=== PATIENT | female | born 1930 | race Caucasian/White ===

== ENCOUNTER 2016-10-07 14:10 | Observation (INO) | payer MEDICARE ==
[~2016-10-07] VITALS: Ht 172.7 cm; Wt 76.2 kg
[~2016-10-07 14:10] MED LIST: ACET500C11 PO; AMIT25TA9 PO; ASP81CT PO; Acetaminophen PO; CALC1CAP21 PO; CCLB10TRX; CHOL5000 PO; CLOP75TA PO; CLOP75TA28 PO; ENXP40I.4 SC; GLUC-113 PO; GLUC-96 PO; HYDR-3714 PO; LSNP10T PO; LUTE40CA PO; METO-272 PO; METO25TA2 PO; MTP50T PO; MULT-305 PO; MULT1CAP27 PO; NF-ESOM40C; NIAC750T15 PO; OMEG-12 PO; OXYC-12 PO; POLY17PO23 PO; PRV20T PO; Tramadol Hcl PO; VIT1TABL93 PO; [UNRECOGNIZED DRUG - OTHER]
--- NOTE | 2016-10-07 15:09 | ED Fall/Injury ---
General Chief Complaint: Trauma-Non Activation Stated Complaint: INJ TO HEAD & HIP/FALL AT [facility] Source: patient Exam Limitations: no limitations History of Present Illness Time seen by provider: 15:07 Initial Comments Brought to ER by physical therapy staff with reports of a fall [facility]. Patient was walking in a heel-to-toe fashion when she lost her balance falling towards the right side. She struck the right side of the forehead on the ground where there is now a large ecchymosis. Her only anticoagulant is aspirin. There was no loss of consciousness. She denies headache or nausea. She has no neck pain. She denies paresthesias in either of her arms. She reports pain to the right hip as well. Occurred: just prior to arrival Severity: moderate Injuries/Pain Location: head Context: lost balance Loss of Consciousness: no loss of consciousness Associated Symptoms (Fall): No Abdominal Pain, No Chest Pain, No Confusion, No Dizziness, No Headache, No Lightheadedness, No Muscle Spasms, No Nausea/Vomiting , No Neck Pain Allergies and Home Medications Allergies Coded Allergies: atenolol (Unverified Adverse Reaction, Mild, DOSEN'T WANT, 03/29/07) codeine (Verified Adverse Reaction, Mild, NAUSEA, HEADACHE, 04/05/07) PT STATES REACTION IS NAUSEA, HEADACHE, AND MILD CHEST PAIN diltiazem (Unverified Adverse Reaction, Mild, DOESN'T WANT, 03/29/07) indomethacin (Unverified Adverse Reaction, Mild, DOESN'T WANT, 03/29/07) propranolol (Unverified Adverse Reaction, Mild, DOESN'T WANT, 03/29/07) Uncoded Allergies: NITROPATCH (Adverse Reaction, Mild, DOESN'T WANT, 03/29/07) Home Medications Amitriptyline Hcl 25 Mg Tab, 25 MG PO HS, #30 Prescribed by: SHANTANU MURRAY on 09/02/142117 Aspirin 81 Mg Tablet, 81 MG PO DAILY, (Reported) Clopidogrel Bisulfate 75 Mg Tablet, 75 MG PO HS, (Reported) Lisinopril 10 Mg Tablet, 10 MG PO DAILY, (Reported) Metoprolol Tartrate 25 Mg Tablet, 50 MG PO DAILY, #30 Prescribed by: SHANTANU MURRAY on 11/12/14 1512 Multivits W-Ca,Fe,Other Min 1 Each Tablet, 1 TAB PO DAILY, #30 Prescribed by: ANNI THOMPSON on 10/24/14 185 Polyethylene Glycol 17 Gm Pack, 17 GM PO DAILY, (Reported) [Acetaminophen] 500 MG TAB, 1,000 MG PO TID PRN for MILD PAIN, #100 Prescribed by: SHANTANU MURRAY on 11/12/14 1512 [Tramadol Hcl] 50 MG TAB, 100 MG PO BID PRN for MODERATE TO SEVERE PAIN, #30 Prescribed by: SHANTANU MURRAY on 11/12/14 1512 Constitutional: see HPI Eyes: No Symptoms Reported Ears, Nose, Mouth, Throat: no symptoms reported Respiratory: no symptoms reported Cardiovascular: no symptoms reported Genitourinary: no symptoms reported Musculoskeletal: see HPI Skin: no symptoms reported Psychiatric/Neurological: No Symptoms Reported Past Vixjrdd-Uxfggl-Pkcwlv Hx Immunizations Up To Date Tetanus Booster (TDap): Unknown Date of Pneumonia Vaccine: Mar 11, 2011 Date of Influenza Vaccine: Feb 06, 2013 Surgeries Surgeries: Adenoidectomy, Appendectomy, Gallbladder, Tonsillectomy Respiratory Hx Respiratory Disorders: No Cardiovascular Hx Cardiac Disorders: Yes (HEART STENT X1 IN 2013, STENTS X2 IN LEGS) Cardiac Disorders: Hypertension Neurological Hx Neurological Disorders: No Reproductive System Hx Reproductive Disorders: No Genitourinary Hx Genitourinary Disorders: Yes (Frequency) Gastrointestinal Hx Gastrointestinal Disorders: No Gastrointestinal Disorders: Gastroesophageal Reflux, Chronic Constipation, Diverticulosis, Gall Bladder Disease Musculoskeletal Hx Musculoskeletal Disorders: Yes (BACK PROBLEMS) Musculoskeletal Disorders: Arthritis, Chronic Back Pain, Fractures Endocrine Hx Endocrine Disorders: No HEENT HX ENT Disorders: Yes (Cataract removed from right eye) HEENT Disorders: Cataract Loss of Vision: Bilateral Hearing Impairment: Hard of Hearing Cancer Hx Cancer: No Psychosocial Hx Psychiatric Problems: No Integumentary HX Skin/Integumentary Disorder: Yes (Shingles) Blood Transfusions Hx Blood Disorders: No Family Medical History Family Medial History: Arthritis 19 MOTHER, Onset:Unknown Diabetes mellitus 19 FATHER, Onset:Unknown Myocardial infarction 19 FATHER, Onset:Unknown 19 MOTHER, Onset:Unknown Physical Exam Vital Signs Vital Sign - Last 12Hours 10/07/16 10/07/16 15:05 15:10 Temp 98.2 Pulse 70 Resp 16 B/P (MAP) 164/71 Pulse Ox 98 O2 Delivery Room Air Capillary Refill : General Appearance: WD/WN, no apparent distress HEENT: PERRL/EOMI, normal ENT inspection, TMs normal, pharynx normal Neck: non-tender, full range of motion, No tender lateral, No tender midline, other (full range of motion of the neck, no tenderness to palpation.) Cardiovascular: regular rate, rhythm, no murmur Respiratory: no respiratory distress, no accessory muscle use Gastrointestinal: normal bowel sounds, non tender, soft Extremities: normal range of motion, non-tender Neurologic/Psychiatric: alert, normal mood/affect, oriented x 3 Skin: normal color, warm/dry Progress/Results/Core Measures Results/Orders My Orders Orders - PHOEBE PULIDO APRN Pelvis (10/07/16 15:01) Hip, Right, 2 Views (10/07/16 15:01) Ct Head/Cervical Spine Wo (10/07/16 15:06) Vital Signs/I&O Vital Sign - Last 12Hours 10/07/16 10/07/16 15:05 15:10 Temp 98.2 98.2 Pulse 70 70 Resp 16 16 B/P (MAP) 164/71 164/71 (102) Pulse Ox 98 98 O2 Delivery Room Air Diagnostic Imaging Diagonstic Imaging: Xray, CT Comments NAME: KYLEE VALDES MED REC#: [id number] PT STATUS: REG ER : 1930 PHYSICIAN: PHOEBE PULIDO APRN ADMIT DATE: 10/07/16/ER Draft Date of Exam:10/07/16 CT HEAD/CERVICAL SPINE WO PROCEDURE: CT head and CT cervical spine without contrast. TECHNIQUE: Multiple contiguous axial images were obtained through the brain and cervical spine without the use of intravenous contrast. Sagittal and coronal reformations through the cervical spine were then performed. INDICATION: Fall. FINDINGS: CT head: There are periventricular and deep white matter hypodensities compatible with chronic microvascular ischemic changes. No intracranial hemorrhage. No brain edema or mass effect is seen. There is no hydrocephalus. No extra-axial fluid collection is noted. There is, however, a small right scalp hematoma. The calvarium and the visualized portions of the paranasal sinuses and orbits appear unremarkable. CT cervical spine: There is anterior translation of C4 over C5 of about 2 mm. The facet joints demonstrate satisfactory alignment. There is good alignment of the lateral masses of C1 and C2 and atlanto-occipital joints. There is no significant widening of the predental space. There is a complex fracture of C2 vertebral body with significant healing at this point compared to 2015 exam. There is a particularly deformity seen along the posterior margin of C2 and at the junction of the odontoid process with the body and lateral masses of C2. No acute fracture is evident. The paraspinal soft tissues appear grossly unremarkable. Fibrotic changes in the lung apices seen. IMPRESSION: CT head: No intracranial hemorrhage. There is a small right frontal scalp hematoma. CT cervical spine: Old fracture of C2 with remaining deformity. No acute fracture is seen. Dictated on workstation # [id number] Dict: 10/07/16 1545 Trans: 10/07/16 1558 CHAD [id number] Interpreted by: KAYDEN MARROQUIN MD Electronically signed by: X-rays show osteoarthritis of the right hip but no fracture. Departure Impression Impression: Primary Impression: Scalp hematoma Disposition: 01 HOME, SELF-CARE Condition: Stable Departure-Patient Inst. Decision time for Depature: 16:03 Referrals: KAVITA PHILIP MD (PCP/Family) Primary Care Physician Patient Instructions: HEMATOMA Add. Discharge Instructions: 1. Return to ER for any concerns such as worsening headache, nausea, dizziness or confusion 2. Follow-up with your doctor next week 3. All discharge instructions reviewed with patient and/or family. Voiced understanding. PHOEBE PULIDO APRN Oct 07, 2016 15:09
--- NOTE | 2016-10-07 15:43 | Diagnostic Imaging Report ---
EXAMINATION: Two views of the right hip. INDICATION: Right hip pain after fall. FINDINGS: There are moderate to severe degenerative changes with prominent joint space loss, subchondral sclerosis and prominent osteophytes. The right SI joint demonstrates degenerative sclerosis. There is an SFA stent partially visualized in the upper right thigh. No fracture, dislocation or radiopaque foreign body is seen otherwise. IMPRESSION: Moderate to severe right hip with osteoarthritis. Dictated by: Dictated on workstation # [id number]
--- NOTE | 2016-10-07 15:45 | Diagnostic Imaging Report ---
EXAMINATION: AP view of the pelvis. INDICATION: Right hip pain. FINDINGS: No fracture, dislocation or radiopaque foreign body is seen. There is a moderate to severe osteoarthritis of the right hip with significant joint space loss and prominent osteophytes with subchondral sclerosis. Mild degenerative changes in the left hip joint are seen. Mild degenerative sclerotic changes in the SI joints are noted, bilaterally. Surgical sutures projecting over the lower right side of the abdomen are noted. Bilateral SFA stents and left common femoral artery stent are seen. IMPRESSION: Bilateral hip osteoarthritis, moderate to severe on the right and mild on the left. Dictated by: Dictated on workstation # [id number]
--- NOTE | 2016-10-07 15:59 | Diagnostic Imaging Report ---
PROCEDURE: CT head and CT cervical spine without contrast. TECHNIQUE: Multiple contiguous axial images were obtained through the brain and cervical spine without the use of intravenous contrast. Sagittal and coronal reformations through the cervical spine were then performed. INDICATION: Fall. FINDINGS: CT head: There are periventricular and deep white matter hypodensities compatible with chronic microvascular ischemic changes. No intracranial hemorrhage. No brain edema or mass effect is seen. There is no hydrocephalus. No extra-axial fluid collection is noted. There is, however, a small right scalp hematoma. The calvarium and the visualized portions of the paranasal sinuses and orbits appear unremarkable. CT cervical spine: There is anterior translation of C4 over C5 of about 2 mm. The facet joints demonstrate satisfactory alignment. There is good alignment of the lateral masses of C1 and C2 and atlanto-occipital joints. There is no significant widening of the predental space. There is a complex fracture of C2 vertebral body with significant healing at this point compared to 2015 exam. There is a particularly deformity seen along the posterior margin of C2 and at the junction of the odontoid process with the body and lateral masses of C2. No acute fracture is evident. The paraspinal soft tissues appear grossly unremarkable. Fibrotic changes in the lung apices seen. IMPRESSION: CT head: No intracranial hemorrhage. There is a small right frontal scalp hematoma. CT cervical spine: Old fracture of C2 with remaining deformity. No acute fracture is seen. Dictated by: Dictated on workstation # [id number]
--- NOTE | 2016-10-07 16:46 | Diagnostic Imaging Report ---
EXAMINATION: Two views of the right femur. INDICATION: Fall. The patient is unable to bear weight on the right leg. FINDINGS: There is moderate to severe osteoarthritis in the right hip. No fracture is seen. SFA stent is noted. The knee joint appears grossly unremarkable. IMPRESSION: Moderate to severe right hip osteoarthritis. Dictated by: Dictated on workstation # [id number]
--- NOTE | 2016-10-07 16:48 | Diagnostic Imaging Report ---
PROCEDURE: CT right lower extremity without contrast. TECHNIQUE: Axially acquired CT was obtained through the right lower extremity without intravenous contrast. Coronal and sagittal reformations were also performed. INDICATION: Fall. Severe pain with the patient unable to bear weight. FINDINGS: There is severe right hip osteoarthritis with complete loss of cartilage along the posterior aspect of the joint and laterally. Significant subchondral sclerosis and geodes are seen with osteophyte formation seen. There is no fracture, subluxation or dislocation evident. There is a proximal SFA stent seen. IMPRESSION: Severe right hip osteoarthritis. No fracture is seen. If severe pain persists, consider MRI evaluation. Dictated by: Dictated on workstation # [id number]
[2016-10-07] MEDS ORDERED: HYDROcodone/APAP 5 MG/325 MG (LORTAB) TAB PO ONE (17:30)
[2016-10-07 19:25] VITALS: BP 188/71
[2016-10-07] MEDS ORDERED: HYDROcodone/APAP 5 MG/325 MG (LORTAB) TAB PO PRN (19:30)
[2016-10-07] MEDS ORDERED: CATHETER FLUSH 10 ML SYR IV PRN (19:30)
[2016-10-07] MEDS ORDERED: IBUPROFEN TABLET 200 MG TAB PO PRN (20:00)
[2016-10-07] MEDS ORDERED: ACETAMINOPHEN 500 MG TAB (TYLENOL) PO PRN (20:00)
[2016-10-07] MEDS ORDERED: ALPRAZolam 0.25 MG (XANAX) TAB PO PRN (20:00)
[2016-10-07] MEDS ORDERED: amLODIPine 2.5MG (NORVASC) TAB PO NR (20:00)
[2016-10-07] MEDS ORDERED: ONDANSETRON 4 MG/2 ML (SDV) Z0FRAN IVP PRN (20:00)
[2016-10-07] MEDS ORDERED: fentaNYL INJECTION 100 MCG/2 ML AMP IVP PRN (20:00)
[2016-10-07 20:22] LABS: BASOPHILS # (AUTO) 0.1 10^3/uL (0.0-0.1); BASOPHILS % (AUTO) 0 % (0-10); EOSINOPHILS # (AUTO) 0.1 10^3/uL (0.0-0.3); EOSINOPHILS % (AUTO) 1 % (0-10); LYMPHOCYTES # (AUTO) 1.2 X 10^3 (1.0-4.0); LYMPHOCYTES % (AUTO) 6 % (12-44); MEAN CORPUSCULAR HEMOGLOBIN 30 PG (25-34); MEAN CORPUSCULAR HGB CONC 33 G/DL (32-36); MEAN CORPUSCULAR VOLUME 93 FL (80-99); MEAN PLATELET VOLUME 10.6 FL (7.4-10.4); MONOCYTES # (AUTO) 1.6 X 10^3 (0.0-1.0); MONOCYTES % (AUTO) 8 % (0-12); NEUTROPHILS # (AUTO) 17.3 X 10^3 (1.8-7.8); NEUTROPHILS % (AUTO) 86 % (42-75); PLATELET COUNT 234 10^3/uL (130-400); RED BLOOD COUNT 4.51 10^6/uL (4.35-5.85); RED CELL DISTRIBUTION WIDTH 12.9 % (10.0-14.5); WHITE BLOOD COUNT 20.3 10^3/uL (4.3-11.0)
[2016-10-07 20:38] LABS: BAND NEUTROPHILS 3 %; BASOPHILS % (MANUAL) 0 %; EOSINOPHILS % (MANUAL) 1 %; LYMPHOCYTES % (MANUAL) 7 %; NEUTROPHILS % (MANUAL) 81 %
[2016-10-07 20:44] LABS: ALANINE AMINOTRANSFERASE 18 U/L (0-55); ALBUMIN 4.3 GM/DL (3.2-4.5); ANION GAP 13 MMOL/L (5-14); ASPARTATE AMINO TRANSFERASE 13 U/L (5-34); BILIRUBIN,TOTAL 0.4 MG/DL (0.1-1.0); BLOOD UREA NITROGEN 26 MG/DL (7-18); BUN/CREATININE RATIO 33 (0-20); CARBON DIOXIDE 20 MMOL/L (21-32); CHLORIDE 107 MMOL/L (98-107); GFR ESTIMATED > 60; GLUCOSE 104 MG/DL (70-105); HEMOLYSIS 10 (0-29); ICTERUS 0.8 (0-1.9); LIPEMIA 10 (0-49); POTASSIUM 4.3 MMOL/L (3.6-5.0); SODIUM 140 MMOL/L (135-145); TOTAL PROTEIN 7.1 GM/DL (6.4-8.2)
[2016-10-07] MEDS: CATHETER FLUSH 10 ML SYR IV SCH ×2 (21:00→22:00)
[2016-10-08] VITALS: BP 160/88
[2016-10-08] MEDS: HYDROcodone/APAP 5 MG/325 MG (LORTAB) TAB PO PRN ×3 (00:58→12:50)
[2016-10-08 04:00] VITALS: BP 168/86
[2016-10-08] MEDS: CATHETER FLUSH 10 ML SYR IV SCH ×2 (06:20→15:01)
[2016-10-08 07:06] LABS: BASOPHILS # (AUTO) 0.1 10^3/uL (0.0-0.1); BASOPHILS % (AUTO) 1 % (0-10); EOSINOPHILS # (AUTO) 0.3 10^3/uL (0.0-0.3); EOSINOPHILS % (AUTO) 3 % (0-10); LYMPHOCYTES # (AUTO) 1.2 X 10^3 (1.0-4.0); LYMPHOCYTES % (AUTO) 10 % (12-44); MEAN CORPUSCULAR HEMOGLOBIN 30 PG (25-34); MEAN CORPUSCULAR HGB CONC 32 G/DL (32-36); MEAN CORPUSCULAR VOLUME 93 FL (80-99); MEAN PLATELET VOLUME 11.3 FL (7.4-10.4); MONOCYTES # (AUTO) 1.5 X 10^3 (0.0-1.0); MONOCYTES % (AUTO) 13 % (0-12); NEUTROPHILS # (AUTO) 8.6 X 10^3 (1.8-7.8); NEUTROPHILS % (AUTO) 74 % (42-75); PLATELET COUNT 228 10^3/uL (130-400); RED BLOOD COUNT 4.24 10^6/uL (4.35-5.85); WHITE BLOOD COUNT 11.6 10^3/uL (4.3-11.0)
[2016-10-08 07:31] LABS: ALANINE AMINOTRANSFERASE 16 U/L (0-55); ALBUMIN 3.9 GM/DL (3.2-4.5); ANION GAP 12 MMOL/L (5-14); ASPARTATE AMINO TRANSFERASE 13 U/L (5-34); BILIRUBIN,TOTAL 0.4 MG/DL (0.1-1.0); BLOOD UREA NITROGEN 22 MG/DL (7-18); BUN/CREATININE RATIO 30 (0-20); CALCIUM 8.9 MG/DL (8.5-10.1); CARBON DIOXIDE 22 MMOL/L (21-32); CHLORIDE 105 MMOL/L (98-107); CREATININE SERUM 0.73 MG/DL (0.60-1.30); GFR ESTIMATED > 60; GLUCOSE 99 MG/DL (70-105); HEMOLYSIS 10 (0-29); ICTERUS 0.7 (0-1.9); LIPEMIA 7 (0-49); POTASSIUM 4.2 MMOL/L (3.6-5.0); SODIUM 139 MMOL/L (135-145); TOTAL PROTEIN 6.7 GM/DL (6.4-8.2)
[2016-10-08 08:00] VITALS: BP 192/77
[2016-10-08] MEDS ORDERED: amLODIPine 5 MG (NORVASC) TAB PO SCH (09:00)
--- NOTE | 2016-10-08 09:35 | Physical Therapy Evaluation ---
PT Evaluation-General Medical Diagnosis Admission Date Oct 07, 2016 at 18:17 Medical Diagnosis: fall, scalp hematoma Onset Date: Oct 07, 2016 Therapy Diagnosis Therapy Diagnosis: general debility and weakness Height/Weight Height (Feet): 5 Height (Inches): 8.00 Weight (Pounds): 168 Weight (Ounces): 0.0 Precautions Precautions/Isolations: Fall Prevention, Standard Precautions Weight Bear Status Weight Bearing Restriction: Weight Bearing/Tolerated Location Restriction: LE Bilateral Referral Physician: Kaylie Reason for Referral: Evaluation/Treatment Medical History Pertinent Medical History: Arthritis, CAD, COPD, Diverticulitis, Fractures, GERD, HTN, [place], Neuropathy Additional Medical History cervical reconstruction within the past year Current History fall at [facility]; walking heel to toe fashion and LOB to right Reviewed History: Yes Social History Home: Single Level Current Living Status: Alone Entry Into Home: Stairs With Railing PT Steps Into Home: 3 Prior/Core FIM Prior Level of Function Functional Mcdowell Measure 0=Not Assessed/NA 4=Minimal Assistance 1=Total Assistance 5=Supervision or Setup 2=Maximal Assistance 6=Modified Mcdowell 3=Moderate Assistance 7=Complete Mcdowell Bed Mobility: 6 Transfers (B,C,W/C) (FIM): 6 Gait: 6 PT Evaluation-Current Subjective Patient rates right hip pain 5/10 with meds issued prior. Agrees to PT. Pain Numeric Pain Scale: 5-Moderate Pain Location: Right Location Body Site: Hip Pain Description: Acute Objective Patient Orientation: Normal For Age Problem Solving: Good ROM/Strength ROM Lower Extremities bilateral LE WNL Strenght Lower Extremities right knee flexion 3/5, extension 3/5; hip flexion 3/5; ankle dorsi/ plantarflexion 4/5 left knee flexion 4/5, extension 4/5; hip flexion 4/5; ankle dorsi/ plantarflexion 4/5 Integumentary/Posture Integumentary refer to nursing notes Bowel Incontinence: No Bladder Incontinence: No Posture flexed head posture secondary to cervical surgery Neuromuscular (Tone, Coordination, Reflexes) grossly intact Sensory Vision: Functional Hearing: Functional Sensation Right Lower Extremit: Impaired Sensation Left Lower Extremity: Impaired Transfers Functional Mcdowell Measure 0=Not Assessed/NA 4=Minimal Assistance 1=Total Assistance 5=Supervision or Setup 2=Maximal Assistance 6=Modified Mcdowell 3=Moderate Assistance 7=Complete Mcdowell Transfers (B, C, W/C) (FIM): 5 Scootin Rollin Supine to/from Sit: 5 Sit to/from Stand: 5 Gait Mode of Locomotion: Walk Anticipated Mode of Locomotion: Walk Gait (FIM): 5 Distance: 200' x 2 Gait Level of Assist: 5 Gait Assistive Device: FWW Comments/Gait Description very slow, antalgic, functional Stairs Stairs (FIM): 2 #of Steps: 3 Level of Assist: 4 Assistive Device: Walker Balance Sitting Static: Normal Sitting Dynamic: Normal Standing Static: Normal Standing Dynamic: Normal Assessment/Needs 86 y.o. female, s/p fall at [facility], will benefit from short term skilled PT to address functional strength and mobility to improve current LOF and to safely return to home at maximum LOF. Rehab Potential: Good PT Flare Maker Goals Assisted Goals PT Flare Maker Goals Time Frame: Oct 15, 2016 Transfers (B,C,W/C) (FIM): 6 Gait (FIM): 6 Gait distance (FIM): 3=150 ft Gait Level of Assist: 6 Gait Assistive Device: FWW Stairs (FIM): 2 # of Steps: 3 Stairs Level Of Assist: 5 PT Plan Problem List Problem List: Activity Tolerance, Functional Strength, Gait Treatment/Plan Treatment Plan: Continue Plan of Care Treatment Plan: Bed Mobility, Education, Functional Activity [place], Functional Strength, Gait, Safety, Therapeutic Exercise, Transfers Treatment Duration: Oct 15, 2016 # of days/week 6 Visits Per Week: 11 Pt/Family Agrees w/Plan: Yes Safety Risks/Education Patient Education: Gait Training, Transfer Techniques, Steps, Safety Issues Teaching Recipient: Patient Teaching Methods: Demonstration, Discussion Response to Teaching: Verbalize Understanding, Return Demonstration Discharge Recommendations Therapy D/C Recommendations: Physical Therapy Home Care Time/GCodes Time In: 810 Time Out: 850 Total Billed Treatment Time: 40 Total Billed Treatment 1 visit EVHighC 25 min FA 15 min G Codes Necessary: Yes PT/OT Therapy GCodes Therapy Functional Limitation: Physical Therapy Test(s)/Tool used to determine: Level of Assistance Scale Functional Limitation-Current Charge Code: MOBCUR Modifier: CJ Functional Limitation-Goal Charge Code: MOBGOAL Modifier: BEBA CAMARGO PT Oct 08, 2016 09:35
--- NOTE | 2016-10-08 10:33 | History & Physical-Hospitalist ---
HPI History of Present Illness: HPI/Chief Complaint CC: Fall on Left Hip HPI: This is a 86 yoWF who was at the [facility] when she fell and injured her left hip. Pt cannot walk and lives at home alone. 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 The pain radiates from her knee to her hip CT was discussed and is normal Pt rates her pain at 8.5 Pt confirms Lisinopril and Aspirin and does not like morphine Pt feels that her walk with PT went well and she is glad she did not break anything Pt confirms living in a house and she takes about three steps up to get in. Pt states that she lives alone; her family is in [place] and [place]. Physical exam stable. Lungs sound perfect. Pt had a bit of difficulty leaning up for examination. Scribed by Flora Burnett under the direct supervision of Dr. Lott. Source: patient Exam Limitations: no limitations Date Seen 10/08/16 Time Seen by Provider: 09:45 Attending Physician Tashia Lott DO PCP Venkatesh Dobbins MD Referring Physician Date of Admission Oct 07, 2016 at 18:17 Home Medications & Allergies Home Medications Reviewed patient Home Medication Reconciliation Form Allergies Allergies Coded Allergies atenolol (Unverified Adverse Reaction, Mild, DOSEN'T WANT, 03/29/07) codeine (Verified Adverse Reaction, Mild, NAUSEA, HEADACHE, 04/05/07) PT STATES REACTION IS NAUSEA, HEADACHE, AND MILD CHEST PAIN diltiazem (Unverified Adverse Reaction, Mild, DOESN'T WANT, 03/29/07) indomethacin (Unverified Adverse Reaction, Mild, DOESN'T WANT, 03/29/07) propranolol (Unverified Adverse Reaction, Mild, DOESN'T WANT, 03/29/07) morphine (Verified Adverse Reaction, Unknown, 10/08/16) reports hearing things-reports she does not want to ever take. haS TOLERATED HYDROCODONE Uncoded Allergies NITROPATCH ( Adverse Reaction, Mild, DOESN'T WANT, 03/29/07) Past Sjuaumq-Yafetf-Ermvgx Hx Patient Social History Marrital Status: Employed/Student: retired Alcohol Use: Denies Use Recreational Drug Use: No Smoking Status: Never a Smoker Physical Abuse Screen: No Sexual Abuse: No Recent Foreign Travel: No Contact w/other who traveled: No Recent Hopitalizations: No Recent Infectious Disease Expo: No Immunizations Up To Date Tetanus Booster (TDap): Unknown Date of Pneumonia Vaccine: Nov 23, 2013 Date of Influenza Vaccine: Feb 06, 2013 Seasonal Allergies Seasonal Allergies: No Surgeries HX Surgeries: Yes Surgeries: Adenoidectomy, Appendectomy, Cardiac, Coronary Stent, Gallbladder, Orthopedic, Tonsillectomy, Vascular Surgery Respiratory Hx Respiratory Disorders: No Cardiovascular Hx Cardiovascular Disorders: Yes (HEART STENT X1 IN 2014, STENTS X2 IN LEGS) Cardiac Disorders: Coronary Artery Disease, Hypertension, Peripheral Vascular Neurological Hx Neurological Disorders: No Reproductive System : No Hx Reproductive Disorders: No Sexually Transmitted Disease: No HIV/AIDS: No Female Reproductive Disorders: Denies Genitourinary Hx Genitourinary Disorders: Yes (Frequency) Genitourinary Disorders: UTI-Chronic Gastrointestinal Hx Gastrointestinal Disorders: Yes Gastrointestinal Disorders: Gastroesophageal Reflux, Chronic Constipation, Diverticulosis, Gall Bladder Disease Musculoskeletal Hx Musculoskeletal Disorders: Yes (BACK PROBLEMS) Musculoskeletal Disorders: Arthritis, Chronic Back Pain, Fractures Endocrine Hx Endocrine Disorders: No HEENT HX ENT Disorders: Yes (Cataract removed from right eye) HEENT Disorders: Cataract Loss of Vision: Bilateral Hearing Impairment: Hard of Hearing Cancer Hx Cancer: No Psychosocial Hx Psychiatric Problems: No Integumentary HX Skin/Integumentary Disorder: Yes (Shingles) Blood Transfusions Hx Blood Disorders: No Family Medical History Family Hx: Arthritis 19 MOTHER, Onset:Unknown Diabetes mellitus 19 FATHER, Onset:Unknown Myocardial infarction 19 FATHER, Onset:Unknown 19 MOTHER, Onset:Unknown Review of Systems Date Seen by Provider: Oct 08, 2016 Time Seen by Provider: 09:45 Constitutional: see HPI, weakness EENTM: no symptoms reported Respiratory: no symptoms reported Cardiovascular: no symptoms reported Gastrointestinal: no symptoms reported Musculoskeletal: joint pain Skin: no symptoms reported Psychiatric/Neurological: No Symptoms Reported All Other Systems Reviewed Negative Unless Noted: Yes Physical Exam Physical Exam Vital Signs Vital Sign - Last 12Hours 10/07/16 10/07/16 15:05 15:10 Temp 98.2 Pulse 70 Resp 16 B/P (MAP) 164/71 Pulse Ox 98 O2 Delivery Room Air Capillary Refill : Less Than 3 Seconds General Appearance: No Apparent Distress, WD/WN, Chronically ill Eyes: Bilateral Eye Normal Inspection, Bilateral Eye PERRL HEENT: PERRL/EOMI, Normal ENT Inspection, Pharynx Normal Neck: Full Range of Motion, Normal Inspection, Non Tender, Supple, Carotid Bruit Respiratory: Chest Non Tender, Lungs Clear, Normal Breath Sounds, No Accessory Muscle Use, No Respiratory Distress Cardiovascular: Regular Rate, Rhythm, No Edema, No Gallop, No JVD, No Murmur, Normal Peripheral Pulses Gastrointestinal: Normal Bowel Sounds, No Organomegaly, No Pulsatile Mass, Non Tender, Soft Back: Normal Inspection, No CVA Tenderness, No Vertebral Tenderness Extremity: Normal Capillary Refill, Normal Inspection, Normal Range of Motion ( some decreased range of motion of left hip), Non Tender, No Calf Tenderness, No Pedal Edema Neurologic/Psychiatric: Alert, Oriented x3, No Motor/Sensory Deficits, Normal Mood/Affect Skin: Normal Color, Warm/Dry Lymphatic: No Adenopathy Results Results/Procedures Lab Laboratory Tests 10/07/16 20:10 10/08/16 06:13 Assessment/Plan Admission Diagnosis Assessment: Fall with subsequent hip pain unable to ambulate and lives alone Hypertension [id number] Leukocytosis due to stress response now nearly resolved 11,000 Chronic constipation Assessment and Plan Plan: In-pt rehab eval Reconcile home meds completed SCD's BP management Clinical Quality Measures DVT/VTE Risk/Contraindication: Risk Factor Score Per Nursin RFS Level Per Nursing on Admit: 2=Moderate TASHIA LOTT DO Oct 08, 2016 10:33
[2016-10-08] MEDS ORDERED: CYAN5000 SL (10:35)
[2016-10-08] MEDS ORDERED: LUTE40CA PO (10:35)
[2016-10-08] MEDS ORDERED: ASPI325T32 PO (10:35)
[2016-10-08] MEDS ORDERED: METO-272 PO (10:35)
[2016-10-08] MEDS ORDERED: LISI10TA2 PO (10:35)
[2016-10-08] MEDS ORDERED: GLUC-203 PO (10:35)
[2016-10-08] MEDS ORDERED: DOCU100C37 PO (10:35)
[2016-10-08] MEDS ORDERED: AMIT25TA9 PO (10:35)
[2016-10-08] MEDS ORDERED: MULT1TAB69 PO (10:35)
[2016-10-08] MEDS ORDERED: POLYETHYLENE GLYCOL 17 GM (MIRALAX) PACK PO PRN (10:45)
[2016-10-08 12:00] VITALS: BP 141/65
[2016-10-08 13:07] LABS: BILIRUBIN,URINE NEGATIVE (NEGATIVE); KETONES,URINE NEGATIVE (NEGATIVE); LEUKOCYTE ESTERASE ,URINE 3+ (NEGATIVE); NITRITE,URINE NEGATIVE (NEGATIVE); PH,URINE 6 (5-9); PROTEIN,URINE 1+ (NEGATIVE); UROBILINOGEN,URINE NORMAL (NORMAL)
--- NOTE | 2016-10-08 14:23 | Occupational Therapy Eval ---
OT Evaluation-General/PLF Medical Diagnosis Admission Date Oct 07, 2016 at 18:17 Medical Diagnosis: fall, scalp hematoma Onset Date: Oct 07, 2016 Therapy Diagnosis Therapy Diagnosis: weakness, decr functional mobility Height/Weight Height (Feet): 5 Height (Inches): 8.00 Weight (Pounds): 168 Weight (Ounces): 0.0 Precautions Precautions/Isolations: Fall Prevention, Standard Precautions Safety Interventions: Bed Exit Alarm Weight Bear Status Weight Bearing Restriction: Weight Bearing/Tolerated Location Restriction: LE Bilateral Referral Physician: Kaylie Referral Reason: Evaluation/Treatment Medical History Pertinent Medical History: Arthritis, CAD, COPD, Diverticulitis, Fractures, GERD, HTN, [place], Neuropathy Additional Medical History Cardiac stent 2014, leg stents x 2, chronic constipation, diverticulosis, gall bladder disease, chronic back pain, R eye cataract removal. Fall 2 years ago with cervical reconstruction. Pt had reported decreased peripheral vision on L side from childhood. Hard of hearing Current History [facility]. Head contusion, R hip pain. Scalp hematoma Reviewed History: Yes Social History Home: Single Level Current Living Status: Alone Entry Into Home: Stairs With Railing Steps Into Home: 3 ADL-Prior Level of Function ADL PLOF Comments Pt reported that she has been able to manage all of her basic self care needs prior to fall. She walked at home with no devices and was driving. 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 Pain reported 7-8 out of 10 but she just had pain meds. Pain not described. Appearance Alert, cooperative. Mental Status/Objective Patient Orientation: Person, Place, Time, Situation Attachments: Saline Lock, SCD's Current Glasses/Contacts: Yes Hand Dominance: Right Upper Extremity ROM L UE grossly WFL. R UE limited with shoulder flex to about 0 degrees. Rest is WFL Upper Extremity Strength Grossly 4/5 bilat except R shoulder 2/5 in flex/abd ADL-Treatment ADL-Current Pt reported she has been able to feed herself. She needed just a little help to get her shoulders off the bed and moved very slowly, inching feet toward EOB. She stood with SBA for safety, FWW. Pt walked very slowly, with small steps, SBA , FWW to bathroom. OT placed BSC over toilet because pt reported it was very difficult getting off taller toilet, vince with grab bar only on R side. She was able to manage clothing and hygiene with SBA, FWW. Pt walked to sink SBA, FWW to wash hands and brush teeth with SBA. Walked slowly and very carefully SBA, FWW to recliner and was able to sit SBA. Pt needed help to raise up the leg rest due to decreased functional use R shoulder. Pt left up in recliner, all needs met. Functional [place] Measure 0=Not Assessed/NA 4=Minimal Assistance 1=Total Assistance 5=Supervision or Setup 2=Maximal Assistance 6=Modified [place] 3=Moderate Assistance 7=Complete IndependenceIRFPAI Quality Coding Scale 6 Independent with activity with or without an assistive device 5 Patient requires set up or clean up by helper. Patient completes activity by themselves 4 Supervision or touching assist (CGA). [place] provide cues , steadying assist 3 The helper provides less than half the effort to complete the activity 2 The helper provides more than half the effort to complete the activity 1 Dependent. The helper does all the effort to complete an activity 7 Patient refused to complete or attempt activity 9 The patient did not perform the activity before the current illness or injury 88 Not attempted due to Medical conditions or safety concerns Grooming (FIM): 5 Toileting (FIM): 5 Transfers (B, C, W/C) (FIM): 4 Toilet/Commode Transfer (FIM): 5 All ADLs took longer than usual due to patient report of pain "right in my hip joint". Education OT Patient Education: Modified ADL techniques, Purpose of tx/functional activities, Rehab process, Transfer techniques, Use of adapted equipment Teaching Recipient: Patient Teaching Methods: Demonstration, Discussion Response to Teaching: Verbalize Understanding, Return Demonstration OT Shelter Goals Gill Box Fixer Goals Time Frame: Oct 15, 2016 Eating (FIM): 6 Grooming(FIM): 6 Bathing(FIM): 5 Upper Body Dressing(FIM): 5 Lower Body Dressing(FIM): 5 Toileting(FIM): 6 Toilet/Commode Transfer(FIM): 6 Shower Transfer(FIM): 5 Additional Goals: 2-Verbalize Understanding, 3-ImproveStrength/Desean 1=Demonstrate adherence to instructed precautions during ADL tasks. 2=Patient will verbalize/demonstrate understanding of assistive devices/ modifications for ADL. 3=Patient will improve strength/tolerance for activity to enable patient to perform ADL's. OT Education/Plan Problem List/Assessment Assessment: Decreased UE Strength, Dependent Transfers, Impaired Funct Balance , Impaired Self-Care Skills Pt would benefit from skilled OT to increase her independence in basic self care to allow her to safely return to her home to live safely Discharge Recommendations Plan/Recommendations: Continue POC Target Placement back home Treatment Plan/Plan of Care Treatment,Training & Education: Yes Patient would benefit from OT for education, treatment and training to promote independence in ADL's, mobility, safety and/or upper extremity function for ADL' s. Plan of Care: ADL Retraining, Functional Mobility, UE Funct Exercise/Act, UE Neuromus Re-Ed/Coord Treatment Duration: Oct 15, 2016 # of days/week 5 Visits Per Week: 5 Agreement: Yes Rehab Potential: Good Time/GCodes Start Time: 12:56 Stop Time: 13:30 Total Time Billed (hr/min): 34 Billed Treatment Time visit, 15 minutes evaluation, 19 minutes ADL PT/OT Therapy GCodes Therapy Functional Limitation: Physical Therapy Test(s)/Tool used to determine: Level of Assistance Scale Functional Limitation-Current Charge Code: MOBCUR Modifier: CJ Functional Limitation-Goal Charge Code: MOBGOAL Modifier: ZEINA ACUNA OT Oct 08, 2016 14:23
[2016-10-08] MEDS ORDERED: AMLO5TAB2 PO (14:56)
[2016-10-08] MEDS ORDERED: HYDR-3812 PO (14:56)
[2016-10-08] MEDS ORDERED: ALPR0.254 PO (14:56)
[2016-10-08] MEDS ORDERED: ONDA4VIA28 IVP (14:56)
[2016-10-08] MEDS ORDERED: FNT.05A2 IVP (14:56)
[2016-10-08] MEDS ORDERED: ACET-77 PO (14:56)
--- NOTE | 2016-10-08 15:07 | Physical Therapy Daily Note ---
PT Daily Note-Current Subjective Patient has increased c/o right hip/groin pain 8/10 with meds issued. Pain Numeric Pain Scale: 8 Location: Right Location Body Site: Hip Pain Description: Acute Mental Status Patient Orientation: Normal For Age Transfers Functional [place] Measure 0=Not Assessed/NA 4=Minimal Assistance 1=Total Assistance 5=Supervision or Setup 2=Maximal Assistance 6=Modified [place] 3=Moderate Assistance 7=Complete IndependenceIRFPAI Quality Coding Scale 6 Independent with activity with or without an assistive device 5 Patient requires set up or clean up by helper. Patient completes activity by themselves 4 Supervision or touching assist (CGA). [place] provide cues , steadying assist 3 The helper provides less than half the effort to complete the activity 2 The helper provides more than half the effort to complete the activity 1 Dependent. The helper does all the effort to complete an activity 7 Patient refused to complete or attempt activity 9 The patient did not perform the activity before the current illness or injury 88 Not attempted due to Medical conditions or safety concerns Transfers (B, C, W/C) (FIM): 5 Scootin Sit to/from Stand: 5 Gait Training Gait (FIM): 5 Distance (FIM): 3=150 ft Distance: 200' Gait Level of Assist: 5 Gait Persons Needed: 1 Gait Assistive Device: FWW very slow, step to gait sequence Exercises Seated Therapy Exercises: Ankle pumps, Long arc quads, Hip flexion Seated Reps: 20 (to increase mobility to improve gait) Assessment Patient progressing slowly. Patient was modified independent to independent PLOF with gross motor skills. From a PT standpoint, patient would benefit from a short stay in ARU to improve functional mobility to return safely to home. PT Hand Bulldozer Goals Care Home Goals PT Hand Bulldozer Goals Time Frame: Oct 15, 2016 Transfers (B,C,W/C) (FIM): 6 Gait (FIM): 6 Gait distance (FIM): 3=150 ft Gait Level of Assist: 6 Gait Assistive Device: FWW Stairs (FIM): 2 # of Steps: 3 Stairs Level Of Assist: 5 PT Plan Treatment/Plan Treatment Plan: Continue Plan of Care Treatment Plan: Bed Mobility, Education, Functional Activity [place], Functional Strength, Gait, Safety, Therapeutic Exercise, Transfers Treatment Duration: Oct 15, 2016 Visits Per Week: 11 Discharge Recommendations Therapy D/C Recommendations: Acute Rehab Time/GCodes Time In: 1335 Time Out: 1405 Total Billed Treatment Time: 30 Total Billed Treatment 1 visit EX 10 min GT 20 min PT/OT Therapy GCodes Therapy Functional Limitation: Physical Therapy Test(s)/Tool used to determine: Level of Assistance Scale Functional Limitation-Current Charge Code: MOBCUR Modifier: CJ Functional Limitation-Goal Charge Code: MOBGOAL Modifier: BEBA CAMARGO PT Oct 08, 2016 15:07
--- NOTE | 2016-10-08 15:16 | Physical Therapy Daily Note ---
PT Daily Note-Current Transfers Functional [place] Measure 0=Not Assessed/NA 4=Minimal Assistance 1=Total Assistance 5=Supervision or Setup 2=Maximal Assistance 6=Modified [place] 3=Moderate Assistance 7=Complete IndependenceIRFPAI Quality Coding Scale 6 Independent with activity with or without an assistive device 5 Patient requires set up or clean up by helper. Patient completes activity by themselves 4 Supervision or touching assist (CGA). [place] provide cues , steadying assist 3 The helper provides less than half the effort to complete the activity 2 The helper provides more than half the effort to complete the activity 1 Dependent. The helper does all the effort to complete an activity 7 Patient refused to complete or attempt activity 9 The patient did not perform the activity before the current illness or injury 88 Not attempted due to Medical conditions or safety concerns PT Fiberglass Technician Goals Fiberglass Technician Goals PT Residential Goals Time Frame: Oct 15, 2016 Transfers (B,C,W/C) (FIM): 6 Gait (FIM): 6 Gait distance (FIM): 3=150 ft Gait Level of Assist: 6 Gait Assistive Device: FWW Stairs (FIM): 2 # of Steps: 3 Stairs Level Of Assist: 5 PT Plan Treatment/Plan Treatment Plan: Discontinue PT Treatment Plan: Bed Mobility, Education, Functional Activity [place], Functional Strength, Gait, Safety, Therapeutic Exercise, Transfers Treatment Duration: Oct 15, 2016 Visits Per Week: 11 Time/GCodes Time In: 316 Time Out: 317 Total Billed Treatment Time: 1 Total Billed Treatment dc PT/OT Therapy GCodes Therapy Functional Limitation: Physical Therapy Test(s)/Tool used to determine: Level of Assistance Scale Functional Limitation-Current Charge Code: MOBCUR Modifier: CJ Functional Limitation-Goal Charge Code: MOBGOAL Modifier: CI Functional Limitation-D/C Charge Codes: MOBDC Modifier: BEBA CHOE PT Oct 08, 2016 15:16
[2016-10-08 15:45] VITALS: BP 141/65
[2016-10-08] MEDS ORDERED: meTOproloL SUCCINATE 50 MG (TOPROL XL) TAB PO SCH (21:00)
[2016-10-08] MEDS ORDERED: AMITRIPTYLINE 25 MG (ELAVIL) TAB PO SCH (21:00)
[2016-10-09] MEDS ORDERED: ASPIRIN E.C. 325 MG (ECOTRIN) TABLET PO SCH (09:00)
[2016-10-09] MEDS ORDERED: lisINopril 10 MG (PRINIVIL) TAB PO SCH (09:00)
[2016-10-09] MEDS ORDERED: MULTIVIT W/MINERALS TAB (THERAGRAN M) PO SCH (09:00)
[2016-10-09] MEDS ORDERED: DOCUSATE SODIUM 100 MG (COLACE) CAP PO SCH (09:00)
== END 2016-10-08 15:45 ==
LOC: EDUNIT# 14:10 → ER 14:13 → 4TH 18:17 → UNDOADMOB 18:17 → 4TH 19:20 → UNDODISOB 10-08 15:45
PROVIDERS: ADMIT Internal Medicine; ATTEND Internal Medicine
DX: S79.912A Unspecified injury of left hip, initial encounter (principal); S00.83XA Contusion of other part of head, initial encounter; I10 Essential (primary) hypertension; K21.9 Gastro-esophageal reflux disease without esophagitis; K59.09 Other constipation; D72.829 Elevated white blood cell count, unspecified; W19.XXXA Unspecified fall, initial encounter; Y92.238 Other place in hospital as the place of occurrence of the external cause
CPT/HCPCS: 36415; 70450; 72125; 72170; 73502; 73552; 73700; 80053; 81000; 85007; 85025; 85027; 87088; 99282; 99284; G0378

== ENCOUNTER 2016-10-08 15:23 | Inpatient (IN) | payer MEDICARE ==
[~2016-10-08] VITALS: Ht 172.7 cm; Wt 76.2 kg
[~2016-10-08 15:23] MED LIST changes: +ACET-77 PO; +ALPR0.254 PO; +AMLO5TAB2 PO; +ASPI325T32 PO; +CYAN5000 SL; +DOCU100C37 PO; +FNT.05A2 IVP; +GLUC-203 PO; +HYDR-3812 PO; +LISI10TA2 PO; +MULT1TAB69 PO; +ONDA4VIA28 IVP
[2016-10-08 16:00] VITALS: BP 132/72
[2016-10-08] MEDS ORDERED: ONDANSETRON 4 MG (ZOFRAN) ORAL DISSOLVE TAB PO PRN (16:00)
[2016-10-08] MEDS ORDERED: ALPRAZolam 0.25 MG (XANAX) TAB PO PRN (16:00)
--- NOTE | 2016-10-08 16:06 | Physical Therapy Evaluation ---
PT Evaluation-General Medical Diagnosis Admission Date October 08, 2016 Medical Diagnosis: fall/debility Onset Date: Oct 07, 2016 Therapy Diagnosis Therapy Diagnosis: generalized weakness/debility Height/Weight Height (Feet): 5 Height (Inches): 8.00 Weight (Pounds): 168 Weight (Ounces): 0.0 Precautions Precautions/Isolations: Standard Precautions Referral Physician: Gerald Reason for Referral: Evaluation/Treatment Medical History Pertinent Medical History: Arthritis, CAD, COPD, Diverticulitis, Fractures, GERD, HTN, [place], Neuropathy Additional Medical History cervical reconstruction Current History fall at [facility] resulting in right hip/groin pain Reviewed History: Yes Social History Home: Single Level Current Living Status: Alone Entry Into Home: Stairs With Railing PT Steps Into Home: 3 Prior/Core FIM Prior Level of Function Functional [place] Measure 0=Not Assessed/NA 4=Minimal Assistance 1=Total Assistance 5=Supervision or Setup 2=Maximal Assistance 6=Modified [place] 3=Moderate Assistance 7=Complete [place] Bed Mobility: 6 Transfers (B,C,W/C) (FIM): 6 Gait: 6 PT Evaluation-Current Subjective Patient c/o 8/10 right hip/groin pain. Pain Numeric Pain Scale: 8 Location: Right Location Body Site: Hip Pain Description: Acute Pt/Family Goals return to home at [facility] Objective Patient Orientation: Normal For Age Problem Solving: Good ROM/Strength ROM Lower Extremities bilateral LE WFL Strenght Lower Extremities right knee flexion 3/5, extension 3/5; hip flexion 3/5; ankle dorsi/ plantarflexion 4/5 left knee flexion/extension 4/5; hip flexion 4/5; ankle dorsi/plantarflexion 4/5 Integumentary/Posture Integumentary refer to nursing notes Bowel Incontinence: No Bladder Incontinence: No Posture cervical flexion Neuromuscular (Tone, Coordination, Reflexes) slightly diminished coordination this p.m. Sensory Vision: Wears Glasses Hearing: Functional Sensation Right Lower Extremit: Impaired Sensation Left Lower Extremity: Impaired Transfers Functional [place] Measure 0=Not Assessed/NA 4=Minimal Assistance 1=Total Assistance 5=Supervision or Setup 2=Maximal Assistance 6=Modified [place] 3=Moderate Assistance 7=Complete IndependenceIRFPAI Quality Coding Scale 6 Independent with activity with or without an assistive device 5 Patient requires set up or clean up by helper. Patient completes activity by themselves 4 Supervision or touching assist (CGA). [place] provide cues , steadying assist 3 The helper provides less than half the effort to complete the activity 2 The helper provides more than half the effort to complete the activity 1 Dependent. The helper does all the effort to complete an activity 7 Patient refused to complete or attempt activity 9 The patient did not perform the activity before the current illness or injury 88 Not attempted due to Medical conditions or safety concerns Transfers (B, C, W/C) (FIM): 4 Scootin Rollin Roll Left to Right (QC): 5 Supine to/from Sit: 4 Sit to/from Stand: 4 Sit to Lying (QC): 4 Lying to Sitting/Side of Bed(Q: 4 Sit to Stand (QC): 4 Chair/Gtj-xi-Tgvec Xfer(QC): 4 Car Transfer (QC): 88 (due to right groin pain) Gait Does the Patient Walk?: Yes Mode of Locomotion: Walk Anticipated Mode of Locomotion: Walk Gait (FIM): 5 Distance (FIM): 3=150 ft Walk 10 feet (QC): 4 Walk 50 ft with 2 Turns(QC): 4 Walk 150 ft (QC): 5 Walking 10ft/uneven surface-QC: 4 Distance: 150' Gait Level of Assist: 5 Gait Persons Needed: 1 Gait Assistive Device: FWW Comments/Gait Description very slow, antalgic right LE Stairs Stairs (FIM): 1 #of Steps: 1 Level of Assist: 4 1 Step (curb) (QC): 4 4 Steps (QC): 88 Assistive Device: Walker 12 Steps (QC): 9 patient is very fatigued this p.m. and unable to perform 4 steps. PT to address during treatment sessions. Balance Sitting Static: Normal Sitting Dynamic: Normal Standing Static: Normal Standing Dynamic: Normal Assessment/Needs 86 y.o. female, s/p fall at [facility] walking, will benefit from skilled PT to address functional strength and mobility to improve current LOF and to safely return to home at maximum LOF. Patient is limited due to right hip pain. Rehab Potential: Good PT Mcc Goals Hardware Engineering Manager Goals PT Hardware Engineering Manager Goals Time Frame: Oct 29, 2016 Transfers (B,C,W/C) (FIM): 6 Sit to Lying (QC): 6 Lying-Sitting on Side/Bed(QC): 6 Sit to Stand (QC): 6 Rollin Roll Left to Right (QC): 6 Chair/Nub-vn-Jtbpt Xfer(QC): 6 Car Transfer (QC): 6 Does the Patient Walk: Yes Gait (FIM): 6 Gait distance (FIM): 3=150 ft Distance: 250' Walk 10 feet (QC): 5 Walk 10ft-Uneven Surface(QC): 5 Walk 50ft with 2 Turns (QC): 5 Walk 150 ft (QC): 5 Gait Level of Assist: 6 Gait Assistive Device: FWW Does the Pt use WC or Scooter?: No Stairs (FIM): 2 # of Steps: 4 1 Step (curb) (QC): 5 4 Steps (QC): 5 12 Steps (QC): 9 Stairs Level Of Assist: 6 Picking up an Object (QC): 5 PT Plan Problem List Problem List: Activity Tolerance, Functional Strength, Gait, Transfer, Bed Mobility Treatment/Plan Treatment Plan: Continue Plan of Care Treatment Plan: Bed Mobility, Education, Functional Activity [place], Functional Strength, Group Therapy, Gait, Safety, Therapeutic Exercise, Transfers Treatment Duration: Oct 29, 2016 # of days/week 6 Visits Per Week: 11 Minutes/Day (M-F): 60-90 Minutes/Day (Sat/Rodriguez): PRN Pt/Family Agrees w/Plan: Yes Safety Risks/Education Patient Education: Safety Issues Teaching Recipient: Patient Teaching Methods: Discussion Response to Teaching: Verbalize Understanding Discharge Recommendations Therapy D/C Recommendations: Home Independently, Physical Therapy Home Care Time/GCodes Time In: 1540 Time Out: 1400 Total Billed Treatment Time: 20 Total Billed Treatment 1 visit EVMod 20 min BEBA ATKINS PT Oct 08, 2016 16:06
[2016-10-08] MEDS ORDERED: NON-FORMULARY MEDICATION 1 EA EA (Cyanocobalamin (Vitamin B-12) (Vitamin B-12) 5,000 MCG) SL SCH (16:15)
[2016-10-08 17:45] VITALS: BP 154/75
[2016-10-08] MEDS: IBUPROFEN TABLET 200 MG TAB PO PRN (19:53)
[2016-10-08] MEDS: POLYETHYLENE GLYCOL 17 GM (MIRALAX) PACK PO PRN (21:39)
[2016-10-08] MEDS: meTOproloL SUCCINATE 50 MG (TOPROL XL) TAB PO SCH (21:40)
[2016-10-08] MEDS: AMITRIPTYLINE 25 MG (ELAVIL) TAB PO SCH (21:40)
[2016-10-09] MEDS: MULTIVIT W/MINERALS TAB (THERAGRAN M) PO SCH (05:35)
[2016-10-09] MEDS: IBUPROFEN TABLET 200 MG TAB PO PRN ×2 (05:36→20:40)
[2016-10-09 05:53] VITALS: BP 147/76
[2016-10-09] MEDS: lisINopril 10 MG (PRINIVIL) TAB PO SCH (08:29)
[2016-10-09] MEDS: ASPIRIN E.C. 325 MG (ECOTRIN) TABLET PO SCH (08:29)
[2016-10-09] MEDS: amLODIPine 5 MG (NORVASC) TAB PO SCH (08:29)
[2016-10-09] MEDS: DOCUSATE SODIUM 100 MG (COLACE) CAP PO SCH (08:29)
[2016-10-09] MEDS ORDERED: NON-FORMULARY MEDICATION 1 EA EA (Glucosam/Chond/Hyalu/Cf Borate (Move Free Joint Health T PO SCH (09:00)
[2016-10-09] MEDS ORDERED: NON-FORMULARY MEDICATION 1 EA EA (Lutein 40 MG) PO SCH (09:00)
--- NOTE | 2016-10-09 10:00 | Physical Therapy Daily Note ---
PT Daily Note-Current Subjective Pt. agrees to Rx. States she feels confident she will meet her goals here on rehab. States she has pain in right hip at 7/10 but later states with activity this decreased to 5/10. Pt. state she sleeps in her recliner at home secondary to back pain in supine position. Pain Numeric Pain Scale: 5-Moderate Pain Location: Right Location Body Site: Hip Pain Description: Ache Appearance bruising to right face Mental Status Patient Orientation: Normal For Age Transfers Functional [place] Measure 0=Not Assessed/NA 4=Minimal Assistance 1=Total Assistance 5=Supervision or Setup 2=Maximal Assistance 6=Modified [place] 3=Moderate Assistance 7=Complete IndependenceIRFPAI Quality Coding Scale 6 Independent with activity with or without an assistive device 5 Patient requires set up or clean up by helper. Patient completes activity by themselves 4 Supervision or touching assist (CGA). [place] provide cues , steadying assist 3 The helper provides less than half the effort to complete the activity 2 The helper provides more than half the effort to complete the activity 1 Dependent. The helper does all the effort to complete an activity 7 Patient refused to complete or attempt activity 9 The patient did not perform the activity before the current illness or injury 88 Not attempted due to Medical conditions or safety concerns Transfers (B, C, W/C) (FIM): 4 Scootin Rollin Supine to/from Sit: 4 (assist CGA with RLE in to bed/out of bed) Sit to/from Stand: 5 sit to stand all with raised seated level Weight Bearing Weight Bearing Restriction: Weight Bearing/Tolerated Location Restriction: R LE Gait Training Does the Patient Walk?: Yes Gait (FIM): 4 Distance (FIM): 3=150 ft (x1,75x2) Gait Level of Assist: 4 Gait Persons Needed: 1 Gait Assistive Device: FWW heavy weight bearing on to FWW Exercises Supine Ex: Bridging, Ankle pumps, Quad Set, Rolling, Glut sets, Heel Slides, Short Arc Quads, Scooting, Straight leg raise, Hip abd/add Supine Reps: 15 Seated Therapy Exercises: Ankle pumps, Sit to stand, Long arc quads, Hip flexion Seated Reps: 12 Treatments toileted and donned brief and shoes with mod assist Assessment Current Status: Good Progress gives full effort, progressing well PT Maintenance Man Goals Usp Goals PT Usp Goals Time Frame: Oct 29, 2016 Transfers (B,C,W/C) (FIM): 6 Sit to Lying (QC): 6 Lying-Sitting on Side/Bed(QC): 6 Sit to Stand (QC): 6 Rollin Roll Left to Right (QC): 6 Chair/Szi-lj-Etebm Xfer(QC): 6 Car Transfer (QC): 6 Does the Patient Walk: Yes Gait (FIM): 6 Gait distance (FIM): 3=150 ft Distance: 250' Walk 10 feet (QC): 5 Walk 10ft-Uneven Surface(QC): 5 Walk 50ft with 2 Turns (QC): 5 Walk 150 ft (QC): 5 Gait Level of Assist: 6 Gait Assistive Device: FWW Does the Pt use WC or Scooter?: No Stairs (FIM): 2 # of Steps: 4 1 Step (curb) (QC): 5 4 Steps (QC): 5 12 Steps (QC): 9 Stairs Level Of Assist: 6 Picking up an Object (QC): 5 PT Plan Treatment/Plan Treatment Plan: Continue Plan of Care Treatment Plan: Bed Mobility, Education, Functional Activity [place], Functional Strength, Group Therapy, Gait, Safety, Therapeutic Exercise, Transfers Treatment Duration: Oct 29, 2016 Visits Per Week: 11 Minutes/Day (M-F): 60-90 Minutes/Day (Sat/Rodriguez): PRN Safety Risks/Education Patient Education: Gait Training, Transfer Techniques, Correct Positioning, Disease Process, Safety Issues Teaching Recipient: Patient Teaching Methods: Demonstration, Discussion Response to Teaching: Verbalize Understanding, Return Demonstration, Reinforcement Needed educated RE: safe turns, pt.with some LOB while turning Time/GCodes Time In: 820 Time Out: 950 Total Billed Treatment Time: 90 Total Billed Treatment 1,FA30m,EX30m,GT30m G Codes Necessary: DARRYL Felix SALES ADMINISTRATION SPECIALIST Oct 09, 2016 10:00
--- NOTE | 2016-10-09 11:00 | History & Physical-Hospitalist ---
HPI History of Present Illness: HPI/Chief Complaint CC: Medical management along with rehab following fall and severe right hip pain unable to ambulate HPI: This is an 86-year-old white female clinic patient of Dr. Dobbins's [place] presents following a fall with no fracture noted on the right where she was having pain on x-ray or CT scan but osteoarthritis appearing severe in the joint causing the patient to be unable to ambulate and she lives at home so she was stabilized on the acute medical floor and transferred to acute rehabilitation to [facility] prior to going home. Currently her bowels are moving she is requesting a DO NOT RESUSCITATE which order was placed and overall very appreciative of the fact that inpatient rehabilitation is available here to help her because she could not go home in the states she was in yesterday. Source: patient Date Seen 10/09/16 Time Seen by Provider: 10:30 Attending Physician Yang Duarte MD PCP Venkatesh Dobbins MD Referring Physician Date of Admission Oct 08, 2016 at 15:46 Home Medications & Allergies Home Medications Reviewed patient Home Medication Reconciliation Form Allergies Allergies Coded Allergies atenolol (Verified Allergy, Unknown, 10/08/16) codeine (Verified Allergy, Unknown, NAUSEA, 10/08/16) HEADACHE diltiazem (Verified Adverse Reaction, Mild, DOESN'T WANT, 10/08/16) indomethacin (Verified Adverse Reaction, Mild, DOESN'T WANT, 10/08/16) propranolol (Verified Adverse Reaction, Mild, DOESN'T WANT, 10/08/16) morphine (Verified Adverse Reaction, Unknown, 10/08/16) reports hearing things-reports she does not want to ever take. haS TOLERATED HYDROCODONE Uncoded Allergies NITROPATCH ( Adverse Reaction, Mild, DOESN'T WANT, 03/29/07) Past [id number] Hx Patient Social History Marrital Status: Employed/Student: retired Alcohol Use: Denies Use Recreational Drug Use: No Smoking Status: Never a Smoker Physical Abuse Screen: No Sexual Abuse: No Recent Foreign Travel: No Contact w/other who traveled: No Recent Hopitalizations: No Recent Infectious Disease Expo: No Immunizations Up To Date Tetanus Booster (TDap): Unknown Date of Pneumonia Vaccine: Nov 23, 2013 Date of Influenza Vaccine: Feb 06, 2013 Seasonal Allergies Seasonal Allergies: No Surgeries HX Surgeries: Yes Surgeries: Adenoidectomy, Appendectomy, Cardiac, Coronary Stent, Gallbladder, Orthopedic, Tonsillectomy, Vascular Surgery Respiratory Hx Respiratory Disorders: No Cardiovascular Hx Cardiovascular Disorders: Yes (HEART STENT X1 IN 2014, STENTS X2 IN LEGS) Cardiac Disorders: Coronary Artery Disease, High Cholesterol, Hypertension, Peripheral Vascular Neurological Hx Neurological Disorders: No Reproductive System Hx Reproductive Disorders: No Sexually Transmitted Disease: No HIV/AIDS: No Female Reproductive Disorders: Denies Genitourinary Hx Genitourinary Disorders: Yes (Frequency) Genitourinary Disorders: UTI-Chronic Gastrointestinal Hx Gastrointestinal Disorders: Yes Gastrointestinal Disorders: Gastroesophageal Reflux, Chronic Constipation, Diverticulosis, Gall Bladder Disease Musculoskeletal Hx Musculoskeletal Disorders: Yes (BACK PROBLEMS) Musculoskeletal Disorders: Arthritis, Chronic Back Pain, Fractures Endocrine Hx Endocrine Disorders: No HEENT HX ENT Disorders: Yes (Cataract removed from right eye) HEENT Disorders: Cataract Loss of Vision: Bilateral Hearing Impairment: Hard of Hearing Cancer Hx Cancer: No Psychosocial Hx Psychiatric Problems: No Integumentary HX Skin/Integumentary Disorder: Yes (Shingles) Blood Transfusions Hx Blood Disorders: No Family Medical History Family Hx: Arthritis 19 MOTHER, Onset:Unknown Diabetes mellitus 19 FATHER, Onset:Unknown Myocardial infarction 19 FATHER, Onset:Unknown 19 MOTHER, Onset:Unknown Review of Systems Date Seen by Provider: Oct 09, 2016 Time Seen by Provider: 10:30 Constitutional: no symptoms reported EENTM: no symptoms reported Respiratory: no symptoms reported Cardiovascular: no symptoms reported Gastrointestinal: no symptoms reported Genitourinary: no symptoms reported Musculoskeletal: joint pain (right hip pain) Skin: no symptoms reported Psychiatric/Neurological: No Symptoms Reported All Other Systems Reviewed Negative Unless Noted: Yes Physical Exam Physical Exam Vital Signs Vital Sign - Last 12Hours 10/08/16 16:00 Temp 98.6 Pulse 88 Resp 20 B/P (MAP) 132/72 Pulse Ox 95 O2 Delivery Room Air Capillary Refill : General Appearance: No Apparent Distress, WD/WN, Chronically ill Eyes: Bilateral Eye Normal Inspection, Bilateral Eye PERRL HEENT: PERRL/EOMI, Normal ENT Inspection, Pharynx Normal Neck: Full Range of Motion, Normal Inspection, Non Tender, Supple, Carotid Bruit Respiratory: Chest Non Tender, Lungs Clear, Normal Breath Sounds, No Accessory Muscle Use, No Respiratory Distress Cardiovascular: Regular Rate, Rhythm, No Edema, No Gallop, No JVD, No Murmur, Normal Peripheral Pulses Gastrointestinal: Normal Bowel Sounds, No Organomegaly, No Pulsatile Mass, Non Tender, Soft Back: Normal Inspection, No CVA Tenderness, No Vertebral Tenderness Extremity: Normal Capillary Refill, Normal Inspection, Normal Range of Motion ( of right hip), Non Tender, No Calf Tenderness, No Pedal Edema Neurologic/Psychiatric: Alert, Oriented x3, No Motor/Sensory Deficits, Normal Mood/Affect Skin: Normal Color, Warm/Dry Lymphatic: No Adenopathy Assessment/Plan Admission Diagnosis Assessment: Fall with subsequent right hip pain unable to ambulate and lives alone with 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
--- NOTE | 2016-10-09 11:46 | Occupational Therapy Eval ---
OT Evaluation-General/PLF Medical Diagnosis Admission Date Oct 08, 2016 at 15:46 Medical Diagnosis: fall/debility. scalp hematoma Onset Date: Oct 07, 2016 Therapy Diagnosis Therapy Diagnosis: weakness, decr funct mobility, decr self care Height/Weight Height (Feet): 5 Height (Inches): 8.00 Weight (Pounds): 168 Weight (Ounces): 0.0 Precautions Precautions/Isolations: Fall Prevention, Standard Precautions Safety Interventions: Reorient-PRN Weight Bear Status Weight Bearing Restriction: Weight Bearing/Tolerated Location Restriction: R LE Referral Physician: Gerald Referral Reason: Evaluation/Treatment Medical History Pertinent Medical History: Arthritis, CAD, COPD, Diverticulitis, Fractures, GERD, HTN, [place], Neuropathy Additional Medical History Cardiac stent 2013, leg stents x 2, chronic constipation, gall bladder disease, chronic back pain, R eye cataract removal. Fall 2 years ago with cervical reconstruction. Pt had reported decreased peripheral vision on L side from childhood. Hard of hearing Current History [facility]. R hip pain. Scalp hematoma Reviewed History: Yes Social History Home: Single Level Current Living Status: Alone Entry Into Home: Stairs With Railing Steps Into Home: 3 ADL-Prior Level of Function ADL PLOF Comments Pt reported that she has been able to manage all of her basic self care needs prior to the fall. She used a sock aid and has a dressing stick but doesn't use it. She walked at home with no devices and was driving. 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 Pain reported 6-7 and she said she ached from her neck to her knee on the R side. Appearance Alert, cooperative Mental Status/Objective Patient Orientation: Person, Place, Time, Situation Comprehension: 6 Expression: 6 Social Interaction: 6 Problem Solvin Memory: 5 (Cues to finish dressing lower body (pull pants up) before donning shirt) Current Hearing Aids: No Dentures/Partials: No Hand Dominance: Right Upper Extremity ROM L UE grossly WFL. R UE limited with shoulder flex/abd about 60 degrees. Rest is WFL Upper Extremity Coordination WFL Upper Extremity Strength Grossly 4/5 bilat except R shoulder 2/5 in flex/abd ADL-Treatment Functional [place] Measure 0=Not Assessed/NA 4=Minimal Assistance 1=Total Assistance 5=Supervision or Setup 2=Maximal Assistance 6=Modified [place] 3=Moderate Assistance 7=Complete IndependenceIRFPAI Quality Coding Scale 6 Independent with activity with or without an assistive device 5 Patient requires set up or clean up by helper. Patient completes activity by themselves 4 Supervision or touching assist (CGA). [place] provide cues , steadying assist 3 The helper provides less than half the effort to complete the activity 2 The helper provides more than half the effort to complete the activity 1 Dependent. The helper does all the effort to complete an activity 7 Patient refused to complete or attempt activity 9 The patient did not perform the activity before the current illness or injury 88 Not attempted due to Medical conditions or safety concerns Eating (FIM): 7 (Pt reported she has been able to feed herself. No dentures) Eating (QC): 6 Grooming (FIM): 5 (SBA at sink to brush teeth and hair, FWW. Washed face and hands in shower. Put on lipstick) Oral Hygiene (QC): 4 Bathing (FIM): 4 (Pt needed min assist to stand to wash dirk and bottom. Washed and dried all other parts including back and hair. Shower bench, grab bar , hand held shower.) Shower/Bathe Self (QC): 3 Upper Body Dressing (FIM): 5 (Dressed upper body with setup. No problem with buttons) Upper Body Dressing (QC): 5 Lower Body Dressing (FIM): 4 (Able to kick shoes off but not socks. Used sock aid to don socks and has elastic shoe laces so put shoes on herself (setup). Struggled a little to lift R foot to put in pants leg. Able to stand to pull pants up but struggles at midpoint between pushing up and reaching for walker. ) Lower Body Dressing (QC): 3 On/Off Footwear (QC): 4 Toileting (FIM): 5 (Able to manage clothing and hygiene. BSC over toilet so that she has arm rests to use to stand for clothing management. SBA when standing) Toileting Hygiene (QC): 4 Transfers (B, C, W/C) (FIM): 5 (Struggles a little between sitting and standing , FWW. Extra times. Rocks several times to get up, from taller lift chair) Toilet/Commode Transfer (FIM): 5 (SBA, BSC over toilet, for handles. Grab bar, FWW) Toilet Transfer (QC): 4 Shower Transfer (FIM): 4 (Min assist, especially when moving from sit to stand. Shower bench, grab bars, FWW) Pt left up in recliner, all needs met. All ADLs took longer than usual due to pt moving very slowly, especially when putting weight on R leg. Education OT Patient Education: Modified ADL techniques, Purpose of tx/functional activities, Rehab process, Safety issues, Transfer techniques, Use of adapted equipment Teaching Recipient: Patient Teaching Methods: Demonstration, Discussion Response to Teaching: Verbalize Understanding, Return Demonstration, Reinforcement Needed OT Short Term Goals Short Term Goals Time Frame: Oct 15, 2016 Bathing(FIM): 5 Lower Body Dressing(FIM): 5 Additional Short Term Goals: 2-Verbalize Understanding, 3-ImproveStrength/Desean 1=Demonstrate adherence to instructed precautions during ADL tasks. 2=Patient will verbalize/demonstrate understanding of assistive devices/ modifications for ADL. 3=Patient will improve strength/tolerance for activity to enable patient to perform ADL's. OT Intermediate Goals Salesperson Florist Supplies Goals Time Frame: Oct 22, 2016 Eating (FIM): 7 (No dentures) Eating (QC): 6 Groomin Oral Hygiene (QC): 6 Bathing(FIM): 6 Shower/Bathe Self (QC): 6 Upper Body Dressing(FIM): 6 Upper Body Dressing (QC): 6 Lower Body Dressing(FIM): 6 Lower Body Dressing (QC): 6 On/Off Footwear (QC): 6 Toileting(FIM): 6 Toileting Hygiene (QC): 6 Toilet/Commode Transfer(FIM): 6 Toilet/Commode Transfer (QC): 6 Shower Transfer(FIM): 6 Additional Goals: 2-Verbalize Understanding, 3-ImproveStrength/Desean 1=Demonstrate adherence to instructed precautions during ADL tasks. 2=Patient will verbalize/demonstrate understanding of assistive devices/ modifications for ADL. 3=Patient will improve strength/tolerance for activity to enable patient to perform ADL's. OT Education/Plan Problem List/Assessment Assessment: Decreased UE Strength, Dependent Transfers, Impaired Funct Balance , Impaired Self-Care Skills, Restricted Funct UE ROM Pt would benefit from skilled OT to increase her independence in basic self care to allow her to safely return home to live independently. Discharge Recommendations Plan/Recommendations: Continue POC Target Placement home Treatment Plan/Plan of Care Treatment,Training & Education: Yes Patient would benefit from OT for education, treatment and training to promote independence in ADL's, mobility, safety and/or upper extremity function for ADL' s. Plan of Care: ADL Retraining, Functional Mobility, Group Exercise/Act as Ind ( education, exercise, activity tolerance, functional activities, socialization), UE Funct Exercise/Act, UE Neuromus Re-Ed/Coord Treatment Duration: Oct 22, 2016 # of days/week 5-6 Visits Per Week: 10-11 Minutes/Day (M-F): 75-90 Minutes/Day (Sat/Rodriguez): PRN Agreement: Yes Rehab Potential: Good Time/GCodes Start Time: 10:00 Stop Time: 11:30 Total Time Billed (hr/min): 90 Billed Treatment Time visit, 15 minutes evaluation moderate intensity, 75 minutes ADL ZEINA CAMPOS OT Oct 09, 2016 11:46
--- NOTE | 2016-10-09 13:48 | PM&R Post Admission Assessment ---
Post Admission Physician Asses The preadmission screen agrees with the post admission assessment that the patient is a good candidate for inpatient rehabilitation. The patient will have a comprehensive program of inpatient rehabilitation with a goal of maximizing level of functional independence prior to discharge home with [facility]. The patient will have PT/OT ninety minutes per day, each discipline , five days a week for gait, strengthening, conditioning, balance, ADLs, any patient/family/caregiver training necessary. Speech therapy to do cognitive assessment and treat as indicated. Rehabilitation nursing to assist with bowel, bladder, skin, medication administration, pain management. Operator Engineer to assist with discharge planning, community reentry. SCD's for DVT prophylaxis. She appears to be well motivated to participate in three hours of therapy a day. She should be able to tolerate three hours of therapy a day from a medical standpoint. She should benefit from the three hours of therapy a day. She has a reasonable discharge plan, reasonable discharge rehabilitation goals and a supportive family. She has various comorbidities that need to be closely monitored with medications and treatments adjusted on a daily basis as needed. These include: Severe arthritic pain HTN Coronary artery D Hx of falls Barriers to discharge for this patient who had been independent prior to this are for her to be modified independent to supervision for ADLs and mobility skills prior to discharge home with [facility], so as to lessen the burden of the caregivers. Risks for this patient include: 1. Fall 2. Fracture 3. DVT 4. Pulmonary embolism 5. Poorly controlled HTN 6. Skin breakdown 7. Contractures 8. Poorly controlled pain 9. Urinary retention 10. UTI 11. Respiratory infection 12. Aspiration Estimated Length of Stay: 14 days Prognosis: Rehab prognosis appears good for goal of discharge home with [facility] modified independent to supervision for ADLs and mobility skills. Prior level of function : Modified Independent Current level of function :Minassist for Transfers and bed mobility and gait with walker Mod assist for Lower body drsssing and min assist for Upper body dressing SHANTANU MURRAY MD Oct 09, 2016 13:48
[2016-10-09 17:29] VITALS: BP 144/76
[2016-10-09] MEDS: meTOproloL SUCCINATE 50 MG (TOPROL XL) TAB PO SCH (20:39)
[2016-10-09] MEDS: AMITRIPTYLINE 25 MG (ELAVIL) TAB PO SCH (20:40)
[2016-10-10] MEDS: MULTIVIT W/MINERALS TAB (THERAGRAN M) PO SCH (06:29)
[2016-10-10 06:43] VITALS: BP 150/76
[2016-10-10] MEDS: ASPIRIN E.C. 325 MG (ECOTRIN) TABLET PO SCH (08:49)
[2016-10-10] MEDS: amLODIPine 5 MG (NORVASC) TAB PO SCH (08:49)
[2016-10-10] MEDS: DOCUSATE SODIUM 100 MG (COLACE) CAP PO SCH (08:49)
[2016-10-10] MEDS: lisINopril 10 MG (PRINIVIL) TAB PO SCH (08:49)
[2016-10-10] MEDS: IBUPROFEN TABLET 200 MG TAB PO PRN (10:47)
[2016-10-10 17:42] VITALS: BP 142/76
[2016-10-10] MEDS: AMITRIPTYLINE 25 MG (ELAVIL) TAB PO SCH (21:25)
[2016-10-10] MEDS: ACETAMINOPHEN 500 MG TAB (TYLENOL) PO PRN (21:25)
[2016-10-10] MEDS: meTOproloL SUCCINATE 50 MG (TOPROL XL) TAB PO SCH (21:25)
[2016-10-10] MEDS: POLYETHYLENE GLYCOL 17 GM (MIRALAX) PACK PO PRN (21:28)
[2016-10-11 05:53] VITALS: BP 151/62
[2016-10-11] MEDS: MULTIVIT W/MINERALS TAB (THERAGRAN M) PO SCH (06:34)
[2016-10-11] MEDS: ASPIRIN E.C. 325 MG (ECOTRIN) TABLET PO SCH (08:18)
[2016-10-11] MEDS: DOCUSATE SODIUM 100 MG (COLACE) CAP PO SCH (08:18)
[2016-10-11] MEDS: amLODIPine 5 MG (NORVASC) TAB PO SCH (08:18)
[2016-10-11] MEDS: HYDROcodone/APAP 5 MG/325 MG (LORTAB) TAB PO PRN ×2 (08:18→13:35)
[2016-10-11] MEDS: lisINopril 10 MG (PRINIVIL) TAB PO SCH (08:18)
[2016-10-11] MEDS: CYANOCOBALAMIN 500 MCG TAB (VITAMIN B-12) PO SCH (08:18)
--- NOTE | 2016-10-11 10:13 | Occupational Ther Daily Note ---
OT Current Status-Daily Note Subjective Pt seen in room, up in recliner, agreeable to OT. pain reported /10 in R hip. Nursing contacted re: meds per pt request. Appearance Alert, cooperative Mental Status/Objective Functional [place] Measure 0=Not Assessed/NA 4=Minimal Assistance 1=Total Assistance 5=Supervision or Setup 2=Maximal Assistance 6=Modified [place] 3=Moderate Assistance 7=Complete [place] ADL-Treatment Pt declined a bath today but did want to put clean clothes on. Functional [place] Measure 0=Not Assessed/NA 4=Minimal Assistance 1=Total Assistance 5=Supervision or Setup 2=Maximal Assistance 6=Modified [place] 3=Moderate Assistance 7=Complete IndependenceIRFPAI Quality Coding Scale 6 Independent with activity with or without an assistive device 5 Patient requires set up or clean up by helper. Patient completes activity by themselves 4 Supervision or touching assist (CGA). [place] provide cues , steadying assist 3 The helper provides less than half the effort to complete the activity 2 The helper provides more than half the effort to complete the activity 1 Dependent. The helper does all the effort to complete an activity 7 Patient refused to complete or attempt activity 9 The patient did not perform the activity before the current illness or injury 88 Not attempted due to Medical conditions or safety concerns Grooming (FIM): 5 (SBA standing at sink to brush teeth and wash hands. No LOB observed) Upper Body (FIM): 5 (Donned button-up shirt with setup. Donned shirt when standing, SBA) Lower Body Dressing (FIM): 4 (Pt educ use of dressing stick to don underwear and slacks. Pt reported she had a dressing stick at home but did not use it. She was able to get pants over feet. SBA when pulling pants up. Some difficulty with sit to stand at midpoint) Toileting (FIM): 5 (SBA to manage clothing and hygiene. BSC over toilet, grab bar, FWW. ) Toilet/Commode Transfer (FIM): 5 (SBA. BSC over toilet. Pt needs to rock forward several times to get up. gets stuck at midpoint in sit to stand) Pt walked very slowly to and from bathroom with SBA for safety, FWW. moving very slowly and deliberately. Pt left up in recliner, all needs met. Education OT Patient Education: Modified ADL techniques, Purpose of tx/functional activities, Use of adapted equipment Teaching Recipient: Patient Teaching Methods: Demonstration, Discussion Response to Teaching: Verbalize Understanding, Return Demonstration OT Short Term Goals Short Term Goals Time Frame: Oct 15, 2016 Bathing(FIM): 5 Lower Body Dressing(FIM): 5 Additional Short Term Goals: 2-Verbalize Understanding, 3-ImproveStrength/Desean 1=Demonstrate adherence to instructed precautions during ADL tasks. 2=Patient will verbalize/demonstrate understanding of assistive devices/ modifications for ADL. 3=Patient will improve strength/tolerance for activity to enable patient to perform ADL's. OT Fdc Goals Fish Flipper Goals Time Frame: Oct 22, 2016 Eating (FIM): 7 (No dentures) Eating (QC): 6 Groomin Oral Hygiene (QC): 6 Bathing(FIM): 6 Shower/Bathe Self (QC): 6 Upper Body Dressing(FIM): 6 Upper Body Dressing (QC): 6 Lower Body Dressing(FIM): 6 Lower Body Dressing (QC): 6 On/Off Footwear (QC): 6 Toileting(FIM): 6 Toileting Hygiene (QC): 6 Toilet/Commode Transfer(FIM): 6 Toilet/Commode Transfer (QC): 6 Shower Transfer(FIM): 6 Additional Goals: 2-Verbalize Understanding, 3-ImproveStrength/Desean 1=Demonstrate adherence to instructed precautions during ADL tasks. 2=Patient will verbalize/demonstrate understanding of assistive devices/ modifications for ADL. 3=Patient will improve strength/tolerance for activity to enable patient to perform ADL's. OT Education/Plan Problem List/Assessment Pt would benefit from skilled OT to increase her independence in basic self care to allow her to safely return home to live independently. Discharge Recommendations Plan/Recommendations: Continue POC Treatment Plan/Plan of Care Patient would benefit from OT for education, treatment and training to promote independence in ADL's, mobility, safety and/or upper extremity function for ADL' s. Plan of Care: ADL Retraining, Functional Mobility, Group Exercise/Act as Ind ( education, exercise, activity tolerance, functional activities, socialization), UE Funct Exercise/Act, UE Neuromus Re-Ed/Coord Treatment Duration: Oct 22, 2016 Visits Per Week: 10-11 Minutes/Day (M-F): 75-90 Minutes/Day (Sat/Rodriguez): PRN Agreement: Yes Rehab Potential: Good Time/GCodes Start Time: 09:30 Stop Time: 10:00 Total Time Billed (hr/min): 30 Billed Treatment Time visit, 30 min ZEINA EUGENE OT Oct 11, 2016 10:13
--- NOTE | 2016-10-11 12:03 | Physical Therapy Daily Note ---
PT Daily Note-Current Subjective Pt. state she is very sore this morning. Right hip pain at 6/10 but improves with activity. Pt. explains again her situation at home with bed and TRFs Pain Numeric Pain Scale: 6 Location: Right Location Body Site: Hip Pain Description: Ache Mental Status Patient Orientation: Normal For Age Transfers Functional [place] Measure 0=Not Assessed/NA 4=Minimal Assistance 1=Total Assistance 5=Supervision or Setup 2=Maximal Assistance 6=Modified [place] 3=Moderate Assistance 7=Complete IndependenceIRFPAI Quality Coding Scale 6 Independent with activity with or without an assistive device 5 Patient requires set up or clean up by helper. Patient completes activity by themselves 4 Supervision or touching assist (CGA). [place] provide cues , steadying assist 3 The helper provides less than half the effort to complete the activity 2 The helper provides more than half the effort to complete the activity 1 Dependent. The helper does all the effort to complete an activity 7 Patient refused to complete or attempt activity 9 The patient did not perform the activity before the current illness or injury 88 Not attempted due to Medical conditions or safety concerns Transfers (B, C, W/C) (FIM): 5 Scootin Rollin Supine to/from Sit: 5 Sit to/from Stand: 5 (from high surface) Bed to/from Chair: 5 Gait Training Does the Patient Walk?: Yes Gait (FIM): 5 Distance (FIM): 3=150 ft Gait Level of Assist: 5 Gait Persons Needed: 1 Gait Assistive Device: FWW slow, very careful, heavy weight bearing on UEs secondary to painful right hip Stair Training Stair Training: Handrails/: 2 handrails Stairs (FIM): 2 #of Steps: 4 Stairs: Pattern: Step to Level of Assist: 4 Exercises Supine Ex: Rolling, Heel Slides, Short Arc Quads, Hip abd/add Supine Reps: 12 Seated Therapy Exercises: Ankle pumps, Long arc quads, Hip flexion, Hip abd/add Seated Reps: 12 Assessment Current Status: Excellent Progress pt. has pain laying supine, doesnt slep in her bed for this reason. but did feel comfortable with LEs flexed at hips and knees PT Mechanical Engineering Officer Goals Mechanical Engineering Officer Goals PT Retirement Goals Time Frame: Oct 29, 2016 Transfers (B,C,W/C) (FIM): 6 Sit to Lying (QC): 6 Lying-Sitting on Side/Bed(QC): 6 Sit to Stand (QC): 6 Rollin Roll Left to Right (QC): 6 Chair/Azd-sn-Nitod Xfer(QC): 6 Car Transfer (QC): 6 Does the Patient Walk: Yes Gait (FIM): 6 Gait distance (FIM): 3=150 ft Distance: 250' Walk 10 feet (QC): 5 Walk 10ft-Uneven Surface(QC): 5 Walk 50ft with 2 Turns (QC): 5 Walk 150 ft (QC): 5 Gait Level of Assist: 6 Gait Assistive Device: FWW Does the Pt use WC or Scooter?: No Stairs (FIM): 2 # of Steps: 4 1 Step (curb) (QC): 5 4 Steps (QC): 5 12 Steps (QC): 9 Stairs Level Of Assist: 6 Picking up an Object (QC): 5 PT Plan Treatment/Plan Treatment Plan: Continue Plan of Care Treatment Plan: Bed Mobility, Education, Functional Activity [place], Functional Strength, Group Therapy, Gait, Safety, Therapeutic Exercise, Transfers Treatment Duration: Oct 29, 2016 Visits Per Week: 11 Minutes/Day (M-F): 60-90 Minutes/Day (Sat/Rodriguez): PRN Safety Risks/Education Patient Education: Gait Training, Transfer Techniques, Steps Teaching Recipient: Patient Teaching Methods: Demonstration, Discussion Response to Teaching: Verbalize Understanding, Return Demonstration, Reinforcement Needed Time/GCodes Time In: 1000 Time Out: 1100 Total Billed Treatment Time: 60 Total Billed Treatment 1FA30m,EX15m,GT15 G Codes Necessary: DARRYL Felix VALVE LAPPER Oct 11, 2016 12:03
--- NOTE | 2016-10-11 12:52 | Occupational Ther Daily Note ---
OT Current Status-Daily Note Subjective Pt seen in room, up in chair, agreeable to OT. Appearance Alert, cooperative Mental Status/Objective Functional [place] Measure 0=Not Assessed/NA 4=Minimal Assistance 1=Total Assistance 5=Supervision or Setup 2=Maximal Assistance 6=Modified [place] 3=Moderate Assistance 7=Complete [place] ADL-Treatment Pt toileted with SBA for safety, FWW, with BSC over toilet. SBA for safety to wash hands at sink. Functional [place] Measure 0=Not Assessed/NA 4=Minimal Assistance 1=Total Assistance 5=Supervision or Setup 2=Maximal Assistance 6=Modified [place] 3=Moderate Assistance 7=Complete IndependenceIRFPAI Quality Coding Scale 6 Independent with activity with or without an assistive device 5 Patient requires set up or clean up by helper. Patient completes activity by themselves 4 Supervision or touching assist (CGA). [place] provide cues , steadying assist 3 The helper provides less than half the effort to complete the activity 2 The helper provides more than half the effort to complete the activity 1 Dependent. The helper does all the effort to complete an activity 7 Patient refused to complete or attempt activity 9 The patient did not perform the activity before the current illness or injury 88 Not attempted due to Medical conditions or safety concerns Other Treatment Walked with SBA for safety, FWW to gym, moving very deliberately and slowly ( about 150 feet). In gym, pt did 12 minutes bilat UE exercise with arm bike set at 15W resistance, to strengthen arms to help with sit to stand. No breaks taken - pt worked at steady pace. Pt walked back to room SBA , FWW and was left up in recliner, all needs met. Education OT Patient Education: Progress toward Goal/Update tx plan, Transfer techniques Teaching Recipient: Patient Teaching Methods: Discussion Response to Teaching: Return Demonstration OT Short Term Goals Short Term Goals Time Frame: Oct 15, 2016 Bathing(FIM): 5 Lower Body Dressing(FIM): 5 Additional Short Term Goals: 2-Verbalize Understanding, 3-ImproveStrength/[place] 1=Demonstrate adherence to instructed precautions during ADL tasks. 2=Patient will verbalize/demonstrate understanding of assistive devices/ modifications for ADL. 3=Patient will improve strength/tolerance for activity to enable patient to perform ADL's. OT Compliance Engineer Goals Compliance Engineer Goals Time Frame: Oct 22, 2016 Eating (FIM): 7 (No dentures) Eating (QC): 6 Groomin Oral Hygiene (QC): 6 Bathing(FIM): 6 Shower/Bathe Self (QC): 6 Upper Body Dressing(FIM): 6 Upper Body Dressing (QC): 6 Lower Body Dressing(FIM): 6 Lower Body Dressing (QC): 6 On/Off Footwear (QC): 6 Toileting(FIM): 6 Toileting Hygiene (QC): 6 Toilet/Commode Transfer(FIM): 6 Toilet/Commode Transfer (QC): 6 Shower Transfer(FIM): 6 Additional Goals: 2-Verbalize Understanding, 3-ImproveStrength/[place] 1=Demonstrate adherence to instructed precautions during ADL tasks. 2=Patient will verbalize/demonstrate understanding of assistive devices/ modifications for ADL. 3=Patient will improve strength/tolerance for activity to enable patient to perform ADL's. OT Education/Plan Problem List/Assessment Pt would benefit from skilled OT to increase her independence in basic self care to allow her to safely return home to live independently. Discharge Recommendations Plan/Recommendations: Continue POC Treatment Plan/Plan of Care Patient would benefit from OT for education, treatment and training to promote independence in ADL's, mobility, safety and/or upper extremity function for ADL' s. Plan of Care: ADL Retraining, Functional Mobility, Group Exercise/Act as Ind ( education, exercise, activity tolerance, functional activities, socialization), UE Funct Exercise/Act, UE Neuromus Re-Ed/Coord Treatment Duration: Oct 22, 2016 Visits Per Week: 10-11 Minutes/Day (M-F): 75-90 Minutes/Day (Sat/Rodriguez): PRN Agreement: Yes Rehab Potential: Good Time/GCodes Start Time: 11:15 Stop Time: 11:45 Total Time Billed (hr/min): 30 Billed Treatment Time visit, 15 min functional activity, 15 minutes exercise ZEINA CAMPOS OT Oct 11, 2016 12:52
--- NOTE | 2016-10-11 14:16 | Occupational Ther Daily Note ---
OT Current Status-Daily Note Subjective Pt seen in room, agreeable to OT. Pain increased but not rated - described as aching in hip. Nursing notified Appearance Alert, cooperative Mental Status/Objective Functional [place] Measure 0=Not Assessed/NA 4=Minimal Assistance 1=Total Assistance 5=Supervision or Setup 2=Maximal Assistance 6=Modified [place] 3=Moderate Assistance 7=Complete [place] ADL-Treatment Pt toileted SBA, FWW, BSC over toilet. Managed clothing and hygiene with SBA. SBA at sink to wash hands. Functional [place] Measure 0=Not Assessed/NA 4=Minimal Assistance 1=Total Assistance 5=Supervision or Setup 2=Maximal Assistance 6=Modified [place] 3=Moderate Assistance 7=Complete IndependenceIRFPAI Quality Coding Scale 6 Independent with activity with or without an assistive device 5 Patient requires set up or clean up by helper. Patient completes activity by themselves 4 Supervision or touching assist (CGA). [place] provide cues , steadying assist 3 The helper provides less than half the effort to complete the activity 2 The helper provides more than half the effort to complete the activity 1 Dependent. The helper does all the effort to complete an activity 7 Patient refused to complete or attempt activity 9 The patient did not perform the activity before the current illness or injury 88 Not attempted due to Medical conditions or safety concerns Other Treatment Pt walked about 150 feet to gym, SBA, FWW (moving a little slower than this am) . Walking to help with getting to and from bathroom for toileting. In gym, pt did bilat UE exercise with1# exercise bar, working on gentle stretches for shoulders, especially R shoulder with old injury. Pt indicated that she usually worked on stretching her neck and shoulders [facility] Pt able to self manage stretches so that she didn't feel pain. Pt walked back to room, left up in recliner, all needs met. Education OT Patient Education: Exercise program, Purpose of tx/functional activities, Transfer techniques Teaching Recipient: Patient Teaching Methods: Discussion Response to Teaching: Verbalize Understanding OT Short Term Goals Short Term Goals Time Frame: Oct 15, 2016 Bathing(FIM): 5 Lower Body Dressing(FIM): 5 Additional Short Term Goals: 2-Verbalize Understanding, 3-ImproveStrength/[place] 1=Demonstrate adherence to instructed precautions during ADL tasks. 2=Patient will verbalize/demonstrate understanding of assistive devices/ modifications for ADL. 3=Patient will improve strength/tolerance for activity to enable patient to perform ADL's. OT Correction Goals Window Trimmer Apprentice Goals Time Frame: Oct 22, 2016 Eating (FIM): 7 (No dentures) Eating (QC): 6 Groomin Oral Hygiene (QC): 6 Bathing(FIM): 6 Shower/Bathe Self (QC): 6 Upper Body Dressing(FIM): 6 Upper Body Dressing (QC): 6 Lower Body Dressing(FIM): 6 Lower Body Dressing (QC): 6 On/Off Footwear (QC): 6 Toileting(FIM): 6 Toileting Hygiene (QC): 6 Toilet/Commode Transfer(FIM): 6 Toilet/Commode Transfer (QC): 6 Shower Transfer(FIM): 6 Additional Goals: 2-Verbalize Understanding, 3-ImproveStrength/[place] 1=Demonstrate adherence to instructed precautions during ADL tasks. 2=Patient will verbalize/demonstrate understanding of assistive devices/ modifications for ADL. 3=Patient will improve strength/tolerance for activity to enable patient to perform ADL's. OT Education/Plan Problem List/Assessment Pt would benefit from skilled OT to increase her independence in basic self care to allow her to safely return home to live independently. Discharge Recommendations Plan/Recommendations: Continue POC Treatment Plan/Plan of Care Patient would benefit from OT for education, treatment and training to promote independence in ADL's, mobility, safety and/or upper extremity function for ADL' s. Plan of Care: ADL Retraining, Functional Mobility, Group Exercise/Act as Ind ( education, exercise, activity tolerance, functional activities, socialization), UE Funct Exercise/Act, UE Neuromus Re-Ed/Coord Treatment Duration: Oct 22, 2016 Visits Per Week: 10-11 Minutes/Day (M-F): 75-90 Minutes/Day (Sat/Rodriguez): PRN Agreement: Yes Rehab Potential: Good Time/GCodes Start Time: 13:00 Stop Time: 13:30 Total Time Billed (hr/min): 30 Billed Treatment Time visit, 15 minutes functional activity, 15 minutes exercise ZEINA CAMPOS OT Oct 11, 2016 14:16
--- NOTE | 2016-10-11 15:23 | ST Cognitive Linguistic Eval ---
Speech Evaluation-General Medical Diagnosis fall/debility. scalp hematoma Onset Date: Oct 07, 2016 Therapy Diagnosis Therapy Diagnosis: Cognitive Linguistic Skills WNL Precautions Precautions/Isolations: Fall Prevention, Standard Precautions Referral Referring Physician: Dr. Yang Duarte Reason for Referral: Evaluation/Treatment Cognitive Linguistic Evaluation Medical History Pertinent Medical History: Arthritis, CAD, COPD, Diverticulitis, Fractures, GERD, HTN, HI, Neuropathy Reviewed History: Yes Social History Home: Multilevel Current Living Status: Alone Speech PLF-Current Status Prior Level of Function Per patient, "I can't remember people's names all of the time and every now and then I grope for a word but that's nothing new." The patient denied recent changes in cognition (memory, problem solving). Additionally, the patient stated, "no, there's nothing to work on here." Subjective The patient was recently admitted to [facility] following a fall (no fractures). The patient greeted the clinician appropriately and was agreeable to participation in the cognitive evaluation. Language Eval: Auditory Comprehends Simple Yes/No Ques: Functional Indent/Objects Multiple [place]: Functional Ident/Pics in Multiple Baker: Functional Follows 1-Step Commands: Functional Follows Complex Directions: Functional Follows General Conversations: Functional Language Eval: Verbal Language Completes Spontaneous Greeting: Functional Produces Auto, Serial Info: Functional Imitates Simple Words/Phrases: Functional Word Finding: Functional Requests Basic Needs: Functional States Basic Personal Info: Functional Expresses Complex Ideas: Functional Cognitive Patient Orientation The patient was oriented to name, location, city, month, day of week, date, and year. Objective Cognitive Domain Attention: WNL Memory: Mild Problem Solving: Functional Objective Impression The patient demonstrated cognitive linguistic skills grossly within normal limits. Communication/Social Cognition Comprehension: 6 Expression: 6 Social Interaction: 6 Problem Solvin Memory: 5 Speech Patient Assess Expression of Ideas/Wants: Expression (4) Understanding [place] Content: Usually Understands (3) Brief Interview-Mental Status: Yes Repetition of Three Words: Three (3) Temporal Orientation: Year: Correct (3) Temporal Orientation: Month: Accurate within 5 days(2) Temporal Orientation: Day: Correct (1) Recall : Wear to say "Sock": No, could not recall (0) Recall : Color: Yes, no cue required (2) Recall : Bed: Yes, no cue required (2) Speech-Plan Treatment Plan Speech Therapy Treatment Plan: Discontinue ST Evaluation, only. Rehab Potential: Good Safety Risks/Education Teaching Recipient: Patient Teaching Methods: Discussion Response to Teaching: Verbalize Understanding Education Topics Provided: Plan of Care, Results, Recommendations Time Speech Therapy Time In: 15:36 Speech Therapy Time Out: 15:51 Total Billed Time: 15 Billed Treatment Time 1, ANA SILVA Oct 11, 2016 15:23
--- NOTE | 2016-10-11 15:36 | Physical Therapy Daily Note ---
PT Daily Note-Current Subjective Agreeable to PT. Reports she is "stiff" after she has been sitting a while. Mental Status Patient Orientation: Person, Place, Time, Situation Transfers Functional [place] Measure 0=Not Assessed/NA 4=Minimal Assistance 1=Total Assistance 5=Supervision or Setup 2=Maximal Assistance 6=Modified [place] 3=Moderate Assistance 7=Complete IndependenceIRFPAI Quality Coding Scale 6 Independent with activity with or without an assistive device 5 Patient requires set up or clean up by helper. Patient completes activity by themselves 4 Supervision or touching assist (CGA). [place] provide cues , steadying assist 3 The helper provides less than half the effort to complete the activity 2 The helper provides more than half the effort to complete the activity 1 Dependent. The helper does all the effort to complete an activity 7 Patient refused to complete or attempt activity 9 The patient did not perform the activity before the current illness or injury 88 Not attempted due to Medical conditions or safety concerns Treatments 2 separate walking episodes. Sit to stand from recliner with min assist and skilled cues to push up with her hands. Gait x 125 ft with FWW with CGA and skilled cues for posture. Pt participated in interaction with other patients in group setting. To return to room, pt was able to transfer sit to stand with SBA and pushing up from the arms of the chair, slowly. Pt ambulated 120 ft with FWW with CGA. Assist to pull her pants up and down. Pt then to her chair post treatment with needs met. Assessment Current Status: Good Progress Gait is slow but steady. Pt improved her ability to transfer sit to stand with repetition. PT Consultant Electronics Goals Consultant Electronics Goals PT Alf Goals Time Frame: Oct 29, 2016 Transfers (B,C,W/C) (FIM): 6 Sit to Lying (QC): 6 Lying-Sitting on Side/Bed(QC): 6 Sit to Stand (QC): 6 Rollin Roll Left to Right (QC): 6 Chair/Bvw-sv-Flczp Xfer(QC): 6 Car Transfer (QC): 6 Does the Patient Walk: Yes Gait (FIM): 6 Gait distance (FIM): 3=150 ft Distance: 250' Walk 10 feet (QC): 5 Walk 10ft-Uneven Surface(QC): 5 Walk 50ft with 2 Turns (QC): 5 Walk 150 ft (QC): 5 Gait Level of Assist: 6 Gait Assistive Device: FWW Does the Pt use WC or Scooter?: No Stairs (FIM): 2 # of Steps: 4 1 Step (curb) (QC): 5 4 Steps (QC): 5 12 Steps (QC): 9 Stairs Level Of Assist: 6 Picking up an Object (QC): 5 PT Plan Treatment/Plan Treatment Plan: Continue Plan of Care Treatment Plan: Bed Mobility, Education, Functional Activity [place], Functional Strength, Group Therapy, Gait, Safety, Therapeutic Exercise, Transfers Treatment Duration: Oct 29, 2016 Visits Per Week: 11 Minutes/Day (M-F): 60-90 Minutes/Day (Sat/Rodriguez): PRN Time/GCodes Time In: 1350 (1444) Time Out: 1400 (1500) Total Billed Treatment Time: 24 Total Billed Treatment visit x 2 GT x 2 (24 minutes) SHAHNAZ SMITH PT Oct 11, 2016 15:36
--- NOTE | 2016-10-11 15:38 | PM & R (SOAP) Progress Note ---
Subjective Time Seen by Provider: 11:50 Subjective/Events-last exam Patient was seen in her room this AM Patient using meds for pain control .Patient sba for transfers and gait with RW with Increased pain rt hip with WT bearing s/p fall with films negative for frx Review of Systems Musculoskeletal: leg pain Neurological: Weakness Objective Exam Last Set of Vital Signs Vital Signs Date Time Temp Pulse Resp B/P (MAP) Pulse Ox O2 Delivery O2 Flow Rate FiO2 10/11/16 05:53 97.8 81 18 151/62 95 Room Air Capillary Refill : I&O Intake and Output 10/11/16 00:00 Intake Total 1580 ml Balance 1580 ml Intake Oral 1580 ml # Voids 7 # Bowel Movements 4 General: Alert, Oriented X3, Cooperative, No Acute Distress HEENT: PERRLA, EOMI, Mucous Memb Moist/[place], Other (ecchymosis rt periorbital area) Neck: Supple, No JVD Lungs: Clear to Auscultation Heart: Regular Rate Abdomen: Normal Bowel Sounds, Soft, No Tenderness Extremities: No Edema Skin: Other (bruising as per above) Neuro: Other (guarding rt hip with tenderness) Assessment/Plan Assessment 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
--- NOTE | 2016-10-11 15:41 | Individualized Plan of Care ---
Individualized Plan of Care Rehab Nursing IPOC Order Admission Date Oct 08, 2016 at 15:46 Current Orders Orders Patient Visit (10/11/16 ) Speech Sound Lang Comp (10/11/16 ) Patient Visit (10/11/16 ) Functional Activities, Ea 15 (10/11/16 ) Exercise Therap, Ea 15 Min (10/11/16 ) Gait Training, Ea 15 Min (10/11/16 ) Patient Visit (10/11/16 ) Gait Training, Ea 15 Min (10/11/16 ) Toilet every (bladder): (hrs): 2 hours prn while awake PT IPOC Problem List: Activity Tolerance, Functional Strength, Gait, Transfer, Bed Mobility Treatment Plan: Continue Plan of Care Bed Mobility, Education, Functional Activity [place], Functional Strength, Group Therapy, Gait, Safety, Therapeutic Exercise, Transfers Treatment Duration: Oct 29, 2016 Visits Per Week: 11 Minutes/Day (M-F): 60-90 Minutes/Day (Sat/Rodriguez): PRN OT IPOC Problems: Decreased UE Strength, Dependent Transfers, Impaired Funct Balance, Impaired Self-Care Skills, Restricted Funct UE ROM OT Problems Pt would benefit from skilled OT to increase her independence in basic self care to allow her to safely return home to live independently. Plan of Care: ADL Retraining, Functional Mobility, Group Exercise/Act as Ind ( education, exercise, activity tolerance, functional activities, socialization), UE Funct Exercise/Act, UE Neuromus Re-Ed/Coord Treatment Duration: Oct 22, 2016 Visits Per Week: 10-11 Minutes/Day (M-F): 75-90 Minutes/Day (Sat/Rodriguez): PRN ST IPOC Speech Therapy Treatment Plan: Discontinue ST Physician IPOC Medical Issues being managed closely and that require the 24 hour availability of a physician: Pain management HTN acute on chronic pain Medical Issues: Bowel/Bladder Function, DVT Prophylaxis, Falls Precautions, Infection Protection, Pain Management, Other (List) (as per above) Brief Synthesis of Preadmission Screen, Post-Admission Evaluation, and Therapy Evaluations: 86 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
[2016-10-11 18:30] VITALS: BP 122/68
[2016-10-11] MEDS: ACETAMINOPHEN 500 MG TAB (TYLENOL) PO PRN (21:43)
[2016-10-11] MEDS: meTOproloL SUCCINATE 50 MG (TOPROL XL) TAB PO SCH (21:43)
[2016-10-11] MEDS: AMITRIPTYLINE 25 MG (ELAVIL) TAB PO SCH (21:44)
[2016-10-11] MEDS: POLYETHYLENE GLYCOL 17 GM (MIRALAX) PACK PO PRN (21:48)
[2016-10-12] MEDS: HYDROcodone/APAP 5 MG/325 MG (LORTAB) TAB PO PRN ×2 (02:20→08:31)
[2016-10-12 05:03] VITALS: BP 165/71
[2016-10-12] MEDS: MULTIVIT W/MINERALS TAB (THERAGRAN M) PO SCH (06:08)
--- NOTE | 2016-10-12 08:29 | PM & R (SOAP) Progress Note ---
Subjective Time Seen by Provider: 08:05 Subjective/Events-last exam Patient was seen in her room this AM Patient reports no pain at rest in chair but increases with wt-bearing and mobilization.Current meds reviewed. Review of Systems Musculoskeletal: leg pain Objective Exam Last Set of Vital Signs Vital Signs Date Time Temp Pulse Resp B/P (MAP) Pulse Ox O2 Delivery O2 Flow Rate FiO2 10/12/16 05:03 97.5 77 18 165/71 95 Room Air Capillary Refill : I&O Intake and Output 10/12/16 00:00 Intake Total 1400 ml Balance 1400 ml Intake Oral 1400 ml # Voids 7 # Bowel Movements 4 General: Alert, Oriented X3, Cooperative, No Acute Distress HEENT: PERRLA, EOMI, Mucous Memb Moist/[place], Other (ecchymosis rt periorbital area) Neck: Supple, No JVD Lungs: Clear to Auscultation Heart: Regular Rate Abdomen: Normal Bowel Sounds, Soft, No Tenderness Extremities: No Edema Skin: Other (bruising as per above) Neuro: Other (guarding rt hip with tenderness) Assessment/Plan Assessment 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
[2016-10-12] MEDS: DOCUSATE SODIUM 100 MG (COLACE) CAP PO SCH (08:30)
[2016-10-12] MEDS: lisINopril 10 MG (PRINIVIL) TAB PO SCH (08:30)
[2016-10-12] MEDS: amLODIPine 5 MG (NORVASC) TAB PO SCH (08:30)
[2016-10-12] MEDS: ASPIRIN E.C. 325 MG (ECOTRIN) TABLET PO SCH (08:30)
[2016-10-12] MEDS: DICLOFENAC 1% GEL 100 GM (VOLTAREN) TUBE TOP SCH ×4 (09:00→20:48)
--- NOTE | 2016-10-12 10:26 | Physical Therapy Daily Note ---
PT Daily Note-Current Subjective Pt sitting in recliner upon arrival. Pt reports needing to use restroom before leaving for tx. Pt reports pain of 5/10 in R Hip. Pain Numeric Pain Scale: 5-Moderate Pain Location: Right Location Body Site: Hip Pain Description: Ache, Tightness Mental Status Patient Orientation: Person, Place, Situation Transfers Functional [place] Measure 0=Not Assessed/NA 4=Minimal Assistance 1=Total Assistance 5=Supervision or Setup 2=Maximal Assistance 6=Modified [place] 3=Moderate Assistance 7=Complete IndependenceIRFPAI Quality Coding Scale 6 Independent with activity with or without an assistive device 5 Patient requires set up or clean up by helper. Patient completes activity by themselves 4 Supervision or touching assist (CGA). [place] provide cues , steadying assist 3 The helper provides less than half the effort to complete the activity 2 The helper provides more than half the effort to complete the activity 1 Dependent. The helper does all the effort to complete an activity 7 Patient refused to complete or attempt activity 9 The patient did not perform the activity before the current illness or injury 88 Not attempted due to Medical conditions or safety concerns Scootin Sit to/from Stand: 4 Sit to Stand (QC): 4 Weight Bearing Weight Bearing Restriction: Full Weight Bearing Location Restriction: LE Bilateral Gait Training Does the Patient Walk?: Yes Distance (FIM): 3=150 ft Distance: 150' Walk 10 feet (QC): 5 Walk 50 ft with 2 Turns(QC): 5 Walk 150 ft (QC): 5 Gait Level of Assist: 5 Gait Persons Needed: 1 Gait Assistive Device: FWW Pt walks with slow, antalgic gait pattern. Pt WB more through UE due to pain in R hip. Pt is encouraged to WB more through LE to take pressure off UE. Wheelchair Training Does the Pt Use a Wheelchair?: No Exercises Seated Therapy Exercises: Ankle pumps, Long arc quads, Hip flexion, Kicking activity, Hip abd/add Seated Reps: 15 NuStep Minutes: 12 NuStep Workload: 3 Treatments Pt transfers from recliner to standing using FWW at CGA-Min A. Pt uses restroom before leaving room for tx. Pt ambulates using FWW at close SBA. Pt completes NuStep for 12m at Workload 3 as well as Seated Ex. Pt returns to room to rest in recliner at end of tx with all needs met. Assessment Current Status: Good Progress Pt is determined to get better and get back home. Pt realizes she must work hard to get better. Pt walks with some pain and stiffness but it gets better each day. PT Farm Boss Goals Fpc Goals PT Fpc Goals Time Frame: Oct 29, 2016 Transfers (B,C,W/C) (FIM): 6 Sit to Lying (QC): 6 Lying-Sitting on Side/Bed(QC): 6 Sit to Stand (QC): 6 Rollin Roll Left to Right (QC): 6 Chair/Yfr-jd-Afthk Xfer(QC): 6 Car Transfer (QC): 6 Does the Patient Walk: Yes Gait (FIM): 6 Gait distance (FIM): 3=150 ft Distance: 250' Walk 10 feet (QC): 5 Walk 10ft-Uneven Surface(QC): 5 Walk 50ft with 2 Turns (QC): 5 Walk 150 ft (QC): 5 Gait Level of Assist: 6 Gait Assistive Device: FWW Does the Pt use WC or Scooter?: No Stairs (FIM): 2 # of Steps: 4 1 Step (curb) (QC): 5 4 Steps (QC): 5 12 Steps (QC): 9 Stairs Level Of Assist: 6 Picking up an Object (QC): 5 PT Plan Problem List Problem List: Activity Tolerance, Functional Strength, Safety, Balance, Gait, Transfer Treatment/Plan Treatment Plan: Continue Plan of Care Treatment Plan: Bed Mobility, Education, Functional Activity [place], Functional Strength, Group Therapy, Gait, Safety, Therapeutic Exercise, Transfers Treatment Duration: Oct 29, 2016 Visits Per Week: 11 Minutes/Day (M-F): 60-90 Minutes/Day (Sat/Rodriguez): PRN Safety Risks/Education Patient Education: Gait Training, Transfer Techniques, Correct Positioning, Safety Issues Teaching Recipient: Patient Teaching Methods: Discussion Response to Teaching: Verbalize Understanding Time/GCodes Time In: 815 Time Out: 920 Total Billed Treatment Time: 65 Total Billed Treatment visit, FA (15m), EX x2 (30m) & GT (20m) IRENE DE LUNA WASHERY BOSS Oct 12, 2016 10:26
--- NOTE | 2016-10-12 11:34 | Occupational Ther Daily Note ---
OT Current Status-Daily Note Subjective Pt seen in room, up in recliner, agreeable to OT. Pain not rated but evident when weightbearing. Appearance Alert, cooperative Mental Status/Objective Functional [place] Measure 0=Not Assessed/NA 4=Minimal Assistance 1=Total Assistance 5=Supervision or Setup 2=Maximal Assistance 6=Modified [place] 3=Moderate Assistance 7=Complete [place] ADL-Treatment All ADLs took longer than usual due to slow and deliberate walking during ADLs. Pt has some difficulty weightbearing on R LE and arms compensate with FWW. Functional [place] Measure 0=Not Assessed/NA 4=Minimal Assistance 1=Total Assistance 5=Supervision or Setup 2=Maximal Assistance 6=Modified [place] 3=Moderate Assistance 7=Complete IndependenceIRFPAI Quality Coding Scale 6 Independent with activity with or without an assistive device 5 Patient requires set up or clean up by helper. Patient completes activity by themselves 4 Supervision or touching assist (CGA). [place] provide cues , steadying assist 3 The helper provides less than half the effort to complete the activity 2 The helper provides more than half the effort to complete the activity 1 Dependent. The helper does all the effort to complete an activity 7 Patient refused to complete or attempt activity 9 The patient did not perform the activity before the current illness or injury 88 Not attempted due to Medical conditions or safety concerns Bathing (FIM): 5 (Pt washed and dried all parts including bottom, with SBA when standing. Shower bench, grab bar, hand held shower, long handled sponge. Bedspreads placed on shower bench to raise it a couple of inches and pt was able to get up off bench with SBA. Pt washed face and hands inshwoer. ) Upper Body (FIM): 5 (setup, donned bra with modified technique. Donned button up shirt setup.) Lower Body Dressing (FIM): 5 (Lots of additional time needed for getting feet into underwear and slacks, vince R LE. Pt used dressing stick to doff socks, to put pants on. Tried clothespin to hold slacks up when dressing - somewhat successful. Sock aid for donning socks, able to get shoes on herself 9elastic she laces). ) Toileting (FIM): 5 (SBA to stand to wipe. Managed clothing SBA. Rocks several times to stand off BSC over toilet. FWW, grab bar) Transfers (B, C, W/C) (FIM): 4 (Pt needed min assist to get out of recliner, even after rocking several times. Struggles at midpoint. Walked with obvious discomfort on R hip., FWW) Toilet/Commode Transfer (FIM): 5 (Rocked to get off BSC over toilet. FWW, grab bar) Shower Transfer(FIM): 4 (CGA when side stepping into and out of shower due to decreased weight bearing R LE. Shower bench, grab bar, FWW. ) Pt walked back to recliner with SBA for safety, FWW and was left up in recliner , all needs met. Education OT Patient Education: Modified ADL techniques, Progress toward Goal/Update tx plan, Purpose of tx/functional activities, Safety issues, Transfer techniques, Use of adapted equipment Teaching Recipient: Patient Teaching Methods: Discussion Response to Teaching: Verbalize Understanding, Return Demonstration OT Short Term Goals Short Term Goals Time Frame: Oct 15, 2016 Bathing(FIM): 5 Lower Body Dressing(FIM): 5 Additional Short Term Goals: 2-Verbalize Understanding, 3-ImproveStrength/[place] 1=Demonstrate adherence to instructed precautions during ADL tasks. 2=Patient will verbalize/demonstrate understanding of assistive devices/ modifications for ADL. 3=Patient will improve strength/tolerance for activity to enable patient to perform ADL's. OT Shoe Sprayer Goals [place] Goals Time Frame: Oct 22, 2016 Eating (FIM): 7 (No dentures) Eating (QC): 6 Groomin Oral Hygiene (QC): 6 Bathing(FIM): 6 Shower/Bathe Self (QC): 6 Upper Body Dressing(FIM): 6 Upper Body Dressing (QC): 6 Lower Body Dressing(FIM): 6 Lower Body Dressing (QC): 6 On/Off Footwear (QC): 6 Toileting(FIM): 6 Toileting Hygiene (QC): 6 Toilet/Commode Transfer(FIM): 6 Toilet/Commode Transfer (QC): 6 Shower Transfer(FIM): 6 Additional Goals: 2-Verbalize Understanding, 3-ImproveStrength/[place] 1=Demonstrate adherence to instructed precautions during ADL tasks. 2=Patient will verbalize/demonstrate understanding of assistive devices/ modifications for ADL. 3=Patient will improve strength/tolerance for activity to enable patient to perform ADL's. OT Education/Plan Problem List/Assessment Pt would benefit from skilled OT to increase her independence in basic self care to allow her to safely return home to live independently. Discharge Recommendations Plan/Recommendations: Continue POC Treatment Plan/Plan of Care Patient would benefit from OT for education, treatment and training to promote independence in ADL's, mobility, safety and/or upper extremity function for ADL' s. Plan of Care: ADL Retraining, Functional Mobility, Group Exercise/Act as Ind ( education, exercise, activity tolerance, functional activities, socialization), UE Funct Exercise/Act, UE Neuromus Re-Ed/Coord Treatment Duration: Oct 22, 2016 Visits Per Week: 10-11 Minutes/Day (M-F): 75-90 Minutes/Day (Sat/Rodriguez): PRN Agreement: Yes Rehab Potential: Good Time/GCodes Start Time: 09:45 Stop Time: 11:00 Total Time Billed (hr/min): 75 Billed Treatment Time visit, ADL x 75 minutes ZEINA CAMPOS OT Oct 12, 2016 11:34
--- NOTE | 2016-10-12 14:31 | Occupational Ther Daily Note ---
OT Current Status-Daily Note Subjective Pt seen in room, up in recliner, after lunch. Needing to toilet. Mental Status/Objective Functional [place] Measure 0=Not Assessed/NA 4=Minimal Assistance 1=Total Assistance 5=Supervision or Setup 2=Maximal Assistance 6=Modified [place] 3=Moderate Assistance 7=Complete [place] ADL-Treatment Pt transferred from recliner with SBA. FWW but rocked forward several times before being able to stand. Walked to bathroom with SBA, FWW and got on/off BSC over toilet with SBA. While standing to manage clothing, pt leaned against wall and reported she was dizzy. Nursing notified and blood pressures taken sitting and standing (see nursing records). Pt had better success with clothespin holding pants up after toileting. Pt walked to sink and brushed teeth with SBA, FWW (no LOB observed). Pt walked back to recliner SBA for safety. FWW. She took bigger steps this afternoon and may be related to walking with her shoes on. Pt left up in recliner, all needs met. Functional [place] Measure 0=Not Assessed/NA 4=Minimal Assistance 1=Total Assistance 5=Supervision or Setup 2=Maximal Assistance 6=Modified [place] 3=Moderate Assistance 7=Complete IndependenceIRFPAI Quality Coding Scale 6 Independent with activity with or without an assistive device 5 Patient requires set up or clean up by helper. Patient completes activity by themselves 4 Supervision or touching assist (CGA). [place] provide cues , steadying assist 3 The helper provides less than half the effort to complete the activity 2 The helper provides more than half the effort to complete the activity 1 Dependent. The helper does all the effort to complete an activity 7 Patient refused to complete or attempt activity 9 The patient did not perform the activity before the current illness or injury 88 Not attempted due to Medical conditions or safety concerns Grooming (FIM): 5 Toileting (FIM): 5 Toilet Transfer (QC): 5 Education OT Patient Education: Progress toward Goal/Update tx plan, Safety issues, Transfer techniques Teaching Recipient: Patient Teaching Methods: Discussion Response to Teaching: Verbalize Understanding OT Short Term Goals Short Term Goals Time Frame: Oct 15, 2016 Bathing(FIM): 5 Lower Body Dressing(FIM): 5 Additional Short Term Goals: 2-Verbalize Understanding, 3-ImproveStrength/[place] 1=Demonstrate adherence to instructed precautions during ADL tasks. 2=Patient will verbalize/demonstrate understanding of assistive devices/ modifications for ADL. 3=Patient will improve strength/tolerance for activity to enable patient to perform ADL's. OT Halfway Goals Cna Instructor Goals Time Frame: Oct 22, 2016 Eating (FIM): 7 (No dentures) Eating (QC): 6 Groomin Oral Hygiene (QC): 6 Bathing(FIM): 6 Shower/Bathe Self (QC): 6 Upper Body Dressing(FIM): 6 Upper Body Dressing (QC): 6 Lower Body Dressing(FIM): 6 Lower Body Dressing (QC): 6 On/Off Footwear (QC): 6 Toileting(FIM): 6 Toileting Hygiene (QC): 6 Toilet/Commode Transfer(FIM): 6 Toilet/Commode Transfer (QC): 6 Shower Transfer(FIM): 6 Additional Goals: 2-Verbalize Understanding, 3-ImproveStrength/[place] 1=Demonstrate adherence to instructed precautions during ADL tasks. 2=Patient will verbalize/demonstrate understanding of assistive devices/ modifications for ADL. 3=Patient will improve strength/tolerance for activity to enable patient to perform ADL's. OT Education/Plan Problem List/Assessment Pt would benefit from skilled OT to increase her independence in basic self care to allow her to safely return home to live independently. Discharge Recommendations Plan/Recommendations: Continue POC Treatment Plan/Plan of Care Patient would benefit from OT for education, treatment and training to promote independence in ADL's, mobility, safety and/or upper extremity function for ADL' s. Plan of Care: ADL Retraining, Functional Mobility, Group Exercise/Act as Ind ( education, exercise, activity tolerance, functional activities, socialization), UE Funct Exercise/Act, UE Neuromus Re-Ed/Coord Treatment Duration: Oct 22, 2016 Visits Per Week: 10-11 Minutes/Day (M-F): 75-90 Minutes/Day (Sat/Rodriguez): PRN Agreement: Yes Rehab Potential: Good Time/GCodes Start Time: 12:52 Stop Time: 13:10 Total Time Billed (hr/min): 18 Billed Treatment Time visit, 18 minutes ADL ZEINA CAMPOS OT Oct 12, 2016 14:30
--- NOTE | 2016-10-12 15:07 | Physical Therapy Daily Note ---
PT Daily Note-Current Subjective Pt sitting in recliner upon arrival. Pt agrees to PT. Pain Numeric Pain Scale: 5-Moderate Pain Location: Right Location Body Site: Hip Pain Description: Ache, Tightness Mental Status Patient Orientation: Person, Place, Time, Situation Transfers Functional [place] Measure 0=Not Assessed/NA 4=Minimal Assistance 1=Total Assistance 5=Supervision or Setup 2=Maximal Assistance 6=Modified [place] 3=Moderate Assistance 7=Complete IndependenceIRFPAI Quality Coding Scale 6 Independent with activity with or without an assistive device 5 Patient requires set up or clean up by helper. Patient completes activity by themselves 4 Supervision or touching assist ([facility]). [place] provide cues , steadying assist 3 The helper provides less than half the effort to complete the activity 2 The helper provides more than half the effort to complete the activity 1 Dependent. The helper does all the effort to complete an activity 7 Patient refused to complete or attempt activity 9 The patient did not perform the activity before the current illness or injury 88 Not attempted due to Medical conditions or safety concerns Scootin Sit to/from Stand: 4 Sit to Stand (QC): 4 Weight Bearing Weight Bearing Restriction: Full Weight Bearing Location Restriction: LE Bilateral Gait Training Does the Patient Walk?: Yes Distance (FIM): 3=150 ft Distance: 150' Walk 10 feet (QC): 5 Walk 50 ft with 2 Turns(QC): 5 Walk 150 ft (QC): 5 Gait Level of Assist: 5 Gait Persons Needed: 1 Gait Assistive Device: FWW Pt walks with slow, antalgic gait pattern. Pt is encouraged to WB more through LE instead of UE. Wheelchair Training Does the Pt Use a Wheelchair?: No Exercises Seated Therapy Exercises: Ankle pumps, Long arc quads, Hip flexion, Kicking activity Seated Reps: 15 Treatments Pt transfers from recliner using FWW at [facility]. Pt ambulates using FWW at [facility]. Pt completes Seated Ex in chair before returning to room to use restroom and rest. Pt is left with all needs met at end of tx. Assessment Current Status: Fair Progress Pt has stiffness & pain in R hip especially at start of tx and works out some during tx. PT Mcfp Goals Procurement Representative Goals PT Procurement Representative Goals Time Frame: Oct 29, 2016 Transfers (B,C,W/C) (FIM): 6 Sit to Lying (QC): 6 Lying-Sitting on Side/Bed(QC): 6 Sit to Stand (QC): 6 Rollin Roll Left to Right (QC): 6 Chair/Bkt-bl-Gmkoi Xfer(QC): 6 Car Transfer (QC): 6 Does the Patient Walk: Yes Gait (FIM): 6 Gait distance (FIM): 3=150 ft Distance: 250' Walk 10 feet (QC): 5 Walk 10ft-Uneven Surface(QC): 5 Walk 50ft with 2 Turns (QC): 5 Walk 150 ft (QC): 5 Gait Level of Assist: 6 Gait Assistive Device: FWW Does the Pt use WC or Scooter?: No Stairs (FIM): 2 # of Steps: 4 1 Step (curb) (QC): 5 4 Steps (QC): 5 12 Steps (QC): 9 Stairs Level Of Assist: 6 Picking up an Object (QC): 5 PT Plan Problem List Problem List: Activity Tolerance, Functional Strength, Safety, Balance, Gait Treatment/Plan Treatment Plan: Continue Plan of Care Treatment Plan: Bed Mobility, Education, Functional Activity [place], Functional Strength, Group Therapy, Gait, Safety, Therapeutic Exercise, Transfers Treatment Duration: Oct 29, 2016 Visits Per Week: 11 Minutes/Day (M-F): 60-90 Minutes/Day (Sat/Rodriguez): PRN Safety Risks/Education Patient Education: Gait Training, Transfer Techniques, Correct Positioning, Safety Issues Teaching Recipient: Patient Teaching Methods: Discussion Response to Teaching: Verbalize Understanding Time/GCodes Time In: 1400 Time Out: 1430 Total Billed Treatment Time: 30 Total Billed Treatment visit, GT (20m) & EX (10m) IRENE DE LUNA LIME FILTER OPERATOR Oct 12, 2016 15:07
[2016-10-12 18:20] VITALS: BP 143/69
[2016-10-12] MEDS: AMITRIPTYLINE 25 MG (ELAVIL) TAB PO SCH (20:48)
[2016-10-12] MEDS: meTOproloL SUCCINATE 50 MG (TOPROL XL) TAB PO SCH (20:48)
[2016-10-12] MEDS: IBUPROFEN TABLET 200 MG TAB PO PRN (21:14)
[2016-10-13 06:12] VITALS: BP 140/74
[2016-10-13] MEDS: MULTIVIT W/MINERALS TAB (THERAGRAN M) PO SCH (06:14)
[2016-10-13] MEDS: IBUPROFEN TABLET 200 MG TAB PO PRN ×2 (06:14→21:20)
--- NOTE | 2016-10-13 07:22 | PM & R (SOAP) Progress Note ---
Subjective Time Seen by Provider: 07:10 Subjective/Events-last exam Patient was seen in her room this AM Patient min assist for transfers Voltaren gel ordered for hip pain.Had small BM yesterday Objective Exam Last Set of Vital Signs Vital Signs Date Time Temp Pulse Resp B/P (MAP) Pulse Ox O2 Delivery O2 Flow Rate FiO2 10/13/16 06:12 97.6 74 18 140/74 95 Room Air Capillary Refill : I&O Intake and Output 10/13/16 00:00 Intake Total 1200 ml Balance 1200 ml Intake Oral 1200 ml # Voids 8 # Bowel Movements 1 General: Alert, Oriented X3, Cooperative, No Acute Distress HEENT: PERRLA, EOMI, Mucous Memb Moist/[place], Other (ecchymosis rt periorbital area) Neck: Supple, No JVD Lungs: Clear to Auscultation Heart: Regular Rate Abdomen: Normal Bowel Sounds, Soft, No Tenderness Extremities: No Edema Skin: Other (bruising as per above) Neuro: Other (guarding rt hip with tenderness) Assessment/Plan Assessment 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
[2016-10-13] MEDS: ASPIRIN E.C. 325 MG (ECOTRIN) TABLET PO SCH (07:51)
[2016-10-13] MEDS: lisINopril 10 MG (PRINIVIL) TAB PO SCH (07:51)
[2016-10-13] MEDS: amLODIPine 5 MG (NORVASC) TAB PO SCH (07:51)
[2016-10-13] MEDS: DOCUSATE SODIUM 100 MG (COLACE) CAP PO SCH (07:51)
[2016-10-13] MEDS: CYANOCOBALAMIN 500 MCG TAB (VITAMIN B-12) PO SCH (07:51)
[2016-10-13] MEDS: DICLOFENAC 1% GEL 100 GM (VOLTAREN) TUBE TOP SCH ×4 (07:52→21:21)
--- NOTE | 2016-10-13 10:00 | Physical Therapy Daily Note ---
PT Daily Note-Current Subjective Agrees to PT. No complaints. Feels like she will be ready to go home some time next week. Mental Status Patient Orientation: Person, Place, Time, Situation Transfers Functional [place] Measure 0=Not Assessed/NA 4=Minimal Assistance 1=Total Assistance 5=Supervision or Setup 2=Maximal Assistance 6=Modified [place] 3=Moderate Assistance 7=Complete IndependenceIRFPAI Quality Coding Scale 6 Independent with activity with or without an assistive device 5 Patient requires set up or clean up by helper. Patient completes activity by themselves 4 Supervision or touching assist (CGA). [place] provide cues , steadying assist 3 The helper provides less than half the effort to complete the activity 2 The helper provides more than half the effort to complete the activity 1 Dependent. The helper does all the effort to complete an activity 7 Patient refused to complete or attempt activity 9 The patient did not perform the activity before the current illness or injury 88 Not attempted due to Medical conditions or safety concerns Transfers (B, C, W/C) (FIM): 4 Supine to/from Sit: 4 Sit to Stand (QC): 4 Sit to stnad from lift recliner with min assist. Transferred on/off toilet with SBA. Performed dirk care without assist. Sit to from stand x 5 to work on functional LE strength to improve transfers; pt needs min assist occas with sit to stand. Sit to from supine with CGa and skilled cues to sequence. Gait Training Does the Patient Walk?: Yes Gait (FIM): 4 Distance (FIM): 3=150 ft Distance: 150 ft x 2 Gait Assistive Device: FWW sB-CGA with gait. Decreased step length bilaterally and slow gait pattern. Stair Training Stairs (FIM): 2 #of Steps: 4 Stairs: Pattern: Step to Level of Assist: 4 Up/down 4 steps with close CGA and min verbal cues for reminders for sequencing. Treatments Functional gait, transfers and stairs. Assessment Current Status: Good Progress Progressing well with functional transfers and mobilty. Strength progressing as well. PT Mcfp Goals Mcfp Goals PT Revenue Tax Specialist Goals Time Frame: Oct 29, 2016 Transfers (B,C,W/C) (FIM): 6 Sit to Lying (QC): 6 Lying-Sitting on Side/Bed(QC): 6 Sit to Stand (QC): 6 Rollin Roll Left to Right (QC): 6 Chair/Jvr-ac-Dvohh Xfer(QC): 6 Car Transfer (QC): 6 Does the Patient Walk: Yes Gait (FIM): 6 Gait distance (FIM): 3=150 ft Distance: 250' Walk 10 feet (QC): 5 Walk 10ft-Uneven Surface(QC): 5 Walk 50ft with 2 Turns (QC): 5 Walk 150 ft (QC): 5 Gait Level of Assist: 6 Gait Assistive Device: FWW Does the Pt use WC or Scooter?: No Stairs (FIM): 2 # of Steps: 4 1 Step (curb) (QC): 5 4 Steps (QC): 5 12 Steps (QC): 9 Stairs Level Of Assist: 6 Picking up an Object (QC): 5 PT Plan Problem List Problem List: Activity Tolerance, Functional Strength, Safety, Balance, Gait, Transfer, Bed Mobility Treatment/Plan Treatment Plan: Continue Plan of Care Treatment Plan: Bed Mobility, Education, Functional Activity [place], Functional Strength, Group Therapy, Gait, Safety, Therapeutic Exercise, Transfers Treatment Duration: Oct 29, 2016 Visits Per Week: 11 Minutes/Day (M-F): 60-90 Minutes/Day (Sat/Rodriguez): PRN Safety Risks/Education Patient Education: Transfer Techniques, Steps, Safety Issues Teaching Recipient: Patient Teaching Methods: Demonstration, Discussion Response to Teaching: Reinforcement Needed Discharge Recommendations Therapy D/C Recommendations: Physical Therapy Home Care Time/GCodes Time In: 800 Time Out: 900 Total Billed Treatment Time: 60 Total Billed Treatment visit GT 20 FA 40 SHAHNAZ SMITH PT Oct 13, 2016 10:00
--- NOTE | 2016-10-13 11:04 | Occupational Ther Daily Note ---
OT Current Status-Daily Note Subjective Pt seen in room, up in bed, agreeable to OT. No pain mentioned at start of tx but painful R hip at end of tx. Warm blankets placed over hip for comfort. Appearance Alert, cooperative Mental Status/Objective Functional [place] Measure 0=Not Assessed/NA 4=Minimal Assistance 1=Total Assistance 5=Supervision or Setup 2=Maximal Assistance 6=Modified [place] 3=Moderate Assistance 7=Complete [place] ADL-Treatment Pt did not want to shower but did want to "wash up" at the sink. Pt was able to get up off EOB with SBA, rocking only a few times. Walked SBA for safety, FWW to bathroom where she toileted and bathed (see details below). Walked abck to recliner with SBA to dress. At end of tx, pt left up in recliner, legs elevated , warm blankets around R hip for comfort, all needs met. Functional [place] Measure 0=Not Assessed/NA 4=Minimal Assistance 1=Total Assistance 5=Supervision or Setup 2=Maximal Assistance 6=Modified [place] 3=Moderate Assistance 7=Complete IndependenceIRFPAI Quality Coding Scale 6 Independent with activity with or without an assistive device 5 Patient requires set up or clean up by helper. Patient completes activity by themselves 4 Supervision or touching assist (CGA). [place] provide cues , steadying assist 3 The helper provides less than half the effort to complete the activity 2 The helper provides more than half the effort to complete the activity 1 Dependent. The helper does all the effort to complete an activity 7 Patient refused to complete or attempt activity 9 The patient did not perform the activity before the current illness or injury 88 Not attempted due to Medical conditions or safety concerns Grooming (FIM): 5 (Brushed teeth standing at sink, balancing on countertop or FWW if needed. ) Bathing (FIM): 6 (Pt washed and dried all areas except back with sponge bath which she set up, standing at sink. balanced on countertop or FWW. No LOB observed during bath. ) Upper Body (FIM): 5 (Stood to don bra, sat to don shirt, setup) Lower Body Dressing (FIM): 5 (SBA when standing to pull pants up. Verbal cues for use of dressing stick with pants. it is still difficult for her to lift up her R foot to put it into pants. Elastic shoe laces help her slip shoes on but back of heel bends, requiring manual adjustment which is painful to do.) Toileting (FIM): 5 (Mod I, BSC over toilet, FWW. Stood to wipe with no LOB. Managed clothing) Toilet/Commode Transfer (FIM): 6 (On and off BSC over toilet. No LOB. Does not include walking to backroom) Education OT Patient Education: Modified ADL techniques, Progress toward Goal/Update tx plan, Purpose of tx/functional activities, Use of adapted equipment Teaching Recipient: Patient Teaching Methods: Discussion Response to Teaching: Verbalize Understanding, Reinforcement Needed OT Short Term Goals Short Term Goals Time Frame: Oct 15, 2016 Bathing(FIM): 5 Lower Body Dressing(FIM): 5 Additional Short Term Goals: 2-Verbalize Understanding, 3-ImproveStrength/Desean 1=Demonstrate adherence to instructed precautions during ADL tasks. 2=Patient will verbalize/demonstrate understanding of assistive devices/ modifications for ADL. 3=Patient will improve strength/tolerance for activity to enable patient to perform ADL's. 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 2=Patient will verbalize/demonstrate understanding of assistive devices/ modifications for ADL. 3=Patient will improve strength/tolerance for activity to enable patient to perform ADL's. OT Education/Plan Problem List/Assessment Pt would benefit from skilled OT to increase her independence in basic self care to allow her to safely return home to live independently. Discharge Recommendations Plan/Recommendations: Continue POC Treatment Plan/Plan of Care Patient would benefit from OT for education, treatment and training to promote independence in ADL's, mobility, safety and/or upper extremity function for ADL' s. Plan of Care: ADL Retraining, Functional Mobility, Group Exercise/Act as Ind ( education, exercise, activity tolerance, functional activities, socialization), UE Funct Exercise/Act, UE Neuromus Re-Ed/Coord Treatment Duration: Oct 22, 2016 Visits Per Week: 10-11 Minutes/Day (M-F): 75-90 Minutes/Day (Sat/Rodriguez): PRN Agreement: Yes Rehab Potential: Good Time/GCodes Start Time: 09:55 Stop Time: 10:55 Total Time Billed (hr/min): 60 Billed Treatment Time visit, 60 minutes ADL ZEINA CAMPOS OT Oct 13, 2016 11:04
[2016-10-13] MEDS: HYDROcodone/APAP 5 MG/325 MG (LORTAB) TAB PO PRN (13:16)
--- OUTSIDE RECORDS SUMMARY | 2016-10-13 13:34 | XMS REPORT | Continuity of Care Document ---
Author Author [facility] Organization [facility] Address Unknown Phone Unavailable Allergies Active Description Code Type Severity Reaction Onset Reported/Identified Relationship to Patient Clinical Status Yes atenolol [id number] Drug Allergy Mild DOSEN'T WANT 03/29/2007 Yes NITROPATCH NITROPATCH Mild DOESN'T WANT 03/29/2007 Yes codeine [id number] Drug Allergy Mild NAUSEA, HEADACH 04/05/2007 Yes diltiazem [id number] Drug Allergy Mild DOESN'T WANT 10/08/2016 Yes indomethacin [id number] Drug Allergy Mild DOESN'T WANT 10/08/2016 Yes propranolol [id number] Drug Allergy Mild DOESN'T WANT 10/08/2016 Yes atenolol [id number] Drug Allergy Unknown N/A 10/08/2016 Yes codeine [id number] Drug Allergy Unknown NAUSEA 10/08/2016 Yes morphine [id number] Drug Allergy Unknown N/A 10/08/2016 Medications Problems Date Dx Coded Attending Type Code Diagnosis Diagnosed By 03/24/1543 KAVITA PHILIP MD Ot M54.2 CERVICALGIA 03/24/1543 KAVITA PHILIP MD Ot M54.5 LOW BACK PAIN 03/24/1699 KAVITA PHILIP MD Ot M54.2 CERVICALGIA 03/24/1699 KAVITA HPILIP MD Ot M54.5 LOW BACK PAIN 11/22/2011 Ot V54.11 11/22/2011 Ot V57.1 01/27/2012 Ot V54.11 01/27/2012 Ot V57.1 04/13/2012 Ot V54.11 04/13/2012 Ot V57.1 05/23/2013 ELVIRA BAINS MD Ot 455.0 05/23/2013 ELVIRA BAINS MD Ot 455.3 05/23/2013 NARA VILLANUEVA, ELVIRA Ot 562.10 09/07/2013 ANGELA ZENDEJASM, LIAM Streeter Ot 709.2 08/17/2014 JAMES DO, JAJA K Ot 414.00 08/17/2014 JAMES DO, JAJA K Ot 793.19 08/17/2014 JAMES DO, JAJA K Ot 805.02 08/17/2014 JAMES DO, JAJA K Ot 845.00 08/17/2014 JAMES DO, JAJA K Ot 920 08/17/2014 JAMES DO, JAJA K Ot 923.00 08/17/2014 JAMES DO, JAJA K Ot 924.01 08/17/2014 JAMES DO, JAJA K Ot 959.09 08/17/2014 JAMES DO, JAJA K Ot E000.8 08/17/2014 JAMES DO, JAJA K Ot E013.0 08/17/2014 JAMES DO, JAJA K Ot E849.0 08/17/2014 JAMES DO, JAJA K Ot E888.1 08/17/2014 JAMES DO, JAJA K Ot V58.66 08/17/2014 JAMES DO, JAJA K Ot V58.69 08/23/2014 TREVOR VILLANUEVA, SHANTANU E Ot 272.4 08/23/2014 TREVOR VILLANUEVA, SHANTANU E Ot 401.9 08/23/2014 TREVOR VILLANUEVA, SHANTANU E Ot 414.01 08/23/2014 TREVOR VILLANUEVA, SHANTANU E Ot 924.10 08/23/2014 TREVOR VILLANUEVA, SHANTANU E Ot E013.0 08/23/2014 TREVOR VILLANUEVA, SHANTANU E Ot E849.0 08/23/2014 TREVOR VILLANUEVA, SHANTANU E Ot E888.1 08/23/2014 TREVOR VILLANUEVA, SHANTANU E Ot V15.88 08/23/2014 TREVOR VILLANUEVA, SHANTANU E Ot V45.82 08/23/2014 TREVOR VILLANUEVA, SHANTANU E Ot V54.17 08/23/2014 TREVOR VILLANUEVA, SHANTANU E Ot V57.89 08/23/2014 TREVOR VILLANUEVA, SHANTANU E Ot V58.63 08/23/2014 TREVOR VILLANUEVA, SHANTANU E Ot V58.66 08/23/2014 TREVOR VILLANUEVA, SHANTANU E Ot 272.4 08/23/2014 TREVOR VILLANUEVA, SHANTANU E Ot 401.9 08/23/2014 TREVOR VILLANUEVA, SHANTANU E Ot 414.01 08/23/2014 TREVOR VILLANUEVA, SHANTANU E Ot 924.10 08/23/2014 TREVOR VILLANUEVA, SHANTANU E Ot E013.0 08/23/2014 TREVOR VILLANUEVA, SHANTANU E Ot E849.0 08/23/2014 TREVOR VILLANUEVA, SHANTANU E Ot E888.1 08/23/2014 TREVOR VILLANUEVA, SHANTANU E Ot V15.88 08/23/2014 TREVOR VILLANUEVA, SHANTANU E Ot V45.82 08/23/2014 TREVOR VILLANUEVA, SHANTANU E Ot V54.17 08/23/2014 TREVOR VILLANUEVA, SHANTANU E Ot V57.89 08/23/2014 TREVOR VILLANUEVA, SHANTANU E Ot V58.63 08/23/2014 TREVOR VILLANUEVA, SHANTANU E Ot V58.66 08/29/2014 TREVOR VILLANUEVA, SHANTANU E Ot 272.4 08/29/2014 TREVOR VILLANUEVA, SHANTANU E Ot 401.9 08/29/2014 TREVOR VILLANUEVA, SHANTANU E Ot 414.01 08/29/2014 TREVOR VILLANUEVA, SHANTANU E Ot V15.88 08/29/2014 TREVOR VILLANUEVA, SHANTANU E Ot V45.82 08/29/2014 TREVOR VILLANUEVA, SHANTANU E Ot V54.17 08/29/2014 TREVOR VILLANUEVA, SHANTANU E Ot V57.89 08/29/2014 TREVOR VILLANUEVA, SHANTANU E Ot V58.63 08/29/2014 TREVOR VILLANUEVA, SHANTANU E Ot V58.66 08/29/2014 TREVOR VILLANUEVA, SHANTANU E Ot V58.89 09/03/2014 TREVOR VILLANUEVA, SHANTANU E Ot 272.4 09/03/2014 TREVOR VILLANUEVA, SHANTANU E Ot 333.94 09/03/2014 TREVOR VILLANUEVA, SHANTANU E Ot 401.9 09/03/2014 TREVOR VILLANUEVA, SHANTANU E Ot 414.01 09/03/2014 TREVOR VILLANUEVA, SHANTANU E Ot 564.00 09/03/2014 TREVOR VILLANUEVA, SHANTANU E Ot 715.90 09/03/2014 TREVOR VILLANUEVA, SHANTANU E Ot V15.88 09/03/2014 TREVOR VILLANUEVA, SHANTANU E Ot V45.82 09/03/2014 TREVOR VILLANUEVA, SHANTANU E Ot V54.17 09/03/2014 TREVOR VILLANUEVA, SHANTANU E Ot V57.89 09/03/2014 TREVOR VILLANUEVA, SHANTANU E Ot V58.63 09/03/2014 TREVOR VILLANUEVA, SHANTANU E Ot V58.66 09/03/2014 TREVOR VILLANUEVA, SHANTANU E Ot V58.89 09/17/2014 Ot V76.12 09/17/2014 NARA VILLANUEVA, SONYAKI Ot V72.84 09/17/2014 ANGELA DPM, LIAM Q Ot 782.2 09/17/2014 ANGELA DPM, LIAM Q Ot V72.84 09/17/2014 ANGELA DPM, LIAM Q Ot V74.8 10/29/2014 CEDRICK VILLANUEVA, KAVITA Cornell Ot 041.02 10/29/2014 CEDRICK VILLANUEVA, KAVITA Cornell Ot 041.85 10/29/2014 CEDRICK VILLANUEVA, KAVITA Cornell Ot 272.4 10/29/2014 CEDRICK VILLANUEVA, KAVITA Cornell Ot 401.9 10/29/2014 CEDRICK VILLANUEVA, KAVITA Cronell Ot 414.01 10/29/2014 CEDRICK VILLANUEVA, KAVITA Cornell Ot 682.6 10/29/2014 CEDRICK VILLANUEVA, KAVITA Cornell Ot 728.89 10/29/2014 CEDRICK VILLANUEVA, KAVITA Cornell Ot 906.3 10/29/2014 CEDRICK VILLANUEVA, KAVITA Cornell Ot E929.3 10/29/2014 CEDRICK VILLANUEVA, KAVITA Cornell Ot V45.82 10/29/2014 CEDRICK VILLANUEVA, KAVITA Cornell Ot 041.02 10/29/2014 CEDRICK VILLANUEVA, KAVITA Cornell Ot 041.85 10/29/2014 CEDRICK VILLANUEVA, KAVITA Cornell Ot 272.4 10/29/2014 CEDRICK VILLANUEVA, KAVITA Cornell Ot 401.9 10/29/2014 CEDRICK VILLANUEVA, KAVITA Cornell Ot 414.01 10/29/2014 CEDRICK VILLANUEVA, KAVITA Cornell Ot 682.6 10/29/2014 CEDRICK VILLANUEVA, KAVITA Cornell Ot 728.89 10/29/2014 CEDRICK VILLANUEVA, KAVITA Cornell Ot 906.3 10/29/2014 CEDRICK VILLANUEVA, KAVITA Cornell Ot E929.3 10/29/2014 CEDRICK VILLANUEVA, KAVITA Cornell Ot V45.82 10/29/2014 CEDRICK VILLANUEVA, KAVITA Cornell Ot 041.02 10/29/2014 CEDRICK VILLANUEVA, KAVITA Cornell Ot 041.85 10/29/2014 CEDRICK VILLANUEVA, KAVITA Cornell Ot 272.4 10/29/2014 CEDRICK VILLANUEVA, KAVITA Cornell Ot 401.9 10/29/2014 CEDRICK VILLANUEVA, KAVITA Cornell Ot 414.01 10/29/2014 CEDRICK VILLANUEVA, KAVITA Cornell Ot 682.6 10/29/2014 CEDRICK VILLANUEVA, KAVITA Cornell Ot 728.89 10/29/2014 CEDRICK VILLANUEVA, KAVITA Cornell Ot 906.3 10/29/2014 CEDRICK VILLANUEVA, KAVITA Cornell Ot E929.3 10/29/2014 CEDRICK VILLANUEVA, KAVITA Cornell Ot V45.82 10/31/2014 CEDRICK VILLANUEVA, KAVITA Cornell Ot 041.02 10/31/2014 CEDRICK VILLANUEVA, KAVITA Cornell Ot 041.85 10/31/2014 CEDRICK VILLANUEVA, KAVITA Cornell Ot 272.4 10/31/2014 CEDRICK VILLANUEVA, KAVITA Cornell Ot 401.9 10/31/2014 CEDRICK VILLANUEVA, KAVITA Cornell Ot 414.01 10/31/2014 CEDRICK VILLANUEVA, KAVITA Cornell Ot 682.6 10/31/2014 CEDRICK VILLANUEVA, KAVITA Cornell Ot 728.89 10/31/2014 CEDRICK VILLANUEVA, KAVITA Cornell Ot 906.3 10/31/2014 CEDRICK VILLANUEVA, KAVITA Cornell Ot E929.3 10/31/2014 CEDRICK VILLANUEVA, KAVITA Cornell Ot V45.82 11/05/2014 CEDRICK VILLANUEVA, KAVITA Cornell Ot 041.02 11/05/2014 CEDRICK VILLANUEVA, KAVITA Cornell Ot 041.85 11/05/2014 CEDRICK VILLANUEVA, KAVITA Cornell Ot 272.4 11/05/2014 CEDRICK VILLANUEVA, KAVITA Cornell Ot 401.9 11/05/2014 CEDRICK VILLANUEVA, KAVITA Cornell Ot 414.01 11/05/2014 CEDRICK VILLANUEVA, KAVITA Cornell Ot 682.6 11/05/2014 CERDICK VILLANUEVA, KAVITA Cornell Ot 728.89 11/05/2014 CEDRICK VILLANUEVA, KAVITA Cornell Ot 906.3 11/05/2014 CEDRICK VILLANUEVA, KAVITA Cornell Ot E929.3 11/05/2014 CEDRICK VILLANUEVA, KAVITA Cornell Ot V45.82 11/12/2014 TREVOR VILLANUEVA, SHANTANU E Ot 272.4 11/12/2014 TREVOR VILLANUEVA, SHANTANU E Ot 401.9 11/12/2014 TREVOR VILLANUEVA, SHANTANU E Ot 414.01 11/12/2014 TREVOR VILLANUEVA, SHANTANU E Ot 530.81 11/12/2014 TREVOR VILLANUEVA, SHANTANU E Ot 564.00 11/12/2014 TREVOR VILLANUEVA, SHANTANU E Ot 682.6 11/12/2014 TREVOR VILLANUEVA, SHANTANU E Ot 724.5 11/12/2014 TREVOR VILLANUEVA, SHANTANU E Ot V45.82 11/12/2014 TREVOR VILLANUEVA, SHANTANU E Ot V54.17 11/12/2014 TREVOR VILLANUEVA, SHANTANU E Ot V57.89 11/13/2014 TREVOR VILLANUEVA, SHANTANU E Ot 272.4 11/13/2014 TREVOR VILLANUEVA, SHANTANU E Ot 401.9 11/13/2014 TREVOR VILLANUEVA, SHANTANU E Ot 414.01 11/13/2014 TREVOR VILLANUEVA, SHANTANU E Ot 530.81 11/13/2014 TREVOR VILLANUEVA, SHANTANU E Ot 564.00 11/13/2014 TREVOR VILLANUEVA, SHANTANU E Ot 682.6 11/13/2014 TREVOR VILLANUEVA, SHANTANU E Ot 724.5 11/13/2014 TREVOR VILLANUEVA, SHANTANU E Ot V45.82 11/13/2014 TREVOR VILLANUEVA, SHANTANU E Ot V54.17 11/13/2014 TREVOR VILLANUEVA, SHANTANU E Ot V57.89 11/13/2014 CEDRICK VILLANUEVA, KAVITA Cornell Ot 924.5 11/13/2014 CEDRICK VILLANUEVA, KAVITA Cornell Ot E000.8 11/13/2014 CEDRICK VILLANUEVA, KAVITA Cornell Ot E849.0 11/13/2014 CEDRICK VILLANUEVA, KAVITA Cornell Ot E888.9 12/16/2014 CEDRICK VILLANUEVA, KAVITA Cornell Ot 440.23 12/16/2014 CEDRICK VILLANUEVA, KAVITA Cornell Ot 457.1 12/16/2014 CEDRICK VILLANUEVA, KAVITA Cornell Ot 707.12 12/16/2014 CEDRICK VILLANUEVA, KAVITA Cornell Ot 998.83 12/23/2014 AMY VILLANUEVA, ROBBY Yousif Ot 440.23 12/23/2014 AMY VILLANUEVA, ROBBY Yousif Ot 707.12 12/26/2014 AMY VILLANUEVA, ROBBY Yousif Ot 440.23 12/26/2014 AMY VILLANUEVA, ROBBY Yousif Ot 707.12 01/21/2015 CEDRICK VILLANUEVA, KAVITA Cornell Ot 440.23 01/21/2015 CEDRICK VILLANUEVA, KAVITA Cornell Ot 457.1 01/21/2015 CEDRICK VILLANUEVA, KAVITA Cornell Ot 707.12 01/21/2015 CEDRICK VILLANUEVA, KAVITA Cornell Ot 998.83 01/22/2015 CEDRICK VILLANUEVA, KAVITA Cornell Ot 440.23 01/22/2015 CEDRICK VILLANUEVA, AKVITA Cornell Ot 457.1 01/22/2015 CEDRICK VILLANUEVA, KAVITA Cornell Ot 707.12 01/22/2015 CEDRICK VILLANUEVA, KAVITA Cornell Ot 998.83 01/28/2015 CEDRICK VILLANUEVA, KAVITA Cornell Ot 440.23 01/28/2015 CEDRICK VILLANUEVA, KAVITA Cornell Ot 457.1 01/28/2015 CEDRICK VILLANUEVA, KAVITA Cornell Ot 707.12 01/28/2015 CEDRICK VILLANUEVA, KAVITA Cornell Ot 998.83 02/11/2015 CEDRICK VILLANUEVA, KAVITA Cornell Ot I70.232 02/11/2015 KAVITA PHILIP MD Ot I89.0 02/11/2015 CEDRICK VILLANUEVA, KAVITA Cornell Ot T81.89XS 01/14/2016 CEDRICK VILLANUEVA, KAVITA Cornell Ot M54.2 CERVICALGIA 01/14/2016 KAVITA PHILIP MD Ot M54.5 LOW BACK PAIN 01/23/2016 KAVITA PHILIP MD Ot M54.2 CERVICALGIA 01/23/2016 KAVITA PHILIP MD Ot M54.5 LOW BACK PAIN 01/26/2016 KAVITA PHILIP MD Ot M54.2 CERVICALGIA 01/26/2016 KAVITA PHILIP MD Ot M54.5 LOW BACK PAIN 01/27/2016 KAVITA PHILIP MD Ot M54.2 CERVICALGIA 01/27/2016 KAVITA PHILIP MD Ot M54.5 LOW BACK PAIN 03/24/2016 KAVITA PHILIP MD Ot M54.2 CERVICALGIA 03/24/2016 KAVITA PHILIP MD Ot M54.5 LOW BACK PAIN 03/24/2016 KAVITA PHILIP MD Ot M54.2 CERVICALGIA 03/24/2016 KAVITA PHILIP MD Ot M54.5 LOW BACK PAIN 10/08/2016 COLLEEN OVIEDO DO Ot D72.829 ELEVATED WHITE BLOOD CELL COUNT, UNSPECI 10/08/2016 IVELISSE SANCHES COLLEEN Ot I10 ESSENTIAL (PRIMARY) HYPERTENSION 10/08/2016 CECILIA OVIEDO DOI Ot K21.9 GASTRO-ESOPHAGEAL REFLUX DISEASE WITHOUT 10/08/2016 IVELISSE SANCHES COLLEEN Ot K59.09 OTHER CONSTIPATION 10/08/2016 IVELISSE SANCHES COLLEEN Ot S00.83XA CONTUSION OF OTHER PART OF HEAD, INITIAL 10/08/2016 IVELISSE SANCHES COLLEEN Ot S79.912A UNSPECIFIED INJURY OF LEFT HIP, INITIAL 10/08/2016 IVELISSE SANCHES COLLEEN Ot W19.XXXA UNSPECIFIED FALL, INITIAL ENCOUNTER 10/08/2016 IVELISSE SANCHES COLLEEN Ot Y92.[address] [facility] Procedures Results Test Result Range Complete blood count (CBC) with automated white blood cell (WBC) differential - 10/07/16 20:10 Blood leukocytes automated count (number/volume) 20.3 10*3/ uL 4.3-11.0 Blood erythrocytes automated count (number/volume) 4.51 10*6 /uL 4.35-5.85 Venous blood hemoglobin measurement (mass/volume) 13.6 g/dL 11.5-16.0 Blood hematocrit (volume fraction) 42 % 35-52 Automated erythrocyte mean corpuscular volume 93 [foz_us] 80-99 Automated erythrocyte mean corpuscular hemoglobin (mass per erythrocyte) 30 pg 25-34 Automated erythrocyte mean corpuscular hemoglobin concentration measurement ( mass/volume) 33 g/dL 32-36 Automated erythrocyte distribution width ratio 12.9 % 10.0-14.5 Automated blood platelet count (count/volume) 234 10*3/uL 130-400 Automated blood platelet mean volume measurement 10.6 [foz_ us] 7.4-10.4 Automated blood neutrophils/100 leukocytes 86 % 42-75 Automated blood lymphocytes/100 leukocytes 6 % 12-44 Blood monocytes/100 leukocytes 8 % 0-12 Automated blood eosinophils/100 leukocytes 1 % 0-10 Automated blood basophils/100 leukocytes 0 % 0-10 Blood neutrophils automated count (number/volume) 17.3 10*3 1.8-7.8 Blood lymphocytes automated count (number/volume) 1.2 10*3 1.0-4.0 Blood monocytes automated count (number/volume) 1.6 10*3 0.0-1.0 Automated eosinophil count 0.1 10*3/uL 0.0-0.3 Automated blood basophil count (count/volume) 0.1 10*3/uL 0.0-0.1 Blood manual differential performed detection - 10/07/16 20:10 Blood monocytes/100 leukocytes 8 % NRG Manual blood segmented neutrophils/100 leukocytes 81 % NRG Blood band neutrophils/100 leukocytes 3 % NRG Manual blood lymphocytes/100 leukocytes 7 % NRG Manual eosinophils/100 leukocytes in nose 1 % NRG Manual blood basophils/100 leukocytes 0 % NRG Blood erythrocyte morphology finding identification [facility] Comprehensive metabolic panel - 10/07/16 20:10 Serum or plasma sodium measurement (moles/volume) 140 mmol/ L 135-145 Serum or plasma potassium measurement (moles/volume) 4.3 mmol/L 3.6-5.0 Serum or plasma chloride measurement (moles/volume) 107 mmol /L 98-107 Carbon dioxide 20 mmol/L 21-32 Serum or plasma anion gap determination (moles/volume) 13 mmol/L 5-14 Serum or plasma urea nitrogen measurement (mass/volume) 26 mg/dL 7-18 Serum or plasma creatinine measurement (mass/volume) 0.80 mg /dL 0.60-1.30 Serum or plasma urea nitrogen/creatinine mass ratio 33 0-20 Serum or plasma creatinine measurement with calculation of estimated glomerular filtration rate > NRG Serum or plasma glucose measurement (mass/volume) 104 mg/dL 70-105 Serum or plasma calcium measurement (mass/volume) 9.0 mg/dL 8.5-10.1 Serum or plasma total bilirubin measurement (mass/volume) 0.4 mg/dL 0.1-1.0 Serum or plasma alkaline phosphatase measurement (enzymatic activity/volume) 71 U/L 40-136 Serum or plasma aspartate aminotransferase measurement (enzymatic activity/ volume) 13 U/L 5-34 Serum or plasma alanine aminotransferase measurement (enzymatic activity/volume ) 18 U/L 0-55 Serum or plasma protein measurement (mass/volume) 7.1 g/dL 6.4-8.2 Serum or plasma albumin measurement (mass/volume) 4.3 g/dL 3.2-4.5 Complete blood count (CBC) with automated white blood cell (WBC) differential - 10/08/16 06:13 Blood leukocytes automated count (number/volume) 11.6 10*3/ uL 4.3-11.0 Blood erythrocytes automated count (number/volume) 4.24 10*6 /uL 4.35-5.85 Venous blood hemoglobin measurement (mass/volume) 12.7 g/dL 11.5-16.0 Blood hematocrit (volume fraction) 40 % 35-52 Automated erythrocyte mean corpuscular volume 93 [foz_us] 80-99 Automated erythrocyte mean corpuscular hemoglobin (mass per erythrocyte) 30 pg 25-34 Automated erythrocyte mean corpuscular hemoglobin concentration measurement ( mass/volume) 32 g/dL 32-36 Automated erythrocyte distribution width ratio 13.0 % 10.0-14.5 Automated blood platelet count (count/volume) 228 10*3/uL 130-400 Automated blood platelet mean volume measurement 11.3 [foz_ us] 7.4-10.4 Automated blood neutrophils/100 leukocytes 74 % 42-75 Automated blood lymphocytes/100 leukocytes 10 % 12-44 Blood monocytes/100 leukocytes 13 % 0-12 Automated blood eosinophils/100 leukocytes 3 % 0-10 Automated blood basophils/100 leukocytes 1 % 0-10 Blood neutrophils automated count (number/volume) 8.6 10*3 1.8-7.8 Blood lymphocytes automated count (number/volume) 1.2 10*3 1.0-4.0 Blood monocytes automated count (number/volume) 1.5 10*3 0.0-1.0 Automated eosinophil count 0.3 10*3/uL 0.0-0.3 Automated blood basophil count (count/volume) 0.1 10*3/uL 0.0-0.1 Comprehensive metabolic panel - 10/08/16 06:13 Serum or plasma sodium measurement (moles/volume) 139 mmol/ L 135-145 Serum or plasma potassium measurement (moles/volume) 4.2 mmol/L 3.6-5.0 Serum or plasma chloride measurement (moles/volume) 105 mmol /L 98-107 Carbon dioxide 22 mmol/L 21-32 Serum or plasma anion gap determination (moles/volume) 12 mmol/L 5-14 Serum or plasma urea nitrogen measurement (mass/volume) 22 mg/dL 7-18 Serum or plasma creatinine measurement (mass/volume) 0.73 mg /dL 0.60-1.30 Serum or plasma urea nitrogen/creatinine mass ratio 30 0-20 Serum or plasma creatinine measurement with calculation of estimated glomerular filtration rate > NRG Serum or plasma glucose measurement (mass/volume) 99 mg/dL 70-105 Serum or plasma calcium measurement (mass/volume) 8.9 mg/dL 8.5-10.1 Serum or plasma total bilirubin measurement (mass/volume) 0.4 mg/dL 0.1-1.0 Serum or plasma alkaline phosphatase measurement (enzymatic activity/volume) 71 U/L 40-136 Serum or plasma aspartate aminotransferase measurement (enzymatic activity/ volume) 13 U/L 5-34 Serum or plasma alanine aminotransferase measurement (enzymatic activity/volume ) 16 U/L 0-55 Serum or plasma protein measurement (mass/volume) 6.7 g/dL 6.4-8.2 Serum or plasma albumin measurement (mass/volume) 3.9 g/dL 3.2-4.5 Complete urinalysis with reflex to culture - 10/08/16 12:00 Urine color determination YELLOW NRG Urine clarity determination CLEAR NRG Urine pH measurement by test strip 6 5- 9 Specific gravity of urine by test strip 1.020 1.016-1.022 Urine protein assay by test strip, semi-quantitative 1+ NEGATIVE Urine glucose detection by automated test strip NEGATIVE NEGATIVE Erythrocytes detection in urine sediment by light microscopy 5+ NEGATIVE Urine ketones detection by automated test strip NEGATIVE NEGATIVE Urine nitrite detection by test strip NEGATIVE NEGATIVE Urine total bilirubin detection by test strip NEGATIVE NEGATIVE Urine urobilinogen measurement by automated test strip (mass/volume) NORMAL NORMAL Urine leukocyte esterase detection by dipstick 3+ NEGATIVE Automated urine sediment erythrocyte count by microscopy (number/high power field) [HPF] NRG Automated urine sediment leukocyte count by microscopy (number/high power field ) [HPF] NRG Bacteria detection in urine sediment by light microscopy NEGATIVE NRG Squamous epithelial cells detection in urine sediment by light microscopy 2-5 NRG Crystals detection in urine sediment by light microscopy NONE NRG Casts detection in urine sediment by light microscopy NONE NRG Mucus detection in urine sediment by light microscopy NEGATIVE NRG Complete urinalysis with reflex to culture YES NRG Bacterial urine culture - 10/08/16 12:00 Bacterial urine culture [id number] NRG COLONY COUNT 10,000/ML - 100,000/ML NRG FTX;REPORTABLE SEE COMMENT NRG Encounters ACCT No. Visit Date/Time Discharge Status Pt. Type Provider Facility Loc./Unit Complaint [id number] 10/07/2016 18:17:00 2016 15:45:00 DIS Outpatient COLLEEN OVIEDO DO [facility] 4TH FALL,SCULP HEMATOMA,SEVERE R HIP PAIN AND INABILIT [id number] 03/26/2016 14:29:00 2015 15:44:00 DIS Outpatient KAVITA PHILIP MD [facility] REHAB LBP;CERVICALGIA [id number] 01/21/2016 13:24:00 2015 17:00:00 DIS Outpatient KAVITA PHILIP MD [facility] REHAB LBP;CERVICALGIA [id number] 02/11/2015 13:19:00 2014 15:00:00 DIS Outpatient KAVITA PHILIP MD [facility] WOUNDCARE [id number] 01/21/2015 13:17:00 2014 00:01:00 DIS Outpatient KAVITA PHILIP MD [facility] WOUNDCARE [id number] 11/29/2014 09:10:00 2014 23:59:59 CLS Outpatient ROBBY REYES MD [facility] RAD [id number] 11/05/2014 13:21:00 2014 13:30:00 DIS Inpatient SHANTANU MURRAY MD [facility] IRF [id number] 10/31/2014 08:18:00 2014 12:00:00 DIS Inpatient KAVITA PHILIP MD [facility] SURGICAL [id number] 10/24/2014 18:39:00 2014 08:09:00 DIS Inpatient KAVITA PHILIP MD [facility] SURGICAL [id number] 10/21/2014 14:32:00 2014 23:59:59 CLS Outpatient KAVITA PHILIP MD [facility] [id number] 08/22/2014 16:43:00 2014 13:45:00 DIS Inpatient SHANTANU MURRAY MD [facility] IRF [id number] 08/17/2014 19:21:00 2014 21:50:00 DIS Emergency JAMES DO, JAJA K [facility] ER [id number] 09/07/2013 07:05:00 2013 10:55:00 DIS Outpatient ANGELA DPM, LIAM Q [facility] [id number] 09/05/2013 12:25:00 2013 23:59:59 CLS Outpatient ANGELA DPShakeel, LIAM Q [facility] PREOP [id number] 05/23/2013 08:11:00 2013 12:45:00 DIS Outpatient ELVIRA BAINS MD [facility] [id number] 05/16/2013 07:22:00 2013 23:59:59 CLS Outpatient ELVIRA BAINS MD [facility] PREOP [id number] 10/08/2016 15:46:00 ACT Inpatient SHANTANU MURRAY MD [facility] IR[facility] [id number] 03/27/2012 11:57:00 Document Registration [id number] 01/21/2012 09:11:00 Document Registration [id number] 11/22/2011 09:52:00 Document Registration [id number] 05/04/2010 10:30:00 Document Registration
--- NOTE | 2016-10-13 15:12 | Occupational Ther Daily Note ---
OT Current Status-Daily Note Subjective Pt seen in room, up in recliner, agreeable to OT. Pt initially did not mention pain but, when she saw how much difficulty she was having with walking, asked for pain meds Appearance Alert, cooperative Mental Status/Objective Functional [place] Measure 0=Not Assessed/NA 4=Minimal Assistance 1=Total Assistance 5=Supervision or Setup 2=Maximal Assistance 6=Modified [place] 3=Moderate Assistance 7=Complete [place] ADL-Treatment Functional [place] Measure 0=Not Assessed/NA 4=Minimal Assistance 1=Total Assistance 5=Supervision or Setup 2=Maximal Assistance 6=Modified [place] 3=Moderate Assistance 7=Complete IndependenceIRFPAI Quality Coding Scale 6 Independent with activity with or without an assistive device 5 Patient requires set up or clean up by helper. Patient completes activity by themselves 4 Supervision or touching assist (CGA). [place] provide cues , steadying assist 3 The helper provides less than half the effort to complete the activity 2 The helper provides more than half the effort to complete the activity 1 Dependent. The helper does all the effort to complete an activity 7 Patient refused to complete or attempt activity 9 The patient did not perform the activity before the current illness or injury 88 Not attempted due to Medical conditions or safety concerns Transfers (B, C, W/C) (FIM): 4 (Pt attempted 4-5 times to get out of recliner but needed minimal assistance to get up. Also has to stand a few seconds before she can walk.) Other Treatment Pt walked to gym with SBA for safety, FWW, taking smaller steps and not swinging through as well as she did this am. She was able to sit down on chair with arms with SBA but had difficulty pushing up out of chair at end of tx. Pt did 13 minutes bilat UE exercise on arm bike set at 15W, with one brief recovery period. Strengthening to help with transfers. Pt educ on Food Funnel which goes over heel of shoe and prevents back of shoe from folding down. Pt provided with resource to order one if she desires. Pt walked back to room SBA, FWW and got into bed with SBA. Pt left in bed, 4 rails up, all needs met. Education OT Patient Education: Exercise program, Purpose of tx/functional activities, Use of adapted equipment Teaching Recipient: Patient Teaching Methods: Discussion Response to Teaching: Verbalize Understanding OT Short Term Goals Short Term Goals Time Frame: Oct 15, 2016 Bathing(FIM): 5 Lower Body Dressing(FIM): 5 Additional Short Term Goals: 2-Verbalize Understanding, 3-ImproveStrength/Desean 1=Demonstrate adherence to instructed precautions during ADL tasks. 2=Patient will verbalize/demonstrate understanding of assistive devices/ modifications for ADL. 3=Patient will improve strength/tolerance for activity to enable patient to perform ADL's. OT Alf Goals Alf Goals Time Frame: Oct 22, 2016 Eating (FIM): 7 (No dentures) Eating (QC): 6 Groomin Oral Hygiene (QC): 6 Bathing(FIM): 6 Shower/Bathe Self (QC): 6 Upper Body Dressing(FIM): 6 Upper Body Dressing (QC): 6 Lower Body Dressing(FIM): 6 Lower Body Dressing (QC): 6 On/Off Footwear (QC): 6 Toileting(FIM): 6 Toileting Hygiene (QC): 6 Toilet/Commode Transfer(FIM): 6 Toilet/Commode Transfer (QC): 6 Shower Transfer(FIM): 6 Additional Goals: 2-Verbalize Understanding, 3-ImproveStrength/Desean 1=Demonstrate adherence to instructed precautions during ADL tasks. 2=Patient will verbalize/demonstrate understanding of assistive devices/ modifications for ADL. 3=Patient will improve strength/tolerance for activity to enable patient to perform ADL's. OT Education/Plan Problem List/Assessment Pt would benefit from skilled OT to increase her independence in basic self care to allow her to safely return home to live independently. Discharge Recommendations Plan/Recommendations: Continue POC Treatment Plan/Plan of Care Patient would benefit from OT for education, treatment and training to promote independence in ADL's, mobility, safety and/or upper extremity function for ADL' s. Plan of Care: ADL Retraining, Functional Mobility, Group Exercise/Act as Ind ( education, exercise, activity tolerance, functional activities, socialization), UE Funct Exercise/Act, UE Neuromus Re-Ed/Coord Treatment Duration: Oct 22, 2016 Visits Per Week: 10-11 Minutes/Day (M-F): 75-90 Minutes/Day (Sat/Rodriguez): PRN Agreement: Yes Rehab Potential: Good Time/GCodes Start Time: 13:05 Stop Time: 13:40 Total Time Billed (hr/min): 35 Billed Treatment Time visit, 15 minutes functional activity, 20 minutes exercise ZEINA CAMPOS OT Oct 13, 2016 15:12
--- NOTE | 2016-10-13 16:00 | Physical Therapy Daily Note ---
PT Daily Note-Current Subjective Agreeable to PT. No complaints. Transfers Functional [place] Measure 0=Not Assessed/NA 4=Minimal Assistance 1=Total Assistance 5=Supervision or Setup 2=Maximal Assistance 6=Modified [place] 3=Moderate Assistance 7=Complete IndependenceIRFPAI Quality Coding Scale 6 Independent with activity with or without an assistive device 5 Patient requires set up or clean up by helper. Patient completes activity by themselves 4 Supervision or touching assist (CGA). [place] provide cues , steadying assist 3 The helper provides less than half the effort to complete the activity 2 The helper provides more than half the effort to complete the activity 1 Dependent. The helper does all the effort to complete an activity 7 Patient refused to complete or attempt activity 9 The patient did not perform the activity before the current illness or injury 88 Not attempted due to Medical conditions or safety concerns Transfers (B, C, W/C) (FIM): 4 Supine to/from Sit: 4 (CGA and tactile cues to sequence. Performed this transfer x 2) Sit to/from Stand: 4 (CGA for safety. ) Gait Training Does the Patient Walk?: Yes Gait (FIM): 4 Distance: 150 ft x 2 Gait Assistive Device: FWW Slow gait with decreased step length. Steady. Exercises NuStep Minutes: 10 (to increase CV function and funtional act tolerance. ) Assessment Current Status: Good Progress Functional gait and transfers are improving; still needs light assist and is unsafe to ambulate without assist. Slow with transfers and gait PT Pot Puller Goals Pot Puller Goals PT Pot Puller Goals Time Frame: Oct 29, 2016 Transfers (B,C,W/C) (FIM): 6 Sit to Lying (QC): 6 Lying-Sitting on Side/Bed(QC): 6 Sit to Stand (QC): 6 Rollin Roll Left to Right (QC): 6 Chair/Sgc-cp-Xnbkt Xfer(QC): 6 Car Transfer (QC): 6 Does the Patient Walk: Yes Gait (FIM): 6 Gait distance (FIM): 3=150 ft Distance: 250' Walk 10 feet (QC): 5 Walk 10ft-Uneven Surface(QC): 5 Walk 50ft with 2 Turns (QC): 5 Walk 150 ft (QC): 5 Gait Level of Assist: 6 Gait Assistive Device: FWW Does the Pt use WC or Scooter?: No Stairs (FIM): 2 # of Steps: 4 1 Step (curb) (QC): 5 4 Steps (QC): 5 12 Steps (QC): 9 Stairs Level Of Assist: 6 Picking up an Object (QC): 5 PT Plan Problem List Problem List: Activity Tolerance, Functional Strength, Safety, Balance, Gait, Transfer, Bed Mobility Treatment/Plan Treatment Plan: Continue Plan of Care Treatment Plan: Bed Mobility, Education, Functional Activity [place], Functional Strength, Group Therapy, Gait, Safety, Therapeutic Exercise, Transfers Treatment Duration: Oct 29, 2016 Visits Per Week: 11 Minutes/Day (M-F): 60-90 Minutes/Day (Sat/Rodriguez): PRN Safety Risks/Education Patient Education: Gait Training, Safety Issues Teaching Recipient: Patient Teaching Methods: Demonstration, Discussion Response to Teaching: Verbalize Understanding, Reinforcement Needed Time/GCodes Time In: 1400 Time Out: 1430 Total Billed Treatment Time: 30 Total Billed Treatment visit EX 10 GT 20 SHAHNAZ SMITH PT Oct 13, 2016 16:00
[2016-10-13 18:00] VITALS: BP 152/75
[2016-10-13] MEDS: meTOproloL SUCCINATE 50 MG (TOPROL XL) TAB PO SCH (21:20)
[2016-10-13] MEDS: AMITRIPTYLINE 25 MG (ELAVIL) TAB PO SCH (21:20)
[2016-10-14 05:19] VITALS: BP 152/75
[2016-10-14] MEDS: MULTIVIT W/MINERALS TAB (THERAGRAN M) PO SCH (06:07)
[2016-10-14] MEDS: IBUPROFEN TABLET 200 MG TAB PO PRN ×2 (06:08→21:17)
[2016-10-14] MEDS: amLODIPine 5 MG (NORVASC) TAB PO SCH (07:40)
[2016-10-14] MEDS: DOCUSATE SODIUM 100 MG (COLACE) CAP PO SCH (07:41)
[2016-10-14] MEDS: HYDROcodone/APAP 5 MG/325 MG (LORTAB) TAB PO PRN ×2 (07:41→13:15)
[2016-10-14] MEDS: lisINopril 10 MG (PRINIVIL) TAB PO SCH (07:41)
[2016-10-14] MEDS: ASPIRIN E.C. 325 MG (ECOTRIN) TABLET PO SCH (07:41)
[2016-10-14] MEDS: DICLOFENAC 1% GEL 100 GM (VOLTAREN) TUBE TOP SCH ×4 (07:42→21:16)
--- NOTE | 2016-10-14 09:41 | Physical Therapy Daily Note ---
PT Daily Note-Current Subjective Agreeable to PT. Seems to voice increased right groin/hip pain this date. Pain Numeric Pain Scale: 7 Location: Right Location Body Site: Hip (groin area) Pain Description: Ache (sore) Comment: Pt has taken po meds and nurse applied gel Mental Status Patient Orientation: Person, Place, Time, Situation Transfers Functional [place] Measure 0=Not Assessed/NA 4=Minimal Assistance 1=Total Assistance 5=Supervision or Setup 2=Maximal Assistance 6=Modified [place] 3=Moderate Assistance 7=Complete IndependenceIRFPAI Quality Coding Scale 6 Independent with activity with or without an assistive device 5 Patient requires set up or clean up by helper. Patient completes activity by themselves 4 Supervision or touching assist (CGA). [place] provide cues , steadying assist 3 The helper provides less than half the effort to complete the activity 2 The helper provides more than half the effort to complete the activity 1 Dependent. The helper does all the effort to complete an activity 7 Patient refused to complete or attempt activity 9 The patient did not perform the activity before the current illness or injury 88 Not attempted due to Medical conditions or safety concerns Transfers (B, C, W/C) (FIM): 4 (CGA and occas reminders for hand placement) Supine to/from Sit: 5 (slowly) Sit to/from Stand: 4 (CGA and skille cues/rerminders for hand placement) Gait Training Gait (FIM): 4 Distance: 150 ft x2, 50 ft x 5 Gait Assistive Device: FWW Slow gait and slightly antalgic due to right hip/groin discomfort; decreased step through of the left due to right pain with WB. Stair Training Stair Training: Handrails/: 2 handrails Stairs (FIM): 2 #of Steps: 4 Level of Assist: 4 CGA on stairs with reminders for sequencing and safety. Treatments Sit to stand reps to increase LE strength and improve transfer ability 2 sets of 5 with SBA. First stand is typically more difficult than subsequent. Nu Step x 10 minutes to promote LE strength as well as cardio vascular endurance /training to facilitate increased gait tolerance. Pt toileted at end of session; SBA with toilet transfer and dirk care. SBA as she stood at sink to wash her hands. Assessment Current Status: Good Progress Seems to have more pain today, nurse and doctor notified. Pt progressing with mobility and cooperative. PT Senior Research Fellow Goals Senior Research Fellow Goals PT Senior Care Goals Time Frame: Oct 29, 2016 Transfers (B,C,W/C) (FIM): 6 Sit to Lying (QC): 6 Lying-Sitting on Side/Bed(QC): 6 Sit to Stand (QC): 6 Rollin Roll Left to Right (QC): 6 Chair/Doj-lb-Riprf Xfer(QC): 6 Car Transfer (QC): 6 Does the Patient Walk: Yes Gait (FIM): 6 Gait distance (FIM): 3=150 ft Distance: 250' Walk 10 feet (QC): 5 Walk 10ft-Uneven Surface(QC): 5 Walk 50ft with 2 Turns (QC): 5 Walk 150 ft (QC): 5 Gait Level of Assist: 6 Gait Assistive Device: FWW Does the Pt use WC or Scooter?: No Stairs (FIM): 2 # of Steps: 4 1 Step (curb) (QC): 5 4 Steps (QC): 5 12 Steps (QC): 9 Stairs Level Of Assist: 6 Picking up an Object (QC): 5 PT Plan Problem List Problem List: Activity Tolerance, Functional Strength, Safety, Balance, Gait, Transfer, Bed Mobility Treatment/Plan Treatment Plan: Continue Plan of Care Treatment Plan: Bed Mobility, Education, Functional Activity [place], Functional Strength, Group Therapy, Gait, Safety, Therapeutic Exercise, Transfers Treatment Duration: Oct 29, 2016 Visits Per Week: 11 Minutes/Day (M-F): 60-90 Minutes/Day (Sat/Rodriguez): PRN Safety Risks/Education Patient Education: Transfer Techniques, Steps Teaching Recipient: Patient Teaching Methods: Demonstration, Discussion Response to Teaching: Reinforcement Needed Time/GCodes Time In: 815 Time Out: 930 Total Billed Treatment Time: 75 Total Billed Treatment visit Gt 30 FA 30 EX 15 SHAHNAZ SMITH PT Oct 14, 2016 09:40
--- NOTE | 2016-10-14 10:44 | PM & R (SOAP) Progress Note ---
Subjective Time Seen by Provider: 08:15 Subjective/Events-last exam Patient was seen in her room earlier today.Discussed case with RN Patient with persistent rt hip pain -Will recheck Xray See orders.Patient min assist for transfers Review of Systems Musculoskeletal: leg pain Objective Exam Last Set of Vital Signs Vital Signs Date Time Temp Pulse Resp B/P (MAP) Pulse Ox O2 Delivery O2 Flow Rate FiO2 10/14/16 05:19 96.7 72 18 152/75 95 Room Air Capillary Refill : I&O Intake and Output 10/14/16 00:00 Intake Total 1460 ml Balance 1460 ml Intake Oral 1460 ml # Voids 8 # Bowel Movements 1 General: Alert, Oriented X3, Cooperative, No Acute Distress HEENT: PERRLA, EOMI, Mucous Memb Moist/[place], Other (ecchymosis rt periorbital area) Neck: Supple, No JVD Lungs: Clear to Auscultation Heart: Regular Rate Abdomen: Normal Bowel Sounds, Soft, No Tenderness Extremities: No Edema Skin: Other (bruising as per above) Neuro: Other (guarding rt hip with tenderness) Assessment/Plan Assessment S/P fall with rt hip contusion with underlying DJD Chronic low back pain HTN controlled Pain management Plan Continue PT/OT Adjust meds as needed Trial of Voltaran gel-done Team Conference held yesterday- 10/13/16 See report for full functional update and POC and ELOS Recheck Xray rt hip Consider Ortho consult SHANTANU MURRAY MD Oct 14, 2016 10:44
--- NOTE | 2016-10-14 11:41 | Progress Note-Hospitalist ---
Progress Note HPI/CC on Admission CC: Medical management along with rehab following fall and severe right hip pain unable to ambulate HPI: This is an 86-year-old white female clinic patient of Dr. Avaloss Judy presents following a fall with no fracture noted on the right where she was having pain on x-ray or CT scan but osteoarthritis appearing severe in the joint causing the patient to be unable to ambulate and she lives at home so she was stabilized on the acute medical floor and transferred to acute rehabilitation to [facility] prior to going home. Currently her bowels are moving she is requesting a DO NOT RESUSCITATE which order was placed and overall very appreciative of the fact that inpatient rehabilitation is available here to help her because she could not go home in the states she was in yesterday. Progress Notes/Assess & Plan Date Seen 10/14/16 Time Seen by Provider: 10:45 Admission Dx/Process Assessment: Fall with subsequent right hip pain unable to ambulate and lives alone with severe OA of the right hip joint Hypertension [id number] much improved now on Norvasc 5mg daily Leukocytosis due to stress response Chronic constipation improved now on meds CAD prior CABG HLP Diagonsis/Assessment & Plan Patient still having a lot of hip pain so x-rays were once again ordered pelvic and hip and nose results are pending Bowel movements are regular Denies any other issues No fever, vital signs stable, pleasant Regular rate rhythm, clear to auscultation bilaterally No edema Assessment: Fall with subsequent right hip pain unable to ambulate and lives alone with severe OA of the right hip joint Hypertension [id number] much improved now on Norvasc 5mg daily Leukocytosis due to stress response Chronic constipation improved now on meds CAD prior CABG HLP Plan: DO NOT RESUSCITATE as she requested an order was placed Maintain bowel regimen Maintain pain medication Rehabilitation with PT/OT Supportive care f/u on xray results COLLEEN OVIEDO DO Oct 14, 2016 11:41
--- NOTE | 2016-10-14 12:59 | Diagnostic Imaging Report ---
2 views of the right hip. INDICATION: Increasing pain. FINDINGS: There is severe joint space loss, subchondral sclerosis and osteophyte formation at the right hip. Subchondral geode is also seen at the right hip. No fracture, dislocation or radiopaque foreign body is seen. There are stents noted in the SFA. IMPRESSION: Severe right hip osteoarthritis. Dictated by: Dictated on workstation # [id number]
--- NOTE | 2016-10-14 13:38 | Diagnostic Imaging Report ---
AP view of the pelvis. INDICATION: Right hip pain. FINDINGS: There is markedly severe osteoarthritis of the right hip and mild to moderate osteoarthritis in the left hip. There is normal alignment. No fracture or dislocation. Normal alignment of the SI joints seen. Surgical sutures projecting over the right midabdomen is noted. There is moderate amounts of fecal material and suggestion of dilatation of the cecum noted filled with fecal material. Bilateral stents are seen in the right side within the SFA and on the left within the common femoral and SFA arteries. IMPRESSION: Bilateral hip osteoarthritis significantly worse on the right side. Dictated by: Dictated on workstation # [id number]
--- NOTE | 2016-10-14 15:48 | Progress Note-Standard ---
Standard Progress Note Progress Notes/Assess & Plan Date Seen by Provider: Oct 14, 2016 Time Seen by Provider: 15:47 Progress/Assessment & Plan please see consult plan for right hip injection tomorrow with C arm assistance in OR ROBBY SHEIKH MD Oct 14, 2016 15:47
--- NOTE | 2016-10-14 15:48 | Physical Therapy Daily Note ---
PT Daily Note-Current Subjective Agreeable. Transfers Functional [place] Measure 0=Not Assessed/NA 4=Minimal Assistance 1=Total Assistance 5=Supervision or Setup 2=Maximal Assistance 6=Modified [place] 3=Moderate Assistance 7=Complete IndependenceIRFPAI Quality Coding Scale 6 Independent with activity with or without an assistive device 5 Patient requires set up or clean up by helper. Patient completes activity by themselves 4 Supervision or touching assist (CGA). [place] provide cues , steadying assist 3 The helper provides less than half the effort to complete the activity 2 The helper provides more than half the effort to complete the activity 1 Dependent. The helper does all the effort to complete an activity 7 Patient refused to complete or attempt activity 9 The patient did not perform the activity before the current illness or injury 88 Not attempted due to Medical conditions or safety concerns Treatments Pt ambulated 150 ft x 2 and 50 ft x 2 with FWW with SB-CGA. Seated B LE ther ex x 15 to improve strength for gait and transfers to include AP, LAQ, hip flexion, hip abduction. Pt transferred sit to supine with SBA, slowly and takes extra time but did not need physical assist. In bed post treatmeht. Assessment Progressing with strength and mobility. Tranfers improved as well. PT Shelter Goals Packing And Wrapping Supervisor Goals PT Shelter Goals Time Frame: Oct 29, 2016 Transfers (B,C,W/C) (FIM): 6 Sit to Lying (QC): 6 Lying-Sitting on Side/Bed(QC): 6 Sit to Stand (QC): 6 Rollin Roll Left to Right (QC): 6 Chair/Rpv-cp-Leyvt Xfer(QC): 6 Car Transfer (QC): 6 Does the Patient Walk: Yes Gait (FIM): 6 Gait distance (FIM): 3=150 ft Distance: 250' Walk 10 feet (QC): 5 Walk 10ft-Uneven Surface(QC): 5 Walk 50ft with 2 Turns (QC): 5 Walk 150 ft (QC): 5 Gait Level of Assist: 6 Gait Assistive Device: FWW Does the Pt use WC or Scooter?: No Stairs (FIM): 2 # of Steps: 4 1 Step (curb) (QC): 5 4 Steps (QC): 5 12 Steps (QC): 9 Stairs Level Of Assist: 6 Picking up an Object (QC): 5 PT Plan Problem List Problem List: Activity Tolerance, Functional Strength Treatment/Plan Treatment Plan: Continue Plan of Care Treatment Plan: Bed Mobility, Education, Functional Activity [place], Functional Strength, Group Therapy, Gait, Safety, Therapeutic Exercise, Transfers Treatment Duration: Oct 29, 2016 Visits Per Week: 11 Minutes/Day (M-F): 60-90 Minutes/Day (Sat/Rodriguez): PRN Time/GCodes Time In: 1400 Time Out: 1430 Total Billed Treatment Time: 30 Total Billed Treatment vsiit GT 15 EX 15 SHAHNAZ SMITH PT Oct 14, 2016 15:48
--- NOTE | 2016-10-14 16:05 | Occupational Ther Daily Note ---
OT Current Status-Daily Note Subjective Pt seen in room, up in bed, agreeable to OT. Pain not mentioned but visible when weight bearing on R LE Appearance Alert, cooperative Mental Status/Objective Functional [place] Measure 0=Not Assessed/NA 4=Minimal Assistance 1=Total Assistance 5=Supervision or Setup 2=Maximal Assistance 6=Modified [place] 3=Moderate Assistance 7=Complete [place] ADL-Treatment pt walked with SBA for safety to and from bathroom but has some difficulty with putting full weight on R LE. FWW. All ADLs took more time due to slow and deliberate movements and discomfort Functional [place] Measure 0=Not Assessed/NA 4=Minimal Assistance 1=Total Assistance 5=Supervision or Setup 2=Maximal Assistance 6=Modified [place] 3=Moderate Assistance 7=Complete IndependenceIRFPAI Quality Coding Scale 6 Independent with activity with or without an assistive device 5 Patient requires set up or clean up by helper. Patient completes activity by themselves 4 Supervision or touching assist (CGA). [place] provide cues , steadying assist 3 The helper provides less than half the effort to complete the activity 2 The helper provides more than half the effort to complete the activity 1 Dependent. The helper does all the effort to complete an activity 7 Patient refused to complete or attempt activity 9 The patient did not perform the activity before the current illness or injury 88 Not attempted due to Medical conditions or safety concerns Bathing (FIM): 5 (Setup in shower. Washed and dried all parts, using shower ebnch, rgab bars, hand held shower. Some difficulty getting shower off hook and placing it back. Able to get up off bench without additional padding) Upper Body (FIM): 5 (Doffedn and donned shirt with setup) Lower Body Dressing (FIM): 5 (Setup, dressing stick , sock aid. Incl shoes and socks. FWW ) Toileting (FIM): 6 (Managed clothing and hygiene, BSc over toilet, FWW, grab bar) Toilet/Commode Transfer (FIM): 6 (On and off BSc over toilet, FWW) Shower Transfer(FIM): 4 (CGA for sidestepping in and out of shower, with difficulty weight bearing on R LE. Shower bench, grab bar, FWW) Pt left up in recliner, all needs met. Education OT Patient Education: Modified ADL techniques, Use of adapted equipment Teaching Recipient: Patient Teaching Methods: Discussion Response to Teaching: Verbalize Understanding OT Short Term Goals Short Term Goals Time Frame: Oct 15, 2016 Bathing(FIM): 5 Lower Body Dressing(FIM): 5 Additional Short Term Goals: 2-Verbalize Understanding, 3-ImproveStrength/[place] 1=Demonstrate adherence to instructed precautions during ADL tasks. 2=Patient will verbalize/demonstrate understanding of assistive devices/ modifications for ADL. 3=Patient will improve strength/tolerance for activity to enable patient to perform ADL's. 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 Coat Mill Operator Goals D[employer]at [employer] Operator Goals Time Frame: Oct 22, 2016 Eating (FIM): 7 (No dentures) Eating (QC): 6 Groomin Oral Hygiene (QC): 6 Bathing(FIM): 6 Shower/Bathe Self (QC): 6 Upper Body Dressing(FIM): 6 Upper Body Dressing (QC): 6 Lower Body Dressing(FIM): 6 Lower Body Dressing (QC): 6 On/Off Footwear (QC): 6 Toileting(FIM): 6 Toileting Hygiene (QC): 6 Toilet/Commode Transfer(FIM): 6 Toilet/Commode Transfer (QC): 6 Shower Transfer(FIM): 6 Additional Goals: 2-Verbalize Understanding, 3-ImproveStrength/[place]ese[place] 1=Demonstrate adherence to instructed precautions during ADL tasks. 2=Patient will verbalize/demonstrate understanding of assistive devices/ modifications for ADL. 3=Patient will improve strength/tolerance for activity to enable patient to perform ADL's. OT Education/Plan Problem List/Assessment Pt would benefit from skilled OT to increase her independence in basic self care to allow her to safely return home to live independently. Discharge Recommendations Plan/Recommendations: Continue POC Treatment Plan/Plan of Care Patient would benefit from OT for education, treatment and training to promote independence in ADL's, mobility, safety and/or upper extremity function for ADL' s. Plan of Care: ADL Retraining, Functional Mobility, Group Exercise/Act as Ind ( education, exercise, activity tolerance, functional activities, socialization), UE Funct Exercise/Act, UE Neuromus Re-Ed/Coord Treatment Duration: Oct 22, 2016 Visits Per Week: 10-11 Minutes/Day (M-F): 75-90 Minutes/Day (Sat/Rodriguez): PRN Agreement: Yes Rehab Potential: Good Time/GCodes Start Time: 10:35 Stop Time: 11:40 Total Time Billed (hr/min): 65 Billed Treatment Time visit, 65 minutes ADL ZEINA CAMPOS OT Oct 14, 2016 16:04
--- NOTE | 2016-10-14 16:11 | Occupational Ther Daily Note ---
OT Current Status-Daily Note Subjective Pt seen in room, up in recliner, agreeable to OT. Pt initially declined pain meds but, after walking to gym, agreed to ask for meds. Pain 8/10 in R hip Mental Status/Objective Functional [place] Measure 0=Not Assessed/NA 4=Minimal Assistance 1=Total Assistance 5=Supervision or Setup 2=Maximal Assistance 6=Modified [place] 3=Moderate Assistance 7=Complete [place] ADL-Treatment Functional [place] Measure 0=Not Assessed/NA 4=Minimal Assistance 1=Total Assistance 5=Supervision or Setup 2=Maximal Assistance 6=Modified [place] 3=Moderate Assistance 7=Complete IndependenceIRFPAI Quality Coding Scale 6 Independent with activity with or without an assistive device 5 Patient requires set up or clean up by helper. Patient completes activity by themselves 4 Supervision or touching assist (CGA). [place] provide cues , steadying assist 3 The helper provides less than half the effort to complete the activity 2 The helper provides more than half the effort to complete the activity 1 Dependent. The helper does all the effort to complete an activity 7 Patient refused to complete or attempt activity 9 The patient did not perform the activity before the current illness or injury 88 Not attempted due to Medical conditions or safety concerns Other Treatment Pt walked to gym with SBA for safety, FWW (about 150 feet) and transferred to chair with SBA. She did bilat UE activity with 1# weight on each arm to strengthen arms for transfers. She needed 4 trials to get out of chair with arms and then walked back to room SBA, FWW. Left up inrecliner, all needs met. Education OT Patient Education: Purpose of tx/functional activities Teaching Recipient: Patient OT Short Term Goals Short Term Goals Time Frame: Oct 15, 2016 Bathing(FIM): 5 Lower Body Dressing(FIM): 5 Additional Short Term Goals: 2-Verbalize Understanding, 3-ImproveStrength/Desean 1=Demonstrate adherence to instructed precautions during ADL tasks. 2=Patient will verbalize/demonstrate understanding of assistive devices/ modifications for ADL. 3=Patient will improve strength/tolerance for activity to enable patient to perform ADL's. OT Field Artillery Operations Specialist Goals Field Artillery Operations Specialist Goals Time Frame: Oct 22, 2016 Eating (FIM): 7 (No dentures) Eating (QC): 6 Groomin Oral Hygiene (QC): 6 Bathing(FIM): 6 Shower/Bathe Self (QC): 6 Upper Body Dressing(FIM): 6 Upper Body Dressing (QC): 6 Lower Body Dressing(FIM): 6 Lower Body Dressing (QC): 6 On/Off Footwear (QC): 6 Toileting(FIM): 6 Toileting Hygiene (QC): 6 Toilet/Commode Transfer(FIM): 6 Toilet/Commode Transfer (QC): 6 Shower Transfer(FIM): 6 Additional Goals: 2-Verbalize Understanding, 3-ImproveStrength/Desean 1=Demonstrate adherence to instructed precautions during ADL tasks. 2=Patient will verbalize/demonstrate understanding of assistive devices/ modifications for ADL. 3=Patient will improve strength/tolerance for activity to enable patient to perform ADL's. OT Education/Plan Problem List/Assessment Pt would benefit from skilled OT to increase her independence in basic self care to allow her to safely return home to live independently. Discharge Recommendations Plan/Recommendations: Continue POC Treatment Plan/Plan of Care Patient would benefit from OT for education, treatment and training to promote independence in ADL's, mobility, safety and/or upper extremity function for ADL' s. Plan of Care: ADL Retraining, Functional Mobility, Group Exercise/Act as Ind ( education, exercise, activity tolerance, functional activities, socialization), UE Funct Exercise/Act, UE Neuromus Re-Ed/Coord Treatment Duration: Oct 22, 2016 Visits Per Week: 10-11 Minutes/Day (M-F): 75-90 Minutes/Day (Sat/Rodriguez): PRN Agreement: Yes Rehab Potential: Good Time/GCodes Start Time: 13:00 Stop Time: 13:30 Total Time Billed (hr/min): 30 Billed Treatment Time visit, 15 min functional activity, 15 minutes exercise ZEINA CAMPOS OT Oct 14, 2016 16:11
[2016-10-14 17:34] VITALS: BP 156/68
[2016-10-14] MEDS: AMITRIPTYLINE 25 MG (ELAVIL) TAB PO SCH (21:16)
[2016-10-14] MEDS: meTOproloL SUCCINATE 50 MG (TOPROL XL) TAB PO SCH (21:16)
--- NOTE | 2016-10-14 21:31 | CONSULTATION REPORT ---
DATE OF SERVICE: 10/14/2016 REASON FOR CONSULTATION: Right hip pain status post fall secondary to osteoarthritis. HISTORY OF PRESENT ILLNESS: The patient is an 86-year-old female who fell last week and had a negative workup for fracture but has had persistent right hip pain and groin pain. It progressed to where she is requiring more narcotic medications. She has had known arthrosis of the hip which had been bothering her some, prior to her fall. She has had decreased mobility because of the hip pain. Radiographs were negative for fracture as well as CT scan was negative for fracture. On exam, the patient has pain with internal rotation of the right hip, mild pain with external rotation. She cannot perform a straight leg raise. She is tender over her lateral greater trochanter as well. Radiographs were as above. IMPRESSION: Right hip osteoarthritis, symptomatic. PLAN: Right hip intraarticular injection. The patient understands, risks, benefits, alternatives, options, ramifications, and recovery. Thank you for the consultation. Job ID: [id number] DocumentID: [id number] Dictated Date: 10/14/2016 15:38:43 Media Services Director Date: 10/14/2016 19:50:48 Dictated By: ROBBY SHEIKH MD
[2016-10-15 05:48] VITALS: BP 152/69
[2016-10-15] MEDS: MULTIVIT W/MINERALS TAB (THERAGRAN M) PO SCH (07:11)
[2016-10-15] MEDS ORDERED: BUPIVACAINE 0.25% 30 ML (SENSORCAINE) VIAL ONE (07:43)
[2016-10-15] MEDS ORDERED: LIDOCAINE 1% INJ 20 ML (XYLOCAINE) VIAL ONE (07:43)
[2016-10-15] MEDS ORDERED: DEXAMETHASONE PF 10 MG/ML (DECADRON) VIAL ONE (07:54)
--- NOTE | 2016-10-15 08:07 | PM & R (SOAP) Progress Note ---
Subjective Time Seen by Provider: 07:55 Subjective/Events-last exam Patient was seen in her room this AM Discussed case with RN yesterday.Dr Ratliff consulted re ongoing painful OA rt hip He will do Injection today under fluoro Objective Exam Last Set of Vital Signs Vital Signs Date Time Temp Pulse Resp B/P (MAP) Pulse Ox O2 Delivery O2 Flow Rate FiO2 10/15/16 05:48 96.9 63 20 152/69 94 Room Air Capillary Refill : I&O Intake and Output 10/15/16 00:00 Intake Total 1785 ml Balance 1785 ml Intake Oral 1785 ml # Voids 8 # Bowel Movements 2 General: Alert, Oriented X3, Cooperative, No Acute Distress HEENT: PERRLA, EOMI, Mucous Memb Moist/[place], Other (ecchymosis rt periorbital area) Neck: Supple, No JVD Lungs: Clear to Auscultation Heart: Regular Rate Abdomen: Normal Bowel Sounds, Soft, No Tenderness Extremities: No Edema Skin: Other (bruising as per above) Neuro: Other (guarding rt hip with tenderness) Assessment/Plan Assessment S/P fall with rt hip contusion with underlying DJD Chronic low back pain HTN controlled Pain management Severe OA rt Hip Constipation Plan Continue PT/OT Adjust meds as needed Trial of Voltaran gel-done Team Conference held - 10/13/16 See report for full functional update and POC and ELOS Rechecked Xray rt hip Dr Ratliff to do RT HIP injection under Fluoro today Appreciate his assistance Discharge set tentatively for 10/21/16 Adjust bowel program as needed SHANTANU MURRAY MD Oct 15, 2016 08:07
[2016-10-15] MEDS: DICLOFENAC 1% GEL 100 GM (VOLTAREN) TUBE TOP SCH ×4 (08:48→21:05)
[2016-10-15] MEDS: DOCUSATE SODIUM 100 MG (COLACE) CAP PO SCH (08:58)
--- NOTE | 2016-10-15 09:01 | Physical Therapy Daily Note ---
PT Daily Note-Current Subjective Agreeable to PT. Getting an injection in her right hip today. Pain Numeric Pain Scale: 7 Location: Right Location Body Site: Hip Pain Description: Ache Mental Status Patient Orientation: Person, Place, Time, Situation Transfers Functional [place] Measure 0=Not Assessed/NA 4=Minimal Assistance 1=Total Assistance 5=Supervision or Setup 2=Maximal Assistance 6=Modified [place] 3=Moderate Assistance 7=Complete IndependenceIRFPAI Quality Coding Scale 6 Independent with activity with or without an assistive device 5 Patient requires set up or clean up by helper. Patient completes activity by themselves 4 Supervision or touching assist (CGA). [place] provide cues , steadying assist 3 The helper provides less than half the effort to complete the activity 2 The helper provides more than half the effort to complete the activity 1 Dependent. The helper does all the effort to complete an activity 7 Patient refused to complete or attempt activity 9 The patient did not perform the activity before the current illness or injury 88 Not attempted due to Medical conditions or safety concerns Transfers (B, C, W/C) (FIM): 4 Sit to/from Stand: 4 (CGA; slow with transfer and requires more than 1 attempt) Weight Bearing Weight Bearing Restriction: Weight Bearing/Tolerated Gait Training Does the Patient Walk?: Yes Gait (FIM): 4 Distance: 150 ft x 2; 50 ft x 2 Gait Assistive Device: FWW very slow and antalgic due to right hip pain. Step to gait noted. Exercises NuStep Minutes: 10 (LE strength and hip ROM/pain relief on the right; limited change post treatmeht) Treatments Also toileted with SBA for all. Assessment Limited today by right hip pain; injection pending. Slow with gait and antalgic , did not try to correct pattern as it is simply pain related at this time. PT [facility] Goals Nuclear Power Plant Engineer Goals PT Nuclear Power Plant Engineer Goals Time Frame: Oct 29, 2016 Transfers (B,C,W/C) (FIM): 6 Sit to Lying (QC): 6 Lying-Sitting on Side/Bed(QC): 6 Sit to Stand (QC): 6 Rollin Roll Left to Right (QC): 6 Chair/Fld-gc-Ppymq Xfer(QC): 6 Car Transfer (QC): 6 Does the Patient Walk: Yes Gait (FIM): 6 Gait distance (FIM): 3=150 ft Distance: 250' Walk 10 feet (QC): 5 Walk 10ft-Uneven Surface(QC): 5 Walk 50ft with 2 Turns (QC): 5 Walk 150 ft (QC): 5 Gait Level of Assist: 6 Gait Assistive Device: FWW Does the Pt use WC or Scooter?: No Stairs (FIM): 2 # of Steps: 4 1 Step (curb) (QC): 5 4 Steps (QC): 5 12 Steps (QC): 9 Stairs Level Of Assist: 6 Picking up an Object (QC): 5 PT Plan Problem List Problem List: Activity Tolerance, Functional Strength, Safety Treatment/Plan Treatment Plan: Continue Plan of Care Treatment Plan: Bed Mobility, Education, Functional Activity [place], Functional Strength, Group Therapy, Gait, Safety, Therapeutic Exercise, Transfers Treatment Duration: Oct 29, 2016 Visits Per Week: 11 Minutes/Day (M-F): 60-90 Minutes/Day (Sat/Rodriguez): PRN Time/GCodes Time In: 800 Time Out: 900 Total Billed Treatment Time: 60 Total Billed Treatment visit EX 10 FA 13 GT 37 SHAHNAZ SMITH PT Oct 15, 2016 09:01
[2016-10-15] MEDS ORDERED: proPOfol 200 MG/20 ML (DIPRIVAN) VIAL IV ONE (09:08)
[2016-10-15] MEDS ORDERED: LIDOCAINE PF 2% 5 ML (XYLOCAINE) VIAL ONE (09:08)
--- NOTE | 2016-10-15 09:43 | Progress Note-Pre Operative ---
Pre-Operative Progress Note H&P Reviewed The H&P was reviewed, patient examined and no changes noted. Date Seen by Provider: Oct 15, 2016 Time Seen by Provider: 09:42 Date H&P Reviewed: Oct 15, 2016 Time H&P Reviewed: 09:42 Pre-Operative Diagnosis: right hip primary osteoathritis ROBBY SHEIKH MD Oct 15, 2016 09:43
--- NOTE | 2016-10-15 09:46 | Progress Note-Post Operative ---
Post-Operative Progess Note Surgeon (s)/Sheet Rock Nailer (s) Surgeon ROBBY SHEIKH MD Sheet Rock Nailer: Edmundo Ng Pre-Operative Diagnosis right hip primary osteoathritis Post-Operative Diagnosis right hip primary osteoathritis Procedure & Operative Findings Date of Procedure 10/15/16 Procedure Performed/Findings right hip intra articular injection Anesthesia Type MAC plus local Estimated Blood Loss Estimated blood loss (mL): not applicable Specimens/Packing Specimens Removed none Packing: none ROBBY SHEIKH MD Oct 15, 2016 09:46
[2016-10-15] MEDS ORDERED: LACTATED RINGERS 1,000 ML IV ONE (10:50)
--- NOTE | 2016-10-15 10:54 | Diagnostic Imaging Report ---
EXAMINATION: Intraoperative view of the right hip. FLUOROSCOPY TIME: 19 seconds of fluoroscopy time was provided. CONTRAST: 10 cc of Omnipaque 300 was utilized. INDICATION: Right hip pain. IMPRESSION: Dr. Ratliff performed a fluoroscopically guided hip injection. Contrast is seen within the right hip joint. Dictated by: Dictated on workstation # [id number]
[2016-10-15] MEDS ORDERED: LACTATED RINGERS 1,000 ML IV SCH (11:00)
[2016-10-15] MEDS: CYANOCOBALAMIN 500 MCG TAB (VITAMIN B-12) PO SCH (11:34)
[2016-10-15] MEDS: lisINopril 10 MG (PRINIVIL) TAB PO SCH (11:34)
[2016-10-15] MEDS: amLODIPine 5 MG (NORVASC) TAB PO SCH (11:34)
[2016-10-15] MEDS: ASPIRIN E.C. 325 MG (ECOTRIN) TABLET PO SCH (11:34)
--- NOTE | 2016-10-15 12:44 | Occupational Ther Daily Note ---
OT Current Status-Daily Note Subjective Pt seen in room, agreeable to OT. Pt scheduled for procedure on hip at 10 am. Appearance Alert, cooperative Mental Status/Objective Functional [place] Measure 0=Not Assessed/NA 4=Minimal Assistance 1=Total Assistance 5=Supervision or Setup 2=Maximal Assistance 6=Modified [place] 3=Moderate Assistance 7=Complete [place] ADL-Treatment While patient was getting ready for the day, staff came to pick her up for her procedure. She was able to toilet and brush her teeth before getting back in to bed to be taken to OR. Pt walked to and from bathroom SBA for safety, FWW and walked very slowly, with obvious pain in hip. Functional [place] Measure 0=Not Assessed/NA 4=Minimal Assistance 1=Total Assistance 5=Supervision or Setup 2=Maximal Assistance 6=Modified [place] 3=Moderate Assistance 7=Complete IndependenceIRFPAI Quality Coding Scale 6 Independent with activity with or without an assistive device 5 Patient requires set up or clean up by helper. Patient completes activity by themselves 4 Supervision or touching assist (CGA). [place] provide cues , steadying assist 3 The helper provides less than half the effort to complete the activity 2 The helper provides more than half the effort to complete the activity 1 Dependent. The helper does all the effort to complete an activity 7 Patient refused to complete or attempt activity 9 The patient did not perform the activity before the current illness or injury 88 Not attempted due to Medical conditions or safety concerns Grooming (FIM): 6 (Stood at sink to brush teeth, wash hands, comb hair, FWW. Balanced with FWW as needed. Pt did not need dario assistance to do the activities ) Toileting (FIM): 6 (Pt was able to get on/off BSC over toilet with mod I but needed to rock several times to get off toilet to manage clothing and hygiene) Toilet/Commode Transfer (FIM): 6 (Pt needed to rock several times to get off BSc over toilet. ) Education OT Patient Education: Progress toward Goal/Update tx plan Teaching Recipient: Patient OT Short Term Goals Short Term Goals Time Frame: Oct 15, 2016 Bathing(FIM): 5 Lower Body Dressing(FIM): 5 Additional Short Term Goals: 2-Verbalize Understanding, 3-ImproveStrength/Desean 1=Demonstrate adherence to instructed precautions during ADL tasks. 2=Patient will verbalize/demonstrate understanding of assistive devices/ modifications for ADL. 3=Patient will improve strength/tolerance for activity to enable patient to perform ADL's. OT Hand Spring Former Goals Hand Spring Former Goals Time Frame: Oct 22, 2016 Eating (FIM): 7 (No dentures) Eating (QC): 6 Groomin Oral Hygiene (QC): 6 Bathing(FIM): 6 Shower/Bathe Self (QC): 6 Upper Body Dressing(FIM): 6 Upper Body Dressing (QC): 6 Lower Body Dressing(FIM): 6 Lower Body Dressing (QC): 6 On/Off Footwear (QC): 6 Toileting(FIM): 6 Toileting Hygiene (QC): 6 Toilet/Commode Transfer(FIM): 6 Toilet/Commode Transfer (QC): 6 Shower Transfer(FIM): 6 Additional Goals: 2-Verbalize Understanding, 3-ImproveStrength/Desean 1=Demonstrate adherence to instructed precautions during ADL tasks. 2=Patient will verbalize/demonstrate understanding of assistive devices/ modifications for ADL. 3=Patient will improve strength/tolerance for activity to enable patient to perform ADL's. OT Education/Plan Problem List/Assessment Pt would benefit from skilled OT to increase her independence in basic self care to allow her to safely return home to live independently. Discharge Recommendations Plan/Recommendations: Continue POC Treatment Plan/Plan of Care Patient would benefit from OT for education, treatment and training to promote independence in ADL's, mobility, safety and/or upper extremity function for ADL' s. Plan of Care: ADL Retraining, Functional Mobility, Group Exercise/Act as Ind ( education, exercise, activity tolerance, functional activities, socialization), UE Funct Exercise/Act, UE Neuromus Re-Ed/Coord Treatment Duration: Oct 22, 2016 Visits Per Week: 10-11 Minutes/Day (M-F): 75-90 Minutes/Day (Sat/Rodriguez): PRN Agreement: Yes Rehab Potential: Good Time/GCodes Start Time: 09:00 Stop Time: 09:15 Total Time Billed (hr/min): 15 Billed Treatment Time visit, 15 min ADL ZEINA CAMPOS OT Oct 15, 2016 12:44
[2016-10-15] MEDS: HYDROcodone/APAP 5 MG/325 MG (LORTAB) TAB PO PRN ×2 (14:06→21:06)
--- NOTE | 2016-10-15 15:05 | Therapy Group Daily Note ---
Therapy Daily Group Note Patient Education Topic Home Safety, Fall Prevention Exercises LE Seated Exercise, UE Exercise Other/Notes Pt was an active participant in OT/PT group. She walked to the gym with SBA for safety, FWW, moving very carefully after procedure this morning. She contributed to education/discussion on home safety and fall prevention and, at end of group, was able to identify a change she will make at home to be safer. She also did seated UE and LE exercises. Care transferred to OT for continued therapy after group. Start Time: 13:00 Stop Time: 14:00 Total Billed Treatment Time: 60 Total Billed Treatment visit, 60 minutes group ZEINA CAMPOS OT Oct 15, 2016 15:05
--- NOTE | 2016-10-15 15:32 | Occupational Ther Daily Note ---
OT Current Status-Daily Note Subjective Pt seen by OT after group. Pain rated 9/10 initially but, after pain meds and walking, she said that, although her hip still hurt, she felt like she was walking better. Appearance Alert, cooperative Mental Status/Objective Functional [place] Measure 0=Not Assessed/NA 4=Minimal Assistance 1=Total Assistance 5=Supervision or Setup 2=Maximal Assistance 6=Modified [place] 3=Moderate Assistance 7=Complete [place] ADL-Treatment After exercise, pt walked back to room and toileted before getting into recliner. Although she is able to get on and off the toilet with mod I (rocking several times), she is not safe to walk to and from the bathroom by herself. Pt ended tx up in recliner, all needs met. Functional [place] Measure 0=Not Assessed/NA 4=Minimal Assistance 1=Total Assistance 5=Supervision or Setup 2=Maximal Assistance 6=Modified [place] 3=Moderate Assistance 7=Complete IndependenceIRFPAI Quality Coding Scale 6 Independent with activity with or without an assistive device 5 Patient requires set up or clean up by helper. Patient completes activity by themselves 4 Supervision or touching assist (CGA). [place] provide cues , steadying assist 3 The helper provides less than half the effort to complete the activity 2 The helper provides more than half the effort to complete the activity 1 Dependent. The helper does all the effort to complete an activity 7 Patient refused to complete or attempt activity 9 The patient did not perform the activity before the current illness or injury 88 Not attempted due to Medical conditions or safety concerns Grooming (FIM): 6 (At sink to wash and dry hands after toileting, FWW) Toileting (FIM): 6 (BSC over toilet, FWW) Toilet/Commode Transfer (FIM): 6 (BSC over toilet, FWW) Other Treatment Pt walked to gym from counts include [facility] with close SBA for safety, FWW. In the gym, she did 13 minutes of bilat UE exercise on arm bike set at 15 delgado resistance. She also did AROM and stretches with exercise bar, doing 10 reps at shoulders and 15 reps at elbows and wrists. Exercises are to strengthen arms to help with getting up and down for transfers and ADLs. Pt walked back to room with SBA, FWW but was observed to take bigger steps with her R hip (she reported she felt like she was walking better, too). Education OT Patient Education: Progress toward Goal/Update tx plan, Use of adapted equipment Teaching Recipient: Patient Teaching Methods: Discussion Response to Teaching: Verbalize Understanding OT Short Term Goals Short Term Goals Time Frame: Oct 15, 2016 Bathing(FIM): 5 Lower Body Dressing(FIM): 5 Additional Short Term Goals: 2-Verbalize Understanding, 3-ImproveStrength/Desean 1=Demonstrate adherence to instructed precautions during ADL tasks. 2=Patient will verbalize/demonstrate understanding of assistive devices/ modifications for ADL. 3=Patient will improve strength/tolerance for activity to enable patient to perform ADL's. OT Woodwind Instrument Repairer Goals Woodwind Instrument Repairer Goals Time Frame: Oct 22, 2016 Eating (FIM): 7 (No dentures) Eating (QC): 6 Groomin Oral Hygiene (QC): 6 Bathing(FIM): 6 Shower/Bathe Self (QC): 6 Upper Body Dressing(FIM): 6 Upper Body Dressing (QC): 6 Lower Body Dressing(FIM): 6 Lower Body Dressing (QC): 6 On/Off Footwear (QC): 6 Toileting(FIM): 6 Toileting Hygiene (QC): 6 Toilet/Commode Transfer(FIM): 6 Toilet/Commode Transfer (QC): 6 Shower Transfer(FIM): 6 Additional Goals: 2-Verbalize Understanding, 3-ImproveStrength/Desean 1=Demonstrate adherence to instructed precautions during ADL tasks. 2=Patient will verbalize/demonstrate understanding of assistive devices/ modifications for ADL. 3=Patient will improve strength/tolerance for activity to enable patient to perform ADL's. OT Education/Plan Problem List/Assessment Pt would benefit from skilled OT to increase her independence in basic self care to allow her to safely return home to live independently. Discharge Recommendations Plan/Recommendations: Continue POC Treatment Plan/Plan of Care Patient would benefit from OT for education, treatment and training to promote independence in ADL's, mobility, safety and/or upper extremity function for ADL' s. Plan of Care: ADL Retraining, Functional Mobility, Group Exercise/Act as Ind ( education, exercise, activity tolerance, functional activities, socialization), UE Funct Exercise/Act, UE Neuromus Re-Ed/Coord Treatment Duration: Oct 22, 2016 Visits Per Week: 10-11 Minutes/Day (M-F): 75-90 Minutes/Day (Sat/Rodriguez): PRN Agreement: Yes Rehab Potential: Good Time/GCodes Start Time: 14:00 Stop Time: 14:45 Total Time Billed (hr/min): 45 Billed Treatment Time visit, 30 minutes exercise, 15 minutes ADL ZEINA CAMPOS OT Oct 15, 2016 15:32
[2016-10-15 16:09] VITALS: BP 148/70
[2016-10-15 17:55] VITALS: BP 130/68
[2016-10-15] MEDS: meTOproloL SUCCINATE 50 MG (TOPROL XL) TAB PO SCH (21:04)
[2016-10-15] MEDS: AMITRIPTYLINE 25 MG (ELAVIL) TAB PO SCH (21:04)
[2016-10-15] MEDS: POLYETHYLENE GLYCOL 17 GM (MIRALAX) PACK PO PRN (21:04)
--- NOTE | 2016-10-15 23:54 | OPERATIVE REPORT ---
DATE OF SERVICE: PREOPERATIVE DIAGNOSIS: Right hip primary osteoarthritis. POSTOPERATIVE DIAGNOSIS: Right hip primary osteoarthritis. PROCEDURE: Right hip intra-articular injection. SURGEON: Robby Sheikh M.D. WOODS RIDER: JOSE DE JESUS Crespo, who assisted throughout the procedure. ANESTHESIA: Monitored anesthesia care by Brandon Smith CRNA. ESTIMATED BLOOD LOSS: Not applicable. DRAINS: None. COMPLICATIONS: None. POSTOPERATIVE PLAN: Activities as symptoms allow. The patient was transported to the recovery room awake and in stable condition. STATEMENT OF ORAL CONSENT: The patient is an 86-year-old female who fell a week ago injuring her right hip. Since that point, she has had hip pain which has progressed. A CT scan as well as 2 sets of radiographs revealed no evidence of fracture. She did have antecedent pain and has had groin pain since the time of her fall but had it prior to her fall as well. The patient was counseled as to treatment options and she elected to proceed with an intra-articular injection to try to provide some symptomatic relief. PROCEDURE: After risks and benefits of procedure were discussed and questions were answered, an informed consent was signed and placed on the chart. The operative site was confirmed in the preoperative holding area initialed by the surgeon. The patient was then transported to the operating room and after adequate levels of monitored anesthesia care were obtained, the right hip was prepped and draped in usual sterile fashion. The lateral aspect of the hip was infiltrated with combination of plain lidocaine and plain Marcaine. Under fluoroscopic guidance, a spinal needle was passed, intra-articularly. This was confirmed intra-articular with an arthrogram. The hip was then injected with 2 mL of Decadron and 2 mL of Marcaine. The hip was taken through range of motion after removing the needle with no evidence of fracture noted on her lifetime fluoroscopy. The patient was transported to recovery room awake and in stable condition. Job ID: [id number] DocumentID: [id number] Dictated Date: 10/15/2016 10:30:17 [place]ap[place]er Date: 10/15/2016 22:31:52 Dictated By: ROBBY SHEIKH MD
[2016-10-16 06:07] VITALS: BP 135/66
[2016-10-16] MEDS: MULTIVIT W/MINERALS TAB (THERAGRAN M) PO SCH (06:11)
[2016-10-16] MEDS: amLODIPine 5 MG (NORVASC) TAB PO SCH (08:18)
[2016-10-16] MEDS: lisINopril 10 MG (PRINIVIL) TAB PO SCH (08:18)
[2016-10-16] MEDS: DOCUSATE SODIUM 100 MG (COLACE) CAP PO SCH (08:18)
[2016-10-16] MEDS: HYDROcodone/APAP 5 MG/325 MG (LORTAB) TAB PO PRN ×2 (08:19→18:48)
[2016-10-16] MEDS: DICLOFENAC 1% GEL 100 GM (VOLTAREN) TUBE TOP SCH ×4 (08:19→22:03)
[2016-10-16] MEDS: ASPIRIN E.C. 325 MG (ECOTRIN) TABLET PO SCH (08:19)
--- NOTE | 2016-10-16 08:57 | Progress Note-Standard ---
Standard Progress Note Progress Notes/Assess & Plan Date Seen by Provider: Oct 16, 2016 Time Seen by Provider: 08:56 Progress/Assessment & Plan please see consult plan for right hip injection tomorrow with C arm assistance in OR Final Diagnosis Patient reports her hip is feeling much better today. Able to ambulate with less pain activities ad ju will see as outpt ROBBY MCDONALD MD Oct 16, 2016 08:57
--- NOTE | 2016-10-16 12:10 | Physical Therapy Daily Note ---
PT Daily Note-Current Subjective Pt states her hip is doing "much better". Pt rates pain 3-4/10 currently. Pt agreeable to PT. Pt requests BR privileges. Transfers Functional [place] Measure 0=Not Assessed/NA 4=Minimal Assistance 1=Total Assistance 5=Supervision or Setup 2=Maximal Assistance 6=Modified [place] 3=Moderate Assistance 7=Complete IndependenceIRFPAI Quality Coding Scale 6 Independent with activity with or without an assistive device 5 Patient requires set up or clean up by helper. Patient completes activity by themselves 4 Supervision or touching assist (CGA). [place] provide cues , steadying assist 3 The helper provides less than half the effort to complete the activity 2 The helper provides more than half the effort to complete the activity 1 Dependent. The helper does all the effort to complete an activity 7 Patient refused to complete or attempt activity 9 The patient did not perform the activity before the current illness or injury 88 Not attempted due to Medical conditions or safety concerns Pt transfers mod (I) from raised recliner and raised toilet. Gait Training Gait Assistive Device: FWW Pt amb with FWW and CGA x 250ft at slow steady speed. Treatments BR use at SBA only. Assessment Current Status: Good Progress Pt tolerated gait training well. Hip pain decreased since receiving her injection. Pt talkative and in good spirits. Pt back to her bedside recliner with legs elevated and call light in reach. All needs met. PT Detention Goals Youth Liaison Officer Goals PT Youth Liaison Officer Goals Time Frame: Oct 29, 2016 Transfers (B,C,W/C) (FIM): 6 Sit to Lying (QC): 6 Lying-Sitting on Side/Bed(QC): 6 Sit to Stand (QC): 6 Rollin Roll Left to Right (QC): 6 Chair/Nru-ls-Tufod Xfer(QC): 6 Car Transfer (QC): 6 Does the Patient Walk: Yes Gait (FIM): 6 Gait distance (FIM): 3=150 ft Distance: 250' Walk 10 feet (QC): 5 Walk 10ft-Uneven Surface(QC): 5 Walk 50ft with 2 Turns (QC): 5 Walk 150 ft (QC): 5 Gait Level of Assist: 6 Gait Assistive Device: FWW Does the Pt use WC or Scooter?: No Stairs (FIM): 2 # of Steps: 4 1 Step (curb) (QC): 5 4 Steps (QC): 5 12 Steps (QC): 9 Stairs Level Of Assist: 6 Picking up an Object (QC): 5 PT Plan Treatment/Plan Treatment Plan: Continue Plan of Care Treatment Plan: Bed Mobility, Education, Functional Activity [place], Functional Strength, Group Therapy, Gait, Safety, Therapeutic Exercise, Transfers Treatment Duration: Oct 29, 2016 Visits Per Week: 11 Minutes/Day (M-F): 60-90 Minutes/Day (Sat/Rodriguez): PRN Time/GCodes Time In: 915 Time Out: 955 Total Billed Treatment Time: 40 Total Billed Treatment 1, gait x 30min, FA x 10 min AMINATA GUZMAN CPTA Oct 16, 2016 12:10
[2016-10-16 16:24] VITALS: BP 114/68
[2016-10-16] MEDS: AMITRIPTYLINE 25 MG (ELAVIL) TAB PO SCH (21:32)
[2016-10-16] MEDS: meTOproloL SUCCINATE 50 MG (TOPROL XL) TAB PO SCH (21:32)
[2016-10-17] MEDS: HYDROcodone/APAP 5 MG/325 MG (LORTAB) TAB PO PRN ×3 (03:47→22:49)
[2016-10-17 05:58] VITALS: BP 158/72
[2016-10-17] MEDS: MULTIVIT W/MINERALS TAB (THERAGRAN M) PO SCH (06:22)
[2016-10-17] MEDS: amLODIPine 5 MG (NORVASC) TAB PO SCH (08:09)
[2016-10-17] MEDS: DOCUSATE SODIUM 100 MG (COLACE) CAP PO SCH (08:09)
[2016-10-17] MEDS: ASPIRIN E.C. 325 MG (ECOTRIN) TABLET PO SCH (08:09)
[2016-10-17] MEDS: lisINopril 10 MG (PRINIVIL) TAB PO SCH (08:09)
[2016-10-17] MEDS: DICLOFENAC 1% GEL 100 GM (VOLTAREN) TUBE TOP SCH ×4 (08:11→20:37)
[2016-10-17 18:41] VITALS: BP 136/67
[2016-10-17] MEDS: meTOproloL SUCCINATE 50 MG (TOPROL XL) TAB PO SCH (20:36)
[2016-10-17] MEDS: AMITRIPTYLINE 25 MG (ELAVIL) TAB PO SCH (20:36)
[2016-10-17] MEDS: POLYETHYLENE GLYCOL 17 GM (MIRALAX) PACK PO PRN (20:40)
[2016-10-18 04:40] VITALS: BP 147/58
[2016-10-18] MEDS: MULTIVIT W/MINERALS TAB (THERAGRAN M) PO SCH (06:10)
[2016-10-18] MEDS: lisINopril 10 MG (PRINIVIL) TAB PO SCH (09:06)
[2016-10-18] MEDS: amLODIPine 5 MG (NORVASC) TAB PO SCH (09:06)
[2016-10-18] MEDS: DOCUSATE SODIUM 100 MG (COLACE) CAP PO SCH (09:06)
[2016-10-18] MEDS: HYDROcodone/APAP 5 MG/325 MG (LORTAB) TAB PO PRN ×2 (09:06→21:27)
[2016-10-18] MEDS: ASPIRIN E.C. 325 MG (ECOTRIN) TABLET PO SCH (09:06)
[2016-10-18] MEDS: IBUPROFEN TABLET 200 MG TAB PO PRN (09:06)
[2016-10-18] MEDS: CYANOCOBALAMIN 500 MCG TAB (VITAMIN B-12) PO SCH (09:06)
[2016-10-18] MEDS: DICLOFENAC 1% GEL 100 GM (VOLTAREN) TUBE TOP SCH ×4 (09:07→21:27)
--- NOTE | 2016-10-18 09:22 | Physical Therapy Daily Note ---
PT Daily Note-Current Subjective Agreeable to PT. Reports she is still having right hip/groin pain. Has not had as much relief as she had hoped to get after the injection. Pain Location: Right Location Body Site: Hip (groin) Pain Description: Ache Comment: 11/01 with walking; /10 on the Nu step Mental Status Patient Orientation: Person, Place, Time, Situation Transfers Functional [place] Measure 0=Not Assessed/NA 4=Minimal Assistance 1=Total Assistance 5=Supervision or Setup 2=Maximal Assistance 6=Modified [place] 3=Moderate Assistance 7=Complete IndependenceIRFPAI Quality Coding Scale 6 Independent with activity with or without an assistive device 5 Patient requires set up or clean up by helper. Patient completes activity by themselves 4 Supervision or touching assist (CGA). [place] provide cues , steadying assist 3 The helper provides less than half the effort to complete the activity 2 The helper provides more than half the effort to complete the activity 1 Dependent. The helper does all the effort to complete an activity 7 Patient refused to complete or attempt activity 9 The patient did not perform the activity before the current illness or injury 88 Not attempted due to Medical conditions or safety concerns Transfers (B, C, W/C) (FIM): 5 Sit to/from Stand: 5 Sit to from stand 2 x 5 with focus on hand placement and smooth transition; as well as LE / glut strengthening to improve functional transfers. Gait Training Does the Patient Walk?: Yes Gait (FIM): 5 Distance: 150 ft x 2 and 50 ft x 1 Gait Assistive Device: FWW slow gait and antalgic due to right hip pain. Several standing rest breaks. Exercises NuStep Minutes: 15 (to increase functional strength for safety with gait and transfers. ) NuStep Workload: 3 Treatments Also implemented NU Step to help ease hip pain, which it did decrease her pain somewhat. Assessment Current Status: Good Progress Continues to have right hip pain that I feel limits her ability to progress. PT Chcf Goals Structural Architect Goals PT Chcf Goals Time Frame: Oct 29, 2016 Transfers (B,C,W/C) (FIM): 6 Sit to Lying (QC): 6 Lying-Sitting on Side/Bed(QC): 6 Sit to Stand (QC): 6 Rollin Roll Left to Right (QC): 6 Chair/Aos-mp-Udjvk Xfer(QC): 6 Car Transfer (QC): 6 Does the Patient Walk: Yes Gait (FIM): 6 Gait distance (FIM): 3=150 ft Distance: 250' Walk 10 feet (QC): 5 Walk 10ft-Uneven Surface(QC): 5 Walk 50ft with 2 Turns (QC): 5 Walk 150 ft (QC): 5 Gait Level of Assist: 6 Gait Assistive Device: FWW Does the Pt use WC or Scooter?: No Stairs (FIM): 2 # of Steps: 4 1 Step (curb) (QC): 5 4 Steps (QC): 5 12 Steps (QC): 9 Stairs Level Of Assist: 6 Picking up an Object (QC): 5 PT Plan Problem List Problem List: Activity Tolerance, Functional Strength, Safety, Balance, Gait, Transfer, Bed Mobility Treatment/Plan Treatment Plan: Continue Plan of Care Treatment Plan: Bed Mobility, Education, Functional Activity [place], Functional Strength, Group Therapy, Gait, Safety, Therapeutic Exercise, Transfers Treatment Duration: Oct 29, 2016 Visits Per Week: 11 Minutes/Day (M-F): 60-90 Minutes/Day (Sat/Rodriguez): PRN Safety Risks/Education Patient Education: Transfer Techniques, Safety Issues Teaching Recipient: Patient Teaching Methods: Demonstration, Discussion Response to Teaching: Reinforcement Needed Time/GCodes Time In: 800 Time Out: 900 Total Billed Treatment Time: 60 Total Billed Treatment visit GT 30 EX 15 FA 15 SHAHNAZ SMITH PT Oct 18, 2016 09:22
--- NOTE | 2016-10-18 10:34 | Progress Note-Hospitalist ---
MELISSA GREENBERG MEDICAL STUDENT 10/18/16 1034: Progress Note HPI/CC on Admission CC: Medical management along with rehab following fall and severe right hip pain unable to ambulate HPI: This is an 86-year-old white female clinic patient of Dr. Dobbins's [place] presents following a fall with no fracture noted on the right where she was having pain on x-ray or CT scan but osteoarthritis appearing severe in the joint causing the patient to be unable to ambulate and she lives at home so she was stabilized on the acute medical floor and transferred to acute rehabilitation to [facility] prior to going home. Currently her bowels are moving she is requesting a DO NOT RESUSCITATE which order was placed and overall very appreciative of the fact that inpatient rehabilitation is available here to help her because she could not go home in the states she was in yesterday. Progress Notes/Assess & Plan Date Seen 10/18/16 Time Seen by Provider: 09:45 Admission Dx/Process Today patient is in pain despite receiving a hip injection this morning. Claims it has not helped at all. Patient rated pain severity a 6 on a 1-10 scale. Patient is eating well and is having regular bowel movements. Claims to have no issues with urination. Patient is having significant difficulty with walking and ambulating. Causes severe pain. Patient claims to be taking Motrin and other pain medications COLLEEN OVIEDO DO 10/18/16 1058: Progress Note Progress Notes/Assess & Plan Time Seen by Provider: 10:30 Admission Dx/Process Patient doing well overall but hip pain continues even after injection attempted Bowels are moving okay No fever, vital signs stable, pleasant Clear to auscultation bilaterally No edema Continue inpatient rehabilitation MELISSA GREENBERG MEDICAL STUDENT Oct 18, 2016 10:34 COLLEEN OVIEDO DO Oct 18, 2016 10:58
--- NOTE | 2016-10-18 12:19 | Occupational Ther Daily Note ---
OT Current Status-Daily Note Subjective Pt seen in room, up in bathroom, agreeable to OT. Pt reported pain 6/10 and requested pain meds from nursing. She didn't think the procedure has helped much so far. Appearance Alert, cooperative Mental Status/Objective Functional [place] Measure 0=Not Assessed/NA 4=Minimal Assistance 1=Total Assistance 5=Supervision or Setup 2=Maximal Assistance 6=Modified [place] 3=Moderate Assistance 7=Complete [place] ADL-Treatment Although pt is more independent, she still takes longer than usual to complete ADLs. She also is unable to safely walk to and from bathroom on her own. Pt left sitting up at EOB, all needs met. Functional [place] Measure 0=Not Assessed/NA 4=Minimal Assistance 1=Total Assistance 5=Supervision or Setup 2=Maximal Assistance 6=Modified [place] 3=Moderate Assistance 7=Complete IndependenceIRFPAI Quality Coding Scale 6 Independent with activity with or without an assistive device 5 Patient requires set up or clean up by helper. Patient completes activity by themselves 4 Supervision or touching assist (CGA). [place] provide cues , steadying assist 3 The helper provides less than half the effort to complete the activity 2 The helper provides more than half the effort to complete the activity 1 Dependent. The helper does all the effort to complete an activity 7 Patient refused to complete or attempt activity 9 The patient did not perform the activity before the current illness or injury 88 Not attempted due to Medical conditions or safety concerns Grooming (FIM): 6 (Pt was able to brush her teeth without help, standing at the sink with FWW for balance. Washed face and hands in shower. ) Bathing (FIM): 6 (Able to wash and dry all parts except back, shower bench, grab bars, hand held shower. Turned water on and off herself and retrieved towel ) Upper Body (FIM): 5 (Doffed and donned clothing with setup. Manages buttons) Lower Body Dressing (FIM): 5 (Doffed and donned clothing with dressing stick and sock aid. Also has elastic shoe laces in shoes. Pt educ technique for pulling toes of socks a little loose, using dressing stick) Toileting (FIM): 6 (Manages clothing and hygiene. BSC over toilet, FWW, grab bar) Transfers (B, C, W/C) (FIM): 5 (Rocks several times to push up. FWW) Toilet/Commode Transfer (FIM): 6 (BSC over toilet, FWW) Shower Transfer(FIM): 5 (Close SBA. Pt has difficulty stepping into shower and weight bearing through arms and R leg with transfer because it uses both walker and grab bars. Shower bench) Education OT Patient Education: Progress toward Goal/Update tx plan, Purpose of tx/ functional activities, Use of adapted equipment Teaching Recipient: Patient Teaching Methods: Demonstration, Discussion Response to Teaching: Return Demonstration OT Short Term Goals Short Term Goals Time Frame: Oct 15, 2016 Bathing(FIM): 5 Lower Body Dressing(FIM): 5 Additional Short Term Goals: 2-Verbalize Understanding, 3-ImproveStrength/[place] 1=Demonstrate adherence to instructed precautions during ADL tasks. 2=Patient will verbalize/demonstrate understanding of assistive devices/ modifications for ADL. 3=Patient will improve strength/tolerance for activity to enable patient to perform ADL's. OT Chart Picker Goals Halfway Goals Time Frame: Oct 22, 2016 Eating (FIM): 7 (No dentures) Eating (QC): 6 Groomin Oral Hygiene (QC): 6 Bathing(FIM): 6 Shower/Bathe Self (QC): 6 Upper Body Dressing(FIM): 6 Upper Body Dressing (QC): 6 Lower Body Dressing(FIM): 6 Lower Body Dressing (QC): 6 On/Off Footwear (QC): 6 Toileting(FIM): 6 Toileting Hygiene (QC): 6 Toilet/Commode Transfer(FIM): 6 Toilet/Commode Transfer (QC): 6 Shower Transfer(FIM): 6 Additional Goals: 2-Verbalize Understanding, 3-ImproveStrength/[place] 1=Demonstrate adherence to instructed precautions during ADL tasks. 2=Patient will verbalize/demonstrate understanding of assistive devices/ modifications for ADL. 3=Patient will improve strength/tolerance for activity to enable patient to perform ADL's. OT Education/Plan Problem List/Assessment Pt would benefit from skilled OT to increase her independence in basic self care to allow her to safely return home to live independently. Discharge Recommendations Plan/Recommendations: Continue POC Treatment Plan/Plan of Care Patient would benefit from OT for education, treatment and training to promote independence in ADL's, mobility, safety and/or upper extremity function for ADL' s. Plan of Care: ADL Retraining, Functional Mobility, Group Exercise/Act as Ind ( education, exercise, activity tolerance, functional activities, socialization), UE Funct Exercise/Act, UE Neuromus Re-Ed/Coord Treatment Duration: Oct 22, 2016 Visits Per Week: 10-11 Minutes/Day (M-F): 75-90 Minutes/Day (Sat/Rodriguez): PRN Agreement: Yes Rehab Potential: Good Time/GCodes Start Time: 09:00 Stop Time: 10:00 Total Time Billed (hr/min): 60 Billed Treatment Time visit, 60 min ADL ZEINA CAMPOS OT Oct 18, 2016 12:19
--- NOTE | 2016-10-18 15:09 | Therapy Group Daily Note ---
Therapy Daily Group Note Patient Education Topic Home Safety Exercises LE Seated Exercise, UE Exercise Other/Notes Pt ambulated to OT/PT group with SBA using FWW. OT/PT group consisted of introductions (name, place living, first $ earned), socialization, UE/LE seated exercises, home safety, adaptive equipment, and problem solving photos of unsafe situations around the home. Pt was able to introduce self appropriately. Pt contributed to each discussion and verbalized understanding of home safety and the use of adaptive equipment. Pt was able to participate fulling in UE/LE seated exercises. Pt ambulated with FWW back to room. After group, pt requested to use the bathroom. Pt transferred onto toilet with SBA. Pt instructed to use pull cord to call for assistance when finished. Nrsg in room at this time. Start Time: 13:00 Stop Time: 14:15 Total Billed Treatment Time: 75 Total Billed Treatment 1-GRP SHAHNAZ MAR Oct 18, 2016 15:09
[2016-10-18 17:58] VITALS: BP 146/72
--- NOTE | 2016-10-18 21:23 | PM & R (SOAP) Progress Note ---
Subjective Time Seen by Provider: 19:30 Subjective/Events-last exam Patient was seen in her room this evening Sitting up in chair in NAD,Patient dosnt feel injection helped her hip pain that much but Patient SBA for transfers Review of Systems Musculoskeletal: leg pain Objective Exam Last Set of Vital Signs Vital Signs Date Time Temp Pulse Resp B/P (MAP) Pulse Ox O2 Delivery O2 Flow Rate FiO2 10/18/16 17:58 97.7 69 18 146/72 96 Room Air Capillary Refill : I&O Intake and Output 10/18/16 00:00 Intake Total 1110 ml Balance 1110 ml Intake Oral 1110 ml # Voids 8 # Bowel Movements 2 General: Alert, Oriented X3, Cooperative, No Acute Distress HEENT: PERRLA, EOMI, Mucous Memb Moist/[place], Other (ecchymosis rt periorbital area) Neck: Supple, No JVD Lungs: Clear to Auscultation Heart: Regular Rate Abdomen: Normal Bowel Sounds, Soft, No Tenderness Extremities: No Edema Skin: Other (bruising as per above) Neuro: Other (guarding rt hip with tenderness) Assessment/Plan Assessment S/P fall with rt hip contusion with underlying DJD Chronic low back pain HTN controlled Pain management Severe OA rt Hip Constipation Plan Continue PT/OT Adjust meds as needed Trial of Voltaran gel-done Team Conference held - 10/13/16 See report for full functional update and POC and ELOS Rechecked Xray rt hip Dr Ratliff has done RT HIP injection under Fluoro 10-15-16 Appreciate his assistance Discharge set tentatively for 10/21/16 Adjust bowel program as needed Pain management SHANTANU MURRAY MD Oct 18, 2016 21:23
[2016-10-18] MEDS: AMITRIPTYLINE 25 MG (ELAVIL) TAB PO SCH (21:26)
[2016-10-18] MEDS: meTOproloL SUCCINATE 50 MG (TOPROL XL) TAB PO SCH (21:26)
[2016-10-19 06:00] VITALS: BP 147/68
[2016-10-19] MEDS: MULTIVIT W/MINERALS TAB (THERAGRAN M) PO SCH (06:14)
[2016-10-19] MEDS: IBUPROFEN TABLET 200 MG TAB PO PRN ×2 (06:15→20:25)
[2016-10-19] MEDS: HYDROcodone/APAP 5 MG/325 MG (LORTAB) TAB PO PRN ×3 (08:10→17:35)
[2016-10-19] MEDS: ASPIRIN E.C. 325 MG (ECOTRIN) TABLET PO SCH (08:55)
[2016-10-19] MEDS: amLODIPine 5 MG (NORVASC) TAB PO SCH (08:55)
[2016-10-19] MEDS: lisINopril 10 MG (PRINIVIL) TAB PO SCH (08:55)
[2016-10-19] MEDS: DOCUSATE SODIUM 100 MG (COLACE) CAP PO SCH (08:55)
[2016-10-19] MEDS: DICLOFENAC 1% GEL 100 GM (VOLTAREN) TUBE TOP SCH ×4 (08:55→20:40)
--- NOTE | 2016-10-19 09:05 | Physical Therapy Daily Note ---
PT Daily Note-Current Subjective Agreeable to PT. Agrees that she feels she can be up ad ju in her room. Still discussing possibility of discharging on . Pain Numeric Pain Scale: 6 (rated a 5 post treatment) Location: Right Location Body Site: Hip (groin) Pain Description: Ache Comment: Took pain meds at start of treatment and her pain decreased to a 5 post Transfers Functional [place] Measure 0=Not Assessed/NA 4=Minimal Assistance 1=Total Assistance 5=Supervision or Setup 2=Maximal Assistance 6=Modified [place] 3=Moderate Assistance 7=Complete IndependenceIRFPAI Quality Coding Scale 6 Independent with activity with or without an assistive device 5 Patient requires set up or clean up by helper. Patient completes activity by themselves 4 Supervision or touching assist (CGA). [place] provide cues , steadying assist 3 The helper provides less than half the effort to complete the activity 2 The helper provides more than half the effort to complete the activity 1 Dependent. The helper does all the effort to complete an activity 7 Patient refused to complete or attempt activity 9 The patient did not perform the activity before the current illness or injury 88 Not attempted due to Medical conditions or safety concerns Transfers (B, C, W/C) (FIM): 6 Sit to/from Stand: 6 (Toilet transfer a 6 as well.) Weight Bearing Weight Bearing Restriction: Weight Bearing/Tolerated Gait Training Does the Patient Walk?: Yes Gait (FIM): 6 Distance (FIM): 3=150 ft Distance: 200 ft x 2; 50 ft x 2 Gait Assistive Device: FWW Decreased step length bilaterally with a decreased foot clearance, although they do clear. Improved carolyn and did not ambulate as slowly today. Safe and steady without concern for fall at this visit. Stair Training Stair Training: Handrails/: 1 handrail Stairs (FIM): 2 #of Steps: 4 Stairs: Pattern: Step to Education on sequencing and safety. Education on use of walker on steps. UP/ DOWN steps using the handrail left to go up and left to go down holding with both hands with SBA-CGA and cues for safety and sequencing. Then went up and down again using the walker and the handrail, she required skilled cues to sequence and problem solve as well as min assist to lift/lower the walker as needed 75% of the time. Pt able to complete without LOB but slowly and needed cuing. Treatments Functional gait and transfers as well as stair training. Assessment Current Status: Good Progress Pain seems better today. Feel she is safe to be up ad ju, nursing and OT agree , as does patient. Gait improved and progressing with the stairs. PT Ripper Operator Goals Skilled Nursing Goals PT Ripper Operator Goals Time Frame: Oct 29, 2016 Transfers (B,C,W/C) (FIM): 6 Sit to Lying (QC): 6 Lying-Sitting on Side/Bed(QC): 6 Sit to Stand (QC): 6 Rollin Roll Left to Right (QC): 6 Chair/Xmi-tu-Njqnd Xfer(QC): 6 Car Transfer (QC): 6 Does the Patient Walk: Yes Gait (FIM): 6 Gait distance (FIM): 3=150 ft Distance: 250' Walk 10 feet (QC): 5 Walk 10ft-Uneven Surface(QC): 5 Walk 50ft with 2 Turns (QC): 5 Walk 150 ft (QC): 5 Gait Level of Assist: 6 Gait Assistive Device: FWW Does the Pt use WC or Scooter?: No Stairs (FIM): 2 # of Steps: 4 1 Step (curb) (QC): 5 4 Steps (QC): 5 12 Steps (QC): 9 Stairs Level Of Assist: 6 Picking up an Object (QC): 5 PT Plan Problem List Problem List: Activity Tolerance, Functional Strength, Safety, Balance, Gait, Transfer Treatment/Plan Treatment Plan: Continue Plan of Care Treatment Plan: Bed Mobility, Education, Functional Activity [place], Functional Strength, Group Therapy, Gait, Safety, Therapeutic Exercise, Transfers Treatment Duration: Oct 29, 2016 Visits Per Week: 11 Minutes/Day (M-F): 60-90 Minutes/Day (Sat/Rodriguez): PRN Safety Risks/Education Patient Education: Steps Teaching Recipient: Patient Teaching Methods: Demonstration, Discussion Response to Teaching: Reinforcement Needed Discharge Recommendations Therapy D/C Recommendations: Physical Therapy Home Care Time/GCodes Time In: 755 Time Out: 855 Total Billed Treatment Time: 60 Total Billed Treatment visit GT 30 FA 30 SHAHNAZ SMITH PT Oct 19, 2016 09:05
--- NOTE | 2016-10-19 14:45 | Occupational Ther Daily Note ---
OT Current Status-Daily Note Subjective Pt seen in room, up in chair, agreeable to OT. Pain reported 5/10 and "inconvenient". Appearance Alert, cooperative Mental Status/Objective Functional [place] Measure 0=Not Assessed/NA 4=Minimal Assistance 1=Total Assistance 5=Supervision or Setup 2=Maximal Assistance 6=Modified [place] 3=Moderate Assistance 7=Complete [place] ADL-Treatment Pt has been moved to independent apartment in preparation for discharge on . Discussion with PT and nursing and pt - she will be OK to be up ad ju in her room. No LOB observed recently. Functional [place] Measure 0=Not Assessed/NA 4=Minimal Assistance 1=Total Assistance 5=Supervision or Setup 2=Maximal Assistance 6=Modified [place] 3=Moderate Assistance 7=Complete IndependenceIRFPAI Quality Coding Scale 6 Independent with activity with or without an assistive device 5 Patient requires set up or clean up by helper. Patient completes activity by themselves 4 Supervision or touching assist (CGA). [place] provide cues , steadying assist 3 The helper provides less than half the effort to complete the activity 2 The helper provides more than half the effort to complete the activity 1 Dependent. The helper does all the effort to complete an activity 7 Patient refused to complete or attempt activity 9 The patient did not perform the activity before the current illness or injury 88 Not attempted due to Medical conditions or safety concerns Grooming (FIM): 6 (Pt brushed teeth, combed hair, washed face and hands at sink. FWW for balance) Bathing (FIM): 6 (Pt was able to run water for sponge bath at sink and bathe herself, standing at sink, FWW for balance. ) Upper Body (FIM): 6 (Pt retrieved clean clothes and out dirty ones away. Undressed and dressed upper body without help but extra time) Lower Body Dressing (FIM): 6 (Pt retrieved clean clothes from closet and put dirty ones away. FWW for balance. Extra time. Dressing stick) Transfers (B, C, W/C) (FIM): 6 (Still rocks to get up from chair but is able to do so safely. FWW) All ADLs took longer than usual and pt moves very carefully, FWW. pt left up in recliner, all needs met. Education OT Patient Education: Progress toward Goal/Update tx plan, Purpose of tx/ functional activities Teaching Recipient: Patient Teaching Methods: Discussion Response to Teaching: Verbalize Understanding OT Short Term Goals Short Term Goals Time Frame: Oct 15, 2016 Bathing(FIM): 5 Lower Body Dressing(FIM): 5 Additional Short Term Goals: 2-Verbalize Understanding, 3-ImproveStrength/[place] 1=Demonstrate adherence to instructed precautions during ADL tasks. 2=Patient will verbalize/demonstrate understanding of assistive devices/ modifications for ADL. 3=Patient will improve strength/tolerance for activity to enable patient to perform ADL's. OT Shelter Goals Shelter Goals Time Frame: Oct 22, 2016 Eating (FIM): 7 (No dentures) Eating (QC): 6 Groomin Oral Hygiene (QC): 6 Bathing(FIM): 6 Shower/Bathe Self (QC): 6 Upper Body Dressing(FIM): 6 Upper Body Dressing (QC): 6 Lower Body Dressing(FIM): 6 Lower Body Dressing (QC): 6 On/Off Footwear (QC): 6 Toileting(FIM): 6 Toileting Hygiene (QC): 6 Toilet/Commode Transfer(FIM): 6 Toilet/Commode Transfer (QC): 6 Shower Transfer(FIM): 6 Additional Goals: 2-Verbalize Understanding, 3-ImproveStrength/[place]ese[place] 1=Demonstrate adherence to instructed precautions during ADL tasks. 2=Patient will verbalize/demonstrate understanding of assistive devices/ modifications for ADL. 3=Patient will improve strength/tolerance for activity to enable patient to perform ADL's. OT Education/Plan Problem List/Assessment Pt would benefit from skilled OT to increase her independence in basic self care to allow her to safely return home to live independently. Discharge Recommendations Plan/Recommendations: Continue POC Treatment Plan/Plan of Care Patient would benefit from OT for education, treatment and training to promote independence in ADL's, mobility, safety and/or upper extremity function for ADL' s. Plan of Care: ADL Retraining, Functional Mobility, Group Exercise/Act as Ind ( education, exercise, activity tolerance, functional activities, socialization), UE Funct Exercise/Act, UE Neuromus Re-Ed/Coord Treatment Duration: Oct 22, 2016 Visits Per Week: 10-11 Minutes/Day (M-F): 75-90 Minutes/Day (Sat/Rodriguez): PRN Agreement: Yes Rehab Potential: Good Time/GCodes Start Time: 09:20 Stop Time: 10:15 Total Time Billed (hr/min): 55 Billed Treatment Time visit, ADL 55 ZEINA CAMPOS OT Oct 19, 2016 14:45
--- NOTE | 2016-10-19 14:49 | Occupational Ther Daily Note ---
OT Current Status-Daily Note Subjective Pt seen in room, up in recliner, agreeable to OT. Requested pain meds from nursing. Appearance Alert, cooperative Mental Status/Objective Functional [place] Measure 0=Not Assessed/NA 4=Minimal Assistance 1=Total Assistance 5=Supervision or Setup 2=Maximal Assistance 6=Modified [place] 3=Moderate Assistance 7=Complete [place] ADL-Treatment Functional [place] Measure 0=Not Assessed/NA 4=Minimal Assistance 1=Total Assistance 5=Supervision or Setup 2=Maximal Assistance 6=Modified [place] 3=Moderate Assistance 7=Complete IndependenceIRFPAI Quality Coding Scale 6 Independent with activity with or without an assistive device 5 Patient requires set up or clean up by helper. Patient completes activity by themselves 4 Supervision or touching assist (CGA). [place] provide cues , steadying assist 3 The helper provides less than half the effort to complete the activity 2 The helper provides more than half the effort to complete the activity 1 Dependent. The helper does all the effort to complete an activity 7 Patient refused to complete or attempt activity 9 The patient did not perform the activity before the current illness or injury 88 Not attempted due to Medical conditions or safety concerns Other Treatment Pt got out of recliner without assistance and walked with FWW to gym, carefully and with no LOB (about 150 ft). In gym, got in and out of chair with arms but needed to rock to get up. pt did 14 minutes bilat UE exercise with arm bike set at 20W resistance, to increase arm strength to help with consistent, safe transfers. Pt worked at steady pace. walked back to room with FWW and no LOB. Pt reported that she toileted herself earlier and "it was wonderful". pt left up in recliner, all needs met. Education OT Patient Education: Exercise program, Purpose of tx/functional activities Teaching Recipient: Patient Teaching Methods: Discussion Response to Teaching: Verbalize Understanding OT Short Term Goals Short Term Goals Time Frame: Oct 15, 2016 Bathing(FIM): 5 Lower Body Dressing(FIM): 5 Additional Short Term Goals: 2-Verbalize Understanding, 3-ImproveStrength/[place] 1=Demonstrate adherence to instructed precautions during ADL tasks. 2=Patient will verbalize/demonstrate understanding of assistive devices/ modifications for ADL. 3=Patient will improve strength/tolerance for activity to enable patient to perform ADL's. OT Longterm Goals Longterm Goals Time Frame: Oct 22, 2016 Eating (FIM): 7 (No dentures) Eating (QC): 6 Groomin Oral Hygiene (QC): 6 Bathing(FIM): 6 Shower/Bathe Self (QC): 6 Upper Body Dressing(FIM): 6 Upper Body Dressing (QC): 6 Lower Body Dressing(FIM): 6 Lower Body Dressing (QC): 6 On/Off Footwear (QC): 6 Toileting(FIM): 6 Toileting Hygiene (QC): 6 Toilet/Commode Transfer(FIM): 6 Toilet/Commode Transfer (QC): 6 Shower Transfer(FIM): 6 Additional Goals: 2-Verbalize Understanding, 3-ImproveStrength/[place] 1=Demonstrate adherence to instructed precautions during ADL tasks. 2=Patient will verbalize/demonstrate understanding of assistive devices/ modifications for ADL. 3=Patient will improve strength/tolerance for activity to enable patient to perform ADL's. OT Education/Plan Problem List/Assessment Pt would benefit from skilled OT to increase her independence in basic self care to allow her to safely return home to live independently. Discharge Recommendations Plan/Recommendations: Continue POC Treatment Plan/Plan of Care Patient would benefit from OT for education, treatment and training to promote independence in ADL's, mobility, safety and/or upper extremity function for ADL' s. Plan of Care: ADL Retraining, Functional Mobility, Group Exercise/Act as Ind ( education, exercise, activity tolerance, functional activities, socialization), UE Funct Exercise/Act, UE Neuromus Re-Ed/Coord Treatment Duration: Oct 22, 2016 Visits Per Week: 10-11 Minutes/Day (M-F): 75-90 Minutes/Day (Sat/Rodriguez): PRN Agreement: Yes Rehab Potential: Good Time/GCodes Start Time: 12:55 Stop Time: 13:30 Total Time Billed (hr/min): 35 Billed Treatment Time visit, 35 minutes exercise ZEINA CAMPOS OT Oct 19, 2016 14:49
--- NOTE | 2016-10-19 16:05 | Physical Therapy Daily Note ---
PT Daily Note-Current Subjective Pt is sitting in recliner upon arrival. Pt reports having just saw OT a little bit ago. Pt agrees to PT. Mental Status Patient Orientation: Person, Place, Time, Situation Transfers Functional [place] Measure 0=Not Assessed/NA 4=Minimal Assistance 1=Total Assistance 5=Supervision or Setup 2=Maximal Assistance 6=Modified [place] 3=Moderate Assistance 7=Complete IndependenceIRFPAI Quality Coding Scale 6 Independent with activity with or without an assistive device 5 Patient requires set up or clean up by helper. Patient completes activity by themselves 4 Supervision or touching assist (CGA). [place] provide cues , steadying assist 3 The helper provides less than half the effort to complete the activity 2 The helper provides more than half the effort to complete the activity 1 Dependent. The helper does all the effort to complete an activity 7 Patient refused to complete or attempt activity 9 The patient did not perform the activity before the current illness or injury 88 Not attempted due to Medical conditions or safety concerns Scootin Sit to/from Stand: 5 Sit to Stand (QC): 5 Weight Bearing Weight Bearing Restriction: Full Weight Bearing Location Restriction: LE Bilateral Gait Training Does the Patient Walk?: Yes Distance (FIM): 3=150 ft Distance: 200' Walk 10 feet (QC): 5 Walk 50 ft with 2 Turns(QC): 5 Walk 150 ft (QC): 5 Gait Level of Assist: 5 Gait Persons Needed: 1 Gait Assistive Device: FWW Pt walks with a very slow carolyn and fatigues easy. Wheelchair Training Does the Pt Use a Wheelchair?: No Treatments Pt transferred from recliner to standing using FWW at [facility]. Pt ambulated to Therapy Gym using FWW at [facility]. Pt is fatigued after arriving so rest in chair. Pt reports not enough strength to complete stairs, "maybe if she hadn't just worked with OT pt could have". After resting, pt ambulates back to room to rest in bed. Pt gets to EOB and reports feeling ill, nursing notified & they take vitals. Pt is EOB with nursing present at end of tx. with all needs met. Assessment Current Status: Fair Progress Pt fatigues easy and needs rest breaks. PT Mcc Goals Mcc Goals PT Glove Wrapper Goals Time Frame: Oct 29, 2016 Transfers (B,C,W/C) (FIM): 6 Sit to Lying (QC): 6 Lying-Sitting on Side/Bed(QC): 6 Sit to Stand (QC): 6 Rollin Roll Left to Right (QC): 6 Chair/Jvt-fv-Gbshr Xfer(QC): 6 Car Transfer (QC): 6 Does the Patient Walk: Yes Gait (FIM): 6 Gait distance (FIM): 3=150 ft Distance: 250' Walk 10 feet (QC): 5 Walk 10ft-Uneven Surface(QC): 5 Walk 50ft with 2 Turns (QC): 5 Walk 150 ft (QC): 5 Gait Level of Assist: 6 Gait Assistive Device: FWW Does the Pt use WC or Scooter?: No Stairs (FIM): 2 # of Steps: 4 1 Step (curb) (QC): 5 4 Steps (QC): 5 12 Steps (QC): 9 Stairs Level Of Assist: 6 Picking up an Object (QC): 5 PT Plan Problem List Problem List: Activity Tolerance, Functional Strength, Safety, Balance, Gait, Transfer Treatment/Plan Treatment Plan: Continue Plan of Care Treatment Plan: Bed Mobility, Education, Functional Activity [place], Functional Strength, Group Therapy, Gait, Safety, Therapeutic Exercise, Transfers Treatment Duration: Oct 29, 2016 Visits Per Week: 11 Minutes/Day (M-F): 60-90 Minutes/Day (Sat/Rodriguez): PRN Safety Risks/Education Patient Education: Gait Training, Transfer Techniques, Correct Positioning, Safety Issues Teaching Recipient: Patient Teaching Methods: Discussion Response to Teaching: Verbalize Understanding Time/GCodes Time In: 1400 Time Out: 1430 Total Billed Treatment Time: 30 Total Billed Treatment visit, GT x2 (30m) IRENE DE LUNA PTA Oct 19, 2016 16:05
[2016-10-19 19:33] VITALS: BP 125/70
--- NOTE | 2016-10-19 19:39 | PM & R (SOAP) Progress Note ---
Subjective Time Seen by Provider: 07:30 Subjective/Events-last exam Patient was seen in her room earlier today.Patient SBA for transfers and gait with WW Objective Exam Last Set of Vital Signs Vital Signs Date Time Temp Pulse Resp B/P (MAP) Pulse Ox O2 Delivery O2 Flow Rate FiO2 10/19/16 19:33 98.4 68 16 125/70 96 Room Air Capillary Refill : I&O Intake and Output 10/19/16 00:00 Intake Total 900 ml Balance 900 ml Intake Oral 900 ml # Voids 6 # Bowel Movements 2 General: Alert, Oriented X3, Cooperative, No Acute Distress HEENT: PERRLA, EOMI, Mucous Memb Moist/[place], Other (ecchymosis rt periorbital area) Neck: Supple, No JVD Lungs: Clear to Auscultation Heart: Regular Rate Abdomen: Normal Bowel Sounds, Soft, No Tenderness Extremities: No Edema Skin: Other (bruising as per above) Neuro: Other (guarding rt hip with tenderness) Assessment/Plan Assessment 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
[2016-10-19] MEDS: AMITRIPTYLINE 25 MG (ELAVIL) TAB PO SCH (20:24)
[2016-10-19] MEDS: meTOproloL SUCCINATE 50 MG (TOPROL XL) TAB PO SCH (20:24)
[2016-10-20 05:55] VITALS: BP 131/71
[2016-10-20] MEDS: MULTIVIT W/MINERALS TAB (THERAGRAN M) PO SCH (06:26)
[2016-10-20] MEDS: IBUPROFEN TABLET 200 MG TAB PO PRN (06:27)
[2016-10-20] MEDS: CYANOCOBALAMIN 500 MCG TAB (VITAMIN B-12) PO SCH (07:47)
[2016-10-20] MEDS: amLODIPine 5 MG (NORVASC) TAB PO SCH (07:47)
[2016-10-20] MEDS: DOCUSATE SODIUM 100 MG (COLACE) CAP PO SCH (07:47)
[2016-10-20] MEDS: ASPIRIN E.C. 325 MG (ECOTRIN) TABLET PO SCH (07:47)
[2016-10-20] MEDS: lisINopril 10 MG (PRINIVIL) TAB PO SCH (07:47)
[2016-10-20] MEDS: DICLOFENAC 1% GEL 100 GM (VOLTAREN) TUBE TOP SCH ×4 (07:48→20:44)
[2016-10-20] MEDS: HYDROcodone/APAP 5 MG/325 MG (LORTAB) TAB PO PRN ×3 (07:48→21:51)
--- NOTE | 2016-10-20 08:20 | PM & R (SOAP) Progress Note ---
Subjective Time Seen by Provider: 07:40 Subjective/Events-last exam Patient was seen in her room this AM Doing well in apartment Patient SBA for transfers and gait with walker Review of Systems Musculoskeletal: leg pain Objective Exam Last Set of Vital Signs Vital Signs Date Time Temp Pulse Resp B/P (MAP) Pulse Ox O2 Delivery O2 Flow Rate FiO2 10/20/16 05:55 97.4 60 16 131/71 96 Room Air Capillary Refill : I&O Intake and Output 10/20/16 00:00 Intake Total 900 ml Balance 900 ml Intake Oral 900 ml # Voids 7 # Bowel Movements 1 General: Alert, Oriented X3, Cooperative, No Acute Distress HEENT: PERRLA, EOMI, Mucous Memb Moist/[place], Other (ecchymosis rt periorbital area) Neck: Supple, No JVD Lungs: Clear to Auscultation Heart: Regular Rate Abdomen: Normal Bowel Sounds, Soft, No Tenderness Extremities: No Edema Skin: Other (bruising as per above) Neuro: Other (guarding rt hip with tenderness) Assessment/Plan Assessment S/P fall with rt hip contusion with underlying DJD Chronic low back pain HTN controlled Pain management Severe OA rt Hip-pain improving Constipation Plan Continue PT/OT Adjust meds as needed Trial of Voltaran gel-done Rechecked Xray rt hip Dr Ratliff has done RT HIP injection under Fluoro 10-15-16 Appreciate his assistance Discharge set tentatively for 10/21/16 Adjust bowel program as needed Pain management-pain decreasing Next Team Conference later today-See report for full functional update and POC and to confirm discharge date SHANTANU MURRAY MD Oct 20, 2016 08:20
--- NOTE | 2016-10-20 09:16 | Physical Therapy Daily Note ---
PT Daily Note-Current Subjective Agreeable to PT. Feels she is ready to go home tomorrow. Reports her hip pain is "100 degrees better". Pain Numeric Pain Scale: 3 Location: Right Location Body Site: Hip (froin) Pain Description: Ache Mental Status Patient Orientation: Person, Place, Time, Situation Transfers Functional [place] Measure 0=Not Assessed/NA 4=Minimal Assistance 1=Total Assistance 5=Supervision or Setup 2=Maximal Assistance 6=Modified [place] 3=Moderate Assistance 7=Complete IndependenceIRFPAI Quality Coding Scale 6 Independent with activity with or without an assistive device 5 Patient requires set up or clean up by helper. Patient completes activity by themselves 4 Supervision or touching assist (CGA). [place] provide cues , steadying assist 3 The helper provides less than half the effort to complete the activity 2 The helper provides more than half the effort to complete the activity 1 Dependent. The helper does all the effort to complete an activity 7 Patient refused to complete or attempt activity 9 The patient did not perform the activity before the current illness or injury 88 Not attempted due to Medical conditions or safety concerns Transfers (B, C, W/C) (FIM): 6 Roll Left to Right (QC): 6 Supine to/from Sit: 6 Sit to/from Stand: 6 Sit to Lying (QC): 6 Sit to Stand (QC): 6 Chair/Bfl-wj-Ahpab Xfer(QC): 6 Bed to/from Chair: 6 Pt is slow with all transfers but able to complete without assist; she uses the bedrail for bed mobility. Pt notes she does not sleep in her bed at home, rather sleeps in her recliner. Pt also performed toilet transfer mod indep. Weight Bearing Weight Bearing Restriction: Weight Bearing/Tolerated Gait Training Does the Patient Walk?: Yes Gait (FIM): 6 Distance (FIM): 3=150 ft Distance: 225 ft x 2; 50 ft x 2 Walk 10 feet (QC): 6 Walk 50 ft with 2 Turns(QC): 6 Walk 150 ft (QC): 6 Walking 10ft/uneven surface-QC: 6 Gait Assistive Device: FWW Slow gait with decreased step through with the left LE; safe and steady without noted LOB. Wheelchair Training Does the Pt Use a Wheelchair?: No Stair Training Stairs (FIM): 5 (houshold distance) #of Steps: 8 1 Step (curb) (QC): 6 4 Steps (QC): 6 12 Steps (QC): 88 Stairs: Pattern: Step to Pt able to go up and down using the handrail and reaching across to use just 1 handrail. Very slow but completes without verbal cues or assist. Pt's setup at home is slightly different, she will work further on stairs with [facility] PT. Balance Picking up an Object (QC): 88 (Feel it is unsafe to attempt. 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 ) Treatments 2 separate treatments this morning. Observed pt getting in and out of bed and to the bathroom; on a subsequent visit pt walked and worked on the stairs. Assessment Current Status: Excellent Progress Pt is making excellent progress towards established goals. Feel she will be ready for discharge tomorrow. PT [facility] Goals Sales Forecast Analyst Goals PT [facility] Goals Time Frame: Oct 29, 2016 Transfers (B,C,W/C) (FIM): 6 (met-6) Sit to Lying (QC): 6 (met-6) Lying-Sitting on Side/Bed(QC): 6 (met-6) Sit to Stand (QC): 6 (mt-6) Rollin Roll Left to Right (QC): 6 (met 6) Chair/Cfo-qc-Vgwzc Xfer(QC): 6 (met 6) Car Transfer (QC): 6 Does the Patient Walk: Yes Gait (FIM): 6 (met -6) Gait distance (FIM): 3=150 ft Distance: 250' Walk 10 feet (QC): 5 (exceeded 6) Walk 10ft-Uneven Surface(QC): 5 (exceeded 6) Walk 50ft with 2 Turns (QC): 5 (exceeded 6) Walk 150 ft (QC): 5 (exceeded-6) Gait Level of Assist: 6 Gait Assistive Device: FWW Does the Pt use WC or Scooter?: No Stairs (FIM): 2 (exceeded 5) # of Steps: 4 1 Step (curb) (QC): 5 (exceeded 6) 4 Steps (QC): 5 12 Steps (QC): 9 Stairs Level Of Assist: 6 Picking up an Object (QC): 5 (unmet unsafe to attempt) PT Plan Problem List Problem List: Activity Tolerance, Functional Strength, Safety Treatment/Plan Treatment Plan: Continue Plan of Care Treatment Plan: Bed Mobility, Education, Functional Activity [place], Functional Strength, Group Therapy, Gait, Safety, Therapeutic Exercise, Transfers Treatment Duration: Oct 29, 2016 Visits Per Week: 11 Minutes/Day (M-F): 60-90 Minutes/Day (Sat/Rodriguez): PRN Safety Risks/Education Patient Education: Gait Training, Steps Teaching Recipient: Patient Teaching Methods: Demonstration Response to Teaching: Return Demonstration Discharge Recommendations Plan Plan for discharge tomorrow with recommended follow up [facility] PT. Therapy D/C Recommendations: Physical Therapy Home Care Time/GCodes Time In: 715 (830) Time Out: 730 (915) Total Billed Treatment Time: 60 Total Billed Treatment visit x 2 FA 15 GT 45 SHAHNAZ SMITH PT Oct 20, 2016 09:16
--- NOTE | 2016-10-20 11:55 | Occupational Ther Daily Note ---
OT Current Status-Daily Note Subjective Pt denisa in room, up in recliner, agreeable to OT. Pt reported she has less pain in her hip and felt the injection was finally helping. Appearance Alert, cooperative Mental Status/Objective Functional [place] Measure 0=Not Assessed/NA 4=Minimal Assistance 1=Total Assistance 5=Supervision or Setup 2=Maximal Assistance 6=Modified [place] 3=Moderate Assistance 7=Complete [place] ADL-Treatment Functional [place] Measure 0=Not Assessed/NA 4=Minimal Assistance 1=Total Assistance 5=Supervision or Setup 2=Maximal Assistance 6=Modified [place] 3=Moderate Assistance 7=Complete IndependenceIRFPAI Quality Coding Scale 6 Independent with activity with or without an assistive device 5 Patient requires set up or clean up by helper. Patient completes activity by themselves 4 Supervision or touching assist (CGA). [place] provide cues , steadying assist 3 The helper provides less than half the effort to complete the activity 2 The helper provides more than half the effort to complete the activity 1 Dependent. The helper does all the effort to complete an activity 7 Patient refused to complete or attempt activity 9 The patient did not perform the activity before the current illness or injury 88 Not attempted due to Medical conditions or safety concerns Eating (FIM): 7 (No problems opening packages, ordering food, feeding herself. No dentures) Eating (QC): 6 Grooming (FIM): 6 (Mod I at sink, with FWW for balance. brushed teeth and combed hair. Washed face and hands in shower. ) Oral Hygiene (QC): 6 Bathing (FIM): 6 (Pt turned water on and off and retrieved towels from bar. Washed and dried all parts. Shower bench, grab bars, hand held shower, long handled sponge.) Shower/Bathe Self (QC): 6 Upper Body (FIM): 6 (retrieved clean clothes from closet and put dirty ones away, FWW for balance. Doffed and donned clothing, modified technique as needed due to decreased AROM R shoulder) Upper Body Dressing (QC): 6 Lower Body Dressing (FIM): 6 (retrieved clean clothes and put dirty ones away in closet, FWW for balance and for transporting clothing. Doffed and donned all items, including shoes and socks, sock aid, dressing stick. Has elastic shoe laces) Lower Body Dressing (QC): 6 On/Off Footwear (QC): 6 Toileting (FIM): 6 (On/off BSC over toilet (for height and arms for pushing up) . She has stool riser at home and is confident she will be able to manage FWW. Managed clothing and hygiene) Toileting Hygiene (QC): 6 Toilet/Commode Transfer (FIM): 6 (On/off BSC over toilet, FWW) Toilet Transfer (QC): 6 Shower Transfer(FIM): 5 (SBA for stepping in and out of shower due to placement of FWW and grab bars (she continues to bear weight on FWW when moving) ) All ADLs took longer than usual due to deliberate, slow movements. P also walked with FWW, without help, to and from a different room because her room has a bathtub and she has a walk-in shower at home (to simulate home environment. Pt left up at EOB, all needs met. She is very confident in her abilities to go home tomorrow. Education OT Patient Education: Modified ADL techniques, Progress toward Goal/Update tx plan, Purpose of tx/functional activities, Safety issues Teaching Recipient: Patient Response to Teaching: Return Demonstration OT Short Term Goals Short Term Goals Time Frame: Oct 15, 2016 Bathing(FIM): 5 Lower Body Dressing(FIM): 5 Additional Short Term Goals: 2-Verbalize Understanding, 3-ImproveStrength/Desean 1=Demonstrate adherence to instructed precautions during ADL tasks. 2=Patient will verbalize/demonstrate understanding of assistive devices/ modifications for ADL. 3=Patient will improve strength/tolerance for activity to enable patient to perform ADL's. OT Entry Level Marketing Assistant Goals [facility]pc Goals Time Frame: Oct 22, 2016 Eating (FIM): 7 (No dentures) Eating (QC): 6 Groomin Oral Hygiene (QC): 6 Bathing(FIM): 6 Shower/Bathe Self (QC): 6 Upper Body Dressing(FIM): 6 Upper Body Dressing (QC): 6 Lower Body Dressing(FIM): 6 Lower Body Dressing (QC): 6 On/Off Footwear (QC): 6 Toileting(FIM): 6 Toileting Hygiene (QC): 6 Toilet/Commode Transfer(FIM): 6 Toilet/Commode Transfer (QC): 6 Shower Transfer(FIM): 6 Additional Goals: 2-Verbalize Understanding, 3-ImproveStrength/[place]ese[place] 1=Demonstrate adherence to instructed precautions during ADL tasks. 2=Patient will verbalize/demonstrate understanding of assistive devices/ modifications for ADL. 3=Patient will improve strength/tolerance for activity to enable patient to perform ADL's. OT Education/Plan Problem List/Assessment Pt would benefit from skilled OT to increase her independence in basic self care to allow her to safely return home to live independently. Discharge Recommendations Plan/Recommendations: Continue POC Treatment Plan/Plan of Care Patient would benefit from OT for education, treatment and training to promote independence in ADL's, mobility, safety and/or upper extremity function for ADL' s. Plan of Care: ADL Retraining, Functional Mobility, Group Exercise/Act as Ind ( education, exercise, activity tolerance, functional activities, socialization), UE Funct Exercise/Act, UE Neuromus Re-Ed/Coord Treatment Duration: Oct 22, 2016 Visits Per Week: 10-11 Minutes/Day (M-F): 75-90 Minutes/Day (Sat/Rodriguez): PRN Agreement: Yes Rehab Potential: Good Time/GCodes Start Time: 09:15 Stop Time: 10:15 Total Time Billed (hr/min): 60 Billed Treatment Time visit, 60 minutes ADL ZEINA CAMPOS OT Oct 20, 2016 11:55
--- NOTE | 2016-10-20 13:45 | Progress Note-Hospitalist ---
Progress Note HPI/CC on Admission CC: Medical management along with rehab following fall and severe right hip pain unable to ambulate HPI: This is an 86-year-old white female clinic patient of Dr. Dobbins's Judy presents following a fall with no fracture noted on the right where she was having pain on x-ray or CT scan but osteoarthritis appearing severe in the joint causing the patient to be unable to ambulate and she lives at home so she was stabilized on the acute medical floor and transferred to acute rehabilitation to [facility] prior to going home. Currently her bowels are moving she is requesting a DO NOT RESUSCITATE which order was placed and overall very appreciative of the fact that inpatient rehabilitation is available here to help her because she could not go home in the states she was in yesterday. Progress Notes/Assess & Plan Date Seen 10/20/16 Time Seen by Provider: 11:45 Admission Dx/Process Patient doing well overall but hip pain continues even after injection attempted Bowels are moving okay No fever, vital signs stable, pleasant Clear to auscultation bilaterally No edema Continue inpatient rehabilitation Diagonsis/Assessment & Plan patient doing extremely well and it appears that hip injection has worked now Ready go home tomorrow No fever, vital signs stable, pleasant Regular rate rhythm, clear to auscultation bilaterally No edema Assessment: Fall with subsequent right hip pain unable to ambulate and lives alone with 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
--- NOTE | 2016-10-20 14:39 | Therapy Group Daily Note ---
Therapy Daily Group Note Patient Education Topic Other List Below Exercises LE Seated Exercise, UE Exercise Other/Notes Pt was an active participant in OT/PT group. She walked from her room to group by herself, with FWW, and no LOB. She introduced herself by naming her favorite summertime activity and then later recalled activities of other participants. She participated in group education/discussion on memory strategies and was able to identify one strategy that she uses successfully. Group concluded with a memory activity for application of strategies and she was successful. After group, she walked safely with FWW to a table to play cards with her friends, all needs met. Start Time: 13:00 Stop Time: 14:15 Total Billed Treatment Time: 75 Total Billed Treatment visit, 75 minutes group ZEINA CAMPOS OT Oct 20, 2016 14:39
[2016-10-20] MEDS ORDERED: AMLO5TAB2 PO (16:17)
[2016-10-20] MEDS ORDERED: HYDR-3812 PO (16:17)
[2016-10-20] MEDS ORDERED: DICL100G18 TOP (16:17)
[2016-10-20] MEDS ORDERED: IBUP-2055 PO (16:17)
[2016-10-20 18:05] VITALS: BP 120/68
[2016-10-20] MEDS: AMITRIPTYLINE 25 MG (ELAVIL) TAB PO SCH (20:43)
[2016-10-20] MEDS: meTOproloL SUCCINATE 50 MG (TOPROL XL) TAB PO SCH (20:43)
[2016-10-21] MEDS: HYDROcodone/APAP 5 MG/325 MG (LORTAB) TAB PO PRN (01:57)
[2016-10-21 06:20] VITALS: BP 161/71
[2016-10-21] MEDS: IBUPROFEN TABLET 200 MG TAB PO PRN (06:25)
[2016-10-21] MEDS: MULTIVIT W/MINERALS TAB (THERAGRAN M) PO SCH (06:25)
--- NOTE | 2016-10-21 08:26 | PM & R (SOAP) Progress Note ---
Subjective Time Seen by Provider: 07:45 Subjective/Events-last exam Patient was seen in her room this AM Has progressed well Hip pain decreasing Discharge remains for today. Objective Exam Last Set of Vital Signs Vital Signs Date Time Temp Pulse Resp B/P (MAP) Pulse Ox O2 Delivery O2 Flow Rate FiO2 10/21/16 06:20 96.4 77 18 161/71 95 Room Air Capillary Refill : I&O Intake and Output 10/20/16 23:59 Intake Total 1840 ml Balance 1840 ml Intake Oral 1840 ml # Voids 8 # Bowel Movements 1 General: Alert, Oriented X3, Cooperative, No Acute Distress HEENT: PERRLA, EOMI, Mucous Memb Moist/[place], Other (ecchymosis rt periorbital area) Neck: Supple, No JVD Lungs: Clear to Auscultation Heart: Regular Rate Abdomen: Normal Bowel Sounds, Soft, No Tenderness Extremities: No Edema Skin: Other (bruising as per above) Neuro: Other (guarding rt hip with tenderness) Assessment/Plan Assessment S/P fall with rt hip contusion with underlying DJD Chronic low back pain HTN controlled Pain management Severe OA rt Hip-pain improving Constipation Plan Discharge today to home with [facility] F/U with DR Dobbins PCP See orders. SHANTANU MURRAY MD Oct 21, 2016 08:26
[2016-10-21] MEDS: DICLOFENAC 1% GEL 100 GM (VOLTAREN) TUBE TOP SCH ×2 (08:41→14:03)
[2016-10-21] MEDS: DOCUSATE SODIUM 100 MG (COLACE) CAP PO SCH (08:41)
[2016-10-21] MEDS: lisINopril 10 MG (PRINIVIL) TAB PO SCH (08:41)
[2016-10-21] MEDS: ASPIRIN E.C. 325 MG (ECOTRIN) TABLET PO SCH (08:41)
[2016-10-21] MEDS: amLODIPine 5 MG (NORVASC) TAB PO SCH (08:41)
[2016-10-21 13:13] VITALS: BP 161/71
--- NOTE | 2016-10-22 09:00 | Therapy Team Discharge Summary ---
Therapy Discharge Summary Discharge Recommendations Date of Discharge Oct 21, 2016 at 13:50 Therapy D/C Recommendations: Occupational Therapy Home Care, Physical Therapy Home Care Occupational Therapy Pt was seen for skilled OT to increase her independence in basic self care to allow her to safely return to her home to live safely by herself after a fall and hip pain. On admission she needed min to CGA for bathing, lower body dressing, shower transfers, setup to supervision for grooming, upper body dressing, toileting, toilet transfers and independent with eating. By discharge she was independent with eating and modified independent with all other basic ADLs except SBA for shower transfer. Equipment used included socks aid, dressing stick, BSC over toilet, shower chair, grab bars, hand held shower and FWW. See tx plan for goals met. Pt may benefit from skilled OT. DC OT PT Nursing Home Goals Nursing Home Goals PT [place] Goals Time Frame: Oct 29, 2016 Transfers (B,C,W/C) (FIM): 6 (met-6) Roll Left to Right (QC): 6 (met 6) Sit to Lying (QC): 6 (met-6) Lying-Sitting on Side/Bed(QC): 6 (met-6) Sit to Stand (QC): 6 (mt-6) Chair/Rkq-sn-Rlakd Xfer(QC): 6 (met 6) Car Transfer (QC): 6 Does the Patient Walk: Yes Gait (FIM): 6 (met -6) Gait distance (FIM): 3=150 ft Distance: 250' Walk 10 feet (QC): 5 (exceeded 6) Walk 10ft-Uneven Surface(QC): 5 (exceeded 6) Walk 50ft with 2 Turns (QC): 5 (exceeded 6) Walk 150 ft (QC): 5 (exceeded-6) Gait Level of Assist: 6 Gait Assistive Device: FWW Does the Pt use WC or Scooter?: No Stairs (FIM): 2 (exceeded 5) # of Steps: 4 1 Step (curb) (QC): 5 (exceeded 6) 4 Steps (QC): 5 12 Steps (QC): 9 Stairs Level Of Assist: 6 Picking up an Object (QC): 5 (unmet unsafe to attempt) OT Nursing Home Goals [place] Goals Time Frame: Oct 22, 2016 Eating (FIM): 7 (No denturesmet 6-28-17) Eating (QC): 6 (met 10-20-16) Oral Hygiene (QC): 6 (met 10-20-16) Grooming(FIM): 6 (met 10-20-16) Bathing(FIM): 6 (met 10-20-16) Shower/Bathe Self (QC): 6 (met 10-20-16) Upper Body Dressing(FIM): 6 (met 10-20-16) Upper Body Dressing (QC): 6 (met 10-20-16) Lower Body Dressing(FIM): 6 (met 10-20-16) Lower Body Dressing (QC): 6 (met 10-20-16) On/Off Footwear (QC): 6 (met 10-20-16) Toileting(FIM): 6 (met 10-20-16) Toileting Hygiene (QC): 6 (met 10-20-16) Toilet/Commode Transfer(FIM): 6 (met 10-20-16) Toilet/Commode Transfer (QC): 6 (met 10-20-16) Shower Transfer(FIM): 6 (not met) Additional Goals: 2-Verbalize Understanding, 3-ImproveStrength/[place] 1=Demonstrate adherence to instructed precautions during ADL tasks. 2=Patient will verbalize/demonstrate understanding of assistive devices/ modifications for ADL. 3=Patient will improve strength/tolerance for activity to enable patient to perform ADL's. ZEINA CAMPOS OT Oct 22, 2016 09:00
== END 2016-10-21 13:50 | disposition home health service (06) | DRG 554 ==
LOC: ENPENDDIS 10-21 12:00
PROVIDERS: ADMIT Physical Medicine & Rehabilitation; ATTEND Physical Medicine & Rehabilitation
PROC: 3E0U33Z Introduction of Anti-inflammatory into Joints, Percutaneous Approach (ICD-10-PCS; principal; 2016-10-15 10:12)
DX: M16.11 Unilateral primary osteoarthritis, right hip (principal); S70.01XD Contusion of right hip, subsequent encounter; M54.5 Low back pain; I25.10 Atherosclerotic heart disease of native coronary artery without angina pectoris; E78.5 Hyperlipidemia, unspecified; I10 Essential (primary) hypertension; I73.9 Peripheral vascular disease, unspecified; Z66 Do not resuscitate; K59.09 Other constipation; K21.9 Gastro-esophageal reflux disease without esophagitis; Z95.5 Presence of coronary angioplasty implant and graft; Z95.820 Peripheral vascular angioplasty status with implants and grafts; Z95.1 Presence of aortocoronary bypass graft; W19.XXXD Unspecified fall, subsequent encounter
CPT/HCPCS: 72170; 73502

== ENCOUNTER → 2016-12-22 | Outpatient (CLI) | payer MEDICARE ==
[~2016-12-22] MED LIST changes: +DICL100G18 TOP; +IBUP-2055 PO; +METO-370 PO
--- NOTE | 2016-12-22 17:36 | Diagnostic Imaging Report ---
INDICATION: Recent falls. COMPARISON: None. FINDINGS: Frontal and lateral radiographic views of the lumbar spine were obtained. There is compression deformity of the L2 vertebral body primarily involving the superior endplate and resulting in approximately 30% vertebral body height loss. There is however no prior available for comparison. Other remaining vertebral body heights are preserved. There are moderate degenerative changes consisting of significant intervertebral disc height loss with anterior and posterior disc osteophyte complex formations, as well as multilevel facet arthropathy. Evaluation of the static alignment demonstrates S-shaped scoliotic deformity of the lower thoracic and lumbar spine. There is also mild multilevel anterolisthesis extending from the L3-L4 through L5-S1 levels. Surrounding soft tissue structures show calcified aortic atherosclerosis. IMPRESSION: 1. Compression deformity of the L2 vertebral body; age-indeterminate. Correlation with MRI is recommended. If MRI is contraindicated, nuclear medicine bone scan with SPECT imaging is recommended. 2. Moderate multilevel degenerative changes of the lumbar spine. Dictated by: Dictated on workstation # [id number]
== END ==
LOC: RAD 14:57
PROVIDERS: ATTEND Internal Medicine
DX: S32.020A Wedge compression fracture of second lumbar vertebra, initial encounter for closed fracture (principal); M47.816 Spondylosis without myelopathy or radiculopathy, lumbar region; X58.XXXA Exposure to other specified factors, initial encounter; Y99.8 Other external cause status
CPT/HCPCS: 72100

== ENCOUNTER 2017-01-17 15:44 | Outpatient (RCR) | payer MEDICARE ==
[~2017-01-17 15:44] MED LIST changes: -METO-370 PO
== END 2017-01-22 | disposition home or self-care (01) ==
PROVIDERS: ATTEND Nurse Practitioner
DX: M54.2 Cervicalgia (principal); M54.5 Low back pain

== ENCOUNTER 2017-03-11 14:31 | Outpatient (RCR) | payer MEDICARE ==
[~2017-03-11 14:31] MED LIST changes: +ACHD5005 PO; -HYDR-3812 PO; +METO-370 PO
== END 2017-04-28 | disposition home or self-care (01) ==
PROVIDERS: ATTEND Nurse Practitioner
DX: M54.2 Cervicalgia (principal); M54.5 Low back pain

== ENCOUNTER 2018-02-01 09:43 | Emergency (ER) | payer MEDICARE ==
[~2018-02-01] VITALS: Ht 172.7 cm; Wt 76.2 kg
[~2018-02-01 09:43] MED LIST changes: -AMLO5TAB2 PO; +AMLO5TAB7 PO; +ONDA2VIACC IVP; -ONDA4VIA28 IVP
--- NOTE | 2018-02-01 10:47 | Diagnostic Imaging Report ---
INDICATION: Fall with injury to head and neck pain. CT BRAIN FINDINGS: Noncontrast brain CT is performed. There are diffuse atrophic changes. 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 There is no acute hemorrhage or mass effect or acute intracranial process. There is right frontal scalp swelling. There is no overt calvarial fracture. CT CERVICAL SPINE FINDINGS: Axial slices are obtained with sagittal coronal reconstructions without contrast. There is diffuse facet degenerative change throughout all levels. There is disc space narrowing and osteophyte formation throughout all levels. There is no acute fracture seen. There is anterolisthesis of C4 on C5 by about 2 mm, which may be on degenerative basis. There is slight retrolisthesis of C5 on C6 by about 2 mm. IMPRESSION: CT brain shows atrophic changes and chronic changes in the deep white matter as above. There is no acute hemorrhage or calvarial fracture. No new intracranial abnormality compared to 10/07/2016. CT cervical spine shows multilevel degenerative changes as above with slight retrolisthesis of C5 on C6 and slight anterolisthesis of C4 and C5. These findings are likely on degenerative basis and appeared similar on 10/07/2016. Dictated by: Dictated on workstation # [id number]
--- NOTE | 2018-02-01 10:55 | Diagnostic Imaging Report ---
INDICATION: Fall with chest pain. EXAMINATION: Frontal chest at 1058 hours. COMPARISON: 11/01/2014. FINDINGS: There is cardiomegaly. There are chronic appearing increased interstitial markings with some apical fibrotic change in the right side. There are nodular appearing densities overlying both lung bases, increased on the right side and new on the left side compared to the previous study. I would consider a chest CT for further evaluation. IMPRESSION: Cardiomegaly, chronic interstitial changes, and chronic right apical fibrotic changes. There are nodular densities overlying both lung bases, increased on the right and new on the left side compared to the previous study. Metastatic disease is not excluded. I would consider a chest CT as clinically warranted. Dictated by: Dictated on workstation # [id number]
--- NOTE | 2018-02-01 10:56 | Diagnostic Imaging Report ---
INDICATION: Fall with pelvic and right hip pain AP pelvis and AP and oblique views of the right hip are obtained. No acute fracture or acute bony abnormality is seen. There is advanced osteoarthritic change of the right hip joint with severe joint space narrowing and osteophyte formation and subchondral geode formation. Vascular stents are noted over the left groin and right upper thigh. IMPRESSION: Advanced degenerative change of the right hip. No acute fracture or acute appearing bony abnormality. Dictated by: Dictated on workstation # [id number]
[2018-02-01 11:06] LABS: BASOPHILS # (AUTO) 0.1 10^3/uL (0.0-0.1); BASOPHILS % (AUTO) 1 % (0-10); EOSINOPHILS # (AUTO) 0.2 10^3/uL (0.0-0.3); EOSINOPHILS % (AUTO) 2 % (0-10); HEMATOCRIT 41 % (35-52); HEMOGLOBIN 13.3 G/DL (11.5-16.0); LYMPHOCYTES # (AUTO) 0.5 X 10^3 (1.0-4.0); LYMPHOCYTES % (AUTO) 6 % (12-44); MEAN CORPUSCULAR HEMOGLOBIN 30 PG (25-34); MEAN CORPUSCULAR HGB CONC 33 G/DL (32-36); MEAN CORPUSCULAR VOLUME 92 FL (80-99); MEAN PLATELET VOLUME 10.6 FL (7.4-10.4); MONOCYTES # (AUTO) 0.7 X 10^3 (0.0-1.0); MONOCYTES % (AUTO) 7 % (0-12); NEUTROPHILS # (AUTO) 7.7 X 10^3 (1.8-7.8); NEUTROPHILS % (AUTO) 85 % (42-75); PLATELET COUNT 239 10^3/uL (130-400); RED CELL DISTRIBUTION WIDTH 13.4 % (10.0-14.5); WHITE BLOOD COUNT 9.1 10^3/uL (4.3-11.0)
[2018-02-01 11:31] LABS: ALANINE AMINOTRANSFERASE 19 U/L (0-55); ALBUMIN 4.1 GM/DL (3.2-4.5); ALKALINE PHOSPHATASE 77 U/L (40-136); BILIRUBIN,TOTAL 0.7 MG/DL (0.1-1.0); BUN/CREATININE RATIO 26; CALCIUM 9.4 MG/DL (8.5-10.1); CARBON DIOXIDE 21 MMOL/L (21-32); CHLORIDE 107 MMOL/L (98-107); CREATININE SERUM 1.04 MG/DL (0.60-1.30); GFR ESTIMATED 50; GLUCOSE 110 MG/DL (70-105); POTASSIUM 4.5 MMOL/L (3.6-5.0); SODIUM 139 MMOL/L (135-145); TOTAL PROTEIN 6.6 GM/DL (6.4-8.2)
[2018-02-01 11:42] LABS: BAND NEUTROPHILS 1 %; BASOPHILS % (MANUAL) 1 %; EOSINOPHILS % (MANUAL) 1 %; LYMPHOCYTES % (MANUAL) 6 %; MONOCYTES % (MANUAL) 3 %; NEUTROPHILS % (MANUAL) 88 %; RBC MORPH NORMAL
[2018-02-01 11:49] LABS: BILIRUBIN,URINE NEGATIVE (NEGATIVE); CLARITY,URINE CLEAR; COLOR,URINE YELLOW; GLUCOSE, URINE (UA) NEGATIVE (NEGATIVE); KETONES,URINE 1+ (NEGATIVE); LEUKOCYTE ESTERASE ,URINE 2+ (NEGATIVE); NITRITE,URINE NEGATIVE (NEGATIVE); PH,URINE 6 (5-9); PROTEIN,URINE NEGATIVE (NEGATIVE); UROBILINOGEN,URINE NORMAL (NORMAL)
[2018-02-01 11:55] LABS: BACTERIA,URINE TRACE /HPF
[2018-02-01] MEDS ORDERED: LIDOCAINE 1% INJ 20 ML 20 ML VIAL INJ ONE (12:15)
[2018-02-01] MEDS ORDERED: TETANUS,DIPTH,PERTUSS P/F (BOOSTRIX) 0.5 ML VIAL IM ONE (12:15)
--- NOTE | 2018-02-01 12:44 | ED Fall/Injury ---
General Chief Complaint: Trauma-Non Activation Stated Complaint: FALL Nursing Triage Note: TO ED PER EMS WAS AT [facility] WHEN SHE SLIPPED AND FELL. LACERATION TO R SIDE FOREHEAD. Source: patient Exam Limitations: no limitations History of Present Illness Date Seen by Provider: Feb 01, 2018 Time Seen by Provider: 09:44 Initial Comments This 87-year-old woman presents to the emergency room via EMS after having a fall at the [facility]. She is not sure exactly what made her fall but she believes she slipped or tripped. She has felt a little bit dizzy but otherwise was feeling well. She struck her head in the right temporal region. She also complains of pain at the right hip. She denies loss of consciousness or signs or symptoms of concussion. She is alert and oriented on arrival. She denies any neck pain. She has a laceration to the right temporal region. Allergies and Home Medications Allergies Coded Allergies: atenolol (Verified Allergy, Unknown, 10/08/16) codeine (Verified Adverse Reaction, Mild, NAUSEA, 10/15/16) HEADACHE diltiazem (Verified Adverse Reaction, Mild, DOESN'T WANT, 10/08/16) indomethacin (Verified Adverse Reaction, Mild, DOESN'T WANT, 10/08/16) propranolol (Verified Adverse Reaction, Mild, DOESN'T WANT, 10/08/16) morphine (Verified Adverse Reaction, Unknown, 10/08/16) reports hearing things-reports she does not want to ever take. haS TOLERATED HYDROCODONE Uncoded Allergies: NITROPATCH (Adverse Reaction, Mild, DOESN'T WANT, 03/29/07) Home Medications Amitriptyline HCl 25 Mg Tablet, 25 MG PO HS, (Reported) Amlodipine Besylate 5 Mg Tablet, 5 MG PO DAILY Prescribed by: SHANTANU MURRAY on 10/20/161616 Aspirin 325 Mg Tablet.dr, 325 MG PO DAILY, (Reported) Cyanocobalamin (Vitamin B-12) 5,000 Mcg Tab.subl, 5,000 MCG SL MoWeFr, (Reported ) Diclofenac Sodium 100 Gm Gel..gram., 0 GM TOP QID Prescribed by: SHANTANU MURRAY on 10/20/161616 Docusate Sodium 100 Mg Capsule, 100 MG PO DAILY, (Reported) Glucosam/Chond/Hyalu/Cf Borate 1 Each Tablet, 1 TAB PO DAILY, (Reported) Hydrocodone Bit/Acetaminophen 1 Each Tablet, 1 TAB PO Q3HR PRN for PAIN-MODERATE Prescribed by: SHANTANU MURRAY on 10/20/161616 Ibuprofen 200 Mg Tablet, 400 MG PO Q6H PRN for PAIN-MILD Prescribed by: SHANTANU MURRAY on 10/20/161616 Lisinopril 10 Mg Tablet, 10 MG PO DAILY, (Reported) Lutein 40 Mg Capsule, 40 MG PO DAILY, (Reported) Metoprolol Succinate 50 Mg Tab.er.24h, 50 MG PO HS, (Reported) Multivitamin 1 Each Tablet, 1 TAB PO DAILY, (Reported) Polyethylene Glycol 17 Gm Pack, 17 GM PO DAILY PRN for CONSTIPATION-2ND LINE, ( Reported) Patient Home Medication List Home Medication List Reviewed: Yes Review of Systems Review of Systems Constitutional: no symptoms reported Eyes: No Symptoms Reported Ears, Nose, Mouth, Throat: no symptoms reported Respiratory: no symptoms reported Cardiovascular: see HPI Gastrointestinal: no symptoms reported Genitourinary: no symptoms reported Musculoskeletal: see HPI Skin: see HPI Psychiatric/Neurological: See HPI Past Xohioqy-Bllpwz-Gablvp Hx Past Med/Social Hx: Reviewed Nursing Past Med/Soc Hx Patient Social History Alcohol Use: Denies Use Recreational Drug Use: No Smoking Status: Never a Smoker Recent Foreign Travel: No Contact w/Someone Who Travel: No Recent Infectious Disease Expo: No Recent Hopitalizations: No Immunizations Up To Date Tetanus Booster (TDap): Unknown PED Vaccines UTD: No Date of Pneumonia Vaccine: Nov 23, 2013 Date of Influenza Vaccine: Feb 06, 2013 Seasonal Allergies Seasonal Allergies: No Past Medical History Surgeries: Yes (AMAURY, APPY, T&A, CATARACTS, STENTS- LEGS & HEART) Adenoidectomy, Appendectomy, Cardiac, Coronary Stent, Gallbladder, Orthopedic, Tonsillectomy, Vascular Surgery Respiratory: Yes Pneumonia Currently Using CPAP: No Currently Using BIPAP: No Cardiac: Yes (HEART STENT X1 IN 2014, STENTS X2 IN LEGS) Coronary Artery Disease, High Cholesterol, Hypertension, Peripheral Vascular Neurological: No Reproductive Disorders: No Female Reproductive Disorders: Denies Sexually Transmitted Disease: No HIV/AIDS: No Genitourinary: Yes UTI-Chronic Gastrointestinal: Yes Gastroesophageal Reflux, Chronic Constipation, Diverticulosis, Gall Bladder Disease Musculoskeletal: Yes (BACK PROBLEMS) Arthritis, Chronic Back Pain, Fractures Endocrine: No HEENT: Yes Cataract Loss of Vision: Bilateral Hearing Impairment: Hard of Hearing Cancer: No Psychosocial: No Integumentary: Yes (Shingles) Blood Disorders: No Family Medical History Reviewed Nursing Family Hx Arthritis 19 MOTHER, Onset:Unknown Diabetes mellitus 19 FATHER, Onset:Unknown Myocardial infarction 19 FATHER, Onset:Unknown 19 MOTHER, Onset:Unknown Physical Exam Vital Signs Vital Signs - First Documented 02/01/18 09:43 Pulse 83 Resp 18 B/P (MAP) 177/87 (117) Pulse Ox 96 O2 Delivery Room Air Capillary Refill : Less Than 3 Seconds Height, Weight, BMI Height: 5'8.00" Weight: 168lbs. 0.0oz. [id number]; 25.5 BMI Method:Stated General Appearance: WD/WN, no apparent distress HEENT: PERRL/EOMI, TMs normal, pharynx normal, other (bruising, swelling, and laceration of the right temporal region.) Neck: non-tender, supple, normal inspection Cardiovascular: regular rate, rhythm, no edema, no murmur Respiratory: lungs clear, normal breath sounds, no respiratory distress, no accessory muscle use Gastrointestinal: normal bowel sounds, non tender, soft Extremities: normal inspection, no pedal edema, other (tenderness of the right hip and pain with rotation) Neurologic/Psychiatric: hemp fiber taker off II-XII nml as tested, no motor/sensory deficits, alert, normal mood/affect, oriented x 3 Skin: normal color, warm/dry, ecchymosis [place] Coma Score Best Eye Response: (4) Open Spontaneously Best Verbal Response: (5) Oriented Best Motor Response: (6) Obeys Commands [place] Total: 15 Procedures/Interventions Wound Location: Face Other Wound Location Right temporal region Wound Length (cm): 2 Wound's Depth, Shape: linear, irregular, sub Q Wound Explored: clean Betadine Prep?: Yes Anesthesia: 1% Lidocaine Volume Anesthetic (ccs): 3 Suture: Prolene Suture Size: 4-0 Number of Sutures: 2 Sterile Dressing Applied?: Yes Progress Skin was cleaned with alcohol. Local anesthetic was injected. Wound was cleaned with sterile saline and chlorhexidine. Betadine prep was applied. Wound was approximated with Prolene suture. Progress/Results/Core Measures Results/Orders Lab Results Laboratory Tests Test 02/01/18 10:59 02/01/18 11:37 Range/Units White Blood Count 9.1 4.3-11.0 10^3/uL Red Blood Count 4.40 4.35-5.85 10^6/uL Hemoglobin 13.3 11.5-16.0 G/DL Hematocrit 41 35-52 % Mean Corpuscular Volume 92 80-99 FL Mean Corpuscular Hemoglobin 30 25-34 PG Mean Corpuscular Hemoglobin Concent 33 32-36 G/DL Red Cell Distribution Width 13.4 10.0-14.5 % Platelet Count 239 130-400 10^3/uL Mean Platelet Volume 10.6 H 7.4-10.4 FL Neutrophils (%) (Auto) 85 H 42-75 % Lymphocytes (%) (Auto) 6 L 12-44 % Monocytes (%) (Auto) 7 0-12 % Eosinophils (%) (Auto) 2 0-10 % Basophils (%) (Auto) 1 0-10 % Neutrophils # (Auto) 7.7 1.8-7.8 X 10^3 Lymphocytes # (Auto) 0.5 L 1.0-4.0 X 10^3 Monocytes # (Auto) 0.7 0.0-1.0 X 10^3 Eosinophils # (Auto) 0.2 0.0-0.3 10^3/uL Basophils # (Auto) 0.1 0.0-0.1 10^3/uL Neutrophils % (Manual) 88 % Lymphocytes % (Manual) 6 % Monocytes % (Manual) 3 % Eosinophils % (Manual) 1 % Basophils % (Manual) 1 % Band Neutrophils 1 % Blood Morphology Comment NORMAL Sodium Level 139 135-145 MMOL/L Potassium Level 4.5 3.6-5.0 MMOL/L Chloride Level 107 98-107 MMOL/L Carbon Dioxide Level 21 21-32 MMOL/L Anion Gap 11 5-14 MMOL/L Blood Urea Nitrogen 27 H 7-18 MG/DL Creatinine 1.04 0.60-1.30 MG/DL Estimat Glomerular Filtration Rate 50 BUN/Creatinine Ratio 26 Glucose Level 110 H 70-105 MG/DL Calcium Level 9.4 8.5-10.1 MG/DL Corrected Calcium 9.3 8.5-10.1 MG/DL Magnesium Level 2.0 1.8-2.4 MG/DL Total Bilirubin 0.7 0.1-1.0 MG/DL Aspartate Amino Transf (AST/SGOT) 12 5-34 U/L Alanine Aminotransferase (ALT/SGPT) 19 0-55 U/L Alkaline Phosphatase 77 40-136 U/L Troponin I < 0.30 <0.30 NG/ML Total Protein 6.6 6.4-8.2 GM/DL Albumin 4.1 3.2-4.5 GM/DL Urine Color YELLOW Urine Clarity CLEAR Urine pH 6 5-9 Urine Specific [place] 1.010 L 1.016-1.022 Urine Protein NEGATIVE NEGATIVE Urine Glucose (UA) NEGATIVE NEGATIVE Urine Ketones 1+ H NEGATIVE Urine Nitrite NEGATIVE NEGATIVE Urine Bilirubin NEGATIVE NEGATIVE Urine Urobilinogen NORMAL NORMAL MG/DL Urine Leukocyte Esterase 2+ H NEGATIVE Urine RBC (Auto) NEGATIVE NEGATIVE Urine RBC NONE /HPF Urine WBC 2-5 /HPF Urine Squamous Epithelial Cells 2-5 /HPF Urine Crystals NONE /LPF Urine Bacteria TRACE /HPF Urine Casts NONE /LPF Urine Mucus NEGATIVE /LPF Urine Culture Indicated NO My Orders Orders - ANTONY MCCALLUM MD Cbc With Automated Diff (02/01/18 09:49) Comprehensive Metabolic Panel (02/01/18 09:49) Magnesium (02/01/18 09:49) Troponin I (02/01/18 09:49) Ua Culture If Indicated (02/01/18 09:49) Chest 1 View, Ap/Pa Only (02/01/18 09:49) Pelvis With Right Hip 2-3views (02/01/18 09:49) Ct Head/Cervical Spine Wo (02/01/18 09:49) Saline Lock/Iv-Start (02/01/18 09:49) Ekg Tracing (02/01/18 09:49) Monitor-Rhythm Ecg Trace Only (02/01/18 09:49) Manual Differential (02/01/18 10:59) Dipht,Pertuss(Acell),Tet Adult (Boostrix (02/01/18 12:15) Lidocaine 1% Inj 20 Ml (Xylocaine 1% Inj (02/01/18 12:15) Medications Given in ED Vital Signs/I&O 02/01/18 02/01/18 09:43 12:58 Pulse 83 82 Resp 18 18 B/P (MAP) 177/87 (117) 117/77 (90) Pulse Ox 96 98 O2 Delivery Room Air Blood Pressure Mean: 117 Progress Progress Note #1: Progress Note CT of the head and cervical spine was obtained and showed no bony or intracranial injury. X-ray of the right hip and pelvis was also normal. The right temporal laceration was repaired with suture. Because of dizziness, labs , EKG, and UA were checked. Boostrix tetanus immunization was administered. Progress Note #2: Progress Note 02/04/18 - 09:20 - placed a follow-up phone call to the patient regarding her abnormal chest x-ray. I requested that she speak with Dr. Philip about those findings. Initial ECG Impression Date: Feb 01, 2018 Initial ECG Impression Time: 11:05 Initial ECG Rate: 86 Initial ECG Rhythm: Normal Sinus Comment Normal sinus rhythm with no ST elevation or depression. No abnormal intervals or axis deviation. Diagnostic Imaging Diagonstic Imaging: CT Plain Films/CT/US/NM/MRI: c-spine, head Comments CT head and cervical spine viewed by me and report reviewed. See report below: NAME: KYLEE VALDES MED REC#: [id number] PT STATUS: REG ER : 1930 PHYSICIAN: ANTONY MCCALLUM MD ADMIT DATE: 02/01/18/ER Signed Date of Exam: 02/01/18 CT HEAD/CERVICAL SPINE WO INDICATION: Fall with injury to head and neck pain. CT BRAIN FINDINGS: Noncontrast brain CT is performed. There are diffuse atrophic changes. 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 There is no acute hemorrhage or mass effect or acute intracranial process. There is right frontal scalp swelling. There is no overt calvarial fracture. CT CERVICAL SPINE FINDINGS: Axial slices are obtained with sagittal coronal reconstructions without contrast. There is diffuse facet degenerative change throughout all levels. There is disc space narrowing and osteophyte formation throughout all levels. There is no acute fracture seen. There is anterolisthesis of C4 on C5 by about 2 mm, which may be on degenerative basis. There is slight retrolisthesis of C5 on C6 by about 2 mm. IMPRESSION: CT brain shows atrophic changes and chronic changes in the deep white matter as above. There is no acute hemorrhage or calvarial fracture. No new intracranial abnormality compared to 10/07/2016. CT cervical spine shows multilevel degenerative changes as above with slight retrolisthesis of C5 on C6 and slight anterolisthesis of C4 and C5. These findings are likely on degenerative basis and appeared similar on 10/07/2016. Dictated by: Dictated on workstation # [id number] Dict: 02/01/18 1033 Trans: 02/01/181106 Interpreted by: OLEGARIO GLYNN MD Electronically signed by: OLEGARIO GLYNN MD 02/01/181106 Diagonstic Imaging: Xray Plain Films/CT/US/NM/MRI: pelvis, hip Comments NAME: KYLEE VALDES MED REC#: [id number] PT STATUS: REG ER : 1930 PHYSICIAN: ANTONY MCCALLUM MD ADMIT DATE: 02/01/18/ER Signed Date of Exam: 02/01/18 PELVIS WITH RIGHT HIP 2-3VIEWS INDICATION: Fall with pelvic and right hip pain AP pelvis and AP and oblique views of the right hip are obtained. No acute fracture or acute bony abnormality is seen. There is advanced osteoarthritic change of the right hip joint with severe joint space narrowing and osteophyte formation and subchondral geode formation. Vascular stents are noted over the left groin and right upper thigh. IMPRESSION: Advanced degenerative change of the right hip. No acute fracture or acute appearing bony abnormality. Dictated by: Dictated on workstation # [id number] Dict: 02/01/18 1047 Trans: 02/01/181106 Interpreted by: OLEGARIO GLYNN MD Electronically signed by: OLEGARIO GLYNN MD 02/01/181106 Reviewed: Reviewed by Co Diagonstic Imaging: Xray Plain Films/CT/US/NM/MRI: chest Comments Chest x-ray report reviewed. See report below: NAME: KYLEE VALDES MED REC#: [id number] PT STATUS: REG ER : 1930 PHYSICIAN: ANTONY MCCALLUM MD ADMIT DATE: 02/01/18/ER Signed Date of Exam: 02/01/18 CHEST 1 VIEW, AP/PA ONLY INDICATION: Fall with chest pain. EXAMINATION: Frontal chest at 1058 hours. COMPARISON: 11/01/2014. FINDINGS: There is cardiomegaly. There are chronic appearing increased interstitial markings with some apical fibrotic change in the right side. There are nodular appearing densities overlying both lung bases, increased on the right side and new on the left side compared to the previous study. I would consider a chest CT for further evaluation. IMPRESSION: Cardiomegaly, chronic interstitial changes, and chronic right apical fibrotic changes. There are nodular densities overlying both lung bases, increased on the right and new on the left side compared to the previous study. Metastatic disease is not excluded. I would consider a chest CT as clinically warranted. Dictated by: Dictated on workstation # [id number] Dict: 02/01/18 1046 Trans: 02/01/18 1107 Interpreted by: OLEGARIO GLYNN MD Electronically signed by: OLEGARIO GLYNN MD 02/01/181106 Departure Impression Primary Impression: Fall on same level Qualified Codes: W18.30XA - Fall on same level, unspecified, initial encounter Additional Impressions: Right hip pain Laceration of face Qualified Codes: S01.81XA - Laceration without foreign body of other part of head, initial encounter Hypertension Qualified Codes: I10 - Essential (primary) hypertension Dizziness Abnormal chest x-ray Disposition: 01 HOME, SELF-CARE Condition: Improved Departure-Patient Inst. Decision time for Depature: 12:30 Referrals: KAVITA PHILIP MD (PCP) Primary Care Physician Patient Instructions: Laceration Repair With Stitches (DC), Minor Head Injury ( DC) Add. Discharge Instructions: You may take [id number] medications to treat pain. Applying ice in 20 minute intervals may also help with pain and swelling. Keep your wound clean and dry except for normal showering. Avoid scrubbing directly over the wound. Wait until tomorrow to wash her hair or wash over the wound. Monitor the wound for signs of infection such as increasing redness, increasing swelling, increasing pain, puslike drainage, or fever. Return to care promptly few notice these symptoms. Return in about 7 days to have your sutures removed. Remember to take your usual medications today. All discharge instructions reviewed with patient and/or family. Voiced understanding. Copy Copies To 1: KAVITA PHILIP MD, JOSHUA T MD Feb 01, 2018 12:44
[2018-02-01 12:58] VITALS: BP 117/77
== END 2018-02-01 13:00 | disposition home or self-care (01) ==
LOC: EDUNIT# 09:43 → ER 09:44
DX: S01.81XA Laceration without foreign body of other part of head, initial encounter (principal); M25.551 Pain in right hip; I10 Essential (primary) hypertension; R42 Dizziness and giddiness; R91.8 Other nonspecific abnormal finding of lung field; I25.10 Atherosclerotic heart disease of native coronary artery without angina pectoris; E78.00 Pure hypercholesterolemia, unspecified; I73.9 Peripheral vascular disease, unspecified; K21.9 Gastro-esophageal reflux disease without esophagitis; R40.2142 Coma scale, eyes open, spontaneous, at arrival to emergency department; R40.2252 Coma scale, best verbal response, oriented, at arrival to emergency department; R40.2362 Coma scale, best motor response, obeys commands, at arrival to emergency department; Z23 Encounter for immunization; Z82.49 Family history of ischemic heart disease and other diseases of the circulatory system; Z87.19 Personal history of other diseases of the digestive system; Z87.440 Personal history of urinary (tract) infections; Z88.8 Allergy status to other drugs, medicaments and biological substances; Z79.82 Long term (current) use of aspirin; Z90.49 Acquired absence of other specified parts of digestive tract; Z98.62 Peripheral vascular angioplasty status; Z95.5 Presence of coronary angioplasty implant and graft; Z90.89 Acquired absence of other organs; Z87.01 Personal history of pneumonia (recurrent); Z88.5 Allergy status to narcotic agent; W19.XXXA Unspecified fall, initial encounter
CPT/HCPCS: 12011; 36415; 70450; 71045; 72125; 80053; 81000; 83735; 84484; 85007; 85027; 90715; 93005; 93041

== ENCOUNTER 2018-02-08 11:13 | Emergency (ER) | payer MEDICARE ==
[~2018-02-08] VITALS: Ht 157.5 cm; Wt 54.4 kg
[2018-02-08 11:25] VITALS: BP 195/95
== END 2018-02-08 11:35 | disposition home or self-care (01) ==
LOC: EDUNIT# 11:13 → ER 11:14
DX: Z48.02 Encounter for removal of sutures (principal)

== ENCOUNTER 2018-04-28 14:51 | Outpatient (RCR) | payer MEDICARE | END 2018-04-28 16:27 | disposition home or self-care (01) | PROVIDERS: ATTEND Internal Medicine | DX: R32 Unspecified urinary incontinence (principal) ==

== ENCOUNTER 2018-05-05 09:26 | Inpatient (IN) | payer MEDICARE ==
[~2018-05-05] VITALS: Ht 170.2 cm; Wt 72.6 kg
[2018-05-05] VITALS (9 sets, daily range): BP systolic 125–170; BP diastolic 65–95
[2018-05-05 10:42] LABS: BASOPHILS # (AUTO) 0.1 10^3/uL (0.0-0.1); BASOPHILS % (AUTO) 1 % (0-10); EOSINOPHILS # (AUTO) 0.1 10^3/uL (0.0-0.3); EOSINOPHILS % (AUTO) 2 % (0-10); HEMATOCRIT 43 % (35-52); HEMOGLOBIN 13.5 G/DL (11.5-16.0); LYMPHOCYTES # (AUTO) 0.5 X 10^3 (1.0-4.0); LYMPHOCYTES % (AUTO) 5 % (12-44); MEAN CORPUSCULAR HEMOGLOBIN 30 PG (25-34); MEAN CORPUSCULAR HGB CONC 31 G/DL (32-36); MEAN CORPUSCULAR VOLUME 96 FL (80-99); MEAN PLATELET VOLUME 10.9 FL (7.4-10.4); MONOCYTES # (AUTO) 0.9 X 10^3 (0.0-1.0); MONOCYTES % (AUTO) 9 % (0-12); NEUTROPHILS # (AUTO) 7.8 X 10^3 (1.8-7.8); NEUTROPHILS % (AUTO) 84 % (42-75); PLATELET COUNT 231 10^3/uL (130-400); RED BLOOD COUNT 4.51 10^6/uL (4.35-5.85); RED CELL DISTRIBUTION WIDTH 13.5 % (10.0-14.5); WHITE BLOOD COUNT 9.3 10^3/uL (4.3-11.0)
[2018-05-05 10:54] LABS: PROTHROMBIN TIME PATIENT 13.2 SEC (12.2-14.7)
--- NOTE | 2018-05-05 10:57 | Diagnostic Imaging Report ---
Indication: Cough and shortness of ai.r Time of exam: 11:09 AM Comparison is made with prior chest from 02/01/2018. The heart is enlarged but stable. Infiltrate in the right upper lobe on prior exam has cleared. There may be some minimal patchy infiltrate in the lung bases bilaterally. No significant effusion or pneumothorax is seen. There is calcified granuloma in the left base. Impression: Patchy bibasilar infiltrates. Previously noted right upper lobe infiltrate has cleared. Dictated by: Dictated on workstation # [id number]
[2018-05-05 11:03] LABS: ALBUMIN 4.1 GM/DL (3.2-4.5); BILIRUBIN,TOTAL 0.7 MG/DL (0.1-1.0); CALCIUM 9.2 MG/DL (8.5-10.1); CREATININE SERUM 1.02 MG/DL (0.60-1.30); POTASSIUM 4.8 MMOL/L (3.6-5.0); TOTAL PROTEIN 7.1 GM/DL (6.4-8.2)
[2018-05-05 11:05] LABS: BAND NEUTROPHILS 0 %; BASOPHILS % (MANUAL) 1 %; EOSINOPHILS % (MANUAL) 1 %; LYMPHOCYTES % (MANUAL) 10 %; MONOCYTES % (MANUAL) 9 %; NEUTROPHILS % (MANUAL) 79 %; RBC MORPH NORMAL
[2018-05-05] MEDS ORDERED: NS IV 1000 ML 1,000 ML IV ONE (11:09)
[2018-05-05] MEDS ORDERED: cefTRIAXone FOR IV USE 1,000 MG in NS (IVPB) 50 ML IV ONE (11:15)
[2018-05-05] MEDS ORDERED: OSELTAMIVIR 75 MG (TAMIFLU) CAPSULE PO ONE (11:15)
[2018-05-05 11:22] LABS: BILIRUBIN,URINE NEGATIVE (NEGATIVE); CLARITY,URINE CLEAR; COLOR,URINE YELLOW; GLUCOSE, URINE (UA) NEGATIVE (NEGATIVE); KETONES,URINE NEGATIVE (NEGATIVE); LEUKOCYTE ESTERASE ,URINE 2+ (NEGATIVE); NITRITE,URINE NEGATIVE (NEGATIVE); PH,URINE 5 (5-9); PROTEIN,URINE 2+ (NEGATIVE); UROBILINOGEN,URINE NORMAL (NORMAL)
[2018-05-05 11:35] LABS: BACTERIA,URINE NEGATIVE /HPF; SQUAMOUS EPITHELIAL CELL,UR 0-2 /HPF
--- NOTE | 2018-05-05 11:36 | ED General ---
General Chief Complaint: Cough/Cold/Flu Symptoms Stated Complaint: SOB;POSS PNEUMONIA Nursing Triage Note: PATIENT HERE FOR COMPLAINTS OF COUGH AND COLD SYMPTOMS FOR THE LAST FEW DAYS AND SOB TODAY. SHE WAS BROUGHT OVER BY POV. Nursing Sepsis Screen: No Definite Risk Source of Information: Patient, Other (Silvana Zamarripa and office notes) Exam Limitations: No Limitations History of Present Illness Date Seen by Provider: May 05, 2018 Time Seen by Provider: 09:27 Initial Comments This 87 year old woman presents to the emergency room at the direction of Silvana Zamarripa who saw her in the clinic. Patient has had some cough and congestion for the past couple of days. This morning she abruptly had onset of shortness of breath. In the clinic she was noted to have a heart rate in the 130 range and oxygen saturations in the upper 80s in association with shortness of breath after exertion. She is afebrile but tachycardic on arrival. Oxygen saturation is around 91 percent on room air. Patient denies any chest pain but she does have history of coronary artery disease. Allergies and Home Medications Allergies Coded Allergies: atenolol (Verified Allergy, Unknown, 05/05/18) codeine (Verified Adverse Reaction, Mild, NAUSEA, 05/05/18) HEADACHE diltiazem (Verified Adverse Reaction, Mild, DOESN'T WANT, 05/05/18) indomethacin (Verified Adverse Reaction, Mild, DOESN'T WANT, 05/05/18) propranolol (Verified Adverse Reaction, Mild, DOESN'T WANT, 05/05/18) morphine (Verified Adverse Reaction, Unknown, 05/05/18) reports hearing things-reports she does not want to ever take. haS TOLERATED HYDROCODONE Uncoded Allergies: NITROPATCH (Adverse Reaction, Mild, DOESN'T WANT, 03/29/07) Home Medications Amitriptyline HCl 25 Mg Tablet, 25 MG PO HS, (Reported) Aspirin 325 Mg Tablet.dr, 325 MG PO 2X WEEKLY, (Reported) Cyanocobalamin (Vitamin B-12) 5,000 Mcg Tab.subl, 5,000 MCG SL MoWeFr, (Reported ) Docusate Sodium 100 Mg Capsule, 100 MG PO DAILY, (Reported) Gabapentin 100 Mg Capsule, 100 MG PO HS, (Reported) Glucosam/Chond/Hyalu/Cf Borate 1 Each Tablet, 1 TAB PO DAILY, (Reported) Lisinopril 10 Mg Tablet, 10 MG PO DAILY, (Reported) Lutein 40 Mg Capsule, 40 MG PO DAILY, (Reported) Metoprolol Succinate 50 Mg Tab.er.24h, 50 MG PO HS, (Reported) Multivitamin 1 Each Tablet, 1 TAB PO DAILY, (Reported) Polyethylene Glycol 3350 17 Gm Powd.pack, 17 GM PO DAILY PRN for CONSTIPATION- 2ND LINE, (Reported) Tramadol HCl 50 Mg Tablet, 50 MG PO Q8H PRN for PAIN-MODERATE, (Reported) Patient Home Medication List Home Medication List Reviewed: Yes Review of Systems Review of Systems Constitutional: weakness EENTM: see HPI Respiratory: see HPI Cardiovascular: see HPI Gastrointestinal: no symptoms reported Genitourinary: no symptoms reported : No Musculoskeletal: no symptoms reported Skin: no symptoms reported Psychiatric/Neurological: No Symptoms Reported Hematologic/Lymphatic: No Symptoms Reported Immunological/Allergic: no symptoms reported Past Ozcczxd-Cdqsoa-Yjfgzu Hx Past Med/Social Hx: Reviewed Nursing Past Med/Soc Hx Patient Social History Alcohol Use: Occasionally Uses Recreational Drug Use: No Smoking Status: Never a Smoker 2nd Hand Smoke Exposure: No Recent Foreign Travel: No Contact w/Someone Who Travel: No Recent Infectious Disease Expo: No Recent Hopitalizations: No Physical Abuse: No Sexual Abuse: No Immunizations Up To Date Tetanus Booster (TDap): Unknown PED Vaccines UTD: No Date of Pneumonia Vaccine: Nov 23, 2013 Date of Influenza Vaccine: Feb 06, 2013 Seasonal Allergies Seasonal Allergies: No Past Medical History Surgeries: Yes (AMAURY, APPY, T&A, CATARACTS, STENTS- LEGS & HEART) Adenoidectomy, Appendectomy, Cardiac, Coronary Stent, Gallbladder, Orthopedic, Tonsillectomy, Vascular Surgery Respiratory: Yes Pneumonia Currently Using CPAP: No Currently Using BIPAP: No Cardiac: Yes (HEART STENT X1 IN 2014, STENTS X2 IN LEGS) Coronary Artery Disease, High Cholesterol, Hypertension, Peripheral Vascular Neurological: No Reproductive Disorders: No Female Reproductive Disorders: Denies Sexually Transmitted Disease: No HIV/AIDS: No Genitourinary: Yes UTI-Chronic Gastrointestinal: Yes Gastroesophageal Reflux, Chronic Constipation, Diverticulosis, Gall Bladder Disease Musculoskeletal: Yes (BACK PROBLEMS) Arthritis, Chronic Back Pain, Fractures Endocrine: No HEENT: Yes Cataract Loss of Vision: Bilateral Hearing Impairment: Hard of Hearing Cancer: No Psychosocial: No Integumentary: Yes (Shingles) Blood Disorders: No Family Medical History Arthritis 19 MOTHER, Onset:Unknown Diabetes mellitus 19 FATHER, Onset:Unknown Myocardial infarction 19 FATHER, Onset:Unknown 19 MOTHER, Onset:Unknown Physical Exam-Suspected Sepsis Physical Exam Vital Signs Vital Signs - First Documented 05/05/18 05/05/18 05/05/18 09:27 09:30 15:33 Temp 98.5 Pulse 109 Resp 20 B/P (MAP) 188/92 (124) Pulse Ox 95 O2 Delivery Room Air O2 Flow Rate 2.00 FiO2 50 Capillary Refill : Less Than 3 Seconds Blood Pressure Mean: 124 Height, Weight, BMI Height: 5'7.00" Weight: 160lbs. 0oz. 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 Norm as 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 Skin: normal color, warm/dry Focused Exam Lactate Level 05/05/18 10:15: Lactic Acid Level 1.23 Lactic Acid Level Procedures/Interventions Suture Size: 4-0 Progress/Results/Core Measures Suspected Sepsis Recent Fever Within 48 Hours: No Infection Criteria Present: Suspected New Infection New/Unexplained Altered Menta: No Sepsis Screen: No Definite Risk SIRS Temperature:98.5 Pulse: 109 Respiratory Rate: 20 Laboratory Tests 05/05/18 10:15: White Blood Count 9.3 05/06/18 04:45: White Blood Count 13.5H 05/07/18 05:30: White Blood Count 9.8 Blood Pressure 188 /92 Mean: 124 05/05/18 10:15: Lactic Acid Level 1.23 Laboratory Tests 05/05/18 10:15: Creatinine 1.02, INR Comment 1.0, Platelet Count 231, Total Bilirubin 0.7 05/06/18 04:45: Creatinine 1.15, Platelet Count 263, Total Bilirubin 0.6 05/07/18 05:30: Creatinine 1.22, Platelet Count 247, Total Bilirubin 0.6 Results/Orders Lab Results Laboratory Tests Test 05/05/18 10:15 05/05/18 11:15 05/05/18 13:45 05/05/18 14:34 Range/Units White Blood Count 9.3 4.3-11.0 10^3/uL Red Blood Count 4.51 4.35-5.85 10^6/uL Hemoglobin 13.5 11.5-16.0 G/DL Hematocrit 43 35-52 % Mean Corpuscular Volume 96 80-99 FL Mean Corpuscular Hemoglobin 30 25-34 PG Mean Corpuscular Hemoglobin Concent 31 L 32-36 G/DL Red Cell Distribution Width 13.5 10.0-14.5 % Platelet Count 231 130-400 10^3/uL Mean Platelet Volume 10.9 H 7.4-10.4 FL Neutrophils (%) (Auto) 84 H 42-75 % Lymphocytes (%) (Auto) 5 L 12-44 % Monocytes (%) (Auto) 9 0-12 % Eosinophils (%) (Auto) 2 0-10 % Basophils (%) (Auto) 1 0-10 % Neutrophils # (Auto) 7.8 1.8-7.8 X 10^3 Lymphocytes # (Auto) 0.5 L 1.0-4.0 X 10^3 Monocytes # (Auto) 0.9 0.0-1.0 X 10^3 Eosinophils # (Auto) 0.1 0.0-0.3 10^3/uL Basophils # (Auto) 0.1 0.0-0.1 10^3/uL Neutrophils % (Manual) 79 % Lymphocytes % (Manual) 10 % Monocytes % (Manual) 9 % Eosinophils % (Manual) 1 % Basophils % (Manual) 1 % Band Neutrophils 0 % Blood Morphology Comment NORMAL Prothrombin Time 13.2 12.2-14.7 SEC INR Comment 1.0 0.8-1.4 Activated Partial Thromboplast Time 27 24-35 SEC Sodium Level 137 135-145 MMOL/L Potassium Level 4.8 3.6-5.0 MMOL/L Chloride Level 106 98-107 MMOL/L Carbon Dioxide Level 20 L 21-32 MMOL/L Anion Gap 11 5-14 MMOL/L Blood Urea Nitrogen 24 H 7-18 MG/DL Creatinine 1.02 0.60-1.30 MG/DL Estimat Glomerular Filtration Rate 51 BUN/Creatinine Ratio 24 Glucose Level 102 70-105 MG/DL Lactic Acid Level 1.23 0.50-2.00 MMOL/L Calcium Level 9.2 8.5-10.1 MG/DL Corrected Calcium 9.1 8.5-10.1 MG/DL Total Bilirubin 0.7 0.1-1.0 MG/DL Aspartate Amino Transf (AST/SGOT) 21 5-34 U/L Alanine Aminotransferase (ALT/SGPT) 28 0-55 U/L Alkaline Phosphatase 97 40-136 U/L Troponin I 0.042 0.056 <0.028 NG/ML C-Reactive Protein High Sensitivity 1.52 H 0.00-0.50 MG/DL B-Type Natriuretic Peptide 967.9 H <100.0 PG/ML Total Protein 7.1 6.4-8.2 GM/DL Albumin 4.1 3.2-4.5 GM/DL Urine Color YELLOW Urine Clarity CLEAR Urine pH 5 5-9 Urine Specific [place] 1.015 L 1.016-1.022 Urine Protein 2+ H NEGATIVE Urine Glucose (UA) NEGATIVE NEGATIVE Urine Ketones NEGATIVE NEGATIVE Urine Nitrite NEGATIVE NEGATIVE Urine Bilirubin NEGATIVE NEGATIVE Urine Urobilinogen NORMAL NORMAL MG/DL Urine Leukocyte Esterase 2+ H NEGATIVE Urine RBC (Auto) 2+ H NEGATIVE Urine RBC 2-5 H /HPF Urine WBC 5-10 H /HPF Urine Squamous Epithelial Cells 0-2 /HPF Urine Crystals NONE /LPF Urine Bacteria NEGATIVE /HPF Urine Casts NONE /LPF Urine Mucus NEGATIVE /LPF Urine Culture Indicated CULTURE PENDING Blood Gas Puncture Site RIGHT RADIAL Blood Gas Patient Temperature 96.4 Arterial Blood pH 7.25 *L 7.37-7.43 Arterial Blood Partial Pressure CO2 49 H 35-45 MMHG Arterial Blood Partial Pressure O2 198 H 79-93 MMHG Arterial Blood HCO3 21 L 23-27 MMOL/L Arterial Blood Total CO2 22.9 21.0-31.0 MMOL/L Arterial Blood Oxygen Saturation 100 94-100 % Arterial Blood Base Excess -5.1 L -2.5-2.5 MMOL/L Phil Test POSITIVE Blood Gas Ventilator Setting NO Blood Gas Inspired Oxygen 50% Test 05/05/18 15:23 05/06/18 04:45 05/07/18 05:30 Range/Units D-Dimer 3.55 H 0.00-0.49 UG/ML White Blood Count 13.5 H 9.8 4.3-11.0 10^3/uL Red Blood Count 4.02 L 3.95 L 4.35-5.85 10^6/uL Hemoglobin 12.2 11.8 11.5-16.0 G/DL Hematocrit 38 38 35-52 % Mean Corpuscular Volume 95 97 80-99 FL Mean Corpuscular Hemoglobin 30 30 25-34 PG Mean Corpuscular Hemoglobin Concent 32 31 L 32-36 G/DL Red Cell Distribution Width 13.5 13.4 10.0-14.5 % Platelet Count 263 247 130-400 10^3/uL Mean Platelet Volume 10.9 H 11.3 H 7.4-10.4 FL Neutrophils (%) (Auto) 87 H 84 H 42-75 % Lymphocytes (%) (Auto) 4 L 5 L 12-44 % Monocytes (%) (Auto) 9 10 0-12 % Eosinophils (%) (Auto) 0 1 0-10 % Basophils (%) (Auto) 0 0 0-10 % Neutrophils # (Auto) 11.7 H 8.2 H 1.8-7.8 X 10^3 Lymphocytes # (Auto) 0.5 L 0.5 L 1.0-4.0 X 10^3 Monocytes # (Auto) 1.2 H 1.0 0.0-1.0 X 10^3 Eosinophils # (Auto) 0.1 0.1 0.0-0.3 10^3/uL Basophils # (Auto) 0.0 0.0 0.0-0.1 10^3/uL Sodium Level 140 138 135-145 MMOL/L Potassium Level 4.1 4.0 3.6-5.0 MMOL/L Chloride Level 104 105 98-107 MMOL/L Carbon Dioxide Level 21 22 21-32 MMOL/L Anion Gap 15 H 11 5-14 MMOL/L Blood Urea Nitrogen 27 H 32 H 7-18 MG/DL Creatinine 1.15 1.22 0.60-1.30 MG/DL Estimat Glomerular Filtration Rate 45 42 BUN/Creatinine Ratio 23 26 Glucose Level 117 H 94 70-105 MG/DL Calcium Level 9.0 8.8 8.5-10.1 MG/DL Corrected Calcium 9.2 9.1 8.5-10.1 MG/DL Total Bilirubin 0.6 0.6 0.1-1.0 MG/DL Aspartate Amino Transf (AST/SGOT) 19 16 5-34 U/L Alanine Aminotransferase (ALT/SGPT) 45 32 0-55 U/L Alkaline Phosphatase 94 81 40-136 U/L B-Type Natriuretic Peptide 1126.7 H 715.4 H <100.0 PG/ML Total Protein 6.3 L 6.0 L 6.4-8.2 GM/DL Albumin 3.8 3.6 3.2-4.5 GM/DL Micro Results Microbiology 05/05/18 Blood Culture - Preliminary, Resulted No growth 05/05/18 Blood Culture - Preliminary, Resulted No growth 05/05/18 Influenza Types A,B Antigen (NEEMA) - Final, Complete 05/05/18 Urine Culture - Final, Complete See Comments My Orders Orders - ANTONY MCCALLUM MD Cbc With Automated Diff (05/05/18:32) Comprehensive Metabolic Panel (05/05/18:32) Blood Culture (05/05/18:32) Sputum Culture (05/05/18:32) Urinalysis (05/05/18:32) Urine Culture (05/05/18:32) Protime With Inr (05/05/18:32) Partial Thromboplastin Time (05/05/18:32) Saline Lock/Iv-Start (05/05/18:32) Ekg Tracing (05/05/18:32) Vital Signs Adult Sepsis Patie Q15M (05/05/18:32) O2 (05/05/18:32) Remove Rings In Anticipation O (05/05/18:32) Lactic Acid Analyzer (05/05/18:32) Influenza A And B Antigens (05/05/18:32) Chest Pa/Lat (2 View) (05/05/18:32) BNP (05/05/18:32) Hs C Reactive Protein (05/05/18:32) Troponin I (05/05/18 09:32) Manual Differential (05/05/18 10:15) Saline Lock/Iv-Start (05/05/18:) Ns Iv 1000 Ml (Sodium Chloride 0.9%) (05/05/18 11:09) Ceftriaxone For Iv Use (Rocephin For I (05/05/18 11:15) Oseltamivir 75 Mg Capsule (Tamiflu 75 (05/05/18 11:15) Albuterol/Ipra Inhalation Soln (Duoneb I (05/05/18 12:45) Svn Small Volume Nebulizer (05/05/18 12:41) Medications Given in ED Vital Signs/I&O 05/06/18 05/06/18 05/06/18 05/06/18 20:00 21:00 21:08 23:09 Temp 98.2 97.3 Pulse 100 98 Resp 16 20 B/P (MAP) 138/69 (92) 149/65 (93) Pulse Ox 95 94 92 O2 Delivery Nasal Cannula Nasal Cannula Nasal Cannula Nasal Cannula O2 Flow Rate 2.00 1.00 1.00 2.00 05/07/18 05/07/18 05/07/18 05/07/18 01:00 02:05 04:00 06:48 Temp 98.1 Pulse 101 83 Resp 20 B/P (MAP) 107/53 (71) Pulse Ox 91 94 93 O2 Delivery Room Air Room Air Room Air Capillary Refill : Less Than 3 Seconds Blood Pressure Mean: 124 Progress Note #1: Time: 11:30 Progress Note Patient was found to have influenza B. There is also questionable basilar infiltrate. Rocephin was administered as a precaution. However, her CRP is low suggesting this is more viral in nature. 1 L of IV fluid and Tamiflu were given in the ER as well. I discussed disposition with the patient and her friend. We unanimously decided it was best for her to stay in the hospital at least for observation since she lives alone and is 87 years old. Progress Note #2: Time: 12:41 Progress Note Nurse was called to the room. Patient had been on the commode and removed her oxygen. She then became very short of breath. Oxygen saturation was noted to be 80 percent on room air. On repeat auscultation she is very tight and wheezy. A DuoNeb treatment will be administered. Oxygen saturation is 99 percent on 4 L by nasal cannula. ECG Initial ECG Impression Date: May 05, 2018 Initial ECG Impression Time: 10:06 Initial ECG Rate: 98 Initial ECG Rhythm: Normal Sinus Initial ECG Intervals: Normal Initial ECG Impression: Normal Comment Normal sinus rhythm with borderline tachycardia. No ST elevation or depression to suggest ischemia. No axis deviation. No abnormal intervals. Diagnostic Imaging Diagonstic Imaging: Xray Plain Films/CT/US/NM/MRI: chest Comments Chest x-ray viewed by me and report reviewed. Compared with prior. See report below: NAME: KYLEE VALDES MED REC#: [id number] PT STATUS: REG ER : 1930 PHYSICIAN: ANTONY MCCALLUM MD ADMIT DATE: 05/05/18/ER Draft Date of Exam:05/05/18 CHEST PA/LAT (2 VIEW) Indication: Cough and shortness of ai.r Time of exam: 11:09 AM Comparison is made with prior chest from 02/01/2018. The heart is enlarged but stable. Infiltrate in the right upper lobe on prior exam has cleared. There may be some minimal patchy infiltrate in the lung bases bilaterally. No significant effusion or pneumothorax is seen. There is calcified granuloma in the left base. Impression: Patchy bibasilar infiltrates. Previously noted right upper lobe infiltrate has cleared. Dictated on workstation # [id number] Dict: 05/05/18 1054 Trans: 05/05/18 1057 [facility] [id number] Interpreted by: LELA TAVARES MD Departure Communication (Admissions) Time/Spoke to Admitting Phy: 11:30 Dr. Parker Impression Primary Impression: Influenza B Additional Impressions: Hypoxia Acute dyspnea Bronchospasm Disposition: ADMITTED INPATIENT Condition: Improved Admissions Decision to Admit Reason: Admit from ER (General) Decision to Admit/Date: May 05, 2018 Time/Decision to Admit Time: 11:25 Departure-Patient Inst. Referrals: KAVITA PHILIP MD (PCP) Primary Care Physician ANTONY MCCALLUM MD May 05, 2018 11:36
--- OUTSIDE RECORDS SUMMARY | 2018-05-05 12:12 | XMS REPORT | Continuity of Care Document ---
Author Author [facility] Organization [facility] Address Unknown Phone Unavailable Allergies Active Description Code Type Severity Reaction Onset Reported/Identified Relationship to Patient Clinical Status Yes atenolol [id number] Drug Allergy Mild DOSEN'T WANT 03/29/2007 Yes NITROPATCH NITROPATCH Mild DOESN'T WANT 03/29/2007 Yes codeine [id number] Drug Allergy Mild NAUSEA, HEADACH 04/05/2007 Yes diltiazem [id number] Drug Allergy Mild DOESN'T WANT 10/08/2016 Yes indomethacin [id number] Drug Allergy Mild DOESN'T WANT 10/08/2016 Yes propranolol [id number] Drug Allergy Mild DOESN'T WANT 10/08/2016 Yes atenolol [id number] Drug Allergy Unknown N/A 10/08/2016 Yes codeine [id number] Drug Allergy Unknown NAUSEA 10/08/2016 Yes morphine [id number] Drug Allergy Unknown N/A 10/08/2016 Yes codeine [id number] Drug Allergy Mild NAUSEA 10/15/2016 Medications There is no data. Problems Date Dx Coded Attending Type Code Diagnosis Diagnosed By 03/24/1543 KAVITA PHILIP MD Ot M54.2 CERVICALGIA 03/24/1543 KAVITA PHILIP MD Ot M54.5 LOW BACK PAIN 03/24/1626 KAVITA PHILIP MD Ot R32 UNSPECIFIED URINARY INCONTINENCE 03/24/1699 KAVITA PHILIP MD Ot M54.2 CERVICALGIA 03/24/1699 KAVITA PHILIP MD Ot M54.5 LOW BACK PAIN 11/22/2011 Ot V54.11 11/22/2011 Ot V57.1 01/27/2012 Ot V54.11 01/27/2012 Ot V57.1 04/13/2012 Ot V54.11 04/13/2012 Ot V57.1 05/23/2013 ELVIRA BAINS MD Ot 455.0 INT HEMORRHOID W/O COMPL 05/23/2013 ELVIRA BAINS MD Ot 455.3 EXT HEMORRHOID W/O COMPL 05/23/2013 ELVIRA BAINS MD Ot 562.10 DIVERTICULOSIS COLON (W/O MENT OF HEMORR 09/07/2013 ANGELA COLEMAN, LIAM Syl Ot 709.2 SCAR FIBROSIS OF SKIN 08/17/2014 JAMES JAJA SANCHES Ot 414.00 CORON ATHEROSCLER NOS TYPE VESSEL, NATIV 08/17/2014 JAMES JAJA SANCHES Ot 793.19 OTHER NONSPECIFIC ABNORMAL FINDING OF TRICIA 08/17/2014 JAMES JAJA SANCHES Ot 805.02 FX C2 VERTEBRA-CLOSED 08/17/2014 HAWI JAJA SANCHES Ot 845.00 SPRAIN OF ANKLE NOS 08/17/2014 JAMES JAJA SANCHES Ot 920 CONTUSION FACE/SCALP/NCK 08/17/2014 JAMES DOJAJA Ot 923.00 CONTUSION SHOULDER REG 08/17/2014 JAMES JAJA SANCHES Ot 924.01 CONTUSION OF HIP 08/17/2014 JAMES JAJA SANCHES Ot 959.09 INJURY OF FACE AND NECK 08/17/2014 JAMES JAJA SANCHES Ot E000.8 OTHER EXTERNAL CAUSE STATUS 08/17/2014 JAMES JAJA SANCHES Ot E013.0 ACTIVITIES INVOLVING PERSONAL BATHING AN 08/17/2014 JAMES JAJA SANCHES Ot E849.0 ACCIDENT IN HOME 08/17/2014 JAMES JAJA SANCHES Ot E888.1 FALL STRIKING OBJECT NEC 08/17/2014 JAJA RAMIREZ DO Ot V58.66 LONG-TERM (CURRENT) USE OF ASPIRIN 08/17/2014 JAMES JAJA SANCHES Ot V58.69 OTH MED,LT,CURRENT USE 08/23/2014 TREVOR VILLANUEVA, SHANTANU Juan Ot 272.4 08/23/2014 TREVOR VILLANUEVA, SHANTANU Juan Ot 401.9 08/23/2014 TREVOR VILLANUEVA, SHANTANU Juan Ot 414.01 08/23/2014 SHANTANU MURRAY MD Ot 924.10 08/23/2014 SHANTANU MURRAY MD Ot E013.0 08/23/2014 SHANTANU MURRAY MD Ot E849.0 08/23/2014 TREVOR VILLANUEVA, SHANTANU Juan Ot E888.1 08/23/2014 SHANTANU MURRAY MD Ot V15.88 08/23/2014 TREVOR VILLANUEVA, SHANTANU E [...] TREVOR VILLANUEVA, SHANTANU E Ot 924.10 08/23/2014 RTEVOR VILLANUEVA, SHANTANU E Ot E013.0 08/23/2014 TREVOR [...] 09/03/2014 TREVOR VILLANUEVA, SHANTANU E Ot 272.4 HYPERLIPIDEMIA NEC/NOS 09/03/2014 TREVOR VILLANUEVA, SHANTANU E Ot 333.94 RESTLESS LEGS SYNDROME 09/03/2014 TREVOR VILLANUEVA, SHANTANU E Ot 401.9 HYPERTENSION NOS 09/03/2014 SHANTANU MURRAY MD Ot 414.01 CORONARY ATHEROSCLEROSIS OF [place] CORON 09/03/2014 SHANTANU MURRAY MD Ot 564.00 UNSPEC CONSTIPATION 09/03/2014 SHANTANU MURRAY MD Ot 715.90 OSTEOARTHROS NOS-UNSPEC 09/03/2014 SHANTANU MURRAY MD Ot V15.88 HISTORY OF FALL 09/03/2014 SHANTANU MURRAY MD Ot V45.82 PERCUTANEOUS TRANSLUM CORON ANGIOPLASTY 09/03/2014 SHANTANU MURRAY MD Ot V54.17 AFTERCARE HEALING TRAUMATIC FX VERTEBRAE 09/03/2014 SHANTANU MURRAY MD Ot V57.89 REHABILITATION PROC NEC 09/03/2014 SHANTANU MURRAY MD Ot V58.63 LONG-TERM(CURRENT)USE OF ANTIPLATELET/AN 09/03/2014 SHANTANU MURRAY MD Ot V58.66 LONG-TERM (CURRENT) USE OF ASPIRIN 09/03/2014 SHANTANU MURRAY MD Ot V58.89 OTHER SPECIFIED AFTERCARE 09/17/2014 Ot V76.12 09/17/2014 NARA VILLANUEVA, ELVIRA Ot V72.84 09/17/2014 ANGELA DPM, LIAM Q [...] CEDRICK VILLANUEVA, KAVITA Cornell Ot 401.9 10/29/2014 KAVITA PHILIP MD Ot 414.01 10/29/2014 KAVITA PHILIP MD Ot 682.6 10/29/2014 KAVITA PHILIP MD Ot 728.89 10/29/2014 KAVITA PHILIP MD Ot 906.3 10/29/2014 KAVITA PHILIP MD Ot E929.3 10/29/2014 KAVITA PHILIP MD Ot V45.82 10/29/2014 KAVITA PHILIP MD Ot 041.02 10/29/2014 KAVITA PHILIP MD Ot 041.85 10/29/2014 KAVITA PHILIP MD Ot 272.4 10/29/2014 KAVITA PHILIP MD Ot 401.9 10/29/2014 KAVITA PHILIP MD Ot 414.01 10/29/2014 KAVITA PHILIP MD Ot 682.6 10/29/2014 KAVITA PHILIP MD Ot 728.89 10/29/2014 KAVITA PHILIP MD Ot 906.3 10/29/2014 KAVITA PHILIP MD Ot E929.3 10/29/2014 KAVITA PHILIP MD Ot V45.82 10/31/2014 KAVITA PHILIP MD Ot 041.02 BACTERIAL INFECTION DUE TO STREPTOCOCCUS 10/31/2014 KAVITA PHILIP MD Ot 041.85 BACTERIAL INFEC DUE TO OTH GRAM-NEG ORGA 10/31/2014 KAVITA PHILIP MD Ot 272.4 HYPERLIPIDEMIA NEC/NOS 10/31/2014 KAVITA PHILIP MD Ot 401.9 HYPERTENSION NOS 10/31/2014 KAVITA PHILIP MD Ot 414.01 CORONARY ATHEROSCLEROSIS OF [place] CORON 10/31/2014 KAVITA PHILIP MD Ot 682.6 CELLULITIS OF LEG 10/31/2014 KAVITA PHILIP MD Ot 728.89 MUSCLE/LIGAMENT DIS NEC 10/31/2014 KAVITA PHILIP MD Ot 906.3 LATE EFFECT OF CONTUSION 10/31/2014 KAVITA PHILIP MD Ot E929.3 LATE EFF ACCIDENTAL FALL 10/31/2014 KAVITA PHILIP MD Ot V45.82 PERCUTANEOUS TRANSLUM CORON ANGIOPLASTY 11/05/2014 KAVITA PHILIP MD Ot 041.02 BACTERIAL INFECTION DUE TO STREPTOCOCCUS 11/05/2014 KAVITA PHILIP MD Ot 041.85 BACTERIAL INFEC DUE TO OTH GRAM-NEG ORGA 11/05/2014 KAVITA PHILIP MD Ot 272.4 HYPERLIPIDEMIA NEC/NOS 11/05/2014 KAVITA PHILIP MD Ot 401.9 HYPERTENSION NOS 11/05/2014 KAVITA PHILIP MD Ot 414.01 CORONARY ATHEROSCLEROSIS OF [place] CORON 11/05/2014 KAVITA PHILIP MD Ot 682.6 CELLULITIS OF LEG 11/05/2014 KAVITA PHILIP MD Ot 728.89 MUSCLE/LIGAMENT DIS NEC 11/05/2014 KAVITA PHILIP MD Ot 906.3 LATE EFFECT OF CONTUSION 11/05/2014 KAVITA PHILIP MD Ot E929.3 LATE EFF ACCIDENTAL FALL 11/05/2014 KAVITA PHILIP MD Ot V45.82 PERCUTANEOUS TRANSLUM CORON ANGIOPLASTY 11/12/2014 TREVOR VILLANUEVA, SHANTANU E Ot 272.4 11/12/2014 TREVOR VILLANUEVA, SHANTANU E Ot 401.9 11/12/2014 TREVOR VILLANUEVA, SHANTANU E Ot 414.01 11/12/2014 TREVOR VILLANUEVA, SHANTANU E Ot 530.81 11/12/2014 TREVOR VILLANUEVA, SHANTANU E Ot 564.00 11/12/2014 TREVOR VILLANUEVA SHANTANU E Ot 682.6 11/12/2014 TREVOR VILLANUEVA SHANTANU E Ot 724.5 11/12/2014 TREVOR VILLANUEVA SHANTANU E Ot V45.82 11/12/2014 TREVOR VILLANUEVA SHANTANU E Ot V54.17 11/12/2014 TREVOR VILLANUEVA, SHANTANU E Ot V57.89 11/13/2014 TREVOR VILLANUEVA, SHANTANU E Ot 272.4 HYPERLIPIDEMIA NEC/NOS 11/13/2014 TREVOR VILLANUEVA, SHANTANU E Ot 401.9 HYPERTENSION NOS 11/13/2014 TREVOR VILLANUEVA, SHANTANU E Ot 414.01 CORONARY ATHEROSCLEROSIS OF [place] CORON 11/13/2014 TREVOR VILLANUEVA, SHANTANU E Ot 530.81 ESOPHAGEAL REFLUX 11/13/2014 TREVOR VILLANUEVA, SHANTANU E Ot 564.00 UNSPEC CONSTIPATION 11/13/2014 TREVOR VILLANUEVA, SHANTANU E Ot 682.6 CELLULITIS OF LEG 11/13/2014 TREVOR VILLANUEVA, SHANTANU E Ot 724.5 BACKACHE NOS 11/13/2014 TREVOR VILLANUEVA, SHANTANU E Ot V45.82 PERCUTANEOUS TRANSLUM CORON ANGIOPLASTY 11/13/2014 TREVOR VILLANUEVA, SHANTANU E Ot V54.17 AFTERCARE HEALING TRAUMATIC FX VERTEBRAE 11/13/2014 TREVOR VILLANUEVA SHANTANU E Ot V57.89 REHABILITATION PROC NEC 11/13/2014 KAVITA PHILIP MD Ot 924.5 11/13/2014 KAVITA PHILIP MD Ot E000.8 11/13/2014 KAVITA PHILIP MD Ot E849.0 11/13/2014 KAVITA PHILIP MD Ot E888.9 12/16/2014 KAVITA PHILIP MD Ot 440.23 12/16/2014 KAVITA PHILIP MD Ot 457.1 12/16/2014 KAVITA PHILIP MD Ot 707.12 12/16/2014 KAVITA PHILIP MD Ot 998.83 12/23/2014 ROBBY REYES MD Ot 440.23 12/23/2014 ROBBY REYES MD Ot 707.12 12/26/2014 ROBBY REYES MD Ot 440.23 12/26/2014 ROBBY REYES MD Ot 707.12 01/21/2015 KAVITA PHILIP MD Ot 440.23 01/21/2015 KAVITA PHILIP MD Ot 457.1 01/21/2015 KAVITA PHILIP MD Ot 707.12 01/21/2015 KAVITA PHILIP MD Ot 998.83 01/22/2015 KAVITA PHILIP MD Ot 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 01/22/2015 KAVITA HPILIP MD Ot 457.1 OTHER LYMPHEDEMA 01/22/2015 KAVITA PHILIP MD Ot 707.12 ULCER OF CALF 01/22/2015 KAVITA PHILIP MD Ot 998.83 NON-HEALING SURG WOUND 01/28/2015 KAVITA PHILIP MD Ot 440.23 01/28/2015 KAVITA PHILIP MD Ot 457.1 01/28/2015 KAVITA PHILIP MD Ot 707.12 01/28/2015 KAVITA PHILIP MD Ot 998.83 02/11/2015 KAVITA PHILIP MD Ot I70.232 ATHSCL [place] ARTERIES OF RIGHT LEG W UL 02/11/2015 KAVITA PHILIP MD Ot I89.0 LYMPHEDEMA, NOT ELSEWHERE CLASSIFIED 02/11/2015 KAVITA PHILIP MD Ot T81.89XS OTH COMPLICATIONS OF PROCEDURES, NEC, SE 01/14/2016 KAVITA PHILIP MD Ot M54.2 CERVICALGIA 01/14/2016 KAVITA PHILIP MD Ot M54.5 LOW BACK PAIN 01/23/2016 KAVITA PHILIP MD Ot M54.2 CERVICALGIA 01/23/2016 KAVITA PHILIP MD, Ot M54.5 LOW BACK PAIN 01/26/2016 KAVITA PHILIP MD, Ot M54.2 CERVICALGIA 01/26/2016 CEDRICK VILLANUEVA, KAVITA Cornell Ot M54.5 LOW BACK PAIN 01/27/2016 CEDRICK VILLANUEVA, KAVITA Cornell Ot M54.2 CERVICALGIA 01/27/2016 CEDRICK VILLANUEVA, KAVITA Cornell Ot M54.5 LOW BACK PAIN 03/24/2016 CEDRICK VILLANUEVA, KAVITA Cornell Ot M54.2 CERVICALGIA 03/24/2016 CEDRICK VILLANUEVA, KAVITA Cornell Ot M54.5 LOW BACK PAIN 03/24/2016 CEDRICK VILLANUEVA, KAVITA Cornell Ot M54.2 CERVICALGIA 03/24/2016 CEDRICK VILLANUEVA, KAVITA Cornell Ot M54.5 LOW BACK PAIN 03/26/2016 CEDRICK VILLANUEVA, KAVITA Cornell Ot M54.2 CERVICALGIA 03/26/2016 KAVITA PHILIP MD Ot M54.5 LOW BACK PAIN 10/08/2016 OVIEDO DO COLLEEN Ot D72.829 ELEVATED WHITE BLOOD CELL COUNT, UNSPECI 10/08/2016 OVIEDO DO COLLEEN Ot I10 ESSENTIAL (PRIMARY) HYPERTENSION 10/08/2016 IVELISSE SANCHES COLLEEN Ot K21.9 GASTRO-ESOPHAGEAL REFLUX DISEASE WITHOUT 10/08/2016 IVELISSE DO COLLEEN Ot K59.09 OTHER CONSTIPATION 10/08/2016 OVIEDO DO, COLLEEN Ot S00.83XA CONTUSION OF OTHER PART OF HEAD, INITIAL 10/08/2016 IVELISSE DO COLLEEN Ot S79.912A UNSPECIFIED INJURY OF LEFT HIP, INITIAL 10/08/2016 IVELISSE DO COLLEEN Ot W19.XXXA UNSPECIFIED FALL, INITIAL ENCOUNTER 10/08/2016 IVELISSE SANCHES COLLEEN Ot Y92.[address] IN HOSPITAL PLACE 10/14/2016 TREVOR VILLANUEVA, SHANTANU Juan Ot E78.5 HYPERLIPIDEMIA, UNSPECIFIED 10/14/2016 TREVOR VILLANUEVA, SHANTANU E Ot I10 ESSENTIAL (PRIMARY) HYPERTENSION 10/14/2016 TREVOR VILLANUEVA, SHANTANU Juan Ot I25.10 ATHSCL HEART DISEASE OF [place] CORONARY 10/14/2016 TREVOR VILLANUEVA, SHANTANU Juan Ot I73.9 PERIPHERAL VASCULAR DISEASE, UNSPECIFIED 10/14/2016 SHANTANU MURRAY MD Ot K21.9 GASTRO-ESOPHAGEAL REFLUX DISEASE WITHOUT 10/14/2016 SHANTANU MURRAY MD Ot K59.09 OTHER CONSTIPATION 10/14/2016 SAHNTANU MURRAY MD Ot M16.11 UNILATERAL PRIMARY OSTEOARTHRITIS, RIGHT 10/14/2016 MURRAY MD, SHANTANU E Ot M54.5 LOW BACK PAIN 10/14/2016 MAO MURRAY MDIC E Ot S70.01XD CONTUSION OF RIGHT HIP, SUBSEQUENT ENCOU 10/14/2016 MAO MURRAY MDIC E Ot W19.XXXD UNSPECIFIED FALL, SUBSEQUENT ENCOUNTER 10/14/2016 SHANTANU MURRAY MD E Ot Z66 DO NOT RESUSCITATE 10/14/2016 SHANTANU MURRAY MD E Ot Z95.1 PRESENCE OF AORTOCORONARY BYPASS GRAFT 10/14/2016 SHANTANU MURRAY MD E Ot Z95.5 PRESENCE OF CORONARY ANGIOPLASTY IMPLANT 10/14/2016 SHANTANU MURRAY MD E Ot Z95.820 PERIPHERAL VASCULAR ANGIOPLASTY STATUS W 10/14/2016 SHANTANU MURRAY MD E Ot E78.5 HYPERLIPIDEMIA, UNSPECIFIED 10/14/2016 SHANTANU MURRAY MD E Ot I10 ESSENTIAL (PRIMARY) HYPERTENSION 10/14/2016 MAO MURRAY MDIC E Ot I25.10 ATHSCL HEART DISEASE OF [place] CORONARY 10/14/2016 SHANTANU MRURAY MD E Ot I73.9 PERIPHERAL VASCULAR DISEASE, UNSPECIFIED 10/14/2016 SHANTANU MURRAY MD E Ot K21.9 GASTRO-ESOPHAGEAL REFLUX DISEASE WITHOUT 10/14/2016 SHANTANU MURRAY MD E Ot K59.09 OTHER CONSTIPATION 10/14/2016 SHANTANU MURRAY MD E Ot M16.11 UNILATERAL PRIMARY OSTEOARTHRITIS, RIGHT 10/14/2016 SHANTANU MURRAY MD E Ot M54.5 LOW BACK PAIN 10/14/2016 SHANTANU MURRAY MD E Ot S70.01XD CONTUSION OF RIGHT HIP, SUBSEQUENT ENCOU 10/14/2016 SHANTANU MURRAY MD E Ot W19.XXXD UNSPECIFIED FALL, SUBSEQUENT ENCOUNTER 10/14/2016 SHANTANU MURRAY MD E Ot Z66 DO NOT RESUSCITATE 10/14/2016 SHANTANU MURRAY MD E Ot Z95.1 PRESENCE OF AORTOCORONARY BYPASS GRAFT 10/14/2016 SHANTANU MURRAY MD E Ot Z95.5 PRESENCE OF CORONARY ANGIOPLASTY IMPLANT 10/14/2016 SHANTANU MURRAY MD E Ot Z95.820 PERIPHERAL VASCULAR ANGIOPLASTY STATUS W 10/14/2016 SHANTANU MURRAY MD E Ot E78.5 HYPERLIPIDEMIA, UNSPECIFIED 10/14/2016 SHANTANU MURRAY MD E Ot I10 ESSENTIAL (PRIMARY) HYPERTENSION 10/14/2016 MAO MURRAY MDIC E Ot I25.10 ATHSCL HEART DISEASE OF [place] CORONARY 10/14/2016 TREVOR VILLANUEVA SHANTANU E Ot I73.9 PERIPHERAL VASCULAR DISEASE, UNSPECIFIED 10/14/2016 MAO MURRAY MDIC E Ot K21.9 GASTRO-ESOPHAGEAL REFLUX DISEASE WITHOUT 10/14/2016 TREVOR VILLANUEVA SHANTANU E Ot K59.09 OTHER CONSTIPATION 10/14/2016 MAO MURRAY MDIC E Ot M16.11 UNILATERAL PRIMARY OSTEOARTHRITIS, RIGHT 10/14/2016 MAO MURRAY MDIC E Ot M54.5 LOW BACK PAIN 10/14/2016 MAO MURRAY MDIC E Ot S70.01XD CONTUSION OF RIGHT HIP, SUBSEQUENT ENCOU 10/14/2016 TREVOR VILLANUEVA SHANTANU E Ot W19.XXXD UNSPECIFIED FALL, SUBSEQUENT ENCOUNTER 10/14/2016 TREVOR VILLANUEVA SHANTANU E Ot Z66 DO NOT RESUSCITATE 10/14/2016 MAO MURRAY MDIC E Ot Z95.1 PRESENCE OF AORTOCORONARY BYPASS GRAFT 10/14/2016 SHANTANU MURRAY MD E Ot Z95.5 PRESENCE OF CORONARY ANGIOPLASTY IMPLANT 10/14/2016 MAO MURRAY MDIC E Ot Z95.820 PERIPHERAL VASCULAR ANGIOPLASTY STATUS W 10/15/2016 MAO MURRAY MDIC E Ot E78.5 HYPERLIPIDEMIA, UNSPECIFIED 10/15/2016 TREVOR VILLANUEVA SHANTANU E Ot I10 ESSENTIAL (PRIMARY) HYPERTENSION 10/15/2016 TREVOR VILLANUEVA SHANTANU E Ot I25.10 ATHSCL HEART DISEASE OF [place] CORONARY 10/15/2016 MAO MURRAY MDIC E Ot I73.9 PERIPHERAL VASCULAR DISEASE, UNSPECIFIED 10/15/2016 MAO MURRAY MDIC E Ot K21.9 GASTRO-ESOPHAGEAL REFLUX DISEASE WITHOUT 10/15/2016 MAO MURRAY MDIC E Ot K59.09 OTHER CONSTIPATION 10/15/2016 TREVOR VILLANUEVA SHANTANU E Ot M16.11 UNILATERAL PRIMARY OSTEOARTHRITIS, RIGHT 10/15/2016 TREVOR VILLANUEVA SHANTANU E Ot M54.5 LOW BACK PAIN 10/15/2016 TREVOR VILLANUEVA SHANTANU E Ot S70.01XD CONTUSION OF RIGHT HIP, SUBSEQUENT ENCOU 10/15/2016 TREVOR VILLANUEVA SHANTANU E Ot W19.XXXD UNSPECIFIED FALL, SUBSEQUENT ENCOUNTER 10/15/2016 MAO MURRAY MDIC E Ot Z66 DO NOT RESUSCITATE 10/15/2016 MAO MURRAY MDIC E Ot Z95.1 PRESENCE OF AORTOCORONARY BYPASS GRAFT 10/15/2016 SHANTANU MURRAY MD E Ot Z95.5 PRESENCE OF CORONARY ANGIOPLASTY IMPLANT 10/15/2016 SHANTANU MURRAY MD E Ot Z95.820 PERIPHERAL VASCULAR ANGIOPLASTY STATUS W 10/21/2016 SHANTANU MURRAY MD Ot E78.5 HYPERLIPIDEMIA, UNSPECIFIED 10/21/2016 SHANTANU MURRAY MD E Ot I10 ESSENTIAL (PRIMARY) HYPERTENSION 10/21/2016 SHANTANU MURRAY MD E Ot I25.10 ATHSCL HEART DISEASE OF [place] CORONARY 10/21/2016 SHANTANU MURRAY MD E Ot I73.9 PERIPHERAL VASCULAR DISEASE, UNSPECIFIED 10/21/2016 SHANTANU MURRAY MD E Ot K21.9 GASTRO-ESOPHAGEAL REFLUX DISEASE WITHOUT 10/21/2016 SHANTANU MURRAY MD E Ot K59.09 OTHER CONSTIPATION 10/21/2016 SHANTANU MURRAY MD E Ot M16.11 UNILATERAL PRIMARY OSTEOARTHRITIS, RIGHT 10/21/2016 SHANTANU MURRAY MD E Ot M54.5 LOW BACK PAIN 10/21/2016 SHANTANU MURRAY MD E Ot S70.01XD CONTUSION OF RIGHT HIP, SUBSEQUENT ENCOU 10/21/2016 SHANTANU MURRAY MD E Ot W19.XXXD UNSPECIFIED FALL, SUBSEQUENT ENCOUNTER 10/21/2016 SHANTANU MURRAY MD E Ot Z66 DO NOT RESUSCITATE 10/21/2016 SHANTANU MURRAY MD E Ot Z95.1 PRESENCE OF AORTOCORONARY BYPASS GRAFT 10/21/2016 SHANTANU MURRAY MD E Ot Z95.5 PRESENCE OF CORONARY ANGIOPLASTY IMPLANT 10/21/2016 SHANTANU MURRAY MD E Ot Z95.820 PERIPHERAL VASCULAR ANGIOPLASTY STATUS W 10/21/2016 SHANTANU MURRAY MD E Ot E78.5 HYPERLIPIDEMIA, UNSPECIFIED 10/21/2016 SHANTANU MURRAY MD E Ot I10 ESSENTIAL (PRIMARY) HYPERTENSION 10/21/2016 SHANTANU MURRAY MD E Ot I25.10 ATHSCL HEART DISEASE OF [place] CORONARY 10/21/2016 SHANTANU MURRAY MD E Ot I73.9 PERIPHERAL VASCULAR DISEASE, UNSPECIFIED 10/21/2016 SHANTANU MURRAY MD E Ot K21.9 GASTRO-ESOPHAGEAL REFLUX DISEASE WITHOUT 10/21/2016 SHANTANU MURRAY MD E Ot K59.09 OTHER CONSTIPATION 10/21/2016 SHANTANU MURRAY MD E Ot M16.11 UNILATERAL PRIMARY OSTEOARTHRITIS, RIGHT 10/21/2016 SHANTANU MURRAY MD Ot M54.5 LOW BACK PAIN 10/21/2016 SHANTANU MURRAY MD Ot S70.01XD CONTUSION OF RIGHT HIP, SUBSEQUENT ENCOU 10/21/2016 SHANTANU MURRAY MD Ot W19.XXXD UNSPECIFIED FALL, SUBSEQUENT ENCOUNTER 10/21/2016 SHANTANU MURRAY MD Ot Z66 DO NOT RESUSCITATE 10/21/2016 SHANTANU MURRAY MD Ot Z95.1 PRESENCE OF AORTOCORONARY BYPASS GRAFT 10/21/2016 SHANTANU MURRAY MD Ot Z95.5 PRESENCE OF CORONARY ANGIOPLASTY IMPLANT 10/21/2016 SHANTANU MURRAY MD Ot Z95.820 PERIPHERAL VASCULAR ANGIOPLASTY STATUS W 01/14/2017 ARIEL GUERRERO TOBACCO BALER Ot M54.2 CERVICALGIA 01/14/2017 ARIEL GUERRERO TOBACCO BALER Ot M54.5 LOW BACK PAIN 01/14/2017 KAVITA PHILIP MD Ot M47.816 SPONDYLOSIS W/O MYELOPATHY OR RADICULOPA 01/14/2017 KAVITA PHILIP MD Ot S32.020A WEDGE COMPRESSION FRACTURE OF SECOND LUM 01/14/2017 KAVITA PHILIP MD Ot X58.XXXA EXPOSURE TO OTHER SPECIFIED FACTORS, INI 01/14/2017 KAVITA PHILIP MD Ot Y99.8 OTHER EXTERNAL CAUSE STATUS 01/19/2017 ARIEL GUERRERO TOBACCO BALER Ot M54.2 CERVICALGIA 01/19/2017 ARIEL GUERRERO TOBACCO BALER Ot M54.5 LOW BACK PAIN 01/19/2017 KAVITA PHILIP MD Ot M47.816 SPONDYLOSIS W/O MYELOPATHY OR RADICULOPA 01/19/2017 KAVITA PHILIP MD Ot S32.020A WEDGE COMPRESSION FRACTURE OF SECOND LUM 01/19/2017 KAVITA PHILIP MD Ot X58.XXXA EXPOSURE TO OTHER SPECIFIED FACTORS, INI 01/19/2017 KAVITA PHILIP MD Ot Y99.8 OTHER EXTERNAL CAUSE STATUS 01/22/2017 ARIEL GUERRERO TOBACCO BALER Ot M54.2 CERVICALGIA 01/22/2017 ARIEL GUERRERO TOBACCO BALER Ot M54.5 LOW BACK PAIN 01/31/2017 ARIEL GUERRERO TOBACCO BALER Ot M54.2 CERVICALGIA 01/31/2017 ARIEL GUERRERO TOBACCO BALER Ot M54.5 LOW BACK PAIN 03/18/2017 YOLANDA, ARIEL R TOBACCO BALER Ot M54.2 CERVICALGIA 03/18/2017 YOLANDA ARIEL R TOBACCO BALER Ot M54.5 LOW BACK PAIN 03/24/2017 YOLANDA ARIEL R TOBACCO BALER Ot M54.2 CERVICALGIA 03/24/2017 YOLANDA, ARIEL R TOBACCO BALER Ot M54.5 LOW BACK PAIN 04/28/2017 YOLANDA ARIEL R TOBACCO BALER Ot M54.2 CERVICALGIA 04/28/2017 YOLANDA ARIEL R TOBACCO BALER Ot M54.5 LOW BACK PAIN 02/01/2018 XENA VILLANUEVA, ANTONY León Ot E78.00 PURE HYPERCHOLESTEROLEMIA, UNSPECIFIED 02/01/2018 ANTONY MCCALLUM MD Ot I10 ESSENTIAL (PRIMARY) HYPERTENSION 02/01/2018 ANTONY MCCALLUM MD Ot I25.10 ATHSCL HEART DISEASE OF [place] CORONARY 02/01/2018 ANTONY MCCALLUM MD Ot I73.9 PERIPHERAL VASCULAR DISEASE, UNSPECIFIED 02/01/2018 ANTONY MCCALLUM MD Ot K21.9 GASTRO-ESOPHAGEAL REFLUX DISEASE WITHOUT 02/01/2018 ANTONY MCCALLUM MD Ot M25.551 PAIN IN RIGHT HIP 02/01/2018 ANTONY MCCALLUM MD Ot R40.2142 COMA SCALE, EYES OPEN, SPONTANEOUS, EMR 02/01/2018 ANTONY MCCALLUM MD Ot R40.2252 COMA SCALE, BEST VERBAL RESPONSE, ORIENT 02/01/2018 ANTONY MCCALLUM MD Ot R40.2362 COMA SCALE, BEST MOTOR RESPONSE, OBEYS C 02/01/2018 ANTONY MCCALLUM MD, Ot R42 DIZZINESS AND GIDDINESS 02/01/2018 ANTONY MCCALLUM MD Ot R91.8 OTHER NONSPECIFIC ABNORMAL FINDING OF TRICIA 02/01/2018 ANTONY MCCALLUM MD Ot S01.81XA LACERATION W/O FOREIGN BODY OF OTH PART 02/01/2018 ANTONY MCCALLUM MD Ot W19.XXXA UNSPECIFIED FALL, INITIAL ENCOUNTER 02/01/2018 ANTONY MCCALLUM MD, Ot Z23 ENCOUNTER FOR IMMUNIZATION 02/01/2018 ANTONY MCCALLUM MD Ot Z79.82 CORRECTION (CURRENT) USE OF ASPIRIN 02/01/2018 ANTONY MCCALLUM MD, Ot Z82.49 FAMILY HX OF ISCHEM HEART DIS AND OTH DI 02/01/2018 ANTONY MCCALLUM MD, Ot Z87.01 PERSONAL HISTORY OF PNEUMONIA (RECURRENT 02/01/2018 ANTONY MCCALLUM MD, Ot Z87.19 PERSONAL HISTORY OF OTHER DISEASES OF TH 02/01/2018 ANTONY MCCALLUM MD, Ot Z87.440 PERSONAL HISTORY OF URINARY (TRACT) INFE 02/01/2018 ANTONY MCCALLUM MD, Ot Z88.5 ALLERGY STATUS TO NARCOTIC AGENT STATUS 02/01/2018 ANTONY MCCLALUM MD, Ot Z88.8 ALLERGY STATUS TO OTH DRUG/MEDS/BIOL SUB 02/01/2018 ANTONY MCCALLUM MD, Ot Z90.49 ACQUIRED ABSENCE OF OTHER SPECIFIED PART 02/01/2018 ANTONY MCCALLUM MD, Ot Z90.89 ACQUIRED ABSENCE OF OTHER ORGANS 02/01/2018 ANTONY MCCALLUM MD, Ot Z95.5 PRESENCE OF CORONARY ANGIOPLASTY IMPLANT 02/01/2018 ANTOYN MCCALLUM MD, Ot Z98.62 PERIPHERAL VASCULAR ANGIOPLASTY STATUS 02/08/2018 PHOEBE PULIDO APRN Ot Z48.02 ENCOUNTER FOR REMOVAL OF SUTURES 02/10/2018 ANTONY MCCALLUM MD, Ot E78.00 PURE HYPERCHOLESTEROLEMIA, UNSPECIFIED 02/10/2018 ANTONY MCCALLUM MD, Ot I10 ESSENTIAL (PRIMARY) HYPERTENSION 02/10/2018 ANTONY MCCALLUM MD, Ot I25.10 ATHSCL HEART DISEASE OF [place] CORONARY 02/10/2018 ANTONY MCCALLUM MD, Ot I73.9 PERIPHERAL VASCULAR DISEASE, UNSPECIFIED 02/10/2018 ANTONY MCCALLUM MD, Ot K21.9 GASTRO-ESOPHAGEAL REFLUX DISEASE WITHOUT 02/10/2018 ANTONY MCCALLUM MD, Ot M25.551 PAIN IN RIGHT HIP 02/10/2018 ANTONY MCCALLUM MD, Ot R40.2142 COMA SCALE, EYES OPEN, SPONTANEOUS, EMR 02/10/2018 BRUEGGEMANN MD, ANTONY T Ot R40.2252 COMA SCALE, BEST VERBAL RESPONSE, ORIENT 02/10/2018 ANTONY MCCALLUM MD, Ot R40.2362 COMA SCALE, BEST MOTOR RESPONSE, OBEYS C 02/10/2018 ANTONY MCCALLUM MD, Ot R42 DIZZINESS AND GIDDINESS 02/10/2018 ANTONY MCCALLUM MD Ot R91.8 OTHER NONSPECIFIC ABNORMAL FINDING OF TRICIA 02/10/2018 ANTONY MCCALLUM MD, Ot S01.81XA LACERATION W/O FOREIGN BODY OF OTH PART 02/10/2018 ANTONY MCCALLUM MD, Ot W19.XXXA UNSPECIFIED FALL, INITIAL ENCOUNTER 02/10/2018 ANTONY MCCALLUM MD, Ot Z23 ENCOUNTER FOR IMMUNIZATION 02/10/2018 ANTONY MCCALLUM MD, Ot Z79.82 CORRECTION (CURRENT) USE OF ASPIRIN 02/10/2018 ANTONY MCCALLUM MD, Ot Z82.49 FAMILY HX OF ISCHEM HEART DIS AND OTH DI 02/10/2018 ANTONY MCCALLUM MD, Ot Z87.01 PERSONAL HISTORY OF PNEUMONIA (RECURRENT 02/10/2018 ANTONY MCCALLUM MD, Ot Z87.19 PERSONAL HISTORY OF OTHER DISEASES OF TH 02/10/2018 ANTONY MCCALLUM MD, Ot Z87.440 PERSONAL HISTORY OF URINARY (TRACT) INFE 02/10/2018 ANTONY MCCALLUM MD, Ot Z88.5 ALLERGY STATUS TO NARCOTIC AGENT STATUS 02/10/2018 ANTONY MCCALLUM MD, Ot Z88.8 ALLERGY STATUS TO OT DRUG/MEDS/BIOL SUB 02/10/2018 ANTONY MCCALLUM MD, Ot Z90.49 ACQUIRED ABSENCE OF OTHER SPECIFIED PART 02/10/2018 ANTONY MCCALLUM MD, Ot Z90.89 ACQUIRED ABSENCE OF OTHER ORGANS 02/10/2018 ANTONY MCCALLUM MD Ot Z95.5 PRESENCE OF CORONARY ANGIOPLASTY IMPLANT 02/10/2018 ANTONY MCCALLUM MD, Ot Z98.62 PERIPHERAL VASCULAR ANGIOPLASTY STATUS 02/13/2018 PHOEBE PULIDO APRN Ot Z48.02 ENCOUNTER FOR REMOVAL OF SUTURES 02/27/2018 NARA VILLANUEVA, ELVIRA Ot V72.84 EXAM PRE-OPERATIVE NOS 02/27/2018 ANGELA DPM, LIAM Q Ot 782.2 LOCAL SUPRFICIAL SWELLNG 02/27/2018 ANGELA DPM, LIAM Q Ot V72.84 EXAM PRE-OPERATIVE NOS 02/27/2018 ANGELA DPM, LIAM Q Ot V74.8 SCREEN-BACTERIAL DIS NEC 02/27/2018 KAVITA PHILIP MD Ot 924.5 CONTUSION LEG NOS 02/27/2018 KAVITA PHILIP MD Ot E000.8 OTHER EXTERNAL CAUSE STATUS 02/27/2018 KAVITA PHILIP MD Ot E849.0 ACCIDENT IN HOME 02/27/2018 KAVITA PHILIP MD, Ot E888.9 FALL NOS 02/27/2018 ROBBY REYES MD Ot 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 02/27/2018 ROBBY REYES MD Ot 707.12 ULCER OF CALF 02/27/2018 KAVITA PHILIP MD, Ot M47.816 SPONDYLOSIS W/O MYELOPATHY OR RADICULOPA 02/27/2018 KAVITA PHILIP MD, Ot S32.020A WEDGE COMPRESSION FRACTURE OF SECOND LUM 02/27/2018 KAVITA PHILIP MD, Ot X58.XXXA EXPOSURE TO OTHER SPECIFIED FACTORS, INI 02/27/2018 KAVITA PHILIP MD, Ot Y99.8 OTHER EXTERNAL CAUSE STATUS 03/30/2018 KAVITA PHILIP MD, Ot R32 UNSPECIFIED URINARY INCONTINENCE 04/21/2018 KAVITA PHILIP MD, Ot R32 UNSPECIFIED URINARY INCONTINENCE 04/28/2018 KAVITA PHILIP MD, Ot R32 UNSPECIFIED URINARY INCONTINENCE 04/28/2018 KAVITA PHILIP MD, Ot R32 UNSPECIFIED URINARY INCONTINENCE Procedures Code Description Performed By Performed On 83.02 MYOTOMY 10/28/2014 [id number] INTRODUCTION OF ANTI- INFLAMMATORY INTO J 10/15/2016 Results Test Result Range Complete blood count (CBC) with automated white blood cell (WBC) differential - 10/07/16 20:10 Blood leukocytes automated count (number/volume) 20.3 10*3/uL 4.3-11.0 Blood erythrocytes automated count (number/volume) 4.51 10*6/uL 4.35-5.85 Venous blood hemoglobin measurement (mass/volume) 13.6 g/dL 11.5-16.0 Blood hematocrit (volume fraction) 42 % 35-52 Automated erythrocyte mean corpuscular volume 93 [[email or web address]] 80-99 Automated erythrocyte mean corpuscular hemoglobin (mass per erythrocyte) 30 pg 25-34 Automated erythrocyte mean corpuscular hemoglobin concentration measurement ( mass/volume) 33 g/dL 32-36 Automated erythrocyte distribution width ratio 12.9 % 10.0-14.5 Automated blood platelet count (count/volume) 234 10*3/uL 130-400 Automated blood platelet mean volume measurement 10.6 [[facility]] 7.4-10.4 Automated blood neutrophils/100 leukocytes 86 % [...] NRG Manual blood basophils/100 leukocytes 0 % NR Blood erythrocyte morphology finding identification NORMAL [facility] Comprehensive metabolic panel - 10/07/16 20:10 Serum or plasma sodium measurement (moles/volume) 140 mmol/L 135-145 Serum or plasma potassium measurement (moles/volume) 4.3 mmol/L 3.6-5.0 Serum or plasma chloride measurement (moles/volume) 107 mmol/L 98-107 Carbon dioxide 20 mmol/L 21-32 Serum or plasma anion gap determination (moles/volume) 13 mmol/L 5-14 Serum or plasma urea nitrogen measurement (mass/volume) 26 mg/dL 7-18 Serum or plasma creatinine measurement (mass/volume) 0.80 mg/dL 0.60-1.30 Serum or plasma urea nitrogen/creatinine mass ratio 33 0 -20 Serum or plasma creatinine measurement with calculation [...] 06:13 Blood leukocytes automated count (number/volume) 11.6 10*3/uL 4.3-11.0 Blood erythrocytes automated count (number/volume) 4.24 10*6/uL 4.35-5.85 Venous blood hemoglobin measurement (mass/volume) 12.7 [...] Automated blood platelet mean volume measurement 11.3 [[facility]] 7.4-10.4 Automated blood neutrophils/100 leukocytes 74 % [...] Serum or plasma sodium measurement (moles/volume) 139 mmol/L 135-145 Serum or plasma potassium measurement (moles/volume) 4.2 mmol/L 3.6-5.0 Serum or plasma chloride measurement (moles/volume) 105 mmol/L 98-107 Carbon dioxide 22 mmol/L 21-32 Serum or plasma anion gap determination (moles/volume) 12 mmol/L 5-14 Serum or plasma urea nitrogen measurement (mass/volume) 22 mg/dL 7-18 Serum or plasma creatinine measurement (mass/volume) 0.73 mg/dL 0.60-1.30 Serum or plasma urea nitrogen/creatinine mass ratio 30 0 -20 Serum or plasma creatinine measurement with calculation [...] Urine pH measurement by test strip 6 5-9 Specific gravity of urine by test strip 1.020 1.016- 1.022 Urine protein assay by test strip, semi-quantitative [...] culture - 10/08/16 12:00 Bacterial urine culture [id number] NRG COLONY COUNT 10,000/ML - 100,000/ML NRG FTX;REPORTABLE SEE COMMENT NRG Complete blood count (CBC) with automated white blood cell (WBC) differential - 02/01/18 10:59 Blood leukocytes automated count (number/volume) 9.1 10*3/uL 4.3-11.0 Blood erythrocytes automated count (number/volume) 4.40 10*6/uL 4.35-5.85 Venous blood hemoglobin measurement (mass/volume) 13.3 g/dL 11.5-16.0 Blood hematocrit (volume fraction) 41 % 35-52 Automated erythrocyte mean corpuscular volume 92 [[facility]] 80-99 Automated erythrocyte mean corpuscular hemoglobin (mass per erythrocyte) 30 pg 25-34 Automated erythrocyte mean corpuscular hemoglobin concentration measurement ( mass/volume) 33 g/dL 32-36 Automated erythrocyte distribution width ratio 13.4 % 10.0-14.5 Automated blood platelet count (count/volume) 239 10*3/uL 130-400 Automated blood platelet mean volume measurement 10.6 [[facility]] 7.4-10.4 Automated blood neutrophils/100 leukocytes 85 % 42-75 Automated blood lymphocytes/100 leukocytes 6 % 12-44 Blood monocytes/100 leukocytes 7 % 0-12 Automated blood eosinophils/100 leukocytes 2 % 0-10 Automated blood basophils/100 leukocytes 1 % 0-10 Blood neutrophils automated count (number/volume) 7.7 10*3 1.8-7.8 Blood lymphocytes automated count (number/volume) 0.5 10*3 1.0-4.0 Blood monocytes automated count (number/volume) 0.7 10*3 0.0-1.0 Automated eosinophil count 0.2 10*3/uL 0.0-0.3 Automated blood basophil count (count/volume) 0.1 10*3/uL 0.0-0.1 Comprehensive metabolic panel - 02/01/18 10:59 Serum or plasma sodium measurement (moles/volume) 139 mmol/L 135-145 Serum or plasma potassium measurement (moles/volume) 4.5 mmol/L 3.6-5.0 Serum or plasma chloride measurement (moles/volume) 107 mmol/L 98-107 Carbon dioxide 21 mmol/L 21-32 Serum or plasma anion gap determination (moles/volume) 11 mmol/L 5-14 Serum or plasma urea nitrogen measurement (mass/volume) 27 mg/dL 7-18 Serum or plasma creatinine measurement (mass/volume) 1.04 mg/dL 0.60-1.30 Serum or plasma urea nitrogen/creatinine mass ratio 26 NRG Serum or plasma creatinine measurement with calculation of estimated glomerular filtration rate 50 NRG Serum or plasma glucose measurement (mass/volume) 110 mg/dL 70-105 Serum or plasma calcium measurement (mass/volume) 9.4 mg/dL 8.5-10.1 Serum or plasma total bilirubin measurement (mass/volume) 0.7 mg/dL 0.1-1.0 Serum or plasma alkaline phosphatase measurement (enzymatic activity/volume) 77 U/L 40-136 Serum or plasma aspartate aminotransferase measurement (enzymatic activity/ volume) 12 U/L 5-34 Serum or plasma alanine aminotransferase measurement (enzymatic activity/volume ) 19 U/L 0-55 Serum or plasma protein measurement (mass/volume) 6.6 g/dL 6.4-8.2 Serum or plasma albumin measurement (mass/volume) 4.1 g/dL 3.2-4.5 CALCIUM CORRECTED 9.3 mg/dL 8.5-10.1 Magnesium - 02/01/18 10:59 Magnesium 2.0 mg/dL 1.8-2.4 Blood manual differential performed detection - 02/01/18 10:59 Blood monocytes/100 leukocytes 3 % NRG Manual blood segmented neutrophils/100 leukocytes 88 % NRG Blood band neutrophils/100 leukocytes 1 % NRG Manual blood lymphocytes/100 leukocytes 6 % NRG Manual eosinophils/100 leukocytes in nose 1 % NRG Manual blood basophils/100 leukocytes 1 % NRG Blood erythrocyte morphology finding identification NORMAL NRG Serum or plasma troponin i.cardiac measurement (mass/volume) - 02/01/18 10:59 Serum or plasma troponin i.cardiac measurement (mass/volume) < ng/ mL <0.30 Complete urinalysis with reflex to culture - 02/01/18 11:37 Urine color determination YELLOW NRG Urine clarity determination CLEAR NRG Urine pH measurement by test strip 6 5-9 Specific gravity of urine by test strip 1.010 1.016- 1.022 Urine protein assay by test strip, semi-quantitative NEGATIVE NEGATIVE Urine glucose detection by automated test strip NEGATIVE NEGATIVE Erythrocytes detection in urine sediment by light microscopy NEGATIVE NEGATIVE Urine ketones detection by automated test strip 1+ NEGATIVE Urine nitrite detection by test strip NEGATIVE NEGATIVE Urine total bilirubin detection by test strip NEGATIVE NEGATIVE Urine urobilinogen measurement by automated test strip (mass/volume) NORMAL NORMAL Urine leukocyte esterase detection by dipstick 2+ NEGATIVE Automated urine sediment erythrocyte count by microscopy (number/high power field) NONE NRG Automated urine sediment leukocyte count by microscopy (number/high power field ) [HPF] NRG Bacteria detection in urine sediment by light microscopy TRACE NRG Squamous epithelial cells detection in urine sediment by light microscopy 2-5 NRG Crystals detection in urine sediment by light microscopy NONE NRG Casts detection in urine sediment by light microscopy NONE NRG Mucus detection in urine sediment by light microscopy NEGATIVE NRG Complete urinalysis with reflex to culture NO NRG Influenza virus A and B antigen detection - 05/05/18 09:30 CALL POSITIVES (F1 HELP) AMARI NRG FLU RESULT POSITIVE FOR INFLUENZA B ANTIGEN, NEG FOR A ANTIGEN, BY IA NRG Complete blood count (CBC) with automated white blood cell (WBC) differential - 05/05/18 10:15 Blood leukocytes automated count (number/volume) 9.3 10*3/uL 4.3-11.0 Blood erythrocytes automated count (number/volume) 4.51 10*6/uL 4.35-5.85 Venous blood hemoglobin measurement (mass/volume) 13.5 g/dL 11.5-16.0 Blood hematocrit (volume fraction) 43 % 35-52 Automated erythrocyte mean corpuscular volume 96 [[facility]] 80-99 Automated erythrocyte mean corpuscular hemoglobin (mass per erythrocyte) 30 pg 25-34 Automated erythrocyte mean corpuscular hemoglobin concentration measurement ( mass/volume) 31 g/dL 32-36 Automated erythrocyte distribution width ratio 13.5 % 10.0-14.5 Automated blood platelet count (count/volume) 231 10*3/uL 130-400 Automated blood platelet mean volume measurement 10.9 [[facility]] 7.4-10.4 Automated blood neutrophils/100 leukocytes 84 % 42-75 Automated blood lymphocytes/100 leukocytes 5 % 12-44 Blood monocytes/100 leukocytes 9 % 0-12 Automated blood eosinophils/100 leukocytes 2 % 0-10 Automated blood basophils/100 leukocytes 1 % 0-10 Blood neutrophils automated count (number/volume) 7.8 10*3 1.8-7.8 Blood lymphocytes automated count (number/volume) 0.5 10*3 1.0-4.0 Blood monocytes automated count (number/volume) 0.9 10*3 0.0-1.0 Automated eosinophil count 0.1 10*3/uL 0.0-0.3 Automated blood basophil count (count/volume) 0.1 10*3/uL 0.0-0.1 Blood lactic acid measurement (moles/volume) - 05/05/18 10:15 Blood lactic acid measurement (moles/volume) 1.23 mmol/L 0.50-2.00 PT panel in platelet poor plasma by coagulation assay - 05/05/18 10:15 Prothrombin time (PT) in platelet poor plasma by coagulation assay 13.2 s 12.2-14.7 INR in platelet poor plasma or blood by coagulation assay 1.0 0.8-1.4 Activated partial thromboplastin time (aPTT) in platelet poor plasma bycoagulation assay - 05/05/18 10:15 Activated partial thromboplastin time (aPTT) in platelet poor plasma bycoagulation assay 27 s 24-35 Comprehensive metabolic panel - 05/05/18 10:15 Serum or plasma sodium measurement (moles/volume) 137 mmol/L 135-145 Serum or plasma potassium measurement (moles/volume) 4.8 mmol/L 3.6-5.0 Serum or plasma chloride measurement (moles/volume) 106 mmol/L 98-107 Carbon dioxide 20 mmol/L 21-32 Serum or plasma anion gap determination (moles/volume) 11 mmol/L 5-14 Serum or plasma urea nitrogen measurement (mass/volume) 24 mg/dL 7-18 Serum or plasma creatinine measurement (mass/volume) 1.02 mg/dL 0.60-1.30 Serum or plasma urea nitrogen/creatinine mass ratio 24 NRG Serum or plasma creatinine measurement with calculation of estimated glomerular filtration rate 51 NRG Serum or plasma glucose measurement (mass/volume) 102 mg/dL 70-105 Serum or plasma calcium measurement (mass/volume) 9.2 mg/dL 8.5-10.1 Serum or plasma total bilirubin measurement (mass/volume) 0.7 mg/dL 0.1-1.0 Serum or plasma alkaline phosphatase measurement (enzymatic activity/volume) 97 U/L 40-136 Serum or plasma aspartate aminotransferase measurement (enzymatic activity/ volume) 21 U/L 5-34 Serum or plasma alanine aminotransferase measurement (enzymatic activity/volume ) 28 U/L 0-55 Serum or plasma protein measurement (mass/volume) 7.1 g/dL 6.4-8.2 Serum or plasma albumin measurement (mass/volume) 4.1 g/dL 3.2-4.5 CALCIUM CORRECTED 9.1 mg/dL 8.5-10.1 Serum or plasma troponin i.cardiac measurement (mass/volume) - 05/05/18 10:15 Serum or plasma troponin i.cardiac measurement (mass/volume) 0.042 ng/mL <0.028 Blood manual differential performed detection - 05/05/18 10:15 Blood monocytes/100 leukocytes 9 % NRG Manual blood segmented neutrophils/100 leukocytes 79 % NRG Blood band neutrophils/100 leukocytes 0 % NRG Manual blood lymphocytes/100 leukocytes 10 % NRG Manual eosinophils/100 leukocytes in nose 1 % NRG Manual blood basophils/100 leukocytes 1 % NRG Blood erythrocyte morphology finding identification NORMAL NRG Serum or plasma C reactive protein measurement (mass/volume) - 05/05/18 10:15 Serum or plasma C reactive protein measurement (mass/volume) 1.52 mg /dL 0.00-0.50 Serum or plasma lithium measurement (moles/volume) - 05/05/18 10:15 BNP level 967.9 pg/mL <100.0 Complete urinalysis with reflex to culture - 05/05/18 11:15 Urine color determination YELLOW NRG Urine clarity determination CLEAR NRG Urine pH measurement by test strip 5 5-9 Specific gravity of urine by test strip 1.015 1.016- 1.022 Urine protein assay by test strip, semi-quantitative 2+ NEGATIVE Urine glucose detection by automated test strip NEGATIVE NEGATIVE Erythrocytes detection in urine sediment by light microscopy 2+ NEGATIVE Urine ketones detection by automated test strip NEGATIVE NEGATIVE Urine nitrite detection by test strip NEGATIVE NEGATIVE Urine total bilirubin detection by test strip NEGATIVE NEGATIVE Urine urobilinogen measurement by automated test strip (mass/volume) NORMAL NORMAL Urine leukocyte esterase detection by dipstick 2+ NEGATIVE Automated urine sediment erythrocyte count by microscopy (number/high power field) [HPF] NRG Automated urine sediment leukocyte count by microscopy (number/high power field ) [HPF] NRG Bacteria detection in urine sediment by light microscopy NEGATIVE NRG Squamous epithelial cells detection in urine sediment by light microscopy 0-2 NRG Crystals detection in urine sediment by light microscopy NONE NRG Casts detection in urine sediment by light microscopy NONE NRG Mucus detection in urine sediment by light microscopy NEGATIVE NRG Complete urinalysis with reflex to culture CULTURE PENDING NRG Encounters ACCT No. Visit Date/Time Discharge Status Pt. Type Provider Facility Loc./Unit Complaint [id number] 04/28/2018 14:51:00 04/28/2018 16:27:00 DIS Outpatient CEDRICK VILLANUEVA, KAVITA Cornell [facility] REHAB URINARY INCONTINENCE [id number] 02/08/2018 11:14:00 02/08/2018 11:35:00 DIS Emergency PHOEBE PULIDO APRN [facility] ER SUTURE REMOVAL [id number] 02/01/2018 09:44:00 02/01/2018 13:00:00 DIS Emergency XENA VILLANUEVA, ANTONY León [facility] ER FALL [id number] 04/29/2017 00:20:00 04/29/2017 23:59:59 CLS Preadmit ARIEL GUERRERO APRN [facility] REHAB LBP; CERVICALGIA [id number] 03/11/2017 14:31:00 04/28/2017 00:01:00 DIS Outpatient ARIEL GUERRERO APRN [facility] REHAB LBP; CERVICALGIA [id number] 01/17/2017 15:44:00 01/22/2017 00:01:00 DIS Outpatient YOLANDA ARIELArtemio Wisdom APRN [facility] REHAB LBP; CERVICALGIA [id number] 12/22/2016 14:57:00 12/22/2016 23:59:59 CLS Outpatient KAVITA PHILIP MD [facility] RAD PAIN LOW BACK [id number] 10/08/2016 15:46:00 10/21/2016 13:50:00 DIS Inpatient SHANTANU MURRAY MD [facility] IRF DEBILITY [id number] 10/07/2016 18:17:00 10/08/2016 15:45:00 DIS Inpatient IVELISSE SANCHES COLLEEN [facility] 4TH FALL,SCULP HEMATOMA, SEVERE R HIP PAIN AND INABILIT [id number] 03/26/2016 14:29:00 03/26/2016 15:44:00 DIS Outpatient KAVITA PHILIP MD [facility] REHAB LBP;CERVICALGIA [id number] 01/21/2016 13:24:00 01/23/2016 17:00:00 DIS Outpatient KAVITA PHILIP MD [facility] REHAB LBP;CERVICALGIA [id number] 02/11/2015 13:19:00 02/11/2015 15:00:00 DIS Outpatient KAVITA PHILIP MD [facility] WOUNDCARE [id number] 01/21/2015 13:17:00 01/22/2015 00:01:00 DIS Outpatient KAVITA PHILIP MD [facility] WOUNDCARE [id number] 11/29/2014 09:10:00 11/29/2014 23:59:59 CLS Outpatient ROBBY REYES MD [facility] RAD LEG ULCER/ PAD [id number] 11/05/2014 13:21:00 11/13/2014 13:30:00 DIS Inpatient SHANTANU MURRAY MD [facility] IRF WEAKNESS [id number] 10/31/2014 08:18:00 11/05/2014 12:00:00 DIS Inpatient KAVITA PHILIP MD [facility] SURGICAL SWB--RT LEG ABSCESS, CELLULITIS [id number] 10/24/2014 18:39:00 10/31/2014 08:09:00 DIS Inpatient KAVITA PHILIP MD [facility] SURGICAL RT LEG ABSCESS, CELLULITIS [id number] 10/21/2014 14:32:00 10/21/2014 23:59:59 CLS Outpatient KAVITA PHILIP MD [facility] HH POSSIBLE WOUND INFECTION [id number] 08/22/2014 16:43:00 09/03/2014 13:45:00 DIS Inpatient SHANTANU MURRAY MD [facility] IRF DEBILITY [id number] 08/17/2014 19:21:00 08/17/2014 21:50:00 DIS Emergency JAMES DO, JAJA K [facility] ER FALL [id number] 09/07/2013 07:05:00 09/07/2013 10:55:00 DIS Outpatient AGNELA DPM, LIAM Q [facility] SOFT TISSUE LESION RIGHT FOOT [id number] 09/05/2013 12:25:00 09/05/2013 23:59:59 CLS Outpatient ANGELA DPM, LIAM Q [facility] PREOP SOFT TISSUE LESION RIGHT FOOT [id number] 05/23/2013 08:11:00 05/23/2013 12:45:00 DIS Outpatient ELVIRA BAINS MD [facility] CHANGE IN BOWEL HABIT; BLOOD IN STOOL [id number] 05/16/2013 07:22:00 05/16/2013 23:59:59 CLS Outpatient ELVIRA BAINS MD [facility] PREOP CHANGE IN BOWEL HABIT; BLOOD IN STOOL [id number] 05/05/2018 09:58:00 Document Registration [id number] 03/27/2012 11:57:00 Document Registration [id number] 01/21/2012 09:11:00 Document Registration [id number] 11/22/2011 09:52:00 Document Registration [id number] 05/04/2010 10:30:00 Document Registration [email or web address] 02/04/2015 13:33:42 ACT Document Registration
[2018-05-05] MEDS ORDERED: GABA-486 PO (12:17)
[2018-05-05] MEDS ORDERED: POLY17PO6 PO (12:17)
[2018-05-05] MEDS ORDERED: RT-ALBUTEROL/IPRATROPIUM 3 ML (DUONEB) VIAL INH ONE (12:45)
--- NOTE | 2018-05-05 12:55 | NUR ---
REPORT GIVEN TO ERIN CARDOZO ON 4TH FLOOR.
[2018-05-05] MEDS ORDERED: NS IV 1000 ML 1,000 ML IV SCH (13:30)
[2018-05-05] MEDS ORDERED: ACETAMINOPHEN 500 MG TAB (TYLENOL) PO PRN (13:30)
[2018-05-05] MEDS ORDERED: CATHETER FLUSH 10 ML SYR IV PRN (13:45)
--- NOTE | 2018-05-05 14:00 | NUR ---
REPORT FROM JULIANE KHAN.
[2018-05-05] MEDS ORDERED: TRAM50TA2 PO (14:06)
--- NOTE | 2018-05-05 14:10 | NUR ---
WENT OVER THE EXT MED HX WITH THE PATIENT, SHE VERIFIED HOW SHE TAKES HER MEDS TO THE BEST OF HER ABILITY AT THIS TIME DESPITE BEING VERY SHORT OF BREATH. SHE ALSO VERIFIED HER OTC MEDS.
[2018-05-05] MEDS ORDERED: FUROSEMIDE 40 MG/4 ML INJ (LASIX) IVP NR (14:15)
[2018-05-05] MEDS ORDERED: FUROSEMIDE 40 MG/4 ML INJ (LASIX) ONE (14:17)
[2018-05-05] MEDS ORDERED: RT-ALBUTEROL/IPRATROPIUM 3 ML (DUONEB) VIAL INH PRN (14:30)
[2018-05-05 14:49] LABS: ABG BASE EXCESS -5.1 MMOL/L (-2.5-2.5); ABG OXYGEN SATURATION 100 % (94-100); ABG PCO2 49 MMHG (35-45); ABG PO2 198 MMHG (79-93); ABG TCO2 22.9 MMOL/L (21.0-31.0)
[2018-05-05 14:52] LABS: ABG PH 7.25 (7.37-7.43)
[2018-05-05 14:53] LABS: ALLENS TEST POSITIVE; INSPIRED O2 50%; PATIENT TEMP 96.4; VENTILATOR NO
--- NOTE | 2018-05-05 15:17 | History & Physical-Hospitalist ---
History of Present Illness HPI/Chief Complaint This 87-year-old white female has had a cough for the last few days. She presents to her primary care physician's office with similar complaints. She was noted to be tachycardic and was brought to the emergency room by the nurse practitioner. Her influenza B was positive and it was being contemplated that should she be sent home when she got up and walked around and her oxygen saturation dropped to 88 percent. She was then admitted for observation. After being admitted to the fourth floor the patient's condition rapidly declined and she went in to respiratory failure and became unresponsive. Rapid response was called which showed a hypercapnic respiratory failure with respiratory acidosis. Patient was placed on BiPAP and is becoming more arousable. In addition because of her elevated BNP she was given 40 mg of Lasix with a Lam catheter placed. IV fluids are being held at this time. My interview the patient does respond to noxious stimulus but otherwise is largely unresponsive. She is on BiPAP. The patient is a DO NOT RESUSCITATE. Her son has been attempted to be notified. Close friend has come to visit. Source: old records Exam Limitations: clinical condition Date Seen 05/05/18 Time Seen by a Provider: 14:45 Attending Physician Cindy Parker MD PCP Kavita Philip MD Referring Physician Date of Admission May 05, 2018 at 12:05 Home Medications & Allergies Home Medications Reviewed patient Home Medication Reconciliation performed by pharmacy medication reconciliations zone maintenance technician and/or nursing. Patients Allergies have been reviewed. Allergies Allergies Coded Allergies atenolol (Verified Allergy, Unknown, 05/05/18) codeine (Verified Adverse Reaction, Mild, NAUSEA, 05/05/18) HEADACHE diltiazem (Verified Adverse Reaction, Mild, DOESN'T WANT, 05/05/18) indomethacin (Verified Adverse Reaction, Mild, DOESN'T WANT, 05/05/18) propranolol (Verified Adverse Reaction, Mild, DOESN'T WANT, 05/05/18) morphine (Verified Adverse Reaction, Unknown, 05/05/18) reports hearing things-reports she does not want to ever take. haS TOLERATED HYDROCODONE Uncoded Allergies NITROPATCH ( Adverse Reaction, Mild, DOESN'T WANT, 03/29/07) Past Xrtdhek-[id number]-Mopegv Hx Past Med/Social Hx: Reviewed Nursing Past Med/Soc Hx Patient Social History Marrital Status: Employed/Student: retired Alcohol Use: Occasionally Uses Recreational Drug Use: No Smoking Status: Never a Smoker 2nd Hand Smoke Exposure: No Recent Foreign Travel: No Contact w/other who traveled: No Recent Hopitalizations: No Recent Infectious Disease Expo: No Immunizations Up To Date Tetanus Booster (TDap): Unknown Pediatric: No Date of Pneumonia Vaccine: Nov 23, 2013 Date of Influenza Vaccine: Feb 06, 2013 Seasonal Allergies Seasonal Allergies: No Past Medical History Surgeries: Adenoidectomy, Appendectomy, Cardiac, Coronary Stent, Gallbladder, Orthopedic, Tonsillectomy, Vascular Surgery Currently Using CPAP: No Currently Using BIPAP: No Cardiac: Coronary Artery Disease, High Cholesterol, Hypertension, Peripheral Vascular Reproductive: No Sexually Transmitted Disease: No HIV/AIDS: No Female Reproductive Disorders: Denies Genitourinary: UTI-Chronic Gastrointestinal: Gastroesophageal Reflux, Chronic Constipation, Diverticulosis , Gall Bladder Disease Musculoskeletal: Arthritis, Chronic Back Pain, Fractures HEENT: Cataract Loss of Vision: Bilateral Hearing Impairment: Hard of Hearing History of Blood Disorders: No Family History Arthritis 19 MOTHER, Onset:Unknown Diabetes mellitus 19 FATHER, Onset:Unknown Myocardial infarction 19 FATHER, Onset:Unknown 19 MOTHER, Onset:Unknown Review of Systems Constitutional: see HPI Respiratory: cough, dyspnea on exertion Physical Exam Physical Exam Vital Signs Vital Signs - First Documented 05/05/18 05/05/18 05/05/18 09:27 09:30 15:33 Temp 98.5 Pulse 109 Resp 20 B/P (MAP) 188/92 (124) Pulse Ox 95 O2 Delivery Room Air O2 Flow Rate 2.00 FiO2 50 Capillary Refill : Less Than 3 Seconds Height, Weight, BMI Height: 5'7.00" Weight: 160lbs. 0oz. [id number]; 21.09 BMI Method:Stated General Appearance: Severe Distress HEENT: Other Neck: JVD, Limited Range of Motion Respiratory: Accessory Muscle Use, Crackles (Bilateral bases), Decreased Breath Sounds Cardiovascular: Tachycardia Gastrointestinal: Soft, Other (Possible fluid) Extremity: Pedal Edema, Slow Capillary Refill Neurologic/Psychiatric: Other (Unresponsive) Skin: Warm/Dry, Other (Cool legs and hands) Results Results/Procedures Labs Laboratory Tests 05/05/18 10:15 05/06/18 04:45 Patient resulted labs reviewed. Imaging: Reviewed Imaging Films, Reviewed Imaging Report Assessment/Plan Admission Diagnosis Severe sepsis secondary to influenza B Acute respiratory failure secondary to influenza B Pneumonia presumed to be secondary to influenza B Coronary artery disease with a history of stent placement Peripheral vascular disease Urinary tract infection Patient is started been started on Tamiflu has had Rocephin administered, will add Zithromax for community-acquired pneumonia. The patient is a DO NOT RESUSCITATE and her prognosis is extremely guarded at this time Admission Status: Inpatient Order (span 2 midnights) Reason for Inpatient Admission: Patient makes inpatient criteria based on the severity of her sepsis from influence of the and her respiratory failure Copy Copies To 1: KAVITA PHILIP MD, KATHLEEN M MD May 05, 2018 15:17
--- NOTE | 2018-05-05 15:50 | Diagnostic Imaging Report ---
INDICATION: Shortness of air. TIME OF EXAM: 3:22 p.m. COMPARISON: Correlation is made with prior study earlier the same day. FINDINGS: Heart size is stable. Patchy infiltrates in both bases persist. There are central congestive changes noted. No overt failure is seen. Granuloma in the left base is unchanged. There is no pneumothorax. IMPRESSION: Central congestive changes and patchy bibasilar infiltrates. Dictated by: Dictated on workstation # [id number]
--- NOTE | 2018-05-05 16:00 | NUR ---
STATUS UNCHANGED. ATTEMPTED TO REACH SON WITH NO SUCCESS.
--- NOTE | 2018-05-05 16:00 | NUR ---
NARRATIVE NOTE: 1415 UPON INITIAL ASSESSMENT AND VISUALIZATION OF PT, NOTED TO BE IN RESP DISTRESS. O2 CURRENTLY ON @ 4L N/C. VS 96.6 122 170/95 O2 88%. AUDIBLE WHEEZING AND GRUNTING. RT NOTIFIED. 1415 DR[address] HANCOCK NOTIFED OF STATUS. RAPID RESPONSE CALLED BY DARIANA KHAN NURSE STENCIL CUTTER MACHINE. 1424 LASIX 40MG IV X 1 STAT EKG DONE. PLACED ON BIPAP BY RT 15/6 50%. 1435 #16 TONEY INSERTED BY JULIANE KHAN. GAULDING NOTED TO PERINEAL AREA. 1440 ATTEMPTED TO REACH SON WITH NUMBER LISTED. NO RESPONSE. LORNE DECKER FRIEND NOTIFIED OF STATUS. 1440 96.4 115 22 146/79 98%. [address]. [address]. HANCOCK HERE. PT TO BE DNR. AGAIN ATTEMPTED TOP REACH SON WITH NO RESPONSE. REMAINS ON BIPAP 15/ 50%. POORLY RESPONSIVE.
[2018-05-05] MEDS: AZITHROMYCIN INJECTION 500 MG in NS (IVPB) 250 ML IV SCH (16:16)
--- NOTE | 2018-05-05 18:00 | NUR ---
AGAIN ATTEMPTED TO REACH DEMETRA HAIRSTON SONS. NO ANSWER.
--- NOTE | 2018-05-05 18:30 | NUR ---
MORE ALERT AND RESPONSIVE. BIPAP CONTINUES.
[2018-05-05] MEDS: RT-ALBUTEROL/IPRATROPIUM 3 ML (DUONEB) VIAL INH SCH ×2 (18:37→21:15)
--- NOTE | 2018-05-05 19:50 | NUR ---
THIS RN CALLED DR. HANCOCK IN REGARDS TO THE PT NOT HAVING A DIET LISTED, ORDERS RECEIVED FOR NPO WITH THE EXCEPTION OF SIPS OF WATER WITH MEDICATIONS. ORDERS READ BACK AND VERIFIED.
[2018-05-05] MEDS: OSELTAMIVIR 30 MG (TAMIFLU) CAPSULE PO SCH (20:30)
[2018-05-05] MEDS ORDERED: OSELTAMIVIR 75 MG (TAMIFLU) CAPSULE PO SCH (21:00)
[2018-05-06] VITALS (7 sets, daily range): BP systolic 130–171; BP diastolic 63–82
--- NOTE | 2018-05-06 00:58 | NUR ---
THIS RN CALLED DR. HANCOCK IN REGARDS TO THE PT'S PULSE RUNNING 108-110 BPM, NO NEW ORDERS RECEIVED.
[2018-05-06] MEDS: RT-ALBUTEROL/IPRATROPIUM 3 ML (DUONEB) VIAL INH SCH ×6 (01:11→21:08)
[2018-05-06 05:10] LABS: BASOPHILS % (AUTO) 0 % (0-10); EOSINOPHILS # (AUTO) 0.1 10^3/uL (0.0-0.3); EOSINOPHILS % (AUTO) 0 % (0-10); HEMATOCRIT 38 % (35-52); HEMOGLOBIN 12.2 G/DL (11.5-16.0); LYMPHOCYTES # (AUTO) 0.5 X 10^3 (1.0-4.0); LYMPHOCYTES % (AUTO) 4 % (12-44); MEAN CORPUSCULAR HEMOGLOBIN 30 PG (25-34); MEAN CORPUSCULAR HGB CONC 32 G/DL (32-36); MEAN CORPUSCULAR VOLUME 95 FL (80-99); MEAN PLATELET VOLUME 10.9 FL (7.4-10.4); MONOCYTES # (AUTO) 1.2 X 10^3 (0.0-1.0); MONOCYTES % (AUTO) 9 % (0-12); NEUTROPHILS # (AUTO) 11.7 X 10^3 (1.8-7.8); NEUTROPHILS % (AUTO) 87 % (42-75); PLATELET COUNT 263 10^3/uL (130-400); RED BLOOD COUNT 4.02 10^6/uL (4.35-5.85); RED CELL DISTRIBUTION WIDTH 13.5 % (10.0-14.5); WHITE BLOOD COUNT 13.5 10^3/uL (4.3-11.0)
[2018-05-06 05:31] LABS: ALBUMIN 3.8 GM/DL (3.2-4.5); BILIRUBIN,TOTAL 0.6 MG/DL (0.1-1.0); CREATININE SERUM 1.15 MG/DL (0.60-1.30); POTASSIUM 4.1 MMOL/L (3.6-5.0); TOTAL PROTEIN 6.3 GM/DL (6.4-8.2)
--- NOTE | 2018-05-06 07:42 | Diagnostic Imaging Report ---
INDICATION: Respiratory failure. EXAMINATION: Chest from 05/06/2018. COMPARISON: 05/05/2018. FINDINGS: Lungs demonstrate diffuse coarsened interstitial changes similar to previous. Some of this may be edema superimposed upon chronic change. Bibasilar infiltrates are noted and there are likely small bilateral pleural effusions. Heart and pulmonary vasculature stable. IMPRESSION: 1. Fairly stable appearance of the chest, persistent bilateral mild edema and bibasilar infiltrates/effusions also again noted. Dictated by: Dictated on workstation # [id number]
[2018-05-06] MEDS ORDERED: FUROSEMIDE 40 MG/4 ML INJ (LASIX) IVP ONE (08:15)
[2018-05-06] MEDS ORDERED: meTOproloL SUCCINATE 50 MG (TOPROL XL) TAB PO SCH (08:15)
[2018-05-06] MEDS ORDERED: OSELTAMIVIR 30 MG (TAMIFLU) CAPSULE ONE (09:00)
[2018-05-06] MEDS ORDERED: lisINopril 10 MG (PRINIVIL) TABLET PO SCH (09:00)
[2018-05-06] MEDS ORDERED: ASPIRIN E.C. 325 MG (ECOTRIN) TABLET PO SCH (09:00)
[2018-05-06] MEDS ORDERED: ASPIRIN E.C. 81 MG (ECOTRIN) TAB PO SCH (09:12)
[2018-05-06] MEDS: OSELTAMIVIR 30 MG (TAMIFLU) CAPSULE PO SCH ×2 (09:25→20:19)
[2018-05-06] MEDS: DOCUSATE SODIUM 100 MG (COLACE) CAP PO SCH (09:25)
[2018-05-06] MEDS: cefTRIAXone FOR IV USE 1,000 MG in NS (IVPB) 50 ML IV SCH (09:25)
[2018-05-06] MEDS: ONDANSETRON 4 MG/2 ML (SDV) Z0FRAN IV PRN ×2 (10:15→16:20)
--- NOTE | 2018-05-06 10:45 | Progress Note-Hospitalist ---
Subjective HPI/CC On Admission Date Seen by Provider: May 06, 2018 Time Seen by Provider: 09:45 This 87-year-old white female who has had a cough for the last few days. She presents to her primary care physician's office with similar complaints. She was noted to be tachycardic and was brought to the emergency room by the nurse practitioner. Her influenza B was positive and it was being contemplated that should she be sent home when she got up and walked around and her oxygen saturation dropped to 88 percent. She was then admitted for observation. After being admitted to the fourth floor the patient's condition rapidly declined and she went in to respiratory failure and became unresponsive. Rapid response was called which showed a hypercapnic respiratory failure with respiratory acidosis. Patient was placed on BiPAP and is becoming more arousable. In addition because of her elevated BNP she was given 40 mg of Lasix with a Lam catheter placed. IV fluids are being held at this time. My interview the patient does respond to noxious stimulus but otherwise is largely unresponsive. She is on BiPAP. The patient is a DO NOT RESUSCITATE. Her son has been attempted to be notified. Close friend has come to visit. Subjective/Events-last exam Patient is sitting up in her chair with her legs up, on 2 L by nasal cannula and is complaining of being hungry. Review of Systems Pulmonary: Cough Neurological: Weakness Focused Exam Possible Source: Pulmonary Lactate Level 05/05/18 10:15: Lactic Acid Level 1.23 Time of Focused Exam: 15:00 Respiratory: Decreased Breath Sounds, Respiratory Distress Cardiovascular: Tachycardia Capillary Refill: Less Than 3 Seconds Skin: normal color, cool Within 3hrs of presentation: Admin fluids, Admin ABX, Blood cultures prior to ABX's, Lactate level Objective Exam Vital Signs Vital Signs Date Time Temp Pulse Resp B/P (MAP) Pulse Ox O2 Delivery O2 Flow Rate FiO2 05/06/18 08:00 96.7 116 18 130/68 (88) 96 NIV Bilevel 50.00 05/05/18 15:33 50 Capillary Refill : Less Than 3 SecondsLess Than 3 Seconds General Appearance: No Apparent Distress, WD/WN HEENT: Normal ENT Inspection Neck: Limited Range of Motion Respiratory: Lungs Clear, Normal Breath Sounds, No Accessory Muscle Use, No Respiratory Distress, Decreased Breath Sounds Cardiovascular: No Gallop, No Murmur, Tachycardia Gastrointestinal: Normal Bowel Sounds, No Organomegaly, Non Tender, Soft Rectal: Deferred Back: Normal Inspection Extremity: Pedal Edema Neurologic/Psychiatric: Alert, Oriented x3, No Motor/Sensory Deficits, Normal Mood/Affect Skin: Normal Color, Warm/Dry Results/Procedures Lab Laboratory Tests 05/06/18 04:45 Patient resulted labs reviewed. Imaging: Reviewed Imaging Films, Reviewed Imaging Report Assessment/Plan Assessment and Plan Assess & Plan/Chief Complaint 1. Severe sepsis secondary to influenza B possible bacterial pneumonia improving on Rocephin and Zithromax and Tamiflu resolving 2. Acute respiratory failure improving 3. Urinary tract infection cultures pending 4. Congestive heart failure uncertain etiology we'll consult cardiology 5. Coronary artery disease no evidence of cardiac event 6. Peripheral vascular disease stable Diagnosis/Problems Diagnosis/Problems (1) Severe sepsis Status: Acute (2) Influenza B Status: Acute (3) Hypoxia Status: Acute (4) Respiratory failure, acute Status: Acute (5) Peripheral vascular disease Status: Chronic (6) Coronary arteriosclerosis Status: Chronic (7) Congestive heart failure Status: Acute Clinical Quality Measures DVT/VTE Risk/Contraindication: Risk Factor Score Per Nursin RFS Level Per Nursing on Admit: 4+=Very High LESLEE HANCOCK MD May 06, 2018 10:45
--- NOTE | 2018-05-06 11:19 | Physical Therapy Evaluation ---
PT Evaluation-General Medical Diagnosis Admission Date May 05, 2018 at 12:05 Medical Diagnosis: Influenza B, hypoxia Onset Date: May 05, 2018 Therapy Diagnosis Therapy Diagnosis: limited mobility Height/Weight Height (Feet): 5 Height (Inches): 7.00 Weight (Pounds): 160 Weight (Ounces): 0.0 Precautions Precautions/Isolations: Droplet Isolation, Fall Prevention Weight Bear Status Right Lower Extremity: Right Weight Bearing/Tolerated Left Lower Extremity: Left Weight Bearing/Tolerated Referral Reason for Referral: Evaluation/Treatment, Strengthening Medical History Pertinent Medical History: Arthritis, CAD, COPD, Diverticulitis, Fractures, GERD, HTN, IA, Neuropathy Current History Admit via doctor's office due to positive influenza B and subsequent episode of hypoxia. Pt was unresponsive for a short time on admit. Reviewed History: Yes Social History Home: Single Level Entry Into Home: Level Entry Prior/Core FIM Prior Level of Function Therapy Code Descriptions/Definitions Functional Hart Measure: 0=Not Assessed/NA 4=Minimal Assistance 1=Total Assistance 5=Supervision or Setup 2=Maximal Assistance 6=Modified Hart 3=Moderate Assistance 7=Complete Hart Therapy Quality Codes: 6 Independent with activity with or without an assistive device 5 Patient requires set up or clean up by helper. Patient completes activity by themselves 4 Supervision or touching assist (CGA). [place] provide cues , steadying assist 3 The helper provides less than half the effort to complete the activity 2 The helper provides more than half the effort to complete the activity 1 Dependent. The helper does all the effort to complete an activity 7 Patient refused to complete or attempt activity 9 The patient did not perform the activity before the current illness or injury 88 Not attempted due to Medical conditions or safety concerns Functional Abilities and Goals: Independent: Patient completed the activities by him/herself, with or without an assistive device, with no assistance from a helper. Needed Some Help: Patient needed partial assistance from another person to complete activities. Dependent: A helper completed the activities for the patient. Unknown: Not Applicable: Bed Mobility: 7 Transfers (B,C,W/C) (FIM): 7 Gait: 7 Indoor Mobility (Ambulation): Independent Stairs: Unknown PT Evaluation-Current Subjective No pain or complaints. Pt eager to get up and move. Pt/Family Goals Return home JOHN Objective Patient Orientation: Person, Place, Time, Situation Problem Solving: Good Comprehension: 7 Expression: 7 Social Interaction: 7 Problem Solvin Memory: 7 Attachments: Oxygen, Lam Catheter ROM/Strength ROM Upper Extremities WFL ROM Lower Extremities WFL Strength Upper Extremities WFL Strength Lower Extremities WFL Integumentary/Posture Bladder Incontinence: Lam Cath Neuromuscular (Tone, Coordination, Reflexes) Intact x3 Sensory Vision: Wears Glasses Hearing: Functional Sensation Right Upper Extremit: Intact Sensation Left Upper Extremity: Intact Sensation Right Lower Extremit: Intact Sensation Left Lower Extremity: Intact Transfers Therapy Code Descriptions/Definitions Functional Hart Measure: 0=Not Assessed/NA 4=Minimal Assistance 1=Total Assistance 5=Supervision or Setup 2=Maximal Assistance 6=Modified Hart 3=Moderate Assistance 7=Complete Hart Transfers (B, C, W/C) (FIM): 6 Rollin Supine to/from Sit: 6 Sit to/from Stand: 6 Gait Mode of Locomotion: Walk Anticipated Mode of Locomotion: Walk Gait (FIM): 2 Distance (FIM): 4=090-43 ft Distance: 60ft Gait Level of Assist: 2 Gait Persons Needed: 1 Gait Assistive Device: FWW Balance Sitting Static: Normal Sitting Dynamic: Normal Standing Static: Normal Standing Dynamic: Good Assessment/Needs Pt is primarily limited by dyspnea. Good stability during ambulation, with good safety during transfers. Rehab Potential: Good PT Short Term Goals Short Term Goals Time Frame: May 13, 2018 Transfers (B,C,W/C) (FIM): 7 Gait (FIM): 6 Distance (FIM): 3=150 ft Gait Distance Comment: 150ft Gait Assistive Device: FWW PT Plan Problem List Problem List: Functional Strength, Safety, Gait, Transfer Treatment/Plan Treatment Plan: Continue Plan of Care Treatment Plan: Functional Activity [place], Functional Strength, Gait, Safety, Therapeutic Exercise Treatment Duration: May 13, 2018 Frequency: 5 times per week Estimated Hrs Per Day: .25 hour per day Patient and/or Family Agrees t: Yes Time/GCodes Time In: 1050 Time Out: 1110 Total Billed Treatment Time: 20 Total Billed Treatment 1, daniel 20 HALEIGH HUBBARD PT May 06, 2018 11:19
[2018-05-06] MEDS: AZITHROMYCIN INJECTION 500 MG in NS (IVPB) 250 ML IV SCH (15:52)
--- NOTE | 2018-05-06 16:32 | NUR ---
PATIENT COMPLAINING OF CHEST PAIN. DR CHAU ON THE FLOOR. EKG ORDERED, VITALS TAKEN. DR CHAU WILL ENTER NEW ORDERS
--- NOTE | 2018-05-06 16:54 | Consultation-Cardiology ---
HPI-Cardiology Cardiology Consultation: Date of Consultation 05/06/18 Time Seen by a Provider: 16:10 Date of Admission Attending Physician Cindy Parker MD Admitting Physician Venkatesh Dobbins MD Consulting Physician ELAYNE CHAU MD, MA, FACP, FACC, [facility] [place], CCDS Physician requesting consult: Dr Parker HPI: Chief Complaint: Reason for consultation: Shortness of breath, elevated BNP HPI: 87 yo admitted with increasing shortness of breath and with influenza B (with probable influenza B pneumonia) who had deterioration of resp status shortly post admission and needed treatment with BiPAP. Currently shortness of breath better. Did have chest discomfort today: L and R parasternal, mod to sev, w/o any aggravating or relieving factors, subsiding in 5-10 min, associated with some nausea, w/o radiation. Does not recall such discomfort in the past. Does have chronic back and gen body pains. Denies leg swelling. Has had dry cough. Denies diarrhea or constipation Review of Systems-Cardiology Review of Systems Constitutional: malaise, tiredness; No weight loss, No weight gain Eyes: No vision change Ears/Nose/Throat: No ear discharge, No nasal drainage, No recent hearing loss Respiratory: As described under HPI Cardiovascular: As described under HPI Gastrointestinal: As described under HPI Genitourinary: No dysuria, No hematuria, No urine frequency changes : No Musculoskeletal: No As describe under HPI Skin: No rash, No ulcerations Psychiatric/Neurological: No seizure, No focal weakness, No syncope Hematologic: No bleeding abnormalities [id number]-[id number] Hx Patient Social History Marrital Status: Employed/Student: retired Alcohol Use: Denies Use Recreational Drug Use: No Smoking Status: Never a Smoker 2nd Hand Smoke Exposure: No Recent Foreign Travel: No Recent Infectious Disease Expo: No Hospitalization with Isolation: Denies Physical Abuse Screen: No Sexual Abuse: No Immunizations Up To Date Tetanus Booster (TDap): Unknown Date of Pneumonia Vaccine: Nov 23, 2013 Date of Influenza Vaccine: Jan 23, 2018 Past Medical History PMH As described under Assessment. Family Medical History Family History: Arthritis 19 MOTHER, Onset:Unknown Diabetes mellitus 19 FATHER, Onset:Unknown Myocardial infarction 19 FATHER, Onset:Unknown 19 MOTHER, Onset:Unknown Allergies and Home Medications Allergies Coded Allergies: atenolol (Verified Allergy, Unknown, 05/05/18) codeine (Verified Adverse Reaction, Mild, NAUSEA, 05/05/18) HEADACHE diltiazem (Verified Adverse Reaction, Mild, DOESN'T WANT, 05/05/18) indomethacin (Verified Adverse Reaction, Mild, DOESN'T WANT, 05/05/18) propranolol (Verified Adverse Reaction, Mild, DOESN'T WANT, 05/05/18) morphine (Verified Adverse Reaction, Unknown, 05/05/18) reports hearing things-reports she does not want to ever take. haS TOLERATED HYDROCODONE Uncoded Allergies: NITROPATCH (Adverse Reaction, Mild, DOESN'T WANT, 03/29/07) Home Medications Amitriptyline HCl 25 Mg Tablet, 25 MG PO HS, (Reported) Aspirin 325 Mg Tablet.dr, 325 MG PO 2X WEEKLY, (Reported) Cyanocobalamin (Vitamin B-12) 5,000 Mcg Tab.subl, 5,000 MCG SL MoWeFr, (Reported ) Docusate Sodium 100 Mg Capsule, 100 MG PO DAILY, (Reported) Gabapentin 100 Mg Capsule, 100 MG PO HS, (Reported) Glucosam/Chond/Hyalu/Cf Borate 1 Each Tablet, 1 TAB PO DAILY, (Reported) Lisinopril 10 Mg Tablet, 10 MG PO DAILY, (Reported) Lutein 40 Mg Capsule, 40 MG PO DAILY, (Reported) Metoprolol Succinate 50 Mg Tab.er.24h, 50 MG PO HS, (Reported) Multivitamin 1 Each Tablet, 1 TAB PO DAILY, (Reported) Polyethylene Glycol 3350 17 Gm Powd.pack, 17 GM PO DAILY PRN for CONSTIPATION- 2ND LINE, (Reported) Tramadol HCl 50 Mg Tablet, 50 MG PO Q8H PRN for PAIN-MODERATE, (Reported) Patient Home Medication List Home Medication List Reviewed: Yes Physical Exam-Cardiology Physical Exam Vital Signs/I&O 05/06/18 05/06/18 05/06/18 05/06/18 04:55 06:50 08:00 09:00 Temp 98.9 96.7 Pulse 106 116 Resp 20 18 B/P (MAP) 171/74 (106) 130/68 (88) Pulse Ox 98 98 96 96 O2 Delivery NIV Bilevel Nasal Cannula NIV Bilevel Nasal Cannula O2 Flow Rate 50.00 2.00 50.00 2.00 05/06/18 05/06/18 12:00 15:06 Temp 97.1 Pulse 97 Resp 20 B/P (MAP) 144/82 (102) Pulse Ox 97 96 O2 Delivery NIV Bilevel Nasal Cannula O2 Flow Rate 50.00 2.00 05/06/18 00:00 Intake Total 750 ml Output Total 1025 ml Balance -275 ml Capillary Refill : Less Than 3 SecondsLess Than 3 Seconds Constitutional: AAO x 3, well-developed, well-nourished HEENT: PERRL, EOMI, hearing is well preserved; No xanthelasmas are seen Neck: carotid pulses are 2 + bilaterally, with good upstrokes Respiratory: No accessory muscle use; other (Fair air entry, diminished at the bases) Cardiovascular: regular rate-rhythm, S1 and S2, systolic murmur (soft DARBY at card base) Gastrointestinal: No tender; soft; No guarding, No rebound; audible bowel sounds Extremities: No clubbing, No cyanosis, No significant edema Neurologic/Psychiatric: oriented x 3, grossly intact, power is 5/5 both on sides Skin: normal color, cool; No rash on exposed areas, No ulcerations on exposed areas Data Review Labs Laboratory Tests 05/06/18 04:45: White Blood Count 13.5H, Red Blood Count 4.02L, Hemoglobin 12.2, Hematocrit 38, Mean Corpuscular Volume 95, Mean Corpuscular Hemoglobin 30, Mean Corpuscular Hemoglobin Concent 32, Red Cell Distribution Width 13.5, Platelet Count 263, Mean Platelet Volume 10.9H, Neutrophils (%) (Auto) 87H, Lymphocytes (%) (Auto) 4L, Monocytes (%) (Auto) 9, Eosinophils (%) (Auto) 0, Basophils (%) (Auto) 0, Neutrophils # (Auto) 11.7H, Lymphocytes # (Auto) 0.5L, Monocytes # (Auto) 1.2H, Eosinophils # (Auto) 0.1, Basophils # (Auto) 0.0, Sodium Level 140, Potassium Level 4.1, Chloride Level 104, Carbon Dioxide Level 21, Anion Gap 15H, Blood Urea Nitrogen 27H, Creatinine 1.15, Estimat Glomerular Filtration Rate 45, BUN/ Creatinine Ratio 23, Glucose Level 117H, Calcium Level 9.0, Corrected Calcium 9.2, Total Bilirubin 0.6, Aspartate Amino Transf (AST/SGOT) 19, Alanine Aminotransferase (ALT/SGPT) 45, Alkaline Phosphatase 94, B-Type Natriuretic Peptide 1126.7H, Total Protein 6.3L, Albumin 3.8 Microbiology 05/05/18 Blood Culture - Preliminary, Resulted No growth 05/05/18 Influenza Types A,B Antigen (NEEMA) - Final, Complete 05/05/18 Urine Culture - Final, Complete See Comments Laboratory Tests 05/05/18 10:15 05/06/18 04:45 A/P-Cardiology Assessment/Admission Diagnosis Shortness of breath: multifactorial, as noted below Ac systolic CHF. LVEF 30-35% on echo of 05/06/18 Influenza B with probable pneumonia Minimal troponin elevation, probably due to ac resp failure at time of presentation on 05/05/18 Chest discomfort, etiology undetermined. Cannot exclude angina CAD. Report h/o cor stents by Dr Marrero in [place], [place] several years ago. Pt does not know details Hypertension Multiple drug intolerances Discussion and Recomendations * Increase bb * Add sacubitril/valsartan * Dual antiplatelet therapy * Statins * Diuretics for CHF: furosemide and spironolactone * Monitor labs * Her preference is to be managed conservatively, but will consider invasive options if absolutely necessary, she says Clinical Quality Measures DVT/VTE Risk/Contraindication: Risk Factor Score Per Nursin RFS Level Per Nursing on Admit: 4+=Very High ELAYNE CHAU MD FACP FAC CCDS May 06, 2018 16:54
[2018-05-06] MEDS ORDERED: meTOprolol SUCCINATE 100 MG (TOPROL XL) TAB PO ONE (17:15)
[2018-05-06] MEDS ORDERED: ASPIRIN 81 MG CHEW (CHILDREN'S ASA) PO ONE (17:15)
[2018-05-06] MEDS ORDERED: CLOPIDOGREL 300 MG (PLAVIX) TABLET PO ONE (17:15)
[2018-05-06] MEDS ORDERED: SPIRONOLACTONE 25 MG (ALDACTONE) TAB PO ONE (17:15)
--- NOTE | 2018-05-06 18:00 | NUR ---
PATIENT DOES NOT WANT TO TAKE THE MEDICATION DR CHAU ORDERED RIGHT NOW. SHE WILL LET ME KNOW WHEN SHE WANTS TO TAKE IT.
[2018-05-06] MEDS: ATORVASTATIN 40 MG (LIPITOR) TABLET PO SCH ×2 (18:15→20:19)
[2018-05-06] MEDS: GABAPENTIN 100 MG (NEURONTIN) CAP PO SCH (20:19)
[2018-05-07] MEDS: RT-ALBUTEROL/IPRATROPIUM 3 ML (DUONEB) VIAL INH SCH ×4 (02:05→18:58)
[2018-05-07 04:00] VITALS: BP 107/53
[2018-05-07 06:16] LABS: BASOPHILS % (AUTO) 0 % (0-10); EOSINOPHILS # (AUTO) 0.1 10^3/uL (0.0-0.3); EOSINOPHILS % (AUTO) 1 % (0-10); HEMATOCRIT 38 % (35-52); HEMOGLOBIN 11.8 G/DL (11.5-16.0); LYMPHOCYTES # (AUTO) 0.5 X 10^3 (1.0-4.0); LYMPHOCYTES % (AUTO) 5 % (12-44); MEAN CORPUSCULAR HEMOGLOBIN 30 PG (25-34); MEAN CORPUSCULAR HGB CONC 31 G/DL (32-36); MEAN CORPUSCULAR VOLUME 97 FL (80-99); MEAN PLATELET VOLUME 11.3 FL (7.4-10.4); MONOCYTES % (AUTO) 10 % (0-12); NEUTROPHILS # (AUTO) 8.2 X 10^3 (1.8-7.8); NEUTROPHILS % (AUTO) 84 % (42-75); PLATELET COUNT 247 10^3/uL (130-400); RED BLOOD COUNT 3.95 10^6/uL (4.35-5.85); RED CELL DISTRIBUTION WIDTH 13.4 % (10.0-14.5); WHITE BLOOD COUNT 9.8 10^3/uL (4.3-11.0)
[2018-05-07 06:41] LABS: ALBUMIN 3.6 GM/DL (3.2-4.5); BILIRUBIN,TOTAL 0.6 MG/DL (0.1-1.0); CALCIUM 8.8 MG/DL (8.5-10.1); CREATININE SERUM 1.22 MG/DL (0.60-1.30)
[2018-05-07 08:00] VITALS: BP 123/57
[2018-05-07] MEDS: ASPIRIN 81 MG CHEW (CHILDREN'S ASA) PO SCH (08:06)
[2018-05-07] MEDS: DOCUSATE SODIUM 100 MG (COLACE) CAP PO SCH (08:06)
[2018-05-07] MEDS: cefTRIAXone FOR IV USE 1,000 MG in NS (IVPB) 50 ML IV SCH (08:06)
[2018-05-07] MEDS: OSELTAMIVIR 30 MG (TAMIFLU) CAPSULE PO SCH ×2 (08:07→20:47)
[2018-05-07] MEDS: SPIRONOLACTONE 25 MG (ALDACTONE) TAB PO SCH (08:07)
[2018-05-07] MEDS: meTOprolol SUCCINATE 100 MG (TOPROL XL) TAB PO SCH (08:07)
[2018-05-07] MEDS: CLOPIDOGREL 75 MG (PLAVIX) TABLET PO SCH (08:07)
--- NOTE | 2018-05-07 11:52 | Progress Note-Cardiology ---
Cardiology SOAP Progress Note Subjective: Somewhat less short of breath No recurrence of cp since yesterday No palp or syncope States does not wish to undergo any invasive procedures. Any cardiac emergencies are to be managed conservatively only. No resuscitation either Objective: I&O/Vital Signs 05/07/18 05/07/18 05/07/18 05/07/18 01:00 02:05 04:00 06:48 Temp 98.1 Pulse 101 83 Resp 20 B/P (MAP) 107/53 (71) Pulse Ox 91 94 93 O2 Delivery Room Air Room Air Room Air 05/07/18 05/07/18 05/07/18 05/07/18 07:00 08:00 09:00 09:21 Temp 98.7 Pulse 90 87 83 Resp 16 B/P (MAP) 123/57 (79) Pulse Ox 94 93 O2 Delivery Nasal Cannula Room Air O2 Flow Rate 2.00 FiO2 21 05/07/18 00:00 Intake Total 1200 ml Output Total 1325 ml Balance -125 ml Weight (Pounds): 160 Weight (Ounces): 0.0 Weight (Calculated Kilograms): 72.932250 Constitutional: AAO x 3, well-developed, well-nourished Respiratory: No accessory muscle use; other (Fair air entry, diminished at the bases) Cardiovascular: regular rate-rhythm, S1 and S2, systolic murmur (soft DARBY at card base) Gastrointestional: No tender; soft; No guarding, No rebound; audible bowel sounds Extremities: No clubbing, No cyanosis, No significant edema Neurologic/Psychiatric: oriented x 3, grossly intact, power is 5/5 both on sides Skin: normal color, warm/dry Results/Procedures: Labs Laboratory Tests 05/07/18 05:30: White Blood Count 9.8, Red Blood Count 3.95L, Hemoglobin 11.8, Hematocrit 38, Mean Corpuscular Volume 97, Mean Corpuscular Hemoglobin 30, Mean Corpuscular Hemoglobin Concent 31L, Red Cell Distribution Width 13.4, Platelet Count 247, Mean Platelet Volume 11.3H, Neutrophils (%) (Auto) 84H, Lymphocytes (%) (Auto) 5L, Monocytes (%) (Auto) 10, Eosinophils (%) (Auto) 1, Basophils (%) (Auto) 0, Neutrophils # (Auto) 8.2H, Lymphocytes # (Auto) 0.5L, Monocytes # (Auto) 1.0, Eosinophils # (Auto) 0.1, Basophils # (Auto) 0.0, Sodium Level 138, Potassium Level 4.0, Chloride Level 105, Carbon Dioxide Level 22, Anion Gap 11, Blood Urea Nitrogen 32H, Creatinine 1.22, Estimat Glomerular Filtration Rate 42, BUN/ Creatinine Ratio 26, Glucose Level 94, Calcium Level 8.8, Corrected Calcium 9.1 , Total Bilirubin 0.6, Aspartate Amino Transf (AST/SGOT) 16, Alanine Aminotransferase (ALT/SGPT) 32, Alkaline Phosphatase 81, B-Type Natriuretic Peptide 715.4H, Total Protein 6.0L, Albumin 3.6 Microbiology 05/05/18 Blood Culture - Preliminary, Resulted No growth 05/05/18 Influenza Types A,B Antigen (NEEMA) - Final, Complete 05/05/18 Urine Culture - Final, Complete See Comments Laboratory Tests 05/06/18 04:45 05/07/18 05:30 A/P: Assessment: Shortness of breath: multifactorial, as noted below Ac systolic CHF. LVEF 30-35% on echo of 05/06/18 Influenza B with probable pneumonia Minimal troponin elevation, probably due to ac resp failure at time of presentation on 05/05/18 Chest discomfort, etiology undetermined. Cannot exclude angina CAD. Report h/o cor stents by Dr Marrero in [place], [place] several years ago. Pt does not know details Hypertension Multiple drug intolerances Plan: * Continue bb and sacubitril/valsartan * Dual antiplatelet therapy * Statins * Diuretics for CHF: furosemide and spironolactone * Monitor labs * She wants Lam out * I had a long conversation with her. She does not wish to have any invasive cardiac procedures (even if she has a cardiac emergency) and also wishes not to have any resuscitation ELANYE CHAU MD FACP FAC CCDS May 07, 2018 11:52
[2018-05-07 12:00] VITALS: BP 106/53
--- NOTE | 2018-05-07 13:58 | Progress Note-Hospitalist ---
Subjective HPI/CC On Admission Date Seen by Provider: May 07, 2018 Time Seen by Provider: 11:15 This 87-year-old white female has had a cough for the last few days. She presents to her primary care physician's office with similar complaints. She was noted to be tachycardic and was brought to the emergency room by the nurse practitioner. Her influenza B was positive and it was being contemplated that should she be sent home when she got up and walked around and her oxygen saturation dropped to 88 percent. She was then admitted for observation. After being admitted to the fourth floor the patient's condition rapidly declined and she went in to respiratory failure and became unresponsive. Rapid response was called which showed a hypercapnic respiratory failure with respiratory acidosis. Patient was placed on BiPAP and is becoming more arousable. In addition because of her elevated BNP she was given 40 mg of Lasix with a Lam catheter placed. IV fluids are being held at this time. My interview the patient does respond to noxious stimulus but otherwise is largely unresponsive. She is on BiPAP. The patient is a DO NOT RESUSCITATE. Her son has been attempted to be notified. Close friend has come to visit. Subjective/Events-last exam Patient is sitting up and feeling much better. Yesterday afternoon she was more short of breath and had had some chest discomfort. Dr. Johnson saw her in consultation and echocardiogram shows her ejection fraction is about 35 percent. Review of Systems Pulmonary: Dyspnea, Cough Neurological: Weakness Focused Exam Lactate Level 05/05/18 10:15: Lactic Acid Level 1.23 Time of Focused Exam: 15:00 Objective Exam Vital Signs Vital Signs Date Time Temp Pulse Resp B/P (MAP) Pulse Ox O2 Delivery O2 Flow Rate FiO2 05/07/18 13:13 91 05/07/18 12:00 99.1 18 106/53 (70) 90 Room Air 05/07/18 09:21 21 05/07/18 08:00 2.00 Capillary Refill : Less Than 3 SecondsLess Than 3 Seconds General Appearance: Chronically ill HEENT: Normal ENT Inspection Neck: Non Tender, Limited Range of Motion Respiratory: No Accessory Muscle Use, No Respiratory Distress, Crackles, Decreased Breath Sounds Cardiovascular: Regular Rate, Rhythm, Systolic Murmur Gastrointestinal: Abnormal Bowel Sounds, Distended Rectal: Deferred Back: Normal Inspection Extremity: Normal Inspection, Normal Range of Motion, Non Tender Results/Procedures Lab Laboratory Tests 1/13/19 05:30 Patient resulted labs reviewed. Imaging: Reviewed Imaging Films, Reviewed Imaging Report Assessment/Plan Assessment and Plan Assess & Plan/Chief Complaint 1. Severe sepsis secondary to influenza B possible bacterial pneumonia improving on day number 3 Rocephin and Zithromax and Tamiflu resolving 2. Acute respiratory failure improving 3. Urinary tract infection cultures pending 4. Congestive heart failure secondary to systolic dysfunction with an ejection fraction of 35 percent, BNP is down to 715 5. Coronary artery disease no evidence of cardiac event 6. Peripheral vascular disease stable 7. Abdominal distention we'll check a KUB and upright Diagnosis/Problems Diagnosis/Problems (1) Severe sepsis Status: Acute (2) Influenza B Status: Acute (3) Hypoxia Status: Acute (4) Respiratory failure, acute Status: Acute (5) Peripheral vascular disease Status: Chronic (6) Coronary arteriosclerosis Status: Chronic (7) Congestive heart failure Status: Acute Qualifiers: Heart failure type: systolic Clinical Quality Measures DVT/VTE Risk/Contraindication: Risk Factor Score Per Nursin RFS Level Per Nursing on Admit: 4+=Very High LESLEE HANCOCK MD May 07, 2018 13:58
[2018-05-07] MEDS: AZITHROMYCIN INJECTION 500 MG in NS (IVPB) 250 ML IV SCH (15:30)
[2018-05-07 16:00] VITALS: BP 111/55
--- NOTE | 2018-05-07 19:15 | Diagnostic Imaging Report ---
EXAMINATION: 3 views of the abdomen INDICATION: Abdominal distention. FINDINGS: The colon is diffusely gas-filled without significant colonic dilation. There are no dilated small bowel loops evident. No significant stool evident within the colon. There are no unexpected abdominal calcifications. There are multiple prior surgical sutures projecting over the right aspect of the abdomen. The lung bases appear clear. There are advanced degenerative features within the spine. There also are advanced arthritic changes within the hips. IMPRESSION: 1. Diffuse gaseous distention of the colon suggests the possibility of an underlying ileus. There is no significant stool evident. There are no findings to suggest small bowel dilation. If continued symptomatology, followup with CT imaging could be considered. Dictated by: Dictated on workstation # [id number]
[2018-05-07 20:00] VITALS: BP 142/65
[2018-05-07] MEDS: ATORVASTATIN 40 MG (LIPITOR) TABLET PO SCH (20:40)
[2018-05-07] MEDS: SACUBITRIL/VALSARTAN 24/26 MG (ENTRESTO) TABLET PO SCH (20:41)
[2018-05-07] MEDS: GABAPENTIN 100 MG (NEURONTIN) CAP PO SCH (20:41)
[2018-05-07] MEDS: POLYETHYLENE GLYCOL 17 GM (MIRALAX) PACK PO SCH (20:41)
[2018-05-08 00:13] VITALS: BP 123/72
[2018-05-08 04:11] VITALS: BP 126/70
[2018-05-08 08:00] VITALS: BP 128/58
[2018-05-08] MEDS: RT-ALBUTEROL/IPRATROPIUM 3 ML (DUONEB) VIAL INH SCH ×3 (08:07→19:33)
[2018-05-08] MEDS: cefTRIAXone FOR IV USE 1,000 MG in NS (IVPB) 50 ML IV SCH (09:09)
[2018-05-08] MEDS: AZITHROMYCIN 250 MG TAB (ZITHROMAX) PO SCH (09:09)
[2018-05-08] MEDS: SPIRONOLACTONE 25 MG (ALDACTONE) TAB PO SCH (09:09)
[2018-05-08] MEDS: CLOPIDOGREL 75 MG (PLAVIX) TABLET PO SCH (09:09)
[2018-05-08] MEDS: DOCUSATE SODIUM 100 MG (COLACE) CAP PO SCH (09:10)
[2018-05-08] MEDS: meTOprolol SUCCINATE 100 MG (TOPROL XL) TAB PO SCH (09:10)
[2018-05-08] MEDS: ASPIRIN 81 MG CHEW (CHILDREN'S ASA) PO SCH (09:10)
[2018-05-08] MEDS: SACUBITRIL/VALSARTAN 24/26 MG (ENTRESTO) TABLET PO SCH ×2 (09:10→21:02)
[2018-05-08] MEDS: OSELTAMIVIR 30 MG (TAMIFLU) CAPSULE PO SCH ×2 (09:20→21:02)
--- NOTE | 2018-05-08 10:20 | Progress Note-Cardiology ---
Cardiology SOAP Progress Note Subjective: Sitting up in a chair at the bedside. States she feels better today. No c/o CP or palpitations. States her SOB is better. C/O abdominal distension and feeling "gassy". Objective: I&O/Vital Signs 05/08/18 05/08/18 05/08/18 05/08/18 04:11 07:00 08:00 08:07 Temp 97.7 99.2 Pulse 94 78 87 Resp 18 20 B/P (MAP) 126/70 (88) 128/58 (81) Pulse Ox 95 95 90 O2 Delivery Nasal Cannula Nasal Cannula Room Air O2 Flow Rate 2.00 2.00 05/08/18 05/08/18 05/08/18 09:00 12:00 13:00 Temp 99.1 Pulse 79 76 Resp 18 B/P (MAP) 123/56 (78) Pulse Ox 93 O2 Delivery Room Air Nasal Cannula O2 Flow Rate 2.00 05/08/18 00:00 Intake Total 830 ml Output Total 300 ml Balance 530 ml Weight (Pounds): 160 Weight (Ounces): 0.0 Weight (Calculated Kilograms): 72.704840 Constitutional: AAO x 3, well-developed, well-nourished Respiratory: No accessory muscle use; other (Fair air entry, diminished at the bases) Cardiovascular: regular rate-rhythm, S1 and S2, systolic murmur (soft DARBY at card base) Gastrointestional: No tender; soft; No guarding, No rebound; audible bowel sounds Extremities: No clubbing, No cyanosis, No significant edema Neurologic/Psychiatric: oriented x 3, grossly intact, power is 5/5 both on sides Skin: normal color, warm/dry Results/Procedures: Labs Microbiology 05/05/18 Blood Culture - Preliminary, Resulted No growth 05/05/18 Influenza Types A,B Antigen (NEEMA) - Final, Complete 05/05/18 Urine Culture - Final, Complete See Comments A/P: Assessment: Shortness of breath: multifactorial, as noted below Ac systolic CHF. LVEF 30-35% on echo of 05/06/18 Influenza B with probable pneumonia Minimal troponin elevation, probably due to ac resp failure at time of presentation on 05/05/18 Chest discomfort, etiology undetermined. Cannot exclude angina - currently not reporting any CP CAD. Report h/o cor stents by Dr Marrero in [place], [place] several years ago. Pt does not know details Hypertension Multiple drug intolerances Plan: * Continue bb and sacubitril/valsartan * Dual antiplatelet therapy * Statins * Diuretics for CHF: furosemide and spironolactone * Monitor labs * We have had a long conversation with her. She does not wish to have any invasive cardiac procedures (even if she has a cardiac emergency) and also wishes not to have any resuscitation Physician Assessment Physician Assessment Notes weakness, malaise and shortness of breath. No cp or palp or syncope Lungs: diminished air entry at the bases, prolonged exp phase Cor: reg Ext: no c/c/e A&R * As documented in our note above that I updated (italics) and as noted below * Monitor labs * Wishes to be managed conservatively only AMY LEIGH May 08, 2018 10:20 ELAYNE CHAU MD FACP [facility] May 08, 2018 15:54
[2018-05-08 12:00] VITALS: BP 123/56
--- NOTE | 2018-05-08 13:21 | Physical Therapy Daily Note ---
PT Daily Note-Current Subjective Pt was in bed and agreed to PT. Reports that she is trying to get rid of her cough. Pain Numeric Pain Scale: 0-No Pain Location: No Pain Reported Mental Status Patient Orientation: Person, Normal For Age Transfers Therapy Code Descriptions/Definitions Functional [place] Measure: 0=Not Assessed/NA 4=Minimal Assistance 1=Total Assistance 5=Supervision or Setup 2=Maximal Assistance 6=Modified [place] 3=Moderate Assistance 7=Complete [place] Therapy Quality Codes: 6 Independent with activity with or without an assistive device 5 Patient requires set up or clean up by helper. Patient completes activity by themselves 4 Supervision or touching assist (CGA). [place] provide cues , steadying assist 3 The helper provides less than half the effort to complete the activity 2 The helper provides more than half the effort to complete the activity 1 Dependent. The helper does all the effort to complete an activity 7 Patient refused to complete or attempt activity 9 The patient did not perform the activity before the current illness or injury 88 Not attempted due to Medical conditions or safety concerns Transfers (B, C, W/C) (FIM): 4 Scootin Supine to/from Sit: 5 Sit to/from Stand: 4 Bed to/from Chair: 5 Weight Bearing Right Lower Extremity: Right Weight Bearing/Tolerated Left Lower Extremity: Left Weight Bearing/Tolerated Gait Training Gait (FIM): 1 Distance (FIM): 1=up to 49 ft Distance: 40' Gait Level of Assist: 5 Gait Persons Needed: 1 Gait Assistive Device: FWW Assessment Current Status: Fair Progress Pt was able to transfer and perform bed mobility with SBA. Pt required CGA on EOB to FWW. Pt was able to amb 40' x 3 with FWW and SBA around room due to precautions. Pt is now in recliner with all needs met. PT Short Term Goals Short Term Goals Time Frame: May 13, 2018 Transfers (B,C,W/C) (FIM): 7 Gait (FIM): 6 Distance (FIM): 3=150 ft Gait Distance Comment: 150ft Gait Assistive Device: FWW PT Plan Problem List Problem List: Activity Tolerance, Functional Strength, Safety, Transfer Treatment/Plan Treatment Plan: Continue Plan of Care Treatment Plan: Functional Activity [place], Functional Strength, Gait, Safety, Therapeutic Exercise Treatment Duration: May 13, 2018 Frequency: 5 times per week Estimated Hrs Per Day: .25 hour per day Patient and/or Family Agrees t: Yes Time/GCodes Time In: 1303 Time Out: 1315 Total Billed Treatment Time: 12 Total Billed Treatment 1 visit FA 12 min BEBA ATKINS PT May 08, 2018 13:21
--- NOTE | 2018-05-08 14:16 | Progress Note-Hospitalist ---
Subjective HPI/CC On Admission Date Seen by Provider: May 08, 2018 Time Seen by Provider: 14:11 This 87-year-old white female has had a cough for the last few days. She presents to her primary care physician's office with similar complaints. She was noted to be tachycardic and was brought to the emergency room by the nurse practitioner. Her influenza B was positive and it was being contemplated that should she be sent home when she got up and walked around and her oxygen saturation dropped to 88 percent. She was then admitted for observation. After being admitted to the fourth floor the patient's condition rapidly declined and she went in to respiratory failure and became unresponsive. Rapid response was called which showed a hypercapnic respiratory failure with respiratory acidosis. Patient was placed on BiPAP and is becoming more arousable. In addition because of her elevated BNP she was given 40 mg of Lasix with a Lam catheter placed. IV fluids are being held at this time. My interview the patient does respond to noxious stimulus but otherwise is largely unresponsive. She is on BiPAP. The patient is a DO NOT RESUSCITATE. Her son has been attempted to be notified. Close friend has come to visit. Subjective/Events-last exam Pt reports doing well. She is feeling much better than over the weekend but still not feeling well. Focused Exam Time of Focused Exam: 15:00 Objective Exam Vital Signs Vital Signs Date Time Temp Pulse Resp B/P (MAP) Pulse Ox O2 Delivery O2 Flow Rate FiO2 05/08/18 13:00 76 05/08/18 12:00 99.1 18 123/56 (78) 93 Nasal Cannula 2.00 05/07/18 09:21 21 Capillary Refill : Less Than 3 SecondsLess Than 3 Seconds General Appearance: No Apparent Distress, WD/WN Respiratory: Lungs Clear, No Respiratory Distress Cardiovascular: Regular Rate, Rhythm, No Murmur Neurologic/Psychiatric: Alert, Oriented x3 Results/Procedures Lab Patient resulted labs reviewed. Imaging: Reviewed Imaging Films, Reviewed Imaging Report Assessment/Plan Assessment and Plan Assess & Plan/Chief Complaint 1. Severe sepsis (now resolved)secondary to influenza B possible bacterial pneumonia improving on day number 4 Rocephin, Zithromax, and Tamiflu 2. Acute respiratory failure: resolved- now on room air 3. Urinary consistent with contamination 4. Congestive heart failure secondary to systolic dysfunction with an ejection fraction of 35 percent; cardiology consulted, appreciate recs 5. Coronary artery disease no evidence of cardiac event 6. Peripheral vascular disease stable Diagnosis/Problems Diagnosis/Problems (1) Influenza B Status: Acute (2) Congestive heart failure Status: Acute Qualifiers: Heart failure type: systolic (3) Respiratory failure, acute Status: Acute Qualifiers: Respiratory failure complication: hypercapnia Qualified Codes: J96.02 - Acute respiratory failure with hypercapnia (4) Severe sepsis Status: Acute (5) Coronary arteriosclerosis Status: Chronic (6) Peripheral vascular disease Status: Chronic (7) Hypertension Status: Acute Clinical Quality Measures DVT/VTE Risk/Contraindication: Risk Factor Score Per Nursin RFS Level Per Nursing on Admit: 4+=Very High RIVAS ALBA MD May 08, 2018 14:16
[2018-05-08 16:00] VITALS: BP 118/57
--- NOTE | 2018-05-08 16:11 | NUR ---
Pastoral Care Visit.
[2018-05-08 20:00] VITALS: BP 130/61
[2018-05-08] MEDS: POLYETHYLENE GLYCOL 17 GM (MIRALAX) PACK PO SCH (21:01)
[2018-05-08] MEDS: GABAPENTIN 100 MG (NEURONTIN) CAP PO SCH (21:02)
[2018-05-08] MEDS: ATORVASTATIN 40 MG (LIPITOR) TABLET PO SCH (21:02)
[2018-05-09] VITALS: BP 139/97
[2018-05-09 04:00] VITALS: BP 134/87
[2018-05-09] MEDS: RT-ALBUTEROL/IPRATROPIUM 3 ML (DUONEB) VIAL INH SCH (07:00)
[2018-05-09 08:00] VITALS: BP 129/71
[2018-05-09] MEDS: cefTRIAXone FOR IV USE 1,000 MG in NS (IVPB) 50 ML IV SCH (08:47)
[2018-05-09] MEDS: meTOprolol SUCCINATE 100 MG (TOPROL XL) TAB PO SCH (08:48)
[2018-05-09] MEDS: CLOPIDOGREL 75 MG (PLAVIX) TABLET PO SCH (08:48)
[2018-05-09] MEDS: DOCUSATE SODIUM 100 MG (COLACE) CAP PO SCH (08:48)
[2018-05-09] MEDS: OSELTAMIVIR 30 MG (TAMIFLU) CAPSULE PO SCH (08:49)
[2018-05-09] MEDS: ASPIRIN 81 MG CHEW (CHILDREN'S ASA) PO SCH (08:49)
[2018-05-09] MEDS: AZITHROMYCIN 250 MG TAB (ZITHROMAX) PO SCH (08:49)
[2018-05-09] MEDS: SACUBITRIL/VALSARTAN 24/26 MG (ENTRESTO) TABLET PO SCH (08:49)
[2018-05-09] MEDS: SPIRONOLACTONE 25 MG (ALDACTONE) TAB PO SCH (08:49)
--- NOTE | 2018-05-09 10:58 | Progress Note-Cardiology ---
Cardiology SOAP Progress Note Subjective: Sitting up in a chair at the bedside. Wants to go home tomorrow. No c/o CP, palpitations or LE edema. No c/o syncope or near syncope. Feels breathing has improved. Objective: I&O/Vital Signs 05/09/18 05/09/18 05/09/18 05/09/18 04:00 08:00 09:00 09:20 Temp 98.3 97.4 98.3 Pulse 95 85 Resp 20 18 B/P (MAP) 134/87 (103) 129/71 (90) Pulse Ox 96 96 O2 Delivery Room Air Room Air Room Air 05/09/18 12:00 Temp 97.8 Pulse 80 Resp 18 B/P (MAP) 129/65 (86) Pulse Ox 93 O2 Delivery Room Air 05/09/18 00:00 Intake Total 1480 ml Output Total 800 ml Balance 680 ml Weight (Pounds): 160 Weight (Ounces): 0.0 Weight (Calculated Kilograms): 72.474465 Constitutional: AAO x 3, well-developed, well-nourished Respiratory: No accessory muscle use; other (Fair air entry, diminished at the bases) Cardiovascular: regular rate-rhythm, S1 and S2, systolic murmur (soft DARBY at card base) Gastrointestional: No tender; soft; No guarding, No rebound; audible bowel sounds Extremities: No clubbing, No cyanosis, No significant edema Neurologic/Psychiatric: oriented x 3, grossly intact, power is 5/5 both on sides Skin: normal color, warm/dry Results/Procedures: Labs Microbiology 05/05/18 Blood Culture - Preliminary, Resulted No growth 05/05/18 Influenza Types A,B Antigen (NEEMA) - Final, Complete 05/05/18 Urine Culture - Final, Complete See Comments A/P: Assessment: Shortness of breath: multifactorial, as noted below Ac systolic CHF. LVEF 30-35% on echo of 05/06/18 Influenza B with probable pneumonia Minimal troponin elevation, probably due to ac resp failure at time of presentation on 05/05/18 Chest discomfort, etiology undetermined. Cannot exclude angina - currently not reporting any CP CAD. Report h/o cor stents by Dr Marrero in [place], [place] several years ago. Pt does not know details Hypertension Multiple drug intolerances Plan: * Continue bb and sacubitril/valsartan * Dual antiplatelet therapy * Statins * Diuretics for CHF: furosemide and spironolactone * Monitor labs * We have had a long conversation with her. She does not wish to have any invasive cardiac procedures (even if she has a cardiac emergency) and also wishes not to have any resuscitation * Cardiac status clinically stable Physician Assessment Physician Assessment Feels well. Shortness of breath better. No recurrence of chest discomfort. Wishes to go home Cor: reg Lungs: fair bilat air entry, diminished at the bases Ext: no c/c/e A&R * As documented in our note above that I updated (italics) * Continue current regimen * We have advised early outpt Cardiology f/u. She states she will f/u with Dr Marrero in [place], [place] * I discussed his case with Dr Boothe on the phone today AMY LEIGH May 09, 2018 10:58 ELAYNE CHAU MD FACP [facility] May 09, 2018 13:48
[2018-05-09 12:00] VITALS: BP 129/65
[2018-05-09] MEDS ORDERED: SACU1TAB PO (12:17)
[2018-05-09] MEDS ORDERED: OSEL30CA PO (12:17)
[2018-05-09] MEDS ORDERED: SPIR25TA5 PO (12:17)
[2018-05-09] MEDS ORDERED: ASPI-999 PO (12:17)
[2018-05-09] MEDS ORDERED: METO-395 PO (12:17)
[2018-05-09] MEDS ORDERED: ATOR40TA PO (12:17)
[2018-05-09] MEDS ORDERED: CLOP75TA28 PO (12:17)
--- NOTE | 2018-05-09 12:24 | D/C HH Face to Face Order ---
D/C Face to Face Orders Instructions for Patient [facility], Patient Instructions/FollowUp: Please continue to take your medications as written. Please follow up with Dr Dobbins and with Dr Cortes to follow up this hospital stay. Physician to follow Patient: Dr Dobbins Discharge Diet for Home: Low Sodium Diet Patient Data-Allergies,Ht & Wt Patient Allergies: Coded Allergies: atenolol (Verified Allergy, Unknown, 05/05/18) codeine (Verified Adverse Reaction, Mild, NAUSEA, 05/05/18) HEADACHE diltiazem (Verified Adverse Reaction, Mild, DOESN'T WANT, 05/05/18) indomethacin (Verified Adverse Reaction, Mild, DOESN'T WANT, 05/05/18) propranolol (Verified Adverse Reaction, Mild, DOESN'T WANT, 05/05/18) morphine (Verified Adverse Reaction, Unknown, 05/05/18) reports hearing things-reports she does not want to ever take. haS TOLERATED HYDROCODONE Uncoded Allergies: NITROPATCH (Adverse Reaction, Mild, DOESN'T WANT, 03/29/07) Height (Feet): 5 Height (Inches): 7.00 Weight (Pounds): 160 Weight (Ounces): 0.0 Home Health Need/Face to Face Date of Face to Face: May 09, 2018 Clinical Findings: Generalized weakness and fatigue, Shortness of breath I have seen Pt [id number]: Yes Discharged To: Home Diagnosis/Conditions: Flu, pneumonia, heart failure Patient is Homebound due to: Muscle weakness, Shortness of breath/distress Homebound Status Due to the above stated illness, injury or surgical procedure (medical condition or diagnosis) and associated clinical findings, the patient is homebound because of his/her inability to leave home except with aid of a supportive device and/or person AND leaving the home requires a considerable and taxing effort or is medically contraindicated. Pt req the following assistanc: Aid of another person Home Health Nursing Orders Home Health Services Order: Nursing Services (med set up, weights, ), Anthropology Lecturer-Evaluate & Treat, Physical Therapy-Evaluate & Treat Home Health Infusion Therapy Line Start Date: May 07, 2018 Line Start Time: 1000 Line Type: [place] Site Location: Hand Therapy Orders Therapy Orders: OT (must have SN or PT order), Physical Therapy Therapy Specific Orders: Teach enviro modifications/safety, Gait training, Increase strength/endurance Certify Stmt I certify that this patient is under my care and that I, a nurse practitioner or a physician; a costumer assistant working with me, had a face to face encounter that - meets the physician face to face encounter requirements with this patient as dated. RIVAS ALBA MD May 09, 2018 12:23
--- NOTE | 2018-05-09 12:29 | NUR ---
CM/SS. [facility]: Referral completed with patient preferred agency, [facility]. All other psychosocial needs assessed/managed by Eri Ya LMSW.
--- NOTE | 2018-05-09 13:32 | Physical Therapy Daily Note ---
PT Daily Note-Current Subjective Pt reports she is supposed to be discharged home today, willing to work with PT Pain Numeric Pain Scale: 0-No Pain Appearance Pt sitting on BSC upon arrival, awake and alert and agreeable to work with PT At end of session, pt sitting up in recliner with call light, phone, and bedside table within reach. All needs met Mental Status Patient Orientation: Person, Place, Time, Eyes Open, Situation Transfers Therapy Code Descriptions/Definitions Functional [place] Measure: 0=Not Assessed/NA 4=Minimal Assistance 1=Total Assistance 5=Supervision or Setup 2=Maximal Assistance 6=Modified [place] 3=Moderate Assistance 7=Complete [place] Therapy Quality Codes: 6 Independent with activity with or without an assistive device 5 Patient requires set up or clean up by helper. Patient completes activity by themselves 4 Supervision or touching assist (CGA). [place] provide cues , steadying assist 3 The helper provides less than half the effort to complete the activity 2 The helper provides more than half the effort to complete the activity 1 Dependent. The helper does all the effort to complete an activity 7 Patient refused to complete or attempt activity 9 The patient did not perform the activity before the current illness or injury 88 Not attempted due to Medical conditions or safety concerns Transfers (B, C, W/C) (FIM): 6 Scootin Rollin Supine to/from Sit: 6 Sit to/from Stand: 6 Bed to/from Chair: 6 Pt demonstrating ability to safely perform all transfers without assist. Minimal difficulty noted with sit to stand but still able to complete without assist Weight Bearing Right Lower Extremity: Right Weight Bearing/Tolerated Left Lower Extremity: Left Weight Bearing/Tolerated Gait Training Gait (FIM): 5 Distance (FIM): 3=150 ft Distance: 200 (+) Gait Level of Assist: 5 Gait Persons Needed: 1 Gait Assistive Device: FWW pt able to demonstrate ability to safely walk around in room and around objects steadily and safely without LOB using FWW. Treatments safety transfer and gait training Assessment Current Status: Good Progress PT Short Term Goals Short Term Goals Time Frame: May 13, 2018 Transfers (B,C,W/C) (FIM): 7 Gait (FIM): 6 Distance (FIM): 3=150 ft Gait Distance Comment: 150ft Gait Assistive Device: FWW PT Plan Treatment/Plan Treatment Plan: Continue Plan of Care Treatment Plan: Functional Activity [place], Functional Strength, Gait, Safety, Therapeutic Exercise Treatment Duration: May 13, 2018 Frequency: 5 times per week Estimated Hrs Per Day: .25 hour per day Patient and/or Family Agrees t: Yes Safety Risks/Education Patient Education: Gait Training, Transfer Techniques, Safety Issues Teaching Recipient: Patient Teaching Methods: Demonstration, Discussion Response to Teaching: Verbalize Understanding, Return Demonstration Time/GCodes Time In: 1255 Time Out: 1326 Total Billed Treatment Time: 31 Total Billed Treatment 1 visit GT x16 min FA x15 min NIA DE LA ROSA POSTAL SUPERINTENDENT May 09, 2018 13:32
[2018-05-09] MEDS ORDERED: OSELTAMIVIR 30 MG (TAMIFLU) CAPSULE PO SCH ×2 (13:45→21:00)
--- NOTE | 2018-05-09 13:52 | Discharge Summary-Hospitalist ---
Diagnosis/Chief Complaint Date of Admission May 06, 2018 at 11:56 Date of Discharge Discharge Date: May 09, 2018 Admission Diagnosis Severe sepsis secondary to influenza B Acute respiratory failure secondary to influenza B Discharge Diagnosis (1) Influenza B Status: Acute (2) Congestive heart failure Status: Acute (3) Respiratory failure, acute Status: Acute (4) Severe sepsis Status: Acute (5) Coronary arteriosclerosis Status: Chronic (6) Peripheral vascular disease Status: Chronic (7) Hypertension Status: Acute Discharge Summary Procedures/Consulations Cardiology- Dr Cortes Discharge Physical Exam Allergies: Coded Allergies: atenolol (Verified Allergy, Unknown, 05/05/18) codeine (Verified Adverse Reaction, Mild, NAUSEA, 05/05/18) HEADACHE diltiazem (Verified Adverse Reaction, Mild, DOESN'T WANT, 05/05/18) indomethacin (Verified Adverse Reaction, Mild, DOESN'T WANT, 05/05/18) propranolol (Verified Adverse Reaction, Mild, DOESN'T WANT, 05/05/18) morphine (Verified Adverse Reaction, Unknown, 05/05/18) reports hearing things-reports she does not want to ever take. haS TOLERATED HYDROCODONE Uncoded Allergies: NITROPATCH (Adverse Reaction, Mild, DOESN'T WANT, 03/29/07) Vitals & I&Os Vital Signs Date Time Temp Pulse Resp B/P (MAP) Pulse Ox O2 Delivery O2 Flow Rate FiO2 05/09/18 12:00 97.8 80 18 129/65 (86) 93 Room Air 05/08/18 20:00 2.00 05/07/18 09:21 21 General Appearance: No Apparent Distress, WD/WN Respiratory: Lungs Clear, No Respiratory Distress Cardiovascular: Regular Rate, Rhythm, No Murmur Neurologic/Psychiatric: Alert, Oriented x3 Hospital Course Pt was admitted for influenza and shortly developed respiratory distress upon admission. She necessitated BiPAP and was started on abx to cover CAP as well. She responded well. Cardiology was consulted and she was found to have newly diagnosed CHF with Ef of 35%. She was started on heart failure medications per discharge list below. She declined any aggressive or invasive workup including cardiac cath per cardiology note. She improved quickly and was discharged home in stable condition. On day of discharge she was requesting DC home and home health care was arranged. I called and updated MONA Polanco at Dr Philip' s office of this hospital course. Labs (last 24 hrs) Microbiology 05/05/18 Blood Culture - Preliminary, Resulted No growth 05/05/18 Influenza Types A,B Antigen (NEEMA) - Final, Complete 05/05/18 Urine Culture - Final, Complete See Comments Patient resulted labs reviewed. Imaging: Reviewed Imaging Films, Reviewed Imaging Report Discussion & Recommendations Discharge Planning: >30 minutes discharge planning Discharge Home Medications: Active Scripts Active Tamiflu (Oseltamivir Phosphate) 30 Mg Capsule 30 Mg PO BID Spironolactone 25 Mg Tablet 25 Mg PO DAILY Entresto 24 mg-26 mg Tablet (Sacubitril/Valsartan) 1 Each Tablet 1 Tab PO BID Lipitor (Atorvastatin Calcium) 40 Mg Tablet 40 Mg PO HS Clopidogrel (Clopidogrel Bisulfate) 75 Mg Tablet 75 Mg PO DAILY Aspirin 81 Mg Tab.chew 81 Mg PO DAILY Metoprolol Succinate 100 Mg Tab.er.24h 100 Mg PO DAILY Reported Tramadol HCl 50 Mg Tablet 50 Mg PO Q8H PRN Gabapentin 100 Mg Capsule 100 Mg PO HS Miralax (Polyethylene Glycol 3350) 17 Gm Powd.pack 17 Gm PO DAILY PRN Docusate Sodium 100 Mg Capsule 100 Mg PO DAILY Move Free Joint Health Tablet (Glucosam/Chond/Hyalu/Cf Borate) 1 Each Tablet 1 Tab PO DAILY Multivitamins (Multivitamin) 1 Each Tablet 1 Tab PO DAILY Aspirin EC (Aspirin) 325 Mg Tablet.dr 325 Mg PO 2X WEEKLY Lutein 40 Mg Capsule 40 Mg PO DAILY Vitamin B-12 (Cyanocobalamin (Vitamin B-12)) 5,000 Mcg Tab.subl 5,000 Mcg SL MOWEFR Lisinopril 10 Mg Tablet 10 Mg PO DAILY Amitriptyline HCl 25 Mg Tablet 25 Mg PO HS Metoprolol Succinate 50 Mg Tab.er.24h 50 Mg PO HS Instructions to patient/family Please see electronic discharge instructions given to patient. Clinical Quality Measures AMI/AHF: Ejection Fraction %: 35 Ejection Fraction: <40 (MIKAEL/ARB Indicated) D/C Medications Addressed: Mikael inhibitors, Beta fadi, Diuretic DVT/VTE Risk/Contraindication: Risk Factor Score Per Nursin RFS Level Per Nursing on Admit: 4+=Very High Copy Copies To 1: KAVITA PHILIP MD Problem Qualifiers (1) Congestive heart failure: Heart failure type: systolic (2) Respiratory failure, acute: Respiratory failure complication: hypercapnia Qualified Codes: J96.02 - Acute respiratory failure with hypercapnia RIVAS ALBA MD May 09, 2018 13:52
[2018-05-09 15:10] VITALS: BP 129/65
== END 2018-05-09 15:10 | disposition home health service (06) | DRG 871 ==
LOC: EDUNIT# 09:26 → ER 09:27 → 4TH 12:05 → UNDOADMOB 12:05 → 4TH 13:35 → OBSVTOIN 05-06 11:56 → INTOOBSV 05-06 11:56 → UNDODISIN 05-09 15:10
PROVIDERS: ADMIT Internal Medicine; ATTEND Internal Medicine
DX: A41.89 Other specified sepsis (principal); R65.20 Severe sepsis without septic shock; J10.00 Influenza due to other identified influenza virus with unspecified type of pneumonia; J12.89 Other viral pneumonia; J96.02 Acute respiratory failure with hypercapnia; E87.2 Acidosis; N39.0 Urinary tract infection, site not specified; Z66 Do not resuscitate; I11.0 Hypertensive heart disease with heart failure; I50.21 Acute systolic (congestive) heart failure; I25.10 Atherosclerotic heart disease of native coronary artery without angina pectoris; I73.9 Peripheral vascular disease, unspecified; E78.00 Pure hypercholesterolemia, unspecified; K21.9 Gastro-esophageal reflux disease without esophagitis; R14.0 Abdominal distension (gaseous); Z95.5 Presence of coronary angioplasty implant and graft; Z95.820 Peripheral vascular angioplasty status with implants and grafts
CPT/HCPCS: 36415; 71045; 71046; 74019; 80053; 81000; 82805; 83605; 83880; 84484; 85007; 85025; 85027; 85379; 85610; 85730; 86141; 87040; 87088; 87804; 93005; 93306; 94640; 94760; G0378

== ENCOUNTER → 2018-10-10 | Outpatient (CLI) | payer MEDICARE ==
[~2018-10-10] MED LIST changes: -AMLO5TAB7 PO; +AMLO5TAB9 PO; +ASPI-999 PO; +ATOR40TA PO; +GABA-486 PO; +METO-395 PO; +OSEL30CA PO; +POLY17PO6 PO; +SACU1TAB PO; +SPIR25TA5 PO; +TRAM50TA2 PO
--- NOTE | 2018-10-10 12:25 | Diagnostic Imaging Report ---
INDICATION: Right shoulder pain. TIME OF EXAM: 11:19 AM FINDINGS: Severe glenohumeral joint degenerative changes are identified. There is some flattening of the articular surface of the humeral head. Sclerosis is seen at the articular surface as well as the glenoid. There appears to be an old fracture deformity of the humeral neck. No acute fracture is seen. There is no dislocation. Acromioclavicular alignment is normal. 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 No acute bony abnormality is detected. Dictated by: Dictated on workstation # [id number]
== END ==
LOC: RAD 11:06
PROVIDERS: ATTEND Physician Assistant
DX: M19.011 Primary osteoarthritis, right shoulder (principal); Z87.81 Personal history of (healed) traumatic fracture
CPT/HCPCS: 73030

== ENCOUNTER 2018-11-21 09:28 | Observation (INO) | payer MEDICARE ==
[~2018-11-21] VITALS: Ht 170.2 cm; Wt 65.8 kg
--- OUTSIDE RECORDS SUMMARY | 2018-11-21 09:37 | XMS REPORT | Continuity of Care Document ---
Author Organization Unknown Address Unknown Phone Unavailable Allergies Active Description Code Type Severity Reaction Onset Reported/Identified Relationship to Patient Clinical Status Yes atenolol [id number] Drug Allergy Mild DOSEN'T WANT 03/29/2007 Yes NITROPATCH NITROPATCH Mild DOESN'T WANT 03/29/2007 Yes codeine [id number] Drug Allergy Mild NAUSEA, HEADACH 04/05/2007 Yes codeine [id number] Drug Allergy Unknown NAUSEA 10/08/2016 Yes codeine [id number] Drug Allergy Mild NAUSEA 05/05/2018 Yes diltiazem [id number] Drug Allergy Mild DOESN'T WANT 05/05/2018 Yes indomethacin [id number] Drug Allergy Mild DOESN'T WANT 05/05/2018 Yes propranolol [id number] Drug Allergy Mild DOESN'T WANT 05/05/2018 Yes atenolol [id number] Drug Allergy Unknown N/A 05/05/2018 Yes morphine [id number] Drug Allergy Unknown N/A 05/05/2018 Medications There is no data. Problems Date [...] Ot 455.3 EXT HEMORRHOID W/O COMPL 05/23/2013 NARA VILLANUEVA, ELVIRA Ot 562.10 DIVERTICULOSIS COLON (W/O MENT OF HEMORR 09/07/2013 ANGELA DPM, LIAM Q Ot 709.2 SCAR FIBROSIS OF SKIN 08/17/2014 PHILLIPS DO JAJA Michelle Ot 414.00 CORON ATHEROSCLER NOS TYPE VESSEL, NATIV 08/17/2014 JAMES DO JAJA K Ot 793.19 OTHER NONSPECIFIC ABNORMAL FINDING OF TRICIA 08/17/2014 JAMES JAJA SANCHES Ot 805.02 FX C2 VERTEBRA-CLOSED 08/17/2014 JAMES DO JAJA K Ot 845.00 SPRAIN OF ANKLE NOS 08/17/2014 PHILLIPS JAJA SANCHES Ot 920 CONTUSION FACE/SCALP/NCK 08/17/2014 [facility] JAJA K Ot 923.00 CONTUSION SHOULDER REG 08/17/2014 [facility] JAJA K Ot 924.01 CONTUSION OF HIP 08/17/2014 [facility] JAJA K Ot 959.09 INJURY OF FACE AND NECK 08/17/2014 JAMES DO JAJA K Ot E000.8 OTHER EXTERNAL CAUSE STATUS 08/17/2014 JAMES DO JAJA K Ot E013.0 ACTIVITIES INVOLVING PERSONAL BATHING AN 08/17/2014 JAMES JAJA SANCHES Ot E849.0 ACCIDENT IN HOME 08/17/2014 JAMES JAJA SANCHES Ot E888.1 FALL STRIKING OBJECT NEC 08/17/2014 JAMES DO JAJA K Ot V58.66 LONG-TERM (CURRENT) USE OF ASPIRIN 08/17/2014 JAMES ADAM SANCHESA Michelle Ot V58.69 OT MED,LT,CURRENT USE 08/23/2014 TREVOR VILLANUEVA, SHANTANU E Ot 272.4 08/23/2014 TREVOR VILLANUEVA, SHANTANU E Ot 401.9 08/23/2014 TREVOR VILLANUEVA, SHANTANU E Ot 414.01 08/23/2014 TREVOR VILLANUEVA, SHANTANU E Ot 924.10 08/23/2014 TREVOR VILLANUEVA, SHANTANU Juan Ot E013.0 08/23/2014 SHANTANU MURRAY MD E Ot E849.0 08/23/2014 TREVOR VILLANUEVA, SHANTANU [...] E Ot 272.4 HYPERLIPIDEMIA NEC/NOS 09/03/2014 TREVOR VILLANUEVA SHANTANU E Ot 333.94 RESTLESS LEGS SYNDROME 09/03/2014 TREVOR VILLANUEVA SHANTANU E Ot 401.9 HYPERTENSION NOS 09/03/2014 TREVOR VILLANUEVA, SHANTANU E Ot 414.01 CORONARY [...] CEDRICK VILLANUEVA, KAVITA Cornell Ot 414.01 10/29/2014 KAVITA PHILIP MD Ot [...] VILLANUEVA SHANTANU E Ot V45.82 11/12/2014 TREVOR VILLANUEVA, SHANTANU E Ot V54.17 11/12/2014 TREVOR VILLANUEVA SHANTANU E Ot V57.89 11/13/2014 TREVOR VILLANUEVA, [...] Ot 682.6 CELLULITIS OF LEG 11/13/2014 TREVOR VILLANUEVA SHANTANU E Ot 724.5 BACKACHE NOS 11/13/2014 [...] [place] ARTER EXTREMITIES W ULC 01/22/2015 KAVITA PHILIP MD Ot 457.1 OTHER LYMPHEDEMA 01/22/2015 KAVITA [...] M54.5 LOW BACK PAIN 01/23/2016 KAVITA PHILIP MD, Ot M54.2 CERVICALGIA 01/23/2016 KAVITA PHILIP MD, Ot M54.5 LOW BACK PAIN 01/26/2016 KAVITA PHILIP MD, Ot M54.2 CERVICALGIA 01/26/2016 CEDRICK MD, KAVITA D Ot M54.5 LOW BACK PAIN 01/27/2016 CEDRICK [...] VILLANUEVA, KAVITA Cornell Ot M54.2 CERVICALGIA 03/26/2016 CEDRICK VILLANUEVA, KAVITA Cornell Ot M54.5 LOW BACK PAIN 10/08/2016 IVELISSE DO COLLEEN Ot D72.829 ELEVATED WHITE BLOOD CELL COUNT, UNSPECI 10/08/2016 OVIEDO DO COLLEEN Ot I10 ESSENTIAL (PRIMARY) HYPERTENSION 10/08/2016 IVELISSE SANCHES COLLEEN Ot K21.9 GASTRO-ESOPHAGEAL REFLUX DISEASE WITHOUT 10/08/2016 IVELISSE SANCHES COLLEEN Ot K59.09 OTHER CONSTIPATION 10/08/2016 IVELISSE DO COLLEEN Ot S00.83XA CONTUSION OF OTHER PART OF HEAD, INITIAL 10/08/2016 OVIEDO DO COLLEEN Ot S79.912A UNSPECIFIED INJURY OF LEFT HIP, INITIAL 10/08/2016 IVELISSE SANCHES COLLEEN Ot W19.XXXA UNSPECIFIED FALL, INITIAL ENCOUNTER 10/08/2016 IVELISSE SANCHES COLLEEN Ot Y92.[address] IN HOSPITAL PLACE 10/14/2016 TREVOR VILLANUEVA, SHANTANU E Ot E78.5 HYPERLIPIDEMIA, UNSPECIFIED 10/14/2016 TREVOR VILLANUEVA, SHANTANU E Ot I10 ESSENTIAL (PRIMARY) HYPERTENSION 10/14/2016 TREVOR VILLANUEVA, SHANTANU E Ot I25.10 ATHSCL HEART DISEASE OF [place] CORONARY 10/14/2016 TREVOR VILLANUEVA, SHANTANU E Ot I73.9 PERIPHERAL VASCULAR DISEASE, UNSPECIFIED 10/14/2016 TREVOR VILLANUEVA, SHANTANU E Ot K21.9 GASTRO-ESOPHAGEAL REFLUX DISEASE WITHOUT 10/14/2016 TREVOR VILLANUEVA, SHANTANU E Ot K59.09 OTHER CONSTIPATION 10/14/2016 TREVOR VILLANUEVA, SHANTANU E Ot M16.11 UNILATERAL PRIMARY OSTEOARTHRITIS, RIGHT 10/14/2016 TREVOR VILLANUEVA SHANTANU E Ot M54.5 LOW [...] E Ot I10 ESSENTIAL (PRIMARY) HYPERTENSION 10/14/2016 SHANTANU MURRAY MD E Ot I25.10 ATHSCL HEART DISEASE OF [place] CORONARY 10/14/2016 SHANTANU MURRAY MD E Ot I73.9 PERIPHERAL [...] E Ot I10 ESSENTIAL (PRIMARY) HYPERTENSION 10/14/2016 SHANTANU MURRAY MD E Ot I25.10 ATHSCL HEART DISEASE OF [place] CORONARY 10/14/2016 MURRAY MD, SHANTANU E Ot I73.9 PERIPHERAL VASCULAR DISEASE, UNSPECIFIED 10/14/2016 TREVOR VILLANUEVA SHANTANU E Ot K21.9 GASTRO-ESOPHAGEAL REFLUX DISEASE WITHOUT 10/14/2016 TREVOR VILLANUEVA SHANTANU E Ot K59.09 OTHER CONSTIPATION 10/14/2016 TREVOR VILLANUEVA SHANTANU E Ot M16.11 UNILATERAL [...] Z95.820 PERIPHERAL VASCULAR ANGIOPLASTY STATUS W 10/15/2016 SHANTANU MURRAY MD E Ot E78.5 HYPERLIPIDEMIA, UNSPECIFIED 10/15/2016 MAO MURRAY MDIC E Ot I10 ESSENTIAL (PRIMARY) HYPERTENSION 10/15/2016 MAO MURRAY MDIC E Ot I25.10 ATHSCL HEART DISEASE OF [place] CORONARY 10/15/2016 MAO MURRAY MDIC E Ot I73.9 PERIPHERAL VASCULAR DISEASE, UNSPECIFIED 10/15/2016 MAO MURRAY MDIC E Ot K21.9 GASTRO-ESOPHAGEAL REFLUX DISEASE WITHOUT 10/15/2016 TREVOR VILLANUEVA SHANTANU E Ot K59.09 OTHER CONSTIPATION 10/15/2016 MAO MURRAY MDIC E Ot M16.11 UNILATERAL PRIMARY OSTEOARTHRITIS, RIGHT 10/15/2016 MAO MURRAY MDIC E Ot M54.5 LOW BACK PAIN 10/15/2016 MAO MURRAY MDIC E Ot S70.01XD CONTUSION OF RIGHT HIP, SUBSEQUENT ENCOU 10/15/2016 MAO MURRAY MDIC E Ot W19.XXXD UNSPECIFIED FALL, SUBSEQUENT ENCOUNTER 10/15/2016 SHANTANU MURRAY MD E Ot Z66 DO NOT RESUSCITATE 10/15/2016 SHANTANU MURRAY MD E Ot Z95.1 PRESENCE [...] Ot K21.9 GASTRO-ESOPHAGEAL REFLUX DISEASE WITHOUT 10/21/2016 MAO MURRAY MDIC E Ot K59.09 OTHER CONSTIPATION 10/21/2016 SHANTANU [...] Ot K21.9 GASTRO-ESOPHAGEAL REFLUX DISEASE WITHOUT 10/21/2016 MAO MURRAY MDIC E Ot K59.09 OTHER CONSTIPATION 10/21/2016 MAO MURRAY MDIC E Ot M16.11 UNILATERAL [...] VASCULAR ANGIOPLASTY STATUS W 01/14/2017 ARIEL GUERRERO [employer] OFFICER Ot M54.2 CERVICALGIA 01/14/2017 ARIEL GUERRERO [employer] OFFICER Ot M54.5 LOW BACK PAIN 01/14/2017 KAVITA PHILIP MD Ot M47.816 SPONDYLOSIS W/O MYELOPATHY OR RADICULOPA 01/14/2017 KAVITA PHILIP MD Ot S32.020A WEDGE COMPRESSION FRACTURE OF SECOND LUM 01/14/2017 KAVITA PHILIP MD Ot X58.XXXA EXPOSURE TO OTHER SPECIFIED FACTORS, INI 01/14/2017 KAVITA PHILIP MD Ot Y99.8 OTHER EXTERNAL CAUSE STATUS 01/19/2017 ARIEL GUERRERO [employer] OFFICER Ot M54.2 CERVICALGIA 01/19/2017 ARIEL GUERRERO [employer] OFFICER Ot M54.5 LOW BACK PAIN 01/19/2017 KAVITA PHILIP MD Ot M47.816 SPONDYLOSIS W/O MYELOPATHY OR RADICULOPA 01/19/2017 KAVITA PHILIP MD Ot S32.020A WEDGE COMPRESSION FRACTURE OF SECOND LUM 01/19/2017 KAVITA PHILIP MD Ot X58.XXXA EXPOSURE TO OTHER SPECIFIED FACTORS, INI 01/19/2017 KAVITA PHILIP MD Ot Y99.8 OTHER EXTERNAL CAUSE STATUS 01/22/2017 ARIEL GUERRERO [employer] OFFICER Ot M54.2 CERVICALGIA 01/22/2017 ARIEL GUERRERO [employer] OFFICER Ot M54.5 LOW BACK PAIN 01/31/2017 ARIEL GUERRERO [employer] OFFICER Ot M54.2 CERVICALGIA 01/31/2017 ARIEL GUERRERO [employer] OFFICER Ot M54.5 LOW BACK PAIN 03/18/2017 ARIEL GUERRERO [employer] OFFICER Ot M54.2 CERVICALGIA 03/18/2017 YOLANDA, ARIEL R [employer] OFFICER Ot M54.5 LOW BACK PAIN 03/24/2017 YOLANDA ARIEL R [employer] OFFICER Ot M54.2 CERVICALGIA 03/24/2017 YOLANDA, ARIEL R [employer] OFFICER Ot M54.5 LOW BACK PAIN 04/28/2017 YOLANDA, ARIEL R [employer] OFFICER Ot M54.2 CERVICALGIA 04/28/2017 YOLANDA ARIEL R [employer] SKILL[employer] OFFICER Ot M54.5 LOW BACK PAIN 02/01/2018 ANTONY MCCALLUM MD Ot E78.00 PURE HYPERCHOLESTEROLEMIA, UNSPECIFIED 02/01/2018 ANTONY MCCALLUM MD Ot I10 ESSENTIAL (PRIMARY) HYPERTENSION 02/01/2018 ANTONY MCCALLUM MD, Ot I25.10 ATHSCL HEART DISEASE OF [place] CORONARY 02/01/2018 ANTONY MCCALLUM MD Ot I73.9 PERIPHERAL VASCULAR DISEASE, UNSPECIFIED 02/01/2018 ANTONY MCCALLUM MD Ot K21.9 GASTRO-ESOPHAGEAL REFLUX DISEASE WITHOUT 02/01/2018 ANTONY MCCALLUM MD Ot M25.551 PAIN IN RIGHT HIP 02/01/2018 ANTONY MCCALLUM MD Ot R40.2142 COMA SCALE, EYES OPEN, SPONTANEOUS, EMR 02/01/2018 ANTONY MCCALLUM MD, Ot R40.2252 COMA SCALE, BEST VERBAL RESPONSE, [...] STATUS TO NARCOTIC AGENT STATUS 02/01/2018 ANTONY MCCALLUM MD, Ot Z88.8 ALLERGY STATUS TO OTH DRUG/MEDS/BIOL SUB 02/01/2018 ANTONY MCCALLUM MD, Ot Z90.49 ACQUIRED ABSENCE OF OTHER SPECIFIED PART 02/01/2018 ANTONY MCCALLUM MD, Ot Z90.89 ACQUIRED ABSENCE OF OTHER ORGANS 02/01/2018 ANTONY MCCALLUM MD, Ot Z95.5 PRESENCE OF CORONARY ANGIOPLASTY IMPLANT 02/01/2018 ANTONY MCCALLUM MD, Ot Z98.62 PERIPHERAL VASCULAR ANGIOPLASTY STATUS 02/08/2018 PHOEBE PULIDO APRN Ot Z48.02 ENCOUNTER FOR REMOVAL OF SUTURES 02/10/2018 ANTONY MCCALLUM MD Ot E78.00 PURE HYPERCHOLESTEROLEMIA, UNSPECIFIED 02/10/2018 ANTONY MCCALLUM MD Ot I10 ESSENTIAL (PRIMARY) HYPERTENSION 02/10/2018 ANTONY MCCALLUM MD, Ot I25.10 ATHSCL HEART DISEASE OF [place] CORONARY 02/10/2018 ANTONY MCCALLUM MD, Ot I73.9 PERIPHERAL VASCULAR DISEASE, UNSPECIFIED 02/10/2018 ANTONY MCCALLUM MD, Ot K21.9 GASTRO-ESOPHAGEAL REFLUX DISEASE WITHOUT 02/10/2018 ANTONY MCCALLUM MD Ot M25.551 PAIN IN RIGHT HIP 02/10/2018 ANTONY MCCALLUM MD, Ot R40.2142 COMA SCALE, EYES OPEN, SPONTANEOUS, EMR 02/10/2018 ANTONY MCCALLUM MD, Ot R40.2252 COMA SCALE, BEST VERBAL RESPONSE, ORIENT 02/10/2018 ANTONY MCCALLUM MD, Ot R40.2362 COMA SCALE, BEST MOTOR RESPONSE, OBEYS C 02/10/2018 ANTONY MCCALLUM MD, Ot R42 DIZZINESS AND GIDDINESS 02/10/2018 ANTONY MCCALLUM MD, Ot R91.8 OTHER NONSPECIFIC ABNORMAL FINDING OF TRICIA 02/10/2018 ANTONY MCCALLUM MD, Ot S01.81XA LACERATION W/O FOREIGN BODY OF OTH PART 02/10/2018 ANTONY MCCALLUM MD, Ot W19.XXXA UNSPECIFIED FALL, INITIAL ENCOUNTER 02/10/2018 ANTONY MCCALLUM MD, Ot Z23 ENCOUNTER FOR IMMUNIZATION 02/10/2018 ANTONY MCCALLUM MD, Ot 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 02/10/2018 ANTONY MCCALLUM [...] ABSENCE OF OTHER ORGANS 02/10/2018 ANTONY MCCALLUM MD, Ot Z95.5 PRESENCE OF CORONARY ANGIOPLASTY IMPLANT 02/10/2018 ANTONY MCCALLUM MD, Ot Z98.62 PERIPHERAL VASCULAR ANGIOPLASTY STATUS 02/13/2018 PHOEBE PULIDO APRN Ot Z48.02 ENCOUNTER FOR REMOVAL OF SUTURES 02/27/2018 ELVIRA BAINS MD Ot V72.84 EXAM PRE-OPERATIVE NOS 02/27/2018 ANGELA [...] E849.0 ACCIDENT IN HOME 02/27/2018 KAVITA PHILIP MD Ot E888.9 FALL NOS 02/27/2018 AMY VILLANUEVA, ROBBY Yousif Ot 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 02/27/2018 ROBBY REYES MD Ot 707.12 ULCER OF CALF 02/27/2018 KAVITA PHILIP MD Ot M47.816 SPONDYLOSIS W/O MYELOPATHY OR RADICULOPA 02/27/2018 KAVITA PHILIP MD Ot S32.020A WEDGE COMPRESSION FRACTURE OF SECOND LUM 02/27/2018 KAVITA PHILIP MD Ot X58.XXXA EXPOSURE TO OTHER SPECIFIED FACTORS, INI 02/27/2018 KAVITA PHILIP MD Ot Y99.8 OTHER EXTERNAL CAUSE STATUS 03/30/2018 KAVITA PHILIP MD Ot R32 UNSPECIFIED URINARY INCONTINENCE 04/21/2018 KAVITA PHILIP MD Ot R32 UNSPECIFIED URINARY INCONTINENCE 04/28/2018 KAVITA PHILIP MD Ot R32 UNSPECIFIED URINARY INCONTINENCE 04/28/2018 KAVITA PHILIP MD, Ot R32 UNSPECIFIED URINARY INCONTINENCE 05/09/2018 LESLEE HANCOCK MD Ot A41.89 OTHER SPECIFIED SEPSIS 05/09/2018 LESLEE HANCOCK MD Ot E78.00 PURE HYPERCHOLESTEROLEMIA, UNSPECIFIED 05/09/2018 LESLEE HANCOCK MD Ot E87.2 ACIDOSIS 05/09/2018 LESLEE HANCOCK MD Ot I10 ESSENTIAL (PRIMARY) HYPERTENSION 05/09/2018 LESLEE HANCOCK MD Ot I11.0 HYPERTENSIVE HEART DISEASE WITH HEART FA 05/09/2018 LESLEE HANCOCK MD Ot I25.10 ATHSCL HEART DISEASE OF [place] CORONARY 05/09/2018 LESLEE HANCOCK MD Ot I50.21 ACUTE SYSTOLIC (CONGESTIVE) HEART FAILUR 05/09/2018 LESLEE HANCOCK MD Ot I73.9 PERIPHERAL VASCULAR DISEASE, UNSPECIFIED 05/09/2018 LESLEE HANCOCK MD Ot J10.00 FLU DUE TO OTH IDENT FLU VIRUS W UNSP TY 05/09/2018 LESLEE HANCOCK MD Ot J12.89 OTHER VIRAL PNEUMONIA 05/09/2018 LESLEE HACNOCK MD Ot J96.02 ACUTE RESPIRATORY FAILURE WITH HYPERCAPN 05/09/2018 LESLEE HANCOCK MD Ot K21.9 GASTRO-ESOPHAGEAL REFLUX DISEASE WITHOUT 05/09/2018 LESLEE HANCOCK MD Ot N39.0 URINARY TRACT INFECTION, SITE NOT SPECIF 05/09/2018 LESLEE HANCOCK MD Ot R14.0 ABDOMINAL DISTENSION (GASEOUS) 05/09/2018 LESLEE HANCOCK MD Ot R65.20 SEVERE SEPSIS WITHOUT SEPTIC SHOCK 05/09/2018 LESLEE HANCOCK MD Ot Z66 DO NOT RESUSCITATE 05/09/2018 LESLEE HANCOCK MD Ot Z95.5 PRESENCE OF CORONARY ANGIOPLASTY IMPLANT 05/09/2018 LESLEE HANCOCK MD Ot Z95.820 PERIPHERAL VASCULAR ANGIOPLASTY STATUS W 05/12/2018 LESLEE HANCOCK MD Ot A41.89 OTHER SPECIFIED SEPSIS 05/12/2018 LESLEE HANCOCK MD Ot E78.00 PURE HYPERCHOLESTEROLEMIA, UNSPECIFIED 05/12/2018 LESLEE HANCOCK MD Ot E87.2 ACIDOSIS 05/12/2018 LESLEE HANCOCK MD Ot I10 ESSENTIAL (PRIMARY) HYPERTENSION 05/12/2018 LESLEE HANCOCK MD Ot I25.10 ATHSCL HEART DISEASE OF [place] CORONARY 05/12/2018 LESLEE HANCOCK MD Ot I73.9 PERIPHERAL VASCULAR DISEASE, UNSPECIFIED 05/12/2018 LESLEE HANCOCK MD Ot J10.00 FLU DUE TO OTH IDENT FLU VIRUS W UNSP TY 05/12/2018 LESLEE HANCOCK MD Ot J12.89 OTHER VIRAL PNEUMONIA 05/12/2018 LESLEE HANCOCK MD Ot J96.02 ACUTE RESPIRATORY FAILURE WITH HYPERCAPN 05/12/2018 LESLEE HANCOCK MD Ot K21.9 GASTRO-ESOPHAGEAL REFLUX DISEASE WITHOUT 05/12/2018 LESLEE HANCOCK MD Ot N39.0 URINARY TRACT INFECTION, SITE NOT SPECIF 05/12/2018 LESLEE HANCOCK MD Ot Z66 DO NOT RESUSCITATE 05/12/2018 LESLEE HANCOCK MD Ot Z95.5 PRESENCE OF CORONARY ANGIOPLASTY IMPLANT 05/12/2018 LESLEE HANCOCK MD Ot Z95.820 PERIPHERAL VASCULAR ANGIOPLASTY STATUS W 05/12/2018 LESLEE HANCOCK MD Ot A41.89 OTHER SPECIFIED SEPSIS 05/12/2018 LESLEE HANCOCK MD Ot E78.00 PURE HYPERCHOLESTEROLEMIA, UNSPECIFIED 05/12/2018 LESLEE HANCOCK MD Ot E87.2 ACIDOSIS 05/12/2018 LESLEE HANCOCK MD Ot I10 ESSENTIAL (PRIMARY) HYPERTENSION 05/12/2018 LESLEE HANCOCK MD Ot I25.10 ATHSCL HEART DISEASE OF [place] CORONARY 05/12/2018 LESLEE HANCOCK MD Ot I73.9 PERIPHERAL VASCULAR DISEASE, UNSPECIFIED 05/12/2018 LESLEE HANCOCK MD Ot J10.00 FLU DUE TO OTH IDENT FLU VIRUS W UNSP TY 05/12/2018 LESLEE HANCOCK MD Ot J12.89 OTHER VIRAL PNEUMONIA 05/12/2018 LESLEE HANCOCK MD Ot J96.02 ACUTE RESPIRATORY FAILURE WITH HYPERCAPN 05/12/2018 LESLEE HANCOCK MD Ot K21.9 GASTRO-ESOPHAGEAL REFLUX DISEASE WITHOUT 05/12/2018 LESLEE HANCOCK MD Ot N39.0 URINARY TRACT INFECTION, SITE NOT SPECIF 05/12/2018 LESLEE HANCOCK MD Ot Z66 DO NOT RESUSCITATE 05/12/2018 LESLEE HANCOCK MD Ot Z95.5 PRESENCE OF CORONARY ANGIOPLASTY IMPLANT 05/12/2018 LESLEE HANCOCK MD Ot Z95.820 PERIPHERAL VASCULAR ANGIOPLASTY STATUS W 05/12/2018 LESLEE HANCOCK MD Ot A41.89 OTHER SPECIFIED SEPSIS 05/12/2018 LESLEE HANCOCK MD Ot E78.00 PURE HYPERCHOLESTEROLEMIA, UNSPECIFIED 05/12/2018 LESLEE HANCOCK MD Ot E87.2 ACIDOSIS 05/12/2018 LESLEE HANCOCK MD Ot I10 ESSENTIAL (PRIMARY) HYPERTENSION 05/12/2018 LESLEE HANCOCK MD, Ot I25.10 ATHSCL HEART DISEASE OF [place] CORONARY 05/12/2018 LESLEE HANCOCK MD, Ot I73.9 PERIPHERAL VASCULAR DISEASE, UNSPECIFIED 05/12/2018 LESLEE HANCOCK MD, Ot J10.00 FLU DUE TO OTH IDENT FLU VIRUS W UNSP TY 05/12/2018 LESLEE HANCOCK MD, Ot J12.89 OTHER VIRAL PNEUMONIA 05/12/2018 LESLEE HANCOCK MD, Ot J96.02 ACUTE RESPIRATORY FAILURE WITH HYPERCAPN 05/12/2018 LESLEE HANCOCK MD, Ot K21.9 GASTRO-ESOPHAGEAL REFLUX DISEASE WITHOUT 05/12/2018 LESLEE HANCOCK MD, Ot N39.0 URINARY TRACT INFECTION, SITE NOT SPECIF 05/12/2018 LESLEE HANCOCK MD Ot Z66 DO NOT RESUSCITATE 05/12/2018 LESLEE HANCOCK MD Ot Z95.5 PRESENCE OF CORONARY ANGIOPLASTY IMPLANT 05/12/2018 LESLEE HANCOCK MD Ot Z95.820 PERIPHERAL VASCULAR ANGIOPLASTY STATUS W 10/11/2018 JIMI AGUILERA Ot M19.011 PRIMARY OSTEOARTHRITIS, RIGHT SHOULDER 10/11/2018 JIMI AGUILERA Ot Z87.81 PERSONAL HISTORY OF (HEALED) TRAUMATIC F 11/01/2018 JIMI AGUILERA Ot M19.011 PRIMARY OSTEOARTHRITIS, RIGHT SHOULDER 11/01/2018 JIMI AGUILERA Ot Z87.81 PERSONAL HISTORY OF (HEALED) TRAUMATIC F 11/03/2018 JIMI AGUILERA Ot M19.011 PRIMARY OSTEOARTHRITIS, RIGHT SHOULDER 11/03/2018 JIMI AGUILERA Ot Z87.81 PERSONAL HISTORY OF (HEALED) TRAUMATIC F Procedures Code Description Performed By Performed On 83.02 MYOTOMY 10/28/2014 [id number] INTRODUCTION OF ANTI-INFLAMMATORY INTO J 10/15/2016 Results Test Result Range [...] Automated erythrocyte mean corpuscular hemoglobin concentration measurement (mass/volume) 33 g/dL 32-36 Automated erythrocyte distribution width ratio 12.9 % 10.0- 14.5 Automated blood platelet count (count/volume) 234 10*3/uL 130-400 Automated blood platelet mean volume measurement 10.6 [foz_us] 7.4-10.4 Automated blood neutrophils/100 leukocytes 86 % 42-75 Automated blood lymphocytes/100 leukocytes 6 % 12-44 Blood monocytes/100 leukocytes 8 % 0-12 Automated blood eosinophils/100 leukocytes 1 % 0-10 Automated blood basophils/100 leukocytes 0 % 0-10 Blood neutrophils automated count (number/volume) 17.3 10*3 1.8-7.8 Blood lymphocytes automated count (number/volume) 1.2 10*3 1.0-4.0 Blood monocytes automated count (number/volume) 1.6 10*3 0.0- 1.0 Automated eosinophil count 0.1 10*3/uL 0.0-0.3 Automated [...] NRG Blood erythrocyte morphology finding identification [facility] Comprehensive metabolic panel - 10/07/16 20:10 [...] or plasma urea nitrogen/creatinine mass ratio 33 0- 20 Serum or plasma creatinine measurement with calculation of estimated glomerular filtration rate > NRG Serum or plasma glucose measurement (mass/volume) 104 mg/dL 70-105 Serum or plasma calcium measurement (mass/volume) 9.0 mg/dL 8.5-10.1 Serum or plasma total bilirubin measurement (mass/volume) 0.4 mg/dL 0.1-1.0 Serum or plasma alkaline phosphatase measurement (enzymatic activity/volume) 71 U/L 40-136 Serum or plasma aspartate aminotransferase measurement (enzymatic activity/volume) 13 U/L 5-34 Serum or plasma alanine aminotransferase measurement (enzymatic activity/volume) 18 U/L 0-55 Serum or plasma protein [...] Automated erythrocyte mean corpuscular hemoglobin concentration measurement (mass/volume) 32 g/dL 32-36 Automated erythrocyte distribution width ratio 13.0 % 10.0- 14.5 Automated blood platelet count (count/volume) 228 10*3/uL [...] Blood monocytes automated count (number/volume) 1.5 10*3 0.0- 1.0 Automated eosinophil count 0.3 10*3/uL 0.0-0.3 Automated [...] or plasma urea nitrogen/creatinine mass ratio 30 0- 20 Serum or plasma creatinine measurement with calculation of estimated glomerular filtration rate > NRG Serum or plasma glucose measurement (mass/volume) 99 mg/dL 70-105 Serum or plasma calcium measurement (mass/volume) 8.9 mg/dL 8.5-10.1 Serum or plasma total bilirubin measurement (mass/volume) 0.4 mg/dL 0.1-1.0 Serum or plasma alkaline phosphatase measurement (enzymatic activity/volume) 71 U/L 40-136 Serum or plasma aspartate aminotransferase measurement (enzymatic activity/volume) 13 U/L 5-34 Serum or plasma alanine aminotransferase measurement (enzymatic activity/volume) 16 U/L 0-55 Serum or plasma protein [...] sediment leukocyte count by microscopy (number/high power field) [HPF] NRG Bacteria detection in urine sediment [...] culture - 10/08/16 12:00 Bacterial urine culture [id number] NRG COLONY COUNT 10,000/ML - 100,000/ML NRG [...] Automated erythrocyte mean corpuscular hemoglobin concentration measurement (mass/volume) 33 g/dL 32-36 Automated erythrocyte distribution width ratio 13.4 % 10.0- 14.5 Automated blood platelet count (count/volume) 239 10*3/uL [...] Blood monocytes automated count (number/volume) 0.7 10*3 0.0- 1.0 Automated eosinophil count 0.2 10*3/uL 0.0-0.3 Automated [...] Serum or plasma aspartate aminotransferase measurement (enzymatic activity/volume) 12 U/L 5-34 Serum or plasma alanine aminotransferase measurement (enzymatic activity/volume) 19 U/L 0-55 Serum or plasma protein [...] or plasma troponin i.cardiac measurement (mass/volume) < ng/mL <0.30 Complete urinalysis with reflex to culture - 02/01/18 11:37 Urine color determination YELLOW NRG Urine clarity determination CLEAR NRG Urine pH measurement by test strip 6 5-9 Specific gravity of urine by test strip 1.010 1.016-1.022 Urine protein assay by test strip, [...] sediment leukocyte count by microscopy (number/high power field) [HPF] NRG Bacteria detection in urine sediment [...] Automated erythrocyte mean corpuscular hemoglobin concentration measurement (mass/volume) 31 g/dL 32-36 Automated erythrocyte distribution width ratio 13.5 % 10.0- 14.5 Automated blood platelet count (count/volume) 231 10*3/uL 130-400 Automated blood platelet mean volume measurement 10.9 [foz_us] 7.4-10.4 Automated blood neutrophils/100 leukocytes 84 % 42-75 Automated blood lymphocytes/100 leukocytes 5 % 12-44 Blood monocytes/100 leukocytes 9 % 0-12 Automated blood eosinophils/100 leukocytes 2 % 0-10 Automated blood basophils/100 leukocytes 1 % 0-10 Blood neutrophils automated count (number/volume) 7.8 10*3 1.8-7.8 Blood lymphocytes automated count (number/volume) 0.5 10*3 1.0-4.0 Blood monocytes automated count (number/volume) 0.9 10*3 0.0- 1.0 Automated eosinophil count 0.1 10*3/uL 0.0-0.3 Automated blood basophil count (count/volume) 0.1 10*3/uL 0.0-0.1 Blood lactic acid measurement (moles/volume) - 05/05/18 10:15 Blood lactic acid measurement (moles/volume) 1.23 mmol/L 0.50- 2.00 PT panel in platelet poor plasma by [...] Serum or plasma aspartate aminotransferase measurement (enzymatic activity/volume) 21 U/L 5-34 Serum or plasma alanine aminotransferase measurement (enzymatic activity/volume) 28 U/L 0-55 Serum or plasma protein [...] Manual eosinophils/100 leukocytes in nose 1 % NR Manual blood basophils/100 leukocytes 1 % NR Blood erythrocyte morphology finding identification NORMAL NRG Serum or plasma C reactive protein measurement (mass/volume) - 05/05/18 10:15 Serum or plasma C reactive protein measurement (mass/volume) 1.52 mg/dL 0.00-0.50 Serum or plasma lithium measurement (moles/volume) - 05/05/18 10:15 BNP level 967.9 pg/mL <100.0 Bacterial blood culture - 05/05/18 10:15 Bacterial blood culture NG NRG Bacterial blood culture - 05/05/18 10:25 Bacterial blood culture NG NRG Complete urinalysis with reflex to culture - 05/05/18 11:15 Urine color determination YELLOW NRG Urine clarity determination CLEAR NRG Urine pH measurement by test strip 5 5-9 Specific gravity of urine by test strip 1.015 1.016-1.022 Urine protein assay by test strip, [...] sediment leukocyte count by microscopy (number/high power field) [HPF] NRG Bacteria detection in urine sediment by light microscopy NEGATIVE NRG Squamous epithelial cells detection in urine sediment by light microscopy 0-2 NRG Crystals detection in urine sediment by light microscopy NONE NRG Casts detection in urine sediment by light microscopy NONE NRG Mucus detection in urine sediment by light microscopy NEGATIVE NRG Complete urinalysis with reflex to culture CULTURE PENDING NRG Bacterial urine culture - 05/05/18 11:15 Bacterial urine culture SEE COMMEN NRG COLONY COUNT . NRG Arterial blood gas measurement - 05/05/18 13:45 Blood pCO2 49 mm[Hg] 35-45 Blood pO2 198 mm[Hg] 79-93 Arterial blood bicarbonate measurement (moles/volume) 21 mmol/L 23-27 Arterial blood base excess by calculation -5.1 mmol/L -2.5-2.5 Arterial blood oxygen saturation measurement 100 % 94-100 * Inhaled oxygen flow rate 50% NRG Arterial blood pH measurement with patient temperature correction 7.25 7.37-7.43 Arterial blood carbon dioxide, total measurement (moles/volume) 22.9 mmol/L 21.0-31.0 Body site RIGHT RADIAL NRG Assessment of wrist artery patency prior to arterial puncture POSITIVE NRG Setting of ventilation mode NO NRG Measurement of body temperature 96.4 NRG Serum or plasma troponin i.cardiac measurement (mass/volume) - 05/05/18 14:34 Serum or plasma troponin i.cardiac measurement (mass/volume) 0.056 ng/mL <0.028 Fibrin D-dimer FEU measurement in platelet poor plasma (mass/volume) - 05/05/18 15:23 Fibrin D-dimer FEU measurement in platelet poor plasma (mass/volume) 3.55 ug/mL 0.00-0.49 Complete blood count (CBC) with automated white blood cell (WBC) differential - 05/06/18 04:45 Blood leukocytes automated count (number/volume) 13.5 10*3/uL 4.3-11.0 Blood erythrocytes automated count (number/volume) 4.02 10*6/uL 4.35-5.85 Venous blood hemoglobin measurement (mass/volume) 12.2 g/dL 11.5-16.0 Blood hematocrit (volume fraction) 38 % 35-52 Automated erythrocyte mean corpuscular volume 95 [foz_us] 80-99 Automated erythrocyte mean corpuscular hemoglobin (mass per erythrocyte) 30 pg 25-34 Automated erythrocyte mean corpuscular hemoglobin concentration measurement (mass/volume) 32 g/dL 32-36 Automated erythrocyte distribution width ratio 13.5 % 10.0- 14.5 Automated blood platelet count (count/volume) 263 10*3/uL 130-400 Automated blood platelet mean volume measurement 10.9 [foz_us] 7.4-10.4 Automated blood neutrophils/100 leukocytes 87 % 42-75 Automated blood lymphocytes/100 leukocytes 4 % 12-44 Blood monocytes/100 leukocytes 9 % 0-12 Automated blood eosinophils/100 leukocytes 0 % 0-10 Automated blood basophils/100 leukocytes 0 % 0-10 Blood neutrophils automated count (number/volume) 11.7 10*3 1.8-7.8 Blood lymphocytes automated count (number/volume) 0.5 10*3 1.0-4.0 Blood monocytes automated count (number/volume) 1.2 10*3 0.0- 1.0 Automated eosinophil count 0.1 10*3/uL 0.0-0.3 Automated blood basophil count (count/volume) 0.0 10*3/uL 0.0-0.1 Comprehensive metabolic panel - 05/06/18 04:45 Serum or plasma sodium measurement (moles/volume) 140 mmol/L 135-145 Serum or plasma potassium measurement (moles/volume) 4.1 mmol/L 3.6-5.0 Serum or plasma chloride measurement (moles/volume) 104 mmol/L 98-107 Carbon dioxide 21 mmol/L 21-32 Serum or plasma anion gap determination (moles/volume) 15 mmol/L 5-14 Serum or plasma urea nitrogen measurement (mass/volume) 27 mg/dL 7-18 Serum or plasma creatinine measurement (mass/volume) 1.15 mg/dL 0.60-1.30 Serum or plasma urea nitrogen/creatinine mass ratio 23 NRG Serum or plasma creatinine measurement with calculation of estimated glomerular filtration rate 45 NRG Serum or plasma glucose measurement (mass/volume) 117 mg/dL 70-105 Serum or plasma calcium measurement (mass/volume) 9.0 mg/dL 8.5-10.1 Serum or plasma total bilirubin measurement (mass/volume) 0.6 mg/dL 0.1-1.0 Serum or plasma alkaline phosphatase measurement (enzymatic activity/volume) 94 U/L 40-136 Serum or plasma aspartate aminotransferase measurement (enzymatic activity/volume) 19 U/L 5-34 Serum or plasma alanine aminotransferase measurement (enzymatic activity/volume) 45 U/L 0-55 Serum or plasma protein measurement (mass/volume) 6.3 g/dL 6.4-8.2 Serum or plasma albumin measurement (mass/volume) 3.8 g/dL 3.2-4.5 CALCIUM CORRECTED 9.2 mg/dL 8.5-10.1 Serum or plasma lithium measurement (moles/volume) - 05/06/18 04:45 BNP level 1126.7 pg/mL <100.0 Complete blood count (CBC) with automated white blood cell (WBC) differential - 05/07/18 05:30 Blood leukocytes automated count (number/volume) 9.8 10*3/uL 4.3-11.0 Blood erythrocytes automated count (number/volume) 3.95 10*6/uL 4.35-5.85 Venous blood hemoglobin measurement (mass/volume) 11.8 g/dL 11.5-16.0 Blood hematocrit (volume fraction) 38 % 35-52 Automated erythrocyte mean corpuscular volume 97 [foz_us] 80-99 Automated erythrocyte mean corpuscular hemoglobin (mass per erythrocyte) 30 pg 25-34 Automated erythrocyte mean corpuscular hemoglobin concentration measurement (mass/volume) 31 g/dL 32-36 Automated erythrocyte distribution width ratio 13.4 % 10.0- 14.5 Automated blood platelet count (count/volume) 247 10*3/uL 130-400 Automated blood platelet mean volume measurement 11.3 [foz_us] 7.4-10.4 Automated blood neutrophils/100 leukocytes 84 % 42-75 Automated blood lymphocytes/100 leukocytes 5 % 12-44 Blood monocytes/100 leukocytes 10 % 0-12 Automated blood eosinophils/100 leukocytes 1 % 0-10 Automated blood basophils/100 leukocytes 0 % 0-10 Blood neutrophils automated count (number/volume) 8.2 10*3 1.8-7.8 Blood lymphocytes automated count (number/volume) 0.5 10*3 1.0-4.0 Blood monocytes automated count (number/volume) 1.0 10*3 0.0- 1.0 Automated eosinophil count 0.1 10*3/uL 0.0-0.3 Automated blood basophil count (count/volume) 0.0 10*3/uL 0.0-0.1 Comprehensive metabolic panel - 05/07/18 05:30 Serum or plasma sodium measurement (moles/volume) 138 mmol/L 135-145 Serum or plasma potassium measurement (moles/volume) 4.0 mmol/L 3.6-5.0 Serum or plasma chloride measurement (moles/volume) 105 mmol/L 98-107 Carbon dioxide 22 mmol/L 21-32 Serum or plasma anion gap determination (moles/volume) 11 mmol/L 5-14 Serum or plasma urea nitrogen measurement (mass/volume) 32 mg/dL 7-18 Serum or plasma creatinine measurement (mass/volume) 1.22 mg/dL 0.60-1.30 Serum or plasma urea nitrogen/creatinine mass ratio 26 NRG Serum or plasma creatinine measurement with calculation of estimated glomerular filtration rate 42 NRG Serum or plasma glucose measurement (mass/volume) 94 mg/dL 70-105 Serum or plasma calcium measurement (mass/volume) 8.8 mg/dL 8.5-10.1 Serum or plasma total bilirubin measurement (mass/volume) 0.6 mg/dL 0.1-1.0 Serum or plasma alkaline phosphatase measurement (enzymatic activity/volume) 81 U/L 40-136 Serum or plasma aspartate aminotransferase measurement (enzymatic activity/volume) 16 U/L 5-34 Serum or plasma alanine aminotransferase measurement (enzymatic activity/volume) 32 U/L 0-55 Serum or plasma protein measurement (mass/volume) 6.0 g/dL 6.4-8.2 Serum or plasma albumin measurement (mass/volume) 3.6 g/dL 3.2-4.5 CALCIUM CORRECTED 9.1 mg/dL 8.5-10.1 Serum or plasma lithium measurement (moles/volume) - 05/07/18 05:30 BNP level 715.4 pg/mL <100.0 Encounters ACCT No. Visit Date/Time Discharge Status Pt. Type Provider Facility Loc./Unit Complaint [id number] 10/10/2018 11:06:00 10/10/2018 23:59:59 CLS Outpatient PRINCESS DUNN, JIMI Justin [facility] RAD RIGHT SHOULDER PAIN [id number] 05/06/2018 11:56:00 05/09/2018 15:10:00 DIS Inpatient SANTI VILLANUEVA, LESLEE Beckford [facility] 4TH INFLUENZA B;HYPOXIA [id number] 04/28/2018 14:51:00 04/28/2018 16:27:00 DIS Outpatient KAVITA PHILIP MD [facility] REHAB URINARY INCONTINENCE [id number] 02/08/2018 11:14:00 02/08/2018 11:35:00 DIS Emergency PHOEBE PULIDO APRN [facility] ER SUTURE REMOVAL [id number] 02/01/2018 09:44:00 02/01/2018 13:00:00 DIS Emergency ANTONY MCCALLUM MD [facility] ER FALL [id number] 04/29/2017 00:20:00 04/29/2017 23:59:59 CLS Preadmit ARIEL GUERRERO APRN [facility] REHAB LBP; CERVICALGIA [id number] 03/11/2017 14:31:00 04/28/2017 00:01:00 DIS Outpatient ARIEL GUERRERO APRN [facility] REHAB LBP; CERVICALGIA [id number] 01/17/2017 15:44:00 01/22/2017 00:01:00 DIS Outpatient ARIEL GUERRERO APRN [facility] REHAB LBP; CERVICALGIA [id number] 12/22/2016 14:57:00 12/22/2016 23:59:59 CLS Outpatient KAVITA PHILPI MD [facility] RAD PAIN LOW BACK [id number] 10/08/2016 15:46:00 10/21/2016 13:50:00 DIS Inpatient SHANTANU MURRAY MD [facility] IRF DEBILITY [id number] 10/07/2016 18:17:00 10/08/2016 15:45:00 DIS Inpatient COLLEEN OVIEDO DO [facility] 4TH FALL,SCULP HEMATOMA,SEVERE R HIP PAIN AND INABILIT [id number] 03/26/2016 14:29:00 03/26/2016 15:44:00 DIS Outpatient KAVITA PHILIP MD [facility] REHAB LBP;CERVICALGIA [id number] 01/21/2016 13:24:00 01/23/2016 17:00:00 DIS Outpatient KAVITA PHILIP MD [facility] REHAB LBP;CERVICALGIA [id number] 02/11/2015 13:19:00 02/11/2015 15:00:00 DIS Outpatient KAVITA PHILIP MD [facility] WOUNDCARE [id number] 01/21/2015 13:17:00 01/22/2015 00:01:00 DIS Outpatient KAVITA PHILIP MD [facility] WOUNDCARE [id number] 11/29/2014 09:10:00 11/29/2014 23:59:59 CLS Outpatient ROBBY REYES MD [facility] RAD LEG ULCER/ PAD [id number] 11/05/2014 13:21:00 11/13/2014 13:30:00 DIS Inpatient SHANTANU MURRAY MD [facility] IRF WEAKNESS [id number] 10/31/2014 08:18:00 11/05/2014 12:00:00 DIS Inpatient KAVITA PHILIP MD [facility] SURGICAL SWB--RT LEG ABSCESS,CELLULITIS [id number] 10/24/2014 18:39:00 10/31/2014 08:09:00 DIS Inpatient KAVITA PHILIP MD [facility] SURGICAL RT LEG ABSCESS,CELLULITIS [id number] 10/21/2014 14:32:00 10/21/2014 23:59:59 CLS Outpatient KAVITA PHILIP MD [facility] HH POSSIBLE WOUND INFECTION [id number] 08/22/2014 16:43:00 09/03/2014 13:45:00 DIS Inpatient SHANTANU MURRAY MD [facility] IRF DEBILITY [id number] 08/17/2014 19:21:00 08/17/2014 21:50:00 DIS Emergency JAMES DO, JAJA K [facility] ER FALL [id number] 09/07/2013 07:05:00 09/07/2013 10:55:00 DIS Outpatient ANGELA DPM, LIAM Q [facility] SOFT TISSUE LESION RIGHT FOOT [id number] 09/05/2013 12:25:00 09/05/2013 23:59:59 CLS Outpatient ANGELA DPShakeel LIAM Q [facility] PREOP SOFT TISSUE LESION RIGHT FOOT [id number] 05/23/2013 08:11:00 05/23/2013 12:45:00 DIS Outpatient ELVIRA BAINS MD [facility] CHANGE IN BOWEL HABIT;BLOOD IN STOOL [id number] 05/16/2013 07:22:00 05/16/2013 23:59:59 CLS Outpatient ELVIRA BAINS MD [facility] PREOP CHANGE IN BOWEL HABIT;BLOOD IN STOOL [id number] 11/20/2018 14:29:00 ACT Outpatient KAVITA PHILIP MD [facility] REHAB GAIT INSTABILITY AND R SHOULDER PAIN [id number] 03/27/2012 11:57:00 Document Registration [id number] 01/21/2012 09:11:00 Document Registration [id number] 11/22/2011 09:52:00 Document Registration [id number] 05/04/2010 10:30:00 Document Registration [id number] 02/04/2015 13:33:42 ACT Document Registration
--- NOTE | 2018-11-21 10:04 | ED Fall/Injury ---
General Chief Complaint: Trauma-Non Activation Stated Complaint: FALL Nursing Triage Note: PT FELL THIS AM WHILE "CHASING A BUG", STATES SHE HIT THE BACK OF HER HEAD ON FIREPLACE AND HAS R SHOULDER PAIN, PT STATES PAIN IS INCREASED WITH ACTIVITY Source: patient Exam Limitations: no limitations History of Present Illness Date Seen by Provider: Nov 21, 2018 Time Seen by Provider: 09:40 Initial Comments Here with report of multiple falls this morning. Apparently she was chasing a bug when she fell. Apparently she was trying to get up from the couch and fell back. She was able to scoot herself and ultimately was able to get up. She then fell and hit the fireplace the right side of her head and right shoulder. Complains of right shoulder pain and mild neck and head pain. No lacerations or abrasions noted or reported. States that she has pain throughout her right side. She's had multiple falls recently. She did ultimately get a hold of the police who came and helped her up. She was able to go to the bathroom and did have bowel movement and passed urine. Denies problems with that. Due to continued right shoulder pain, EMS was ultimately called and then brought her here. No new findings by EMS. Location Injury Occurred: HOME Occurred: this morning (over the last 2 hours) Severity: moderate Injuries/Pain Location: head, neck, upper extremity Context: lost balance Loss of Consciousness: no loss of consciousness Associated Symptoms (Fall): No Abdominal Pain, No Chest Pain; Headache, Lightheadedness; No Nausea/Vomiting; Neck Pain; No Shortness of Air, No Slurred Speech, No Trouble Walking, No Vision Changes Allergies and Home Medications Allergies Coded Allergies: atenolol (Verified Allergy, Unknown, 05/05/18) codeine (Verified Adverse Reaction, Mild, NAUSEA, 05/05/18) HEADACHE diltiazem (Verified Adverse Reaction, Mild, DOESN'T WANT, 05/05/18) indomethacin (Verified Adverse Reaction, Mild, DOESN'T WANT, 05/05/18) propranolol (Verified Adverse Reaction, Mild, DOESN'T WANT, 05/05/18) morphine (Verified Adverse Reaction, Unknown, 05/05/18) reports hearing things-reports she does not want to ever take. haS TOLERATED HYDROCODONE Uncoded Allergies: NITROPATCH (Adverse Reaction, Mild, DOESN'T WANT, 03/29/07) Home Medications Amitriptyline HCl 25 Mg Tablet, 25 MG PO HS, (Reported) Aspirin 81 Mg Tab.chew, 81 MG PO DAILY Prescribed by: RIVAS BOOTHE on 05/09/181216 Atorvastatin Calcium 40 Mg Tablet, 40 MG PO HS Prescribed by: RIVAS BOOTHE on 05/09/181216 Clopidogrel Bisulfate 75 Mg Tablet, 75 MG PO DAILY Prescribed by: RIVAS BOOTHE on 05/09/181216 Cyanocobalamin (Vitamin B-12) 5,000 Mcg Tab.subl, 5,000 MCG SL MoWeFr, (Reported) Docusate Sodium 100 Mg Capsule, 100 MG PO DAILY, (Reported) Gabapentin 100 Mg Capsule, 100 MG PO HS, (Reported) Glucosam/Chond/Hyalu/Cf Borate 1 Each Tablet, 1 TAB PO DAILY, (Reported) Lutein 40 Mg Capsule, 40 MG PO DAILY, (Reported) Metoprolol Succinate 100 Mg Tab.er.24h, 100 MG PO DAILY Prescribed by: RIVAS BOOTHE on 05/09/181216 Multivitamin 1 Each Tablet, 1 TAB PO DAILY, (Reported) Oseltamivir Phosphate 30 Mg Capsule, 30 MG PO BID Prescribed by: RIVAS BOOTHE on 05/09/181216 Polyethylene Glycol 3350 17 Gm Powd.pack, 17 GM PO DAILY PRN for CONSTIPATION- 2ND LINE, (Reported) Sacubitril/Valsartan 1 Each Tablet, 1 TAB PO BID Prescribed by: RIVAS BOOTHE on 05/09/181216 Spironolactone 25 Mg Tablet, 25 MG PO DAILY Prescribed by: RIVAS BOOTHE on 05/09/181216 Tramadol HCl 50 Mg Tablet, 50 MG PO Q8H PRN for PAIN-MODERATE, (Reported) Patient Home Medication List Home Medication List Reviewed: Yes Review of Systems Review of Systems Constitutional: see HPI; No chills, No fever Eyes: No Symptoms Reported Ears, Nose, Mouth, Throat: no symptoms reported Respiratory: No cough, No short of breath Cardiovascular: No chest pain, No edema Gastrointestinal: No abdominal pain, No nausea, No vomiting Genitourinary: no symptoms reported Musculoskeletal: No back pain; joint pain, muscle pain, neck pain Skin: no symptoms reported, change in color (bruises to her hands); No lesions Psychiatric/Neurological: No Symptoms Reported All Other Systems Reviewed Negative Unless Noted: Yes Past Gxwoctb-Mhuwkp-Xxxlkd Hx Past Med/Social Hx: Reviewed Nursing Past Med/Soc Hx Patient Social History Alcohol Use: Denies Use Recreational Drug Use: No 2nd Hand Smoke Exposure: No Recent Foreign Travel: No Contact w/Someone Who Travel: No Recent Infectious Disease Expo: No Recent Hopitalizations: No Immunizations Up To Date Tetanus Booster (TDap): Unknown PED Vaccines UTD: No Date of Pneumonia Vaccine: Nov 23, 2013 Date of Influenza Vaccine: Jan 23, 2018 Seasonal Allergies Seasonal Allergies: No Past Medical History Surgeries: Yes (AMAURY, APPY, T&A, CATARACTS, STENTS- LEGS & HEART) Adenoidectomy, Appendectomy, Cardiac, Coronary Stent, Gallbladder, Orthopedic, Tonsillectomy, Vascular Surgery Respiratory: Yes Pneumonia Currently Using CPAP: No Currently Using BIPAP: No Cardiac: Yes (HEART STENT X1 IN 2013, STENTS X2 IN LEGS) Coronary Artery Disease, High Cholesterol, Hypertension, Peripheral Vascular Neurological: No Reproductive Disorders: No Female Reproductive Disorders: Denies Sexually Transmitted Disease: No HIV/AIDS: No Genitourinary: Yes UTI-Chronic Gastrointestinal: Yes Gastroesophageal Reflux, Chronic Constipation, Diverticulosis, Gall Bladder Disease Musculoskeletal: Yes (BACK PROBLEMS) Arthritis, Chronic Back Pain, Fractures Endocrine: No HEENT: Yes Cataract Loss of Vision: Bilateral Hearing Impairment: Hard of Hearing Cancer: No Psychosocial: No Integumentary: Yes (Shingles) Blood Disorders: No Family Medical History Reviewed Nursing Family Hx Arthritis 19 MOTHER, Onset:Unknown Diabetes mellitus 19 FATHER, Onset:Unknown Myocardial infarction 19 FATHER, Onset:Unknown 19 MOTHER, Onset:Unknown Physical Exam Vital Signs Vital Signs - First Documented 11/21/18 09:29 Temp 99.5 Pulse 96 Resp 18 B/P (MAP) 158/85 (109) Capillary Refill : Less Than 3 Seconds Height, Weight, BMI Height: 5'7.00" Weight: 145lbs. 0.0oz. 65.610770pa; 25.1 BMI Method:Stated General Appearance: WD/WN, no apparent distress HEENT: PERRL/EOMI, pharynx normal Neck: supple, tender lateral Cardiovascular: regular rate, rhythm, no murmur Respiratory: lungs clear, normal breath sounds Gastrointestinal: non tender, soft Back: normal inspection, no CVA tenderness, no vertebral tenderness Extremities: no pedal edema, pelvis stable, other (mildly tender right pelvis area. Moderate tenderness to the right clavicle and shoulder.) Neurologic/Psychiatric: alert, oriented x 3 Skin: normal color, warm/dry Denzel Coma Score Best Eye Response: (4) Open Spontaneously Best Verbal Response: (5) Oriented Best Motor Response: (6) Obeys Commands Procedures/Interventions Suture Size: 4-0 Progress/Results/Core Measures Results/Orders Lab Results Laboratory Tests Test 11/21/18 11:29 Range/Units White Blood Count 12.5 H 4.3-11.0 10^3/uL Red Blood Count 4.22 L 4.35-5.85 10^6/uL Hemoglobin 12.4 11.5-16.0 G/DL Hematocrit 39 35-52 % Mean Corpuscular Volume 93 80-99 FL Mean Corpuscular Hemoglobin 29 25-34 PG Mean Corpuscular Hemoglobin Concent 32 32-36 G/DL Red Cell Distribution Width 12.2 10.0-14.5 % Platelet Count 368 130-400 10^3/uL Mean Platelet Volume 10.3 7.4-10.4 FL Neutrophils (%) (Auto) 92 H 42-75 % Lymphocytes (%) (Auto) 1 L 12-44 % Monocytes (%) (Auto) 6 0-12 % Eosinophils (%) (Auto) 0 0-10 % Basophils (%) (Auto) 0 0-10 % Neutrophils # (Auto) 11.5 H 1.8-7.8 X 10^3 Lymphocytes # (Auto) 0.2 L 1.0-4.0 X 10^3 Monocytes # (Auto) 0.8 0.0-1.0 X 10^3 Eosinophils # (Auto) 0.0 0.0-0.3 10^3/uL Basophils # (Auto) 0.1 0.0-0.1 10^3/uL Neutrophils % (Manual) 95 % Lymphocytes % (Manual) 2 % Monocytes % (Manual) 2 % Eosinophils % (Manual) 1 % Basophils % (Manual) 0 % Band Neutrophils 0 % Blood Morphology Comment NORMAL Sodium Level 138 135-145 MMOL/L Potassium Level 4.2 3.6-5.0 MMOL/L Chloride Level 104 98-107 MMOL/L Carbon Dioxide Level 19 L 21-32 MMOL/L Anion Gap 15 H 5-14 MMOL/L Blood Urea Nitrogen 27 H 7-18 MG/DL Creatinine 1.15 0.60-1.30 MG/DL Estimat Glomerular Filtration Rate 45 BUN/Creatinine Ratio 23 Glucose Level 111 H 70-105 MG/DL Calcium Level 9.7 8.5-10.1 MG/DL Corrected Calcium 10.1 8.5-10.1 MG/DL Total Bilirubin 0.5 0.1-1.0 MG/DL Aspartate Amino Transf (AST/SGOT) 16 5-34 U/L Alanine Aminotransferase (ALT/SGPT) 25 0-55 U/L Alkaline Phosphatase 93 40-136 U/L C-Reactive Protein High Sensitivity 5.47 H 0.00-0.50 MG/DL Total Protein 6.6 6.4-8.2 GM/DL Albumin 3.5 3.2-4.5 GM/DL My Orders Orders - JYOTI SANZ MD Ct Head/Cervical Spine Wo (11/21/18 09:38) Chest 1 View, Ap/Pa Only (11/21/18 09:38) Shoulder, Right, 3 Views (11/21/18 09:38) Pelvis (11/21/18 09:38) Clavicle, Right (11/21/18 10:41) Ed Iv/Invasive Line Start (11/21/18 11:20) Ns Iv 500 Ml (Sodium Chloride 0.9%) (11/21/18 11:20) Cbc With Automated Diff (11/21/18 11:20) Comprehensive Metabolic Panel (11/21/18 11:20) Hs C Reactive Protein (11/21/18 11:20) Manual Differential (11/21/18 11:29) Ct Chest Wo (11/21/18 13:02) Ketorolac Injection (Toradol Injection) (11/21/18 13:56) Medications Given in ED Current Medications Medications Dose Ordered Sig/Larisa Route Start Time Stop Time Status Last Admin Dose Admin Sodium Chloride 500 ml @ 0 mls/hr Q0M ONCE IV 11/21/18 11:20 11/21/18 11:22 DC 11/21/18 11:30 500 MLS/HR Vital Signs/I&O 11/21/18 09:29 Temp 99.5 Pulse 96 Resp 18 B/P (MAP) 158/85 (109) Blood Pressure Mean: 109 Progress Progress Note : Progress Note Seen and evaluated. We will check CT of the head and neck as well as x-ray the right shoulder, chest and pelvis. Monitor patient. Does have questionable mass on x-ray. CT of the chest was ordered. We went ahead and initiated IV and check labs as well. 1425: CT complete and does show bilateral masses concerning for cancer. I did discuss this with the patient and she states that she does not want to do anything about that and she would not want to pursue chemotherapy or surgery. We do have concerns related to her clavicle fracture that was noted on x-ray. Sling was placed patient did receive Toradol 15 mg IV for pain which did help. She lives alone and uses a walker for transport. She is obviously going to be unable to do this without at least some further training. Consideration for inpatient rehabilitation and certainly physical and occupational therapy are needed. I did discuss this with Dr. Boothe and she is agreeable to admitting patient observation status and having physical occupational therapy evaluation and treatment. We will also have inpatient rehabilitation evaluate patient for possible admission to their unit given her frequent falls and the clavicle fracture. I discussed all of the findings and concerns with Dr. Escalante, on-call for trauma surgery. We both agree that there is no further surgical-related therapy or trauma related evaluation or management needed at this time. He is available for consult if needed. All findings concerns discussed with patient who agrees. Patient requested DO NOT RESUSCITATE status. This was ordered. Diagnostic Imaging Diagonstic Imaging: CT Plain Films/CT/US/NM/MRI: c-spine, head Comments NAME: KYLEE VALDES [facility] REC#: [id number] PT STATUS: REG ER : 1930 PHYSICIAN: JYOTI SANZ MD ADMIT DATE: 11/21/18/ER Draft Date of Exam:11/21/18 CT HEAD/CERVICAL SPINE WO PROCEDURE: CT head and CT cervical spine without contrast. TECHNIQUE: Multiple contiguous axial images were obtained through the brain and cervical spine without the use of intravenous contrast. Sagittal and coronal reformations through the cervical spine were then performed. Auto Exposure Controls were utilized during the CT exam to meet ALARA standards for radiation dose reduction. INDICATION: Head and neck pain after a fall. COMPARISON: Right clavicle radiographs performed concurrently. CT head and cervical spine from 02/01/2018. FINDINGS: CT HEAD: No hyperdense hemorrhage or space-occupying mass. No hydrocephalus or midline shift. 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 The periventricular white matter hypoattenuation is compatible with chronic microvascular ischemic disease. No acute skull fracture. The mastoid air cells are clear. Right-sided lens surgery has been performed. Otherwise, the orbits are normal. The paranasal sinuses are also clear. CT CERVICAL SPINE: No fracture or traumatic malalignment in the cervical spine. No high-grade spinal stenosis. Varying degrees of mild to moderate foraminal narrowing due to facet and uncovertebral joint hypertrophy. Thyroid is normal. Mildly displaced right mid clavicular fracture is better evaluated on right clavicle radiographs performed concurrently. Scarring is present in both lung apices, greater on the right. IMPRESSION: 1. No acute intracranial process or skull fracture. 2. No acute fracture or traumatic malalignment in the cervical spine. 3. Mildly displaced right mid clavicular fracture is more completely detailed on the clavicle radiograph report, dictated separately. Dictated on workstation # [id number] Dict: 11/21/18 1103 Trans: 11/21/18 1113 [id number] Interpreted by: NOELLE LOWE MD Electronically signed by: [facility]: Xray Plain Films/CT/US/NM/MRI: chest Comments [facility], [place] NAME: KYLEE VALDES [facility] REC#: [id number] PT STATUS: REG ER : 1930 PHYSICIAN: JYOTI SANZ MD ADMIT DATE: 11/21/18/ER Draft Date of Exam:11/21/18 CHEST 1 VIEW, AP/PA ONLY EXAMINATION: Chest, 1 view. HISTORY: Fall. COMPARISON: 05/06/2018. FINDINGS: There are bilateral interstitial opacities, similar to the prior exam. This may represent scarring or mild edema. There is a 3.5 x 2.9 cm masslike lesion projecting over the heart. There is likely a small right pleural effusion. No pneumothorax is seen. The heart size is normal. IMPRESSION: Masslike opacity projecting over the heart, recommend CT for further evaluation. Dictated on workstation # [id number] Dict: 11/21/18 1107 Trans: 11/21/18 1111 [id number] Interpreted by: KAVITA GUERRERO MD Electronically signed by: [facility]: Xray Plain Films/CT/US/NM/MRI: other Comments [facility], [place] NAME: KYLEE VALDES [facility] REC#: [id number] PT STATUS: REG ER : 1930 PHYSICIAN: JYOTI SANZ MD ADMIT DATE: 11/21/18/ER Draft Date of Exam:11/21/18 CLAVICLE, RIGHT INDICATION: Fall with right clavicle pain. TECHNIQUE: AP and angled views of the right clavicle were obtained at 1051 hours. FINDINGS: There is an acute midshaft fracture of the right clavicle with oblique orientation and mild overlapping of the fracture fragments. Underlying degenerative change of the right glenohumeral joint is noted. IMPRESSION: Acute right clavicle fracture as described above. Dictated on workstation # [id number] Dict: 11/21/18 1104 Trans: 11/21/187 [id number] Interpreted by: OLEGARIO GLYNN MD Electronically signed by: [facility]: Xray Plain Films/CT/US/NM/MRI: other Comments [facility], [place] NAME: KYLEE VALDES [facility] REC#: [id number] PT STATUS: REG ER : 1930 PHYSICIAN: JYOTI SANZ MD ADMIT DATE: 11/21/18/ER Draft Date of Exam:11/21/18 SHOULDER, RIGHT, 3 VIEWS INDICATION: Fall with right shoulder pain AP, oblique, and transscapular views of the right shoulder obtained and compared to 10/10/2018. There is chronic deformity of the humeral head with severe degenerative change of the glenohumeral joint. AC joint shows moderate degenerative change. There is an acute fracture of the midshaft of the right clavicle with oblique orientation with some overlapping of the fracture fragments. IMPRESSION: Advanced degenerative change of the glenohumeral joint. Acute midshaft right clavicle fracture. Dictated on workstation # [id number] Dict: 11/21/18 1103 Trans: 11/21/18 1107 CLAIRE [id number] Interpreted by: OLEGARIO GLYNN MD Electronically signed by: [facility]: Xray Plain Films/CT/US/NM/MRI: pelvis Comments [facility] [place] NAME: KYLEE VALDES [facility] REC#: [id number] PT STATUS: REG ER : 1930 PHYSICIAN: JYOTI SANZ MD ADMIT DATE: 11/21/18/ER Draft Date of Exam:11/21/18 PELVIS INDICATION: Fall. TECHNIQUE: An AP pelvis was obtained at 1043 hours. FINDINGS: No acute fracture or acute bony abnormality is seen. Vascular stents are visualized over the left groin. There is advanced degenerative change of the right hip joint with joint space narrowing and subchondral sclerosis. IMPRESSION: No acute fracture of the pelvis. Advanced degenerative change of the right hip joint is noted. Dictated on workstation # [id number] Dict: 11/21/18 1106 Trans: 11/21/18 1108 [id number] Interpreted by: OLEGARIO GLYNN MD Electronically signed by: Amynsgumaro Imaging: CT Plain Films/CT/US/NM/MRI: chest, abdomen Comments [facility] [place] [place] NAME: KYLEE VALDES [facility] REC#: [id number] PT STATUS: REG ER : 1930 PHYSICIAN: JYOTI SANZ MD ADMIT DATE: 11/21/18/ER Draft Date of Exam:11/21/18 CT CHEST WO PROCEDURE: CT chest without contrast. TECHNIQUE: Multiple contiguous axial images were obtained through the chest without the use of intravenous contrast. Auto Exposure Controls were utilized during the CT exam to meet ALARA standards for radiation dose reduction. INDICATION: Fall, chest injury. Abnormality on radiographs. COMPARISON: Radiographs from the same day. FINDINGS: The heart is normal in size. There is extensive coronary atherosclerosis and moderate aortic atherosclerosis. No aneurysm is seen. There are multiple mildly prominent mediastinal lymph nodes, this includes a left lower paratracheal lymph node measuring 13 x 11 mm (image 22 series 2), and a subcarinal lymph node measuring 20 x 10 mm in size (image 28 series 2). No supraclavicular adenopathy is seen. There are calcified lymph nodes in the left hilum. There is extensive interstitial prominence throughout the lungs bilaterally, with scarring particularly in the right upper lobe. There is dependent atelectasis bilaterally. No significant pleural effusion is seen. There is a mass-like density in the lateral right lower lobe which measures 5.8 x 3.4 cm in size, abutting the pleura. There appear to be internal bronchi. There is also a mass-like density in the left lower lobe which measures 3.7 x 2.6 cm in size. This contains a small associated calcification. Multiple additional calcified granulomas are seen in the left lower lobe. Imaged portions of the upper abdomen demonstrate mild extrahepatic and intrahepatic biliary dilatation, which may be in part due to age and postcholecystectomy changes. nonobstructing calculi are seen in the left kidney. The right kidney appears mildly atrophic. Postsurgical changes are seen in the anterior abdomen. There is diffuse osteopenia. No acute osseous abnormality is seen. There are degenerative changes throughout the spine. Severe degenerative changes are seen in the right glenohumeral joint. There is mild deformity in the right lower ribs which appears chronic. IMPRESSION: 1. Mass-like densities in the bilateral lower lobes. Although there is evidence of prior granulomatous disease, malignancy must be excluded and biopsy is recommended. 2. Emphysematous changes and scarring in the lungs bilaterally, particularly the right upper lobe. 3. Nonspecific mildly prominent mediastinal lymph nodes, may be reactive. 4. Biliary dilatation may be secondary to postcholecystectomy changes. Right renal atrophy. Dictated on workstation # [id number] Dict: 11/21/18 1345 Trans: 11/21/18 1407 [id number] [id number] Interpreted by: EDGAR MCCOLLUM MD Electronically signed by: Reviewed: Reviewed by Ia Departure Communication (Admissions) Time/Spoke to Admitting Phy: 14:25 Impression Primary Impression: Right clavicle fracture Qualified Codes: S42.021A - Displaced fracture of shaft of right clavicle, initial encounter for closed fracture Additional Impressions: Frequent falls Mass of lower lobe of left lung Mass of lower lobe of right lung Disposition: 09 ADMITTED INPATIENT Condition: Stable Admissions Decision to Admit Reason: Admit from ER (General) Decision to Admit/Date: Nov 21, 2018 Time/Decision to Admit Time: 14:25 Departure-Patient Inst. Referrals: KAVITA PHILIP MD (PCP) Primary Care Physician JYOTI SANZ MD Nov 21, 2018 10:04
--- NOTE | 2018-11-21 11:08 | Diagnostic Imaging Report ---
INDICATION: Fall with right clavicle pain. TECHNIQUE: AP and angled views of the right clavicle were obtained at 1051 hours. FINDINGS: There is an acute midshaft fracture of the right clavicle with oblique orientation and mild overlapping of the fracture fragments. Underlying degenerative change of the right glenohumeral joint is noted. IMPRESSION: Acute right clavicle fracture as described above. Dictated by: Dictated on workstation # [id number]
--- NOTE | 2018-11-21 11:08 | Diagnostic Imaging Report ---
INDICATION: Fall with right shoulder pain AP, oblique, and transscapular views of the right shoulder obtained and compared to 10/10/2018. There is chronic deformity of the humeral head with severe degenerative change of the glenohumeral joint. AC joint shows moderate degenerative change. There is an acute fracture of the midshaft of the right clavicle with oblique orientation with some overlapping of the fracture fragments. IMPRESSION: Advanced degenerative change of the glenohumeral joint. Acute midshaft right clavicle fracture. Dictated by: Dictated on workstation # [id number]
--- NOTE | 2018-11-21 11:09 | Diagnostic Imaging Report ---
INDICATION: Fall. TECHNIQUE: An AP pelvis was obtained at 1043 hours. FINDINGS: No acute fracture or acute bony abnormality is seen. Vascular stents are visualized over the left groin. There is advanced degenerative change of the right hip joint with joint space narrowing and subchondral sclerosis. IMPRESSION: No acute fracture of the pelvis. Advanced degenerative change of the right hip joint is noted. Dictated by: Dictated on workstation # [id number]
--- NOTE | 2018-11-21 11:11 | Diagnostic Imaging Report ---
EXAMINATION: Chest, 1 view. HISTORY: Fall. COMPARISON: 05/06/2018. FINDINGS: There are bilateral interstitial opacities, similar to the prior exam. This may represent scarring or mild edema. There is a 3.5 x 2.9 cm masslike lesion projecting over the heart. There is likely a small right pleural effusion. No pneumothorax is seen. The heart size is normal. IMPRESSION: Masslike opacity projecting over the heart, recommend CT for further evaluation. Dictated by: Dictated on workstation # [id number]
--- NOTE | 2018-11-21 11:13 | Diagnostic Imaging Report ---
PROCEDURE: CT head and CT cervical spine without contrast. TECHNIQUE: Multiple contiguous axial images were obtained through the brain and cervical spine without the use of intravenous contrast. Sagittal and coronal reformations through the cervical spine were then performed. Auto Exposure Controls were utilized during the CT exam to meet ALARA standards for radiation dose reduction. INDICATION: Head and neck pain after a fall. COMPARISON: Right clavicle radiographs performed concurrently. CT head and cervical spine from 02/01/2018. FINDINGS: CT HEAD: No hyperdense hemorrhage or space-occupying mass. No hydrocephalus or midline shift. 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 The periventricular white matter hypoattenuation is compatible with chronic microvascular ischemic disease. No acute skull fracture. The mastoid air cells are clear. Right-sided lens surgery has been performed. Otherwise, the orbits are normal. The paranasal sinuses are also clear. CT CERVICAL SPINE: No fracture or traumatic malalignment in the cervical spine. No high-grade spinal stenosis. Varying degrees of mild to moderate foraminal narrowing due to facet and uncovertebral joint hypertrophy. Thyroid is normal. Mildly displaced right mid clavicular fracture is better evaluated on right clavicle radiographs performed concurrently. Scarring is present in both lung apices, greater on the right. IMPRESSION: 1. No acute intracranial process or skull fracture. 2. No acute fracture or traumatic malalignment in the cervical spine. 3. Mildly displaced right mid clavicular fracture is more completely detailed on the clavicle radiograph report, dictated separately. Dictated by: Dictated on workstation # [id number]
[2018-11-21] MEDS ORDERED: NS IV 500 ML 500 ML IV ONE (11:20)
[2018-11-21 11:35] LABS: BASOPHILS # (AUTO) 0.1 10^3/uL (0.0-0.1); BASOPHILS % (AUTO) 0 % (0-10); EOSINOPHILS % (AUTO) 0 % (0-10); HEMATOCRIT 39 % (35-52); HEMOGLOBIN 12.4 G/DL (11.5-16.0); LYMPHOCYTES # (AUTO) 0.2 X 10^3 (1.0-4.0); LYMPHOCYTES % (AUTO) 1 % (12-44); MEAN CORPUSCULAR HEMOGLOBIN 29 PG (25-34); MEAN CORPUSCULAR HGB CONC 32 G/DL (32-36); MEAN CORPUSCULAR VOLUME 93 FL (80-99); MEAN PLATELET VOLUME 10.3 FL (7.4-10.4); MONOCYTES # (AUTO) 0.8 X 10^3 (0.0-1.0); MONOCYTES % (AUTO) 6 % (0-12); NEUTROPHILS # (AUTO) 11.5 X 10^3 (1.8-7.8); NEUTROPHILS % (AUTO) 92 % (42-75); PLATELET COUNT 368 10^3/uL (130-400); RED CELL DISTRIBUTION WIDTH 12.2 % (10.0-14.5); WHITE BLOOD COUNT 12.5 10^3/uL (4.3-11.0)
--- NOTE | 2018-11-21 11:58 | NUR ---
PT ASSITED TO BSC, PT DENIES ANY NEEDS OR C/O AT THIS TIME, PT HAS NO NEEDS OR C/O AT THIS TIME, VS ASSESSED AND STABLE, WILL CONTINUE TO MONITOR
[2018-11-21 12:00] LABS: ALBUMIN 3.5 GM/DL (3.2-4.5); BAND NEUTROPHILS 0 %; BASOPHILS % (MANUAL) 0 %; BILIRUBIN,TOTAL 0.5 MG/DL (0.1-1.0); CALCIUM 9.7 MG/DL (8.5-10.1); CREATININE SERUM 1.15 MG/DL (0.60-1.30); EOSINOPHILS % (MANUAL) 1 %; LYMPHOCYTES % (MANUAL) 2 %; MONOCYTES % (MANUAL) 2 %; NEUTROPHILS % (MANUAL) 95 %; POTASSIUM 4.2 MMOL/L (3.6-5.0); RBC MORPH NORMAL; TOTAL PROTEIN 6.6 GM/DL (6.4-8.2)
[2018-11-21] MEDS ORDERED: KETOROLAC 30 MG/ML VIAL IVP STA (13:56)
--- NOTE | 2018-11-21 14:07 | Diagnostic Imaging Report ---
PROCEDURE: CT chest without contrast. TECHNIQUE: Multiple contiguous axial images were obtained through the chest without the use of intravenous contrast. Auto Exposure Controls were utilized during the CT exam to meet ALARA standards for radiation dose reduction. INDICATION: Fall, chest injury. Abnormality on radiographs. COMPARISON: Radiographs from the same day. FINDINGS: The heart is normal in size. There is extensive coronary atherosclerosis and moderate aortic atherosclerosis. No aneurysm is seen. There are multiple mildly prominent mediastinal lymph nodes, this includes a left lower paratracheal lymph node measuring 13 x 11 mm (image 22 series 2), and a subcarinal lymph node measuring 20 x 10 mm in size (image 28 series 2). No supraclavicular adenopathy is seen. There are calcified lymph nodes in the left hilum. There is extensive interstitial prominence throughout the lungs bilaterally, with scarring particularly in the right upper lobe. There is dependent atelectasis bilaterally. No significant pleural effusion is seen. There is a mass-like density in the lateral right lower lobe which measures 5.8 x 3.4 cm in size, abutting the pleura. There appear to be internal bronchi. There is also a mass-like density in the left lower lobe which measures 3.7 x 2.6 cm in size. This contains a small associated calcification. Multiple additional calcified granulomas are seen in the left lower lobe. Imaged portions of the upper abdomen demonstrate mild extrahepatic and intrahepatic biliary dilatation, which may be in part due to age and postcholecystectomy changes. nonobstructing calculi are seen in the left kidney. The right kidney appears mildly atrophic. Postsurgical changes are seen in the anterior abdomen. There is diffuse osteopenia. No acute osseous abnormality is seen. There are degenerative changes throughout the spine. Severe degenerative changes are seen in the right glenohumeral joint. There is mild deformity in the right lower ribs which appears chronic. IMPRESSION: 1. Mass-like densities in the bilateral lower lobes. Although there is evidence of prior granulomatous disease, malignancy must be excluded and biopsy is recommended. 2. Emphysematous changes and scarring in the lungs bilaterally, particularly the right upper lobe. 3. Nonspecific mildly prominent mediastinal lymph nodes, may be reactive. 4. Biliary dilatation may be secondary to postcholecystectomy changes. Right renal atrophy. Dictated by: Dictated on workstation # [id number]
--- NOTE | 2018-11-21 14:13 | NUR ---
SLING APPLIED TO R ARM PER PHYSICIAN REQUEST, PT SUNDAY WELL
--- OUTSIDE RECORDS SUMMARY | 2018-11-21 14:58 | XMS REPORT | Continuity of Care Document ---
Author Organization Unknown Address Unknown Phone Unavailable Allergies Active Description Code Type Severity Reaction Onset Reported/Identified Relationship to Patient Clinical Status Yes atenolol [id number] Drug Allergy Mild DOSEN'T WANT 03/29/2007 Yes NITROPATCH NITROPATCH Mild DOESN'T WANT 03/29/2007 Yes codeine [id number] Drug Allergy Mild NAUSEA, HEADACH 04/05/2007 Yes codeine [id number] Drug Allergy Unknown NAUSEA 10/08/2016 Yes codeine [id number] Drug Allergy Mild NAUSEA 05/05/2018 Yes diltiazem [id number] Drug Allergy Mild DOESN'T WANT 05/05/2018 Yes indomethacin [id number] Drug Allergy Mild DOESN'T WANT 05/05/2018 Yes propranolol [id number] Drug Allergy Mild DOESN'T WANT 05/05/2018 Yes atenolol [id number] Drug Allergy Unknown N/A 05/05/2018 Yes morphine [id number] Drug Allergy Unknown N/A 05/05/2018 Medications There [...] Ot 709.2 SCAR FIBROSIS OF SKIN 08/17/2014 [place] DO JAJA Michelle Ot 414.00 CORON ATHEROSCLER NOS TYPE VESSEL, NATIV 08/17/2014 JAMES DO JAJA K Ot 793.19 OTHER NONSPECIFIC ABNORMAL FINDING OF TRICIA 08/17/2014 JAMES JAJA SANCHES Ot 805.02 FX C2 VERTEBRA-CLOSED 08/17/2014 JAMES DO JAJA K Ot 845.00 SPRAIN OF ANKLE NOS 08/17/2014 [place] AJJA SANCHES Ot 920 CONTUSION FACE/SCALP/NCK 08/17/2014 [facility] JAJA K Ot 923.00 CONTUSION SHOULDER REG 08/17/2014 [facility] JAJA K Ot 924.01 CONTUSION OF HIP 08/17/2014 [facility] JAJA K Ot 959.09 INJURY OF FACE [...] SHANTANU E Ot 414.01 CORONARY ATHEROSCLEROSIS OF [place] CORON 09/03/2014 SHANTANU MURRAY MD Ot 564.00 [...] PHILIP MD Ot 414.01 CORONARY ATHEROSCLEROSIS OF [place] CORON 10/31/2014 KAVITA PHILIP MD Ot 682.6 [...] PHILIP MD Ot 414.01 CORONARY ATHEROSCLEROSIS OF [place] CORON 11/05/2014 KAVITA PHILIP MD Ot 682.6 [...] SHANTANU E Ot 564.00 11/12/2014 TREVOR VILLANUEVA SHANATNU E Ot 682.6 11/12/2014 TREVOR VILLANUEVA SHANTANU E Ot 724.5 11/12/2014 TREVOR VILLANUEVA SHANTANU E Ot V45.82 11/12/2014 TREVOR VILLANUEVA, SHANTANU E Ot V54.17 11/12/2014 TREVOR VILLANUEVA SHANTANU E Ot V57.89 11/13/2014 TREVOR VILLANUEVA, SHANTANU E Ot 272.4 HYPERLIPIDEMIA NEC/NOS 11/13/2014 TREVOR VILLANUEVA, SHANTANU E Ot 401.9 HYPERTENSION NOS 11/13/2014 TREVOR VILLANUEVA, SHANTANU E Ot 414.01 CORONARY ATHEROSCLEROSIS OF [place] CORON 11/13/2014 TREVOR VILLANUEVA, SHANTANU E Ot [...] 01/22/2015 KAVITA PHILIP MD Ot 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 01/22/2015 KAVITA PHILIP MD Ot 457.1 OTHER LYMPHEDEMA 01/22/2015 KAVITA PHILIP MD Ot 707.12 ULCER OF CALF 01/22/2015 KAVITA PHILIP MD Ot 998.83 NON-HEALING SURG WOUND 01/28/2015 KAVITA PHILIP MD Ot 440.23 01/28/2015 KAVITA PHILIP MD Ot 457.1 01/28/2015 KAVITA PHILIP MD Ot 707.12 01/28/2015 KAVITA PHILIP MD Ot 998.83 02/11/2015 KAVITA PHILIP MD Ot I70.232 ATHSCL [place] ARTERIES OF RIGHT LEG W UL 02/11/2015 [...] E Ot I25.10 ATHSCL HEART DISEASE OF [place] CORONARY 10/14/2016 TREVOR VILLANUEVA, SHANTANU E Ot [...] E Ot I25.10 ATHSCL HEART DISEASE OF [place] CORONARY 10/14/2016 SHANTANU MURRAY MD E Ot [...] E Ot I25.10 ATHSCL HEART DISEASE OF [place] CORONARY 10/14/2016 MURRAY MD, SHANTANU E Ot [...] E Ot I25.10 ATHSCL HEART DISEASE OF [place] CORONARY 10/15/2016 MAO MURRAY MDIC E Ot [...] E Ot I25.10 ATHSCL HEART DISEASE OF [place] CORONARY 10/21/2016 SHANTANU MURRAY MD E Ot [...] E Ot I25.10 ATHSCL HEART DISEASE OF [place] CORONARY 10/21/2016 SHANTANU MURRAY MD E Ot [...] VASCULAR ANGIOPLASTY STATUS W 01/14/2017 ARIEL GUERRERO UPPER TRIMMER Ot M54.2 CERVICALGIA 01/14/2017 ARIEL GUERRERO UPPER TRIMMER Ot M54.5 LOW BACK PAIN 01/14/2017 KAVITA PHILIP MD Ot M47.816 SPONDYLOSIS W/O MYELOPATHY OR RADICULOPA 01/14/2017 KAVITA PHILIP MD Ot S32.020A WEDGE COMPRESSION FRACTURE OF SECOND LUM 01/14/2017 KAVITA PHILIP MD Ot X58.XXXA EXPOSURE TO OTHER SPECIFIED FACTORS, INI 01/14/2017 KAVITA PHILIP MD Ot Y99.8 OTHER EXTERNAL CAUSE STATUS 01/19/2017 ARIEL GUERRERO UPPER TRIMMER Ot M54.2 CERVICALGIA 01/19/2017 ARIEL GUERRERO UPPER TRIMMER Ot M54.5 LOW BACK PAIN 01/19/2017 KAVITA PHILIP MD Ot M47.816 SPONDYLOSIS W/O MYELOPATHY OR RADICULOPA 01/19/2017 KAVITA PHILIP MD Ot S32.020A WEDGE COMPRESSION FRACTURE OF SECOND LUM 01/19/2017 KAVITA PHILIP MD Ot X58.XXXA EXPOSURE TO OTHER SPECIFIED FACTORS, INI 01/19/2017 KAVITA PHILIP MD Ot Y99.8 OTHER EXTERNAL CAUSE STATUS 01/22/2017 ARIEL GUERRERO UPPER TRIMMER Ot M54.2 CERVICALGIA 01/22/2017 ARIEL GUERRERO UPPER TRIMMER Ot M54.5 LOW BACK PAIN 01/31/2017 ARIEL GUERRERO UPPER TRIMMER Ot M54.2 CERVICALGIA 01/31/2017 ARIEL GUERRERO UPPER TRIMMER Ot M54.5 LOW BACK PAIN 03/18/2017 ARIEL GUERRERO UPPER TRIMMER Ot M54.2 CERVICALGIA 03/18/2017 YOLANDA, ARIEL R UPPER TRIMMER Ot M54.5 LOW BACK PAIN 03/24/2017 YOLANDA ARIEL R UPPER TRIMMER Ot M54.2 CERVICALGIA 03/24/2017 YOLANDA, ARIEL R UPPER TRIMMER Ot M54.5 LOW BACK PAIN 04/28/2017 YOLANDA, ARIEL R UPPER TRIMMER Ot M54.2 CERVICALGIA 04/28/2017 YOLANDA ARIEL R UPPER TRIMMER Ot M54.5 LOW BACK PAIN 02/01/2018 ANTONY MCCALLUM MD Ot E78.00 PURE HYPERCHOLESTEROLEMIA, UNSPECIFIED 02/01/2018 ANTONY MCCALLUM MD Ot I10 ESSENTIAL (PRIMARY) HYPERTENSION 02/01/2018 ANTONY MCCALLUM MD, Ot I25.10 ATHSCL HEART DISEASE OF [place] CORONARY 02/01/2018 ANTONY MCCALLUM MD Ot I73.9 [...] IMMUNIZATION 02/01/2018 ANTONY MCCALLUM MD Ot Z79.82 HALFWAY (CURRENT) USE OF ASPIRIN 02/01/2018 ANTONY MCCALLUM [...] MD, Ot I25.10 ATHSCL HEART DISEASE OF [place] CORONARY 02/10/2018 ANTONY MCCALLUM MD, Ot I73.9 [...] IMMUNIZATION 02/10/2018 ANTONY MCCALLUM MD, Ot Z79.82 SOLAR SITE ASSESSMENT SPECIALIST (CURRENT) USE OF ASPIRIN 02/10/2018 ANTONY MCCALLUM [...] AMY VILLANUEVA, ROBBY Yousif Ot 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 02/27/2018 ROBBY REYES [...] MD Ot I25.10 ATHSCL HEART DISEASE OF [place] CORONARY 05/09/2018 LESLEE HANCOCK MD Ot I50.21 ACUTE SYSTOLIC (CONGESTIVE) HEART FAILUR 05/09/2018 LESLEE HANCOCK MD Ot I73.9 PERIPHERAL VASCULAR DISEASE, UNSPECIFIED 05/09/2018 LESLEE HANCOCK MD Ot J10.00 FLU DUE TO OTH IDENT FLU VIRUS W UNSP TY 05/09/2018 LESLEE HANCOCK MD Ot J12.89 OTHER VIRAL PNEUMONIA 05/09/2018 LESLEE HANCOCK MD Ot J96.02 ACUTE RESPIRATORY [...] MD Ot I25.10 ATHSCL HEART DISEASE OF [place] CORONARY 05/12/2018 LESLEE HANCOCK MD Ot I73.9 [...] MD Ot I25.10 ATHSCL HEART DISEASE OF [place] CORONARY 05/12/2018 LESLEE HANCOCK MD Ot I73.9 [...] MD, Ot I25.10 ATHSCL HEART DISEASE OF [place] CORONARY 05/12/2018 LESLEE HANCOCK MD, Ot I73.9 [...] Performed By Performed On 83.02 MYOTOMY 10/28/2014 [id number] INTRODUCTION OF ANTI-INFLAMMATORY INTO J 10/15/2016 Results [...] NRG Blood erythrocyte morphology finding identification [facility] Comprehensive metabolic panel - 10/07/16 20:10 Serum [...] culture - 10/08/16 12:00 Bacterial urine culture [id number] NRG COLONY COUNT 10,000/ML - 100,000/ML NRG [...] Status Pt. Type Provider Facility Loc./Unit Complaint [id number] 10/10/2018 11:06:00 10/10/2018 23:59:59 CLS Outpatient PRINCESS DUNN, JIMI Justin [facility] RAD RIGHT SHOULDER PAIN [id number] 05/06/2018 11:56:00 05/09/2018 15:10:00 DIS Inpatient SANTI VILLANUEVA, LESLEE Beckford [facility] 4TH INFLUENZA B;HYPOXIA [id number] 04/28/2018 14:51:00 04/28/2018 16:27:00 DIS Outpatient KAVITA PHILIP MD [facility] REHAB URINARY INCONTINENCE [id number] 02/08/2018 11:14:00 02/08/2018 11:35:00 DIS Emergency PHOEBE PULIDO APRN [facility] ER SUTURE REMOVAL [id number] 02/01/2018 09:44:00 02/01/2018 13:00:00 DIS Emergency ANTONY MCCALLUM MD [facility] ER FALL [id number] 04/29/2017 00:20:00 04/29/2017 23:59:59 CLS Preadmit ARIEL GUERRERO APRN [facility] REHAB LBP; CERVICALGIA [id number] 03/11/2017 14:31:00 04/28/2017 00:01:00 DIS Outpatient ARIEL GUERRERO APRN [facility] REHAB LBP; CERVICALGIA [id number] 01/17/2017 15:44:00 01/22/2017 00:01:00 DIS Outpatient ARIEL GUERRERO APRN [facility] REHAB LBP; CERVICALGIA [id number] 12/22/2016 14:57:00 12/22/2016 23:59:59 CLS Outpatient KAVITA PHILIP MD [facility] RAD PAIN LOW BACK [id number] 10/08/2016 15:46:00 10/21/2016 13:50:00 DIS Inpatient SHANTANU MURRAY MD [facility] IRF DEBILITY [id number] 10/07/2016 18:17:00 10/08/2016 15:45:00 DIS Inpatient COLLEEN OVIEDO DO [facility] 4TH FALL,SCULP HEMATOMA,SEVERE R HIP PAIN AND INABILIT [id number] 03/26/2016 14:29:00 03/26/2016 15:44:00 DIS Outpatient KAVITA PHILIP MD [facility] REHAB LBP;CERVICALGIA [id number] 01/21/2016 13:24:00 01/23/2016 17:00:00 DIS Outpatient KAVITA PHILIP MD [facility] REHAB LBP;CERVICALGIA [id number] 02/11/2015 13:19:00 02/11/2015 15:00:00 DIS Outpatient KAVITA PHILIP MD [facility] WOUNDCARE [id number] 01/21/2015 13:17:00 01/22/2015 00:01:00 DIS Outpatient KAVITA PHILIP MD [facility] WOUNDCARE [id number] 11/29/2014 09:10:00 11/29/2014 23:59:59 CLS Outpatient ROBBY REYES MD [facility] RAD LEG ULCER/ PAD [id number] 11/05/2014 13:21:00 11/13/2014 13:30:00 DIS Inpatient SHANTANU MURRAY MD [facility] IRF WEAKNESS [id number] 10/31/2014 08:18:00 11/05/2014 12:00:00 DIS Inpatient KAVITA PHILIP MD [facility] SURGICAL SWB--RT LEG ABSCESS,CELLULITIS [id number] 10/24/2014 18:39:00 10/31/2014 08:09:00 DIS Inpatient KAVITA PHILIP MD [facility] SURGICAL RT LEG ABSCESS,CELLULITIS [id number] 10/21/2014 14:32:00 10/21/2014 23:59:59 CLS Outpatient KAVITA PHILIP MD [facility] HH POSSIBLE WOUND INFECTION [id number] 08/22/2014 16:43:00 09/03/2014 13:45:00 DIS Inpatient SHANTANU MURRAY MD [facility] IRF DEBILITY [id number] 08/17/2014 19:21:00 08/17/2014 21:50:00 DIS Emergency JAMES DO, JAJA K [facility] ER FALL [id number] 09/07/2013 07:05:00 09/07/2013 10:55:00 DIS Outpatient ANGELA DPM, LIAM Q [facility] SOFT TISSUE LESION RIGHT FOOT [id number] 09/05/2013 12:25:00 09/05/2013 23:59:59 CLS Outpatient ANGELA DPShakeel LIAM Q [facility] PREOP SOFT TISSUE LESION RIGHT FOOT [id number] 05/23/2013 08:11:00 05/23/2013 12:45:00 DIS Outpatient ELVIRA BAINS MD [facility] CHANGE IN BOWEL HABIT;BLOOD IN STOOL [id number] 05/16/2013 07:22:00 05/16/2013 23:59:59 CLS Outpatient ELVIRA BAINS MD [facility] PREOP CHANGE IN BOWEL HABIT;BLOOD IN STOOL [id number] 11/20/2018 14:29:00 ACT Outpatient KAVITA PHILIP MD [facility] REHAB GAIT INSTABILITY AND R SHOULDER PAIN [id number] 03/27/2012 11:57:00 Document Registration [id number] 01/21/2012 09:11:00 Document Registration [id number] 11/22/2011 09:52:00 Document Registration [id number] 05/04/2010 10:30:00 Document Registration [email or web address] 02/04/2015 13:33:42 ACT Document Registration
--- NOTE | 2018-11-21 15:04 | NUR ---
REPORT GIVEN TO SELENA
--- NOTE | 2018-11-21 15:27 | NUR ---
KYLEE VALDES admitted to room 414-1, with an admitting diagnosis of frequent falls , on 11/21/18 from ED via stretcher , accompanied by staff.KYLEE VADLES introduced to surroundings, call light, bed controls, phone, TV, temperature control, lights, meal times, smoking policy, visitor policy, side rail policy, bathrooms and showers. Patient Rights given to patient in the handbook. KYLEE VALDES verbalizes understanding that [facility] is not responsible for the loss or damage to any personal effects or valuables that are kept in the patients posession during their hospitalization. The following Patient Care Plans and discharge were discussed with the patient. KYLEE VALDES verbalizes understanding of Interdisciplinary Patient Education. Patient informed about the Rapid Response Team and its purpose.
[2018-11-21] MEDS ORDERED: ACETAMINOPHEN 325 MG TABLET PO PRN (15:30)
[2018-11-21] MEDS ORDERED: ONDANSETRON 4 MG/2 ML (SDV) Z0FRAN IV PRN (15:30)
[2018-11-21] MEDS ORDERED: CATHETER FLUSH 10 ML SYR IV PRN (15:30)
[2018-11-21] MEDS ORDERED: ATOR40TA70 PO (15:56)
[2018-11-21 16:00] VITALS: BP 133/62
[2018-11-21] MEDS ORDERED: ASPI-999 PO (16:00)
[2018-11-21] MEDS ORDERED: CLOP75TA69 PO (16:00)
[2018-11-21] MEDS ORDERED: SACU1TAB PO (16:00)
[2018-11-21] MEDS ORDERED: SPIR25TA5 PO (16:00)
[2018-11-21] MEDS ORDERED: METO-395 PO (16:00)
--- NOTE | 2018-11-21 16:10 | Physical Therapy Evaluation ---
PT Evaluation-General Medical Diagnosis Admission Date Nov 21, 2018 at 14:51 Medical Diagnosis: right clavicle fracture Onset Date: Nov 21, 2018 Therapy Diagnosis Therapy Diagnosis: debility/weakness Height/Weight Height (Feet): 5 Height (Inches): 7.00 Weight (Pounds): 145 Weight (Ounces): 0.0 Precautions Precautions/Isolations: Standard Precautions Referral Physician: Tl Reason for Referral: Evaluation/Treatment Medical History Pertinent Medical History: Arthritis, CAD, COPD, Diverticulitis, Fractures, GERD, HTN, IA, Neuropathy Additional Medical History cervical fracture prior Current History Fall at home x 3 while chasing a bug per patient report resulting in right clavicle fracture Reviewed History: Yes Social History Home: Single Level Current Living Status: Alone Entry Into Home: Stairs With Railing PT Steps Into Home: 3 Prior/Core FIM Prior Level of Function Therapy Code Descriptions/Definitions Functional [place] Measure: 0=Not Assessed/NA 4=Minimal Assistance 1=Total Assistance 5=Supervision or Setup 2=Maximal Assistance 6=Modified [place] 3=Moderate Assistance 7=Complete [place] Therapy Quality Codes: 6 Independent with activity with or without an assistive device 5 Patient requires set up or clean up by helper. Patient completes activity by themselves 4 Supervision or touching assist (CGA). [place] provide cues , steadying assist 3 The helper provides less than half the effort to complete the activity 2 The helper provides more than half the effort to complete the activity 1 Dependent. The helper does all the effort to complete an activity 7 Patient refused to complete or attempt activity 9 The patient did not perform the activity before the current illness or injury 88 Not attempted due to Medical conditions or safety concerns Functional Abilities and Goals: Independent: Patient completed the activities by him/herself, with or without an assistive device, with no assistance from a helper. Needed Some Help: Patient needed partial assistance from another person to complete activities. Dependent: A helper completed the activities for the patient. Unknown: Not Applicable: Bed Mobility: 6 Transfers (B,C,W/C) (FIM): 6 Gait: 6 Stairs: 6 Indoor Mobility (Ambulation): Independent Stairs: Independent Prior Devices Use: Walker PT Evaluation-Current Subjective Patient agrees to PT. Pain Numeric Pain Scale: 3 Location: Right Location Body Site: Shoulder (clavicle) Pain Description: Acute Objective Patient Orientation: Normal For Age Problem Solving: Fair ROM/Strength ROM Lower Extremities bilateral LE WFL Strength Lower Extremities 3+/5 grossly bilaterally Integumentary/Posture Integumentary refer to nursing notes Bowel Incontinence: No Bladder Incontinence: No Posture cervical flexion and slight trunk flexion Neuromuscular (Tone, Coordination, Reflexes) grossly intact Sensory Vision: Wears Glasses Hearing: Functional Sensation Right Lower Extremit: Impaired Sensation Left Lower Extremity: Impaired Transfers Therapy Code Descriptions/Definitions Functional [place] Measure: 0=Not Assessed/NA 4=Minimal Assistance 1=Total Assistance 5=Supervision or Setup 2=Maximal Assistance 6=Modified [place] 3=Moderate Assistance 7=Complete [place] Transfers (B, C, W/C) (FIM): 3 Scootin Sit to/from Stand: 3 Gait Mode of Locomotion: Walk Anticipated Mode of Locomotion: Walk Gait (FIM): 1 Distance (FIM): 1=up to 49 ft Distance: 45' Gait Level of Assist: 4 Gait Persons Needed: 1 Gait Assistive Device: Cane Single Point Comments/Gait Description step to gait sequence with cane use Balance Sitting Static: Normal Sitting Dynamic: Normal Standing Static: Fair Standing Dynamic: Fair Assessment/Needs 88 y.o. female, will benefit from skilled PT to address functional strength and mobility to improve current LOF to return to home or care facility at maximum LOF. Rehab Potential: Fair PT Short Term Goals Short Term Goals Time Frame: Nov 29, 2018 Transfers (B,C,W/C) (FIM): 5 Gait (FIM): 2 Distance (FIM): 5=010-72 ft Gait Distance Comment: 125' Gait Level of Assist: 4 Gait Assistive Device: Cane Single Point PT Twisthand Goals Intermediate Goals PT Intermediate Goals Time Frame: Dec 09, 2018 Transfers (B,C,W/C) (FIM): 6 Gait (FIM): 6 Gait distance (FIM): 3=150 ft Distance: 150' Gait Level of Assist: 6 Gait Assistive Device: Cane Single Point PT Plan Problem List Problem List: Activity Tolerance, Functional Strength, Balance, Gait, Transfer, Bed Mobility Treatment/Plan Treatment Plan: Continue Plan of Care Treatment Plan: Bed Mobility, Education, Functional Activity [place], Functional Strength, Gait, Safety, Therapeutic Exercise, Transfers Treatment Duration: Dec 09, 2018 Frequency: 6 times per week Estimated Hrs Per Day: .25 hour per day Patient and/or Family Agrees t: Yes Safety Risks/Education Patient Education: Gait Training, Safety Issues Teaching Recipient: Patient, Significant Other Teaching Methods: Demonstration Response to Teaching: Verbalize Understanding, Return Demonstration Discharge Recommendations Therapy D/C Recommendations: Acute Rehab, Assisted Living, Assisted Placement, Custodial (TCU/NH) Time/GCodes Time In: 1545 Time Out: 1603 Total Billed Treatment Time: 18 Total Billed Treatment 1 visit EVModC 18 min BEBA ATKINS PT Nov 21, 2018 16:10
[2018-11-21] MEDS ORDERED: CYAN100088 PO (16:15)
--- NOTE | 2018-11-21 16:24 | NUR ---
SPOKE WITH PT WELL GOING OVER THE EXT MED HISTORY TO COMPLETE THE MED REC. PT TAKES TRAMADOL 50MG- BUT SHE STATES SHE ONLY TAKES PRN AND SHE HAS NOT HAD TO GET A REFILL FROM THE PHARMACY FOR A LONG TIME. OTC MEDS: ASPIRIN 81M DAILY VITAMIN B12 1000M DAILY DOCUSATE: 1 DAILY LUETIN 4M DAILY MULTIVITAMIN: 1 DAILY MIRALAX: 1 CAPFUL PRN JOINT HEALTH: 1 DAILY
[2018-11-21 16:27] VITALS: BP 133/64
[2018-11-21 16:50] VITALS: BP 133/64
[2018-11-21] MEDS ORDERED: RT-ALBUTEROL SULF 2.5 MG/3 ML PRE-MIX VIAL INH PRN (17:15)
[2018-11-21 19:39] VITALS: BP 130/60
[2018-11-21] MEDS: CATHETER FLUSH 10 ML SYR IV SCH (20:40)
[2018-11-21] MEDS ORDERED: POLYETHYLENE GLYCOL 17 GM (MIRALAX) PACK PO SCH (21:30)
[2018-11-22 00:03] VITALS: BP 157/74
[2018-11-22] MEDS: CATHETER FLUSH 10 ML SYR IV SCH (04:07)
[2018-11-22 04:22] VITALS: BP 165/71
[2018-11-22 08:00] VITALS: BP 125/67
--- NOTE | 2018-11-22 09:57 | Short Stay Summary-Hospitalist ---
History of Present Illness HPI/Chief Complaint Pt is an 88yoCF with a PMH of HTN who presented to the Er with a CC of fall. She was getting up to kill a bug that was in her house and she tripped over hte fireplace and fell. She had her life alert button on but it was not working so she had to call 911 who brought her in by ambulance for evaluation. She was found to have a right clavicular fracture. She was admitted for pain control and PT/OT. She gives a history of frequent falls. She fell 3 weeks ago when she lost her balance and fell on her coffee table and broke it. Source: patient Exam Limitations: no limitations Date Seen 11/22/18 Time Seen by a Provider: 09:57 Attending Physician Rivas Boothe MD PCP Venkatesh Dobbins MD Referring Physician Date of Admission Nov 21, 2018 at 2:51 pm Home Medications & Allergies Home Medications Reviewed patient Home Medication Reconciliation performed by pharmacy medication reconciliations collision technician and/or nursing. Patients Allergies have been reviewed. Allergies Allergies Coded Allergies atenolol (Verified Allergy, Unknown, 05/05/18) codeine (Verified Adverse Reaction, Mild, NAUSEA, 05/05/18) HEADACHE diltiazem (Verified Adverse Reaction, Mild, DOESN'T WANT, 05/05/18) indomethacin (Verified Adverse Reaction, Mild, DOESN'T WANT, 05/05/18) propranolol (Verified Adverse Reaction, Mild, DOESN'T WANT, 05/05/18) morphine (Verified Adverse Reaction, Unknown, 05/05/18) reports hearing things-reports she does not want to ever take. haS TOLERATED HYDROCODONE Uncoded Allergies NITROPATCH ( Adverse Reaction, Mild, DOESN'T WANT, 03/29/07) Past Bjncesy-Tdkxhk-Bpehir Hx Past Med/Social Hx: Reviewed Nursing Past Med/Soc Hx Patient Social History Employed/Student: retired Alcohol Use: Denies Use Recreational Drug Use: No 2nd Hand Smoke Exposure: No Physical Abuse Screen: No Sexual Abuse: No Recent Foreign Travel: No Contact w/other who traveled: No Recent Hopitalizations: No Recent Infectious Disease Expo: No Immunizations Up To Date Tetanus Booster (TDap): Unknown Pediatric: No Date of Pneumonia Vaccine: Nov 23, 2013 Date of Influenza Vaccine: Jan 23, 2018 Seasonal Allergies Seasonal Allergies: No Past Medical History Surgeries: Adenoidectomy, Appendectomy, Cardiac, Coronary Stent, Gallbladder, Orthopedic, Tonsillectomy, Vascular Surgery Currently Using CPAP: No Currently Using BIPAP: No Cardiac: Coronary Artery Disease, High Cholesterol, Hypertension, Peripheral Vascular Reproductive: No Sexually Transmitted Disease: No HIV/AIDS: No Female Reproductive Disorders: Denies Genitourinary: UTI-Chronic Gastrointestinal: Gastroesophageal Reflux, Chronic Constipation, Diverticulosis, Gall Bladder Disease Musculoskeletal: Arthritis, Chronic Back Pain, Fractures HEENT: Cataract Loss of Vision: Bilateral Hearing Impairment: Hard of Hearing History of Blood Disorders: No Family History Reviewed Nursing Family Hx Arthritis 19 MOTHER, Onset:Unknown Diabetes mellitus 19 FATHER, Onset:Unknown Myocardial infarction 19 FATHER, Onset:Unknown 19 MOTHER, Onset:Unknown Review of Systems Constitutional: No chills, No fever; weakness EENTM: No blurred vision, No double vision, No nose congestion, No throat pain Respiratory: No cough, No dyspnea on exertion, No short of breath Cardiovascular: No chest pain, No edema, No palpitations Gastrointestinal: No abdominal pain, No constipation, No diarrhea, No nausea, No vomiting Genitourinary: No dysuria, No frequency Musculoskeletal: No joint pain, No muscle pain Skin: No lesions, No rash Psychiatric/Neurological: Denies Headache, Denies Numbness, Denies Tingling Physical Exam Physical Exam Vital Signs Vital Signs - First Documented Capillary Refill : Less Than 3 SecondsLess Than 3 Seconds Height, Weight, BMI Height: 5'7.00" Weight: 145lbs. 0.0oz. 65.573597wb; 22.7 BMI Method:Stated General Appearance: No Apparent Distress, WD/WN, Thin HEENT: Moist Mucous Membranes; No Scleral Icterus (L), No Scleral Icterus (R) Neck: Supple; No Thyromegaly Respiratory: Lungs Clear, No Accessory Muscle Use, No Respiratory Distress Cardiovascular: Regular Rate, Rhythm, No JVD, No Murmur Gastrointestinal: Normal Bowel Sounds, Non Tender, Soft Extremity: No Calf Tenderness, No Pedal Edema, Other (right arm in sling) Neurologic/Psychiatric: Alert, Oriented x3, Normal Mood/Affect; No Aphasia, No Facial Droop Skin: Normal Color, Warm/Dry Results Results/Procedures Labs Laboratory Tests 11/21/18 11:29 Patient resulted labs reviewed. Imaging: Reviewed Imaging Films, Reviewed Imaging Report Imaging Date of Exam: 11/21/18 CT CHEST WO PROCEDURE: CT chest without contrast. TECHNIQUE: Multiple contiguous axial images were obtained through the chest without the use of intravenous contrast. Auto Exposure Controls were utilized during the CT exam to meet ALARA standards for radiation dose reduction. INDICATION: Fall, chest injury. Abnormality on radiographs. COMPARISON: Radiographs from the same day. FINDINGS: The heart is normal in size. There is extensive coronary atherosclerosis and moderate aortic atherosclerosis. No aneurysm is seen. There are multiple mildly prominent mediastinal lymph nodes, this includes a left lower paratracheal lymph node measuring 13 x 11 mm (image 22 series 2), and a subcarinal lymph node measuring 20 x 10 mm in size (image 28 series 2). No supraclavicular adenopathy is seen. There are calcified lymph nodes in the left hilum. There is extensive interstitial prominence throughout the lungs bilaterally, with scarring particularly in the right upper lobe. There is dependent atelectasis bilaterally. No significant pleural effusion is seen. There is a mass-like density in the lateral right lower lobe which measures 5.8 x 3.4 cm in size, abutting the pleura. There appear to be internal bronchi. There is also a mass-like density in the left lower lobe which measures 3.7 x 2.6 cm in size. This contains a small associated calcification. Multiple additional calcified granulomas are seen in the left lower lobe. Imaged portions of the upper abdomen demonstrate mild extrahepatic and intrahepatic biliary dilatation, which may be in part due to age and postcholecystectomy changes. nonobstructing calculi are seen in the left kidney. The right kidney appears mildly atrophic. Postsurgical changes are seen in the anterior abdomen. There is diffuse osteopenia. No acute osseous abnormality is seen. There are degenerative changes throughout the spine. Severe degenerative changes are seen in the right glenohumeral joint. There is mild deformity in the right lower ribs which appears chronic. IMPRESSION: 1. Mass-like densities in the bilateral lower lobes. Although there is evidence of prior granulomatous disease, malignancy must be excluded and biopsy is recommended. 2. Emphysematous changes and scarring in the lungs bilaterally, particularly the right upper lobe. 3. Nonspecific mildly prominent mediastinal lymph nodes, may be reactive. 4. Biliary dilatation may be secondary to postcholecystectomy changes. Right renal atrophy. Short Stay Diagnosis Discharge Diagnosis-Short Stay Admission Diagnosis Clavicle Fracture Final Discharge Diagnosis Clavicle Fracture Conclusion Plan Clavicle Fracture Pain controlled with Tramadol PT/OT IRU evaluated and has accepted for admission Will transfer there when bed available later today Lung Mass Seen on CXR and CT Chest followed up with showed large bilateral lung masses Discussed with patient and concern for malignancy and states she is aware of these masses but desires not further work up or evaluation Diagnosis/Problems Diagnosis/Problems (1) Lung mass (2) Clavicle fracture (3) Hypertension Status: Acute (4) Fall on same level Status: Acute Clinical Quality Measures DVT/VTE Risk/Contraindication: Risk Factor Score Per Nursin RFS Level Per Nursing on Admit: 4+=Very High RIVAS BOOTHE MD Nov 22, 2018 9:57 am
== END 2018-11-22 11:45 ==
LOC: EDUNIT# 09:28 → ER 09:28 → UNDOADMOB 14:51 → 4TH 14:51 → UNDODISOB 11-22 11:25
PROVIDERS: ADMIT Family Medicine; ATTEND Family Medicine
DX: S42.021A Displaced fracture of shaft of right clavicle, initial encounter for closed fracture (principal); R29.6 Repeated falls; R91.8 Other nonspecific abnormal finding of lung field; I25.10 Atherosclerotic heart disease of native coronary artery without angina pectoris; E78.00 Pure hypercholesterolemia, unspecified; I73.9 Peripheral vascular disease, unspecified; Z66 Do not resuscitate; K21.9 Gastro-esophageal reflux disease without esophagitis; K59.09 Other constipation; Z95.5 Presence of coronary angioplasty implant and graft; W19.XXXA Unspecified fall, initial encounter; Y92.009 Unspecified place in unspecified non-institutional (private) residence as the place of occurrence of the external cause; M19.91 Primary osteoarthritis, unspecified site; Z88.5 Allergy status to narcotic agent; Z79.899 Other long term (current) drug therapy
CPT/HCPCS: 36415; 70450; 71045; 71250; 72125; 72170; 73000; 73030; 80053; 85007; 85027; 86141; 94760; 96374; G0378

== ENCOUNTER 2018-11-22 09:53 | Inpatient (IN) | payer MEDICARE ==
[~2018-11-22] VITALS: Ht 170.2 cm; Wt 65.6 kg
[~2018-11-22 09:53] MED LIST changes: +ATOR40TA70 PO; +CLOP75TA69 PO; +CYAN100088 PO
[2018-11-22 11:30] VITALS: BP 145/84
--- NOTE | 2018-11-22 11:30 | NUR ---
LUCIOAKANKSHANA admitted to room 229-1, with an admitting diagnosis of RIGHT CLAVICLE FX, FALLS, AND DEBILITY on 11/22/[address] [facility] [address] via , accompanied by STAFF. KYLEE VALDES introduced to surroundings, call light, bed controls, phone, TV, temperature control, lights, meal times, smoking policy, visitor policy, side rail policy, bathrooms and showers. Patient Rights given to patient in the handbook.KYLEE VALDES verbalizes understanding that [facility] is not responsible for the loss or damage to any personal effects or valuables that are kept in the patients posession during their hospitalization. The following Patient Care Plans were discussed with the PT: Discharge Planning AND IMPAIRED MOBILITY. KYLEE VALDES verbalizes understanding of Interdisciplinary Patient Education. Patient received Patient Rights Booklet, which includes Privacy Act Statement and Data Collection Information Summary. RIGHT ARM SLING ON.
--- NOTE | 2018-11-22 12:31 | NUR ---
REVIEWED MED REC IT WAS REPORTED UPON ADMISSION TO 4TH FLOOR. NO CHANGES WERE MADE WHEN THE PATIENT DISCHARGED TO REHAB.
--- OUTSIDE RECORDS SUMMARY | 2018-11-22 12:31 | XMS REPORT | Continuity of Care Document ---
Author Organization Unknown Address Unknown Phone Unavailable Allergies Active Description Code Type Severity Reaction Onset Reported/Identified Relationship to Patient Clinical Status Yes atenolol [id number] Drug Allergy Mild DOSEN'T WANT 03/29/2007 Yes NITROPATCH NITROPATCH Mild DOESN'T WANT 03/29/2007 Yes codeine [id number] Drug Allergy Mild NAUSEA, HEADACH 04/05/2007 Yes codeine [id number] Drug Allergy Unknown NAUSEA 10/08/2016 Yes codeine [id number] Drug Allergy Mild NAUSEA 05/05/2018 Yes diltiazem [id number] Drug Allergy Mild DOESN'T WANT 05/05/2018 Yes indomethacin [id number] Drug Allergy Mild DOESN'T WANT 05/05/2018 Yes propranolol [id number] Drug Allergy Mild DOESN'T WANT 05/05/2018 Yes atenolol [id number] Drug Allergy Unknown N/A 05/05/2018 Yes morphine [id number] Drug Allergy Unknown N/A 05/05/2018 Medications There [...] Ot 709.2 SCAR FIBROSIS OF SKIN 08/17/2014 TEHAMA DO JAJA Michelle Ot 414.00 CORON ATHEROSCLER NOS TYPE VESSEL, NATIV 08/17/2014 JAMES DO JAJA K Ot 793.19 OTHER NONSPECIFIC ABNORMAL FINDING OF TRICIA 08/17/2014 JAMES JAJA SANCHES Ot 805.02 FX C2 VERTEBRA-CLOSED 08/17/2014 JAMES DO JAJA K Ot 845.00 SPRAIN OF ANKLE NOS 08/17/2014 TEHAMA JAJA SANCHES Ot 920 CONTUSION FACE/SCALP/NCK 08/17/2014 [facility] JAJA K Ot 923.00 CONTUSION SHOULDER REG 08/17/2014 [facility] JAJA K Ot 924.01 CONTUSION OF HIP 08/17/2014 [facility] JAJA K Ot 959.09 INJURY OF FACE [...] VILLANUEVA, SHANTANU E Ot V58.63 08/23/2014 TREVOR VILALNUEVA, SHANTANU E Ot V58.66 08/23/2014 TREVOR VILLANUEVA, [...] SHANTANU E Ot 414.01 CORONARY ATHEROSCLEROSIS OF [place] CORON 09/03/2014 SHANTANU MURRAY MD Ot 564.00 [...] PHILIP MD Ot 414.01 CORONARY ATHEROSCLEROSIS OF [place] CORON 10/31/2014 KAVITA PHILIP MD Ot 682.6 [...] PHILIP MD Ot 414.01 CORONARY ATHEROSCLEROSIS OF [place] CORON 11/05/2014 KAVITA PHILIP MD Ot 682.6 [...] SHANTANU E Ot 414.01 CORONARY ATHEROSCLEROSIS OF [place] CORON 11/13/2014 TREVOR VILLANUEVA, SHANTANU E Ot [...] 12/16/2014 KAVITA PHILIP MD Ot 998.83 12/23/2014 ORBBY REYES MD Ot 440.23 12/23/2014 ROBBY REYES MD Ot 707.12 12/26/2014 ROBBY REYES MD Ot 440.23 12/26/2014 ROBBY REYES MD Ot 707.12 01/21/2015 KAVITA PHILIP MD Ot 440.23 01/21/2015 KAVITA PHILIP MD Ot 457.1 01/21/2015 KAVITA PHILIP MD Ot 707.12 01/21/2015 KAVITA PHILIP MD Ot 998.83 01/22/2015 KAVITA PHILIP MD Ot 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 01/22/2015 KAVITA PHILIP MD Ot 457.1 OTHER LYMPHEDEMA 01/22/2015 KAVITA PHILIP MD Ot 707.12 ULCER OF CALF 01/22/2015 KAVITA PHILIP MD Ot 998.83 NON-HEALING SURG WOUND 01/28/2015 KAVITA PHILIP MD Ot 440.23 01/28/2015 KAVITA PHILIP MD Ot 457.1 01/28/2015 KAVITA PHILIP MD Ot 707.12 01/28/2015 KAVITA PHILIP MD Ot 998.83 02/11/2015 KAVITA PHILIP MD Ot I70.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 02/11/2015 [...] KAVITA PHILIP MD, Ot M54.2 CERVICALGIA 01/26/2016 ECDRICK MD, KAVITA D Ot M54.5 LOW BACK [...] E Ot I25.10 ATHSCL HEART DISEASE OF [place] CORONARY 10/14/2016 TREVOR VILLANUEVA, SHANTANU E Ot [...] E Ot I25.10 ATHSCL HEART DISEASE OF [place] CORONARY 10/14/2016 SHANTANU MURRAY MD E Ot [...] E Ot I25.10 ATHSCL HEART DISEASE OF [place] CORONARY 10/14/2016 MURRAY MD, SHANTANU E Ot [...] E Ot I25.10 ATHSCL HEART DISEASE OF [place] CORONARY 10/15/2016 MAO MURRAY MDIC E Ot I73.9 PERIPHERAL VASCULAR DISEASE, UNSPECIFIED 10/15/2016 MAO MURRAY MDIC E Ot K21.9 GASTRO-ESOPHAGEAL REFLUX DISEASE WITHOUT 10/15/2016 TREVOR VILLANUEVA SHANTAUN E Ot K59.09 OTHER CONSTIPATION 10/15/2016 MAO [...] E Ot I25.10 ATHSCL HEART DISEASE OF [place] CORONARY 10/21/2016 SHANTANU MURRAY MD E Ot [...] E Ot I25.10 ATHSCL HEART DISEASE OF [place] CORONARY 10/21/2016 SHANTANU MURRAY MD E Ot [...] VASCULAR ANGIOPLASTY STATUS W 01/14/2017 ARIEL GUERRERO TRAM OPERATOR Ot M54.2 CERVICALGIA 01/14/2017 ARIEL GUERRERO TRAM OPERATOR Ot M54.5 LOW BACK PAIN 01/14/2017 KAVITA PHILIP MD Ot M47.816 SPONDYLOSIS W/O MYELOPATHY OR RADICULOPA 01/14/2017 KAVITA PHILIP MD Ot S32.020A WEDGE COMPRESSION FRACTURE OF SECOND LUM 01/14/2017 KAVITA PHILIP MD Ot X58.XXXA EXPOSURE TO OTHER SPECIFIED FACTORS, INI 01/14/2017 KAVITA PHILIP MD Ot Y99.8 OTHER EXTERNAL CAUSE STATUS 01/19/2017 ARIEL GUERRERO TRAM OPERATOR Ot M54.2 CERVICALGIA 01/19/2017 ARIEL GUERRERO TRAM OPERATOR Ot M54.5 LOW BACK PAIN 01/19/2017 KAVITA PHILIP MD Ot M47.816 SPONDYLOSIS W/O MYELOPATHY OR RADICULOPA 01/19/2017 KAVITA PHILIP MD Ot S32.020A WEDGE COMPRESSION FRACTURE OF SECOND LUM 01/19/2017 KAVITA PHILIP MD Ot X58.XXXA EXPOSURE TO OTHER SPECIFIED FACTORS, INI 01/19/2017 KAVITA PHILIP MD Ot Y99.8 OTHER EXTERNAL CAUSE STATUS 01/22/2017 ARIEL GUERRERO TRAM OPERATOR Ot M54.2 CERVICALGIA 01/22/2017 ARIEL GUERRERO TRAM OPERATOR Ot M54.5 LOW BACK PAIN 01/31/2017 ARIEL GUERRERO TRAM OPERATOR Ot M54.2 CERVICALGIA 01/31/2017 ARIEL GUERRERO TRAM OPERATOR Ot M54.5 LOW BACK PAIN 03/18/2017 ARIEL GUERRERO TRAM OPERATOR Ot M54.2 CERVICALGIA 03/18/2017 YOLANDA, ARIEL R TRAM OPERATOR Ot M54.5 LOW BACK PAIN 03/24/2017 YOLANDA ARIEL R TRAM OPERATOR Ot M54.2 CERVICALGIA 03/24/2017 YOLANDA, ARIEL R TRAM OPERATOR Ot M54.5 LOW BACK PAIN 04/28/2017 YOLANDA, ARIEL R TRAM OPERATOR Ot M54.2 CERVICALGIA 04/28/2017 YOLANDA ARIEL R TRAM OPERATOR Ot M54.5 LOW BACK PAIN 02/01/2018 ANTONY MCCALLUM MD Ot E78.00 PURE HYPERCHOLESTEROLEMIA, UNSPECIFIED 02/01/2018 ANTONY MCCALLUM MD Ot I10 ESSENTIAL (PRIMARY) HYPERTENSION 02/01/2018 ANTONY MCCALLUM MD, Ot I25.10 ATHSCL HEART DISEASE OF [place] CORONARY 02/01/2018 ANTONY MCCALLUM MD Ot I73.9 [...] IMMUNIZATION 02/01/2018 ANTONY MCCALLUM MD Ot Z79.82 FDC (CURRENT) USE OF ASPIRIN 02/01/2018 ANTONY MCCALLUM [...] ACQUIRED ABSENCE OF OTHER ORGANS 02/01/2018 ANTONY MCCALULM MD, Ot Z95.5 PRESENCE OF CORONARY ANGIOPLASTY IMPLANT 02/01/2018 ANTONY MCCALLUM MD, Ot Z98.62 PERIPHERAL VASCULAR ANGIOPLASTY STATUS 02/08/2018 PHOEBE PULIDO APRN Ot Z48.02 ENCOUNTER FOR REMOVAL OF SUTURES 02/10/2018 ANTONY MCCALLUM MD Ot E78.00 PURE HYPERCHOLESTEROLEMIA, UNSPECIFIED 02/10/2018 ANTONY MCCALLUM MD Ot I10 ESSENTIAL (PRIMARY) HYPERTENSION 02/10/2018 ANTONY MCCALLUM MD, Ot I25.10 ATHSCL HEART DISEASE OF [place] CORONARY 02/10/2018 ANTONY MCCALLUM MD, Ot I73.9 [...] IMMUNIZATION 02/10/2018 ANTONY MCCALLUM MD, Ot 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 02/10/2018 ANTONY MCCALLUM [...] AMY VILLANUEVA, ROBBY Yousif Ot 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 02/27/2018 ROBBY REYES [...] MD Ot R32 UNSPECIFIED URINARY INCONTINENCE 04/21/2018 KVAITA PHILIP MD Ot R32 UNSPECIFIED URINARY INCONTINENCE 04/28/2018 KAVITA PHILIP MD Ot R32 UNSPECIFIED URINARY INCONTINENCE 04/28/2018 KAVITA PHILIP MD, Ot R32 UNSPECIFIED URINARY INCONTINENCE 05/09/2018 LESLEE HANCOCK MD Ot A41.89 OTHER SPECIFIED SEPSIS 05/09/2018 LELSEE HANCOCK MD Ot E78.00 PURE HYPERCHOLESTEROLEMIA, UNSPECIFIED 05/09/2018 LESLEE HANCOCK MD Ot E87.2 ACIDOSIS 05/09/2018 LESLEE HANCOCK MD Ot I10 ESSENTIAL (PRIMARY) HYPERTENSION 05/09/2018 LESLEE HANCOCK MD Ot I11.0 HYPERTENSIVE HEART DISEASE WITH HEART FA 05/09/2018 LESLEE HANCOCK MD Ot I25.10 ATHSCL HEART DISEASE OF [place] CORONARY 05/09/2018 LESLEE HANCOCK MD Ot I50.21 [...] MD Ot I25.10 ATHSCL HEART DISEASE OF [place] CORONARY 05/12/2018 LESLEE HANOCCK MD Ot I73.9 PERIPHERAL VASCULAR DISEASE, UNSPECIFIED [...] MD Ot I25.10 ATHSCL HEART DISEASE OF [place] CORONARY 05/12/2018 LESLEE HANCOCK MD Ot I73.9 [...] MD, Ot I25.10 ATHSCL HEART DISEASE OF [place] CORONARY 05/12/2018 LESLEE HANCOCK MD, Ot I73.9 [...] Performed By Performed On 83.02 MYOTOMY 10/28/2014 [id number] INTRODUCTION OF ANTI-INFLAMMATORY INTO J 10/15/2016 Results [...] NRG Blood erythrocyte morphology finding identification [facility] Comprehensive metabolic panel - 10/07/16 20:10 Serum [...] culture - 10/08/16 12:00 Bacterial urine culture [id number] NRG COLONY COUNT 10,000/ML - 100,000/ML NRG [...] Status Pt. Type Provider Facility Loc./Unit Complaint [id number] 10/10/2018 11:06:00 10/10/2018 23:59:59 CLS Outpatient PRINCESS DUNN, JIMI Justin [facility] RAD RIGHT SHOULDER PAIN [id number] 05/06/2018 11:56:00 05/09/2018 15:10:00 DIS Inpatient SANTI VILLANUEVA, LESLEE Beckford [facility] 4TH INFLUENZA B;HYPOXIA [id number] 04/28/2018 14:51:00 04/28/2018 16:27:00 DIS Outpatient KAVITA PHILIP MD [facility] URINARY INCONTINENCE [id number] 02/08/2018 11:14:00 02/08/2018 11:35:00 DIS Emergency PHOEBE PULIDO APRN [facility] ER SUTURE REMOVAL [id number] 02/01/2018 09:44:00 02/01/2018 13:00:00 DIS Emergency ANTONY MCCALLUM MD [facility] ER FALL [id number] 04/29/2017 00:20:00 04/29/2017 23:59:59 CLS Preadmit ARIEL GUERRERO APRN [facility]HAB LBP; CERVICALGIA [id number] 03/11/2017 14:31:00 04/28/2017 00:01:00 DIS Outpatient ARIEL GUERRERO APRN [facility]AB LBP; CERVICALGIA [id number] 01/17/2017 15:44:00 01/22/2017 00:01:00 DIS Outpatient ARIEL GUERRERO APRN [facility] REHAB LBP; CERVICALGIA [id number] 12/22/2016 14:57:00 12/22/2016 23:59:59 CLS Outpatient KAVITA PHILIP MD [facility] RAD PAIN LOW BACK [id number] 10/08/2016 15:46:00 10/21/2016 13:50:00 DIS Inpatient SHANTANU MURRAY MD [facility] IRF DEBILITY [id number] 10/07/2016 18:17:00 10/08/2016 15:45:00 DIS Inpatient COLLEEN OVIEDO DO [facility] 4TH FALL,SCULP HEMATOMA,SEVERE R HIP PAIN AND INABILIT [id number] 03/26/2016 14:29:00 03/26/2016 15:44:00 DIS Outpatient KAVITA PHILIP MD [facility] REHAB LBP;CERVICALGIA [id number] 01/21/2016 13:24:00 01/23/2016 17:00:00 DIS Outpatient KAVITA PHILIP MD [facility] REHAB LBP;CERVICALGIA [id number] 02/11/2015 13:19:00 02/11/2015 15:00:00 DIS Outpatient KAVITA PHILIP MD [facility] WOUNDCARE [id number] 01/21/2015 13:17:00 01/22/2015 00:01:00 DIS Outpatient KAVITA PHILIP MD [facility] WOUNDCARE [id number] 11/29/2014 09:10:00 11/29/2014 23:59:59 CLS Outpatient ROBBY REYES MD [facility] RAD LEG ULCER/ PAD [id number] 11/05/2014 13:21:00 11/13/2014 13:30:00 DIS Inpatient SHANTANU MURRAY MD [facility] IRF WEAKNESS [id number] 10/31/2014 08:18:00 11/05/2014 12:00:00 DIS Inpatient KAVITA PHILIP MD [facility] SURGICAL SWB--RT LEG ABSCESS,CELLULITIS [id number] 10/24/2014 18:39:00 10/31/2014 08:09:00 DIS Inpatient KAVITA PHILIP MD [facility] SURGICAL RT LEG ABSCESS,CELLULITIS [id number] 10/21/2014 14:32:00 10/21/2014 23:59:59 CLS Outpatient KAVITA PHILIP MD [facility] HH POSSIBLE WOUND INFECTION [id number] 08/22/2014 16:43:00 09/03/2014 13:45:00 DIS Inpatient SHANTANU MURRAY MD [facility] IRF DEBILITY [id number] 08/17/2014 19:21:00 08/17/2014 21:50:00 DIS Emergency JAMES DO, JAJA K [facility] ER FALL [id number] 09/07/2013 07:05:00 09/07/2013 10:55:00 DIS Outpatient ANGELA DPM, LIAM Q [facility] SOFT TISSUE LESION RIGHT FOOT [id number] 09/05/2013 12:25:00 09/05/2013 23:59:59 CLS Outpatient ANGELA DPShakeel LIAM Q [facility] PREOP SOFT TISSUE LESION RIGHT FOOT [id number] 05/23/2013 08:11:00 05/23/2013 12:45:00 DIS Outpatient ELVIRA BAINS MD [facility] CHANGE IN BOWEL HABIT;BLOOD IN STOOL [id number] 05/16/2013 07:22:00 05/16/2013 23:59:59 CLS Outpatient ELVIRA BAINS MD [facility] PREOP CHANGE IN BOWEL HABIT;BLOOD IN STOOL [id number] 11/20/2018 14:29:00 ACT Outpatient KAVITA PHILIP MD [facility] GAIT INSTABILITY AND R SHOULDER PAIN [id number] 03/27/2012 11:57:00 Document Registration [id number] 01/21/2012 09:11:00 Document Registration [id number] 11/22/2011 09:52:00 Document Registration [id number] 05/04/2010 10:30:00 Document Registration [id number] 02/04/2015 13:33:42 ACT Document Registration
--- NOTE | 2018-11-22 12:50 | Physical Therapy Evaluation ---
PT Evaluation-General Medical Diagnosis Admission Date Nov 22, 2018 at 11:30 Medical Diagnosis: right clavicle fx Onset Date: Nov 21, 2018 Therapy Diagnosis Therapy Diagnosis: abnormal gait Height/Weight Height (Feet): 5 Height (Inches): 7.00 Weight (Pounds): 137 Weight (Ounces): 0.0 Precautions Precautions/Isolations: Standard Precautions Weight Bear Status slight right UE Referral Physician: Kaylie Reason for Referral: Evaluation/Treatment Medical History Pertinent Medical History: Arthritis, CAD, COPD, Diverticulitis, Fractures, GERD, HTN, [place], Neuropathy Current History Pt reports a series of falls on day of admission starting with decreased ability to get off the couch. Reports a recent history of falling as well. Pt sustained a right clavicular fx with the fall this episode. Reviewed History: Yes Social History Home: Single Level Current Living Status: Alone Entry Into Home: Stairs With Railing PT Steps Into Home: 3 Prior/Core FIM Prior Level of Function Therapy Code Descriptions/Definitions Functional [place] Measure: 0=Not Assessed/NA 4=Minimal Assistance 1=Total Assistance 5=Supervision or Setup 2=Maximal Assistance 6=Modified [place] 3=Moderate Assistance 7=Complete [place] Therapy Quality Codes: 6 Independent with activity with or without an assistive device 5 Patient requires set up or clean up by helper. Patient completes activity by themselves 4 Supervision or touching assist (CGA). [facility] provide cues , steadying assist 3 The helper provides less than half the effort to complete the activity 2 The helper provides more than half the effort to complete the activity 1 Dependent. The helper does all the effort to complete an activity 7 Patient refused to complete or attempt activity 9 The patient did not perform the activity before the current illness or injury 88 Not attempted due to Medical conditions or safety concerns Functional Abilities and Goals: Independent: Patient completed the activities by him/herself, with or without an assistive device, with no assistance from a helper. Needed Some Help: Patient needed partial assistance from another person to complete activities. Dependent: A helper completed the activities for the patient. Unknown: Not Applicable: Bed Mobility: 6 Transfers (B,C,W/C) (FIM): 6 Gait: 6 Stairs: 6 Indoor Mobility (Ambulation): Independent Stairs: Independent Prior Devices Use: Walker PT Evaluation-Current Subjective Pt is agreeable to PT. Reports her legs are very weak and she is having trouble standing up. Reports when she stands, she feels she is going to fall backwards. Pain Numeric Pain Scale: 7 Location: Right Location Body Site: Shoulder (clavicle area) Pain Description: Ache Pt/Family Goals Her goal is to improve her strength to allow her to return home. Objective Patient Orientation: Person, Place, Time, Situation Problem Solving: Good ROM/Strength Strength Upper Extremities WFL Strenght Lower Extremities B LE strength is grossly 3+/5 throughout Integumentary/Posture Integumentary Refer to nursing notes for full assessment Bowel Incontinence: No Bladder Incontinence: Yes Posture slightly rounded shoulders and forward head. shoulders are symmetrical; pt has right UE in a sling. Neuromuscular (Tone, Coordination, Reflexes) intact and functional Sensory Vision: Wears Glasses Hearing: Functional Hand Dominance: Right Sensation Right Lower Extremit: Intact Sensation Left Lower Extremity: Intact Transfers Therapy Code Descriptions/Definitions Functional [place] Measure: 0=Not Assessed/NA 4=Minimal Assistance 1=Total Assistance 5=Supervision or Setup 2=Maximal Assistance 6=Modified [place] 3=Moderate Assistance 7=Complete [place] Therapy Quality Codes: 6 Independent with activity with or without an assistive device 5 Patient requires set up or clean up by helper. Patient completes activity by themselves 4 Supervision or touching assist (CGA). [facility] provide cues , steadying assist 3 The helper provides less than half the effort to complete the activity 2 The helper provides more than half the effort to complete the activity 1 Dependent. The helper does all the effort to complete an activity 7 Patient refused to complete or attempt activity 9 The patient did not perform the activity before the current illness or injury 88 Not attempted due to Medical conditions or safety concerns Transfers (B, C, W/C) (FIM): 1 Scootin (assist of 2 to scoot) Rollin Roll Left to Right (QC): 3 Supine to/from Sit: 1 (assist of 2 to lie down; max assist to sit up) Sit to/from Stand: 3 (mod assist to come to a stand) Sit to Lying (QC): 1 Lying to Sitting/Side of Bed(Q: 2 Sit to Stand (QC): 3 Chair/Lfk-gr-Ydycf Xfer(QC): 4 (min assist for safety and balance) Pt unsteady in standing and retropulsive in initial standing. Due to limited use of right UE, transfers and bed mobility are difficult. Gait Does the Patient Walk?: Yes Mode of Locomotion: Walk Anticipated Mode of Locomotion: Walk Gait (FIM): 2 Distance (FIM): 1=up to 49 ft Walk 10 feet (QC): 3 (assist for balance and safety with cane) Walk 50 ft with 2 Turns(QC): 88 Walk 150 ft (QC): 88 Walking 10ft/uneven surface-QC: 88 Distance: 12 ft x 2 Gait Level of Assist: 3 Gait Persons Needed: 1 Gait Assistive Device: Cane Single Point Comments/Gait Description mod assist for balance with walking. Uses a cane. Unsteady. slow with decreased step length and foot clearance B Wheelchair Training Does the Pt Use a Wheelchair?: No Stairs Stairs (FIM): 0 1 Step (curb) (QC): 88 4 Steps (QC): 88 12 Steps (QC): 88 If not tested on admit;explain pt declined attempting; fearful of falling; pt does require mod assist for balance, feel it is a safety risk to attempt at this time. Balance Sitting Static: Fair Sitting Dynamic: Fair Standing Dynamic: Poor Picking up an Object (QC): 88 Treatment Functional transfer training with skilled cues for sequencing and hand placement. Gait training with focus on safety. [id number] Afternoon treatment consisted of functional sit to stand transfers requiring skilled cues for sit to stand and gait training. pt was able to walk x 50 ft with cane with min to mod assist for balance / safety. Pt transferred into bed from the left side of the bed with mod assist (assist for both legs). Pt is dependent for scooting up in bed and for rolling. Assisted nursing with rolling to doff and then don pants for straight cath. Ultimately, her slacks were removed a second time for comfort in bed. For clothing management, treatment consisted of rolling multiple times in bed, bridging and scooting up in bed. Pt in bed post treatment with needs met. Assessment/Needs pt presents post fall that resulted in a right clavicle fracture. She has impaired functional strength and balacne due to right UE in sling and impaired COG. She will benefit from skilled therapy services to address strength, balance, transfers and gait to promote mod indep mobility that will allow her to return home alone. She is motivated, cooperative, follows cues and generally has good potential to make functional gains. Rehab Potential: Good PT Short Term Goals Short Term Goals Time Frame: Nov 29, 2018 Transfers (B,C,W/C) (FIM): 4 Gait (FIM): 4 PT Single Wire Saw Operator Goals Single Wire Saw Operator Goals PT Halfway Goals Time Frame: Dec 14, 2018 Transfers (B,C,W/C) (FIM): 6 Sit to Lying (QC): 6 Lying-Sitting on Side/Bed(QC): 6 Sit to Stand (QC): 6 Roll Left to Right (QC): 6 Chair/Ruz-rc-Nsulo Xfer(QC): 6 Car Transfer (QC): 6 Does the Patient Walk: Yes Gait (FIM): 6 Gait distance (FIM): 3=150 ft Walk 10 feet (QC): 6 Walk 10ft-Uneven Surface(QC): 6 Walk 50ft with 2 Turns (QC): 6 Walk 150 ft (QC): 6 Gait Assistive Device: FWW Stairs (FIM): 2 # of Steps: 4 1 Step (curb) (QC): 6 4 Steps (QC): 6 12 Steps (QC): 88 Picking up an Object (QC): 88 PT Plan Problem List Problem List: Activity Tolerance, Functional Strength, Safety, Balance, Gait, Transfer, Bed Mobility, ROM Treatment/Plan Treatment Plan: Continue Plan of Care Treatment Plan: Bed Mobility, Education, Functional Activity [place], Functional Strength, Group Therapy, Gait, Safety, Therapeutic Exercise, Transfers Treatment Duration: Dec 14, 2018 Frequency: At least 5 of 7 days/Wk (IRF) Estimated Hrs Per Day: 1.5 hours per day Patient and/or Family Agrees t: Yes Safety Risks/Education Patient Education: Transfer Techniques, Safety Issues Teaching Recipient: Patient Teaching Methods: Demonstration, Discussion Response to Teaching: Reinforcement Needed Discharge Recommendations Therapy D/C Recommendations: Physical Therapy Home Care Time/GCodes Time In: 1130 Time Out: 1200 ([id number]) Total Billed Treatment Time: 80 Total Billed Treatment visit x 2 EVM 15 FA 3 (45) GT 1 (20) SHAHNAZ SMITH PT Nov 22, 2018 12:50
--- NOTE | 2018-11-22 13:05 | Occupational Therapy Eval ---
OT Evaluation-General/PLF Medical Diagnosis Admission Date Nov 22, 2018 at 11:30 Medical Diagnosis: right clavicle fx Onset Date: Nov 21, 2018 Therapy Diagnosis Therapy Diagnosis: IMPAIRED ADLS AND MOBILITY Height/Weight Height (Feet): 5 Height (Inches): 7.00 Weight (Pounds): 137 Weight (Ounces): 0.0 Precautions Precautions/Isolations: Fall Prevention, Standard Precautions Weight Bear Status treated NWB this date until clarification Referral Physician: Kaylie Referral Reason: Activity Tolerance, Self Care, Evaluation/Treatment, Strengthening/ROM Medical History Pertinent Medical History: Arthritis, CAD, COPD, Diverticulitis, Fractures, GERD, HTN, [place], Neuropathy Additional Medical History Surgeries: Yes (AMAURY, APPY, T&A, CATARACTS, STENTS- LEGS & HEART) Adenoidectomy, Appendectomy, Cardiac, Coronary Stent, Gallbladder, Orthopedic, Tonsillectomy, Vascular Surgery Respiratory: Yes Pneumonia Currently Using CPAP: No Currently Using BIPAP: No Cardiac: Yes (HEART STENT X1 IN 2014, STENTS X2 IN LEGS) Coronary Artery Disease, High Cholesterol, Hypertension, Peripheral Vascular Neurological: No Reproductive Disorders: No Female Reproductive Disorders: Denies Sexually Transmitted Disease: No HIV/AIDS: No Genitourinary: Yes UTI-Chronic Gastrointestinal: Yes Gastroesophageal Reflux, Chronic Constipation, Diverticulosis, Gall Bladder Disease Musculoskeletal: Yes (BACK PROBLEMS) Arthritis, Chronic Back Pain, Fractures Endocrine: No HEENT: Yes Cataract Loss of Vision: Bilateral Hearing Impairment: Hard of Hearing Cancer: No Psychosocial: No Integumentary: Yes (Shingles) Blood Disorders: No Current History per h&P: "pt was chasing a bug when she fell. Apparently she was trying to get up from the couch and fell back. She was able to scoot herself and ultimately was able to get up. She then fell and hit the fireplace the right side of her head and right shoulder" Reviewed History: Yes Social History Home: Single Level Current Living Status: Alone Entry Into Home: Stairs With Railing Steps Into Home: 3 ADL-Prior Level of Function Therapy Code Descriptions/Definitions Functional [place] Measure: 0=Not Assessed/NA 4=Minimal Assistance 1=Total Assistance 5=Supervision or Setup 2=Maximal Assistance 6=Modified [place] 3=Moderate Assistance 7=Complete [place] Therapy Quality Codes: 6 Independent with activity with or without an assistive device 5 Patient requires set up or clean up by helper. Patient completes activity by themselves 4 Supervision or touching assist (CGA). [place] provide cues , steadying assist 3 The helper provides less than half the effort to complete the activity 2 The helper provides more than half the effort to complete the activity 1 Dependent. The helper does all the effort to complete an activity 7 Patient refused to complete or attempt activity 9 The patient did not perform the activity before the current illness or injury 88 Not attempted due to Medical conditions or safety concerns Functional Abilities and Goals: Independent: Patient completed the activities by him/herself, with or without an assistive device, with no assistance from a helper. Needed Some Help: Patient needed partial assistance from another person to complete activities. Dependent: A helper completed the activities for the patient. Unknown: Not Applicable: ADL PLOF Comments indep with ADLs and functional transfers with use of RW at home. Self Care: Independent Functional Cognition: Independent DME/Equipment: Bath Chair, Shower Drive Self: Yes OT Current Status Subjective pt laying in bed upon OT arrival. pt agreed to OT Evaluation/ treatment session. pt reports no pain at this time. Mental Status/Objective Patient Orientation: Person, Place, Time, Situation Current Glasses/Contacts: Yes Hearing Aids: No Dentures/Partials: No Hand Dominance: Right Upper Extremity ROM L UE WNL RUE NT secondary to awaiting clarification on ROM and WBS Upper Extremity Coordination opposition LUE WNL RUE NT secondary to awaiting clarification on ROM and WBS Upper Extremity Sensation WNL Upper Extremity Strength RUE NT secondary to awaiting clarification on ROM and WBS LUE 4-/5 MMT ADL-Treatment Eating (FIM): 5 (set up ) Eating (QC): 4 Grooming (FIM): 4 (CGA while standing at sink. pt required assist with set up of items) Oral Hygiene (QC): 4 Bathing (FIM): 3 Bathing Location: L Upper Leg, R Upper Leg, Chest, Abdomen, Perineal Area Shower/Bathe Self (QC): 3 Upper Body Dressing (FIM): 1 (sinker puller shirt) Upper Body Dressing (QC): 1 Lower Body Dressing (FIM): 1 (underpants, pants, tre socks) Lower Body Dressing (QC): 1 On/Off Footwear (QC): 1 Toileting (FIM): 1 (requried assist with 3/3 toileting tasks) Toileting Hygiene (QC): 1 Transfers (B, C, W/C) (FIM): 3 (use of SPC required MOD A to perform sit to stand) Toilet/Commode Transfer (FIM): 3 (use of SPC required MOD A to perform sit to stand) Toilet Transfer (QC): 3 Shower Transfer (FIM): 3 (use of SPC, GB required MOD A to perform sit to standshower chair) pt required cuing to complete tasks without assist. pt pleasant and cooperative to work with. noted decrease activity tolerance with task requiring frequent rest breaks. post OT session pt transition to PT with Tara Education OT Patient Education: Energy conservation, Modified ADL techniques, Progress toward Goal/Update tx plan, Purpose of tx/functional activities, Reviewed precautions, Rehab process, Safety issues, Transfer techniques, Use of adapted equipment Teaching Recipient: Patient Teaching Methods: Demonstration, Discussion Response to Teaching: Verbalize Understanding, Return Demonstration OT Short Term Goals Short Term Goals Time Frame: Dec 06, 2018 Eating(FIM): 6 Grooming(FIM): 5 Bathing(FIM): 4 Bathing Location: L Arm, R Arm, L Upper Leg, R Upper Leg, L Lower Leg (including foot), R Lower Leg (including foot), Chest, Abdomen, Buttocks, Perineal Area Upper Body Dressing(FIM): 4 Lower Body Dressing(FIM): 4 Toileting(FIM): 4 Transfers (B,C,W/C) (FIM): 4 Toilet/Commode Transfer(FIM): 4 Shower Transfer(FIM): 4 Additional Short Term Goals: 1-Demonstrate ADL Tasks, 2-Verbalize Understanding, 3-ImproveStrength/[place] 1=Demonstrate adherence to instructed precautions during ADL tasks. 2=Patient will verbalize/demonstrate understanding of assistive devices/modifications for ADL. 3=Patient will improve strength/tolerance for activity to enable patient to perform ADL's. OT Sample Builder Goals Sample Builder Goals Time Frame: Dec 20, 2018 Eating (FIM): 7 Eating (QC): 6 Groomin Oral Hygiene (QC): 6 Bathing(FIM): 6 Bathing Location: L Arm, R Arm, L Upper Leg, R Upper Leg, L Lower Leg (including foot), R Lower Leg (including foot), Chest, Abdomen, Buttocks, Perineal Area Shower/Bathe Self (QC): 6 Upper Body Dressing(FIM): 6 Upper Body Dressing (QC): 6 Lower Body Dressing(FIM): 6 Lower Body Dressing (QC): 6 On/Off Footwear (QC): 6 Toileting(FIM): 6 Toileting Hygiene (QC): 6 Transfers (B,C,W/C) (FIM): 6 Toilet/Commode Transfer(FIM): 6 Toilet/Commode Transfer (QC): 6 Shower Transfer(FIM): 6 Additional Goals: 1-Demonstrate ADL Tasks, 2-Verbalize Understanding, 3- ImproveStrength/[place] 1=Demonstrate adherence to instructed precautions during ADL tasks. 2=Patient will verbalize/demonstrate understanding of assistive devices/modifications for ADL. 3=Patient will improve strength/tolerance for activity to enable patient to perform ADL's. OT Education/Plan Problem List/Assessment Assessment: Decreased Activ Tolerance, Decreased Safety Aware, Decreased UE Strength, Dependent Transfers, Impaired Bed Mobility, Impaired Coordination, Impaired Funct Balance, Impaired I ADL's, Impaired Self-Care Skills, Restricted Funct UE ROM pt presents with functional limitations affecting areas of ADLS and functional transfers with the above mention deficits. pt would benefit from skilled OT services to increase independence with ADL and functional transfers. Discharge Recommendations Plan/Recommendations: Continue POC Treatment Plan/Plan of Care Treatment,Training & Education: Yes Patient would benefit from OT for education, treatment and training to promote independence in ADL's, mobility, safety and/or upper extremity function for ADL's. Plan of Care: ADL Retraining, Caregiver Training, Functional Mobility, Group Exercise/Act as Ind, UE Funct Exercise/Act Treatment Duration: Dec 20, 2018 Frequency: At least 5 of 7 days/Wk (IRF) Estimated Hrs Per Day: 1 hour per day (60-90 minutes per day) Agreement: Yes Rehab Potential: Fair Time/GCodes Start Time: 12:50 Stop Time: 14:20 Billed Treatment Time EVM 15 minutes ADL 75 minutes, 5 units ANTONETTE GUEVARA OT Nov 22, 2018 13:05
--- NOTE | 2018-11-22 14:19 | ST Cognitive Linguistic Eval ---
Speech Evaluation-General Medical Diagnosis right clavicle fx Onset Date: Nov 21, 2018 Therapy Diagnosis Therapy Diagnosis: cognitive-communication Precautions Precautions: Fall Precautions/Isolations: Fall Prevention, Standard Precautions Referral Referring Physician: Dr. Lott Reason for Referral: Evaluation/Treatment Medical History Pertinent Medical History: Arthritis, CAD, COPD, Diverticulitis, Fractures, GERD, HTN, [place], Neuropathy Fracture Current History Fracture, cognitive-communication Reviewed History: Yes Social History Home: Single Level Current Living Status: Alone Speech PLF-Current Status Prior Level of Function Independent Subjective Patient was pleasant and alert, eating lunch at the start of session. Patient cooperative and actively participated in all session activities. Language Eval: Auditory Comprehends Simple Yes/No Ques: Functional Indent/Objects Multiple Baker: Functional Follows 1-Step Commands: Functional Follows Complex Directions: Mild Follows General Conversations: Functional Language Eval: Verbal Language Completes Spontaneous Greeting: Functional Produces Auto, Serial Info: Functional Imitates Simple Words/Phrases: Functional Word Finding: Functional Requests Basic Needs: Functional States Basic Personal Info: Functional Expresses Complex Ideas: Functional Cognitive Patient Orientation Patient oriented to day of the week, day, month, year, and state. Objective Cognitive Domain Attention: WNL Memory: Mild Problem Solving: Moderate Executive Functions: Moderate Visuospatial Skills: WNL Composite Severity Rating: Moderate Clock Drawing Severity Rating: Moderate Score: 22/30 Range: MNCD (Mild Neurocognitive Disorder) Objective Formal/Standardized Tests [facility] Mental Status ([facility]) Examination Results Patient scored 22/30 on the SLUMS indicating mild cognitive deficits particularly in the areas of memory and problem solving. Patient was successful with verbal cues. Oral Motor/Speech Production oral motor and speech skills WNL Impression Patient presents with mild cognitive deficits and would benefit from skilled ST to target memory and problem solving Communication/Social Cognition Comprehension: 6 Expression: 6 Social Interaction: 7 Problem Solvin Memory: 5 Speech Patient Assess Expression of Ideas/Wants: Expression (4) Understanding Verbal Content: Understands (4) Brief Interview-Mental Status: Yes Repetition of Three Words: Three (3) Temporal Orientation: Year: Correct (3) Temporal Orientation: Month: Accurate within 5 days(2) Temporal Orientation: Day: Correct (1) Recall : Wear to say "Sock": Yes, no cue required (2) Recall : Color: Yes, no cue required (2) Recall : Bed: Yes,after cueing (1) Add-Enter 99 if pt cannot comp: 99 Memory/Recall Ability: Current season, That he or she is in a hsp/hsp unit Speech Short Term Goals Short Term Goals Short Term Goals Patient will demonstrate simple problem solving and memory with 80% accuracy when given minimal cues Comprehension: 6 Expression: 6 Social Interaction: 7 Problem Solvin Memory: 5 Speech Custodial Goals Custodial Goals Patient will improve cognitive-communication necessary for safety and daily living tasks with minimal assist Comprehension: 6 Expression: 6 Social Interaction: 7 Problem Solvin Memory: 5 Speech-Plan Patient/Family Goals Patient/Family Goals: Improved health and cognition Treatment Plan Speech Therapy Treatment Plan: Continue Plan of Care Patient presents with mild cognitive deficits and is successful with verbal cueing. Patient would benefit from skilled ST services Treatment Duration: Dec 06, 2018 Frequency: 5 times per week Estimated Hrs Per Day: .5 hour per day Rehab Potential: Fair Barriers to Learning: cognitive-communication Pt/Family Agrees to Plan: Yes Safety Risks/Education Teaching Recipient: Patient Teaching Methods: Discussion Response to Teaching: Verbalize Understanding Education Topics Provided: room safety Time Speech Therapy Time In: 12:05 Speech Therapy Time Out: 12:20 Total Billed Time: 15 Billed Treatment Time 1, SPSNDARIEL Rosas Nov 22, 2018 14:19
--- NOTE | 2018-11-22 14:27 | PM&R H&P / Post Admit Assess ---
History of Present Illness HPI/Chief Complaint Chief Complaint: Debility following fall with right clavicle fracture HPI: This is a 88 yoWF clinic pt of Dr. Dobbins and Dr. Marrero cardiology in [place] who has a PMH of known lung mass did not pursue that a few years ago who presents to inpatient rehab following an observation stay after a fall sustaining a right clavicle fracture. She lives at home alone shes been falling a lot and has become quite debilitated and the goal is to return home to independent living with ADL independence and ambulatory status independent. 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 She does recall meeting me. At this current time pt is very well controlled is aware of the additional lung mass that she has no intention of treating and Dr. Hoskins updated her on that fact and overall she's ready to get started to recover and ultimately return back to home. Source: patient, RN/MD, old records Exam Limitations: no limitations Date Seen 11/22/18 Time Seen by a Provider: 14:30 Attending Physician Tashia Oviedo DO PCP Venkatesh Dobbins MD Referring Physician Date of Admission Nov 22, 2018 at 11:30 Home Medications & Allergies Home Medications Reviewed patient Home Medication Reconciliation performed by pharmacy medication reconciliations fiber optic technician and/or nursing. Patients Allergies have been reviewed. Allergies Allergies Coded Allergies atenolol (Verified Allergy, Unknown, 05/05/18) codeine (Verified Adverse Reaction, Mild, NAUSEA, 05/05/18) HEADACHE diltiazem (Verified Adverse Reaction, Mild, DOESN'T WANT, 05/05/18) indomethacin (Verified Adverse Reaction, Mild, DOESN'T WANT, 05/05/18) propranolol (Verified Adverse Reaction, Mild, DOESN'T WANT, 05/05/18) morphine (Verified Adverse Reaction, Unknown, 05/05/18) reports hearing things-reports she does not want to ever take. haS TOLERATED HYDROCODONE Uncoded Allergies NITROPATCH ( Adverse Reaction, Mild, DOESN'T WANT, 03/29/07) Past Ylwsnow-Yozlzc-[id number] Hx Past Med/Social Hx: Reviewed Nursing Past Med/Soc Hx, Reviewed and Corrections made Patient Social History Marrital Status: single Employed/Student: retired Alcohol Use: Denies Use Recreational Drug Use: No Smoking Status: Never a Smoker 2nd Hand Smoke Exposure: No Physical Abuse Screen: No Sexual Abuse: No Recent Foreign Travel: No Contact w/other who traveled: No Recent Hopitalizations: Yes (RIGHT CLAVICLE FX 7-19) Recent Infectious Disease Expo: No Immunizations Up To Date Tetanus Booster (TDap): Unknown Pediatric: No Date of Pneumonia Vaccine: Nov 23, 2013 Date of Influenza Vaccine: Jan 23, 2018 Seasonal Allergies Seasonal Allergies: No Past Medical History Surgeries: Adenoidectomy, Appendectomy, Cardiac, Coronary Stent, Gallbladder, Orthopedic, Tonsillectomy, Vascular Surgery Currently Using CPAP: No Currently Using BIPAP: No Cardiac: Coronary Artery Disease, High Cholesterol, Hypertension, Peripheral Vascular Reproductive: No Sexually Transmitted Disease: No HIV/AIDS: No Female Reproductive Disorders: Denies Genitourinary: UTI-Chronic Gastrointestinal: Gastroesophageal Reflux, Chronic Constipation, Diverticulosis, Gall Bladder Disease Musculoskeletal: Arthritis, Chronic Back Pain, Fractures HEENT: Cataract Loss of Vision: Bilateral Hearing Impairment: Hard of Hearing History of Blood Disorders: No Family History Arthritis 19 MOTHER, Onset:Unknown Diabetes mellitus 19 FATHER, Onset:Unknown Myocardial infarction 19 FATHER, Onset:Unknown 19 MOTHER, Onset:Unknown Review of Systems Constitutional: see HPI, malaise, weakness EENTM: no symptoms reported Respiratory: no symptoms reported Cardiovascular: no symptoms reported Gastrointestinal: no symptoms reported Genitourinary: no symptoms reported Musculoskeletal: no symptoms reported, other (right neck clavicle pain) Skin: no symptoms reported Psychiatric/Neurological: Depressed All Other Systems Reviewed Negative Unless Noted: Yes Physical Exam Exam Vital Signs Vital Signs Date Time Temp Pulse Resp B/P (MAP) Pulse Ox O2 Delivery O2 Flow Rate FiO2 11/22/18 17:50 98.4 98 18 171/80 (110) 96 Room Air Capillary Refill : General Appearance: No Apparent Distress, WD/WN, Chronically ill HEENT: PERRL/EOMI, Normal ENT Inspection, Pharynx Normal, Moist Mucous Membranes Neck: Full Range of Motion, Normal Inspection, Non Tender, Supple, Limited Range of Motion (to the right) Respiratory: Chest Non Tender, Lungs Clear, Normal Breath Sounds, No Accessory Muscle Use, No Respiratory Distress Cardiovascular: Regular Rate, Rhythm, No Edema, No Gallop, No JVD, No Murmur Gastrointestinal: Normal Bowel Sounds, No Organomegaly, No Pulsatile Mass, Non Tender, Soft Back: Normal Inspection, No CVA Tenderness, No Vertebral Tenderness Extremity: Normal Capillary Refill, Normal Inspection, Normal Range of Motion, Non Tender, No Calf Tenderness, No Pedal Edema Neurologic/Psychiatric: Alert, Oriented x3, No Motor/Sensory Deficits, Normal 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 but does not wish to have work-up or treatment CAD with stents in place PVD with stents in place Lives alone CHF UTI's Plan: Inpatient rehab protocol Ambulation with walker for fall prevention Regain independence with ADLs with right clavicle fracture and arm in sling Use platform to help navigate ambulation due to clavicle fracture Prevent delirium and maintain on Tylenol and Ultram for pain Right arm sling Check UA for urinary frequency (1) Fall on same level (2) Clavicle fracture (3) Hypertension (4) Lung mass (5) Peripheral vascular disease (6) Coronary arteriosclerosis (7) CAD (coronary artery disease) (8) PVD (peripheral vascular disease) (9) Recurrent UTI (10) Hyperlipemia (11) B12 deficiency (12) Congestive heart failure Post Admission Physician Asses Date seen by provider: Nov 22, 2018 Time seen by provider: 14:30 Admisison Dx: (1) Fall on same level Status: Acute The preadmission screen agrees with the post admission assessment that the patient is a good candidate for inpatient rehabilitation. The patient will have a comprehensive program of inpatient rehabilitation with a goal of maximizing level of functional independence prior to discharge home with family. The patient will have PT/OT ninety minutes per day, each discipline, five days a week for gait, strengthening, conditioning, balance, ADLs, any patient/family/caregiver training as necessary. Speech therapy to do cognitive assessment and treat as indicated. Rehabilitation nursing to assist with bowel, bladder, skin, wound care, medication administration, pain management. Reproduction Machine Loader to assist with discharge planning, community reentry. SCD's for DVT pro phylaxis. She appears to be well motivated to participate in three hours of therapy a day. She should be able to tolerate three hours of therapy a day from a medical standpoint. She should benefit from the three hours of therapy a day. She has a reasonable discharge plan, reasonable discharge rehabilitation goals and a supportive family. She has various comorbidities that need to be closely monitored with medications and treatments adjusted on a daily basis as needed. These include: see list Barriers to discharge for this patient who had been independent prior to this are for her to be modified independent to supervision for ADLs and mobility skills prior to discharge home with family, so as to lessen the burden of the caregivers. Risks for this patient include: 1. Fall 2. Fracture 3. DVT 4. Pulmonary embolism 5. Wound infection 6. Skin breakdown 7. Contractures 8. Poorly controlled pain 9. Urinary retention 10. UTI 11. Respiratory infection 12. Aspiration Estimated Length of Stay: 10 days Prognosis: Rehab prognosis appears good for goal of discharge home with family modified independent to supervision for ADLs and mobility skills. TASHIA OVIEDO DO Nov 22, 2018 14:26
[2018-11-22] MEDS ORDERED: ONDANSETRON 4 MG/2 ML (SDV) Z0FRAN IVP PRN (14:30)
[2018-11-22] MEDS ORDERED: HYDROcodone/APAP 5 MG/325 MG (LORTAB) TAB PO PRN (14:30)
[2018-11-22] MEDS ORDERED: NON-FORMULARY MEDICATION 1 EA EA (Docusate Sodium 100 MG) PO PRN (14:30)
[2018-11-22] MEDS ORDERED: MELATONIN 3 MG TABLET PO PRN (14:30)
[2018-11-22] MEDS ORDERED: diphenhydrAMINE 25 MG TAB (BENADRYL) PO PRN (14:30)
[2018-11-22] MEDS ORDERED: DOCUSATE SODIUM 100 MG (COLACE) CAP PO PRN (14:30)
[2018-11-22] MEDS ORDERED: CALCIUM CARBONATE 500 MG (TUMS) TAB.CHEW PO PRN (14:30)
[2018-11-22] MEDS ORDERED: ONDANSETRON 4 MG (ZOFRAN) ORAL DISSOLVE TAB PO PRN (14:30)
[2018-11-22] MEDS ORDERED: POLYETHYLENE GLYCOL 17 GM (MIRALAX) PACK PO PRN (14:54)
--- NOTE | 2018-11-22 15:00 | NUR ---
COMPLAIN URINARY PAIN AND BURNING. HAS CHRONIC UTI'S. DR. OVIEDO NOTIFIED AND SPECIMEN RECEIVED BY STRAIGHT CATH. MEDIATED WITH PYRIDIUM AND ALSO LORTAB FOR RIGHT CLAVICLE PAIN.
[2018-11-22] MEDS: PHENAZOPYRIDINE 100 MG (PYRIDIUM) TABLET PO PRN (15:06)
[2018-11-22 15:21] LABS: BILIRUBIN,URINE NEGATIVE (NEGATIVE); CLARITY,URINE CLEAR; COLOR,URINE YELLOW; GLUCOSE, URINE (UA) NEGATIVE (NEGATIVE); KETONES,URINE NEGATIVE (NEGATIVE); LEUKOCYTE ESTERASE ,URINE NEGATIVE (NEGATIVE); NITRITE,URINE NEGATIVE (NEGATIVE); PH,URINE 5 (5-9); PROTEIN,URINE 1+ (NEGATIVE); UROBILINOGEN,URINE NORMAL (NORMAL)
[2018-11-22 15:34] LABS: BACTERIA,URINE TRACE /HPF; RBC,URINE 0-2 /HPF; SQUAMOUS EPITHELIAL CELL,UR 0-2 /HPF
[2018-11-22 15:35] LABS: AMORPHOUS SEDIMENT,UR RARE AMOR URATES /LPF; GRANULAR CASTS,URINE RARE /LPF
--- NOTE | 2018-11-22 17:00 | NUR ---
REFUSES TO TAKE ANY MORE LORTAB. "IT MADE ME WOOSEY". MEDICATION DC'D. FAMILY IS BRINGING IN LUTEIN AND GLUCOSAMINE.
[2018-11-22] MEDS: GABAPENTIN 100 MG (NEURONTIN) CAP PO SCH (17:25)
[2018-11-22 17:50] VITALS: BP 171/80
--- NOTE | 2018-11-22 18:00 | NUR ---
UP TO BATHROOM AND THEN TO CHAIR. A FAIR DAY.
[2018-11-22] MEDS: SACUBITRIL/VALSARTAN 24/26 MG (ENTRESTO) TABLET PO SCH (21:00)
[2018-11-22] MEDS: ATORVASTATIN 40 MG (LIPITOR) TABLET PO SCH (21:00)
[2018-11-22] MEDS: AMITRIPTYLINE 25 MG (ELAVIL) TAB PO SCH (21:00)
[2018-11-22] MEDS: SENNA W/DOCUSATE (SENOKOT S) TABLET PO SCH (21:01)
[2018-11-23 05:38] VITALS: BP 154/73
[2018-11-23] MEDS: CYANOCOBALAMIN 1,000 MCG (VITAMIN B-12) TABLET PO SCH (06:24)
[2018-11-23] MEDS: MULTIVIT W/MINERALS TAB (THERAGRAN M) PO SCH (06:24)
[2018-11-23 08:00] VITALS: BP 122/66
--- NOTE | 2018-11-23 08:00 | NUR ---
STATES "SLEPT HARD". IS TACHYCARDIC, BUT MISSED BP MEDS YESTERDAY. WILL CONTINUE TO MONITOR. DR. IVELISSE REDDY FOR OT TO DO ROM ON RIGHT ARM.
[2018-11-23] MEDS: ASPIRIN 81 MG CHEW (CHILDREN'S ASA) PO SCH (08:44)
[2018-11-23] MEDS: SACUBITRIL/VALSARTAN 24/26 MG (ENTRESTO) TABLET PO SCH ×2 (08:44→20:46)
[2018-11-23] MEDS: SENNA W/DOCUSATE (SENOKOT S) TABLET PO SCH ×2 (08:44→20:46)
[2018-11-23] MEDS: meTOprolol SUCCINATE 100 MG (TOPROL XL) TAB PO SCH (08:44)
[2018-11-23] MEDS: SPIRONOLACTONE 25 MG (ALDACTONE) TAB PO SCH (08:44)
--- NOTE | 2018-11-23 09:13 | PM&R Progress Note ---
Subjective HPI/CC On Admission Date Seen by Provider: Nov 23, 2018 Time Seen by Provider: 08:45 Chief Complaint: Debility following fall with right clavicle fracture HPI: This is a 88 yoWF clinic pt of Dr. Dobbins and Dr. Marrero cardiology in [place] who has a PMH of known lung mass did not pursue that a few years ago who presents to inpatient rehab following an observation stay after a fall sustaining a right clavicle fracture. She lives at home alone shes been falling a lot and has become quite debilitated and the goal is to return home to independent living with ADL independence and ambulatory status independent. 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 She does recall meeting me. At this current time pt is very well controlled is aware of the additional lung mass that she has no intention of treating and Dr. Hoskins updated her on that fact and overall she's ready to get started to recover and ultimately return back to home. Subjective/Events-last exam Pt doing very well Urinary symptoms and a history or requiring UTI's required a UA with in and out Cath but that was negative SCD's are refused Heart rate remains in 100's but that was before her Metoprolol BM are good she did accept Senna today Slept very well Crackles in the right lower lobe so will initiate IS and she will be diligent with that Conferred with RN Reviewed therapy notes Review of Systems General: Fatigue Musculoskeletal: arm pain Objective Exam Vital Signs Vital Signs Date Time Temp Pulse Resp B/P (MAP) Pulse Ox O2 Delivery O2 Flow Rate FiO2 11/23/18 17:09 98.1 78 20 153/75 (101) 97 Room Air Capillary Refill : Less Than 3 Seconds General Appearance: No Apparent Distress, WD/WN, Chronically ill HEENT: PERRL/EOMI, Normal ENT Inspection, Pharynx Normal, Moist Mucous Membranes Neck: Full Range of Motion, Normal Inspection, Non Tender, Supple, Limited Range of Motion (to the right) Respiratory: Chest Non Tender, Normal Breath Sounds, No Accessory Muscle Use, No Respiratory Distress, Crackles (RLL) Cardiovascular: Regular Rate, Rhythm, No Edema, No Gallop, No JVD, No Murmur Gastrointestinal: Normal Bowel Sounds, No Organomegaly, No Pulsatile Mass, Non Tender, Soft Back: Normal Inspection, No CVA Tenderness, No Vertebral Tenderness Extremity: Normal Capillary Refill, Normal Inspection, Normal Range of Motion, Non Tender, No Calf Tenderness, No Pedal Edema Neurologic/Psychiatric: Alert, Oriented x3, No Motor/Sensory Deficits, Normal 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 FIM Transfers Therapy Code Descriptions/Definitions Functional [place] Measure: 0=Not Assessed/NA 4=Minimal Assistance 1=Total Assistance 5=Supervision or Setup 2=Maximal Assistance 6=Modified [place] 3=Moderate Assistance 7=Complete [place] Therapy Quality Codes: 6 Independent with activity with or without an assistive device 5 Patient requires set up or clean up by helper. Patient completes activity by themselves 4 Supervision or touching assist (CGA). [place] provide cues , steadying assist 3 The helper provides less than half the effort to complete the activity 2 The helper provides more than half the effort to complete the activity 1 Dependent. The helper does all the effort to complete an activity 7 Patient refused to complete or attempt activity 9 The patient did not perform the activity before the current illness or injury 88 Not attempted due to Medical conditions or safety concerns Transfers (B, C, W/C) (FIM): 3 (use of SPC required MOD A to perform sit to stand) Scootin (assist of 2 to scoot) Rollin Roll Left to Right (QC): 3 Supine to/from Sit: 1 (assist of 2 to lie down; max assist to sit up) Sit to/from Stand: 3 (mod assist to come to a stand) Sit to Lying (QC): 1 Sit to Stand (QC): 3 Chair/Gkx-fj-Eyqbv Xfer(QC): 4 (min assist for safety and balance) Gait Training Does the Patient Walk?: Yes Gait (FIM): 2 Distance (FIM): 1=up to 49 ft Walk 10 feet (QC): 3 (assist for balance and safety with cane) Walk 50 ft with 2 Turns(QC): 88 Walk 150 ft (QC): 88 Walking 10ft/uneven surface-QC: 88 Gait Level of Assist: 3 Gait Persons Needed: 1 Gait Assistive Device: Cane Single Point Wheelchair Training Does the Pt Use a Wheelchair?: No Stair Training Stairs (FIM): 0 1 Step (curb) (QC): 88 4 Steps (QC): 88 12 Steps (QC): 88 Balance Picking up an Object (QC): 88 Mental Status/Objective Comprehension: 6 Expression: 6 Social Interaction: 7 Problem Solvin Memory: 5 ADL-Treatment Feedin (set up ) Eating (QC): 4 Groomin (CGA while standing at sink. pt required assist with set up of items) Oral Hygiene (QC): 4 Bathin Bathing Location: L Upper Leg, R Upper Leg, Chest, Abdomen, Perineal Area Shower/Bathe Self (QC): 3 Upper Extremity Dressin (crop puller shirt) Upper Body Dressing (QC): 1 Lower Extremity Dressin (underpants, pants, tre socks) Lower Body Dressing (QC): 1 On/Off Footwear (QC): 1 Toiletin (requried assist with 3/3 toileting tasks) Toileting Hygiene (QC): 1 Toilet/Commode Transfer: 3 (use of SPC required MOD A to perform sit to stand) Toilet Transfer (QC): 3 Shower: 3 (use of SPC, GB required MOD A to perform sit to standshower chair) 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 but does not wish to have work-up or treatment CAD with stents in place PVD with stents in place Lives alone CHF UTI's Crackles RLL acute Plan: Inpatient rehab protocol Ambulation with walker for fall prevention Regain independence with ADLs with right clavicle fracture and arm in sling Use platform to help navigate ambulation due to clavicle fracture Prevent delirium and maintain on Tylenol and Ultram for pain Right arm sling IS (1) Fall on same level (2) Congestive heart failure (3) B12 deficiency (4) Recurrent UTI (5) Hyperlipemia (6) PVD (peripheral vascular disease) (7) CAD (coronary artery disease) (8) Coronary arteriosclerosis (9) Clavicle fracture (10) Hypertension (11) Lung mass (12) Peripheral vascular disease COLLEEN OVIEDO DO Nov 23, 2018 09:13
--- NOTE | 2018-11-23 11:19 | Physical Therapy Daily Note ---
PT Daily Note-Current Subjective Agrees to PT. Reports she rested well. Reports she feels stiff today. Mental Status Patient Orientation: Person, Place, Time, Situation Transfers Therapy Code Descriptions/Definitions Functional [place] Measure: 0=Not Assessed/NA 4=Minimal Assistance 1=Total Assistance 5=Supervision or Setup 2=Maximal Assistance 6=Modified [place] 3=Moderate Assistance 7=Complete [place] Therapy Quality Codes: 6 Independent with activity with or without an assistive device 5 Patient requires set up or clean up by helper. Patient completes activity by themselves 4 Supervision or touching assist (CGA). [place] provide cues , steadying assist 3 The helper provides less than half the effort to complete the activity 2 The helper provides more than half the effort to complete the activity 1 Dependent. The helper does all the effort to complete an activity 7 Patient refused to complete or attempt activity 9 The patient did not perform the activity before the current illness or injury 88 Not attempted due to Medical conditions or safety concerns Transfers (B, C, W/C) (FIM): 3 Sit to/from Stand: 3 (mod assist to come to a stand with skilled cues for sequencing. Only uses left UE to push up; right UE in sling.) Car Transfer (QC): 3 (assist to get her legs into the car) Multiple sit to stand transfers throughout course of treatment. Weight Bearing sling right UE; Physician reports she may use her right UE for use in a platform walker. Gait Training Does the Patient Walk?: Yes Gait (FIM): 2 Distance (FIM): 6=328-23 ft Distance: 70 ft x 2 Walk 10 feet (QC): 3 Walk 50 ft with 2 Turns(QC): 3 Walk 150 ft (QC): 88 Walking 10ft/uneven surface-QC: 3 Gait Level of Assist: 3 (mod assist for balance and safety; assist with walker; skilled cues for correct use of walker) Gait Assistive Device: Walker Platform Gait is slow and guarded at the right UE; decreased step length. Stair Training Stairs (FIM): 1 #of Steps: 1 1 Step (curb) (QC): 3 (mod assist to step up) 4 Steps (QC): 88 12 Steps (QC): 88 Stairs: Pattern: Step to Balance Picking up an Object (QC): 88 Exercises Seated Therapy Exercises: Ankle pumps, Long arc quads, Hip flexion Seated Reps: 15 (to promote LE ROM and strength for functional transfers) Treatments Functional gait training with use of platform walker; transfers; safety Assessment Current Status: Good Progress Pt is stiff and guarded this morning; as treatment wore on, she moved more freely. Improved gait with use of platform walker; still needs mod assist with sit to stand trasnfers. PT Short Term Goals Short Term Goals Time Frame: Nov 29, 2018 Transfers (B,C,W/C) (FIM): 4 Gait (FIM): 4 PT Fci Goals Fci Goals PT Fci Goals Time Frame: Dec 14, 2018 Transfers (B,C,W/C) (FIM): 6 Sit to Lying (QC): 6 Lying-Sitting on Side/Bed(QC): 6 Sit to Stand (QC): 6 Rollin Roll Left to Right (QC): 6 Chair/Ggl-yx-Sfiun Xfer(QC): 6 Car Transfer (QC): 6 Does the Patient Walk: Yes Gait (FIM): 6 Gait distance (FIM): 3=150 ft Walk 10 feet (QC): 6 Walk 10ft-Uneven Surface(QC): 6 Walk 50ft with 2 Turns (QC): 6 Walk 150 ft (QC): 6 Gait Assistive Device: FWW Stairs (FIM): 2 # of Steps: 4 1 Step (curb) (QC): 6 4 Steps (QC): 6 12 Steps (QC): 88 Picking up an Object (QC): 88 PT Plan Problem List Problem List: Activity Tolerance, Functional Strength, Safety, Balance, Gait, Transfer, Bed Mobility Treatment/Plan Treatment Plan: Continue Plan of Care Treatment Plan: Bed Mobility, Education, Functional Activity [place], Functional Strength, Group Therapy, Gait, Safety, Therapeutic Exercise, Transfers Treatment Duration: Dec 14, 2018 Frequency: At least 5 of 7 days/Wk (IRF) Estimated Hrs Per Day: 1.5 hours per day Patient and/or Family Agrees t: Yes Safety Risks/Education Patient Education: Transfer Techniques, Safety Issues Teaching Recipient: Patient Teaching Methods: Demonstration, Discussion Response to Teaching: Reinforcement Needed Discharge Recommendations Therapy D/C Recommendations: Physical Therapy Home Care Time/GCodes Time In: 915 Time Out: 1015 Total Billed Treatment Time: 60 Total Billed Treatment visit FA 60 SHAHNAZ SMITH PT Nov 23, 2018 11:18
--- NOTE | 2018-11-23 11:41 | Occupational Ther Daily Note ---
OT Current Status-Daily Note Subjective pt sitting in recliner chair upon OT arrival. pt agreed to OT TX session with focus on increase UE ROM, IADL tasks, and functional transfers. pt reports Right shoulder 11/01. NSG aware. CLARIFICATION FROM DR OVIEDO. pt has no restriction for RUE. Mental Status/Objective Therapy Code Descriptions/Definitions Functional [place] Measure: 0=Not Assessed/NA 4=Minimal Assistance 1=Total Assistance 5=Supervision or Setup 2=Maximal Assistance 6=Modified [place] 3=Moderate Assistance 7=Complete [place] ADL-Treatment Therapy Code Descriptions/Definitions Functional [place] Measure: 0=Not Assessed/NA 4=Minimal Assistance 1=Total Assistance 5=Supervision or Setup 2=Maximal Assistance 6=Modified [place] 3=Moderate Assistance 7=Complete [place] Therapy Quality Codes: 6 Independent with activity with or without an assistive device 5 Patient requires set up or clean up by helper. Patient completes activity by themselves 4 Supervision or touching assist (CGA). [place] provide cues , steadying assist 3 The helper provides less than half the effort to complete the activity 2 The helper provides more than half the effort to complete the activity 1 Dependent. The helper does all the effort to complete an activity 7 Patient refused to complete or attempt activity 9 The patient did not perform the activity before the current illness or injury 88 Not attempted due to Medical conditions or safety concerns Lower Body Dressing (QC): 3 pt education on use of AE for LB dressing. pt required ADDITIONAL timing to marie/ doff tre socks. pt required assist to doff tre socks despite use of AE. but demo ability to marie with use of sock aid. noted slow movement with all tasks even with LUE. Other Treatment pt friend brought suitcase full of clothing for pt. pt refused to stand to to go through clothing secondary to being tired. suitcase placed on chair and in front of pt. pt required MAX encouragement to use RUE as much as possible. pt stated "I am favoring my right arm" pt education on importance of using RUE. pt verbalized understanding but still required cuing to use arm. noted INCREASED timing to complete task. post placing all clothing on paperhanger supervisor. PROM perform to RUE to end range 5X2 shoulder flex (80 degrees) , 5X2 shoulder ADD / ABD (40 degrees), 5X2 elbow flex/ ext. post OT session pt sitting in recliner chair, kenneht light within reach, all needs met. Education OT Patient Education: Correct positioning, Modified ADL techniques, Progress toward Goal/Update tx plan, Purpose of tx/functional activities, Reviewed precautions, Rehab process, Safety issues, Transfer techniques, Use of adapted equipment Teaching Recipient: Patient Teaching Methods: Demonstration, Discussion Response to Teaching: Verbalize Understanding, Return Demonstration OT Short Term Goals Short Term Goals Time Frame: Dec 06, 2018 Eating(FIM): 6 Grooming(FIM): 5 Bathing(FIM): 4 Bathing Location: L Arm, R Arm, L Upper Leg, R Upper Leg, L Lower Leg (including foot), R Lower Leg (including foot), Chest, Abdomen, Buttocks, Perineal Area Upper Body Dressing(FIM): 4 Lower Body Dressing(FIM): 4 Toileting(FIM): 4 Transfers (B,C,W/C) (FIM): 4 Toilet/Commode Transfer(FIM): 4 Shower Transfer(FIM): 4 Comprehension(FIM): 6 Expression(FIM): 6 Social Interaction(FIM): 7 Problem Solving(FIM): 5 Memory(FIM): 5 Additional Short Term Goals: 1-Demonstrate ADL Tasks, 2-Verbalize Understanding, 3-ImproveStrength/Desean 1=Demonstrate adherence to instructed precautions during ADL tasks. 2=Patient will verbalize/demonstrate understanding of assistive devices/modifications for ADL. 3=Patient will improve strength/tolerance for activity to enable patient to perform ADL's. OT Electronic Resources Librarian Goals Assisted Goals Time Frame: Dec 20, 2018 Eating (FIM): 7 Eating (QC): 6 Groomin Oral Hygiene (QC): 6 Bathing(FIM): 6 Bathing Location: L Arm, R Arm, L Upper Leg, R Upper Leg, L Lower Leg (including foot), R Lower Leg (including foot), Chest, Abdomen, Buttocks, Perineal Area Shower/Bathe Self (QC): 6 Upper Body Dressing(FIM): 6 Upper Body Dressing (QC): 6 Lower Body Dressing(FIM): 6 Lower Body Dressing (QC): 6 On/Off Footwear (QC): 6 Toileting(FIM): 6 Toileting Hygiene (QC): 6 Transfers (B,C,W/C) (FIM): 6 Toilet/Commode Transfer(FIM): 6 Toilet/Commode Transfer (QC): 6 Shower Transfer(FIM): 6 Comprehension(FIM): 6 Expression (FIM): 6 Social Interaction(FIM): 7 Problem Solving(FIM): 5 Memory(FIM): 5 Additional Goals: 1-Demonstrate ADL Tasks, 2-Verbalize Understanding, 3- ImproveStrength/Desean 1=Demonstrate adherence to instructed precautions during ADL tasks. 2=Patient will verbalize/demonstrate understanding of assistive devices/modifications for ADL. 3=Patient will improve strength/tolerance for activity to enable patient to perform ADL's. OT Education/Plan Problem List/Assessment Assessment: Decreased Activ Tolerance, Decreased Safety Aware, Decreased UE Strength, Impaired Bed Mobility, Impaired Coordination, Impaired Funct Balance, Impaired I ADL's, Impaired Self-Care Skills, Restricted Funct UE ROM pt presents with functional limitations affecting areas of ADLS and functional transfers with the above mention deficits. pt would benefit from skilled OT services to increase independence with ADL and functional transfers. Discharge Recommendations Plan/Recommendations: Continue POC Treatment Plan/Plan of Care Treatment,Training & Education: Yes Patient would benefit from OT for education, treatment and training to promote independence in ADL's, mobility, safety and/or upper extremity function for ADL's. Plan of Care: ADL Retraining, Caregiver Training, Functional Mobility, Group Exercise/Act as Ind, UE Funct Exercise/Act Treatment Duration: Dec 20, 2018 Frequency: At least 5 of 7 days/Wk (IRF) Estimated Hrs Per Day: 1 hour per day (60-90 minutes per day) Agreement: Yes Rehab Potential: Good Time/GCodes Start Time: 10:45 Stop Time: 12:00 Billed Treatment Time ADL 25 minutes, 2 units FA 50 minutes, 3 units ANTONETTE GUEVARA OT Nov 23, 2018 11:41
[2018-11-23] MEDS ORDERED: PATIENT MAY USE OWN MED,SINGLE MED PO SCH (12:00)
--- NOTE | 2018-11-23 12:54 | NUR ---
PSYCHOLOGY LECTURER met with patient to complete initial assessment. Patient was alert and oriented and agreeable to assessment. Patient admitted to ARU from internally with a right proximal clavicle fracture after sustaining a fall. Patient reports fall as a result of loss of balance. Prior to hospitalization patient resided alone in a multilevel home in [place], [place]. The home has 3 steps at the entrance of the crotch; however, you patient utilizes grab bar for assistance. Prior to this fall patient utilized a front-wheeled walker at home and a single-point cane for community ambulation. The home is also equipped with a walk in shower with a seat and several grab bars. Patient also receives Meals on Wheels through [facility]. Primary local contact identified as friend Kellee of [place] at [phone] and hat, neighbor at [phone]. Patient does not have any local family however does list son Mohit of [place] as a contact at [phone]. PCP identified as Dr. Venkatesh Dobbins and senior storage engineer as Dr. Marrero of [place]. Insurance verified as Medicare and Blue Cross Medicare supplement with [employer] prescription coverage. Patient's preferred pharmacy listed as [facility]. PSYCHOLOGY LECTURER reviewed typical ARU length of stay and weekly team conferences. Patient does inquire about PSYCHOLOGY LECTURER assisting with ordering a soft sock aide. PSYCHOLOGY LECTURER will do such and will continue to follow.
[2018-11-23] MEDS: MOVE FREE JOINT HEALTH PO SCH (13:48)
[2018-11-23] MEDS: LUTEIN 40 MG PO SCH (13:48)
--- NOTE | 2018-11-23 14:30 | Speech Therapy Daily Note ---
Speech Daily Progress Note Subjective Date Seen by Provider: Nov 23, 2018 Time Seen by Provider: 00:30 Patient was pleasant and cooperative, actively participating in all session activities Objective Patient participated in sequencing tasks with 80% success given minimal-moderate cueing. Assessment Assessment Current Status: Good Progress Treatment Plan Continue Plan of Care Communication Comprehension: 6 Expression: 6 Social Cognition Social Interaction: 7 Problem Solvin Memory: 5 Speech Short Term Goals Short Term Goals Short Term Goals Patient will demonstrate simple problem solving and memory with 80% accuracy when given minimal cues Comprehension: 6 Expression: 6 Social Interaction: 7 Problem Solvin Memory: 5 Speech Commercial Real Estate Appraiser Goals Commercial Real Estate Appraiser Goals Patient will improve cognitive-communication necessary for safety and daily living tasks with minimal assist Comprehension: 6 Expression: 6 Social Interaction: 7 Problem Solvin Memory: 5 Speech-Plan Patient/Family Goals Patient/Family Goals: Improved cognition Treatment Plan Speech Therapy Treatment Plan: Continue Plan of Care Patient is making good progress towards goals. She did well with sequencing task and required minimal assist. Treatment Duration: Dec 06, 2018 Frequency: 5 times per week Estimated Hrs Per Day: .5 hour per day Rehab Potential: Good Barriers to Learning: cognitive-communication Pt/Family Agrees to Plan: Yes Safety Risks/Education Teaching Recipient: Patient Teaching Methods: Discussion Response to Teaching: Verbalize Understanding Education Topics Provided: cognition and room safety Time Speech Therapy Time In: 10:15 Speech Therapy Time Out: 10:45 Total Billed Time: 30 Billed Treatment Time 1VALERIA TIFFANY DUVALArtemio ROSALES Nov 23, 2018 14:30
--- NOTE | 2018-11-23 14:38 | Physical Therapy Daily Note ---
PT Daily Note-Current Subjective Agreeable to PT Transfers Therapy Code Descriptions/Definitions Functional [place] Measure: 0=Not Assessed/NA 4=Minimal Assistance 1=Total Assistance 5=Supervision or Setup 2=Maximal Assistance 6=Modified [place] 3=Moderate Assistance 7=Complete [place] Therapy Quality Codes: 6 Independent with activity with or without an assistive device 5 Patient requires set up or clean up by helper. Patient completes activity by themselves 4 Supervision or touching assist (CGA). [place] provide cues , steadying assist 3 The helper provides less than half the effort to complete the activity 2 The helper provides more than half the effort to complete the activity 1 Dependent. The helper does all the effort to complete an activity 7 Patient refused to complete or attempt activity 9 The patient did not perform the activity before the current illness or injury 88 Not attempted due to Medical conditions or safety concerns Weight Bearing sling right UE; Physician reports she may use her right UE for use in a platform walker. Treatments Sit to stand with mod assist and skilled cues for sequencing. Pt ambulated x 60 ft and 50 ft with FWW platform with CGA and cues for posture and step length. Pt on commode post treatment Assessment Current Status: Good Progress Gait is improving. Still needs much assist to stand up. PT Short Term Goals Short Term Goals Time Frame: Nov 29, 2018 Transfers (B,C,W/C) (FIM): 4 Gait (FIM): 4 PT Photoflash Powder Mixer Goals Photoflash Powder Mixer Goals PT Photoflash Powder Mixer Goals Time Frame: Dec 14, 2018 Transfers (B,C,W/C) (FIM): 6 Sit to Lying (QC): 6 Lying-Sitting on Side/Bed(QC): 6 Sit to Stand (QC): 6 Rollin Roll Left to Right (QC): 6 Chair/Tqs-pg-Axvyp Xfer(QC): 6 Car Transfer (QC): 6 Does the Patient Walk: Yes Gait (FIM): 6 Gait distance (FIM): 3=150 ft Walk 10 feet (QC): 6 Walk 10ft-Uneven Surface(QC): 6 Walk 50ft with 2 Turns (QC): 6 Walk 150 ft (QC): 6 Gait Assistive Device: FWW Stairs (FIM): 2 # of Steps: 4 1 Step (curb) (QC): 6 4 Steps (QC): 6 12 Steps (QC): 88 Picking up an Object (QC): 88 PT Plan Problem List Problem List: Activity Tolerance, Functional Strength, Safety, Balance, Gait, Transfer, Bed Mobility Treatment/Plan Treatment Plan: Continue Plan of Care Treatment Plan: Bed Mobility, Education, Functional Activity [place], Functional Strength, Group Therapy, Gait, Safety, Therapeutic Exercise, Transfers Treatment Duration: Dec 14, 2018 Frequency: At least 5 of 7 days/Wk (IRF) Estimated Hrs Per Day: 1.5 hours per day Patient and/or Family Agrees t: Yes Time/GCodes Time In: 1300 Time Out: 1330 Total Billed Treatment Time: 30 Total Billed Treatment visit GT 30 SHAHNAZ SMITH PT Nov 23, 2018 14:38
[2018-11-23] MEDS: GABAPENTIN 100 MG (NEURONTIN) CAP PO SCH (16:17)
--- NOTE | 2018-11-23 16:20 | NUR ---
LIKES PLATFORM WALKER BETTER THAN CANE. SLING LEFT OFF RIGHT ARM AND PATIENT WAS ABLE TO EAT WITH THAT ARM SOME. VOICES UNDERSTANDING TO TRY TO USE RIGHT ARM MUCH POSSIBLE. MEDICATED WITH PYRIDIUM FOR MILD URINARY BURNING - STATES IS MUCH IMPROVED TODAY.
[2018-11-23] MEDS: PHENAZOPYRIDINE 100 MG (PYRIDIUM) TABLET PO PRN (16:23)
[2018-11-23 17:09] VITALS: BP 153/75
[2018-11-23] MEDS: AMITRIPTYLINE 25 MG (ELAVIL) TAB PO SCH (20:46)
[2018-11-23] MEDS: ATORVASTATIN 40 MG (LIPITOR) TABLET PO SCH (20:46)
--- NOTE | 2018-11-23 22:48 | Individualized Plan of Care ---
Individualized Plan of Care Rehab Nursing IPOC Order Admission Date Nov 22, 2018 at 11:30 Current Orders Orders Admission Order(Inpt,Obs,Sdc) (11/22/18 10:33) Vital Signs: Per Unit Policy ( 08,16,00 (11/22/18 10:33) Supervisor Wet Room-Inpt Rehab Con (11/22/18 10:33) Rehab Nursing Orders-Ipoc (11/22/18 10:33) Physical Therapy Rehab Orders (11/22/18 10:33) Occupational Therapy Rehab Ord (11/22/18 10:33) Speech Therapy Rehab Orders (11/22/18 10:33) Intake & Output 06,14,22 (11/22/18 10:33) Precautions (Aru) (11/22/18 10:33) Weekly Weight (Lbs) WEEK (11/22/18 10:33) Rehab-Intensity Of Therapy (11/22/18 10:33) Initiate Admission Nursing Pro .admission (11/22/18 10:33) Ambulate 08,12,20 (11/22/18 12:42) Sequential Compression Device 08,20 (11/22/18 12:42) Dvt/Vte Risk - Notifiy Physici 08 (11/22/18 12:42) Phenazopyridine Tablet (Pyridium Tablet) (11/22/18 14:15) Urine Culture (11/22/18 15:05) Urinalysis (11/22/18 15:05) Amitriptyline Tablet (Elavil Tablet) (11/22/18 21:00) Aspirin Chewable Tablet (Baby Aspirin Ch (11/23/18 09:00) Atorvastatin Tablet (Lipitor) (11/22/18 21:00) Cyanocobalamin Tablet (Vitamin B-12 Tabl (11/23/18 07:00) Gabapentin Capsule/Tablet (Neurontin Cap (11/22/18 17:00) Metoprolol Succinate (Xl) Tab (Toprol Xl (11/23/18 09:00) Therapeutic Multivitamin Tab (Vitamins, (11/23/18 07:00) Sacubitril/Valsartan 24/26 Mg (Entresto (11/22/18 21:00) Spironolactone Tablet (Aldactone Tablet) (11/23/18 09:00) Tramadol Tablet (Ultram Tablet) (11/22/18 14:30) (Nf) Glucosam/Chond/Hyalu/Cf Borate (Mov (11/23/18 13:30) (Nf) Lutein (11/23/18 12:30) Polyethylene Glycol Powder Pkt (Miralax (11/22/18 14:54) Tramadol Tablet (Ultram Tablet) (11/22/18 14:30) Acetaminophen Tablet (Tylenol Tablet) (11/22/18 14:30) Calcium Carbonate Chew Tablet (Antacid C (11/22/18 14:30) Diphenhydramine Tablet (Benadryl Tablet) (11/22/18 14:30) Melatonin Tablet (Melatonin Tablet) (11/22/18 14:30) Hydrocodone/Apap 5/325 Tablet (Lortab 5 (11/22/18 14:30) Ondansetron Injection (Zofran Injectio (11/22/18 14:30) Ondansetron Oral Dissolve Tab (Zofran (11/22/18 14:30) Senna S Tablet (Senokot S Tablet) (11/22/18 21:00) Docusate Sodium Capsule (Colace Capsule) (11/22/18 14:30) Patient Visit (11/22/18 ) Speech Sound Lang Comp (11/22/18 ) Patient Visit (11/22/18 ) Pt Eval Moderate Complexity (11/22/18 ) Functional Activities, Ea 15 (11/22/18 ) Sodium 2g (2000 Mg) (11/22/18 Dinner) Patient Visit (11/22/18 ) Gait Training, Ea 15 Min (11/22/18 ) Functional Activities, Ea 15 (11/22/18 ) Code/Resuscitation (11/22/18 17:26) Tramadol Tablet (Ultram Tablet) (11/23/18 09:00) Incentive Spirometry (Nursing) Q2H (11/23/18 09:10) Incentive Spirometry Initial (11/23/18 09:10) Patient May Use Own Med,Single (Patient (11/23/18 12:00) Patient Visit (11/23/18 ) Functional Activities, Ea 15 (11/23/18 ) Patient Visit (11/23/18 ) Gait Training, Ea 15 Min (11/23/18 ) Patient Visit (11/23/18 ) Treat. Speech/Lang/Voice (11/23/18 ) Rehab Nursing Orders: Ongoing Assess. of Function Status, Bladder Management, Bladder Training, Bowel Management, Disease Management & Educaiton, DVT Prophylaxis, Fluid/Electrolyte/Nutrition Mgmt, Infection Prevention, Medication Management & Education, Management of Risks & Complications, Pain Management, Patient/Family Support, Safety Management Intensity of Therapy to be met Patient to be seen: Min.3h per day/5 of 7d PT IPOC Problem List: Activity Tolerance, Functional Strength, Safety, Balance, Gait, Transfer, Bed Mobility Treatment Plan: Continue Plan of Care Bed Mobility, Education, Functional Activity [place], Functional Strength, Group Therapy, Gait, Safety, Therapeutic Exercise, Transfers Treatment Duration: Dec 14, 2018 Frequency: At least 5 of 7 days/Wk (IRF) Estimated Hrs Per Day: 1.5 hours per day OT IPOC Problems: Decreased Activ Tolerance, Decreased Safety Aware, Decreased UE Strength, Impaired Bed Mobility, Impaired Coordination, Impaired Funct Balance, Impaired I ADL's, Impaired Self-Care Skills, Restricted Funct UE ROM OT Treatment, Training and Edu: Yes OT Problems pt presents with functional limitations affecting areas of ADLS and functional transfers with the above mention deficits. pt would benefit from skilled OT services to increase independence with ADL and functional transfers. Plan of Care: ADL Retraining, Caregiver Training, Functional Mobility, Group Exercise/Act as Ind, UE Funct Exercise/Act Treatment Duration: Dec 20, 2018 Frequency: At least 5 of 7 days/Wk (IRF) Estimated Hrs Per Day: 1 hour per day (60-90 minutes per day) ST IPOC Speech Therapy Treatment Plan: Continue Plan of Care Treatment Duration: Dec 06, 2018 Frequency: 5 times per week Estimated Hrs Per Day: .5 hour per day Supervisor Wet Room/Case Mgmt Supervisor Wet Room/Case Managemen: Discharge Planning Dietitian/Feed Project Engineer Dietitian/Feed Project Engineer to monitor nutritional status and make changes and/or recommendations as needed and work with speech pathology on dietary upgrades as the occur. Physician IPOC Medical Issues being managed closely and that require the 24 hour availability of a physician: h/o multiple falls ans severe sepsis hx along with lung masses she declines w/u and treatment for increases risk for decompensation. Brief Synthesis of Preadmission Screen, Post-Admission Evaluation, and Therapy Evaluations: PT will evaluate and manage pain with mobility and decrease falls OT will evaluate and increase ADL independence ST will evaluate for cognition deficit Medical Prognosis: Good Anticipated Length of Stay: 7 days COLLEEN OVIEDO DO Nov 23, 2018 22:48
[2018-11-24 05:46] VITALS: BP 156/70
[2018-11-24] MEDS: MULTIVIT W/MINERALS TAB (THERAGRAN M) PO SCH (06:25)
[2018-11-24] MEDS: CYANOCOBALAMIN 1,000 MCG (VITAMIN B-12) TABLET PO SCH (06:26)
[2018-11-24] MEDS: SACUBITRIL/VALSARTAN 24/26 MG (ENTRESTO) TABLET PO SCH ×2 (08:11→20:46)
[2018-11-24] MEDS: SENNA W/DOCUSATE (SENOKOT S) TABLET PO SCH ×2 (08:11→20:47)
[2018-11-24] MEDS: SPIRONOLACTONE 25 MG (ALDACTONE) TAB PO SCH (08:12)
[2018-11-24] MEDS: LUTEIN 40 MG PO SCH (08:12)
[2018-11-24] MEDS: meTOprolol SUCCINATE 100 MG (TOPROL XL) TAB PO SCH (08:12)
[2018-11-24] MEDS: ASPIRIN 81 MG CHEW (CHILDREN'S ASA) PO SCH (08:12)
[2018-11-24] MEDS: MOVE FREE JOINT HEALTH PO SCH (08:12)
--- NOTE | 2018-11-24 09:01 | PM&R Progress Note ---
Subjective HPI/CC On Admission Date Seen by Provider: Nov 24, 2018 Time Seen by Provider: 09:00 Chief Complaint: Debility following fall with right clavicle fracture HPI: This is a 88 yoWF clinic pt of Dr. Dobbins and Dr. Marrero cardiology in [place] who has a PMH of known lung mass did not pursue that a few years ago who presents to inpatient rehab following an observation stay after a fall sustaining a right clavicle fracture. She lives at home alone shes been falling a lot and has become quite debilitated and the goal is to return home to independent living with ADL independence and ambulatory status independent. 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 She does recall meeting me. At this current time pt is very well controlled is aware of the additional lung mass that she has no intention of treating and Dr. Hoskins updated her on that fact and overall she's ready to get started to recover and ultimately return back to home. Subjective/Events-last exam Patient doing very well Building confidence with intensive therapy and direction from physical therapy to prevent falls Bowel regimen is working pretty well for the patient Does not really require the sling only if it starts aching Using walker with a platform for the clavicle fracture discomfort Check meds and labs Conferred with RN Reviewed therapy notes Barriers to returning home is obtaining adequate strength, significant fall reduction, and managing clavicle fracture discomfort Review of Systems General: Fatigue Musculoskeletal: arm pain Objective Exam Vital Signs Vital Signs Date Time Temp Pulse Resp B/P (MAP) Pulse Ox O2 Delivery O2 Flow Rate FiO2 11/24/18 11:40 98.0 11/24/18 09:00 Room Air 11/24/18 05:46 95 22 156/70 (98) 96 Capillary Refill : Less Than 3 Seconds General Appearance: No Apparent Distress, WD/WN, Chronically ill HEENT: PERRL/EOMI, Normal ENT Inspection, Pharynx Normal, Moist Mucous Membranes Neck: Full Range of Motion, Normal Inspection, Non Tender, Supple, Limited Range of Motion (to the right) Respiratory: Chest Non Tender, Normal Breath Sounds, No Accessory Muscle Use, No Respiratory Distress, Crackles (RLL) Cardiovascular: Regular Rate, Rhythm, No Edema, No Gallop, No JVD, No Murmur Gastrointestinal: Normal Bowel Sounds, No Organomegaly, No Pulsatile Mass, Non Tender, Soft Back: Normal Inspection, No CVA Tenderness, No Vertebral Tenderness Extremity: Normal Capillary Refill, Normal Inspection, Normal Range of Motion, Non Tender, No Calf Tenderness, No Pedal Edema Neurologic/Psychiatric: Alert, Oriented x3, No Motor/Sensory Deficits, Normal Mood/Affect, food vendor II-XII Norm as Tested, Motor Weakness (generalized all extremities, balance deficit noted, high fall risk when walking with walker) Skin: Normal Color, Warm/Dry Lymphatic: No Adenopathy Results/Procedures Lab Patient resulted labs reviewed. FIM Transfers Therapy Code Descriptions/Definitions Functional [place] Measure: 0=Not Assessed/NA 4=Minimal Assistance 1=Total Assistance 5=Supervision or Setup 2=Maximal Assistance 6=Modified [place] 3=Moderate Assistance 7=Complete [place] Therapy Quality Codes: 6 Independent with activity with or without an assistive device 5 Patient requires set up or clean up by helper. Patient completes activity by themselves 4 Supervision or touching assist (CGA). [place] provide cues , steadying assist 3 The helper provides less than half the effort to complete the activity 2 The helper provides more than half the effort to complete the activity 1 Dependent. The helper does all the effort to complete an activity 7 Patient refused to complete or attempt activity 9 The patient did not perform the activity before the current illness or injury 88 Not attempted due to Medical conditions or safety concerns Transfers (B, C, W/C) (FIM): 3 Scootin (assist of 2 to scoot) Rollin Roll Left to Right (QC): 3 Supine to/from Sit: 1 (assist of 2 to lie down; max assist to sit up) Sit to/from Stand: 3 (mod assist to come to a stand with skilled cues for sequencing. Only uses left UE to push up; right UE in sling.) Sit to Lying (QC): 1 Sit to Stand (QC): 3 Chair/Kca-px-Wffft Xfer(QC): 4 (min assist for safety and balance) Car Transfer (QC): 3 (assist to get her legs into the car) Gait Training Does the Patient Walk?: Yes Gait (FIM): 2 Distance (FIM): 0=292-50 ft Distance: 70 ft x 2 Walk 10 feet (QC): 3 Walk 50 ft with 2 Turns(QC): 3 Walk 150 ft (QC): 88 Walking 10ft/uneven surface-QC: 3 Gait Level of Assist: 3 (mod assist for balance and safety; assist with walker; skilled cues for correct use of walker) Gait Persons Needed: 1 Gait Assistive Device: Walker Platform Wheelchair Training Does the Pt Use a Wheelchair?: No Stair Training Stairs (FIM): 1 #of Steps: 1 1 Step (curb) (QC): 3 (mod assist to step up) 4 Steps (QC): 88 12 Steps (QC): 88 Stairs: Pattern: Step to Balance Picking up an Object (QC): 88 Mental Status/Objective Comprehension: 6 Expression: 6 Social Interaction: 7 Problem Solvin Memory: 5 ADL-Treatment Feedin (set up ) Eating (QC): 4 Groomin (CGA while standing at sink. pt required assist with set up of items) Oral Hygiene (QC): 4 Bathin Bathing Location: L Upper Leg, R Upper Leg, Chest, Abdomen, Perineal Area Shower/Bathe Self (QC): 3 Upper Extremity Dressin (toe puller shirt) Upper Body Dressing (QC): 1 Lower Extremity Dressin (underpants, pants, tre socks) Lower Body Dressing (QC): 3 On/Off Footwear (QC): 1 Toiletin (requried assist with 3/3 toileting tasks) Toileting Hygiene (QC): 1 Toilet/Commode Transfer: 3 (use of SPC required MOD A to perform sit to stand) Toilet Transfer (QC): 3 Shower: 3 (use of SPC, GB required MOD A to perform sit to standshower chair) 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 but does not wish to have work-up or treatment CAD with stents in place PVD with stents in place Lives alone CHF UTI's Crackles RLL acute-improved with IS use Plan: Inpatient rehab protocol Ambulation with walker for fall prevention Regain independence with ADLs with right clavicle fracture and arm in sling Use platform to help navigate ambulation due to clavicle fracture Prevent delirium and maintain on Tylenol and Ultram for pain Right arm sling IS (1) Fall on same level (2) Congestive heart failure (3) B12 deficiency (4) Recurrent UTI (5) Hyperlipemia (6) PVD (peripheral vascular disease) (7) CAD (coronary artery disease) (8) Coronary arteriosclerosis (9) Clavicle fracture (10) Hypertension (11) Lung mass (12) Peripheral vascular disease COLLEEN OVIEDO DO Nov 24, 2018 09:01
--- NOTE | 2018-11-24 11:00 | Occupational Ther Daily Note ---
OT Current Status-Daily Note Subjective pt sitting in recliner chair upon OT arrival pt stated no pain with no activity and with activity 7/10 Right shoulder pain. pt agreed to OT TX session with focus on increasing RUE ROM, and physical aerodynamicist strength for daily activities. Mental Status/Objective Patient Orientation: Person, Place, Time, Situation Therapy Code Descriptions/Definitions Functional [place] Measure: 0=Not Assessed/NA 4=Minimal Assistance 1=Total Assistance 5=Supervision or Setup 2=Maximal Assistance 6=Modified [place] 3=Moderate Assistance 7=Complete [place] ADL-Treatment Therapy Code Descriptions/Definitions Functional [place] Measure: 0=Not Assessed/NA 4=Minimal Assistance 1=Total Assistance 5=Supervision or Setup 2=Maximal Assistance 6=Modified [place] 3=Moderate Assistance 7=Complete [place] Therapy Quality Codes: 6 Independent with activity with or without an assistive device 5 Patient requires set up or clean up by helper. Patient completes activity by themselves 4 Supervision or touching assist (CGA). [place] provide cues , steadying assist 3 The helper provides less than half the effort to complete the activity 2 The helper provides more than half the effort to complete the activity 1 Dependent. The helper does all the effort to complete an activity 7 Patient refused to complete or attempt activity 9 The patient did not perform the activity before the current illness or injury 88 Not attempted due to Medical conditions or safety concerns Other Treatment pt required MOD a to perform sit to stand and was retropulsive. pt demo ability to ambulated to TX gym approx 100 ft using platform walker with CGA once in gym pt given small bolster (4 inch) to complete shoulder flex/ bolster rolls. pt perform 5X2 bolster rolls achieving approx 50 degree flexion right shoulder. pt then given pillow case to complete shoulder ABD/ ADD with heat applied to shoulder for 10 minutes to increase ROM. noted pt perform 50 degree shoulder ABD and 10 degree shoulder ABB. post exercises pt stated she had a fall in 2002 in which she broke her right proximal humerus and has not had full ROM since then. (pt did not report this during evaluation). pt stated since then she only have minimal movement but enough to feed herself, and meal prep. pt stated she has about 5 degree less ROM compared to PLOF currently. pt then complete physical aerodynamicist strength close pins ranging from 1#-5# with Left hand 17 pins and Right hand ranging form 1-4# to increase physical aerodynamicist strength for daily activities. pt then transition into care of PT (Tara). all needs met. Education OT Patient Education: Progress toward Goal/Update tx plan, Purpose of tx/functional activities, Reviewed precautions, Rehab process, Safety issues, Transfer techniques Teaching Recipient: Patient Teaching Methods: Demonstration, Discussion Response to Teaching: Verbalize Understanding, Return Demonstration OT Short Term Goals Short Term Goals Time Frame: Dec 06, 2018 Eating(FIM): 6 Grooming(FIM): 5 Bathing(FIM): 4 Bathing Location: L Arm, R Arm, L Upper Leg, R Upper Leg, L Lower Leg (including foot), R Lower Leg (including foot), Chest, Abdomen, Buttocks, Perineal Area Upper Body Dressing(FIM): 4 Lower Body Dressing(FIM): 4 Toileting(FIM): 4 Transfers (B,C,W/C) (FIM): 4 Toilet/Commode Transfer(FIM): 4 Shower Transfer(FIM): 4 Comprehension(FIM): 6 Expression(FIM): 6 Social Interaction(FIM): 7 Problem Solving(FIM): 5 Memory(FIM): 5 Additional Short Term Goals: 1-Demonstrate ADL Tasks, 2-Verbalize Understanding, 3-ImproveStrength/Desean 1=Demonstrate adherence to instructed precautions during ADL tasks. 2=Patient will verbalize/demonstrate understanding of assistive devices/modifications for ADL. 3=Patient will improve strength/tolerance for activity to enable patient to perform ADL's. OT Detention Goals Detention Goals Time Frame: Dec 20, 2018 Eating (FIM): 7 Eating (QC): 6 Groomin Oral Hygiene (QC): 6 Bathing(FIM): 6 Bathing Location: L Arm, R Arm, L Upper Leg, R Upper Leg, L Lower Leg (including foot), R Lower Leg (including foot), Chest, Abdomen, Buttocks, Perineal Area Shower/Bathe Self (QC): 6 Upper Body Dressing(FIM): 6 Upper Body Dressing (QC): 6 Lower Body Dressing(FIM): 6 Lower Body Dressing (QC): 6 On/Off Footwear (QC): 6 Toileting(FIM): 6 Toileting Hygiene (QC): 6 Transfers (B,C,W/C) (FIM): 6 Toilet/Commode Transfer(FIM): 6 Toilet/Commode Transfer (QC): 6 Shower Transfer(FIM): 6 Comprehension(FIM): 6 Expression (FIM): 6 Social Interaction(FIM): 7 Problem Solving(FIM): 5 Memory(FIM): 5 Additional Goals: 1-Demonstrate ADL Tasks, 2-Verbalize Understanding, 3-ImproveStrength/Desean 1=Demonstrate adherence to instructed precautions during ADL tasks. 2=Patient will verbalize/demonstrate understanding of assistive devices/modifications for ADL. 3=Patient will improve strength/tolerance for activity to enable patient to perform ADL's. OT Education/Plan Problem List/Assessment Assessment: Decreased Activ Tolerance, Decreased Safety Aware, Decreased UE Strength, Impaired Bed Mobility, Impaired Coordination, Impaired Funct Balance, Impaired I ADL's, Impaired Self-Care Skills, Visual-Perceptual Deficit pt presents with functional limitations affecting areas of ADLS and functional transfers with the above mention deficits. pt would benefit from skilled OT services to increase independence with ADL and functional transfers. Discharge Recommendations Plan/Recommendations: Continue POC Barriers to Progress limited ROM in right UE increase Right shoulder pain Treatment Plan/Plan of Care Treatment,Training & Education: Yes Patient would benefit from OT for education, treatment and training to promote independence in ADL's, mobility, safety and/or upper extremity function for ADL's. Plan of Care: ADL Retraining, Caregiver Training, Functional Mobility, Group Exercise/Act as Ind, UE Funct Exercise/Act Treatment Duration: Dec 20, 2018 Frequency: At least 5 of 7 days/Wk (IRF) Estimated Hrs Per Day: 1 hour per day (60-90 minutes per day) Agreement: Yes Rehab Potential: Good Time/GCodes Start Time: 10:00 Stop Time: 11:00 Billed Treatment Time FA 60 minutes, 4 units ANTONETTE GUEVARA OT Nov 24, 2018 11:00
--- NOTE | 2018-11-24 12:21 | Physical Therapy Daily Note ---
PT Daily Note-Current Subjective Agreeable to PT. no complaints. Reports she rested well last night. Mental Status Patient Orientation: Person, Place, Time, Situation Transfers Therapy Code Descriptions/Definitions Functional [place] Measure: 0=Not Assessed/NA 4=Minimal Assistance 1=Total Assistance 5=Supervision or Setup 2=Maximal Assistance 6=Modified [place] 3=Moderate Assistance 7=Complete [place] Therapy Quality Codes: 6 Independent with activity with or without an assistive device 5 Patient requires set up or clean up by helper. Patient completes activity by themselves 4 Supervision or touching assist (CGA). [place] provide cues , steadying assist 3 The helper provides less than half the effort to complete the activity 2 The helper provides more than half the effort to complete the activity 1 Dependent. The helper does all the effort to complete an activity 7 Patient refused to complete or attempt activity 9 The patient did not perform the activity before the current illness or injury 88 Not attempted due to Medical conditions or safety concerns Weight Bearing sling right UE; Physician reports she may use her right UE for use in a platform walker. Gait Training Does the Patient Walk?: Yes Distance (FIM): 0=891-43 ft Distance: 125ft; 50 ft x 2 Gait Assistive Device: Walker Platform Forward flexed at hips with head down; decreased step length and clearance. Gait is "stiff" and guarded Exercises sit to stand 3 sets of 5 from varied surface heights to promote mod indep sit to stand. From a chair level, pt requires mod assist to come to a stand with skilled cues for sequencing. NuStep Minutes: 10 (to promote LE strength and fucntional activity [place] for transfers and giat. ) Assessment Current Status: Good Progress Progressing. Motivated. Transfers difficult but improved with sequencing. PT Short Term Goals Short Term Goals Time Frame: Nov 29, 2018 Transfers (B,C,W/C) (FIM): 4 Gait (FIM): 4 PT Usp Goals Tax Accountant Goals PT Tax Accountant Goals Time Frame: Dec 14, 2018 Transfers (B,C,W/C) (FIM): 6 Sit to Lying (QC): 6 Lying-Sitting on Side/Bed(QC): 6 Sit to Stand (QC): 6 Rollin Roll Left to Right (QC): 6 Chair/Hkq-hj-Hpodn Xfer(QC): 6 Car Transfer (QC): 6 Does the Patient Walk: Yes Gait (FIM): 6 Gait distance (FIM): 3=150 ft Walk 10 feet (QC): 6 Walk 10ft-Uneven Surface(QC): 6 Walk 50ft with 2 Turns (QC): 6 Walk 150 ft (QC): 6 Gait Assistive Device: FWW Stairs (FIM): 2 # of Steps: 4 1 Step (curb) (QC): 6 4 Steps (QC): 6 12 Steps (QC): 88 Picking up an Object (QC): 88 PT Plan Problem List Problem List: Activity Tolerance, Functional Strength, Safety, Balance, Gait, Transfer, Bed Mobility Treatment/Plan Treatment Plan: Continue Plan of Care Treatment Plan: Bed Mobility, Education, Functional Activity [place], Functional Strength, Group Therapy, Gait, Safety, Therapeutic Exercise, Transfers Treatment Duration: Dec 14, 2018 Frequency: At least 5 of 7 days/Wk (IRF) Estimated Hrs Per Day: 1.5 hours per day Patient and/or Family Agrees t: Yes Safety Risks/Education Patient Education: Transfer Techniques Teaching Recipient: Patient Teaching Methods: Demonstration Response to Teaching: Reinforcement Needed Discharge Recommendations Therapy D/C Recommendations: Physical Therapy Home Care Time/GCodes Time In: 1100 Time Out: 1146 Total Billed Treatment Time: 46 Total Billed Treatment visit GT 16 EX 30 SHAHNAZ SMITH PT Nov 24, 2018 12:21
--- NOTE | 2018-11-24 13:48 | Speech Therapy Daily Note ---
Speech Daily Progress Note Subjective Date Seen by Provider: Nov 24, 2018 Time Seen by Provider: 00:30 Patient was alert and pleasant. She cooperated during all treatment tasks. Objective Patient participated in immediate memory tasks with 80% success given minimal verbal cues. When presented with a 5 minute delay, she was successful in 50% opportunities and moderate cueing. Assessment Assessment Current Status: Good Progress Treatment Plan Continue Plan of Care Communication Comprehension: 6 Expression: 6 Social Cognition Social Interaction: 7 Problem Solvin Memory: 5 Speech Short Term Goals Short Term Goals Short Term Goals Patient will demonstrate simple problem solving and memory with 80% accuracy when given minimal cues Comprehension: 6 Expression: 6 Social Interaction: 7 Problem Solvin Memory: 5 Speech Longterm Goals Automation/Controls Manager Goals Patient will improve cognitive-communication necessary for safety and daily living tasks with minimal assist Comprehension: 6 Expression: 6 Social Interaction: 7 Problem Solvin Memory: 5 Speech-Plan Patient/Family Goals Patient/Family Goals: Improved cognition Treatment Plan Speech Therapy Treatment Plan: Continue Plan of Care Patient is making good progress towards goals. Patient requires minimal-moderate cues for success during cognitive-communication tasks. Treatment Duration: Dec 06, 2018 Frequency: 5 times per week Estimated Hrs Per Day: .5 hour per day Rehab Potential: Good Barriers to Learning: cognitive-communication Pt/Family Agrees to Plan: Yes Safety Risks/Education Teaching Recipient: Patient Teaching Methods: Discussion Response to Teaching: Verbalize Understanding Education Topics Provided: room safety Time Speech Therapy Time In: 08:00 Speech Therapy Time Out: 08:30 Total Billed Time: 30 Billed Treatment Time [address] Nov 24, 2018 13:48
--- NOTE | 2018-11-24 14:42 | Therapy Group Daily Note ---
Therapy Daily Group Note Patient Education Topic Other List Below (benefits of exercise, ARU expectations) Exercises LE Seated Exercise, UE Exercise, Other (breathing aned eye exercises) Session Ratio (pt:therapist): 4:1 Goal of Session: Education on ARU Expectations, Other (list) (understanding benefits of exercise) Goal Met for this Session: Yes Pt Benefit of Group: Increased Functional Strength Other/Notes Pt. participated in group PT OT session this date. Pt. came and went in w/c with mod assist to TRF in out bed and chair. Pts. were reviewed on ARU practices and requirements and weekend routine, scheduling etc. Pts. introduced themselves to one another and shared where their favorite place is. Pts. were educated in the benefits of exercise and participated in seated exercises. Pt. to room after Rx, in bed with assist and desai at hand Start Time: 13:00 Stop Time: 14:05 Total Billed Treatment Time: 65 Total Billed Treatment 1,GRP DARRYL NAM MENSWEAR SALESPERSON Nov 24, 2018 14:42
[2018-11-24 17:32] VITALS: BP 120/69
[2018-11-24] MEDS: GABAPENTIN 100 MG (NEURONTIN) CAP PO SCH (17:55)
[2018-11-24] MEDS: AMITRIPTYLINE 25 MG (ELAVIL) TAB PO SCH (20:46)
[2018-11-24] MEDS: ATORVASTATIN 40 MG (LIPITOR) TABLET PO SCH (20:46)
[2018-11-25 06:07] VITALS: BP 150/75
[2018-11-25] MEDS: MULTIVIT W/MINERALS TAB (THERAGRAN M) PO SCH (06:15)
[2018-11-25] MEDS: CYANOCOBALAMIN 1,000 MCG (VITAMIN B-12) TABLET PO SCH (06:15)
[2018-11-25 08:00] VITALS: BP 122/73
--- NOTE | 2018-11-25 08:00 | NUR ---
WHEN ASKED IF USING RIGHT ARM, PATIENT STATES IT HURTS TOO MUCH TO USE IT. ENCOURAGED TO TRY TO USE RIGHT ARM TO FEED SELF BREAKFAST, AND DID USE IT SOME. CONTINUED PAIN FROM BROKEN RIGHT CLAVICLE, AND USING ULTRAM AND TYLENOL FOR PAIN RELIEF.
--- NOTE | 2018-11-25 08:05 | PM&R Progress Note ---
Subjective HPI/CC On Admission Date Seen by Provider: Nov 25, 2018 Time Seen by Provider: 07:30 Chief Complaint: Debility following fall with right clavicle fracture HPI: This is a 88 yoWF clinic pt of Dr. Dobbins and Dr. Marrero cardiology in [place] who has a PMH of known lung mass did not pursue that a few years ago who presents to inpatient rehab following an observation stay after a fall sustaining a right clavicle fracture. She lives at home alone shes been falling a lot and has become quite debilitated and the goal is to return home to independent living with ADL independence and ambulatory status independent. 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 She does recall meeting me. At this current time pt is very well controlled is aware of the additional lung mass that she has no intention of treating and Dr. Hoskins updated her on that fact and overall she's ready to get started to recover and ultimately return back to home. Subjective/Events-last exam Patient doing very well Building confidence with intensive therapy and direction from physical therapy to prevent falls Bowel regimen is working pretty well for the patient and is till taking the stool softners and Senna Refuses to use the right arm Using walker with a platform for the clavicle fracture discomfort and that seems to be working pretty well for the patient Check meds and labs Conferred with RN Reviewed therapy notes Barriers to returning home is obtaining adequate strength, significant fall reduction, and managing clavicle fracture discomfort Review of Systems General: Fatigue Musculoskeletal: arm pain Objective Exam Vital Signs Vital Signs Date Time Temp Pulse Resp B/P (MAP) Pulse Ox O2 Delivery O2 Flow Rate FiO2 11/26/18 09:00 Room Air 11/26/18 08:00 90 116/73 (87) 11/26/18 05:12 98.0 18 92 Capillary Refill : Less Than 3 Seconds General Appearance: No Apparent Distress, WD/WN, Chronically ill HEENT: PERRL/EOMI, Normal ENT Inspection, Pharynx Normal, Moist Mucous Membranes Neck: Full Range of Motion, Normal Inspection, Non Tender, Supple, Limited Range of Motion (to the right) Respiratory: Chest Non Tender, Normal Breath Sounds, No Accessory Muscle Use, No Respiratory Distress, Crackles (RLL) Cardiovascular: Regular Rate, Rhythm, No Edema, No Gallop, No JVD, No Murmur Gastrointestinal: Normal Bowel Sounds, No Organomegaly, No Pulsatile Mass, Non Tender, Soft Back: Normal Inspection, No CVA Tenderness, No Vertebral Tenderness Extremity: Normal Capillary Refill, Normal Inspection, Normal Range of Motion, Non Tender, No Calf Tenderness, No Pedal Edema Neurologic/Psychiatric: Alert, Oriented x3, No Motor/Sensory Deficits, Normal Mood/Affect, roll icer machine II-XII Norm as Tested, Motor Weakness (generalized all extremities, balance deficit noted, high fall risk when walking with walker) Skin: Normal Color, Warm/Dry Lymphatic: No Adenopathy Results/Procedures Lab Patient resulted labs reviewed. FIM Transfers Therapy Code Descriptions/Definitions Functional [place] Measure: 0=Not Assessed/NA 4=Minimal Assistance 1=Total Assistance 5=Supervision or Setup 2=Maximal Assistance 6=Modified [place] 3=Moderate Assistance 7=Complete [place] Therapy Quality Codes: 6 Independent with activity with or without an assistive device 5 Patient requires set up or clean up by helper. Patient completes activity by themselves 4 Supervision or touching assist (CGA). [place] provide cues , steadying assist 3 The helper provides less than half the effort to complete the activity 2 The helper provides more than half the effort to complete the activity 1 Dependent. The helper does all the effort to complete an activity 7 Patient refused to complete or attempt activity 9 The patient did not perform the activity before the current illness or inju ry 88 Not attempted due to Medical conditions or safety concerns Transfers (B, C, W/C) (FIM): 3 Scootin (assist of 2 to scoot) Rollin Roll Left to Right (QC): 3 Supine to/from Sit: 1 (assist of 2 to lie down; max assist to sit up) Sit to/from Stand: 3 (mod assist to come to a stand with skilled cues for sequencing. Only uses left UE to push up; right UE in sling.) Sit to Lying (QC): 1 Sit to Stand (QC): 3 Chair/Xde-vl-Eusbj Xfer(QC): 4 (min assist for safety and balance) Car Transfer (QC): 3 (assist to get her legs into the car) Gait Training Does the Patient Walk?: Yes Gait (FIM): 2 Distance (FIM): 0=634-47 ft Distance: 125ft; 50 ft x 2 Walk 10 feet (QC): 3 Walk 50 ft with 2 Turns(QC): 3 Walk 150 ft (QC): 88 Walking 10ft/uneven surface-QC: 3 Gait Level of Assist: 3 (mod assist for balance and safety; assist with walker; skilled cues for correct use of walker) Gait Persons Needed: 1 Gait Assistive Device: Walker Platform Wheelchair Training Does the Pt Use a Wheelchair?: No Stair Training Stairs (FIM): 1 #of Steps: 1 1 Step (curb) (QC): 3 (mod assist to step up) 4 Steps (QC): 88 12 Steps (QC): 88 Stairs: Pattern: Step to Balance Picking up an Object (QC): 88 Mental Status/Objective Comprehension: 6 Expression: 6 Social Interaction: 7 Problem Solvin Memory: 5 ADL-Treatment Feedin (set up ) Eating (QC): 4 Groomin (CGA while standing at sink. pt required assist with set up of items) Oral Hygiene (QC): 4 Bathin Bathing Location: L Upper Leg, R Upper Leg, Chest, Abdomen, Perineal Area Shower/Bathe Self (QC): 3 Upper Extremity Dressin (machine assembler for puller over shirt) Upper Body Dressing (QC): 1 Lower Extremity Dressin (underpants, pants, tre socks) Lower Body Dressing (QC): 3 On/Off Footwear (QC): 1 Toiletin (requried assist with 3/3 toileting tasks) Toileting Hygiene (QC): 1 Toilet/Commode Transfer: 3 (use of SPC required MOD A to perform sit to stand) Toilet Transfer (QC): 3 Shower: 3 (use of SPC, GB required MOD A to perform sit to standshower chair) 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 but does not wish to have work-up or treatment CAD with stents in place PVD with stents in place Lives alone CHF UTI's Crackles RLL acute-improved with IS use Plan: Inpatient rehab protocol Ambulation with walker for fall prevention Regain independence with ADLs with right clavicle fracture and arm in sling Use platform to help navigate ambulation due to clavicle fracture Prevent delirium and maintain on Tylenol and Ultram for pain Right arm sling IS (1) Fall on same level (2) Congestive heart failure (3) B12 deficiency (4) Recurrent UTI (5) Hyperlipemia (6) PVD (peripheral vascular disease) (7) CAD (coronary artery disease) (8) Coronary arteriosclerosis (9) Clavicle fracture (10) Hypertension (11) Lung mass (12) Peripheral vascular disease COLLEEN OVIEDO DO Nov 25, 2018 08:05
[2018-11-25] MEDS: SACUBITRIL/VALSARTAN 24/26 MG (ENTRESTO) TABLET PO SCH ×2 (08:44→20:25)
[2018-11-25] MEDS: SENNA W/DOCUSATE (SENOKOT S) TABLET PO SCH ×2 (08:44→20:25)
[2018-11-25] MEDS: meTOprolol SUCCINATE 100 MG (TOPROL XL) TAB PO SCH (08:44)
[2018-11-25] MEDS: SPIRONOLACTONE 25 MG (ALDACTONE) TAB PO SCH (08:44)
[2018-11-25] MEDS: ACETAMINOPHEN 500 MG TAB (TYLENOL) PO PRN (08:45)
[2018-11-25] MEDS: ASPIRIN 81 MG CHEW (CHILDREN'S ASA) PO SCH (08:54)
[2018-11-25] MEDS: LUTEIN 40 MG PO SCH (09:44)
[2018-11-25] MEDS: MOVE FREE JOINT HEALTH PO SCH (09:44)
--- NOTE | 2018-11-25 11:10 | Physical Therapy Daily Note ---
PT Daily Note-Current Subjective Pt agreeable to Pt session. Pain Numeric Pain Scale: 5-Moderate Pain Comment: Right arm, all over pain increases with activity Appearance Upon arrival, pt sitting up in recliner awake and alert. At end of session, pt sitting up in recliner with call light, phone and bedside table within reach Mental Status Patient Orientation: Person, Place, Time, Eyes Open, Situation Transfers Therapy Code Descriptions/Definitions Functional [place] Measure: 0=Not Assessed/NA 4=Minimal Assistance 1=Total Assistance 5=Supervision or Setup 2=Maximal Assistance 6=Modified [place] 3=Moderate Assistance 7=Complete [place] Therapy Quality Codes: 6 Independent with activity with or without an assistive device 5 Patient requires set up or clean up by helper. Patient completes activity by themselves 4 Supervision or touching assist (CGA). [place] provide cues , steadying assist 3 The helper provides less than half the effort to complete the activity 2 The helper provides more than half the effort to complete the activity 1 Dependent. The helper does all the effort to complete an activity 7 Patient refused to complete or attempt activity 9 The patient did not perform the activity before the current illness or injury 88 Not attempted due to Medical conditions or safety concerns Transfers (B, C, W/C) (FIM): 3 Sit to/from Stand: 3 (mod A from recliner, CGA from slightly elevated mat in gym x5, instruction required for safety and technique) Weight Bearing sling right UE; Physician reports she may use her right UE for use in a platform walker. Gait Training Does the Patient Walk?: Yes Gait (FIM): 4 Distance (FIM): 3=150 ft Distance: 150 x2 Gait Level of Assist: 4 (SBA - CGA occasional unsteadiness with increasing fatigue) Gait Persons Needed: 1 Gait Assistive Device: Walker Platform (FWW with platform RUE) Slow steady pace with 1st distance, occasional stopping rests due to increasing pain during 2nd distance, stops with all turns and very slow Exercises Seated Therapy Exercises: Sit to stand Seated Reps: 6 Treatments transfers, gait, safety, functional mobility, activity tolerance, balance, strength Assessment Current Status: Good Progress PT Short Term Goals Short Term Goals Time Frame: Nov 29, 2018 Transfers (B,C,W/C) (FIM): 4 Gait (FIM): 4 PT [facility] Goals Health Information Provider Goals PT [facility] Goals Time Frame: Dec 14, 2018 Transfers (B,C,W/C) (FIM): 6 Sit to Lying (QC): 6 Lying-Sitting on Side/Bed(QC): 6 Sit to Stand (QC): 6 Rollin Roll Left to Right (QC): 6 Chair/Xul-lk-Lkgci Xfer(QC): 6 Car Transfer (QC): 6 Does the Patient Walk: Yes Gait (FIM): 6 Gait distance (FIM): 3=150 ft Walk 10 feet (QC): 6 Walk 10ft-Uneven Surface(QC): 6 Walk 50ft with 2 Turns (QC): 6 Walk 150 ft (QC): 6 Gait Assistive Device: FWW Stairs (FIM): 2 # of Steps: 4 1 Step (curb) (QC): 6 4 Steps (QC): 6 12 Steps (QC): 88 Picking up an Object (QC): 88 PT Plan Treatment/Plan Treatment Plan: Continue Plan of Care Treatment Plan: Bed Mobility, Education, Functional Activity [place], Functional Strength, Group Therapy, Gait, Safety, Therapeutic Exercise, Transfers Treatment Duration: Dec 14, 2018 Frequency: At least 5 of 7 days/Wk (IRF) Estimated Hrs Per Day: 1.5 hours per day Patient and/or Family Agrees t: Yes Safety Risks/Education Patient Education: Gait Training, Transfer Techniques, Correct Positioning, Safety Issues Teaching Recipient: Patient Teaching Methods: Discussion Response to Teaching: Verbalize Understanding, Return Demonstration, Reinforcement Needed Time/GCodes Time In: 756 Time Out: 827 Total Billed Treatment Time: 31 Total Billed Treatment 1 visit, GT x1 unit, FA x1 unit NIA DE LA ROSA PTA Nov 25, 2018 11:10
[2018-11-25] MEDS: GABAPENTIN 100 MG (NEURONTIN) CAP PO SCH (17:16)
[2018-11-25 17:27] VITALS: BP 129/59
--- NOTE | 2018-11-25 19:13 | NUR ---
bedside report received from KAREN KHAN, assume care of pt
[2018-11-25] MEDS: AMITRIPTYLINE 25 MG (ELAVIL) TAB PO SCH (20:26)
[2018-11-25] MEDS: ATORVASTATIN 40 MG (LIPITOR) TABLET PO SCH (20:26)
[2018-11-25] MEDS: PHENAZOPYRIDINE 100 MG (PYRIDIUM) TABLET PO PRN (20:26)
--- NOTE | 2018-11-25 20:40 | NUR ---
assessments & interventions completed, see assessments & interventions, remains up in the chair
--- NOTE | 2018-11-25 21:12 | NUR ---
back to bed with 1 person & walker assist
--- NOTE | 2018-11-25 21:16 | NUR ---
c/o pain level 10/10 on numeric scale, Ultram 50mg po given
--- NOTE | 2018-11-25 22:00 | NUR ---
resting quietly in bed, pain level 0/10 on flacc scale
[2018-11-26 05:12] VITALS: BP 150/75
[2018-11-26] MEDS: MULTIVIT W/MINERALS TAB (THERAGRAN M) PO SCH (06:56)
[2018-11-26] MEDS: CYANOCOBALAMIN 1,000 MCG (VITAMIN B-12) TABLET PO SCH (06:56)
--- NOTE | 2018-11-26 07:10 | NUR ---
bedside report given to KAREN KHAN
[2018-11-26 08:00] VITALS: BP 116/73
[2018-11-26] MEDS: ASPIRIN 81 MG CHEW (CHILDREN'S ASA) PO SCH (08:27)
[2018-11-26] MEDS: SACUBITRIL/VALSARTAN 24/26 MG (ENTRESTO) TABLET PO SCH ×2 (08:27→21:13)
[2018-11-26] MEDS: SPIRONOLACTONE 25 MG (ALDACTONE) TAB PO SCH (08:28)
[2018-11-26] MEDS: SENNA W/DOCUSATE (SENOKOT S) TABLET PO SCH ×2 (08:28→21:13)
[2018-11-26] MEDS: meTOprolol SUCCINATE 100 MG (TOPROL XL) TAB PO SCH (08:28)
[2018-11-26] MEDS: LUTEIN 40 MG PO SCH (08:31)
[2018-11-26] MEDS: MOVE FREE JOINT HEALTH PO SCH (08:31)
--- NOTE | 2018-11-26 12:51 | PM&R Progress Note ---
Subjective HPI/CC On Admission Date Seen by Provider: Nov 26, 2018 Time Seen by Provider: 12:30 Chief Complaint: Debility following fall with right clavicle fracture HPI: This is a 88 yoWF clinic pt of Dr. Dobbins and Dr. Marrero cardiology in [place] who has a PMH of known lung mass did not pursue that a few years ago who presents to inpatient rehab following an observation stay after a fall sustaining a right clavicle fracture. She lives at home alone shes been falling a lot and has become quite debilitated and the goal is to return home to independent living with ADL independence and ambulatory status independent. 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 She does recall meeting me. At this current time pt is very well controlled is aware of the additional lung mass that she has no intention of treating and Dr. Hoskins updated her on that fact and overall she's ready to get started to recover and ultimately return back to home. Subjective/Events-last exam 2-person requiring transfers but that seems to be doing better today she reports since she understands she must improve in order to return home Building confidence with intensive therapy and direction from physical therapy to prevent falls Bowel regimen resolved residual constipation Refuses to use the right arm because it hurts Using walker with a platform for the clavicle fracture discomfort and she navigates that well Check meds and labs Conferred with RN Reviewed therapy notes Review of Systems General: Fatigue Musculoskeletal: arm pain Objective Exam Vital Signs Vital Signs Date Time Temp Pulse Resp B/P (MAP) Pulse Ox O2 Delivery O2 Flow Rate FiO2 11/26/18 09:00 Room Air 11/26/18 08:00 90 116/73 (87) 11/26/18 05:12 98.0 18 92 Capillary Refill : Less Than 3 Seconds General Appearance: No Apparent Distress, WD/WN, Chronically ill HEENT: PERRL/EOMI, Normal ENT Inspection, Pharynx Normal, Moist Mucous Membranes Neck: Full Range of Motion, Normal Inspection, Non Tender, Supple, Limited Range of Motion (to the right) Respiratory: Chest Non Tender, Normal Breath Sounds, No Accessory Muscle Use, No Respiratory Distress, Crackles (RLL) Cardiovascular: Regular Rate, Rhythm, No Edema, No Gallop, No JVD, No Murmur Gastrointestinal: Normal Bowel Sounds, No Organomegaly, No Pulsatile Mass, Non Tender, Soft Back: Normal Inspection, No CVA Tenderness, No Vertebral Tenderness Extremity: Normal Capillary Refill, Normal Inspection, Normal Range of Motion, Non Tender, No Calf Tenderness, No Pedal Edema Neurologic/Psychiatric: Alert, Oriented x3, No Motor/Sensory Deficits, Normal Mood/Affect, concrete mixer loader truck mounted II-XII Norm as Tested, Motor Weakness (generalized all extremities, balance deficit noted, high fall risk when walking with walker) Skin: Normal Color, Warm/Dry Lymphatic: No Adenopathy Results/Procedures Lab Patient resulted labs reviewed. FIM Transfers Therapy Code Descriptions/Definitions Functional [place] Measure: 0=Not Assessed/NA 4=Minimal Assistance 1=Total Assistance 5=Supervision or Setup 2=Maximal Assistance 6=Modified [place] 3=Moderate Assistance 7=Complete [place] Therapy Quality Codes: 6 Independent with activity with or without an assistive device 5 Patient requires set up or clean up by helper. Patient completes activity by themselves 4 Supervision or touching assist (CGA). [place] provide cues , steadying assist 3 The helper provides less than half the effort to complete the activity 2 The helper provides more than half the effort to complete the activity 1 Dependent. The helper does all the effort to complete an activity 7 Patient refused to complete or attempt activity 9 The patient did not perform the activity before the current illness or injury 88 Not attempted due to Medical conditions or safety concerns Transfers (B, C, W/C) (FIM): 3 Scootin (assist of 2 to scoot) Rollin Roll Left to Right (QC): 3 Supine to/from Sit: 1 (assist of 2 to lie down; max assist to sit up) Sit to/from Stand: 3 (mod A from recliner, CGA from slightly elevated mat in gym x5, instruction required for safety and technique) Sit to Lying (QC): 1 Sit to Stand (QC): 3 Chair/Ztb-tf-Trguu Xfer(QC): 4 (min assist for safety and balance) Car Transfer (QC): 3 (assist to get her legs into the car) Gait Training Does the Patient Walk?: Yes Gait (FIM): 4 Distance (FIM): 3=150 ft Distance: 150 x2 Walk 10 feet (QC): 3 Walk 50 ft with 2 Turns(QC): 3 Walk 150 ft (QC): 88 Walking 10ft/uneven surface-QC: 3 Gait Level of Assist: 4 (SBA - CGA occasional unsteadiness with increasing fatigue) Gait Persons Needed: 1 Gait Assistive Device: Walker Platform (FWW with platform RUE) Wheelchair Training Does the Pt Use a Wheelchair?: No Stair Training Stairs (FIM): 1 #of Steps: 1 1 Step (curb) (QC): 3 (mod assist to step up) 4 Steps (QC): 88 12 Steps (QC): 88 Stairs: Pattern: Step to Balance Picking up an Object (QC): 88 Mental Status/Objective Comprehension: 6 Expression: 6 Social Interaction: 7 Problem Solvin Memory: 5 ADL-Treatment Feedin (set up ) Eating (QC): 4 Groomin (CGA while standing at sink. pt required assist with set up of items) Oral Hygiene (QC): 4 Bathin Bathing Location: L Upper Leg, R Upper Leg, Chest, Abdomen, Perineal Area Shower/Bathe Self (QC): 3 Upper Extremity Dressin (dross puller shirt) Upper Body Dressing (QC): 1 Lower Extremity Dressin (underpants, pants, tre socks) Lower Body Dressing (QC): 3 On/Off Footwear (QC): 1 Toiletin (requried assist with 3/3 toileting tasks) Toileting Hygiene (QC): 1 Toilet/Commode Transfer: 3 (use of SPC required MOD A to perform sit to stand) Toilet Transfer (QC): 3 Shower: 3 (use of SPC, GB required MOD A to perform sit to standshower chair) 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 but does not wish to have work-up or treatment CAD with stents in place PVD with stents in place Lives alone CHF UTI's Crackles RLL acute-improved with IS use Plan: Inpatient rehab protocol Ambulation with walker for fall prevention Regain independence with ADLs with right clavicle fracture and arm in sling Use platform to help navigate ambulation due to clavicle fracture Prevent delirium and maintain on Tylenol and Ultram for pain Right arm sling prn to help with the pain IS Right lung crackles noted (1) Fall on same level (2) Congestive heart failure (3) B12 deficiency (4) Recurrent UTI (5) Hyperlipemia (6) PVD (peripheral vascular disease) (7) CAD (coronary artery disease) (8) Coronary arteriosclerosis (9) Clavicle fracture (10) Hypertension (11) Lung mass (12) Peripheral vascular disease COLLEEN OVIEDO DO Nov 26, 2018 12:51
--- NOTE | 2018-11-26 16:00 | NUR ---
DOZED QUITE A BIT TODAY. STILL HAS DIFFICULTY IN GETTING TO A STANDING POSITION, BUT AMBULATES FAIRLY WELL, ALTHOUGH SLOW. AMBULATED IN [place] WITH ASST. WITH PLATFORM WALKER AND NOW SITTING UP IN DINING AREA VISITING WITH ANOTHER PATIENT.
[2018-11-26 16:34] VITALS: BP 143/78
[2018-11-26] MEDS: GABAPENTIN 100 MG (NEURONTIN) CAP PO SCH (17:32)
--- NOTE | 2018-11-26 18:00 | NUR ---
HAS DECIDED LIKES TO SIT IN HARD BACK CHAIR BETTER AND REQUESTED RECLINER MOVED OUT OF ROOM.
--- NOTE | 2018-11-26 19:08 | NUR ---
bedside report received from KAREN KHAN, assume care of pt
--- NOTE | 2018-11-26 21:00 | NUR ---
back to bed with 1 person assist & walker
--- NOTE | 2018-11-26 21:10 | NUR ---
assessments & interventions completed, see assessments & interventions
--- NOTE | 2018-11-26 21:11 | NUR ---
took one Senokot tab instead of two
[2018-11-26] MEDS: ATORVASTATIN 40 MG (LIPITOR) TABLET PO SCH (21:13)
[2018-11-26] MEDS: PHENAZOPYRIDINE 100 MG (PYRIDIUM) TABLET PO PRN (21:13)
[2018-11-26] MEDS: AMITRIPTYLINE 25 MG (ELAVIL) TAB PO SCH (21:14)
[2018-11-27 05:56] VITALS: BP 160/71
[2018-11-27] MEDS: MULTIVIT W/MINERALS TAB (THERAGRAN M) PO SCH (06:58)
[2018-11-27] MEDS: CYANOCOBALAMIN 1,000 MCG (VITAMIN B-12) TABLET PO SCH (06:58)
--- NOTE | 2018-11-27 06:58 | NUR ---
C/O PAIN LEVEL 9/10 ON NUMERIC SCALE, ULTRAM 50MG GIVEN
--- NOTE | 2018-11-27 07:06 | NUR ---
BEDSIDE REPORT GIVEN TO RIGOBERTO KHAN
--- NOTE | 2018-11-27 07:58 | PM&R Progress Note ---
ANDREI WALKER, 11/27/18 0757: Subjective HPI/CC On Admission Date Seen by Provider: Nov 27, 2018 Time Seen by Provider: 07:15 Chief Complaint: Debility following fall with right clavicle fracture HPI: This is a 88 yoWF clinic pt of Dr. Dobbins and Dr. Marrero cardiology in [place] who has a PMH of known lung mass did not pursue that a few years ago who presents to inpatient rehab following an observation stay after a fall sustaining a right clavicle fracture. She lives at home alone shes been falling a lot and has become quite debilitated and the goal is to return home to independent living with ADL independence and ambulatory status independent. 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 She does recall meeting me. At this current time pt is very well controlled is aware of the additional lung mass that she has no intention of treating and Dr. Hoskins updated her on that fact and overall she's ready to get started to recover and ultimately return back to home. Subjective/Events-last exam Pt was very pleasant this morning. States she is unable to eat a lot because she gets full quickly. Despite early satiety, bowels are moving fine and are normal. Does have pain in her right shoulder, took pain pill around 7am. Walks loop around rehab area to [facility] [employer] and back when there's enough help. Breakfast came into the room while interviewing pt. Clear bilaterally on auscultation. Objective Exam Vital Signs Vital Signs Date Time Temp Pulse Resp B/P (MAP) Pulse Ox O2 Delivery O2 Flow Rate FiO2 11/27/18 05:56 97.0 78 18 160/71 (100) 95 Room Air Capillary Refill : Less Than 3 Seconds General Appearance: No Apparent Distress, WD/WN, Chronically ill HEENT: PERRL/EOMI, Normal ENT Inspection, Pharynx Normal, Moist Mucous Membranes Neck: Full Range of Motion, Normal Inspection, Non Tender, Supple, Limited Range of Motion (to the right) Respiratory: Chest Non Tender, Normal Breath Sounds, No Accessory Muscle Use, No Respiratory Distress, Crackles (RLL) Cardiovascular: Regular Rate, Rhythm, No Edema, No Gallop, No JVD, No Murmur Gastrointestinal: Normal Bowel Sounds, No Organomegaly, No Pulsatile Mass, Non Tender, Soft Back: Normal Inspection, No CVA Tenderness, No Vertebral Tenderness Extremity: Normal Capillary Refill, Normal Inspection, Normal Range of Motion, Non Tender, No Calf Tenderness, No Pedal Edema Neurologic/Psychiatric: Alert, Oriented x3, No Motor/Sensory Deficits, Normal Mood/Affect, automotive service manager II-XII Norm as Tested, Motor Weakness (generalized all extremities, balance deficit noted, high fall risk when walking with walker) Skin: Normal Color, Warm/Dry Lymphatic: No Adenopathy Results/Procedures Lab Laboratory Tests 11/27/18 09:05 Patient resulted labs reviewed. FIM Transfers Therapy Code Descriptions/Definitions Functional [place] Measure: 0=Not Assessed/NA 4=Minimal Assistance 1=Total Assistance 5=Supervision or Setup 2=Maximal Assistance 6=Modified [place] 3=Moderate Assistance 7=Complete [place] Therapy Quality Codes: 6 Independent with activity with or without an assistive device 5 Patient requires set up or clean up by helper. Patient completes activity by themselves 4 Supervision or touching assist (CGA). [place] provide cues , steadying assist 3 The helper provides less than half the effort to complete the activity 2 The helper provides more than half the effort to complete the activity 1 Dependent. The helper does all the effort to complete an activity 7 Patient refused to complete or attempt activity 9 The patient did not perform the activity before the current illness or injury 88 Not attempted due to Medical conditions or safety concerns Transfers (B, C, W/C) (FIM): 3 Scootin (assist of 2 to scoot) Rollin Roll Left to Right (QC): 3 Supine to/from Sit: 1 (assist of 2 to lie down; max assist to sit up) Sit to/from Stand: 3 (mod A from recliner, CGA from slightly elevated mat in gym x5, instruction required for safety and technique) Sit to Lying (QC): 1 Sit to Stand (QC): 3 Chair/Qsd-hs-Dojli Xfer(QC): 4 (min assist for safety and balance) Car Transfer (QC): 3 (assist to get her legs into the car) Gait Training Does the Patient Walk?: Yes Gait (FIM): 4 Distance (FIM): 3=150 ft Distance: 150 x2 Walk 10 feet (QC): 3 Walk 50 ft with 2 Turns(QC): 3 Walk 150 ft (QC): 88 Walking 10ft/uneven surface-QC: 3 Gait Level of Assist: 4 (SBA - CGA occasional unsteadiness with increasing fatigue) Gait Persons Needed: 1 Gait Assistive Device: Walker Platform (FWW with platform RUE) Wheelchair Training Does the Pt Use a Wheelchair?: No Stair Training Stairs (FIM): 1 #of Steps: 1 1 Step (curb) (QC): 3 (mod assist to step up) 4 Steps (QC): 88 12 Steps (QC): 88 Stairs: Pattern: Step to Balance Picking up an Object (QC): 88 Mental Status/Objective Comprehension: 6 Expression: 6 Social Interaction: 7 Problem Solvin Memory: 5 ADL-Treatment Feedin (set up ) Eating (QC): 4 Groomin (CGA while standing at sink. pt required assist with set up of items) Oral Hygiene (QC): 4 Bathin Bathing Location: L Upper Leg, R Upper Leg, Chest, Abdomen, Perineal Area Shower/Bathe Self (QC): 3 Upper Extremity Dressin (machine assembler for puller over shirt) Upper Body Dressing (QC): 1 Lower Extremity Dressin (underpants, pants, tre socks) Lower Body Dressing (QC): 3 On/Off Footwear (QC): 1 Toiletin (requried assist with 3/3 toileting tasks) Toileting Hygiene (QC): 1 Toilet/Commode Transfer: 3 (use of SPC required MOD A to perform sit to stand) Toilet Transfer (QC): 3 Shower: 3 (use of SPC, GB required MOD A to perform sit to standshower chair) 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 but does not wish to have work-up or treatment CAD with stents in place PVD with stents in place Lives alone CHF UTI's Crackles RLL acute-improved with IS use Plan: Inpatient rehab protocol Ambulation with walker for fall prevention Regain independence with ADLs with right clavicle fracture and arm in sling Use platform to help navigate ambulation due to clavicle fracture Prevent delirium and maintain on Tylenol and Ultram for pain Right arm sling prn to help with the pain IS Update CBC/CMP labs Control pain (1) Fall on same level (2) Congestive heart failure (3) B12 deficiency (4) Recurrent UTI (5) Hyperlipemia (6) PVD (peripheral vascular disease) (7) CAD (coronary artery disease) (8) Coronary arteriosclerosis (9) Clavicle fracture (10) Hypertension (11) Lung mass (12) Peripheral vascular disease TASHIA OVIEDO DO 11/27/182021: Supervisory-Addendum Brief Verification & Attestation Time: Verification & Attestat.: 09:00 Participated in pt care: history, MDM, physical Personally performed: exam, history, MDM, supervision of care Care discussed with: Medical Student Procedures: n/a Results interpretation: Verified all documentation Verification and Attestation of Medical Student E/M Service A medical student performed and documented this service in my presence. I reviewed and verified all information documented by the medical student and made modifications to such information, when appropriate. I personally performed the physical exam and medical decision making. Tashia Oviedo, Nov 27, 2018,20:22 ANDREI WALKER, Nov 27, 2018 07:57 TASHIA OVIEDO DO Nov 27, 2018 20:22
[2018-11-27 08:25] VITALS: BP 114/55
[2018-11-27 09:28] LABS: BASOPHILS # (AUTO) 0.1 10^3/uL (0.0-0.1); BASOPHILS % (AUTO) 1 % (0-10); EOSINOPHILS # (AUTO) 0.3 10^3/uL (0.0-0.3); EOSINOPHILS % (AUTO) 3 % (0-10); HEMATOCRIT 38 % (35-52); HEMOGLOBIN 11.8 G/DL (11.5-16.0); LYMPHOCYTES # (AUTO) 0.2 X 10^3 (1.0-4.0); LYMPHOCYTES % (AUTO) 2 % (12-44); MEAN CORPUSCULAR HEMOGLOBIN 29 PG (25-34); MEAN CORPUSCULAR HGB CONC 31 G/DL (32-36); MEAN CORPUSCULAR VOLUME 92 FL (80-99); MEAN PLATELET VOLUME 10.2 FL (7.4-10.4); MONOCYTES % (AUTO) 8 % (0-12); NEUTROPHILS # (AUTO) 10.1 X 10^3 (1.8-7.8); NEUTROPHILS % (AUTO) 87 % (42-75); PLATELET COUNT 433 10^3/uL (130-400); RED CELL DISTRIBUTION WIDTH 12.8 % (10.0-14.5); WHITE BLOOD COUNT 11.7 10^3/uL (4.3-11.0)
[2018-11-27] MEDS: meTOprolol SUCCINATE 100 MG (TOPROL XL) TAB PO SCH (09:30)
[2018-11-27] MEDS: ASPIRIN 81 MG CHEW (CHILDREN'S ASA) PO SCH (09:30)
[2018-11-27] MEDS: PHENAZOPYRIDINE 100 MG (PYRIDIUM) TABLET PO PRN ×2 (09:30→21:13)
[2018-11-27] MEDS: LUTEIN 40 MG PO SCH (09:31)
[2018-11-27] MEDS: SPIRONOLACTONE 25 MG (ALDACTONE) TAB PO SCH (09:31)
[2018-11-27] MEDS: SACUBITRIL/VALSARTAN 24/26 MG (ENTRESTO) TABLET PO SCH ×2 (09:31→21:13)
[2018-11-27] MEDS: MOVE FREE JOINT HEALTH PO SCH (09:31)
[2018-11-27] MEDS: ACETAMINOPHEN 500 MG TAB (TYLENOL) PO PRN ×2 (09:32→21:13)
--- NOTE | 2018-11-27 09:36 | PM&R Progress Note ---
Subjective HPI/CC On Admission Date Seen by Provider: Nov 27, 2018 Time Seen by Provider: 09:00 Chief Complaint: Debility following fall with right clavicle fracture HPI: This is a 88 yoWF clinic pt of Dr. Dobbins and Dr. Marrero cardiology in [place] who has a PMH of known lung mass did not pursue that a few years ago who presents to inpatient rehab following an observation stay after a fall sustaining a right clavicle fracture. She lives at home alone shes been falling a lot and has become quite debilitated and the goal is to return home to independent living with ADL independence and ambulatory status independent. 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 She does recall meeting me. At this current time pt is very well controlled is aware of the additional lung mass that she has no intention of treating and Dr. Hoskins updated her on that fact and overall she's ready to get started to recover and ultimately return back to home. Subjective/Events-last exam Pt was very pleasant this morning. States she is unable to eat a lot because she gets full quickly. Does have pain in her right shoulder, took pain pill around 7am. Walks loop around rehab area to [facility] and back when there's enough help. Breakfast came into the room while interviewing pt. Clear bilaterally on auscultation. RLL crackles are much improved Using IS Incontinence at times BP varied at times Pyridium helps her a bit Walking better every day Review of Systems General: Fatigue Musculoskeletal: arm pain Objective Exam Vital Signs Vital Signs Date Time Temp Pulse Resp B/P (MAP) Pulse Ox O2 Delivery O2 Flow Rate FiO2 11/27/18 08:25 98 20 114/55 (74) 96 Room Air 11/27/18 05:56 97.0 Capillary Refill : Less Than 3 Seconds General Appearance: No Apparent Distress, WD/WN, Chronically ill HEENT: PERRL/EOMI, Normal ENT Inspection, Pharynx Normal, Moist Mucous Membran es Neck: Full Range of Motion, Normal Inspection, Non Tender, Supple, Limited Range of Motion (to the right) Respiratory: Chest Non Tender, Normal Breath Sounds, No Accessory Muscle Use, No Respiratory Distress, Crackles (RLL) Cardiovascular: Regular Rate, Rhythm, No Edema, No Gallop, No JVD, No Murmur Gastrointestinal: Normal Bowel Sounds, No Organomegaly, No Pulsatile Mass, Non Tender, Soft Back: Normal Inspection, No CVA Tenderness, No Vertebral Tenderness Extremity: Normal Capillary Refill, Normal Inspection, Normal Range of Motion, Non Tender, No Calf Tenderness, No Pedal Edema Neurologic/Psychiatric: Alert, Oriented x3, No Motor/Sensory Deficits, Normal Mood/Affect, 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 FIM Transfers Therapy Code Descriptions/Definitions Functional [place] Measure: 0=Not Assessed/NA 4=Minimal Assistance 1=Total Assistance 5=Supervision or Setup 2=Maximal Assistance 6=Modified [place] 3=Moderate Assistance 7=Complete [place] Therapy Quality Codes: 6 Independent with activity with or without an assistive device 5 Patient requires set up or clean up by helper. Patient completes activity by themselves 4 Supervision or touching assist (CGA). [place] provide cues , steadying assist 3 The helper provides less than half the effort to complete the activity 2 The helper provides more than half the effort to complete the activity 1 Dependent. The helper does all the effort to complete an activity 7 Patient refused to complete or attempt activity 9 The patient did not perform the activity before the current illness or injury 88 Not attempted due to Medical conditions or safety concerns Transfers (B, C, W/C) (FIM): 3 Scootin (assist of 2 to scoot) Rollin Roll Left to Right (QC): 3 Supine to/from Sit: 1 (assist of 2 to lie down; max assist to sit up) Sit to/from Stand: 3 (mod A from recliner, CGA from slightly elevated mat in gym x5, instruction required for safety and technique) Sit to Lying (QC): 1 Sit to Stand (QC): 3 Chair/Djr-gp-Loyxt Xfer(QC): 4 (min assist for safety and balance) Car Transfer (QC): 3 (assist to get her legs into the car) Gait Training Does the Patient Walk?: Yes Gait (FIM): 4 Distance (FIM): 3=150 ft Distance: 150 x2 Walk 10 feet (QC): 3 Walk 50 ft with 2 Turns(QC): 3 Walk 150 ft (QC): 88 Walking 10ft/uneven surface-QC: 3 Gait Level of Assist: 4 (SBA - CGA occasional unsteadiness with increasing fatigue) Gait Persons Needed: 1 Gait Assistive Device: Walker Platform (FWW with platform RUE) Wheelchair Training Does the Pt Use a Wheelchair?: No Stair Training Stairs (FIM): 1 #of Steps: 1 1 Step (curb) (QC): 3 (mod assist to step up) 4 Steps (QC): 88 12 Steps (QC): 88 Stairs: Pattern: Step to Balance Picking up an Object (QC): 88 Mental Status/Objective Comprehension: 6 Expression: 6 Social Interaction: 7 Problem Solvin Memory: 5 ADL-Treatment Feedin (set up ) Eating (QC): 4 Groomin (CGA while standing at sink. pt required assist with set up of items) Oral Hygiene (QC): 4 Bathin Bathing Location: L Upper Leg, R Upper Leg, Chest, Abdomen, Perineal Area Shower/Bathe Self (QC): 3 Upper Extremity Dressin (cable puller shirt) Upper Body Dressing (QC): 1 Lower Extremity Dressin (underpants, pants, tre socks) Lower Body Dressing (QC): 3 On/Off Footwear (QC): 1 Toiletin (requried assist with 3/3 toileting tasks) Toileting Hygiene (QC): 1 Toilet/Commode Transfer: 3 (use of SPC required MOD A to perform sit to stand) Toilet Transfer (QC): 3 Shower: 3 (use of SPC, GB required MOD A to perform sit to standshower chair) 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 but does not wish to have work-up or treatment CAD with stents in place PVD with stents in place Lives alone CHF UTI's with negative UA last week Crackles RLL acute-improved with IS use Plan: Inpatient rehab protocol Ambulation with walker for fall prevention Regain independence with ADLs with right clavicle fracture and arm in sling Use platform to help navigate ambulation due to clavicle fracture Prevent delirium and maintain on Tylenol and Ultram for pain Right arm sling prn to help with the pain IS Right lung crackles noted but improved today (1) Fall on same level (2) Congestive heart failure (3) B12 deficiency (4) Recurrent UTI (5) Hyperlipemia (6) PVD (peripheral vascular disease) (7) CAD (coronary artery disease) (8) Coronary arteriosclerosis (9) Clavicle fracture (10) Hypertension (11) Lung mass (12) Peripheral vascular disease COLLEEN OVIEDO DO Nov 27, 2018 09:36
[2018-11-27] MEDS: SENNA W/DOCUSATE (SENOKOT S) TABLET PO SCH ×2 (09:42→21:13)
[2018-11-27 09:43] LABS: ALBUMIN 3.4 GM/DL (3.2-4.5); BILIRUBIN,TOTAL 0.5 MG/DL (0.1-1.0); CALCIUM 9.5 MG/DL (8.5-10.1); CREATININE SERUM 1.1 MG/DL (0.60-1.30); POTASSIUM 4.6 MMOL/L (3.6-5.0); TOTAL PROTEIN 7.1 GM/DL (6.4-8.2)
--- NOTE | 2018-11-27 10:02 | Physical Therapy Daily Note ---
PT Daily Note-Current Subjective Pt. agrees to Rx. States she does not sleep in her bed at home. sleeps in recline chair. has rail on one side in out her home Pain Numeric Pain Scale: 6 Location: Right Location Body Site: Shoulder Pain Description: Ache Mental Status Patient Orientation: Normal For Age Transfers Therapy Code Descriptions/Definitions Functional [place] Measure: 0=Not Assessed/NA 4=Minimal Assistance 1=Total Assistance 5=Supervision or Setup 2=Maximal Assistance 6=Modified [place] 3=Moderate Assistance 7=Complete [place] Therapy Quality Codes: 6 Independent with activity with or without an assistive device 5 Patient requires set up or clean up by helper. Patient completes activity by themselves 4 Supervision or touching assist (CGA). [place] provide cues , steadying assist 3 The helper provides less than half the effort to complete the activity 2 The helper provides more than half the effort to complete the activity 1 Dependent. The helper does all the effort to complete an activity 7 Patient refused to complete or attempt activity 9 The patient did not perform the activity before the current illness or injury 88 Not attempted due to Medical conditions or safety concerns Transfers (B, C, W/C) (FIM): 3 Scootin Rollin Roll Left to Right (QC): 4 Supine to/from Sit: 3 Sit to/from Stand: 4 (high surface 5, low surface 4) Sit to Lying (QC): 3 Sit to Stand (QC): 4 Chair/Uaq-va-Puilo Xfer(QC): 4 Bed to/from Chair: 5 Weight Bearing sling right UE; Physician reports she may use her right UE for use in a platform walker. Gait Training Does the Patient Walk?: Yes Gait (FIM): 4 Distance (FIM): 3=150 ft (x2) Gait Level of Assist: 4 Gait Persons Needed: 1 Gait Assistive Device: Walker Platform slow,some assist to advance and turn at times Stair Training Stair Training: Handrails/: uses walker Stairs (FIM): 2 #of Steps: 4 Stairs: Pattern: Step to Level of Assist: 4 Exercises Supine Ex: Ankle pumps, Quad Set, Rolling, Glut sets, Heel Slides, Short Arc Quads, Scooting, Hip abd/add Supine Reps: 15 Seated Therapy Exercises: Ankle pumps, Sit to stand, Long arc quads, Hip fl exion, Hip abd/add Seated Reps: 10 R shoulder, elbow, and wrist passive ROM, oscillations during slow flexion to 40 degrees, oscillations during slow abduction to 45 degrees all x 8 reps, elbow flexion x 10 AAROM, min to no shoulder int ext rot available, wrist active ROM all x 12 Treatments toileted min assist to manage pants Assessment Current Status: Good Progress progressing slowly, PT Short Term Goals Short Term Goals Time Frame: Nov 29, 2018 Transfers (B,C,W/C) (FIM): 4 Gait (FIM): 4 PT Radiation Monitor Goals Care Home Goals PT Care Home Goals Time Frame: Dec 14, 2018 Transfers (B,C,W/C) (FIM): 6 Sit to Lying (QC): 6 Lying-Sitting on Side/Bed(QC): 6 Sit to Stand (QC): 6 Rollin Roll Left to Right (QC): 6 Chair/Hfk-dw-Nuwvp Xfer(QC): 6 Car Transfer (QC): 6 Does the Patient Walk: Yes Gait (FIM): 6 Gait distance (FIM): 3=150 ft Walk 10 feet (QC): 6 Walk 10ft-Uneven Surface(QC): 6 Walk 50ft with 2 Turns (QC): 6 Walk 150 ft (QC): 6 Gait Assistive Device: FWW Stairs (FIM): 2 # of Steps: 4 1 Step (curb) (QC): 6 4 Steps (QC): 6 12 Steps (QC): 88 Picking up an Object (QC): 88 PT Plan Treatment/Plan Treatment Plan: Continue Plan of Care Treatment Plan: Bed Mobility, Education, Functional Activity [place], Functional Strength, Group Therapy, Gait, Safety, Therapeutic Exercise, Transfers Treatment Duration: Dec 14, 2018 Frequency: At least 5 of 7 days/Wk (IRF) Estimated Hrs Per Day: 1.5 hours per day Patient and/or Family Agrees t: Yes Safety Risks/Education Patient Education: Gait Training, Transfer Techniques, Steps, Correct Posi tioning, Disease Process, Safety Issues Teaching Recipient: Patient Teaching Methods: Demonstration, Discussion Response to Teaching: Verbalize Understanding, Return Demonstration, Reinforce ment Needed Time/GCodes Time In: 900 (1030) Time Out: 1000 (105) Total Billed Treatment Time: 80 Total Billed Treatment 1,EX30m,FA35m,GT15m G Codes Necessary: DARRYL Felix NEWS REPORTER Nov 27, 2018 10:02
[2018-11-27 10:23] LABS: BAND NEUTROPHILS 1 %; BASOPHILS % (MANUAL) 0 %; EOSINOPHILS % (MANUAL) 1 %; LYMPHOCYTES % (MANUAL) 1 %; MONOCYTES % (MANUAL) 7 %; NEUTROPHILS % (MANUAL) 90 %; RBC MORPH NORMAL
--- NOTE | 2018-11-27 11:46 | Occupational Ther Daily Note ---
OT Current Status-Daily Note Subjective pt laying in bed upon OT arrival in no apparent distress. pt agreed to OT TX Session with focus on increasing FMC, RUE ROM, and overall activity tolerance for daily activities. pt reports no pain with out activity and 8/10 pain with R shoulder movement. Mental Status/Objective Therapy Code Descriptions/Definitions Functional [place] Measure: 0=Not Assessed/NA 4=Minimal Assistance 1=Total Assistance 5=Supervision or Setup 2=Maximal Assistance 6=Modified [place] 3=Moderate Assistance 7=Complete [place] ADL-Treatment Therapy Code Descriptions/Definitions Functional [place] Measure: 0=Not Assessed/NA 4=Minimal Assistance 1=Total Assistance 5=Supervision or Setup 2=Maximal Assistance 6=Modified [place] 3=Moderate Assistance 7=Complete [place] Therapy Quality Codes: 6 Independent with activity with or without an assistive device 5 Patient requires set up or clean up by helper. Patient completes activity by themselves 4 Supervision or touching assist (CGA). [place] provide cues , steadying assist 3 The helper provides less than half the effort to complete the activity 2 The helper provides more than half the effort to complete the activity 1 Dependent. The helper does all the effort to complete an activity 7 Patient refused to complete or attempt activity 9 The patient did not perform the activity before the current illness or injury 88 Not attempted due to Medical conditions or safety concerns Eating (FIM): 5 (pt uses right hand 50% of meal then switch to left hand secodnary to pain. pt reuqired setup of items ) Other Treatment pt required MOD A to perform bed mobility exiting bed from right side. pt then required MIN A to perform sit to stand and SBA for functional mobility approx 80 ft to TX gym. once in gym pt required rest break secondary to limited activity tolerance. pt then perform pully's to approx 60 degree right shoulder flexion. 15X2 with increased timing to complete to end range and increase rest break. noted slow movement with right UE. pt then given peg board. pt demo ability to complete 60 pegs on peg board to increase FMC for daily activities. pt perform 30 with right hand and 30 with left hand. noted increase timing to complete task. pt stated she has trouble buttoning her shirt secondary to decrease FMC. pt education on button hook. pt trail buttock hook 6 times with increased timing to complete. post session, pt ambulated back to room with SBA and sat in chair. pt order lunch,call light within reach, all needs ,met. Education OT Patient Education: Energy conservation, Modified ADL techniques, Progress toward Goal/Update tx plan, Purpose of tx/functional activities, Rehab process, Safety issues, Transfer techniques, Use of adapted equipment Teaching Recipient: Patient Teaching Methods: Demonstration, Discussion Response to Teaching: Verbalize Understanding, Return Demonstration OT Short Term Goals Short Term Goals Time Frame: Dec 06, 2018 Eating(FIM): 6 Grooming(FIM): 5 Bathing(FIM): 4 Bathing Location: L Arm, R Arm, L Upper Leg, R Upper Leg, L Lower Leg (including foot), R Lower Leg (including foot), Chest, Abdomen, Buttocks, Perineal Area Upper Body Dressing(FIM): 4 Lower Body Dressing(FIM): 4 Toileting(FIM): 4 Transfers (B,C,W/C) (FIM): 4 Toilet/Commode Transfer(FIM): 4 Shower Transfer(FIM): 4 Comprehension(FIM): 6 Expression(FIM): 6 Social Interaction(FIM): 7 Problem Solving(FIM): 5 Memory(FIM): 5 Additional Short Term Goals: 1-Demonstrate ADL Tasks, 2-Verbalize Understanding , 3-ImproveStrength/[place]ese[place] 1=Demonstrate adherence to instructed precautions during ADL tasks. 2=Patient will verbalize/demonstrate understanding of assistive devices/modifications for ADL. 3=Patient will improve strength/tolerance for activity to enable patient to perform ADL's. OT Turbine Mechanic Goals Shelter Goals Time Frame: Dec 20, 2018 Eating (FIM): 7 Eating (QC): 6 Groomin Oral Hygiene (QC): 6 Bathing(FIM): 6 Bathing Location: L Arm, R Arm, L Upper Leg, R Upper Leg, L Lower Leg (including foot), R Lower Leg (including foot), Chest, Abdomen, Buttocks, Perineal Area Shower/Bathe Self (QC): 6 Upper Body Dressing(FIM): 6 Upper Body Dressing (QC): 6 Lower Body Dressing(FIM): 6 Lower Body Dressing (QC): 6 On/Off Footwear (QC): 6 Toileting(FIM): 6 Toileting Hygiene (QC): 6 Transfers (B,C,W/C) (FIM): 6 Toilet/Commode Transfer(FIM): 6 Toilet/Commode Transfer (QC): 6 Shower Transfer(FIM): 6 Comprehension(FIM): 6 Expression (FIM): 6 Social Interaction(FIM): 7 Problem Solving(FIM): 5 Memory(FIM): 5 Additional Goals: 1-Demonstrate ADL Tasks, 2-Verbalize Understanding, 3-ImproveStrength/[place] 1=Demonstrate adherence to instructed precautions during ADL tasks. 2=Patient will verbalize/demonstrate understanding of assistive devices/modifications for ADL. 3=Patient will improve strength/tolerance for activity to enable patient to perf orm ADL's. OT Education/Plan Problem List/Assessment Assessment: Decreased Activ Tolerance, Decreased UE Strength, Impaired Bed Mobility, Impaired Coordination, Impaired Funct Balance, Impaired I ADL's, Impaired Self-Care Skills pt presents with functional limitations affecting areas of ADLS and functional transfers with the above mention deficits. pt would benefit from skilled OT services to increase independence with ADL and functional transfers. Discharge Recommendations Plan/Recommendations: Continue POC Treatment Plan/Plan of Care Treatment,Training & Education: Yes Patient would benefit from OT for education, treatment and training to promote independence in ADL's, mobility, safety and/or upper extremity function for ADL's. Plan of Care: ADL Retraining, Caregiver Training, Functional Mobility, Group Exercise/Act as Ind, UE Funct Exercise/Act Treatment Duration: Dec 20, 2018 Frequency: At least 5 of 7 days/Wk (IRF) Estimated Hrs Per Day: 1 hour per day (60-90 minutes per day) Agreement: Yes Rehab Potential: Good Time/GCodes Start Time: 10:45 Stop Time: 12:00 Billed Treatment Time FA 75 minutes, 5 units ANTONETTE GUEVARA OT Nov 27, 2018 11:46
--- NOTE | 2018-11-27 14:28 | Speech Therapy Daily Note ---
Speech Daily Progress Note Subjective Date Seen by Provider: Nov 27, 2018 Time Seen by Provider: 00:30 The patient was cooperative with session today. Clinician new to patient due to just returning from vacation. Objective Patient completed immediate memory and problem solving tasks related to her daily needs at 80% with decreased cues. Assessment Assessment Current Status: Good Progress Treatment Plan Continue Plan of Care Communication Comprehension: 6 Expression: 6 Social Cognition Social Interaction: 7 Problem Solvin Memory: 5 Speech Short Term Goals Short Term Goals Short Term Goals Patient will demonstrate simple problem solving and memory with 80% accuracy when given minimal cues Comprehension: 6 Expression: 6 Social Interaction: 7 Problem Solvin Memory: 5 Speech Custodial Goals Flotation Tender Goals Patient will improve cognitive-communication necessary for safety and daily living tasks with minimal assist Comprehension: 6 Expression: 6 Social Interaction: 7 Problem Solvin Memory: 5 Speech-Plan Patient/Family Goals Patient/Family Goals: The patient plans on returning home where she lives alone post rehab. Treatment Plan Speech Therapy Treatment Plan: Continue Plan of Care Patient is progressing well as a result of skilled therapy. Treatment Duration: Dec 06, 2018 Frequency: 5 times per week Estimated Hrs Per Day: .5 hour per day Rehab Potential: Good Barriers to Learning: Mild cognitive deficits. Pt/Family Agrees to Plan: Yes Safety Risks/Education Teaching Recipient: Patient Teaching Methods: Demonstration, Discussion Response to Teaching: Verbalize Understanding, Return Demonstration Education Topics Provided: Safety within her room. Time Speech Therapy Time In: 08:30 Speech Therapy Time Out: 09:00 Total Billed Time: 30 Billed Treatment Time 1, KAYLEN Bowden Nov 27, 2018 14:28
[2018-11-27] MEDS: GABAPENTIN 100 MG (NEURONTIN) CAP PO SCH (16:10)
[2018-11-27 17:17] VITALS: BP 126/69
--- NOTE | 2018-11-27 19:12 | NUR ---
bedside report received from RIGOBERTO KHAN, assume care of pt
[2018-11-27 21:05] VITALS: BP 133/73
[2018-11-27] MEDS: ATORVASTATIN 40 MG (LIPITOR) TABLET PO SCH (21:13)
[2018-11-27] MEDS: AMITRIPTYLINE 25 MG (ELAVIL) TAB PO SCH (21:13)
--- NOTE | 2018-11-27 21:15 | NUR ---
assessments & interventions completed, remains up in the chair
--- NOTE | 2018-11-27 21:38 | NUR ---
c/o rt shoulder pain level 8/10 on numeric scale, Tylenol 500mg po given
--- NOTE | 2018-11-27 21:45 | NUR ---
rates pain at 5/10 on numeric scale, back to bed with 1 person assist & walker
--- NOTE | 2018-11-28 03:00 | NUR ---
c/o mid sternal chest pain 02/01, v/s [id number]%-146/76 skin w/d
--- NOTE | 2018-11-28 03:11 | NUR ---
did EKG showed SR low voltage abnormal t consider ischemia, inferior leads, 02 applied at 2l/m per nc
--- NOTE | 2018-11-28 03:24 | NUR ---
notified of CP,V/S & EKG results also pt stated DNR
--- NOTE | 2018-11-28 03:25 | NUR ---
orders received to do troponin now monitor & would check labs in am
--- NOTE | 2018-11-28 03:33 | NUR ---
ultram 50mg po given for pain level 10/10 on numeric scale
--- NOTE | 2018-11-28 04:10 | NUR ---
rates pain level 8/10 on numeric scale
[2018-11-28 06:40] VITALS: BP 146/76
[2018-11-28] MEDS: ACETAMINOPHEN 500 MG TAB (TYLENOL) PO PRN (06:43)
--- NOTE | 2018-11-28 06:43 | NUR ---
continues to c/o chest pain level 10/10 on numeric scale Tylenol 500mg po given, pt refusing vitamins this morning, given soda cracker
--- NOTE | 2018-11-28 06:47 | PM&R Progress Note ---
ANDREI WALKER, 11/28/18 0646: Subjective HPI/CC On Admission Date Seen by Provider: Nov 28, 2018 Time Seen by Provider: 06:10 Chief Complaint: Debility following fall with right clavicle fracture HPI: This is a 88 yoWF clinic pt of Dr. Dobbins and Dr. Marrero cardiology in [place] who has a PMH of known lung mass did not pursue that a few years ago who presents to inpatient rehab following an observation stay after a fall sustaining a right clavicle fracture. She lives at home alone shes been falling a lot and has become quite debilitated and the goal is to return home to independent living with ADL independence and ambulatory status independent. 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 She does recall meeting me. At this current time pt is very well controlled is aware of the additional lung mass that she has no intention of treating and Dr. Hoskins updated her on that fact and overall she's ready to get started to recover and ultimately return back to home. Subjective/Events-last exam Upon exam this morning, pt was having severe chest pain at 0615. Asked to return later for questioning. EKG earlier this morning demonstrated normal sinus rhythm, low voltage across all rodriguez, and abnormal T wave and ischemia in inferior leads. Troponin normal at <0.028. BUN 27, Cr 1.1. Ultram given for pain with Tylenol to follow at 0640. After meeting with her around 10, she was still having chest pain and shortness of breath. CXR, CBC, CMP, and lactic acid were ordered. CBC: elevated WBC 16.7, elevated platelets at 421 CMP: low Na at 133, elevated glucose at 113, BUN 30, elevated ALT 191 (11/27 2 6), elevated AST 288 (11/27 52), elevated alkaline phos 334 (11/27 134), elevated BNP at 241.4 Lactic acid normal at 0.81 CXR: hyperinflated lungs, no change in masslike structures, mild congestion b ased on heart size and vasculature, chornic lung changes, scarlike formation in perihilar and upper areas of lung (right worse than left). No over failure noted. Focused Exam Lactate Level 11/28/18 10:14: Lactic Acid Level 0.81 Lactic Acid Level Laboratory Tests Test 11/28/18 10:14 Lactic Acid Level 0.81 MMOL/L (0.50-2.00) Objective Exam Vital Signs Vital Signs Date Time Temp Pulse Resp B/P (MAP) Pulse Ox O2 Delivery O2 Flow Rate FiO2 11/28/18 12:17 80 18 107/57 (74) 97 Room Air 11/28/18 10:24 97.9 11/28/18 08:31 2.00 Capillary Refill : Less Than 3 Seconds General Appearance: No Apparent Distress, WD/WN, Chronically ill HEENT: PERRL/EOMI, Normal ENT Inspection, Pharynx Normal, Moist Mucous Membranes Neck: Full Range of Motion, Normal Inspection, Non Tender, Supple, Limited Range of Motion (to the right) Respiratory: Chest Non Tender, Normal Breath Sounds, No Accessory Muscle Use, No Respiratory Distress, Crackles (RLL) Cardiovascular: Regular Rate, Rhythm, No Edema, No Gallop, No JVD, No Murmur Gastrointestinal: Normal Bowel Sounds, No Organomegaly, No Pulsatile Mass, Non Tender, Soft Back: Normal Inspection, No CVA Tenderness, No Vertebral Tenderness Extremity: Normal Capillary Refill, Normal Inspection, Normal Range of Motion, Non Tender, No Calf Tenderness, No Pedal Edema Neurologic/Psychiatric: Alert, Oriented x3, No Motor/Sensory Deficits, Normal Mood/Affect, concrete spreader II-XII Norm as Tested, Motor Weakness (generalized all extremities, balance deficit noted, high fall risk when walking with walker) Skin: Normal Color, Warm/Dry Lymphatic: No Adenopathy Results/Procedures Lab Laboratory Tests 11/28/18 10:14 Patient resulted labs reviewed. FIM Transfers Therapy Code Descriptions/Definitions Functional [place] Measure: 0=Not Assessed/NA 4=Minimal Assistance 1=Total Assistance 5=Supervision or Setup 2=Maximal Assistance 6=Modified [place] 3=Moderate Assistance 7=Complete [place] Therapy Quality Codes: 6 Independent with activity with or without an assistive device 5 Patient requires set up or clean up by helper. Patient completes activity by themselves 4 Supervision or touching assist (CGA). [place] provide cues , steadying assist 3 The helper provides less than half the effort to complete the activity 2 The helper provides more than half the effort to complete the activity 1 Dependent. The helper does all the effort to complete an activity 7 Patient refused to complete or attempt activity 9 The patient did not perform the activity before the current illness or injury 88 Not attempted due to Medical conditions or safety concerns Transfers (B, C, W/C) (FIM): 3 Scootin Rollin Roll Left to Right (QC): 4 Supine to/from Sit: 3 Sit to/from Stand: 4 (high surface 5, low surface 4) Sit to Lying (QC): 3 Sit to Stand (QC): 4 Chair/Qim-ek-Higzn Xfer(QC): 4 Bed to/from Chair: 5 Car Transfer (QC): 3 (assist to get her legs into the car) Gait Training Does the Patient Walk?: Yes Gait (FIM): 4 Distance (FIM): 3=150 ft (x2) Distance: 150 x2 Walk 10 feet (QC): 3 Walk 50 ft with 2 Turns(QC): 3 Walk 150 ft (QC): 88 Walking 10ft/uneven surface-QC: 3 Gait Level of Assist: 4 Gait Persons Needed: 1 Gait Assistive Device: Walker Platform Wheelchair Training Does the Pt Use a Wheelchair?: No Stair Training Stair Training: Handrails/: uses walker Stairs (FIM): 2 #of Steps: 4 1 Step (curb) (QC): 3 (mod assist to step up) 4 Steps (QC): 88 12 Steps (QC): 88 Stairs: Pattern: Step to Level of Assist: 4 Balance Picking up an Object (QC): 88 Mental Status/Objective Comprehension: 6 Expression: 6 Social Interaction: 7 Problem Solvin Memory: 5 ADL-Treatment Feedin (pt uses right hand 50% of meal then switch to left hand secodnary to pain. pt reuqired setup of items ) Eating (QC): 4 Groomin (CGA while standing at sink. pt required assist with set up of items) Oral Hygiene (QC): 4 Bathin Bathing Location: L Upper Leg, R Upper Leg, Chest, Abdomen, Perineal Area Shower/Bathe Self (QC): 3 Upper Extremity Dressin (pulley man shirt) Upper Body Dressing (QC): 1 Lower Extremity Dressin (underpants, pants, tre socks) Lower Body Dressing (QC): 3 On/Off Footwear (QC): 1 Toiletin (requried assist with 3/3 toileting tasks) Toileting Hygiene (QC): 1 Toilet/Commode Transfer: 3 (use of SPC required MOD A to perform sit to stand) Toilet Transfer (QC): 3 Shower: 3 (use of SPC, GB required MOD A to perform sit to standshower chair) 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 but does not wish to have work-up or treatment CAD with stents in place PVD with stents in place Lives alone CHF UTI's Crackles RLL acute-improved with IS use Plan: Consult pulmonology Order ammonia, protime/INR Stop acetaminophen d/t liver enzymes Use tramadol for pain to prevent delirium Inpatient rehab protocol Ambulation with walker for fall prevention Regain independence with ADLs with right clavicle fracture and arm in sling Use platform to help navigate ambulation due to clavicle fracture Right arm sling prn to help with the pain IS Control pain (1) Fall on same level (2) Congestive heart failure (3) B12 deficiency (4) Recurrent UTI (5) Hyperlipemia (6) PVD (peripheral vascular disease) (7) CAD (coronary artery disease) (8) Coronary arteriosclerosis (9) Clavicle fracture (10) Hypertension (11) Lung mass (12) Peripheral vascular disease TASHIA OVIEDO DO 11/28/187: Subjective Subjective/Events-last exam Had an episode of chest pain at 3:30 this morning Troponin was negative Dr. Diallo was consulted Reviewed Dr. Cortes notes in April 2018 it appears her injection fraction is 30 to 35% EKG showed some very nonspecific ST changes Troponin will be monitored Ordered CBC, CMP, Chest x-ray, Lactic acid, BMP, along with Dr. Diallo consultation because she just does not feel well today and appears to be a little bit peaked and fatigued Lung show some more crackles than previous B/L lower bases Review of Systems General: Fatigue Pulmonary: Dyspnea, Cough Neurological: Weakness Objective Exam General Appearance: WD/WN, Chronically ill, Mild Distress, Other (fatigued) Respiratory: Crackles (bases bilateral), Decreased Breath Sounds Cardiovascular: Regular Rate, Rhythm, No Edema, No Gallop, No Murmur Neurologic/Psychiatric: Alert, Oriented x3, No Motor/Sensory Deficits, Normal Mood/Affect, concrete spreader II-XII Norm as Tested Skin: Normal Color, Warm/Dry Assessment/Plan Assessment and Plan Assess & Plan/Chief Complaint Appreciate Reyes Hearn and Imani Monitor closely since she had a hx of sepsis in the past along with CHF Abx empiric due to abnl CXR and lung masses Supervisory-Addendum Brief Verification & Attestation Time: Verification & Attestat.: 09:00 Participated in pt care: history, MDM, physical Personally performed: exam, history, MDM, supervision of care Care discussed with: Medical Student Procedures: n/a Results interpretation: Verified all documentation Verification and Attestation of Medical Student E/M Service A medical student performed and documented this service in my presence. I reviewed and verified all information documented by the medical student and made modifications to such information, when appropriate. I personally performed the physical exam and medical decision making. Tashia Oviedo, Nov 28, 2018,19:47 ANDREI WALKER, Nov 28, 2018 06:46 TASHIA OVIEDO DO Nov 28, 2018 19:47
[2018-11-28] MEDS: CYANOCOBALAMIN 1,000 MCG (VITAMIN B-12) TABLET PO SCH (07:00)
[2018-11-28] MEDS: MULTIVIT W/MINERALS TAB (THERAGRAN M) PO SCH (07:00)
--- NOTE | 2018-11-28 07:12 | NUR ---
bedside report given to RODY KHAN
[2018-11-28 08:31] VITALS: BP 95/62
[2018-11-28] MEDS: SENNA W/DOCUSATE (SENOKOT S) TABLET PO SCH ×2 (10:06→22:22)
[2018-11-28] MEDS: ASPIRIN 81 MG CHEW (CHILDREN'S ASA) PO SCH (10:06)
[2018-11-28] MEDS: MOVE FREE JOINT HEALTH PO SCH (10:22)
[2018-11-28] MEDS: LUTEIN 40 MG PO SCH (10:22)
[2018-11-28] MEDS: SPIRONOLACTONE 25 MG (ALDACTONE) TAB PO SCH (10:22)
[2018-11-28 10:23] LABS: BASOPHILS # (AUTO) 0.1 10^3/uL (0.0-0.1); BASOPHILS % (AUTO) 0 % (0-10); EOSINOPHILS # (AUTO) 0.1 10^3/uL (0.0-0.3); EOSINOPHILS % (AUTO) 0 % (0-10); HEMATOCRIT 37 % (35-52); HEMOGLOBIN 11.6 G/DL (11.5-16.0); LYMPHOCYTES # (AUTO) 0.2 X 10^3 (1.0-4.0); LYMPHOCYTES % (AUTO) 1 % (12-44); MEAN CORPUSCULAR HEMOGLOBIN 29 PG (25-34); MEAN CORPUSCULAR HGB CONC 31 G/DL (32-36); MEAN CORPUSCULAR VOLUME 93 FL (80-99); MEAN PLATELET VOLUME 10.1 FL (7.4-10.4); MONOCYTES # (AUTO) 1.3 X 10^3 (0.0-1.0); MONOCYTES % (AUTO) 8 % (0-12); NEUTROPHILS # (AUTO) 15.1 X 10^3 (1.8-7.8); NEUTROPHILS % (AUTO) 90 % (42-75); PLATELET COUNT 421 10^3/uL (130-400); RED CELL DISTRIBUTION WIDTH 12.7 % (10.0-14.5); WHITE BLOOD COUNT 16.7 10^3/uL (4.3-11.0)
[2018-11-28] MEDS: SACUBITRIL/VALSARTAN 24/26 MG (ENTRESTO) TABLET PO SCH ×2 (10:23→21:13)
[2018-11-28] MEDS: meTOprolol SUCCINATE 100 MG (TOPROL XL) TAB PO SCH (10:23)
[2018-11-28 10:24] VITALS: BP 97/54
[2018-11-28 10:41] LABS: ALBUMIN 3.4 GM/DL (3.2-4.5); BILIRUBIN,TOTAL 0.7 MG/DL (0.1-1.0); CALCIUM 9.6 MG/DL (8.5-10.1); CREATININE SERUM 1.08 MG/DL (0.60-1.30); POTASSIUM 4.7 MMOL/L (3.6-5.0); TOTAL PROTEIN 6.4 GM/DL (6.4-8.2)
--- NOTE | 2018-11-28 10:48 | Occupational Ther Daily Note ---
OT Current Status-Daily Note Subjective pt laying in bed upon OT arrival. pt agreed to OT tx session with focus on increasing FMC for daily activities. pt stated she has been awake since 3 am with "chest pain" pt stated "it's not really chest pain, it like something is on my lungs making it hard to breathe" noted no SOB. pt vitals taken O2 93% on RA, BP 97/54 and HR 86BPM. NSG is aware of everything and stated pt may participate in treatment session. Mental Status/Objective Patient Orientation: Normal For Age Therapy Code Descriptions/Definitions Functional [place] Measure: 0=Not Assessed/NA 4=Minimal Assistance 1=Total Assistance 5=Supervision or Setup 2=Maximal Assistance 6=Modified [place] 3=Moderate Assistance 7=Complete [place] ADL-Treatment Therapy Code Descriptions/Definitions Functional [place] Measure: 0=Not Assessed/NA 4=Minimal Assistance 1=Total Assistance 5=Supervision or Setup 2=Maximal Assistance 6=Modified [place] 3=Moderate Assistance 7=Complete [place] Therapy Quality Codes: 6 Independent with activity with or without an assistive device 5 Patient requires set up or clean up by helper. Patient completes activity by themselves 4 Supervision or touching assist (CGA). [place] provide cues , steadying assist 3 The helper provides less than half the effort to complete the activity 2 The helper provides more than half the effort to complete the activity 1 Dependent. The helper does all the effort to complete an activity 7 Patient refused to complete or attempt activity 9 The patient did not perform the activity before the current illness or inju ry 88 Not attempted due to Medical conditions or safety concerns Other Treatment pt perform supine to sit with MOD A and sit to stand from bed with MOD A. pt then ambulated to TX gym approx 90 ft with intermitted CGA for safety/ balance while using platform walker. noted increase timing for functional mobility with small steps. once in gym pt re education on button hook to increase independence with UB dressing. pt attempt 10 buttons with 30% accuracy and additional timing. pt education on buying shirts with larger buttons or line puller shirts. pt stated she as trouble with line puller shirt secondary to decrease ROM in RUE. pt education on skilled technique for UB dressing. pt verbalized understanding but REF to attempt this date. pt then complete yellow graded Theraputty with 10 beads hidden inside to increase FMC and hand strength for daily activities. noted pt required increased timing to complete task. pt required MOD A to sit from chair and perform functional mobility approx 30 ft with CGA. X-ray tech present pt sat in w/c and left in care of X-Ray techn. NSG present and aware. Education OT Patient Education: Energy conservation, Modified ADL techniques, Progress toward Goal/Update tx plan, Purpose of tx/functional activities, Reviewed precautions, Rehab process, Safety issues, Transfer techniques, Use of adapted equipment Teaching Recipient: Patient Teaching Methods: Demonstration, Discussion Response to Teaching: Verbalize Understanding, Return Demonstration OT Short Term Goals Short Term Goals Time Frame: Dec 06, 2018 Eating(FIM): 6 Grooming(FIM): 5 Bathing(FIM): 4 Bathing Location: L Arm, R Arm, L Upper Leg, R Upper Leg, L Lower Leg (including foot), R Lower Leg (including foot), Chest, Abdomen, Buttocks, Perineal Area Upper Body Dressing(FIM): 4 Lower Body Dressing(FIM): 4 Toileting(FIM): 4 Transfers (B,C,W/C) (FIM): 4 Toilet/Commode Transfer(FIM): 4 Shower Transfer(FIM): 4 Comprehension(FIM): 6 Expression(FIM): 6 Social Interaction(FIM): 7 Problem Solving(FIM): 5 Memory(FIM): 5 Additional Short Term Goals: 1-Demonstrate ADL Tasks, 2-Verbalize Understanding, 3-ImproveStrength/Desean 1=Demonstrate adherence to instructed precautions during ADL tasks. 2=Patient will verbalize/demonstrate understanding of assistive devices/modifications for ADL. 3=Patient will improve strength/tolerance for activity to enable patient to perform ADL's. OT Stator Winder Goals Fpc Goals Time Frame: Dec 20, 2018 Eating (FIM): 7 Eating (QC): 6 Groomin Oral Hygiene (QC): 6 Bathing(FIM): 6 Bathing Location: L Arm, R Arm, L Upper Leg, R Upper Leg, L Lower Leg (including foot), R Lower Leg (including foot), Chest, Abdomen, Buttocks, Perineal Area Shower/Bathe Self (QC): 6 Upper Body Dressing(FIM): 6 Upper Body Dressing (QC): 6 Lower Body Dressing(FIM): 6 Lower Body Dressing (QC): 6 On/Off Footwear (QC): 6 Toileting(FIM): 6 Toileting Hygiene (QC): 6 Transfers (B,C,W/C) (FIM): 6 Toilet/Commode Transfer(FIM): 6 Toilet/Commode Transfer (QC): 6 Shower Transfer(FIM): 6 Comprehension(FIM): 6 Expression (FIM): 6 Social Interaction(FIM): 7 Problem Solving(FIM): 5 Memory(FIM): 5 Additional Goals: 1-Demonstrate ADL Tasks, 2-Verbalize Understanding, 3- ImproveStrength/Desean 1=Demonstrate adherence to instructed precautions during ADL tasks. 2=Patient will verbalize/demonstrate understanding of assistive devices/modifications for ADL. 3=Patient will improve strength/tolerance for activity to enable patient to perform ADL's. OT Education/Plan Problem List/Assessment Assessment: Decreased Activ Tolerance, Decreased Safety Aware, Decreased UE Strength, Impaired Bed Mobility, Impaired Coordination, Impaired Funct Balance, Impaired I ADL's, Impaired Self-Care Skills, Restricted Funct UE ROM pt presents with functional limitations affecting areas of ADLS and functional transfers with the above mention deficits. pt would benefit from skilled OT services to increase independence with ADL and functional transfers. Discharge Recommendations Plan/Recommendations: Continue POC Treatment Plan/Plan of Care Treatment,Training & Education: Yes Patient would benefit from OT for education, treatment and training to promote independence in ADL's, mobility, safety and/or upper extremity function for ADL's. Plan of Care: ADL Retraining, Caregiver Training, Functional Mobility, Group Exercise/Act as Ind, UE Funct Exercise/Act Treatment Duration: Dec 20, 2018 Frequency: At least 5 of 7 days/Wk (IRF) Estimated Hrs Per Day: 1 hour per day (60-90 minutes per day) Agreement: Yes Rehab Potential: Good Time/GCodes Start Time: 09:15 Stop Time: 10:30 Billed Treatment Time FA 75 minutes, 5 units ANTONETTE GUEVARA OT Nov 28, 2018 10:47
--- NOTE | 2018-11-28 10:55 | Diagnostic Imaging Report ---
INDICATION: Hypoxia. TECHNIQUE: Two view chest 10:38 AM CORRELATION STUDY: CT chest 11/21/2018, chest radiograph 11/21/2018 FINDINGS: Patient is rotated towards the right. Lung rodriguez demonstrate hyperinflation with chronic appearing change about the parenchyma. Masslike density about both lung bases again demonstrated, overall generally stable. Slight asymmetric parenchymal density of the right suprahilar region also appears unchanged. No definitive new area of infiltrate. Likely trace effusions. Heart size and vasculature demonstrate mild congestion. Obliquely oriented displaced right mid to distal clavicle fracture with advanced degenerative change and likely prior traumatic change about the right humeral head and glenohumeral joint. IMPRESSION: 1. No appreciable change in masslike density about both lung bases superimposed on chronic lung disease. 2. Additional chronic type change about the lung parenchyma with likely additional scar like formation in the perihilar and upper lung distributions, right greater than left. 3. No evidence for overt failure. Dictated by: Dictated on workstation # [id number]
[2018-11-28 11:05] LABS: BAND NEUTROPHILS 1 %; NEUTROPHILS % (MANUAL) 86 %
[2018-11-28 11:06] LABS: BASOPHILS % (MANUAL) 1 %; EOSINOPHILS % (MANUAL) 0 %; LYMPHOCYTES % (MANUAL) 1 %; MONOCYTES % (MANUAL) 1 %; RBC MORPH NORMAL
--- NOTE | 2018-11-28 11:46 | NUR ---
Dr. Lott notified of lab and chest XRAY results. Orders to DC Tylenol and get Ammonia level and PT/INR. Addendum: 11/28/18 at 1346 by RODY DEY RN Also, consult Dr. Hearn.
--- NOTE | 2018-11-28 12:06 | Physical Therapy Daily Note ---
PT Daily Note-Current Subjective Pt sitting in restroom upon arrival. Pt agrees to PT after restroom. Pain Numeric Pain Scale: 7 Location: Right Location Body Site: Shoulder Pain Description: Ache Mental Status Patient Orientation: Person, Place, Time, Situation Transfers Therapy Code Descriptions/Definitions Functional [place] Measure: 0=Not Assessed/NA 4=Minimal Assistance 1=Total Assistance 5=Supervision or Setup 2=Maximal Assistance 6=Modified [place] 3=Moderate Assistance 7=Complete [place] Therapy Quality Codes: 6 Independent with activity with or without an assistive device 5 Patient requires set up or clean up by helper. Patient completes activity by themselves 4 Supervision or touching assist (CGA). [place] provide cues , steadying assist 3 The helper provides less than half the effort to complete the activity 2 The helper provides more than half the effort to complete the activity 1 Dependent. The helper does all the effort to complete an activity 7 Patient refused to complete or attempt activity 9 The patient did not perform the activity before the current illness or injury 88 Not attempted due to Medical conditions or safety concerns Scootin Sit to/from Stand: 4 Sit to Stand (QC): 4 Weight Bearing Full Weight Bearing Full Weight Bearing sling right UE; Physician reports she may use her right UE for use in a platform walker. Gait Training Does the Patient Walk?: Yes Gait (FIM): 5 Distance (FIM): 3=150 ft Distance: 175' Walk 10 feet (QC): 5 Walk 50 ft with 2 Turns(QC): 5 Walk 150 ft (QC): 5 Gait Level of Assist: 5 Gait Persons Needed: 1 Gait Assistive Device: Walker Platform Wheelchair Training Does the Pt Use a Wheelchair?: No Exercises NuStep Minutes: 10 NuStep Workload: 4 Treatments Pt transfers from toilet to standing, needing assistance with pericare and donning brief & pants. Pt ambulates in hallway and to Therapy Gym. Pt takes RB, completes Seated Ex in chair then uses NuStep for 10m at WL 4 with RB as needed. After short RB, pt ambulates in hallway again before returning to room to rest and order lunch. Pt has all needs met, call light next to pt. Assessment Current Status: Good Progress Pt tolerates tx well despite pain in R shoulder. Pt does not use R UE during NuStep and uses platform walker to ambulate. PT Short Term Goals Short Term Goals Time Frame: Nov 29, 2018 Transfers (B,C,W/C) (FIM): 4 Gait (FIM): 4 PT Bench Mover Goals Bench Mover Goals PT Bench Mover Goals Time Frame: Dec 14, 2018 Transfers (B,C,W/C) (FIM): 6 Sit to Lying (QC): 6 Lying-Sitting on Side/Bed(QC): 6 Sit to Stand (QC): 6 Rollin Roll Left to Right (QC): 6 Chair/Hzx-qq-Rtwhu Xfer(QC): 6 Car Transfer (QC): 6 Does the Patient Walk: Yes Gait (FIM): 6 Gait distance (FIM): 3=150 ft Walk 10 feet (QC): 6 Walk 10ft-Uneven Surface(QC): 6 Walk 50ft with 2 Turns (QC): 6 Walk 150 ft (QC): 6 Gait Assistive Device: FWW Stairs (FIM): 2 # of Steps: 4 1 Step (curb) (QC): 6 4 Steps (QC): 6 12 Steps (QC): 88 Picking up an Object (QC): 88 PT Plan Problem List Problem List: Activity Tolerance, Functional Strength, Safety, Gait, Transfer Treatment/Plan Treatment Plan: Continue Plan of Care Treatment Plan: Bed Mobility, Education, Functional Activity [place], Functional Strength, Group Therapy, Gait, Safety, Therapeutic Exercise, Transfers Treatment Duration: Dec 14, 2018 Frequency: At least 5 of 7 days/Wk (IRF) Estimated Hrs Per Day: 1.5 hours per day Patient and/or Family Agrees t: Yes Safety Risks/Education Patient Education: Gait Training, Transfer Techniques, Correct Positioning, Safety Issues Teaching Recipient: Patient Teaching Methods: Discussion Response to Teaching: Verbalize Understanding Time/GCodes Time In: 1045 Time Out: 1200 Total Billed Treatment Time: 75 Total Billed Treatment 1, GT x2 (25m), EX x2 (30m) & FA (20m) G Codes Necessary: IRENE Pagan EVENT 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
[2018-11-28 12:17] VITALS: BP 107/57
[2018-11-28 12:28] LABS: INR 1.1 (0.8-1.4); PROTHROMBIN TIME PATIENT 14.8 SEC (12.2-14.7)
[2018-11-28] MEDS: ENOXAPARIN 40 MG/0.4 ML (LOVENOX) SYR SC SCH (12:33)
--- NOTE | 2018-11-28 13:41 | Pulmonary Consultation ---
History of Present Illness History of Present Illness Date of Consultation 11/28/18 13:17 Time Seen by Provider: 13:17 Date of Admission History of Present Illness 88yo with hx of known lung mass dx 3 yrs ago however declined workup presents as direct admit to inpatient rehab after fall causing right clavicle fracture. Pt has been falling frequently and currently lives at home. Allergies and Home Medications Allergies Coded Allergies: atenolol (Verified Allergy, Unknown, 05/05/18) codeine (Verified Adverse Reaction, Mild, NAUSEA, 05/05/18) HEADACHE diltiazem (Verified Adverse Reaction, Mild, DOESN'T WANT, 05/05/18) indomethacin (Verified Adverse Reaction, Mild, DOESN'T WANT, 05/05/18) propranolol (Verified Adverse Reaction, Mild, DOESN'T WANT, 05/05/18) morphine (Verified Adverse Reaction, Unknown, 05/05/18) reports hearing things-reports she does not want to ever take. haS TOLERATED HYDROCODONE Uncoded Allergies: NITROPATCH (Adverse Reaction, Mild, DOESN'T WANT, 03/29/07) Home Medications Amitriptyline HCl 25 Mg Tablet, 25 MG PO HS, (Reported) Aspirin 81 Mg Tab.chew, 81 MG PO DAILY, (Reported) Atorvastatin Calcium 40 Mg Tablet, 40 MG PO HS, (Reported) Cyanocobalamin (Vitamin B-12) 1,000 Mcg Tablet, 1,000 MCG PO DAILY PRN, (Reported) Docusate Sodium 100 Mg Capsule, 100 MG PO DAILY PRN for CONSTIPATION-1ST LINE, (Reported) Gabapentin 100 Mg Capsule, 100 MG PO DAILY WITH SUPPER, (Reported) Glucosam/Chond/Hyalu/Cf Borate 1 Each Tablet, 1 TAB PO DAILY, (Reported) Lutein 40 Mg Capsule, 40 MG PO DAILY, (Reported) Metoprolol Succinate 100 Mg Tab.er.24h, 100 MG PO DAILY, (Reported) Multivitamin 1 Each Tablet, 1 TAB PO DAILY, (Reported) Polyethylene Glycol 3350 17 Gm Powd.pack, 17 GM PO DAILY PRN for CONSTIPATION- 2ND LINE, (Reported) Sacubitril/Valsartan 1 Each Tablet, 1 TAB PO BID, (Reported) Spironolactone 25 Mg Tablet, 25 MG PO DAILY, (Reported) Tramadol HCl 50 Mg Tablet, 50 MG PO BID PRN for PAIN-MODERATE, (Reported) Past Gsgqzkj-Kaymwv-Weznjj Hx Past Med/Social Hx: Reviewed Nursing Past Med/Soc Hx, Reviewed and Corrections made Patient Social History Alcohol Use: Denies Use Recreational Drug Use: No Smoking Status: Never a Smoker 2nd Hand Smoke Exposure: No Recent Foreign Travel: No Contact w/Someone Who Travel: No Recent Infectious Disease Expo: No Recent Hopitalizations: Yes (RIGHT CLAVICLE FX 7-19) Immunizations Up To Date Tetanus Booster (TDap): Unknown PED Vaccines UTD: No Date of Pneumonia Vaccine: Nov 23, 2013 Date of Influenza Vaccine: Jan 23, 2018 Seasonal Allergies Seasonal Allergies: No Past Medical History Surgeries: Yes (AMAURY, APPY, T&A, CATARACTS, STENTS- LEGS & HEART) Adenoidectomy, Appendectomy, Cardiac, Coronary Stent, Gallbladder, Orthopedic, Tonsillectomy, Vascular Surgery Respiratory: Yes Pneumonia Currently Using CPAP: No Currently Using BIPAP: No Cardiac: Yes (HEART STENT X1 IN 2013, STENTS X2 IN LEGS) Coronary Artery Disease, High Cholesterol, Hypertension, Peripheral Vascular Neurological: No Reproductive Disorders: No Female Reproductive Disorders: Denies Sexually Transmitted Disease: No HIV/AIDS: No Genitourinary: Yes UTI-Chronic Gastrointestinal: Yes Gastroesophageal Reflux, Chronic Constipation, Diverticulosis, Gall Bladder Disease Musculoskeletal: Yes (BACK PROBLEMS) Arthritis, Chronic Back Pain, Fractures Endocrine: No HEENT: Yes Cataract Loss of Vision: Bilateral Hearing Impairment: Hard of Hearing Cancer: No Psychosocial: No Integumentary: Yes (Shingles) Blood Disorders: No Family Medical History Arthritis 19 MOTHER, Onset:Unknown Diabetes mellitus 19 FATHER, Onset:Unknown Myocardial infarction 19 FATHER, Onset:Unknown 19 MOTHER, Onset:Unknown Review of Systems Time Seen by Provider: 14:05 Constitutional: Weakness, Malaise; No: Fever, Chills, Sweats, Other Eyes: No: Pain, Vision change, Conjunctivae inflammation, Eyelid inflammation, Other, Redness ENT: Nose congestion; No: Ear pain, Ear discharge, Nose pain, Nose discharge, Mouth pain, Mouth swelling, Throat pain, Throat swelling, Other Respiratory: Shortness of breath, SOB with excertion, Wheezing; No: Cough, Dry, Hemoptysis, Pleuritic Pain, Sputum, Wheezing, Other Cardiovascular: No: Chest Pain, Palpitations, Orthopnea, Edema, Lt Headedness, Other Sepsis Event Evaluation Height, Weight, BMI Height: 5'7.00" Weight: 137lbs. 0.0oz. 62.248362lm; 21.5 BMI Method:Stated Exam Exam Vital Signs Date Time Temp Pulse Resp B/P (MAP) Pulse Ox O2 Delivery O2 Flow Rate FiO2 11/28/18 12:17 80 18 107/57 (74) 97 Room Air 11/28/18 10:24 97.9 85 18 97/54 (68) 94 Room Air 11/28/18 09:55 Room Air 11/28/18 08:31 78 18 95/62 (73) 97 Nasal Cannula 2.00 11/28/18 06:40 96.8 75 18 146/76 (99) 96 Room Air 11/27/18 21:15 Room Air 11/27/18 21:05 74 18 133/73 (93) 95 Room Air 11/27/18 17:17 98.0 65 16 126/69 (88) 92 Room Air I & O 11/28/18 07:00 Intake Total 1400 ml Balance 1400 ml Height & Weight Height: 5'7.00" Weight: 137lbs. 0.0oz. 62.925314wl; 21.5 BMI Method:Stated General Appearance: No Apparent Distress, WD/WN, Chronically ill HEENT: PERRL/EOMI, Normal ENT Inspection, Pharynx Normal, Moist Mucous Membranes Neck: Full Range of Motion, Normal Inspection, Non Tender, Supple, Limited Ran ge of Motion (to the right) Respiratory: Chest Non Tender, Normal Breath Sounds, No Accessory Muscle Use, No Respiratory Distress, Crackles (RLL) Cardiovascular: Regular Rate, Rhythm, No Edema, No Gallop, No JVD, No Murmur Extremity: Normal Capillary Refill, Normal Inspection, Normal Range of Motion, Non Tender, No Calf Tenderness, No Pedal Edema Neurologic/Psychiatric: Alert, Oriented x3, No Motor/Sensory Deficits, Normal Mood/Affect, engine designer II-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 She does understand this maybe cancer vs infection Pneumonia -Start Augmenting -Pt does not have an IV and is a difficult stick Acute right clavicle fracture Hx of PVD with stents CHF Debility -inpt rehab ALLI ERAZO DO Nov 28, 2018 13:41
--- NOTE | 2018-11-28 14:49 | NUR ---
Ian here to see patient.
--- NOTE | 2018-11-28 14:59 | Consultation-Cardiology ---
HPI-Cardiology Cardiology Consultation Date of Consultation 11/28/18 Date of Admission Time Seen by Provider: 13:17 Indication: Chest pain HPI Patient is an 88 y/o female with history of CAD, CHF, HTN, history of lung mass which patient reports was discovered 40 years ago. Currently in IRF after sustaining fall at home resulting in right clavicular fracture. Reports was awaken this morning around 3am with episode of substernal chest pain with radiation to right jaw. Has history of CAD with stent placement in the past, follows with Dr. Marrero in [place]. States last f/u appt was August 2018, but has not had recent stress test or cardiac catheterization. Was having episode of chest pain worse with inspiration approx one hour ago. Currently denies any CP, reports occasional episode of dizziness/lightheadedness. Noted to be borderline hypotensive today. Home Medications & Allergies Allergies: Coded Allergies: atenolol (Verified Allergy, Unknown, 05/05/18) codeine (Verified Adverse Reaction, Mild, NAUSEA, 05/05/18) HEADACHE diltiazem (Verified Adverse Reaction, Mild, DOESN'T WANT, 05/05/18) indomethacin (Verified Adverse Reaction, Mild, DOESN'T WANT, 05/05/18) propranolol (Verified Adverse Reaction, Mild, DOESN'T WANT, 05/05/18) morphine (Verified Adverse Reaction, Unknown, 05/05/18) reports hearing things-reports she does not want to ever take. haS TOLERATED HYDROCODONE Uncoded Allergies: NITROPATCH (Adverse Reaction, Mild, DOESN'T WANT, 03/29/07) Home Medication List Reviewed: Yes [id number] Hx Patient Social History Marital Status: single Employed/Student: retired Alcohol Use: Denies Use Recreational Drug Use: No Smoking Status: Never a Smoker 2nd Hand Smoke Exposure: No Recent Foreign Travel: No Recent Infectious Disease Expo: No Recent Hopitalizations: Yes (RIGHT CLAVICLE FX 7-19) Physical Abuse Screen: No Sexual Abuse: No Immunizations Up To Date Tetanus Booster (TDap): Unknown Date of Pneumonia Vaccine: Nov 23, 2013 Date of Influenza Vaccine: Jan 23, 2018 Past Medical History CAD, CHF, HTN, lung mass Family Medical History Significant Family History: No Pertinent Family Hx Family History: Arthritis 19 MOTHER, Onset:Unknown Diabetes mellitus 19 FATHER, Onset:Unknown Myocardial infarction 19 FATHER, Onset:Unknown 19 MOTHER, Onset:Unknown Review of Systems-General Review of Systems Constitutional: see HPI, malaise, weakness EENTM: no symptoms reported Respiratory: no symptoms reported Cardiovascular: chest pain; No edema; Hx of Intervention; No syncope; vascular heart diseas Gastrointestinal: no symptoms reported Genitourinary: no symptoms reported Musculoskeletal: no symptoms reported, other (right neck clavicle pain) Skin: no symptoms reported Psychiatric/Neurological: Depressed All Other Systems Reviewed Negative Unless Noted: Yes Reviewed Test Results Reviewed Test Results Lab Laboratory Tests 11/28/18 03:40: Troponin I < 0.028 11/28/18 10:14: White Blood Count 16.7H, Red Blood Count 3.97L, Hemoglobin 11.6, Hematocrit 37, Mean Corpuscular Volume 93, Mean Corpuscular Hemoglobin 29, Mean Corpuscular Hemoglobin Concent 31L, Red Cell Distribution Width 12.7, Platelet Count 421H, Mean Platelet Volume 10.1, Neutrophils (%) (Auto) 90H, Lymphocytes (%) (Auto) 1L , Monocytes (%) (Auto) 8, Eosinophils (%) (Auto) 0, Basophils (%) (Auto) 0, Neutrophils # (Auto) 15.1H, Lymphocytes # (Auto) 0.2L, Monocytes # (Auto) 1.3H, Eosinophils # (Auto) 0.1, Basophils # (Auto) 0.1, Neutrophils % (Manual) 86, Lymphocytes % (Manual) 1, Monocytes % (Manual) 1, Eosinophils % (Manual) 0, Basophils % (Manual) 1, Band Neutrophils 1, Blood Morphology Comment NORMAL, Sodium Level 133L, Potassium Level 4.7, Chloride Level 102, Carbon Dioxide Level 21, Anion Gap 10, Blood Urea Nitrogen 30H, Creatinine 1.08, Estimat Glomerular Filtration Rate 48, BUN/Creatinine Ratio 28, Glucose Level 113H, Lactic Acid Level 0.81, Calcium Level 9.6, Corrected Calcium 10.1, Total Bilirubin 0.7, Aspartate Amino Transf (AST/SGOT) 191H, Alanine Aminotransferase (ALT/SGPT) 288H , Alkaline Phosphatase 334H, B-Type Natriuretic Peptide 241.4H, Total Protein 6.4, Albumin 3.4 11/28/18 12:11: Prothrombin Time 14.8H, INR Comment 1.1, Ammonia 16 Microbiology 11/22/18 Urine Culture - Final, Complete NO GROWTH ECG Impression ECG Initial ECG Rhythm: Normal Sinus Physical Exam Physical Exam Vital Signs Vital Signs - First Documented 11/22/18 11/28/18 11:30 08:31 Temp 98.4 Pulse 101 Resp 20 B/P (MAP) 145/84 (104) Pulse Ox 95 O2 Delivery Room Air O2 Flow Rate 2.00 Capillary Refill : Less Than 3 Seconds Height, Weight, BMI Height: 5'7.00" Weight: 137lbs. 0.0oz. [id number]; 21.5 BMI Method:Stated General Appearance: No Apparent Distress, WD/WN, Chronically ill HEENT: PERRL/EOMI, Normal ENT Inspection, Pharynx Normal, Moist Mucous Membranes Neck: Full Range of Motion, Normal Inspection, Non Tender, Supple, Limited Range of Motion (to the right) Respiratory: Chest Non Tender, Normal Breath Sounds, No Accessory Muscle Use, No Respiratory Distress, Crackles (RLL) Cardiovascular: Regular Rate, Rhythm, No Edema, No Gallop, No JVD, No Murmur Gastrointestinal: Normal Bowel Sounds, No Organomegaly, No Pulsatile Mass, Non Tender, Soft Back: Normal Inspection, No CVA Tenderness, No Vertebral Tenderness Extremity: Normal Capillary Refill, Normal Inspection, Normal Range of Motion, Non Tender, No Calf Tenderness, No Pedal Edema Neurologic/Psychiatric: Alert, Oriented x3, No Motor/Sensory Deficits, Normal Mood/Affect, career transition specialist II-XII Norm as Tested, Motor Weakness (generalized all extremities, balance deficit noted, high fall risk when walking with walker) Skin: Normal Color, Warm/Dry Lymphatic: No Adenopathy A/P-Cardiology Admission Diagnosis Chest pain CAD CHF HTN Assessment/Plan Chest pain, non specific etiology- EKG reveals SR with no acute ST changes, troponin negative. Reports CP worse with movement and deep inspiration. Continue to monitor. CAD- reported history of stent placement in the past. Follows with Dr. Marrero as outpatient. CHF- 2D Echo done 2018 revealed EF 30-35%. Maintained on Entresto, beta fadi. Continue on current medication and continue to monitor. I will reevaluate 2D Echo HTN- currently borderline hypotensive. BP medications held this morning secondary to hypotension. I will decrease Toprol XL to 50mg daily. Continue to monitor. Lung mass- patient reports diagnosed 40 years ago and has refused treatment. Elevated LFT's History of frequent falls at home Right clavicle fracture secondary to fall. Thank you for allowing us to participate in the management of Ms. Hampton. This is Carmina Mojica PA-C, as a scribe for Dr. Diallo. This is Dr. Diallo, I have seen and evaluated the patient with Carmina, in summary this is an 88 years old lady with history of coronary artery disease, congestive heart failure, sustained a fall without syncope resulted in right clavicular fracture. Had an episode of chest pain earlier today. Reporting improvement, still having bruising in her chest, chest pain appeared to be reproducible with deep inspiration. EKG did not show any acute abnormality, cardiac enzymes were negative. On examination lungs were clear to auscultation bilateral, heart is regular rate and rhythm. I will continue current medication, Planning to evaluate echocardiogram, I will try to adjust her blood pressure medication to achieve better blood pressure control. Liver enzymes were noted to be elevated, I will stop Lipitor and evaluate ultrasound Clinical Quality Measures DVT/VTE Risk/Contraindication: Risk Factor Score Per Nursin RFS Level Per Nursing on Admit: 4+=Very High CARMINA NICOLE Nov 28, 2018 14:59 NICOLE DIALLO MD Nov 28, 2018 16:31
[2018-11-28] MEDS ORDERED: PIPERACILLIN/TAZO 4.5 GM/NS 100 ML IV NR ×2 (15:04)
[2018-11-28] MEDS: RT-ALBUTEROL SULF 2.5 MG/3 ML PRE-MIX VIAL INH SCH ×2 (15:51→15:52)
--- NOTE | 2018-11-28 15:53 | Speech Therapy Daily Note ---
Speech Daily Progress Note Subjective Date Seen by Provider: Nov 28, 2018 Time Seen by Provider: 00:30 The patient was feeling better this afternoon after suffering chest pains the past evening. Objective The patient completed memory tasks with 90% accuracy given min to mod verbal cues. Assessment Assessment Current Status: Good Progress Treatment Plan Continue Plan of Care Communication Comprehension: 6 Expression: 6 Social Cognition Social Interaction: 7 Problem Solvin Memory: 5 Speech Short Term Goals Short Term Goals Short Term Goals Patient will demonstrate simple problem solving and memory with 80% accuracy when given minimal cues Comprehension: 6 Expression: 6 Social Interaction: 7 Problem Solvin Memory: 5 Speech Jail Goals Jail Goals Patient will improve cognitive-communication necessary for safety and daily living tasks with minimal assist Comprehension: 6 Expression: 6 Social Interaction: 7 Problem Solvin Memory: 5 Speech-Plan Patient/Family Goals Patient/Family Goals: The patient plans on returning home post rehab. Treatment Plan Speech Therapy Treatment Plan: Continue Plan of Care Patient is making progress as a result of skilled ST services. Treatment Duration: Dec 06, 2018 Frequency: 5 times per week Estimated Hrs Per Day: .5 hour per day Rehab Potential: Good Barriers to Learning: The patient has mild cognitive deficits. Pt/Family Agrees to Plan: Yes Safety Risks/Education Teaching Recipient: Patient Teaching Methods: Discussion Response to Teaching: Verbalize Understanding Education Topics Provided: Safety within her room and communication of her wants/needs. Time Speech Therapy Time In: 14:30 Speech Therapy Time Out: 15:00 Total Billed Time: 30 Billed Treatment Time 1, KAYLEN Bowden Nov 28, 2018 15:53
[2018-11-28] MEDS: GABAPENTIN 100 MG (NEURONTIN) CAP PO SCH (16:56)
--- NOTE | 2018-11-28 17:47 | Diagnostic Imaging Report ---
PROCEDURE: US Hepatic (Liver). TECHNIQUE: Multiple real-time grayscale images were obtained over the right upper quadrant in various projections. INDICATION: Elevated liver function tests. FINDINGS: Liver measures 13.9 cm in size. No discrete liver mass is identified. Gallbladder is surgically absent. Intrahepatic ducts do appear to be somewhat prominent; however, this may be owing to post cholecystectomy. Extrahepatic duct is not well visualized. Pancreas is unremarkable. Right kidney is small measuring 7.5 cm. No hydronephrosis is seen. There is no ascites. IMPRESSION: No acute abnormality detected. No liver mass is seen. Dictated by: Dictated on workstation # [id number]
--- NOTE | 2018-11-28 17:53 | NUR ---
Unable to start IV X3 RNs. Dr. Hearn notified. Orders to DC Zosyn and start Augmentin 875 MG PO BID.
[2018-11-28 18:37] VITALS: BP 128/70
[2018-11-28] MEDS: AUGMENTIN 875 MG TAB (AMOXICILLIN/CLAVULANATE) PO SCH (18:49)
[2018-11-28] MEDS ORDERED: PIPERACILLIN/TAZOBACTAM (BULK) 4.5 GM in NS (IVPB) 100 ML IV SCH (21:00)
[2018-11-28] MEDS: AMITRIPTYLINE 25 MG (ELAVIL) TAB PO SCH (21:13)
[2018-11-29] MEDS: RT-ALBUTEROL SULF 2.5 MG/3 ML PRE-MIX VIAL INH SCH ×4 (01:39→21:12)
[2018-11-29 05:33] LABS: BILIRUBIN,URINE NEGATIVE (NEGATIVE); CLARITY,URINE CLEAR; COLOR,URINE YELLOW; GLUCOSE, URINE (UA) NEGATIVE (NEGATIVE); KETONES,URINE NEGATIVE (NEGATIVE); LEUKOCYTE ESTERASE ,URINE 3+ (NEGATIVE); NITRITE,URINE POSITIVE (NEGATIVE); PH,URINE 5 (5-9); PROTEIN,URINE NEGATIVE (NEGATIVE); UROBILINOGEN,URINE NORMAL (NORMAL)
[2018-11-29 05:45] LABS: BACTERIA,URINE MODERATE /HPF; RBC,URINE RARE /HPF; SQUAMOUS EPITHELIAL CELL,UR 0-2 /HPF; WBC,URINE 50-100 /HPF
[2018-11-29 05:50] VITALS: BP 161/69
[2018-11-29] MEDS: CYANOCOBALAMIN 1,000 MCG (VITAMIN B-12) TABLET PO SCH (06:26)
[2018-11-29] MEDS: MULTIVIT W/MINERALS TAB (THERAGRAN M) PO SCH (06:26)
[2018-11-29] MEDS: AUGMENTIN 875 MG TAB (AMOXICILLIN/CLAVULANATE) PO SCH (06:26)
[2018-11-29 06:57] LABS: BASOPHILS # (AUTO) 0.1 10^3/uL (0.0-0.1); BASOPHILS % (AUTO) 1 % (0-10); EOSINOPHILS # (AUTO) 0.4 10^3/uL (0.0-0.3); EOSINOPHILS % (AUTO) 3 % (0-10); HEMATOCRIT 34 % (35-52); HEMOGLOBIN 12.1 G/DL (11.5-16.0); LYMPHOCYTES # (AUTO) 0.3 X 10^3 (1.0-4.0); LYMPHOCYTES % (AUTO) 3 % (12-44); MEAN CORPUSCULAR HEMOGLOBIN 34 PG (25-34); MEAN CORPUSCULAR HGB CONC 36 G/DL (32-36); MEAN CORPUSCULAR VOLUME 94 FL (80-99); MEAN PLATELET VOLUME 10.5 FL (7.4-10.4); MONOCYTES # (AUTO) 1.4 X 10^3 (0.0-1.0); MONOCYTES % (AUTO) 13 % (0-12); NEUTROPHILS # (AUTO) 8.6 X 10^3 (1.8-7.8); NEUTROPHILS % (AUTO) 81 % (42-75); PLATELET COUNT 250 10^3/uL (130-400); RED CELL DISTRIBUTION WIDTH 12.9 % (10.0-14.5); WHITE BLOOD COUNT 10.7 10^3/uL (4.3-11.0)
[2018-11-29 07:30] LABS: ALBUMIN 3.4 GM/DL (3.2-4.5); BILIRUBIN,TOTAL 0.6 MG/DL (0.1-1.0); CALCIUM 9.6 MG/DL (8.5-10.1); CREATININE SERUM 1.17 MG/DL (0.60-1.30); POTASSIUM 4.8 MMOL/L (3.6-5.0); TOTAL PROTEIN 6.5 GM/DL (6.4-8.2)
--- NOTE | 2018-11-29 07:54 | PM&R Progress Note ---
ANDREI WALKER, 11/29/18 0754: Subjective HPI/CC On Admission Date Seen by Provider: Nov 29, 2018 Time Seen by Provider: 07:20 Chief Complaint: Debility following fall with right clavicle fracture HPI: This is a 88 yoWF clinic pt of Dr. Dobbins and Dr. Marrero cardiology in [place] who has a PMH of known lung mass did not pursue that a few years ago who presents to inpatient rehab following an observation stay after a fall sustaining a right clavicle fracture. She lives at home alone shes been falling a lot and has become quite debilitated and the goal is to return home to independent living with ADL independence and ambulatory status independent. 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 She does recall meeting me. At this current time pt is very well controlled is aware of the additional lung mass that she has no intention of treating and Dr. Hoskins updated her on that fact and overall she's ready to get started to recover and ultimately return back to home. Subjective/Events-last exam Chest pain is much better today, rated 1/10 on pain scale. Feeling better today overall. Bowel movement yesterday. Liver U/S went well and awaiting results. Dr. Oviedo provided those when rounding. No complaints. Up moving around and feels great. CBC: WBC down to 10.7 CMP: BUN elevated, LFTs decreasing, low CO2 at 17 Urine: moderate bacteria, + nitrate, 3+ esterase Repeat echo 0745 and awaiting results. Focused Exam Lactate Level 11/28/18 10:14: Lactic Acid Level 0.81 Objective Exam Vital Signs Vital Signs Date Time Temp Pulse Resp B/P (MAP) Pulse Ox O2 Delivery O2 Flow Rate FiO2 11/29/18 08:29 Room Air 11/29/18 06:40 91 11/29/18 05:50 98.8 86 18 161/69 (99) 11/28/18 08:31 2.00 Capillary Refill : Less Than 3 Seconds General Appearance: WD/WN, Chronically ill, Mild Distress, Other (fatigued) HEENT: PERRL/EOMI, Normal ENT Inspection, Pharynx Normal, Moist Mucous Membranes Neck: Full Range of Motion, Normal Inspection, Non Tender, Supple, Limited Range of Motion (to the right) Respiratory: Crackles (bases bilateral), Decreased Breath Sounds Cardiovascular: Regular Rate, Rhythm, No Edema, No Gallop, No Murmur Gastrointestinal: Normal Bowel Sounds, No Organomegaly, No Pulsatile Mass, Non Tender, Soft Back: Normal Inspection, No CVA Tenderness, No Vertebral Tenderness Extremity: Normal Capillary Refill, Normal Inspection, Normal Range of Motion, Non Tender, No Calf Tenderness, No Pedal Edema Neurologic/Psychiatric: Alert, Oriented x3, No Motor/Sensory Deficits, Normal Mood/Affect, radio equipment installer II-XII Norm as Tested Skin: Normal Color, Warm/Dry Lymphatic: No Adenopathy Results/Procedures Lab Laboratory Tests 11/28/18 10:14 11/29/18 06:42 Patient resulted labs reviewed. Radiology Liver U/S: no ascites, no mass, not enlarged, pancreas looks normal, right kidney is decreased in size at 7.5cm. FIM Transfers Therapy Code Descriptions/Definitions Functional Portal Measure: 0=Not Assessed/NA 4=Minimal Assistance 1=Total Assistance 5=Supervision or Setup 2=Maximal Assistance 6=Modified Portal 3=Moderate Assistance 7=Complete Portal Therapy Quality Codes: 6 Independent with activity with or without an assistive device 5 Patient requires set up or clean up by helper. Patient completes activity by themselves 4 Supervision or touching assist (CGA). [place] provide cues , steadying assist 3 The helper provides less than half the effort to complete the activity 2 The helper provides more than half the effort to complete the activity 1 Dependent. The helper does all the effort to complete an activity 7 Patient refused to complete or attempt activity 9 The patient did not perform the activity before the current illness or injury 88 Not attempted due to Medical conditions or safety concerns Transfers (B, C, W/C) (FIM): 3 Scootin Rollin Roll Left to Right (QC): 4 Supine to/from Sit: 3 Sit to/from Stand: 4 Sit to Lying (QC): 3 Sit to Stand (QC): 4 Chair/Hak-gs-Gfnah Xfer(QC): 4 Bed to/from Chair: 5 Car Transfer (QC): 3 (assist to get her legs into the car) Gait Training Does the Patient Walk?: Yes Gait (FIM): 5 Distance (FIM): 3=150 ft Distance: 175' Walk 10 feet (QC): 5 Walk 50 ft with 2 Turns(QC): 5 Walk 150 ft (QC): 5 Walking 10ft/uneven surface-QC: 3 Gait Level of Assist: 5 Gait Persons Needed: 1 Gait Assistive Device: Walker Platform Wheelchair Training Does the Pt Use a Wheelchair?: No Stair Training Stair Training: Handrails/: uses walker Stairs (FIM): 2 #of Steps: 4 1 Step (curb) (QC): 3 (mod assist to step up) 4 Steps (QC): 88 12 Steps (QC): 88 Stairs: Pattern: Step to Level of Assist: 4 Balance Picking up an Object (QC): 88 Mental Status/Objective Comprehension: 6 Expression: 6 Social Interaction: 7 Problem Solvin Memory: 5 ADL-Treatment Feedin (pt uses right hand 50% of meal then switch to left hand secodnary to pain. pt reuqired setup of items ) Eating (QC): 4 Groomin (CGA while standing at sink. pt required assist with set up of items) Oral Hygiene (QC): 4 Bathin Bathing Location: L Upper Leg, R Upper Leg, Chest, Abdomen, Perineal Area Shower/Bathe Self (QC): 3 Upper Extremity Dressin (tie puller shirt) Upper Body Dressing (QC): 1 Lower Extremity Dressin (underpants, pants, tre socks) Lower Body Dressing (QC): 3 On/Off Footwear (QC): 1 Toiletin (requried assist with 3/3 toileting tasks) Toileting Hygiene (QC): 1 Toilet/Commode Transfer: 3 (use of SPC required MOD A to perform sit to stand) Toilet Transfer (QC): 3 Shower: 3 (use of SPC, GB required MOD A to perform sit to standshower chair) 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 but does not wish to have work-up or treatment CAD with stents in place PVD with stents in place Lives alone CHF UTI's Crackles RLL acute-improved with IS use Plan: Consult pulmonology Stop atorvastatin d/t liver enzymes Stop acetaminophen d/t liver enzymes Repeat echo and view results Use tramadol for pain to prevent delirium Inpatient rehab protocol Ambulation with walker for fall prevention Regain independence with ADLs with right clavicle fracture and arm in sling Use platform to help navigate ambulation due to clavicle fracture Right arm sling prn to help with the pain IS Control pain (1) Fall on same level (2) Congestive heart failure (3) B12 deficiency (4) Recurrent UTI (5) Hyperlipemia (6) PVD (peripheral vascular disease) (7) CAD (coronary artery disease) (8) Coronary arteriosclerosis (9) Clavicle fracture (10) Hypertension (11) Lung mass (12) Peripheral vascular disease TASHIA OVIEDO DO 11/29/182039: Subjective Subjective/Events-last exam Appreciate Dr. Hearn's help because of the low oxygen saturation and elevated white count and she was placed empirically on Augmentin for any type of bronchial component due to the lung masses and she is having difficulty swallowing the pills so will change to liquid. She does have a lot of pain, asks for her Ultram before its time. We discontinued Tylenol and Statin therapy due to elevated liver enzymes. Bowels moved yesterday. Overall improved and denies any chest pain. She was 91% O2 saturation today. Abdominal ultrasound results were updated to the patient and echocardiogram was obtained per Dr. Diallo's orders. Slowly walking 150 feet with a platform walker. She is having a severe fear of falls and the son is actually encouraging transfer to assisted living at time of discharge and that would relieve me of any concerns I would have for her because she doesn;t appear to be strong enough and especially with eh lung cancer presumed she seems to have a significant decline and will need more help in the future. Review of Systems General: Fatigue Pulmonary: Dyspnea Neurological: Weakness, Incoordination Objective Exam General Appearance: No Apparent Distress, WD/WN, Chronically ill HEENT: PERRL/EOMI, Normal ENT Inspection Respiratory: No Accessory Muscle Use, No Respiratory Distress, Crackles (bases bilateral), Decreased Breath Sounds Gastrointestinal: Normal Bowel Sounds, Soft Extremity: Normal Capillary Refill, Normal Inspection, Normal Range of Motion (except right arm), Non Tender, No Calf Tenderness Neurologic/Psychiatric: Alert, Oriented x3, No Motor/Sensory Deficits, Normal Mood/Affect, radio equipment installer II-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 Norm as Tested Assessment/Plan Assessment and Plan Assess & Plan/Chief Complaint Reviewed assessment and plan Pain control Monitor labs closely Abx empiric for bronchial source nut UTI likely source also Lung cancer is presumed Needs AL Supervisory-Addendum Brief Verification & Attestation Time: Verification & Attestat.: 08:30 Participated in pt care: history, MDM, physical Personally performed: exam, history, MDM, supervision of care Care discussed with: Medical Student Procedures: n/a Results interpretation: Verified all documentation Verification and Attestation of Medical Student E/M Service A medical student performed and documented this service in my presence. I reviewed and verified all information documented by the medical student and made modifications to such information, when appropriate. I personally performed the physical exam and medical decision making. Tashia Oviedo, Nov 29, 2018,20:38 ANDREI WALKER, Nov 29, 2018 07:54 TASHIA OVIEDO DO Nov 29, 2018 20:40
[2018-11-29] MEDS: SENNA W/DOCUSATE (SENOKOT S) TABLET PO SCH ×2 (08:44→21:32)
[2018-11-29] MEDS: SPIRONOLACTONE 25 MG (ALDACTONE) TAB PO SCH (08:44)
[2018-11-29] MEDS: SACUBITRIL/VALSARTAN 24/26 MG (ENTRESTO) TABLET PO SCH ×2 (08:44→21:32)
[2018-11-29] MEDS: ASPIRIN 81 MG CHEW (CHILDREN'S ASA) PO SCH (08:44)
[2018-11-29] MEDS: meTOproloL SUCCINATE 50 MG (TOPROL XL) TAB PO SCH (08:44)
[2018-11-29] MEDS: MOVE FREE JOINT HEALTH PO SCH (08:45)
[2018-11-29] MEDS: LUTEIN 40 MG PO SCH (08:45)
--- NOTE | 2018-11-29 10:16 | Cardiology Progress Note ---
Subjective Date Seen by Provider: Nov 29, 2018 Time Seen by Provider: 10:12 Subjective/Events-last exam Patient sitting up in wheelchair, no new complaints, denies any further episode of chest pain. Review of Systems General: No Chills, No Night Sweats, No Fatigue, No Malaise, No Appetite, No Other HEENT: No Head Aches, No Visual Changes, No Eye Pain, No Ear Pain, No Dysphasia, No Sinus Congestion, No Post Nasal Drip, No Sore Throat, No Other Pulmonary: No Dyspnea, No Cough, No Pleuritic Chest Pain, No Other Cardiovascular: No: Chest Pain, Palpitations, Orthopnea, Paroxysmal Noc. Dyspnea, Edema, Lt Headedness, Other Focused Exam Lactate Level 11/28/18 10:14: Lactic Acid Level 0.81 Objective-Cardiology Exam Last Set of Vital Signs Vital Signs 11/28/18 11/29/18 11/29/18 11/29/18 08:31 05:50 06:40 08:29 Temp 98.8 Pulse 86 Resp 18 B/P (MAP) 161/69 (99) Pulse Ox 91 O2 Delivery Room Air O2 Flow Rate 2.00 Capillary Refill : Less Than 3 Seconds I&O Intake and Output 11/29/18 00:00 Intake Total 970 ml Balance 970 ml Intake Oral 970 ml # Voids 5 # Bowel Movements 1 General: Alert, Oriented X3, Cooperative HEENT: Atraumatic, PERRLA Neck: Supple, No JVD, No Thyromegaly Lungs: Clear to Auscultation, Normal Air Movement Heart: Regular Rate, Normal S1, Normal S2, No Murmurs Abdomen: Normal Bowel Sounds, Soft, No Tenderness, No Hepatosplenomegaly, No Masses Extremities: No Clubbing, No Cyanosis, No Edema, Normal Pulses, No Tenderness/Swelling Skin: No Rashes, No Breakdown, No Significant Lesion Neuro: Normal Gait, Normal Speech, Strength at 5/5 X4 Ext, Normal Tone, Sensation Intact Psych/Mental Status: Mental Status NL, Mood NL Results Lab Laboratory Tests 11/29/18 06:42 A/P-Cardiology Admission Diagnosis Chest pain CAD CHF HTN Assessment/Plan Chest pain, non specific etiology- EKG reveals SR with no acute ST changes, troponin negative. Reports CP worse with movement and deep inspiration. Denies any further episode of chest pain. Continue to monitor. CAD- reported history of stent placement in the past. Follows with Dr. Marrero as outpatient. CHF- 2D Echo done 2018 revealed EF 30-35%. Maintained on Entresto, beta fadi. Continue on current medication and continue to monitor. I will reevaluate 2D Echo HTN- continue on current medication and continue to monitor blood pressure. Lung mass- patient reports diagnosed 40 years ago and has refused treatment. Elevated LFT's- lipitor d/c'd. underwent Liver US yesterday which was WNL. History of frequent falls at home Right clavicle fracture secondary to fall. Clinical Quality Measures DVT/VTE Risk/Contraindication: Risk Factor Score Per Nursin RFS Level Per Nursing on Admit: 4+=Very High Supervisory-Addendum Brief Supervisory Addendum Participated in pt care: history, MDM, physical Personally performed: exam, history, MDM Care discussed with: MONA Notes: patient was seen and evaluated with Carmina, perform examination, lungs are clear to auscultation bilateral, heart is regular rate and rhythm. Patient reporting improvement in her chest pain, has history of coronary artery disease, had congestive heart failure, continue on current medication and I will review 2-D echocardiogram. CARMINA NICOLE Nov 29, 2018 10:16 NICOLE DE LOS SANTOS MD Nov 29, 2018 13:09
--- NOTE | 2018-11-29 11:12 | Occupational Ther Daily Note ---
OT Current Status-Daily Note Subjective pt sitting in chair upon OT arrival. pt agreed to OT TX Session with focus on increasing independence with ADLs and functional transfers. pt c/o no pain. Mental Status/Objective Patient Orientation: Normal For Age Therapy Code Descriptions/Definitions Functional [place] Measure: 0=Not Assessed/NA 4=Minimal Assistance 1=Total Assistance 5=Supervision or Setup 2=Maximal Assistance 6=Modified [place] 3=Moderate Assistance 7=Complete [place] ADL-Treatment Therapy Code Descriptions/Definitions Functional [place] Measure: 0=Not Assessed/NA 4=Minimal Assistance 1=Total Assistance 5=Supervision or Setup 2=Maximal Assistance 6=Modified [place] 3=Moderate Assistance 7=Complete [place] Therapy Quality Codes: 6 Independent with activity with or without an assistive device 5 Patient requires set up or clean up by helper. Patient completes activity by themselves 4 Supervision or touching assist (CGA). [place] provide cues , steadying assist 3 The helper provides less than half the effort to complete the activity 2 The helper provides more than half the effort to complete the activity 1 Dependent. The helper does all the effort to complete an activity 7 Patient refused to complete or attempt activity 9 The patient did not perform the activity before the current illness or injury 88 Not attempted due to Medical conditions or safety concerns Eating (FIM): 6 (increase timing. slow movement with Donte UE ) Eating (QC): 6 Grooming (FIM): 6 (standind at sink. increased timing secodanry slow movement with donte UE ) Oral Hygiene (QC): 6 Bathing (FIM): 4 (CGA while stanidng. noted pt has fear of falling. only stood to wash buttock. ) Bathing Location: L Arm, R Arm, L Upper Leg, R Upper Leg, L Lower Leg (including foot), R Lower Leg (including foot), Chest, Abdomen, Buttocks, Perineal Area Shower/Bathe Self (QC): 4 Upper Body (FIM): 5 (INCREASED TIMING to complete task) Upper Body Dressing (QC): 4 Lower Body Dressing (FIM): 5 (use of AE. INCREASED TIMING TO COMPLETE TASK. REQUIRED CUING TO COMPLETE TASK WITHOUT ASSIST. ) Lower Body Dressing (QC): 4 On/Off Footwear (QC): 4 Toileting (FIM): 5 (INCREASED TIMING TO COMPLETE TASK SECODNARY TO SLOW MOVEMENTS ) Toileting Hygiene (QC): 4 Transfers (B, C, W/C) (FIM): 4 (INCREASED TIMING TO COMPLETE TASK SECODNARY TO SLOW MOVEMENTS PT required MIN A to perform sit to stand) Toilet/Commode Transfer (FIM): 4 (INCREASED TIMING TO COMPLETE TASK SECODNARY TO SLOW MOVEMENTS ) Toilet Transfer (QC): 4 Shower Transfer(FIM): 4 (INCREASED TIMING TO COMPLETE TASK SECODNARY TO SLOW MOVEMENTS MIN A for sit to stand. ) Education OT Patient Education: Energy conservation, Modified ADL techniques, Progress toward Goal/Update tx plan, Purpose of tx/functional activities, Reviewed precautions, Rehab process, Safety issues, Transfer techniques, Use of adapted equipment Teaching Recipient: Patient Teaching Methods: Demonstration, Discussion Response to Teaching: Verbalize Understanding, Return Demonstration OT Short Term Goals Short Term Goals Time Frame: Dec 06, 2018 Eating(FIM): 6 Grooming(FIM): 5 Bathing(FIM): 4 Bathing Location: L Arm, R Arm, L Upper Leg, R Upper Leg, L Lower Leg (including foot), R Lower Leg (including foot), Chest, Abdomen, Buttocks, Perineal Area Upper Body Dressing(FIM): 4 Lower Body Dressing(FIM): 4 Toileting(FIM): 4 Transfers (B,C,W/C) (FIM): 4 Toilet/Commode Transfer(FIM): 4 Shower Transfer(FIM): 4 Comprehension(FIM): 6 Expression(FIM): 6 Social Interaction(FIM): 7 Problem Solving(FIM): 5 Memory(FIM): 5 Additional Short Term Goals: 1-Demonstrate ADL Tasks, 2-Verbalize Understanding, 3-ImproveStrength/[place]ese[place] 1=Demonstrate adherence to instructed precautions during ADL tasks. 2=Patient will verbalize/demonstrate understanding of assistive devices/modifications for ADL. 3=Patient will improve strength/tolerance for activity to enable patient to perform ADL's. OT Halfway Goals Employment Service Specialist Goals Time Frame: Dec 20, 2018 Eating (FIM): 7 Eating (QC): 6 Groomin Oral Hygiene (QC): 6 Bathing(FIM): 6 Bathing Location: L Arm, R Arm, L Upper Leg, R Upper Leg, L Lower Leg (including foot), R Lower Leg (including foot), Chest, Abdomen, Buttocks, Perineal Area Shower/Bathe Self (QC): 6 Upper Body Dressing(FIM): 6 Upper Body Dressing (QC): 6 Lower Body Dressing(FIM): 6 Lower Body Dressing (QC): 6 On/Off Footwear (QC): 6 Toileting(FIM): 6 Toileting Hygiene (QC): 6 Transfers (B,C,W/C) (FIM): 6 Toilet/Commode Transfer(FIM): 6 Toilet/Commode Transfer (QC): 6 Shower Transfer(FIM): 6 Comprehension(FIM): 6 Expression (FIM): 6 Social Interaction(FIM): 7 Problem Solving(FIM): 5 Memory(FIM): 5 Additional Goals: 1-Demonstrate ADL Tasks, 2-Verbalize Understanding, 3- ImproveStrength/Desean 1=Demonstrate adherence to instructed precautions during ADL tasks. 2=Patient will verbalize/demonstrate understanding of assistive devices/m odifications for ADL. 3=Patient will improve strength/tolerance for activity to enable patient to perform ADL's. OT Education/Plan Problem List/Assessment Assessment: Decreased Activ Tolerance, Decreased Safety Aware, Decreased UE Strength, Impaired Bed Mobility, Impaired Coordination, Impaired I ADL's, Impaired Self-Care Skills, Restricted Funct UE ROM pt presents with functional limitations affecting areas of ADLS and functional transfers with the above mention deficits. pt would benefit from skilled OT services to increase independence with ADL and functional transfers. Discharge Recommendations Plan/Recommendations: Continue POC Equpiment Recommendations-D/C: Finish Saw Operator, Sock Aide, Dressing Stick Treatment Plan/Plan of Care Treatment,Training & Education: Yes Patient would benefit from OT for education, treatment and training to promote independence in ADL's, mobility, safety and/or upper extremity function for ADL's. Plan of Care: ADL Retraining, Caregiver Training, Functional Mobility, Group Exercise/Act as Ind, UE Funct Exercise/Act Treatment Duration: Dec 20, 2018 Frequency: At least 5 of 7 days/Wk (IRF) Estimated Hrs Per Day: 1 hour per day (60-90 minutes per day) Agreement: Yes Rehab Potential: Good Time/GCodes Start Time: 09:15 Stop Time: 10:40 Billed Treatment Time ADL 85 minutes, 6 units ANTONETTE GUEVARA OT Nov 29, 2018 11:11
[2018-11-29] MEDS: ENOXAPARIN 40 MG/0.4 ML (LOVENOX) SYR SC SCH (11:23)
--- NOTE | 2018-11-29 12:18 | Physical Therapy Daily Note ---
PT Daily Note-Current Subjective Pt sitting in chair in room upon arrival. Pt agrees to PT. Pain Numeric Pain Scale: 7 Location: Right Location Body Site: Shoulder Pain Description: Ache, Tightness Mental Status Patient Orientation: Person, Place, Time, Situation Transfers Therapy Code Descriptions/Definitions Functional [place] Measure: 0=Not Assessed/NA 4=Minimal Assistance 1=Total Assistance 5=Supervision or Setup 2=Maximal Assistance 6=Modified [place] 3=Moderate Assistance 7=Complete [place] Therapy Quality Codes: 6 Independent with activity with or without an assistive device 5 Patient requires set up or clean up by helper. Patient completes activity by themselves 4 Supervision or touching assist (CGA). [place] provide cues , steadying assist 3 The helper provides less than half the effort to complete the activity 2 The helper provides more than half the effort to complete the activity 1 Dependent. The helper does all the effort to complete an activity 7 Patient refused to complete or attempt activity 9 The patient did not perform the activity before the current illness or injury 88 Not attempted due to Medical conditions or safety concerns Scootin Sit to/from Stand: 4 Sit to Stand (QC): 4 Weight Bearing Full Weight Bearing Full Weight Bearing sling right UE; Physician reports she may use her right UE for use in a platform walker. Gait Training Does the Patient Walk?: Yes Gait (FIM): 4 Distance (FIM): 3=150 ft Distance: 150' Walk 10 feet (QC): 5 Walk 50 ft with 2 Turns(QC): 4 Walk 150 ft (QC): 4 Gait Level of Assist: 4 Gait Persons Needed: 1 Gait Assistive Device: Walker Platform Pt walks with slow carolyn but steady, no LOB. Exercises Seated Therapy Exercises: Ankle pumps, Long arc quads, Hip flexion, Kicking activity, Hip abd/add Seated Reps: 15 Standing: Hip Abduction, Heel/toe raises, Marching, Mini squats Standing Reps: 15 NuStep Minutes: 12 NuStep Workload: 5 Treatments Pt completes Seated Ex in chair. Pt transfers from chair at CGA-Min A. Pt ambulates in hallway to Therapy Gym. Pt use NuStep for 12m at WL 5. After short RB, completes Standing EX at //bars then pt ambulates in hallway again before returning to room to rest in chair. SENIOR HEALTH CONSULTANT assists pt with ordering lunch. Pt resting with all needs met, call light in hand. Assessment Current Status: Good Progress Pt's activity tolerance has improved a little today. Pt still reports pain in R shoulder even with pain med. Pt still needing RB due to fatigue. PT Short Term Goals Short Term Goals Time Frame: Nov 29, 2018 Transfers (B,C,W/C) (FIM): 4 Gait (FIM): 4 PT Care Home Goals Care Home Goals PT Care Home Goals Time Frame: Dec 14, 2018 Transfers (B,C,W/C) (FIM): 6 Sit to Lying (QC): 6 Lying-Sitting on Side/Bed(QC): 6 Sit to Stand (QC): 6 Rollin Roll Left to Right (QC): 6 Chair/Odl-bl-Crviu Xfer(QC): 6 Car Transfer (QC): 6 Does the Patient Walk: Yes Gait (FIM): 6 Gait distance (FIM): 3=150 ft Walk 10 feet (QC): 6 Walk 10ft-Uneven Surface(QC): 6 Walk 50ft with 2 Turns (QC): 6 Walk 150 ft (QC): 6 Gait Assistive Device: FWW Stairs (FIM): 2 # of Steps: 4 1 Step (curb) (QC): 6 4 Steps (QC): 6 12 Steps (QC): 88 Picking up an Object (QC): 88 PT Plan Problem List Problem List: Activity Tolerance, Functional Strength, Gait, Transfer Treatment/Plan Treatment Plan: Continue Plan of Care Treatment Plan: Bed Mobility, Education, Functional Activity [place], Functional Strength, Group Therapy, Gait, Safety, Therapeutic Exercise, Transfers Treatment Duration: Dec 14, 2018 Frequency: At least 5 of 7 days/Wk (IRF) Estimated Hrs Per Day: 1.5 hours per day Patient and/or Family Agrees t: Yes Safety Risks/Education Patient Education: Gait Training, Transfer Techniques, Correct Positioning, Safety Issues Teaching Recipient: Patient Teaching Methods: Discussion Response to Teaching: Verbalize Understanding Time/GCodes Time In: 1040 Time Out: 1145 Total Billed Treatment Time: 65 Total Billed Treatment 1, GT (20m), EX x2 (35m) & FA (10m) G Codes Necessary: IRENE Pagan SENIOR HEALTH CONSULTANT Nov 29, 2018 12:18
--- NOTE | 2018-11-29 14:08 | Pulmonary Progress Note ---
Subjective Time Seen by a Provider: 14:06 Subjective/Events-last exam Pt denies SOB or productive cough. Sepsis Event Evaluation Height, Weight, BMI Height: 5'7.00" Weight: 150lbs. 12.6oz. [id number]; 21.5 BMI Method:Stated Focused Exam Lactate Level 11/28/18 10:14: Lactic Acid Level 0.81 Exam Exam Vital Signs Date Time Temp Pulse Resp B/P (MAP) Pulse Ox O2 Delivery O2 Flow Rate FiO2 11/29/18 08:29 Room Air 11/29/18 06:40 91 11/29/18 05:50 98.8 86 18 161/69 (99) 94 Room Air 11/28/18 20:10 Room Air 11/28/18 18:37 98.1 89 16 128/70 (89) 94 Room Air 11/28/18 15:54 90 Room Air I & O 11/29/18 07:00 Intake Total 620 ml Balance 620 ml Height & Weight Height: 5'7.00" Weight: 150lbs. 12.6oz. 68.296169ph; 21.5 BMI Method:Stated General Appearance: No Apparent Distress, WD/WN, Chronically ill HEENT: PERRL/EOMI, Normal ENT Inspection, Pharynx Normal, Moist Mucous Mem branes Neck: Full Range of Motion, Normal Inspection, Non Tender, Supple, Limited Range of Motion (to the right) Respiratory: Chest Non Tender, Normal Breath Sounds, No Accessory Muscle Use, No Respiratory Distress, Crackles (RLL) Cardiovascular: Regular Rate, Rhythm, No Edema, No Gallop, No JVD, No Murmur Extremity: Normal Capillary Refill, Normal Inspection, Normal Range of Motion, Non Tender, No Calf Tenderness, No Pedal Edema Neurologic/Psychiatric: Alert, Oriented x3, No Motor/Sensory Deficits, Normal Mood/Affect, manager auto II-XII Norm as Tested, Motor Weakness (generalized all extrem ities, balance deficit noted, high fall risk when walking with walker) Skin: Normal Color, Warm/Dry Lymphatic: No Adenopathy Results Lab Laboratory Tests 11/28/18 10:14 11/29/18 06:42 Assessment/Plan Assessment/Plan Known lung mass -Pt has declined workup in the past and continues to decline workup. She does understand this maybe cancer vs infection Pneumonia -Augmenting -Change to liquid secondary to pt having difficulty swallowing pills. -Pt does not have an IV and is a difficult stick Acute right clavicle fracture Hx of PVD with stents CHF Debility -inpt rehab ALLI ERAZO DO Nov 29, 2018 14:07
--- NOTE | 2018-11-29 15:29 | Speech Therapy Daily Note ---
Speech Daily Progress Note Subjective Date Seen by Provider: Nov 29, 2018 Time Seen by Provider: 00:30 The patient was feeling better today. She was sitting up in her recliner eating breakfast when I entered her room. Objective The patient completed problem solving tasks related to her daily routine. Today focus was on eating her meal. She is very slow and appears to process slightly delayed. She required frequent repetition of directions for follow through. Assessment Assessment Current Status: Good Progress Communication Comprehension: 6 Expression: 6 Social Cognition Social Interaction: 7 Problem Solvin Memory: 5 Speech Short Term Goals Short Term Goals Short Term Goals Patient will demonstrate simple problem solving and memory with 80% accuracy when given minimal cues Comprehension: 6 Expression: 6 Social Interaction: 7 Problem Solvin Memory: 5 Speech Jail Goals Head Tennis Professional Goals Patient will improve cognitive-communication necessary for safety and daily living tasks with minimal assist Comprehension: 6 Expression: 6 Social Interaction: 7 Problem Solvin Memory: 5 Speech-Plan Patient/Family Goals Patient/Family Goals: The patient plans on returning home post rehab, however the team discussion with son's input wants to explore the assisted living option. Treatment Plan Speech Therapy Treatment Plan: Continue Plan of Care The patient is progressing well with skilled services. Treatment Duration: Dec 06, 2018 Frequency: 5 times per week Estimated Hrs Per Day: .5 hour per day Rehab Potential: Good Barriers to Learning: Mild cognitive deficits and decreased task of completion Pt/Family Agrees to Plan: Yes Safety Risks/Education Teaching Recipient: Patient Teaching Methods: Discussion Response to Teaching: Verbalize Understanding Education Topics Provided: Safety within her room Time Speech Therapy Time In: 08:30 Speech Therapy Time Out: 09:00 Total Billed Time: 30 Billed Treatment Time [address] Nov 29, 2018 15:29
[2018-11-29] MEDS: AMOX/CLAV 600 MG/5 ML (AUGMENTIN) 75 ML BTL PO SCH (16:56)
[2018-11-29] MEDS: GABAPENTIN 100 MG (NEURONTIN) CAP PO SCH (16:56)
[2018-11-29 17:29] VITALS: BP 109/67
[2018-11-29] MEDS: AMITRIPTYLINE 25 MG (ELAVIL) TAB PO SCH (21:32)
[2018-11-30 05:55] VITALS: BP 150/61
[2018-11-30] MEDS: RT-ALBUTEROL SULF 2.5 MG/3 ML PRE-MIX VIAL INH SCH ×3 (06:36→21:08)
[2018-11-30] MEDS: CYANOCOBALAMIN 1,000 MCG (VITAMIN B-12) TABLET PO SCH (06:48)
[2018-11-30] MEDS: MULTIVIT W/MINERALS TAB (THERAGRAN M) PO SCH (06:48)
[2018-11-30] MEDS: AMOX/CLAV 600 MG/5 ML (AUGMENTIN) 75 ML BTL PO SCH ×2 (06:48→16:11)
[2018-11-30] MEDS: MOVE FREE JOINT HEALTH PO SCH (08:08)
[2018-11-30] MEDS: SENNA W/DOCUSATE (SENOKOT S) TABLET PO SCH ×2 (08:09→20:19)
[2018-11-30] MEDS: SACUBITRIL/VALSARTAN 24/26 MG (ENTRESTO) TABLET PO SCH ×2 (08:09→20:15)
[2018-11-30] MEDS: SPIRONOLACTONE 25 MG (ALDACTONE) TAB PO SCH (08:09)
[2018-11-30] MEDS: LUTEIN 40 MG PO SCH (08:09)
[2018-11-30] MEDS: ASPIRIN 81 MG CHEW (CHILDREN'S ASA) PO SCH (08:09)
[2018-11-30 08:12] VITALS: BP 95/57
--- NOTE | 2018-11-30 09:22 | PM&R Progress Note ---
Subjective HPI/CC On Admission Date Seen by Provider: Nov 30, 2018 Time Seen by Provider: 09:00 Chief Complaint: Debility following fall with right clavicle fracture HPI: This is a 88 yoWF clinic pt of Dr. Dobbins and Dr. Marrero cardiology in [place] who has a PMH of known lung mass did not pursue that a few years ago who presents to inpatient rehab following an observation stay after a fall sustaining a right clavicle fracture. She lives at home alone shes been falling a lot and has become quite debilitated and the goal is to return home to independent living with ADL independence and ambulatory status independent. 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 She does recall meeting me. At this current time pt is very well controlled is aware of the additional lung mass that she has no intention of treating and Dr. Hoskins updated her on that fact and overall she's ready to get started to recover and ultimately return back to home. Subjective/Events-last exam board worker will talk to he about assisted living since that is what I am recommending. Overall much improved on Augmentin liquid twice a day. BP a bit labile sometimes low sometimes high. Participating in all therapy. Cognition is much improved. Very frail and considering the presumed lung cancer, I predict a very slow decline just in her overall status in the next several months and years. Review of Systems General: Fatigue Musculoskeletal: arm pain Neurological: Weakness Focused Exam Lactate Level 11/28/18 10:14: Lactic Acid Level 0.81 Objective Exam Vital Signs Vital Signs Date Time Temp Pulse Resp B/P (MAP) Pulse Ox O2 Delivery O2 Flow Rate FiO2 11/30/18 16:32 97.0 108 16 145/78 (100) 95 Room Air 11/28/18 08:31 2.00 Capillary Refill : Less Than 3 Seconds General Appearance: No Apparent Distress, WD/WN, Chronically ill HEENT: PERRL/EOMI, Normal ENT Inspection Neck: Full Range of Motion, Normal Inspection, Non Tender, Supple, Limited Range of Motion (to the right) Respiratory: No Accessory Muscle Use, No Respiratory Distress, Crackles (bases bilateral), Decreased Breath Sounds Cardiovascular: Regular Rate, Rhythm, No Edema, No Gallop, No JVD, No Murmur Gastrointestinal: Normal Bowel Sounds, Soft Back: Normal Inspection, No CVA Tenderness, No Vertebral Tenderness Extremity: Normal Capillary Refill, Normal Inspection, Normal Range of Motion (except right arm), Non Tender, No Calf Tenderness Neurologic/Psychiatric: Alert, Oriented x3, No Motor/Sensory Deficits, Normal Mood/Affect, flexible babysitter II-XII Norm as Tested Skin: Normal Color, Warm/Dry Lymphatic: No Adenopathy Results/Procedures Lab Patient resulted labs reviewed. FIM Transfers Therapy Code Descriptions/Definitions Functional [place] Measure: 0=Not Assessed/NA 4=Minimal Assistance 1=Total Assistance 5=Supervision or Setup 2=Maximal Assistance 6=Modified [place] 3=Moderate Assistance 7=Complete [place] Therapy Quality Codes: 6 Independent with activity with or without an assistive device 5 Patient requires set up or clean up by helper. Patient completes activity by themselves 4 Supervision or touching assist (CGA). [place] provide cues , steadying assist 3 The helper provides less than half the effort to complete the activity 2 The helper provides more than half the effort to complete the activity 1 Dependent. The helper does all the effort to complete an activity 7 Patient refused to complete or attempt activity 9 The patient did not perform the activity before the current illness or injury 88 Not attempted due to Medical conditions or safety concerns Transfers (B, C, W/C) (FIM): 4 (INCREASED TIMING TO COMPLETE TASK SECODNARY TO SLOW MOVEMENTS PT required MIN A to perform sit to stand) Scootin Rollin Roll Left to Right (QC): 4 Supine to/from Sit: 3 Sit to/from Stand: 4 Sit to Lying (QC): 3 Sit to Stand (QC): 4 Chair/Qza-bd-Jewvz Xfer(QC): 4 Bed to/from Chair: 5 Car Transfer (QC): 3 (assist to get her legs into the car) Gait Training Does the Patient Walk?: Yes Gait (FIM): 4 Distance (FIM): 3=150 ft Distance: 150' Walk 10 feet (QC): 5 Walk 50 ft with 2 Turns(QC): 4 Walk 150 ft (QC): 4 Walking 10ft/uneven surface-QC: 3 Gait Level of Assist: 4 Gait Persons Needed: 1 Gait Assistive Device: Walker Platform Wheelchair Training Does the Pt Use a Wheelchair?: No Stair Training Stair Training: Handrails/: uses walker Stairs (FIM): 2 #of Steps: 4 1 Step (curb) (QC): 3 (mod assist to step up) 4 Steps (QC): 88 12 Steps (QC): 88 Stairs: Pattern: Step to Level of Assist: 4 Balance Picking up an Object (QC): 88 Mental Status/Objective Comprehension: 6 Expression: 6 Social Interaction: 7 Problem Solvin Memory: 5 ADL-Treatment Feedin (increase timing. slow movement with Donte UE ) Eating (QC): 6 Groomin (standind at sink. increased timing secodanry slow movement with donte UE ) Oral Hygiene (QC): 6 Bathin (CGA while stanidng. noted pt has fear of falling. only stood to wash buttock. ) Bathing Location: L Arm, R Arm, L Upper Leg, R Upper Leg, L Lower Leg (including foot), R Lower Leg (including foot), Chest, Abdomen, Buttocks, Perineal Area Shower/Bathe Self (QC): 4 Upper Extremity Dressin (INCREASED TIMING to complete task) Upper Body Dressing (QC): 4 Lower Extremity Dressin (use of AE. INCREASED TIMING TO COMPLETE TASK. REQUIRED CUING TO COMPLETE TASK WITHOUT ASSIST. ) Lower Body Dressing (QC): 4 On/Off Footwear (QC): 4 Toiletin (INCREASED TIMING TO COMPLETE TASK SECODNARY TO SLOW MOVEMENTS ) Toileting Hygiene (QC): 4 Toilet/Commode Transfer: 4 (INCREASED TIMING TO COMPLETE TASK SECODNARY TO SLOW MOVEMENTS ) Toilet Transfer (QC): 4 Shower: 4 (INCREASED TIMING TO COMPLETE TASK SECODNARY TO SLOW MOVEMENTS MIN A for sit to stand. ) 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 but does not wish to have work-up or treatment CAD with stents in place PVD with stents in place Lives alone CHF UTI's Crackles RLL acute-improved with IS use Plan: Consult pulmonology Stop atorvastatin d/t liver enzymes Stop acetaminophen d/t liver enzymes Repeat echo and view results Use tramadol for pain to prevent delirium Inpatient rehab protocol Ambulation with walker for fall prevention Regain independence with ADLs with right clavicle fracture and arm in sling Use platform to help navigate ambulation due to clavicle fracture Right arm sling prn to help with the pain IS Control pain (1) Fall on same level (2) Congestive heart failure (3) B12 deficiency (4) Recurrent UTI (5) Hyperlipemia (6) PVD (peripheral vascular disease) (7) CAD (coronary artery disease) (8) Coronary arteriosclerosis (9) Clavicle fracture (10) Hypertension (11) Lung mass (12) Peripheral vascular disease Reviewed assessment and plan Pain control Monitor labs closely Abx empiric for bronchial source nut UTI likely source also Lung cancer is presumed Needs AL (1) Fall on same level Status: Acute (2) Congestive heart failure Status: Acute (3) B12 deficiency (4) Recurrent UTI (5) Hyperlipemia (6) PVD (peripheral vascular disease) (7) CAD (coronary artery disease) (8) Coronary arteriosclerosis Status: Chronic (9) Clavicle fracture (10) Hypertension Status: Acute (11) Lung mass (12) Peripheral vascular disease Status: Chronic COLLEEN OVIEDO DO Nov 30, 2018 09:21
--- NOTE | 2018-11-30 09:32 | Speech Therapy Daily Note ---
Speech Daily Progress Note Subjective Date Seen by Provider: Nov 30, 2018 Time Seen by Provider: 00:30 The patient states she is feeling much better today. She was noted to have eaten more of her breakfast today. Objective The patient completed a memory activity of word chaining at 80% with moderate verbal cues and/or repetitions. She demonstrated following directions as provided with initial repetition for each step x5 with ability to follow directions. Assessment Assessment Current Status: Good Progress Treatment Plan Continue Plan of Care Communication Comprehension: 6 Expression: 6 Social Cognition Social Interaction: 7 Problem Solvin Memory: 5 Speech Short Term Goals Short Term Goals Short Term Goals Patient will demonstrate simple problem solving and memory with 80% accuracy when given minimal cues Comprehension: 6 Expression: 6 Social Interaction: 7 Problem Solvin Memory: 5 Speech Woodworker Helper Goals Usp Goals Patient will improve cognitive-communication necessary for safety and daily living tasks with minimal assist Comprehension: 6 Expression: 6 Social Interaction: 7 Problem Solvin Memory: 5 Speech-Plan Patient/Family Goals Patient/Family Goals: The patient is tentatively scheduled to go home or to an assisted living facility on 12/06/18. Treatment Plan Speech Therapy Treatment Plan: Continue Plan of Care The patient has made good progress as she has begun to feel better. Treatment Duration: Dec 06, 2018 Frequency: 5 times per week Estimated Hrs Per Day: .5 hour per day Rehab Potential: Good Barriers to Learning: The patient has decreased ability for processing information at times. Pt/Family Agrees to Plan: Yes Safety Risks/Education Teaching Recipient: Patient Teaching Methods: Demonstration, Discussion Response to Teaching: Verbalize Understanding, Return Demonstration Education Topics Provided: Continued safety and communication of her wants/needs. Time Speech Therapy Time In: 08:30 Speech Therapy Time Out: 09:00 Total Billed Time: 30 Billed Treatment Time 1, KAYLEN Bowden Nov 30, 2018 09:32
[2018-11-30] MEDS: ENOXAPARIN 40 MG/0.4 ML (LOVENOX) SYR SC SCH (10:22)
[2018-11-30] MEDS: meTOproloL SUCCINATE 50 MG (TOPROL XL) TAB PO SCH (10:24)
[2018-11-30 10:25] VITALS: BP 96/60
--- NOTE | 2018-11-30 10:41 | Progress Note - Hospitalist ---
DENISEANDREI, 11/30/18 1041: Progress Note Subjective/Events - Last Exam: Pt was pleasant this morning Was eating oatmeal for breakfast Early satiety but no different than before Bowels are not moving well Drinking prune juice to assist Offered Colace if needed Denied n/v, SOB Chest pain has resolved but still has right clavicle pain Ambulating well Echo: EF 35-40%, grade 1 diastolic dysfunction, akinesis of apical myocardium, mild mitral regurgitation Objective: Vitals: stable except BP 150/61 Gen: alert and oriented, pleasant Cardiac: RRR, no murmurs, no bruits Respiratory: few crackles noted Assessment: Recent fall with history of multiple falls Acute right clavicle fracture maintained in sling Hypertension 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 but does not wish to have work-up or treatment CAD with stents in place PVD with stents in place Lives alone CHF UTI's Crackles RLL acute - improved with IS use Plan: Discuss assisted living facility for placement after discharge Consult pulmonology Stop atorvastatin d/t liver enzymes Stop acetaminophen d/t liver enzymes Use tramadol for pain to prevent delirium Inpatient rehab protocol Ambulation with walker for fall prevention Regain independence with ADLs with right clavicle fracture and arm in sling Use platform to help navigate ambulation due to clavicle fracture Right arm sling prn to help with pain IS Control pain Signed: Andrei Bueno OMS-III, medical student TASHIA OVIEDO DO 11/30/187: Supervisory-Addendum Brief Verification & Attestation Time: Verification & Attestat.: 09:00 Participated in pt care: history, MDM, physical Personally performed: exam, history, MDM, supervision of care Care discussed with: Medical Student Procedures: n/a Results interpretation: Verified all documentation Verification and Attestation of Medical Student E/M Service A medical student performed and documented this service in my presence. I reviewed and verified all information documented by the medical student and made modifications to such information, when appropriate. I personally performed the physical exam and medical decision making. Tashia Oviedo, Nov 30, 2018,20:46 ANDREI BUENO, Nov 30, 2018 10:41 TASHIA OVIEDO DO Nov 30, 2018 20:47
--- NOTE | 2018-11-30 10:50 | NUR ---
Pastoral Care Visit.
--- NOTE | 2018-11-30 10:59 | Occupational Ther Daily Note ---
OT Current Status-Daily Note Subjective pt sitting in chair upon OT Arrival. pt agreed to OT TX session with focus on increasing independence with ADLs and functional transfers. Mental Status/Objective Therapy Code Descriptions/Definitions Functional Johnson Measure: 0=Not Assessed/NA 4=Minimal Assistance 1=Total Assistance 5=Supervision or Setup 2=Maximal Assistance 6=Modified Johnson 3=Moderate Assistance 7=Complete Johnson ADL-Treatment Therapy Code Descriptions/Definitions Functional Johnson Measure: 0=Not Assessed/NA 4=Minimal Assistance 1=Total Assistance 5=Supervision or Setup 2=Maximal Assistance 6=Modified Johnson 3=Moderate Assistance 7=Complete Johnson Therapy Quality Codes: 6 Independent with activity with or without an assistive device 5 Patient requires set up or clean up by helper. Patient completes activity by themselves 4 Supervision or touching assist (CGA). [place] provide cues , steadying assist 3 The helper provides less than half the effort to complete the activity 2 The helper provides more than half the effort to complete the activity 1 Dependent. The helper does all the effort to complete an activity 7 Patient refused to complete or attempt activity 9 The patient did not perform the activity before the current illness or injury 88 Not attempted due to Medical conditions or safety concerns Eating (FIM): 6 (increase timing secodanry to slow movement pt education on using RUE duing eating. pt stated she used left hand to eat all of breakfast. pt education on using RUE to complete tasks. ) Upper Body (FIM): 5 (increased timing to perform task with MIN VC for proper technuqiues. button up shirt ) Lower Body Dressing (FIM): 5 (underpants, pants, tre socks. increase timing to perfom all task with use of hvac services professional, sock aid, and dressing stick. pt required cuing for skilled techniques. ) Transfers (B, C, W/C) (FIM): 3 (pt required MOD A to perform sit to stand. ) pt required MOD A to perform sit to stand noted slight retropulsive position post standing. pt then ambulated to closet approx 15 ft with use of platform walker. pt stated she would like to trail regular RW tomorrow. PT will be notified. at closet pt gather clothing. and perform UB /LB dressing sitting EOB. (please refer to FIM scores). Other Treatment post ADLS pt participate in UE ROM ex to increase ROM for daily activities. pt perform AROM 5X3 tre shoulder shrugs, PROM 5X2 shoulder flex to 40 degrees tre., [id number] elbow flex X ext. pt sitting in chair post OT session, call light within reach, all needs met. Education OT Patient Education: Disease process, Energy conservation, Progress toward Goal/Update tx plan, Purpose of tx/functional activities, Safety issues, Transfer techniques, Use of adapted equipment Teaching Recipient: Patient Teaching Methods: Demonstration, Discussion Response to Teaching: Verbalize Understanding, Return Demonstration OT Short Term Goals Short Term Goals Time Frame: Dec 06, 2018 Eating(FIM): 6 Grooming(FIM): 5 Bathing(FIM): 4 Bathing Location: L Arm, R Arm, L Upper Leg, R Upper Leg, L Lower Leg (including foot), R Lower Leg (including foot), Chest, Abdomen, Buttocks, Perineal Area Upper Body Dressing(FIM): 4 Lower Body Dressing(FIM): 4 Toileting(FIM): 4 Transfers (B,C,W/C) (FIM): 4 Toilet/Commode Transfer(FIM): 4 Shower Transfer(FIM): 4 Comprehension(FIM): 6 Expression(FIM): 6 Social Interaction(FIM): 7 Problem Solving(FIM): 5 Memory(FIM): 5 Additional Short Term Goals: 1-Demonstrate ADL Tasks, 2-Verbalize Understanding, 3-ImproveStrength/Desean 1=Demonstrate adherence to instructed precautions during ADL tasks. 2=Patient will verbalize/demonstrate understanding of assistive devices/modifications for ADL. 3=Patient will improve strength/tolerance for activity to enable patient to perform ADL's. OT Fci Goals Fci Goals Time Frame: Dec 20, 2018 Eating (FIM): 7 Eating (QC): 6 Groomin Oral Hygiene (QC): 6 Bathing(FIM): 6 Bathing Location: L Arm, R Arm, L Upper Leg, R Upper Leg, L Lower Leg (including foot), R Lower Leg (including foot), Chest, Abdomen, Buttocks, Perineal Area Shower/Bathe Self (QC): 6 Upper Body Dressing(FIM): 6 Upper Body Dressing (QC): 6 Lower Body Dressing(FIM): 6 Lower Body Dressing (QC): 6 On/Off Footwear (QC): 6 Toileting(FIM): 6 Toileting Hygiene (QC): 6 Transfers (B,C,W/C) (FIM): 6 Toilet/Commode Transfer(FIM): 6 Toilet/Commode Transfer (QC): 6 Shower Transfer(FIM): 6 Comprehension(FIM): 6 Expression (FIM): 6 Social Interaction(FIM): 7 Problem Solving(FIM): 5 Memory(FIM): 5 Additional Goals: 1-Demonstrate ADL Tasks, 2-Verbalize Understanding, 3- ImproveStrength/Desean 1=Demonstrate adherence to instructed precautions during ADL tasks. 2=Patient will verbalize/demonstrate understanding of assistive devices/modifications for ADL. 3=Patient will improve strength/tolerance for activity to enable patient to perform ADL's. OT Education/Plan Problem List/Assessment Assessment: Decreased Activ Tolerance, Decreased UE Strength, Impaired Bed Mobility, Impaired Funct Balance, Impaired I ADL's, Impaired Self-Care Skills, Restricted Funct UE ROM pt presents with functional limitations affecting areas of ADLS and functional transfers with the above mention deficits. pt would benefit from skilled OT services to increase independence with ADL and functional transfers. Discharge Recommendations Plan/Recommendations: Continue POC Barriers to Progress pain Treatment Plan/Plan of Care Treatment,Training & Education: Yes Patient would benefit from OT for education, treatment and training to promote independence in ADL's, mobility, safety and/or upper extremity function for ADL's. Plan of Care: ADL Retraining, Caregiver Training, Functional Mobility, Group Exercise/Act as Ind, UE Funct Exercise/Act Treatment Duration: Dec 20, 2018 Frequency: At least 5 of 7 days/Wk (IRF) Estimated Hrs Per Day: 1 hour per day (60-90 minutes per day) Agreement: Yes Rehab Potential: Good Time/GCodes Start Time: 10:15 Stop Time: 11:30 Billed Treatment Time ADL 4 units, 60 minutes EX 1 units, 15 minutes ANTONETTE GUEVARA OT Nov 30, 2018 10:59
--- NOTE | 2018-11-30 11:15 | NUR ---
as W met with patient to review team conference summary. As patient is progressing; however, had a setback earlier in the week due to chest pains and extreme fatigue, recent progress has been slow to advance. Patient continues to complain of pain and right upper extremity, is transferring, ambulating 150 feet with platform walker, and completing ADLs all with contact-guard assistance, team has recommended patient's progress be discussed on Tuesday, 12/04 to determine appropriate discharge date. Team has also recommended RESIDENTIAL placement for patient, as she has no local support and continues to exhibit an increase in fatigue and decreased endurance. FIELD TEST ENGINEER reviewed this recommendation with patient; however, she did not seem overly interested at this time. FIELD TEST ENGINEER did provide patient with local provider list for further consideration. Team will follow up with patient on for further planning.
--- NOTE | 2018-11-30 13:02 | Cardiology Progress Note ---
Subjective Date Seen by Provider: Nov 30, 2018 Time Seen by Provider: 12:59 Subjective/Events-last exam Patient is sitting up in chair, denies any further episode of chest pain, denies any dyspnea. Noted to be hypotensive this morning, Toprol XL was held. Focused Exam Lactate Level 11/28/18 10:14: Lactic Acid Level 0.81 Objective-Cardiology Exam Last Set of Vital Signs Vital Signs 11/28/18 11/30/18 11/30/18 11/30/18 11/30/18 08:31 05:55 08:12 09:01 10:25 Temp 97.8 Pulse 102 Resp 18 B/P (MAP) 96/60 (72) Pulse Ox 96 O2 Delivery Room Air O2 Flow Rate 2.00 Capillary Refill : Less Than 3 Seconds I&O Intake and Output 11/30/18 00:00 Intake Total 525 ml Balance 525 ml Intake Oral 525 ml # Voids 6 # Bowel Movements 2 General: Alert, Oriented X3, Cooperative HEENT: Atraumatic, PERRLA Neck: Supple, No JVD, No Thyromegaly Lungs: Clear to Auscultation, Normal Air Movement Heart: Regular Rate, Normal S1, Normal S2, No Murmurs Abdomen: Normal Bowel Sounds, Soft, No Tenderness, No Hepatosplenomegaly, No Masses Extremities: No Clubbing, No Cyanosis, No Edema, Normal Pulses, No Tendernes s/Swelling Skin: No Rashes, No Breakdown, No Significant Lesion Neuro: Normal Gait, Normal Speech, Strength at 5/5 X4 Ext, Normal Tone, Sensation Intact Psych/Mental Status: Mental Status NL, Mood NL A/P-Cardiology Admission Diagnosis Chest pain CAD CHF HTN Assessment/Plan Chest pain, non specific etiology- resolved. EKG revealed SR with no acute ST changes, troponin negative. Continue to monitor. CAD- reported history of stent placement in the past. Follows with Dr. Marrero as outpatient. CHF- 2D Echo done 2018 revealed EF 30-35%. Maintained on Entresto, beta fadi. Continue on current medication and continue to monitor. I will reevaluate 2D Echo Labile HTN- Toprol XL held this morning secondary to hypotension. Discussed staying hydrated and using LAILA hose. Lung mass- patient reports diagnosed 40 years ago and has refused treatment. Elevated LFT's- lipitor d/c'd. underwent Liver US yesterday which was WNL. History of frequent falls at home Right clavicle fracture secondary to fall. Clinical Quality Measures DVT/VTE Risk/Contraindication: Risk Factor Score Per Nursin RFS Level Per Nursing on Admit: 4+=Very High TARIK NICOLE Nov 30, 2018 13:01
--- NOTE | 2018-11-30 13:18 | Physical Therapy Daily Note ---
PT Daily Note-Current Subjective Pt sitting in chair in room upon arrival. Pt agrees to PT. Pain Numeric Pain Scale: 7 Location: Right Location Body Site: Shoulder Pain Description: Ache, Tightness Mental Status Patient Orientation: Person, Place, Situation Transfers Therapy Code Descriptions/Definitions Functional Harper Measure: 0=Not Assessed/NA 4=Minimal Assistance 1=Total Assistance 5=Supervision or Setup 2=Maximal Assistance 6=Modified Harper 3=Moderate Assistance 7=Complete Harper Therapy Quality Codes: 6 Independent with activity with or without an assistive device 5 Patient requires set up or clean up by helper. Patient completes activity by themselves 4 Supervision or touching assist (CGA). [place] provide cues , steadying assist 3 The helper provides less than half the effort to complete the activity 2 The helper provides more than half the effort to complete the activity 1 Dependent. The helper does all the effort to complete an activity 7 Patient refused to complete or attempt activity 9 The patient did not perform the activity before the current illness or injury 88 Not attempted due to Medical conditions or safety concerns Scootin Sit to/from Stand: 4 Sit to Stand (QC): 4 Weight Bearing Full Weight Bearing Full Weight Bearing sling right UE; Physician reports she may use her right UE for use in a platform walker. Gait Training Does the Patient Walk?: Yes Gait (FIM): 4 Distance (FIM): 3=150 ft Distance: 150' Walk 10 feet (QC): 4 Walk 50 ft with 2 Turns(QC): 4 Walk 150 ft (QC): 4 Gait Level of Assist: 4 Gait Persons Needed: 1 Gait Assistive Device: Walker Platform Wheelchair Training Does the Pt Use a Wheelchair?: No Exercises Standing: Hip Abduction, Heel/toe raises, Marching, Mini squats NuStep Minutes: 10 NuStep Workload: 5 Treatments Pt transfers from chair to standing and ambulated in hallway to Therapy Gym. Pt completes Standing Ex at //bars with short RB. Pt completes sit to stand transfer practice. This is followed by Seated Ex in chair. Pt uses NuStep for 10m at WL 5. Pt returns to room at end of tx to rest in chair with feet elevated on chair and pillow. Pt has all needs met, call light in hand. Assessment Current Status: Good Progress Pt fatigues and needs RBs to recover. PT Short Term Goals Short Term Goals Time Frame: Nov 29, 2018 Transfers (B,C,W/C) (FIM): 4 Gait (FIM): 4 PT Construction Electrician Goals Construction Electrician Goals PT Construction Electrician Goals Time Frame: Dec 14, 2018 Transfers (B,C,W/C) (FIM): 6 Sit to Lying (QC): 6 Lying-Sitting on Side/Bed(QC): 6 Sit to Stand (QC): 6 Rollin Roll Left to Right (QC): 6 Chair/Cjz-qa-Pmcds Xfer(QC): 6 Car Transfer (QC): 6 Does the Patient Walk: Yes Gait (FIM): 6 Gait distance (FIM): 3=150 ft Walk 10 feet (QC): 6 Walk 10ft-Uneven Surface(QC): 6 Walk 50ft with 2 Turns (QC): 6 Walk 150 ft (QC): 6 Gait Assistive Device: FWW Stairs (FIM): 2 # of Steps: 4 1 Step (curb) (QC): 6 4 Steps (QC): 6 12 Steps (QC): 88 Picking up an Object (QC): 88 PT Plan Problem List Problem List: Activity Tolerance, Functional Strength, Gait, Transfer Treatment/Plan Treatment Plan: Continue Plan of Care Treatment Plan: Bed Mobility, Education, Functional Activity Desean, Functional Strength, Group Therapy, Gait, Safety, Therapeutic Exercise, Transfers Treatment Duration: Dec 14, 2018 Frequency: At least 5 of 7 days/Wk (IRF) Estimated Hrs Per Day: 1.5 hours per day Patient and/or Family Agrees t: Yes Safety Risks/Education Patient Education: Gait Training, Transfer Techniques, Correct Positioning, Safety Issues Teaching Recipient: Patient Teaching Methods: Discussion Response to Teaching: Verbalize Understanding Time/GCodes Time In: 900 Time Out: 1015 Total Billed Treatment Time: 75 Total Billed Treatment 1, GT (20m), EX x2 (30m) & FA x2 (25m) G Codes Necessary: IRENE Pagan PLANT CONTROLLER Nov 30, 2018 13:18
--- NOTE | 2018-11-30 13:41 | Cardiology Progress Note ---
Subjective Date Seen by Provider: Nov 30, 2018 Time Seen by Provider: 13:39 Subjective/Events-last exam Patient is sitting in a chair, comfortable, denied any chest pain or shortness of breath, still having pain at the right clavicle. Review of Systems General: No Chills, No Night Sweats, No Fatigue, No Malaise, No Appetite, No Other HEENT: No Head Aches, No Visual Changes, No Eye Pain, No Ear Pain, No Dysphasia, No Sinus Congestion, No Post Nasal Drip, No Sore Throat, No Other Pulmonary: No Dyspnea, No Cough, No Pleuritic Chest Pain, No Other Cardiovascular: Chest Pain; No: Palpitations, Orthopnea, Paroxysmal Noc. Dyspnea, Edema, Lt Headedness, Other Focused Exam Lactate Level 11/28/18 10:14: Lactic Acid Level 0.81 Objective-Cardiology Exam Last Set of Vital Signs Vital Signs 11/28/18 11/30/18 11/30/18 11/30/18 11/30/18 08:31 05:55 08:12 09:01 10:25 Temp 97.8 Pulse 102 Resp 18 B/P (MAP) 96/60 (72) Pulse Ox 96 O2 Delivery Room Air O2 Flow Rate 2.00 Capillary Refill : Less Than 3 Seconds I&O Intake and Output 11/30/18 00:00 Intake Total 525 ml Balance 525 ml Intake Oral 525 ml # Voids 6 # Bowel Movements 2 General: Alert, Oriented X3, Cooperative HEENT: Atraumatic, PERRLA Neck: Supple, No JVD, No Thyromegaly Lungs: Clear to Auscultation, Normal Air Movement Heart: Regular Rate, Normal S1, Normal S2, No Murmurs Abdomen: Normal Bowel Sounds, Soft, No Tenderness, No Hepatosplenomegaly, No Masses Extremities: No Clubbing, No Cyanosis, No Edema, Normal Pulses, No Tenderness/Swelling Skin: No Rashes, No Breakdown, No Significant Lesion Neuro: Normal Gait, Normal Speech, Strength at 5/5 X4 Ext, Normal Tone, Sensation Intact Psych/Mental Status: Mental Status NL, Mood NL A/P-Cardiology Admission Diagnosis Chest pain CAD CHF HTN Assessment/Plan Chest pain, non specific etiology- resolved. EKG revealed SR with no acute ST changes, troponin negative. Continue to monitor. CAD- reported history of stent placement in the past. Follows with Dr. Marrero as outpatient. CHF- 2D Echo done 2018 revealed EF 30-35%. Maintained on Entresto, beta fadi. Continue on current medication and continue to monitor. Labile HTN, still borderline hypotensive, I'll decrease Toprol to 25 mg daily and monitor tolerance and response Lung mass- patient reports diagnosed 40 years ago and has refused treatment. Elevated LFT's- lipitor d/c'd. underwent Liver US yesterday which was WNL. History of frequent falls at home Right clavicle fracture secondary to fall. Clinical Quality Measures DVT/VTE Risk/Contraindication: Risk Factor Score Per Nursin RFS Level Per Nursing on Admit: 4+=Very High NICOLE DE LOS SANTOS MD Nov 30, 2018 13:41
--- NOTE | 2018-11-30 15:12 | Pulmonary Progress Note ---
Subjective Time Seen by a Provider: 15:11 Subjective/Events-last exam No complications noted. Sepsis Event Evaluation Height, Weight, BMI Height: 5'7.00" Weight: 150lbs. 12.6oz. [id number]; 21.5 BMI Method:Stated Focused Exam Lactate Level 11/28/18 10:14: Lactic Acid Level 0.81 Exam Exam Vital Signs Date Time Temp Pulse Resp B/P (MAP) Pulse Ox O2 Delivery O2 Flow Rate FiO2 11/30/18 10:25 102 96/60 (72) 11/30/18 09:01 Room Air 11/30/18 08:12 109 18 95/57 (70) 96 Room Air 11/30/18 06:36 93 Room Air 11/30/18 05:55 97.8 97 20 150/61 (90) 94 Room Air 11/29/18 21:12 91 Room Air 11/29/18 20:10 Room Air 11/29/18 17:29 98.4 61 18 109/67 (81) 99 Room Air I & O 11/30/18 07:00 Intake Total 875 ml Balance 875 ml Height & Weight Height: 5'7.00" Weight: 150lbs. 12.6oz. 68.492707ow; 21.5 BMI Method:Stated General Appearance: No Apparent Distress, WD/WN, Chronically ill HEENT: PERRL/EOMI, Normal ENT Inspection Neck: Full Range of Motion, Normal Inspection, Non Tender, Supple, Limited Range of Motion Respiratory: No Accessory Muscle Use, No Respiratory Distress, Crackles, Decreased Breath Sounds Cardiovascular: Regular Rate, Rhythm, No Edema, No Gallop, No JVD, No Murmur Extremity: Normal Capillary Refill, Normal Inspection, Normal Range of Motion, Non Tender, No Calf Tenderness Neurologic/Psychiatric: Alert, Oriented x3, No Motor/Sensory Deficits, Normal Mood/Affect, stave jointer II-XII Norm as Tested Skin: Normal Color, Warm/Dry Lymphatic: No Adenopathy Results Lab Laboratory Tests 11/29/18 06:42 Assessment/Plan Assessment/Plan Known lung mass -Pt has declined workup in the past and continues to decline workup. She does understand this maybe cancer vs infection Pneumonia -Augmentin Acute right clavicle fracture Hx of PVD with stents CHF Debility -inpt rehab ALLI ERAZO DO Nov 30, 2018 15:12
[2018-11-30] MEDS: GABAPENTIN 100 MG (NEURONTIN) CAP PO SCH (16:10)
[2018-11-30 16:32] VITALS: BP 145/78
[2018-11-30] MEDS: AMITRIPTYLINE 25 MG (ELAVIL) TAB PO SCH (20:15)
[2018-12-01 05:15] VITALS: BP 133/57
[2018-12-01] MEDS: MULTIVIT W/MINERALS TAB (THERAGRAN M) PO SCH (06:14)
[2018-12-01] MEDS: CYANOCOBALAMIN 1,000 MCG (VITAMIN B-12) TABLET PO SCH (06:14)
[2018-12-01] MEDS: AMOX/CLAV 600 MG/5 ML (AUGMENTIN) 75 ML BTL PO SCH ×2 (06:14→18:01)
[2018-12-01 06:30] LABS: BASOPHILS # (AUTO) 0.1 10^3/uL (0.0-0.1); BASOPHILS % (AUTO) 1 % (0-10); EOSINOPHILS # (AUTO) 0.2 10^3/uL (0.0-0.3); EOSINOPHILS % (AUTO) 3 % (0-10); HEMATOCRIT 33 % (35-52); HEMOGLOBIN 10.2 G/DL (11.5-16.0); LYMPHOCYTES # (AUTO) 0.2 X 10^3 (1.0-4.0); LYMPHOCYTES % (AUTO) 3 % (12-44); MEAN CORPUSCULAR HEMOGLOBIN 29 PG (25-34); MEAN CORPUSCULAR HGB CONC 31 G/DL (32-36); MEAN CORPUSCULAR VOLUME 92 FL (80-99); MEAN PLATELET VOLUME 9.9 FL (7.4-10.4); MONOCYTES # (AUTO) 0.8 X 10^3 (0.0-1.0); MONOCYTES % (AUTO) 9 % (0-12); NEUTROPHILS # (AUTO) 7.4 X 10^3 (1.8-7.8); NEUTROPHILS % (AUTO) 85 % (42-75); PLATELET COUNT 391 10^3/uL (130-400); RED CELL DISTRIBUTION WIDTH 12.9 % (10.0-14.5); WHITE BLOOD COUNT 8.7 10^3/uL (4.3-11.0)
[2018-12-01 06:55] LABS: ALANINE AMINOTRANSFERASE 95 U/L (0-55); ALKALINE PHOSPHATASE 177 U/L (40-136); BILIRUBIN,TOTAL 0.6 MG/DL (0.1-1.0); BUN/CREATININE RATIO 27; CALCIUM 9.2 MG/DL (8.5-10.1); CARBON DIOXIDE 20 MMOL/L (21-32); CHLORIDE 106 MMOL/L (98-107); CREATININE SERUM 0.88 MG/DL (0.60-1.30); GFR ESTIMATED > 60; GLUCOSE 93 MG/DL (70-105); POTASSIUM 5.3 MMOL/L (3.6-5.0); SODIUM 135 MMOL/L (135-145); TOTAL PROTEIN 5.5 GM/DL (6.4-8.2)
[2018-12-01] MEDS: RT-ALBUTEROL SULF 2.5 MG/3 ML PRE-MIX VIAL INH SCH ×3 (07:21→19:58)
--- NOTE | 2018-12-01 07:28 | NUR ---
PATIENT IS SITTING IN THE CHAIR DURING ALBUTEROL SVN BREATHING TX; NO S/S OF DISTRESS NOTED AT THIS TIME.
--- NOTE | 2018-12-01 08:17 | Progress Note - Hospitalist ---
SHAE BUENO, 12/01/18 0817: Progress Note Date: 12/01/2018 Time: 0725 Subjective/Events - Last Exam: Pleasant this morning Bowels did not move yesterday but hope they will today Denies n/v, SOB, chest pain Had an awful night last night Heels were burning and could not sleep Feels better now PT/OT have her moving well Breakfast came after rounds. 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 but does not wish to have work-up or treatment CAD with stents in place PVD with stents in place Lives alone CHF UTI's Crackles RLL acute - improved with IS use Plan: Discuss assisted living facility for placement after discharge Consult pulmonology Stop atorvastatin d/t liver enzymes Stop acetaminophen d/t liver enzymes Use tramadol for pain to prevent delirium Inpatient rehab protocol Ambulation with walker for fall prevention Regain independence with ADLs with right clavicle fracture and arm in sling Use platform to help navigate ambulation due to clavicle fracture Right arm sling prn to help with pain IS Control pain Signed: Shae Bueno OMS-III, medical student TASHIA OVIEDO DO 12/01/18 1723: Supervisory-Addendum Brief Verification & Attestation Time: Verification & Attestat.: 09:00 Participated in pt care: history, MDM, physical Personally performed: exam, history, MDM, supervision of care Care discussed with: Medical Student Procedures: n/a Results interpretation: Verified all documentation Verification and Attestation of Medical Student E/M Service A medical student performed and documented this service in my presence. I reviewed and verified all information documented by the medical student and made modifications to such information, when appropriate. I personally performed the physical exam and medical decision making. Tashia Oviedo, Dec 01, 2018,17:23 SHAE BUENO, Dec 01, 2018 08:17 TASHIA OVIEDO DO Dec 01, 2018 17:23
[2018-12-01 09:22] VITALS: BP 92/60
[2018-12-01] MEDS: ASPIRIN 81 MG CHEW (CHILDREN'S ASA) PO SCH (09:23)
[2018-12-01] MEDS: SPIRONOLACTONE 25 MG (ALDACTONE) TAB PO SCH (09:23)
[2018-12-01] MEDS: SENNA W/DOCUSATE (SENOKOT S) TABLET PO SCH ×2 (09:23→20:59)
[2018-12-01] MEDS: ENOXAPARIN 40 MG/0.4 ML (LOVENOX) SYR SC SCH (09:23)
[2018-12-01] MEDS: LUTEIN 40 MG PO SCH (09:24)
[2018-12-01] MEDS: MOVE FREE JOINT HEALTH PO SCH (09:24)
--- NOTE | 2018-12-01 09:27 | PM&R Progress Note ---
Subjective HPI/CC On Admission Date Seen by Provider: Dec 01, 2018 Time Seen by Provider: 09:15 Chief Complaint: Debility following fall with right clavicle fracture HPI: This is a 88 yoWF clinic pt of Dr. Dobbins and Dr. Marrero cardiology in [place] who has a PMH of known lung mass did not pursue that a few years ago who presents to inpatient rehab following an observation stay after a fall sustaining a right clavicle fracture. She lives at home alone shes been falling a lot and has become quite debilitated and the goal is to return home to independent living with ADL independence and ambulatory status independent. 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 She does recall meeting me. At this current time pt is very well controlled is aware of the additional lung mass that she has no intention of treating and Dr. Hoskins updated her on that fact and overall she's ready to get started to recover and ultimately return back to home. Subjective/Events-last exam Labs are stable today White count remains normal Blood pressure is labile at times Compression stockings are maintained No bowel movement yesterday but did use prune juice and MiraLAX Having a lot of heel pain and she sleeps in the recliner at home so will work on lifting the heels off the bed completely Physical therapy and Occupational Therapy are doing well for the patient Liver enzymes are much improved Crackles in the right lower lobe persist Reviewed therapy notes Conferred with RN Check meds and labs Review of Systems Musculoskeletal: arm pain Focused Exam Lactate Level Objective Exam Vital Signs Vital Signs Date Time Temp Pulse Resp B/P (MAP) Pulse Ox O2 Delivery O2 Flow Rate FiO2 12/01/18 09:22 122 92/60 (71) 94 12/01/18 09:00 Room Air 12/01/18 05:15 98.1 18 11/28/18 08:31 2.00 Capillary Refill : Less Than 3 Seconds General Appearance: No Apparent Distress, WD/WN, Chronically ill HEENT: PERRL/EOMI, Normal ENT Inspection Neck: Full Range of Motion, Normal Inspection, Non Tender, Supple, Limited Range of Motion (to the right) Respiratory: No Accessory Muscle Use, No Respiratory Distress, Crackles (bases bilateral), Decreased Breath Sounds Cardiovascular: Regular Rate, Rhythm, No Edema, No Gallop, No JVD, No Murmur Gastrointestinal: Normal Bowel Sounds, Soft Back: Normal Inspection, No CVA Tenderness, No Vertebral Tenderness Extremity: Normal Capillary Refill, Normal Inspection, Normal Range of Motion (except right arm), Non Tender, No Calf Tenderness Neurologic/Psychiatric: Alert, Oriented x3, No Motor/Sensory Deficits, Normal Mood/Affect, sales operations director II-XII Norm as Tested Skin: Normal Color, Warm/Dry Lymphatic: No Adenopathy Results/Procedures Lab Laboratory Tests 12/01/18 06:10 Patient resulted labs reviewed. FIM Transfers Therapy Code Descriptions/Definitions Functional [place] Measure: 0=Not Assessed/NA 4=Minimal Assistance 1=Total Assistance 5=Supervision or Setup 2=Maximal Assistance 6=Modified [place] 3=Moderate Assistance 7=Complete [place] Therapy Quality Codes: 6 Independent with activity with or without an assistive device 5 Patient requires set up or clean up by helper. Patient completes activity by themselves 4 Supervision or touching assist (CGA). [place] provide cues , steadying assist 3 The helper provides less than half the effort to complete the activity 2 The helper provides more than half the effort to complete the activity 1 Dependent. The helper does all the effort to complete an activity 7 Patient refused to complete or attempt activity 9 The patient did not perform the activity before the current illness or injury 88 Not attempted due to Medical conditions or safety concerns Transfers (B, C, W/C) (FIM): 3 (pt required MOD A to perform sit to stand. ) Scootin Rollin Roll Left to Right (QC): 4 Supine to/from Sit: 3 Sit to/from Stand: 4 Sit to Lying (QC): 3 Sit to Stand (QC): 4 Chair/Mmn-bd-Adadf Xfer(QC): 4 Bed to/from Chair: 5 Car Transfer (QC): 3 (assist to get her legs into the car) Gait Training Does the Patient Walk?: Yes Gait (FIM): 4 Distance (FIM): 3=150 ft Distance: 150' Walk 10 feet (QC): 4 Walk 50 ft with 2 Turns(QC): 4 Walk 150 ft (QC): 4 Walking 10ft/uneven surface-QC: 3 Gait Level of Assist: 4 Gait Persons Needed: 1 Gait Assistive Device: Walker Platform Wheelchair Training Does the Pt Use a Wheelchair?: No Stair Training Stair Training: Handrails/: uses walker Stairs (FIM): 2 #of Steps: 4 1 Step (curb) (QC): 3 (mod assist to step up) 4 Steps (QC): 88 12 Steps (QC): 88 Stairs: Pattern: Step to Level of Assist: 4 Balance Picking up an Object (QC): 88 Mental Status/Objective Comprehension: 6 Expression: 6 Social Interaction: 7 Problem Solvin Memory: 5 ADL-Treatment Feedin (increase timing secodanry to slow movement pt education on using RUE duing eating. pt stated she used left hand to eat all of breakfast. pt education on using RUE to complete tasks. ) Eating (QC): 6 Groomin (standind at sink. increased timing secodanry slow movement with tre UE ) Oral Hygiene (QC): 6 Bathin (CGA while stanidng. noted pt has fear of falling. only stood to wash buttock. ) Bathing Location: L Arm, R Arm, L Upper Leg, R Upper Leg, L Lower Leg (including foot), R Lower Leg (including foot), Chest, Abdomen, Buttocks, Perineal Area Shower/Bathe Self (QC): 4 Upper Extremity Dressin (increased timing to perform task with MIN VC for proper technuqiues. button up shirt ) Upper Body Dressing (QC): 4 Lower Extremity Dressin (underpants, pants, tre socks. increase timing to perfom all task with use of stroke program coordinator, sock aid, and dressing stick. pt required cuing for skilled techniques. ) Lower Body Dressing (QC): 4 On/Off Footwear (QC): 4 Toiletin (INCREASED TIMING TO COMPLETE TASK SECODNARY TO SLOW MOVEMENTS ) Toileting Hygiene (QC): 4 Toilet/Commode Transfer: 4 (INCREASED TIMING TO COMPLETE TASK SECODNARY TO SLOW MOVEMENTS ) Toilet Transfer (QC): 4 Shower: 4 (INCREASED TIMING TO COMPLETE TASK SECODNARY TO SLOW MOVEMENTS MIN A for sit to stand. ) 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 but does not wish to have work-up or treatment CAD with stents in place PVD with stents in place Lives alone CHF UTI's Crackles RLL acute-improved with IS use Plan: Consult pulmonology Stop atorvastatin d/t liver enzymes Stop acetaminophen d/t liver enzymes Repeat echo and view results Use tramadol for pain to prevent delirium Inpatient rehab protocol Ambulation with walker for fall prevention Regain independence with ADLs with right clavicle fracture and arm in sling Use platform to help navigate ambulation due to clavicle fracture Right arm sling prn to help with the pain IS Control pain AL at DC? (1) Fall on same level (2) Congestive heart failure (3) B12 deficiency (4) Recurrent UTI (5) Hyperlipemia (6) PVD (peripheral vascular disease) (7) CAD (coronary artery disease) (8) Coronary arteriosclerosis (9) Clavicle fracture (10) Hypertension (11) Lung mass (12) Peripheral vascular disease Reviewed assessment and plan Pain control Monitor labs closely Abx empiric for bronchial source nut UTI likely source also Lung cancer is presumed Needs AL (1) Fall on same level Status: Acute (2) Congestive heart failure Status: Acute (3) B12 deficiency (4) Recurrent UTI (5) Hyperlipemia (6) PVD (peripheral vascular disease) (7) CAD (coronary artery disease) (8) Coronary arteriosclerosis Status: Chronic (9) Clavicle fracture (10) Hypertension Status: Acute (11) Lung mass (12) Peripheral vascular disease Status: Chronic COLLEEN OVIEDO DO Dec 01, 2018 09:27
[2018-12-01] MEDS: SACUBITRIL/VALSARTAN 24/26 MG (ENTRESTO) TABLET PO SCH ×2 (09:39→20:59)
[2018-12-01] MEDS: meTOproloL SUCCINATE 50 MG (TOPROL XL) TAB PO SCH (09:39)
--- NOTE | 2018-12-01 10:17 | Speech Therapy Daily Note ---
Speech Daily Progress Note Subjective Date Seen by Provider: Dec 01, 2018 Time Seen by Provider: 00:30 The patient had just finished her hari akfast and was resting in her chair when I entered her room. Objective The patient completed memory exercises with questions related to short stories which had been verbally presented at 80% with minimal cues. Assessment Assessment Current Status: Good Progress Treatment Plan Continue Plan of Care Communication Comprehension: 6 Expression: 6 Social Cognition Social Interaction: 7 Problem Solvin Memory: 5 Speech Short Term Goals Short Term Goals Short Term Goals Patient will demonstrate simple problem solving and memory with 80% accuracy when given minimal cues Comprehension: 6 Expression: 6 Social Interaction: 7 Problem Solvin Memory: [address] Usher Goals Patient will improve cognitive-communication necessary for safety and daily living tasks with minimal assist Comprehension: 6 Expression: 6 Social Interaction: 7 Problem Solvin Memory: 5 Speech-Plan Patient/Family Goals Patient/Family Goals: The patient would like to return to her home post rehab, but in reality she will most likely go to an assisted living facility. Treatment Plan Speech Therapy Treatment Plan: Continue Plan of Care The patient is progressing well with skilled ST services. Treatment Duration: Dec 06, 2018 Frequency: 5 times per week Estimated Hrs Per Day: .5 hour per day Rehab Potential: Good Barriers to Learning: The patient has mild cognitive deficits. Pt/Family Agrees to Plan: Yes Safety Risks/Education Teaching Recipient: Patient Teaching Methods: Demonstration, Discussion Response to Teaching: Verbalize Understanding, Return Demonstration Education Topics Provided: Continued safety and communication of needs/wants Time Speech Therapy Time In: 09:00 Speech Therapy Time Out: 09:30 Total Billed Time: 30 Billed Treatment Time 1, KAYLEN Bowden Dec 01, 2018 10:17
--- NOTE | 2018-12-01 10:41 | Physical Therapy Daily Note ---
PT Daily Note-Current Subjective Pt. agrees to Rx. Feels she is a little better. Pain Location: No Pain Reported Mental Status Patient Orientation: Normal For Age Transfers Therapy Code Descriptions/Definitions Functional [place] Measure: 0=Not Assessed/NA 4=Minimal Assistance 1=Total Assistance 5=Supervision or Setup 2=Maximal Assistance 6=Modified [place] 3=Moderate Assistance 7=Complete [place] Therapy Quality Codes: 6 Independent with activity with or without an assistive device 5 Patient requires set up or clean up by helper. Patient completes activity by themselves 4 Supervision or touching assist (CGA). [place] provide cues , steadying assist 3 The helper provides less than half the effort to complete the activity 2 The helper provides more than half the effort to complete the activity 1 Dependent. The helper does all the effort to complete an activity 7 Patient refused to complete or attempt activity 9 The patient did not perform the activity before the current illness or injury 88 Not attempted due to Medical conditions or safety concerns Transfers (B, C, W/C) (FIM): 3 Scootin Rollin Supine to/from Sit: 4 Sit to/from Stand: 3 Bed to/from Chair: 4 sit to stand from standard seat height requires mod assist 3/5 trials and CGA to min 2/5 trials, pt has recliner up on platform at home. Weight Bearing Full Weight Bearing Full Weight Bearing sling right UE; Physician reports she may use her right UE for use in a platform walker. Gait Training Does the Patient Walk?: Yes Gait (FIM): 4 Distance (FIM): 3=150 ft (160x2) Gait Level of Assist: 4 Gait Persons Needed: 1 Gait Assistive Device: Walker Platform Stair Training Stair Training: Handrails/: uses walker Stairs (FIM): 2 #of Steps: 4 Stairs: Pattern: Step to Level of Assist: 4 pt. has one rail on one side at home and will need to manage 3 steps . Pt. is unable to attempt use of RUE for steps Exercises Seated Therapy Exercises: Ankle pumps, Sit to stand, Long arc quads, Hip flexion, Hip abd/add Seated Reps: 15 (x2) NuStep Minutes: 12 NuStep Workload: 5 Treatments sit to stand emphasis this date with wt shift etc. Assessment Current Status: Good Progress PT Short Term Goals Short Term Goals Time Frame: Nov 29, 2018 Transfers (B,C,W/C) (FIM): 4 Gait (FIM): 4 PT Assisted Goals Assisted Goals PT Assisted Goals Time Frame: Dec 14, 2018 Transfers (B,C,W/C) (FIM): 6 Sit to Lying (QC): 6 Lying-Sitting on Side/Bed(QC): 6 Sit to Stand (QC): 6 Rollin Roll Left to Right (QC): 6 Chair/Lnp-xa-Debnh Xfer(QC): 6 Car Transfer (QC): 6 Does the Patient Walk: Yes Gait (FIM): 6 Gait distance (FIM): 3=150 ft Walk 10 feet (QC): 6 Walk 10ft-Uneven Surface(QC): 6 Walk 50ft with 2 Turns (QC): 6 Walk 150 ft (QC): 6 Gait Assistive Device: FWW Stairs (FIM): 2 # of Steps: 4 1 Step (curb) (QC): 6 4 Steps (QC): 6 12 Steps (QC): 88 Picking up an Object (QC): 88 PT Plan Treatment/Plan Treatment Plan: Continue Plan of Care Treatment Plan: Bed Mobility, Education, Functional Activity [place], Functional Strength, Group Therapy, Gait, Safety, Therapeutic Exercise, Transfers Treatment Duration: Dec 14, 2018 Frequency: At least 5 of 7 days/Wk (IRF) Estimated Hrs Per Day: 1.5 hours per day Patient and/or Family Agrees t: Yes Safety Risks/Education Patient Education: Gait Training, Transfer Techniques, Steps, Correct Position ing, Disease Process, Safety Issues Teaching Recipient: Patient Teaching Methods: Demonstration, Discussion Response to Teaching: Verbalize Understanding, Return Demonstration, Reinforcement Needed Time/GCodes Time In: 930 Time Out: 1030 Total Billed Treatment Time: 60 Total Billed Treatment 1,FA25m,GT15m,EX20m G Codes Necessary: DARRYL Felix PHOTOENGRAVING HELPER Dec 01, 2018 10:40
--- NOTE | 2018-12-01 13:03 | Occupational Ther Daily Note ---
OT Current Status-Daily Note Subjective Pt seen in room, up in chair, agreeable to OT. Pain not mentioned except during exercises. She said she knows she can't have more pain meds yet. Appearance Alert, cooperative Mental Status/Objective Therapy Code Descriptions/Definitions Functional [place] Measure: 0=Not Assessed/NA 4=Minimal Assistance 1=Total Assistance 5=Supervision or Setup 2=Maximal Assistance 6=Modified [place] 3=Moderate Assistance 7=Complete [place] ADL-Treatment Pt declined shower but would like soap and water to wash up a little. She washed face and hands and under her arms with setup, increased time and some difficulty wringing out washcloth because she couldn't get her R hand up to the basin. She needed help putting on deodorant because she usually uses roll on which she can get under R arm. Pt educ modified technique for donning button-up shirt. She was able to get it on and buttoned but needed extra time. Able to get shoes off and on, pants on over her feet without help but needed mod assist sit to stand to pull pants up, FWW with platform. Walked to sink and brushed teeth at sink with SBA, FWW. Therapy Code Descriptions/Definitions Functional [place] Measure: 0=Not Assessed/NA 4=Minimal Assistance 1=Total Assistance 5=Supervision or Setup 2=Maximal Assistance 6=Modified [place] 3=Moderate Assistance 7=Complete [place] Therapy Quality Codes: 6 Independent with activity with or without an assistive device 5 Patient requires set up or clean up by helper. Patient completes activity by themselves 4 Supervision or touching assist (CGA). [place] provide cues , steadying assist 3 The helper provides less than half the effort to complete the activity 2 The helper provides more than half the effort to complete the activity 1 Dependent. The helper does all the effort to complete an activity 7 Patient refused to complete or attempt activity 9 The patient did not perform the activity before the current illness or inj ury 88 Not attempted due to Medical conditions or safety concerns Grooming (FIM): 5 (SBA, FWW) Upper Body (FIM): 5 (Extra time) Lower Body Dressing (FIM): 3 (Mod assist) Other Treatment Pt walked with CGA to SBA, FWW with platform, to commons area. Sat CGA in chair with arms. Pt did AAROM bilat UE, using L UE to help with ROM R shoulder. Pt has very limited sh flex and abd from old shoulder injury. With RENATO able to get R shoulder flex to approx 40 degrees. Pt educ modified technique she can do on her own for active stretch for R shoulder while seated. 10 reps AROM elbow, forearm and wrists. To increase UE strength and ROM as needed for ADLs and transfers. Pt reported some increased discomfort at clavicle on R after stretches. Pt educ stretching can also help prevent contractures after injury. Pt up from chair with mod assist and walked back to room CGA, FWW. pt left up in recliner, all needs met. Education OT Patient Education: Exercise program, Modified ADL techniques, Progress toward Goal/Update tx plan, Purpose of tx/functional activities, Transfer techniques Teaching Recipient: Patient Teaching Methods: Demonstration Response to Teaching: Verbalize Understanding, Return Demonstration, Reinforc ement Needed OT Short Term Goals Short Term Goals Time Frame: Dec 06, 2018 Eating(FIM): 6 Grooming(FIM): 5 Bathing(FIM): 4 Bathing Location: L Arm, R Arm, L Upper Leg, R Upper Leg, L Lower Leg (including foot), R Lower Leg (including foot), Chest, Abdomen, Buttocks, Perineal Area Upper Body Dressing(FIM): 4 Lower Body Dressing(FIM): 4 Toileting(FIM): 4 Transfers (B,C,W/C) (FIM): 4 Toilet/Commode Transfer(FIM): 4 Shower Transfer(FIM): 4 Comprehension(FIM): 6 Expression(FIM): 6 Social Interaction(FIM): 7 Problem Solving(FIM): 5 Memory(FIM): 5 Additional Short Term Goals: 1-Demonstrate ADL Tasks, 2-Verbalize Understanding , 3-ImproveStrength/[place] 1=Demonstrate adherence to instructed precautions during ADL tasks. 2=Patient will verbalize/demonstrate understanding of assistive devices/modifications for ADL. 3=Patient will improve strength/tolerance for activity to enable patient to perform ADL's. OT Mcfp Goals Mcfp Goals Time Frame: Dec 20, 2018 Eating (FIM): 7 Eating (QC): 6 Groomin Oral Hygiene (QC): 6 Bathing(FIM): 6 Bathing Location: L Arm, R Arm, L Upper Leg, R Upper Leg, L Lower Leg (including foot), R Lower Leg (including foot), Chest, Abdomen, Buttocks, Perineal Area Shower/Bathe Self (QC): 6 Upper Body Dressing(FIM): 6 Upper Body Dressing (QC): 6 Lower Body Dressing(FIM): 6 Lower Body Dressing (QC): 6 On/Off Footwear (QC): 6 Toileting(FIM): 6 Toileting Hygiene (QC): 6 Transfers (B,C,W/C) (FIM): 6 Toilet/Commode Transfer(FIM): 6 Toilet/Commode Transfer (QC): 6 Shower Transfer(FIM): 6 Comprehension(FIM): 6 Expression (FIM): 6 Social Interaction(FIM): 7 Problem Solving(FIM): 5 Memory(FIM): 5 Additional Goals: 1-Demonstrate ADL Tasks, 2-Verbalize Understanding, 3-ImproveStrength/[place] 1=Demonstrate adherence to instructed precautions during ADL tasks. 2=Patient will verbalize/demonstrate understanding of assistive devices/modifications for ADL. 3=Patient will improve strength/tolerance for activity to enable patient to perf orm ADL's. OT Education/Plan Problem List/Assessment pt presents with functional limitations affecting areas of ADLS and functional transfers with the above mention deficits. pt would benefit from skilled OT services to increase independence with ADL and functional transfers. Discharge Recommendations Plan/Recommendations: Continue POC Treatment Plan/Plan of Care Patient would benefit from OT for education, treatment and training to promote independence in ADL's, mobility, safety and/or upper extremity function for ADL's. Plan of Care: ADL Retraining, Caregiver Training, Functional Mobility, Group Exercise/Act as Ind, UE Funct Exercise/Act Treatment Duration: Dec 20, 2018 Frequency: At least 5 of 7 days/Wk (IRF) Estimated Hrs Per Day: 1 hour per day (60-90 minutes per day) Agreement: Yes Rehab Potential: Good Time/GCodes Start Time: 11:00 Stop Time: 12:15 Total Time Billed (hr/min): 75 Billed Treatment Time visit, 40 minutes ADL, 35 minutes exercise. ZEINA CAMPOS OT Dec 01, 2018 13:03
--- NOTE | 2018-12-01 13:24 | Physical Therapy Daily Note ---
PT Daily Note-Current Subjective Pt. agrees to Rx. Pt. has stated that she has been feeling the bed on her heels at night in bed and it wakes her up. Agrees to Rx Pain Location: No Pain Reported Mental Status Patient Orientation: Normal For Age Transfers Therapy Code Descriptions/Definitions Functional [place] Measure: 0=Not Assessed/NA 4=Minimal Assistance 1=Total Assistance 5=Supervision or Setup 2=Maximal Assistance 6=Modified [place] 3=Moderate Assistance 7=Complete [place] Therapy Quality Codes: 6 Independent with activity with or without an assistive device 5 Patient requires set up or clean up by helper. Patient completes activity by themselves 4 Supervision or touching assist (CGA). [place] provide cues , steadying assist 3 The helper provides less than half the effort to complete the activity 2 The helper provides more than half the effort to complete the activity 1 Dependent. The helper does all the effort to complete an activity 7 Patient refused to complete or attempt activity 9 The patient did not perform the activity before the current illness or injury 88 Not attempted due to Medical conditions or safety concerns sit to stand x 3 min to CGA. sit to sup SBA Weight Bearing Full Weight Bearing Full Weight Bearing sling right UE; Physician reports she may use her right UE for use in a platform walker. Gait Training Gait Assistive Device: Walker Platform gait 275 ft SBA heavy wt bearing on FWW, no LOB, slow Treatments in bed with positioning for pillow support under R arm as well as under B LEs for heel float , used pillows as well as bath blankets Assessment Current Status: Good Progress PT Short Term Goals Short Term Goals Time Frame: Nov 29, 2018 Transfers (B,C,W/C) (FIM): 4 Gait (FIM): 4 PT Chcf Goals Chcf Goals PT Chcf Goals Time Frame: Dec 14, 2018 Transfers (B,C,W/C) (FIM): 6 Sit to Lying (QC): 6 Lying-Sitting on Side/Bed(QC): 6 Sit to Stand (QC): 6 Rollin Roll Left to Right (QC): 6 Chair/Vkh-cu-Pfart Xfer(QC): 6 Car Transfer (QC): 6 Does the Patient Walk: Yes Gait (FIM): 6 Gait distance (FIM): 3=150 ft Walk 10 feet (QC): 6 Walk 10ft-Uneven Surface(QC): 6 Walk 50ft with 2 Turns (QC): 6 Walk 150 ft (QC): 6 Gait Assistive Device: FWW Stairs (FIM): 2 # of Steps: 4 1 Step (curb) (QC): 6 4 Steps (QC): 6 12 Steps (QC): 88 Picking up an Object (QC): 88 PT Plan Treatment/Plan Treatment Plan: Continue Plan of Care Treatment Plan: Bed Mobility, Education, Functional Activity [place], Functional Strength, Group Therapy, Gait, Safety, Therapeutic Exercise, Transfers Treatment Duration: Dec 14, 2018 Frequency: At least 5 of 7 days/Wk (IRF) Estimated Hrs Per Day: 1.5 hours per day Patient and/or Family Agrees t: Yes Safety Risks/Education Patient Education: Gait Training, Transfer Techniques Teaching Recipient: Patient Teaching Methods: Demonstration, Discussion Response to Teaching: Verbalize Understanding, Return Demonstration, Reinforcement Needed Time/GCodes Time In: 1300 Time Out: 1320 Total Billed Treatment Time: 20 Total Billed Treatment 1,GT20m G Codes Necessary: DARRYL Felix PTA Dec 01, 2018 13:24
[2018-12-01 17:37] VITALS: BP 144/80
[2018-12-01] MEDS: GABAPENTIN 100 MG (NEURONTIN) CAP PO SCH (18:01)
[2018-12-01] MEDS: AMITRIPTYLINE 25 MG (ELAVIL) TAB PO SCH (20:58)
[2018-12-02 06:12] VITALS: BP 165/60
[2018-12-02] MEDS: CYANOCOBALAMIN 1,000 MCG (VITAMIN B-12) TABLET PO SCH (06:33)
[2018-12-02] MEDS: MULTIVIT W/MINERALS TAB (THERAGRAN M) PO SCH (06:33)
[2018-12-02] MEDS: AMOX/CLAV 600 MG/5 ML (AUGMENTIN) 75 ML BTL PO SCH ×2 (06:38→16:54)
[2018-12-02] MEDS: RT-ALBUTEROL SULF 2.5 MG/3 ML PRE-MIX VIAL INH SCH ×3 (07:27→21:25)
[2018-12-02 08:52] VITALS: BP 97/59
[2018-12-02 08:58] VITALS: BP 105/56
[2018-12-02] MEDS: ASPIRIN 81 MG CHEW (CHILDREN'S ASA) PO SCH (09:04)
[2018-12-02] MEDS: PHENAZOPYRIDINE 100 MG (PYRIDIUM) TABLET PO PRN (09:04)
[2018-12-02] MEDS: SENNA W/DOCUSATE (SENOKOT S) TABLET PO SCH ×2 (09:04→20:58)
[2018-12-02] MEDS: MOVE FREE JOINT HEALTH PO SCH (09:06)
[2018-12-02] MEDS: LUTEIN 40 MG PO SCH (09:06)
[2018-12-02] MEDS: ENOXAPARIN 40 MG/0.4 ML (LOVENOX) SYR SC SCH (09:11)
--- NOTE | 2018-12-02 10:59 | Physical Therapy Daily Note ---
PT Daily Note-Current Subjective Pt. agrees to Rx, wants to walk and end up in shower after for a bath with assist of aide Pain Location: No Pain Reported Mental Status Patient Orientation: Normal For Age Transfers Therapy Code Descriptions/Definitions Functional [place] Measure: 0=Not Assessed/NA 4=Minimal Assistance 1=Total Assistance 5=Supervision or Setup 2=Maximal Assistance 6=Modified [place] 3=Moderate Assistance 7=Complete [place] Therapy Quality Codes: 6 Independent with activity with or without an assistive device 5 Patient requires set up or clean up by helper. Patient completes activity by themselves 4 Supervision or touching assist (CGA). [place] provide cues , steadying assist 3 The helper provides less than half the effort to complete the activity 2 The helper provides more than half the effort to complete the activity 1 Dependent. The helper does all the effort to complete an activity 7 Patient refused to complete or attempt activity 9 The patient did not perform the activity before the current illness or injury 88 Not attempted due to Medical conditions or safety concerns Transfers (B, C, W/C) (FIM): 3 Scootin Sit to/from Stand: 3 more difficulty with sit to stand today requiring mod assist each trial. increased seat height needed for sit to stand increased indep Weight Bearing Full Weight Bearing Full Weight Bearing sling right UE; Physician reports she may use her right UE for use in a platform walker. Gait Training Does the Patient Walk?: Yes Gait (FIM): 4 Distance (FIM): 3=150 ft (350ft, 50ft) Gait Level of Assist: 5 Gait Persons Needed: 1 Gait Assistive Device: Walker Platform slow, cues for broader CONNIE and to guide device around objects Exercises Seated Therapy Exercises: Ankle pumps, Sit to stand, Long arc quads, Hip flexion, Hip abd/add Seated Reps: 15 Assessment Current Status: Good Progress PT Short Term Goals Short Term Goals Time Frame: Nov 29, 2018 Transfers (B,C,W/C) (FIM): 4 Gait (FIM): 4 PT Casting Coordinator Goals Casting Coordinator Goals PT Shelter Goals Time Frame: Dec 14, 2018 Transfers (B,C,W/C) (FIM): 6 Sit to Lying (QC): 6 Lying-Sitting on Side/Bed(QC): 6 Sit to Stand (QC): 6 Rollin Roll Left to Right (QC): 6 Chair/Wxo-xx-Wvbkn Xfer(QC): 6 Car Transfer (QC): 6 Does the Patient Walk: Yes Gait (FIM): 6 Gait distance (FIM): 3=150 ft Walk 10 feet (QC): 6 Walk 10ft-Uneven Surface(QC): 6 Walk 50ft with 2 Turns (QC): 6 Walk 150 ft (QC): 6 Gait Assistive Device: FWW Stairs (FIM): 2 # of Steps: 4 1 Step (curb) (QC): 6 4 Steps (QC): 6 12 Steps (QC): 88 Picking up an Object (QC): 88 PT Plan Treatment/Plan Treatment Plan: Continue Plan of Care Treatment Plan: Bed Mobility, Education, Functional Activity [place], Functional Strength, Group Therapy, Gait, Safety, Therapeutic Exercise, Transfers Treatment Duration: Dec 14, 2018 Frequency: At least 5 of 7 days/Wk (IRF) Estimated Hrs Per Day: 1.5 hours per day Patient and/or Family Agrees t: Yes Safety Risks/Education Patient Education: Gait Training, Transfer Techniques, Correct Positioning, Disease Process, Safety Issues Teaching Recipient: Patient Teaching Methods: Demonstration, Discussion Response to Teaching: Verbalize Understanding, Return Demonstration, Reinforcement Needed Time/GCodes Time In: 1130 Time Out: 1155 Total Billed Treatment Time: 25 Total Billed Treatment 1,EX10m,GT15m G Codes Necessary: DARRYL Felix TIE SAWYER Dec 02, 2018 10:59
[2018-12-02 11:32] VITALS: BP 114/68
--- NOTE | 2018-12-02 11:52 | Cardiology Progress Note ---
Subjective Date Seen by Provider: Dec 02, 2018 Time Seen by Provider: 11:47 Subjective/Events-last exam Patient is sitting in a chair, not in distress, mild dyspnea on exertion, had some right side chest and shoulder pain Review of Systems General: No Chills, No Night Sweats, No Fatigue, No Malaise, No Appetite, No Other HEENT: No Head Aches, No Visual Changes, No Eye Pain, No Ear Pain, No Dysphasia, No Sinus Congestion, No Post Nasal Drip, No Sore Throat, No Other Pulmonary: Dyspnea (YOUNG); No Cough, No Pleuritic Chest Pain, No Other Cardiovascular: Chest Pain; No: Palpitations, Orthopnea, Paroxysmal Noc. Dyspnea, Edema, Lt Headedness, Other Objective-Cardiology Exam Last Set of Vital Signs Vital Signs 11/28/18 12/02/18 12/02/18 08:31 08:52 08:58 Temp 97.6 Pulse 76 Resp 20 B/P (MAP) 105/56 (72) Pulse Ox 98 O2 Delivery Room Air O2 Flow Rate 2.00 Capillary Refill : Less Than 3 Seconds I&O Intake and Output 12/02/18 00:00 Intake Total 750 ml Balance 750 ml Intake Oral 750 ml # Voids 8 # Bowel Movements 1 General: Alert, Oriented X3, Cooperative, No Acute Distress HEENT: Atraumatic, PERRLA Neck: Supple, No JVD, No Thyromegaly Lungs: Clear to Auscultation, Normal Air Movement Heart: Normal S1, Normal S2, No Murmurs, Other (tachycardia) Abdomen: Normal Bowel Sounds, Soft, No Tenderness, No Hepatosplenomegaly, No Masses Extremities: No Clubbing, No Cyanosis, No Edema, No Tenderness/Swelling Skin: No Rashes, No Breakdown, No Significant Lesion Neuro: Normal Speech, Strength at 5/5 X4 Ext, Normal Tone, Sensation Intact Psych/Mental Status: Mental Status NL, Mood NL A/P-Cardiology Admission Diagnosis Chest pain CAD CHF HTN Assessment/Plan Chest pain, non specific etiology, having right sided chest and shoulder pain, atypical in nature, secondary to clavicle fracture Tachycardia, probably sinus, I will evaluate ECG CAD- reported history of stent placement in the past. Follows with Dr. Marrero as outpatient. CHF- 2D Echo done 2018 revealed EF 30-35%. Maintained on Entresto, beta fadi, I will stop Aldactone secondary to hypokalemia Labile HTN, still borderline hypotensive, change toprol to evening and stop aldactone and monitor response Lung mass- patient reports diagnosed 40 years ago and has refused treatment. Managed by primary care team Elevated LFT's- Lipitor d/c'd. underwent Liver US yesterday which was WNL, improving, continue to monitor History of frequent falls at home Right clavicle fracture secondary to fall. Clinical Quality Measures DVT/VTE Risk/Contraindication: Risk Factor Score Per Nursin RFS Level Per Nursing on Admit: 4+=Very High NICOLE DE LOS SANTOS MD Dec 02, 2018 11:52
--- NOTE | 2018-12-02 12:03 | NUR ---
Asked Dr. Diallo whether to give Entresto or not, he states to give med. Dr. Diallo has been in & notified of tachcardia, & hypotension, Toprol & Aldactone held along w Entresto which was held yesterday. Dr. Diallo changed Toprol dose & stopped Aldactone. Orders now to give Entresto.
[2018-12-02] MEDS: SACUBITRIL/VALSARTAN 24/26 MG (ENTRESTO) TABLET PO SCH ×2 (12:05→20:57)
--- NOTE | 2018-12-02 13:02 | PM&R Progress Note ---
Subjective HPI/CC On Admission Date Seen by Provider: Dec 02, 2018 Time Seen by Provider: 12:30 Chief Complaint: Debility following fall with right clavicle fracture HPI: This is a 88 yoWF clinic pt of Dr. Dobbins and Dr. Marrero cardiology in [place] who has a PMH of known lung mass did not pursue that a few years ago who presents to inpatient rehab following an observation stay after a fall sustaining a right clavicle fracture. She lives at home alone shes been falling a lot and has become quite debilitated and the goal is to return home to independent living with ADL independence and ambulatory status independent. 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 She does recall meeting me. At this current time pt is very well controlled is aware of the additional lung mass that she has no intention of treating and Dr. Hoskins updated her on that fact and overall she's ready to get started to recover and ultimately return back to home. Subjective/Events-last exam Labs are stable White count remains normal since infection last week Blood pressure is labile at times and Dr Diallo changed some meds today and holding Toprol Compression stockings are maintained BM x 2 this morning after prune juice and Miralax Having a lot of heel pain and she sleeps in the recliner at home so will work on lifting the heels off the bed completely Physical therapy and Occupational Therapy are doing well for the patient Liver enzymes are much improved Crackles in the right lower lobe persist but improved today Hydrocodone 2.5mg will be added since she appears to not have adequate pain control with the Ultram Reviewed therapy notes Conferred with RN Check meds and labs Review of Systems General: Fatigue Musculoskeletal: arm pain Objective Exam Vital Signs Vital Signs Date Time Temp Pulse Resp B/P (MAP) Pulse Ox O2 Delivery O2 Flow Rate FiO2 12/02/18 11:32 118 20 114/68 (83) Room Air 12/02/18 08:58 98 12/02/18 08:52 97.6 11/28/18 08:31 2.00 Capillary Refill : Less Than 3 Seconds General Appearance: No Apparent Distress, WD/WN, Chronically ill HEENT: PERRL/EOMI, Normal ENT Inspection Neck: Full Range of Motion, Normal Inspection, Non Tender, Supple, Limited Range of Motion (to the right) Respiratory: Chest Non Tender, Lungs Clear, Normal Breath Sounds, No Accessory Muscle Use, No Respiratory Distress Cardiovascular: Regular Rate, Rhythm, No Edema, No Gallop, No JVD, No Murmur Gastrointestinal: Normal Bowel Sounds, Soft Back: Normal Inspection, No CVA Tenderness, No Vertebral Tenderness Extremity: Normal Capillary Refill, Normal Inspection, Normal Range of Motion (except right arm), Non Tender, No Calf Tenderness Neurologic/Psychiatric: Alert, Oriented x3, No Motor/Sensory Deficits, Normal Mood/Affect, cutting pressman II-XII Norm as Tested Skin: Normal Color, Warm/Dry Lymphatic: No Adenopathy Results/Procedures Lab Patient resulted labs reviewed. FIM Transfers Therapy Code Descriptions/Definitions Functional [place] Measure: 0=Not Assessed/NA 4=Minimal Assistance 1=Total Assistance 5=Supervision or Setup 2=Maximal Assistance 6=Modified [place] 3=Moderate Assistance 7=Complete [place] Therapy Quality Codes: 6 Independent with activity with or without an assistive device 5 Patient requires set up or clean up by helper. Patient completes activity by themselves 4 Supervision or touching assist (CGA). [place] provide cues , steadying ass ist 3 The helper provides less than half the effort to complete the activity 2 The helper provides more than half the effort to complete the activity 1 Dependent. The helper does all the effort to complete an activity 7 Patient refused to complete or attempt activity 9 The patient did not perform the activity before the current illness or injury 88 Not attempted due to Medical conditions or safety concerns Transfers (B, C, W/C) (FIM): 3 Scootin Rollin Roll Left to Right (QC): 4 Supine to/from Sit: 4 Sit to/from Stand: 3 Sit to Lying (QC): 3 Sit to Stand (QC): 4 Chair/Yxp-nl-Cfylp Xfer(QC): 4 Bed to/from Chair: 4 Car Transfer (QC): 3 (assist to get her legs into the car) Gait Training Does the Patient Walk?: Yes Gait (FIM): 4 Distance (FIM): 3=150 ft (350ft, 50ft) Distance: 150' Walk 10 feet (QC): 4 Walk 50 ft with 2 Turns(QC): 4 Walk 150 ft (QC): 4 Walking 10ft/uneven surface-QC: 3 Gait Level of Assist: 5 Gait Persons Needed: 1 Gait Assistive Device: Walker Platform Wheelchair Training Does the Pt Use a Wheelchair?: No Stair Training Stair Training: Handrails/: uses walker Stairs (FIM): 2 #of Steps: 4 1 Step (curb) (QC): 3 (mod assist to step up) 4 Steps (QC): 88 12 Steps (QC): 88 Stairs: Pattern: Step to Level of Assist: 4 Balance Picking up an Object (QC): 88 Mental Status/Objective Comprehension: 6 Expression: 6 Social Interaction: 7 Problem Solvin Memory: 5 ADL-Treatment Feedin (increase timing secodanry to slow movement pt education on using RUE duing eating. pt stated she used left hand to eat all of breakfast. pt education on using RUE to complete tasks. ) Eating (QC): 6 Groomin (SBA, FWW) Oral Hygiene (QC): 6 Bathin (CGA while stanidng. noted pt has fear of falling. only stood to wash buttock. ) Bathing Location: L Arm, R Arm, L Upper Leg, R Upper Leg, L Lower Leg (including foot), R Lower Leg (including foot), Chest, Abdomen, Buttocks, Whitney tori Area Shower/Bathe Self (QC): 4 Upper Extremity Dressin (Extra time) Upper Body Dressing (QC): 4 Lower Extremity Dressin (Mod assist) Lower Body Dressing (QC): 4 On/Off Footwear (QC): 4 Toiletin (INCREASED TIMING TO COMPLETE TASK SECODNARY TO SLOW MOVEMENTS ) Toileting Hygiene (QC): 4 Toilet/Commode Transfer: 4 (INCREASED TIMING TO COMPLETE TASK SECODNARY TO SLOW MOVEMENTS ) Toilet Transfer (QC): 4 Shower: 4 (INCREASED TIMING TO COMPLETE TASK SECODNARY TO SLOW MOVEMENTS MIN A for sit to stand. ) 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 but does not wish to have work-up or treatment CAD with stents in place PVD with stents in place Lives alone CHF UTI's Crackles RLL acute-improved with IS use Elevated LFT's limiting APAP and holding statin Plan: Consult pulmonology is appreciated Stop atorvastatin d/t liver enzymes Stop acetaminophen d/t liver enzymes Repeated echo and viewed results Use tramadol for pain to prevent delirium but does not appear to be working well for her so add Hydrocodone Inpatient rehab protocol Ambulation with walker for fall prevention Regain independence with ADLs with right clavicle fracture and arm in sling Use platform to help navigate ambulation due to clavicle fracture Right arm sling prn to help with the pain IS Control pain with addition of Hydrocodone AL at DC? (1) Fall on same level (2) Congestive heart failure (3) B12 deficiency (4) Recurrent UTI (5) Hyperlipemia (6) PVD (peripheral vascular disease) (7) CAD (coronary artery disease) (8) Coronary arteriosclerosis (9) Clavicle fracture (10) Hypertension (11) Lung mass (12) Peripheral vascular disease Reviewed assessment and plan Pain control Monitor labs closely Abx empiric for bronchial source nut UTI likely source also Lung cancer is presumed Needs AL (1) Fall on same level Status: Acute (2) Congestive heart failure Status: Acute (3) B12 deficiency (4) Recurrent UTI (5) Hyperlipemia (6) PVD (peripheral vascular disease) (7) CAD (coronary artery disease) (8) Coronary arteriosclerosis Status: Chronic (9) Clavicle fracture (10) Hypertension Status: Acute (11) Lung mass (12) Peripheral vascular disease Status: Chronic COLLEEN OVIEDO DO Dec 02, 2018 13:02
[2018-12-02] MEDS: HYDROcodone/APAP 5 MG/325 MG (LORTAB) TAB PO PRN ×2 (15:03→23:48)
[2018-12-02] MEDS: GABAPENTIN 100 MG (NEURONTIN) CAP PO SCH (16:49)
[2018-12-02 17:20] VITALS: BP 122/50
--- NOTE | 2018-12-02 18:06 | NUR ---
Notified Dr. Diallo of EKG results.
[2018-12-02] MEDS: AMITRIPTYLINE 25 MG (ELAVIL) TAB PO SCH (20:57)
[2018-12-03 05:50] VITALS: BP 155/72
[2018-12-03] MEDS: CYANOCOBALAMIN 1,000 MCG (VITAMIN B-12) TABLET PO SCH (06:18)
[2018-12-03] MEDS: MULTIVIT W/MINERALS TAB (THERAGRAN M) PO SCH (06:18)
[2018-12-03] MEDS: AMOX/CLAV 600 MG/5 ML (AUGMENTIN) 75 ML BTL PO SCH ×2 (06:19→17:54)
[2018-12-03] MEDS: RT-ALBUTEROL SULF 2.5 MG/3 ML PRE-MIX VIAL INH SCH ×3 (07:27→19:48)
[2018-12-03 08:42] VITALS: BP 96/60
[2018-12-03] MEDS: PHENAZOPYRIDINE 100 MG (PYRIDIUM) TABLET PO PRN (08:50)
[2018-12-03] MEDS: SACUBITRIL/VALSARTAN 24/26 MG (ENTRESTO) TABLET PO SCH ×2 (08:50→21:31)
[2018-12-03] MEDS: SENNA W/DOCUSATE (SENOKOT S) TABLET PO SCH ×2 (08:51→21:32)
[2018-12-03] MEDS: ASPIRIN 81 MG CHEW (CHILDREN'S ASA) PO SCH (08:51)
[2018-12-03] MEDS: LUTEIN 40 MG PO SCH (08:52)
[2018-12-03] MEDS: MOVE FREE JOINT HEALTH PO SCH (08:52)
[2018-12-03] MEDS: ENOXAPARIN 40 MG/0.4 ML (LOVENOX) SYR SC SCH (08:53)
--- NOTE | 2018-12-03 09:18 | NUR ---
Pt denied pain this morning, states that the new pain pill has really helped the pain much more, "I think the old one just wore off."
--- NOTE | 2018-12-03 11:34 | Cardiology Progress Note ---
Subjective Date Seen by Provider: Dec 03, 2018 Time Seen by Provider: 11:31 Subjective/Events-last exam Patient is in bed, complaining of pain and feeling cold feet, no chest pain Review of Systems General: No Chills, No Night Sweats, No Fatigue, No Malaise, No Appetite, No Other HEENT: No Head Aches, No Visual Changes, No Eye Pain, No Ear Pain, No Dysphasia, No Sinus Congestion, No Post Nasal Drip, No Sore Throat, No Other Pulmonary: No Dyspnea, No Cough, No Pleuritic Chest Pain, No Other Cardiovascular: No: Chest Pain, Palpitations, Orthopnea, Paroxysmal Noc. Dyspnea, Edema, Lt Headedness, Other Objective-Cardiology Exam Last Set of Vital Signs Vital Signs 11/28/18 12/03/18 12/03/18 08:31 05:50 08:42 Temp 97.8 Pulse 63 Resp 18 B/P (MAP) 96/60 (72) Pulse Ox 95 O2 Delivery Room Air O2 Flow Rate 2.00 Capillary Refill : Less Than 3 Seconds I&O Intake and Output 12/03/18 00:00 Intake Total 1000 ml Balance 1000 ml Intake Oral 1000 ml # Voids 7 # Bowel Movements 2 General: Alert, Oriented X3, Cooperative, No Acute Distress HEENT: Atraumatic, PERRLA Neck: Supple, No JVD, No Thyromegaly Lungs: Clear to Auscultation, Normal Air Movement Heart: Normal S1, Normal S2, No Murmurs, Other (tachycardia) Abdomen: Normal Bowel Sounds, Soft, No Tenderness, No Hepatosplenomegaly, No Masses Extremities: No Clubbing, No Cyanosis, No Edema, No Tenderness/Swelling Skin: No Rashes, No Breakdown, No Significant Lesion Neuro: Normal Speech, Strength at 5/5 X4 Ext, Normal Tone, Sensation Intact Psych/Mental Status: Mental Status NL, Mood NL A/P-Cardiology Admission Diagnosis Chest pain CAD CHF HTN Assessment/Plan Chest pain, non specific etiology, having right sided chest and shoulder pain, atypical in nature, secondary to clavicle fracture Tachycardia, sinus, persistent, cannot tolerate a higher dose BB due to hypotension, I will evaluate CBC, TSH CAD- reported history of stent placement in the past. Follows with Dr. Marrero as outpatient. CHF- 2D Echo done 2018 revealed EF 30-35%. Maintained on Entresto, beta fadi, I will evaluate electrolytes Labile HTN, still borderline hypotensive, change toprol to evening and stop aldactone and continue to monitor Peripheral arterial disease, followed by Dr Marrero, continue to monitor Lung mass- patient reports diagnosed 40 years ago and has refused treatment. Managed by primary care team Elevated LFT's- Lipitor d/c'd. underwent Liver US yesterday which was WNL, improving, continue to monitor History of frequent falls at home Right clavicle fracture secondary to fall. Clinical Quality Measures DVT/VTE Risk/Contraindication: Risk Factor Score Per Nursin RFS Level Per Nursing on Admit: 4+=Very High NICOLE DE LOS SANTOS MD Dec 03, 2018 11:34
--- NOTE | 2018-12-03 12:17 | PM&R Progress Note ---
Subjective HPI/CC On Admission Date Seen by Provider: Dec 03, 2018 Time Seen by Provider: 12:00 Chief Complaint: Debility following fall with right clavicle fracture HPI: This is a 88 yoWF clinic pt of Dr. Dobbins and Dr. Marrero cardiology in [place] who has a PMH of known lung mass did not pursue that a few years ago who presents to inpatient rehab following an observation stay after a fall sustaining a right clavicle fracture. She lives at home alone shes been falling a lot and has become quite debilitated and the goal is to return home to independent living with ADL independence and ambulatory status independent. 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 She does recall meeting me. At this current time pt is very well controlled is aware of the additional lung mass that she has no intention of treating and Dr. Hoskins updated her on that fact and overall she's ready to get started to recover and ultimately return back to home. Subjective/Events-last exam Blood pressure is labile at times and Dr Diallo changed some meds today again Compression stockings are maintained and helping her BM normal Having a lot of heel pain and she sleeps in the recliner at home so will work on lifting the heels off the bed completely Physical therapy and Occupational Therapy are doing well for the patient Liver enzymes are much improved over last 2 draws Crackles in the right lower lobe persist Hydrocodone 2.5mg added yesterday since she appeared to not have adequate pain control with the Ultram and that seems to be helping her quite a bit Reviewed therapy notes Conferred with RN Check meds and labs Review of Systems Musculoskeletal: arm pain Objective Exam Vital Signs Vital Signs Date Time Temp Pulse Resp B/P (MAP) Pulse Ox O2 Delivery O2 Flow Rate FiO2 12/03/18 15:18 92 Room Air 12/03/18 13:23 97.3 78 22 109/69 (82) 11/28/18 08:31 2.00 Capillary Refill : Less Than 3 Seconds General Appearance: No Apparent Distress, WD/WN, Chronically ill HEENT: PERRL/EOMI, Normal ENT Inspection Neck: Full Range of Motion, Normal Inspection, Non Tender, Supple, Limited Range of Motion (to the right) Respiratory: Chest Non Tender, Lungs Clear, Normal Breath Sounds, No Accessory Muscle Use, No Respiratory Distress Cardiovascular: Regular Rate, Rhythm, No Edema, No Gallop, No JVD, No Murmur Gastrointestinal: Normal Bowel Sounds, Soft Back: Normal Inspection, No CVA Tenderness, No Vertebral Tenderness Extremity: Normal Capillary Refill, Normal Inspection, Normal Range of Motion (except right arm), Non Tender, No Calf Tenderness Neurologic/Psychiatric: Alert, Oriented x3, No Motor/Sensory Deficits, Normal 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 FIM Transfers Therapy Code Descriptions/Definitions Functional [place] Measure: 0=Not Assessed/NA 4=Minimal Assistance 1=Total Assistance 5=Supervision or Setup 2=Maximal Assistance 6=Modified [place] 3=Moderate Assistance 7=Complete [place] Therapy Quality Codes: 6 Independent with activity with or without an assistive device 5 Patient requires set up or clean up by helper. Patient completes activity by themselves 4 Supervision or touching assist (CGA). Mobile provide cues , steadying assist 3 The helper provides less than half the effort to complete the activity 2 The helper provides more than half the effort to complete the activity 1 Dependent. The helper does all the effort to complete an activity 7 Patient refused to complete or attempt activity 9 The patient did not perform the activity before the current illness or injury 88 Not attempted due to Medical conditions or safety concerns Transfers (B, C, W/C) (FIM): 3 Scootin Rollin Roll Left to Right (QC): 4 Supine to/from Sit: 4 Sit to/from Stand: 3 Sit to Lying (QC): 3 Sit to Stand (QC): 4 Chair/Gvn-ri-Yityu Xfer(QC): 4 Bed to/from Chair: 4 Car Transfer (QC): 3 (assist to get her legs into the car) Gait Training Does the Patient Walk?: Yes Gait (FIM): 4 Distance (FIM): 3=150 ft (350ft, 50ft) Distance: 150' Walk 10 feet (QC): 4 Walk 50 ft with 2 Turns(QC): 4 Walk 150 ft (QC): 4 Walking 10ft/uneven surface-QC: 3 Gait Level of Assist: 5 Gait Persons Needed: 1 Gait Assistive Device: Walker Platform Wheelchair Training Does the Pt Use a Wheelchair?: No Stair Training Stair Training: Handrails/: uses walker Stairs (FIM): 2 #of Steps: 4 1 Step (curb) (QC): 3 (mod assist to step up) 4 Steps (QC): 88 12 Steps (QC): 88 Stairs: Pattern: Step to Level of Assist: 4 Balance Picking up an Object (QC): 88 Mental Status/Objective Comprehension: 6 Expression: 6 Social Interaction: 7 Problem Solvin Memory: 5 ADL-Treatment Feedin (increase timing secodanry to slow movement pt education on using RUE duing eating. pt stated she used left hand to eat all of breakfast. pt education on using RUE to complete tasks. ) Eating (QC): 6 Groomin (SBA, FWW) Oral Hygiene (QC): 6 Bathin (CGA while stanidng. noted pt has fear of falling. only stood to wash buttock. ) Bathing Location: L Arm, R Arm, L Upper Leg, R Upper Leg, L Lower Leg (including foot), R Lower Leg (including foot), Chest, Abdomen, Buttocks, Perineal Area Shower/Bathe Self (QC): 4 Upper Extremity Dressin (Extra time) Upper Body Dressing (QC): 4 Lower Extremity Dressin (Mod assist) Lower Body Dressing (QC): 4 On/Off Footwear (QC): 4 Toiletin (INCREASED TIMING TO COMPLETE TASK SECODNARY TO SLOW MOVEMENTS ) Toileting Hygiene (QC): 4 Toilet/Commode Transfer: 4 (INCREASED TIMING TO COMPLETE TASK SECODNARY TO SLOW MOVEMENTS ) Toilet Transfer (QC): 4 Shower: 4 (INCREASED TIMING TO COMPLETE TASK SECODNARY TO SLOW MOVEMENTS MIN A for sit to stand. ) 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 but does not wish to have work-up or treatment CAD with stents in place PVD with stents in place Lives alone CHF UTI's Crackles RLL acute-improved with IS use Elevated LFT's limiting APAP and holding statin Plan: Consult pulmonology is appreciated Stop atorvastatin d/t liver enzymes Stop acetaminophen d/t liver enzymes Repeated echo and viewed results Use tramadol for pain to prevent delirium but does not appear to be working well for her so add Hydrocodone Inpatient rehab protocol Ambulation with walker for fall prevention Regain independence with ADLs with right clavicle fracture and arm in sling Use platform to help navigate ambulation due to clavicle fracture Right arm sling prn to help with the pain IS Control pain with addition of Hydrocodone and that seems to be helping her quite a bit AL at DC? (1) Fall on same level (2) Congestive heart failure (3) B12 deficiency (4) Recurrent UTI (5) Hyperlipemia (6) PVD (peripheral vascular disease) (7) CAD (coronary artery disease) (8) Coronary arteriosclerosis (9) Clavicle fracture (10) Hypertension (11) Lung mass (12) Peripheral vascular disease Reviewed assessment and plan Pain control Monitor labs closely Abx empiric for bronchial source nut UTI likely source also Lung cancer is presumed Needs AL (1) Fall on same level Status: Acute (2) Congestive heart failure Status: Acute (3) B12 deficiency (4) Recurrent UTI (5) Hyperlipemia (6) PVD (peripheral vascular disease) (7) CAD (coronary artery disease) (8) Coronary arteriosclerosis Status: Chronic (9) Clavicle fracture (10) Hypertension Status: Acute (11) Lung mass (12) Peripheral vascular disease Status: Chronic COLLEEN OVIEDO DO Dec 03, 2018 12:17
[2018-12-03 13:23] VITALS: BP 109/69
[2018-12-03 17:10] VITALS: BP 88/58
[2018-12-03] MEDS: GABAPENTIN 100 MG (NEURONTIN) CAP PO SCH (17:54)
[2018-12-03] MEDS: HYDROcodone/APAP 5 MG/325 MG (LORTAB) TAB PO PRN (18:16)
[2018-12-03 18:54] VITALS: BP 137/66
[2018-12-03] MEDS ORDERED: meTOproloL SUCCINATE 50 MG (TOPROL XL) TAB PO SCH (20:00)
[2018-12-03] MEDS: AMITRIPTYLINE 25 MG (ELAVIL) TAB PO SCH (21:31)
[2018-12-04 05:26] LABS: HEMOGLOBIN 9.9 G/DL (11.5-16.0); MEAN PLATELET VOLUME 9.8 FL (7.4-10.4); WHITE BLOOD COUNT 9.2 10^3/uL (4.3-11.0)
[2018-12-04 05:41] LABS: BILIRUBIN,TOTAL 0.3 MG/DL (0.1-1.0); CALCIUM 8.9 MG/DL (8.5-10.1); CREATININE SERUM 1.14 MG/DL (0.60-1.30); TOTAL PROTEIN 5.6 GM/DL (6.4-8.2)
[2018-12-04] MEDS: MULTIVIT W/MINERALS TAB (THERAGRAN M) PO SCH (06:10)
[2018-12-04] MEDS: CYANOCOBALAMIN 1,000 MCG (VITAMIN B-12) TABLET PO SCH (06:10)
[2018-12-04] MEDS: AMOX/CLAV 600 MG/5 ML (AUGMENTIN) 75 ML BTL PO SCH ×2 (06:11→17:50)
[2018-12-04 06:45] VITALS: BP 120/74
[2018-12-04] MEDS: RT-ALBUTEROL SULF 2.5 MG/3 ML PRE-MIX VIAL INH SCH ×3 (08:05→23:54)
--- NOTE | 2018-12-04 08:08 | NUR ---
Albuterol SVN Breathing Tx (TID) was non-administered due to patient is with PT/OT until 0900; RT looked at this board and she is unavailable until 0930.
--- NOTE | 2018-12-04 08:13 | PM&R Progress Note ---
Subjective HPI/CC On Admission Date Seen by Provider: Dec 04, 2018 Time Seen by Provider: 08:30 Chief Complaint: Debility following fall with right clavicle fracture HPI: This is a 88 yoWF clinic pt of Dr. Dobbins and Dr. Marrero cardiology in [place] who has a PMH of known lung mass did not pursue that a few years ago who presents to inpatient rehab following an observation stay after a fall sustaining a right clavicle fracture. She lives at home alone shes been falling a lot and has become quite debilitated and the goal is to return home to independent living with ADL independence and ambulatory status independent. 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 She does recall meeting me. At this current time pt is very well controlled is aware of the additional lung mass that she has no intention of treating and Dr. Hoskins updated her on that fact and overall she's ready to get started to recover and ultimately return back to home. Subjective/Events-last exam Had a BM last night 2.5mg of Lortab is really helping her Heels are painful and she does have neuropathy Toprol xl 25 mg will be given at night Pulse remains a little high at 97 BP is otherwise okay Reviewed therapy notes Conferred with RN Check meds and labs Review of Systems General: Fatigue Musculoskeletal: arm pain, foot pain Objective Exam Vital Signs Vital Signs Date Time Temp Pulse Resp B/P (MAP) Pulse Ox O2 Delivery O2 Flow Rate FiO2 12/04/18 18:54 105/63 (77) 12/04/18 18:51 97.8 101 20 97 Room Air 11/28/18 08:31 2.00 Capillary Refill : Less Than 3 Seconds General Appearance: No Apparent Distress, WD/WN, Chronically ill HEENT: PERRL/EOMI, Normal ENT Inspection Neck: Full Range of Motion, Normal Inspection, Non Tender, Supple, Limited Range of Motion (to the right) Respiratory: Chest Non Tender, Lungs Clear, Normal Breath Sounds, No Accessory Muscle Use, No Respiratory Distress Cardiovascular: Regular Rate, Rhythm, No Edema, No Gallop, No JVD, No Murmur Gastrointestinal: Normal Bowel Sounds, Soft Back: Normal Inspection, No CVA Tenderness, No Vertebral Tenderness Extremity: Normal Capillary Refill, Normal Inspection, Normal Range of Motion (except right arm), Non Tender, No Calf Tenderness Neurologic/Psychiatric: Alert, Oriented x3, No Motor/Sensory Deficits, Normal Mood/Affect, javascript software 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 FIM Transfers Therapy Code Descriptions/Definitions Functional [place] Measure: 0=Not Assessed/NA 4=Minimal Assistance 1=Total Assistance 5=Supervision or Setup 2=Maximal Assistance 6=Modified [place] 3=Moderate Assistance 7=Complete [place] Therapy Quality Codes: 6 Independent with activity with or without an assistive device 5 Patient requires set up or clean up by helper. Patient completes activity by themselves 4 Supervision or touching assist (CGA). Mobile provide cues , steadying assist 3 The helper provides less than half the effort to complete the activity 2 The helper provides more than half the effort to complete the activity 1 Dependent. The helper does all the effort to complete an activity 7 Patient refused to complete or attempt activity 9 The patient did not perform the activity before the current illness or injury 88 Not attempted due to Medical conditions or safety concerns Transfers (B, C, W/C) (FIM): 3 Scootin Rollin Roll Left to Right (QC): 4 Supine to/from Sit: 4 Sit to/from Stand: 3 Sit to Lying (QC): 3 Sit to Stand (QC): 4 Chair/Slx-gh-Qlxsm Xfer(QC): 4 Bed to/from Chair: 4 Car Transfer (QC): 3 (assist to get her legs into the car) Gait Training Does the Patient Walk?: Yes Gait (FIM): 4 Distance (FIM): 3=150 ft (350ft, 50ft) Distance: 150' Walk 10 feet (QC): 4 Walk 50 ft with 2 Turns(QC): 4 Walk 150 ft (QC): 4 Walking 10ft/uneven surface-QC: 3 Gait Level of Assist: 5 Gait Persons Needed: 1 Gait Assistive Device: Walker Platform Wheelchair Training Does the Pt Use a Wheelchair?: No Stair Training Stair Training: Handrails/: uses walker Stairs (FIM): 2 #of Steps: 4 1 Step (curb) (QC): 3 (mod assist to step up) 4 Steps (QC): 88 12 Steps (QC): 88 Stairs: Pattern: Step to Level of Assist: 4 Balance Picking up an Object (QC): 88 Mental Status/Objective Comprehension: 6 Expression: 6 Social Interaction: 7 Problem Solvin Memory: 5 ADL-Treatment Feedin (increase timing secodanry to slow movement pt education on using RUE duing eating. pt stated she used left hand to eat all of breakfast. pt education on using RUE to complete tasks. ) Eating (QC): 6 Groomin (SBA, FWW) Oral Hygiene (QC): 6 Bathin (CGA while stanidng. noted pt has fear of falling. only stood to wash buttock. ) Bathing Location: L Arm, R Arm, L Upper Leg, R Upper Leg, L Lower Leg (including foot), R Lower Leg (including foot), Chest, Abdomen, Buttocks, Perineal Area Shower/Bathe Self (QC): 4 Upper Extremity Dressin (Extra time) Upper Body Dressing (QC): 4 Lower Extremity Dressin (Mod assist) Lower Body Dressing (QC): 4 On/Off Footwear (QC): 4 Toiletin (INCREASED TIMING TO COMPLETE TASK SECODNARY TO SLOW MOVEMENTS ) Toileting Hygiene (QC): 4 Toilet/Commode Transfer: 4 (INCREASED TIMING TO COMPLETE TASK SECODNARY TO SLOW MOVEMENTS ) Toilet Transfer (QC): 4 Shower: 4 (INCREASED TIMING TO COMPLETE TASK SECODNARY TO SLOW MOVEMENTS MIN A for sit to stand. ) 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 but does not wish to have work-up or treatment CAD with stents in place PVD with stents in place Lives alone CHF UTI's Crackles RLL acute-improved with IS use Elevated LFT's limiting APAP and holding statin Plan: Consult pulmonology is appreciated Stop atorvastatin d/t liver enzymes Stop acetaminophen d/t liver enzymes Repeated echo and viewed results Use tramadol for pain to prevent delirium but does not appear to be working well for her so add Hydrocodone Inpatient rehab protocol Ambulation with walker for fall prevention Regain independence with ADLs with right clavicle fracture and arm in sling Use platform to help navigate ambulation due to clavicle fracture Right arm sling prn to help with the pain IS Control pain with addition of Hydrocodone and that seems to be helping her quite a bit AL at [place]? (1) Fall on same level (2) Congestive heart failure (3) B12 deficiency (4) Recurrent UTI (5) Hyperlipemia (6) PVD (peripheral vascular disease) (7) CAD (coronary artery disease) (8) Coronary arteriosclerosis (9) Clavicle fracture (10) Hypertension (11) Lung mass (12) Peripheral vascular disease Reviewed assessment and plan Pain control Monitor labs closely Abx empiric for bronchial source nut UTI likely source also Lung cancer is presumed Needs AL (1) Fall on same level Status: Acute (2) Congestive heart failure Status: Acute (3) B12 deficiency (4) Recurrent UTI (5) Hyperlipemia (6) PVD (peripheral vascular disease) (7) CAD (coronary artery disease) (8) Coronary arteriosclerosis Status: Chronic (9) Clavicle fracture (10) Hypertension Status: Acute (11) Lung mass (12) Peripheral vascular disease Status: Chronic COLLEEN OVIEDO DO Dec 04, 2018 08:13
--- NOTE | 2018-12-04 08:47 | Occupational Ther Daily Note ---
OT Current Status-Daily Note Subjective pt sitting in chair upon OT arrival. pt agreed to OT TX session with focus on increasing independence with ADLS and functional transfers. pt c/o 1/10 pain in right shoulder. post OT Session pt c.o 10 pain in right shoulder Mental Status/Objective Patient Orientation: Normal For Age Therapy Code Descriptions/Definitions Functional [place] Measure: 0=Not Assessed/NA 4=Minimal Assistance 1=Total Assistance 5=Supervision or Setup 2=Maximal Assistance 6=Modified [place] 3=Moderate Assistance 7=Complete [place] ADL-Treatment Therapy Code Descriptions/Definitions Functional [place] Measure: 0=Not Assessed/NA 4=Minimal Assistance 1=Total Assistance 5=Supervision or Setup 2=Maximal Assistance 6=Modified [place] 3=Moderate Assistance 7=Complete [place] Therapy Quality Codes: 6 Independent with activity with or without an assistive device 5 Patient requires set up or clean up by helper. Patient completes activity by themselves 4 Supervision or touching assist (CGA). [place] provide cues , steadying assist 3 The helper provides less than half the effort to complete the activity 2 The helper provides more than half the effort to complete the activity 1 Dependent. The helper does all the effort to complete an activity 7 Patient refused to complete or attempt activity 9 The patient did not perform the activity before the current illness or injury 88 Not attempted due to Medical conditions or safety concerns Eating (FIM): 6 (increase time ) Eating (QC): 6 Grooming (FIM): 6 (standing at sink with platform walker. brush hair, wash hands) Oral Hygiene (QC): 6 Bathing (FIM): 5 (SPV while standing for safety/ balance. pt required increase timing fo rsafety/ balance. ) Bathing Location: L Arm, R Arm, L Upper Leg, R Upper Leg, L Lower Leg (including foot), R Lower Leg (including foot), Chest, Abdomen, Buttocks, Perineal Area Shower/Bathe Self (QC): 4 Upper Body (FIM): 6 (INCREASED TIMING button up shirt ) Upper Body Dressing (QC): 6 Lower Body Dressing (FIM): 5 (INCREASED TIMINGbil socks, pants, underpants, use of AE. pt required MIN A for sit to stand to pull up pants. ) Lower Body Dressing (QC): 4 On/Off Footwear (QC): 6 (use of sock aid, tre socks ) Toileting (FIM): 4 (reqquired MIN A to perform sit to stand from toilet) Toileting Hygiene (QC): 4 Transfers (B, C, W/C) (FIM): 4 (required MIN A to perform sit to stnad ) Toilet/Commode Transfer (FIM): 4 Toilet Transfer (QC): 4 Shower Transfer(FIM): 5 (use of GB ) pt required INCREASED TIMING to perform all ADLS and MIN A for sit to stands this date. post OT session. pt sitting in chair, call light, phone, tray within reach, all needs met. Education OT Patient Education: Progress toward Goal/Update tx plan, Purpose of tx/functional activities, Reviewed precautions, Safety issues, Transfer techniques, Use of adapted equipment Teaching Recipient: Patient Teaching Methods: Demonstration, Discussion Response to Teaching: Verbalize Understanding, Return Demonstration OT Short Term Goals Short Term Goals Time Frame: Dec 06, 2018 Eating(FIM): 6 Grooming(FIM): 5 Bathing(FIM): 4 Bathing Location: L Arm, R Arm, L Upper Leg, R Upper Leg, L Lower Leg (including foot), R Lower Leg (including foot), Chest, Abdomen, Buttocks, Perineal Area Upper Body Dressing(FIM): 4 Lower Body Dressing(FIM): 4 Toileting(FIM): 4 Transfers (B,C,W/C) (FIM): 4 Toilet/Commode Transfer(FIM): 4 Shower Transfer(FIM): 4 Comprehension(FIM): 6 Expression(FIM): 6 Social Interaction(FIM): 7 Problem Solving(FIM): 5 Memory(FIM): 5 Additional Short Term Goals: 1-Demonstrate ADL Tasks, 2-Verbalize Understanding, 3-ImproveStrength/Desean 1=Demonstrate adherence to instructed precautions during ADL tasks. 2=Patient will verbalize/demonstrate understanding of assistive devic es/modifications for ADL. 3=Patient will improve strength/tolerance for activity to enable patient to perform ADL's. OT Shelter Goals Shelter Goals Time Frame: Dec 20, 2018 Eating (FIM): 7 Eating (QC): 6 Groomin Oral Hygiene (QC): 6 Bathing(FIM): 6 Bathing Location: L Arm, R Arm, L Upper Leg, R Upper Leg, L Lower Leg (includ ing foot), R Lower Leg (including foot), Chest, Abdomen, Buttocks, Perineal Area Shower/Bathe Self (QC): 6 Upper Body Dressing(FIM): 6 Upper Body Dressing (QC): 6 Lower Body Dressing(FIM): 6 Lower Body Dressing (QC): 6 On/Off Footwear (QC): 6 Toileting(FIM): 6 Toileting Hygiene (QC): 6 Transfers (B,C,W/C) (FIM): 6 Toilet/Commode Transfer(FIM): 6 Toilet/Commode Transfer (QC): 6 Shower Transfer(FIM): 6 Comprehension(FIM): 6 Expression (FIM): 6 Social Interaction(FIM): 7 Problem Solving(FIM): 5 Memory(FIM): 5 Additional Goals: 1-Demonstrate ADL Tasks, 2-Verbalize Understanding, 3- ImproveStrength/Desean 1=Demonstrate adherence to instructed precautions during ADL tasks. 2=Patient will verbalize/demonstrate understanding of assistive devices/modifications for ADL. 3=Patient will improve strength/tolerance for activity to enable patient to perform ADL's. OT Education/Plan Problem List/Assessment Assessment: Decreased Activ Tolerance, Decreased UE Strength, Impaired Funct Balance, Impaired Self-Care Skills pt presents with functional limitations affecting areas of ADLS and functional t ransfers with the above mention deficits. pt would benefit from skilled OT services to increase independence with ADL and functional transfers. Discharge Recommendations Plan/Recommendations: Continue POC Therapy D/C Recommendations: Assisted Living Equpiment Recommendations-D/C: Community Music Therapist, Sock Aide, Dressing Stick, Toilet Riser Treatment Plan/Plan of Care Treatment,Training & Education: Yes Patient would benefit from OT for education, treatment and training to promote independence in ADL's, mobility, safety and/or upper extremity function for ADL's. Plan of Care: ADL Retraining, Caregiver Training, Functional Mobility, Group E xercise/Act as Ind, UE Funct Exercise/Act Treatment Duration: Dec 20, 2018 Frequency: At least 5 of 7 days/Wk (IRF) Estimated Hrs Per Day: 1 hour per day (60-90 minutes per day) Agreement: Yes Rehab Potential: Good Time/GCodes Start Time: 08:00 Stop Time: 09:00 Billed Treatment Time ADL 60 minutes, 4 units ANTONETTE GUEVARA OT Dec 04, 2018 08:47
--- NOTE | 2018-12-04 09:06 | Cardiology Progress Note ---
Subjective Date Seen by Provider: Dec 04, 2018 Time Seen by Provider: 09:03 Subjective/Events-last exam Patient is with OT, denies any further episode of chest pain. Denies dyspnea. Objective-Cardiology Exam Last Set of Vital Signs Vital Signs 11/28/18 12/04/18 08:31 06:45 Temp 97.6 Pulse 97 Resp 18 B/P (MAP) 120/74 (89) Pulse Ox 93 O2 Delivery Room Air O2 Flow Rate 2.00 Capillary Refill : Less Than 3 Seconds I&O Intake and Output 12/04/18 00:00 Intake Total 1200 ml Balance 1200 ml Intake Oral 1200 ml # Voids 7 General: Alert, Oriented X3, Cooperative, No Acute Distress HEENT: Atraumatic, PERRLA Neck: Supple, No JVD, No Thyromegaly Lungs: Clear to Auscultation, Normal Air Movement Heart: Normal S1, Normal S2, No Murmurs, Other (tachycardia) Abdomen: Normal Bowel Sounds, Soft, No Tenderness, No Hepatosplenomegaly, No Masses Extremities: No Clubbing, No Cyanosis, No Edema, No Tenderness/Swelling Skin: No Rashes, No Breakdown, No Significant Lesion Neuro: Normal Speech, Strength at 5/5 X4 Ext, Normal Tone, Sensation Intact Psych/Mental Status: Mental Status NL, Mood NL Results Lab Laboratory Tests 12/04/18 05:10 A/P-Cardiology Admission Diagnosis Chest pain CAD CHF HTN Assessment/Plan Chest pain, non specific etiology, having right sided chest and shoulder pain, atypical in nature, secondary to clavicle fracture Tachycardia, sinus, persistent, cannot tolerate a higher dose BB due to hypotension,continue to monitor. CAD- reported history of stent placement in the past. Follows with Dr. Marrero as outpatient. CHF- 2D Echo done November 2018 revealed EF 35-40%. Maintained on Entresto, beta fadi. Labile HTN, continue on current medications and continue to monitor. 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 Managed by primary care team Elevated LFT's- Lipitor d/c'd. underwent Liver US last week which was WNL, improving, continue to monitor History of frequent falls at home Right clavicle fracture secondary to fall. Clinical Quality Measures DVT/VTE Risk/Contraindication: Risk Factor Score Per Nursin RFS Level Per Nursing on Admit: 4+=Very High TARIK NICOLE Dec 04, 2018 09:05
[2018-12-04 09:53] VITALS: BP 120/71
[2018-12-04] MEDS: SACUBITRIL/VALSARTAN 24/26 MG (ENTRESTO) TABLET PO SCH ×2 (09:56→20:57)
[2018-12-04] MEDS: ASPIRIN 81 MG CHEW (CHILDREN'S ASA) PO SCH (09:56)
[2018-12-04] MEDS: ENOXAPARIN 40 MG/0.4 ML (LOVENOX) SYR SC SCH (09:57)
[2018-12-04] MEDS: LUTEIN 40 MG PO SCH (09:58)
[2018-12-04] MEDS: SENNA W/DOCUSATE (SENOKOT S) TABLET PO SCH ×2 (09:58→22:00)
[2018-12-04] MEDS: MOVE FREE JOINT HEALTH PO SCH (09:58)
--- NOTE | 2018-12-04 10:51 | Cardiology Progress Note ---
Subjective Date Seen by Provider: Dec 04, 2018 Time Seen by Provider: 10:50 Subjective/Events-last exam Patient is feeling better, no new complaint Review of Systems General: No Chills, No Night Sweats, No Fatigue, No Malaise, No Appetite, No Other HEENT: No Head Aches, No Visual Changes, No Eye Pain, No Ear Pain, No Dysphasia, No Sinus Congestion, No Post Nasal Drip, No Sore Throat, No Other Pulmonary: No Dyspnea, No Cough, No Pleuritic Chest Pain, No Other Cardiovascular: No: Chest Pain, Palpitations, Orthopnea, Paroxysmal Noc. Dyspnea, Edema, Lt Headedness, Other Objective-Cardiology Exam Last Set of Vital Signs Vital Signs 11/28/18 12/04/18 12/04/18 08:31 06:45 09:53 Temp 97.6 Pulse 98 Resp 18 B/P (MAP) 120/71 (87) Pulse Ox 97 O2 Delivery Room Air O2 Flow Rate 2.00 Capillary Refill : Less Than 3 Seconds I&O Intake and Output 12/04/18 00:00 Intake Total 1200 ml Balance 1200 ml Intake Oral 1200 ml # Voids 7 General: Alert, Oriented X3, Cooperative, No Acute Distress HEENT: Atraumatic, PERRLA Neck: Supple, No JVD, No Thyromegaly Lungs: Clear to Auscultation, Normal Air Movement Heart: Normal S1, Normal S2, No Murmurs, Other (tachycardia) Abdomen: Normal Bowel Sounds, Soft, No Tenderness, No Hepatosplenomegaly, No Masses Extremities: No Clubbing, No Cyanosis, No Edema, No Tenderness/Swelling Skin: No Rashes, No Breakdown, No Significant Lesion Neuro: Normal Speech, Strength at 5/5 X4 Ext, Normal Tone, Sensation Intact Psych/Mental Status: Mental Status NL, Mood NL Results Lab Laboratory Tests 12/04/18 05:10 A/P-Cardiology Admission Diagnosis Chest pain CAD CHF HTN Assessment/Plan Chest pain, non specific etiology, having right sided chest and shoulder pain, atypical in nature, secondary to clavicle fracture Tachycardia, sinus, persistent, cannot tolerate a higher dose BB due to hypotension,continue to monitor. CAD- reported history of stent placement in the past. Follows with Dr. Marrero as outpatient. CHF- 2D Echo done November 2018 revealed EF 35-40%. Maintained on Entresto, beta fadi. Labile HTN, better control at this time, continue on current medications and continue to monitor. 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 Managed by primary care team Elevated LFT's- Lipitor d/c'd. underwent Liver US last week which was WNL, improving, continue to monitor History of frequent falls at home Right clavicle fracture secondary to fall. Clinical Quality Measures DVT/VTE Risk/Contraindication: Risk Factor Score Per Nursin RFS Level Per Nursing on Admit: 4+=Very High NICOLE DE LOS SANTOS MD Dec 04, 2018 10:51
--- NOTE | 2018-12-04 10:55 | Cardiology Progress Note ---
Subjective Date Seen by Provider: Dec 04, 2018 Time Seen by Provider: 10:54 Subjective/Events-last exam patient is sitting in a chair, comfortable, no new complaint Review of Systems General: No Chills, No Night Sweats, No Fatigue, No Malaise, No Appetite, No Other HEENT: No Head Aches, No Visual Changes, No Eye Pain, No Ear Pain, No Dysphasia, No Sinus Congestion, No Post Nasal Drip, No Sore Throat, No Other Pulmonary: No Dyspnea, No Cough, No Pleuritic Chest Pain, No Other Cardiovascular: No: Chest Pain, Palpitations, Orthopnea, Paroxysmal Noc. Dyspnea, Edema, Lt Headedness, Other Objective-Cardiology Exam Last Set of Vital Signs Vital Signs 11/28/18 12/04/18 12/04/18 08:31 06:45 09:53 Temp 97.6 Pulse 98 Resp 18 B/P (MAP) 120/71 (87) Pulse Ox 97 O2 Delivery Room Air O2 Flow Rate 2.00 Capillary Refill : Less Than 3 Seconds I&O Intake and Output 12/04/18 00:00 Intake Total 1200 ml Balance 1200 ml Intake Oral 1200 ml # Voids 7 General: Alert, Oriented X3, Cooperative, No Acute Distress HEENT: Atraumatic, PERRLA Neck: Supple, No JVD, No Thyromegaly Lungs: Clear to Auscultation, Normal Air Movement Heart: Normal S1, Normal S2, No Murmurs, Other (tachycardia) Abdomen: Normal Bowel Sounds, Soft, No Tenderness, No Hepatosplenomegaly, No Masses Extremities: No Clubbing, No Cyanosis, No Edema, No Tenderness/Swelling Skin: No Rashes, No Breakdown, No Significant Lesion Neuro: Normal Speech, Strength at 5/5 X4 Ext, Normal Tone, Sensation Intact Psych/Mental Status: Mental Status NL, Mood NL Results Lab Laboratory Tests 12/04/18 05:10 A/P-Cardiology Admission Diagnosis Chest pain CAD CHF HTN Assessment/Plan Chest pain, non specific etiology, having right sided chest and shoulder pain, atypical in nature, secondary to clavicle fracture, reporting improvement Sinus tachycardia, better controlled at this time, continue on current medication and monitor CAD- reported history of stent placement in the past. Follows with Dr. Marrero as outpatient. CHF- 2D Echo done November 2018 revealed EF 35-40%. Maintained on Entresto, beta fadi. Labile HTN, better control at this time, continue on current medications and con tinue to monitor. 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 Managed by primary care team Elevated LFT's- Lipitor d/c'd. underwent Liver US last week which was WNL, improving, continue to monitor History of frequent falls at home Right clavicle fracture secondary to fall. Clinical Quality Measures DVT/VTE Risk/Contraindication: Risk Factor Score Per Nursin RFS Level Per Nursing on Admit: 4+=Very High NICOLE DE LOS SANTOS MD Dec 04, 2018 10:55
--- NOTE | 2018-12-04 11:02 | Physical Therapy Daily Note ---
PT Daily Note-Current Subjective Pt. states she feels she is still so inconsistent with TRFs and isnt sure what her DC plan will be. "I am trying to avoid going to assisted living" Pain Numeric Pain Scale: 4 Location: Right Location Body Site: Shoulder Pain Description: Ache Mental Status Patient Orientation: Normal For Age Transfers Therapy Code Descriptions/Definitions Functional [place] Measure: 0=Not Assessed/NA 4=Minimal Assistance 1=Total Assistance 5=Supervision or Setup 2=Maximal Assistance 6=Modified [place] 3=Moderate Assistance 7=Complete [place] Therapy Quality Codes: 6 Independent with activity with or without an assistive device 5 Patient requires set up or clean up by helper. Patient completes activity by themselves 4 Supervision or touching assist (CGA). [place] provide cues , steadying assist 3 The helper provides less than half the effort to complete the activity 2 The helper provides more than half the effort to complete the activity 1 Dependent. The helper does all the effort to complete an activity 7 Patient refused to complete or attempt activity 9 The patient did not perform the activity before the current illness or injury 88 Not attempted due to Medical conditions or safety concerns Transfers (B, C, W/C) (FIM): 3 Scootin Sit to/from Stand: 3 Car Transfer (QC): 4 pt. in chair with shaylee level raised required mod assist 5/5 trials, pt. uses rocking momentum on 3 count and requires instruction for forward wt shift as well as assistance to facilitate forward wt shift . Weight Bearing Full Weight Bearing Full Weight Bearing sling right UE; Physician reports she may use her right UE for use in a platform walker. Gait Training Does the Patient Walk?: Yes Gait (FIM): 4 Distance (FIM): 3=150 ft (165x2) Gait Level of Assist: 4 Gait Persons Needed: 1 Gait Assistive Device: Walker Platform slow, heavy wt bearing on FWW, decreased step length, ineven step length , good amt wt bearing on FWW Exercises Seated Therapy Exercises: Ankle pumps, Sit to stand, Long arc quads, Hip flexion, Hip abd/add Seated Reps: 12 NuStep Minutes: 15 NuStep Workload: 5 Treatments leg presses on nustep x 15 Assessment Current Status: Fair Progress continues dependent for sup to sit and sit to stand TRFs requiring mod assist with rocking momentum, gait is also vulnerable and requires CGA and instruction at times for managing device around obstacles safely. Pt. would be good asst living candidate PT Short Term Goals Short Term Goals Time Frame: Nov 29, 2018 Transfers (B,C,W/C) (FIM): 4 Gait (FIM): 4 PT Pump Oiler Goals Long-Term Goals PT Long-Term Goals Time Frame: Dec 14, 2018 Transfers (B,C,W/C) (FIM): 6 Sit to Lying (QC): 6 Lying-Sitting on Side/Bed(QC): 6 Sit to Stand (QC): 6 Rollin Roll Left to Right (QC): 6 Chair/[place] Xfer(QC): 6 Car Transfer (QC): 6 Does the Patient Walk: Yes Gait (FIM): 6 Gait distance (FIM): 3=150 ft Walk 10 feet (QC): 6 Walk 10ft-Uneven Surface(QC): 6 Walk 50ft with 2 Turns (QC): 6 Walk 150 ft (QC): 6 Gait Assistive Device: FWW Stairs (FIM): 2 # of Steps: 4 1 Step (curb) (QC): 6 4 Steps (QC): 6 12 Steps (QC): 88 Picking up an Object (QC): 88 PT Plan Treatment/Plan Treatment Plan: Continue Plan of Care Treatment Plan: Bed Mobility, Education, Functional Activity [place], Functional Strength, Group Therapy, Gait, Safety, Therapeutic Exercise, Transfers Treatment Duration: Dec 14, 2018 Frequency: At least 5 of 7 days/Wk (IRF) Estimated Hrs Per Day: 1.5 hours per day Patient and/or Family Agrees t: Yes Safety Risks/Education Patient Education: Gait Training, Transfer Techniques, Correct Positioning, Disease Process, Safety Issues Teaching Recipient: Patient Teaching Methods: Demonstration, Discussion Response to Teaching: Verbalize Understanding, Return Demonstration, Reinforcement Needed Time/GCodes Time In: 1000 Time Out: 1100 Total Billed Treatment Time: 60 Total Billed Treatment 1,EX35m,FA10m,GT15m G Codes Necessary: DARRYL Felix WORK ENVIRONMENT SAFETY INSPECTOR Dec 04, 2018 11:02
--- NOTE | 2018-12-04 13:44 | Speech Therapy Daily Note ---
Speech Daily Progress Note Subjective Date Seen by Provider: Dec 04, 2018 Time Seen by Provider: 00:30 The patient states she feels like she is getting better day by day. Objective The patient completed a series of memory tasks: comparisons and descriptions of 2 items with 90% given minimal verbal cues. Assessment Assessment Current Status: Good Progress Treatment Plan Continue Plan of Care Communication Comprehension: 6 Expression: 6 Social Cognition Social Interaction: 7 Problem Solvin Memory: 5 Speech Short Term Goals Short Term Goals Short Term Goals Patient will demonstrate simple problem solving and memory with 80% accuracy when given minimal cues Comprehension: 6 Expression: 6 Social Interaction: 7 Problem Solvin Memory: 5 Speech [place] Goals Senior Care Goals Patient will improve cognitive-communication necessary for safety and daily living tasks with minimal assist Comprehension: 6 Expression: 6 Social Interaction: 7 Problem Solvin Memory: 5 Speech-Plan Patient/Family Goals Patient/Family Goals: The patient plans on returning home where she lived alone, however her family is exploring the option of assisted living. Treatment Plan Speech Therapy Treatment Plan: Continue Plan of Care The patient is progressing well with skilled therapy. Treatment Duration: Dec 06, 2018 Frequency: 5 times per week Estimated Hrs Per Day: .5 hour per day Rehab Potential: Good Barriers to Learning: Patient has mild cognitive deficits, however these are resolving Pt/Family Agrees to Plan: Yes Safety Risks/Education Teaching Recipient: Patient Teaching Methods: Demonstration Response to Teaching: Verbalize Understanding, Return Demonstration Education Topics Provided: Continued with safety and communication of her needs/wants Time Speech Therapy Time In: 09:00 Speech Therapy Time Out: 09:30 Total Billed Time: 30 Billed Treatment Time 1, KAYLEN Bowden Dec 04, 2018 13:44
--- NOTE | 2018-12-04 15:32 | Therapy Group Daily Note ---
Therapy Daily Group Note Patient Education Topic Other List Below (bed mobility; car transfer) Exercises LE Seated Exercise, UE Exercise Session Ratio (pt:therapist): 4:1 Goal of Session: Safety with Transfers Goal Met for this Session: Yes Pt Benefit of Group: Increased Functional Safety, Increased Functional Strength, Socialization Other/Notes Pt ambulated using platform FWW with CGA to [facility] area for OT/PT group. Group consisted of introductions (name, place living, hottest day memory), socialization, seated UE/LE exercises, bed transfers/mobility, car transfers and description of ARU. Pt introduced self appropriately and actively listened to peers. Pt rolled dice for amount of reps needed for seated exercises that are led by pt. Pt verbalized understanding of educational topics by own personal stories and strategies. After therapy, pt sitting in recliner with call light/phone in reach. All needs met in room. Start Time: 13:00 Stop Time: 14:05 Total Billed Treatment Time: 65 Total Billed Treatment visit GRP 65 SHAHNAZ SMITH PT Dec 04, 2018 15:32
[2018-12-04] MEDS: GABAPENTIN 100 MG (NEURONTIN) CAP PO SCH (16:30)
[2018-12-04 18:51] VITALS: BP 98/61
[2018-12-04 18:54] VITALS: BP 105/63
[2018-12-04] MEDS: AMITRIPTYLINE 25 MG (ELAVIL) TAB PO SCH (20:57)
[2018-12-04] MEDS: HYDROcodone/APAP 5 MG/325 MG (LORTAB) TAB PO PRN (20:58)
[2018-12-05 05:05] VITALS: BP 136/76
[2018-12-05] MEDS: CYANOCOBALAMIN 1,000 MCG (VITAMIN B-12) TABLET PO SCH (06:16)
[2018-12-05] MEDS: MULTIVIT W/MINERALS TAB (THERAGRAN M) PO SCH (06:16)
[2018-12-05] MEDS: AMOX/CLAV 600 MG/5 ML (AUGMENTIN) 75 ML BTL PO SCH ×2 (06:16→16:15)
[2018-12-05] MEDS: SENNA W/DOCUSATE (SENOKOT S) TABLET PO SCH ×2 (08:11→20:43)
--- NOTE | 2018-12-05 08:11 | Cardiology Progress Note ---
Subjective Date Seen by Provider: Dec 05, 2018 Time Seen by Provider: 08:10 Subjective/Events-last exam Patient is sitting up in chair, eating breakfast, denies any chest pain or palpitations. Noted to be slightly tachycardic this morning. Objective-Cardiology Exam Last Set of Vital Signs Vital Signs 12/05/18 05:05 Temp 97.2 Pulse 102 Resp 18 B/P (MAP) 136/76 (96) Pulse Ox 94 O2 Delivery Room Air Capillary Refill : Less Than 3 Seconds I&O l Intake and Output 12/05/18 00:00 Intake Total 1580 ml Balance 1580 ml Intake Oral 1580 ml # Voids 8 # Bowel Movements 2 General: Alert, Oriented X3, Cooperative, No Acute Distress HEENT: Atraumatic, PERRLA Neck: Supple, No JVD, No Thyromegaly Lungs: Clear to Auscultation, Normal Air Movement Heart: Normal S1, Normal S2, No Murmurs, Other (tachycardia) Abdomen: Normal Bowel Sounds, Soft, No Tenderness, No Hepatosplenomegaly, No Masses Extremities: No Clubbing, No Cyanosis, No Edema, No Tenderness/Swelling Skin: No Rashes, No Breakdown, No Significant Lesion Neuro: Normal Speech, Strength at 5/5 X4 Ext, Normal Tone, Sensation Intact Psych/Mental Status: Mental Status NL, Mood NL A/P-Cardiology Admission Diagnosis Chest pain CAD CHF HTN Assessment/Plan Chest pain, non specific etiology, right sided chest and shoulder pain, atypical in nature, secondary to clavicle fracture, reporting improvement Sinus tachycardia, unable to tolerate higher dose of beta fadi secondary to hypotension, continue on current medication and monitor CAD- reported history of stent placement in the past. Follows with Dr. Marrero as outpatient. CHF- 2D Echo done November 2018 revealed EF 35-40%. Maintained on Entresto, beta fadi. Labile HTN, better control at this time, continue on current medications and continue to monitor. 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 Managed by primary care team Elevated LFT's- Lipitor d/c'd. underwent Liver US last week which was WNL, improving, continue to monitor History of frequent falls at home Right clavicle fracture secondary to fall. Clinical Quality Measures DVT/VTE Risk/Contraindication: Risk Factor Score Per Nursin RFS Level Per Nursing on Admit: 4+=Very High TARIK NICOLE Dec 05, 2018 08:11
[2018-12-05] MEDS: ASPIRIN 81 MG CHEW (CHILDREN'S ASA) PO SCH (08:12)
[2018-12-05] MEDS: LUTEIN 40 MG PO SCH (08:12)
[2018-12-05] MEDS: SACUBITRIL/VALSARTAN 24/26 MG (ENTRESTO) TABLET PO SCH ×2 (08:12→20:43)
[2018-12-05] MEDS: MOVE FREE JOINT HEALTH PO SCH (08:13)
[2018-12-05] MEDS: ENOXAPARIN 40 MG/0.4 ML (LOVENOX) SYR SC SCH (08:13)
--- NOTE | 2018-12-05 08:47 | PM&R Progress Note ---
Subjective HPI/CC On Admission Date Seen by Provider: Dec 05, 2018 Time Seen by Provider: 08:30 Chief Complaint: Debility following fall with right clavicle fracture HPI: This is a 88 yoWF clinic pt of Dr. Dobbins and Dr. Marrero cardiology in [place] who has a PMH of known lung mass did not pursue that a few years ago who presents to inpatient rehab following an observation stay after a fall sustaining a right clavicle fracture. She lives at home alone shes been falling a lot and has become quite debilitated and the goal is to return home to independent living with ADL independence and ambulatory status independent. 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 She does recall meeting me. At this current time pt is very well controlled is aware of the additional lung mass that she has no intention of treating and Dr. Hoskins updated her on that fact and overall she's ready to get started to recover and ultimately return back to home. Subjective/Events-last exam Pt doing really well. Lortab of 2.5 really helps her. Heal and foot pain much improved after adjusting Toprol. Using IS. Crackles remain in the right lower lobe. Reviewed therapy notes Conferred with RN Check meds and labs Review of Systems General: Fatigue Musculoskeletal: arm pain Objective Exam Vital Signs Vital Signs Date Time Temp Pulse Resp B/P (MAP) Pulse Ox O2 Delivery O2 Flow Rate FiO2 12/05/18 21:06 92 Room Air 12/05/18 17:14 98.2 101 18 130/75 (93) Capillary Refill : Less Than 3 Seconds General Appearance: No Apparent Distress, WD/WN, Chronically ill HEENT: PERRL/EOMI, Normal ENT Inspection Neck: Full Range of Motion, Normal Inspection, Non Tender, Supple, Limited Range of Motion (to the right) Respiratory: Chest Non Tender, Lungs Clear, Normal Breath Sounds, No Accessory Muscle Use, No Respiratory Distress Cardiovascular: Regular Rate, Rhythm, No Edema, No Gallop, No JVD, No Murmur Gastrointestinal: Normal Bowel Sounds, Soft Back: Normal Inspection, No CVA Tenderness, No Vertebral Tenderness Extremity: Normal Capillary Refill, Normal Inspection, Normal Range of Motion (except right arm), Non Tender, No Calf Tenderness Neurologic/Psychiatric: Alert, Oriented x3, No Motor/Sensory Deficits, Normal Mood/Affect, slip tender II-XII Norm as Tested Skin: Normal Color, Warm/Dry Lymphatic: No Adenopathy Results/Procedures Lab Patient resulted labs reviewed. FIM Transfers Therapy Code Descriptions/Definitions Functional [place] Measure: 0=Not Assessed/NA 4=Minimal Assistance 1=Total Assistance 5=Supervision or Setup 2=Maximal Assistance 6=Modified [place] 3=Moderate Assistance 7=Complete [place] Therapy Quality Codes: 6 Independent with activity with or without an assistive device 5 Patient requires set up or clean up by helper. Patient completes activity by themselves 4 Supervision or touching assist (CGA). [place] provide cues , steadying assist 3 The helper provides less than half the effort to complete the activity 2 The helper provides more than half the effort to complete the activity 1 Dependent. The helper does all the effort to complete an activity 7 Patient refused to complete or attempt activity 9 The patient did not perform the activity before the current illness or injury 88 Not attempted due to Medical conditions or safety concerns Transfers (B, C, W/C) (FIM): 3 Scootin Rollin Roll Left to Right (QC): 4 Supine to/from Sit: 4 Sit to/from Stand: 3 Sit to Lying (QC): 3 Sit to Stand (QC): 4 Chair/Wxf-ak-Tstka Xfer(QC): 4 Bed to/from Chair: 4 Car Transfer (QC): 4 Gait Training Does the Patient Walk?: Yes Gait (FIM): 4 Distance (FIM): 3=150 ft (165x2) Distance: 150' Walk 10 feet (QC): 4 Walk 50 ft with 2 Turns(QC): 4 Walk 150 ft (QC): 4 Walking 10ft/uneven surface-QC: 3 Gait Level of Assist: 4 Gait Persons Needed: 1 Gait Assistive Device: Walker Platform Wheelchair Training Does the Pt Use a Wheelchair?: No Stair Training Stair Training: Handrails/: uses walker Stairs (FIM): 2 #of Steps: 4 1 Step (curb) (QC): 3 (mod assist to step up) 4 Steps (QC): 88 12 Steps (QC): 88 Stairs: Pattern: Step to Level of Assist: 4 Balance Picking up an Object (QC): 88 Mental Status/Objective Comprehension: 6 Expression: 6 Social Interaction: 7 Problem Solvin Memory: 5 ADL-Treatment Feedin (increase time ) Eating (QC): 6 Groomin (standing at sink with platform walker. brush hair, wash hands) Oral Hygiene (QC): 6 Bathin (SPV while standing for safety/ balance. pt required increase timing fo rsafety/ balance. ) Bathing Location: L Arm, R Arm, L Upper Leg, R Upper Leg, L Lower Leg (including foot), R Lower Leg (including foot), Chest, Abdomen, Buttocks, Perineal Area Shower/Bathe Self (QC): 4 Upper Extremity Dressin (INCREASED TIMING button up shirt ) Upper Body Dressing (QC): 6 Lower Extremity Dressin (INCREASED TIMINGbil socks, pants, underpants, use of AE. pt required MIN A for sit to stand to pull up pants. ) Lower Body Dressing (QC): 4 On/Off Footwear (QC): 6 (use of sock aid, tre socks ) Toiletin (reqquired MIN A to perform sit to stand from toilet) Toileting Hygiene (QC): 4 Toilet/Commode Transfer: 4 Toilet Transfer (QC): 4 Shower: 5 (use of GB ) 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 but does not wish to have work-up or treatment CAD with stents in place PVD with stents in place Lives alone CHF UTI's Crackles RLL acute-improved with IS use Elevated LFT's limiting APAP and holding statin Plan: Consult pulmonology is appreciated Stop atorvastatin d/t liver enzymes Stop acetaminophen d/t liver enzymes Repeated echo and viewed results Use tramadol for pain to prevent delirium but does not appear to be working well for her so add Hydrocodone Inpatient rehab protocol Ambulation with walker for fall prevention Regain independence with ADLs with right clavicle fracture and arm in sling Use platform to help navigate ambulation due to clavicle fracture Right arm sling prn to help with the pain IS Control pain with addition of Hydrocodone and that seems to be helping her quite a bit AL at MS? (1) Fall on same level (2) Congestive heart failure (3) B12 deficiency (4) Recurrent UTI (5) Hyperlipemia (6) PVD (peripheral vascular disease) (7) CAD (coronary artery disease) (8) Coronary arteriosclerosis (9) Clavicle fracture (10) Hypertension (11) Lung mass (12) Peripheral vascular disease Reviewed assessment and plan Pain control Monitor labs closely Abx empiric for bronchial source nut UTI likely source also Lung cancer is presumed Needs AL (1) Fall on same level Status: Acute (2) Congestive heart failure Status: Acute (3) B12 deficiency (4) Recurrent UTI (5) Hyperlipemia (6) PVD (peripheral vascular disease) (7) CAD (coronary artery disease) (8) Coronary arteriosclerosis Status: Chronic (9) Clavicle fracture (10) Hypertension Status: Acute (11) Lung mass (12) Peripheral vascular disease Status: Chronic COLLEEN OVIEDO DO Dec 05, 2018 08:47
[2018-12-05] MEDS: RT-ALBUTEROL SULF 2.5 MG/3 ML PRE-MIX VIAL INH SCH ×2 (09:22→20:37)
[2018-12-05] MEDS: HYDROcodone/APAP 5 MG/325 MG (LORTAB) TAB PO PRN (10:31)
--- NOTE | 2018-12-05 10:44 | Speech Therapy Daily Note ---
Speech Daily Progress Note Subjective Date Seen by Provider: Dec 05, 2018 Time Seen by Provider: 00:30 The patient was resting in her chair when I entered her room for ST session. Objective The patient completed a series of problem solving tasks related to her personal needs and safety scenarios at 90% with minimal verbal and/or visual cuing. Assessment Assessment Current Status: Good Progress Treatment Plan Continue Plan of Care Communication Comprehension: 6 Expression: 6 Social Cognition Social Interaction: 7 Problem Solvin Memory: 5 Speech Short Term Goals Short Term Goals Short Term Goals Patient will demonstrate simple problem solving and memory with 80% accuracy when given minimal cues Comprehension: 6 Expression: 6 Social Interaction: 7 Problem Solvin Memory: 5 Speech [employer] Attendant Goals Penitentiary Goals Patient will improve cognitive-communication necessary for safety and daily living tasks with minimal assist Comprehension: 6 Expression: 6 Social Interaction: 7 Problem Solvin Memory: 5 Speech-Plan Patient/Family Goals Patient/Family Goals: The patient plans on returning home alone. She does realize that she will need to be able to do her daily tasks without help. She has voiced she may have to go to an assisted living facility. Treatment Plan Speech Therapy Treatment Plan: Continue Plan of Care The patient has made good progress with all ST goals. Treatment Duration: Dec 06, 2018 Frequency: 5 times per week Estimated Hrs Per Day: .5 hour per day Rehab Potential: Good Barriers to Learning: Patient has mild cognitive deficit. Pt/Family Agrees to Plan: Yes Safety Risks/Education Teaching Recipient: Patient Teaching Methods: Demonstration, Discussion Response to Teaching: Verbalize Understanding, Return Demonstration Education Topics Provided: Safety within her room and upon her discharge from rehab. Time Speech Therapy Time In: 10:00 Speech Therapy Time Out: 10:30 Total Billed Time: 30 Billed Treatment Time 1, KAYLEN Bowden Dec 05, 2018 10:44
--- NOTE | 2018-12-05 11:02 | Physical Therapy Daily Note ---
PT Daily Note-Current Subjective Pt sitting in chair in room upon arrival. Pt agrees to PT. Pt reports pain has improved. Pain Numeric Pain Scale: 5-Moderate Pain Location: Right Location Body Site: Shoulder Pain Description: Ache, Tightness Mental Status Patient Orientation: Person, Place, Time, Situation Transfers Therapy Code Descriptions/Definitions Functional [place] Measure: 0=Not Assessed/NA 4=Minimal Assistance 1=Total Assistance 5=Supervision or Setup 2=Maximal Assistance 6=Modified [place] 3=Moderate Assistance 7=Complete [place] Therapy Quality Codes: 6 Independent with activity with or without an assistive device 5 Patient requires set up or clean up by helper. Patient completes activity by themselves 4 Supervision or touching assist (CGA). [place] provide cues , steadying assi st 3 The helper provides less than half the effort to complete the activity 2 The helper provides more than half the effort to complete the activity 1 Dependent. The helper does all the effort to complete an activity 7 Patient refused to complete or attempt activity 9 The patient did not perform the activity before the current illness or injury 88 Not attempted due to Medical conditions or safety concerns Scootin Sit to/from Stand: 5 Sit to Stand (QC): 5 Weight Bearing Full Weight Bearing Full Weight Bearing sling right UE; Physician reports she may use her right UE for use in a platform walker. Gait Training Does the Patient Walk?: Yes Gait (FIM): 5 Distance (FIM): 3=150 ft Distance: 150' Walk 10 feet (QC): 5 Walk 50 ft with 2 Turns(QC): 5 Walk 150 ft (QC): 5 Gait Level of Assist: 5 Gait Persons Needed: 1 Gait Assistive Device: Walker Platform Wheelchair Training Does the Pt Use a Wheelchair?: No Exercises NuStep Minutes: 15 NuStep Workload: 5 Treatments Pt transfers from chair elevated with pillows to standing. Pt uses restroom and is able to complete pericare. Pt ambulates in hallway using platform walker. Pt uses NuStep for 15m at WL 5 before short RB. Pt returns to room to rest on pillows in chair. Pt has all needs met, call light next to pt. Assessment Current Status: Good Progress Pt's strength and transfers are improving as well as decreased pain. PT Short Term Goals Short Term Goals Time Frame: Nov 29, 2018 Transfers (B,C,W/C) (FIM): 4 Gait (FIM): 4 PT Mcc Goals Mcc Goals PT Mcc Goals Time Frame: Dec 14, 2018 Transfers (B,C,W/C) (FIM): 6 Sit to Lying (QC): 6 Lying-Sitting on Side/Bed(QC): 6 Sit to Stand (QC): 6 Rollin Roll Left to Right (QC): 6 Chair/Rsb-xh-Estax Xfer(QC): 6 Car Transfer (QC): 6 Does the Patient Walk: Yes Gait (FIM): 6 Gait distance (FIM): 3=150 ft Walk 10 feet (QC): 6 Walk 10ft-Uneven Surface(QC): 6 Walk 50ft with 2 Turns (QC): 6 Walk 150 ft (QC): 6 Gait Assistive Device: FWW Stairs (FIM): 2 # of Steps: 4 1 Step (curb) (QC): 6 4 Steps (QC): 6 12 Steps (QC): 88 Picking up an Object (QC): 88 PT Plan Problem List Problem List: Activity Tolerance, Functional Strength, Transfer Treatment/Plan Treatment Plan: Continue Plan of Care Treatment Plan: Bed Mobility, Education, Functional Activity [place], Functional Strength, Group Therapy, Gait, Safety, Therapeutic Exercise, Transfers Treatment Duration: Dec 14, 2018 Frequency: At least 5 of 7 days/Wk (IRF) Estimated Hrs Per Day: 1.5 hours per day Patient and/or Family Agrees t: Yes Safety Risks/Education Patient Education: Gait Training, Transfer Techniques, Correct Positioning, Safety Issues Teaching Recipient: Patient Teaching Methods: Discussion Response to Teaching: Verbalize Understanding Time/GCodes Time In: 900 Time Out: 945 Total Billed Treatment Time: 45 Total Billed Treatment 1, GT (15m), FA (15m) & EX (15m) G Codes Necessary: IRENE Pagan PEST CONTROL APPLICATOR Dec 05, 2018 11:02
--- NOTE | 2018-12-05 12:54 | Occupational Ther Daily Note ---
OT Current Status-Daily Note Subjective Pt sitting in chair, agrees to therapy. Pt reports 5/10 pain in right shoulder, states she recently had a pain pill Mental Status/Objective Therapy Code Descriptions/Definitions Functional [place] Measure: 0=Not Assessed/NA 4=Minimal Assistance 1=Total Assistance 5=Supervision or Setup 2=Maximal Assistance 6=Modified [place] 3=Moderate Assistance 7=Complete [place] ADL-Treatment Pt declined shower, but would like to complete sponge bath. Pt required min assist to doff robe. Used adaptive equipment to doff pants, underwear, and shoes with increased time and skilled cues for technique. Upper body bathing completed with min assist to thoroughly wash left UE. Pt able to wash bilateral upper legs, dirk area, buttocks, and lower legs. Don button up shirt with min assist to pull around back. Pt able to fasten buttons with increased time. Pt able to thread bilateral LE into pants with increased time. Sit to stand with min assist to complete pant hike. Donned shoes with SBA and increased time. Pt requires occasional rest breaks during ADL tasks. Increased time to complete ADLs. Therapy Code Descriptions/Definitions Functional [place] Measure: 0=Not Assessed/NA 4=Minimal Assistance 1=Total Assistance 5=Supervision or Setup 2=Maximal Assistance 6=Modified [place] 3=Moderate Assistance 7=Complete [place] Therapy Quality Codes: 6 Independent with activity with or without an assistive device 5 Patient requires set up or clean up by helper. Patient completes activity by themselves 4 Supervision or touching assist (CGA). [place] provide cues , steadying assist 3 The helper provides less than half the effort to complete the activity 2 The helper provides more than half the effort to complete the activity 1 Dependent. The helper does all the effort to complete an activity 7 Patient refused to complete or attempt activity 9 The patient did not perform the activity before the current illness or injury 88 Not attempted due to Medical conditions or safety concerns Bathing (FIM): 4 Upper Body (FIM): 4 Lower Body Dressing (FIM): 4 Other Treatment Pt completed sit to stand x5 trials to increase strength and safety for transfers. Pt required min assist for sit to stand transfers. Rest breaks between trials. Pt sitting in chair with needs met after session. OT Short Term Goals Short Term Goals Time Frame: Dec 06, 2018 Eating(FIM): 6 Grooming(FIM): 5 Bathing(FIM): 4 Bathing Location: L Arm, R Arm, L Upper Leg, R Upper Leg, L Lower Leg (including foot), R Lower Leg (including foot), Chest, Abdomen, Buttocks, Perineal Area Upper Body Dressing(FIM): 4 Lower Body Dressing(FIM): 4 Toileting(FIM): 4 Transfers (B,C,W/C) (FIM): 4 Toilet/Commode Transfer(FIM): 4 Shower Transfer(FIM): 4 Comprehension(FIM): 6 Expression(FIM): 6 Social Interaction(FIM): 7 Problem Solving(FIM): 5 Memory(FIM): 5 Additional Short Term Goals: 1-Demonstrate ADL Tasks, 2-Verbalize Understanding, 3-ImproveStrength/[place] 1=Demonstrate adherence to instructed precautions during ADL tasks. 2=Patient will verbalize/demonstrate understanding of assistive devices/modifications for ADL. 3=Patient will improve strength/tolerance for activity to enable patient to perform ADL's. OT Group Home Goals Group Home Goals Time Frame: Dec 20, 2018 Eating (FIM): 7 Eating (QC): 6 Groomin Oral Hygiene (QC): 6 Bathing(FIM): 6 Bathing Location: L Arm, R Arm, L Upper Leg, R Upper Leg, L Lower Leg (including foot), R Lower Leg (including foot), Chest, Abdomen, Buttocks, Pe rineal Area Shower/Bathe Self (QC): 6 Upper Body Dressing(FIM): 6 Upper Body Dressing (QC): 6 Lower Body Dressing(FIM): 6 Lower Body Dressing (QC): 6 On/Off Footwear (QC): 6 Toileting(FIM): 6 Toileting Hygiene (QC): 6 Transfers (B,C,W/C) (FIM): 6 Toilet/Commode Transfer(FIM): 6 Toilet/Commode Transfer (QC): 6 Shower Transfer(FIM): 6 Comprehension(FIM): 6 Expression (FIM): 6 Social Interaction(FIM): 7 Problem Solving(FIM): 5 Memory(FIM): 5 Additional Goals: 1-Demonstrate ADL Tasks, 2-Verbalize Understanding, 3- ImproveStrength/[place] 1=Demonstrate adherence to instructed precautions during ADL tasks. 2=Patient will verbalize/demonstrate understanding of assistive devices/modifications for ADL. 3=Patient will improve strength/tolerance for activity to enable patient to perform ADL's. OT Education/Plan Discharge Recommendations Plan/Recommendations: Continue POC Treatment Plan/Plan of Care Patient would benefit from OT for education, treatment and training to promote independence in ADL's, mobility, safety and/or upper extremity function for ADL's. Plan of Care: ADL Retraining, Caregiver Training, Functional Mobility, Group Exercise/Act as Ind, UE Funct Exercise/Act Treatment Duration: Dec 20, 2018 Frequency: At least 5 of 7 days/Wk (IRF) Estimated Hrs Per Day: 1 hour per day (60-90 minutes per day) Agreement: Yes Rehab Potential: Good Time/GCodes Start Time: 10:30 Stop Time: 11:45 Total Time Billed (hr/min): 75 Billed Treatment Time 1 visit, ADLx4(60minutes), FA(15minutes) JOANNA LORD OT Dec 05, 2018 12:54
--- NOTE | 2018-12-05 14:55 | Physical Therapy Daily Note ---
PT Daily Note-Current Subjective Pt sitting in chair elevated by pillows upon arrival. Pt agrees to PT. Pain Numeric Pain Scale: 5-Moderate Pain Location: Right Location Body Site: Shoulder Pain Description: Ache, Tightness Mental Status Patient Orientation: Person, Place, Time, Situation Transfers Therapy Code Descriptions/Definitions Functional [place] Measure: 0=Not Assessed/NA 4=Minimal Assistance 1=Total Assistance 5=Supervision or Setup 2=Maximal Assistance 6=Modified [place] 3=Moderate Assistance 7=Complete [place] Therapy Quality Codes: 6 Independent with activity with or without an assistive device 5 Patient requires set up or clean up by helper. Patient completes activity by themselves 4 Supervision or touching assist (CGA). [place] provide cues , steadying assist 3 The helper provides less than half the effort to complete the activity 2 The helper provides more than half the effort to complete the activity 1 Dependent. The helper does all the effort to complete an activity 7 Patient refused to complete or attempt activity 9 The patient did not perform the activity before the current illness or injury 88 Not attempted due to Medical conditions or safety concerns Scootin Sit to/from Stand: 4 Sit to Stand (QC): 4 Weight Bearing Full Weight Bearing Full Weight Bearing sling right UE; Physician reports she may use her right UE for use in a platform walker. Gait Training Does the Patient Walk?: Yes Gait (FIM): 5 Distance (FIM): 3=150 ft Distance: 150' Walk 10 feet (QC): 5 Walk 50 ft with 2 Turns(QC): 5 Walk 150 ft (QC): 5 Gait Level of Assist: 5 Gait Persons Needed: 1 Gait Assistive Device: Walker Platform Wheelchair Training Does the Pt Use a Wheelchair?: No Exercises Standing: Hip Abduction, Hamstring curls, Heel/toe raises, 3 way Ex=Flex, Abd, Ext, Mini squats, Weight shifts Standing Reps: 15 Treatments Pt transfers from chair to standing then ambulates in hallway using platform walker. Pt completes Standing EX at //bars before returning to room to rest. Pt resting in chair on pillows, all needs met & call light in hand. Assessment Current Status: Good Progress Pt tolerates tx well but continues to reports R shoulder pain during tx so ice pack is applied at end of tx. PT Short Term Goals Short Term Goals Time Frame: Nov 29, 2018 Transfers (B,C,W/C) (FIM): 4 Gait (FIM): 4 PT Boots And Shoes Supervisor Goals Boots And Shoes Supervisor Goals PT Boots And Shoes Supervisor Goals Time Frame: Dec 14, 2018 Transfers (B,C,W/C) (FIM): 6 Sit to Lying (QC): 6 Lying-Sitting on Side/Bed(QC): 6 Sit to Stand (QC): 6 Rollin Roll Left to Right (QC): 6 Chair/Ukd-kx-Ksoex Xfer(QC): 6 Car Transfer (QC): 6 Does the Patient Walk: Yes Gait (FIM): 6 Gait distance (FIM): 3=150 ft Walk 10 feet (QC): 6 Walk 10ft-Uneven Surface(QC): 6 Walk 50ft with 2 Turns (QC): 6 Walk 150 ft (QC): 6 Gait Assistive Device: FWW Stairs (FIM): 2 # of Steps: 4 1 Step (curb) (QC): 6 4 Steps (QC): 6 12 Steps (QC): 88 Picking up an Object (QC): 88 PT Plan Problem List Problem List: Activity Tolerance, Functional Strength Treatment/Plan Treatment Plan: Continue Plan of Care Treatment Plan: Bed Mobility, Education, Functional Activity [place], Functional Strength, Group Therapy, Gait, Safety, Therapeutic Exercise, Transfers Treatment Duration: Dec 14, 2018 Frequency: At least 5 of 7 days/Wk (IRF) Estimated Hrs Per Day: 1.5 hours per day Patient and/or Family Agrees t: Yes Safety Risks/Education Patient Education: Gait Training, Transfer Techniques, Correct Positioning, Safety Issues Teaching Recipient: Patient Teaching Methods: Discussion Response to Teaching: Verbalize Understanding Time/GCodes Time In: 1300 Time Out: 1330 Total Billed Treatment Time: 30 Total Billed Treatment 1, GT (15m) & EX (15m) G Codes Necessary: IRENE Pagan CYBER SECURITY SPECIALIST Dec 05, 2018 14:55
[2018-12-05] MEDS: GABAPENTIN 100 MG (NEURONTIN) CAP PO SCH (16:15)
--- NOTE | 2018-12-05 16:46 | Cardiology Progress Note ---
Subjective Date Seen by Provider: Dec 05, 2018 Time Seen by Provider: 16:45 Subjective/Events-last exam patient is sitting in a chair comfortable denied any chest pain or shortness of breath Review of Systems General: No Chills, No Night Sweats, No Fatigue, No Malaise, No Appetite, No Other HEENT: No Head Aches, No Visual Changes, No Eye Pain, No Ear Pain, No Dysphasia, No Sinus Congestion, No Post Nasal Drip, No Sore Throat, No Other Pulmonary: No Dyspnea, No Cough, No Pleuritic Chest Pain, No Other Cardiovascular: No: Chest Pain, Palpitations, Orthopnea, Paroxysmal Noc. Dyspnea, Edema, Lt Headedness, Other Objective-Cardiology Exam Last Set of Vital Signs Vital Signs 12/05/18 12/05/18 05:05 09:01 Temp 97.2 Pulse 102 Resp 18 B/P (MAP) 136/76 (96) Pulse Ox 94 O2 Delivery Room Air Capillary Refill : Less Than 3 Seconds I&O Intake and Output 12/05/18 00:00 Intake Total 1580 ml Balance 1580 ml Intake Oral 1580 ml # Voids 8 # Bowel Movements 2 General: Alert, Oriented X3, Cooperative, No Acute Distress HEENT: Atraumatic, PERRLA Neck: Supple, No JVD, No Thyromegaly Lungs: Clear to Auscultation, Normal Air Movement Heart: Normal S1, Normal S2, No Murmurs, Other (tachycardia) Abdomen: Normal Bowel Sounds, Soft, No Tenderness, No Hepatosplenomegaly, No Masses Extremities: No Clubbing, No Cyanosis, No Edema, No Tenderness/Swelling Skin: No Rashes, No Breakdown, No Significant Lesion Neuro: Normal Speech, Strength at 5/5 X4 Ext, Normal Tone, Sensation Intact Psych/Mental Status: Mental Status NL, Mood NL A/P-Cardiology Admission Diagnosis Chest pain CAD CHF HTN Assessment/Plan Chest pain, non specific etiology, right sided chest and shoulder pain, atypical in nature, secondary to clavicle fracture, reporting improvement Sinus tachycardia, unable to tolerate higher dose of beta fadi secondary to hypotension, continue on current medication and monitor CAD- reported history of stent placement in the past. Follows with Dr. Marrero as outpatient. CHF- 2D Echo done November 2018 revealed EF 35-40%. Maintained on Entresto, beta fadi. Labile HTN, better control at this time, continue on current medications and continue to monitor. 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 Managed by primary care team Elevated LFT's- Lipitor d/c'd. underwent Liver US last week which was WNL, improving, continue to monitor History of frequent falls at home Right clavicle fracture secondary to fall. Clinical Quality Measures DVT/VTE Risk/Contraindication: Risk Factor Score Per Nursin RFS Level Per Nursing on Admit: 4+=Very High NICOLE DE LOS SANTOS MD Dec 05, 2018 16:46
[2018-12-05 17:14] VITALS: BP 130/75
[2018-12-05] MEDS: AMITRIPTYLINE 25 MG (ELAVIL) TAB PO SCH (20:43)
[2018-12-06 05:50] VITALS: BP 149/72
[2018-12-06] MEDS: CYANOCOBALAMIN 1,000 MCG (VITAMIN B-12) TABLET PO SCH (06:23)
[2018-12-06] MEDS: MULTIVIT W/MINERALS TAB (THERAGRAN M) PO SCH (06:23)
[2018-12-06] MEDS: AMOX/CLAV 600 MG/5 ML (AUGMENTIN) 75 ML BTL PO SCH (06:23)
[2018-12-06] MEDS: RT-ALBUTEROL SULF 2.5 MG/3 ML PRE-MIX VIAL INH SCH ×3 (07:35→21:45)
--- NOTE | 2018-12-06 07:39 | NUR ---
PATIENT IS IN BED AND ON RA AND DOING GOOD; SHE STATES SHE DOES NOT NEED SVN BREATHING TX'S ANYMORE AND THAT SHE REFUSED SVN BT THIS MORNING. SHE DID COMPLAIN ABOUT BEING COLD SO RT MADE SURE FROM RN IF IT WAS OK TO GET A WARM BLANKET FOR THE PATIENT AND SHE SAID YES, SO RT GOT A WARM BLANKET AND PLACED ON PATIENT UNDER OTHER BLANKETS AT THIS TIME
--- NOTE | 2018-12-06 08:00 | NUR ---
STATES ABLE TO GET OUT OF CHAIR BETTER TODAY. STILL HESITANT TO USE RIGHT ARM DUE TO PAIN. COMPLAIN INCREASED EDEMA IN RIGHT LEG AND "LOOKS BAD". DR. REYES CONSULTED.
--- NOTE | 2018-12-06 08:22 | Cardiology Progress Note ---
Subjective Date Seen by Provider: Dec 06, 2018 Time Seen by Provider: 08:21 Subjective/Events-last exam Patient is sitting up at bedside. Reports episode of nausea and fatigue last night. Denies any further episode of chest pain. Review of Systems General: No Chills, No Night Sweats, No Fatigue, No Malaise, No Appetite, No Other HEENT: No Head Aches, No Visual Changes, No Eye Pain, No Ear Pain, No Dysphasia, No Sinus Congestion, No Post Nasal Drip, No Sore Throat, No Other Pulmonary: No Dyspnea, No Cough, No Pleuritic Chest Pain, No Other Cardiovascular: No: Chest Pain, Palpitations, Orthopnea, Paroxysmal Noc. Dyspnea, Edema, Lt Headedness, Other Objective-Cardiology Exam Last Set of Vital Signs Vital Signs 12/06/18 12/06/18 12/06/18 05:50 07:35 09:00 Temp 97.8 Pulse 87 Resp 20 B/P (MAP) 149/72 (97) Pulse Ox 92 O2 Delivery Room Air Capillary Refill : Less Than 3 Seconds I&O Intake and Output 12/06/18 00:00 Intake Total 890 ml Balance 890 ml Intake Oral 890 ml # Voids 6 # Bowel Movements 1 General: Alert, Oriented X3, Cooperative, No Acute Distress HEENT: Atraumatic, PERRLA Neck: Supple, No JVD, No Thyromegaly Lungs: Clear to Auscultation, Normal Air Movement Heart: Regular Rate, Normal S1, Normal S2, No Murmurs Abdomen: Normal Bowel Sounds, Soft, No Tenderness, No Hepatosplenomegaly, No Masses Extremities: No Clubbing, No Cyanosis, No Edema, No Tenderness/Swelling Skin: No Rashes, No Breakdown, No Significant Lesion Neuro: Normal Speech, Strength at 5/5 X4 Ext, Normal Tone, Sensation Intact Psych/Mental Status: Mental Status NL, Mood NL A/P-Cardiology Admission Diagnosis Chest pain CAD CHF HTN Assessment/Plan Chest pain, non specific etiology, right sided chest and shoulder pain, atypical in nature, secondary to clavicle fracture, reporting improvement Sinus tachycardia, unable to tolerate higher dose of beta fadi secondary to hypotension, heart rate better controlled this morning, continue on current medication and monitor CAD- reported history of stent placement in the past. Follows with Dr. Marrero as outpatient. CHF- 2D Echo done November 2018 revealed EF 35-40%. Maintained on Entresto, beta fadi. Labile HTN, better control at this time, continue on current medications and continue to monitor. 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 Managed by primary care team Elevated LFT's- Lipitor d/c'd. underwent Liver US last week which was WNL, improving, continue to monitor History of frequent falls at home Right clavicle fracture secondary to fall. Clinical Quality Measures DVT/VTE Risk/Contraindication: Risk Factor Score Per Nursin RFS Level Per Nursing on Admit: 4+=Very High Supervisory-Addendum Brief Supervisory Addendum Participated in pt care: history, MDM, physical Personally performed: exam, history, MDM Care discussed with: MONA Notes: patient was seen and evaluated, on examination lungs were clear to auscultation bilaterally, heart is regular rate and rhythm, reporting improvement in her chest pain, was complained of mild nausea this morning. Heart rate is better, blood pressure is better. Continue on current medications and monitor TARIK NICOLE Dec 06, 2018 08:22 NICOLE DE LOS SANTOS MD Dec 06, 2018 14:58
--- NOTE | 2018-12-06 08:54 | PM&R Progress Note ---
Subjective HPI/CC On Admission Date Seen by Provider: Dec 06, 2018 Time Seen by Provider: 08:45 Chief Complaint: Debility following fall with right clavicle fracture HPI: This is a 88 yoWF clinic pt of Dr. Dobbins and Dr. Marrero cardiology in [place] who has a PMH of known lung mass did not pursue that a few years ago who presents to inpatient rehab following an observation stay after a fall sustaining a right clavicle fracture. She lives at home alone shes been falling a lot and has become quite debilitated and the goal is to return home to independent living with ADL independence and ambulatory status independent. 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 She does recall meeting me. At this current time pt is very well controlled is aware of the additional lung mass that she has no intention of treating and Dr. Hoskins updated her on that fact and overall she's ready to get started to recover and ultimately return back to home. Subjective/Events-last exam Nausea continues. Wide sandro wraps will be offered. She agrees to go to assisted living so will start working on that. Neuropathy is an issue and has been an issue. Reviewed therapy notes Conferred with RN Check meds and labs Consult Dr Hill for right leg pre-ulcer and he will check usg studies Review of Systems Musculoskeletal: leg pain Objective Exam Vital Signs Vital Signs Date Time Temp Pulse Resp B/P (MAP) Pulse Ox O2 Delivery O2 Flow Rate FiO2 12/06/18 17:25 98.3 98 18 119/57 (77) 93 Room Air Capillary Refill : Less Than 3 Seconds General Appearance: No Apparent Distress, WD/WN, Chronically ill HEENT: PERRL/EOMI, Normal ENT Inspection Neck: Full Range of Motion, Normal Inspection, Non Tender, Supple, Limited Range of Motion (to the right) Respiratory: Chest Non Tender, Lungs Clear, Normal Breath Sounds, No Accessory Muscle Use, No Respiratory Distress Cardiovascular: Regular Rate, Rhythm, No Edema, No Gallop, No JVD, No Murmur Gastrointestinal: Normal Bowel Sounds, Soft Back: Normal Inspection, No CVA Tenderness, No Vertebral Tenderness Extremity: Normal Capillary Refill, Normal Inspection, Normal Range of Motion (except right arm), Non Tender, No Calf Tenderness Neurologic/Psychiatric: Alert, Oriented x3, No Motor/Sensory Deficits, Normal Mood/Affect, process manager II-XII Norm as Tested Skin: Normal Color, Warm/Dry, Other (scaling right lower leg pre-ulceration) Lymphatic: No Adenopathy Results/Procedures Lab Patient resulted labs reviewed. FIM Transfers Therapy Code Descriptions/Definitions Functional [place] Measure: 0=Not Assessed/NA 4=Minimal Assistance 1=Total Assistance 5=Supervision or Setup 2=Maximal Assistance 6=Modified [place] 3=Moderate Assistance 7=Complete [place] Therapy Quality Codes: 6 Independent with activity with or without an assistive device 5 Patient requires set up or clean up by helper. Patient completes activity by themselves 4 Supervision or touching assist (CGA). [place] provide cues , steadying assist 3 The helper provides less than half the effort to complete the activity 2 The helper provides more than half the effort to complete the activity 1 Dependent. The helper does all the effort to complete an activity 7 Patient refused to complete or attempt activity 9 The patient did not perform the activity before the current illness or injury 88 Not attempted due to Medical conditions or safety concerns Transfers (B, C, W/C) (FIM): 3 Scootin Rollin Roll Left to Right (QC): 4 Supine to/from Sit: 4 Sit to/from Stand: 4 Sit to Lying (QC): 3 Sit to Stand (QC): 4 Chair/[id number] Xfer(QC): 4 Bed to/from Chair: 4 Car Transfer (QC): 4 Gait Training Does the Patient Walk?: Yes Gait (FIM): 5 Distance (FIM): 3=150 ft Distance: 150' Walk 10 feet (QC): 5 Walk 50 ft with 2 Turns(QC): 5 Walk 150 ft (QC): 5 Walking 10ft/uneven surface-QC: 3 Gait Level of Assist: 5 Gait Persons Needed: 1 Gait Assistive Device: Walker Platform Wheelchair Training Does the Pt Use a Wheelchair?: No Stair Training Stair Training: Handrails/: uses walker Stairs (FIM): 2 #of Steps: 4 1 Step (curb) (QC): 3 (mod assist to step up) 4 Steps (QC): 88 12 Steps (QC): 88 Stairs: Pattern: Step to Level of Assist: 4 Balance Picking up an Object (QC): 88 Mental Status/Objective Comprehension: 6 Expression: 6 Social Interaction: 7 Problem Solvin Memory: 5 ADL-Treatment Feedin (increase time ) Eating (QC): 6 Groomin (standing at sink with platform walker. brush hair, wash hands) Oral Hygiene (QC): 6 Bathin Bathing Location: L Arm, R Arm, L Upper Leg, R Upper Leg, L Lower Leg (including foot), R Lower Leg (including foot), Chest, Abdomen, Buttocks, Perineal Area Shower/Bathe Self (QC): 4 Upper Extremity Dressin Upper Body Dressing (QC): 6 Lower Extremity Dressin Lower Body Dressing (QC): 4 On/Off Footwear (QC): 6 (use of sock aid, tre socks ) Toiletin (reqquired MIN A to perform sit to stand from toilet) Toileting Hygiene (QC): 4 Toilet/Commode Transfer: 4 Toilet Transfer (QC): 4 Shower: 5 (use of GB ) 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 but does not wish to have work-up or treatment CAD with stents in place PVD with stents in place Lives alone CHF UTI's Crackles RLL acute-improved with IS use Elevated LFT's limiting APAP and holding statin Right lower leg pre-ulcer consulting Dr Hill Plan: Consult pulmonology is appreciated Stop atorvastatin d/t liver enzymes Stop acetaminophen d/t liver enzymes Repeated echo and viewed results Use tramadol for pain to prevent delirium but does not appear to be working well for her so add Hydrocodone Inpatient rehab protocol Ambulation with walker for fall prevention Regain independence with ADLs with right clavicle fracture and arm in sling Use platform to help navigate ambulation due to clavicle fracture Right arm sling prn to help with the pain IS Control pain with addition of Hydrocodone and that seems to be helping her quite a bit AL at DC Arterial USG studies (1) Fall on same level (2) Congestive heart failure (3) B12 deficiency (4) Recurrent UTI (5) Hyperlipemia (6) PVD (peripheral vascular disease) (7) CAD (coronary artery disease) (8) Coronary arteriosclerosis (9) Clavicle fracture (10) Hypertension (11) Lung mass (12) Peripheral vascular disease Reviewed assessment and plan Pain control Monitor labs closely Abx empiric for bronchial source nut UTI likely source also Lung cancer is presumed Needs AL (1) Fall on same level Status: Acute (2) Congestive heart failure Status: Acute (3) B12 deficiency (4) Recurrent UTI (5) Hyperlipemia (6) PVD (peripheral vascular disease) (7) CAD (coronary artery disease) (8) Coronary arteriosclerosis Status: Chronic (9) Clavicle fracture (10) Hypertension Status: Acute (11) Lung mass (12) Peripheral vascular disease Status: Chronic COLLEEN OVIEDO DO Dec 06, 2018 08:54
--- NOTE | 2018-12-06 08:54 | Occupational Ther Daily Note ---
OT Current Status-Daily Note Subjective pt laying in bed upon OT arrival in no apparent distress. pt agreed to OT TX session with focus on increasing independence with ADLS and functional transfers. Pain Numeric Pain Scale: 0-No Pain Appearance noted increase edema in tre LE. right LE reddish Mental Status/Objective Patient Orientation: Normal For Age Therapy Code Descriptions/Definitions Functional [place] Measure: 0=Not Assessed/NA 4=Minimal Assistance 1=Total Assistance 5=Supervision or Setup 2=Maximal Assistance 6=Modified [place] 3=Moderate Assistance 7=Complete [place] ADL-Treatment Therapy Code Descriptions/Definitions Functional [place] Measure: 0=Not Assessed/NA 4=Minimal Assistance 1=Total Assistance 5=Supervision or Setup 2=Maximal Assistance 6=Modified [place] 3=Moderate Assistance 7=Complete [place] Therapy Quality Codes: 6 Independent with activity with or without an assistive device 5 Patient requires set up or clean up by helper. Patient completes activity by themselves 4 Supervision or touching assist (CGA). [place] provide cues , steadying assist 3 The helper provides less than half the effort to complete the activity 2 The helper provides more than half the effort to complete the activity 1 Dependent. The helper does all the effort to complete an activity 7 Patient refused to complete or attempt activity 9 The patient did not perform the activity before the current illness or injury 88 Not attempted due to Medical conditions or safety concerns Eating (FIM): 6 (increased timing secodnary to decrease RUE ROM/ strength ) Eating (QC): 6 Grooming (FIM): 6 (stand at sink MOD I with use of platform walker for balance. ) Oral Hygiene (QC): 6 Bathing (FIM): 5 (SBA for safety/ balacne. noted useof SC and GB. ) Bathing Location: L Arm, R Arm, L Upper Leg, R Upper Leg, L Lower Leg (including foot), R Lower Leg (including foot), Chest, Abdomen, Buttocks, Perineal Area Shower/Bathe Self (QC): 4 Upper Body (FIM): 6 (button up shirt. increased timing for buttons ) Upper Body Dressing (QC): 5 Lower Body Dressing (FIM): 5 (use of AE. increased timing noted. pt required SBA for sit to stand for safety/ balnace while pulling up pants. pants, tre socks, underpants, tre shoes ) Lower Body Dressing (QC): 4 On/Off Footwear (QC): 6 (use of AE ) Toileting (FIM): 6 (increased timing noted. pt able to perform 3/3 toieting tasks ) Toileting Hygiene (QC): 6 Transfers (B, C, W/C) (FIM): 5 (SBA and set up of RW perform sit to stand from chair. ) Toilet/Commode Transfer (FIM): 5 (SBA fro safety/ balance. noted use of GB ) Toilet Transfer (QC): 5 Shower Transfer(FIM): 5 (noted use of GB. pt able to perform sit to stand with SBA using GB. SC ) pt required additional timing to perform all ADLS secondary to limited ROM in RUE. pt required SBA while performing sit to stands from bed, shower, toileting, and chair. post OT Session pt gathered clothing and placed in bag for laundry. pt sitting in chair, call light within reach all needs met. Education OT Patient Education: Modified ADL techniques, Progress toward Goal/Update tx plan, Purpose of tx/functional activities, Reviewed precautions, Safety issues, Transfer techniques Teaching Recipient: Patient Teaching Methods: Demonstration, Discussion Response to Teaching: Verbalize Understanding, Return Demonstration OT Short Term Goals Short Term Goals Time Frame: Dec 06, 2018 Eating(FIM): 6 Grooming(FIM): 5 Bathing(FIM): 4 Bathing Location: L Arm, R Arm, L Upper Leg, R Upper Leg, L Lower Leg (including foot), R Lower Leg (including foot), Chest, Abdomen, Buttocks, Perineal Area Upper Body Dressing(FIM): 4 Lower Body Dressing(FIM): 4 Toileting(FIM): 4 Transfers (B,C,W/C) (FIM): 4 Toilet/Commode Transfer(FIM): 4 Shower Transfer(FIM): 4 Comprehension(FIM): 6 Expression(FIM): 6 Social Interaction(FIM): 7 Problem Solving(FIM): 5 Memory(FIM): 5 Additional Short Term Goals: 1-Demonstrate ADL Tasks, 2-Verbalize Understanding, 3-ImproveStrength/Desean 1=Demonstrate adherence to instructed precautions during ADL tasks. 2=Patient will verbalize/demonstrate understanding of assistive devices/modifications for ADL. 3=Patient will improve strength/tolerance for activity to enable patient to perform ADL's. OT Penitentiary Goals Penitentiary Goals Time Frame: Dec 20, 2018 Eating (FIM): 7 Eating (QC): 6 Groomin Oral Hygiene (QC): 6 Bathing(FIM): 6 Bathing Location: L Arm, R Arm, L Upper Leg, R Upper Leg, L Lower Leg (i ncluding foot), R Lower Leg (including foot), Chest, Abdomen, Buttocks, Perineal Area Shower/Bathe Self (QC): 6 Upper Body Dressing(FIM): 6 Upper Body Dressing (QC): 6 Lower Body Dressing(FIM): 6 Lower Body Dressing (QC): 6 On/Off Footwear (QC): 6 Toileting(FIM): 6 Toileting Hygiene (QC): 6 Transfers (B,C,W/C) (FIM): 6 Toilet/Commode Transfer(FIM): 6 Toilet/Commode Transfer (QC): 6 Shower Transfer(FIM): 6 Comprehension(FIM): 6 Expression (FIM): 6 Social Interaction(FIM): 7 Problem Solving(FIM): 5 Memory(FIM): 5 Additional Goals: 1-Demonstrate ADL Tasks, 2-Verbalize Understanding, 3- ImproveStrength/Desean 1=Demonstrate adherence to instructed precautions during ADL tasks. 2=Patient will verbalize/demonstrate understanding of assistive devices/modif ications for ADL. 3=Patient will improve strength/tolerance for activity to enable patient to perform ADL's. OT Education/Plan Problem List/Assessment Assessment: Decreased Activ Tolerance, Impaired I ADL's, Restricted Funct UE ROM Discharge Recommendations Plan/Recommendations: Continue POC Therapy D/C Recommendations: Assisted Living Equpiment Recommendations-D/C: Dramatic Coach, Sock Aide, Dressing Stick Treatment Plan/Plan of Care Treatment,Training & Education: Yes Patient would benefit from OT for education, treatment and training to promote independence in ADL's, mobility, safety and/or upper extremity function for ADL's. Plan of Care: ADL Retraining, Caregiver Training, Functional Mobility, Group Exercise/Act as Ind, UE Funct Exercise/Act Treatment Duration: Dec 20, 2018 Frequency: At least 5 of 7 days/Wk (IRF) Estimated Hrs Per Day: 1 hour per day (60-90 minutes per day) Agreement: Yes Rehab Potential: Good Time/GCodes Start Time: 08:00 Stop Time: 09:15 Billed Treatment Time ADL 75 minutes, 5 units ANTONETTE GUEVARA OT Dec 06, 2018 08:54
[2018-12-06] MEDS: SACUBITRIL/VALSARTAN 24/26 MG (ENTRESTO) TABLET PO SCH ×2 (09:29→20:59)
[2018-12-06] MEDS: SENNA W/DOCUSATE (SENOKOT S) TABLET PO SCH ×2 (09:29→20:59)
[2018-12-06] MEDS: ASPIRIN 81 MG CHEW (CHILDREN'S ASA) PO SCH (09:31)
[2018-12-06] MEDS: LUTEIN 40 MG PO SCH (10:51)
[2018-12-06] MEDS: MOVE FREE JOINT HEALTH PO SCH (10:52)
[2018-12-06] MEDS: ENOXAPARIN 40 MG/0.4 ML (LOVENOX) SYR SC SCH (10:53)
--- NOTE | 2018-12-06 11:19 | Speech Therapy Daily Note ---
Speech Daily Progress Note Subjective Date Seen by Provider: Dec 06, 2018 Time Seen by Provider: 00:30 The patient was resting in her chair following her PT session when I entered the room. Objective The patient completed a series of problem solving tasks related to her daily needs at 90% with minimal cues. Assessment Assessment Current Status: Good Progress Treatment Plan Continue Plan of Care Communication Comprehension: 6 Expression: 6 Social Cognition Social Interaction: 7 Problem Solvin Memory: 5 Speech Short Term Goals Short Term Goals Short Term Goals Patient will demonstrate simple problem solving and memory with 80% accuracy when given minimal cues Comprehension: 6 Expression: 6 Social Interaction: 7 Problem Solvin Memory: 5 Speech Nursing Home Goals Nursing Home Goals Patient will improve cognitive-communication necessary for safety and daily living tasks with minimal assist Comprehension: 6 Expression: 6 Social Interaction: 7 Problem Solvin Memory: 5 Speech-Plan Patient/Family Goals Patient/Family Goals: The patient expressed she will be going to an assisted living facility. Treatment Plan Speech Therapy Treatment Plan: Continue Plan of Care The patient is processing well with memory and problem solving related to her daily needs. Safety awareness has improved. Treatment Duration: Dec 06, 2018 Frequency: 5 times per week Estimated Hrs Per Day: .5 hour per day Rehab Potential: Good Barriers to Learning: Patient has mild cognitive deficits. Pt/Family Agrees to Plan: Yes Safety Risks/Education Teaching Recipient: Patient Teaching Methods: Demonstration, Discussion Response to Teaching: Verbalize Understanding, Return Demonstration Education Topics Provided: Continued safety within her room and upon discharge. Time Speech Therapy Time In: 10:00 Speech Therapy Time Out: 10:30 Total Billed Time: 30 Billed Treatment Time [address] Dec 06, 2018 11:19
--- NOTE | 2018-12-06 11:20 | Physical Therapy Daily Note ---
PT Daily Note-Current Subjective Pt sitting in chair elevated with pillows upon arrival. Pt agrees to PT but reports not sleeping well last night due neuropathy, nausea, etc. Pain Numeric Pain Scale: 5-Moderate Pain Location: Right Location Body Site: Shoulder Pain Description: Ache, Tightness Mental Status Patient Orientation: Person, Place, Time, Situation Transfers Therapy Code Descriptions/Definitions Functional [place] Measure: 0=Not Assessed/NA 4=Minimal Assistance 1=Total Assistance 5=Supervision or Setup 2=Maximal Assistance 6=Modified [place] 3=Moderate Assistance 7=Complete [place] Therapy Quality Codes: 6 Independent with activity with or without an assistive device 5 Patient requires set up or clean up by helper. Patient completes activity by themselves 4 Supervision or touching assist (CGA). [place] provide cues , steadying assist 3 The helper provides less than half the effort to complete the activity 2 The helper provides more than half the effort to complete the activity 1 Dependent. The helper does all the effort to complete an activity 7 Patient refused to complete or attempt activity 9 The patient did not perform the activity before the current illness or injury 88 Not attempted due to Medical conditions or safety concerns Scootin Sit to/from Stand: 4 Sit to Stand (QC): 4 Weight Bearing Full Weight Bearing Full Weight Bearing sling right UE; Physician reports she may use her right UE for use in a platform walker. Gait Training Does the Patient Walk?: Yes Gait (FIM): 5 Distance (FIM): 3=150 ft Distance: 150' Walk 10 feet (QC): 5 Walk 50 ft with 2 Turns(QC): 5 Walk 150 ft (QC): 5 Gait Level of Assist: 5 Gait Persons Needed: 1 Gait Assistive Device: Walker Platform Pt walks with slow carolyn. Exercises NuStep Minutes: 13 NuStep Workload: 4 Treatments Pt transfers from chair to standing then needs to use restroom. Pt ambulates in hallway then uses NuStep for 13m at WL 4. Pt short RB before returning to room. Pt rests in chair on pillows at end of tx with all needs met, call light next to pt. Assessment Current Status: Good Progress Pt continues to improve with transfers although she still needs elevated surface for improved transfer. PT Short Term Goals Short Term Goals Time Frame: Nov 29, 2018 Transfers (B,C,W/C) (FIM): 4 Gait (FIM): 4 PT Jail Goals [place] Cutter Goals PT Jail Goals Time Frame: Dec 14, 2018 Transfers (B,C,W/C) (FIM): 6 Sit to Lying (QC): 6 Lying-Sitting on Side/Bed(QC): 6 Sit to Stand (QC): 6 Rollin Roll Left to Right (QC): 6 Chair/Hxn-on-Opvzi Xfer(QC): 6 Car Transfer (QC): 6 Does the Patient Walk: Yes Gait (FIM): 6 Gait distance (FIM): 3=150 ft Walk 10 feet (QC): 6 Walk 10ft-Uneven Surface(QC): 6 Walk 50ft with 2 Turns (QC): 6 Walk 150 ft (QC): 6 Gait Assistive Device: FWW Stairs (FIM): 2 # of Steps: 4 1 Step (curb) (QC): 6 4 Steps (QC): 6 12 Steps (QC): 88 Picking up an Object (QC): 88 PT Plan Problem List Problem List: Activity Tolerance, Functional Strength, Transfer Treatment/Plan Treatment Plan: Continue Plan of Care Treatment Plan: Bed Mobility, Education, Functional Activity [place], Functional Strength, Group Therapy, Gait, Safety, Therapeutic Exercise, Transfers Treatment Duration: Dec 14, 2018 Frequency: At least 5 of 7 days/Wk (IRF) Estimated Hrs Per Day: 1.5 hours per day Patient and/or Family Agrees t: Yes Safety Risks/Education Patient Education: Gait Training, Transfer Techniques, Correct Positioning, Safety Issues Teaching Recipient: Patient Teaching Methods: Discussion Response to Teaching: Verbalize Understanding Time/GCodes Time In: 915 Time Out: 1000 Total Billed Treatment Time: 45 Total Billed Treatment 1, GT (15m), FA (15m) & EX (15m) G Codes Necessary: IRENE Pagan SHOE STITCHER ODD Dec 06, 2018 11:20
--- NOTE | 2018-12-06 11:41 | Progress Note - Hospitalist ---
DARYN BENNETT [facility] 12/06/18 1141: Progress Note Ms. Hampton is resting comfortably but was feeling chilled and denied her breathing treatment. Had increasing neuropathy overnight, but resolved with position changes. Feels well otherwise. I spent some time talking with her about her discharge plans and she expressed a desire to return to her previous living arrangement. In discussing a plan of safety for her increasing falls with respect to her current condition, she agrees that a stay in assisted living is a good option. Plan for disposition to assisted living was discussed with placement. Did observe patient ambulating with platform fww with min assist from OT. 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 but does not wish to have work-up or treatment CAD with stents in place PVD with stents in place Lives alone CHF UTI's Crackles RLL acute-improved with IS use Elevated LFT's limiting APAP and holding statin Plan: Consult pulmonology is appreciated Stop atorvastatin d/t liver enzymes Stop acetaminophen d/t liver enzymes Repeated echo and viewed results Use tramadol for pain to prevent delirium but does not appear to be working well for her so add Hydrocodone Inpatient rehab protocol Ambulation with walker for fall prevention Regain independence with ADLs with right clavicle fracture and arm in sling Use platform to help navigate ambulation due to clavicle fracture Right arm sling prn to help with the pain IS Control pain with addition of Hydrocodone and that seems to be helping her quite a bit Plan for disposition to [facility] this week TASHIA LOTT DO 12/06/181: Supervisory-Addendum Brief Verification & Attestation Participated in pt care: history, MDM, physical Personally performed: exam, history, MDM, supervision of care Care discussed with: Medical Student Procedures: n/a Results interpretation: Verified all documentation Verification and Attestation of Medical Student E/M Service A medical student performed and documented this service in my presence. I reviewed and verified all information documented by the medical student and made modifications to such information, when appropriate. I personally performed the physical exam and medical decision making. Tashia Lott Dec 06, 2018,21:21 DARYN BENNETT [facility] Dec 06, 2018 11:41 TASHIA LOTT DO Dec 06, 2018 21:21
--- NOTE | 2018-12-06 12:00 | NUR ---
DR. REYES HERE TO SEE PATIENT.
--- NOTE | 2018-12-06 14:40 | Physical Therapy Daily Note ---
PT Daily Note-Current Subjective Pt sitting in chair on pillows upon arrival. Pt agrees to PT. Pain Numeric Pain Scale: 5-Moderate Pain Location: Right Location Body Site: Shoulder Pain Description: Ache Mental Status Patient Orientation: Person, Place, Time, Situation Transfers Therapy Code Descriptions/Definitions Functional [place] Measure: 0=Not Assessed/NA 4=Minimal Assistance 1=Total Assistance 5=Supervision or Setup 2=Maximal Assistance 6=Modified [place] 3=Moderate Assistance 7=Complete [place] Therapy Quality Codes: 6 Independent with activity with or without an assistive device 5 Patient requires set up or clean up by helper. Patient completes activity by themselves 4 Supervision or touching assist (CGA). [place] provide cues , steadying assist 3 The helper provides less than half the effort to complete the activity 2 The helper provides more than half the effort to complete the activity 1 Dependent. The helper does all the effort to complete an activity 7 Patient refused to complete or attempt activity 9 The patient did not perform the activity before the current illness or injury 88 Not attempted due to Medical conditions or safety concerns Scootin Sit to/from Stand: 4 Sit to Stand (QC): 4 Weight Bearing Full Weight Bearing Full Weight Bearing sling right UE; Physician reports she may use her right UE for use in a platform walker. Gait Training Does the Patient Walk?: Yes Gait (FIM): 5 Distance (FIM): 3=150 ft Distance: 150' Walk 10 feet (QC): 5 Walk 50 ft with 2 Turns(QC): 5 Walk 150 ft (QC): 5 Gait Level of Assist: 5 Gait Persons Needed: 1 Wheelchair Training Does the Pt Use a Wheelchair?: No Exercises Seated Therapy Exercises: Ankle pumps, Long arc quads, Hip flexion, Kicking activity, Hip abd/add Seated Reps: 20 Treatments Pt transfers from chair to standing. Pt ambulates in [place] before taking short RB. Pt completes Seated EX in chair before returning to room to rest. Pt has all needs met, call light next to pt. Assessment Current Status: Good Progress Pt fatigues and needs RB. PT Short Term Goals Short Term Goals Time Frame: Nov 29, 2018 Transfers (B,C,W/C) (FIM): 4 Gait (FIM): 4 PT Coil Cleaner Goals Mcfp Goals PT Mcfp Goals Time Frame: Dec 14, 2018 Transfers (B,C,W/C) (FIM): 6 Sit to Lying (QC): 6 Lying-Sitting on Side/Bed(QC): 6 Sit to Stand (QC): 6 Rollin Roll Left to Right (QC): 6 Chair/Afb-pi-Avosh Xfer(QC): 6 Car Transfer (QC): 6 Does the Patient Walk: Yes Gait (FIM): 6 Gait distance (FIM): 3=150 ft Walk 10 feet (QC): 6 Walk 10ft-Uneven Surface(QC): 6 Walk 50ft with 2 Turns (QC): 6 Walk 150 ft (QC): 6 Gait Assistive Device: FWW Stairs (FIM): 2 # of Steps: 4 1 Step (curb) (QC): 6 4 Steps (QC): 6 12 Steps (QC): 88 Picking up an Object (QC): 88 PT Plan Problem List Problem List: Activity Tolerance, Functional Strength, Transfer Treatment/Plan Treatment Plan: Continue Plan of Care Treatment Plan: Bed Mobility, Education, Functional Activity [place], Functional Strength, Group Therapy, Gait, Safety, Therapeutic Exercise, Transfers Treatment Duration: Dec 14, 2018 Frequency: At least 5 of 7 days/Wk (IRF) Estimated Hrs Per Day: 1.5 hours per day Patient and/or Family Agrees t: Yes Safety Risks/Education Patient Education: Transfer Techniques, Correct Positioning, Safety Issues Teaching Recipient: Patient Teaching Methods: Discussion Response to Teaching: Verbalize Understanding Time/GCodes Time In: 1300 Time Out: 1330 Total Billed Treatment Time: 30 Total Billed Treatment 1, FA (15m) & GT (15m) G Codes Necessary: IRENE Pagan AUTOMATIC LOG CUT OFF SAWYER Dec 06, 2018 14:40
--- NOTE | 2018-12-06 15:21 | Pulmonary Progress Note ---
Subjective Time Seen by a Provider: 15:21 Subjective/Events-last exam Pt has no concerns. She denies SOB. Sepsis Event Evaluation Height, Weight, BMI Height: 5'7.00" Weight: 144lbs. 9.9oz. [id number]; 21.5 BMI Method:Stated Exam Exam Vital Signs Date Time Temp Pulse Resp B/P (MAP) Pulse Ox O2 Delivery O2 Flow Rate FiO2 12/06/18 14:59 92 Room Air 12/06/18 09:00 Room Air 12/06/18 07:35 92 Room Air 12/06/18 05:50 97.8 87 20 149/72 (97) 99 Room Air 12/05/18 21:06 92 Room Air 12/05/18 20:16 Room Air 12/05/18 17:14 98.2 101 18 130/75 (93) 98 Room Air I & O 12/06/18 07:00 Intake Total 1080 ml Balance 1080 ml Height & Weight Height: 5'7.00" Weight: 144lbs. 9.9oz. 65.111613ka; 21.5 BMI Method:Stated General Appearance: No Apparent Distress, WD/WN, Chronically ill HEENT: PERRL/EOMI, Normal ENT Inspection Neck: Full Range of Motion, Normal Inspection, Non Tender, Supple, Limited Range of Motion (to the right) Respiratory: Chest Non Tender, Lungs Clear, Normal Breath Sounds, No Accessory Muscle Use, No Respiratory Distress Cardiovascular: Regular Rate, Rhythm, No Edema, No Gallop, No JVD, No Murmur Extremity: Normal Capillary Refill, Normal Inspection, Normal Range of Motion (except right arm), Non Tender, No Calf Tenderness Neurologic/Psychiatric: Alert, Oriented x3, No Motor/Sensory Deficits, Normal Mood/Affect, academic tutor II-XII Norm as Tested Skin: Normal Color, Warm/Dry Lymphatic: No Adenopathy Assessment/Plan Assessment/Plan Known lung mass -Pt has declined workup in the past and continues to decline workup. She does understand this maybe cancer vs infection Pneumonia -Augmentin Acute right clavicle fracture Hx of PVD with stents CHF Debility -inpt rehab ALLI ERAZO DO Dec 06, 2018 15:21
--- NOTE | 2018-12-06 15:45 | NUR ---
Team conference Discharged team conference with patient. Recommendation for date of discharge on 12/11/18 with home health care PT and OT. Patient is requesting referral be made to [facility] for admission on 12/11/18. Patient states she would like to talk to someone from [facility] about the type of equipment available (grab bars and raised toilet seat in the bathroom). Patient states she would like to use the walker without the platform and Bruna De La Cruz, PT notified of this. Referral made to [facility].
--- NOTE | 2018-12-06 16:00 | NUR ---
REFUSES SEGMENTAL PRESSURE CHECKS. DR. REYES NOTIFIED. A AND D OINTMENT APPLIED AFTER LEG WASHING AND RESTING IN BED NOW WITH ANKLES ELEVATED ABOVE HEART.
[2018-12-06 17:25] VITALS: BP 119/57
[2018-12-06] MEDS: GABAPENTIN 100 MG (NEURONTIN) CAP PO SCH (17:48)
[2018-12-06] MEDS: A & D OINT 113 GM TUBE TOP SCH (17:48)
--- NOTE | 2018-12-06 18:08 | Wound Care Assessment ---
Wound Care Assessment Date Seen by Provider: Dec 06, 2018 Time Seen by Provider: 12:15 Chief Complaint Scaly R calf skin. HPI The patient is an 88 year old female with complaint of scaly skin of the R calf due to chronic venous insufficiency and bilateral foot pain. She has no palpable pulses. Non-invasive arterial evaluation is recommended and originally accepted. The nurse called back later in the day and stated that the patient wished to decline arterial evaluation. The patient is recommended to elevate her legs above the heart times 2 hours three times a day and at night, cleanse the calves with soap and water, apply A + D ointment daily. The pain that she is experiencing may be ischemic, but the patient declines evaluation. Past Medical History: Admits Heart Disease (and falls), Admits Peripheral Artery Disease Smoking Status: Never a Smoker Recreational Drug Use: No Alcohol Use: Denies Use Review of Systems Pulmonary: No Dyspnea Cardiovascular: No: Chest Pain Exam Vital Signs Date Time Temp Pulse Resp B/P (MAP) Pulse Ox O2 Delivery O2 Flow Rate FiO2 12/06/18 17:25 98.3 98 18 119/57 (77) 93 Room Air Capillary Refill : Less Than 3 Seconds General Appearance: no apparent distress HEENT: normal ENT inspection Neck: normal inspection Cardiovascular: regular rate, rhythm Respiratory: lungs clear Gastrointestinal: normal bowel sounds, non tender Extremities: other (No palpable pedal pulses. Venous stasis dermatitis of R calf.) Results Microbiology 11/28/18 Blood Culture - Final, Complete No growth 11/29/18 Urine Culture - Final, Complete NO GROWTH Assessment/Plan/Dx 1. Venous stasis dermatitis of R calf. 2. Atherosclerotic arterial occlusive disease. 3. Neuropathy. 4. Bilateral foot pain, may be #2 or #3. Plan: Elevation, A + D ointment. Will follow. ROBBY REYES MD Dec 06, 2018 18:08
[2018-12-06] MEDS: HYDROcodone/APAP 5 MG/325 MG (LORTAB) TAB PO PRN (19:40)
[2018-12-06] MEDS: AMITRIPTYLINE 25 MG (ELAVIL) TAB PO SCH (20:59)
[2018-12-07 06:35] VITALS: BP 129/63
[2018-12-07] MEDS: MULTIVIT W/MINERALS TAB (THERAGRAN M) PO SCH (06:48)
[2018-12-07] MEDS: CYANOCOBALAMIN 1,000 MCG (VITAMIN B-12) TABLET PO SCH (06:48)
[2018-12-07] MEDS: RT-ALBUTEROL SULF 2.5 MG/3 ML PRE-MIX VIAL INH SCH ×3 (07:12→23:53)
--- NOTE | 2018-12-07 07:54 | Consultation-Cardiology ---
HPI-Cardiology Cardiology Consultation Date of Consultation 12/07/18 Date of Admission Time Seen by Provider: 12:15 Indication: Chest pain Attending Physician/PCP: NICOLE DE LOS SANTOS MD HPI Patient is sitting up at bedside. Denies any further episodes of fatigue. Denies any further episode of chest pain. Home Medications & Allergies Allergies: Coded Allergies: atenolol (Verified Allergy, Unknown, 05/05/18) codeine (Verified Adverse Reaction, Mild, NAUSEA, 05/05/18) HEADACHE diltiazem (Verified Adverse Reaction, Mild, DOESN'T WANT, 05/05/18) indomethacin (Verified Adverse Reaction, Mild, DOESN'T WANT, 05/05/18) propranolol (Verified Adverse Reaction, Mild, DOESN'T WANT, 05/05/18) morphine (Verified Adverse Reaction, Unknown, 05/05/18) reports hearing things-reports she does not want to ever take. haS TOLERATED HYDROCODONE Uncoded Allergies: NITROPATCH (Adverse Reaction, Mild, DOESN'T WANT, 03/29/07) DBR-Acdgaf-Edwmgc Hx Patient Social History Marital Status: single Employed/Student: retired Alcohol Use: Denies Use Recreational Drug Use: No Smoking Status: Never a Smoker 2nd Hand Smoke Exposure: No Recent Foreign Travel: No Recent Infectious Disease Expo: No Recent Hopitalizations: Yes (RIGHT CLAVICLE FX 7-19) Physical Abuse Screen: No Sexual Abuse: No Immunizations Up To Date Tetanus Booster (TDap): Unknown Date of Pneumonia Vaccine: Nov 23, 2013 Date of Influenza Vaccine: Jan 23, 2018 Past Medical History CAD, CHF, HTN, lung mass Family Medical History Significant Family History: No Pertinent Family Hx Family History: Arthritis 19 MOTHER, Onset:Unknown Diabetes mellitus 19 FATHER, Onset:Unknown Myocardial infarction 19 FATHER, Onset:Unknown 19 MOTHER, Onset:Unknown Review of Systems-General Review of Systems Constitutional: see HPI, malaise, weakness EENTM: no symptoms reported Respiratory: no symptoms reported Cardiovascular: No edema; Hx of Intervention; No syncope; vascular heart diseas Gastrointestinal: no symptoms reported Genitourinary: no symptoms reported Musculoskeletal: no symptoms reported, other (right neck clavicle pain) Skin: no symptoms reported Psychiatric/Neurological: Depressed All Other Systems Reviewed Negative Unless Noted: Yes Physical Exam Physical Exam Vital Signs Vital Signs - First Documented 12/01/18 05:15 Temp 98.1 Pulse 115 Resp 18 B/P (MAP) 133/57 (82) Pulse Ox 97 O2 Delivery Room Air Capillary Refill : Less Than 3 Seconds Height, Weight, BMI Height: 5'7.00" Weight: 144lbs. 9.9oz. 65.674481xl; 21.5 BMI Method:Stated General Appearance: No Apparent Distress, WD/WN, Chronically ill HEENT: PERRL/EOMI, Normal ENT Inspection Neck: Full Range of Motion, Normal Inspection, Non Tender, Supple, Limited Range of Motion (to the right) Respiratory: Chest Non Tender, Lungs Clear, Normal Breath Sounds, No Accessory Muscle Use, No Respiratory Distress Cardiovascular: No Edema, No Gallop, No JVD, No Murmur, Tachycardia Gastrointestinal: Normal Bowel Sounds, Soft Back: Normal Inspection, No CVA Tenderness, No Vertebral Tenderness Extremity: Normal Capillary Refill, Normal Inspection, Normal Range of Motion (except right arm), Non Tender, No Calf Tenderness Neurologic/Psychiatric: Alert, Oriented x3, No Motor/Sensory Deficits, Normal Mood/Affect, vocal artist II-XII Norm as Tested Skin: Normal Color, Damp, Other (scaling right lower leg pre-ulceration) Lymphatic: No Adenopathy A/P-Cardiology Admission Diagnosis Chest pain CAD CHF HTN Assessment/Plan Chest pain, non specific etiology, right sided chest and shoulder pain, atypical in nature, secondary to clavicle fracture, reporting improvement Sinus tachycardia, unable to tolerate higher dose of beta fadi secondary to hypotension, heart rate better controlled this morning, continue on current medication and monitor CAD- reported history of stent placement in the past. Follows with Dr. Marrero as outpatient. CHF- 2D Echo done November 2018 revealed EF 35-40%. Maintained on Entresto, beta fadi. Labile HTN, better control at this time, continue on current medications and continue to monitor. 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 Managed by primary care team Elevated LFT's- Lipitor d/c'd. underwent Liver US last week which was WNL, improving, continue to monitor History of frequent falls at home Right clavicle fracture secondary to fall. Clinical Quality Measures DVT/VTE Risk/Contraindication: Risk Factor Score Per Nursin RFS Level Per Nursing on Admit: 4+=Very High LEI BARBER MED STUDENT Dec 07, 2018 07:54
--- NOTE | 2018-12-07 08:24 | PM&R Progress Note ---
Subjective HPI/CC On Admission Date Seen by Provider: Dec 07, 2018 Time Seen by Provider: 08:15 Chief Complaint: Debility following fall with right clavicle fracture HPI: This is a 88 yoWF clinic pt of Dr. Dobbins and Dr. Marrero cardiology in [place] who has a PMH of known lung mass did not pursue that a few years ago who presents to inpatient rehab following an observation stay after a fall sustaining a right clavicle fracture. She lives at home alone shes been falling a lot and has become quite debilitated and the goal is to return home to independent living with ADL independence and ambulatory status independent. 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 She does recall meeting me. At this current time pt is very well controlled is aware of the additional lung mass that she has no intention of treating and Dr. Hoskins updated her on that fact and overall she's ready to get started to recover and ultimately return back to home. Subjective/Events-last exam Refuses US because if she does note to have peripheral vascular disease she is not gonna have anything done for it anyway Likely PVD along with neuropathy Plan for discharge on Tuesday to assisted living Using IS Bowels are moving Reviewed therapy notes Conferred with RN Check meds and labs Review of Systems Musculoskeletal: arm pain, leg pain Objective Exam Vital Signs Vital Signs Date Time Temp Pulse Resp B/P (MAP) Pulse Ox O2 Delivery O2 Flow Rate FiO2 12/07/18 18:00 97.6 100 20 120/69 (86) 92 Room Air Capillary Refill : Less Than 3 Seconds General Appearance: No Apparent Distress, WD/WN, Chronically ill HEENT: PERRL/EOMI, Normal ENT Inspection Neck: Full Range of Motion, Normal Inspection, Non Tender, Supple, Limited Range of Motion (to the right) Respiratory: Chest Non Tender, Lungs Clear, Normal Breath Sounds, No Accessory Muscle Use, No Respiratory Distress Cardiovascular: No Edema, No Gallop, No JVD, No Murmur, Tachycardia Gastrointestinal: Normal Bowel Sounds, Soft Back: Normal Inspection, No CVA Tenderness, No Vertebral Tenderness Extremity: Normal Capillary Refill, Normal Inspection, Normal Range of Motion (except right arm), Non Tender, No Calf Tenderness Neurologic/Psychiatric: Alert, Oriented x3, No Motor/Sensory Deficits, Normal Mood/Affect, dialysis tech II-XII Norm as Tested Skin: Normal Color, Damp, Other (scaling right lower leg pre-ulceration) Lymphatic: No Adenopathy Results/Procedures Lab Patient resulted labs reviewed. FIM Transfers Therapy Code Descriptions/Definitions Functional [place] Measure: 0=Not Assessed/NA 4=Minimal Assistance 1=Total Assistance 5=Supervision or Setup 2=Maximal Assistance 6=Modified [place] 3=Moderate Assistance 7=Complete [place] Therapy Quality Codes: 6 Independent with activity with or without an assistive device 5 Patient requires set up or clean up by helper. Patient completes activity by themselves 4 Supervision or touching assist (CGA). [place] provide cues , steadying assist 3 The helper provides less than half the effort to complete the activity 2 The helper provides more than half the effort to complete the activity 1 Dependent. The helper does all the effort to complete an activity 7 Patient refused to complete or attempt activity 9 The patient did not perform the activity before the current illness or injury 88 Not attempted due to Medical conditions or safety concerns Transfers (B, C, W/C) (FIM): 5 (SBA and set up of RW perform sit to stand from chair. ) Scootin Rollin Roll Left to Right (QC): 4 Supine to/from Sit: 4 Sit to/from Stand: 4 Sit to Lying (QC): 3 Sit to Stand (QC): 4 Chair/Bry-mg-Rbwwu Xfer(QC): 4 Bed to/from Chair: 4 Car Transfer (QC): 4 Gait Training Does the Patient Walk?: Yes Gait (FIM): 5 Distance (FIM): 3=150 ft Distance: 150' Walk 10 feet (QC): 5 Walk 50 ft with 2 Turns(QC): 5 Walk 150 ft (QC): 5 Walking 10ft/uneven surface-QC: 3 Gait Level of Assist: 5 Gait Persons Needed: 1 Gait Assistive Device: Walker Platform Wheelchair Training Does the Pt Use a Wheelchair?: No Stair Training Stair Training: Handrails/: uses walker Stairs (FIM): 2 #of Steps: 4 1 Step (curb) (QC): 3 (mod assist to step up) 4 Steps (QC): 88 12 Steps (QC): 88 Stairs: Pattern: Step to Level of Assist: 4 Balance Picking up an Object (QC): 88 Mental Status/Objective Comprehension: 6 Expression: 6 Social Interaction: 7 Problem Solvin Memory: 5 ADL-Treatment Feedin (increased timing secodnary to decrease RUE ROM/ strength ) Eating (QC): 6 Groomin (stand at sink MOD I with use of platform walker for balance. ) Oral Hygiene (QC): 6 Bathin (SBA for safety/ balacne. noted useof SC and GB. ) Bathing Location: L Arm, R Arm, L Upper Leg, R Upper Leg, L Lower Leg (in cluding foot), R Lower Leg (including foot), Chest, Abdomen, Buttocks, Perineal Area Shower/Bathe Self (QC): 4 Upper Extremity Dressin (button up shirt. increased timing for buttons ) Upper Body Dressing (QC): 5 Lower Extremity Dressin (use of AE. increased timing noted. pt required SBA for sit to stand for safety/ balnace while pulling up pants. pants, tre socks, underpants, tre shoes ) Lower Body Dressing (QC): 4 On/Off Footwear (QC): 6 (use of AE ) Toiletin (increased timing noted. pt able to perform 3/3 toieting tasks ) Toileting Hygiene (QC): 6 Toilet/Commode Transfer: 5 (SBA fro safety/ balance. noted use of GB ) Toilet Transfer (QC): 5 Shower: 5 (noted use of GB. pt able to perform sit to stand with SBA using GB. SC ) 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 but does not wish to have work-up or treatment CAD with stents in place PVD with stents in place Lives alone CHF UTI's Crackles RLL acute-improved with IS use Elevated LFT's limiting APAP and holding statin Right lower leg pre-ulcer consulting Dr Hill Neuropathy Plan: Consult pulmonology is appreciated Stop atorvastatin d/t liver enzymes Stop acetaminophen d/t liver enzymes Repeated echo and viewed results Use tramadol for pain to prevent delirium but does not appear to be working well for her so add Hydrocodone Inpatient rehab protocol Ambulation with walker for fall prevention Regain independence with ADLs with right clavicle fracture and arm in sling Use platform to help navigate ambulation due to clavicle fracture Right arm sling prn to help with the pain IS Control pain with addition of Hydrocodone and that seems to be helping her quite a bit AL at DC Arterial USG studies declined by patient (1) Fall on same level (2) Congestive heart failure (3) B12 deficiency (4) Recurrent UTI (5) Hyperlipemia (6) PVD (peripheral vascular disease) (7) CAD (coronary artery disease) (8) Coronary arteriosclerosis (9) Clavicle fracture (10) Hypertension (11) Lung mass (12) Peripheral vascular disease Reviewed assessment and plan Pain control Monitor labs closely Abx empiric for bronchial source nut UTI likely source also Lung cancer is presumed Needs AL (1) Fall on same level Status: Acute (2) Congestive heart failure Status: Acute (3) B12 deficiency (4) Recurrent UTI (5) Hyperlipemia (6) PVD (peripheral vascular disease) (7) CAD (coronary artery disease) (8) Coronary arteriosclerosis Status: Chronic (9) Clavicle fracture (10) Hypertension Status: Acute (11) Lung mass (12) Peripheral vascular disease Status: Chronic COLLEEN OVIEDO DO Dec 07, 2018 08:24
--- NOTE | 2018-12-07 08:59 | Occupational Ther Daily Note ---
OT Current Status-Daily Note Subjective Pt sitting in recliner finishing breakfast at start of session, agreed to therapy focusing on UE exercise/activities to increase independence in daily activities. Pt reported 5/10 pain during exercises in the gym. Mental Status/Objective Patient Orientation: Normal For Age Therapy Code Descriptions/Definitions Functional [place] Measure: 0=Not Assessed/NA 4=Minimal Assistance 1=Total Assistance 5=Supervision or Setup 2=Maximal Assistance 6=Modified [place] 3=Moderate Assistance 7=Complete [place] ADL-Treatment Therapy Code Descriptions/Definitions Functional [place] Measure: 0=Not Assessed/NA 4=Minimal Assistance 1=Total Assistance 5=Supervision or Setup 2=Maximal Assistance 6=Modified [place] 3=Moderate Assistance 7=Complete [place] Therapy Quality Codes: 6 Independent with activity with or without an assistive device 5 Patient requires set up or clean up by helper. Patient completes activity by themselves 4 Supervision or touching assist (CGA). [place] provide cues , steadying assist 3 The helper provides less than half the effort to complete the activity 2 The helper provides more than half the effort to complete the activity 1 Dependent. The helper does all the effort to complete an activity 7 Patient refused to complete or attempt activity 9 The patient did not perform the activity before the current illness or injury 88 Not attempted due to Medical conditions or safety concerns Eating (FIM): 6 (pt required increased time to complete task.) Eating (QC): 6 Transfers (B, C, W/C) (FIM): 4 (Pt required Min A to get out of chair X1, SBA X3) Other Treatment Pt ambulated to gym using roller walker with platform on R side. Pt completed exercises in gym to increase RUE ROM, BUE fine motor coordination and strength. Pt attempted arm bike at light resistance, task terminated due to increased pain and limited ROM R shoulder. Pt completed pulleys seated X 20 reps, RUE shoulder flexion to 70 degrees secondary to limited ROM. Pt placed and removed X17 graded clothespins (ranging 1-5 lbs) standing at table using RUE. Pt placed pegs in pegboard seated X54, alternating RUE and LUE. OT removed platform from walker after discussion with PT, pt ambulated back to room using roller walker without platform. Pt seated in chair at end of session, call light in reach and needs met. Education OT Patient Education: Correct positioning, Energy conservation, Exercise program, Progress toward Goal/Update tx plan, Purpose of tx/functional activities Teaching Recipient: Patient Teaching Methods: Demonstration Response to Teaching: Verbalize Understanding, Return Demonstration OT Short Term Goals Short Term Goals Time Frame: Dec 06, 2018 Eating(FIM): 6 Grooming(FIM): 5 Bathing(FIM): 4 Bathing Location: L Arm, R Arm, L Upper Leg, R Upper Leg, L Lower Leg (including foot), R Lower Leg (including foot), Chest, Abdomen, Buttocks, Perineal Area Upper Body Dressing(FIM): 4 Lower Body Dressing(FIM): 4 Toileting(FIM): 4 Transfers (B,C,W/C) (FIM): 4 Toilet/Commode Transfer(FIM): 4 Shower Transfer(FIM): 4 Comprehension(FIM): 6 Expression(FIM): 6 Social Interaction(FIM): 7 Problem Solving(FIM): 5 Memory(FIM): 5 Additional Short Term Goals: 1-Demonstrate ADL Tasks, 2-Verbalize Understanding, 3-ImproveStrength/[place]esean 1=Demonstrate adherence to instructed precautions during ADL tasks. 2=Patient will verbalize/demonstrate understanding of assistive devices/modifications for ADL. 3=Patient will improve strength/tolerance for activity to enable patient to perform ADL's. OT Supervisor Carpenters Goals Longterm Goals Time Frame: Dec 20, 2018 Eating (FIM): 7 Eating (QC): 6 Groomin Oral Hygiene (QC): 6 Bathing(FIM): 6 Bathing Location: L Arm, R Arm, L Upper Leg, R Upper Leg, L Lower Leg (including foot), R Lower Leg (including foot), Chest, Abdomen, Buttocks, Perineal Area Shower/Bathe Self (QC): 6 Upper Body Dressing(FIM): 6 Upper Body Dressing (QC): 6 Lower Body Dressing(FIM): 6 Lower Body Dressing (QC): 6 On/Off Footwear (QC): 6 Toileting(FIM): 6 Toileting Hygiene (QC): 6 Transfers (B,C,W/C) (FIM): 6 Toilet/Commode Transfer(FIM): 6 Toilet/Commode Transfer (QC): 6 Shower Transfer(FIM): 6 Comprehension(FIM): 6 Expression (FIM): 6 Social Interaction(FIM): 7 Problem Solving(FIM): 5 Memory(FIM): 5 Additional Goals: 1-Demonstrate ADL Tasks, 2-Verbalize Understanding, 3- ImproveStrength/[place] 1=Demonstrate adherence to instructed precautions during ADL tasks. 2=Patient will verbalize/demonstrate understanding of assistive devices/modifications for ADL. 3=Patient will improve strength/tolerance for activity to enable patient to perform ADL's. OT Education/Plan Problem List/Assessment Assessment: Decreased Activ Tolerance, Decreased UE Strength, Impaired Coordination, Impaired I ADL's, Impaired Self-Care Skills, Restricted Funct UE ROM Discharge Recommendations Plan/Recommendations: Continue POC Treatment Plan/Plan of Care Treatment,Training & Education: Yes Patient would benefit from OT for education, treatment and training to promote independence in ADL's, mobility, safety and/or upper extremity function for ADL's. Plan of Care: ADL Retraining, Caregiver Training, Functional Mobility, Group Exercise/Act as Ind, UE Funct Exercise/Act Treatment Duration: Dec 20, 2018 Frequency: At least 5 of 7 days/Wk (IRF) Estimated Hrs Per Day: 1 hour per day (60-90 minutes per day) Agreement: Yes Rehab Potential: Good Time/GCodes Start Time: 08:00 Stop Time: 09:15 Total Time Billed (hr/min): 75 Billed Treatment Time EX 1 unit, 15 min FA 4 units, 60 min RENATA MELO OT Dec 07, 2018 08:59
[2018-12-07] MEDS: SACUBITRIL/VALSARTAN 24/26 MG (ENTRESTO) TABLET PO SCH ×2 (09:16→20:49)
[2018-12-07] MEDS: ASPIRIN 81 MG CHEW (CHILDREN'S ASA) PO SCH (09:16)
[2018-12-07] MEDS: MOVE FREE JOINT HEALTH PO SCH (09:16)
[2018-12-07] MEDS: LUTEIN 40 MG PO SCH (09:16)
[2018-12-07] MEDS: A & D OINT 113 GM TUBE TOP SCH (09:18)
[2018-12-07] MEDS: SENNA W/DOCUSATE (SENOKOT S) TABLET PO SCH ×2 (09:20→20:45)
--- NOTE | 2018-12-07 10:19 | Progress Note - Hospitalist ---
[facility] 12/07/18 1019: Progress Note Ms. Hampton continues to improve. Dr. Valero was consulted for venous stasis in her b/l LE with her reports of increasing pain. She initially consented to an arterial duplex U/S, but later withdrew consent 05/27 to not wanting to pursue treatment options. She has a history of LE arterial stent placement and declines to go through any further procedures. She is happy with the plan to go to an assisted living and the current plan is for dispo on 12/11. Plan to continue OT/PT/ST as needed. TASHIA OVIEDO DO 12/07/18 2137: Supervisory-Addendum Brief Verification & Attestation Participated in pt care: history, MDM, physical Personally performed: exam, history, MDM, supervision of care Care discussed with: Medical Student Procedures: n/a Results interpretation: Verified all documentation Verification and Attestation of Medical Student E/M Service A medical student performed and documented this service in my presence. I reviewed and verified all information documented by the medical student and made modifications to such information, when appropriate. I personally performed the physical exam and medical decision making. Tashia Oviedo, Dec 07, 2018,21:37 [facility] Dec 07, 2018 10:19 TASHIA OVIEDO DO Dec 07, 2018 21:37
[2018-12-07] MEDS: ENOXAPARIN 40 MG/0.4 ML (LOVENOX) SYR SC SCH (11:08)
--- NOTE | 2018-12-07 11:46 | Physical Therapy Daily Note ---
PT Daily Note-Current Subjective Pt sitting in chair on pillows to elevate seat upon arrival. Pt agrees to PT. Pain Numeric Pain Scale: 4 Location: Right Location Body Site: Shoulder Pain Description: Ache Mental Status Patient Orientation: Person, Place, Time, Situation Transfers Therapy Code Descriptions/Definitions Functional [place] Measure: 0=Not Assessed/NA 4=Minimal Assistance 1=Total Assistance 5=Supervision or Setup 2=Maximal Assistance 6=Modified [place] 3=Moderate Assistance 7=Complete [place] Therapy Quality Codes: 6 Independent with activity with or without an assistive device 5 Patient requires set up or clean up by helper. Patient completes activity by themselves 4 Supervision or touching assist (CGA). [place] provide cues , steadying assist 3 The helper provides less than half the effort to complete the activity 2 The helper provides more than half the effort to complete the activity 1 Dependent. The helper does all the effort to complete an activity 7 Patient refused to complete or attempt activity 9 The patient did not perform the activity before the current illness or injury 88 Not attempted due to Medical conditions or safety concerns Scootin Sit to/from Stand: 4 Sit to Stand (QC): 4 Weight Bearing Full Weight Bearing Full Weight Bearing sling right UE; Physician reports she may use her right UE for use in a platform walker. Gait Training Does the Patient Walk?: Yes Gait (FIM): 5 Distance (FIM): 3=150 ft Distance: 150' Walk 10 feet (QC): 5 Walk 50 ft with 2 Turns(QC): 5 Walk 150 ft (QC): 5 Gait Level of Assist: 5 Gait Persons Needed: 1 Gait Assistive Device: FWW Pt is walking better without platform on walker and reports feeling more comfortable. Wheelchair Training Does the Pt Use a Wheelchair?: No Exercises Seated Therapy Exercises: Ankle pumps, Long arc quads, Hip flexion, Kicking activity Seated Reps: 15 Standing: Hamstring curls, Heel/toe raises, 3 way Ex=Flex, Abd, Ext, Marching, Mini squats Standing Reps: 20 NuStep Minutes: 15 NuStep Workload: 5 Treatments Pt transfers from chair to standing. Pt ambulates in hallway before using NuStep for 15m at WL 5. Pt takes RB as needed then completes Standing EX at //bars. Pt takes short RB then completes Seated EX before walking in hallway. Pt returns to room to rest in chair. Pt has all needs met, call light next to pt. Assessment Current Status: Good Progress Pt continues to improve with mobility and transfers, although still needing elevated seated surface for more independent transfer. PT Short Term Goals Short Term Goals Time Frame: Nov 29, 2018 Transfers (B,C,W/C) (FIM): 4 Gait (FIM): 4 PT Assessment Services Manager Goals Usp Goals PT Assessment Services Manager Goals Time Frame: Dec 14, 2018 Transfers (B,C,W/C) (FIM): 6 Sit to Lying (QC): 6 Lying-Sitting on Side/Bed(QC): 6 Sit to Stand (QC): 6 Rollin Roll Left to Right (QC): 6 Chair/Oio-gv-Jhvcu Xfer(QC): 6 Car Transfer (QC): 6 Does the Patient Walk: Yes Gait (FIM): 6 Gait distance (FIM): 3=150 ft Walk 10 feet (QC): 6 Walk 10ft-Uneven Surface(QC): 6 Walk 50ft with 2 Turns (QC): 6 Walk 150 ft (QC): 6 Gait Assistive Device: FWW Stairs (FIM): 2 # of Steps: 4 1 Step (curb) (QC): 6 4 Steps (QC): 6 12 Steps (QC): 88 Picking up an Object (QC): 88 PT Plan Problem List Problem List: Activity Tolerance, Transfer Treatment/Plan Treatment Plan: Continue Plan of Care Treatment Plan: Bed Mobility, Education, Functional Activity [place], Functional Strength, Group Therapy, Gait, Safety, Therapeutic Exercise, Transfers Treatment Duration: Dec 14, 2018 Frequency: At least 5 of 7 days/Wk (IRF) Estimated Hrs Per Day: 1.5 hours per day Patient and/or Family Agrees t: Yes Safety Risks/Education Patient Education: Gait Training, Transfer Techniques, Correct Positioning, Safety Issues Teaching Recipient: Patient Teaching Methods: Discussion Response to Teaching: Verbalize Understanding Time/GCodes Time In: 1030 Time Out: 1145 Total Billed Treatment Time: 75 Total Billed Treatment 1, GT x2 (30m), EX x2 (30m) & FA (15m) G Codes Necessary: IRENE Pagan VENEER MEASURER Dec 07, 2018 11:46
--- NOTE | 2018-12-07 12:54 | Cardiology Progress Note ---
Subjective Date Seen by Provider: Dec 07, 2018 Time Seen by Provider: 12:53 Subjective/Events-last exam patient is sitting in a chair, feeling better. No new complaint Review of Systems General: No Chills, No Night Sweats, No Fatigue, No Malaise, No Appetite, No Other HEENT: No Head Aches, No Visual Changes, No Eye Pain, No Ear Pain, No Dysphasia, No Sinus Congestion, No Post Nasal Drip, No Sore Throat, No Other Pulmonary: No Dyspnea, No Cough, No Pleuritic Chest Pain, No Other Cardiovascular: No: Chest Pain, Palpitations, Orthopnea, Paroxysmal Noc. Dyspnea, Edema, Lt Headedness, Other Objective-Cardiology Exam Last Set of Vital Signs Vital Signs 12/07/18 12/07/18 12/07/18 06:35 07:11 09:00 Temp 98.2 Pulse 97 Resp 16 B/P (MAP) 129/63 (85) Pulse Ox 92 O2 Delivery Room Air Capillary Refill : Less Than 3 Seconds I&O Intake and Output 12/07/18 00:00 Intake Total 980 ml Balance 980 ml Intake Oral 980 ml # Voids 5 General: Alert, Oriented X3, Cooperative, No Acute Distress HEENT: Atraumatic, PERRLA Neck: Supple, No JVD, No Thyromegaly Lungs: Clear to Auscultation, Normal Air Movement Heart: Regular Rate, Normal S1, Normal S2, No Murmurs Abdomen: Normal Bowel Sounds, Soft, No Tenderness, No Hepatosplenomegaly, No Masses Extremities: No Clubbing, No Cyanosis, No Edema, No Tenderness/Swelling Skin: No Rashes, No Breakdown, No Significant Lesion Neuro: Normal Speech, Strength at 5/5 X4 Ext, Normal Tone, Sensation Intact Psych/Mental Status: Mental Status NL, Mood NL A/P-Cardiology Admission Diagnosis Chest pain CAD CHF HTN Assessment/Plan Chest pain, non specific etiology, right sided chest and shoulder pain, atypical in nature, secondary to clavicle fracture, reporting improvement Sinus tachycardia, unable to tolerate higher dose of beta fadi secondary to hypotension, heart rate better, tolerating meds well, continue to monitor CAD- reported history of stent placement in the past. Follows with Dr. Marrero as outpatient. CHF- 2D Echo done November 2018 revealed EF 35-40%. Maintained on Entresto, beta fadi. Labile HTN, better control at this time, continue on current medications and continue to monitor. 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 Managed by primary care team Elevated LFT's- Lipitor d/c'd. underwent Liver US last week which was WNL, improving, continue to monitor History of frequent falls at home Right clavicle fracture secondary to fall. Clinical Quality Measures DVT/VTE Risk/Contraindication: Risk Factor Score Per Nursin RFS Level Per Nursing on Admit: 4+=Very High NICOLE DE LOS SANTOS MD Dec 07, 2018 12:54
--- NOTE | 2018-12-07 14:42 | NUR ---
Keila with [facility] here to evaluate patient for admission. Patient has been accepted and is scheduled to discharge, December 08. Patient will receive both PT/OT, provided by the facility.
--- NOTE | 2018-12-07 14:56 | Speech Therapy Daily Note ---
Speech Daily Progress Note Subjective Date Seen by Provider: Dec 07, 2018 Time Seen by Provider: 00:30 The patient states her legs are not as swollen and are feeling better today. Objective The patient completed a series of problem solving tasks related to her daily needs with 90% accuracy given minimal cues. Her processing time for daily needs is noted to have significantly improved. Assessment Assessment Current Status: Good Progress Treatment Plan Continue Plan of Care Communication Comprehension: 6 Expression: 6 Social Cognition Social Interaction: 7 Problem Solvin Memory: 5 Speech Short Term Goals Short Term Goals Short Term Goals Patient will demonstrate simple problem solving and memory with 80% accuracy when given minimal cues Comprehension: 6 Expression: 6 Social Interaction: 7 Problem Solvin Memory: 5 Speech Nursing Home Goals Barking Machine Feeder Goals Patient will improve cognitive-communication necessary for safety and daily living tasks with minimal assist Comprehension: 6 Expression: 6 Social Interaction: 7 Problem Solvin Memory: 5 Speech-Plan Patient/Family Goals Patient/Family Goals: The patient is scheduled to be discharged to a local assisted living facility on 12/11/2018. Treatment Plan Speech Therapy Treatment Plan: Continue Plan of Care Patient is progressing well with ST goals. Treatment Duration: Dec 06, 2018 Frequency: 5 times per week Estimated Hrs Per Day: .5 hour per day Rehab Potential: Good Barriers to Learning: Patient has mild cognitive deficits. Pt/Family Agrees to Plan: Yes Safety Risks/Education Teaching Recipient: Patient Teaching Methods: Demonstration, Discussion Response to Teaching: Verbalize Understanding, Return Demonstration Education Topics Provided: Continued safety upon her discharge. Time Speech Therapy Time In: 10:00 Speech Therapy Time Out: 10:30 Total Billed Time: 30 Billed Treatment Time 1, KAYLEN Bowden Dec 07, 2018 14:56
[2018-12-07] MEDS: GABAPENTIN 100 MG (NEURONTIN) CAP PO SCH (16:00)
[2018-12-07 18:00] VITALS: BP 120/69
--- NOTE | 2018-12-07 18:00 | NUR ---
A FAIRLY GOOD DAY. TOLERATES KEEPING ANKLES ELEVATED IN BED WELL. INCONTINENT OF LOOSE STOOL THIS AFTERNOON.
[2018-12-07] MEDS: AMITRIPTYLINE 25 MG (ELAVIL) TAB PO SCH (20:49)
[2018-12-08] MEDS: HYDROcodone/APAP 5 MG/325 MG (LORTAB) TAB PO PRN (01:53)
[2018-12-08 05:38] VITALS: BP 153/78
[2018-12-08] MEDS: MULTIVIT W/MINERALS TAB (THERAGRAN M) PO SCH (06:16)
[2018-12-08] MEDS: CYANOCOBALAMIN 1,000 MCG (VITAMIN B-12) TABLET PO SCH (06:16)
[2018-12-08 06:45] LABS: BASOPHILS # (AUTO) 0.1 10^3/uL (0.0-0.1); BASOPHILS % (AUTO) 1 % (0-10); EOSINOPHILS # (AUTO) 0.4 10^3/uL (0.0-0.3); EOSINOPHILS % (AUTO) 6 % (0-10); HEMATOCRIT 33 % (35-52); LYMPHOCYTES # (AUTO) 0.6 X 10^3 (1.0-4.0); LYMPHOCYTES % (AUTO) 10 % (12-44); MEAN CORPUSCULAR HEMOGLOBIN 29 PG (25-34); MEAN CORPUSCULAR HGB CONC 31 G/DL (32-36); MEAN CORPUSCULAR VOLUME 94 FL (80-99); MEAN PLATELET VOLUME 10.1 FL (7.4-10.4); MONOCYTES # (AUTO) 0.9 X 10^3 (0.0-1.0); MONOCYTES % (AUTO) 15 % (0-12); NEUTROPHILS % (AUTO) 68 % (42-75); PLATELET COUNT 337 10^3/uL (130-400); RED CELL DISTRIBUTION WIDTH 13.4 % (10.0-14.5)
[2018-12-08 07:16] LABS: ALBUMIN 3.1 GM/DL (3.2-4.5); BILIRUBIN,TOTAL 0.3 MG/DL (0.1-1.0); CALCIUM 8.5 MG/DL (8.5-10.1); CREATININE SERUM 1.07 MG/DL (0.60-1.30); POTASSIUM 4.6 MMOL/L (3.6-5.0); TOTAL PROTEIN 5.7 GM/DL (6.4-8.2)
--- NOTE | 2018-12-08 08:18 | Occupational Ther Daily Note ---
OT Current Status-Daily Note Subjective Pt sitting in chair at start of session, stated she had diarrhea yesterday and agreed to wanting to shower and focus OT tx on ADLs. Pt reported feeling better this morning. Mental Status/Objective Patient Orientation: Normal For Age Therapy Code Descriptions/Definitions Functional [place] Measure: 0=Not Assessed/NA 4=Minimal Assistance 1=Total Assistance 5=Supervision or Setup 2=Maximal Assistance 6=Modified [place] 3=Moderate Assistance 7=Complete [place] ADL-Treatment Therapy Code Descriptions/Definitions Functional [place] Measure: 0=Not Assessed/NA 4=Minimal Assistance 1=Total Assistance 5=Supervision or Setup 2=Maximal Assistance 6=Modified [place] 3=Moderate Assistance 7=Complete [place] Therapy Quality Codes: 6 Independent with activity with or without an assistive device 5 Patient requires set up or clean up by helper. Patient completes activity by themselves 4 Supervision or touching assist (CGA). [place] provide cues , steadying assist 3 The helper provides less than half the effort to complete the activity 2 The helper provides more than half the effort to complete the activity 1 Dependent. The helper does all the effort to complete an activity 7 Patient refused to complete or attempt activity 9 The patient did not perform the activity before the current illness or injury 88 Not attempted due to Medical conditions or safety concerns Eating (FIM): 6 (increased time) Eating (QC): 6 Grooming (FIM): 6 (mod I standing a sink with walker. ) Oral Hygiene (QC): 6 Bathing (FIM): 5 (SBA for safety/balance. Used shower chair and grab bars) Bathing Location: L Arm, R Arm, L Upper Leg, R Upper Leg, L Lower Leg (including foot), R Lower Leg (including foot), Chest, Abdomen, Buttocks, Perineal Area Shower/Bathe Self (QC): 4 Upper Body (FIM): 6 (increased time, button up shirt) Upper Body Dressing (QC): 5 Lower Body Dressing (FIM): 4 (Pt was able to put on pants/underpants with SBA during standing. Pt required assistance putting on R shoe, and pulling up L sock. Pt completed 8/10 parts.) Lower Body Dressing (QC): 4 (SBA) On/Off Footwear (QC): 3 (pt required assistance pulling up L sock after pt threaded it onto foot, and required assistance putting on R shoe.) Transfers (B, C, W/C) (FIM): 5 (SBA for safety using RW for sit to stand ) Shower Transfer(FIM): 5 (SBA, pt able to utilize grab bars and shower chair for sit to stand.) Pt completed 60 min ADL session this AM, requiring additional time due to limited RUE ROM. Pt performed transfers SBA from chair and shower chair. Post OT session, pt sitting in chair, call light in reach and needs met. Education OT Patient Education: Correct positioning, Energy conservation, Modified ADL techniques, Progress toward Goal/Update tx plan, Purpose of tx/functional activities, Transfer techniques Teaching Recipient: Patient Teaching Methods: Demonstration Response to Teaching: Verbalize Understanding, Return Demonstration OT Short Term Goals Short Term Goals Time Frame: Dec 06, 2018 Eating(FIM): 6 Grooming(FIM): 5 Bathing(FIM): 4 Bathing Location: L Arm, R Arm, L Upper Leg, R Upper Leg, L Lower Leg (including foot), R Lower Leg (including foot), Chest, Abdomen, Buttocks, Perineal Area Upper Body Dressing(FIM): 4 Lower Body Dressing(FIM): 4 Toileting(FIM): 4 Transfers (B,C,W/C) (FIM): 4 Toilet/Commode Transfer(FIM): 4 Shower Transfer(FIM): 4 Comprehension(FIM): 6 Expression(FIM): 6 Social Interaction(FIM): 7 Problem Solving(FIM): 5 Memory(FIM): 5 Additional Short Term Goals: 1-Demonstrate ADL Tasks, 2-Verbalize Understanding, 3-ImproveStrength/Desean 1=Demonstrate adherence to instructed precautions during ADL tasks. 2=Patient will verbalize/demonstrate understanding of assistive ya roland/modifications for ADL. 3=Patient will improve strength/tolerance for activity to enable patient to perform ADL's. OT Skilled Nursing Goals Rice Drier Operator Goals Time Frame: Dec 20, 2018 Eating (FIM): 7 Eating (QC): 6 Groomin Oral Hygiene (QC): 6 Bathing(FIM): 6 Bathing Location: L Arm, R Arm, L Upper Leg, R Upper Leg, L Lower Leg (inclu ding foot), R Lower Leg (including foot), Chest, Abdomen, Buttocks, Perineal Area Shower/Bathe Self (QC): 6 Upper Body Dressing(FIM): 6 Upper Body Dressing (QC): 6 Lower Body Dressing(FIM): 6 Lower Body Dressing (QC): 6 On/Off Footwear (QC): 6 Toileting(FIM): 6 Toileting Hygiene (QC): 6 Transfers (B,C,W/C) (FIM): 6 Toilet/Commode Transfer(FIM): 6 Toilet/Commode Transfer (QC): 6 Shower Transfer(FIM): 6 Comprehension(FIM): 6 Expression (FIM): 6 Social Interaction(FIM): 7 Problem Solving(FIM): 5 Memory(FIM): 5 Additional Goals: 1-Demonstrate ADL Tasks, 2-Verbalize Understanding, 3- ImproveStrength/Desean 1=Demonstrate adherence to instructed precautions during ADL tasks. 2=Patient will verbalize/demonstrate understanding of assistive devices/modifications for ADL. 3=Patient will improve strength/tolerance for activity to enable patient to perform ADL's. OT Education/Plan Problem List/Assessment Assessment: Decreased Activ Tolerance, Impaired I ADL's, Restricted Funct UE ROM Discharge Recommendations Plan/Recommendations: Continue POC Therapy D/C Recommendations: Assisted Living Equpiment Recommendations-D/C: [place] Attendant, Sock Aide, Dressing Stick Treatment Plan/Plan of Care Patient would benefit from OT for education, treatment and training to promote independence in ADL's, mobility, safety and/or upper extremity function for ADL's. Plan of Care: ADL Retraining, Caregiver Training, Functional Mobility, Group Exercise/Act as Ind, UE Funct Exercise/Act Treatment Duration: Dec 20, 2018 Frequency: At least 5 of 7 days/Wk (IRF) Estimated Hrs Per Day: 1 hour per day (60-90 minutes per day) Agreement: Yes Rehab Potential: Good Time/GCodes Start Time: 08:00 Stop Time: 09:00 Total Time Billed (hr/min): 60 Billed Treatment Time ADL 4 units RENATA MELO OT Dec 08, 2018 08:17
--- NOTE | 2018-12-08 08:42 | PM&R Progress Note ---
Subjective HPI/CC On Admission Date Seen by Provider: Dec 08, 2018 Time Seen by Provider: 08:45 Chief Complaint: Debility following fall with right clavicle fracture HPI: This is a 88 yoWF clinic pt of Dr. Dobbins and Dr. Marrero cardiology in [place] who has a PMH of known lung mass did not pursue that a few years ago who presents to inpatient rehab following an observation stay after a fall sustaining a right clavicle fracture. She lives at home alone shes been falling a lot and has become quite debilitated and the goal is to return home to independent living with ADL independence and ambulatory status independent. 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 She does recall meeting me. At this current time pt is very well controlled is aware of the additional lung mass that she has no intention of treating and Dr. Hoskins updated her on that fact and overall she's ready to get started to recover and ultimately return back to home. Subjective/Events-last exam Neuropathy still an issue Diff getting OOB from chair and bed Elevating legs when in bed Plan for discharge on Tuesday to assisted living Using IS Bowels are moving Reviewed therapy notes Conferred with RN Check meds and labs Review of Systems Musculoskeletal: leg pain, foot pain Objective Exam Vital Signs Vital Signs Date Time Temp Pulse Resp B/P (MAP) Pulse Ox O2 Delivery O2 Flow Rate FiO2 12/08/18 21:46 Room Air 12/08/18 20:03 92 12/08/18 16:44 96.8 91 14 123/63 (83) Capillary Refill : Less Than 3 Seconds General Appearance: No Apparent Distress, WD/WN, Chronically ill HEENT: PERRL/EOMI, Normal ENT Inspection Neck: Full Range of Motion, Normal Inspection, Non Tender, Supple, Limited Range of Motion (to the right) Respiratory: Chest Non Tender, Lungs Clear, Normal Breath Sounds, No Accessory Muscle Use, No Respiratory Distress Cardiovascular: No Edema, No Gallop, No JVD, No Murmur, Tachycardia Gastrointestinal: Normal Bowel Sounds, Soft Back: Normal Inspection, No CVA Tenderness, No Vertebral Tenderness Extremity: Normal Capillary Refill, Normal Inspection, Normal Range of Motion (except right arm), Non Tender, No Calf Tenderness Neurologic/Psychiatric: Alert, Oriented x3, No Motor/Sensory Deficits, Normal Mood/Affect, 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 FIM Transfers Therapy Code Descriptions/Definitions Functional [place] Measure: 0=Not Assessed/NA 4=Minimal Assistance 1=Total Assistance 5=Supervision or Setup 2=Maximal Assistance 6=Modified [place] 3=Moderate Assistance 7=Complete [place] Therapy Quality Codes: 6 Independent with activity with or without an assistive device 5 Patient requires set up or clean up by helper. Patient completes activity by themselves 4 Supervision or touching assist (CGA). [place] provide cues , steadying assist 3 The helper provides less than half the effort to complete the activity 2 The helper provides more than half the effort to complete the activity 1 Dependent. The helper does all the effort to complete an activity 7 Patient refused to complete or attempt activity 9 The patient did not perform the activity before the current illness or injury 88 Not attempted due to Medical conditions or safety concerns Transfers (B, C, W/C) (FIM): 4 (Pt required Min A to get out of chair X1, SBA X3) Scootin Rollin Roll Left to Right (QC): 4 Supine to/from Sit: 4 Sit to/from Stand: 4 Sit to Lying (QC): 3 Sit to Stand (QC): 4 Chair/Rhg-zn-Kokkl Xfer(QC): 4 Bed to/from Chair: 4 Car Transfer (QC): 4 Gait Training Does the Patient Walk?: Yes Gait (FIM): 5 Distance (FIM): 3=150 ft Distance: 150' Walk 10 feet (QC): 5 Walk 50 ft with 2 Turns(QC): 5 Walk 150 ft (QC): 5 Walking 10ft/uneven surface-QC: 3 Gait Level of Assist: 5 Gait Persons Needed: 1 Gait Assistive Device: FWW Wheelchair Training Does the Pt Use a Wheelchair?: No Stair Training Stair Training: Handrails/: uses walker Stairs (FIM): 2 #of Steps: 4 1 Step (curb) (QC): 3 (mod assist to step up) 4 Steps (QC): 88 12 Steps (QC): 88 Stairs: Pattern: Step to Level of Assist: 4 Balance Picking up an Object (QC): 88 Mental Status/Objective Comprehension: 6 Expression: 6 Social Interaction: 7 Problem Solvin Memory: 5 ADL-Treatment Feedin (pt required increased time to complete task.) Eating (QC): 6 Groomin (stand at sink MOD I with use of platform walker for balance. ) Oral Hygiene (QC): 6 Bathin (SBA for safety/ balacne. noted useof SC and GB. ) Bathing Location: L Arm, R Arm, L Upper Leg, R Upper Leg, L Lower Leg (including foot), R Lower Leg (including foot), Chest, Abdomen, Buttocks, Perineal Area Shower/Bathe Self (QC): 4 Upper Extremity Dressin (button up shirt. increased timing for buttons ) Upper Body Dressing (QC): 5 Lower Extremity Dressin (use of AE. increased timing noted. pt required SBA for sit to stand for safety/ balnace while pulling up pants. pants, tre socks, underpants, tre shoes ) Lower Body Dressing (QC): 4 On/Off Footwear (QC): 6 (use of AE ) Toiletin (increased timing noted. pt able to perform 3/3 toieting tasks ) Toileting Hygiene (QC): 6 Toilet/Commode Transfer: 5 (SBA fro safety/ balance. noted use of GB ) Toilet Transfer (QC): 5 Shower: 5 (noted use of GB. pt able to perform sit to stand with SBA using GB. SC ) 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 but does not wish to have work-up or treatment CAD with stents in place PVD with stents in place Lives alone CHF UTI's Crackles RLL acute-improved with IS use Elevated LFT's limiting APAP and holding statin Right lower leg pre-ulcer consulting Dr Hill Neuropathy Plan: Consult pulmonology is appreciated Stop atorvastatin d/t liver enzymes Stop acetaminophen d/t liver enzymes Repeated echo and viewed results Use tramadol for pain to prevent delirium but does not appear to be working well for her so add Hydrocodone Inpatient rehab protocol Ambulation with walker for fall prevention Regain independence with ADLs with right clavicle fracture and arm in sling Use platform to help navigate ambulation due to clavicle fracture Right arm sling prn to help with the pain IS Control pain with addition of Hydrocodone and that seems to be helping her quite a bit AL at DC Arterial USG studies declined by patient Elevate legs when in bed (1) Fall on same level (2) Congestive heart failure (3) B12 deficiency (4) Recurrent UTI (5) Hyperlipemia (6) PVD (peripheral vascular disease) (7) CAD (coronary artery disease) (8) Coronary arteriosclerosis (9) Clavicle fracture (10) Hypertension (11) Lung mass (12) Peripheral vascular disease Reviewed assessment and plan Pain control Monitor labs closely Abx empiric for bronchial source nut UTI likely source also Lung cancer is presumed Needs AL (1) Fall on same level Status: Acute (2) Congestive heart failure Status: Acute (3) B12 deficiency (4) Recurrent UTI (5) Hyperlipemia (6) PVD (peripheral vascular disease) (7) CAD (coronary artery disease) (8) Coronary arteriosclerosis Status: Chronic (9) Clavicle fracture (10) Hypertension Status: Acute (11) Lung mass (12) Peripheral vascular disease Status: Chronic COLLEEN OVIEDO DO Dec 08, 2018 08:42
[2018-12-08] MEDS: RT-ALBUTEROL SULF 2.5 MG/3 ML PRE-MIX VIAL INH SCH ×3 (08:43→20:03)
[2018-12-08] MEDS: ASPIRIN 81 MG CHEW (CHILDREN'S ASA) PO SCH (09:45)
[2018-12-08] MEDS: SENNA W/DOCUSATE (SENOKOT S) TABLET PO SCH ×2 (09:45→20:56)
[2018-12-08] MEDS: SACUBITRIL/VALSARTAN 24/26 MG (ENTRESTO) TABLET PO SCH ×2 (09:45→20:56)
[2018-12-08] MEDS: ENOXAPARIN 40 MG/0.4 ML (LOVENOX) SYR SC SCH (09:46)
--- NOTE | 2018-12-08 10:06 | Progress Note - Hospitalist ---
[facility] 12/08/18 1006: Progress Note Ms Hampton is improving daily. Was active participant in all therapy today. Was accepted to Assisted Living facility - plan d/c on tuesday. Had an episode of incontinence to loose stool yesterday. Monitor. Continued episodes of claudication in the b/l L/E. Manage pain only per pt. TASHIA LOTT DO 12/09/18 1531: Supervisory-Addendum Brief Verification & Attestation Participated in pt care: history, MDM, physical Personally performed: exam, history, MDM, supervision of care Care discussed with: Medical Student Procedures: n/a Results interpretation: Verified all documentation Verification and Attestation of Medical Student E/M Service A medical student performed and documented this service in my presence. I reviewed and verified all information documented by the medical student and made modifications to such information, when appropriate. I personally performed the physical exam and medical decision making. Tashia Lott Dec 09, 2018,15:31 [facility] Dec 08, 2018 10:06 TASHIA LOTT DO Dec 09, 2018 15:31
[2018-12-08] MEDS: LUTEIN 40 MG PO SCH (10:14)
[2018-12-08] MEDS: MOVE FREE JOINT HEALTH PO SCH (10:14)
[2018-12-08] MEDS: A & D OINT 113 GM TUBE TOP SCH (10:19)
--- NOTE | 2018-12-08 11:13 | Physical Therapy Daily Note ---
PT Daily Note-Current Subjective Pt. agrees to Rx. States she feels she has made slow steady progress Pain Numeric Pain Scale: 5-Moderate Pain Location: Right Location Body Site: Shoulder Pain Description: Ache Mental Status Patient Orientation: Normal For Age Transfers Therapy Code Descriptions/Definitions Functional [place] Measure: 0=Not Assessed/NA 4=Minimal Assistance 1=Total Assistance 5=Supervision or Setup 2=Maximal Assistance 6=Modified [place] 3=Moderate Assistance 7=Complete [place] Therapy Quality Codes: 6 Independent with activity with or without an assistive device 5 Patient requires set up or clean up by helper. Patient completes activity by themselves 4 Supervision or touching assist (CGA). [place] provide cues , steadying assist 3 The helper provides less than half the effort to complete the activity 2 The helper provides more than half the effort to complete the activity 1 Dependent. The helper does all the effort to complete an activity 7 Patient refused to complete or attempt activity 9 The patient did not perform the activity before the current illness or injury 88 Not attempted due to Medical conditions or safety concerns Transfers (B, C, W/C) (FIM): 5 Scootin Rollin Supine to/from Sit: 6 Sit to/from Stand: 5 Weight Bearing Full Weight Bearing Full Weight Bearing sling right UE; Physician reports she may use her right UE for use in a platform walker. Gait Training Does the Patient Walk?: Yes Gait (FIM): 5 Distance (FIM): 3=150 ft (160x2) Gait Level of Assist: 5 Gait Persons Needed: 1 Gait Assistive Device: FWW slow, needs instruction for side stepping in toilet etc Stair Training Stair Training: Handrails/: 2 handrails Stairs (FIM): 2 #of Steps: 4 Stairs: Pattern: Step to Level of Assist: 4 difficulty with right hand arm reaching for rail etc Exercises Supine Ex: Ankle pumps, Quad Set, Glut sets, Heel Slides, Short Arc Quads, Scooting, Straight leg raise, Hip abd/add Supine Reps: 15 NuStep Minutes: 10 NuStep Workload: 5 Treatments toileted SBA Assessment Current Status: Good Progress pain limits some function, needs extra time for task PT Short Term Goals Short Term Goals Time Frame: Nov 29, 2018 Transfers (B,C,W/C) (FIM): 4 Gait (FIM): 4 PT Mechanical Assembler Goals [facility] Goals PT [facility] Goals Time Frame: Dec 14, 2018 Transfers (B,C,W/C) (FIM): 6 Sit to Lying (QC): 6 Lying-Sitting on Side/Bed(QC): 6 Sit to Stand (QC): 6 Rollin Roll Left to Right (QC): 6 Chair/Key-wz-Ohilh Xfer(QC): 6 Car Transfer (QC): 6 Does the Patient Walk: Yes Gait (FIM): 6 Gait distance (FIM): 3=150 ft Walk 10 feet (QC): 6 Walk 10ft-Uneven Surface(QC): 6 Walk 50ft with 2 Turns (QC): 6 Walk 150 ft (QC): 6 Gait Assistive Device: FWW Stairs (FIM): 2 # of Steps: 4 1 Step (curb) (QC): 6 4 Steps (QC): 6 12 Steps (QC): 88 Picking up an Object (QC): 88 PT Plan Treatment/Plan Treatment Plan: Continue Plan of Care Treatment Plan: Bed Mobility, Education, Functional Activity [place], Functional Strength, Group Therapy, Gait, Safety, Therapeutic Exercise, Transfers Treatment Duration: Dec 14, 2018 Frequency: At least 5 of 7 days/Wk (IRF) Estimated Hrs Per Day: 1.5 hours per day Patient and/or Family Agrees t: Yes Safety Risks/Education Patient Education: Gait Training, Transfer Techniques, Steps, Correct Posi tioning, Disease Process, Safety Issues Teaching Recipient: Patient Teaching Methods: Demonstration, Discussion Response to Teaching: Verbalize Understanding, Return Demonstration, Reinforce ment Needed Time/GCodes Time In: 1000 Time Out: 1100 Total Billed Treatment Time: 60 Total Billed Treatment 1,GT20m,FA25m,EX15m G Codes Necessary: DARRYL Felix BUSINESS CONTINUITY DIRECTOR Dec 08, 2018 11:13
--- NOTE | 2018-12-08 13:14 | Speech Therapy Daily Note ---
Speech Daily Progress Note Subjective Date Seen by Provider: Dec 08, 2018 Time Seen by Provider: 00:30 The patient was resting in her chair when I entered her room. She states she will get to go home on Tuesday. Objective The patient completed a series of problem solving activities she may encounter upon her admit to the [facility] with 90% given minimal cues. Assessment Assessment Current Status: Good Progress Treatment Plan Continue Plan of Care Communication Comprehension: 6 Expression: 6 Social Cognition Social Interaction: 7 Problem Solvin Memory: 5 Speech Short Term Goals Short Term Goals Short Term Goals Patient will demonstrate simple problem solving and memory with 80% accuracy when given minimal cues Comprehension: 6 Expression: 6 Social Interaction: 7 Problem Solvin Memory: 5 Speech Manager Pediatric Goals Prison Goals Patient will improve cognitive-communication necessary for safety and daily living tasks with minimal assist Comprehension: 6 Expression: 6 Social Interaction: 7 Problem Solvin Memory: 5 Speech-Plan Patient/Family Goals Patient/Family Goals: The patient is scheduled to discharge to the [facility] on Tuesday. Treatment Plan Speech Therapy Treatment Plan: Continue Plan of Care The patient has made good progress as a result of skilled ST services. Treatment Duration: Dec 11, 2018 Frequency: 5 times per week Estimated Hrs Per Day: .5 hour per day Rehab Potential: Good Barriers to Learning: Patient has mild cognitive deficits. Pt/Family Agrees to Plan: Yes Safety Risks/Education Teaching Recipient: Patient Teaching Methods: Demonstration, Discussion Response to Teaching: Verbalize Understanding, Return Demonstration Education Topics Provided: Continued safety upon her discharge to the [facility] Time Speech Therapy Time In: 09:30 Speech Therapy Time Out: 10:00 Total Billed Time: 30 Billed Treatment Time 1, KAYLEN Bowden Dec 08, 2018 13:14
--- NOTE | 2018-12-08 14:43 | Therapy Group Daily Note ---
Therapy Daily Group Note Patient Education Topic Other List Below (pain management strategies, ARU orientation) Exercises LE Seated Exercise, UE Exercise Session Ratio (pt:therapist): 4:1 Goal of Session: Education on ARU Expectations, Other (list) (explain pain and pain management strategies) Goal Met for this Session: Yes Pt Benefit of Group: Contributions to Others, Socialization, Other (better understanding of pain and ways to alleviate) Other/Notes Pt. participated in group PT OT session. Pt. ambulated to from group with SBA and FWW. Pts shared their names, home town and a little about themselves. Education focused on orientation to ARU as well as ways to manage pain ie, massage, positioning, monitored heat and cold, vibration, trigger point release tools etc. Pt. utilized MHP on her right shoulder during group and was educated on its use. Pts. were taught and participated in seated thoracic extension stretch, hamstring stretch as well as prayer hand stretches and UE stretches. Pts were all interactive and shared ideas and experiences regarding pain management. Pt. to room after Jadon Harper at hand Start Time: 13:00 Stop Time: 14:20 Total Billed Treatment Time: 80 Total Billed Treatment 1,GRP DARRYL NAM SHIFT LEADER Dec 08, 2018 14:43
[2018-12-08 16:44] VITALS: BP 123/63
[2018-12-08] MEDS: GABAPENTIN 100 MG (NEURONTIN) CAP PO SCH (16:59)
[2018-12-08] MEDS: AMITRIPTYLINE 25 MG (ELAVIL) TAB PO SCH (20:56)
[2018-12-09 05:48] VITALS: BP 152/69
[2018-12-09] MEDS: MULTIVIT W/MINERALS TAB (THERAGRAN M) PO SCH (06:05)
[2018-12-09] MEDS: CYANOCOBALAMIN 1,000 MCG (VITAMIN B-12) TABLET PO SCH (06:05)
[2018-12-09] MEDS: RT-ALBUTEROL SULF 2.5 MG/3 ML PRE-MIX VIAL INH SCH ×3 (08:08→19:48)
[2018-12-09] MEDS: SACUBITRIL/VALSARTAN 24/26 MG (ENTRESTO) TABLET PO SCH ×2 (08:19→20:45)
[2018-12-09] MEDS: ASPIRIN 81 MG CHEW (CHILDREN'S ASA) PO SCH (08:20)
[2018-12-09] MEDS: MOVE FREE JOINT HEALTH PO SCH (08:21)
[2018-12-09] MEDS: LUTEIN 40 MG PO SCH (08:21)
[2018-12-09] MEDS: A & D OINT 113 GM TUBE TOP SCH (08:22)
[2018-12-09] MEDS: SENNA W/DOCUSATE (SENOKOT S) TABLET PO SCH ×2 (08:23→20:45)
[2018-12-09] MEDS: ENOXAPARIN 40 MG/0.4 ML (LOVENOX) SYR SC SCH (11:20)
--- NOTE | 2018-12-09 11:47 | PM&R Progress Note ---
Subjective HPI/CC On Admission Date Seen by Provider: Dec 09, 2018 Time Seen by Provider: 11:00 Chief Complaint: Debility following fall with right clavicle fracture HPI: This is a 88 yoWF clinic pt of Dr. Dobbins and Dr. Marrero cardiology in [place] who has a PMH of known lung mass did not pursue that a few years ago who presents to inpatient rehab following an observation stay after a fall sustaining a right clavicle fracture. She lives at home alone shes been falling a lot and has become quite debilitated and the goal is to return home to independent living with ADL independence and ambulatory status independent. 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 She does recall meeting me. At this current time pt is very well controlled is aware of the additional lung mass that she has no intention of treating and Dr. Hoskins updated her on that fact and overall she's ready to get started to recover and ultimately return back to home. Subjective/Events-last exam Neuropathy still an issue likely superimposed on PVD of which she has declined testing to confirm that Diff getting OOB from chair and bed but she is able to do it with rocking and raising the bed of which I witnessed this morning Elevating legs when in bed Plan for discharge on Tuesday to assisted living Using IS Bowels are moving Reviewed therapy notes Conferred with RN Check meds and labs Review of Systems General: Fatigue Musculoskeletal: leg pain Objective Exam Vital Signs Vital Signs Date Time Temp Pulse Resp B/P (MAP) Pulse Ox O2 Delivery O2 Flow Rate FiO2 12/09/18 15:04 96 Room Air 12/09/18 05:48 97.8 95 18 152/69 (96) Capillary Refill : Less Than 3 Seconds General Appearance: No Apparent Distress, WD/WN, Chronically ill HEENT: PERRL/EOMI, Normal ENT Inspection Neck: Full Range of Motion, Normal Inspection, Non Tender, Supple, Limited Range of Motion (to the right) Respiratory: Chest Non Tender, Lungs Clear, Normal Breath Sounds, No Accessory Muscle Use, No Respiratory Distress Cardiovascular: No Edema, No Gallop, No JVD, No Murmur, Tachycardia Gastrointestinal: Normal Bowel Sounds, Soft Back: Normal Inspection, No CVA Tenderness, No Vertebral Tenderness Extremity: Normal Capillary Refill, Normal Inspection, Normal Range of Motion (except right arm), Non Tender, No Calf Tenderness Neurologic/Psychiatric: Alert, Oriented x3, No Motor/Sensory Deficits, Normal Mood/Affect, 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 FIM Transfers Therapy Code Descriptions/Definitions Functional Teller Measure: 0=Not Assessed/NA 4=Minimal Assistance 1=Total Assistance 5=Supervision or Setup 2=Maximal Assistance 6=Modified Teller 3=Moderate Assistance 7=Complete Teller Therapy Quality Codes: 6 Independent with activity with or without an assistive device 5 Patient requires set up or clean up by helper. Patient completes activity by themselves 4 Supervision or touching assist (CGA). [place] provide cues , steadying assist 3 The helper provides less than half the effort to complete the activity 2 The helper provides more than half the effort to complete the activity 1 Dependent. The helper does all the effort to complete an activity 7 Patient refused to complete or attempt activity 9 The patient did not perform the activity before the current illness or injury 88 Not attempted due to Medical conditions or safety concerns Transfers (B, C, W/C) (FIM): 5 Scootin Rollin Roll Left to Right (QC): 4 Supine to/from Sit: 6 Sit to/from Stand: 5 Sit to Lying (QC): 3 Sit to Stand (QC): 4 Chair/Cco-xq-Wofpn Xfer(QC): 4 Bed to/from Chair: 4 Car Transfer (QC): 4 Gait Training Does the Patient Walk?: Yes Gait (FIM): 5 Distance (FIM): 3=150 ft (160x2) Distance: 150' Walk 10 feet (QC): 5 Walk 50 ft with 2 Turns(QC): 5 Walk 150 ft (QC): 5 Walking 10ft/uneven surface-QC: 3 Gait Level of Assist: 5 Gait Persons Needed: 1 Gait Assistive Device: FWW Wheelchair Training Does the Pt Use a Wheelchair?: No Stair Training Stair Training: Handrails/: 2 handrails Stairs (FIM): 2 #of Steps: 4 1 Step (curb) (QC): 3 (mod assist to step up) 4 Steps (QC): 88 12 Steps (QC): 88 Stairs: Pattern: Step to Level of Assist: 4 Balance Picking up an Object (QC): 88 Mental Status/Objective Comprehension: 6 Expression: 6 Social Interaction: 7 Problem Solvin Memory: 5 ADL-Treatment Feedin (increased time) Eating (QC): 6 Groomin (mod I standing a sink with walker. ) Oral Hygiene (QC): 6 Bathin (SBA for safety/balance. Used shower chair and grab bars) Bathing Location: L Arm, R Arm, L Upper Leg, R Upper Leg, L Lower Leg (including foot), R Lower Leg (including foot), Chest, Abdomen, Buttocks, Perineal Area Shower/Bathe Self (QC): 4 Upper Extremity Dressin (increased time, button up shirt) Upper Body Dressing (QC): 5 Lower Extremity Dressin (Pt was able to put on pants/underpants with SBA during standing. Pt required assistance putting on R shoe, and pulling up L sock. Pt completed 8/10 parts.) Lower Body Dressing (QC): 4 (SBA) On/Off Footwear (QC): 3 (pt required assistance pulling up L sock after pt threaded it onto foot, and required assistance putting on R shoe.) Toiletin (increased timing noted. pt able to perform 3/3 toieting tasks ) Toileting Hygiene (QC): 6 Toilet/Commode Transfer: 5 (SBA fro safety/ balance. noted use of GB ) Toilet Transfer (QC): 5 Shower: 5 (SBA, pt able to utilize grab bars and shower chair for sit to stand.) 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 but does not wish to have work-up or treatment CAD with stents in place PVD with stents in place Lives alone CHF UTI's Crackles RLL acute-improved with IS use Elevated LFT's limiting APAP and holding statin Right lower leg pre-ulcer consulting Dr Hill Neuropathy Plan: Consult pulmonology is appreciated Stop atorvastatin d/t liver enzymes Stop acetaminophen d/t liver enzymes Repeated echo and viewed results Use tramadol for pain to prevent delirium but does not appear to be working well for her so add Hydrocodone Inpatient rehab protocol Ambulation with walker for fall prevention Regain independence with ADLs with right clavicle fracture and arm in sling Use platform to help navigate ambulation due to clavicle fracture Right arm sling prn to help with the pain IS Control pain with addition of Hydrocodone and that seems to be helping her quite a bit AL at DC Arterial USG studies declined by patient but likely a component for PVD too Elevate legs when in bed (1) Fall on same level (2) Congestive heart failure (3) B12 deficiency (4) Recurrent UTI (5) Hyperlipemia (6) PVD (peripheral vascular disease) (7) CAD (coronary artery disease) (8) Coronary arteriosclerosis (9) Clavicle fracture (10) Hypertension (11) Lung mass (12) Peripheral vascular disease Reviewed assessment and plan Pain control Monitor labs closely Abx empiric for bronchial source nut UTI likely source also Lung cancer is presumed Needs AL (1) Fall on same level Status: Acute (2) Congestive heart failure Status: Acute (3) B12 deficiency (4) Recurrent UTI (5) Hyperlipemia (6) PVD (peripheral vascular disease) (7) CAD (coronary artery disease) (8) Coronary arteriosclerosis Status: Chronic (9) Clavicle fracture (10) Hypertension Status: Acute (11) Lung mass (12) Peripheral vascular disease Status: Chronic COLLEEN OVIEDO DO Dec 09, 2018 11:47
--- NOTE | 2018-12-09 12:25 | Wound Care Assessment ---
Wound Care Assessment Date Seen by Provider: Dec 09, 2018 Time Seen by Provider: 12:25 Chief Complaint Scaly R calf skin. HPI The patient is an 88 year old female with complaint of scaly skin of the R calf due to chronic venous insufficiency and bilateral foot pain. She has no palpable pulses. Non-invasive arterial evaluation is recommended and originally accepted. The nurse called back later in the day and stated that the patient wished to decline arterial evaluation. The patient is recommended to elevate her legs above the heart times 2 hours three times a day and at night, cleanse the calves with soap and water, apply A + D ointment daily. The pain that she is experiencing may be ischemic, but the patient declines evaluation. 12/09/18 Interval note: The scaly appearance of the skin of the R calf is improved with A + D ointment. The patient is elevating. Bilateral leg pain about the same. Declines arterial evaluation. Would not recommend compression in the absence of arterial evaluation. New bruise of R upper calf, without ulceration at this time. Will sign off. Past Medical History: Admits Heart Disease (and falls), Admits Peripheral Artery Disease Smoking Status: Never a Smoker Recreational Drug Use: No Alcohol Use: Denies Use Review of Systems Pulmonary: No Dyspnea Cardiovascular: No: Chest Pain Gastrointestinal: No: Abdominal Pain Musculoskeletal: leg pain Exam Vital Signs Date Time Temp Pulse Resp B/P (MAP) Pulse Ox O2 Delivery O2 Flow Rate FiO2 12/09/18 09:00 Room Air 12/09/18 08:08 96 12/09/18 05:48 97.8 95 18 152/69 (96) Capillary Refill : Less Than 3 Seconds General Appearance: no apparent distress HEENT: normal ENT inspection Cardiovascular: regular rate, rhythm Respiratory: lungs clear Gastrointestinal: non tender Extremities: inflammation (Reduced scaly appearance of R calf.) Neurologic/Psychiatric: alert, normal mood/affect Results Microbiology 11/28/18 Blood Culture - Final, Complete No growth 11/29/18 Urine Culture - Final, Complete NO GROWTH Assessment/Plan/Dx 1. Venous stasis dermatitis of R calf. 2. Atherosclerotic arterial occlusive disease., declines evaluation. 3. Neuropathy. 4. Bilateral foot pain, may be #2 or #3. Plan: Elevation, A + D ointment. Will sign off. ROBBY REYES MD Dec 09, 2018 12:25
--- NOTE | 2018-12-09 13:09 | Physical Therapy Daily Note ---
PT Daily Note-Current Subjective Pt agreeable to PT session. Pt states her feet hurt and feel swollen on the bottoms, like walking on pillows, walking helped to decrease pain. Pt denied need for pain meds Pain Numeric Pain Scale: 7 Comment: bottom of feet, declined pain med, walking decreased pain some Appearance Pt in bed awake and alert upon arrival. At end of session, pt supine in bed per pt request, call light, phone and bedside table within reach Mental Status Patient Orientation: Person, Place, Time, Eyes Open, Situation Transfers Therapy Code Descriptions/Definitions Functional [place] Measure: 0=Not Assessed/NA 4=Minimal Assistance 1=Total Assistance 5=Supervision or Setup 2=Maximal Assistance 6=Modified [place] 3=Moderate Assistance 7=Complete [place] Therapy Quality Codes: 6 Independent with activity with or without an assistive device 5 Patient requires set up or clean up by helper. Patient completes activity by themselves 4 Supervision or touching assist (CGA). [place] provide cues , steadying assist 3 The helper provides less than half the effort to complete the activity 2 The helper provides more than half the effort to complete the activity 1 Dependent. The helper does all the effort to complete an activity 7 Patient refused to complete or attempt activity 9 The patient did not perform the activity before the current illness or injury 88 Not attempted due to Medical conditions or safety concerns Transfers (B, C, W/C) (FIM): 4 Scootin Rollin Supine to/from Sit: 5 Sit to/from Stand: 4 (CGA to SBA) good hand placement and safety during all transitions Weight Bearing Full Weight Bearing Full Weight Bearing sling right UE; Physician reports she may use her right UE for use in a platform walker. Gait Training Does the Patient Walk?: Yes Gait (FIM): 4 Distance (FIM): 3=150 ft Distance: 300 Gait Level of Assist: 4 (CGA to SBA) Gait Persons Needed: 1 Gait Assistive Device: FWW Slow steady gait, step through, fatigue Treatments bed mobility, transfers, safety, education, balance, gait, functional mobility, activity tolerance, strength Assessment Current Status: Good Progress PT Short Term Goals Short Term Goals Time Frame: Nov 29, 2018 Transfers (B,C,W/C) (FIM): 4 Gait (FIM): 4 PT Jail Goals [place] Hand Goals PT [place] Hand Goals Time Frame: Dec 14, 2018 Transfers (B,C,W/C) (FIM): 6 Sit to Lying (QC): 6 Lying-Sitting on Side/Bed(QC): 6 Sit to Stand (QC): 6 Rollin Roll Left to Right (QC): 6 Chair/Rsh-wh-Nobjp Xfer(QC): 6 Car Transfer (QC): 6 Does the Patient Walk: Yes Gait (FIM): 6 Gait distance (FIM): 3=150 ft Walk 10 feet (QC): 6 Walk 10ft-Uneven Surface(QC): 6 Walk 50ft with 2 Turns (QC): 6 Walk 150 ft (QC): 6 Gait Assistive Device: FWW Stairs (FIM): 2 # of Steps: 4 1 Step (curb) (QC): 6 4 Steps (QC): 6 12 Steps (QC): 88 Picking up an Object (QC): 88 PT Plan Treatment/Plan Treatment Plan: Continue Plan of Care Treatment Plan: Bed Mobility, Education, Functional Activity [place], Functional Strength, Group Therapy, Gait, Safety, Therapeutic Exercise, Transfers Treatment Duration: Dec 14, 2018 Frequency: At least 5 of 7 days/Wk (IRF) Estimated Hrs Per Day: 1.5 hours per day Patient and/or Family Agrees t: Yes Safety Risks/Education Patient Education: Gait Training, Transfer Techniques, Safety Issues Teaching Recipient: Patient Teaching Methods: Discussion Response to Teaching: Verbalize Understanding Time/GCodes Time In: 915 Time Out: 940 Total Billed Treatment Time: 25 Total Billed Treatment 1 visit, GT x1 unit, FA x1 unit NIA DE LA ROSA PTA Dec 09, 2018 13:09
--- NOTE | 2018-12-09 13:29 | Cardiology Progress Note ---
Cardiology SOAP Progress Note Subjective: No cardiac complaints. Objective: I&O/Vital Signs 12/09/18 12/09/18 12/09/18 05:48 08:08 09:00 Temp 97.8 Pulse 95 Resp 18 B/P (MAP) 152/69 (96) Pulse Ox 95 96 O2 Delivery Room Air Room Air Room Air 12/09/18 00:00 Intake Total 1500 ml Balance 1500 ml Weight (Pounds): 144 Weight (Ounces): 9.9 Weight (Calculated Kilograms): [id number] Constitutional: No appears stated age; AAO x 3; No apparent distress, No PERRL, No well-developed, No well-nourished, No other Respiratory: No accessory muscle use, No respiratory distress, No chest tender, No chest expansion is symmetric; chest is bilaterally symmetric; No lungs clear to percussion; lungs clear to auscultation; No crackles, No rhonchi, No rales, No stridor, No wheezing, No pleural rub, No other Cardiovascular: regular rate-rhythm; No irregularly irregular, No extra beats, No parasternal heave is noted, No JVD, No edema, No bradycardia, No tachycardia, No point of maximal impulse, No cardiac thrills are palpable; S1 and S2; No gallop/S3, No gallop/S4, No diastolic murmur, No systolic murmur, No friction rub, No click, No other Gastrointestional: No tender, No soft, No round, No distended, No pulsatile mass, No organomegaly, No guarding, No rebound, No tenderness, No hernia, No mass, No audible bowel sounds, No abnormal bowel sounds, No abdominal bruits, No spleenomegaly, No other Extremities: No normal range of motion, No non-tender, No normal inspection, No pedal edema, No calf tenderness, No normal capillary refill, No pelvis stable, No calf tenderness, No inflammation, No pedal edema, No slow capillary refill, No swelling, No other, No abrasion, No clubbing, No cyanosis, No ecchymosis, No laceration, No no lower extremity edema bilateral, No significant edema, No tenderness, No wound Neurologic/Psychiatric: no motor/sensory deficits, alert, normal mood/affect, oriented x 3 Skin: No normal color, No warm/dry, No cyanosis, No cool, No diaphoresis, No damp, No ecchymosis, No jaundice, No mottled, No pallor, No rash, No tattoos/piercings, No ulcerations, No rash on exposed areas, No ulcerations on exposed areas, No other Results/Procedures: Labs Microbiology 11/28/18 Blood Culture - Final, Complete No growth 11/29/18 Urine Culture - Final, Complete NO GROWTH A/P: Assessment/Dx: Chest pain CAD CHF HTN Plan: Chest pain, non specific etiology, right sided chest and shoulder pain, atypical in nature, secondary to clavicle fracture, reporting improvement Sinus tachycardia, unable to tolerate higher dose of beta fadi secondary to hypotension, heart rate better, tolerating meds well, continue to monitor CAD- reported history of stent placement in the past. Follows with Dr. Marrero as outpatient. CHF- 2D Echo done November 2018 revealed EF 35-40%. Maintained on Entresto, beta fadi. Labile HTN, better control at this time, continue on current medications and continue to monitor. 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 Managed by primary care team Elevated LFT's- Lipitor d/c'd. underwent Liver US last week which was WNL, improving, continue to monitor History of frequent falls at home Right clavicle fracture secondary to fall. Thank you for your consultation. Please call me if you have any questions. Wally Gresham MD, FACP, FACC, FSCAI, FHRS, CCDS Interventional Cardiology Cardiac Electrophysiology Vascular Medicine and Endovascular Interventions Shakeel GRESHAM MD Dec 09, 2018 1:29 pm
--- NOTE | 2018-12-09 13:38 | NUR ---
Pam is an 88 yo female currently inpatient on ARU following a fall which resulted in an clavicle fracture. Patient has denied pain in RUE today but has reported increased pain in feet d/t severe CAD. Dr. Hill is following patient and reported patient declined arterial work up and to monitor right leg closely d/t to area that potientally will turn into an arterial ulcer. Tylenol 325 mg BID was started today. Patient also refused bowel medications today d/t previous issue on 12/[address] Lott aware and no new orders received. No further issues noted with patient. This nurse will continue to monitor throughout shift.
[2018-12-09 16:26] VITALS: BP 170/77
[2018-12-09] MEDS: GABAPENTIN 100 MG (NEURONTIN) CAP PO SCH (17:32)
[2018-12-09] MEDS: ACETAMINOPHEN 325 MG TABLET PO PRN (17:46)
[2018-12-09 18:02] VITALS: BP 170/77
[2018-12-09] MEDS: AMITRIPTYLINE 25 MG (ELAVIL) TAB PO SCH (20:45)
[2018-12-09] MEDS: DIAZEPAM 2 MG (VALIUM) TAB PO SCH (20:45)
[2018-12-10] MEDS: ACETAMINOPHEN 325 MG TABLET PO PRN (02:07)
[2018-12-10] MEDS: CYANOCOBALAMIN 1,000 MCG (VITAMIN B-12) TABLET PO SCH (04:31)
[2018-12-10] MEDS: MULTIVIT W/MINERALS TAB (THERAGRAN M) PO SCH (04:31)
[2018-12-10] MEDS: HYDROcodone/APAP 5 MG/325 MG (LORTAB) TAB PO PRN ×2 (04:31→15:28)
[2018-12-10 05:40] VITALS: BP 153/70
[2018-12-10] MEDS: RT-ALBUTEROL SULF 2.5 MG/3 ML PRE-MIX VIAL INH SCH ×3 (07:29→19:48)
[2018-12-10] MEDS: SENNA W/DOCUSATE (SENOKOT S) TABLET PO SCH ×2 (08:20→21:01)
[2018-12-10] MEDS: ASPIRIN 81 MG CHEW (CHILDREN'S ASA) PO SCH (08:20)
[2018-12-10] MEDS: SACUBITRIL/VALSARTAN 24/26 MG (ENTRESTO) TABLET PO SCH ×2 (08:20→21:01)
[2018-12-10] MEDS: MOVE FREE JOINT HEALTH PO SCH (08:21)
[2018-12-10] MEDS: LUTEIN 40 MG PO SCH (08:21)
[2018-12-10] MEDS: A & D OINT 113 GM TUBE TOP SCH (08:22)
[2018-12-10 08:23] VITALS: BP 122/62
[2018-12-10] MEDS: ENOXAPARIN 40 MG/0.4 ML (LOVENOX) SYR SC SCH (10:32)
--- NOTE | 2018-12-10 11:05 | PM&R Progress Note ---
Subjective HPI/CC On Admission Date Seen by Provider: Dec 10, 2018 Time Seen by Provider: 10:45 Chief Complaint: Debility following fall with right clavicle fracture HPI: This is a 88 yoWF clinic pt of Dr. Dobbins and Dr. Marrero cardiology in [place] who has a PMH of known lung mass did not pursue that a few years ago who presents to inpatient rehab following an observation stay after a fall sustaining a right clavicle fracture. She lives at home alone shes been falling a lot and has become quite debilitated and the goal is to return home to independent living with ADL independence and ambulatory status independent. 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 She does recall meeting me. At this current time pt is very well controlled is aware of the additional lung mass that she has no intention of treating and Dr. Hoskins updated her on that fact and overall she's ready to get started to recover and ultimately return back to home. Subjective/Events-last exam Neuropathy still an issue likely superimposed on PVD of which she has declined testing to confirm that but it seems to be improved today Diff getting OOB from chair and bed but she is able to do it with rocking and raising the bed Elevating legs when in bed Plan for discharge on Tuesday to assisted living [facility] Using IS Bowels are not moving and took 1 Senna today Reviewed therapy notes Conferred with RN Check meds and labs Review of Systems Musculoskeletal: leg pain, foot pain Objective Exam Vital Signs Vital Signs Date Time Temp Pulse Resp B/P (MAP) Pulse Ox O2 Delivery O2 Flow Rate FiO2 12/10/18 15:05 95 Room Air 12/10/18 08:23 103 122/62 (82) 12/10/18 05:40 97.0 18 Capillary Refill : Less Than 3 Seconds General Appearance: No Apparent Distress, WD/WN, Chronically ill HEENT: PERRL/EOMI, Normal ENT Inspection Neck: Full Range of Motion, Normal Inspection, Non Tender, Supple, Limited Range of Motion (to the right) Respiratory: Chest Non Tender, Lungs Clear, Normal Breath Sounds, No Accessory Muscle Use, No Respiratory Distress Cardiovascular: No Edema, No Gallop, No JVD, No Murmur, Tachycardia Gastrointestinal: Normal Bowel Sounds, Soft Back: Normal Inspection, No CVA Tenderness, No Vertebral Tenderness Extremity: Normal Capillary Refill, Normal Inspection, Normal Range of Motion (except right arm), Non Tender, No Calf Tenderness Neurologic/Psychiatric: Alert, Oriented x3, No Motor/Sensory Deficits, Normal 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 FIM Transfers Therapy Code Descriptions/Definitions Functional Jack Measure: 0=Not Assessed/NA 4=Minimal Assistance 1=Total Assistance 5=Supervision or Setup 2=Maximal Assistance 6=Modified Jack 3=Moderate Assistance 7=Complete Jack Therapy Quality Codes: 6 Independent with activity with or without an assistive device 5 Patient requires set up or clean up by helper. Patient completes activity by themselves 4 Supervision or touching assist (CGA). [place] provide cues , steadying assist 3 The helper provides less than half the effort to complete the activity 2 The helper provides more than half the effort to complete the activity 1 Dependent. The helper does all the effort to complete an activity 7 Patient refused to complete or attempt activity 9 The patient did not perform the activity before the current illness or injury 88 Not attempted due to Medical conditions or safety concerns Transfers (B, C, W/C) (FIM): 4 Scootin Rollin Roll Left to Right (QC): 4 Supine to/from Sit: 5 Sit to/from Stand: 4 (CGA to SBA) Sit to Lying (QC): 3 Sit to Stand (QC): 4 Chair/Lxy-oj-Szumd Xfer(QC): 4 Bed to/from Chair: 4 Car Transfer (QC): 4 Gait Training Does the Patient Walk?: Yes Gait (FIM): 4 Distance (FIM): 3=150 ft Distance: 300 Walk 10 feet (QC): 5 Walk 50 ft with 2 Turns(QC): 5 Walk 150 ft (QC): 5 Walking 10ft/uneven surface-QC: 3 Gait Level of Assist: 4 (CGA to SBA) Gait Persons Needed: 1 Gait Assistive Device: FWW Wheelchair Training Does the Pt Use a Wheelchair?: No Stair Training Stair Training: Handrails/: 2 handrails Stairs (FIM): 2 #of Steps: 4 1 Step (curb) (QC): 3 (mod assist to step up) 4 Steps (QC): 88 12 Steps (QC): 88 Stairs: Pattern: Step to Level of Assist: 4 Balance Picking up an Object (QC): 88 Mental Status/Objective Comprehension: 6 Expression: 6 Social Interaction: 7 Problem Solvin Memory: 5 ADL-Treatment Feedin (increased time) Eating (QC): 6 Groomin (mod I standing a sink with walker. ) Oral Hygiene (QC): 6 Bathin (SBA for safety/balance. Used shower chair and grab bars) Bathing Location: L Arm, R Arm, L Upper Leg, R Upper Leg, L Lower Leg (including foot), R Lower Leg (including foot), Chest, Abdomen, Buttocks, Perineal Area Shower/Bathe Self (QC): 4 Upper Extremity Dressin (increased time, button up shirt) Upper Body Dressing (QC): 5 Lower Extremity Dressin (Pt was able to put on pants/underpants with SBA during standing. Pt required assistance putting on R shoe, and pulling up L sock. Pt completed 8/10 parts.) Lower Body Dressing (QC): 4 (SBA) On/Off Footwear (QC): 3 (pt required assistance pulling up L sock after pt threaded it onto foot, and required assistance putting on R shoe.) Toiletin (increased timing noted. pt able to perform 3/3 toieting tasks ) Toileting Hygiene (QC): 6 Toilet/Commode Transfer: 5 (SBA fro safety/ balance. noted use of GB ) Toilet Transfer (QC): 5 Shower: 5 (SBA, pt able to utilize grab bars and shower chair for sit to stand.) 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 but does not wish to have work-up or treatment CAD with stents in place PVD with stents in place Lives alone CHF UTI's Crackles RLL acute-improved with IS use Elevated LFT's limiting APAP and holding statin Right lower leg pre-ulcer consulting Dr Hill Neuropathy Plan: Consult pulmonology is appreciated Stop atorvastatin d/t liver enzymes Stop acetaminophen d/t liver enzymes Repeated echo and viewed results Use tramadol for pain to prevent delirium but does not appear to be working well for her so add Hydrocodone Inpatient rehab protocol Ambulation with walker for fall prevention Regain independence with ADLs with right clavicle fracture and arm in sling Use platform to help navigate ambulation due to clavicle fracture Right arm sling prn to help with the pain IS Control pain with addition of Hydrocodone and that seems to be helping her quite a bit AL at DC Arterial USG studies declined by patient but likely a component for PVD too Elevate legs when in bed (1) Fall on same level (2) Congestive heart failure (3) B12 deficiency (4) Recurrent UTI (5) Hyperlipemia (6) PVD (peripheral vascular disease) (7) CAD (coronary artery disease) (8) Coronary arteriosclerosis (9) Clavicle fracture (10) Hypertension (11) Lung mass (12) Peripheral vascular disease Reviewed assessment and plan Pain control Monitor labs closely Abx empiric for bronchial source nut UTI likely source also Lung cancer is presumed Needs AL (1) Fall on same level Status: Acute (2) Congestive heart failure Status: Acute (3) B12 deficiency (4) Recurrent UTI (5) Hyperlipemia (6) PVD (peripheral vascular disease) (7) CAD (coronary artery disease) (8) Coronary arteriosclerosis Status: Chronic (9) Clavicle fracture (10) Hypertension Status: Acute (11) Lung mass (12) Peripheral vascular disease Status: Chronic COLLEEN OVIEDO DO Dec 10, 2018 11:05
--- NOTE | 2018-12-10 13:08 | Cardiology Progress Note ---
Cardiology SOAP Progress Note Subjective: no cardiac complaints. Objective: I&O/Vital Signs 12/10/18 12/10/18 12/10/18 12/10/18 05:40 07:29 08:23 09:59 Temp 97.0 Pulse 101 103 Resp 18 B/P (MAP) 153/70 (97) 122/62 (82) Pulse Ox 95 97 O2 Delivery Room Air Room Air Room Air 12/10/18 00:00 Intake Total 780 ml Balance 780 ml Weight (Pounds): 144 Weight (Ounces): 9.9 Weight (Calculated Kilograms): [id number] Constitutional: No appears stated age; AAO x 3; No apparent distress, No PERRL, No well-developed, No well-nourished, No other Respiratory: No accessory muscle use, No respiratory distress, No chest tender, No chest expansion is symmetric; chest is bilaterally symmetric; No lungs clear to percussion; lungs clear to auscultation; No crackles, No rhonchi, No rales, No stridor, No wheezing, No pleural rub, No other Cardiovascular: regular rate-rhythm; No irregularly irregular, No extra beats, No parasternal heave is noted, No JVD, No edema, No bradycardia, No tachycardia, No point of maximal impulse, No cardiac thrills are palpable; S1 and S2; No gallop/S3, No gallop/S4, No diastolic murmur, No systolic murmur, No friction rub, No click, No other Gastrointestional: No tender, No soft, No round, No distended, No pulsatile mass, No organomegaly, No guarding, No rebound, No tenderness, No hernia, No mass, No audible bowel sounds, No abnormal bowel sounds, No abdominal bruits, No spleenomegaly, No other Extremities: No normal range of motion, No non-tender, No normal inspection, No pedal edema, No calf tenderness, No normal capillary refill, No pelvis stable, No calf tenderness, No inflammation, No pedal edema, No slow capillary refill, No swelling, No other, No abrasion, No clubbing, No cyanosis, No ecchymosis, No laceration, No no lower extremity edema bilateral, No significant edema, No tenderness, No wound Neurologic/Psychiatric: no motor/sensory deficits, alert, normal mood/affect, oriented x 3 Skin: No normal color, No warm/dry, No cyanosis, No cool, No diaphoresis, No damp, No ecchymosis, No jaundice, No mottled, No pallor, No rash, No tattoos/piercings, No ulcerations, No rash on exposed areas, No ulcerations on exposed areas, No other Results/Procedures: Labs Microbiology 11/28/18 Blood Culture - Final, Complete No growth 11/29/18 Urine Culture - Final, Complete NO GROWTH A/P: Assessment/Dx: Chest pain CAD CHF HTN Plan: Chest pain, non specific etiology, right sided chest and shoulder pain, atypical in nature, secondary to clavicle fracture, reporting improvement Sinus tachycardia, unable to tolerate higher dose of beta fadi secondary to hypotension, heart rate better, tolerating meds well, continue to monitor CAD- reported history of stent placement in the past. Follows with Dr. Marrero as outpatient. CHF- 2D Echo done November 2018 revealed EF 35-40%. Maintained on Entresto, beta fadi. Labile HTN, better control at this time, continue on current medications and continue to monitor. 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 Managed by primary care team Elevated LFT's- Lipitor d/c'd. underwent Liver US last week which was WNL, improving, continue to monitor History of frequent falls at home Right clavicle fracture secondary to fall. Thank you for your consultation. Please call me if you have any questions. Wally Gresham MD, FACP, FACC, FSCAI, FHRS, CCDS Interventional Cardiology Cardiac Electrophysiology Vascular Medicine and Endovascular Interventions Shakeel GRESHAM MD Dec 10, 2018 13:08
[2018-12-10 16:25] VITALS: BP 145/73
[2018-12-10] MEDS: GABAPENTIN 100 MG (NEURONTIN) CAP PO SCH (16:30)
[2018-12-10] MEDS: DIAZEPAM 2 MG (VALIUM) TAB PO SCH (21:01)
[2018-12-10] MEDS: AMITRIPTYLINE 25 MG (ELAVIL) TAB PO SCH (21:01)
[2018-12-11 05:02] VITALS: BP 145/67
[2018-12-11] MEDS: CYANOCOBALAMIN 1,000 MCG (VITAMIN B-12) TABLET PO SCH (06:16)
[2018-12-11] MEDS: MULTIVIT W/MINERALS TAB (THERAGRAN M) PO SCH (06:16)
[2018-12-11] MEDS: RT-ALBUTEROL SULF 2.5 MG/3 ML PRE-MIX VIAL INH SCH (07:42)
[2018-12-11] MEDS ORDERED: SENN-20 PO (08:45)
[2018-12-11] MEDS ORDERED: ONDA4TAB11 PO (08:45)
[2018-12-11] MEDS ORDERED: DIAZ2TAB2 PO (08:45)
[2018-12-11] MEDS ORDERED: METO-387 PO (08:45)
[2018-12-11] MEDS ORDERED: TRAM50TA2 PO (08:45)
[2018-12-11] MEDS ORDERED: ACHD5005 PO (08:45)
--- NOTE | 2018-12-11 08:47 | D/C HH Face to Face Order ---
D/C Face to Face Orders Reconcile Patient Problems Problems Reviewed?: Yes Instructions for Patient Via [facility] [employer] Patient Instructions/FollowUp: Dr Dobbins in 1 week Physician to follow Patient: Dr Dobbins Discharge Diet for Home: No Restrictions Patient Problems: Clavicle fracture Falls Lung masses Neuropathy Patient Data-Allergies,Ht & Wt Patient Allergies: Coded Allergies: atenolol (Verified Allergy, Unknown, 05/05/18) codeine (Verified Adverse Reaction, Mild, NAUSEA, 05/05/18) HEADACHE diltiazem (Verified Adverse Reaction, Mild, DOESN'T WANT, 05/05/18) indomethacin (Verified Adverse Reaction, Mild, DOESN'T WANT, 05/05/18) propranolol (Verified Adverse Reaction, Mild, DOESN'T WANT, 05/05/18) morphine (Verified Adverse Reaction, Unknown, 05/05/18) reports hearing things-reports she does not want to ever take. haS TOLERATED HYDROCODONE Uncoded Allergies: NITROPATCH (Adverse Reaction, Mild, DOESN'T WANT, 03/29/07) Height (Feet): 5 Height (Inches): 7.00 Weight (Pounds): 144 Weight (Ounces): 9.9 Home Health Need/Face to Face Date of Face to Face: Dec 11, 2018 Clinical Findings: Generalized weakness and fatigue, Instability, Muscle weakness, Shortness of breath, Unsteady gait I have seen Pt [id number]: Yes Discharged To: Home Diagnosis/Conditions: Clavicle fracture Falls Lung masses Neuropathy Patient is Homebound due to: Nicole fall risk due to instabilty, Muscle weak ness, Pain w/ambulation Homebound Status Due to the above stated illness, injury or surgical procedure (medical condition or diagnosis) and associated clinical findings, the patient is homebound because of his/her inability to leave home except with aid of a supportive device and/or person AND leaving the home requires a considerable and taxing effort or is medically contraindicated. Pt req the following assistanc: Walker Home Health Nursing Orders Home Health Services Order: First Line Production Supervisor-Evaluate & Treat, Physical Therapy-Evaluate & Treat Certify Stmt I certify that this patient is under my care and that I, a nurse practitioner or a physician; a staff assistant working with me, had a face to face encounter that - meets the physician face to face encounter requirements with this patient as dated. COLLEEN OVIEDO DO Dec 11, 2018 08:47
--- NOTE | 2018-12-11 08:47 | Discharge Summary ---
Diagnosis/Chief Complaint Date of Admission Nov 22, 2018 at 11:30 Date of Discharge Discharge Date: Dec 11, 2018 Discharge Diagnosis Assessment: Recent fall with history of multiple falls Acute right clavicle fracture maintained in sling Hypertension 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 but does not wish to have work-up or treatment CAD with stents in place PVD with stents in place Lives alone CHF UTI's Crackles RLL acute-improved with IS use Elevated LFT's limiting APAP and holding statin Right lower leg pre-ulcer consulting Dr Hill Neuropathy Plan: Consult pulmonology is appreciated Stop atorvastatin d/t liver enzymes Stop acetaminophen d/t liver enzymes Repeated echo and viewed results Use tramadol for pain to prevent delirium but does not appear to be working well for her so add Hydrocodone Inpatient rehab protocol Ambulation with walker for fall prevention Regain independence with ADLs with right clavicle fracture and arm in sling Use platform to help navigate ambulation due to clavicle fracture Right arm sling prn to help with the pain IS Control pain with addition of Hydrocodone and that seems to be helping her quite a bit AL at DC Arterial USG studies declined by patient but likely a component for PVD too Elevate legs when in bed (1) Fall on same level (2) Congestive heart failure (3) B12 deficiency (4) Recurrent UTI (5) Hyperlipemia (6) PVD (peripheral vascular disease) (7) CAD (coronary artery disease) (8) Coronary arteriosclerosis (9) Clavicle fracture (10) Hypertension (11) Lung mass (12) Peripheral vascular disease Reviewed assessment and plan Pain control Monitor labs closely Abx empiric for bronchial source nut UTI likely source also Lung cancer is presumed Needs AL (1) Fall on same level Status: Acute (2) Congestive heart failure Status: Acute (3) B12 deficiency (4) Recurrent UTI (5) Hyperlipemia (6) PVD (peripheral vascular disease) (7) CAD (coronary artery disease) (8) Coronary arteriosclerosis Status: Chronic (9) Clavicle fracture (10) Hypertension Status: Acute (11) Lung mass (12) Peripheral vascular disease Status: Chronic Discharge Summary Discharge Physical Examination Allergies: Coded Allergies: atenolol (Verified Allergy, Unknown, 05/05/18) codeine (Verified Adverse Reaction, Mild, NAUSEA, 05/05/18) HEADACHE diltiazem (Verified Adverse Reaction, Mild, DOESN'T WANT, 05/05/18) indomethacin (Verified Adverse Reaction, Mild, DOESN'T WANT, 05/05/18) propranolol (Verified Adverse Reaction, Mild, DOESN'T WANT, 05/05/18) morphine (Verified Adverse Reaction, Unknown, 05/05/18) reports hearing things-reports she does not want to ever take. haS TOLERATED HYDROCODONE Uncoded Allergies: NITROPATCH (Adverse Reaction, Mild, DOESN'T WANT, 03/29/07) Vitals & I&Os Vital Signs Date Time Temp Pulse Resp B/P (MAP) Pulse Ox O2 Delivery O2 Flow Rate FiO2 12/11/18 15:24 92 18 145/67 95 Room Air 12/11/18 05:02 97.1 General Appearance: Alert, Oriented X3, Cooperative Respiratory: Clear to Auscultation, Normal Air Movement Cardiovascular: Regular Rate, Normal S1, Normal S2 Neuro: Normal Speech, Strength at 5/5 X4 Ext, Normal Tone, Sensation Intact, Cranial Nerves 3-12 NL Psych/Mental Status: Mental Status NL, Mood NL Hospital Course Was the Problem List Reviewed?: Yes Hospital Course: Pt had an uneventful 20 day hospital course in inpatient rehab after she was admitted for right clavicle fracture and severely weakened state with multiple falls and severe debility. She was noted to have UTI and bronchitis managed well with Augmentin and she finished that treatment plan. Right leg wound was managed conservatively by Dr. Hill after she refused to get arterial ultrasound because likely it was a component of PVD in addition to neuropathy. Low dose of Lortab was helpful with the pain and she was alternating that with Ultram. Elevated liver enzymes during acute illness phase with the infection resulted in minimization of Tylenol products and holding statin treatment and those changes were maintained at DC to ensure liver enzymes return completely back to normal and PCP can restart those when deemed necessary. Lung nodules were still present on imaging scan and pt declines any workup for that. Overall she was able to return back to somewhat prior level of functioning with use of. walker. She reluctantly agreed to go to assisted living for additional help and assistance and supportive care and was deemed stable for DC in improved condition. Labs (last 24 hrs) Laboratory Tests 11/22/18 11:30: Lab Scanned Report Referred Lab Report 11/22/18 15:00: Urine Color YELLOW, Urine Clarity CLEAR, Urine pH 5, Urine Specific [place] 1.015L, Urine Protein 1+H, Urine Glucose (UA) NEGATIVE, Urine Ketones NEGATIVE, Urine Nitrite NEGATIVE, Urine Bilirubin NEGATIVE, Urine Urobilinogen NORMAL, Urine Leukocyte Esterase NEGATIVE, Urine RBC (Auto) 1+H, Urine RBC 0-2, Urine WBC NONE, Urine Squamous Epithelial Cells 0-2, Urine Crystals PRESENTH, Urine Amorphous Sediment RARE ELSIE URATESH, Urine Bacteria TRACE, Urine Casts PRESENT, Urine Granular Casts RARE, Urine Mucus SMALLH, Urine Culture Indicated CULTURE PENDING 11/27/18 09:05: White Blood Count 11.7H, Red Blood Count 4.09L, Hemoglobin 11.8, Hematocrit 38, Mean Corpuscular Volume 92, Mean Corpuscular Hemoglobin 29, Mean Corpuscular Hemoglobin Concent 31L, Red Cell Distribution Width 12.8, Platelet Count 433H, Mean Platelet Volume 10.2, Neutrophils (%) (Auto) 87H, Lymphocytes (%) (Auto) 2L , Monocytes (%) (Auto) 8, Eosinophils (%) (Auto) 3, Basophils (%) (Auto) 1, Neutrophils # (Auto) 10.1H, Lymphocytes # (Auto) 0.2L, Monocytes # (Auto) 1.0, Eosinophils # (Auto) 0.3, Basophils # (Auto) 0.1, Neutrophils % (Manual) 90, Lymphocytes % (Manual) 1, Monocytes % (Manual) 7, Eosinophils % (Manual) 1, Basophils % (Manual) 0, Band Neutrophils 1, Blood Morphology Comment NORMAL, Sodium Level 135, Potassium Level 4.6, Chloride Level 103, Carbon Dioxide Level 20L, Anion Gap 12, Blood Urea Nitrogen 27H, Creatinine 1.10, Estimat Glomerular Filtration Rate 47, BUN/Creatinine Ratio 25, Glucose Level 133H, Calcium Level 9.5, Corrected Calcium 10.0, Total Bilirubin 0.5, Aspartate Amino Transf (AST/SGOT) 26, Alanine Aminotransferase (ALT/SGPT) 52, Alkaline Phosphatase 134, Total Protein 7.1, Albumin 3.4 11/28/18 03:40: Troponin I < 0.028 11/28/18 10:14: White Blood Count 16.7H, Red Blood Count 3.97L, Hemoglobin 11.6, Hematocrit 37, Mean Corpuscular Volume 93, Mean Corpuscular Hemoglobin 29, Mean Corpuscular Hemoglobin Concent 31L, Red Cell Distribution Width 12.7, Platelet Count 421H, Mean Platelet Volume 10.1, Neutrophils (%) (Auto) 90H, Lymphocytes (%) (Auto) 1L , Monocytes (%) (Auto) 8, Eosinophils (%) (Auto) 0, Basophils (%) (Auto) 0, Neutrophils # (Auto) 15.1H, Lymphocytes # (Auto) 0.2L, Monocytes # (Auto) 1.3H, Eosinophils # (Auto) 0.1, Basophils # (Auto) 0.1, Neutrophils % (Manual) 86, Lymphocytes % (Manual) 1, Monocytes % (Manual) 1, Eosinophils % (Manual) 0, Basophils % (Manual) 1, Band Neutrophils 1, Blood Morphology Comment NORMAL, Sodium Level 133L, Potassium Level 4.7, Chloride Level 102, Carbon Dioxide Level 21, Anion Gap 10, Blood Urea Nitrogen 30H, Creatinine 1.08, Estimat Glomerular Filtration Rate 48, BUN/Creatinine Ratio 28, Glucose Level 113H, Lactic Acid Level 0.81, Calcium Level 9.6, Corrected Calcium 10.1, Total Bilirubin 0.7, Aspartate Amino Transf (AST/SGOT) 191H, Alanine Aminotransferase (ALT/SGPT) 288H , Alkaline Phosphatase 334H, B-Type Natriuretic Peptide 241.4H, Total Protein 6.4, Albumin 3.4 11/28/18 12:11: Prothrombin Time 14.8H, INR Comment 1.1, Ammonia 16 11/29/18 05:24: Urine Color YELLOW, Urine Clarity CLEAR, Urine pH 5, Urine Specific [place] 1.015L, Urine Protein NEGATIVE, Urine Glucose (UA) NEGATIVE, Urine Ketones NEGATIVE, Urine Nitrite POSITIVEH, Urine Bilirubin NEGATIVE, Urine Urobilinogen NORMAL, Urine Leukocyte Esterase 3+H, Urine RBC (Auto) NEGATIVE, Urine RBC RARE, Urine WBC 50-100H, Urine Squamous Epithelial Cells 0-2, Urine Crystals NONE, Urine Bacteria MODERATEH, Urine Casts NONE, Urine Mucus NEGATIVE, Urine Culture Indicated YES 11/29/18 06:42: White Blood Count 10.7, Red Blood Count 3.61L, Hemoglobin 12.1, Hematocrit 34L, Mean Corpuscular Volume 94, Mean Corpuscular Hemoglobin 34, Mean Corpuscular Hemoglobin Concent 36, Red Cell Distribution Width 12.9, Platelet Count 250, Mean Platelet Volume 10.5H, Neutrophils (%) (Auto) 81H, Lymphocytes (%) (Auto) 3L, Monocytes (%) (Auto) 13H, Eosinophils (%) (Auto) 3, Basophils (%) (Auto) 1, Neutrophils # (Auto) 8.6H, Lymphocytes # (Auto) 0.3L, Monocytes # (Auto) 1.4H, Eosinophils # (Auto) 0.4H, Basophils # (Auto) 0.1, Sodium Level 136, Potassium Level 4.8, Chloride Level 105, Carbon Dioxide Level 17L, Anion Gap 14, Blood Urea Nitrogen 34H, Creatinine 1.17, Estimat Glomerular Filtration Rate 44, BUN/Creatinine Ratio 29, Glucose Level 82, Calcium Level 9.6, Corrected Calcium 10.1, Total Bilirubin 0.6, Aspartate Amino Transf (AST/SGOT) 75H, Alanine Aminotransferase (ALT/SGPT) 191H, Alkaline Phosphatase 274H, Total Protein 6.5, Albumin 3.4 12/01/18 06:10: White Blood Count 8.7, Red Blood Count 3.53L, Hemoglobin 10.2L, Hematocrit 33L, Mean Corpuscular Volume 92, Mean Corpuscular Hemoglobin 29, Mean Corpuscular Hemoglobin Concent 31L, Red Cell Distribution Width 12.9, Platelet Count 391, Mean Platelet Volume 9.9, Neutrophils (%) (Auto) 85H, Lymphocytes (%) (Auto) 3L, Monocytes (%) (Auto) 9, Eosinophils (%) (Auto) 3, Basophils (%) (Auto) 1, Neutrophils # (Auto) 7.4, Lymphocytes # (Auto) 0.2L, Monocytes # (Auto) 0.8, Eosinophils # (Auto) 0.2, Basophils # (Auto) 0.1, Sodium Level 135, Potassium Level 5.3H, Chloride Level 106, Carbon Dioxide Level 20L, Anion Gap 9, Blood Urea Nitrogen 24H, Creatinine 0.88, Estimat Glomerular Filtration Rate > 60, BU N/Creatinine Ratio 27, Glucose Level 93, Calcium Level 9.2, Corrected Calcium 10.0, Total Bilirubin 0.6, Aspartate Amino Transf (AST/SGOT) 31, Alanine Aminotransferase (ALT/SGPT) 95H, Alkaline Phosphatase 177H, Total Protein 5.5L, Albumin 3.0L 12/04/18 05:10: White Blood Count 9.2, Red Blood Count 3.44L, Hemoglobin 9.9L, Hematocrit 32L, Mean Corpuscular Volume 93, Mean Corpuscular Hemoglobin 29, Mean Corpuscular Hemoglobin Concent 31L, Red Cell Distribution Width 13.0, Platelet Count 379, Mean Platelet Volume 9.8, Sodium Level 134L, Potassium Level 5.0, Chloride Level 104, Carbon Dioxide Level 19L, Anion Gap 11, Blood Urea Nitrogen 31H, Creatinine 1.14, Estimat Glomerular Filtration Rate 45, BUN/Creatinine Ratio 27, Glucose Level 106H, Calcium Level 8.9, Corrected Calcium 9.7, Total Bilirubin 0.3, Aspartate Amino Transf (AST/SGOT) 25, Alanine Aminotransferase (ALT/SGPT) 65H, Alkaline Phosphatase 135, Total Protein 5.6L, Albumin 3.0L, Thyroid Stimulating Hormone (TSH) 2.48 12/08/18 06:10: White Blood Count 6.0, Red Blood Count 3.45L, Hemoglobin 10.0L, Hematocrit 33L, Mean Corpuscular Volume 94, Mean Corpuscular Hemoglobin 29, Mean Corpuscular Hemoglobin Concent 31L, Red Cell Distribution Width 13.4, Platelet Count 337, Mean Platelet Volume 10.1, Neutrophils (%) (Auto) 68, Lymphocytes (%) (Auto) 10L , Monocytes (%) (Auto) 15H, Eosinophils (%) (Auto) 6, Basophils (%) (Auto) 1, Neutrophils # (Auto) 4.0, Lymphocytes # (Auto) 0.6L, Monocytes # (Auto) 0.9, Eosinophils # (Auto) 0.4H, Basophils # (Auto) 0.1, Sodium Level 139, Potassium Level 4.6, Chloride Level 107, Carbon Dioxide Level 22, Anion Gap 10, Blood Urea Nitrogen 27H, Creatinine 1.07, Estimat Glomerular Filtration Rate 48, BUN/Creatinine Ratio 25, Glucose Level 94, Calcium Level 8.5, Corrected Calcium 9.2, Total Bilirubin 0.3, Aspartate Amino Transf (AST/SGOT) 14, Alanine Aminotransferase (ALT/SGPT) 34, Alkaline Phosphatase 115, Total Protein 5.7L, Albumin 3.1L Microbiology 11/28/18 Blood Culture - Final, Complete No growth 11/29/18 Urine Culture - Final, Complete NO GROWTH Pending Labs Microbiology Date/Time Source Procedure Growth Status 11/28/18 15:25 Peripheral Lt Hand Blood Culture - Final No growth Complete 11/28/18 15:20 Peripheral Rt Hand Blood Culture - Final No growth Complete 11/28/18 15:15 Peripheral Rt Hand Blood Culture - Final No growth Complete 11/29/18 05:24 Urine Clean Catch Urine Culture - Final NO GROWTH Complete 11/22/18 15:00 Urine Straight Cath, In/Out Urine Culture - Final NO GROWTH Complete Laboratory Tests 11/22/18 11:30: Lab Scanned Report Referred Lab Report 11/22/18 15:00: Urine Color YELLOW, Urine Clarity CLEAR, Urine pH 5, Urine Specific [place] 1.015, Urine Protein 1+, Urine Glucose (UA) NEGATIVE, Urine Ketones NEGATIVE, Urine Nitrite NEGATIVE, Urine Bilirubin NEGATIVE, Urine Urobilinogen NORMAL, Urine Leukocyte Esterase NEGATIVE, Urine RBC (Auto) 1+, Urine RBC 0-2, Urine WBC NONE, Urine Squamous Epithelial Cells 0-2, Urine Crystals PRESENT, Urine Amorphous Sediment RARE ELSIE URATES, Urine Bacteria TRACE, Urine Casts PRESENT, Urine Granular Casts RARE, Urine Mucus SMALL, Urine Culture Indicated CULTURE PENDING 11/27/18 09:05: White Blood Count 11.7, Red Blood Count 4.09, Hemoglobin 11.8, Hematocrit 38, Mean Corpuscular Volume 92, Mean Corpuscular Hemoglobin 29, Mean Corpuscular Hemoglobin Concent 31, Red Cell Distribution Width 12.8, Platelet Count 433, Mean Platelet Volume 10.2, Neutrophils (%) (Auto) 87, Lymphocytes (%) (Auto) 2, Monocytes (%) (Auto) 8, Eosinophils (%) (Auto) 3, Basophils (%) (Auto) 1, Neutrophils # (Auto) 10.1, Lymphocytes # (Auto) 0.2, Monocytes # (Auto) 1.0, Eosinophils # (Auto) 0.3, Basophils # (Auto) 0.1, Neutrophils % (Manual) 90, Lymphocytes % (Manual) 1, Monocytes % (Manual) 7, Eosinophils % (Manual) 1, Basophils % (Manual) 0, Band Neutrophils 1, Blood Morphology Comment NORMAL, Sodium Level 135, Potassium Level 4.6, Chloride Level 103, Carbon Dioxide Level 20, Anion Gap 12, Blood Urea Nitrogen 27, Creatinine 1.10, Estimat Glomerular Filtration Rate 47, BUN/Creatinine Ratio 25, Glucose Level 133, Calcium Level 9.5, Corrected Calcium 10.0, Total Bilirubin 0.5, Aspartate Amino Transf (AST/SGOT) 26, Alanine Aminotransferase (ALT/SGPT) 52, Alkaline Phosphatase 134, Total Protein 7.1, Albumin 3.4 11/28/18 03:40: Troponin I < 0.028 11/28/18 10:14: White Blood Count 16.7, Red Blood Count 3.97, Hemoglobin 11.6, Hematocrit 37, Mean Corpuscular Volume 93, Mean Corpuscular Hemoglobin 29, Mean Corpuscular Hemoglobin Concent 31, Red Cell Distribution Width 12.7, Platelet Count 421, Mean Platelet Volume 10.1, Neutrophils (%) (Auto) 90, Lymphocytes (%) (Auto) 1, Monocytes (%) (Auto) 8, Eosinophils (%) (Auto) 0, Basophils (%) (Auto) 0, Neutrophils # (Auto) 15.1, Lymphocytes # (Auto) 0.2, Monocytes # (Auto) 1.3, Eosinophils # (Auto) 0.1, Basophils # (Auto) 0.1, Neutrophils % (Manual) 86, Lym phocytes % (Manual) 1, Monocytes % (Manual) 1, Eosinophils % (Manual) 0, Basophils % (Manual) 1, Band Neutrophils 1, Blood Morphology Comment NORMAL, Sodium Level 133, Potassium Level 4.7, Chloride Level 102, Carbon Dioxide Level 21, Anion Gap 10, Blood Urea Nitrogen 30, Creatinine 1.08, Estimat Glomerular Filtration Rate 48, BUN/Creatinine Ratio 28, Glucose Level 113, Lactic Acid Level 0.81, Calcium Level 9.6, Corrected Calcium 10.1, Total Bilirubin 0.7, Aspartate Amino Transf (AST/SGOT) 191, Alanine Aminotransferase (ALT/SGPT) 288, Alkaline Phosphatase 334, B-Type Natriuretic Peptide 241.4, Total Protein 6.4, Albumin 3.4 11/28/18 12:11: Prothrombin Time 14.8, INR Comment 1.1, Ammonia 16 11/29/18 05:24: Urine Color YELLOW, Urine Clarity CLEAR, Urine pH 5, Urine Specific [place] 1.015, Urine Protein NEGATIVE, Urine Glucose (UA) NEGATIVE, Urine Ketones NEGATIVE, Urine Nitrite POSITIVE, Urine Bilirubin NEGATIVE, Urine Urobilinogen NORMAL, Urine Leukocyte Esterase 3+, Urine RBC (Auto) NEGATIVE, Urine RBC RARE, Urine WBC 50-100, Urine Squamous Epithelial Cells 0-2, Urine Crystals NONE, Urine Bacteria MODERATE, Urine Casts NONE, Urine Mucus NEGATIVE, Urine Culture Indicated YES 11/29/18 06:42: White Blood Count 10.7, Red Blood Count 3.61, Hemoglobin 12.1, Hematocrit 34, Mean Corpuscular Volume 94, Mean Corpuscular Hemoglobin 34, Mean Corpuscular Hemoglobin Concent 36, Red Cell Distribution Width 12.9, Platelet Count 250, Mean Platelet Volume 10.5, Neutrophils (%) (Auto) 81, Lymphocytes (%) (Auto) 3, Monocytes (%) (Auto) 13, Eosinophils (%) (Auto) 3, Basophils (%) (Auto) 1, Neutrophils # (Auto) 8.6, Lymphocytes # (Auto) 0.3, Monocytes # (Auto) 1.4, Eosinophils # (Auto) 0.4, Basophils # (Auto) 0.1, Sodium Level 136, Potassium Level 4.8, Chloride Level 105, Carbon Dioxide Level 17, Anion Gap 14, Blood Urea Nitrogen 34, Creatinine 1.17, Estimat Glomerular Filtration Rate 44, BUN/Creatinine Ratio 29, Glucose Level 82, Calcium Level 9.6, Corrected Calcium 10.1, Total Bilirubin 0.6, Aspartate Amino Transf (AST/SGOT) 75, Alanine Aminotransferase (ALT/SGPT) 191, Alkaline Phosphatase 274, Total Protein 6.5, Albumin 3.4 12/01/18 06:10: White Blood Count 8.7, Red Blood Count 3.53, Hemoglobin 10.2, Hematocrit 33, Mean Corpuscular Volume 92, Mean Corpuscular Hemoglobin 29, Mean Corpuscular Hemoglobin Concent 31, Red Cell Distribution Width 12.9, Platelet Count 391, Mean Platelet Volume 9.9, Neutrophils (%) (Auto) 85, Lymphocytes (%) (Auto) 3, Monocytes (%) (Auto) 9, Eosinophils (%) (Auto) 3, Basophils (%) (Auto) 1, Neutrophils # (Auto) 7.4, Lymphocytes # (Auto) 0.2, Monocytes # (Auto) 0.8, Eosinophils # (Auto) 0.2, Basophils # (Auto) 0.1, Sodium Level 135, Potassium Level 5.3, Chloride Level 106, Carbon Dioxide Level 20, Anion Gap 9, Blood Urea Nitrogen 24, Creatinine 0.88, Estimat Glomerular Filtration Rate > 60, BUN/Creatinine Ratio 27, Glucose Level 93, Calcium Level 9.2, Corrected Calcium 10.0, Total Bilirubin 0.6, Aspartate Amino Transf (AST/SGOT) 31, Alanine Aminotransferase (ALT/SGPT) 95, Alkaline Phosphatase 177, Total Protein 5.5, Albumin 3.0 12/04/18 05:10: White Blood Count 9.2, Red Blood Count 3.44, Hemoglobin 9.9, Hematocrit 32, Mean Corpuscular Volume 93, Mean Corpuscular Hemoglobin 29, Mean Corpuscular Hemoglobin Concent 31, Red Cell Distribution Width 13.0, Platelet Count 379, Mean Platelet Volume 9.8, Sodium Level 134, Potassium Level 5.0, Chloride Level 104, Carbon Dioxide Level 19, Anion Gap 11, Blood Urea Nitrogen 31, Creatinine 1.14, Estimat Glomerular Filtration Rate 45, BUN/Creatinine Ratio 27, Glucose Level 106, Calcium Level 8.9, Corrected Calcium 9.7, Total Bilirubin 0.3, Aspartate Amino Transf (AST/SGOT) 25, Alanine Aminotransferase (ALT/SGPT) 65, Alkaline Phosphatase 135, Total Protein 5.6, Albumin 3.0, Thyroid Stimulating Hormone (TSH) 2.48 12/08/18 06:10: White Blood Count 6.0, Red Blood Count 3.45, Hemoglobin 10.0, Hematocrit 33, Mean Corpuscular Volume 94, Mean Corpuscular Hemoglobin 29, Mean Corpuscular Hemoglobin Concent 31, Red Cell Distribution Width 13.4, Platelet Count 337, Mean Platelet Volume 10.1, Neutrophils (%) (Auto) 68, Lymphocytes (%) (Auto) 10, Monocytes (%) (Auto) 15, Eosinophils (%) (Auto) 6, Basophils (%) (Auto) 1, Neutrophils # (Auto) 4.0, Lymphocytes # (Auto) 0.6, Monocytes # (Auto) 0.9, Eosinophils # (Auto) 0.4, Basophils # (Auto) 0.1, Sodium Level 139, Potassium Level 4.6, Chloride Level 107, Carbon Dioxide Level 22, Anion Gap 10, Blood Urea Nitrogen 27, Creatinine 1.07, Estimat Glomerular Filtration Rate 48, BUN/Creatinine Ratio 25, Glucose Level 94, Calcium Level 8.5, Corrected Calcium 9.2, Total Bilirubin 0.3, Aspartate Amino Transf (AST/SGOT) 14, Alanine Aminotransferase (ALT/SGPT) 34, Alkaline Phosphatase 115, Total Protein 5.7, Albumin 3.1 Discharge Home Medications: Active Scripts Active Ondansetron Odt (Ondansetron) 4 Mg Tab.rapdis 4 Mg PO Q6H PRN Senna-Time S Tablet (Sennosides/Docusate Sodium) 1 Each Tablet 2 Ea PO BID Diazepam 2 Mg Tablet 1 Mg PO HS Tramadol HCl 50 Mg Tablet 50 Mg PO Q6HR PRN Hydrocodone/Acetaminophen 5/325mg Tablet (Acetaminophen/Hydrocodone Bitart) 1 Tab Tab 0.5 Tab PO Q8HR PRN Metoprolol Succinate 25 Mg Tab.er.24h 25 Mg PO DAILY@2100 Reported B-12 (Cyanocobalamin (Vitamin B-12)) 1,000 Mcg Tablet 1,000 Mcg PO DAILY PRN Aspirin 81 Mg Tab.chew 81 Mg PO DAILY Entresto 24 mg-26 mg Tablet (Sacubitril/Valsartan) 1 Each Tablet 1 Tab PO BID Gabapentin 100 Mg Capsule 100 Mg PO DAILY WITH SUPPER Miralax (Polyethylene Glycol 3350) 17 Gm Powd.pack 17 Gm PO DAILY PRN Docusate Sodium 100 Mg Capsule 100 Mg PO DAILY PRN Move Free Joint Health Tablet (Glucosam/Chond/Hyalu/Cf Borate) 1 Each Tablet 1 Tab PO DAILY Multivitamins (Multivitamin) 1 Each Tablet 1 Tab PO DAILY Lutein 40 Mg Capsule 40 Mg PO DAILY Amitriptyline HCl 25 Mg Tablet 25 Mg PO HS Instructions to patient/family Please see electronic discharge instructions given to patient. Diagnosis/Problems Diagnosis/Problems (1) Fall on same level Status: Acute (2) Congestive heart failure Status: Acute (3) B12 deficiency (4) Recurrent UTI (5) Hyperlipemia (6) PVD (peripheral vascular disease) (7) CAD (coronary artery disease) (8) Coronary arteriosclerosis Status: Chronic (9) Clavicle fracture (10) Hypertension Status: Acute (11) Lung mass (12) Peripheral vascular disease Status: Chronic Clinical Quality Measures DVT/VTE Risk/Contraindication: Risk Factor Score Per Nursin RFS Level Per Nursing on Admit: 4+=Very High COLLEEN OVIEDO DO Dec 11, 2018 08:47
--- NOTE | 2018-12-11 09:20 | Cardiology Progress Note ---
Subjective Date Seen by Provider: Dec 11, 2018 Time Seen by Provider: 09:19 Subjective/Events-last exam Patient is in a chair, feeling better, going home today Review of Systems General: No Chills, No Night Sweats, No Fatigue, No Malaise, No Appetite, No Other HEENT: No Head Aches, No Visual Changes, No Eye Pain, No Ear Pain, No Dysphasia, No Sinus Congestion, No Post Nasal Drip, No Sore Throat, No Other Pulmonary: No Dyspnea, No Cough, No Pleuritic Chest Pain, No Other Cardiovascular: No: Chest Pain, Palpitations, Orthopnea, Paroxysmal Noc. Dyspnea, Edema, Lt Headedness, Other Objective-Cardiology Exam Last Set of Vital Signs Vital Signs 12/11/18 12/11/18 05:02 07:43 Temp 97.1 Pulse 92 Resp 18 B/P (MAP) 145/67 (93) Pulse Ox 95 O2 Delivery Room Air Capillary Refill : Less Than 3 Seconds I&O Intake and Output 12/11/18 00:00 Intake Total 1280 ml Balance 1280 ml Intake Oral 1280 ml # Voids 8 General: Alert, Oriented X3, Cooperative, No Acute Distress HEENT: Atraumatic, PERRLA Neck: Supple, No JVD, No Thyromegaly Lungs: Clear to Auscultation, Normal Air Movement Heart: Regular Rate, Normal S1, Normal S2, No Murmurs Abdomen: Normal Bowel Sounds, Soft, No Tenderness, No Hepatosplenomegaly, No Masses Extremities: No Clubbing, No Cyanosis, No Edema, No Tenderness/Swelling Skin: No Rashes, No Breakdown, No Significant Lesion Neuro: Normal Speech, Strength at 5/5 X4 Ext, Normal Tone, Sensation Intact Psych/Mental Status: Mental Status NL, Mood NL A/P-Cardiology Admission Diagnosis Chest pain CAD CHF HTN Assessment/Plan Chest pain, non specific etiology, right sided chest and shoulder pain, atypical in nature, secondary to clavicle fracture, reporting improvement Sinus tachycardia, unable to tolerate higher dose of beta fadi secondary to hypotension, heart rate better, tolerating current meds well, continue to monitor CAD- reported history of stent placement in the past. Follows with Dr. Marrero as outpatient. CHF- 2D Echo done November 2018 revealed EF 35-40%. Maintained on Entresto, beta fadi. Labile HTN, better control at this time, continue on current medications and continue to monitor. 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 Managed by primary care team Elevated LFT's- Lipitor d/c'd. underwent Liver US last week which was WNL, improving, continue to monitor History of frequent falls at home Right clavicle fracture secondary to fall. Clinical Quality Measures DVT/VTE Risk/Contraindication: Risk Factor Score Per Nursin RFS Level Per Nursing on Admit: 4+=Very High NICOLE DE LOS SANTOS MD Dec 11, 2018 09:20
--- NOTE | 2018-12-11 09:29 | NUR ---
SEASONER HAND met with patient to inquire about any last minute concerns regarding discharge plans to [facility] today. Patient expresses no concerns and is eager for this transition. SEASONER HAND reviewed recommendation for home health services for PT and OT, patient states she previously utilize [facility] would like to utilize this provider again. SEASONER HAND reviewed IMM and patient choice letter, patient provided signature for both. SEASONER HAND contacted [facility] at [facility] to inquire about available transportation. [facility] states they are available to provide transportation at 2 p.m. today. SEASONER HAND updated RN and patient. Please see discharge summary for further information.
--- NOTE | 2018-12-11 09:33 | Physical Therapy Daily Note ---
PT Daily Note-Current Subjective Pt. agrees to Rx, anxious to DC Pain Location: No Pain Reported Mental Status Patient Orientation: Normal For Age Transfers Therapy Code Descriptions/Definitions Functional [place] Measure: 0=Not Assessed/NA 4=Minimal Assistance 1=Total Assistance 5=Supervision or Setup 2=Maximal Assistance 6=Modified [place] 3=Moderate Assistance 7=Complete [place] Therapy Quality Codes: 6 Independent with activity with or without an assistive device 5 Patient requires set up or clean up by helper. Patient completes activity by themselves 4 Supervision or touching assist (CGA). [place] provide cues , steadying assist 3 The helper provides less than half the effort to complete the activity 2 The helper provides more than half the effort to complete the activity 1 Dependent. The helper does all the effort to complete an activity 7 Patient refused to complete or attempt activity 9 The patient did not perform the activity before the current illness or injury 88 Not attempted due to Medical conditions or safety concerns Transfers (B, C, W/C) (FIM): 6 Scootin Rollin Roll Left to Right (QC): 6 Supine to/from Sit: 6 Sit to/from Stand: 6 Sit to Lying (QC): 6 Sit to Stand (QC): 6 Chair/Rre-ba-Ybqvl Xfer(QC): 6 Bed to/from Chair: 6 Car Transfer (QC): 6 Weight Bearing Full Weight Bearing Full Weight Bearing sling right UE; Physician reports she may use her right UE for use in a platform walker. Gait Training Does the Patient Walk?: Yes Gait (FIM): 6 Distance (FIM): 3=150 ft (160x2) Walk 10 feet (QC): 6 Walk 50 ft with 2 Turns(QC): 6 Walk 150 ft (QC): 6 Walking 10ft/uneven surface-QC: 6 Gait Level of Assist: 6 Gait Persons Needed: 0 Gait Assistive Device: FWW low, kyphotic posture, no LOB, takes time to be careful ans steady Stair Training Stair Training: Handrails/: 2 handrails Stairs (FIM): 5 #of Steps: 4 1 Step (curb) (QC): 5 4 Steps (QC): 5 Stairs: Pattern: Step to Level of Assist: 5 household exception Balance Special Test Comments unsafe to trial bending over Assessment Current Status: Good Progress PT Short Term Goals Short Term Goals Time Frame: Nov 29, 2018 Transfers (B,C,W/C) (FIM): 4 Gait (FIM): 4 PT Half-Way Goals Half-Way Goals PT Half-Way Goals Time Frame: Dec 14, 2018 Transfers (B,C,W/C) (FIM): 6 Sit to Lying (QC): 6 Lying-Sitting on Side/Bed(QC): 6 Sit to Stand (QC): 6 Rollin Roll Left to Right (QC): 6 Chair/Xzt-qe-Ehqef Xfer(QC): 6 Car Transfer (QC): 6 Does the Patient Walk: Yes Gait (FIM): 6 Gait distance (FIM): 3=150 ft Walk 10 feet (QC): 6 Walk 10ft-Uneven Surface(QC): 6 Walk 50ft with 2 Turns (QC): 6 Walk 150 ft (QC): 6 Gait Assistive Device: FWW Stairs (FIM): 2 # of Steps: 4 1 Step (curb) (QC): 6 4 Steps (QC): 6 12 Steps (QC): 88 Picking up an Object (QC): 88 PT Plan Treatment/Plan Treatment Plan: Discontinue PT, goals met Treatment Plan: Bed Mobility, Education, Functional Activity Desean, Functional Strength, Group Therapy, Gait, Safety, Therapeutic Exercise, Transfers Treatment Duration: Dec 14, 2018 Frequency: At least 5 of 7 days/Wk (IRF) Estimated Hrs Per Day: 1.5 hours per day Patient and/or Family Agrees t: Yes Safety Risks/Education Patient Education: Gait Training, Transfer Techniques, Steps, Correct Positioning, Disease Process, Safety Issues Teaching Recipient: Patient Teaching Methods: Demonstration, Discussion Response to Teaching: Verbalize Understanding, Return Demonstration Time/GCodes Time In: 900 Time Out: 930 Total Billed Treatment Time: 30 Total Billed Treatment 1,FA20m,GT10m DARRYL NAM ELECTRICAL WIRER Dec 11, 2018 09:33
--- NOTE | 2018-12-11 09:36 | Occupational Ther Daily Note ---
OT Current Status-Daily Note Subjective Pt sitting in chair at start of session, denied pain this AM. Pt agreed to OT session, focusing on ADLs. Mental Status/Objective Patient Orientation: Normal For Age Therapy Code Descriptions/Definitions Functional [place] Measure: 0=Not Assessed/NA 4=Minimal Assistance 1=Total Assistance 5=Supervision or Setup 2=Maximal Assistance 6=Modified [place] 3=Moderate Assistance 7=Complete [place] ADL-Treatment Therapy Code Descriptions/Definitions Functional [place] Measure: 0=Not Assessed/NA 4=Minimal Assistance 1=Total Assistance 5=Supervision or Setup 2=Maximal Assistance 6=Modified [place] 3=Moderate Assistance 7=Complete [place] Therapy Quality Codes: 6 Independent with activity with or without an assistive device 5 Patient requires set up or clean up by helper. Patient completes activity by themselves 4 Supervision or touching assist (CGA). [place] provide cues , steadying assist 3 The helper provides less than half the effort to complete the activity 2 The helper provides more than half the effort to complete the activity 1 Dependent. The helper does all the effort to complete an activity 7 Patient refused to complete or attempt activity 9 The patient did not perform the activity before the current illness or injury 88 Not attempted due to Medical conditions or safety concerns Eating (FIM): 6 (increased time) Eating (QC): 6 Grooming (FIM): 6 (Mod I standing at sink with roller walker. Pt completed brushing teeth, washing face, brushing hair, and washing hands.) Oral Hygiene (QC): 6 Bathing (FIM): 5 (SBA standing at GB while washing buttock. ) Bathing Location: L Arm, R Arm, L Upper Leg, R Upper Leg, L Lower Leg (including foot), R Lower Leg (including foot), Chest, Abdomen, Buttocks, Perineal Area Shower/Bathe Self (QC): 4 Upper Body (FIM): 6 (increased time. Pt donned button up shirt ) Upper Body Dressing (QC): 6 Lower Body Dressing (FIM): 5 (SBA during stand to pull up pants/underwear. Pt completed / with increased time and AE for socks.) Lower Body Dressing (QC): 4 On/Off Footwear (QC): 6 (with AE) Toileting (FIM): 6 (increased time, pt completed 3/3) Toileting Hygiene (QC): 6 Transfers (B, C, W/C) (FIM): 5 (SBA for safety/balance with placement of walker for pt. ) Toilet/Commode Transfer (FIM): 5 (SBA for safety/balance) Toilet Transfer (QC): 4 Shower Transfer(FIM): 4 (CGA during transfer. Pt is able to stand using grab bars with SBA ) Other Treatment Pt completed ADLs this AM, post OT session pt sitting in chair with call light and phone in reach and needs met. Education OT Patient Education: Correct positioning, Modified ADL techniques, Progress toward Goal/Update tx plan, Purpose of tx/functional activities, Transfer techniques, Use of adapted equipment Teaching Recipient: Patient Teaching Methods: Demonstration, Discussion Response to Teaching: Verbalize Understanding, Return Demonstration OT Short Term Goals Short Term Goals Time Frame: Dec 06, 2018 Eating(FIM): 6 Grooming(FIM): 5 Bathing(FIM): 4 Bathing Location: L Arm, R Arm, L Upper Leg, R Upper Leg, L Lower Leg (including foot), R Lower Leg (including foot), Chest, Abdomen, Buttocks, Perineal Area Upper Body Dressing(FIM): 4 Lower Body Dressing(FIM): 4 Toileting(FIM): 4 Transfers (B,C,W/C) (FIM): 4 Toilet/Commode Transfer(FIM): 4 Shower Transfer(FIM): 4 Comprehension(FIM): 6 Expression(FIM): 6 Social Interaction(FIM): 7 Problem Solving(FIM): 5 Memory(FIM): 5 Additional Short Term Goals: 1-Demonstrate ADL Tasks, 2-Verbalize Understanding, 3-ImproveStrength/Desean 1=Demonstrate adherence to instructed precautions during ADL tasks. 2=Patient will verbalize/demonstrate understanding of assistive devices/modifications for ADL. 3=Patient will improve strength/tolerance for activity to enable patient to perform ADL's. OT Feed Mill Operator Goals Feed Mill Operator Goals Time Frame: Dec 20, 2018 Eating (FIM): 7 (not met) Eating (QC): 6 (met) Groomin (met) Oral Hygiene (QC): 6 (met) Bathing(FIM): 6 (not met) Bathing Location: L Arm, R Arm, L Upper Leg, R Upper Leg, L Lower Leg (including foot), R Lower Leg (including foot), Chest, Abdomen, Buttocks, Perineal Area Shower/Bathe Self (QC): 6 (not met) Upper Body Dressing(FIM): 6 (met) Upper Body Dressing (QC): 6 (met) Lower Body Dressing(FIM): 6 (not met) Lower Body Dressing (QC): 6 (not met) On/Off Footwear (QC): 6 (met) Toileting(FIM): 6 (met) Toileting Hygiene (QC): 6 (met) Transfers (B,C,W/C) (FIM): 6 (not met) Toilet/Commode Transfer(FIM): 6 (not met) Toilet/Commode Transfer (QC): 6 (not met) Shower Transfer(FIM): 6 (not met) Comprehension(FIM): 6 (met) Expression (FIM): 6 (met) Social Interaction(FIM): 7 (met) Problem Solving(FIM): 5 (met ) Memory(FIM): 5 (met) Additional Goals: 1-Demonstrate ADL Tasks, 2-Verbalize Understanding, 3- ImproveStrength/Desean 1=Demonstrate adherence to instructed precautions during ADL tasks. 2=Patient will verbalize/demonstrate understanding of assistive devices/modifications for ADL. 3=Patient will improve strength/tolerance for activity to enable patient to perform ADL's. OT Education/Plan Problem List/Assessment Assessment: Decreased UE Strength, Impaired I ADL's, Impaired Self-Care Skills, Restricted Funct UE ROM Discharge Recommendations Plan/Recommendations: Continue POC Therapy D/C Recommendations: Assisted Living Equpiment Recommendations-D/C: Rails on Tub/Shower, Qual Research Manager, Sock Aide, Dressing Stick Treatment Plan/Plan of Care Treatment,Training & Education: Yes Patient would benefit from OT for education, treatment and training to promote independence in ADL's, mobility, safety and/or upper extremity function for ADL's. Plan of Care: ADL Retraining, Caregiver Training, Functional Mobility, Group Exercise/Act as Ind, UE Funct Exercise/Act Treatment Duration: Dec 20, 2018 Frequency: At least 5 of 7 days/Wk (IRF) Estimated Hrs Per Day: 1 hour per day (60-90 minutes per day) Agreement: Yes Rehab Potential: Good Time/GCodes Start Time: 08:00 Stop Time: 09:00 Total Time Billed (hr/min): 60 Billed Treatment Time ADL 4 RENATA MELO OT Dec 11, 2018 09:36
[2018-12-11] MEDS: SENNA W/DOCUSATE (SENOKOT S) TABLET PO SCH (09:44)
[2018-12-11] MEDS: ASPIRIN 81 MG CHEW (CHILDREN'S ASA) PO SCH (09:44)
[2018-12-11] MEDS: SACUBITRIL/VALSARTAN 24/26 MG (ENTRESTO) TABLET PO SCH (09:44)
[2018-12-11] MEDS: MOVE FREE JOINT HEALTH PO SCH (09:46)
[2018-12-11] MEDS: LUTEIN 40 MG PO SCH (09:46)
[2018-12-11] MEDS: A & D OINT 113 GM TUBE TOP SCH (09:47)
[2018-12-11] MEDS: ENOXAPARIN 40 MG/0.4 ML (LOVENOX) SYR SC SCH (10:00)
--- NOTE | 2018-12-11 10:13 | Speech Therapy Daily Note ---
Speech Daily Progress Note Subjective Date Seen by Provider: Dec 11, 2018 Time Seen by Provider: 00:15 The patient is excited to be leaving and going on "a new adventure" to the assisted living facility. Objective The patient completed a series of q/a related to her needs in the LONG TERM. Communication Comprehension: 7 Expression: 7 Social Cognition Social Interaction: 7 Problem Solvin Memory: 6 Speech Short Term Goals Short Term Goals Short Term Goals Patient will demonstrate simple problem solving and memory with 80% accuracy when given minimal cues Comprehension: 6 Expression: 6 Social Interaction: 7 Problem Solvin Memory: 5 Speech Shelter Goals Shelter Goals Patient will improve cognitive-communication necessary for safety and daily living tasks with minimal assist Comprehension: 6 Expression: 6 Social Interaction: 7 Problem Solvin Memory: 5 Speech-Plan Patient/Family Goals Patient/Family Goals: The patient is discharging to the [facility] today. Treatment Plan Speech Therapy Treatment Plan: Discontinue ST, Goals Met The patient has made good progress as a result of skilled ST services. Treatment Duration: Dec 11, 2018 Frequency: 5 times per week Estimated Hrs Per Day: .5 hour per day Rehab Potential: Good Barriers to Learning: Patient continues to have some pain. Pt/Family Agrees to Plan: Yes Safety Risks/Education Teaching Recipient: Patient Teaching Methods: Discussion Response to Teaching: Verbalize Understanding Education Topics Provided: Safety upon discharge Time Speech Therapy Time In: 09:30 Speech Therapy Time Out: 09:45 Total Billed Time: 15 Billed Treatment Time 1, KAYLEN Bowden Dec 11, 2018 10:13
--- NOTE | 2018-12-11 10:16 | Therapy Team Discharge Summary ---
Therapy Discharge Summary Discharge Recommendations Date of Discharge Therapy D/C Recommendations: Assisted Living Occupational Therapy No Skilled OT Needs ID'd Speech-Language Pathology The patient was admitted to the ARU s/p fall/fractured shoulder. The patient was seen by ST due to deficits with memory and problem solving. She has met all ST goals and is discharging to the [facility] today. She is being discharged from as well. PT Drill Bit Sharpener Goals Retirement Goals PT Retirement Goals Time Frame: Dec 14, 2018 Transfers (B,C,W/C) (FIM): 6 Roll Left to Right (QC): 6 Sit to Lying (QC): 6 Lying-Sitting on Side/Bed(QC): 6 Sit to Stand (QC): 6 Chair/Dhy-fe-Qqtlb Xfer(QC): 6 Car Transfer (QC): 6 Does the Patient Walk: Yes Gait (FIM): 6 Gait distance (FIM): 3=150 ft Walk 10 feet (QC): 6 Walk 10ft-Uneven Surface(QC): 6 Walk 50ft with 2 Turns (QC): 6 Walk 150 ft (QC): 6 Gait Assistive Device: FWW Stairs (FIM): 2 # of Steps: 4 1 Step (curb) (QC): 6 4 Steps (QC): 6 12 Steps (QC): 88 Picking up an Object (QC): 88 OT Retirement Goals Retirement Goals Time Frame: Dec 20, 2018 Eating (FIM): 7 Eating (QC): 6 Oral Hygiene (QC): 6 Grooming(FIM): 6 Bathing(FIM): 6 Bathing Location: L Arm, R Arm, L Upper Leg, R Upper Leg, L Lower Leg (including foot), R Lower Leg (including foot), Chest, Abdomen, Buttocks, Perineal Area Shower/Bathe Self (QC): 6 Upper Body Dressing(FIM): 6 Upper Body Dressing (QC): 6 Lower Body Dressing(FIM): 6 Lower Body Dressing (QC): 6 On/Off Footwear (QC): 6 Toileting(FIM): 6 Toileting Hygiene (QC): 6 Transfers (B,C,W/C) (FIM): 6 Toilet/Commode Transfer(FIM): 6 Toilet/Commode Transfer (QC): 6 Shower Transfer(FIM): 6 Comprehension(FIM): 6 Expression (FIM): 6 Social Interaction(FIM): 7 Problem Solving(FIM): 5 Memory(FIM): 5 Additional Goals: 1-Demonstrate ADL Tasks, 2-Verbalize Understanding, 3- ImproveStrength/Desean 1=Demonstrate adherence to instructed precautions during ADL tasks. 2=Patient will verbalize/demonstrate understanding of assistive devices/modifications for ADL. 3=Patient will improve strength/tolerance for activity to enable patient to perform ADL's. Speech Drill Bit Sharpener Goals Retirement Goals Patient will improve cognitive-communication necessary for safety and daily living tasks with minimal assist. Met Comprehension: 6 Expression: 6 Social Interaction: 7 Problem Solvin Memory: 5 KAYLEN LAGUNA Dec 11, 2018 10:16
--- NOTE | 2018-12-11 11:03 | Progress Note - Hospitalist ---
[facility] 12/11/18 1103: Progress Note Ms. Hampton has progressed nicely Lungs sounds are clear bilaterally. She is stable for D/C today to assisted living She has constipation for the previous 2 days - encouraged po colace/senna TASHIA LOTT DO 12/11/18 2106: Supervisory-Addendum Brief Verification & Attestation Participated in pt care: history, MDM, physical Personally performed: exam, history, MDM, supervision of care Care discussed with: Medical Student Procedures: n/a Results interpretation: Verified all documentation Verification and Attestation of Medical Student E/M Service A medical student performed and documented this service in my presence. I reviewed and verified all information documented by the medical student and made modifications to such information, when appropriate. I personally performed the physical exam and medical decision making. Tashia Lott, Dec 11, 2018,21:06 [facility] Dec 11, 2018 11:03 TASHIA LOTT DO Dec 11, 2018 21:06
[2018-12-11 15:24] VITALS: BP 145/67
--- NOTE | 2018-12-11 15:36 | Therapy Team Discharge Summary ---
Therapy Discharge Summary Discharge Recommendations Date of Discharge Therapy D/C Recommendations: Assisted Living Occupational Therapy Pt seen by OT to focus on increasing independence with ADLs, functional mobility,standing tolerance, safety with functional tasks, appropriate use of AE/DME, and BUE strength/ROM. Barriers pt continues to have include decreased RUE shoulder ROM, increased timing required to complete ADLs and functional tasks secondary to decreased RUE shoulder ROM, and SBA required for sit to stand transfers. Pt currently requires SBA with bathing, lower body dressing, and transfers including toilet transfers with use of RW, pt is mod I for eating, grooming, bathing, upper body dressing, and toileting secondary to increased time required for tasks. Pt requires CGA during shower transfer, she is able to digital marketing coordinator shower using GB with SBA. OT recommends for pt to d/c to assisted living facility with additional OT services. AE recommended: grab bars, shower bench, sock aid, walker, forensic examiner, and dressing stick Decreased UE Strength, Impaired I ADL's, Impaired Self-Care Skills, Restricted Funct UE ROM PT Senior Living Goals Forest Firefighter Goals PT Forest Firefighter Goals Time Frame: Dec 14, 2018 Transfers (B,C,W/C) (FIM): 6 Roll Left to Right (QC): 6 Sit to Lying (QC): 6 Lying-Sitting on Side/Bed(QC): 6 Sit to Stand (QC): 6 Chair/Nhx-es-Msiab Xfer(QC): 6 Car Transfer (QC): 6 Does the Patient Walk: Yes Gait (FIM): 6 Gait distance (FIM): 3=150 ft Walk 10 feet (QC): 6 Walk 10ft-Uneven Surface(QC): 6 Walk 50ft with 2 Turns (QC): 6 Walk 150 ft (QC): 6 Gait Assistive Device: FWW Stairs (FIM): 2 # of Steps: 4 1 Step (curb) (QC): 6 4 Steps (QC): 6 12 Steps (QC): 88 Picking up an Object (QC): 88 OT Senior Living Goals Forest Firefighter Goals Time Frame: Dec 20, 2018 Eating (FIM): 7 (not met) Eating (QC): 6 (met) Oral Hygiene (QC): 6 (met) Grooming(FIM): 6 (met) Bathing(FIM): 6 (not met) Bathing Location: L Arm, R Arm, L Upper Leg, R Upper Leg, L Lower Leg (including foot), R Lower Leg (including foot), Chest, Abdomen, Buttocks, [place] Area Shower/Bathe Self (QC): 6 (not met) Upper Body Dressing(FIM): 6 (met) Upper Body Dressing (QC): 6 (met) Lower Body Dressing(FIM): 6 (not met) Lower Body Dressing (QC): 6 (not met) On/Off Footwear (QC): 6 (met) Toileting(FIM): 6 (met) Toileting Hygiene (QC): 6 (met) Transfers (B,C,W/C) (FIM): 6 (not met) Toilet/Commode Transfer(FIM): 6 (not met) Toilet/Commode Transfer (QC): 6 (not met) Shower Transfer(FIM): 6 (not met) Comprehension(FIM): 6 (met) Expression (FIM): 6 (met) Social Interaction(FIM): 7 (met) Problem Solving(FIM): 5 (met ) Memory(FIM): 5 (met) Additional Goals: 1-Demonstrate ADL Tasks, 2-Verbalize Understanding, 3- ImproveStrength/Desean 1=Demonstrate adherence to instructed precautions during ADL tasks. 2=Patient will verbalize/demonstrate understanding of assistive devices/modifications for ADL. 3=Patient will improve strength/tolerance for activity to enable patient to perform ADL's. Speech Forest Firefighter Goals Senior Living Goals Patient will improve cognitive-communication necessary for safety and daily living tasks with minimal assist. Met Comprehension: 6 (met) Expression: 6 (met) Social Interaction: 7 (met) Problem Solvin (met ) Memory: 5 (met) RENATA MELO OT Dec 11, 2018 15:36
--- NOTE | 2018-12-12 08:14 | Therapy Team Discharge Summary ---
Therapy Discharge Summary Discharge Recommendations Date of Discharge Dec 11, 2018 at 14:00 Therapy D/C Recommendations: Assisted Living, Physical Therapy Home Care Physical Therapy This patient was admitted to ARU post acute hospital stay due to a fall with a right clavicular fx. Prior to her fall, she was living alone and was mod indep with all mobility and able to drive. Upon evaluation, she was dependent for bed mobility, walked short distances with assist and was unable to attempt stairs due to safety concerns. Treatment has consisted of functional strengthening, balance, safety to enhance her transfers and gait. She has made excellent progress and achieved goals. She is mod indep with gait and transfers and even able to go up/down stairs. Pt to discharge to a local [facility] with recommended [facility] PT to follow. DC from this unit. Occupational Therapy Decreased UE Strength, Impaired I ADL's, Impaired Self-Care Skills, Restricted Funct UE ROM PT Rrts Goals Detention Goals PT Detention Goals Time Frame: Dec 14, 2018 Transfers (B,C,W/C) (FIM): 6 (met) Roll Left to Right (QC): 6 Sit to Lying (QC): 6 Lying-Sitting on Side/Bed(QC): 6 Sit to Stand (QC): 6 Chair/Uya-jg-Jpzmh Xfer(QC): 6 Car Transfer (QC): 6 Does the Patient Walk: Yes Gait (FIM): 6 (met) Gait distance (FIM): 3=150 ft Walk 10 feet (QC): 6 Walk 10ft-Uneven Surface(QC): 6 Walk 50ft with 2 Turns (QC): 6 Walk 150 ft (QC): 6 Gait Assistive Device: FWW Stairs (FIM): 2 (exceeded) # of Steps: 4 1 Step (curb) (QC): 6 4 Steps (QC): 6 12 Steps (QC): 88 Picking up an Object (QC): 88 OT Rrts Goals Rrts Goals Time Frame: Dec 20, 2018 Eating (FIM): 7 (not met) Eating (QC): 6 (met) Oral Hygiene (QC): 6 (met) Grooming(FIM): 6 (met) Bathing(FIM): 6 (not met) Bathing Location: L Arm, R Arm, L Upper Leg, R Upper Leg, L Lower Leg (including foot), R Lower Leg (including foot), Chest, Abdomen, Buttocks, Perineal Area Shower/Bathe Self (QC): 6 (not met) Upper Body Dressing(FIM): 6 (met) Upper Body Dressing (QC): 6 (met) Lower Body Dressing(FIM): 6 (not met) Lower Body Dressing (QC): 6 (not met) On/Off Footwear (QC): 6 (met) Toileting(FIM): 6 (met) Toileting Hygiene (QC): 6 (met) Transfers (B,C,W/C) (FIM): 6 (not met) Toilet/Commode Transfer(FIM): 6 (not met) Toilet/Commode Transfer (QC): 6 (not met) Shower Transfer(FIM): 6 (not met) Comprehension(FIM): 6 (met) Expression (FIM): 6 (met) Social Interaction(FIM): 7 (met) Problem Solving(FIM): 5 (met ) Memory(FIM): 5 (met) Additional Goals: 1-Demonstrate ADL Tasks, 2-Verbalize Understanding, 3- ImproveStrength/Desean 1=Demonstrate adherence to instructed precautions during ADL tasks. 2=Patient will verbalize/demonstrate understanding of assistive devices/modifications for ADL. 3=Patient will improve strength/tolerance for activity to enable patient to perform ADL's. Speech Detention Goals Detention Goals Patient will improve cognitive-communication necessary for safety and daily living tasks with minimal assist. Met Comprehension: 6 (met) Expression: 6 (met) Social Interaction: 7 (met) Problem Solvin (met ) Memory: 5 (met) SHAHNAZ SMITH PT Dec 12, 2018 08:14
== END 2018-12-11 14:00 | disposition home health service (06) | DRG 559 ==
PROVIDERS: ADMIT Internal Medicine; ATTEND Internal Medicine
DX: S42.001D Fracture of unspecified part of right clavicle, subsequent encounter for fracture with routine healing (principal); R29.6 Repeated falls; R91.8 Other nonspecific abnormal finding of lung field; J18.9 Pneumonia, unspecified organism; I25.10 Atherosclerotic heart disease of native coronary artery without angina pectoris; I11.0 Hypertensive heart disease with heart failure; I50.9 Heart failure, unspecified; I73.9 Peripheral vascular disease, unspecified; Z66 Do not resuscitate; E78.5 Hyperlipidemia, unspecified; K21.9 Gastro-esophageal reflux disease without esophagitis; K59.09 Other constipation; I87.2 Venous insufficiency (chronic) (peripheral); G57.93 Unspecified mononeuropathy of bilateral lower limbs; I95.2 Hypotension due to drugs; R00.0 Tachycardia, unspecified; I34.0 Nonrheumatic mitral (valve) insufficiency; E53.8 Deficiency of other specified B group vitamins; Z95.5 Presence of coronary angioplasty implant and graft; Z95.820 Peripheral vascular angioplasty status with implants and grafts; W19.XXXD Unspecified fall, subsequent encounter; Y92.009 Unspecified place in unspecified non-institutional (private) residence as the place of occurrence of the external cause
CPT/HCPCS: 36415; 71046; 76705; 80053; 81000; 82140; 83605; 83880; 84443; 84484; 85007; 85025; 85027; 85610; 87040; 87088; 93005; 93306; 94640; 94760

== ENCOUNTER → 2019-03-29 | Outpatient (CLI) | payer MEDICARE ==
[~2019-03-29] MED LIST changes: -ACET-77 PO; +ACET-78 PO; +DIAZ2TAB2 PO; -IBUP-2055 PO; +IBUP-2473 PO; -METO-370 PO; -METO-395 PO; +METO50TA7 PO; +MTP100TCR PO; +MTP25TSR PO; +ONDA4TAB11 PO; -SACU1TAB PO; +SACU1TAB2 PO; +SENN-20 PO; -TRAM50TA2 PO; +TRM50T PO
--- NOTE | 2019-03-29 16:58 | Diagnostic Imaging Report ---
INDICATION: Shortness of breath and abnormal breath sounds. EXAMINATION: PA and lateral chest obtained at 12:11 p.m. and compared to 11/28/2018. FINDINGS: Compared to the prior study, there appears to be worsening infiltrates at the lung bases on both sides. There are chronic-appearing increased interstitial markings diffusely. There is no pneumothorax or gross pleural fluid. There is calcified granuloma in the left base which is stable. There is dextroscoliotic change. The heart is borderline in size. IMPRESSION: Underlying chronic changes with worsening bibasilar infiltrates compared to 11/28/2018. Dictated by: Dictated on workstation # [id number]
== END ==
LOC: RAD 11:51
PROVIDERS: ATTEND Internal Medicine
DX: R05 Cough (principal); R06.02 Shortness of breath; R91.8 Other nonspecific abnormal finding of lung field
CPT/HCPCS: 71046

== ENCOUNTER → 2019-04-02 | Outpatient (CLI) | payer MEDICARE ==
--- NOTE | 2019-04-02 13:13 | Diagnostic Imaging Report ---
INDICATION: Pneumonia. Comparison made with prior examination of 03/29/2019. FINDINGS: The heart size is normal. Mediastinum is unremarkable. Some venous congestion. There are bibasilar infiltrates, right greater than left. Right pleural effusion. No pneumothorax. IMPRESSION: Bibasilar infiltrates, right greater than left, with a right pleural effusion. Moderate central pulmonary venous congestion. Dictated by: Dictated on workstation # [id number]
== END ==
LOC: RAD 12:34
PROVIDERS: ATTEND Physician Assistant
DX: J90 Pleural effusion, not elsewhere classified (principal); J18.9 Pneumonia, unspecified organism; R91.8 Other nonspecific abnormal finding of lung field
CPT/HCPCS: 71046

== ENCOUNTER 2019-10-09 12:58 | Observation (INO) | payer MEDICARE ==
[~2019-10-09] VITALS: Ht 170.2 cm; Wt 60.8 kg
[2019-10-09] MEDS ORDERED: LACTATED RINGERS 1,000 ML IV ONE (13:08)
[2019-10-09 13:31] LABS: BASOPHILS # (AUTO) 0.1 10^3/uL (0.0-0.1); BASOPHILS % (AUTO) 0 % (0-10); EOSINOPHILS # (AUTO) 0.3 10^3/uL (0.0-0.3); EOSINOPHILS % (AUTO) 2 % (0-10); HEMATOCRIT 44 % (35-52); HEMOGLOBIN 14.1 G/DL (11.5-16.0); LYMPHOCYTES # (AUTO) 0.4 X 10^3 (1.0-4.0); LYMPHOCYTES % (AUTO) 3 % (12-44); MEAN CORPUSCULAR HEMOGLOBIN 30 PG (25-34); MEAN CORPUSCULAR HGB CONC 32 G/DL (32-36); MEAN CORPUSCULAR VOLUME 92 FL (80-99); MEAN PLATELET VOLUME 10.9 FL (7.4-10.4); MONOCYTES # (AUTO) 0.7 X 10^3 (0.0-1.0); MONOCYTES % (AUTO) 5 % (0-12); NEUTROPHILS # (AUTO) 12.4 X 10^3 (1.8-7.8); NEUTROPHILS % (AUTO) 90 % (42-75); PLATELET COUNT 222 10^3/uL (130-400); WHITE BLOOD COUNT 13.8 10^3/uL (4.3-11.0)
[2019-10-09 13:33] LABS: BILIRUBIN,URINE NEGATIVE (NEGATIVE); CLARITY,URINE CLEAR; COLOR,URINE YELLOW; GLUCOSE, URINE (UA) NEGATIVE (NEGATIVE); KETONES,URINE NEGATIVE (NEGATIVE); LEUKOCYTE ESTERASE ,URINE NEGATIVE (NEGATIVE); NITRITE,URINE NEGATIVE (NEGATIVE); PROTEIN,URINE NEGATIVE (NEGATIVE)
--- NOTE | 2019-10-09 13:37 | ED Fall/Injury ---
General Chief Complaint: Trauma-Non Activation Stated Complaint: FALL Nursing Triage Note: FALL Source: patient, EMS History of Present Illness Date Seen by Provider: Oct 09, 2019 Time Seen by Provider: 12:57 Initial Comments PT ARRIVES VIA EMS FROM HOME, CERVICAL COLLAR IN PLACE PT HAD AN UNWITNESSED FALL IN HER DRIVEWAY AT 10:45 THIS AM PT IS ABLE TO RECALL ALL EVENTS IN DETAIL AND DENIES LOSS OF CONSCIOUSNESS PT STATES SHE HAD WALKED OUT TO GET HER LUNCH ( DELIVERED MEAL, IN A BOX) STATES SHE WAS WALKING BACK AND WAS JUST AT THE GARAGE DOOR, AND WAS PUSHING THE BOX INTO THE GARAGE AND SHE LOST HER BALANCE AND FELL BACKWARD, HITTING THE BACK OF HER HEAD ON THE DRIVEWAY. PT REMEMBERS ACTUALLY HITTING HER HEAD STATES SHE SLOWLY SCOOTED HERSELF THE LENGTH OF HER CAR, DOWN HER DRIVEWAY, IN HOPES THAT SOMEONE WOULD SEE HER, SHE WAS UNABLE TO GET UP PT LAID THERE APPROXIMATELY 2 HOURS ( TEMP IS > 90 DEGREES OUTSIDE) BEFORE A NEIGHBOR FOUND HERE PT ONLY COMPLAINS OF PAIN TO BACK OF HER HEAD--EMS REPORT ABRASION TO BACK OF HEAD HAS CHRONIC BACK PAIN AND IS NO DIFFERENT THAN NORMAL DENIES NECK PAIN HAS CHRONIC RIGHT SHOULDER PAIN FROM OLD INJURY, AND DENIES ANY INJURY TO EITHER SHOULDER OR INCREASE IN PAIN TO HER RIGHT SHOULDER HAS CHRONIC BILATERAL HIP AND KNEE PAIN AND DENIES INCREASE IN PAIN FROM NORMAL NO PARESTHESIAS OR MOTOR DEFICITS NO VISION CHANGES NO DIZZINESS NO CHEST PAIN OR SHORTNESS OF BREATH NO NAUSEA/VOMITING LAST 2017 NO FEVER OR RECENT ILLNESS OR EXPOSURE TO COVID-19 PCP: DR. PHILIP Allergies and Home Medications Allergies Coded Allergies: atenolol (Verified Allergy, Unknown, 05/05/18) codeine (Verified Adverse Reaction, Mild, NAUSEA, 05/05/18) HEADACHE diltiazem (Verified Adverse Reaction, Mild, DOESN'T WANT, 05/05/18) indomethacin (Verified Adverse Reaction, Mild, DOESN'T WANT, 05/05/18) propranolol (Verified Adverse Reaction, Mild, DOESN'T WANT, 05/05/18) morphine (Verified Adverse Reaction, Unknown, 05/05/18) reports hearing things-reports she does not want to ever take. haS TOLERATED HYDROCODONE Uncoded Allergies: NITROPATCH (Adverse Reaction, Mild, DOESN'T WANT, 03/29/07) Home Medications Amitriptyline HCl 25 Mg Tablet, 25 MG PO HS, (Reported) Aspirin 81 Mg Tab.chew, 81 MG PO DAILY, (Reported) Cyanocobalamin (Vitamin B-12) 1,000 Mcg Tablet, 1,000 MCG PO DAILY PRN, (Reported) Diazepam 2 Mg Tablet, 1 MG PO HS Prescribed by: COLLEEN OVIEDO on 12/11/18844 Docusate Sodium 100 Mg Capsule, 100 MG PO DAILY PRN for CONSTIPATION-1ST LINE, (Reported) Gabapentin 100 Mg Capsule, 100 MG PO DAILY WITH SUPPER, (Reported) Glucosam/Chond/Hyalu/Cf Borate 1 Each Tablet, 1 TAB PO DAILY, (Reported) Hydrocodone Bit/Acetaminophen 1 Tab Tab, 0.5 TAB PO Q8HR PRN for PAIN-MODERATE Prescribed by: COLLEEN OVIEDO on 12/11/18844 Lutein 40 Mg Capsule, 40 MG PO DAILY, (Reported) Metoprolol Succinate 25 Mg Tab.er.24h, 25 MG PO DAILY@2100 Prescribed by: COLLEEN OVIEDO on 12/11/18844 Multivitamin 1 Each Tablet, 1 TAB PO DAILY, (Reported) Ondansetron 4 Mg Tab.rapdis, 4 MG PO Q6H PRN for NAUSEA/VOMITING Prescribed by: COLLEEN OVIEDO on 12/11/18844 Polyethylene Glycol 3350 17 Gm Powd.pack, 17 GM PO DAILY PRN for CONSTIPATION- 2ND LINE, (Reported) Sacubitril/Valsartan 1 Each Tablet, 1 TAB PO BID, (Reported) Sennosides/Docusate Sodium 1 Each Tablet, 2 EA PO BID Prescribed by: COLLEEN OVIEDO on 12/11/18844 Tramadol HCl 50 Mg Tablet, 50 MG PO Q6HR PRN for PAIN-MODERATE Prescribed by: COLLEEN OVIEDO on 12/11/18844 Patient Home Medication List Home Medication List Reviewed: Yes Review of Systems Review of Systems Constitutional: no symptoms reported Eyes: No Symptoms Reported Ears, Nose, Mouth, Throat: no symptoms reported Respiratory: no symptoms reported Cardiovascular: no symptoms reported Gastrointestinal: no symptoms reported Musculoskeletal: see HPI Skin: see HPI Psychiatric/Neurological: See HPI, Headache; Denies Numbness, Denies Paresthesia, Denies Seizure, Denies Tingling, Denies Weakness Past Ibdeens-Ygvtnm-Ytoorm Hx Past Med/Social Hx: Reviewed and Corrections made Patient Social History Alcohol Use: Denies Use Recreational Drug Use: No Smoking Status: Never a Smoker 2nd Hand Smoke Exposure: No Recent Hopitalizations: No Immunizations Up To Date Tetanus Booster (TDap): Unknown PED Vaccines UTD: No Date of Pneumonia Vaccine: Nov 23, 2013 Date of Influenza Vaccine: Jan 23, 2018 Seasonal Allergies Seasonal Allergies: No Past Medical History Surgeries: Yes (AMAURY, APPY, T&A, CATARACTS, STENTS- LEGS & HEART) Adenoidectomy, Appendectomy, Cardiac, Coronary Stent, Gallbladder, Orthopedic, Tonsillectomy, Vascular Surgery Respiratory: Yes Pneumonia Currently Using CPAP: No Currently Using BIPAP: No Cardiac: Yes (HEART STENT X1 IN 2013, STENTS X2 IN LEGS) Coronary Artery Disease, High Cholesterol, Hypertension, Peripheral Vascular Neurological: No Reproductive Disorders: No Female Reproductive Disorders: Denies Sexually Transmitted Disease: No HIV/AIDS: No Genitourinary: Yes UTI-Chronic Gastrointestinal: Yes Gastroesophageal Reflux, Chronic Constipation, Diverticulosis, Gall Bladder Disease Musculoskeletal: Yes (CHRONIC RIGHT SHOULDER, BILATERAL HIP AND BILATERAL KNEE PAIN) Arthritis, Chronic Back Pain, Fractures Endocrine: No HEENT: Yes Cataract Loss of Vision: Bilateral Hearing Impairment: Hard of Hearing Cancer: No Psychosocial: No Integumentary: Yes (Shingles) Blood Disorders: No Family Medical History Arthritis 19 MOTHER, Onset:Unknown Diabetes mellitus 19 FATHER, Onset:Unknown Myocardial infarction 19 FATHER, Onset:Unknown 19 MOTHER, Onset:Unknown No Pertinent Family Hx Physical Exam Vital Signs Vital Signs - First Documented 10/09/19 12:59 Temp 36.7 Pulse 108 Resp 20 B/P (MAP) 124/86 (99) Pulse Ox 97 O2 Delivery Room Air Capillary Refill : Height, Weight, BMI Height: 5'7.00" Weight: 144lbs. 9.9oz. [id number]; 21.5 BMI Method:Stated General Appearance: WD/WN, no apparent distress, thin HEENT: PERRL/EOMI, TMs normal, pharynx normal, other (ORAL MUCOSA DRY) Neck: non-tender, other (IN CERVICAL COLLAR) Cardiovascular: normal peripheral pulses, regular rate, rhythm, no JVD, no murmur Respiratory: chest non-tender, normal breath sounds, no respiratory distress, no accessory muscle use Gastrointestinal: non tender, soft Back: no CVA tenderness, no vertebral tenderness Extremities: no pedal edema, no calf tenderness, normal capillary refill, other (TENDERNESS TO RIGHT SHOULDER, BILATERAL HIPS AND BILATERAL KNEES--PT STATES IS NORMAL AND NOT ANY DIFFERENT THAN USUAL) Neurologic/Psychiatric: 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 as 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, no motor/sensory deficits, alert, normal mood/affect, oriented x 3 Skin: normal color, warm/dry, other (LARGE HEMATOMA WITH SMALL ABRASION TO BACK OF HEAD; MINOR ABRASION TO UPPER BACK) Denzel Coma Score Best Eye Response: (4) Open Spontaneously Best Verbal Response: (5) Oriented Best Motor Response: (6) Obeys Commands Norman Total: 15 Procedures/Interventions Suture Size: 4-0 Progress/Results/Core Measures Results/Orders Lab Results Laboratory Tests Test 10/09/19 13:08 Range/Units White Blood Count 13.8 H 4.3-11.0 10^3/uL Red Blood Count 4.78 4.35-5.85 10^6/uL Hemoglobin 14.1 11.5-16.0 G/DL Hematocrit 44 35-52 % Mean Corpuscular Volume 92 80-99 FL Mean Corpuscular Hemoglobin 30 25-34 PG Mean Corpuscular Hemoglobin Concent 32 32-36 G/DL Red Cell Distribution Width 13.0 10.0-14.5 % Platelet Count 222 130-400 10^3/uL Mean Platelet Volume 10.9 H 7.4-10.4 FL Neutrophils (%) (Auto) 90 H 42-75 % Lymphocytes (%) (Auto) 3 L 12-44 % Monocytes (%) (Auto) 5 0-12 % Eosinophils (%) (Auto) 2 0-10 % Basophils (%) (Auto) 0 0-10 % Neutrophils # (Auto) 12.4 H 1.8-7.8 X 10^3 Lymphocytes # (Auto) 0.4 L 1.0-4.0 X 10^3 Monocytes # (Auto) 0.7 0.0-1.0 X 10^3 Eosinophils # (Auto) 0.3 0.0-0.3 10^3/uL Basophils # (Auto) 0.1 0.0-0.1 10^3/uL Neutrophils % (Manual) 91 % Lymphocytes % (Manual) 1 % Monocytes % (Manual) 6 % Eosinophils % (Manual) 2 % Basophils % (Manual) 0 % Band Neutrophils 0 % Blood Morphology Comment NORMAL Prothrombin Time 12.6 12.2-14.7 SEC INR Comment 0.9 0.8-1.4 Activated Partial Thromboplast Time 27 24-35 SEC Urine Color YELLOW Urine Clarity CLEAR Urine pH 7.0 5-9 Urine Specific Ralston 1.020 1.016-1.022 Urine Protein NEGATIVE NEGATIVE Urine Glucose (UA) NEGATIVE NEGATIVE Urine Ketones NEGATIVE NEGATIVE Urine Nitrite NEGATIVE NEGATIVE Urine Bilirubin NEGATIVE NEGATIVE Urine Urobilinogen 0.2 < = 1.0 MG/DL Urine Leukocyte Esterase NEGATIVE NEGATIVE Urine RBC (Auto) 2+ H NEGATIVE Urine RBC 0-2 /HPF Urine WBC NONE /HPF Urine Squamous Epithelial Cells RARE /HPF Urine Crystals NONE /LPF Urine Bacteria NEGATIVE /HPF Urine Casts NONE /LPF Urine Mucus NEGATIVE /LPF Urine Culture Indicated NO Sodium Level 139 135-145 MMOL/L Potassium Level 3.7 3.6-5.0 MMOL/L Chloride Level 104 98-107 MMOL/L Carbon Dioxide Level 22 21-32 MMOL/L Anion Gap 13 5-14 MMOL/L Blood Urea Nitrogen 21 H 7-18 MG/DL Creatinine 0.97 0.60-1.30 MG/DL Estimat Glomerular Filtration Rate 54 BUN/Creatinine Ratio 22 Glucose Level 107 H 70-105 MG/DL Calcium Level 9.4 8.5-10.1 MG/DL Corrected Calcium 9.4 8.5-10.1 MG/DL Total Bilirubin 0.7 0.1-1.0 MG/DL Aspartate Amino Transf (AST/SGOT) 13 5-34 U/L Alanine Aminotransferase (ALT/SGPT) 16 0-55 U/L Alkaline Phosphatase 96 40-136 U/L Total Protein 6.8 6.4-8.2 GM/DL Albumin 4.0 3.2-4.5 GM/DL My Orders Orders - JAJA RAMIREZ DO Ed Iv/Invasive Line Start (10/09/19 13:06) Monitor-Rhythm Ecg Trace Only (10/09/19 13:06) Ct Head/Cervical Spine Wo (10/09/19 13:06) Ct Thoracic/Lumbar Spine Wo (10/09/19 13:06) Chest 1 View, Ap/Pa Only (10/09/19 13:06) Pelvis (10/09/19 13:06) Cbc With Automated Diff (10/09/19 13:06) Comprehensive Metabolic Panel (10/09/19 13:06) Protime With Inr (10/09/19 13:06) Partial Thromboplastin Time (10/09/19 13:06) Ua Culture If Indicated (10/09/19 13:06) Ed Iv/Invasive Line Start (10/09/19 13:06) Ed Iv/Invasive Line Start (10/09/19 13:08) Lactated Ringers (Lr 1000 Ml Iv Solution (10/09/19 13:08) Manual Differential (10/09/19 13:08) Ed Iv/Invasive Line Start (10/09/19 14:24) Ns Iv 1000 Ml (Sodium Chloride 0.9%) (10/09/19 14:24) Iohexol Injection (Omnipaque 350 Mg/Ml 1 (10/09/19 14:30) Received Contrast (Hold Metformin- Contr (10/09/19 14:30) Sodium Chloride Flush (Catheter Flush Sy (10/09/19 14:30) Ns (Ivpb) (Sodium Chloride 0.9% Ivpb Bag (10/09/19 14:30) Wound Dressing-Ed (10/09/19 14:36) Acetaminophen Tablet (Tylenol Tablet) (10/09/19 15:00) Medications Given in ED Current Medications Medications Dose Ordered Sig/Larisa Route Start Time Stop Time Status Last Admin Dose Admin Acetaminophen 1,000 mg ONCE ONCE PO 10/09/19 15:00 10/09/19 15:01 DC 10/09/19 15:29 1,000 MG Lactated Ringer's 1,000 ml @ 0 mls/hr Q0M ONCE IV 10/09/19 13:08 10/09/19 13:09 DC 10/09/19 13:28 0 MLS/HR Vital Signs/I&O 10/09/19 12:59 Temp 36.7 Pulse 108 Resp 20 B/P (MAP) 124/86 (99) Pulse Ox 97 O2 Delivery Room Air Progress Progress Note : Progress Note PT LIVES ALONE, NO FAMILY OR NEIGHBORS TO STAY WITH HER. PT DOES NOT FEEL COMFORTABLE GOING HOME AT THIS TIME. PT WITH GENERALIZED WEAKNESS, REQUIRES FULL ASSIST WITH TRANSFER FROM ER CART TO BEDSIDE COMMODE PT DECLINES CT OF CHEST FOR FURTHER EVALUATION OF ABNORMAL FINDINGS ON CXR AND CT OF SPINE--PT STATES SHE HAS HAD "TUMORS" IN BOTH OF HER LUNGS FOR A LONG TIME, AND IS NOT HAVING ANY CHEST-RELATED COMPLAINTS. Diagnostic Imaging Comments CT HEAD/CERVICAL SPINE--SCALP HEMATOMA, DEGENERATIVE CHANGES, NO ACUTE INTRACRANIAL PROCESS--PER RADIOLOGIST REPORT AT 1420 CT THORACIC/LUMBAR SPINE--PER RADIOLOGIST REPORT AT 1420 IMPRESSION: 1. Thoracolumbar spondylosis and scoliosis. No acute bony abnormality is detected. 2. Bilateral lower lobe areas of consolidation or mass. Further evaluation with CT chest would be useful. No other significant abnormality is seen. CXR--PER RADIOLOGIST REPORT AT 1420 IMPRESSION: Rounded mass-like density in the left base. A dedicated CT chest would be useful for further evaluation. There is also some probable airspace consolidation in the right base. PELVIS XRAY--PER RADIOLOGIST REPORT AT 1420 IMPRESSION: 1. No acute abnormalities. 2. 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 Reviewed: Reviewed by Me Departure Communication (Admissions) 1602--SPOKE WITH DR. OVIEDO, HOSPITALIST, ACCEPTS PT FOR ADMIT. 1606--SPOKE WITH DR. STEVE, TRAUMA SURGEON GAMING [employer]AGE WORKER, FOR CONSULT, DUE TO FALL Impression Primary Impression: Status post fall Additional Impressions: Head injury, acute, without loss of consciousness NECK AND BACK STRAIN Scalp abrasion Generalized weakness Scalp hematoma Disposition: ADMITTED INPATIENT Condition: Stable Admissions Decision to Admit Reason: Admit from ER (General) Decision to Admit/Date: Oct 09, 2019 Time/Decision to Admit Time: 16:00 Departure-Patient Inst. Referrals: KAVITA PHILIP MD (PCP/Family) Primary Care Physician Add. Discharge Instructions: All discharge instructions reviewed with patient and/or family. Voiced understanding. AJJA RAMIREZ DO Oct 09, 2019 13:37
[2019-10-09 13:44] LABS: INR 0.9 (0.8-1.4); PROTHROMBIN TIME PATIENT 12.6 SEC (12.2-14.7)
[2019-10-09 13:53] LABS: BILIRUBIN,TOTAL 0.7 MG/DL (0.1-1.0); CALCIUM 9.4 MG/DL (8.5-10.1); CREATININE SERUM 0.97 MG/DL (0.60-1.30); POTASSIUM 3.7 MMOL/L (3.6-5.0); TOTAL PROTEIN 6.8 GM/DL (6.4-8.2)
[2019-10-09 14:04] LABS: BACTERIA,URINE NEGATIVE /HPF; RBC,URINE 0-2 /HPF; SQUAMOUS EPITHELIAL CELL,UR RARE /HPF
--- NOTE | 2019-10-09 14:07 | Diagnostic Imaging Report ---
INDICATION: Fall. TIME OF EXAM: 1:52 PM. COMPARISON: 04/02/2019. FINDINGS: The heart size is normal. There is a rounded mass-like density in the left lung base, more prominent than on the prior exam. There is also an area of parenchymal consolidation in the right base near the costophrenic angle. A calcified granuloma in the left base is seen. The mid and upper lung rodriguez are clear. No effusion is seen. There is no pneumothorax. IMPRESSION: Rounded mass-like density in the left base. A dedicated CT chest would be useful for further evaluation. There is also some probable airspace consolidation in the right base. Dictated by: Dictated on workstation # [id number]
--- NOTE | 2019-10-09 14:13 | Diagnostic Imaging Report ---
PROCEDURE: CT head and CT cervical spine without contrast. TECHNIQUE: Multiple contiguous axial images were obtained through the brain and cervical spine without the use of intravenous contrast. Sagittal and coronal reformations through the cervical spine were then performed. Auto Exposure Controls were utilized during the CT exam to meet ALARA standards for radiation dose reduction. INDICATION: Found down. COMPARISON: Correlation is made with prior CT from 11/21/2018. FINDINGS: CT head: There is a large scalp hematoma in the midline occipital region. Ventricular size and sulcal pattern are stable. There is moderate periventricular hypodensity noted consistent with senescent change. There is no midline shift or hemorrhage identified. Cisterns are patent. Visualized paranasal sinuses are clear. No calvarial fracture is seen. IMPRESSION: 1. Large occipital scalp hematoma. 2. Senescent changes intracranially. No acute intracranial process is detected. CT cervical spine: There is minimal anterolisthesis of C4 on C5 and C6 on C7. Multilevel degenerative disc disease is seen with variable disc spaces narrowing and marginal spurring. There is multilevel facet arthropathy. No fracture seen. Prevertebral tissues are within normal limits. Odontoid is intact. IMPRESSION: Cervical spondylosis and listhesis. No acute bony abnormality is detected. Dictated by: Dictated on workstation # [id number]
--- NOTE | 2019-10-09 14:16 | Diagnostic Imaging Report ---
INDICATION: Fall. Pelvic pain. EXAMINATION: AP pelvis. FINDINGS: The SI joints and pubic symphysis are in good alignment. The femoral heads show good articulation with the acetabula. There are no acute fractures. There is end-stage arthritic disease noted of the right hip with loss of joint space with sclerosis and subcortical cystic changes. There is also considerable hypertrophic change along the femoral head laterally. IMPRESSION: 1. No acute abnormalities. 2. 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 Dictated by: Dictated on workstation # [id number]
--- NOTE | 2019-10-09 14:18 | Diagnostic Imaging Report ---
PROCEDURE: CT thoracic and lumbar spine without contrast. TECHNIQUE: Multiple contiguous axial images were obtained through the thoracic and lumbar spine without the use of intravenous contrast. Sagittal and coronal reformations were then performed. All CT scans use one or more of the following dose optimizing techniques: automated exposure control, MA and/or KvP adjustment based on a patient size and exam type, or iterative reconstruction. INDICATION: Found down. There is some hyperkyphotic curvature to the thoracic spine. Lumbar lordosis is normal. There is some left convexity lumbar scoliotic curvature. Vertebral body heights are maintained. No acute compression fracture seen. There is multilevel degenerative disc disease with disc space narrowing and marginal spurring throughout the thoracic and lumbar spine. There does appear to be a small amount of pleural fluid or pleural thickening on the right. There is a masslike density in the left lower lobe measuring 4.8 cm. There also appears to be some consolidation in the right base. These could be further assessed with CT chest. Aorta is heavily calcified but non-aneurysmal. IMPRESSION: 1. Thoracolumbar spondylosis and scoliosis. No acute bony abnormality is detected. 2. Bilateral lower lobe areas of consolidation or mass. Further evaluation with CT chest would be useful. No other significant abnormality is seen. Dictated by: Dictated on workstation # [id number]
[2019-10-09 14:22] LABS: BAND NEUTROPHILS 0 %; BASOPHILS % (MANUAL) 0 %; EOSINOPHILS % (MANUAL) 2 %; LYMPHOCYTES % (MANUAL) 1 %; MONOCYTES % (MANUAL) 6 %; NEUTROPHILS % (MANUAL) 91 %; RBC MORPH NORMAL
[2019-10-09] MEDS ORDERED: NS IV 1000 ML 1,000 ML IV SCH (14:24)
[2019-10-09] MEDS ORDERED: CATHETER FLUSH 10 ML SYR IV PRN (14:30)
[2019-10-09] MEDS ORDERED: NS 100 ML (IVPB) BAG IV ONE (14:30)
[2019-10-09] MEDS ORDERED: HOLD METFORMIN - RECEIVED CONTRAST 20 ML VIAL IV SCH (14:30)
[2019-10-09] MEDS ORDERED: IOHEXOL 350 MG/ML 100 ML (OMNIPAQUE 350) VIAL IV ONE (14:30)
[2019-10-09] MEDS ORDERED: ACETAMINOPHEN 500 MG TAB (TYLENOL) PO ONE (15:00)
--- OUTSIDE RECORDS SUMMARY | 2019-10-09 15:02 | XMS REPORT | Continuity of Care Document ---
Author Organization Unknown Address Unknown Phone Unavailable Allergies Active Description Code Type Severity Reaction Onset Reported/Identified Relationship to Patient Clinical Status Yes atenolol [id number] Drug Allergy Mild DOSEN'T WANT 03/29/2007 Yes NITROPATCH NITROPATCH Mild DOESN'T WANT 03/29/2007 Yes codeine [id number] Drug Allergy Mild NAUSEA, HEADACH 04/05/2007 Yes codeine [id number] Drug Allergy Unknown NAUSEA 10/08/2016 Yes codeine [id number] Drug Allergy Mild NAUSEA 05/05/2018 Yes diltiazem [id number] Drug Allergy Mild DOESN'T WANT 05/05/2018 Yes indomethacin [id number] Drug Allergy Mild DOESN'T WANT 05/05/2018 Yes propranolol [id number] Drug Aller gy Mild DOESN'T WANT 05/05/2018 Yes atenolol [id number] Drug Allergy Unknown N/A 05/05/2018 Yes morphine [id number] Drug Allergy Unknown N/A 05/05/2018 Medications There is no data. Problems Date Dx Coded Attending Type Code Diagnosis Diagnosed By 03/24/1543 KAVITA PHILIP MD Ot M54.2 CERVICALGIA 03/24/1543 KAVITA PHILIP MD Ot M54.5 LOW BACK PAIN 03/24/1556 KAVITA PHILIP MD Ot G62.9 POLYNEUROPATHY, UNSPECIFIED 03/24/1556 KAVITA PHILIP MD Ot M79.6 01 PAIN IN RIGHT ARM 03/24/1556 KAVITA PHILIP MD Ot R26.8 9 OTHER ABNORMALITIES OF GAIT AND MOBILITY 03/24/1626 KAVITA PHILIP MD Ot R32 UNSPECIFIED [...] HEMORR 09/07/2013 ANGELA DPM, LIAM Q Ot 709. 2 SCAR FIBROSIS OF SKIN 08/17/2014 JAJA RAMIREZ DO Ot 414.00 CORON ATHEROSCLER NOS TYPE VESSEL, NATIV 08/17/2014 JAJA RAMIREZ DO Ot 793.19 OTHER NONSPECIFIC ABNORMAL FINDING OF TRICIA 08/17/2014 JAJA RAMIREZ DO Ot 805.02 FX C2 VERTEBRA-CLOSED 08/17/2014 JAMES JAJA SANCHES Ot 845.00 SPRAIN OF ANKLE NOS 08/17/2014 JAJA RAMIREZ DO Ot 920 CONTUSION FACE/SCALP/NCK 08/17/2014 JAMES JAJA SANCHES Ot 923.00 CONTUSION SHOULDER REG 08/17/2014 JAMES JAJA SANCHES Ot 924.01 CONTUSION OF HIP 08/17/2014 JAJA RAMIREZ DO Ot 959.09 INJURY OF FACE AND NECK 08/17/2014 JAJA RAMIREZ DO Ot E000.8 OTHER EXTERNAL CAUSE STATUS 08/17/2014 JAJA RAMIREZ DO Ot E013.0 ACTIVITIES INVOLVING PERSONAL BATHING AN 08/17/2014 JAJA RAMIREZ DO Ot E849.0 ACCIDENT IN HOME 08/17/2014 JAJA RAMIREZ DO Ot E888.1 FALL STRIKING OBJECT NEC 08/17/2014 JAJA RAMIREZ DO Ot V58.66 LONG-TERM (CURRENT) USE OF ASPIRIN 08/17/2014 JAJA RAMIREZ DO Ot V58.69 OTH MED,LT,CURRENT USE 08/23/2014 TREVOR VILLANUEVA, SHANTANU Juan Ot 272.4 08/23/2014 TREVOR VILLANUEVA, SHANTANU Juan Ot 401.9 08/23/2014 TREVOR VILLANUEVA, SHANTANU E Ot 414.0 1 08/23/2014 TREVOR VILLANUEVA, SHANTANU E Ot 924.1 0 08/23/2014 TREVOR VILLANUEVA, SHANTANU E Ot E013. 0 08/23/2014 TREVOR VILLANUEVA, SHANTANU E Ot E849. 0 08/23/2014 TREVOR VILLANUEVA, SHANTANU E Ot E888. 1 08/23/2014 TREVOR VILLANUEVA, SHANTANU E Ot V15.8 8 08/23/2014 TREVOR VILLANUEVA, SHANTANU E Ot V45.8 2 08/23/2014 TREVOR VILLANUEVA, SHANTANU E Ot V54.1 7 08/23/2014 TREVOR VILLANUEVA, SHANTANU E Ot V57.8 9 08/23/2014 TREVOR VILLANUEVA, SHANTANU E Ot V58.6 3 08/23/2014 TREVOR VILLANUEVA, SHANTANU E Ot V58.6 6 08/23/2014 TREVOR VILLANUEVA, SHANTANU E Ot 272.4 08/23/2014 TREVOR VILLANUEVA, SHANTANU E Ot 401.9 08/23/2014 TREVOR VILLANUEVA, SHANTANU E Ot 414.0 1 08/23/2014 TREVOR VILLANUEVA, SHANTANU E Ot 924.1 0 08/23/2014 TREVOR VILLANUEVA, SHANTANU E Ot E013. 0 08/23/2014 TREVOR VILLANUEVA, SHANTANU E Ot E849. 0 08/23/2014 TREVOR VILLANUEVA, SHANTANU E Ot E888. 1 08/23/2014 TREVOR VILLANUEVA, SHANTANU E Ot V15.8 8 08/23/2014 TREVOR VILLANUEVA SHANTANU E Ot V45.8 2 08/23/2014 TREVOR VILLANUEVA, SHANTANU E Ot V54.1 7 08/23/2014 TREVOR VILLANUEVA, SHANTANU E Ot V57.8 9 08/23/2014 TREVOR VILLANUEVA, SHANTANU E Ot V58.6 3 08/23/2014 TREVOR VILLANUEVA, SHANTANU E Ot V58.6 6 08/29/2014 TREVOR VILLANUEVA, SHANTANU E Ot 272.4 08/29/2014 TREVOR VILLANUEVA, SHANTANU E Ot 401.9 08/29/2014 TREVOR VILLANUEVA, SHANTANU E Ot 414.0 1 08/29/2014 TREVOR VILLANUEVA, SHANTANU E Ot V15.8 8 08/29/2014 TREVOR VILLANUEVA, SHANTANU E Ot V45.8 2 08/29/2014 TREVOR VILLANUEVA, SHANTANU E Ot V54.1 7 08/29/2014 TREVOR VILLANUEVA, SHANTANU E Ot V57.8 9 08/29/2014 TREVOR VILLANUEVA, SHANTANU E Ot V58.6 3 08/29/2014 MURRAY MD, SHANTANU E Ot V58.6 6 08/29/2014 SHANTANU MURRAY MD Ot V58.8 9 09/03/2014 SHANTANU MURRAY MD Ot 272.4 HYPERLIPIDEMIA NEC/NOS 09/03/2014 SHANTANU MURRAY MD Ot 333.9 4 RESTLESS LEGS SYNDROME 09/03/2014 SHANTANU MURRAY MD Ot 401.9 HYPERTENSION NOS 09/03/2014 SHANTANU MURRAY MD Ot 414.0 1 CORONARY ATHEROSCLEROSIS OF ELEM CORON 09/03/2014 SHANTANU MURRAY MD Ot 564.0 0 UNSPEC CONSTIPATION 09/03/2014 SHANTANU MURRAY MD Ot 715.9 0 OSTEOARTHROS NOS-UNSPEC 09/03/2014 SHANTANU MURRAY MD Ot V15.8 8 HISTORY OF FALL 09/03/2014 SHANTANU MURRAY MD Ot V45.8 2 PERCUTANEOUS TRANSLUM CORON ANGIOPLASTY 09/03/2014 SHANTANU MURRAY MD Ot V54.1 7 AFTERCARE HEALING TRAUMATIC FX VERTEBRAE 09/03/2014 SHANTANU MURRAY MD Ot V57.8 9 REHABILITATION PROC NEC 09/03/2014 SHANTANU MURRAY MD Ot V58.6 3 LONG-TERM(CURRENT)USE OF ANTIPLATELET/AN 09/03/2014 SHANTANU MURRAY MD Ot V58.6 6 LONG-TERM (CURRENT) USE OF ASPIRIN 09/03/2014 SHANTANU MURRAY MD Ot V58.8 9 OTHER SPECIFIED AFTERCARE 09/17/2014 Ot V76.12 09/17/2014 NARA VILLANUEVA, ELVIRA Ot V72.84 09/17/2014 ANGELA DPM, LIAM Q Ot 782. 2 09/17/2014 ANGELA DPM, LIAM Q Ot V72. 84 09/17/2014 ANGELA DPM, LIAM Q Ot V74. 8 10/29/2014 KAVITA PHILIP MD Ot 041.0 2 10/29/2014 KAVITA PHILIP MD Ot 041.8 5 10/29/2014 KAVITA PHILIP MD Ot 272.4 10/29/2014 KAVITA PHILIP MD Ot 401.9 10/29/2014 KAVITA PHILIP MD Ot 414.0 1 10/29/2014 KAVITA PHILIP MD Ot 682.6 10/29/2014 KAVITA PHILIP MD Ot 728.8 9 10/29/2014 KAVITA PHILIP MD Ot 906.3 10/29/2014 KAVITA PHILIP MD Ot E929. 3 10/29/2014 KAVITA PHILIP MD Ot V45.8 2 10/29/2014 KAVITA PHILIP MD Ot 041.0 2 10/29/2014 KAVITA PHILIP MD Ot 041.8 5 10/29/2014 KAVITA PHILIP MD Ot 272.4 10/29/2014 KAVITA PHILIP MD Ot 401.9 10/29/2014 KAVITA PHILIP MD Ot 414.0 1 10/29/2014 KAVITA PHILIP MD Ot 682.6 10/29/2014 KAVITA PHILIP MD Ot 728.8 9 10/29/2014 KAVITA PHILIP MD Ot 906.3 10/29/2014 KAVITA PHILIP MD Ot E929. 3 10/29/2014 KAVITA PHILIP MD Ot V45.8 2 10/29/2014 KAVITA PHILIP MD Ot 041.0 2 10/29/2014 KAVITA PHILIP MD Ot 041.8 5 10/29/2014 KAVITA PHILIP MD Ot 272.4 10/29/2014 KAVITA PHILIP MD Ot 401.9 10/29/2014 KAVITA PHILIP MD Ot 414.0 1 10/29/2014 KAVITA PHILIP MD Ot 682.6 10/29/2014 KAVITA PHILIP MD Ot 728.8 9 10/29/2014 KAVITA PHILIP MD Ot 906.3 10/29/2014 KAVITA PHILIP MD Ot E929. 3 10/29/2014 KAVITA PHILIP MD Ot V45.8 2 10/31/2014 KAVITA PHILIP MD Ot 041.0 2 BACTERIAL INFECTION DUE TO STREPTOCOCCUS 10/31/2014 KAVITA PHILIP MD Ot 041.8 5 BACTERIAL INFEC DUE TO OTH GRAM-NEG ORGA 10/31/2014 KAVITA PHILIP MD Ot 272.4 HYPERLIPIDEMIA NEC/NOS 10/31/2014 KAVITA PHILIP MD Ot 401.9 HYPERTENSION NOS 10/31/2014 KAVITA PHILIP MD Ot 414.0 1 CORONARY ATHEROSCLEROSIS OF ELEM CORON 10/31/2014 KAVITA PHILIP MD Ot 682.6 CELLULITIS OF LEG 10/31/2014 KAVITA PHILIP MD Ot 728.8 9 MUSCLE/LIGAMENT DIS NEC 10/31/2014 KAVITA PHILIP MD Ot 906.3 LATE EFFECT OF CONTUSION 10/31/2014 KAVITA PHILIP MD Ot E929. 3 LATE EFF ACCIDENTAL FALL 10/31/2014 KAVITA PHILIP MD Ot V45.8 2 PERCUTANEOUS TRANSLUM CORON ANGIOPLASTY 11/05/2014 KAVITA PHILIP MD Ot 041.0 2 BACTERIAL INFECTION DUE TO STREPTOCOCCUS 11/05/2014 KAVITA PHILIP MD Ot 041.8 5 BACTERIAL INFEC DUE TO OTH GRAM-NEG ORGA 11/05/2014 KAVITA PHILIP MD Ot 272.4 HYPERLIPIDEMIA NEC/NOS 11/05/2014 KAVITA PHILIP MD Ot 401.9 HYPERTENSION NOS 11/05/2014 KAVITA PHILIP MD Ot 414.0 1 CORONARY ATHEROSCLEROSIS OF ELEM CORON 11/05/2014 KAVITA PHILIP MD Ot 682.6 CELLULITIS OF LEG 11/05/2014 KAVITA PHILIP MD Ot 728.8 9 MUSCLE/LIGAMENT DIS NEC 11/05/2014 KAVITA PHILIP MD Ot 906.3 LATE EFFECT OF CONTUSION 11/05/2014 KAVITA PHILIP MD Ot E929. 3 LATE EFF ACCIDENTAL FALL 11/05/2014 KAVITA PHILIP MD Ot V45.8 2 PERCUTANEOUS TRANSLUM CORON ANGIOPLASTY 11/12/2014 TREVOR VILLANUEVA, SHANTANU E Ot 272.4 11/12/2014 TREVOR VILLANUEVA, SHANTANU E Ot 401.9 11/12/2014 TREVOR VILLANUEVA, SHANTANU E Ot 414.0 1 11/12/2014 TREVOR VILLANUEVA, SHANTANU E Ot 530.8 1 11/12/2014 TREVOR VILLANUEVA, SHANTANU E Ot 564.0 0 11/12/2014 TREVOR VILLANUEVA, SHANTANU E Ot 682.6 11/12/2014 TREVOR VILLANUEVA, SHANTANU E Ot 724.5 11/12/2014 TREVOR VILLANUEVA, SHANTANU E Ot V45.8 2 11/12/2014 TREVOR VILLANUEVA, SHANTANU E Ot V54.1 7 11/12/2014 TREVOR VILLANUEVA, SHANTANU E Ot V57.8 9 11/13/2014 TREVOR VILLANUEVA, SHANTANU E Ot 272.4 HYPERLIPIDEMIA NEC/NOS 11/13/2014 TREVOR VILLANUEVA, SHANTANU E Ot 401.9 HYPERTENSION NOS 11/13/2014 TREVOR VILLANUEVA SHANTANU E Ot 414.0 1 CORONARY ATHEROSCLEROSIS OF ELEM CORON 11/13/2014 TREVOR VILLANUEVA SHANTANU E Ot 530.8 1 ESOPHAGEAL REFLUX 11/13/2014 TREVOR VILLANUEVA SHANTANU E Ot 564.0 0 UNSPEC CONSTIPATION 11/13/2014 SHANTANU MURRAY MD Ot 682.6 CELLULITIS OF LEG 11/13/2014 TREVOR VILLANUEVA, SHANTANU Juan Ot 724.5 BACKACHE NOS 11/13/2014 SHANTANU MURRAY MD Ot V45.8 2 PERCUTANEOUS TRANSLUM CORON ANGIOPLASTY 11/13/2014 SHANTANU MURRAY MD Ot V54.1 7 AFTERCARE HEALING TRAUMATIC FX VERTEBRAE 11/13/2014 SHANTANU MURRAY MD Ot V57.8 9 REHABILITATION PROC NEC 11/13/2014 KAVITA PHILIP MD Ot 924.5 11/13/2014 KAVITA PHILIP MD Ot E000. 8 11/13/2014 KAVITA PHILIP MD Ot E849. 0 11/13/2014 KAVITA PHILIP MD Ot E888. 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 01/22/2015 KAVITA PHILIP MD Ot 457.1 OTHER LYMPHEDEMA 01/22/2015 KAVITA PHILIP MD Ot 707.1 2 ULCER OF CALF 01/22/2015 KAVITA PHILIP MD Ot 998.8 3 NON-HEALING SURG WOUND 01/28/2015 KAVITA PHILIP MD Ot 440.2 3 01/28/2015 KAVITA PHILIP MD Ot 457.1 01/28/2015 KAVITA PHILIP MD Ot 707.1 2 01/28/2015 KAVITA PHILIP MD Ot 998.8 3 02/11/2015 KAVITA PHILIP MD Ot I70.2 32 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 02/11/2015 CEDRICK VILLANUEVA, KAVITA Cornell Ot I89.0 LYMPHEDEMA, NOT ELSEWHERE CLASSIFIED 02/11/2015 CEDRICK VILLANUEVA, KAVITA Cornell Ot T81.89XS OTH COMPLICATIONS OF PROCEDURES, NEC, [...] PHILIP MD Ot M54.5 LOW BACK PAIN 03/26/2016 KAVITA PHILIP MD Ot M54.2 CERVICALGIA 03/26/2016 KAVITA PHILIP MD Ot M54.5 LOW BACK PAIN 10/08/2016 CECILIA OVIEDO DOI Ot D72.82 9 ELEVATED WHITE BLOOD CELL COUNT, UNSPECI 10/08/2016 IVELISSE DO COLLEEN Ot I10 ESSENTIAL (PRIMARY) HYPERTENSION 10/08/2016 IVELISSE SANCHES COLLEEN Ot K21.9 GASTRO-ESOPHAGEAL REFLUX DISEASE WITHOUT 10/08/2016 IVELISSE DO COLLEEN Ot K59.09 OTHER CONSTIPATION 10/08/2016 IVELISSE SANCHES COLLEEN Ot S00.83 XA CONTUSION OF OTHER PART OF HEAD, INITIAL 10/08/2016 IVELISSE SANCHES COLLEEN Ot S79.91 2A UNSPECIFIED INJURY OF LEFT HIP, INITIAL 10/08/2016 IVELISSE SANCHES COLLEEN Ot W19.XX XA UNSPECIFIED FALL, INITIAL ENCOUNTER 10/08/2016 IVELISSE SANCHES COLLEEN Ot Y92.[address] IN HOSPITAL PLACE 10/14/2016 TREVOR VILLANUEVA, SHANTANU Juan Ot E78.5 HYPERLIPIDEMIA, UNSPECIFIED 10/14/2016 MAO MURRAY MDIC E Ot I10 ESSENTIAL (PRIMARY) HYPERTENSION 10/14/2016 MAO MURRAY MDIC E Ot I25.1 0 ATHSCL HEART DISEASE OF ELEM CORONARY 10/14/2016 MAO MURRAY MDIC E Ot I73.9 PERIPHERAL VASCULAR DISEASE, UNSPECIFIED 10/14/2016 MAO MURRAY MDIC E Ot K21.9 GASTRO-ESOPHAGEAL REFLUX DISEASE WITHOUT 10/14/2016 MAO MURRAY MDIC E Ot K59.0 9 OTHER CONSTIPATION 10/14/2016 MAO MURRAY MDIC E Ot M16.1 1 UNILATERAL PRIMARY OSTEOARTHRITIS, RIGHT 10/14/2016 MAO MURRAY MDIC E Ot M54.5 LOW BACK PAIN 10/14/2016 MAO MURRAY MDIC E Ot S70.01XD CONTUSION OF RIGHT HIP, SUBSEQUENT ENCOU 10/14/2016 MAO MURRAY MDIC E Ot W19.XXXD UNSPECIFIED FALL, SUBSEQUENT ENCOUNTER 10/14/2016 MAO MURRAY MDIC E Ot Z66 DO NOT RESUSCITATE 10/14/2016 MAO MURRAY MDIC E Ot Z95.1 PRESENCE OF AORTOCORONARY BYPASS GRAFT 10/14/2016 MAO MURRAY MDIC E Ot Z95.5 PRESENCE OF CORONARY ANGIOPLASTY IMPLANT 10/14/2016 MAO MURRAY MDIC E Ot Z95.8 20 PERIPHERAL VASCULAR ANGIOPLASTY STATUS W 10/14/2016 MAO MURRAY MDIC E Ot E78.5 HYPERLIPIDEMIA, UNSPECIFIED 10/14/2016 MAO MURRAY MDIC E Ot I10 ESSENTIAL (PRIMARY) HYPERTENSION 10/14/2016 MAO MURRAY MDIC E Ot I25.1 0 ATHSCL HEART DISEASE OF ELEM CORONARY 10/14/2016 MAO MURRAY MDIC E Ot I73.9 PERIPHERAL VASCULAR DISEASE, UNSPECIFIED 10/14/2016 MAO MURRAY MDIC E Ot K21.9 GASTRO-ESOPHAGEAL REFLUX DISEASE WITHOUT 10/14/2016 MAO MURRAY MDIC E Ot K59.0 9 OTHER CONSTIPATION 10/14/2016 MAO MURRAY MDIC E Ot M16.1 1 UNILATERAL PRIMARY OSTEOARTHRITIS, RIGHT 10/14/2016 MAO MURRAY [...] IMPLANT 10/14/2016 SHANTANU MURRAY MD E Ot Z95.8 20 PERIPHERAL VASCULAR ANGIOPLASTY STATUS W 10/14/2016 SHANTANU MURRAY MD E Ot E78.5 HYPERLIPIDEMIA, UNSPECIFIED 10/14/2016 SHANTANU MURRAY MD E Ot I10 ESSENTIAL (PRIMARY) HYPERTENSION 10/14/2016 SHANTANU MURRAY MD E Ot I25.1 0 ATHSCL HEART DISEASE OF ELEM CORONARY 10/14/2016 SHANTANU MURRAY MD E Ot I73.9 PERIPHERAL VASCULAR DISEASE, UNSPECIFIED 10/14/2016 SHANTANU MURRAY MD E Ot K21.9 GASTRO-ESOPHAGEAL REFLUX DISEASE WITHOUT 10/14/2016 MAO MURRAY MDIC E Ot K59.0 9 OTHER CONSTIPATION 10/14/2016 MAO MURRAY MDIC E Ot M16.1 1 UNILATERAL PRIMARY OSTEOARTHRITIS, RIGHT 10/14/2016 MAO MURRAY [...] IMPLANT 10/14/2016 SHANTANU MURRAY MD E Ot Z95.8 20 PERIPHERAL VASCULAR ANGIOPLASTY STATUS W 10/15/2016 SHANTANU MURRAY MD E Ot E78.5 HYPERLIPIDEMIA, UNSPECIFIED 10/15/2016 MAO MURRAY MDIC E Ot I10 ESSENTIAL (PRIMARY) HYPERTENSION 10/15/2016 MAO MURRAY MDIC E Ot I25.1 0 ATHSCL HEART DISEASE OF ELEM CORONARY 10/15/2016 MAO MURRAY MDIC E Ot I73.9 PERIPHERAL VASCULAR DISEASE, UNSPECIFIED 10/15/2016 MAO MURRAY MDIC E Ot K21.9 GASTRO-ESOPHAGEAL REFLUX DISEASE WITHOUT 10/15/2016 MAO MURRAY MDIC E Ot K59.0 9 OTHER CONSTIPATION 10/15/2016 MAO MURRAY MDIC E Ot M16.1 1 UNILATERAL PRIMARY OSTEOARTHRITIS, RIGHT 10/15/2016 MAO MURRAY [...] IMPLANT 10/15/2016 SHANTANU MURRAY MD E Ot Z95.8 20 PERIPHERAL VASCULAR ANGIOPLASTY STATUS W 10/21/2016 SHANTANU MURRAY MD E Ot E78.5 HYPERLIPIDEMIA, UNSPECIFIED 10/21/2016 TREVOR VILLANUEVA SHANTANU E Ot I10 ESSENTIAL (PRIMARY) HYPERTENSION 10/21/2016 TREVOR VILLANUEVA SHANTANU E Ot I25.1 0 ATHSCL HEART DISEASE OF ELEM CORONARY 10/21/2016 TREVOR VILLANUEVA SHANTANU E Ot I73.9 PERIPHERAL VASCULAR DISEASE, UNSPECIFIED 10/21/2016 MAO MURRAY MDIC E Ot K21.9 GASTRO-ESOPHAGEAL REFLUX DISEASE WITHOUT 10/21/2016 TREVOR VILLANUEVA SHANTANU E Ot K59.0 9 OTHER CONSTIPATION 10/21/2016 MAO MURRAY MDIC E Ot M16.1 1 UNILATERAL PRIMARY OSTEOARTHRITIS, RIGHT 10/21/2016 MAO MURRAY MDIC E Ot M54.5 LOW BACK PAIN 10/21/2016 TREVOR VILLANUEVA SHANTANU E Ot S70.01XD CONTUSION OF RIGHT HIP, SUBSEQUENT ENCOU 10/21/2016 MAO MURRAY MDIC E Ot W19.XXXD UNSPECIFIED FALL, SUBSEQUENT ENCOUNTER 10/21/2016 MAO MURRAY MDIC E Ot Z66 DO NOT RESUSCITATE 10/21/2016 MAO MURRAY MDIC E Ot Z95.1 PRESENCE OF AORTOCORONARY BYPASS GRAFT 10/21/2016 SHANTANU MURRAY MD E Ot Z95.5 PRESENCE OF CORONARY ANGIOPLASTY IMPLANT 10/21/2016 MAO MURRAY MDIC E Ot Z95.8 20 PERIPHERAL VASCULAR ANGIOPLASTY STATUS W 10/21/2016 SHANTANU MURRAY MD E Ot E78.5 HYPERLIPIDEMIA, UNSPECIFIED 10/21/2016 SHANTANU MURRAY MD E Ot I10 ESSENTIAL (PRIMARY) HYPERTENSION 10/21/2016 SHANTANU MURRAY MD Ot I25.1 0 ATHSCL HEART DISEASE OF ELEM CORONARY 10/21/2016 SHANTANU MURRAY MD E Ot I73.9 PERIPHERAL VASCULAR DISEASE, UNSPECIFIED 10/21/2016 SHANTANU MURRAY MD Ot K21.9 GASTRO-ESOPHAGEAL REFLUX DISEASE WITHOUT 10/21/2016 SHANTANU MURRAY MD E Ot K59.0 9 OTHER CONSTIPATION 10/21/2016 SHANTANU MURRAY MD E Ot M16.1 1 UNILATERAL PRIMARY OSTEOARTHRITIS, RIGHT 10/21/2016 SHANTANU MURRAY [...] IMPLANT 10/21/2016 SHANTANU MURRAY MD E Ot Z95.8 20 PERIPHERAL VASCULAR ANGIOPLASTY STATUS W 01/14/2017 ARIEL GUERRERO NEONATAL CRITICAL CARE NURSE Ot M54.2 CERVICALGIA 01/14/2017 ARIEL GUERRERO NEONATAL CRITICAL CARE NURSE Ot M54.5 LOW BACK PAIN 01/14/2017 KAVITA PHILIP MD Ot 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 01/14/2017 KAVITA PHILIP MD Ot S32.020A WEDGE COMPRESSION FRACTURE OF SECOND LUM 01/14/2017 KAVITA PHILIP MD Ot X58.XXXA EXPOSURE TO OTHER SPECIFIED FACTORS, INI 01/14/2017 KAVITA PHILIP MD Ot Y99.8 OTHER EXTERNAL CAUSE STATUS 01/19/2017 ARIEL GUERRERO NEONATAL CRITICAL CARE NURSE Ot M54.2 CERVICALGIA 01/19/2017 ARIEL GUERRERO NEONATAL CRITICAL CARE NURSE Ot M54.5 LOW BACK PAIN 01/19/2017 KAVITA PHILIP MD Ot 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 01/19/2017 CEDRICK VILLANUEVA, KAVITA Cornell Ot S32.020A WEDGE COMPRESSION FRACTURE OF SECOND LUM 01/19/2017 CEDRICK VILLANUEVA, KAVITA Cornell Ot X58.XXXA EXPOSURE TO OTHER SPECIFIED FACTORS, INI 01/19/2017 CEDRICK VILLANUEVA, KAVITA Cornell Ot Y99.8 OTHER EXTERNAL CAUSE STATUS 01/22/2017 YOLANDA, ARIEL R NEONATAL CRITICAL CARE NURSE Ot M54.2 CERVICALGIA 01/22/2017 YOLANDA, ARIEL R NEONATAL CRITICAL CARE NURSE Ot M54.5 LOW BACK PAIN 01/31/2017 YOLANDA, ARIEL R NEONATAL CRITICAL CARE NURSE Ot M54.2 CERVICALGIA 01/31/2017 YOLANDA, ARIEL R NEONATAL CRITICAL CARE NURSE Ot M54.5 LOW BACK PAIN 03/18/2017 YOLANDA, ARIEL R NEONATAL CRITICAL CARE NURSE Ot M54.2 CERVICALGIA 03/18/2017 YOLANDA, ARIEL R NEONATAL CRITICAL CARE NURSE Ot M54.5 LOW BACK PAIN 03/24/2017 YOLANDA, ARIEL R NEONATAL CRITICAL CARE NURSE Ot M54.2 CERVICALGIA 03/24/2017 YOLANDA, ARIEL R NEONATAL CRITICAL CARE NURSE Ot M54.5 LOW BACK PAIN 04/28/2017 YOLANDA, ARIEL R NEONATAL CRITICAL CARE NURSE Ot M54.2 CERVICALGIA 04/28/2017 YOLANDA, ARIEL R NEONATAL CRITICAL CARE NURSE Ot M54.5 LOW BACK PAIN 02/01/2018 XENA VILLANUEVA, ANTONY León Ot E78.00 PURE HYPERCHOLESTEROLEMIA, UNSPECIFIED 02/01/2018 XENA VILLANUEVA, ANTONY T Ot I10 ESSENTIAL (PRIMARY) HYPERTENSION 02/01/2018 XENA VILLANUEVA, ANTONY León Ot 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 02/01/2018 ANTONY MCCALLUM MD Ot I73.9 PERIPHERAL VASCULAR DISEASE, UNSPECIFIED 02/01/2018 XENA VILLANUEVA, ANTONY León Ot K21.9 GASTRO-ESOPHAGEAL REFLUX DISEASE WITHOUT 02/01/2018 XENA VILLANUEVA, ANTONY León Ot M25.551 PAIN IN RIGHT HIP 02/01/2018 [...] ABNORMAL FINDING OF TRICIA 02/01/2018 ANTONY MCCALLUM MD, Ot S01.81XA LACERATION W/O FOREIGN BODY OF OTH PART 02/01/2018 ANTONY MCCALLUM MD, Ot W19.XXXA UNSPECIFIED FALL, INITIAL ENCOUNTER 02/01/2018 ANTONY MCCALLUM MD, Ot Z23 ENCOUNTER FOR IMMUNIZATION 02/01/2018 ANTONY MCCALLUM MD Ot Z79.82 BRIDGE MANAGER (CURRENT) USE OF ASPIRIN 02/01/2018 ANTONY MCCALLUM MD, Ot Z82.49 FAMILY HX OF ISCHEM HEART DIS AND OTH DI 02/01/2018 ANTONY MCCALLUM MD, Ot Z87.01 PERSONAL HISTORY OF PNEUMONIA (RECURRENT 02/01/2018 ANTONY MCCALLUM MD, Ot Z87.19 PERSONAL HISTORY OF OTHER DISEASES OF TH 02/01/2018 ANTONY MCCALLUM MD, Ot Z87.440 PERSONAL HISTORY OF URINARY (TRACT) INFE 02/01/2018 ANTONY MCCALLUM MD Ot Z88.5 ALLERGY STATUS TO NARCOTIC AGENT STATUS 02/01/2018 ANTONY MCCALLUM MD, Ot Z88.8 ALLERGY STATUS TO OT DRUG/MEDS/BIOL SUB 02/01/2018 ANTONY MCCALLUM MD Ot Z90.49 ACQUIRED ABSENCE OF OTHER SPECIFIED PART 02/01/2018 ANTONY MCCALLUM MD Ot Z90.89 ACQUIRED ABSENCE OF OTHER ORGANS 02/01/2018 ANTONY MCCALLUM MD Ot Z95.5 PRESENCE OF CORONARY ANGIOPLASTY IMPLANT 02/01/2018 ANTONY MCCALLUM MD Ot Z98.62 PERIPHERAL VASCULAR ANGIOPLASTY STATUS 02/08/2018 PHOEBE PULIDO APRN Ot Z48.02 ENCOUNTER FOR REMOVAL OF SUTURES 02/10/2018 ANTONY MCCALLUM MD Ot E78.00 PURE HYPERCHOLESTEROLEMIA, UNSPECIFIED 02/10/2018 ANTONY MCCALLUM MD Ot I10 ESSENTIAL (PRIMARY) HYPERTENSION 02/10/2018 ANTONY MCCALLUM MD, Ot 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 02/10/2018 ANTONY MCCALLUM MD, Ot I73.9 PERIPHERAL VASCULAR DISEASE, UNSPECIFIED 02/10/2018 ANTONY MCCALLUM MD, Ot K21.9 GASTRO-ESOPHAGEAL REFLUX DISEASE WITHOUT 02/10/2018 ANTONY MCCALLUM MD Ot M25.551 PAIN IN RIGHT HIP 02/10/2018 ANTONY MCCALLUM MD Ot R40.2142 COMA SCALE, [...] IMMUNIZATION 02/10/2018 ANTONY MCCALLUM MD, Ot Z79.82 BRIDGE MANAGER (CURRENT) USE OF ASPIRIN 02/10/2018 ANTONY MCCALLUM [...] TO NARCOTIC AGENT STATUS 02/10/2018 ANTONY MCCALLUM MD Ot Z88.8 ALLERGY STATUS TO [facility] DRUG/MEDS/BIOL SUB 02/10/2018 ANTONY MCCALLUM MD Ot Z90.49 ACQUIRED ABSENCE OF OTHER SPECIFIED PART 02/10/2018 ANTONY MCCALLUM MD Ot Z90.89 ACQUIRED ABSENCE OF OTHER ORGANS 02/10/2018 ANTONY MCCALLUM MD Ot Z95.5 PRESENCE OF CORONARY ANGIOPLASTY IMPLANT 02/10/2018 ANTONY MCCALLUM MD Ot Z98.62 PERIPHERAL VASCULAR ANGIOPLASTY STATUS 02/13/2018 PHOEBE PULIDO APRN Ot Z48.02 ENCOUNTER FOR REMOVAL OF SUTURES 02/27/2018 NARA VILLANUEVA, ELVIRA Ot V72.84 EXAM PRE-OPERATIVE NOS 02/27/2018 ANGELA DPM, LIAM Q Ot 782. 2 LOCAL SUPRFICIAL SWELLNG 02/27/2018 ANGELA DPM, LIAM Q Ot V72. 84 EXAM PRE-OPERATIVE NOS 02/27/2018 ANGELA DPM, LIAM Q Ot V74. 8 SCREEN-BACTERIAL DIS NEC 02/27/2018 KAVITA PHILIP MD Ot 924.5 CONTUSION LEG NOS 02/27/2018 KAVITA PHILIP MD Ot E000. 8 OTHER EXTERNAL CAUSE STATUS 02/27/2018 KAVITA PHILIP MD Ot E849. 0 ACCIDENT IN HOME 02/27/2018 KAVITA PHILIP MD Ot E888. 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 02/27/2018 ROBBY REYES MD Ot 707.12 ULCER OF CALF 02/27/2018 KAVITA PHILIP MD Ot 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 02/27/2018 KAVITA PHILIP MD Ot S32.020A WEDGE COMPRESSION FRACTURE OF SECOND LUM 02/27/2018 KAVITA PHILIP MD Ot X58.XXXA EXPOSURE TO OTHER SPECIFIED FACTORS, INI 02/27/2018 KAVITA PHILIP MD Ot Y99.8 OTHER EXTERNAL CAUSE STATUS 03/30/2018 KAVITA PHILIP MD Ot R32 UNSPECIFIED URINARY INCONTINENCE 04/21/2018 KAVITA PHILIP MD, Ot R32 UNSPECIFIED URINARY INCONTINENCE 04/28/2018 CEDRICK MD, KAVITA D Ot R32 UNSPECIFIED URINARY INCONTINENCE 04/28/2018 KAVITA PHILIP MD Ot R32 UNSPECIFIED URINARY INCONTINENCE 04/28/2018 KAVITA PHILIP MD Ot R32 UNSPECIFIED URINARY INCONTINENCE 05/09/2018 LESLEE HANCOCK MD Ot A41.89 OTHER SPECIFIED SEPSIS 05/09/2018 LESLEE HANCOCK MD Ot E78.00 PURE HYPERCHOLESTEROLEMIA, UNSPECIFIED 05/09/2018 LESLEE HANCOCK MD Ot E87.2 ACIDOSIS 05/09/2018 LESLEE HANCOCK MD Ot I10 ESSENTIAL (PRIMARY) HYPERTENSION 05/09/2018 LESLEE HANCOCK MD Ot I11.0 HYPERTENSIVE HEART DISEASE WITH HEART FA 05/09/2018 LESLEE HANCOCK MD Ot 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 05/09/2018 LESLEE HANCOCK MD Ot I50.21 [...] MD Ot 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 05/12/2018 LESLEE HANCOCK MD Ot I73.9 [...] MD Ot 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 05/12/2018 LESLEE HANCOCK MD Ot I73.9 [...] MD Ot E78.00 PURE HYPERCHOLESTEROLEMIA, UNSPECIFIED 05/12/2018 LESELE HANCOCK MD Ot E87.2 ACIDOSIS 05/12/2018 LESLEE HANCOCK MD Ot I10 ESSENTIAL (PRIMARY) HYPERTENSION 05/12/2018 LESLEE HANCOCK MD Ot 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 05/12/2018 LESLEE HANCOCK MD Ot I73.9 [...] Z87.81 PERSONAL HISTORY OF (HEALED) TRAUMATIC F 11/22/2018 RIVAS ALBA MD Ot E78. 00 PURE HYPERCHOLESTEROLEMIA, UNSPECIFIED 11/22/2018 RIVAS ALBA MD, Ot I25. 10 ATHSCL HEART DISEASE OF [place] CORONARY 11/22/2018 RIVAS ALBA MD, Ot I73. 9 PERIPHERAL VASCULAR DISEASE, UNSPECIFIED 11/22/2018 RIVAS ALBA MD, Ot K21. 9 GASTRO-ESOPHAGEAL REFLUX DISEASE WITHOUT 11/22/2018 RIVAS ALBA MD, Ot K59. 09 OTHER CONSTIPATION 11/22/2018 RIVAS ALBA MD, Ot M19. 91 PRIMARY OSTEOARTHRITIS, UNSPECIFIED SITE 11/22/2018 RIVAS ALBA MD Ot R29. 6 REPEATED FALLS 11/22/2018 RIVAS ALBA MD Ot R91. 8 OTHER NONSPECIFIC ABNORMAL FINDING OF TRICIA 11/22/2018 RIVAS ALBA MD Ot S42.021A DISP FX OF SHAFT OF RIGHT CLAVICLE, INIT 11/22/2018 RIVAS ALBA MD Ot W19.XXXA UNSPECIFIED FALL, INITIAL ENCOUNTER 11/22/2018 RIVAS ALBA MD Ot Y92.[address] [facility] [address] IN [facility] NON-INSTITUT (PRIVATE 11/22/2018 RIVAS ALBA MD Ot Z66 DO NOT RESUSCITATE 11/22/2018 RIVAS ALBA MD Ot Z79.899 OTHER [facility] (CURRENT) DRUG THERAPY 11/22/2018 RIVAS ALBA MD Ot Z88. 5 ALLERGY STATUS TO NARCOTIC AGENT STATUS 11/22/2018 RIVAS ALBA MD Ot Z95. 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 12/11/2018 OVIEDO DO, COLLEEN Ot I11.0 HYPERTENSIVE HEART DISEASE WITH HEART FA 12/11/2018 OVIEDO DO, COLLEEN Ot 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 12/11/2018 OVIEDO DO, COLLEEN Ot I34.0 NONRHEUMATIC MITRAL (VALVE) INSUFFICIENC 12/11/2018 OVIEDO DO, COLLEEN Ot I50.9 HEART FAILURE, UNSPECIFIED 12/11/2018 OVIEDO DO, COLLEEN Ot I73.9 PERIPHERAL VASCULAR DISEASE, UNSPECIFIED 12/11/2018 OVIEDO DO, COLLEEN Ot I87.2 VENOUS INSUFFICIENCY (CHRONIC) (PERIPHER 12/11/2018 OVIEDO DO, COLLEEN Ot I95.2 HYPOTENSION DUE TO DRUGS 12/11/2018 OVIEDO DO, COLLEEN Ot J18.9 PNEUMONIA, UNSPECIFIED ORGANISM 12/11/2018 OVIEDO DO, COLLEEN Ot K21.9 GASTRO-ESOPHAGEAL REFLUX DISEASE WITHOUT 12/11/2018 OVIEDO DO, COLLEEN Ot K59.09 OTHER CONSTIPATION 12/11/2018 OVIEDO DO, COLLEEN Ot R00.0 TACHYCARDIA, UNSPECIFIED 12/11/2018 OVIEDO DO, COLLEEN Ot R09.89 OTH SYMPTOMS AND SIGNS INVOLVING THE CIR 12/11/2018 OVIEDO DO, COLLEEN Ot R29.6 REPEATED FALLS 12/11/2018 OVIEDO DO, COLLEEN Ot R91.8 OTHER NONSPECIFIC ABNORMAL FINDING OF TRICIA 12/11/2018 IVELISSE SANCHES COLLEEN Ot S42.00 1D FX UNSP PART OF R CLAVICLE, SUBS FOR FX 12/11/2018 IVELISSE DO COLLEEN Ot W19.XX XD UNSPECIFIED FALL, SUBSEQUENT ENCOUNTER 12/11/2018 IVELISSE SANCHES COLLEEN Ot Y92.[address] [facility] ([facility] 12/11/2018 IVELISSE SANCHES COLLEEN Ot Z66 DO NOT RESUSCITATE 12/11/2018 COLLEEN OVIEDO DO Ot Z95.5 PRESENCE OF CORONARY ANGIOPLASTY IMPLANT 12/11/2018 COLLEEN OVIEDO DO Ot Z95.82 0 PERIPHERAL VASCULAR ANGIOPLASTY STATUS W 03/29/2019 KAVITA PHILIP MD Ot 924.5 CONTUSION LEG NOS 03/29/2019 KAVITA PHILIP MD Ot E000. 8 OTHER EXTERNAL CAUSE STATUS 03/29/2019 KAVITA PHILIP MD Ot E849. 0 ACCIDENT IN HOME 03/29/2019 KAVITA PHILIP MD Ot E888. 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 03/29/2019 KAVITA PHILIP MD Ot S32.020A WEDGE COMPRESSION FRACTURE OF SECOND LUM 03/29/2019 KAVITA PHILIP MD Ot X58.XXXA EXPOSURE TO OTHER SPECIFIED FACTORS, INI 03/29/2019 KAVITA PHILIP MD Ot Y99.8 OTHER EXTERNAL CAUSE STATUS 03/29/2019 JIMI AGUILERA Ot M19.011 PRIMARY OSTEOARTHRITIS, RIGHT SHOULDER 03/29/2019 JIMI AGUILERA Ot Z87.81 PERSONAL HISTORY OF (HEALED) TRAUMATIC F 04/02/2019 KAVITA PHILIP MD Ot R05 COUGH 04/02/2019 KAVITA PHILIP MD Ot R06.0 2 SHORTNESS OF BREATH 04/02/2019 KAVITA PHILIP MD Ot R91.8 OTHER NONSPECIFIC ABNORMAL FINDING OF TRICIA 04/04/2019 JIMI AGUILERA Ot J18.9 PNEUMONIA, UNSPECIFIED ORGANISM 04/04/2019 JIMI AGUILERA Ot J 90 PLEURAL EFFUSION, NOT ELSEWHERE CLASSIFI 04/04/2019 JIMI AGUILERA Ot R91.8 OTHER NONSPECIFIC ABNORMAL FINDING OF TRICIA 04/23/2019 KAVITA PHILIP MD Ot R05 COUGH 04/23/2019 KAVITA PHILIP MD Ot R06.0 2 SHORTNESS OF BREATH 04/23/2019 KAVITA PHILIP MD Ot R91.8 OTHER NONSPECIFIC ABNORMAL FINDING OF TRICIA 04/24/2019 JIMI AGUILERA Ot J18.9 PNEUMONIA, UNSPECIFIED ORGANISM 04/24/2019 JIMI AGUILERA Ot J 90 PLEURAL EFFUSION, NOT ELSEWHERE CLASSIFI 04/24/2019 JIMI AGUILERA Ot R91.8 OTHER NONSPECIFIC ABNORMAL FINDING OF TRICIA 04/26/2019 KAVITA PHILIP MD Ot R05 COUGH 04/26/2019 KAVITA PHILIP MD, Ot R06.0 2 SHORTNESS OF BREATH 04/26/2019 KAVITA PHILIP MD Ot R91.8 OTHER NONSPECIFIC ABNORMAL FINDING OF TRICIA 05/07/2019 JIMI AGUILERA Ot J18.9 PNEUMONIA, UNSPECIFIED ORGANISM 05/07/2019 JIMI AGUILERA Ot J 90 PLEURAL EFFUSION, NOT ELSEWHERE CLASSIFI 05/07/2019 JIMI AGUILERA Ot R91.8 OTHER NONSPECIFIC ABNORMAL FINDING OF TRICIA Procedures Code Description Performed By Tomy oviedo On 83.02 MYOTOMY 10/28/2014 [id number] IN TRODUCTION OF ANTI- INFLAMMATORY INTO J 10/15/2016 Results Test Result Range Complete blood count (CBC) with automate d white blood cell (WBC) differential - 10/07/16 20:10 Blood leukocytes automated count (number/volume) 20.3 10*3/uL 4.3-11.0 Blood erythrocytes automated count (number/volume) 4.51 10*6/uL 4.35-5.85 Venous blood hemoglobin measurement (mass/volume) 13.6 g/dL 11.5-16.0 Blood hematocrit (volume fraction) 42 % 35-52 Automated erythrocyte mean corpuscular volume 93 [ foz_us] 80-99 Automated erythrocyte mean corpuscular h emoglobin (mass per erythrocyte) 30 pg 25-34 Automated erythrocyte mean corpuscular h emoglobin concentration measurement (mass/volume) 33 g/dL 32-36 Automated erythrocyte distribution width ratio 12. 9 % 10.0- 14.5 Automated blood platelet count [...] 10*3 1.0-4.0 Blood monocytes automated count (number/volume) 1. 6 10*3 0.0-1.0 Automated eosinophil count 0.1 10*3/uL 0 .0-0.3 Automated blood basophil count (count/volume) 0.1 10*3/uL 0.0-0.1 Blood manual differential performed dete ction - 10/07/16 20:10 Blood monocytes/100 leukocytes 8 % NRG Manual blood segmented neutrophils/100 leukocytes 81 % NRG Blood band neutrophils/100 leukocytes 3 % NRG Manual blood lymphocytes/100 leukocytes 7 % NRG Manual eosinophils/100 leukocytes in nose 1 % NRG Manual blood basophils/100 leukocytes 0 % NRG Blood erythrocyte morphology finding identification [facility] [place] Comprehensive metabolic panel - 10/07/16 20:10 Serum or plasma sodium measurement (moles/volume) 140 mmol/L 135-145 Serum or plasma potassium measurement (moles/volume) 4.3 mmol/L 3.6-5.0 Serum or plasma chloride measurement (moles/volume) 107 mmol/L 98-107 Carbon dioxide 20 mmol/L 21-32 Serum or plasma anion gap determination (moles/volume) 13 mmol/L 5-14 Serum or plasma urea nitrogen measurement (mass/volume ) 26 mg/dL 7-18 Serum or plasma creatinine measurement (mass/volume) 0.80 mg/dL 0.60-1.30 Serum or plasma urea nitrogen/creatinine mass ratio 33 0-20 Serum or plasma creatinine measurement w ith calculation of estimated glomerular filtration rate > NRG Serum or plasma glucose measurement (mass/volume) 104 mg/dL 70-105 Serum or plasma calcium measurement (mass/volume) 9.0 mg/dL 8.5-10.1 Serum or plasma total bilirubin measurement (mass/volu me) 0.4 mg/dL 0.1-1.0 Serum or plasma alkaline phosphatase sbeastian surement (enzymatic activity/volume) 71 U/L 40-136 Serum or plasma aspartate aminotransfera se measurement (enzymatic activity/volume) 13 U/L 5-34 Serum or plasma alanine aminotransferase measurement (enzymatic activity/volume) 18 U/L 0-55 Serum or plasma protein measurement (mass/volume) 7.1 g/dL 6.4-8.2 Serum or plasma albumin measurement (mass/volume) 4.3 g/dL 3.2-4.5 Complete blood count (CBC) with automate d white blood cell (WBC) differential - 10/08/16 06:13 Blood leukocytes automated count (number/volume) 11.6 10*3/uL 4.3-11.0 Blood erythrocytes automated count (number/volume) 4.24 10*6/uL 4.35-5.85 Venous blood hemoglobin measurement (mass/volume) 12.7 g/dL 11.5-16.0 Blood hematocrit (volume fraction) 40 % 35-52 Automated erythrocyte mean corpuscular volume 93 [ foz_us] 80-99 Automated erythrocyte mean corpuscular h emoglobin (mass per erythrocyte) 30 pg 25-34 Automated erythrocyte mean corpuscular h emoglobin concentration measurement (mass/volume) 32 g/dL 32-36 Automated erythrocyte distribution width ratio 13. 0 % 10.0- 14.5 Automated blood platelet count [...] 10*3 1.0-4.0 Blood monocytes automated count (number/volume) 1. 5 10*3 0.0-1.0 Automated eosinophil count 0.3 10*3/uL 0 .0-0.3 Automated blood basophil count (count/volume) 0.1 10*3/uL 0.0-0.1 Comprehensive metabolic panel - 10/08/16 06:13 Serum or plasma sodium measurement (moles/volume) 139 mmol/L 135-145 Serum or plasma potassium measurement (moles/volume) 4.2 mmol/L 3.6-5.0 Serum or plasma chloride measurement (moles/volume) 105 mmol/L 98-107 Carbon dioxide 22 mmol/L 21-32 Serum or plasma anion gap determination (moles/volume) 12 mmol/L 5-14 Serum or plasma urea nitrogen measurement (mass/volume ) 22 mg/dL 7-18 Serum or plasma creatinine measurement (mass/volume) 0.73 mg/dL 0.60-1.30 Serum or plasma urea nitrogen/creatinine mass ratio 30 0-20 Serum or plasma creatinine measurement w ith calculation of estimated glomerular filtration rate > NRG Serum or plasma glucose measurement (mass/volume) 99 mg/dL 70-105 Serum or plasma calcium measurement (mass/volume) 8.9 mg/dL 8.5-10.1 Serum or plasma total bilirubin measurement (mass/volu me) 0.4 mg/dL 0.1-1.0 Serum or plasma alkaline phosphatase sebastian surement (enzymatic activity/volume) 71 U/L 40-136 Serum or plasma aspartate aminotransfera se measurement (enzymatic activity/volume) 13 U/L 5-34 Serum or plasma alanine aminotransferase measurement (enzymatic activity/volume) 16 U/L 0-55 Serum or plasma protein measurement (mass/volume) 6.7 g/dL 6.4-8.2 Serum or plasma albumin measurement (mass/volume) 3.9 g/dL 3.2-4.5 Complete urinalysis with reflex to cultu re - 10/08/16 12:00 Urine color determination YELLOW NRG Urine clarity determination CLEAR NR G Urine pH measurement by test strip 6 5-9 Specific gravity of urine by test strip 1.020 1.016-1.022 Urine protein assay by test strip, semi-quantitative 1+ NEGATIVE Urine glucose detection by automated test strip NE GATIVE NEGATIVE Erythrocytes detection in urine sediment by light micr oscopy 5+ NEGATIVE Urine ketones detection by automated test strip NE GATIVE NEGATIVE Urine nitrite detection by test strip NEGATIVE NEGATIVE Urine total bilirubin detection by test strip NEGA TIVE NEGATIVE Urine urobilinogen measurement by automated test strip (mass/volume) NORMAL NORMAL Urine leukocyte esterase detection by dipstick 3+ NEGATIVE Automated urine sediment erythrocyte cou nt by microscopy (number/high power field) [HPF] NRG Automated urine sediment leukocyte count by microscopy (number/high power field) [HPF] NRG Bacteria detection in urine sediment by light microsco py NEGATIVE NRG Squamous epithelial cells detection in u rine sediment by light microscopy 2-5 NRG Crystals detection in urine sediment by light microsco py NONE NRG Casts detection in urine sediment by light microscopy NONE NRG Mucus detection in urine sediment by light microscopy NEGATIVE NRG Complete urinalysis with reflex to culture YES NRG Bacterial urine culture - 10/08/16 12:00 Bacterial urine culture [id number] NRG COLONY COUNT 10,000/ML - 100,000/ML NRG FTX;REPORTABLE SEE COMMENT NRG Complete blood count (CBC) with automate d white blood cell (WBC) differential - 02/01/18 10:59 Blood leukocytes automated count (number/volume) 9.1 10*3/uL 4.3-11.0 Blood erythrocytes automated count (number/volume) 4.40 10*6/uL 4.35-5.85 Venous blood hemoglobin measurement (mass/volume) 13.3 g/dL 11.5-16.0 Blood hematocrit (volume fraction) 41 % 35-52 Automated erythrocyte mean corpuscular volume 92 [ foz_us] 80-99 Automated erythrocyte mean corpuscular h emoglobin (mass per erythrocyte) 30 pg 25-34 Automated erythrocyte mean corpuscular h emoglobin concentration measurement (mass/volume) 33 g/dL 32-36 Automated erythrocyte distribution width ratio 13. 4 % 10.0- 14.5 Automated blood platelet count [...] 10*3 1.0-4.0 Blood monocytes automated count (number/volume) 0. 7 10*3 0.0-1.0 Automated eosinophil count 0.2 10*3/uL 0 .0-0.3 Automated blood basophil count (count/volume) 0.1 10*3/uL 0.0-0.1 Comprehensive metabolic panel - 02/01/18 10:59 Serum or plasma sodium measurement (moles/volume) 139 mmol/L 135-145 Serum or plasma potassium measurement (moles/volume) 4.5 mmol/L 3.6-5.0 Serum or plasma chloride measurement (moles/volume) 107 mmol/L 98-107 Carbon dioxide 21 mmol/L 21-32 Serum or plasma anion gap determination (moles/volume) 11 mmol/L 5-14 Serum or plasma urea nitrogen measurement (mass/volume ) 27 mg/dL 7-18 Serum or plasma creatinine measurement (mass/volume) 1.04 mg/dL 0.60-1.30 Serum or plasma urea nitrogen/creatinine mass ratio 26 NRG Serum or plasma creatinine measurement w ith calculation of estimated glomerular filtration rate 50 NRG Serum or plasma glucose measurement (mass/volume) 110 mg/dL 70-105 Serum or plasma calcium measurement (mass/volume) 9.4 mg/dL 8.5-10.1 Serum or plasma total bilirubin measurement (mass/volu me) 0.7 mg/dL 0.1-1.0 Serum or plasma alkaline phosphatase sebastian surement (enzymatic activity/volume) 77 U/L 40-136 Serum or plasma aspartate aminotransfera se measurement (enzymatic activity/volume) 12 U/L 5-34 Serum or plasma alanine aminotransferase measurement (enzymatic activity/volume) 19 U/L 0-55 Serum or plasma protein measurement (mass/volume) 6.6 g/dL 6.4-8.2 Serum or plasma albumin measurement (mass/volume) 4.1 g/dL 3.2-4.5 CALCIUM CORRECTED 9.3 mg/dL 8.5-10.1 Magnesium - 02/01/18 10:59 Magnesium 2.0 mg/dL 1.8-2.4 Blood manual differential performed dete ction - 02/01/18 10:59 Blood monocytes/100 leukocytes 3 % NRG Manual blood segmented neutrophils/100 leukocytes 88 % NRG Blood band neutrophils/100 leukocytes 1 % NRG Manual blood lymphocytes/100 leukocytes 6 % NRG Manual eosinophils/100 leukocytes in nose 1 % NRG Manual blood basophils/100 leukocytes 1 % NRG Blood erythrocyte morphology finding identification NORMAL NRG Serum or plasma troponin i.cardiac measu rement (mass/volume) - 02/01/18 10:59 Serum or plasma troponin i.cardiac measurement (mass/v olume) < ng/mL <0.30 Complete urinalysis with reflex to cultu re - 02/01/18 11:37 Urine color determination YELLOW NRG Urine clarity determination CLEAR NR G Urine pH measurement by test strip 6 5-9 Specific gravity of urine by test strip 1.010 1.016-1.022 Urine protein assay by test strip, semi-quantitative NEGATIVE NEGATIVE Urine glucose detection by automated test strip NE GATIVE NEGATIVE Erythrocytes detection in urine sediment by light micr oscopy NEGATIVE NEGATIVE Urine ketones detection by automated test strip 1+ NEGATIVE Urine nitrite detection by test strip NEGATIVE NEGATIVE Urine total bilirubin detection by test strip NEGA TIVE NEGATIVE Urine urobilinogen measurement by automated test strip (mass/volume) NORMAL NORMAL Urine leukocyte esterase detection by dipstick 2+ NEGATIVE Automated urine sediment erythrocyte cou nt by microscopy (number/high power field) NONE NRG Automated urine sediment leukocyte count by microscopy (number/high power field) [HPF] NRG Bacteria detection in urine sediment by light microsco py TRACE NRG Squamous epithelial cells detection in u rine sediment by light microscopy 2-5 NRG Crystals detection in urine sediment by light microsco py NONE NRG Casts detection in urine sediment by light microscopy NONE NRG Mucus detection in urine sediment by light microscopy NEGATIVE NRG Complete urinalysis with reflex to culture NO NRG Influenza virus A and B antigen detectio n - 05/05/18 09:30 CALL POSITIVES (F1 HELP) AMARI NRG FLU RESULT POSITIVE FOR INFLUENZA B ANT IGEN, NEG FOR A ANTIGEN, BY IA NRG Complete blood count (CBC) with automate d white blood cell (WBC) differential - 05/05/18 10:15 Blood leukocytes automated count (number/volume) 9.3 10*3/uL 4.3-11.0 Blood erythrocytes automated count (number/volume) 4.51 10*6/uL 4.35-5.85 Venous blood hemoglobin measurement (mass/volume) 13.5 g/dL 11.5-16.0 Blood hematocrit (volume fraction) 43 % 35-52 Automated erythrocyte mean corpuscular volume 96 [ foz_us] 80-99 Automated erythrocyte mean corpuscular h emoglobin (mass per erythrocyte) 30 pg 25-34 Automated erythrocyte mean corpuscular h emoglobin concentration measurement (mass/volume) 31 g/dL 32-36 Automated erythrocyte distribution width ratio 13. 5 % 10.0- 14.5 Automated blood platelet count [...] 10*3 1.0-4.0 Blood monocytes automated count (number/volume) 0. 9 10*3 0.0-1.0 Automated eosinophil count 0.1 10*3/uL 0 .0-0.3 Automated blood basophil count (count/volume) 0.1 10*3/uL 0.0-0.1 Blood lactic acid measurement (moles/vol ume) - 05/05/18 10:15 Blood lactic acid measurement (moles/volume) 1.23 mmol/L 0.50-2.00 PT panel in platelet poor plasma by coag ulation assay - 05/05/18 10:15 Prothrombin time (PT) in platelet poor plasma by coagu lation assay 13.2 s 12.2-14.7 INR in platelet poor plasma or blood by coagulation as say 1.0 0.8-1.4 Activated partial thromboplastin time (a PTT) in platelet poor plasma bycoagulation assay - 05/05/18 10:15 Activated partial thromboplastin time (a PTT) in platelet poor plasma bycoagulation assay 27 s 24-35 Comprehensive metabolic panel - 05/05/18 10:15 Serum or plasma sodium measurement (moles/volume) 137 mmol/L 135-145 Serum or plasma potassium measurement (moles/volume) 4.8 mmol/L 3.6-5.0 Serum or plasma chloride measurement (moles/volume) 106 mmol/L 98-107 Carbon dioxide 20 mmol/L 21-32 Serum or plasma anion gap determination (moles/volume) 11 mmol/L 5-14 Serum or plasma urea nitrogen measurement (mass/volume ) 24 mg/dL 7-18 Serum or plasma creatinine measurement (mass/volume) 1.02 mg/dL 0.60-1.30 Serum or plasma urea nitrogen/creatinine mass ratio 24 NRG Serum or plasma creatinine measurement w ith calculation of estimated glomerular filtration rate 51 NRG Serum or plasma glucose measurement (mass/volume) 102 mg/dL 70-105 Serum or plasma calcium measurement (mass/volume) 9.2 mg/dL 8.5-10.1 Serum or plasma total bilirubin measurement (mass/volu me) 0.7 mg/dL 0.1-1.0 Serum or plasma alkaline phosphatase sebastian surement (enzymatic activity/volume) 97 U/L 40-136 Serum or plasma aspartate aminotransfera se measurement (enzymatic activity/volume) 21 U/L 5-34 Serum or plasma alanine aminotransferase measurement (enzymatic activity/volume) 28 U/L 0-55 Serum or plasma protein measurement (mass/volume) 7.1 g/dL 6.4-8.2 Serum or plasma albumin measurement (mass/volume) 4.1 g/dL 3.2-4.5 CALCIUM CORRECTED 9.1 mg/dL 8.5-10.1 Serum or plasma troponin i.cardiac measu rement (mass/volume) - 05/05/18 10:15 Serum or plasma troponin i.cardiac measurement (mass/v olume) 0.042 ng/mL <0.028 Blood manual differential performed dete ction - 05/05/18 10:15 Blood monocytes/100 leukocytes 9 % NRG Manual blood segmented neutrophils/100 leukocytes 79 % NRG Blood band neutrophils/100 leukocytes 0 % NRG Manual blood lymphocytes/100 leukocytes 10 % NRG Manual eosinophils/100 leukocytes in nose 1 % NRG Manual blood basophils/100 leukocytes 1 % NRG Blood erythrocyte morphology finding identification NORMAL NRG Serum or plasma C reactive protein measu rement (mass/volume) - 05/05/18 10:15 Serum or plasma C reactive protein measurement (mass/v olume) 1.52 mg/dL 0.00-0.50 Serum or plasma lithium measurement (mol es/volume) - 05/05/18 10:15 BNP level 967.9 pg/mL <100.0 Bacterial blood culture - 05/05/18 10:15 Bacterial blood culture NG NRG Bacterial blood culture - 05/05/18 10:25 Bacterial blood culture NG NRG Complete urinalysis with reflex to cultu re - 05/05/18 11:15 Urine color determination YELLOW NRG Urine clarity determination CLEAR NR G Urine pH measurement by test strip 5 5-9 Specific gravity of urine by test strip 1.015 1.016-1.022 Urine protein assay by test strip, semi-quantitative 2+ NEGATIVE Urine glucose detection by automated test strip NE GATIVE NEGATIVE Erythrocytes detection in urine sediment by light micr oscopy 2+ NEGATIVE Urine ketones detection by automated test strip NE GATIVE NEGATIVE Urine nitrite detection by test strip NEGATIVE NEGATIVE Urine total bilirubin detection by test strip NEGA TIVE NEGATIVE Urine urobilinogen measurement by automated test strip (mass/volume) NORMAL NORMAL Urine leukocyte esterase detection by dipstick 2+ NEGATIVE Automated urine sediment erythrocyte cou nt by microscopy (number/high power field) [HPF] NRG Automated urine sediment leukocyte count by microscopy (number/high power field) [HPF] NRG Bacteria detection in urine sediment by light microsco py NEGATIVE NRG Squamous epithelial cells detection in u rine sediment by light microscopy 0-2 NRG Crystals detection in urine sediment by light microsco py NONE NRG Casts detection in urine sediment by light microscopy NONE NRG Mucus detection in urine sediment by light microscopy NEGATIVE NRG Complete urinalysis with reflex to culture CULTURE PENDING NRG Bacterial urine culture - 05/05/18 11:15 Bacterial urine culture SEE COMMEN NRG COLONY COUNT . NRG Arterial blood gas measurement - 9 13:45 Blood pCO2 49 mm[Hg] 35-45 Blood pO2 198 mm[Hg] 79-93 Arterial blood bicarbonate measurement (moles/volume) 21 mmol/L 23-27 Arterial blood base excess by calculation -5.1 mmo l/L -2.5-2.5 Arterial blood oxygen saturation measurement 100 % 94-100 * Inhaled oxygen flow rate 50% NRG Arterial blood pH measurement with patient temperature correction 7.25 7.37-7.43 Arterial blood carbon dioxide, total measurement (mole s/volume) 22.9 mmol/L 21.0-31.0 Body site RIGHT RADIAL NRG Assessment of wrist artery patency prior to arterial p uncture POSITIVE NRG Setting of ventilation mode NO NR G Measurement of body temperature 96.4 NRG Serum or plasma troponin i.cardiac measu rement (mass/volume) - 05/05/18 14:34 Serum or plasma troponin i.cardiac measurement (mass/v olume) 0.056 ng/mL <0.028 Fibrin D-dimer FEU measurement in platel et poor plasma (mass/volume) - 05/05/18 15:23 Fibrin D-dimer FEU measurement in platelet poor plasma (mass/volume) 3.55 ug/mL 0.00-0.49 Complete blood count (CBC) with automate d white blood cell (WBC) differential - 05/06/18 04:45 Blood leukocytes automated count (number/volume) 13.5 10*3/uL 4.3-11.0 Blood erythrocytes automated count (number/volume) 4.02 10*6/uL 4.35-5.85 Venous blood hemoglobin measurement (mass/volume) 12.2 g/dL 11.5-16.0 Blood hematocrit (volume fraction) 38 % 35-52 Automated erythrocyte mean corpuscular volume 95 [ foz_us] 80-99 Automated erythrocyte mean corpuscular h emoglobin (mass per erythrocyte) 30 pg 25-34 Automated erythrocyte mean corpuscular h emoglobin concentration measurement (mass/volume) 32 g/dL 32-36 Automated erythrocyte distribution width ratio 13. 5 % 10.0- 14.5 Automated blood platelet count [...] 10*3 1.0-4.0 Blood monocytes automated count (number/volume) 1. 2 10*3 0.0-1.0 Automated eosinophil count 0.1 10*3/uL 0 .0-0.3 Automated blood basophil count (count/volume) 0.0 10*3/uL 0.0-0.1 Comprehensive metabolic panel - 05/06/18 04:45 Serum or plasma sodium measurement (moles/volume) 140 mmol/L 135-145 Serum or plasma potassium measurement (moles/volume) 4.1 mmol/L 3.6-5.0 Serum or plasma chloride measurement (moles/volume) 104 mmol/L 98-107 Carbon dioxide 21 mmol/L 21-32 Serum or plasma anion gap determination (moles/volume) 15 mmol/L 5-14 Serum or plasma urea nitrogen measurement (mass/volume ) 27 mg/dL 7-18 Serum or plasma creatinine measurement (mass/volume) 1.15 mg/dL 0.60-1.30 Serum or plasma urea nitrogen/creatinine mass ratio 23 NRG Serum or plasma creatinine measurement w ith calculation of estimated glomerular filtration rate 45 NRG Serum or plasma glucose measurement (mass/volume) 117 mg/dL 70-105 Serum or plasma calcium measurement (mass/volume) 9.0 mg/dL 8.5-10.1 Serum or plasma total bilirubin measurement (mass/volu me) 0.6 mg/dL 0.1-1.0 Serum or plasma alkaline phosphatase sebastian surement (enzymatic activity/volume) 94 U/L 40-136 Serum or plasma aspartate aminotransfera se measurement (enzymatic activity/volume) 19 U/L 5-34 Serum or plasma alanine aminotransferase measurement (enzymatic activity/volume) 45 U/L 0-55 Serum or plasma protein measurement (mass/volume) 6.3 g/dL 6.4-8.2 Serum or plasma albumin measurement (mass/volume) 3.8 g/dL 3.2-4.5 CALCIUM CORRECTED 9.2 mg/dL 8.5-10.1 Serum or plasma lithium measurement (mol es/volume) - 05/06/18 04:45 BNP level 1126.7 pg/mL <100.0 Complete blood count (CBC) with automate d white blood cell (WBC) differential - 05/07/18 05:30 Blood leukocytes automated count (number/volume) 9.8 10*3/uL 4.3-11.0 Blood erythrocytes automated count (number/volume) 3.95 10*6/uL 4.35-5.85 Venous blood hemoglobin measurement (mass/volume) 11.8 g/dL 11.5-16.0 Blood hematocrit (volume fraction) 38 % 35-52 Automated erythrocyte mean corpuscular volume 97 [ foz_us] 80-99 Automated erythrocyte mean corpuscular h emoglobin (mass per erythrocyte) 30 pg 25-34 Automated erythrocyte mean corpuscular h emoglobin concentration measurement (mass/volume) 31 g/dL 32-36 Automated erythrocyte distribution width ratio 13. 4 % 10.0- 14.5 Automated blood platelet count [...] 10*3 1.0-4.0 Blood monocytes automated count (number/volume) 1. 0 10*3 0.0-1.0 Automated eosinophil count 0.1 10*3/uL 0 .0-0.3 Automated blood basophil count (count/volume) 0.0 10*3/uL 0.0-0.1 Comprehensive metabolic panel - 05/07/18 05:30 Serum or plasma sodium measurement (moles/volume) 138 mmol/L 135-145 Serum or plasma potassium measurement (moles/volume) 4.0 mmol/L 3.6-5.0 Serum or plasma chloride measurement (moles/volume) 105 mmol/L 98-107 Carbon dioxide 22 mmol/L 21-32 Serum or plasma anion gap determination (moles/volume) 11 mmol/L 5-14 Serum or plasma urea nitrogen measurement (mass/volume ) 32 mg/dL 7-18 Serum or plasma creatinine measurement (mass/volume) 1.22 mg/dL 0.60-1.30 Serum or plasma urea nitrogen/creatinine mass ratio 26 NRG Serum or plasma creatinine measurement w ith calculation of estimated glomerular filtration rate 42 NRG Serum or plasma glucose measurement (mass/volume) 94 mg/dL 70-105 Serum or plasma calcium measurement (mass/volume) 8.8 mg/dL 8.5-10.1 Serum or plasma total bilirubin measurement (mass/volu me) 0.6 mg/dL 0.1-1.0 Serum or plasma alkaline phosphatase sebastian surement (enzymatic activity/volume) 81 U/L 40-136 Serum or plasma aspartate aminotransfera se measurement (enzymatic activity/volume) 16 U/L 5-34 Serum or plasma alanine aminotransferase measurement (enzymatic activity/volume) 32 U/L 0-55 Serum or plasma protein measurement (mass/volume) 6.0 g/dL 6.4-8.2 Serum or plasma albumin measurement (mass/volume) 3.6 g/dL 3.2-4.5 CALCIUM CORRECTED 9.1 mg/dL 8.5-10.1 Serum or plasma lithium measurement (mol es/volume) - 05/07/18 05:30 BNP level 715.4 pg/mL <100.0 Complete blood count (CBC) with automate d white blood cell (WBC) differential - 11/21/18 11:29 Blood leukocytes automated count (number/volume) 12.5 10*3/uL 4.3-11.0 Blood erythrocytes automated count (number/volume) 4.22 10*6/uL 4.35-5.85 Venous blood hemoglobin measurement (mass/volume) 12.4 g/dL 11.5-16.0 Blood hematocrit (volume fraction) 39 % 35-52 Automated erythrocyte mean corpuscular volume 93 [ foz_us] 80-99 Automated erythrocyte mean corpuscular h emoglobin (mass per erythrocyte) 29 pg 25-34 Automated erythrocyte mean corpuscular h emoglobin concentration measurement (mass/volume) 32 g/dL 32-36 Automated erythrocyte distribution width ratio 12. 2 % 10.0- 14.5 Automated blood platelet count (count/volume) 368 10*3/uL 130-400 Automated blood platelet mean volume measurement 10.3 [foz_us] 7.4-10.4 Automated blood neutrophils/100 leukocytes 92 % 42-75 Automated blood lymphocytes/100 leukocytes 1 % 12-44 Blood monocytes/100 leukocytes 6 % 0-12 Automated blood eosinophils/100 leukocytes 0 % 0-10 Automated blood basophils/100 leukocytes 0 % 0-10 Blood neutrophils automated count (number/volume) 11.5 10*3 1.8-7.8 Blood lymphocytes automated count (number/volume) 0.2 10*3 1.0-4.0 Blood monocytes automated count (number/volume) 0. 8 10*3 0.0-1.0 Automated eosinophil count 0.0 10*3/uL 0 .0-0.3 Automated blood basophil count (count/volume) 0.1 10*3/uL 0.0-0.1 Comprehensive metabolic panel - 11/21/18 11:29 Serum or plasma sodium measurement (moles/volume) 138 mmol/L 135-145 Serum or plasma potassium measurement (moles/volume) 4.2 mmol/L 3.6-5.0 Serum or plasma chloride measurement (moles/volume) 104 mmol/L 98-107 Carbon dioxide 19 mmol/L 21-32 Serum or plasma anion gap determination (moles/volume) 15 mmol/L 5-14 Serum or plasma urea nitrogen measurement (mass/volume ) 27 mg/dL 7-18 Serum or plasma creatinine measurement (mass/volume) 1.15 mg/dL 0.60-1.30 Serum or plasma urea nitrogen/creatinine mass ratio 23 NRG Serum or plasma creatinine measurement w ith calculation of estimated glomerular filtration rate 45 NRG Serum or plasma glucose measurement (mass/volume) 111 mg/dL 70-105 Serum or plasma calcium measurement (mass/volume) 9.7 mg/dL 8.5-10.1 Serum or plasma total bilirubin measurement (mass/volu me) 0.5 mg/dL 0.1-1.0 Serum or plasma alkaline phosphatase sebastian surement (enzymatic activity/volume) 93 U/L 40-136 Serum or plasma aspartate aminotransfera se measurement (enzymatic activity/volume) 16 U/L 5-34 Serum or plasma alanine aminotransferase measurement (enzymatic activity/volume) 25 U/L 0-55 Serum or plasma protein measurement (mass/volume) 6.6 g/dL 6.4-8.2 Serum or plasma albumin measurement (mass/volume) 3.5 g/dL 3.2-4.5 CALCIUM CORRECTED 10.1 mg/dL 8.5-10.1 Serum or plasma C reactive protein measu rement (mass/volume) - 11/21/18 11:29 Serum or plasma C reactive protein measurement (mass/v olume) 5.47 mg/dL 0.00-0.50 Manual absolute plasma cell count - 10/25 11:29 Blood monocytes/100 leukocytes 2 % NRG Manual blood segmented neutrophils/100 leukocytes 95 % NRG Blood band neutrophils/100 leukocytes 0 % NRG Manual blood lymphocytes/100 leukocytes 2 % NRG Manual eosinophils/100 leukocytes in nose 1 % NRG Manual blood basophils/100 leukocytes 0 % NRG Blood erythrocyte morphology finding identification NORMAL NRG Complete urinalysis with reflex to cultu re - 11/22/18 15:00 Urine color determination YELLOW NRG Urine clarity determination CLEAR NR G Urine pH measurement by test strip 5 5-9 Specific gravity of urine by test strip 1.015 1.016-1.022 Urine protein assay by test strip, semi-quantitative 1+ NEGATIVE Urine glucose detection by automated test strip NE GATIVE NEGATIVE Erythrocytes detection in urine sediment by light micr oscopy 1+ NEGATIVE Urine ketones detection by automated test strip NE GATIVE NEGATIVE Urine nitrite detection by test strip NEGATIVE NEGATIVE Urine total bilirubin detection by test strip NEGA TIVE NEGATIVE Urine urobilinogen measurement by automated test strip (mass/volume) NORMAL NORMAL Urine leukocyte esterase detection by dipstick NEG ATIVE NEGATIVE Automated urine sediment erythrocyte cou nt by microscopy (number/high power field) [HPF] NRG Automated urine sediment leukocyte count by microscopy (number/high power field) NONE NRG Bacteria detection in urine sediment by light microsco py TRACE NRG Squamous epithelial cells detection in u rine sediment by light microscopy 0-2 NRG Crystals detection in urine sediment by light microsco py PRESENT NRG Casts detection in urine sediment by light microscopy PRESENT NRG Mucus detection in urine sediment by light microscopy SMALL NRG Complete urinalysis with reflex to culture CULTURE PENDING NRG Amorphous sediment detection in urine sediment by ligh t microscopy RARE ELSIE URATES NRG Granular casts detection in urine sediment by light mi croscopy RARE NRG Bacterial urine culture - 11/22/18 15:00 Bacterial urine culture NG NRG Complete blood count (CBC) with automate d white blood cell (WBC) differential - 11/27/18 09:05 Blood leukocytes automated count (number/volume) 11.7 10*3/uL 4.3-11.0 Blood erythrocytes automated count (number/volume) 4.09 10*6/uL 4.35-5.85 Venous blood hemoglobin measurement (mass/volume) 11.8 g/dL 11.5-16.0 Blood hematocrit (volume fraction) 38 % 35-52 Automated erythrocyte mean corpuscular volume 92 [ foz_us] 80-99 Automated erythrocyte mean corpuscular h emoglobin (mass per erythrocyte) 29 pg 25-34 Automated erythrocyte mean corpuscular h emoglobin concentration measurement (mass/volume) 31 g/dL 32-36 Automated erythrocyte distribution width ratio 12. 8 % 10.0- 14.5 Automated blood platelet count (count/volume) 433 10*3/uL 130-400 Automated blood platelet mean volume measurement 10.2 [foz_us] 7.4-10.4 Automated blood neutrophils/100 leukocytes 87 % 42-75 Automated blood lymphocytes/100 leukocytes 2 % 12-44 Blood monocytes/100 leukocytes 8 % 0-12 Automated blood eosinophils/100 leukocytes 3 % 0-10 Automated blood basophils/100 leukocytes 1 % 0-10 Blood neutrophils automated count (number/volume) 10.1 10*3 1.8-7.8 Blood lymphocytes automated count (number/volume) 0.2 10*3 1.0-4.0 Blood monocytes automated count (number/volume) 1. 0 10*3 0.0-1.0 Automated eosinophil count 0.3 10*3/uL 0 .0-0.3 Automated blood basophil count (count/volume) 0.1 10*3/uL 0.0-0.1 Comprehensive metabolic panel - 11/27/18 09:05 Serum or plasma sodium measurement (moles/volume) 135 mmol/L 135-145 Serum or plasma potassium measurement (moles/volume) 4.6 mmol/L 3.6-5.0 Serum or plasma chloride measurement (moles/volume) 103 mmol/L 98-107 Carbon dioxide 20 mmol/L 21-32 Serum or plasma anion gap determination (moles/volume) 12 mmol/L 5-14 Serum or plasma urea nitrogen measurement (mass/volume ) 27 mg/dL 7-18 Serum or plasma creatinine measurement (mass/volume) 1.10 mg/dL 0.60-1.30 Serum or plasma urea nitrogen/creatinine mass ratio 25 NRG Serum or plasma creatinine measurement w ith calculation of estimated glomerular filtration rate 47 NRG Serum or plasma glucose measurement (mass/volume) 133 mg/dL 70-105 Serum or plasma calcium measurement (mass/volume) 9.5 mg/dL 8.5-10.1 Serum or plasma total bilirubin measurement (mass/volu me) 0.5 mg/dL 0.1-1.0 Serum or plasma alkaline phosphatase sebastian surement (enzymatic activity/volume) 134 U/L 40-136 Serum or plasma aspartate aminotransfera se measurement (enzymatic activity/volume) 26 U/L 5-34 Serum or plasma alanine aminotransferase measurement (enzymatic activity/volume) 52 U/L 0-55 Serum or plasma protein measurement (mass/volume) 7.1 g/dL 6.4-8.2 Serum or plasma albumin measurement (mass/volume) 3.4 g/dL 3.2-4.5 CALCIUM CORRECTED 10.0 mg/dL 8.5-10.1 Manual absolute plasma cell count - 09/10 09:05 Blood monocytes/100 leukocytes 7 % NRG Manual blood segmented neutrophils/100 leukocytes 90 % NRG Blood band neutrophils/100 leukocytes 1 % NRG Manual blood lymphocytes/100 leukocytes 1 % NRG Manual eosinophils/100 leukocytes in nose 1 % NRG Manual blood basophils/100 leukocytes 0 % NRG Blood erythrocyte morphology finding identification NORMAL NRG Serum or plasma troponin i.cardiac measu rement (mass/volume) - 11/28/18 03:40 Serum or plasma troponin i.cardiac measurement (mass/v olume) < ng/mL <0.028 Complete blood count (CBC) with automate d white blood cell (WBC) differential - 11/28/18 10:14 Blood leukocytes automated count (number/volume) 16.7 10*3/uL 4.3-11.0 Blood erythrocytes automated count (number/volume) 3.97 10*6/uL 4.35-5.85 Venous blood hemoglobin measurement (mass/volume) 11.6 g/dL 11.5-16.0 Blood hematocrit (volume fraction) 37 % 35-52 Automated erythrocyte mean corpuscular volume 93 [ foz_us] 80-99 Automated erythrocyte mean corpuscular h emoglobin (mass per erythrocyte) 29 pg 25-34 Automated erythrocyte mean corpuscular h emoglobin concentration measurement (mass/volume) 31 g/dL 32-36 Automated erythrocyte distribution width ratio 12. 7 % 10.0- 14.5 Automated blood platelet count (count/volume) 421 10*3/uL 130-400 Automated blood platelet mean volume measurement 10.1 [foz_us] 7.4-10.4 Automated blood neutrophils/100 leukocytes 90 % 42-75 Automated blood lymphocytes/100 leukocytes 1 % 12-44 Blood monocytes/100 leukocytes 8 % 0-12 Automated blood eosinophils/100 leukocytes 0 % 0-10 Automated blood basophils/100 leukocytes 0 % 0-10 Blood neutrophils automated count (number/volume) 15.1 10*3 1.8-7.8 Blood lymphocytes automated count (number/volume) 0.2 10*3 1.0-4.0 Blood monocytes automated count (number/volume) 1. 3 10*3 0.0-1.0 Automated eosinophil count 0.1 10*3/uL 0 .0-0.3 Automated blood basophil count (count/volume) 0.1 10*3/uL 0.0-0.1 Blood lactic acid measurement (moles/vol ume) - 11/28/18 10:14 Blood lactic acid measurement (moles/volume) 0.81 mmol/L 0.50-2.00 Comprehensive metabolic panel - 11/28/18 10:14 Serum or plasma sodium measurement (moles/volume) 133 mmol/L 135-145 Serum or plasma potassium measurement (moles/volume) 4.7 mmol/L 3.6-5.0 Serum or plasma chloride measurement (moles/volume) 102 mmol/L 98-107 Carbon dioxide 21 mmol/L 21-32 Serum or plasma anion gap determination (moles/volume) 10 mmol/L 5-14 Serum or plasma urea nitrogen measurement (mass/volume ) 30 mg/dL 7-18 Serum or plasma creatinine measurement (mass/volume) 1.08 mg/dL 0.60-1.30 Serum or plasma urea nitrogen/creatinine mass ratio 28 NRG Serum or plasma creatinine measurement w ith calculation of estimated glomerular filtration rate 48 NRG Serum or plasma glucose measurement (mass/volume) 113 mg/dL 70-105 Serum or plasma calcium measurement (mass/volume) 9.6 mg/dL 8.5-10.1 Serum or plasma total bilirubin measurement (mass/volu me) 0.7 mg/dL 0.1-1.0 Serum or plasma alkaline phosphatase sebastian surement (enzymatic activity/volume) 334 U/L 40-136 Serum or plasma aspartate aminotransfera se measurement (enzymatic activity/volume) 191 U/L 5-34 Serum or plasma alanine aminotransferase measurement (enzymatic activity/volume) 288 U/L 0-55 Serum or plasma protein measurement (mass/volume) 6.4 g/dL 6.4-8.2 Serum or plasma albumin measurement (mass/volume) 3.4 g/dL 3.2-4.5 CALCIUM CORRECTED 10.1 mg/dL 8.5-10.1 Serum or plasma lithium measurement (mol es/volume) - 08/06/19 10:14 BNP PT 241.4 pg/mL <100.0 Manual absolute plasma cell count - 10/11 10:14 Blood monocytes/100 leukocytes 1 % NRG Manual blood segmented neutrophils/100 leukocytes 86 % NRG Blood band neutrophils/100 leukocytes 1 % NRG Manual blood lymphocytes/100 leukocytes 1 % NRG Manual eosinophils/100 leukocytes in nose 0 % NRG Manual blood basophils/100 leukocytes 1 % NRG Blood erythrocyte morphology finding identification NORMAL NRG Ammonia - 11/28/18 12:11 Ammonia 16 umol/L 11-32 PT panel in platelet poor plasma by coag ulation assay - 11/28/18 12:11 Prothrombin time (PT) in platelet poor plasma by coagu lation assay 14.8 s 12.2-14.7 INR in platelet poor plasma or blood by coagulation as say 1.1 0.8-1.4 Bacterial blood culture - 11/28/18 15:15 Bacterial blood culture NG NRG Bacterial blood culture - 11/28/18 15:20 Bacterial blood culture NG NRG Bacterial blood culture - 11/28/18 15:25 Bacterial blood culture NG NRG Complete urinalysis with reflex to cultu re - 11/29/18 05:24 Urine color determination YELLOW NRG Urine clarity determination CLEAR NR G Urine pH measurement by test strip 5 5-9 Specific gravity of urine by test strip 1.015 1.016-1.022 Urine protein assay by test strip, semi-quantitative NEGATIVE NEGATIVE Urine glucose detection by automated test strip NE GATIVE NEGATIVE Erythrocytes detection in urine sediment by light micr oscopy NEGATIVE NEGATIVE Urine ketones detection by automated test strip NE GATIVE NEGATIVE Urine nitrite detection by test strip POSITIVE NEGATIVE Urine total bilirubin detection by test strip NEGA TIVE NEGATIVE Urine urobilinogen measurement by automated test strip (mass/volume) NORMAL NORMAL Urine leukocyte esterase detection by dipstick 3+ NEGATIVE Automated urine sediment erythrocyte cou nt by microscopy (number/high power field) RARE NRG Automated urine sediment leukocyte count by microscopy (number/high power field) [HPF] NRG Bacteria detection in urine sediment by light microsco py MODERATE NRG Squamous epithelial cells detection in u rine sediment by light microscopy 0-2 NRG Crystals detection in urine sediment by light microsco py NONE NRG Casts detection in urine sediment by light microscopy NONE NRG Mucus detection in urine sediment by light microscopy NEGATIVE NRG Complete urinalysis with reflex to culture YES NRG Bacterial urine culture - 11/29/18 05:24 Bacterial urine culture NG NRG Complete blood count (CBC) with automate d white blood cell (WBC) differential - 11/29/18 06:42 Blood leukocytes automated count (number/volume) 10.7 10*3/uL 4.3-11.0 Blood erythrocytes automated count (number/volume) 3.61 10*6/uL 4.35-5.85 Venous blood hemoglobin measurement (mass/volume) 12.1 g/dL 11.5-16.0 Blood hematocrit (volume fraction) 34 % 35-52 Automated erythrocyte mean corpuscular volume 94 [ foz_us] 80-99 Automated erythrocyte mean corpuscular h emoglobin (mass per erythrocyte) 34 pg 25-34 Automated erythrocyte mean corpuscular h emoglobin concentration measurement (mass/volume) 36 g/dL 32-36 Automated erythrocyte distribution width ratio 12. 9 % 10.0- 14.5 Automated blood platelet count (count/volume) 250 10*3/uL 130-400 Automated blood platelet mean volume measurement 10.5 [foz_us] 7.4-10.4 Automated blood neutrophils/100 leukocytes 81 % 42-75 Automated blood lymphocytes/100 leukocytes 3 % 12-44 Blood monocytes/100 leukocytes 13 % 0-12 Automated blood eosinophils/100 leukocytes 3 % 0-10 Automated blood basophils/100 leukocytes 1 % 0-10 Blood neutrophils automated count (number/volume) 8.6 10*3 1.8-7.8 Blood lymphocytes automated count (number/volume) 0.3 10*3 1.0-4.0 Blood monocytes automated count (number/volume) 1. 4 10*3 0.0-1.0 Automated eosinophil count 0.4 10*3/uL 0 .0-0.3 Automated blood basophil count (count/volume) 0.1 10*3/uL 0.0-0.1 Comprehensive metabolic panel - 11/29/18 06:42 Serum or plasma sodium measurement (moles/volume) 136 mmol/L 135-145 Serum or plasma potassium measurement (moles/volume) 4.8 mmol/L 3.6-5.0 Serum or plasma chloride measurement (moles/volume) 105 mmol/L 98-107 Carbon dioxide 17 mmol/L 21-32 Serum or plasma anion gap determination (moles/volume) 14 mmol/L 5-14 Serum or plasma urea nitrogen measurement (mass/volume ) 34 mg/dL 7-18 Serum or plasma creatinine measurement (mass/volume) 1.17 mg/dL 0.60-1.30 Serum or plasma urea nitrogen/creatinine mass ratio 29 NRG Serum or plasma creatinine measurement w ith calculation of estimated glomerular filtration rate 44 NRG Serum or plasma glucose measurement (mass/volume) 82 mg/dL 70-105 Serum or plasma calcium measurement (mass/volume) 9.6 mg/dL 8.5-10.1 Serum or plasma total bilirubin measurement (mass/volu me) 0.6 mg/dL 0.1-1.0 Serum or plasma alkaline phosphatase sebastian surement (enzymatic activity/volume) 274 U/L 40-136 Serum or plasma aspartate aminotransfera se measurement (enzymatic activity/volume) 75 U/L 5-34 Serum or plasma alanine aminotransferase measurement (enzymatic activity/volume) 191 U/L 0-55 Serum or plasma protein measurement (mass/volume) 6.5 g/dL 6.4-8.2 Serum or plasma albumin measurement (mass/volume) 3.4 g/dL 3.2-4.5 CALCIUM CORRECTED 10.1 mg/dL 8.5-10.1 Complete blood count (CBC) with automate d white blood cell (WBC) differential - 12/01/18 06:10 Blood leukocytes automated count (number/volume) 8.7 10*3/uL 4.3-11.0 Blood erythrocytes automated count (number/volume) 3.53 10*6/uL 4.35-5.85 Venous blood hemoglobin measurement (mass/volume) 10.2 g/dL 11.5-16.0 Blood hematocrit (volume fraction) 33 % 35-52 Automated erythrocyte mean corpuscular volume 92 [ foz_us] 80-99 Automated erythrocyte mean corpuscular h emoglobin (mass per erythrocyte) 29 pg 25-34 Automated erythrocyte mean corpuscular h emoglobin concentration measurement (mass/volume) 31 g/dL 32-36 Automated erythrocyte distribution width ratio 12. 9 % 10.0- 14.5 Automated blood platelet count (count/volume) 391 10*3/uL 130-400 Automated blood platelet mean volume measurement 9.9 [foz_us] 7.4-10.4 Automated blood neutrophils/100 leukocytes 85 % 42-75 Automated blood lymphocytes/100 leukocytes 3 % 12-44 Blood monocytes/100 leukocytes 9 % 0-12 Automated blood eosinophils/100 leukocytes 3 % 0-10 Automated blood basophils/100 leukocytes 1 % 0-10 Blood neutrophils automated count (number/volume) 7.4 10*3 1.8-7.8 Blood lymphocytes automated count (number/volume) 0.2 10*3 1.0-4.0 Blood monocytes automated count (number/volume) 0. 8 10*3 0.0-1.0 Automated eosinophil count 0.2 10*3/uL 0 .0-0.3 Automated blood basophil count (count/volume) 0.1 10*3/uL 0.0-0.1 Comprehensive metabolic panel - 12/01/18 06:10 Serum or plasma sodium measurement (moles/volume) 135 mmol/L 135-145 Serum or plasma potassium measurement (moles/volume) 5.3 mmol/L 3.6-5.0 Serum or plasma chloride measurement (moles/volume) 106 mmol/L 98-107 Carbon dioxide 20 mmol/L 21-32 Serum or plasma anion gap determination (moles/volume) 9 mmol/L 5-14 Serum or plasma urea nitrogen measurement (mass/volume ) 24 mg/dL 7-18 Serum or plasma creatinine measurement (mass/volume) 0.88 mg/dL 0.60-1.30 Serum or plasma urea nitrogen/creatinine mass ratio 27 NRG Serum or plasma creatinine measurement w ith calculation of estimated glomerular filtration rate > NRG Serum or plasma glucose measurement (mass/volume) 93 mg/dL 70-105 Serum or plasma calcium measurement (mass/volume) 9.2 mg/dL 8.5-10.1 Serum or plasma total bilirubin measurement (mass/volu me) 0.6 mg/dL 0.1-1.0 Serum or plasma alkaline phosphatase sebastian surement (enzymatic activity/volume) 177 U/L 40-136 Serum or plasma aspartate aminotransfera se measurement (enzymatic activity/volume) 31 U/L 5-34 Serum or plasma alanine aminotransferase measurement (enzymatic activity/volume) 95 U/L 0-55 Serum or plasma protein measurement (mass/volume) 5.5 g/dL 6.4-8.2 Serum or plasma albumin measurement (mass/volume) 3.0 g/dL 3.2-4.5 CALCIUM CORRECTED 10.0 mg/dL 8.5-10.1 Automated blood complete blood count (he mogram) panel - 12/04/18 05:10 Blood leukocytes automated count (number/volume) 9.2 10*3/uL 4.3-11.0 Blood erythrocytes automated count (number/volume) 3.44 10*6/uL 4.35-5.85 Venous blood hemoglobin measurement (mass/volume) 9.9 g/dL 11.5-16.0 Blood hematocrit (volume fraction) 32 % 35-52 Automated erythrocyte mean corpuscular volume 93 [ foz_us] 80-99 Automated erythrocyte mean corpuscular h emoglobin (mass per erythrocyte) 29 pg 25-34 Automated erythrocyte mean corpuscular h emoglobin concentration measurement (mass/volume) 31 g/dL 32-36 Automated erythrocyte distribution width ratio 13. 0 % 10.0- 14.5 Automated blood platelet count (count/volume) 379 10*3/uL 130-400 Automated blood platelet mean volume measurement 9.8 [foz_us] 7.4-10.4 Comprehensive metabolic panel - 12/04/18 05:10 Serum or plasma sodium measurement (moles/volume) 134 mmol/L 135-145 Serum or plasma potassium measurement (moles/volume) 5.0 mmol/L 3.6-5.0 Serum or plasma chloride measurement (moles/volume) 104 mmol/L 98-107 Carbon dioxide 19 mmol/L 21-32 Serum or plasma anion gap determination (moles/volume) 11 mmol/L 5-14 Serum or plasma urea nitrogen measurement (mass/volume ) 31 mg/dL 7-18 Serum or plasma creatinine measurement (mass/volume) 1.14 mg/dL 0.60-1.30 Serum or plasma urea nitrogen/creatinine mass ratio 27 NRG Serum or plasma creatinine measurement w ith calculation of estimated glomerular filtration rate 45 NRG Serum or plasma glucose measurement (mass/volume) 106 mg/dL 70-105 Serum or plasma calcium measurement (mass/volume) 8.9 mg/dL 8.5-10.1 Serum or plasma total bilirubin measurement (mass/volu me) 0.3 mg/dL 0.1-1.0 Serum or plasma alkaline phosphatase sebastian surement (enzymatic activity/volume) 135 U/L 40-136 Serum or plasma aspartate aminotransfera se measurement (enzymatic activity/volume) 25 U/L 5-34 Serum or plasma alanine aminotransferase measurement (enzymatic activity/volume) 65 U/L 0-55 Serum or plasma protein measurement (mass/volume) 5.6 g/dL 6.4-8.2 Serum or plasma albumin measurement (mass/volume) 3.0 g/dL 3.2-4.5 CALCIUM CORRECTED 9.7 mg/dL 8.5-10.1 THYROID STIMULATING HORMONE - 12/04/18 0 5:10 THYROID STIMULATING HORMONE 2.48 u[iU]/mL 0.35-4.94 Complete blood count (CBC) with automate d white blood cell (WBC) differential - 12/08/18 06:10 Blood leukocytes automated count (number/volume) 6.0 10*3/uL 4.3-11.0 Blood erythrocytes automated count (number/volume) 3.45 10*6/uL 4.35-5.85 Venous blood hemoglobin measurement (mass/volume) 10.0 g/dL 11.5-16.0 Blood hematocrit (volume fraction) 33 % 35-52 Automated erythrocyte mean corpuscular volume 94 [ foz_us] 80-99 Automated erythrocyte mean corpuscular h emoglobin (mass per erythrocyte) 29 pg 25-34 Automated erythrocyte mean corpuscular h emoglobin concentration measurement (mass/volume) 31 g/dL 32-36 Automated erythrocyte distribution width ratio 13. 4 % 10.0- 14.5 Automated blood platelet count (count/volume) 337 10*3/uL 130-400 Automated blood platelet mean volume measurement 10.1 [foz_us] 7.4-10.4 Automated blood neutrophils/100 leukocytes 68 % 42-75 Automated blood lymphocytes/100 leukocytes 10 % 12-44 Blood monocytes/100 leukocytes 15 % 0-12 Automated blood eosinophils/100 leukocytes 6 % 0-10 Automated blood basophils/100 leukocytes 1 % 0-10 Blood neutrophils automated count (number/volume) 4.0 10*3 1.8-7.8 Blood lymphocytes automated count (number/volume) 0.6 10*3 1.0-4.0 Blood monocytes automated count (number/volume) 0. 9 10*3 0.0-1.0 Automated eosinophil count 0.4 10*3/uL 0 .0-0.3 Automated blood basophil count (count/volume) 0.1 10*3/uL 0.0-0.1 Comprehensive metabolic panel - 12/08/18 06:10 Serum or plasma sodium measurement (moles/volume) 139 mmol/L 135-145 Serum or plasma potassium measurement (moles/volume) 4.6 mmol/L 3.6-5.0 Serum or plasma chloride measurement (moles/volume) 107 mmol/L 98-107 Carbon dioxide 22 mmol/L 21-32 Serum or plasma anion gap determination (moles/volume) 10 mmol/L 5-14 Serum or plasma urea nitrogen measurement (mass/volume ) 27 mg/dL 7-18 Serum or plasma creatinine measurement (mass/volume) 1.07 mg/dL 0.60-1.30 Serum or plasma urea nitrogen/creatinine mass ratio 25 NRG Serum or plasma creatinine measurement w ith calculation of estimated glomerular filtration rate 48 NRG Serum or plasma glucose measurement (mass/volume) 94 mg/dL 70-105 Serum or plasma calcium measurement (mass/volume) 8.5 mg/dL 8.5-10.1 Serum or plasma total bilirubin measurement (mass/volu me) 0.3 mg/dL 0.1-1.0 Serum or plasma alkaline phosphatase sebastian surement (enzymatic activity/volume) 115 U/L 40-136 Serum or plasma aspartate aminotransfera se measurement (enzymatic activity/volume) 14 U/L 5-34 Serum or plasma alanine aminotransferase measurement (enzymatic activity/volume) 34 U/L 0-55 Serum or plasma protein measurement (mass/volume) 5.7 g/dL 6.4-8.2 Serum or plasma albumin measurement (mass/volume) 3.1 g/dL 3.2-4.5 CALCIUM CORRECTED 9.2 mg/dL 8.5-10.1 Complete blood count (CBC) with automate d white blood cell (WBC) differential - 10/09/19 13:08 Blood leukocytes automated count (number/volume) 13.8 10*3/uL 4.3-11.0 Blood erythrocytes automated count (number/volume) 4.78 10*6/uL 4.35-5.85 Venous blood hemoglobin measurement (mass/volume) 14.1 g/dL 11.5-16.0 Blood hematocrit (volume fraction) 44 % 35-52 Automated erythrocyte mean corpuscular volume 92 [ foz_us] 80-99 Automated erythrocyte mean corpuscular h emoglobin (mass per erythrocyte) 30 pg 25-34 Automated erythrocyte mean corpuscular h emoglobin concentration measurement (mass/volume) 32 g/dL 32-36 Automated erythrocyte distribution width ratio 13. 0 % 10.0- 14.5 Automated blood platelet count (count/volume) 222 10*3/uL 130-400 Automated blood platelet mean volume measurement 10.9 [foz_us] 7.4-10.4 Automated blood neutrophils/100 leukocytes 90 % 42-75 Automated blood lymphocytes/100 leukocytes 3 % 12-44 Blood monocytes/100 leukocytes 5 % 0-12 Automated blood eosinophils/100 leukocytes 2 % 0-10 Automated blood basophils/100 leukocytes 0 % 0-10 Blood neutrophils automated count (number/volume) 12.4 10*3 1.8-7.8 Blood lymphocytes automated count (number/volume) 0.4 10*3 1.0-4.0 Blood monocytes automated count (number/volume) 0. 7 10*3 0.0-1.0 Automated eosinophil count 0.3 10*3/uL 0 .0-0.3 Automated blood basophil count (count/volume) 0.1 10*3/uL 0.0-0.1 PT panel in platelet poor plasma by coag ulation assay - 10/09/19 13:08 Prothrombin time (PT) in platelet poor plasma by coagu lation assay 12.6 s 12.2-14.7 INR in platelet poor plasma or blood by coagulation as say 0.9 0.8-1.4 Activated partial thromboplastin time (a PTT) in platelet poor plasma bycoagulation assay - 10/09/19 13:08 Activated partial thromboplastin time (a PTT) in platelet poor plasma bycoagulation assay 27 s 24-35 Comprehensive metabolic panel - 10/09/19 13:08 Serum or plasma sodium measurement (moles/volume) 139 mmol/L 135-145 Serum or plasma potassium measurement (moles/volume) 3.7 mmol/L 3.6-5.0 Serum or plasma chloride measurement (moles/volume) 104 mmol/L 98-107 Carbon dioxide 22 mmol/L 21-32 Serum or plasma anion gap determination (moles/volume) 13 mmol/L 5-14 Serum or plasma urea nitrogen measurement (mass/volume ) 21 mg/dL 7-18 Serum or plasma creatinine measurement (mass/volume) 0.97 mg/dL 0.60-1.30 Serum or plasma urea nitrogen/creatinine mass ratio 22 NRG Serum or plasma creatinine measurement w ith calculation of estimated glomerular filtration rate 54 NRG Serum or plasma glucose measurement (mass/volume) 107 mg/dL 70-105 Serum or plasma calcium measurement (mass/volume) 9.4 mg/dL 8.5-10.1 Serum or plasma total bilirubin measurement (mass/volu me) 0.7 mg/dL 0.1-1.0 Serum or plasma alkaline phosphatase sebastian surement (enzymatic activity/volume) 96 U/L 40-136 Serum or plasma aspartate aminotransfera se measurement (enzymatic activity/volume) 13 U/L 5-34 Serum or plasma alanine aminotransferase measurement (enzymatic activity/volume) 16 U/L 0-55 Serum or plasma protein measurement (mass/volume) 6.8 g/dL 6.4-8.2 Serum or plasma albumin measurement (mass/volume) 4.0 g/dL 3.2-4.5 CALCIUM CORRECTED 9.4 mg/dL 8.5-10.1 Complete urinalysis with reflex to cultu re - 10/09/19 13:08 Urine color determination YELLOW NRG Urine clarity determination CLEAR NR G Urine pH measurement by test strip 7.0 5-9 Specific gravity of urine by test strip 1.020 1.016-1.022 Urine protein assay by test strip, semi-quantitative NEGATIVE NEGATIVE Urine glucose detection by automated test strip NE GATIVE NEGATIVE Erythrocytes detection in urine sediment by light micr oscopy 2+ NEGATIVE Urine ketones detection by automated test strip NE GATIVE NEGATIVE Urine nitrite detection by test strip NEGATIVE NEGATIVE Urine total bilirubin detection by test strip NEGA TIVE NEGATIVE Urine urobilinogen measurement by automated test strip (mass/volume) 0.2 mg/dL < = 1.0 Urine leukocyte esterase detection by dipstick NEG ATIVE NEGATIVE Automated urine sediment erythrocyte cou nt by microscopy (number/high power field) [HPF] NRG Automated urine sediment leukocyte count by microscopy (number/high power field) NONE NRG Bacteria detection in urine sediment by light microsco py NEGATIVE NRG Squamous epithelial cells detection in u rine sediment by light microscopy RARE NRG Crystals detection in urine sediment by light microsco py NONE NRG Casts detection in urine sediment by light microscopy NONE NRG Mucus detection in urine sediment by light microscopy NEGATIVE NRG Complete urinalysis with reflex to culture NO NRG Manual absolute plasma cell count - 09/23 10/12 13:08 Blood monocytes/100 leukocytes 6 % NRG Manual blood segmented neutrophils/100 leukocytes 91 % NRG Blood band neutrophils/100 leukocytes 0 % NRG Manual blood lymphocytes/100 leukocytes 1 % NRG Manual eosinophils/100 leukocytes in nose 2 % NRG Manual blood basophils/100 leukocytes 0 % NRG Blood erythrocyte morphology finding identification NORMAL NRG Encounters ACCT No. Visit Date/Time Discharge Status Pt. Type Provider Facility Loc./Unit Complaint [id number] 04/02/2019 12:34:00 23:59:59 CLS Outpatient JIMI AGUILERA [facility] RAD BILAX PNEUMIA [id number] 03/29/2019 11:51:00 23:59:59 CLS Outpatient KAVITA PHILIP MD [facility] RAD COUGH [id number] 11/22/2018 11:30:00 14:00:00 DIS Inpatient OVIEDO DO, COLLEEN [facility] IRF R CLAVICLE FX; FREQUENT FALLS [id number] 11/20/2018 14:29:00 15:57:00 DIS Outpatient KAVITA PHILIP MD [facility] REHAB GAIT INSTABILITY AND R SHOULDER PAIN [id number] 11/21/2018 14:51:00 11:25:00 DIS Inpatient RIVAS ALBA MD [facility] 4TH RT CLAVICLE FRACTURE;FR EQUENT FALLS;DEBILITY; [id number] 10/10/2018 11:06:00 23:59:59 CLS Outpatient JIMI AGUILERA [facility] RAD RIGHT SHOULDER PAIN [id number] 05/06/2018 11:56:00 15:10:00 DIS Inpatient LESLEE HANCOCK MD [facility] 4TH INFLUENZA B;HYP OXIA [id number] 04/28/2018 14:51:00 019 16:27:00 DIS Outpatient KAVITA PHILIP MD [facility] REHAB URINARY INCONTINENCE [id number] 02/08/2018 11:14:00 018 11:35:00 DIS Emergency PULIDOPHOEBE NEONATAL CRITICAL CARE NURSE [facility] ER SUTURE REMOVAL [id number] 02/01/2018 09:44:00 018 13:00:00 DIS Emergency ANTONY MCCALLUM MD [facility] ER FALL [id number] 04/29/2017 00:20:00 018 23:59:59 CLS Preadmit ARIEL GUERRERO APRN [facility] REHAB LBP; CERVICALGIA [id number] 03/11/2017 14:31:00 018 00:01:00 DIS Outpatient ARIEL GUERRERO APRN [facility] REHAB LBP; CERVICALGI A [id number] 01/17/2017 15:44:00 017 00:01:00 DIS Outpatient ARIEL GUERRERO APRN [facility] REHAB LBP; CERVICALGI A [id number] 12/22/2016 14:57:00 017 23:59:59 CLS Outpatient KAVITA PHILIP MD [facility] RAD PAIN LOW BACK [id number] 10/08/2016 15:46:00 017 13:50:00 DIS Inpatient TREVOR VILLANUEVA, SHANTANU E [facility] IRF DEBILITY [id number] 10/07/2016 18:17:00 017 15:45:00 DIS Inpatient OVIEDO DO, COLLEEN [facility] 4TH FALL,SCULP HEMATOMA,SEV ERE R HIP PAIN AND INABILIT [id number] 03/26/2016 14:29:00 016 15:44:00 DIS Outpatient KAVITA PHILIP MD [facility] REHAB LBP;CERVICALGIA [id number] 01/21/2016 13:24:00 016 17:00:00 DIS Outpatient KAVITA PHILIP MD [facility] REHAB LBP;CERVICALGIA [id number] 02/11/2015 13:19:00 015 15:00:00 DIS Outpatient KAVITA PHILIP MD [facility] WOUNDCARE [id number] 01/21/2015 13:17:00 015 00:01:00 DIS Outpatient KAVITA PHILIP MD [facility] WOUNDCARE [id number] 11/29/2014 09:10:00 015 23:59:59 CLS Outpatient ROBBY REYES MD [facility] RAD LEG ULCER/ PAD [id number] 11/05/2014 13:21:00 13:30:00 DIS Inpatient SHANTANU MURRAY MD [facility] IRF WEAKNESS [id number] 10/31/2014 08:18:00 015 12:00:00 DIS Inpatient KAVITA PHILIP MD [facility] SURGICAL SWB--RT LEG ABSCESS,CHRISTY LULITIS [id number] 10/24/2014 18:39:00 015 08:09:00 DIS Inpatient KAVITA PHILIP MD [facility] SURGICAL RT LEG ABSCESS,CELLULIT IS [id number] 10/21/2014 14:32:00 015 23:59:59 CLS Outpatient KAVITA PHILIP MD [facility] HH POSSIBLE WOUND INFECTIO N [id number] 08/22/2014 16:43:00 015 13:45:00 DIS Inpatient SHANTANU MURRAY MD [facility] IRF DEBILITY [id number] 08/17/2014 19:21:00 015 21:50:00 DIS Emergency JAMES DO, JAJA K [facility] ER FALL [id number] 09/07/2013 07:05:00 014 10:55:00 DIS Outpatient ANGELA DPM, LIAM Q [facility] SDC SOFT TISSUE LESION RIGH T FOOT [id number] 09/05/2013 12:25:00 23:59:59 CLS Outpatient ANGELA DPM, LIAM Q [facility] PREOP SOFT TISSUE LESION RIGH T FOOT [id number] 05/23/2013 08:11:00 12:45:00 [facility] Outpatient ELVIRA BAINS MD [facility] CHANGE IN BOWEL HABIT;B LOOD IN STOOL [id number] 05/16/2013 07:22:00 23:59:59 CLS Outpatient ELVIRA BAINS MD [facility] PREOP CHANGE IN BOWEL HABIT;B LOOD IN STOOL [id number] 10/09/2019 13:34:00 Document Registration [id number] 03/27/2012 11:57:00 Document Registration [id number] 01/21/2012 09:11:00 Document Registration [id number] 11/22/2011 09:52:00 Document Registration [id number] 05/04/2010 10:30:00 Document Registration
--- NOTE | 2019-10-09 15:32 | NUR ---
ANTIBIOTIC OINT APPLIED TO ABRASION ON BACK OF HEAD, 4X4'S AND KERLEX, ICE PACK APPLIED
--- NOTE | 2019-10-09 16:42 | NUR ---
KYLEE VALDES admitted to room 407-1, with an admitting diagnosis of WEAKNESS/ FALLS, on 10/09/19 from THE ED, accompanied by PERSONNEL.KYLEE VALDES introduced to surroundings, call light, bed controls, phone, TV, temperature control, lights, meal times, smoking policy, visitor policy, side rail policy, bathrooms and showers. Patient Rights given to patient in the handbook. KYLEE VALDES verbalizes understanding that [facility] is not responsible for the loss or damage to any personal effects or valuables that are kept in the patients posession during their hospitalization. The following Patient Care Plans were discussed with the PATIENT: Discharge Planning, ACTIVITY GOALS,FLUID THERAPY and WOUND CARE. KLYEE VALDES verbalizes understanding of Interdisciplinary Patient Education.
[2019-10-09 17:10] VITALS: BP 154/84
[2019-10-09] MEDS ORDERED: ONDANSETRON 4 MG/2 ML (SDV) Z0FRAN IVP PRN (17:30)
[2019-10-09] MEDS: NS IV 1000 ML 1,000 ML IV SCH (17:49)
[2019-10-09] MEDS ORDERED: LOPERAMIDE 2 MG (IMODIUM) TABLET PO PRN (18:15)
[2019-10-09] MEDS ORDERED: diphenhydrAMINE 25 MG TAB (BENADRYL) PO PRN (18:15)
[2019-10-09] MEDS ORDERED: BISACODYL 10 MG SUPP (DULCOLAX) PR PRN (18:15)
[2019-10-09] MEDS ORDERED: CALCIUM CARBONATE 500 MG (TUMS) TAB.CHEW PO PRN (18:15)
[2019-10-09] MEDS ORDERED: MELATONIN 3 MG TABLET PO PRN (18:15)
[2019-10-09] MEDS ORDERED: HYDROcodone/APAP 5 MG/325 MG (LORTAB) TAB PO PRN (18:15)
[2019-10-09] MEDS ORDERED: ENOXAPARIN 40 MG/0.4 ML (LOVENOX) SYR SC SCH (18:15)
[2019-10-09] MEDS ORDERED: DOCUSATE SODIUM 100 MG (COLACE) CAP PO PRN (18:15)
[2019-10-09] MEDS ORDERED: MTP25TSR PO (18:38)
[2019-10-09] MEDS ORDERED: FURO-125 PO (18:38)
[2019-10-09] MEDS ORDERED: SPIR25TA5 PO (18:45)
[2019-10-09 20:06] VITALS: BP 144/77
[2019-10-09] MEDS: SENNA W/DOCUSATE (SENOKOT S) TABLET PO SCH (20:54)
[2019-10-09] MEDS: SACUBITRIL/VALSARTAN 24/26 MG (ENTRESTO) TABLET PO SCH (20:55)
[2019-10-09] MEDS: ACETAMINOPHEN 500 MG TAB (TYLENOL) PO PRN (20:56)
[2019-10-09] MEDS ORDERED: AMITRIPTYLINE 25 MG (ELAVIL) TAB PO SCH (21:00)
--- NOTE | 2019-10-09 21:03 | Consultation - Surgery ---
History of Present Illness History of Present Illness Patient Consulted On(benjamín/time) 10/09/19 17:08 Date Seen by Provider: Oct 09, 2019 Time Seen by Provider: 17:08 History of Present Illness Consult requested by Dr. Lott for fall. Patient is an 89 year old female who fell in her driveway. She states she did not have LOC. She states she got a little dizzy and knew she was going to fall and remembers falling and hitting her head. She states overall her arms are too weak to allow her to get up at anytime. She states she has chronic pain and hurts all over. Nothing makes better, and nothing really makes worse. She had pain in the back of the head where she struck it. She states it was bleeding but believes the bandage has made it better. She had ct head and neck, chest x ray an pelvis x ray with ct spine with no acute traumatic injury except a hematoma, posterior head. Allergies and Home Medications Allergies Coded Allergies: atenolol (Verified Allergy, Unknown, 05/05/18) codeine (Verified Adverse Reaction, Mild, NAUSEA, 05/05/18) HEADACHE diltiazem (Verified Adverse Reaction, Mild, DOESN'T WANT, 05/05/18) indomethacin (Verified Adverse Reaction, Mild, DOESN'T WANT, 05/05/18) propranolol (Verified Adverse Reaction, Mild, DOESN'T WANT, 05/05/18) morphine (Verified Adverse Reaction, Unknown, 05/05/18) reports hearing things-reports she does not want to ever take. haS TOLERATED HYDROCODONE Uncoded Allergies: NITROPATCH (Adverse Reaction, Mild, DOESN'T WANT, 03/29/07) Home Medications Amitriptyline HCl 25 Mg Tablet, 25 MG PO HS, (Reported) Aspirin 81 Mg Tab.chew, 81 MG PO DAILY, (Reported) Cyanocobalamin (Vitamin B-12) 1,000 Mcg Tablet, 1,000 MCG PO DAILY PRN, (Reported) Furosemide 20 Mg Tablet, 20 MG PO DAILY Prescribed by: ZEINA OCHOA on 10/09/191837 Glucosam/Chond/Hyalu/Cf Borate 1 Each Tablet, 1 TAB PO DAILY, (Reported) Lutein 40 Mg Capsule, 40 MG PO DAILY, (Reported) Metoprolol Succinate 25 Mg Tab.er.24h, 25 MG PO BID Prescribed by: ZEINA OCHOA on 10/09/19 1838 Multivitamin 1 Each Tablet, 1 TAB PO DAILY, (Reported) Polyethylene Glycol 3350 17 Gm Powd.pack, 17 GM PO DAILY PRN for CONSTIPATION- 2ND LINE, (Reported) Sacubitril/Valsartan 1 Each Tablet, 1 TAB PO BID, (Reported) Spironolactone 25 Mg Tablet, 12.5 MG PO DAILY Prescribed by: ZEINA OCHOA on 10/09/19 1845 Patient Home Medication List Home Medication List Reviewed: Yes Past Efnijom-Qngpgp-Dvlsll Hx Patient Social History Alcohol Use: Denies Use Recreational Drug Use: No Smoking Status: Never a Smoker 2nd Hand Smoke Exposure: No Recent Foreign Travel: No Contact w/Someone Who Travel: No Recent Infectious Disease Expo: No Recent Hopitalizations: No Immunizations Up To Date Tetanus Booster (TDap): Unknown PED Vaccines UTD: No Date of Pneumonia Vaccine: Feb 07, 2019 Date of Influenza Vaccine: Jan 23, 2018 Seasonal Allergies Seasonal Allergies: No Surgeries History of Surgeries: Yes (AMAURY, APPY, T&A, CATARACTS, STENTS- LEGS & HEART) Surgeries: Adenoidectomy, Appendectomy, Cardiac, Coronary Stent, Gallbladder, Orthopedic, Tonsillectomy, Vascular Surgery Respiratory History of Respiratory Disorde: Yes Respiratory Disorders: Pneumonia Cardiovascular History of Cardiac Disorders: Yes (HEART STENT X1 IN 2013, STENTS X2 IN LEGS) Cardiac Disorders: Coronary Artery Disease, High Cholesterol, Hypertension, Peripheral Vascular Neurological History of Neurological Disord: No Reproductive System Hx Reproductive Disorders: No Sexually Transmitted Disease: No HIV/AIDS: No Female Reproductive Disorders: Denies Genitourinary History of Genitourinary Disor: Yes Genitourinary Disorders: UTI-Chronic Gastrointestinal History of Gastrointestinal Di: Yes Gastrointestinal Disorders: Gastroesophageal Reflux, Chronic Constipation, Diverticulosis, Gall Bladder Disease Musculoskeletal History of Musculoskeletal Dis: Yes (CHRONIC RIGHT SHOULDER, BILATERAL HIP AND BILATERAL KNEE PAIN) Musculoskeletal Disorders: Arthritis, Chronic Back Pain, Fractures Endocrine History of Endocrine Disorders: No HEENT History of HEENT Disorders: Yes HEENT Disorders: Cataract Loss of Vision: Bilateral Hearing Impairment: Hard of Hearing Cancer History of Cancer: No Psychosocial History of Psychiatric Problem: No Integumentary History of Skin or Integumenta: Yes (Shingles) Blood Transfusions History of Blood Disorders: No Reviewed Nursing Assessment Reviewed/Agree w Nursing PMH: Yes Family Medical History Significant Family History: No Pertinent Family Hx Family Medial History: Arthritis 19 MOTHER, Onset:Unknown Diabetes mellitus 19 FATHER, Onset:Unknown Myocardial infarction 19 FATHER, Onset:Unknown 19 MOTHER, Onset:Unknown Review of Systems-General Constitutional: dizziness, weakness EENTM: no symptoms reported Respiratory: No cough, No dyspnea on exertion Cardiovascular: No chest pain, No edema Gastrointestinal: No abdominal pain, No constipation Genitourinary: No decreased output, No dysuria Musculoskeletal: joint pain, muscle weakness Skin: lumps (hematoma), other (abrasion and hematoma of posterior head) Psychiatric/Neurological: No Symptoms Reported; Denies Depressed, Denies Emotional Problems All Other Systems Reviewed Negative Unless Noted: Yes (Negative excepted noted.) Physical Exam-General Problems Physical Exam Vital Signs Vital Signs - First Documented 10/09/19 12:59 Temp 36.7 Pulse 108 Resp 20 B/P (MAP) 124/86 (99) Pulse Ox 97 O2 Delivery Room Air Capillary Refill : Less Than 3 SecondsLess Than 3 Seconds General Appearance: WD/WN, no apparent distress HEENT: PERRL/EOMI, normal ENT inspection (posterior head abraision and hematoma) Neck: non-tender, normal inspection Respiratory: chest non-tender; No no respiratory distress, No no accessory muscle use Cardiovascular: regular rate, rhythm, no edema Gastrointestinal: distended (slightly); No guarding, No rebound, No tenderness Rectal: deferred Back: no CVA tenderness, no vertebral tenderness Extremities: non-tender, normal inspection Neurologic/Psychiatric: sleeping room cleaner II-XII nml as tested, no motor/sensory deficits, alert, normal mood/affect, oriented x 3 Skin: normal color (hematoma as note above) Lymphatic: no adenopathy Data Review Labs Laboratory Tests 10/09/19 13:08: White Blood Count 13.8H, Red Blood Count 4.78, Hemoglobin 14.1, Hematocrit 44, Mean Corpuscular Volume 92, Mean Corpuscular Hemoglobin 30, Mean Corpuscular Hemoglobin Concent 32, Red Cell Distribution Width 13.0, Platelet Count 222, Mean Platelet Volume 10.9H, Neutrophils (%) (Auto) 90H, Lymphocytes (%) (Auto) 3L, Monocytes (%) (Auto) 5, Eosinophils (%) (Auto) 2, Basophils (%) (Auto) 0, Neutrophils # (Auto) 12.4H, Lymphocytes # (Auto) 0.4L, Monocytes # (Auto) 0.7, Eosinophils # (Auto) 0.3, Basophils # (Auto) 0.1, Neutrophils % (Manual) 91, Lymphocytes % (Manual) 1, Monocytes % (Manual) 6, Eosinophils % (Manual) 2, Basophils % (Manual) 0, Band Neutrophils 0, Blood Morphology Comment NORMAL, Prothrombin Time 12.6, INR Comment 0.9, Activated Partial Thromboplast Time 27, Urine Color YELLOW, Urine Clarity CLEAR, Urine pH 7.0, Urine Specific [place] 1.020, Urine Protein NEGATIVE, Urine Glucose (UA) NEGATIVE, Urine Ketones NEGATIVE, Urine Nitrite NEGATIVE, Urine Bilirubin NEGATIVE, Urine Urobilinogen 0.2, Urine Leukocyte Esterase NEGATIVE, Urine RBC (Auto) 2+H, Urine RBC 0-2, Urine WBC NONE, Urine Squamous Epithelial Cells RARE, Urine Crystals NONE, Urine Bacteria NEGATIVE, Urine Casts NONE, Urine Mucus NEGATIVE, Urine Culture Indicated NO, Sodium Level 139, Potassium Level 3.7, Chloride Level 104, Carbon Dioxide Level 22, Anion Gap 13, Blood Urea Nitrogen 21H, Creatinine 0.97, Estimat Glomerular Filtration Rate 54, BUN/Creatinine Ratio 22, Glucose Level 107H, Calcium Level 9.4, Corrected Calcium 9.4, Total Bilirubin 0.7, Aspartate Amino Transf (AST/SGOT) 13, Alanine Aminotransferase (ALT/SGPT) 16, Alkaline Phosphatase 96, Total Protein 6.8, Albumin 4.0 Assessment/Plan Assessment/Plan Assessment/Plan fall hematoma with scalp abrasion closed head injury without loss of consciousness debility, muscle weakness chronic pain No surgical intervention monitor for any changes diet as tolerates pain control pt Clinical Quality Measures DVT/VTE Risk/Contraindication: Risk Factor Score Per Nursin RFS Level Per Nursing on Admit: 3=High ROBERTA STEVE DO Oct 09, 2019 21:03
[2019-10-10] VITALS: BP 143/64
[2019-10-10 04:00] VITALS: BP 187/75
[2019-10-10] MEDS: NS IV 1000 ML 1,000 ML IV SCH (04:45)
[2019-10-10 05:39] LABS: BASOPHILS # (AUTO) 0.1 10^3/uL (0.0-0.1); BASOPHILS % (AUTO) 1 % (0-10); EOSINOPHILS # (AUTO) 0.3 10^3/uL (0.0-0.3); EOSINOPHILS % (AUTO) 6 % (0-10); HEMATOCRIT 37 % (35-52); LYMPHOCYTES # (AUTO) 0.5 X 10^3 (1.0-4.0); LYMPHOCYTES % (AUTO) 9 % (12-44); MEAN CORPUSCULAR HEMOGLOBIN 30 PG (25-34); MEAN CORPUSCULAR HGB CONC 32 G/DL (32-36); MEAN CORPUSCULAR VOLUME 94 FL (80-99); MEAN PLATELET VOLUME 11.2 FL (7.4-10.4); MONOCYTES # (AUTO) 0.8 X 10^3 (0.0-1.0); MONOCYTES % (AUTO) 14 % (0-12); NEUTROPHILS # (AUTO) 3.9 X 10^3 (1.8-7.8); NEUTROPHILS % (AUTO) 71 % (42-75); PLATELET COUNT 200 10^3/uL (130-400); RED CELL DISTRIBUTION WIDTH 12.6 % (10.0-14.5); WHITE BLOOD COUNT 5.5 10^3/uL (4.3-11.0)
[2019-10-10 05:59] LABS: ALBUMIN 3.3 GM/DL (3.2-4.5); CHLORIDE 109 MMOL/L (98-107); POTASSIUM 3.2 MMOL/L (3.6-5.0); SODIUM 140 MMOL/L (135-145)
[2019-10-10 06:00] LABS: CALCIUM 8.3 MG/DL (8.5-10.1)
[2019-10-10 06:01] LABS: GLUCOSE 95 MG/DL (70-105); TOTAL PROTEIN 5.4 GM/DL (6.4-8.2)
[2019-10-10 06:02] LABS: CARBON DIOXIDE 22 MMOL/L (21-32)
[2019-10-10 06:03] LABS: BILIRUBIN,TOTAL 0.5 MG/DL (0.1-1.0)
[2019-10-10 06:05] LABS: ALKALINE PHOSPHATASE 80 U/L (40-136); CREATININE SERUM 0.81 MG/DL (0.60-1.30); GFR ESTIMATED > 60
[2019-10-10 06:06] LABS: BUN/CREATININE RATIO 21
[2019-10-10 06:08] LABS: ALANINE AMINOTRANSFERASE 13 U/L (0-55)
[2019-10-10] MEDS ORDERED: KCL 10 MEQ TAB (MICRO K) PO NR (07:00)
[2019-10-10] MEDS: SENNA W/DOCUSATE (SENOKOT S) TABLET PO SCH (07:45)
[2019-10-10] MEDS: SACUBITRIL/VALSARTAN 24/26 MG (ENTRESTO) TABLET PO SCH (07:45)
--- NOTE | 2019-10-10 08:09 | NUR ---
MED REC WAS ENTERED BY ZEINA KHAN ON 10-09-2019- NO NOTABLE CHANGES NEED TO BE MADE SO I WILL LEAVE THE MED REC IS. OTC: ASPIRIN 81 VIT B12 MOVE FREE JOINT L[employer]IRAL[employer]
[2019-10-10 09:00] VITALS: BP 132/76
--- NOTE | 2019-10-10 10:53 | NUR ---
CM/SS visited with patient for discharge planning. Plan: The patient will discharge to inpatient rehab. The patient was very pleasant and willing to talk. She states that she fell at home in her garage (cement floor) after she picked up her dinner from the mail box. The patient lives alone and was not wearing a life alert/cell phone. She had to crawl to the end of her driveway in 90 degree weather for approximately 2 hours before her neighbor found her. She reports that she does not have any family in the area to check in on her. CM/SS asked the patient if she owns a life alert button. She reports that she had one but it broke. She already ordered a new one and should be delivered by the time she is discharged home. The patient has neighbors that she talks to; however, they are the same age as her and would not be able to help get her up. The other neighbors are young but she has not met them yet. Home Health: The patient is not currently on services; however, she reports that she has used [facility] in the past. Home: The patient lives in a multi level home but reports she only uses the first floor. She states her bathroom in handicap modified with pull bars by the toilet and shower. She has a raised toilet seat and a shower chair. Equipment: The patient reports that she has two different walkers at home. One with a chair and table that she uses to get food and go to the bathroom the other is in her garage if she were to need it. She states they are not from a DME but her son ordered them off line. Food: The patient reports that she receives food from [employer] ([phone]) through [facility]. CM/SS will inform them that patient is in the hospital and will call when she gets back. The patient gets groceries by delivery from [employer]. Addendum: 10/10/19 at 1126 by JEREL CAMARA ARTHUR/MYRNA contacted [facility]. They verbalized understanding that patient will call when she is back home.
--- NOTE | 2019-10-10 11:21 | NUR ---
IRF Evaluation Order received to evaluate patient for the ARU. Chart review complete and findings discussed with Dr. Lott - patient accepted. Met with patient to discuss details related to rehabilitation program. Patient is familiar with program as she has been on the unit before. She is agreeable to required therapy regimen and admission. Thank you for this referral.
[2019-10-10 11:56] VITALS: BP 165/78
--- NOTE | 2019-10-10 11:59 | History & Physical ---
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 Since I last saw her she went on a cruise with her son and ended up being admitted to the [facility] with CHF. That was managed properly and sent home and she continues to live at home alone. Apparently she suffered a fall and was found down at home for about two hours in the yard. I did go ahead and admit her with gentle IV fluids and at this time it is ready to get stronger and prevent falls with the help of inpatient rehab services and ultimately go home to live independently. Trauma surgery did evaluate her and found to be just soft tissue injury and no fractures and I appreciate Dr. Escalante's evaluation of that. Source: patient Exam Limitations: no limitations Date Seen 10/10/19 Time Seen by a Provider: 10:00 Attending Physician Tashia Lott DO PCP Venkatesh Dobbins MD Referring Physician Date of Admission Oct 09, 2019 at 16:00 Home Medications & Allergies Home Medications Reviewed patient Home Medication Reconciliation performed by pharmacy medication reconciliations visitor services technician and/or nursing. Patients Allergies have been reviewed. Allergies Allergies Coded Allergies atenolol (Verified Allergy, Unknown, 05/05/18) codeine (Verified Adverse Reaction, Mild, NAUSEA, 05/05/18) HEADACHE diltiazem (Verified Adverse Reaction, Mild, DOESN'T WANT, 05/05/18) indomethacin (Verified Adverse Reaction, Mild, DOESN'T WANT, 05/05/18) propranolol (Verified Adverse Reaction, Mild, DOESN'T WANT, 05/05/18) morphine (Verified Adverse Reaction, Unknown, 05/05/18) reports hearing things-reports she does not want to ever take. haS TOLERATED HYDROCODONE Uncoded Allergies NITROPATCH ( Adverse Reaction, Mild, DOESN'T WANT, 03/29/07) Past Cmxqbsj-Hesuwu-Sctgml Hx Past Med/Social Hx: Reviewed Nursing Past Med/Soc Hx, Reviewed and Corrections made Patient Social History Marrital Status: single Employed/Student: retired Alcohol Use: Denies Use Recreational Drug Use: No Smoking Status: Never a Smoker 2nd Hand Smoke Exposure: No Recent Foreign Travel: No Contact w/other who traveled: No Recent Hopitalizations: No Recent Infectious Disease Expo: No Immunizations Up To Date Tetanus Booster (TDap): Unknown Pediatric: No Date of Pneumonia Vaccine: Feb 07, 2019 Date of Influenza Vaccine: Jan 23, 2018 Seasonal Allergies Seasonal Allergies: No Past Medical History Surgeries: Adenoidectomy, Appendectomy, Cardiac, Coronary Stent, Gallbladder, Orthopedic, Tonsillectomy, Vascular Surgery Currently Using CPAP: No Currently Using BIPAP: No Cardiac: Coronary Artery Disease, High Cholesterol, Hypertension, Peripheral Vascular Reproductive: No Sexually Transmitted Disease: No HIV/AIDS: No Female Reproductive Disorders: Denies Genitourinary: UTI-Chronic Gastrointestinal: Gastroesophageal Reflux, Chronic Constipation, Div erticulosis, Gall Bladder Disease Musculoskeletal: Arthritis, Chronic Back Pain, Fractures HEENT: Cataract Loss of Vision: Bilateral Hearing Impairment: Hard of Hearing History of Blood Disorders: No Family History Arthritis 19 MOTHER, Onset:Unknown Diabetes mellitus 19 FATHER, Onset:Unknown Myocardial infarction 19 FATHER, Onset:Unknown 19 MOTHER, Onset:Unknown No Pertinent Family Hx Review of Systems Constitutional: see HPI Physical Exam Physical Exam Vital Signs Vital Signs - First Documented 10/09/19 12:59 Temp 36.7 Pulse 108 Resp 20 B/P (MAP) 124/86 (99) Pulse Ox 97 O2 Delivery Room Air Capillary Refill : Less Than 3 SecondsLess Than 3 Seconds Height, Weight, BMI Height: 5'7.00" Weight: 144lbs. 9.9oz. 65.238748fs; 20.98 BMI Method:Stated General Appearance: No Apparent Distress, WD/WN Eyes: Bilateral Eye Normal Inspection, Bilateral Eye PERRL HEENT: PERRL/EOMI, TMs Normal, Normal ENT Inspection, Pharynx Normal Neck: Full Range of Motion, Normal Inspection, Non Tender, Supple, Carotid Bruit Respiratory: Chest Non Tender, Lungs Clear, Normal Breath Sounds, No Accessory Muscle Use, No Respiratory Distress Cardiovascular: Regular Rate, Rhythm, No Edema, No Gallop, No JVD, No Murmur, Normal Peripheral Pulses Gastrointestinal: Normal Bowel Sounds, No Organomegaly, No Pulsatile Mass, Non Tender, Soft Back: Normal Inspection, No CVA Tenderness, No Vertebral Tenderness Extremity: Normal Capillary Refill, Normal Inspection, Normal Range of Motion, Non Tender, No Calf Tenderness, No Pedal Edema Neurologic/Psychiatric: Alert, Oriented x3, No Motor/Sensory Deficits, Normal Mood/Affect Skin: Normal Color, Warm/Dry, Ecchymosis Lymphatic: No Adenopathy Results Results/Procedures Labs Laboratory Tests 10/09/19 13:08 10/10/19 05:10 Patient resulted labs reviewed. Assessment/Plan Admission Diagnosis Assessment: Fall Contusions CHF Advanced age Plan: DC IRF Admission Status: Observation Diagnosis/Problems Diagnosis/Problems (1) Scalp hematoma Status: Acute (2) Scalp abrasion Status: Acute Clinical Quality Measures DVT/VTE Risk/Contraindication: Risk Factor Score Per Nursin RFS Level Per Nursing on Admit: 3=High TASHIA LOTT DO Oct 10, 2019 11:59
[2019-10-10] MEDS: ACETAMINOPHEN 500 MG TAB (TYLENOL) PO PRN (12:18)
--- NOTE | 2019-10-10 13:00 | NUR ---
REPORT CALLED TO ALIYA KHAN.
--- NOTE | 2019-10-10 13:10 | NUR ---
DISCHARGED TO REHAB UNIT ROOM 431 PER W/C.
--- NOTE | 2019-10-10 13:30 | Progress Note - Surgery ---
Subjective Date Seen by a Provider: Oct 10, 2019 Time Seen by a Provider: 10:21 Subjective/Events-last exam Patient doing well. Slight headache. Tolerating diet. Feels like having a hard time urinating. Denies n/v fever sweats chills shortness of breath or chest pain. Objective Exam Vital Signs Date Time Temp Pulse Resp B/P (MAP) Pulse Ox O2 Delivery O2 Flow Rate FiO2 10/10/19 11:56 36.6 89 18 165/78 (107) 98 Room Air 10/10/19 09:00 37.0 89 18 132/76 (94) 96 Room Air 10/10/19 08:00 Room Air 10/10/19 04:00 36.2 81 20 187/75 (112) 96 Room Air 10/10/19 00:00 36.6 86 18 143/64 (90) 96 Room Air 10/09/19 20:55 Room Air 10/09/19 20:06 36.8 88 16 144/77 (99) 97 Room Air 10/09/19 17:11 97 Room Air 10/09/19 17:10 36.0 99 20 154/84 99 Room Air 10/09/19 16:28 82 20 171/71 (99) 97 I & O 10/10/19 07:00 Intake Total 3350 ml Balance 3350 ml Capillary Refill : Less Than 3 SecondsLess Than 3 Seconds General Appearance: No Apparent Distress, WD/WN HEENT: PERRL/EOMI, Normal ENT Inspection, Other (posterior head hematoma and bruising posterior head with abraision with brusing down to upper back) Neck: Normal Inspection (bruising) Respiratory: Chest Non Tender, Normal Breath Sounds, No Accessory Muscle Use, No Respiratory Distress Cardiovascular: Regular Rate, Rhythm, No Edema Gastrointestinal: non tender, soft, distended (slightly); No guarding, No rebound, No tenderness Extremity: Non Tender, No Calf Tenderness Neurologic/Psychiatric: Alert, Oriented x3, No Motor/Sensory Deficits, Normal Mood/Affect, marketing outreach coordinator II-XII Norm as Tested (slightly weak) Skin: Normal Color, Warm/Dry (bruising as noted above) Lymphatic: No Adenopathy Results Lab Laboratory Tests 10/10/19 05:10: White Blood Count 5.5, Red Blood Count 3.99L, Hemoglobin 12.0, Hematocrit 37, Mean Corpuscular Volume 94, Mean Corpuscular Hemoglobin 30, Mean Corpuscular Hemoglobin Concent 32, Red Cell Distribution Width 12.6, Platelet Count 200, Cristina n Platelet Volume 11.2H, Neutrophils (%) (Auto) 71, Lymphocytes (%) (Auto) 9L, Monocytes (%) (Auto) 14H, Eosinophils (%) (Auto) 6, Basophils (%) (Auto) 1, Neutrophils # (Auto) 3.9, Lymphocytes # (Auto) 0.5L, Monocytes # (Auto) 0.8, Eosinophils # (Auto) 0.3, Basophils # (Auto) 0.1, Sodium Level 140, Potassium Level 3.2L, Chloride Level 109H, Carbon Dioxide Level 22, Anion Gap 9, Blood Urea Nitrogen 17, Creatinine 0.81, Estimat Glomerular Filtration Rate > 60, BUN/Creatinine Ratio 21, Glucose Level 95, Calcium Level 8.3L, Corrected Calcium 8.9, Total Bilirubin 0.5, Aspartate Amino Transf (AST/SGOT) 11, Alanine Aminotransferase (ALT/SGPT) 13, Alkaline Phosphatase 80, Total Creatine Kinase 114, Total Protein 5.4L, Albumin 3.3 Assessment/Plan Assessment/Plan Assessment/Plan fall hematoma with scalp abrasion closed head injury without loss of consciousness debility, muscle weakness chronic pain No surgical intervention monitor for any changes diet as tolerates pain control question urinary retention will have bladder scanned pt Clinical Quality Measures DVT/VTE Risk/Contraindication: Risk Factor Score Per Nursin RFS Level Per Nursing on Admit: 3=High ROBERTA STEVE DO Oct 10, 2019 13:30
--- NOTE | 2019-10-10 14:12 | NUR ---
RD ASSESSMENT PMHx: CAD; hypercholesterolemia; HTN; chronic UTI; GERD; chronic constipation/diarrhea PT INTERACTION: Pt was awake and pleasant during nutrition assessment. Pt states current appetite is not good, and that she is a "not a big eater." Note avg PO intake 38% x3meal, per chart review. Pt states following a low-Na diet at home, and has no issues with chewing/swallowing food. Pt states no recent issues with nausea or vomiting. Pt states chronic issues with constipation. Note last BM was 10/09, and pt currently on bowel regimen of senna BID, per chart review. Pt states no recent wt changes. Note recent 10# wt loss x10mon, per chart review. ABNORMAL NUTRITION-RELATED LAB VALUES LOW: K 3.4; Ca 8.3; Pro 5.4 HIGH: Est. kcal needs: 7766-5771 kcal | 25-30 kcal/kg Est. Pro needs: 49-61 g Pro | 0.8-1.0 g Pro/kg PES STATEMENT: Inadequate oral intake (NI-2.1) related to loss of appetite | chronic constipation as evidenced by pt interview | avg PO intake 38% x3meal, per chart review. INTERVENTION: Continue with current diet order of Regular diet. Continue with current supplementation order of Ensure Enlive (vary) to meals TID, for increased kcal intake. Provides 350 kcal and 13 g Pro per serving. Encouraged pt to eat when able. Will continue to follow and reassess as pt needs, intake, and status change. MONITOR/EVALUATE: PO Intake; Plan of Care; Hydration Status; Weight Status; Lab Values Lexi Matta, MS, RD, LD
[2019-10-10] MEDS ORDERED: MTP25TSR PO (14:43)
[2019-10-10] MEDS ORDERED: FURO40TA4 PO (14:43)
[2019-10-10] MEDS ORDERED: NEO/POLY/BAC (NEOSPORIN) OINT 15 GM TUBE TOP SCH (21:00)
== END 2019-10-10 13:10 | disposition designated cancer center or children's hospital (05) ==
LOC: EDUNIT# 12:58 → ER 12:59 → 4TH 16:00
PROVIDERS: ADMIT Internal Medicine; ATTEND Internal Medicine
DX: S00.03XA Contusion of scalp, initial encounter (principal); S00.01XA Abrasion of scalp, initial encounter; S09.90XA Unspecified injury of head, initial encounter; S16.1XXA Strain of muscle, fascia and tendon at neck level, initial encounter; S39.012A Strain of muscle, fascia and tendon of lower back, initial encounter; M62.81 Muscle weakness (generalized); G89.29 Other chronic pain; M54.9 Dorsalgia, unspecified; M19.90 Unspecified osteoarthritis, unspecified site; E78.00 Pure hypercholesterolemia, unspecified; I25.10 Atherosclerotic heart disease of native coronary artery without angina pectoris; I11.0 Hypertensive heart disease with heart failure; I50.9 Heart failure, unspecified; N39.0 Urinary tract infection, site not specified; K21.9 Gastro-esophageal reflux disease without esophagitis; R53.81 Other malaise; Z88.5 Allergy status to narcotic agent; Z79.899 Other long term (current) drug therapy; Z88.8 Allergy status to other drugs, medicaments and biological substances; Z79.82 Long term (current) use of aspirin; Z79.891 Long term (current) use of opiate analgesic; Z90.89 Acquired absence of other organs; Z82.61 Family history of arthritis; Z83.3 Family history of diabetes mellitus
CPT/HCPCS: 36415; 70450; 71045; 72125; 72128; 72131; 72170; 80053; 81000; 82550; 85007; 85025; 85027; 85610; 85730; 93041

== ENCOUNTER 2019-10-10 11:50 | Inpatient (IN) | payer MEDICARE ==
[~2019-10-10] VITALS: Ht 170.2 cm; Wt 59.9 kg
[~2019-10-10 11:50] MED LIST changes: +FURO-125 PO; +MULT-567 PO; -MULT1TAB69 PO
[2019-10-10] MEDS ORDERED: FLEET ENEMA ADULT 1 EA BTL PR PRN (12:00)
[2019-10-10] MEDS ORDERED: diphenhydrAMINE 25 MG TAB (BENADRYL) PO PRN (12:00)
[2019-10-10] MEDS ORDERED: LOPERAMIDE 2 MG (IMODIUM) TABLET PO PRN (12:00)
[2019-10-10] MEDS ORDERED: MELATONIN 3 MG TABLET PO PRN (12:00)
[2019-10-10] MEDS ORDERED: ALPRAZolam 0.25 MG (XANAX) TAB PO PRN (12:00)
[2019-10-10] MEDS ORDERED: BISACODYL 10 MG SUPP (DULCOLAX) PR PRN (12:00)
[2019-10-10] MEDS ORDERED: DOCUSATE SODIUM 100 MG (COLACE) CAP PO PRN (12:00)
[2019-10-10] MEDS ORDERED: ONDANSETRON 4 MG (ZOFRAN) ORAL DISSOLVE TAB PO PRN (12:00)
[2019-10-10] MEDS ORDERED: CALCIUM CARBONATE 500 MG (TUMS) TAB.CHEW PO PRN (12:00)
[2019-10-10] MEDS ORDERED: ACETAMINOPHEN 500 MG TAB (TYLENOL) PO PRN (12:00)
[2019-10-10] MEDS ORDERED: LACTULOSE SYRUP 10GM/15ML (ENULOSE) 30ML UDC PO PRN (12:00)
[2019-10-10] MEDS ORDERED: guaiFENesin/CODEINE (ROBITUSSIN AC) 10ML UDC PO PRN (12:00)
--- NOTE | 2019-10-10 12:55 | NUR ---
Kylee Hampton admitted to room 231-1, with an admitting diagnosis of Fall w/injury, on 10/10/19 from via [facility] 4th floor medical via wheelchair, accompanied by staff.KYLEE HAMPTON introduced to surroundings, call light, bed controls, phone, TV, temperature control, lights, meal times, smoking policy, visitor policy, side rail policy, bathrooms and showers. Patient Rights given to patient in the handbook.KYLEE HAMPTON verbalizes understanding that [facility] is not responsible for the loss or damage to any personal effects or valuables that are kept in the patients posession during their hospitalization. KYLEE HAMPTON verbalizes understanding of Interdisciplinary Patient Education. Patient and/or family were informed about the Rapid Response Team and its purpose.
--- NOTE | 2019-10-10 13:39 | Physical Therapy Evaluation ---
PT Evaluation-General Medical Diagnosis Admission Date Medical Diagnosis: fall Onset Date: Oct 09, 2019 Therapy Diagnosis Therapy Diagnosis: impaired mobility, strength, endurance, balance Height/Weight Height (Feet): 5 Height (Inches): 7.00 Weight (Pounds): 144 Weight (Ounces): 9.9 Referral Physician: Tashia Lott DO Reason for Referral: Evaluation/Treatment Medical History Pertinent Medical History: Arthritis, CAD, COPD, Diverticulitis, Fractures, GERD, HTN, ME, Neuropathy Additional Medical History Past Medical History Surgeries: Adenoidectomy, Appendectomy, Cardiac, Coronary Stent, Gallbladder, Orthopedic, Tonsillectomy, Vascular Surgery Currently Using CPAP: No Currently Using BIPAP: No Cardiac: Coronary Artery Disease, High Cholesterol, Hypertension, Peripheral Vascular Reproductive: No Sexually Transmitted Disease: No HIV/AIDS: No Female Reproductive Disorders: Denies Genitourinary: UTI-Chronic Gastrointestinal: Gastroesophageal Reflux, Chronic Constipation, Diverticulosis, Gall Bladder Disease Musculoskeletal: Arthritis, Chronic Back Pain, Fractures HEENT: Cataract Loss of Vision: Bilateral Hearing Impairment: Hard of Hearing Current History CHI Reviewed History: Yes Social History Home: Single Level Current Living Status: Alone Entry Into Home: Stairs With Railing PT Steps Into Home: 3 Prior Prior Level of Function SCALE: Activities may be completed with or without assistive devices. 6-Hxzbtzfzdq-ozkutcm completes the activity by him/herself with no assistance from a helper. 5-Set-up or Clean-up Assistance-helper sets up or cleans up; patient completes activity. [place] assists only prior to or following the activity. 4-Supervision or Touching Assistance-helper provides verbal cues and/or touching/steadying and/or contact guard assistance as patient completes activity. Assistance may be provided throughout the activity or intermittently. 3-Partial/Moderate Assistance-helper does LESS THAN HALF the effort. [place] lifts, holds or supports trunk or limbs, but provides less than half the effort. 2-Substantial/Maximal Assistance-helper does MORE THAN HALF the effort. [place] lifts or holds trunk or limbs and provides more than half the effort. 1-Siemmwmin-lzisur does ALL the effort. Patient does none of the effort to complete the activity. Or, the assistance of 2 or more helpers is required for the patient to complete the activity. If activity was not attempted, code reason: 7-Patient Refused. 9-Not Applicable-not attempted and the patient did not perform the activity before the current illness, exacerbation or injury. 10-Not Attempted due to Environmental Limitations-(lack of equipment, weather restraints, etc.). 88-Not Attempted due to Medical Conditions or Safety Concerns. Bed Mobility: 6 Transfers (B,C,W/C): 6 Gait: 6 Stairs: 6 Indoor Mobility (Ambulation): Independent Stairs: Independent Prior Devices Use: Walker PT Evaluation-Current Subjective Patient in recliner pre tx, agrees to PT, has 2/10 pain on back of head. 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 Patient needs assist with both legs getting in and out of the car transfer machine. Good use of hands on armrests. Occasional retropulsion immediately after standing but once she gets up completely she can balance herself using the walker. Gait Does the Patient Walk?: Yes Mode of Locomotion: Walk Anticipated Mode of Locomotion: Walk Walk 10 feet (QC): 4 Walk 50 ft with 2 Turns(QC): 4 Walk 150 ft (QC): 88 Walking 10ft/uneven surface-QC: 4 Distance: 100'x2 Gait Assistive Device: FWW Comments/Gait Description Patient can ambulate 100' with a rolling walker with CGA (including 50' with at least 2 turns of 90 degrees and 10' over an uneven surface). Patient ambulates slowly but steady. Wheelchair Training Does the Pt Use a Wheelchair?: No Wheel 50 ft with 2 turns (QC): 9 Wheel 150 ft (QC): 9 Stairs #of Steps: 1 1 Step (curb) (QC): 4 4 Steps (QC): 88 12 Steps (QC): 88 Walking Assistive Device: Walker Patient can go up and down 1 step using a rolling walker with CGA. Cues for foot placement. Balance Sitting Static: Normal Sitting Dynamic: Normal Standing Static: Good Standing Dynamic: Good Picking up an Object (QC): 88 Assessment/Needs Patient has impaired mobility, strength, endurance, balance. Patient mostly needs assist with sit to stand. Rehab Potential: Fair PT Short Term Goals Short Term Goals Time Frame: Oct 17, 2019 Roll Left & Right: 6 Sit to lyin Lying to sitting on side of be: 6 Sit to stand: 4 Chair/iva-on-acvhl transfer: 4 Walk 10 feet: 4 Walk 50 feet with two turns: 4 Walk 150 feet: 4 PT Media/Instructional Designer Goals Media/Instructional Designer Goals PT Mcfp Goals Time Frame: Oct 31, 2019 Roll Left & Right (QC): 6 Sit to Lying (QC): 6 Lying-Sitting on Side/Bed(QC): 6 Sit to Stand (QC): 5 Chair/Nwi-hx-Ihehp Xfer(QC): 5 Toilet Transfer (QC): 5 Car Transfer (QC): 5 Does the Patient Walk: Yes Walk 10 feet (QC): 5 Walk 50ft with 2 Turns (QC): 5 Walk 150 ft (QC): 5 Walking 10ft on Uneven Surface: 5 1 Step (curb) (QC): 4 4 Steps (QC): 4 12 Steps (QC): 88 Picking up an Object (QC): 88 Wheel 50 feet with 2 turns (QC: 9 Wheel 150 feet: 9 PT Plan Problem List Problem List: Activity Tolerance, Functional Strength, Safety, Balance, Gait, Transfer Treatment/Plan Treatment Plan: Continue Plan of Care Treatment Plan: Education, Functional Activity [place], Functional Strength, Group Therapy, Gait, Safety, Therapeutic Exercise, Transfers Treatment Duration: Oct 31, 2019 Frequency: At least 5 of 7 days/Wk (IRF) Estimated Hrs Per Day: 1.5 hours per day Patient and/or Family Agrees t: Yes Safety Risks/Education Patient Education: Gait Training, Transfer Techniques, Steps, Correct Positioning, Safety Issues Teaching Recipient: Patient Teaching Methods: Demonstration, Discussion Response to Teaching: Reinforcement Needed Discharge Recommendations Plan Patient will perform bed mobility and transfer training, balance and endurance training, functional strengthening, stair training, gait training, and education, to improve functional mobility and independence at home. Therapy Discharge Recommendati: Home & Family Time/GCodes Time In: 1255 Time Out: 1330 Total Billed Treatment Time: 35 Total Billed Treatment 1 visit ANT 20' FA 15' DIONNE MONTE PT Oct 10, 2019 13:39
--- NOTE | 2019-10-10 14:41 | Physical Therapy Daily Note ---
PT Daily Note-Current Subjective Pt sitting in chair in Therapy Gym after working with PT. Pt agrees to work with COIL WINDER [employer]. Pain Location: Dorsal Location Body Site: Head Pain Description: Ache Mental Status Patient Orientation: Person, Place, Time, Situation Transfers SCALE: Activities may be completed with or without assistive devices. 4-[place]-faxjozn completes the activity by him/herself with no assistance from a helper. 5-Set-up or Clean-up Assistance-helper sets up or cleans up; patient completes activity. [place] assists only prior to or following the activity. 4-Supervision or Touching Assistance-helper provides verbal cues and/or touching/steadying and/or contact guard assistance as patient completes activity. Assistance may be provided throughout the activity or intermittently. 3-Partial/Moderate Assistance-helper does LESS THAN HALF the effort. [place] lifts, holds or supports trunk or limbs, but provides less than half the effort. 2-Substantial/Maximal Assistance-helper does MORE THAN HALF the effort. [place] lifts or holds trunk or limbs and provides more than half the effort. 3-Nwrscsmjx-kenxeq does ALL the effort. Patient does none of the effort to complete the activity. Or, the assistance of 2 or more helpers is required for the patient to complete the activity. If activity was not attempted, code reason: 7-Patient Refused. 9-Not Applicable-not attempted and the patient did not perform the activity before the current illness, exacerbation or injury. 10-Not Attempted due to Environmental Limitations-(lack of equipment, weather restraints, etc.). 88-Not Attempted due to Medical Conditions or Safety Concerns. Sit to Stand (QC): 3 Toilet Transfer (QC): 3 Weight Bearing Full Weight Bearing Full Weight Bearing Gait Training Does the Patient Walk?: Yes Distance: 150' Walk 10 feet (QC): 5 Walk 50 ft with 2 Turns(QC): 5 Walk 150 ft (QC): 5 Gait Persons Needed: 1 Gait Assistive Device: FWW Wheelchair Training Does the Pt Use a Wheelchair?: No Exercises Seated Therapy Exercises: Ankle pumps, Long arc quads, Shoulder Abd, Hip flexion, Kicking activity, Hip abd/add, Glut set Seated Reps: 15 NuStep Minutes: 12 NuStep Workload: 4 Treatments Pt transfers from chair to standing then to NuStep for 12m at 4. Pt takes short RB then Seated Ex before ambulating in hallway. Pt uses restroom at end of Rx. OT then arrives to start OT Rx. Pt has all needs met, call light in hand. Assessment Current Status: Good Progress Pt reports discomfort enough to notice but had been given pain med by Nurse and pain is tolerable at this time. Pain doesn't limit participation. PT Short Term Goals Short Term Goals Time Frame: Oct 17, 2019 Roll Left & Right: 6 Sit to lyin Lying to sitting on side of be: 6 Sit to stand: 4 Chair/izr-rl-akfbu transfer: 4 Walk 10 feet: 4 Walk 50 feet with two turns: 4 Walk 150 feet: 4 PT Snf Goals [facility] Goals PT Snf Goals Time Frame: Oct 31, 2019 Roll Left & Right (QC): 6 Sit to Lying (QC): 6 Lying-Sitting on Side/Bed(QC): 6 Sit to Stand (QC): 5 Chair/Otw-zs-Fgvcu Xfer(QC): 5 Toilet Transfer (QC): 5 Car Transfer (QC): 5 Does the Patient Walk: Yes Walk 10 feet (QC): 5 Walk 50ft with 2 Turns (QC): 5 Walk 150 ft (QC): 5 Walking 10ft on Uneven Surface: 5 1 Step (curb) (QC): 4 4 Steps (QC): 4 12 Steps (QC): 88 Picking up an Object (QC): 88 Wheel 50 feet with 2 turns (QC: 9 Wheel 150 feet: 9 PT Plan Problem List Problem List: Activity Tolerance, Functional Strength, Safety, Transfer Treatment/Plan Treatment Plan: Continue Plan of Care Treatment Plan: Education, Functional Activity [place], Functional Strength, Group Therapy, Gait, Safety, Therapeutic Exercise, Transfers Treatment Duration: Oct 31, 2019 Frequency: At least 5 of 7 days/Wk (IRF) Estimated Hrs Per Day: 1.5 hours per day Patient and/or Family Agrees t: Yes Safety Risks/Education Patient Education: Gait Training, Transfer Techniques, Correct Positioning, Safety Issues Teaching Recipient: Patient Teaching Methods: Discussion Response to Teaching: Verbalize Understanding Time/GCodes Time In: 1330 Time Out: 1425 Total Billed Treatment Time: 55 Total Billed Treatment 1, EX x2 (30m), GT (15m) & FA (15m) IRENE DE LUNA COIL WINDER HAND Oct 10, 2019 14:41
[2019-10-10] MEDS ORDERED: FURO40TA4 PO (14:43)
[2019-10-10] MEDS ORDERED: MTP25TSR PO (14:43)
[2019-10-10 14:44] VITALS: BP 163/75
--- NOTE | 2019-10-10 14:44 | NUR ---
MED REC WAS ENTERED WHEN PT WAS ON 4TH FLOOR BY THE NURSE- WHEN I ARRIVED I SPOKE WITH THE PT AND WENT THRU THE MED REC AND NO CHANGED NEEDED TO BE MADE. WHEN PT WAS ON 4TH THERE WERE NO MED CHANGES/ NEW MEDS STARTED/ DISCONTINUED MEDS- FOR THIS REASON THE MED REC WILL REMAIN THE SAME OTC MEDS: ASPIRIN 81 VIT B12 MOVE FREE GINGER IR[employer]
--- NOTE | 2019-10-10 15:55 | Occupational Therapy Eval ---
OT Evaluation-General/PLF Medical Diagnosis Admission Date Oct 10, 2019 at 12:55 Medical Diagnosis: fall Onset Date: Oct 09, 2019 Therapy Diagnosis Therapy Diagnosis: impaired self care skills Height/Weight Height (Feet): 5 Height (Inches): 7.00 Weight (Pounds): 144 Weight (Ounces): 9.9 Precautions Precautions/Isolations: Fall Prevention, Standard Precautions Referral Physician: Tashia Lott DO Medical History Pertinent Medical History: Arthritis, CAD, COPD, Diverticulitis, Fractures, GERD, HTN, MD, Neuropathy Additional Medical History high cholesterol, PVD, UTI-chronic, chronic back pain, fractures. Current History Pt had fall at home. Social History Home: Single Level Current Living Status: Alone Entry Into Home: Stairs With Railing Steps Into Home: 3 ADL-Prior Level of Function SCALE: Activities may be completed with or without assistive devices. 3-Tzkongabdz-clhjdvt completes the activity by him/herself with no assistance from a helper. 5-Set-up or Clean-up Assistance-helper sets up or cleans up; patient completes activity. [address] assists only prior to or following the activity. 4-Supervision or Touching Assistance-helper provides verbal cues and/or touching/steadying and/or contact guard assistance as patient completes activity. Assistance may be provided throughout the activity or intermittently. 3-Partial/Moderate Assistance-helper does LESS THAN HALF the effort. [address] lift s, holds or supports trunk or limbs, but provides less than half the effort. 2-Substantial/Maximal Assistance-helper does MORE THAN HALF the effort. [address] lifts or holds trunk or limbs and provides more than half the effort. 9-Aevmmjcfo-hlkwsw does ALL the effort. Patient does none of the effort to complete the activity. Or, the assistance of 2 or more helpers is required for the patient to complete the activity. If activity was not attempted, code reason: 7-Patient Refused. 9-Not Applicable-not attempted and the patient did not perform the activity before the current illness, exacerbation or injury. 10-Not Attempted due to Environmental Limitations-(lack of equipment, weather restraints, etc.). 88-Not Attempted due to Medical Conditions or Safety Concerns. ADL PLOF Comments Pt reports being independent with basic self care. Uses walker for mobility. Pt has meal delivery 4 days/wk. Has ferry hand every two weeks. Self Care: Independent DME/Equipment: Bath Chair, Grab Bars, Sock Aid, Tall Toilet Drive Self: Yes OT Current Status Subjective Pt agreeable to therapy. No reports of pain. Mental Status/Objective Patient Orientation: Person, Place, Situation Current Glasses/Contacts: Yes Hearing Aids: No Dentures/Partials: No Upper Extremity ROM Impaired right shoulder secondary to previous fracture Upper Extremity Coordination Fair ADL-Treatment Eating (QC): 5 (Pt able to feed self after set up to open containers) Oral Hygiene (QC): 4 (SBA to brush teeth while standing at sink) Shower/Bathe Self (QC): 7 (Pt declined. States she had a sponge bath already today) Upper Body Dressing (QC): 5 (Pt donned button up shirt with set up and increased time.) Lower Body Dressing (QC): 3 (Pt able to thread bilateral LE into pants. Stood with min assist for pant hike.) On/Off Footwear (QC): 3 (Pt doffed socks with SBA. Donned socks with set up using sock aid, which she normally uses at home. Pt donned left shoe with SBA. Min assist for right shoe) Toileting Hygiene (QC): 3 UE assessment completed while seated in chair. Education provided regarding role of OT and plan of care. Pt states understanding of education and has no questions at this time. Pt sitting in chair with needs met after session. OT Correction Goals Claim Approver Goals Time Frame: Oct 31, 2019 Eating (QC): 6 Oral Hygiene (QC): 6 Toileting Hygiene (QC): 6 Shower/Bathe Self (QC): 6 Upper Body Dressing (QC): 6 Lower Body Dressing (QC): 6 On/Off Footwear (QC): 6 Additional Goals: 1-Demonstrate ADL Tasks, 2-Verbalize Understanding, 3-ImproveStrength/Desean 1=Demonstrate adherence to instructed precautions during ADL tasks. 2=Patient will verbalize/demonstrate understanding of assistive devices/modifications for ADL. 3=Patient will improve strength/tolerance for activity to enable patient to perform ADL's. OT Education/Plan Problem List/Assessment Assessment: Decreased Activ Tolerance, Decreased UE Strength, Dependent Transfers, Impaired Funct Balance, Impaired I ADL's, Impaired Self-Care Skills Discharge Recommendations Plan/Recommendations: Continue POC Treatment Plan/Plan of Care Patient would benefit from OT for education, treatment and training to promote independence in ADL's, mobility, safety and/or upper extremity function for ADL's. Plan of Care: ADL Retraining, Functional Mobility, Group Exercise/Act as Ind, UE Funct Exercise/Act Treatment Duration: Oct 31, 2019 Frequency: At least 5 of 7 days/Wk (IRF) Estimated Hrs Per Day: 1.5 hours per day Rehab Potential: Fair Time/GCodes Start Time: 14:25 Stop Time: 15:40 Total Time Billed (hr/min): 75 Billed Treatment Time 1 visit, EVM(20minutes), ADLx4(55minutes) JOANNA LORD OT Oct 10, 2019 15:55
--- NOTE | 2019-10-10 16:21 | ST Cognitive Linguistic Eval ---
Speech Evaluation-General Medical Diagnosis fall Onset Date: Oct 09, 2019 Therapy Diagnosis Therapy Diagnosis: Cognitive-communication Referral Referring Physician: Dr. Lott Medical History Pertinent Medical History: Arthritis, CAD, COPD, Diverticulitis, Fractures, GERD, HTN, [place], Neuropathy Reviewed History: Yes Social History Current Living Status: Alone Speech PLF-Current Status Prior Level of Function Patient lived in her home alone where she was independent for her daily needs. Subjective Patient was pleasant and cooperative with the cognitive assessment. Language Eval: Auditory Comprehends Simple Yes/No Ques: Functional Indent/Objects Multiple Baker: Functional Ident/Pics in Multiple Baker: Functional Follows 1-Step Commands: Functional Follows Complex Directions: Functional Follows General Conversations: Functional Language Eval: Verbal Language Completes Spontaneous Greeting: Functional Produces Auto, Serial Info: Functional Imitates Simple Words/Phrases: Functional Word Finding: Functional Requests Basic Needs: Functional States Basic Personal Info: Functional Expresses Complex Ideas: Functional Objective Cognitive Domain Attention: WNL Memory: WNL Problem Solving: Functional Executive Functions: WNL Visuospatial Skills: WNL Composite Severity Rating: WNL Clock Drawing Severity Rating: WNL Objective Formal/Standardized Tests [facility] Status ([facility]) Results 27/30, with normal range of function Oral Motor/Speech Production Within Normal Limits Impression Patient is a pleasant 89 y/o female who was admitted to the ARU s/p fall with injury. Patient was given the SLUMS with a score of 27/30 obtained. Patient's score is within the normal range of function and does not require further ST services at this time. Speech Patient Assess Expression of Ideas/Wants: Expression (4) Understanding Verbal Content: Understands (4) Brief Interview-Mental Status: Yes Repetition of Three Words: Three (3) Temporal Orientation: Year: Correct (3) Temporal Orientation: Month: Accurate within 5 days(2) Temporal Orientation: Day: Correct (1) Recall : Wear to say "Sock": Yes, no cue required (2) Recall : Color: Yes, no cue required (2) Recall : Bed: Yes,after cueing (1) Memory/Recall Ability: Current season, That he or she is in a hsp/hsp unit Speech-Plan Patient/Family Goals Patient/Family Goals: Patient plans on returning to her home upon rehab discharge. Treatment Plan Speech Therapy Treatment Plan: Discontinue ST Treatment Duration: Oct 10, 2019 Frequency: 1 time per week Estimated Hrs Per Day: .25 hour per day Rehab Potential: Fair Barriers to Learning: Patient's recent falls Pt/Family Agrees to Plan: Yes Safety Risks/Education Teaching Recipient: Patient Teaching Methods: Discussion Response to Teaching: Verbalize Understanding Education Topics Provided: Safety within her room and communication of wants/needs Time Speech Therapy Time In: 16:00 Speech Therapy Time Out: 16:15 Total Billed Time: 15 Billed Treatment Time 1, AIDANDCOMP KAYLEN Hong 17, 2020 16:21
[2019-10-10] MEDS: ACETAMINOPHEN 325 MG TABLET PO PRN ×2 (17:31→21:42)
[2019-10-10 18:00] VITALS: BP 160/70
[2019-10-10] MEDS ORDERED: polyethylene glycoL POWDER 17 GM (MIRALAX) PACK PO PRN (19:00)
--- NOTE | 2019-10-10 20:12 | PM&R Post Admission Assessment ---
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 Since I last saw her she went on a cruise with her son and ended up being admitted to the [facility] with CHF. That was managed properly and sent home and she continues to live at home alone. Apparently she suffered a fall and was found down at home for about two hours in the yard. I did go ahead and admit her with gentle IV fluids and at this time it is ready to get stronger and prevent falls with the help of inpatient rehab services and ultimately go home to live independently. Trauma surgery did evaluate her and found to be just soft tissue injury and no fractures and I appreciate Dr. Escalante's evaluation of that. Past Eykobyy-Cfabqx-Zowtxh Hx Past Med/Social Hx: Reviewed Nursing Past Med/Soc Hx, Reviewed and Corrections made Patient Social History Marrital Status: single Employed/Student: retired Alcohol Use: Denies Use Recreational Drug Use: No Smoking Status: Never a Smoker 2nd Hand Smoke Exposure: No Physical Abuse Screen: No Sexual Abuse: No Recent Foreign Travel: No Contact w/other who traveled: No Recent Hopitalizations: No Recent Infectious Disease Expo: No Immunizations Up To Date Tetanus Booster (TDap): Unknown Pediatric: No Date of Pneumonia Vaccine: Feb 07, 2019 Date of Influenza Vaccine: Jan 23, 2018 Seasonal Allergies Seasonal Allergies: No Past Medical History Surgeries: Adenoidectomy, Appendectomy, Cardiac, Coronary Stent, Gallbladder, Orthopedic, Tonsillectomy, Vascular Surgery Currently Using CPAP: No Currently Using BIPAP: No Cardiac: Coronary Artery Disease, High Cholesterol, Hypertension, Peripheral Vascular Reproductive: No Sexually Transmitted Disease: No HIV/AIDS: No Female Reproductive Disorders: Denies Genitourinary: UTI-Chronic Gastrointestinal: Gastroesophageal Reflux, Chronic Constipation, Diverticulosis, Gall Bladder Disease Musculoskeletal: Arthritis, Chronic Back Pain, Fractures HEENT: Cataract Loss of Vision: Bilateral Hearing Impairment: Hard of Hearing History of Blood Disorders: No Family History Arthritis 19 MOTHER, Onset:Unknown Diabetes mellitus 19 FATHER, Onset:Unknown Myocardial infarction 19 FATHER, Onset:Unknown 19 MOTHER, Onset:Unknown No Pertinent Family Hx Prior Level of Function Bed Mobility: 6 Transfers: 6 Gait: 6 Stairs: 6 Indoor Mobility (Ambulation): Independent Stairs: Independent Prior Devices Use: Walker Self Care: Independent Drive Self: Yes Current Level of Fuctioning Roll Left to Right: 4 Sit to Lyin Lying to Sitting/Side of Bed: 4 Sit to Stand: 3 Chair/Ssc-dj-Njmrb Xfer: 4 Car Transfer: 3 Does the Patient Walk: Yes Mode of Locomotion: Walk Anticipated Mode of Locomotion: Walk Walk 10 feet: 5 Walk 50 ft with 2 Turns: 5 Walk 150 ft: 5 Walking 10ft on uneven surface: 4 Gait Assistive Device: FWW Does the Pt Use a Wheelchair: No Wheel 50 ft with 2 turns: 9 Wheel 150 ft: 9 #of Steps: 1 1 Step (curb): 4 4 Steps: 88 Walking Assistive Device: Walker 12 Steps: 88 Picking up an Object: 88 Eatin (Pt able to feed self after set up to open containers) Oral Hygiene: 4 (SBA to brush teeth while standing at sink) Shower/Bathe Self: 7 (Pt declined. States she had a sponge bath already today) Upper Body Dressin (Pt donned button up shirt with set up and increased time.) Lower Body Dressin (Pt able to thread bilateral LE into pants. Stood with min assist for pant hike.) On/Off Footwear: 3 (Pt doffed socks with SBA. Donned socks with set up using sock aid, which she normally uses at home. Pt donned left shoe with SBA. Min assist for right shoe) Toileting Hygiene: 3 PM&R Allergy/Meds/Data Review Allergies Coded Allergies: atenolol (Verified Allergy, Unknown, 05/05/18) codeine (Verified Adverse Reaction, Mild, NAUSEA, 05/05/18) HEADACHE diltiazem (Verified Adverse Reaction, Mild, DOESN'T WANT, 05/05/18) indomethacin (Verified Adverse Reaction, Mild, DOESN'T WANT, 05/05/18) propranolol (Verified Adverse Reaction, Mild, DOESN'T WANT, 05/05/18) morphine (Verified Adverse Reaction, Unknown, 05/05/18) reports hearing things-reports she does not want to ever take. haS TOLERATED HYDROCODONE Uncoded Allergies: NITROPATCH (Adverse Reaction, Mild, DOESN'T WANT, 03/29/07) Home Medications Scheduled Amitriptyline HCl (Amitriptyline HCl), 25 MG PO HS, (Reported) Aspirin (Aspirin), 81 MG PO DAILY, (Reported) Cyanocobalamin (Vitamin B-12) (B-12), 1,000 MCG PO DAILY PRN, (Reported) Furosemide (Lasix), 20 MG PO DAILY Furosemide (Furosemide), 40 MG PO DAILY, (Reported) Glucosam/Chond/Hyalu/Cf Borate (Move Free Joint Health Tablet), 1 TAB PO DAILY, (Reported) Lutein (Lutein), 40 MG PO DAILY, (Reported) Metoprolol Succinate (Metoprolol Succinate), 25 MG PO BID, (Reported) Multivitamin (Multivitamins), 1 TAB PO DAILY, (Reported) Sacubitril/Valsartan (Entresto 24 mg-26 mg Tablet), 1 TAB PO BID, (Reported) Spironolactone (Spironolactone), 12.5 MG PO DAILY Scheduled PRN Polyethylene Glycol 3350 (Miralax), 17 GM PO DAILY PRN for CONSTIPATION-2ND LINE, (Reported) Discontinued Medications Diazepam (Diazepam), 1 MG PO HS Discontinued Reason: No Longer Taking Docusate Sodium (Docusate Sodium), 100 MG PO DAILY PRN for CONSTIPATION-1ST LINE, (Reported) Discontinued Reason: No Longer Taking Gabapentin (Gabapentin), 100 MG PO DAILY WITH SUPPER, (Reported) Discontinued Reason: No Longer Taking Hydrocodone Bit/Acetaminophen (Lortab 5 Mg Tablet), 0.5 TAB PO Q8HR PRN for PAIN-MODERATE Discontinued Reason: No Longer Taking Metoprolol Succinate (Metoprolol Succinate), 25 MG PO BID Discontinued Reason: Duplicate Order Ondansetron (Ondansetron Odt), 4 MG PO Q6H PRN for NAUSEA/VOMITING Discontinued Reason: No Longer Taking Sennosides/Docusate Sodium (Senna-Time S Tablet), 2 EA PO BID Discontinued Reason: Duplicate Order Tramadol HCl (Tramadol HCl), 50 MG PO Q6HR PRN for PAIN-MODERATE Discontinued Reason: No Longer Taking Current Medications Current Medications Reviewed Review of Systems Constitutional: see HPI, malaise, weakness EENTM: no symptoms reported Respiratory: no symptoms reported Cardiovascular: no symptoms reported Gastrointestinal: no symptoms reported Genitourinary: decreased output Musculoskeletal: back pain, joint pain Skin: no symptoms reported Psychiatric/Neurological: No Symptoms Reported All Other Systems Reviewed Negative Unless Noted: Yes Physical Exam Physical Exam Vital Signs Vital Signs - First Documented 10/10/19 14:44 Temp 36.8 Pulse 96 Resp 18 B/P (MAP) 163/75 Pulse Ox 96 O2 Delivery Room Air Capillary Refill : Height, Weight, BMI Height: 5'7.00" Weight: 144lbs. 9.9oz. [id number]; 20.98 BMI Method:Stated General Appearance: No Apparent Distress, WD/WN, Chronically ill, Thin Eyes: Bilateral Eye Normal Inspection, Bilateral Eye PERRL HEENT: PERRL/EOMI, Normal ENT Inspection, Pharynx Normal Neck: Full Range of Motion, Normal Inspection, Non Tender, Supple, Carotid Bruit Respiratory: Chest Non Tender, Lungs Clear, Normal Breath Sounds, No Accessory Muscle Use, No Respiratory Distress Cardiovascular: Regular Rate, Rhythm, No Edema, No Gallop, No JVD, No Murmur, Normal Peripheral Pulses Gastrointestinal: Normal Bowel Sounds, No Organomegaly, No Pulsatile Mass, Non Tender, Soft Back: Normal Inspection, No CVA Tenderness, No Vertebral Tenderness Extremity: Normal Capillary Refill, Normal Inspection, Normal Range of Motion, Non Tender, No Calf Tenderness, No Pedal Edema Neurologic/Psychiatric: Alert, Oriented x3, No Motor/Sensory Deficits, Normal Mood/Affect, Abnormal Gait, Motor Weakness (generalized weakness all extremities) Skin: Normal Color, Warm/Dry, Ecchymosis (arms, legs, torso, scalp) Lymphatic: No Adenopathy PM&R Medical Assessment & Plan REHAB/MEDICAL ASSESSMENT AND PLAN: REHAB IMPAIRMENT GROUP: Fall with soft tissue contusions ETIOLOGIC DIAGNOSIS: Fall with soft tissue contusions The comorbidities that impact the patients function and/or functional outcome by: advanced age, lives alone, CHF, lung mass declines management, edema REHAB PLAN: The patient is being admitted to our comprehensive inpatient rehabilitation facility and can tolerate the intensity of service consisting of at least: 180 minutes of therapy a day, 5 out of 7 days a week Rehab treatment will consist of: PT OT will focus on regaining ADL function and ambulation in order to have opportunity to return home to live independently The patient/family has a good understanding of our discharge process and will benefit from an interdisciplinary inpatient rehabilitation program. The patient has potential to make improvement and is in need of at least two of the following multidisciplinary therapies including but not limited to physical, occupational, speech, and prosthetics and orthotics. Additionally the patient will need services from respiratory, nutritional services, wound care, psychology, etc. (Customize this to each patient). Given the patients complex condition and risk of further medical complications, rehabilitation services cannot be safely or effectively provided at a lower level of care such as a [facility] facility. BARRIERS TO DISCHARGE: Lives alone ESTIMATED LOS: 7 days DISPOSITION: Home RELEVANT CHANGES SINCE PREADMISSION SCREENING: I have compared the patients medical and functional status at the time of the preadmission screening and there are: no changes PROGNOSIS: Good REHABILITATION GOALS: 1. PT OT will focus on regaining ADL function and ambulation in order to have opportunity to return home to live independently All the above goals were reviewed with the patient and he/she is in agreement. By signing this document, I acknowledge that I have personally performed a full physical examination on this patient within 24 hours of admission to this inpatient rehabilitation facility and have determined the patient to be able to tolerate the above course of treatment at an intensive level for a reasonable period of time. I will be completing a detailed individualized Plan of Care for this patient by day #4 of the patients stay based upon the Preadmission Screen, the Post-Admission Evaluation, and the therapy evaluations. Admission Dx/Comorbidities: (1) Fall on same level Status: Acute ICD Codes: W18.30XA - Fall on same level, unspecified, initial encounter (2) Congestive heart failure Status: Acute ICD Codes: I50.9 - Heart failure, unspecified (3) B12 deficiency ICD Codes: E53.8 - Deficiency of other specified B group vitamins (4) Recurrent UTI ICD Codes: N39.0 - Urinary tract infection, site not specified (5) Hyperlipemia ICD Codes: E78.5 - Hyperlipidemia, unspecified (6) PVD (peripheral vascular disease) ICD Codes: I73.9 - Peripheral vascular disease, unspecified (7) CAD (coronary artery disease) ICD Codes: I25.10 - Atherosclerotic heart disease of [place] coronary artery without angina pectoris (8) Hypertension Status: Acute ICD Codes: I10 - Essential (primary) hypertension (9) Lung mass ICD Codes: R91.8 - Other nonspecific abnormal finding of lung field (10) Dizziness Status: Acute ICD Codes: R42 - Dizziness and giddiness (11) Scalp hematoma Status: Acute ICD Codes: S00.03XA - Contusion of scalp, initial encounter (12) Scalp abrasion Status: Acute ICD Codes: S00.01XA - Abrasion of scalp, initial encounter (13) Frequent falls Status: Acute ICD Codes: R29.6 - Repeated falls Assessment/Plan Assessment and Plan Assess & Plan/Chief Complaint Assessment: Recent fall with history of multiple falls Soft tissue contusions from fall Previous right clavicle fracture requiring IRF admit 11/2018 Hypertension 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 but does not wish to have work-up or treatment CAD with stents in place PVD with stents in place Lives alone CHF UTI's recurrent in type Elevated LFT's hx Neuropathy Plan: Tramadol for pain but does not effectivel for her so added Hydrocodone Inpatient rehab protocol Ambulation with walker for fall prevention Regain independence with ADLs Right arm sling prn to help with the pain IS Arterial USG studies declined by patient but likely a component for PVD too (1) Fall on same level (2) Congestive heart failure (3) B12 deficiency (4) Recurrent UTI (5) Hyperlipemia (6) PVD (peripheral vascular disease) (7) CAD (coronary artery disease) (8) Coronary arteriosclerosis (9) Clavicle fracture (10) Hypertension (11) Lung mass (12) Peripheral vascular disease COLLEEN OVIEDO DO Oct 10, 2019 20:12
[2019-10-10] MEDS ORDERED: amLODIPine 5 MG (NORVASC) TAB PO ONE (20:15)
[2019-10-10] MEDS ORDERED: amLODIPine 5 MG (NORVASC) TAB ONE (20:19)
[2019-10-10] MEDS: SACUBITRIL/VALSARTAN 24/26 MG (ENTRESTO) TABLET PO SCH (21:21)
[2019-10-10] MEDS: ENOXAPARIN 40 MG/0.4 ML (LOVENOX) SYR SC SCH (21:21)
[2019-10-10] MEDS: AMITRIPTYLINE 25 MG (ELAVIL) TAB PO SCH (21:21)
[2019-10-10] MEDS: SENNA W/DOCUSATE (SENOKOT S) TABLET PO SCH (21:35)
[2019-10-10] MEDS: DOCUSATE SODIUM 100 MG (COLACE) CAP PO SCH (21:35)
[2019-10-10] MEDS: polyethylene glycoL POWDER 17 GM (MIRALAX) PACK PO SCH (21:35)
[2019-10-11] MEDS: ACETAMINOPHEN 325 MG TABLET PO PRN (04:04)
[2019-10-11 05:03] VITALS: BP 143/75
[2019-10-11 05:15] LABS: BASOPHILS # (AUTO) 0.1 10^3/uL (0.0-0.1); BASOPHILS % (AUTO) 1 % (0-10); EOSINOPHILS # (AUTO) 0.6 10^3/uL (0.0-0.3); EOSINOPHILS % (AUTO) 8 % (0-10); HEMATOCRIT 39 % (35-52); HEMOGLOBIN 12.6 G/DL (11.5-16.0); LYMPHOCYTES # (AUTO) 0.5 X 10^3 (1.0-4.0); LYMPHOCYTES % (AUTO) 7 % (12-44); MEAN CORPUSCULAR HEMOGLOBIN 30 PG (25-34); MEAN CORPUSCULAR HGB CONC 32 G/DL (32-36); MEAN CORPUSCULAR VOLUME 93 FL (80-99); MEAN PLATELET VOLUME 11.6 FL (7.4-10.4); MONOCYTES # (AUTO) 0.7 X 10^3 (0.0-1.0); MONOCYTES % (AUTO) 9 % (0-12); NEUTROPHILS # (AUTO) 5.9 X 10^3 (1.8-7.8); NEUTROPHILS % (AUTO) 76 % (42-75); PLATELET COUNT 206 10^3/uL (130-400); RED CELL DISTRIBUTION WIDTH 12.9 % (10.0-14.5); WHITE BLOOD COUNT 7.7 10^3/uL (4.3-11.0)
[2019-10-11 05:35] LABS: ALANINE AMINOTRANSFERASE 17 U/L (0-55); ALBUMIN 3.8 GM/DL (3.2-4.5); ALKALINE PHOSPHATASE 83 U/L (40-136); BILIRUBIN,TOTAL 0.5 MG/DL (0.1-1.0); BUN/CREATININE RATIO 25; CALCIUM 9.2 MG/DL (8.5-10.1); CARBON DIOXIDE 22 MMOL/L (21-32); CHLORIDE 106 MMOL/L (98-107); GFR ESTIMATED > 60; GLUCOSE 95 MG/DL (70-105); POTASSIUM 3.6 MMOL/L (3.6-5.0); SODIUM 140 MMOL/L (135-145); TOTAL PROTEIN 6.4 GM/DL (6.4-8.2)
--- NOTE | 2019-10-11 07:21 | PM&R Progress Note ---
Subjective HPI/CC On Admission Date Seen by Provider: Oct 11, 2019 Time Seen by Provider: 10:30 Subjective/Events-last exam Loose stools are noted a bit We will discontinue the heplock Decreasing urination pain A&D ointment will be restarted over home dose Lortab will be restarted Dr. Marrero is her normal crane engineer, I will have Dr. Cortes see her just in case to make sure she doesn't flip over into CHF Conferred with RN Reviewed therapy notes Checked labs and meds Review of Systems General: Fatigue Pulmonary: Cough Neurological: Weakness Objective Exam Vital Signs Vital Signs Date Time Temp Pulse Resp B/P (MAP) Pulse Ox O2 Delivery O2 Flow Rate FiO2 10/11/19 21:00 Room Air 10/11/19 17:03 36.4 98 18 119/74 (89) 96 Capillary Refill : Less Than 3 Seconds General Appearance: No Apparent Distress, WD/WN, Chronically ill, Thin HEENT: PERRL/EOMI, Normal ENT Inspection, Pharynx Normal Neck: Full Range of Motion, Normal Inspection, Non Tender, Supple, Carotid Bruit Respiratory: Chest Non Tender, Lungs Clear, Normal Breath Sounds, No Accessory Muscle Use, No Respiratory Distress Cardiovascular: Regular Rate, Rhythm, No Edema, No Gallop, No JVD, No Murmur, Normal Peripheral Pulses Gastrointestinal: Normal Bowel Sounds, No Organomegaly, No Pulsatile Mass, Non Tender, Soft Back: Normal Inspection, No CVA Tenderness, No Vertebral Tenderness Extremity: Normal Capillary Refill, Normal Inspection, Normal Range of Motion, Non Tender, No Calf Tenderness, No Pedal Edema Neurologic/Psychiatric: Alert, Oriented x3, No Motor/Sensory Deficits, Normal Mood/Affect, Abnormal Gait, Motor Weakness (generalized weakness all extremities) Skin: Normal Color, Warm/Dry, Ecchymosis (arms, legs, torso, scalp) Lymphatic: No Adenopathy Results/Procedures Lab Patient resulted labs reviewed. FIM Transfers Therapy Code Descriptions/Definitions Functional [place] Measure: 0=Not Assessed/NA 4=Minimal Assistance 1=Total Assistance 5=Supervision or Setup 2=Maximal Assistance 6=Modified [place] 3=Moderate Assistance 7=Complete IndependenceSCALE: Activities may be completed with or without assistive devices. 3-Fctoqkilzm-uohimof completes the activity by him/herself with no assistance from a helper. 5-Set-up or Clean-up Assistance-helper sets up or cleans up; patient completes activity. [place] assists only prior to or following the activity. 4-Supervision or Touching Assistance-helper provides verbal cues and/or touching/steadying and/or contact guard assistance as patient completes activity. Assistance may be provided throughout the activity or intermittently. 3-Partial/Moderate Assistance-helper does LESS THAN HALF the effort. [place] lifts, holds or supports trunk or limbs, but provides less than half the effort. 2-Substantial/Maximal Assistance-helper does MORE THAN HALF the effort. [place] lifts or holds trunk or limbs and provides more than half the effort. 1-Qgjqacczv-klujgj does ALL the effort. Patient does none of the effort to complete the activity. Or, the assistance of 2 or more helpers is required for the patient to complete the activity. If activity was not attempted, code reason: 7-Patient Refused. 9-Not Applicable-not attempted and the patient did not perform the activity before the current illness, exacerbation or injury. 10-Not Attempted due to Environmental Limitations-(lack of equipment, weather restraints, etc.). 88-Not Attempted due to Medical Conditions or Safety Concerns. Roll Left to Right (QC): 4 Sit to Lying (QC): 4 Sit to Stand (QC): 3 Chair/Syn-nd-Veykj Xfer(QC): 4 Car Transfer (QC): 3 Gait Training Does the Patient Walk?: Yes Distance: 150' Walk 10 feet (QC): 5 Walk 50 ft with 2 Turns(QC): 5 Walk 150 ft (QC): 5 Walking 10ft/uneven surface-QC: 4 Gait Persons Needed: 1 Gait Assistive Device: FWW Wheelchair Training Does the Pt Use a Wheelchair?: No Wheel 50 ft with 2 turns (QC): 9 Wheel 150 ft (QC): 9 Stair Training #of Steps: 1 1 Step (curb) (QC): 4 4 Steps (QC): 88 12 Steps (QC): 88 Balance Picking up an Object (QC): 88 ADL-Treatment Eating (QC): 5 (Pt able to feed self after set up to open containers) Oral Hygiene (QC): 4 (SBA to brush teeth while standing at sink) Shower/Bathe Self (QC): 7 (Pt declined. States she had a sponge bath already today) Upper Body Dressing (QC): 5 (Pt donned button up shirt with set up and increased time.) Lower Body Dressing (QC): 3 (Pt able to thread bilateral LE into pants. Stood with min assist for pant hike.) On/Off Footwear (QC): 3 (Pt doffed socks with SBA. Donned socks with set up using sock aid, which she normally uses at home. Pt donned left shoe with SBA. 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 but does not wish to have work-up or treatment CAD with stents in place PVD with stents in place Lives alone CHF UTI's recurrent in type Elevated LFT's hx Neuropathy Plan: Tramadol for pain but does not effective for her so added Hydrocodone Inpatient rehab protocol Ambulation with walker for fall prevention Regain independence with ADLs Right arm sling prn to help with the pain IS Arterial USG studies declined by patient but likely a component for PVD too (1) Fall on same level (2) Congestive heart failure (3) B12 deficiency (4) Recurrent UTI (5) Hyperlipemia (6) PVD (peripheral vascular disease) (7) CAD (coronary artery disease) (8) Coronary arteriosclerosis (9) Clavicle fracture (10) Hypertension (11) Lung mass (12) Peripheral vascular disease (1) Fall on same level Status: Acute (2) Congestive heart failure Status: Acute (3) B12 deficiency (4) Recurrent UTI (5) Hyperlipemia (6) PVD (peripheral vascular disease) (7) CAD (coronary artery disease) (8) Hypertension Status: Acute (9) Lung mass (10) Dizziness Status: Acute (11) Scalp hematoma Status: Acute (12) Scalp abrasion Status: Acute (13) Frequent falls Status: Acute COLLEEN OVIEDO DO Oct 11, 2019 07:21
--- NOTE | 2019-10-11 07:21 | Individualized Plan of Care ---
Individualized Plan of Care Rehab Nursing IPOC Order Admission Date Oct 10, 2019 at 12:55 Current Orders Orders Admission Order(Inpt,Obs,Sdc) (10/10/19 11:53) Vital Signs: Per Unit Policy ( 08,16,00 (10/10/19 11:53) Parag Scott 09,21 (10/10/19 11:53) Sequential Compression Device Q4H (10/10/19 11:53) Bunghole Borer-Inpt Rehab Con (10/10/19 11:53) Rehab Nursing Orders-Ipoc (10/10/19 11:53) Physical Therapy Rehab Orders (10/10/19 11:53) Occupational Therapy Rehab Ord (10/10/19 11:53) Speech Therapy Rehab Orders (10/10/19 11:53) Cbc With Automated Diff (10/11/19 06:00) Comprehensive Metabolic Panel (10/11/19 06:00) General/Regular (10/10/19 Dinner) Intake & Output 06,14,22 (10/10/19 11:53) Precautions (Aru) (10/10/19 11:53) Weekly Weight WEEK (10/10/19 11:53) Rehab-Intensity Of Therapy (10/10/19 11:53) Initiate Admission Nursing Pro .admission (10/10/19 11:53) Acetaminophen Tablet (Tylenol Tablet) (10/10/19 12:00) Alprazolam Tablet (Xanax Tablet) (10/10/19 12:00) Calcium Carbonate Chew Tablet (Antacid C (10/10/19 12:00) Diphenhydramine Tablet (Benadryl Tablet) (10/10/19 12:00) Docusate Sodium Capsule (Colace Capsule) (10/10/19 21:00) Docusate Sodium Capsule (Colace Capsule) (10/10/19 12:00) Bisacodyl Suppository (Dulcolax Supposit (10/10/19 12:00) Lactulose Oral Solution (Enulose Oral So (10/10/19 12:00) Na Phos/Na Biphos Enema (Fleet Enema Hermilo (10/10/19 12:00) Guaifenesin/Codeine Syrup (Robitussin Ac (10/10/19 12:00) Loperamide Tablet (Imodium Tablet) (10/10/19 12:00) Enoxaparin Injection (Lovenox Injection) (10/10/19 19:00) Melatonin Tablet (Melatonin Tablet) (10/10/19 12:00) Polyethylene Glycol Powder Pkt (Miralax (10/10/19 21:00) Ondansetron Oral Dissolve Tab (Zofran (10/10/19 12:00) Senna S Tablet (Senokot S Tablet) (10/10/19 21:00) Initiate Admission Nursing Pro .admission (10/10/19 11:53) Admission Arrival Bed Request (10/10/19 13:38) Patient Visit (10/10/19 ) Speech Sound Lang Comp (10/10/19 ) Patient Visit (10/10/19 ) Gait Training, Ea 15 Min (10/10/19 ) Functional Activities, Ea 15 (10/10/19 ) Exercise Therap, Ea 15 Min (10/10/19 ) Ambulate 08,12,20 (10/10/19 16:59) Sequential Compression Device Q4H (10/10/19 16:59) Dvt/Vte Risk - Notifiy Physici Q4H (10/10/19 16:59) Ensure Enlive (10/11/19 Breakfast) Acetaminophen Tablet/Caplet (Tylenol T (10/10/19 17:30) Amitriptyline Tablet (Elavil Tablet) (10/10/19 21:00) Aspirin Chewable Tablet (Baby Aspirin Ch (10/11/19 09:00) Cyanocobalamin Tablet (Vitamin B-12 Tabl (10/11/19 09:00) Furosemide Tablet (Lasix Tablet) (10/11/19 09:00) Furosemide Tablet (Lasix Tablet) (10/11/19 09:00) Metoprolol Succinate (Xl) Tab (Toprol Xl (10/10/19 21:00) Therapeutic Multivitamin Tab (Vitamins, (10/11/19 09:00) Polyethylene Glycol Powder Pkt (Miralax (10/10/19 19:00) Sacubitril/Valsartan 24/26 Mg (Entresto (10/10/19 21:00) Spironolactone Tablet (Aldactone Tablet) (10/11/19 09:00) (Nf) Glucosam/Chond/Hyalu/Cf Borate (Mov (10/11/19 09:00) (Nf) Lutein (10/11/19 09:00) Amlodipine Tablet (Norvasc Tablet) (10/10/19 20:15) Amlodipine Tablet (Norvasc Tablet) (10/11/19 09:00) Amlodipine Tablet (Norvasc Tablet) (10/10/19 20:19) General/Regular (10/11/19 Breakfast) Hydrocodone/Apap 5/325 Tablet (Lortab 5 (10/11/19 10:45) Patient Visit (10/10/19 ) Pt Eval Moderate Complexity (10/10/19 ) Functional Activities, Ea 15 (10/10/19 ) Metoprolol Succinate (Xl) Tab (Toprol Xl (10/11/19 21:00) Cbc No Diff (10/12/19 05:00) Comprehensive Metabolic Panel (10/12/19 05:00) Magnesium (10/12/19 05:00) Thyroid Stimulating Hormone (10/12/19 05:00) Patient Visit (10/11/19 ) Gait Training, Ea 15 Min (10/11/19 ) Functional Activities, Ea 15 (10/11/19 ) Exercise Therap, Ea 15 Min (10/11/19 ) Rehab Nursing Orders: Ongoing Assess. of Cognitive Status, Ongoing Assess. of Function Status, Bladder Management, Bladder Scan, Bladder Training, Bowel Management, Bowel Training, Disease Management & Educaiton, DVT Prophylaxis, Fall Prevention, Fluid/Electrolyte/Nutrition Mgmt, Infection Prevention, Medication Management & Education, Management of Risks & Complications, Management of Skin Intergrity, Nutrition Management, Pain Management, Patient/Family Support, Safety Management Intensity of Therapy to be met Patient to be seen: Min.3h per day/5 of 7d PT IPOC Problem List: Activity Tolerance, Functional Strength, Safety, Transfer Treatment Plan: Continue Plan of Care Education, Functional Activity [place], Functional Strength, Group Therapy, Gait, Safety, Therapeutic Exercise, Transfers Treatment Duration: Oct 31, 2019 Frequency: At least 5 of 7 days/Wk (IRF) Estimated Hrs Per Day: 1.5 hours per day OT IPOC Problems: Decreased Activ Tolerance, Decreased UE Strength, Dependent Transfer s, Impaired Funct Balance, Impaired I ADL's, Impaired Self-Care Skills OT Treatment, Training and Edu: Yes Plan of Care: ADL Retraining, Functional Mobility, Group Exercise/Act as Ind, UE Funct Exercise/Act Treatment Duration: Oct 31, 2019 Frequency: At least 5 of 7 days/Wk (IRF) Estimated Hrs Per Day: 1.[address] IPOC Speech Therapy Treatment Plan: Discontinue ST Treatment Duration: Oct 10, 2019 Frequency: 1 time per week Estimated Hrs Per Day: .25 hour per day Bunghole Borer/Case Mgmt Bunghole Borer/Case Managemen: Discharge Planning Dietitian/Positive Printer Operator Dietitian/Positive Printer Operator to monitor nutritional status and make changes and/or recommendations as needed and work with speech pathology on dietary upgrades as the occur. Physician IPOC Medical Issues being managed closely and that require the 24 hour availability of a physician: Recent complicated fall with multiple bruises and hematomas in need of close monitoring for additional injuries along with advanced age Medical Issues: Bowel/Bladder Function, DVT Prophylaxis, Falls Precautions, Fluid/Electrolyte/Nutrition Balance, Infection Protection Brief Synthesis of Preadmission Screen, Post-Admission Evaluation, and Therapy Evaluations: PT OT will focus on regaining strength along with fall risk prevention and monitor closely while increasing ADL independence Medical Prognosis: Good Anticipated Length of Stay: 7 days COLLEEN OVIEDO DO Oct 11, 2019 07:21
[2019-10-11 08:00] VITALS: BP 102/55
--- NOTE | 2019-10-11 08:00 | NUR ---
HAS BEEN MILDLY HYPOTENSIVE AND TACHYCARDIC. DR. CHAU WILL BE CONSULTED TO CHECK MEDICATIONS. LORTAB WILL BE ADDED TO REGIMEN SINCE HEAD HURTING THROUGHOUT NIGHT. OT OBTAINED WAFFLE CUSHION SO PATIENT CAN PLACE HEMATOMA AREA OF HEAD IN A CENTER AREA WHERE PRESSURE WON'T BE PLACED ON HEMATOMA. IS NOW ABLE TO LIE IN BED TO SLEEP. STATES URINARY BURNING IS IMPROVED. IS HAVING FRIEND BRING IN HER A/D OINTMENT FROM HOME FOR DRY LEGS. IV IN LEFT AC DC'D SINCE FALLING OUT.
[2019-10-11] MEDS: polyethylene glycoL POWDER 17 GM (MIRALAX) PACK PO SCH ×2 (09:00→22:21)
[2019-10-11] MEDS ORDERED: NON-FORMULARY MEDICATION 1 EA EA (Lutein 40 MG) PO SCH (09:00)
[2019-10-11] MEDS ORDERED: amLODIPine 5 MG (NORVASC) TAB PO SCH (09:00)
[2019-10-11] MEDS ORDERED: NON-FORMULARY MEDICATION 1 EA EA (Glucosam/Chond/Hyalu/Cf Borate (Move Free Joint Health T PO SCH (09:00)
[2019-10-11] MEDS: DOCUSATE SODIUM 100 MG (COLACE) CAP PO SCH ×2 (09:00→22:21)
[2019-10-11] MEDS: SENNA W/DOCUSATE (SENOKOT S) TABLET PO SCH ×2 (09:00→22:21)
--- NOTE | 2019-10-11 09:19 | Occupational Ther Daily Note ---
OT Current Status-Daily Note Subjective Pt seated in recliner stating she did not sleep well the last couple of day and she feels a little bit off from her regular self, possibly due to lack of sleep. ADL-Treatment Therapy Code Descriptions/Definitions Functional [place] Measure: 0=Not Assessed/NA 4=Minimal Assistance 1=Total Assistance 5=Supervision or Setup 2=Maximal Assistance 6=Modified [place] 3=Moderate Assistance 7=Complete IndependenceSCALE: Activities may be completed with or without assistive devices. 4-Qnfiqvtzad-zqqqpat completes the activity by him/herself with no assistance from a helper. 5-Set-up or Clean-up Assistance-helper sets up or cleans up; patient completes activity. [place] assists only prior to or following the activity. 4-Supervision or Touching Assistance-helper provides verbal cues and/or touching/steadying and/or contact guard assistance as patient completes activity. Assistance may be provided throughout the activity or intermittently. 3-Partial/Moderate Assistance-helper does LESS THAN HALF the effort. [place] lifts, holds or supports trunk or limbs, but provides less than half the effort. 2-Substantial/Maximal Assistance-helper does MORE THAN HALF the effort. [place] lifts or holds trunk or limbs and provides more than half the effort. 4-Adwcridjr-umrmuj does ALL the effort. Patient does none of the effort to complete the activity. Or, the assistance of 2 or more helpers is required for the patient to complete the activity. If activity was not attempted, code reason: 7-Patient Refused. 9-Not Applicable-not attempted and the patient did not perform the activity be fore the current illness, exacerbation or injury. 10-Not Attempted due to Environmental Limitations-(lack of equipment, weather restraints, etc.). 88-Not Attempted due to Medical Conditions or Safety Concerns. Oral Hygiene (QC): 4 (SBA standing at sink) Shower/Bathe Self (QC): 3 (Pt required Min A to wash/dry L shoulder, back, and wash her hair. Pt able to wash/dry all other parts with increased time.) Toileting Hygiene (QC): 3 (min A for thoroughness after BM, CGA in stand. ) Toilet Transfer (QC): 4 (CGA on/off BSC over toilet) Pt required increased time with all ADLS Other Treatment Pt agreeable to OT tx with focus on ADLs. Pt seated in recliner, transferring sit to stand wtih CGA then CGA to toilet using FWW. Pt completed toileting with min A for thoroughness, then transferred to the shower chair. Pt doffed hospital gown, socks, and brief with increased time. Pt completed showering, then OT assisted pt with dressing due to time constraint (thus no QC score given for lower/upper body dressing and footwear on this date). Pt requested to brush her teeth standing at sink with SBA, then returned to her recliner. Post OT session, pt seated in recliner, call light in reach and all needs met, PT present for tx. Education OT Patient Education: Correct positioning, Energy conservation, Modified ADL techniques, Progress toward Goal/Update tx plan, Purpose of tx/functional activ ities, Safety issues, Transfer techniques Teaching Recipient: Patient Teaching Methods: Discussion Response to Teaching: Verbalize Understanding OT [facility] Goals Pediatrician Goals Time Frame: Oct 31, 2019 Eating (QC): 6 Oral Hygiene (QC): 6 Toileting Hygiene (QC): 6 Shower/Bathe Self (QC): 6 Upper Body Dressing (QC): 6 Lower Body Dressing (QC): 6 On/Off Footwear (QC): 6 Additional Goals: 1-Demonstrate ADL Tasks, 2-Verbalize Understanding, 3- ImproveStrength/[place] 1=Demonstrate adherence to instructed precautions during ADL tasks. 2=Patient will verbalize/demonstrate understanding of assistive devices/mo difications for ADL. 3=Patient will improve strength/tolerance for activity to enable patient to perform ADL's. OT Education/Plan Problem List/Assessment Assessment: Decreased Activ Tolerance, Decreased UE Strength, Impaired I ADL's, Impaired Self-Care Skills Discharge Recommendations Plan/Recommendations: Continue POC Treatment Plan/Plan of Care Patient would benefit from OT for education, treatment and training to promote independence in ADL's, mobility, safety and/or upper extremity function for ADL's. Plan of Care: ADL Retraining, Functional Mobility, Group Exercise/Act as Ind, UE Funct Exercise/Act Treatment Duration: Oct 31, 2019 Frequency: At least 5 of 7 days/Wk (IRF) Estimated Hrs Per Day: 1.5 hours per day Rehab Potential: Fair Time/GCodes Start Time: 08:00 Stop Time: 09:00 Total Time Billed (hr/min): 60 Billed Treatment Time 1, ADL 4 RENATA TY OT Oct 11, 2019 09:19
[2019-10-11 10:00] VITALS: BP 135/78
[2019-10-11] MEDS: FUROSEMIDE 20 MG (LASIX) TAB PO SCH (10:07)
[2019-10-11] MEDS: ASPIRIN 81 MG CHEW (CHILDREN'S ASA) PO SCH (10:07)
[2019-10-11] MEDS: MULTIVIT W/MINERALS TAB (THERAGRAN M) PO SCH (10:07)
[2019-10-11] MEDS: CYANOCOBALAMIN 1,000 MCG (VITAMIN B-12) TABLET PO SCH (10:07)
[2019-10-11] MEDS: FUROSEMIDE 40 MG (LASIX) TAB PO SCH (10:07)
[2019-10-11] MEDS: SACUBITRIL/VALSARTAN 24/26 MG (ENTRESTO) TABLET PO SCH ×2 (10:07→23:12)
[2019-10-11] MEDS: SPIRONOLACTONE 25 MG (ALDACTONE) TAB PO SCH (10:08)
--- NOTE | 2019-10-11 10:09 | Physical Therapy Daily Note ---
PT Daily Note-Current Subjective Pt sitting in recliner upon arrival. Pt agrees to PT. Pain Numeric Pain Scale: 4 Location: Dorsal Location Body Site: Head Pain Description: Ache Mental Status Patient Orientation: Person, Place, Time, Situation Transfers SCALE: Activities may be completed with or without assistive devices. 3-Vrhrxzbxqs-xwgnrod completes the activity by him/herself with no assistance from a helper. 5-Set-up or Clean-up Assistance-helper sets up or cleans up; patient completes activity. [place] assists only prior to or following the activity. 4-Supervision or Touching Assistance-helper provides verbal cues and/or touching/steadying and/or contact guard assistance as patient completes activity. Assistance may be provided throughout the activity or intermittently. 3-Partial/Moderate Assistance-helper does LESS THAN HALF the effort. [place] lifts, holds or supports trunk or limbs, but provides less than half the effort. 2-Substantial/Maximal Assistance-helper does MORE THAN HALF the effort. [place] lifts or holds trunk or limbs and provides more than half the effort. 6-Odfojsfvq-sjnwiv does ALL the effort. Patient does none of the effort to co mplete the activity. Or, the assistance of 2 or more helpers is required for the patient to complete the activity. If activity was not attempted, code reason: 7-Patient Refused. 9-Not Applicable-not attempted and the patient did not perform the activity before the current illness, exacerbation or injury. 10-Not Attempted due to Environmental Limitations-(lack of equipment, weather restraints, etc.). 88-Not Attempted due to Medical Conditions or Safety Concerns. Sit to Stand (QC): 4 Weight Bearing Full Weight Bearing Full Weight Bearing Gait Training Does the Patient Walk?: Yes Distance: 150' x2 Walk 10 feet (QC): 5 Walk 50 ft with 2 Turns(QC): 5 Walk 150 ft (QC): 5 Gait Persons Needed: 1 Gait Assistive Device: FWW QUALITY CONTROL INSPECTOR HEADING gives VC to stand up w/in FWW. Wheelchair Training Does the Pt Use a Wheelchair?: No Exercises Seated Therapy Exercises: Ankle pumps, Long arc quads, Hip flexion, Kicking activity, Hip abd/add, Glut set Seated Reps: 15 NuStep Minutes: 12 NuStep Workload: 4 Treatments Pt transfers from recliner to standing and uses restroom. Pt ambulates in hallway then uses NuStep for 12m at WL 4. Pt completes Seated EX before ambulating in hallway. Pt returns to room to rest in recliner with all needs met, call light in hand. Assessment Current Status: Good Progress Pt is limited by pain but pain med had already been given. PT Short Term Goals Short Term Goals Time Frame: Oct 17, 2019 Roll Left & Right: 6 Sit to lyin Lying to sitting on side of be: 6 Sit to stand: 4 Chair/kus-wx-toswy transfer: 4 Walk 10 feet: 4 Walk 50 feet with two turns: 4 Walk 150 feet: 4 PT Correction Goals Correction Goals PT Correction Goals Time Frame: Oct 31, 2019 Roll Left & Right (QC): 6 Sit to Lying (QC): 6 Lying-Sitting on Side/Bed(QC): 6 Sit to Stand (QC): 5 Chair/Dmk-ng-Xlqau Xfer(QC): 5 Toilet Transfer (QC): 5 Car Transfer (QC): 5 Does the Patient Walk: Yes Walk 10 feet (QC): 5 Walk 50ft with 2 Turns (QC): 5 Walk 150 ft (QC): 5 Walking 10ft on Uneven Surface: 5 1 Step (curb) (QC): 4 4 Steps (QC): 4 12 Steps (QC): 88 Picking up an Object (QC): 88 Wheel 50 feet with 2 turns (QC: 9 Wheel 150 feet: 9 PT Plan Problem List Problem List: Activity Tolerance, Functional Strength, Safety, Transfer Treatment/Plan Treatment Plan: Continue Plan of Care Treatment Plan: Education, Functional Activity [place], Functional Strength, Group Therapy, Gait, Safety, Therapeutic Exercise, Transfers Treatment Duration: Oct 31, 2019 Frequency: At least 5 of 7 days/Wk (IRF) Estimated Hrs Per Day: 1.5 hours per day Patient and/or Family Agrees t: Yes Safety Risks/Education Patient Education: Gait Training, Transfer Techniques, Correct Positioning, Safety Issues Teaching Recipient: Patient Teaching Methods: Discussion Response to Teaching: Verbalize Understanding Time/GCodes Time In: 900 Time Out: 1000 Total Billed Treatment Time: 60 Total Billed Treatment 1, GT (15m), FA (15m) & EX x2 (30m) IRENE DE LUNA QUALITY CONTROL INSPECTOR HEADING Oct 11, 2019 10:09
--- NOTE | 2019-10-11 12:28 | Consultation-Cardiology ---
HPI-Cardiology Cardiology Consultation: Date of Consultation 10/11/19 Time Seen by a Provider: 12:10 Date of Admission 10-10-2019 Attending Physician Tashia Lott DO Admitting Physician Venkatesh Dobbins MD Consulting Physician Mynor Cortes MD HPI: Chief Complaint: HTN Ms. Hampton is an 89 yr old female admitted to [facility]. She reports she was at home in her garage. She states she turned around, lost her balance and fell. She denies any syncope or near syncope. She states she did not lose consciousness. She then scooted herself to the end of her driveway and waited on the ground for several hours before a neighbor found her. She denies any c/o CP, palpitations, dyspnea or LE swelling. 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 Marrero at [facility] in [place], [place]. She does report generalized joint discomfort and neck pain. Review of Systems-Cardiology Review of Systems Constitutional: No chills, No fever, No malaise Eyes: No vision change Ears/Nose/Throat: No epistaxis, No recent hearing loss Respiratory: As described under HPI Cardiovascular: As described under HPI Gastrointestinal: No constipation, No diarrhea, No nausea, No vomiting Genitourinary: No dysuria, No hematuria Musculoskeletal: As describe under HPI Skin: No rash; other (brusing to back of head, back and ACW) Psychiatric/Neurological: No anxiety, No depression, No focal weakness, No syncope Hematologic: No bleeding abnormalities All Other Systems Reviewed Negative Unless Noted: Yes MNW-Iskccl-Lxndnk Hx Patient Social History Marrital Status: single Employed/Student: retired Alcohol Use: Denies Use Recreational Drug Use: No Smoking Status: Never a Smoker 2nd Hand Smoke Exposure: No Recent Foreign Travel: No Recent Infectious Disease Expo: No Physical Abuse Screen: No Sexual Abuse: No Immunizations Up To Date Tetanus Booster (TDap): Unknown Date of Pneumonia Vaccine: Feb 07, 2019 Date of Influenza Vaccine: Jan 23, 2018 Past Medical History PMH As described under Assessment. Family Medical History Family Medical History: She reports her mother had CAD and COPD. She reports her father had CAD and DM. Family History: Arthritis 19 MOTHER, Onset:Unknown Diabetes mellitus 19 FATHER, Onset:Unknown Myocardial infarction 19 FATHER, Onset:Unknown 19 MOTHER, Onset:Unknown Allergies and Home Medications Allergies Coded Allergies: atenolol (Verified Allergy, Unknown, 05/05/18) codeine (Verified Adverse Reaction, Mild, NAUSEA, 05/05/18) HEADACHE diltiazem (Verified Adverse Reaction, Mild, DOESN'T WANT, 05/05/18) indomethacin (Verified Adverse Reaction, Mild, DOESN'T WANT, 05/05/18) propranolol (Verified Adverse Reaction, Mild, DOESN'T WANT, 05/05/18) morphine (Verified Adverse Reaction, Unknown, 05/05/18) reports hearing things-reports she does not want to ever take. haS TOLERATED HYDROCODONE Uncoded Allergies: NITROPATCH (Adverse Reaction, Mild, DOESN'T WANT, 03/29/07) Home Medications Amitriptyline HCl 25 Mg Tablet, 25 MG PO HS, (Reported) Aspirin 81 Mg Tab.chew, 81 MG PO DAILY, (Reported) Cyanocobalamin (Vitamin B-12) 1,000 Mcg Tablet, 1,000 MCG PO DAILY PRN, (Reporte d) Furosemide 20 Mg Tablet, 20 MG PO DAILY Prescribed by: ZEINA OCHOA on 10/09/19 183 Furosemide 40 Mg Tablet, 40 MG PO DAILY, (Reported) Glucosam/Chond/Hyalu/Cf Borate 1 Each Tablet, 1 TAB PO DAILY, (Reported) Lutein 40 Mg Capsule, 40 MG PO DAILY, (Reported) Metoprolol Succinate 25 Mg Tab.er.24h, 25 MG PO BID, (Reported) Multivitamin 1 Each Tablet, 1 TAB PO DAILY, (Reported) Polyethylene Glycol 3350 17 Gm Powd.pack, 17 GM PO DAILY PRN for CONSTIPATION- 2ND LINE, (Reported) Sacubitril/Valsartan 1 Each Tablet, 1 TAB PO BID, (Reported) Spironolactone 25 Mg Tablet, 12.5 MG PO DAILY Prescribed by: ZEINA OCHOA on 10/09/19 184 Physical Exam-Cardiology Physical Exam Vital Signs/I&O 10/15/19 05:05 Temp 36.2 Pulse 83 Resp 18 B/P (MAP) 152/73 (99) Pulse Ox 98 O2 Delivery Room Air 10/15/19 00:00 Intake Total 1250 ml Balance 1250 ml Capillary Refill : Less Than 3 Seconds Constitutional: AAO x 3, well-developed, well-nourished HEENT: PERRL, hearing is well preserved, oral hygience is good Neck: No carotid bruit; carotid pulses are 2 + bilaterally Respiratory: No accessory muscle use, No respiratory distress; chest expansion is symmetric, chest is bilaterally symmetric, lungs clear to auscultation Cardiovascular: regular rate-rhythm; No JVD; S1 and S2 Gastrointestinal: No tender; soft, round, audible bowel sounds Extremities: no lower extremity edema bilateral Neurologic/Psychiatric: grossly intact Skin: No rash on exposed areas, No ulcerations on exposed areas; other (diffuse ecchymosis to back of head, neck, shoulders and upper back extending around to shoulders and ACW) Data Review Labs Laboratory Tests 10/15/19 05:12: Sodium Level 139, Potassium Level 4.1, Chloride Level 103, Carbon Dioxide Level 27, Anion Gap 9, Blood Urea Nitrogen 33H, Creatinine 0.99, Estimat Glomerular Filtration Rate 53, BUN/Creatinine Ratio 33, Glucose Level 91, Calcium Level 9.0, Magnesium Level 2.2 Radiology NAME: KYLEE HAMPTON MED REC#: [id number] PT STATUS: ADM Lon : 1930 PHYSICIAN: JAJA RAMIREZ DO ADMIT DATE: 10/09/19/ Signed Date of Exam:10/09/19 CHEST 1 VIEW, AP/PA ONLY INDICATION: Fall. TIME OF EXAM: 1:52 PM. COMPARISON: 04/02/2019. FINDINGS: The heart size is normal. There is a rounded mass-like density in the left lung base, more prominent than on the prior exam. There is also an area of parenchymal consolidation in the right base near the costophrenic angle. A calcified granuloma in the left base is seen. The mid and upper lung rodriguez are clear. No effusion is seen. There is no pneumothorax. IMPRESSION: Rounded mass-like density in the left base. A dedicated CT chest would be useful for further evaluation. There is also some probable airspace consolidation in the right base. Dictated by: Dictated on workstation # [id number] Dict: 10/09/19 1403 Trans: 10/09/19 1729 [id number] Interpreted by: LELA TAVARES MD Electronically signed by: LELA TAVARES MD 10/09/19 1729 ECG Impression ECG Initial ECG Rhythm: S.Tach A/P-Cardiology Assessment/Admission Diagnosis Non-syncopal fall Sinus tachycardia H/O CAD- reported history of stent placement in the past (greater than 5 years ago). Follows with Dr. Marrero as outpatient. Chronic systolic/diastolic CHF - clinically compensated Echo done November [address] Diallo showed LVEF 35-40%. Grade 1 diastolic dysfunction. Mild MR and TR. 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 Rounded mass-like density in the left base seen on CT of the chest of 10-09-2019 History of frequent falls at home Discussion and Recomendations Chronic systolic CHF with ICM for which she is on Entresto, diuretic tx and BB - continue current regimen Sinus tachycardia - will stop the Norvasc to allow room to increase BB CAD with h/o stent placement - continue ASA Monitor lab closely Further recs will be based on her hospital course We would like to thank medical services for this consult Clinical Quality Measures DVT/VTE Risk/Contraindication: Risk Factor Score Per Nursin RFS Level Per Nursing on Admit: 4+=Very High AMY LEIGH Oct 11, 2019 12:28
--- NOTE | 2019-10-11 13:00 | NUR ---
DR. CHAU HERE TO SEE PATIENT. EKG DONE. MEDICATIONS CHANGED.
--- NOTE | 2019-10-11 13:45 | Occupational Ther Daily Note ---
OT Current Status-Daily Note Subjective Pt seated EOB eating lunch. Pt reports difficulty sleeping at night due to pressure/pain on her head when laying flat. ADL-Treatment Therapy Code Descriptions/Definitions Functional [place] Measure: 0=Not Assessed/NA 4=Minimal Assistance 1=Total Assistance 5=Supervision or Setup 2=Maximal Assistance 6=Modified [place] 3=Moderate Assistance 7=Complete IndependenceSCALE: Activities may be completed with or without assistive devices. 3-Azmcqwuylh-bagvgtc completes the activity by him/herself with no assistance from a helper. 5-Set-up or Clean-up Assistance-helper sets up or cleans up; patient completes activity. [place] assists only prior to or following the activity. 4-Supervision or Touching Assistance-helper provides verbal cues and/or touching/steadying and/or contact guard assistance as patient completes activi ty. Assistance may be provided throughout the activity or intermittently. 3-Partial/Moderate Assistance-helper does LESS THAN HALF the effort. [place] lifts, holds or supports trunk or limbs, but provides less than half the effort. 2-Substantial/Maximal Assistance-helper does MORE THAN HALF the effort. [place] lifts or holds trunk or limbs and provides more than half the effort. 6-Lychkpjik-mhzwxb does ALL the effort. Patient does none of the effort to complete the activity. Or, the assistance of 2 or more helpers is required for the patient to complete the activity. If activity was not attempted, code reason: 7-Patient Refused. 9-Not Applicable-not attempted and the patient did not perform the activity before the current illness, exacerbation or injury. 10-Not Attempted due to Environmental Limitations-(lack of equipment, weather restraints, etc.). 88-Not Attempted due to Medical Conditions or Safety Concerns. Eating (QC): 6 Toileting Hygiene (QC): 4 (SBA, pt able to manage clothing and hygiene with urination) Toilet Transfer (QC): 4 (SBA on/off BSC over toilet) Other Treatment Pt seated EOB eating lunch. Pt requested to use the restroom. She transferred sit to stand with SBA (bed elevated) and then transferred into the restroom using SBA. Pt completed toileting and then stood at sink to wash her hands before returning to sit EOB. Pt then finished eating her lunch as OT gathered/set up supplies to position pt in bed to comfort in order for her to sleep better at night. After pt finished lunch, pt transferred sit to supine with assistance BLEs into bed. OT provided pt with different positioning options including rolled up towels, rolled up bed sheets and a waffle cushion. OT and pt trialed different options & pt reports liking the waffle cushion the best along with a pillow case rolled up at under her neck for support. Pt feels like this would be a good option at night in order to increase her sleep. OT left other p ositioning options in pt's room in case pt wants to try something else at night. Post OT session, pt laying in bed, call light in reach and all needs met. Education OT Patient Education: Correct positioning, Energy conservation, Modified ADL techniques, Progress toward Goal/Update tx plan, Purpose of tx/functional activities Teaching Recipient: Patient Teaching Methods: Discussion Response to Teaching: Verbalize Understanding OT Booster Assembler Goals Booster Assembler Goals Time Frame: Oct 31, 2019 Eating (QC): 6 Oral Hygiene (QC): 6 Toileting Hygiene (QC): 6 Shower/Bathe Self (QC): 6 Upper Body Dressing (QC): 6 Lower Body Dressing (QC): 6 On/Off Footwear (QC): 6 Additional Goals: 1-Demonstrate ADL Tasks, 2-Verbalize Understanding, 3- ImproveStrength/[place] 1=Demonstrate adherence to instructed precautions during ADL tasks. 2=Patient will verbalize/demonstrate understanding of assistive devices/modifications for ADL. 3=Patient will improve strength/tolerance for activity to enable patient to perform ADL's. OT Education/Plan Problem List/Assessment Assessment: Decreased Activ Tolerance, Decreased UE Strength, Impaired Bed Mobility, Impaired I ADL's, Impaired Self-Care Skills Discharge Recommendations Plan/Recommendations: Continue POC Treatment Plan/Plan of Care Patient would benefit from OT for education, treatment and training to promote independence in ADL's, mobility, safety and/or upper extremity function for ADL's. Plan of Care: ADL Retraining, Functional Mobility, Group Exercise/Act as Ind, UE Funct Exercise/Act Treatment Duration: Oct 31, 2019 Frequency: At least 5 of 7 days/Wk (IRF) Estimated Hrs Per Day: 1.5 hours per day Rehab Potential: Fair Time/GCodes Start Time: 13:00 Stop Time: 13:30 Total Time Billed (hr/min): 30 Billed Treatment Time 1, ADL 2 RENATA TY OT Oct 11, 2019 13:45
--- NOTE | 2019-10-11 14:51 | NUR ---
RD ASSESSMENT PMHx: CAD; hypercholesterolemia; HTN; chronic UTI; GERD; chronic constipation/diarrhea PT INTERACTION: Pt was awake and pleasant during dietary consult for MST score. Pt states current appetite is "so-so" and has been this way for awhile. Note avg PO intake 88% x2meal, per chart review. Pt states no recent issues with nausea, vomiting, and constipation. Pt states some recent issues with diarrhea. Note last BM was 10/10, and pt currently on bowel regimen of colace BID; senna BID; and miralax BID, per chart review. Pt states no recent wt changes. Note recent 10# wt loss x10mon, per chart review. Given PO intake and diet hx, pt does not meet criteria for malnutrition per ASPEN guidelines. ABNORMAL NUTRITION-RELATED LAB VALUES LOW: HIGH: BUN 20 Est. kcal needs: 9646-4416 kcal | 25-30 kcal/kg Est. Pro needs: 49-61 g Pro | 0.8-1.0 g Pro/kg PES STATEMENT: Given current PO intake, no nutrition diagnosis at this time (NO-1.1) INTERVENTION: Continue with current diet order of Regular diet. Discontinue current supplementation order of Ensure Enlive (vary) with meals TID if avg PO intake >75%. Will continue to follow and reassess as pt needs, intake, and status change. MONITOR/EVALUATE: PO Intake; Plan of Care; Hydration Status; Weight Status; Lab Values Lexi Matta, MS, RD, LD
--- NOTE | 2019-10-11 14:57 | Physical Therapy Daily Note ---
PT Daily Note-Current Subjective Pt laying Supine in bed on waffle cushion for comfort of head. Pt agrees to PT. Pain Numeric Pain Scale: 4 Location: Dorsal Location Body Site: Head Pain Description: Ache Mental Status Patient Orientation: Person, Place, Time, Situation Transfers SCALE: Activities may be completed with or without assistive devices. 8-Zzptlagbbd-kwiszlq completes the activity by him/herself with no assistance from a helper. 5-Set-up or Clean-up Assistance-helper sets up or cleans up; patient completes activity. [place] assists only prior to or following the activity. 4-Supervision or Touching Assistance-helper provides verbal cues and/or touc alex/steadying and/or contact guard assistance as patient completes activity. Assistance may be provided throughout the activity or intermittently. 3-Partial/Moderate Assistance-helper does LESS THAN HALF the effort. [place] lifts, holds or supports trunk or limbs, but provides less than half the effort. 2-Substantial/Maximal Assistance-helper does MORE THAN HALF the effort. [place] lifts or holds trunk or limbs and provides more than half the effort. 9-Kphrvrqxn-nodvfw does ALL the effort. Patient does none of the effort to complete the activity. Or, the assistance of 2 or more helpers is required for the patient to complete the activity. If activity was not attempted, code reason: 7-Patient Refused. 9-Not Applicable-not attempted and the patient did not perform the activity before the current illness, exacerbation or injury. 10-Not Attempted due to Environmental Limitations-(lack of equipment, weather restraints, etc.). 88-Not Attempted due to Medical Conditions or Safety Concerns. Lying to Sitting/Side of Bed(Q: 4 Sit to Stand (QC): 4 Weight Bearing Full Weight Bearing Full Weight Bearing Gait Training Does the Patient Walk?: Yes Distance: 30' Walk 10 feet (QC): 5 Gait Persons Needed: 1 Gait Assistive Device: FWW Wheelchair Training Does the Pt Use a Wheelchair?: No Exercises Supine Ex: Ankle pumps, Quad Set, Glut sets, Heel Slides, Straight leg raise, Hip abd/add Supine Reps: 20 Treatments Pt completes Supine Ex in bed with RB as needed. Pt asks to use restroom. Pt then returns to recliner to rest at end of Rx with all needs met, call light in hand. Assessment Current Status: Good Progress Pt moves slowly and needs extended time to complete tasks. PT Short Term Goals Short Term Goals Time Frame: Oct 17, 2019 Roll Left & Right: 6 Sit to lyin Lying to sitting on side of be: 6 Sit to stand: 4 Chair/ekj-dn-udcwo transfer: 4 Walk 10 feet: 4 Walk 50 feet with two turns: 4 Walk 150 feet: 4 PT Group Home Goals Group Home Goals PT Group Home Goals Time Frame: Oct 31, 2019 Roll Left & Right (QC): 6 Sit to Lying (QC): 6 Lying-Sitting on Side/Bed(QC): 6 Sit to Stand (QC): 5 Chair/Baq-oz-Hthrz Xfer(QC): 5 Toilet Transfer (QC): 5 Car Transfer (QC): 5 Does the Patient Walk: Yes Walk 10 feet (QC): 5 Walk 50ft with 2 Turns (QC): 5 Walk 150 ft (QC): 5 Walking 10ft on Uneven Surface: 5 1 Step (curb) (QC): 4 4 Steps (QC): 4 12 Steps (QC): 88 Picking up an Object (QC): 88 Wheel 50 feet with 2 turns (QC: 9 Wheel 150 feet: 9 PT Plan Problem List Problem List: Activity Tolerance, Functional Strength Treatment/Plan Treatment Plan: Continue Plan of Care Treatment Plan: Education, Functional Activity [place], Functional Strength, Group Therapy, Gait, Safety, Therapeutic Exercise, Transfers Treatment Duration: Oct 31, 2019 Frequency: At least 5 of 7 days/Wk (IRF) Estimated Hrs Per Day: 1.5 hours per day Patient and/or Family Agrees t: Yes Safety Risks/Education Patient Education: Gait Training, Transfer Techniques, Correct Positioning, Safety Issues Teaching Recipient: Patient Teaching Methods: Discussion Response to Teaching: Verbalize Understanding Time/GCodes Time In: 1340 Time Out: 1425 Total Billed Treatment Time: 45 Total Billed Treatment 1, FA (15m) & EX x2 (30m) IRENE DE LUNA SHEEP SHEARER Oct 11, 2019 14:57
[2019-10-11 17:03] VITALS: BP 119/74
--- NOTE | 2019-10-11 17:09 | Consultation-Cardiology ---
HPI-Cardiology Cardiology Consultation: Date of Consultation 10/11/19 Time Seen by a Provider: 13:00 Date of Admission Attending Physician Tashia Lott DO Admitting Physician Venkatesh Dobbins MD Consulting Physician ELAYNE CHAU MD, MA, FACP, FACC, FSCAI, CCDS HPI: Chief Complaint: Reason for consultation: cardiomyopathy, h/o systolic CHF, HTN HPI Ms. Hampton is an 89 yr old female admitted to [facility]. She reports she was at home in her garage. She states she turned around, lost her balance and fell. She denies any syncope or near syncope. She states she did not lose consciousn ess. She then scooted herself to the end of her driveway and waited on the ground for several hours before a neighbor found her. She denies any c/o CP, palpitations, dyspnea or LE swelling. Her primary process manager is Dr. Marrero at [facility] in [place], [place]. She does report generalized joint discomfort and neck pain. Review of Systems-Cardiology Review of Systems Constitutional: No chills, No fever, No malaise Eyes: No vision change Ears/Nose/Throat: No epistaxis, No recent hearing loss Respiratory: As described under HPI Cardiovascular: As described under HPI Gastrointestinal: No constipation, No diarrhea, No nausea, No vomiting Genitourinary: No dysuria, No hematuria Musculoskeletal: As describe under HPI Skin: No rash; other (brusing to back of head, back and ACW) Psychiatric/Neurological: No anxiety, No depression, No focal weakness, No syncope Hematologic: No bleeding abnormalities All Other Systems Reviewed Negative Unless Noted: Yes OIV-Pcszok-Ucikmi Hx Patient Social History Marrital Status: single Employed/Student: retired Alcohol Use: Denies Use Recreational Drug Use: No Smoking Status: Never a Smoker 2nd Hand Smoke Exposure: No Recent Foreign Travel: No Recent Infectious Disease Expo: No Physical Abuse Screen: No Sexual Abuse: No Immunizations Up To Date Tetanus Booster (TDap): Unknown Date of Pneumonia Vaccine: Feb 07, 2019 Date of Influenza Vaccine: Jan 23, 2018 Past Medical History PMH As described under Assessment. Family Medical History Family Medical History: She reports her mother had CAD and COPD. She reports her father had CAD and DM. Family History: Arthritis 19 MOTHER, Onset:Unknown Diabetes mellitus 19 FATHER, Onset:Unknown Myocardial infarction 19 FATHER, Onset:Unknown 19 MOTHER, Onset:Unknown Allergies and Home Medications Allergies Coded Allergies: atenolol (Verified Allergy, Unknown, 05/05/18) codeine (Verified Adverse Reaction, Mild, NAUSEA, 05/05/18) HEADACHE diltiazem (Verified Adverse Reaction, Mild, DOESN'T WANT, 05/05/18) indomethacin (Verified Adverse Reaction, Mild, DOESN'T WANT, 05/05/18) propranolol (Verified Adverse Reaction, Mild, DOESN'T WANT, 05/05/18) morphine (Verified Adverse Reaction, Unknown, 05/05/18) reports hearing things-reports she does not want to ever take. haS TOLERATED HYDROCODONE Uncoded Allergies: NITROPATCH (Adverse Reaction, Mild, DOESN'T WANT, 03/29/07) Home Medications Amitriptyline HCl 25 Mg Tablet, 25 MG PO HS, (Reported) Aspirin 81 Mg Tab.chew, 81 MG PO DAILY, (Reported) Cyanocobalamin (Vitamin B-12) 1,000 Mcg Tablet, 1,000 MCG PO DAILY PRN, (Reported) Furosemide 20 Mg Tablet, 20 MG PO DAILY Prescribed by: ZEINA OCHOA on 10/09/19 183 Furosemide 40 Mg Tablet, 40 MG PO DAILY, (Reported) Glucosam/Chond/Hyalu/Cf Borate 1 Each Tablet, 1 TAB PO DAILY, (Reported) Lutein 40 Mg Capsule, 40 MG PO DAILY, (Reported) Metoprolol Succinate 25 Mg Tab.er.24h, 25 MG PO BID, (Reported) Multivitamin 1 Each Tablet, 1 TAB PO DAILY, (Reported) Polyethylene Glycol 3350 17 Gm Powd.pack, 17 GM PO DAILY PRN for CONSTIPATION- 2ND LINE, (Reported) Sacubitril/Valsartan 1 Each Tablet, 1 TAB PO BID, (Reported) Spironolactone 25 Mg Tablet, 12.5 MG PO DAILY Prescribed by: ZEINA OCHOA on 10/09/19 1845 Patient Home Medication List Home Medication List Reviewed: Yes Physical Exam-Cardiology Physical Exam Vital Signs/I&O 10/11/19 10/11/19 09:00 17:03 Temp 36.4 Pulse 98 Resp 18 B/P (MAP) 119/74 (89) Pulse Ox 96 O2 Delivery Room Air Room Air 10/11/19 00:00 Intake Total 660 ml Balance 660 ml Capillary Refill : Less Than 3 Seconds Constitutional: AAO x 3, well-developed, well-nourished HEENT: PERRL, hearing is well preserved, oral hygience is good Neck: No carotid bruit; carotid pulses are 2 + bilaterally Respiratory: No accessory muscle use, No respiratory distress; chest expansion is symmetric, chest is bilaterally symmetric, lungs clear to auscultation Cardiovascular: regular rate-rhythm; No JVD; S1 and S2 Gastrointestinal: No tender; soft, round, audible bowel sounds Extremities: no lower extremity edema bilateral Neurologic/Psychiatric: grossly intact Skin: No rash on exposed areas, No ulcerations on exposed areas; other (diffuse ecchymosis to back of head, neck, shoulders and upper back extending around to shoulders and ACW) Data Review Labs Laboratory Tests 10/11/19 04:37: White Blood Count 7.7, Red Blood Count 4.25L, Hemoglobin 12.6, Hematocrit 39, Mean Corpuscular Volume 93, Mean Corpuscular Hemoglobin 30, Mean Corpuscular Hemoglobin Concent 32, Red Cell Distribution Width 12.9, Platelet Count 206, Mean Platelet Volume 11.6H, Neutrophils (%) (Auto) 76H, Lymphocytes (%) (Auto) 7L, Monocytes (%) (Auto) 9, Eosinophils (%) (Auto) 8, Basophils (%) (Auto) 1, Neutrophils # (Auto) 5.9, Lymphocytes # (Auto) 0.5L, Monocytes # (Auto) 0.7, Eosinophils # (Auto) 0.6H, Basophils # (Auto) 0.1, Sodium Level 140, Potassium Level 3.6, Chloride Level 106, Carbon Dioxide Level 22, Anion Gap 12, Blood Urea Nitrogen 20H, Creatinine 0.80, Estimat Glomerular Filtration Rate > 60, BUN/Creatinine Ratio 25, Glucose Level 95, Calcium Level 9.2, Corrected Calcium 9.4, Total Bilirubin 0.5, Aspartate Amino Transf (AST/SGOT) 15, Alanine Aminotransferase (ALT/SGPT) 17, Alkaline Phosphatase 83, Total Protein 6.4, Albumin 3.8 A/P-Cardiology Assessment/Admission Diagnosis Non-syncopal fall Sinus tachycardia H/O CAD- reported history of stent placement in the past (greater than 5 years ago). Follows with Dr. Marrero as outpatient. Chronic systolic AND diastolic CHF - clinically compensated Echo done November [address] Diallo showed LVEF 35-40%. Grade 1 diastolic dysfunction. Mild MR and TR. 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 Rounded mass-like density in the left base seen on CT of the chest of 10-09-2019 History of frequent falls at home Discussion and Recomendations Chronic systolic CHF with ICM for which she is on Entresto, diuretic tx and BB - continue current regimen Sinus tachycardia - will stop the Norvasc to allow room to increase BB CAD with h/o stent placement - continue ASA Monitor lab closely Further recs will be based on her hospital course We would like to thank Medical services for this consult Clinical Quality Measures DVT/VTE Risk/Contraindication: Risk Factor Score Per Nursin RFS Level Per Nursing on Admit: 4+=Very High ELAYNE CHAU MD FACP FAC CCDS Oct 11, 2019 17:08
[2019-10-11] MEDS: ENOXAPARIN 40 MG/0.4 ML (LOVENOX) SYR SC SCH (23:12)
[2019-10-11] MEDS: meTOproloL SUCCINATE 50 MG (TOPROL XL) TAB PO SCH (23:12)
[2019-10-11] MEDS: AMITRIPTYLINE 25 MG (ELAVIL) TAB PO SCH (23:12)
[2019-10-11] MEDS: HYDROcodone/APAP 5 MG/325 MG (LORTAB) TAB PO PRN (23:13)
[2019-10-12 06:48] VITALS: BP 153/78
[2019-10-12 07:08] LABS: HEMOGLOBIN 11.6 G/DL (11.5-16.0); RED CELL DISTRIBUTION WIDTH 12.9 % (10.0-14.5); WHITE BLOOD COUNT 5.9 10^3/uL (4.3-11.0)
[2019-10-12 07:16] LABS: ALBUMIN 3.6 GM/DL (3.2-4.5); CHLORIDE 104 MMOL/L (98-107); POTASSIUM 3.4 MMOL/L (3.6-5.0); SODIUM 137 MMOL/L (135-145)
[2019-10-12 07:17] LABS: CALCIUM 8.8 MG/DL (8.5-10.1)
[2019-10-12 07:18] LABS: GLUCOSE 120 MG/DL (70-105)
[2019-10-12 07:19] LABS: TOTAL PROTEIN 5.9 GM/DL (6.4-8.2)
[2019-10-12 07:20] LABS: BILIRUBIN,TOTAL 0.5 MG/DL (0.1-1.0); CARBON DIOXIDE 24 MMOL/L (21-32)
[2019-10-12 07:22] LABS: ALKALINE PHOSPHATASE 85 U/L (40-136); GFR ESTIMATED > 60
[2019-10-12 07:23] LABS: BUN/CREATININE RATIO 29
[2019-10-12 07:25] LABS: ALANINE AMINOTRANSFERASE 20 U/L (0-55); MAGNESIUM 1.6 MG/DL (1.6-2.4)
[2019-10-12 08:18] VITALS: BP 123/68
[2019-10-12] MEDS: FUROSEMIDE 40 MG (LASIX) TAB PO SCH (08:19)
[2019-10-12] MEDS: FUROSEMIDE 20 MG (LASIX) TAB PO SCH (08:19)
[2019-10-12] MEDS: SPIRONOLACTONE 25 MG (ALDACTONE) TAB PO SCH (08:19)
[2019-10-12] MEDS: MULTIVIT W/MINERALS TAB (THERAGRAN M) PO SCH (08:19)
[2019-10-12] MEDS: SACUBITRIL/VALSARTAN 24/26 MG (ENTRESTO) TABLET PO SCH ×2 (08:19→21:25)
[2019-10-12] MEDS: meTOproloL SUCCINATE 50 MG (TOPROL XL) TAB PO SCH ×2 (08:19→21:25)
[2019-10-12] MEDS: ASPIRIN 81 MG CHEW (CHILDREN'S ASA) PO SCH (08:19)
[2019-10-12] MEDS: SENNA W/DOCUSATE (SENOKOT S) TABLET PO SCH ×2 (08:20→21:35)
[2019-10-12] MEDS: polyethylene glycoL POWDER 17 GM (MIRALAX) PACK PO SCH ×2 (08:20→21:34)
[2019-10-12] MEDS: CYANOCOBALAMIN 1,000 MCG (VITAMIN B-12) TABLET PO SCH (08:20)
[2019-10-12] MEDS: ACETAMINOPHEN 325 MG TABLET PO PRN (08:22)
[2019-10-12] MEDS: DOCUSATE SODIUM 100 MG (COLACE) CAP PO SCH ×2 (08:22→21:35)
--- NOTE | 2019-10-12 08:37 | Occupational Ther Daily Note ---
OT Current Status-Daily Note Subjective Pt reports pain 3/10 in her head, she said the waffle cushion worked good last night and she slept better. Pain Numeric Pain Scale: 3 Location Body Site: Head ADL-Treatment Therapy Code Descriptions/Definitions Functional [place] Measure: 0=Not Assessed/NA 4=Minimal Assistance 1=Total Assistance 5=Supervision or Setup 2=Maximal Assistance 6=Modified [place] 3=Moderate Assistance 7=Complete IndependenceSCALE: Activities may be completed with or without assistive devices. 4-Gadptgnbei-xnnguoe completes the activity by him/herself with no assistance from a helper. 5-Set-up or Clean-up Assistance-helper sets up or cleans up; patient completes activity. [place] assists only prior to or following the activity. 4-Supervision or Touching Assistance-helper provides verbal cues and/or touching/steadying and/or contact guard assistance as patient completes activity. Assistance may be provided throughout the activity or intermittently. 3-Partial/Moderate Assistance-helper does LESS THAN HALF the effort. [place] lifts, holds or supports trunk or limbs, but provides less than half the effort. 2-Substantial/Maximal Assistance-helper does MORE THAN HALF the effort. [place] lifts or holds trunk or limbs and provides more than half the effort. 2-Clljawvzg-pxvjrs does ALL the effort. Patient does none of the effort to complete the activity. Or, the assistance of 2 or more helpers is required for the patient to complete the activity. If activity was not attempted, code reason: 7-Patient Refused. 9-Not Applicable-not attempted and the patient did not perform the activity before the current illness, exacerbation or injury. 10-Not Attempted due to Environmental Limitations-(lack of equipment, weather restraints, etc.). 88-Not Attempted due to Medical Conditions or Safety Concerns. Oral Hygiene (QC): 4 (SBA standing at sink) On/Off Footwear: 4 (SBA, pt able to use AE as needed to don socks/shoes.) Pt required increased time with ADLs. Other Treatment Pt getting dressed with aide at start of session stating "I knew you guys were coming so I thought I should get dressed". OT educated pt about dressing being part of OT, she verbalized understanding. Pt then donned socks and shoes, using AE as needed, then she buttoned her shirt. After dressing, pt ambulated to restroom using FWW and SBA in order to perform oral hygiene, hair brushing, and apply face cream. Nurse present and pt returned to her recliner in order to take meds. Sit to stand transfer from recliner SBA with lift recliner raised (pt notes difficulty standing from low surfaces). Pt then performed functional mobility to therapy area. In order to increase BUE strength/endurance and fine motor strength, pt placed 1" pegs into foam pegboard, alternating hands with task, placing x100 pegs. Pt took a short rest break, then removed pegs alternating hands. Pt then required min A to stand from chair due to it being a lower surface, the SBA to return to her room using FWW. Post OT session, pt seated in recliner, call light in reach and all needs met. Education OT Patient Education: Correct positioning, Energy conservation, Exercise program, Modified ADL techniques, Progress toward Goal/Update tx plan, Purpose of tx/functional activities, Safety issues, Transfer techniques Teaching Recipient: Patient Teaching Methods: Discussion Response to Teaching: Verbalize Understanding OT Custodial Goals Thermal Technician Goals Time Frame: Oct 31, 2019 Eating (QC): 6 Oral Hygiene (QC): 6 Toileting Hygiene (QC): 6 Shower/Bathe Self (QC): 6 Upper Body Dressing (QC): 6 Lower Body Dressing (QC): 6 On/Off Footwear (QC): 6 Additional Goals: 1-Demonstrate ADL Tasks, 2-Verbalize Understanding, 3- ImproveStrength/[place]ese[place] 1=Demonstrate adherence to instructed precautions during ADL tasks. 2=Patient will verbalize/demonstrate understanding of assistive devices/modifications for ADL. 3=Patient will improve strength/tolerance for activity to enable patient to perform ADL's. OT Education/Plan Problem List/Assessment Assessment: Decreased Activ Tolerance, Decreased UE Strength, Impaired I ADL's, Impaired Self-Care Skills Discharge Recommendations Plan/Recommendations: Continue POC Treatment Plan/Plan of Care Patient would benefit from OT for education, treatment and training to promote independence in ADL's, mobility, safety and/or upper extremity function for ADL's. Plan of Care: ADL Retraining, Functional Mobility, Group Exercise/Act as Ind, UE Funct Exercise/Act Treatment Duration: Oct 31, 2019 Frequency: At least 5 of 7 days/Wk (IRF) Estimated Hrs Per Day: 1.5 hours per day Rehab Potential: Fair Time/GCodes Start Time: 08:00 Stop Time: 09:00 Total Time Billed (hr/min): 60 Billed Treatment Time 1, ADL 2 (30'), FA 2 (30') RENATA TY OT Oct 12, 2019 08:37
--- NOTE | 2019-10-12 09:37 | NUR ---
CM/SS ADMISSION Patient was admitted to ARU 10/10/19 from AV for fall with injury. She had gone outside to get her daily meal delivery from the cooler when she fell sustaining a scalp abrasion and hematoma. She was unable to get up but did crawl her way down the drive way hoping someone would see her. She, however, lay on the concrete outdoors in 90 degree temps for approximately 2 hours before rescue. Patient resides home alone without any significant social network here. She has two sons, one in [facility] and one in [facility]. She has neighbors who loosely monitor but very inconsistent and not like a daily routine safety check. Patient does intend to return home upon discharge. She does continue to drive and function independently within her level of functioning. PCP: Dr. Venkatesh Dobbins MD, [facility] PHARMACY: [facility] INSURANCE: Medicare, [facility]ell [facility] Supplement DME: Has FWW, single point cane, walker in shower with seat and grab bars MEALS: Established with [facility], delivered 4 days per week. They put it in a cooler at her home and she goes out for it. Regarding groceries, she orders through [employer] and they deliver. BARRIERS TO DISCHARGE PLANNING: Patient does reside alone and the fall was a mishap. Recommended some sort of daily friend contact to insure someone takes the next step to check on her if she does not answer the call. Patient SLUMS and personal visit indicates cognition within normal range, no other blatant barriers noted. CONTACTS: Two sons, neither reside locally: Mohit Hampton [address] [place] [address] [place] [address] Patient understands the purpose and process of the weekly patient care conference, she understands that her first review would be Tuesday10/17/19. She expressed she was hoping she would be discharged home prior to that.
[2019-10-12] MEDS ORDERED: KCL 20 MEQ TAB (K-DUR) PO NR (10:00)
--- NOTE | 2019-10-12 10:10 | Physical Therapy Daily Note ---
PT Daily Note-Current Subjective Pt. agrees to Rx. States she has back pain at about 5/10. Pain Numeric Pain Scale: 5-Moderate Pain Location: Medial Location Body Site: Back Pain Description: Ache Mental Status Patient Orientation: Normal For Age Transfers SCALE: Activities may be completed with or without assistive devices. 9-Dsfjdfnmbo-zwgpqnu completes the activity by him/herself with no assistance from a helper. 5-Set-up or Clean-up Assistance-helper sets up or cleans up; patient completes activity. [place] assists only prior to or following the activity. 4-Supervision or Touching Assistance-helper provides verbal cues and/or touching/steadying and/or contact guard assistance as patient completes activity. Assistance may be provided throughout the activity or intermittently. 3-Partial/Moderate Assistance-helper does LESS THAN HALF the effort. [place] lifts, holds or supports trunk or limbs, but provides less than half the effort. 2-Substantial/Maximal Assistance-helper does MORE THAN HALF the effort. [place] lifts or holds trunk or limbs and provides more than half the effort. 6-Jbpziglnj-rnqvif does ALL the effort. Patient does none of the effort to complete the activity. Or, the assistance of 2 or more helpers is required for the patient to complete the activity. If activity was not attempted, code reason: 7-Patient Refused. 9-Not Applicable-not attempted and the patient did not perform the activity before the current illness, exacerbation or injury. 10-Not Attempted due to Environmental Limitations-(lack of equipment, weather restraints, etc.). 88-Not Attempted due to Medical Conditions or Safety Concerns. Roll Left & Right (QC): 6 Sit to Lying (QC): 6 Lying to Sitting/Side of Bed(Q: 6 Sit to Stand (QC): 5 (with seat height raised) Chair/Jpn-az-Nwjlm Xfer(QC): 5 Toilet Transfer (QC): 5 Weight Bearing Full Weight Bearing Full Weight Bearing Gait Training Does the Patient Walk?: Yes Walk 10 feet (QC): 5 Walk 50 ft with 2 Turns(QC): 5 Walk 150 ft (QC): 5 Gait Persons Needed: 1 Gait Assistive Device: FWW slow, flexed at trunk, careful, guarded , Exercises Supine Ex: Bridging (x5), Ankle pumps, Quad Set, Rolling, Glut sets, Heel Slides, Short Arc Quads, Scooting (assisted), Hip abd/add Supine Reps: 15 NuStep Minutes: 10 NuStep Workload: 3 Treatments leg presses on Nustep x 15 Assessment Current Status: Good Progress gives full effort PT Short Term Goals Short Term Goals Time Frame: Oct 17, 2019 Roll Left & Right: 6 Sit to lyin Lying to sitting on side of be: 6 Sit to stand: 4 Chair/wya-xa-pgchq transfer: 4 Walk 10 feet: 4 Walk 50 feet with two turns: 4 Walk 150 feet: 4 PT Data Deliverables Manager Goals Data Deliverables Manager Goals PT Data Deliverables Manager Goals Time Frame: Oct 31, 2019 Roll Left & Right (QC): 6 Sit to Lying (QC): 6 Lying-Sitting on Side/Bed(QC): 6 Sit to Stand (QC): 5 Chair/Ssn-go-Xlhtp Xfer(QC): 5 Toilet Transfer (QC): 5 Car Transfer (QC): 5 Does the Patient Walk: Yes Walk 10 feet (QC): 5 Walk 50ft with 2 Turns (QC): 5 Walk 150 ft (QC): 5 Walking 10ft on Uneven Surface: 5 1 Step (curb) (QC): 4 4 Steps (QC): 4 12 Steps (QC): 88 Picking up an Object (QC): 88 Wheel 50 feet with 2 turns (QC: 9 Wheel 150 feet: 9 PT Plan Treatment/Plan Treatment Plan: Continue Plan of Care Treatment Plan: Education, Functional Activity [place], Functional Strength, Group Therapy, Gait, Safety, Therapeutic Exercise, Transfers Treatment Duration: Oct 31, 2019 Frequency: At least 5 of 7 days/Wk (IRF) Estimated Hrs Per Day: 1.5 hours per day Patient and/or Family Agrees t: Yes Safety Risks/Education Patient Education: Gait Training, Transfer Techniques, Correct Positioning, Disease Process, Safety Issues Teaching Recipient: Patient Teaching Methods: Demonstration, Discussion Response to Teaching: Verbalize Understanding, Return Demonstration, Reinforcement Needed Time/GCodes Time In: 900 Time Out: 1000 Total Billed Treatment Time: 60 Total Billed Treatment 1,GT15m,EX25m,FA20m DARRYL NAM ORACLE TECHNICAL ARCHITECT Oct 12, 2019 10:10
--- NOTE | 2019-10-12 10:12 | Progress Note - Cardiology ---
Cardiology SOAP Progress Note Subjective: No cp or palp or syncope Shortness of breath with exertion Gen weakness and malaise No focal weakness Objective: I&O/Vital Signs 10/12/19 10/12/19 10/12/19 06:48 08:18 09:06 Temp 36.0 Pulse 96 84 Resp 16 B/P (MAP) 153/78 (103) 123/68 (86) Pulse Ox 97 O2 Delivery Room Air Room Air 10/12/19 00:00 Intake Total 1250 ml Balance 1250 ml Weight (Pounds): 144 Weight (Ounces): 9.9 Weight (Calculated Kilograms): 65.718706 Constitutional: AAO x 3, well-developed, well-nourished Respiratory: No accessory muscle use, No respiratory distress; chest expansion is symmetric, chest is bilaterally symmetric, lungs clear to auscultation Cardiovascular: regular rate-rhythm; No JVD; S1 and S2 Gastrointestional: No tender; soft, round, audible bowel sounds Extremities: no lower extremity edema bilateral Neurologic/Psychiatric: grossly intact Skin: No rash on exposed areas, No ulcerations on exposed areas; other (diffuse ecchymosis to back of head, neck, shoulders and upper back extending around to shoulders and ACW) Results/Procedures: Labs Laboratory Tests 10/12/19 06:47: White Blood Count 5.9, Red Blood Count 3.84L, Hemoglobin 11.6, Hematocrit 36, Mean Corpuscular Volume 93, Mean Corpuscular Hemoglobin 30, Mean Corpuscular Hemoglobin Concent 32, Red Cell Distribution Width 12.9, Platelet Count 195, Mean Platelet Volume 11.0H, Sodium Level 137, Potassium Level 3.4L, Chloride Level 104, Carbon Dioxide Level 24, Anion Gap 9, Blood Urea Nitrogen 23H, Creatinine 0.80, Estimat Glomerular Filtration Rate > 60, BUN/Creatinine Ratio 29, Glucose Level 120H, Calcium Level 8.8, Corrected Calcium 9.1, Magnesium Level 1.6, Total Bilirubin 0.5, Aspartate Amino Transf (AST/SGOT) 16, Alanine Aminotransferase (ALT/SGPT) 20, Alkaline Phosphatase 85, Total Protein 5.9L, Albumin 3.6, Thyroid Stimulating Hormone (TSH) 3.40 Laboratory Tests 10/11/19 04:37 10/12/19 06:47 A/P: Assessment: Non-syncopal fall Sinus tachycardia H/O CAD- reported history of stent placement in the past (greater than 5 years ago). Follows with Dr. Marrero as outpatient. Chronic systolic AND diastolic CHF - clinically compensated Echo done November [address] Diallo showed LVEF 35-40%. Grade 1 diastolic dysfunction. Mild MR and TR. 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 Rounded mass-like density in the left base seen on CT of the chest of 10-09-2019 History of frequent falls at home Plan: * Continue current regimen of BB, Entresto, diuretic * Add supple K * Monitor labs ELAYNE CHAU MD FACP FAC CCDS Oct 12, 2019 10:12
--- NOTE | 2019-10-12 11:28 | Physical Therapy Daily Note ---
PT Daily Note-Current Subjective Pt. agrees to Rx. States she feels fairly confident going up steps , "Its coming down that makes me feel vulnerable" Pain Location: No Pain Reported Mental Status Patient Orientation: Normal For Age Transfers SCALE: Activities may be completed with or without assistive devices. 4-Lwktyixamu-epulpsl completes the activity by him/herself with no assistance from a helper. 5-Set-up or Clean-up Assistance-helper sets up or cleans up; patient completes activity. [place] assists only prior to or following the activity. 4-Supervision or Touching Assistance-helper provides verbal cues and/or touching/steadying and/or contact guard assistance as patient completes activity. Assistance may be provided throughout the activity or intermittently. 3-Partial/Moderate Assistance-helper does LESS THAN HALF the effort. [place] lifts, holds or supports trunk or limbs, but provides less than half the effort. 2-Substantial/Maximal Assistance-helper does MORE THAN HALF the effort. [place] lifts or holds trunk or limbs and provides more than half the effort. 9-Rilhisdbi-rtqgun does ALL the effort. Patient does none of the effort to complete the activity. Or, the assistance of 2 or more helpers is required for the patient to complete the activity. If activity was not attempted, code reason: 7-Patient Refused. 9-Not Applicable-not attempted and the patient did not perform the activity before the current illness, exacerbation or injury. 10-Not Attempted due to Environmental Limitations-(lack of equipment, weather restraints, etc.). 88-Not Attempted due to Medical Conditions or Safety Concerns. up down lift chair, std chair with arms and on off toilet all CGA to SBA Weight Bearing Full Weight Bearing Full Weight Bearing Gait Training Does the Patient Walk?: Yes Gait Assistive Device: FWW 150ft x 2 slow, careful, flexed at trunk, some difficulty advancing right side of walker therefore steering walker was lacking Stair Training Stair Training: Handrails/: 2 handrails #of Steps: 4 4 Steps (QC): 4 Stairs: Pattern: Step to Treatments toileted with SBA and some assist to pull pants up Assessment Current Status: Good Progress pt. surprised she managed stairs so well PT Short Term Goals Short Term Goals Time Frame: Oct 17, 2019 Roll Left & Right: 6 Sit to lyin Lying to sitting on side of be: 6 Sit to stand: 4 Chair/xzz-wt-liuiu transfer: 4 Walk 10 feet: 4 Walk 50 feet with two turns: 4 Walk 150 feet: 4 PT Financial Report Service Sales Agent Goals Financial Report Service Sales Agent Goals PT Financial Report Service Sales Agent Goals Time Frame: Oct 31, 2019 Roll Left & Right (QC): 6 Sit to Lying (QC): 6 Lying-Sitting on Side/Bed(QC): 6 Sit to Stand (QC): 5 Chair/Cyx-fe-Wqrbc Xfer(QC): 5 Toilet Transfer (QC): 5 Car Transfer (QC): 5 Does the Patient Walk: Yes Walk 10 feet (QC): 5 Walk 50ft with 2 Turns (QC): 5 Walk 150 ft (QC): 5 Walking 10ft on Uneven Surface: 5 1 Step (curb) (QC): 4 4 Steps (QC): 4 12 Steps (QC): 88 Picking up an Object (QC): 88 Wheel 50 feet with 2 turns (QC: 9 Wheel 150 feet: 9 PT Plan Treatment/Plan Treatment Plan: Continue Plan of Care Treatment Plan: Education, Functional Activity [place], Functional Strength, Group Therapy, Gait, Safety, Therapeutic Exercise, Transfers Treatment Duration: Oct 31, 2019 Frequency: At least 5 of 7 days/Wk (IRF) Estimated Hrs Per Day: 1.5 hours per day Patient and/or Family Agrees t: Yes Safety Risks/Education Patient Education: Gait Training, Transfer Techniques, Steps, Correct Positioning, Disease Process, Safety Issues Teaching Recipient: Patient Teaching Methods: Demonstration, Discussion Response to Teaching: Verbalize Understanding, Return Demonstration, Reinforcement Needed Time/GCodes Time In: 1100 Time Out: 1130 Total Billed Treatment Time: 30 Total Billed Treatment 1,GT15m,FA15m DARRYL NAM DIGITAL PRODUCT MANAGER Oct 12, 2019 11:28
--- NOTE | 2019-10-12 11:42 | PM&R Progress Note ---
Subjective HPI/CC On Admission Date Seen by Provider: Oct 12, 2019 Time Seen by Provider: 10:10 Subjective/Events-last exam Dr Cortes ordered potassium supplement Lasix order is for both 20mg and 40mg so will confer with Dr Cortes BM are moving well a bit loose No pain reported except head hematoma Participating well in therapies Fall risk prevention Conferred with RN Reviewed therapy notes Checked labs and meds Review of Systems General: Fatigue Neurological: Incoordination Objective Exam Vital Signs Vital Signs Date Time Temp Pulse Resp B/P (MAP) Pulse Ox O2 Delivery O2 Flow Rate FiO2 10/13/19 18:05 37.2 96 18 110/72 (85) 96 Room Air Capillary Refill : Less Than 3 Seconds General Appearance: No Apparent Distress, WD/WN, Chronically ill, Thin HEENT: PERRL/EOMI, Normal ENT Inspection, Pharynx Normal Neck: Full Range of Motion, Normal Inspection, Non Tender, Supple, Carotid Bruit Respiratory: Chest Non Tender, Lungs Clear, Normal Breath Sounds, No Accessory Muscle Use, No Respiratory Distress Cardiovascular: Regular Rate, Rhythm, No Edema, No Gallop, No JVD, No Murmur, Normal Peripheral Pulses Gastrointestinal: Normal Bowel Sounds, No Organomegaly, No Pulsatile Mass, Non Tender, Soft Back: Normal Inspection, No CVA Tenderness, No Vertebral Tenderness Extremity: Normal Capillary Refill, Normal Inspection, Normal Range of Motion, Non Tender, No Calf Tenderness, No Pedal Edema Neurologic/Psychiatric: Alert, Oriented x3, No Motor/Sensory Deficits, Normal Mood/Affect, Abnormal Gait, Motor Weakness (generalized weakness all extremities) Skin: Normal Color, Warm/Dry, Ecchymosis (arms, legs, torso, scalp) Lymphatic: No Adenopathy Results/Procedures Lab Patient resulted labs reviewed. FIM Transfers Therapy Code Descriptions/Definitions Functional [place] Measure: 0=Not Assessed/NA 4=Minimal Assistance 1=Total Assistance 5=Supervision or Setup 2=Maximal Assistance 6=Modified [place] 3=Moderate Assistance 7=Complete IndependenceSCALE: Activities may be completed with or without assistive devices. 3-Deqckuqrze-opwhitt completes the activity by him/herself with no assistance from a helper. 5-Set-up or Clean-up Assistance-helper sets up or cleans up; patient completes activity. [place] assists only prior to or following the activity. 4-Supervision or Touching Assistance-helper provides verbal cues and/or touching/steadying and/or contact guard assistance as patient completes activity. Assistance may be provided throughout the activity or intermittently. 3-Partial/Moderate Assistance-helper does LESS THAN HALF the effort. [place] lifts, holds or supports trunk or limbs, but provides less than half the effort. 2-Substantial/Maximal Assistance-helper does MORE THAN HALF the effort. [place] lifts or holds trunk or limbs and provides more than half the effort. 5-Wnwodwiqn-psfipd does ALL the effort. Patient does none of the effort to complete the activity. Or, the assistance of 2 or more helpers is required for the patient to complete the activity. If activity was not attempted, code reason: 7-Patient Refused. 9-Not Applicable-not attempted and the patient did not perform the activity before the current illness, exacerbation or injury. 10-Not Attempted due to Environmental Limitations-(lack of equipment, weather restraints, etc.). 88-Not Attempted due to Medical Conditions or Safety Concerns. Roll Left to Right (QC): 6 Sit to Lying (QC): 6 Sit to Stand (QC): 5 (with seat height raised) Chair/Yun-zz-Yrgvh Xfer(QC): 5 Car Transfer (QC): 3 Gait Training Does the Patient Walk?: Yes Distance: 30' Walk 10 feet (QC): 5 Walk 50 ft with 2 Turns(QC): 5 Walk 150 ft (QC): 5 Walking 10ft/uneven surface-QC: 4 Gait Persons Needed: 1 Gait Assistive Device: FWW Wheelchair Training Does the Pt Use a Wheelchair?: No Wheel 50 ft with 2 turns (QC): 9 Wheel 150 ft (QC): 9 Stair Training Stair Training: Handrails/: 2 handrails #of Steps: 4 1 Step (curb) (QC): 4 4 Steps (QC): 4 12 Steps (QC): 88 Stairs: Pattern: Step to Balance Picking up an Object (QC): 88 ADL-Treatment Eating (QC): 6 Oral Hygiene (QC): 4 (SBA standing at sink) Shower/Bathe Self (QC): 3 (Pt required Min A to wash/dry L shoulder, back, and wash her hair. Pt able to wash/dry all other parts with increased time.) Upper Body Dressing (QC): 5 (Pt donned button up shirt with set up and increased time.) Lower Body Dressing (QC): 3 (Pt able to thread bilateral LE into pants. 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 but does not wish to have work-up or treatment CAD with stents in place PVD with stents in place Lives alone CHF UTI's recurrent in type Elevated LFT's hx Neuropathy Venous stasis lower extremities Plan: Tramadol for pain but does not effective for her so added Hydrocodone Inpatient rehab protocol Ambulation with walker for fall prevention Regain independence with ADLs (1) Fall on same level (2) Congestive heart failure (3) B12 deficiency (4) Recurrent UTI (5) Hyperlipemia (6) PVD (peripheral vascular disease) (7) CAD (coronary artery disease) (8) Coronary arteriosclerosis (9) Clavicle fracture (10) Hypertension (11) Lung mass (12) Peripheral vascular disease (1) Fall on same level Status: Acute (2) Congestive heart failure Status: Acute (3) B12 deficiency (4) Recurrent UTI (5) Hyperlipemia (6) PVD (peripheral vascular disease) (7) CAD (coronary artery disease) (8) Hypertension Status: Acute (9) Lung mass (10) Dizziness Status: Acute (11) Scalp hematoma Status: Acute (12) Scalp abrasion Status: Acute (13) Frequent falls Status: Acute COLLEEN OVIEDO DO Oct 12, 2019 11:42
--- NOTE | 2019-10-12 11:56 | Occupational Ther Daily Note ---
OT Current Status-Daily Note Subjective Pt seated in recliner, agreeable to OT tx. She denied pain at this time. ADL-Treatment Therapy Code Descriptions/Definitions Functional [place] Measure: 0=Not Assessed/NA 4=Minimal Assistance 1=Total Assistance 5=Supervision or Setup 2=Maximal Assistance 6=Modified [place] 3=Moderate Assistance 7=Complete IndependenceSCALE: Activities may be completed with or without assistive devices. 0-Remlamlesm-bsbkcwd completes the activity by him/herself with no assistance from a helper. 5-Set-up or Clean-up Assistance-helper sets up or cleans up; patient completes activity. [place] assists only prior to or following the activity. 4-Supervision or Touching Assistance-helper provides verbal cues and/or touching/steadying and/or contact guard assistance as patient completes activity. Assistance may be provided throughout the activity or intermittently. 3-Partial/Moderate Assistance-helper does LESS THAN HALF the effort. [place] lifts, holds or supports trunk or limbs, but provides less than half the effort. 2-Substantial/Maximal Assistance-helper does MORE THAN HALF the effort. [place] lifts or holds trunk or limbs and provides more than half the effort. 2-Ylghrcihd-wsfrcd does ALL the effort. Patient does none of the effort to complete the activity. Or, the assistance of 2 or more helpers is required for the patient to complete the activity. If activity was not attempted, code reason: 7-Patient Refused. 9-Not Applicable-not attempted and the patient did not perform the activity before the current illness, exacerbation or injury. 10-Not Attempted due to Environmental Limitations-(lack of equipment, weather restraints, etc.). 88-Not Attempted due to Medical Conditions or Safety Concerns. Toileting Hygiene (QC): 4 (SBA, pt able to manage clothing and perform hygiene) Toilet Transfer (QC): 4 (SBA on/off BSC over toilet) Other Treatment Pt seated in recliner, transferred sit to stand with SBA with lift chair elevated. Pt ambulated to therapy area using FWW and SBA. In order to increase standing endurance with tasks, BUE strength and functional endurance, pt completed x15 mins on arm bike, min resistance in standing. Pt took standing r est breaks as needed but declined seated rest breaks. Pt then returned to her room requesting to use the restroom. Pt completed toileting, stood at the sink to wash her hands, then transferred to the recliner. Post OT session, pt seated in recliner, call light in reach and all need met. Education OT Patient Education: Correct positioning, Energy conservation, Exercise program, Modified ADL techniques, Progress toward Goal/Update tx plan, Purpose of tx/functional activities, Transfer techniques Teaching Recipient: Patient Teaching Methods: Discussion Response to Teaching: Verbalize Understanding OT Teaching Aide Goals Teaching Aide Goals Time Frame: Oct 31, 2019 Eating (QC): 6 Oral Hygiene (QC): 6 Toileting Hygiene (QC): 6 Shower/Bathe Self (QC): 6 Upper Body Dressing (QC): 6 Lower Body Dressing (QC): 6 On/Off Footwear (QC): 6 Additional Goals: 1-Demonstrate ADL Tasks, 2-Verbalize Understanding, 3- ImproveStrength/[place] 1=Demonstrate adherence to instructed precautions during ADL tasks. 2=Patient will verbalize/demonstrate understanding of assistive devices/modifications for ADL. 3=Patient will improve strength/tolerance for activity to enable patient to perform ADL's. OT Education/Plan Problem List/Assessment Assessment: Decreased Activ Tolerance, Decreased UE Strength, Impaired I ADL's, Impaired Self-Care Skills Discharge Recommendations Plan/Recommendations: Continue POC Treatment Plan/Plan of Care Patient would benefit from OT for education, treatment and training to promote independence in ADL's, mobility, safety and/or upper extremity function for ADL's. Plan of Care: ADL Retraining, Functional Mobility, Group Exercise/Act as Ind, UE Funct Exercise/Act Treatment Duration: Oct 31, 2019 Frequency: At least 5 of 7 days/Wk (IRF) Estimated Hrs Per Day: 1.5 hours per day Rehab Potential: Fair Time/GCodes Start Time: 11:30 Stop Time: 12:00 Total Time Billed (hr/min): 30 Billed Treatment Time 1, EX (20'), ADL (10') RENATA TY OT Oct 12, 2019 11:55
--- NOTE | 2019-10-12 12:10 | NUR ---
UNABLE TO SWALLOW ORAL POTASSIUM (20MEQ). PER DR. OVIEDO, OK TO SWITCH TO DISSOLVABLE POTASSIUM.
[2019-10-12] MEDS ORDERED: POTASSIUM BICARB 20 MEQ (EFFER-K) TABLET PO NR (12:15)
--- NOTE | 2019-10-12 12:20 | NUR ---
PATIENT STATES THAT SHE JUST TAKES 20 MG OF LASIX PER DAY AT HOME. TYREE RUIZ CALLED AND VERIFIED- [address] OVIEDO NOTIFIED WITH ORDERS TO CHECK WITH DR. CHAU. PER DR. CHAU, DC 40 MG OF LASIX AND CONTINUE WITH 20 MG PER DAY.
--- NOTE | 2019-10-12 13:25 | NUR ---
PATIENT STATES THAT SHE DOES NOT NEED TO TAKE MOVE FREE JOINT HEALTH OR LUTEIN WHILE IN THE HOSPITAL. DR. OVIEDO NOTIFIED AND OK TO HOLD WHILE INPATIENT.
[2019-10-12 15:10] VITALS: BP 146/78
[2019-10-12] MEDS: ENOXAPARIN 40 MG/0.4 ML (LOVENOX) SYR SC SCH (17:58)
[2019-10-12] MEDS: AMITRIPTYLINE 25 MG (ELAVIL) TAB PO SCH (21:25)
[2019-10-12] MEDS: HYDROcodone/APAP 5 MG/325 MG (LORTAB) TAB PO PRN (21:27)
[2019-10-13] MEDS: ACETAMINOPHEN 325 MG TABLET PO PRN ×2 (01:01→13:53)
[2019-10-13 06:15] VITALS: BP 156/82
[2019-10-13] MEDS ORDERED: KCL 10 MEQ TAB (MICRO K) PO SCH (07:00)
[2019-10-13 09:17] VITALS: BP 135/70
--- NOTE | 2019-10-13 09:22 | Physical Therapy Daily Note ---
PT Daily Note-Current Subjective Upon arrival, patient in recliner. Patient agrees to PT, but states, "I need to use the bathroom first." Pain Numeric Pain Scale: 0-No Pain Location: No Pain Reported Mental Status Patient Orientation: Normal For Age Transfers SCALE: Activities may be completed with or without assistive devices. 8-Fzrcgqkpbd-wadeksa completes the activity by him/herself with no assistance from a helper. 5-Set-up or Clean-up Assistance-helper sets up or cleans up; patient completes activity. [place] assists only prior to or following the activity. 4-Supervision or Touching Assistance-helper provides verbal cues and/or touching/steadying and/or contact guard assistance as patient completes acti vity. Assistance may be provided throughout the activity or intermittently. 3-Partial/Moderate Assistance-helper does LESS THAN HALF the effort. [place] lifts, holds or supports trunk or limbs, but provides less than half the effort. 2-Substantial/Maximal Assistance-helper does MORE THAN HALF the effort. [place] lifts or holds trunk or limbs and provides more than half the effort. 5-Rxevlvxio-reixmk does ALL the effort. Patient does none of the effort to complete the activity. Or, the assistance of 2 or more helpers is required for the patient to complete the activity. If activity was not attempted, code reason: 7-Patient Refused. 9-Not Applicable-not attempted and the patient did not perform the activity before the current illness, exacerbation or injury. 10-Not Attempted due to Environmental Limitations-(lack of equipment, weather restraints, etc.). 88-Not Attempted due to Medical Conditions or Safety Concerns. Sit to Stand (QC): 4 Patient transfers from electric recliner to standing w/ recliner in highest position, per patient instructions, at [facility]. Weight Bearing Full Weight Bearing Full Weight Bearing Gait Training Does the Patient Walk?: Yes Distance: 300' Walk 150 ft (QC): 4 Gait Assistive Device: FWW Pt ambulates at [facility]. Pt slow but steady. Pt FWW wanders to the right at times, pt stops and self corrects. VC's given for correct posture during ambulation. Treatments Ambulation, Functional. Pt toilets at SBA. Pt able to don/doff LE clothing w/out using UE support to steady self. Pt stands at bathroom sink to wash/dry hands w/out using UE support to steady self. After ambulation, pt returns to recliner and has call light, bedside table and all needs met at end of tx. Assessment Current Status: Good Progress Pt cheerful and eager to ambulate. Pt states, "I like getting up and walking around." PT Short Term Goals Short Term Goals Time Frame: Oct 17, 2019 Roll Left & Right: 6 Sit to lyin Lying to sitting on side of be: 6 Sit to stand: 4 Chair/gqz-vh-rqwtp transfer: 4 Walk 10 feet: 4 Walk 50 feet with two turns: 4 Walk 150 feet: 4 PT Tail Worker Goals Tail Worker Goals PT Tail Worker Goals Time Frame: Oct 31, 2019 Roll Left & Right (QC): 6 Sit to Lying (QC): 6 Lying-Sitting on Side/Bed(QC): 6 Sit to Stand (QC): 5 Chair/Gbz-mp-Mpbdx Xfer(QC): 5 Toilet Transfer (QC): 5 Car Transfer (QC): 5 Does the Patient Walk: Yes Walk 10 feet (QC): 5 Walk 50ft with 2 Turns (QC): 5 Walk 150 ft (QC): 5 Walking 10ft on Uneven Surface: 5 1 Step (curb) (QC): 4 4 Steps (QC): 4 12 Steps (QC): 88 Picking up an Object (QC): 88 Wheel 50 feet with 2 turns (QC: 9 Wheel 150 feet: 9 PT Plan Problem List Problem List: Activity Tolerance, Functional Strength, Safety, Balance, Gait, Transfer Treatment/Plan Treatment Plan: Continue Plan of Care Treatment Plan: Education, Functional Activity [place], Functional Strength, Group Therapy, Gait, Safety, Therapeutic Exercise, Transfers Treatment Duration: Oct 31, 2019 Frequency: At least 5 of 7 days/Wk (IRF) Estimated Hrs Per Day: 1.5 hours per day Patient and/or Family Agrees t: Yes Safety Risks/Education Patient Education: Gait Training, Safety Issues Teaching Recipient: Patient Teaching Methods: Discussion Response to Teaching: Verbalize Understanding Time/GCodes Time In: 810 Time Out: 835 Total Billed Treatment Time: 25 Total Billed Treatment 1, GT x1 (18m), FA x1 (7m) RIAN NUNES EXPERIMENTAL PSYCHOLOGIST Oct 13, 2019 09:22
[2019-10-13] MEDS: SPIRONOLACTONE 25 MG (ALDACTONE) TAB PO SCH (09:38)
[2019-10-13] MEDS: POTASSIUM BICARB 20 MEQ (EFFER-K) TABLET PO SCH (09:38)
[2019-10-13] MEDS: meTOproloL SUCCINATE 50 MG (TOPROL XL) TAB PO SCH ×2 (09:39→20:29)
[2019-10-13] MEDS: ASPIRIN 81 MG CHEW (CHILDREN'S ASA) PO SCH (09:39)
[2019-10-13] MEDS: SACUBITRIL/VALSARTAN 24/26 MG (ENTRESTO) TABLET PO SCH ×2 (09:39→20:29)
[2019-10-13] MEDS: FUROSEMIDE 20 MG (LASIX) TAB PO SCH (09:39)
[2019-10-13] MEDS: MULTIVIT W/MINERALS TAB (THERAGRAN M) PO SCH (09:39)
[2019-10-13] MEDS: CYANOCOBALAMIN 1,000 MCG (VITAMIN B-12) TABLET PO SCH (09:40)
[2019-10-13] MEDS: DOCUSATE SODIUM 100 MG (COLACE) CAP PO SCH ×2 (09:41→20:28)
[2019-10-13] MEDS: SENNA W/DOCUSATE (SENOKOT S) TABLET PO SCH ×2 (09:41→20:30)
[2019-10-13] MEDS: polyethylene glycoL POWDER 17 GM (MIRALAX) PACK PO SCH ×2 (09:48→20:30)
--- NOTE | 2019-10-13 11:21 | PM&R Progress Note ---
Subjective HPI/CC On Admission Date Seen by Provider: Oct 13, 2019 Time Seen by Provider: 10:00 Subjective/Events-last exam Loose stools are continuing a bit 1/2 Lortab is working well Decreasing urination pain now A&D ointment restarted Biotene restarted Conferred with RN Reviewed therapy notes Checked labs and meds Review of Systems Neurological: Weakness, Numbness Objective Exam Vital Signs Vital Signs Date Time Temp Pulse Resp B/P (MAP) Pulse Ox O2 Delivery O2 Flow Rate FiO2 10/13/19 18:05 37.2 96 18 110/72 (85) 96 Room Air Capillary Refill : Less Than 3 Seconds General Appearance: No Apparent Distress, WD/WN, Chronically ill, Thin HEENT: PERRL/EOMI, Normal ENT Inspection, Pharynx Normal Neck: Full Range of Motion, Normal Inspection, Non Tender, Supple, Carotid Bruit Respiratory: Chest Non Tender, Lungs Clear, Normal Breath Sounds, No Accessory Muscle Use, No Respiratory Distress Cardiovascular: Regular Rate, Rhythm, No Edema, No Gallop, No JVD, No Murmur, Normal Peripheral Pulses Gastrointestinal: Normal Bowel Sounds, No Organomegaly, No Pulsatile Mass, Non Tender, Soft Back: Normal Inspection, No CVA Tenderness, No Vertebral Tenderness Extremity: Normal Capillary Refill, Normal Inspection, Normal Range of Motion, Non Tender, No Calf Tenderness, No Pedal Edema Neurologic/Psychiatric: Alert, Oriented x3, No Motor/Sensory Deficits, Normal Mood/Affect, Abnormal Gait, Motor Weakness (generalized weakness all extremities) Skin: Normal Color, Warm/Dry, Ecchymosis (arms, legs, torso, scalp) Lymphatic: No Adenopathy Results/Procedures Lab Patient resulted labs reviewed. FIM Transfers Therapy Code Descriptions/Definitions Functional [place] Measure: 0=Not Assessed/NA 4=Minimal Assistance 1=Total Assistance 5=Supervision or Setup 2=Maximal Assistance 6=Modified [place] 3=Moderate Assistance 7=Complete IndependenceSCALE: Activities may be completed with or without assistive devices. 2-Lvfiblaccu-vubskuo completes the activity by him/herself with no assistance from a helper. 5-Set-up or Clean-up Assistance-helper sets up or cleans up; patient completes activity. [place] assists only prior to or following the activity. 4-Supervision or Touching Assistance-helper provides verbal cues and/or touching/steadying and/or contact guard assistance as patient completes activity. Assistance may be provided throughout the activity or intermittently. 3-Partial/Moderate Assistance-helper does LESS THAN HALF the effort. [place] lifts, holds or supports trunk or limbs, but provides less than half the effort. 2-Substantial/Maximal Assistance-helper does MORE THAN HALF the effort. [place] lifts or holds trunk or limbs and provides more than half the effort. 7-Gntfejszb-kkfnbx does ALL the effort. Patient does none of the effort to complete the activity. Or, the assistance of 2 or more helpers is required for the patient to complete the activity. If activity was not attempted, code reason: 7-Patient Refused. 9-Not Applicable-not attempted and the patient did not perform the activity before the current illness, exacerbation or injury. 10-Not Attempted due to Environmental Limitations-(lack of equipment, weather restraints, etc.). 88-Not Attempted due to Medical Conditions or Safety Concerns. Roll Left to Right (QC): 6 Sit to Lying (QC): 6 Sit to Stand (QC): 4 Chair/Hjb-vj-Jqvrc Xfer(QC): 5 Car Transfer (QC): 3 Gait Training Does the Patient Walk?: Yes Distance: 300' Walk 10 feet (QC): 5 Walk 50 ft with 2 Turns(QC): 5 Walk 150 ft (QC): 4 Walking 10ft/uneven surface-QC: 4 Gait Persons Needed: 1 Gait Assistive Device: FWW Wheelchair Training Does the Pt Use a Wheelchair?: No Wheel 50 ft with 2 turns (QC): 9 Wheel 150 ft (QC): 9 Stair Training Stair Training: Handrails/: 2 handrails #of Steps: 4 1 Step (curb) (QC): 4 4 Steps (QC): 4 12 Steps (QC): 88 Stairs: Pattern: Step to Balance Picking up an Object (QC): 88 ADL-Treatment Eating (QC): 6 Oral Hygiene (QC): 4 (SBA standing at sink) Shower/Bathe Self (QC): 3 (Pt required Min A to wash/dry L shoulder, back, and wash her hair. Pt able to wash/dry all other parts with increased time.) Upper Body Dressing (QC): 5 (Pt donned button up shirt with set up and increased time.) Lower Body Dressing (QC): 3 (Pt able to thread bilateral LE into pants. 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 but does not wish to have work-up or treatment CAD with stents in place PVD with stents in place Lives alone CHF UTI's recurrent in type Elevated LFT's hx Neuropathy Plan: Tramadol for pain but does not effective for her so added Hydrocodone Inpatient rehab protocol Ambulation with walker for fall prevention Regain independence with ADLs Biotene for dry mouth Voltaren gel (1) Fall on same level (2) Congestive heart failure (3) B12 deficiency (4) Recurrent UTI (5) Hyperlipemia (6) PVD (peripheral vascular disease) (7) CAD (coronary artery disease) (8) Coronary arteriosclerosis (9) Clavicle fracture (10) Hypertension (11) Lung mass (12) Peripheral vascular disease (1) Fall on same level Status: Acute (2) Congestive heart failure Status: Acute (3) B12 deficiency (4) Recurrent UTI (5) Hyperlipemia (6) PVD (peripheral vascular disease) (7) CAD (coronary artery disease) (8) Hypertension Status: Acute (9) Lung mass (10) Dizziness Status: Acute (11) Scalp hematoma Status: Acute (12) Scalp abrasion Status: Acute (13) Frequent falls Status: Acute COLLEEN OVIEDO DO Oct 13, 2019 11:21
[2019-10-13] MEDS: DICLOFENAC 1% GEL 100 GM (VOLTAREN) TUBE TOP PRN (15:09)
[2019-10-13] MEDS: ENOXAPARIN 40 MG/0.4 ML (LOVENOX) SYR SC SCH (17:53)
[2019-10-13 18:05] VITALS: BP 110/72
[2019-10-13] MEDS: AMITRIPTYLINE 25 MG (ELAVIL) TAB PO SCH (20:29)
[2019-10-14] MEDS: ACETAMINOPHEN 325 MG TABLET PO PRN ×2 (00:30→20:55)
[2019-10-14 06:00] VITALS: BP 152/75
[2019-10-14] MEDS: POTASSIUM BICARB 20 MEQ (EFFER-K) TABLET PO SCH (06:42)
[2019-10-14 09:12] VITALS: BP 126/73
[2019-10-14] MEDS: meTOproloL SUCCINATE 50 MG (TOPROL XL) TAB PO SCH ×2 (09:16→20:55)
[2019-10-14] MEDS: ASPIRIN 81 MG CHEW (CHILDREN'S ASA) PO SCH (09:17)
[2019-10-14] MEDS: MULTIVIT W/MINERALS TAB (THERAGRAN M) PO SCH (09:17)
[2019-10-14] MEDS: FUROSEMIDE 20 MG (LASIX) TAB PO SCH (09:17)
[2019-10-14] MEDS: SPIRONOLACTONE 25 MG (ALDACTONE) TAB PO SCH (09:17)
[2019-10-14] MEDS: SACUBITRIL/VALSARTAN 24/26 MG (ENTRESTO) TABLET PO SCH ×2 (09:17→20:55)
[2019-10-14] MEDS: CYANOCOBALAMIN 1,000 MCG (VITAMIN B-12) TABLET PO SCH (09:17)
[2019-10-14] MEDS: polyethylene glycoL POWDER 17 GM (MIRALAX) PACK PO SCH ×2 (09:28→20:55)
[2019-10-14] MEDS: SENNA W/DOCUSATE (SENOKOT S) TABLET PO SCH ×2 (09:29→20:56)
[2019-10-14] MEDS: DOCUSATE SODIUM 100 MG (COLACE) CAP PO SCH ×2 (09:29→20:55)
[2019-10-14] MEDS: DICLOFENAC 1% GEL 100 GM (VOLTAREN) TUBE TOP PRN (09:30)
[2019-10-14] MEDS: SALIVA STIMULANT MOUTH SPRAY (BIOTENE) 1.5 OZ MM PRN ×2 (09:30→18:55)
--- NOTE | 2019-10-14 11:38 | PM&R Progress Note ---
Subjective HPI/CC On Admission Date Seen by Provider: Oct 14, 2019 Time Seen by Provider: 11:45 Subjective/Events-last exam Loose stools are resolved 1/2 Lortab is working well but she mostly uses APAP and not narc No more nausea noted like last night after supper A&D ointment restarted on hr legs which is helpful Hydrocortisone and Estrogen cream will be added to her regimen which she takes at home Biotene restarted helping her with dry mouth Conferred with RN Reviewed therapy notes Checked labs and meds Review of Systems General: Fatigue Gastrointestinal: Nausea Neurological: Incoordination Objective Exam Vital Signs Vital Signs Date Time Temp Pulse Resp B/P (MAP) Pulse Ox O2 Delivery O2 Flow Rate FiO2 10/14/19 09:12 86 18 126/73 (90) 97 Room Air 10/14/19 06:00 36.2 Capillary Refill : Less Than 3 Seconds General Appearance: No Apparent Distress, WD/WN, Chronically ill, Thin HEENT: PERRL/EOMI, Normal ENT Inspection, Pharynx Normal Neck: Full Range of Motion, Normal Inspection, Non Tender, Supple, Carotid Bruit Respiratory: Chest Non Tender, Lungs Clear, Normal Breath Sounds, No Accessory Muscle Use, No Respiratory Distress Cardiovascular: Regular Rate, Rhythm, No Edema, No Gallop, No JVD, No Murmur, Normal Peripheral Pulses Gastrointestinal: Normal Bowel Sounds, No Organomegaly, No Pulsatile Mass, Non Tender, Soft Back: Normal Inspection, No CVA Tenderness, No Vertebral Tenderness Extremity: Normal Capillary Refill, Normal Inspection, Normal Range of Motion, Non Tender, No Calf Tenderness, No Pedal Edema Neurologic/Psychiatric: Alert, Oriented x3, No Motor/Sensory Deficits, Normal Mood/Affect, Abnormal Gait, Motor Weakness (generalized weakness all extremities) Skin: Normal Color, Warm/Dry, Ecchymosis (arms, legs, torso, scalp) Lymphatic: No Adenopathy Results/Procedures Lab Patient resulted labs reviewed. FIM Transfers Therapy Code Descriptions/Definitions Functional [place] Measure: 0=Not Assessed/NA 4=Minimal Assistance 1=Total Assistance 5=Supervision or Setup 2=Maximal Assistance 6=Modified [place] 3=Moderate Assistance 7=Complete IndependenceSCALE: Activities may be completed with or without assistive devices. 5-Lftjneasgf-lhbamzl completes the activity by him/herself with no assistance from a helper. 5-Set-up or Clean-up Assistance-helper sets up or cleans up; patient completes activity. [place] assists only prior to or following the activity. 4-Supervision or Touching Assistance-helper provides verbal cues and/or touching/steadying and/or contact guard assistance as patient completes ac tivity. Assistance may be provided throughout the activity or intermittently. 3-Partial/Moderate Assistance-helper does LESS THAN HALF the effort. [place] lifts, holds or supports trunk or limbs, but provides less than half the effort. 2-Substantial/Maximal Assistance-helper does MORE THAN HALF the effort. [place] lifts or holds trunk or limbs and provides more than half the effort. 0-Qsurgdaau-tsvzfy does ALL the effort. Patient does none of the effort to complete the activity. Or, the assistance of 2 or more helpers is required for the patient to complete the activity. If activity was not attempted, code reason: 7-Patient Refused. 9-Not Applicable-not attempted and the patient did not perform the activity before the current illness, exacerbation or injury. 10-Not Attempted due to Environmental Limitations-(lack of equipment, weather restraints, etc.). 88-Not Attempted due to Medical Conditions or Safety Concerns. Roll Left to Right (QC): 6 Sit to Lying (QC): 6 Sit to Stand (QC): 4 Chair/Aae-sk-Abxnt Xfer(QC): 5 Car Transfer (QC): 3 Gait Training Does the Patient Walk?: Yes Distance: 300' Walk 10 feet (QC): 5 Walk 50 ft with 2 Turns(QC): 5 Walk 150 ft (QC): 4 Walking 10ft/uneven surface-QC: 4 Gait Persons Needed: 1 Gait Assistive Device: FWW Wheelchair Training Does the Pt Use a Wheelchair?: No Wheel 50 ft with 2 turns (QC): 9 Wheel 150 ft (QC): 9 Stair Training Stair Training: Handrails/: 2 handrails #of Steps: 4 1 Step (curb) (QC): 4 4 Steps (QC): 4 12 Steps (QC): 88 Stairs: Pattern: Step to Balance Picking up an Object (QC): 88 ADL-Treatment Eating (QC): 6 Oral Hygiene (QC): 4 (SBA standing at sink) Shower/Bathe Self (QC): 3 (Pt required Min A to wash/dry L shoulder, back, and wash her hair. Pt able to wash/dry all other parts with increased time.) Upper Body Dressing (QC): 5 (Pt donned button up shirt with set up and increased time.) Lower Body Dressing (QC): 3 (Pt able to thread bilateral LE into pants. 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 but does not wish to have work-up or treatment CAD with stents in place PVD with stents in place Lives alone CHF UTI's recurrent in type Elevated LFT's hx Neuropathy Plan: Tramadol for pain but does not effective for her so added Hydrocodone Inpatient rehab protocol Ambulation with walker for fall prevention Regain independence with ADLs Biotene for dry mouth Voltaren gel (1) Fall on same level (2) Congestive heart failure (3) B12 deficiency (4) Recurrent UTI (5) Hyperlipemia (6) PVD (peripheral vascular disease) (7) CAD (coronary artery disease) (8) Coronary arteriosclerosis (9) Clavicle fracture (10) Hypertension (11) Lung mass (12) Peripheral vascular disease (1) Fall on same level Status: Acute (2) Congestive heart failure Status: Acute (3) B12 deficiency (4) Recurrent UTI (5) Hyperlipemia (6) PVD (peripheral vascular disease) (7) CAD (coronary artery disease) (8) Hypertension Status: Acute (9) Lung mass (10) Dizziness Status: Acute (11) Scalp hematoma Status: Acute (12) Scalp abrasion Status: Acute (13) Frequent falls Status: Acute COLLEEN OVIEDO DO Oct 14, 2019 11:38
--- NOTE | 2019-10-14 13:09 | NUR ---
Pt had stated that she has to use Hydrocortisone cream approx once a week for vaginal itching. Notified Dr. Lott & rec'd order for this.
[2019-10-14] MEDS ORDERED: HYDROCORTISONE 1% CREAM 30 GM TUBE TOP PRN (13:15)
[2019-10-14] MEDS: ENOXAPARIN 40 MG/0.4 ML (LOVENOX) SYR SC SCH (18:06)
[2019-10-14 18:56] VITALS: BP 126/73
[2019-10-14] MEDS: AMITRIPTYLINE 25 MG (ELAVIL) TAB PO SCH (20:55)
[2019-10-15 05:05] VITALS: BP 152/73
[2019-10-15 05:39] LABS: POTASSIUM 4.1 MMOL/L (3.6-5.0)
[2019-10-15 05:45] LABS: CREATININE SERUM 0.99 MG/DL (0.60-1.30)
[2019-10-15 05:48] LABS: MAGNESIUM 2.2 MG/DL (1.6-2.4)
[2019-10-15] MEDS: POTASSIUM BICARB 20 MEQ (EFFER-K) TABLET PO SCH (06:32)
[2019-10-15] MEDS: meTOproloL SUCCINATE 50 MG (TOPROL XL) TAB PO SCH ×2 (08:41→21:12)
[2019-10-15] MEDS: FUROSEMIDE 20 MG (LASIX) TAB PO SCH (08:42)
[2019-10-15] MEDS: SACUBITRIL/VALSARTAN 24/26 MG (ENTRESTO) TABLET PO SCH ×2 (08:42→21:12)
[2019-10-15] MEDS: polyethylene glycoL POWDER 17 GM (MIRALAX) PACK PO SCH ×2 (08:42→21:24)
[2019-10-15] MEDS: MULTIVIT W/MINERALS TAB (THERAGRAN M) PO SCH (08:42)
[2019-10-15] MEDS: SPIRONOLACTONE 25 MG (ALDACTONE) TAB PO SCH (08:42)
[2019-10-15] MEDS: CYANOCOBALAMIN 1,000 MCG (VITAMIN B-12) TABLET PO SCH (08:43)
[2019-10-15] MEDS: DOCUSATE SODIUM 100 MG (COLACE) CAP PO SCH ×2 (08:46→21:11)
[2019-10-15] MEDS: SENNA W/DOCUSATE (SENOKOT S) TABLET PO SCH ×2 (08:46→21:24)
[2019-10-15] MEDS: ASPIRIN 81 MG CHEW (CHILDREN'S ASA) PO SCH (08:49)
--- NOTE | 2019-10-15 09:12 | Occupational Ther Daily Note ---
OT Current Status-Daily Note Subjective Pt alert, sitting in recliner. Pt agrees to therapy. Pt c/o pain in L shldr, heat to L shldr then medicated lotion applied after heat. Nrsg aware. Mental Status/Objective Patient Orientation: Person, Place, Time, Situation ADL-Treatment Pt agrees to shower. Set up required with shower. Transferred into/out of shower using grabbars, FWW and shower bench with CGA. Sitting on shower bench, pt able to reach all areas except buttocks then CGA to stand using grabbars to stabilize pt able to cleanse buttocks. After set up for clothing, pt able to don shirt with min A due to decreased B UE ROM. Threaded pants over feet then CGA in standing while pt hiked pants over hips. Doffed socks by self, used sock aide to don socks. Donned shoes by self. Pt stood at sink to complete oral care, supervision. Pt takes increased time to complete tasks due to decreased mobility/balance and slow movements. After session, pt sitting in recliner with call light/phone in reach. All needs met in room. Therapy Code Descriptions/Definitions Functional [place] Measure: 0=Not Assessed/NA 4=Minimal Assistance 1=Total Assistance 5=Supervision or Setup 2=Maximal Assistance 6=Modified [place] 3=Moderate Assistance 7=Complete IndependenceSCALE: Activities may be completed with or without assistive devices. 9-Qaxekexzgs-zaaqere completes the activity by him/herself with no assistance from a helper. 5-Set-up or Clean-up Assistance-helper sets up or cleans up; patient completes activity. [place] assists only prior to or following the activity. 4-Supervision or Touching Assistance-helper provides verbal cues and/or touching/steadying and/or contact guard assistance as patient completes activity. Assistance may be provided throughout the activity or intermittently. 3-Partial/Moderate Assistance-helper does LESS THAN HALF the effort. [place] lifts, holds or supports trunk or limbs, but provides less than half the effort. 2-Substantial/Maximal Assistance-helper does MORE THAN HALF the effort. [place] lifts or holds trunk or limbs and provides more than half the effort. 8-Fnzanenew-ckssse does ALL the effort. Patient does none of the effort to complete the activity. Or, the assistance of 2 or more helpers is required for the patient to complete the activity. If activity was not attempted, code reason: 7-Patient Refused. 9-Not Applicable-not attempted and the patient did not perform the activity before the current illness, exacerbation or injury. 10-Not Attempted due to Environmental Limitations-(lack of equipment, weather restraints, etc.). 88-Not Attempted due to Medical Conditions or Safety Concerns. Eating (QC): 6 (Pt able to set own meal up and uses regular utensils to eat.) Oral Hygiene (QC): 4 Bathing Location: L Arm, R Arm, L Upper Leg, R Upper Leg, L Lower Leg (including foot), R Lower Leg (including foot), Chest, Abdomen, Buttocks, Perineal Area Shower/Bathe Self (QC): 4 Upper Body Dressing (QC): 3 Lower Body Dressing (QC): 4 On/Off Footwear: 5 Toileting Hygiene (QC): 4 (Supervision) Toilet Transfer (QC): 4 (Supervision) OT Handle Attacher Goals Handle Attacher Goals Time Frame: Oct 31, 2019 Eating (QC): 6 Oral Hygiene (QC): 6 Toileting Hygiene (QC): 6 Shower/Bathe Self (QC): 6 Upper Body Dressing (QC): 6 Lower Body Dressing (QC): 6 On/Off Footwear (QC): 6 Additional Goals: 1-Demonstrate ADL Tasks, 2-Verbalize Understanding, 3- ImproveStrength/[place] 1=Demonstrate adherence to instructed precautions during ADL tasks. 2=Patient will verbalize/demonstrate understanding of assistive devices/modifications for ADL. 3=Patient will improve strength/tolerance for activity to enable patient to perform ADL's. OT Education/Plan Problem List/Assessment Assessment: Decreased Activ Tolerance, Decreased UE Strength, Impaired Coordination, Impaired Funct Balance, Impaired Self-Care Skills, Restricted Funct UE ROM Discharge Recommendations Plan/Recommendations: Continue POC Treatment Plan/Plan of Care Patient would benefit from OT for education, treatment and training to promote independence in ADL's, mobility, safety and/or upper extremity function for ADL's. Plan of Care: ADL Retraining, Functional Mobility, Group Exercise/Act as Ind, UE Funct Exercise/Act Treatment Duration: Oct 31, 2019 Frequency: At least 5 of 7 days/Wk (IRF) Estimated Hrs Per Day: 1.5 hours per day Rehab Potential: Fair Time/GCodes Start Time: 07:30 Stop Time: 09:00 Total Time Billed (hr/min): 90 Billed Treatment Time 1 visit-ADL 6 (90 min) SHAHNAZ MAR Oct 15, 2019 09:12
--- NOTE | 2019-10-15 09:31 | Progress Note - Cardiology ---
Cardiology SOAP Progress Note Subjective: Sitting up in recliner at the bedside. Warm pack to right shoulder. Denies any c/o CP, dyspnea or palpitations Objective: I&O/Vital Signs 10/16/19 10/16/19 10/16/19 05:34 08:04 08:12 Temp 36.0 Pulse 77 90 Resp 18 B/P (MAP) 150/74 (99) 109/67 (81) Pulse Ox 97 O2 Delivery Room Air Room Air 10/16/19 00:00 Intake Total 1140 ml Balance 1140 ml Weight (Pounds): 144 Weight (Ounces): 9.9 Weight (Calculated Kilograms): [id number] Constitutional: AAO x 3, well-developed, well-nourished Respiratory: No accessory muscle use, No respiratory distress; chest expansion is symmetric, chest is bilaterally symmetric, lungs clear to auscultation Cardiovascular: regular rate-rhythm; No JVD; S1 and S2 Gastrointestional: No tender; soft, round, audible bowel sounds Extremities: no lower extremity edema bilateral Neurologic/Psychiatric: grossly intact Skin: No rash on exposed areas, No ulcerations on exposed areas; other (diffuse ecchymosis to back of head, neck, shoulders and upper back extending around to shoulders and ACW) Results/Procedures: Labs A/P: Assessment: Non-syncopal fall Sinus tachycardia H/O CAD- reported history of stent placement in the past (greater than 5 years ago). Follows with Dr. Marrero as outpatient. Chronic systolic AND diastolic CHF - clinically compensated Echo done November [address] Diallo showed LVEF 35-40%. Grade 1 diastolic dysfunction. Mild MR and TR. 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 Rounded mass-like density in the left base seen on CT of the chest of 10-09-2019 History of frequent falls at home Plan: * Continue current regimen of BB, Entresto, diuretic * Add supple K * Monitor labs AMY LEIGH Oct 15, 2019 09:31
--- NOTE | 2019-10-15 09:38 | PM&R Progress Note ---
Subjective HPI/CC On Admission Date Seen by Provider: Oct 15, 2019 Time Seen by Provider: 09:30 Subjective/Events-last exam Pt had a pretty good night Bowels moving, not as loose No Lortab taken for two days in a row, depending on Tylenol now Systolic BP in the 150s Dr. Cortes evaluating Potassium good at 4.1 with supplement Tuesday meeting will evaluate her progress and set discharge date Conferred with RN Reviewed therapy notes Checked labs and meds Review of Systems General: Fatigue Neurological: Weakness Objective Exam Vital Signs Vital Signs Date Time Temp Pulse Resp B/P (MAP) Pulse Ox O2 Delivery O2 Flow Rate FiO2 10/15/19 18:04 36.2 83 20 114/68 (83) 96 Room Air Capillary Refill : Less Than 3 Seconds General Appearance: No Apparent Distress, WD/WN, Chronically ill, Thin HEENT: PERRL/EOMI, Normal ENT Inspection, Pharynx Normal Neck: Full Range of Motion, Normal Inspection, Non Tender, Supple, Carotid Bruit, Other (ecchymosis noted chest) Respiratory: Chest Non Tender, Lungs Clear, Normal Breath Sounds, No Accessory Muscle Use, No Respiratory Distress Cardiovascular: Regular Rate, Rhythm, No Edema, No Gallop, No JVD, No Murmur, Normal Peripheral Pulses Gastrointestinal: Normal Bowel Sounds, No Organomegaly, No Pulsatile Mass, Non Tender, Soft Back: Normal Inspection, No CVA Tenderness, No Vertebral Tenderness Extremity: Normal Capillary Refill, Normal Inspection, Normal Range of Motion, Non Tender, No Calf Tenderness, No Pedal Edema Neurologic/Psychiatric: Alert, Oriented x3, No Motor/Sensory Deficits, Normal Mood/Affect, Abnormal Gait, Motor Weakness (generalized weakness all extremities) Skin: Normal Color, Warm/Dry, Ecchymosis (arms, legs, torso, scalp) Lymphatic: No Adenopathy Results/Procedures Lab Laboratory Tests 10/15/19 05:12 Patient resulted labs reviewed. FIM Transfers Therapy Code Descriptions/Definitions Functional [place] Measure: 0=Not Assessed/NA 4=Minimal Assistance 1=Total Assistance 5=Supervision or Setup 2=Maximal Assistance 6=Modified [place] 3=Moderate Assistance 7=Complete IndependenceSCALE: Activities may be completed with or without assistive devices. 3-Pnfoqowcwe-ldoaoou completes the activity by him/herself with no assistance from a helper. 5-Set-up or Clean-up Assistance-helper sets up or cleans up; patient completes activity. [place] assists only prior to or following the activity. 4-Supervision or Touching Assistance-helper provides verbal cues and/or touching/steadying and/or contact guard assistance as patient completes activity. Assistance may be provided throughout the activity or intermittently. 3-Partial/Moderate Assistance-helper does LESS THAN HALF the effort. [place] lifts, holds or supports trunk or limbs, but provides less than half the effort. 2-Substantial/Maximal Assistance-helper does MORE THAN HALF the effort. [place] lifts or holds trunk or limbs and provides more than half the effort. 7-Mmcirudcn-uzaywv does ALL the effort. Patient does none of the effort to complete the activity. Or, the assistance of 2 or more helpers is required for the patient to complete the activity. If activity was not attempted, code reason: 7-Patient Refused. 9-Not Applicable-not attempted and the patient did not perform the activity before the current illness, exacerbation or injury. 10-Not Attempted due to Environmental Limitations-(lack of equipment, weather re straints, etc.). 88-Not Attempted due to Medical Conditions or Safety Concerns. Roll Left to Right (QC): 6 Sit to Lying (QC): 6 Sit to Stand (QC): 4 Chair/Pze-ng-Atevn Xfer(QC): 5 Car Transfer (QC): 3 Gait Training Does the Patient Walk?: Yes Distance: 300' Walk 10 feet (QC): 5 Walk 50 ft with 2 Turns(QC): 5 Walk 150 ft (QC): 4 Walking 10ft/uneven surface-QC: 4 Gait Persons Needed: 1 Gait Assistive Device: FWW Wheelchair Training Does the Pt Use a Wheelchair?: No Wheel 50 ft with 2 turns (QC): 9 Wheel 150 ft (QC): 9 Stair Training Stair Training: Handrails/: 2 handrails #of Steps: 4 1 Step (curb) (QC): 4 4 Steps (QC): 4 12 Steps (QC): 88 Stairs: Pattern: Step to Balance Picking up an Object (QC): 88 ADL-Treatment Eating (QC): 6 (Pt able to set own meal up and uses regular utensils to eat.) Oral Hygiene (QC): 4 Bathing Location: L Arm, R Arm, L Upper Leg, R Upper Leg, L Lower Leg (including foot), R Lower Leg (including foot), Chest, Abdomen, Buttocks, Perineal Area Shower/Bathe Self (QC): 4 Upper Body Dressing (QC): 3 Lower Body Dressing (QC): 4 On/Off Footwear (QC): 5 Toileting Hygiene (QC): 4 (Supervision) Toilet Transfer (QC): 4 (Supervision) Assessment/Plan Assessment and Plan Assess & Plan/Chief Complaint Assessment: Recent fall with history of multiple falls Soft tissue contusions from fall Previous right clavicle fracture requiring IRF admit 11/2018 Hypertension 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 but does not wish to have work-up or treatment CAD with stents in place PVD with stents in place Lives alone CHF UTI's recurrent in type Elevated LFT's hx Neuropathy Plan: Tramadol for pain but does not effective for her so added Hydrocodone Inpatient rehab protocol Ambulation with walker for fall prevention Regain independence with ADLs Biotene for dry mouth Voltaren gel Potassium good (1) Fall on same level (2) Congestive heart failure (3) B12 deficiency (4) Recurrent UTI (5) Hyperlipemia (6) PVD (peripheral vascular disease) (7) CAD (coronary artery disease) (8) Coronary arteriosclerosis (9) Clavicle fracture (10) Hypertension (11) Lung mass (12) Peripheral vascular disease (1) Fall on same level Status: Acute (2) Congestive heart failure Status: Acute (3) B12 deficiency (4) Recurrent UTI (5) Hyperlipemia (6) PVD (peripheral vascular disease) (7) CAD (coronary artery disease) (8) Hypertension Status: Acute (9) Lung mass (10) Dizziness Status: Acute (11) Scalp hematoma Status: Acute (12) Scalp abrasion Status: Acute (13) Frequent falls Status: Acute COLLEEN OVIEDO DO Oct 15, 2019 09:38
--- NOTE | 2019-10-15 11:01 | Physical Therapy Daily Note ---
PT Daily Note-Current Subjective Pt. agrees to Rx. Feels she has made some progress Pain Numeric Pain Scale: 5-Moderate Pain Location: Medial Location Body Site: Neck Pain Description: Pressure Comment: during sit to supine only Mental Status Patient Orientation: Normal For Age Transfers SCALE: Activities may be completed with or without assistive devices. 2-Qdttdygmqm-tumsrzf completes the activity by him/herself with no assistance from a helper. 5-Set-up or Clean-up Assistance-helper sets up or cleans up; patient completes activity. [place] assists only prior to or following the activity. 4-Supervision or Touching Assistance-helper provides verbal cues and/or touching/steadying and/or contact guard assistance as patient completes activity. Assistance may be provided throughout the activity or intermittently. 3-Partial/Moderate Assistance-helper does LESS THAN HALF the effort. [place] lifts, holds or supports trunk or limbs, but provides less than half the effort. 2-Substantial/Maximal Assistance-helper does MORE THAN HALF the effort. [place] lifts or holds trunk or limbs and provides more than half the effort. 2-Lwahlugxw-irlped does ALL the effort. Patient does none of the effort to complete the activity. Or, the assistance of 2 or more helpers is required for the patient to complete the activity. If activity was not attempted, code reason: 7-Patient Refused. 9-Not Applicable-not attempted and the patient did not perform the activity before the current illness, exacerbation or injury. 10-Not Attempted due to Environmental Limitations-(lack of equipment, weather restraints, etc.). 88-Not Attempted due to Medical Conditions or Safety Concerns. Roll Left & Right (QC): 6 Sit to Lying (QC): 4 Lying to Sitting/Side of Bed(Q: 5 Sit to Stand (QC): 5 (with raised level) Chair/Grx-ts-Krkch Xfer(QC): 5 Toilet Transfer (QC): 6 (with raised level) Weight Bearing Full Weight Bearing Full Weight Bearing Gait Training Does the Patient Walk?: Yes Walk 10 feet (QC): 5 Walk 50 ft with 2 Turns(QC): 5 Walk 150 ft (QC): 5 Gait Persons Needed: 1 Gait Assistive Device: FWW slow, flexed trunk, careful, no LOB Exercises Supine Ex: Bridging (x5), Short Arc Quads Supine Reps: 10 Standing: Hip Abduction, Hamstring curls, Heel/toe raises Standing Reps: 10 NuStep Minutes: 10 NuStep Workload: 5 Treatments toileted SBA Assessment Current Status: Good Progress discussed sup to sit TRFs, pt. sleeps in recliner at home but agreed to try this here PT Short Term Goals Short Term Goals Time Frame: Oct 17, 2019 Roll Left & Right: 6 Sit to lyin Lying to sitting on side of be: 6 Sit to stand: 4 Chair/adu-vm-kktnx transfer: 4 Walk 10 feet: 4 Walk 50 feet with two turns: 4 Walk 150 feet: 4 PT Timber Killer Goals Timber Killer Goals PT Shelter Goals Time Frame: Oct 31, 2019 Roll Left & Right (QC): 6 Sit to Lying (QC): 6 Lying-Sitting on Side/Bed(QC): 6 Sit to Stand (QC): 5 Chair/Mmu-no-Cbmgk Xfer(QC): 5 Toilet Transfer (QC): 5 Car Transfer (QC): 5 Does the Patient Walk: Yes Walk 10 feet (QC): 5 Walk 50ft with 2 Turns (QC): 5 Walk 150 ft (QC): 5 Walking 10ft on Uneven Surface: 5 1 Step (curb) (QC): 4 4 Steps (QC): 4 12 Steps (QC): 88 Picking up an Object (QC): 88 Wheel 50 feet with 2 turns (QC: 9 Wheel 150 feet: 9 PT Plan Treatment/Plan Treatment Plan: Continue Plan of Care Treatment Plan: Education, Functional Activity [place], Functional Strength, Grou p Therapy, Gait, Safety, Therapeutic Exercise, Transfers Treatment Duration: Oct 31, 2019 Frequency: At least 5 of 7 days/Wk (IRF) Estimated Hrs Per Day: 1.5 hours per day Patient and/or Family Agrees t: Yes Safety Risks/Education Patient Education: Gait Training, Transfer Techniques, Correct Positioning, Disease Process, Safety Issues Teaching Recipient: Patient Teaching Methods: Demonstration, Discussion Response to Teaching: Verbalize Understanding, Return Demonstration, Reinforcement Needed Time/GCodes Time In: 1000 Time Out: 1100 Total Billed Treatment Time: 60 Total Billed Treatment 1,EX30mn,GT15m,FA15m DARRYL NAM PROGRAMS DIRECTOR Oct 15, 2019 11:01
--- NOTE | 2019-10-15 12:06 | Physical Therapy Daily Note ---
PT Daily Note-Current Subjective Pt. agrees to Rx. Explains that she has steps at home with rail as well as another area that she puts whole FWW up on the step to ascend Pain Location: No Pain Reported Mental Status Patient Orientation: Normal For Age Transfers SCALE: Activities may be completed with or without assistive devices. 1-Mezvzureeu-hqlqkqo completes the activity by him/herself with no assistance from a helper. 5-Set-up or Clean-up Assistance-helper sets up or cleans up; patient completes activity. [place] assists only prior to or following the activity. 4-Supervision or Touching Assistance-helper provides verbal cues and/or touching/steadying and/or contact guard assistance as patient completes activity. Assistance may be provided throughout the activity or intermittently. 3-Partial/Moderate Assistance-helper does LESS THAN HALF the effort. [place] lifts, holds or supports trunk or limbs, but provides less than half the effort. 2-Substantial/Maximal Assistance-helper does MORE THAN HALF the effort. [place] lifts or holds trunk or limbs and provides more than half the effort. 4-Wfvtklrdj-wazxbv does ALL the effort. Patient does none of the effort to complete the activity. Or, the assistance of 2 or more helpers is required for the patient to complete the activity. If activity was not attempted, code reason: 7-Patient Refused. 9-Not Applicable-not attempted and the patient did not perform the activity before the current illness, exacerbation or injury. 10-Not Attempted due to Environmental Limitations-(lack of equipment, weather restraints, etc.). 88-Not Attempted due to Medical Conditions or Safety Concerns. Car Transfer (QC): 5 all sit to stand from raised surface SBA Weight Bearing Full Weight Bearing Full Weight Bearing Gait Training Gait Assistive Device: FWW [id number] SBA Stair Training Stair Training: Handrails/: 1 handrail #of Steps: 4 4 Steps (QC): 4 12 Steps (QC): 88 Stairs: Pattern: Step to slow with good sequence Exercises Seated Therapy Exercises: Ankle pumps, Sit to stand, Long arc quads, Hip flexion Seated Reps: 12 Treatments up in chair with lunch, desai at hand Assessment Current Status: Good Progress PT Short Term Goals Short Term Goals Time Frame: Oct 17, 2019 Roll Left & Right: 6 Sit to lyin Lying to sitting on side of be: 6 Sit to stand: 4 Chair/yni-cz-nuatt transfer: 4 Walk 10 feet: 4 Walk 50 feet with two turns: 4 Walk 150 feet: 4 PT Residential Framing Carpenter Goals Residential Framing Carpenter Goals PT Custodial Goals Time Frame: Oct 31, 2019 Roll Left & Right (QC): 6 Sit to Lying (QC): 6 Lying-Sitting on Side/Bed(QC): 6 Sit to Stand (QC): 5 Chair/Lvm-yr-Ijjfw Xfer(QC): 5 Toilet Transfer (QC): 5 Car Transfer (QC): 5 Does the Patient Walk: Yes Walk 10 feet (QC): 5 Walk 50ft with 2 Turns (QC): 5 Walk 150 ft (QC): 5 Walking 10ft on Uneven Surface: 5 1 Step (curb) (QC): 4 4 Steps (QC): 4 12 Steps (QC): 88 Picking up an Object (QC): 88 Wheel 50 feet with 2 turns (QC: 9 Wheel 150 feet: 9 PT Plan Treatment/Plan Treatment Plan: Continue Plan of Care Treatment Plan: Education, Functional Activity [place], Functional Strength, Group Therapy, Gait, Safety, Therapeutic Exercise, Transfers Treatment Duration: Oct 31, 2019 Frequency: At least 5 of 7 days/Wk (IRF) Estimated Hrs Per Day: 1.5 hours per day Patient and/or Family Agrees t: Yes Safety Risks/Education Patient Education: Gait Training, Transfer Techniques, Steps, Correct Positioning Teaching Recipient: Patient Teaching Methods: Demonstration, Discussion Response to Teaching: Verbalize Understanding, Return Demonstration, Reinforcement Needed Time/GCodes Time In: 1130 Time Out: 30 Total Billed Treatment Time: 30 Total Billed Treatment 1,FA20m,GT10m DARRYL NAM MANAGER TESTING Oct 15, 2019 12:06
[2019-10-15] MEDS: ENOXAPARIN 40 MG/0.4 ML (LOVENOX) SYR SC SCH (17:49)
[2019-10-15 18:04] VITALS: BP 114/68
[2019-10-15] MEDS: AMITRIPTYLINE 25 MG (ELAVIL) TAB PO SCH (21:12)
[2019-10-15] MEDS: ACETAMINOPHEN 325 MG TABLET PO PRN (21:12)
[2019-10-16 05:34] VITALS: BP 150/74
[2019-10-16] MEDS: POTASSIUM BICARB 20 MEQ (EFFER-K) TABLET PO SCH (06:40)
--- NOTE | 2019-10-16 07:11 | PM&R Progress Note ---
Subjective HPI/CC On Admission Date Seen by Provider: Oct 16, 2019 Time Seen by Provider: 10:00 Subjective/Events-last exam No major issues Bowels are moving okay Pain is well controlled No longer taking Lortab, only Tylenol No other issues Conferred with RN Reviewed therapy notes Checked labs and meds Review of Systems General: Fatigue Pulmonary: Dyspnea Musculoskeletal: leg pain Objective Exam Vital Signs Vital Signs Date Time Temp Pulse Resp B/P (MAP) Pulse Ox O2 Delivery O2 Flow Rate FiO2 10/16/19 18:00 37.0 86 18 121/64 (83) 96 Room Air Capillary Refill : Less Than 3 Seconds General Appearance: No Apparent Distress, WD/WN, Chronically ill, Thin HEENT: PERRL/EOMI, Normal ENT Inspection, Pharynx Normal Neck: Full Range of Motion, Normal Inspection, Non Tender, Supple, Carotid Bruit, Other (ecchymosis noted chest) Respiratory: Chest Non Tender, Lungs Clear, Normal Breath Sounds, No Accessory Muscle Use, No Respiratory Distress Cardiovascular: Regular Rate, Rhythm, No Edema, No Gallop, No JVD, No Murmur, Normal Peripheral Pulses Gastrointestinal: Normal Bowel Sounds, No Organomegaly, No Pulsatile Mass, Non Tender, Soft Back: Normal Inspection, No CVA Tenderness, No Vertebral Tenderness Extremity: Normal Capillary Refill, Normal Inspection, Normal Range of Motion, Non Tender, No Calf Tenderness, No Pedal Edema Neurologic/Psychiatric: Alert, Oriented x3, No Motor/Sensory Deficits, Normal Mood/Affect, Abnormal Gait, Motor Weakness (generalized weakness all extr emities) Skin: Normal Color, Warm/Dry, Ecchymosis (arms, legs, torso, scalp) Lymphatic: No Adenopathy Results/Procedures Lab Patient resulted labs reviewed. FIM Transfers Therapy Code Descriptions/Definitions Functional [place] Measure: 0=Not Assessed/NA 4=Minimal Assistance 1=Total Assistance 5=Supervision or Setup 2=Maximal Assistance 6=Modified [place] 3=Moderate Assistance 7=Complete IndependenceSCALE: Activities may be completed with or without assistive devices. 9-Hfphamlyir-aktsjpm completes the activity by him/herself with no assistance from a helper. 5-Set-up or Clean-up Assistance-helper sets up or cleans up; patient completes activity. [place] assists only prior to or following the activity. 4-Supervision or Touching Assistance-helper provides verbal cues and/or touching/steadying and/or contact guard assistance as patient completes activity. Assistance may be provided throughout the activity or intermittently. 3-Partial/Moderate Assistance-helper does LESS THAN HALF the effort. [place] lifts, holds or supports trunk or limbs, but provides less than half the effort. 2-Substantial/Maximal Assistance-helper does MORE THAN HALF the effort. [place] lifts or holds trunk or limbs and provides more than half the effort. 5-Egfhceyva-hxjzyu does ALL the effort. Patient does none of the effort to complete the activity. Or, the assistance of 2 or more helpers is required for the patient to complete the activity. If activity was not attempted, code reason: 7-Patient Refused. 9-Not Applicable-not attempted and the patient did not perform the activity before the current illness, exacerbation or injury. 10-Not Attempted due to Environmental Limitations-(lack of equipment, weather restraints, etc.). 88-Not Attempted due to Medical Conditions or Safety Concerns. Roll Left to Right (QC): 6 Sit to Lying (QC): 4 Sit to Stand (QC): 5 (with raised level) Chair/Ktu-hx-Lyjxn Xfer(QC): 5 Car Transfer (QC): 5 Gait Training Does the Patient Walk?: Yes Distance: 300' Walk 10 feet (QC): 5 Walk 50 ft with 2 Turns(QC): 5 Walk 150 ft (QC): 5 Walking 10ft/uneven surface-QC: 4 Gait Persons Needed: 1 Gait Assistive Device: FWW Wheelchair Training Does the Pt Use a Wheelchair?: No Wheel 50 ft with 2 turns (QC): 9 Wheel 150 ft (QC): 9 Stair Training Stair Training: Handrails/: 1 handrail #of Steps: 4 1 Step (curb) (QC): 4 4 Steps (QC): 4 12 Steps (QC): 88 Stairs: Pattern: Step to Balance Picking up an Object (QC): 88 ADL-Treatment Eating (QC): 6 (Pt able to set own meal up and uses regular utensils to eat.) Oral Hygiene (QC): 4 Bathing Location: L Arm, R Arm, L Upper Leg, R Upper Leg, L Lower Leg (including foot), R Lower Leg (including foot), Chest, Abdomen, Buttocks, Perineal Area Shower/Bathe Self (QC): 4 Upper Body Dressing (QC): 3 Lower Body Dressing (QC): 4 On/Off Footwear (QC): 5 Toileting Hygiene (QC): 4 (Supervision) Toilet Transfer (QC): 4 (Supervision) Assessment/Plan Assessment and Plan Assess & Plan/Chief Complaint Assessment: Recent fall with history of multiple falls Soft tissue contusions from fall Previous right clavicle fracture requiring IRF admit 11/2018 Hypertension 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 but does not wish to have work-up or treatment CAD with stents in place PVD with stents in place Lives alone CHF UTI's recurrent in type Elevated LFT's hx Neuropathy Plan: Tramadol for pain but does not effective for her so added Hydrocodone Inpatient rehab protocol Ambulation with walker for fall prevention Regain independence with ADLs Biotene for dry mouth Voltaren gel Potassium good (1) Fall on same level (2) Congestive heart failure (3) B12 deficiency (4) Recurrent UTI (5) Hyperlipemia (6) PVD (peripheral vascular disease) (7) CAD (coronary artery disease) (8) Coronary arteriosclerosis (9) Clavicle fracture (10) Hypertension (11) Lung mass (12) Peripheral vascular disease (1) Fall on same level Status: Acute (2) Congestive heart failure Status: Acute (3) B12 deficiency (4) Recurrent UTI (5) Hyperlipemia (6) PVD (peripheral vascular disease) (7) CAD (coronary artery disease) (8) Hypertension Status: Acute (9) Lung mass (10) Dizziness Status: Acute (11) Scalp hematoma Status: Acute (12) Scalp abrasion Status: Acute (13) Frequent falls Status: Acute COLLEEN OVIEDO DO Oct 16, 2019 07:10
[2019-10-16] MEDS: FUROSEMIDE 20 MG (LASIX) TAB PO SCH (07:59)
[2019-10-16] MEDS: MULTIVIT W/MINERALS TAB (THERAGRAN M) PO SCH (07:59)
[2019-10-16] MEDS: SACUBITRIL/VALSARTAN 24/26 MG (ENTRESTO) TABLET PO SCH ×2 (07:59→20:55)
[2019-10-16] MEDS: ASPIRIN 81 MG CHEW (CHILDREN'S ASA) PO SCH (07:59)
[2019-10-16] MEDS: CYANOCOBALAMIN 1,000 MCG (VITAMIN B-12) TABLET PO SCH (08:00)
[2019-10-16] MEDS: meTOproloL SUCCINATE 50 MG (TOPROL XL) TAB PO SCH ×2 (08:00→20:55)
[2019-10-16] MEDS: SPIRONOLACTONE 25 MG (ALDACTONE) TAB PO SCH (08:00)
[2019-10-16] MEDS: polyethylene glycoL POWDER 17 GM (MIRALAX) PACK PO SCH ×2 (08:02→20:57)
[2019-10-16] MEDS: SENNA W/DOCUSATE (SENOKOT S) TABLET PO SCH ×2 (08:03→20:57)
[2019-10-16 08:04] VITALS: BP 109/67
[2019-10-16] MEDS: DOCUSATE SODIUM 100 MG (COLACE) CAP PO SCH ×2 (08:04→20:55)
--- NOTE | 2019-10-16 09:11 | Occupational Ther Daily Note ---
OT Current Status-Daily Note Subjective Pt seated in recliner, agreeable to OT tx. She rated pain 1/10 overall in her head/back. Mental Status/Objective Patient Orientation: Normal For Age ADL-Treatment Therapy Code Descriptions/Definitions Functional [place] Measure: 0=Not Assessed/NA 4=Minimal Assistance 1=Total Assistance 5=Supervision or Setup 2=Maximal Assistance 6=Modified [place] 3=Moderate Assistance 7=Complete IndependenceSCALE: Activities may be completed with or without assistive devices. 3-Rvwdukdkuq-jzeluqp completes the activity by him/herself with no assistance from a helper. 5-Set-up or Clean-up Assistance-helper sets up or cleans up; patient completes activity. [place] assists only prior to or following the activity. 4-Supervision or Touching Assistance-helper provides verbal cues and/or touching/steadying and/or contact guard assistance as patient completes activity. Assistance may be provided throughout the activity or intermittently. 3-Partial/Moderate Assistance-helper does LESS THAN HALF the effort. [place] lifts, holds or supports trunk or limbs, but provides less than half the effort. 2-Substantial/Maximal Assistance-helper does MORE THAN HALF the effort. [place] lifts or holds trunk or limbs and provides more than half the effort. 0-Acbhuuasr-mmuvrn does ALL the effort. Patient does none of the effort to complete the activity. Or, the assistance of 2 or more helpers is required for the patient to complete the activity. If activity was not attempted, code reason: 7-Patient Refused. 9-Not Applicable-not attempted and the patient did not perform the activity before the current illness, exacerbation or injury. 10-Not Attempted due to Environmental Limitations-(lack of equipment, weather restraints, etc.). 88-Not Attempted due to Medical Conditions or Safety Concerns. Oral Hygiene (QC): 4 (SBA standing at sink) Shower/Bathe Self (QC): 7 Upper Body Dressing (QC): 4 (SBA, pt donned button up shirt. Pt placed left arm into sleeve from outside in, requring 1 verbal cue to properly thread left arm. Pt then able to finish buttoning/donning shirt.) Lower Body Dressing (QC): 4 (SBA during stand at FWW. Pt able to doff/marie pants and underwear) On/Off Footwear: 5 (Set up, pt able to doff socks, donning socks/shoes with increased time.) Toileting Hygiene (QC): 4 (SBA, pt able to manage clothing and hygiene.) Toilet Transfer (QC): 4 (SBA) Pt required increased time with all ADLS and functional activities due to decreased mobility/balance and slow movements. Other Treatment Pt seated in recliner. Pt ambulated to bathroom with SBA using FWW, she completed toileting, then stood at sink to brush her teeth and wash her face. Pt returned to the recliner and completed dressing. Pt then stated she forgot to brush her hair, returning to the bathroom to stand at sink to complete task with SBA. Pt ambulated to the therapy area and stood at arm bike, min resistance x5 mins in order to increase functional endurance and strength, taking rest breaks as needed during task. Pt reports increased pain in L shoulder with task, rating 3/10. Pt then sat at chair and placed 1" pegs into foam pegboard to increase fine motor strength. Pt alternated hands with placing with a 1lb wrist cuff on LUE only (pt unable to lift R arm off of table with 1 lb wrist cuff so no cuff worn during task). Pt placed x100 pegs with increased time. Pt returned to her room using FWW and SBA, transferring to recliner. Post OT session, pt seated in recliner, call light in reach and all needs met. Education OT Patient Education: Correct positioning, Energy conservation, Exercise program, Modified ADL techniques, Progress toward Goal/Update tx plan, Purpose of tx/functional activities, Safety issues, Transfer techniques Teaching Recipient: Patient Teaching Methods: Discussion Response to Teaching: Verbalize Understanding OT Longterm Goals Emergency Management System Director Goals Time Frame: Oct 31, 2019 Eating (QC): 6 Oral Hygiene (QC): 6 Toileting Hygiene (QC): 6 Shower/Bathe Self (QC): 6 Upper Body Dressing (QC): 6 Lower Body Dressing (QC): 6 On/Off Footwear (QC): 6 Additional Goals: 1-Demonstrate ADL Tasks, 2-Verbalize Understanding, 3-ImproveStrength/Desean 1=Demonstrate adherence to instructed precautions during ADL tasks. 2=Patient will verbalize/demonstrate understanding of assistive devices/modifications for ADL. 3=Patient will improve strength/tolerance for activity to enable patient to perform ADL's. OT Education/Plan Problem List/Assessment Assessment: Decreased Activ Tolerance, Decreased UE Strength, Impaired Funct Balance, Impaired I ADL's, Impaired Self-Care Skills, Restricted Funct UE ROM Discharge Recommendations Plan/Recommendations: Continue POC Treatment Plan/Plan of Care Patient would benefit from OT for education, treatment and training to promote independence in ADL's, mobility, safety and/or upper extremity function for ADL's. Plan of Care: ADL Retraining, Functional Mobility, Group Exercise/Act as Ind, UE Funct Exercise/Act Treatment Duration: Oct 31, 2019 Frequency: At least 5 of 7 days/Wk (IRF) Estimated Hrs Per Day: 1.5 hours per day Rehab Potential: Fair Time/GCodes Start Time: 08:00 Stop Time: 09:30 Total Time Billed (hr/min): 90 Billed Treatment Time 1, ADL 3 (45'), EX (8'), FA 2 (37') RENATA TY OT Oct 16, 2019 09:11
--- NOTE | 2019-10-16 10:32 | Physical Therapy Daily Note ---
PT Daily Note-Current Subjective Pt sitting in recliner upon arrival. Pt agrees to PT. Pain Location: No Pain Reported Mental Status Patient Orientation: Person, Place, Time, Situation Transfers SCALE: Activities may be completed with or without assistive devices. 0-Lambyfserm-hzobaxx completes the activity by him/herself with no assistance from a helper. 5-Set-up or Clean-up Assistance-helper sets up or cleans up; patient completes activity. [place] assists only prior to or following the activity. 4-Supervision or Touching Assistance-helper provides verbal cues and/or touching/steadying and/or contact guard assistance as patient completes activity. Assistance may be provided throughout the activity or intermittently. 3-Partial/Moderate Assistance-helper does LESS THAN HALF the effort. [place] lifts, holds or supports trunk or limbs, but provides less than half the effort. 2-Substantial/Maximal Assistance-helper does MORE THAN HALF the effort. [place] lifts or holds trunk or limbs and provides more than half the effort. 5-Bvcwggdig-ysqfit does ALL the effort. Patient does none of the effort to complete the activity. Or, the assistance of 2 or more helpers is required for the patient to complete the activity. If activity was not attempted, code reason: 7-Patient Refused. 9-Not Applicable-not attempted and the patient did not perform the activity bef ore the current illness, exacerbation or injury. 10-Not Attempted due to Environmental Limitations-(lack of equipment, weather r estraints, etc.). 88-Not Attempted due to Medical Conditions or Safety Concerns. Sit to Stand (QC): 6 (From raised or higher surfaces) Toilet Transfer (QC): 6 Weight Bearing Full Weight Bearing Full Weight Bearing Gait Training Does the Patient Walk?: Yes Distance: 300' Walk 10 feet (QC): 6 Walk 50 ft with 2 Turns(QC): 6 Walk 150 ft (QC): 6 Gait Assistive Device: FWW Pt asked to try another AD since she uses cane at home. NUCLEAR TEST TECHNICIAN gave instruction on LBQC. Pt will use this for community errands after DC per pt. Pt is only using this with Therapy at this time, FWW any other time. Wheelchair Training Does the Pt Use a Wheelchair?: No Exercises NuStep Minutes: 15 NuStep Workload: 5 Treatments Pt transfers from recliner to standing and ambulates in hallway. Pt uses NuStep before focusing on ambulating using LBQC in hallway. Pt returns to room to use restroom at end of Rx. Pt returns to rest at recliner with all needs met, call light in hand. Assessment Current Status: Good Progress Pt tolerated Rx well and is happy to be Ad ju in room so she can use restroom as needed. PT Short Term Goals Short Term Goals Time Frame: Oct 17, 2019 Roll Left & Right: 6 Sit to lyin Lying to sitting on side of be: 6 Sit to stand: 4 Chair/zyt-df-vfysn transfer: 4 Walk 10 feet: 4 Walk 50 feet with two turns: 4 Walk 150 feet: 4 PT Software Developer Consultant Goals [facility] Goals PT Software Developer Consultant Goals Time Frame: Oct 31, 2019 Roll Left & Right (QC): 6 Sit to Lying (QC): 6 Lying-Sitting on Side/Bed(QC): 6 Sit to Stand (QC): 5 Chair/Rup-or-Soaie Xfer(QC): 5 Toilet Transfer (QC): 5 Car Transfer (QC): 5 Does the Patient Walk: Yes Walk 10 feet (QC): 5 Walk 50ft with 2 Turns (QC): 5 Walk 150 ft (QC): 5 Walking 10ft on Uneven Surface: 5 1 Step (curb) (QC): 4 4 Steps (QC): 4 12 Steps (QC): 88 Picking up an Object (QC): 88 Wheel 50 feet with 2 turns (QC: 9 Wheel 150 feet: 9 PT Plan Problem List Problem List: Activity Tolerance, Gait, Transfer Treatment/Plan Treatment Plan: Continue Plan of Care Treatment Plan: Education, Functional Activity [place], Functional Strength, Group Therapy, Gait, Safety, Therapeutic Exercise, Transfers Treatment Duration: Oct 31, 2019 Frequency: At least 5 of 7 days/Wk (IRF) Estimated Hrs Per Day: 1.5 hours per day Patient and/or Family Agrees t: Yes Safety Risks/Education Patient Education: Gait Training, Transfer Techniques, Correct Positioning, Safety Issues Teaching Recipient: Patient Teaching Methods: Discussion Response to Teaching: Verbalize Understanding Time/GCodes Time In: 930 Time Out: 1030 Total Billed Treatment Time: 60 Total Billed Treatment 1, GT x2 (30m), EX (15m) & FA (15m) IRENE DE LUNA NUCLEAR TEST TECHNICIAN Oct 16, 2019 10:32
--- NOTE | 2019-10-16 10:45 | NUR ---
PER PHYSICAL THERAPY, PATIENT MAY BE UP AD SHAWN IN HER ROOM AND IN THE HALLS WITH A FWW.
--- NOTE | 2019-10-16 13:01 | Physical Therapy Daily Note ---
PT Daily Note-Current Subjective Pt sitting in recliner upon arrival. Pt agrees to PT. Pain Location: No Pain Reported Mental Status Patient Orientation: Person, Place, Time, Situation Transfers SCALE: Activities may be completed with or without assistive devices. 6-Embddrxert-qvbtmqt completes the activity by him/herself with no assistance from a helper. 5-Set-up or Clean-up Assistance-helper sets up or cleans up; patient completes activity. [place] assists only prior to or following the activity. 4-Supervision or Touching Assistance-helper provides verbal cues and/or touching/steadying and/or contact guard assistance as patient completes activity. Assistance may be provided throughout the activity or intermittently. 3-Partial/Moderate Assistance-helper does LESS THAN HALF the effort. [place] lifts, holds or supports trunk or limbs, but provides less than half the effort. 2-Substantial/Maximal Assistance-helper does MORE THAN HALF the effort. [place] lifts or holds trunk or limbs and provides more than half the effort. 2-Dobveeiji-vgdtqw does ALL the effort. Patient does none of the effort to complete the activity. Or, the assistance of 2 or more helpers is required for the patient to complete the activity. If activity was not attempted, code reason: 7-Patient Refused. 9-Not Applicable-not attempted and the patient did not perform the activity bef ore the current illness, exacerbation or injury. 10-Not Attempted due to Environmental Limitations-(lack of equipment, weather r estraints, etc.). 88-Not Attempted due to Medical Conditions or Safety Concerns. Sit to Stand (QC): 6 Toilet Transfer (QC): 5 Weight Bearing Full Weight Bearing Full Weight Bearing Gait Training Does the Patient Walk?: Yes Distance: 150' Walk 10 feet (QC): 4 Walk 50 ft with 2 Turns(QC): 4 Walk 150 ft (QC): 4 Gait Persons Needed: 1 Gait Assistive Device: Cane Large Base Quad Pt a little more unsteady with LBQC but pt wants practice for when she runs errands because she will be alone. Wheelchair Training Does the Pt Use a Wheelchair?: No Treatments Pt transfers from recliner and uses restroom before ambulating in hallway. Pt returns to room at end of Rx to rest in recliner with all needs met, call light in hand. Assessment Current Status: Good Progress Pt will continue to practice with LBQC with Therapy before DC. PT Short Term Goals Short Term Goals Time Frame: Oct 17, 2019 Roll Left & Right: 6 Sit to lyin Lying to sitting on side of be: 6 Sit to stand: 4 Chair/wgb-ea-mhhtl transfer: 4 Walk 10 feet: 4 Walk 50 feet with two turns: 4 Walk 150 feet: 4 PT [facility] Goals [facility] Goals PT Blast Furnace Keeper Helper Goals Time Frame: Oct 31, 2019 Roll Left & Right (QC): 6 Sit to Lying (QC): 6 Lying-Sitting on Side/Bed(QC): 6 Sit to Stand (QC): 5 Chair/Qtz-oi-Jytnb Xfer(QC): 5 Toilet Transfer (QC): 5 Car Transfer (QC): 5 Does the Patient Walk: Yes Walk 10 feet (QC): 5 Walk 50ft with 2 Turns (QC): 5 Walk 150 ft (QC): 5 Walking 10ft on Uneven Surface: 5 1 Step (curb) (QC): 4 4 Steps (QC): 4 12 Steps (QC): 88 Picking up an Object (QC): 88 Wheel 50 feet with 2 turns (QC: 9 Wheel 150 feet: 9 PT Plan Problem List Problem List: Activity Tolerance, Functional Strength, Safety, Transfer Treatment/Plan Treatment Plan: Continue Plan of Care Treatment Plan: Education, Functional Activity [place], Functional Strength, Group Therapy, Gait, Safety, Therapeutic Exercise, Transfers Treatment Duration: Oct 31, 2019 Frequency: At least 5 of 7 days/Wk (IRF) Estimated Hrs Per Day: 1.5 hours per day Patient and/or Family Agrees t: Yes Safety Risks/Education Patient Education: Gait Training, Transfer Techniques, Correct Positioning, Safety Issues Teaching Recipient: Patient Teaching Methods: Discussion Response to Teaching: Verbalize Understanding Time/GCodes Time In: 1130 Time Out: 1200 Total Billed Treatment Time: 30 Total Billed Treatment 1, FA (10m) & GT (20m) IRENE DE LUNA ACID PURIFICATION EQUIPMENT OPERATOR Oct 16, 2019 13:01
--- NOTE | 2019-10-16 14:06 | NUR ---
CM/SS CONCURRENT DOCUMENTATION Reviewed post hospital care plan with patient in relation to patient care conference tomorrow. She reports positive improvements day by day. Previous barrier to discharge planning was that patient was home alone without a local network of consistent/scheduled support or monitor. Happy to report she has obtained a [employer] type system for use once home and that she also vows to carry her cell phone with her when leaving her house. Patient has notable swelling/bruising on the top rear of her head that has spread down her neck and, she reports, down on her upper chest. HHC: Patient agrees to participate with [facility] services, PT to assess and treat in her home environment and RN if indicated. Patient has history with [facility] and has requested referral be completed with them, Medicare Compare left for her review. DME: Patient states therapy team working with her on using a quad cane and that she is trying to adjust. She has one at home, she indicates no new DME needs at this time. Patient indicates readiness for discharge later in the week unless unforeseen changes arise.
[2019-10-16] MEDS: ENOXAPARIN 40 MG/0.4 ML (LOVENOX) SYR SC SCH (17:54)
[2019-10-16 18:00] VITALS: BP 121/64
--- NOTE | 2019-10-16 19:07 | NUR ---
bedside report received from RODY KHAN, assume care of pt
[2019-10-16 20:50] VITALS: BP 135/72
[2019-10-16] MEDS: AMITRIPTYLINE 25 MG (ELAVIL) TAB PO SCH (20:55)
--- NOTE | 2019-10-16 20:55 | NUR ---
pt refused miralax & Senokot, pt took Colace, v/s [id number].
[2019-10-17] MEDS: ACETAMINOPHEN 325 MG TABLET PO PRN (03:44)
--- NOTE | 2019-10-17 03:44 | NUR ---
c/o neck & back pain level 5/10 on numeric scale, pt requests Tylenol, Tylenol 650mg given
--- NOTE | 2019-10-17 04:20 | NUR ---
rates pain level 3/10 on numeric scale
[2019-10-17 05:18] VITALS: BP 150/79
[2019-10-17] MEDS: POTASSIUM BICARB 20 MEQ (EFFER-K) TABLET PO SCH (06:33)
[2019-10-17] MEDS: SPIRONOLACTONE 25 MG (ALDACTONE) TAB PO SCH (08:55)
[2019-10-17] MEDS: CYANOCOBALAMIN 1,000 MCG (VITAMIN B-12) TABLET PO SCH (08:56)
[2019-10-17] MEDS: FUROSEMIDE 20 MG (LASIX) TAB PO SCH (08:56)
[2019-10-17] MEDS: ASPIRIN 81 MG CHEW (CHILDREN'S ASA) PO SCH (08:57)
[2019-10-17] MEDS: MULTIVIT W/MINERALS TAB (THERAGRAN M) PO SCH (08:57)
[2019-10-17] MEDS: SENNA W/DOCUSATE (SENOKOT S) TABLET PO SCH ×2 (08:57→21:17)
[2019-10-17] MEDS: meTOproloL SUCCINATE 50 MG (TOPROL XL) TAB PO SCH ×2 (08:57→21:15)
[2019-10-17] MEDS: polyethylene glycoL POWDER 17 GM (MIRALAX) PACK PO SCH ×2 (08:57→21:16)
[2019-10-17] MEDS: SACUBITRIL/VALSARTAN 24/26 MG (ENTRESTO) TABLET PO SCH ×2 (08:57→21:15)
[2019-10-17] MEDS: DOCUSATE SODIUM 100 MG (COLACE) CAP PO SCH ×2 (08:57→21:17)
--- NOTE | 2019-10-17 09:20 | Occupational Ther Daily Note ---
OT Current Status-Daily Note Subjective Pt seated in recliner, stating she is doing okay today. She is hoping to be able to go home soon. Mental Status/Objective Patient Orientation: Normal For Age ADL-Treatment Therapy Code Descriptions/Definitions Functional [place] Measure: 0=Not Assessed/NA 4=Minimal Assistance 1=Total Assistance 5=Supervision or Setup 2=Maximal Assistance 6=Modified [place] 3=Moderate Assistance 7=Complete IndependenceSCALE: Activities may be completed with or without assistive devices. 2-Xcbaytpxuq-okmaycf completes the activity by him/herself with no assistance from a helper. 5-Set-up or Clean-up Assistance-helper sets up or cleans up; patient completes activity. [place] assists only prior to or following the activity. 4-Supervision or Touching Assistance-helper provides verbal cues and/or touch ing/steadying and/or contact guard assistance as patient completes activity. Assistance may be provided throughout the activity or intermittently. 3-Partial/Moderate Assistance-helper does LESS THAN HALF the effort. [place] lifts, holds or supports trunk or limbs, but provides less than half the effort. 2-Substantial/Maximal Assistance-helper does MORE THAN HALF the effort. [place] lifts or holds trunk or limbs and provides more than half the effort. 8-Bnkxglwin-euglfp does ALL the effort. Patient does none of the effort to complete the activity. Or, the assistance of 2 or more helpers is required for the patient to complete the activity. If activity was not attempted, code reason: 7-Patient Refused. 9-Not Applicable-not attempted and the patient did not perform the activity before the current illness, exacerbation or injury. 10-Not Attempted due to Environmental Limitations-(lack of equipment, weather restraints, etc.). 88-Not Attempted due to Medical Conditions or Safety Concerns. Eating (QC): 6 (per pt report) Oral Hygiene (QC): 6 (per pt report, she was able to brush her teeth independently this morning. She is currently up ad ju in her room with FWW.) Shower/Bathe Self (QC): 4 (SBA during stand at [facility] in order to wash buttocks and periarea. Pt able to wash all other parts seated on SC) Upper Body Dressing (QC): 5 (set up assist, pt able to doff hospital gown and don button up shirt ) Lower Body Dressing (QC): 4 (Pt able to doff/marie underwear and pants, SBA during stand at FWW for pant hike) On/Off Footwear: 5 (set up, pt able to doff gripper socks and don socks and shoes with AE as needed.) Toileting Hygiene (QC): 6 (Pt IND with managing clothes and hygiene) Toilet Transfer (QC): 6 Pt required increased time with all ADLs due to slow movements Other Treatment Pt seated in recliner, agreeable to OT tx with focus on ADLs. She reports she has already been up to use the restroom and brush her teeth without difficulty. Pt is currently up ad ju in her room using FWW. Pt transferred from recliner, ambulating to bathroom and onto shower bench. She then completed showering and donning underwear and shirt seated on SC. Pt then used FWW to stand at sink in order to brush her hair IND. Pt returned to the recliner in order to complete dressing tasks including donning pants, socks/shoes, and buttoning her shirt. Nurse present to give pt meds, pt able to take pills and brink cup to her mouth without difficulty. Pt then used FWW in order to ambulate to therapy area. In order to increase BUE strength, fine motor strength and coordination, and functional endurance, pt placed x100, 1" pegs into foam pegboard. After completing task, pt returned to her room, requesting to use the restroom, then she transferred to the recliner. Post OT session, pt seated in recliner, call light in reach and all needs met. Education OT Patient Education: Correct positioning, Energy conservation, Modified ADL techniques, Progress toward Goal/Update tx plan, Purpose of tx/functional activities, Safety issues, Transfer techniques Teaching Recipient: Patient Teaching Methods: Discussion Response to Teaching: Verbalize Understanding OT Trials Manager Goals [facility] Goals Time Frame: Oct 31, 2019 Eating (QC): 6 Oral Hygiene (QC): 6 Toileting Hygiene (QC): 6 Shower/Bathe Self (QC): 6 Upper Body Dressing (QC): 6 Lower Body Dressing (QC): 6 On/Off Footwear (QC): 6 Additional Goals: 1-Demonstrate ADL Tasks, 2-Verbalize Understanding, 3- ImproveStrength/Desean 1=Demonstrate adherence to instructed precautions during ADL tasks. 2=Patient will verbalize/demonstrate understanding of assistive devices/modifications for ADL. 3=Patient will improve strength/tolerance for activity to enable patient to perform ADL's. OT Education/Plan Problem List/Assessment Assessment: Decreased Activ Tolerance, Decreased UE Strength, Impaired I ADL's, Impaired Self-Care Skills Discharge Recommendations Plan/Recommendations: Continue POC Treatment Plan/Plan of Care Patient would benefit from OT for education, treatment and training to promote independence in ADL's, mobility, safety and/or upper extremity function for ADL's. Plan of Care: ADL Retraining, Functional Mobility, Group Exercise/Act as Ind, UE Funct Exercise/Act Treatment Duration: Oct 31, 2019 Frequency: At least 5 of 7 days/Wk (IRF) Estimated Hrs Per Day: 1.5 hours per day Rehab Potential: Fair Time/GCodes Start Time: 08:00 Stop Time: 09:30 Total Time Billed (hr/min): 90 Billed Treatment Time 1, ADL 4 (60'), FA 2 (30') RENATA TY OT Oct 17, 2019 09:20
--- NOTE | 2019-10-17 09:38 | PM&R Progress Note ---
Subjective HPI/CC On Admission Date Seen by Provider: Oct 17, 2019 Time Seen by Provider: 09:45 Subjective/Events-last exam Pt ad-ju now with walker Bowels are loose now so holding laxatives Feels like the potassium supplement is causing her gastrointestinal issues so will hold those today BP stable at 124/77 Overall dramatically improved Conferred with RN Reviewed therapy notes Checked labs and meds Review of Systems General: Fatigue Neurological: Weakness Objective Exam Vital Signs Vital Signs Date Time Temp Pulse Resp B/P (MAP) Pulse Ox O2 Delivery O2 Flow Rate FiO2 10/18/19 05:17 36.3 82 16 148/78 (101) 96 Room Air Capillary Refill : Less Than 3 Seconds General Appearance: No Apparent Distress, WD/WN, Chronically ill, Thin HEENT: PERRL/EOMI, Normal ENT Inspection, Pharynx Normal Neck: Full Range of Motion, Normal Inspection, Non Tender, Supple, Carotid Bruit, Other (ecchymosis noted chest) Respiratory: Chest Non Tender, Lungs Clear, Normal Breath Sounds, No Accessory Muscle Use, No Respiratory Distress Cardiovascular: Regular Rate, Rhythm, No Edema, No Gallop, No JVD, No Murmur, Normal Peripheral Pulses Gastrointestinal: Normal Bowel Sounds, No Organomegaly, No Pulsatile Mass, Non Tender, Soft Back: Normal Inspection, No CVA Tenderness, No Vertebral Tenderness Extremity: Normal Capillary Refill, Normal Inspection, Normal Range of Motion, Non Tender, No Calf Tenderness, No Pedal Edema Neurologic/Psychiatric: Alert, Oriented x3, No Motor/Sensory Deficits, Normal Mood/Affect, Abnormal Gait, Motor Weakness (generalized weakness all extremities) Skin: Normal Color, Warm/Dry, Ecchymosis (arms, legs, torso, scalp) Lymphatic: No Adenopathy Results/Procedures Lab Patient resulted labs reviewed. FIM Transfers Therapy Code Descriptions/Definitions Functional [place] Measure: 0=Not Assessed/NA 4=Minimal Assistance 1=Total Assistance 5=Supervision or Setup 2=Maximal Assistance 6=Modified [place] 3=Moderate Assistance 7=Complete IndependenceSCALE: Activities may be completed with or without assistive devices. 2-Usjzypfroa-jgozzio completes the activity by him/herself with no assistance from a helper. 5-Set-up or Clean-up Assistance-helper sets up or cleans up; patient completes activity. [place] assists only prior to or following the activity. 4-Supervision or Touching Assistance-helper provides verbal cues and/or touching/steadying and/or contact guard assistance as patient completes activity. Assistance may be provided throughout the activity or intermittently. 3-Partial/Moderate Assistance-helper does LESS THAN HALF the effort. [place] lifts, holds or supports trunk or limbs, but provides less than half the effort. 2-Substantial/Maximal Assistance-helper does MORE THAN HALF the effort. [place] lifts or holds trunk or limbs and provides more than half the effort. 5-Dgpifkwhu-pozrjf does ALL the effort. Patient does none of the effort to complete the activity. Or, the assistance of 2 or more helpers is required for the patient to complete the activity. If activity was not attempted, code reason: 7-Patient Refused. 9-Not Applicable-not attempted and the patient did not perform the activity before the current illness, exacerbation or injury. 10-Not Attempted due to Environmental Limitations-(lack of equipment, weather restraints, etc.). 88-Not Attempted due to Medical Conditions or Safety Concerns. Roll Left to Right (QC): 6 Sit to Lying (QC): 4 Sit to Stand (QC): 6 Chair/Swc-tq-Wzjxc Xfer(QC): 5 Car Transfer (QC): 5 Gait Training Does the Patient Walk?: Yes Distance: 150' Walk 10 feet (QC): 4 Walk 50 ft with 2 Turns(QC): 4 Walk 150 ft (QC): 4 Walking 10ft/uneven surface-QC: 4 Gait Persons Needed: 1 Gait Assistive Device: Cane Large Base Quad Wheelchair Training Does the Pt Use a Wheelchair?: No Wheel 50 ft with 2 turns (QC): 9 Wheel 150 ft (QC): 9 Stair Training Stair Training: Handrails/: 1 handrail #of Steps: 4 1 Step (curb) (QC): 4 4 Steps (QC): 4 12 Steps (QC): 88 Stairs: Pattern: Step to Balance Picking up an Object (QC): 88 ADL-Treatment Eating (QC): 6 (per pt report) Oral Hygiene (QC): 6 (per pt report, she was able to brush her teeth independently this morning. She is currently up ad ju in her room with FWW.) Bathing Location: L Arm, R Arm, L Upper Leg, R Upper Leg, L Lower Leg (including foot), R Lower Leg (including foot), Chest, Abdomen, Buttocks, Perineal Area Shower/Bathe Self (QC): 4 (SBA during stand at [facility] in order to wash buttocks and periarea. Pt able to wash all other parts seated on SC) Upper Body Dressing (QC): 5 (set up assist, pt able to doff hospital gown and don button up shirt ) Lower Body Dressing (QC): 4 (Pt able to doff/marie underwear and pants, SBA during stand at [facility] for pant hike) On/Off Footwear (QC): 5 (set up, pt able to doff gripper socks and don socks and shoes with AE as needed.) Toileting Hygiene (QC): 6 (per pt report she has been able to get up to the bathroom without difficulty. She is ad ju in her room using FWW) Toilet Transfer (QC): 6 (per pt report she has been able to get up to the bathroom without difficulty. 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 but does not wish to have work-up or treatment CAD with stents in place PVD with stents in place Lives alone CHF UTI's recurrent in type Elevated LFT's hx Neuropathy Plan: Tramadol for pain but does not effective for her so added Hydrocodone Inpatient rehab protocol Ambulation with walker for fall prevention Regain independence with ADLs Biotene for dry mouth Voltaren gel Potassium good Discharge soon (1) Fall on same level (2) Congestive heart failure (3) B12 deficiency (4) Recurrent UTI (5) Hyperlipemia (6) PVD (peripheral vascular disease) (7) CAD (coronary artery disease) (8) Coronary arteriosclerosis (9) Clavicle fracture (10) Hypertension (11) Lung mass (12) Peripheral vascular disease (1) Fall on same level Status: Acute (2) Congestive heart failure Status: Acute (3) B12 deficiency (4) Recurrent UTI (5) Hyperlipemia (6) PVD (peripheral vascular disease) (7) CAD (coronary artery disease) (8) Hypertension Status: Acute (9) Lung mass (10) Dizziness Status: Acute (11) Scalp hematoma Status: Acute (12) Scalp abrasion Status: Acute (13) Frequent falls Status: Acute COLLEEN OVIEDO DO Oct 17, 2019 09:38
--- NOTE | 2019-10-17 11:32 | Physical Therapy Daily Note ---
PT Daily Note-Current Subjective Pt in recliner upon arrival. Pt states pain in R knee. Pt agrees to Rx. Pain Location: Right Location Body Site: Knee Pain Description: Ache, Tightness Comment: Pt states pain but didn't rate it. Mental Status Patient Orientation: Person, Place, Time, Situation Transfers SCALE: Activities may be completed with or without assistive devices. 6-Ncxgcrdfnq-zdfucfk completes the activity by him/herself with no assistance from a helper. 5-Set-up or Clean-up Assistance-helper sets up or cleans up; patient completes activity. [place] assists only prior to or following the activity. 4-Supervision or Touching Assistance-helper provides verbal cues and/or touching/steadying and/or contact guard assistance as patient completes activity. Assistance may be provided throughout the activity or intermittently. 3-Partial/Moderate Assistance-helper does LESS THAN HALF the effort. [place] li fts, holds or supports trunk or limbs, but provides less than half the effort. 2-Substantial/Maximal Assistance-helper does MORE THAN HALF the effort. [place] lifts or holds trunk or limbs and provides more than half the effort. 8-Cdgzlcnnn-pxrgrn does ALL the effort. Patient does none of the effort to complete the activity. Or, the assistance of 2 or more helpers is required for the patient to complete the activity. If activity was not attempted, code reason: 7-Patient Refused. 9-Not Applicable-not attempted and the patient did not perform the activity before the current illness, exacerbation or injury. 10-Not Attempted due to Environmental Limitations-(lack of equipment, weather restraints, etc.). 88-Not Attempted due to Medical Conditions or Safety Concerns. Sit to Stand (QC): 6 (from raised surface) Toilet Transfer (QC): 6 (from raised surfa) Weight Bearing Full Weight Bearing Full Weight Bearing Gait Training Does the Patient Walk?: Yes Distance: 150', 100' Walk 10 feet (QC): 4 Walk 50 ft with 2 Turns(QC): 4 Walk 150 ft (QC): 4 Gait Persons Needed: 1 Gait Assistive Device: Cane Single Point Pt felt uncomfortable using LBQC, trialed SBQC and SPC. Pt felt most comfortable with SPC and had no LOB Wheelchair Training Does the Pt Use a Wheelchair?: No Stair Training Stair Training: Handrails/: 1 handrail #of Steps: 4 1 Step (curb) (QC): 4 4 Steps (QC): 4 Stairs: Pattern: Step to Pt used R side hand rail with both hands Exercises Seated Therapy Exercises: Long arc quads Seated Reps: 10 Standing: Hip Abduction, Hamstring curls, Heel/toe raises, Marching Standing Reps: 10 NuStep Minutes: 15 NuStep Workload: 5 Treatments Pt sit to stand and used restroom prior to using NuStep in gym. Pt amb stairs then trialed amb w SPC. Pt returned to room and used restroom at end of Rx. Pt left in recliner with all needs met, call light in hand. Assessment Current Status: Good Progress Pt tolerated rx well and felt more comfortable and stable with SPC. PT Short Term Goals Short Term Goals Time Frame: Oct 17, 2019 Roll Left & Right: 6 Sit to lyin Lying to sitting on side of be: 6 Sit to stand: 4 Chair/uzk-tc-inrqj transfer: 4 Walk 10 feet: 4 Walk 50 feet with two turns: 4 Walk 150 feet: 4 PT Snf Goals Snf Goals PT Snf Goals Time Frame: Oct 31, 2019 Roll Left & Right (QC): 6 Sit to Lying (QC): 6 Lying-Sitting on Side/Bed(QC): 6 Sit to Stand (QC): 5 Chair/Snx-vt-Ssmvr Xfer(QC): 5 Toilet Transfer (QC): 5 Car Transfer (QC): 5 Does the Patient Walk: Yes Walk 10 feet (QC): 5 Walk 50ft with 2 Turns (QC): 5 Walk 150 ft (QC): 5 Walking 10ft on Uneven Surface: 5 1 Step (curb) (QC): 4 4 Steps (QC): 4 12 Steps (QC): 88 Picking up an Object (QC): 88 Wheel 50 feet with 2 turns (QC: 9 Wheel 150 feet: 9 PT Plan Problem List Problem List: Activity Tolerance, Gait Treatment/Plan Treatment Plan: Continue Plan of Care Treatment Plan: Education, Functional Activity [place], Functional Strength, Group Therapy, Gait, Safety, Therapeutic Exercise, Transfers Treatment Duration: Oct 31, 2019 Frequency: At least 5 of 7 days/Wk (IRF) Estimated Hrs Per Day: 1.5 hours per day Patient and/or Family Agrees t: Yes Safety Risks/Education Patient Education: Gait Training, Transfer Techniques, Steps, Correct Positioning, Safety Issues Teaching Recipient: Patient Teaching Methods: Demonstration, Discussion Response to Teaching: Verbalize Understanding, Return Demonstration Time/GCodes Time In: 1000 Time Out: 1130 Total Billed Treatment Time: 90 Total Billed Treatment 1, GT x3 (50m), Ex x2 (30m), FA (10m) IRENE DE LUNA DRAGLINE MECHANIC Oct 17, 2019 11:32
--- NOTE | 2019-10-17 15:25 | NUR ---
CM/SS PATIENT CARE CONFERENCE Reviewed Summary with patient and she is in agreement with target discharge of Tuesday, October 22, 2019. Team has recommended HHC for PT to assess functional capacity at home. PT continues to practice patient with single point cane since she is more comfortable with it than the quad cane. Team plans to move patient to the Independent Living room tomorrow and continue with activity tolerance and balance/strength training. HHC: Patient selected [facility], referral initiated.
[2019-10-17 18:00] VITALS: BP 125/54
[2019-10-17] MEDS: ENOXAPARIN 40 MG/0.4 ML (LOVENOX) SYR SC SCH (18:30)
--- NOTE | 2019-10-17 19:09 | NUR ---
bedside report received from ANNI KHAN, assume care of pt
[2019-10-17 21:11] VITALS: BP 134/57
[2019-10-17] MEDS: AMITRIPTYLINE 25 MG (ELAVIL) TAB PO SCH (21:15)
--- NOTE | 2019-10-17 21:15 | NUR ---
pt refused Zeus, ileana & Becca, v/s [id number]/[phone], remains up in the chair
[2019-10-18 05:17] VITALS: BP 148/78
--- NOTE | 2019-10-18 06:31 | PM&R Progress Note ---
Subjective HPI/CC On Admission Date Seen by Provider: Oct 18, 2019 Time Seen by Provider: 10:00 Subjective/Events-last exam Will DC potassium No issues reported No pain is reported Ecchymosis from the scalp hematoma is moving down her chest wall but no other new issues Bowels are moving well Conferred with RN Reviewed therapy notes Checked labs and meds Review of Systems General: Fatigue Musculoskeletal: back pain Objective Exam Vital Signs Vital Signs Date Time Temp Pulse Resp B/P (MAP) Pulse Ox O2 Delivery O2 Flow Rate FiO2 10/19/19 05:40 36.8 85 20 147/73 (97) 90 Room Air Capillary Refill : Less Than 3 Seconds General Appearance: No Apparent Distress, WD/WN, Chronically ill, Thin HEENT: PERRL/EOMI, Normal ENT Inspection, Pharynx Normal Neck: Full Range of Motion, Normal Inspection, Non Tender, Supple, Carotid Bruit, Other (ecchymosis noted chest) Respiratory: Chest Non Tender, Lungs Clear, Normal Breath Sounds, No Accessory Muscle Use, No Respiratory Distress Cardiovascular: Regular Rate, Rhythm, No Edema, No Gallop, No JVD, No Murmur, Normal Peripheral Pulses Gastrointestinal: Normal Bowel Sounds, No Organomegaly, No Pulsatile Mass, Non Tender, Soft Back: Normal Inspection, No CVA Tenderness, No Vertebral Tenderness Extremity: Normal Capillary Refill, Normal Inspection, Normal Range of Motion, Non Tender, No Calf Tenderness, No Pedal Edema Neurologic/Psychiatric: Alert, Oriented x3, No Motor/Sensory Deficits, Normal Mood/Affect, Abnormal Gait, Motor Weakness (generalized weakness all extremities) Skin: Normal Color, Warm/Dry, Ecchymosis (arms, legs, torso, scalp) Lymphatic: No Adenopathy Results/Procedures Lab Laboratory Tests 10/19/19 05:00 Patient resulted labs reviewed. FIM Transfers Therapy Code Descriptions/Definitions Functional [place] Measure: 0=Not Assessed/NA 4=Minimal Assistance 1=Total Assistance 5=Supervision or Setup 2=Maximal Assistance 6=Modified [place] 3=Moderate Assistance 7=Complete IndependenceSCALE: Activities may be completed with or without assistive devices. 8-Lqmyouxluu-ivvovrn completes the activity by him/herself with no assistance from a helper. 5-Set-up or Clean-up Assistance-helper sets up or cleans up; patient completes activity. [place] assists only prior to or following the activity. 4-Supervision or Touching Assistance-helper provides verbal cues and/or touching/steadying and/or contact guard assistance as patient completes activity. Assistance may be provided throughout the activity or intermittently. 3-Partial/Moderate Assistance-helper does LESS THAN HALF the effort. [place] lifts, holds or supports trunk or limbs, but provides less than half the effort. 2-Substantial/Maximal Assistance-helper does MORE THAN HALF the effort. [place] lifts or holds trunk or limbs and provides more than half the effort. 7-Dobydkxir-fqgldx does ALL the effort. Patient does none of the effort to complete the activity. Or, the assistance of 2 or more helpers is required for the patient to complete the activity. If activity was not attempted, code reason: 7-Patient Refused. 9-Not Applicable-not attempted and the patient did not perform the activity before the current illness, exacerbation or injury. 10-Not Attempted due to Environmental Limitations-(lack of equipment, weather r estraints, etc.). 88-Not Attempted due to Medical Conditions or Safety Concerns. Roll Left to Right (QC): 6 Sit to Lying (QC): 4 Sit to Stand (QC): 6 (from raised surface) Chair/Srq-al-Zhoxb Xfer(QC): 5 Car Transfer (QC): 5 Gait Training Does the Patient Walk?: Yes Distance: 150', 100' Walk 10 feet (QC): 4 Walk 50 ft with 2 Turns(QC): 4 Walk 150 ft (QC): 4 Walking 10ft/uneven surface-QC: 4 Gait Persons Needed: 1 Gait Assistive Device: Cane Single Point Wheelchair Training Does the Pt Use a Wheelchair?: No Wheel 50 ft with 2 turns (QC): 9 Wheel 150 ft (QC): 9 Stair Training Stair Training: Handrails/: 1 handrail #of Steps: 4 1 Step (curb) (QC): 4 4 Steps (QC): 4 12 Steps (QC): 88 Stairs: Pattern: Step to Balance Picking up an Object (QC): 88 ADL-Treatment Eating (QC): 6 (per pt report) Oral Hygiene (QC): 6 (per pt report, she was able to brush her teeth independently this morning. She is currently up ad ju in her room with W.) Bathing Location: L Arm, R Arm, L Upper Leg, R Upper Leg, L Lower Leg (including foot), R Lower Leg (including foot), Chest, Abdomen, Buttocks, Perineal Area Shower/Bathe Self (QC): 4 (SBA during stand at [facility] in order to wash buttocks and periarea. Pt able to wash all other parts seated on SC) Upper Body Dressing (QC): 5 (set up assist, pt able to doff hospital gown and don button up shirt ) Lower Body Dressing (QC): 4 (Pt able to doff/marie underwear and pants, SBA during stand at [facility] for pant hike) On/Off Footwear (QC): 5 (set up, pt able to doff gripper socks and don socks and shoes with AE as needed.) Toileting Hygiene (QC): 6 (Pt IND with managing clothes and hygiene) Toilet Transfer (QC): 6 Assessment/Plan Assessment and Plan Assess & Plan/Chief Complaint Assessment: Recent fall with history of multiple falls Soft tissue contusions from fall Previous right clavicle fracture requiring IRF admit 11/2018 Hypertension 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 but does not wish to have work-up or treatment CAD with stents in place PVD with stents in place Lives alone CHF UTI's recurrent in type Elevated LFT's hx Neuropathy Plan: Tramadol for pain but does not effective for her so added Hydrocodone Inpatient rehab protocol Ambulation with walker for fall prevention Regain independence with ADLs Biotene for dry mouth Voltaren gel Potassium good Discharge Tuesday (1) Fall on same level (2) Congestive heart failure (3) B12 deficiency (4) Recurrent UTI (5) Hyperlipemia (6) PVD (peripheral vascular disease) (7) CAD (coronary artery disease) (8) Coronary arteriosclerosis (9) Clavicle fracture (10) Hypertension (11) Lung mass (12) Peripheral vascular disease (1) Fall on same level Status: Acute (2) Congestive heart failure Status: Acute (3) B12 deficiency (4) Recurrent UTI (5) Hyperlipemia (6) PVD (peripheral vascular disease) (7) CAD (coronary artery disease) (8) Hypertension Status: Acute (9) Lung mass (10) Dizziness Status: Acute (11) Scalp hematoma Status: Acute (12) Scalp abrasion Status: Acute (13) Frequent falls Status: Acute OVIEDO,COLLEEN DO Oct 18, 2019 06:31
[2019-10-18] MEDS: FUROSEMIDE 20 MG (LASIX) TAB PO SCH (08:01)
[2019-10-18] MEDS: SACUBITRIL/VALSARTAN 24/26 MG (ENTRESTO) TABLET PO SCH ×2 (08:01→20:39)
[2019-10-18] MEDS: MULTIVIT W/MINERALS TAB (THERAGRAN M) PO SCH (08:01)
[2019-10-18] MEDS: ASPIRIN 81 MG CHEW (CHILDREN'S ASA) PO SCH (08:01)
[2019-10-18] MEDS: SPIRONOLACTONE 25 MG (ALDACTONE) TAB PO SCH (08:02)
[2019-10-18] MEDS: CYANOCOBALAMIN 1,000 MCG (VITAMIN B-12) TABLET PO SCH (08:02)
[2019-10-18] MEDS: SENNA W/DOCUSATE (SENOKOT S) TABLET PO SCH ×2 (08:04→19:20)
[2019-10-18] MEDS: DOCUSATE SODIUM 100 MG (COLACE) CAP PO SCH ×2 (08:04→20:39)
[2019-10-18] MEDS: polyethylene glycoL POWDER 17 GM (MIRALAX) PACK PO SCH ×2 (08:08→20:13)
--- NOTE | 2019-10-18 08:33 | Occupational Ther Daily Note ---
OT Current Status-Daily Note Subjective Pt seated in recliner, agreeable to OT Tx. She states she would like to take a full shower tomorrow, then again on Tuesday. She is hoping to d/c home on Tuesday. Pain Numeric Pain Scale: 3 Location: Right Location Body Site: Arm Mental Status/Objective Patient Orientation: Normal For Age ADL-Treatment Therapy Code Descriptions/Definitions Functional [place] Measure: 0=Not Assessed/NA 4=Minimal Assistance 1=Total Assistance 5=Supervision or Setup 2=Maximal Assistance 6=Modified [place] 3=Moderate Assistance 7=Complete IndependenceSCALE: Activities may be completed with or without assistive devices. 3-Zjgcfkehgu-menytbz completes the activity by him/herself with no assistance from a helper. 5-Set-up or Clean-up Assistance-helper sets up or cleans up; patient completes activity. [place] assists only prior to or following the activity. 4-Supervision or Touching Assistance-helper provides verbal cues and/or touching/steadying and/or contact guard assistance as patient completes activity. Assistance may be provided throughout the activity or intermittently. 3-Partial/Moderate Assistance-helper does LESS THAN HALF the effort. [place] lifts, holds or supports trunk or limbs, but provides less than half the effort. 2-Substantial/Maximal Assistance-helper does MORE THAN HALF the effort. [place] lifts or holds trunk or limbs and provides more than half the effort. 4-Hylmmpwcy-ahatoy does ALL the effort. Patient does none of the effort to complete the activity. Or, the assistance of 2 or more helpers is required for the patient to complete the activity. If activity was not attempted, code reason: 7-Patient Refused. 9-Not Applicable-not attempted and the patient did not perform the activity before the current illness, exacerbation or injury. 10-Not Attempted due to Environmental Limitations-(lack of equipment, weather restraints, etc.). 88-Not Attempted due to Medical Conditions or Safety Concerns. Eating (QC): 6 Oral Hygiene (QC): 6 (Pt IND standing at sink) Shower/Bathe Self (QC): 5 (Pt requested sponge bath, pt able to wash all parts with set up. Standing at [facility] in order to wash periarea/buttocks.) Upper Body Dressing (QC): 5 (set up. Pt able to doff hospital gown and don button up shirt) Lower Body Dressing (QC): 5 (set up, pt able to doff underwear, and don underwear/pants.) On/Off Footwear: 5 (set up, pt doffed gripper socks, donned socks/shoes using sock aide) Toileting Hygiene (QC): 6 Toilet Transfer (QC): 6 Pt required increased time with all ADLs due to slow movements. Other Treatment Pt seated in recliner, requested to go to the bathroom. Pt ambulated to the restroom using [facility] IND, she completed toileting then stood at the sink to brush her hair, brush her teeth and wash her face/hands IND. Pt returned to the recliner where she requested to take a sponge bath. OT provided pt with warm bath pack and pt completed sponge bath and dressing. Pt required increased time with ADLs due to slow movements. Pt then ambulated to therapy area using [facility]. She placed/removed 1" pegs from pegboard, alternating hands with a 1lb wrist cuff placed on left arm only (pt reports increased pain in R arm today). Pt placed/removed x100 pegs, then returned to her room using [facility]. Post OT session, pt seated in recliner, call light in reach and all needs met. Education OT Patient Education: Correct positioning, Energy conservation, Modified ADL techniques, Progress toward Goal/Update tx plan, Purpose of tx/functional activities, Safety issues, Transfer techniques Teaching Recipient: Patient Teaching Methods: Discussion Response to Teaching: Verbalize Understanding OT Jail Goals Jail Goals Time Frame: Oct 31, 2019 Eating (QC): 6 Oral Hygiene (QC): 6 Toileting Hygiene (QC): 6 Shower/Bathe Self (QC): 6 Upper Body Dressing (QC): 6 Lower Body Dressing (QC): 6 On/Off Footwear (QC): 6 Additional Goals: 1-Demonstrate ADL Tasks, 2-Verbalize Understanding, 3- ImproveStrength/[place] 1=Demonstrate adherence to instructed precautions during ADL tasks. 2=Patient will verbalize/demonstrate understanding of assistive devices/modifications for ADL. 3=Patient will improve strength/tolerance for activity to enable patient to perform ADL's. OT Education/Plan Problem List/Assessment Assessment: Decreased Activ Tolerance, Decreased UE Strength, Impaired I ADL's, Impaired Self-Care Skills Discharge Recommendations Plan/Recommendations: Continue POC Treatment Plan/Plan of Care Patient would benefit from OT for education, treatment and training to promote independence in ADL's, mobility, safety and/or upper extremity function for ADL's. Plan of Care: ADL Retraining, Functional Mobility, Group Exercise/Act as Ind, UE Funct Exercise/Act Treatment Duration: Oct 31, 2019 Frequency: At least 5 of 7 days/Wk (IRF) Estimated Hrs Per Day: 1.5 hours per day Rehab Potential: Fair Time/GCodes Start Time: 08:00 Stop Time: 09:30 Total Time Billed (hr/min): 90 Billed Treatment Time 1, ADL 4 (60'), FA 2 (30') RENATA TY OT Oct 18, 2019 08:33
[2019-10-18] MEDS: meTOproloL SUCCINATE 50 MG (TOPROL XL) TAB PO SCH ×2 (09:31→20:39)
[2019-10-18 09:33] VITALS: BP 104/59
--- NOTE | 2019-10-18 11:40 | Physical Therapy Daily Note ---
PT Daily Note-Current Subjective Pt sitting in recliner upon arrival. Pt agrees to PT. Pain Location Body Site: Sacrum Pain Description: Ache Comment: Pt reports 1/10 pain in R knee & pain in tailbone, not rated. Mental Status Patient Orientation: Person, Place, Time, Situation Transfers SCALE: Activities may be completed with or without assistive devices. 8-Qsocfxwndh-ghoajum completes the activity by him/herself with no assistance from a helper. 5-Set-up or Clean-up Assistance-helper sets up or cleans up; patient completes activity. [place] assists only prior to or following the activity. 4-Supervision or Touching Assistance-helper provides verbal cues and/or touching/steadying and/or contact guard assistance as patient completes activity. Assistance may be provided throughout the activity or intermittently. 3-Partial/Moderate Assistance-helper does LESS THAN HALF the effort. [place] lifts, holds or supports trunk or limbs, but provides less than half the effort. 2-Substantial/Maximal Assistance-helper does MORE THAN HALF the effort. [place] lifts or holds trunk or limbs and provides more than half the effort. 8-Dylmkdduw-clkajt does ALL the effort. Patient does none of the effort to complete the activity. Or, the assistance of 2 or more helpers is required for the patient to complete the activity. If activity was not attempted, code reason: 7-Patient Refused. 9-Not Applicable-not attempted and the patient did not perform the activity before the current illness, exacerbation or injury. 10-Not Attempted due to Environmental Limitations-(lack of equipment, weather restraints, etc.). 88-Not Attempted due to Medical Conditions or Safety Concerns. Sit to Stand (QC): 6 Toilet Transfer (QC): 6 Weight Bearing Full Weight Bearing Full Weight Bearing Gait Training Does the Patient Walk?: Yes Distance: 125', 175' Walk 10 feet (QC): 4 Walk 50 ft with 2 Turns(QC): 4 Walk 150 ft (QC): 4 Gait Persons Needed: 1 Gait Assistive Device: Cane Single Point Pt amb with flexed R knee and had some LOB during amb which increased with fatigue Wheelchair Training Does the Pt Use a Wheelchair?: No Stair Training #of Steps: 4 1 Step (curb) (QC): 4 Stairs: Pattern: Step to Pt had LOB after descending step but was able to self correct. Exercises Standing: Hip Abduction, Hamstring curls, Heel/toe raises, Marching, Mini squats, Unilateral stance Standing Reps: 10 NuStep Minutes: 15 NuStep Workload: 5 Treatments Pt sit to stand from recliner and amb to gym with SPC. Pt used NuStep and then performed standing exercises. Pt did 1 step x4 and then amb back into room. Pt used restroom and was left with all needs met. Assessment Current Status: Good Progress Pt tolerated Rx well, had LOB with fatigue. [employer]ATIONS SU[employer] continues to encourage pt to use FWW as much as possible. Pt reports will use SPC for community errands. PT Short Term Goals Short Term Goals Time Frame: Oct 17, 2019 Roll Left & Right: 6 Sit to lyin Lying to sitting on side of be: 6 Sit to stand: 4 Chair/oft-xi-plsep transfer: 4 Walk 10 feet: 4 Walk 50 feet with two turns: 4 Walk 150 feet: 4 PT Mcfp Goals Technician Automatic Goals PT Mcfp Goals Time Frame: Oct 31, 2019 Roll Left & Right (QC): 6 Sit to Lying (QC): 6 Lying-Sitting on Side/Bed(QC): 6 Sit to Stand (QC): 5 Chair/Qoq-ql-Haqkd Xfer(QC): 5 Toilet Transfer (QC): 5 Car Transfer (QC): 5 Does the Patient Walk: Yes Walk 10 feet (QC): 5 Walk 50ft with 2 Turns (QC): 5 Walk 150 ft (QC): 5 Walking 10ft on Uneven Surface: 5 1 Step (curb) (QC): 4 4 Steps (QC): 4 12 Steps (QC): 88 Picking up an Object (QC): 88 Wheel 50 feet with 2 turns (QC: 9 Wheel 150 feet: 9 PT Plan Problem List Problem List: Activity Tolerance, Gait Treatment/Plan Treatment Plan: Continue Plan of Care Treatment Plan: Education, Functional Activity [place], Functional Strength, Group Therapy, Gait, Safety, Therapeutic Exercise, Transfers Treatment Duration: Oct 31, 2019 Frequency: At least 5 of 7 days/Wk (IRF) Estimated Hrs Per Day: 1.5 hours per day Patient and/or Family Agrees t: Yes Safety Risks/Education Patient Education: Gait Training, Transfer Techniques, Steps, Correct Positioning, Safety Issues Teaching Recipient: Patient Teaching Methods: Demonstration, Discussion Response to Teaching: Verbalize Understanding, Return Demonstration Time/GCodes Time In: 1000 Time Out: 1100 Total Billed Treatment Time: 60 Total Billed Treatment 1, Ex x2 (30 m), Gt (15m), FA (15m) IRENE DE LUNA [employer] Oct 18, 2019 11:40
--- NOTE | 2019-10-18 13:33 | Physical Therapy Daily Note ---
PT Daily Note-Current Subjective Pt in recliner upon arrival and agrees to Rx. Pain Location: No Pain Reported Mental Status Patient Orientation: Person, Place, Time, Situation Transfers SCALE: Activities may be completed with or without assistive devices. 1-Pvxwqxglaq-hrdooud completes the activity by him/herself with no assistance from a helper. 5-Set-up or Clean-up Assistance-helper sets up or cleans up; patient completes activity. [place] assists only prior to or following the activity. 4-Supervision or Touching Assistance-helper provides verbal cues and/or touching/steadying and/or contact guard assistance as patient completes activity. Assistance may be provided throughout the activity or intermittently. 3-Partial/Moderate Assistance-helper does LESS THAN HALF the effort. [place] lifts, holds or supports trunk or limbs, but provides less than half the effort. 2-Substantial/Maximal Assistance-helper does MORE THAN HALF the effort. [place] lifts or holds trunk or limbs and provides more than half the effort. 6-Rryfuxhoe-sieezc does ALL the effort. Patient does none of the effort to complete the activity. Or, the assistance of 2 or more helpers is required for the patient to complete the activity. If activity was not attempted, code reason: 7-Patient Refused. 9-Not Applicable-not attempted and the patient did not perform the activity before the current illness, exacerbation or injury. 10-Not Attempted due to Environmental Limitations-(lack of equipment, weather restraints, etc.). 88-Not Attempted due to Medical Conditions or Safety Concerns. Sit to Stand (QC): 6 Toilet Transfer (QC): 6 Weight Bearing Full Weight Bearing Full Weight Bearing Gait Training Does the Patient Walk?: Yes Distance: 125', 175' Walk 10 feet (QC): 4 Walk 50 ft with 2 Turns(QC): 4 Walk 150 ft (QC): 4 Gait Persons Needed: 1 Gait Assistive Device: Cane Single Point Pt amb. with flexed R knee and a slight LOB when fatigued. Pt insists on using SPC over FWW. Wheelchair Training Does the Pt Use a Wheelchair?: No Stair Training Stair Training: Handrails/: uses cane #of Steps: 3 1 Step (curb) (QC): 4 Stairs: Pattern: Step to Pt has LOB descending step after landing with L foot. Pt corrects LOB herself. Treatments Pt uses restroom prior to using curb step in gym. Pt amb back to room and sat back in recliner, all needs met and call light in hand. Assessment Current Status: Good Progress Pt tolerated Rx well, had LOB with fatigue during amb. CHIEF AIRPORT GUIDE insists pt uses FWW, but pt prefers SPC for community errands. PT Short Term Goals Short Term Goals Time Frame: Oct 17, 2019 Roll Left & Right: 6 Sit to lyin Lying to sitting on side of be: 6 Sit to stand: 4 Chair/ibi-sv-qlzmt transfer: 4 Walk 10 feet: 4 Walk 50 feet with two turns: 4 Walk 150 feet: 4 PT Manager Bench Goals Manager Bench Goals PT Manager Bench Goals Time Frame: Oct 31, 2019 Roll Left & Right (QC): 6 Sit to Lying (QC): 6 Lying-Sitting on Side/Bed(QC): 6 Sit to Stand (QC): 5 Chair/Xqn-ey-Rejff Xfer(QC): 5 Toilet Transfer (QC): 5 Car Transfer (QC): 5 Does the Patient Walk: Yes Walk 10 feet (QC): 5 Walk 50ft with 2 Turns (QC): 5 Walk 150 ft (QC): 5 Walking 10ft on Uneven Surface: 5 1 Step (curb) (QC): 4 4 Steps (QC): 4 12 Steps (QC): 88 Picking up an Object (QC): 88 Wheel 50 feet with 2 turns (QC: 9 Wheel 150 feet: 9 PT Plan Problem List Problem List: Activity Tolerance, Gait Treatment/Plan Treatment Plan: Continue Plan of Care Treatment Plan: Education, Functional Activity [place], Functional Strength, Group Therapy, Gait, Safety, Therapeutic Exercise, Transfers Treatment Duration: Oct 31, 2019 Frequency: At least 5 of 7 days/Wk (IRF) Estimated Hrs Per Day: 1.5 hours per day Patient and/or Family Agrees t: Yes Safety Risks/Education Patient Education: Gait Training, Steps, Correct Positioning, Safety Issues Teaching Recipient: Patient Teaching Methods: Discussion Response to Teaching: Verbalize Understanding Time/GCodes Time In: 1300 Time Out: 1330 Total Billed Treatment Time: 30 Total Billed Treatment 1, FA (15), GT (15) IRENE DE LUNA CHIEF AIRPORT GUIDE Oct 18, 2019 13:33
--- NOTE | 2019-10-18 13:40 | NUR ---
"RD ASSESSMENT PMHx: CAD; hypercholesterolemia; HTN; chronic UTI; chronic constipation/diarrhea PT INTERACTION: Pt was awake and pleasant during nutrition follow-up. Pt states she has been eating fairly good since last assessment. Note avg PO intake 73% x4d, per chart review. Pt states no issues with nausea, vomiting, constipation, or diarrhea since last assessment. Note last BM was 10/16, and pt currently on bowel regimen of colace BID; senna BID; and miralax BID, per chart review. ABNORMAL NUTRITION-RELATED LAB VALUES LOW: HIGH: BUN 33 Est. kcal needs: 1948-5206 kcal | 25-30 kcal/kg Est. Pro needs: 48-60 g Pro | 0.8-1.0 g Pro/kg PES STATEMENT: Given current PO intake, no nutrition diagnosis at this time (NO-1.1) INTERVENTION: Continue with current diet order of Regular diet. Discontinue current supplementation order of Ensure Enlive with meals TID, for increased kcal intake. Pt states she is eating well enough that she does not need them anymore. Will continue to follow and reassess as pt needs, intake, and status change. MONITOR/EVALUATE: PO Intake; Plan of Care; Hydration Status; Weight Status; Lab Values Lexi Matta, MS, RD, LD"
--- NOTE | 2019-10-18 14:07 | NUR ---
CM/SS DISCHARGE PLANNING Observed patient x 2 today working with therapy practicing with single point cane ambulation. Plan is for discharge home 10/22/19. HHC: Confirmed with [facility] they accepted patient referral and will begin services timely post discharge.
[2019-10-18 16:06] VITALS: BP 118/65
[2019-10-18] MEDS: ENOXAPARIN 40 MG/0.4 ML (LOVENOX) SYR SC SCH (18:00)
[2019-10-18] MEDS: AMITRIPTYLINE 25 MG (ELAVIL) TAB PO SCH (20:39)
[2019-10-18 20:49] VITALS: BP 127/54
[2019-10-19 05:27] LABS: HEMOGLOBIN 11.5 G/DL (11.5-16.0); MEAN PLATELET VOLUME 10.9 FL (7.4-10.4); RED CELL DISTRIBUTION WIDTH 13.6 % (10.0-14.5); WHITE BLOOD COUNT 5.8 10^3/uL (4.3-11.0)
[2019-10-19 05:40] VITALS: BP 147/73
[2019-10-19] MEDS: polyethylene glycoL POWDER 17 GM (MIRALAX) PACK PO SCH ×3 (07:34→20:29)
[2019-10-19] MEDS: SENNA W/DOCUSATE (SENOKOT S) TABLET PO SCH ×2 (07:34→20:29)
[2019-10-19] MEDS: meTOproloL SUCCINATE 50 MG (TOPROL XL) TAB PO SCH ×2 (08:17→20:29)
[2019-10-19] MEDS: CYANOCOBALAMIN 1,000 MCG (VITAMIN B-12) TABLET PO SCH (08:17)
[2019-10-19] MEDS: FUROSEMIDE 20 MG (LASIX) TAB PO SCH (08:17)
[2019-10-19] MEDS: SPIRONOLACTONE 25 MG (ALDACTONE) TAB PO SCH (08:17)
[2019-10-19] MEDS: MULTIVIT W/MINERALS TAB (THERAGRAN M) PO SCH (08:18)
[2019-10-19] MEDS: DOCUSATE SODIUM 100 MG (COLACE) CAP PO SCH ×2 (08:18→20:29)
[2019-10-19] MEDS: SACUBITRIL/VALSARTAN 24/26 MG (ENTRESTO) TABLET PO SCH ×2 (08:18→20:29)
[2019-10-19] MEDS: ASPIRIN 81 MG CHEW (CHILDREN'S ASA) PO SCH (08:18)
--- NOTE | 2019-10-19 08:55 | Occupational Ther Daily Note ---
OT Current Status-Daily Note Subjective Pt standing at sink brushing her teeth, she is ad ju in room with FWW. She is agreeable to OT tx today. ADL-Treatment Therapy Code Descriptions/Definitions Functional [place] Measure: 0=Not Assessed/NA 4=Minimal Assistance 1=Total Assistance 5=Supervision or Setup 2=Maximal Assistance 6=Modified [place] 3=Moderate Assistance 7=Complete IndependenceSCALE: Activities may be completed with or without assistive devices. 9-Vtviftqygg-rfddvca completes the activity by him/herself with no assistance from a helper. 5-Set-up or Clean-up Assistance-helper sets up or cleans up; patient completes activity. [place] assists only prior to or following the activity. 4-Supervision or Touching Assistance-helper provides verbal cues and/or touching/steadying and/or contact guard assistance as patient completes activity. Assistance may be provided throughout the activity or intermittently. 3-Partial/Moderate Assistance-helper does LESS THAN HALF the effort. [place] lifts, holds or supports trunk or limbs, but provides less than half the effort. 2-Substantial/Maximal Assistance-helper does MORE THAN HALF the effort. [place] lifts or holds trunk or limbs and provides more than half the effort. 3-Mntenkadp-zfhwsu does ALL the effort. Patient does none of the effort to complete the activity. Or, the assistance of 2 or more helpers is required for the patient to complete the activity. If activity was not attempted, code reason: 7-Patient Refused. 9-Not Applicable-not attempted and the patient did not perform the activity before the current illness, exacerbation or injury. 10-Not Attempted due to Environmental Limitations-(lack of equipment, weather restraints, etc.). 88-Not Attempted due to Medical Conditions or Safety Concerns. Eating (QC): 6 Oral Hygiene (QC): 6 Shower/Bathe Self (QC): 5 (Pt able to wash all parts after set up. Pt stood safely at [facility] in order to wash periarea and buttocks.) Upper Body Dressing (QC): 6 (Pt gathered clothes from closet and set them up for after her shower. She doffed hospital gown and donned button up shirt.) Lower Body Dressing (QC): 6 (Pt gathered clothes from closet and set them up for after her shower. She doffed underwear and donned underwear/pants standing at FWW) On/Off Footwear: 6 (Pt gathered socks from closet and set them up for after her shower. She doffed gripper socks, then donned socks/shoes.) Toileting Hygiene (QC): 6 Toilet Transfer (QC): 6 Pt required increased time with all ADLs. Other Treatment Pt standing at sink brushing her teeth IND at FWW. She then returned to the recliner where she doffed her underwear. Pt used FWW to ambulate into the shower area, doffing gown/socks then sitting on SC. Pt completed shower seated, standing at grab bars in order to wash periarea and buttocks. After shower, pt used FWW in order to return to the recliner to complete dressing. Pt required increased time with ADLs. While buttoning her shirt, pt noted that she had miss buttoned her shirt, requiring her to undo her buttons and start over. Once pt completed dressing, she used FWW to go to the bathroom to stand at sink in order to brush her hair IND. She then returned to her recliner. Post OT tx, pt seated in recliner, call light in reach and all needs met. Education OT Patient Education: Correct positioning, Energy conservation, Modified ADL techniques, Progress toward Goal/Update tx plan, Purpose of tx/functional activities, Safety issues, Transfer techniques Teaching Recipient: Patient Teaching Methods: Discussion Response to Teaching: Verbalize Understanding OT Electron Beam Welder Goals Detention Goals Time Frame: Oct 31, 2019 Eating (QC): 6 Oral Hygiene (QC): 6 Toileting Hygiene (QC): 6 Shower/Bathe Self (QC): 6 Upper Body Dressing (QC): 6 Lower Body Dressing (QC): 6 On/Off Footwear (QC): 6 Additional Goals: 1-Demonstrate ADL Tasks, 2-Verbalize Understanding, 3- ImproveStrength/[place] 1=Demonstrate adherence to instructed precautions during ADL tasks. 2=Patient will verbalize/demonstrate understanding of assistive devices/modifica tions for ADL. 3=Patient will improve strength/tolerance for activity to enable patient to perform ADL's. OT Education/Plan Problem List/Assessment Assessment: Decreased Activ Tolerance, Decreased UE Strength, Impaired I ADL's, Impaired Self-Care Skills, Restricted Funct UE ROM Discharge Recommendations Plan/Recommendations: Continue POC Treatment Plan/Plan of Care Patient would benefit from OT for education, treatment and training to promote independence in ADL's, mobility, safety and/or upper extremity function for ADL's. Plan of Care: ADL Retraining, Functional Mobility, Group Exercise/Act as Ind, UE Funct Exercise/Act Treatment Duration: Oct 31, 2019 Frequency: At least 5 of 7 days/Wk (IRF) Estimated Hrs Per Day: 1.5 hours per day Rehab Potential: Fair Time/GCodes Start Time: 08:00 Stop Time: 09:30 Total Time Billed (hr/min): 90 Billed Treatment Time 1, ADL 6 (90') RENATA TY OT Oct 19, 2019 08:55
--- NOTE | 2019-10-19 10:16 | NUR ---
CM/SS DISCHARGE PLANNING Patient appears with continued daily improvement and is looking forward to her discharge October 21. She reports positive progress on learning to use a cane correctly/safely for her ambulation. She has self-directed her transport home on Tuesday via her Auxiliary Equipment Tender. HHC: Coordinated with [facility], finalize Tuesday with discharge orders and instructions. Patient has recommended DME at home, no new needs.
--- NOTE | 2019-10-19 10:27 | PM&R Progress Note ---
Subjective HPI/CC On Admission Date Seen by Provider: Oct 19, 2019 Time Seen by Provider: 10:30 Subjective/Events-last exam Patient has no complaints. No pain pills taken No falls Declines wheelchair DC on Tuesday [facility] hinojosa is her pharmacy Conferred with RN Reviewed therapy notes Checked labs and meds Review of Systems General: Fatigue Musculoskeletal: back pain Neurological: Weakness Objective Exam Vital Signs Vital Signs Date Time Temp Pulse Resp B/P (MAP) Pulse Ox O2 Delivery O2 Flow Rate FiO2 10/19/19 08:10 Room Air 10/19/19 05:40 36.8 85 20 147/73 (97) 90 Capillary Refill : Less Than 3 Seconds General Appearance: No Apparent Distress, WD/WN, Chronically ill, Thin HEENT: PERRL/EOMI, Normal ENT Inspection, Pharynx Normal Neck: Full Range of Motion, Normal Inspection, Non Tender, Supple, Carotid Bruit, Other (ecchymosis noted chest) Respiratory: Chest Non Tender, Lungs Clear, Normal Breath Sounds, No Accessory Muscle Use, No Respiratory Distress Cardiovascular: Regular Rate, Rhythm, No Edema, No Gallop, No JVD, No Murmur, Normal Peripheral Pulses Gastrointestinal: Normal Bowel Sounds, No Organomegaly, No Pulsatile Mass, Non Tender, Soft Back: Normal Inspection, No CVA Tenderness, No Vertebral Tenderness Extremity: Normal Capillary Refill, Normal Inspection, Normal Range of Motion, Non Tender, No Calf Tenderness, No Pedal Edema Neurologic/Psychiatric: Alert, Oriented x3, No Motor/Sensory Deficits, Normal Mood/Affect, Abnormal Gait, Motor Weakness (generalized weakness all extremities) Skin: Normal Color, Warm/Dry, Ecchymosis (arms, legs, torso, scalp) Lymphatic: No Adenopathy Results/Procedures Lab Laboratory Tests 10/19/19 05:00 Patient resulted labs reviewed. FIM Transfers Therapy Code Descriptions/Definitions Functional [place] Measure: 0=Not Assessed/NA 4=Minimal Assistance 1=Total Assistance 5=Supervision or Setup 2=Maximal Assistance 6=Modified [place] 3=Moderate Assistance 7=Complete IndependenceSCALE: Activities may be completed with or without assistive devices. 3-Gahjjosnhf-huqluad completes the activity by him/herself with no assistance from a helper. 5-Set-up or Clean-up Assistance-helper sets up or cleans up; patient completes activity. [place] assists only prior to or following the activity. 4-Supervision or Touching Assistance-helper provides verbal cues and/or touching/steadying and/or contact guard assistance as patient completes activity. Assistance may be provided throughout the activity or intermittently. 3-Partial/Moderate Assistance-helper does LESS THAN HALF the effort. [place] lifts, holds or supports trunk or limbs, but provides less than half the effort. 2-Substantial/Maximal Assistance-helper does MORE THAN HALF the effort. [place] lifts or holds trunk or limbs and provides more than half the effort. 0-Azvlhxegq-jmshav does ALL the effort. Patient does none of the effort to complete the activity. Or, the assistance of 2 or more helpers is required for the patient to complete the activity. If activity was not attempted, code reason: 7-Patient Refused. 9-Not Applicable-not attempted and the patient did not perform the activity before the current illness, exacerbation or injury. 10-Not Attempted due to Environmental Limitations-(lack of equipment, weather restraints, etc.). 88-Not Attempted due to Medical Conditions or Safety Concerns. Roll Left to Right (QC): 6 Sit to Lying (QC): 4 Sit to Stand (QC): 6 Chair/Uyo-al-Jfwlr Xfer(QC): 5 Car Transfer (QC): 5 Gait Training Does the Patient Walk?: Yes Distance: 125', 175' Walk 10 feet (QC): 4 Walk 50 ft with 2 Turns(QC): 4 Walk 150 ft (QC): 4 Walking 10ft/uneven surface-QC: 4 Gait Persons Needed: 1 Gait Assistive Device: Cane Single Point Wheelchair Training Does the Pt Use a Wheelchair?: No Wheel 50 ft with 2 turns (QC): 9 Wheel 150 ft (QC): 9 Stair Training Stair Training: Handrails/: uses cane #of Steps: 3 1 Step (curb) (QC): 4 4 Steps (QC): 4 12 Steps (QC): 88 Stairs: Pattern: Step to Balance Picking up an Object (QC): 88 ADL-Treatment Eating (QC): 6 Oral Hygiene (QC): 6 Bathing Location: L Arm, R Arm, L Upper Leg, R Upper Leg, L Lower Leg (i ncluding foot), R Lower Leg (including foot), Chest, Abdomen, Buttocks, Perineal Area Shower/Bathe Self (QC): 5 (Pt able to wash all parts after set up. Pt stood safely at [facility] in order to wash periarea and buttocks.) Upper Body Dressing (QC): 6 (Pt gathered clothes from closet and set them up for after her shower. She doffed hospital gown and donned button up shirt.) Lower Body Dressing (QC): 6 (Pt gathered clothes from closet and set them up for after her shower. She doffed underwear and donned underwear/pants standing at FWW) On/Off Footwear (QC): 6 (Pt gathered socks from closet and set them up for aft er her shower. 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 but does not wish to have work-up or treatment CAD with stents in place PVD with stents in place Lives alone CHF UTI's recurrent in type Elevated LFT's hx Neuropathy Plan: Tramadol for pain but does not effective for her so added Hydrocodone Inpatient rehab protocol Ambulation with walker for fall prevention Regain independence with ADLs Biotene for dry mouth Voltaren gel Potassium good Discharge Tuesday (1) Fall on same level (2) Congestive heart failure (3) B12 deficiency (4) Recurrent UTI (5) Hyperlipemia (6) PVD (peripheral vascular disease) (7) CAD (coronary artery disease) (8) Coronary arteriosclerosis (9) Clavicle fracture (10) Hypertension (11) Lung mass (12) Peripheral vascular disease (1) Fall on same level Status: Acute (2) Congestive heart failure Status: Acute (3) B12 deficiency (4) Recurrent UTI (5) Hyperlipemia (6) PVD (peripheral vascular disease) (7) CAD (coronary artery disease) (8) Hypertension Status: Acute (9) Lung mass (10) Dizziness Status: Acute (11) Scalp hematoma Status: Acute (12) Scalp abrasion Status: Acute (13) Frequent falls Status: Acute COLLEEN OVIEDO DO Oct 19, 2019 10:27
--- NOTE | 2019-10-19 11:25 | Physical Therapy Daily Note ---
PT Daily Note-Current Subjective Pt in recliner upon arrival and agrees to Rx. Pt states throughout rx how she is very independent and refuses to ask for help. Pt insists on using SPC in order to get it in and out of the car easier than a FWW. CAPTAIN/CHECK AIRMAN highly suggest pt uses FWW over SPC. Further edu and discussion regarding safety and possibly having as sistance for Dr appointments and other visits outside of the house so assistance on getting FWW in/out of vehicle. Mental Status Patient Orientation: Person, Place, Time, Situation Transfers SCALE: Activities may be completed with or without assistive devices. 2-Bdvcwxamvr-ovhqgtf completes the activity by him/herself with no assistance from a helper. 5-Set-up or Clean-up Assistance-helper sets up or cleans up; patient completes activity. [place] assists only prior to or following the activity. 4-Supervision or Touching Assistance-helper provides verbal cues and/or touching/steadying and/or contact guard assistance as patient completes activity. Assistance may be provided throughout the activity or intermittently. 3-Partial/Moderate Assistance-helper does LESS THAN HALF the effort. [place] lifts, holds or supports trunk or limbs, but provides less than half the effort. 2-Substantial/Maximal Assistance-helper does MORE THAN HALF the effort. [place] lifts or holds trunk or limbs and provides more than half the effort. 5-Sprgauijk-fjdlpe does ALL the effort. Patient does none of the effort to complete the activity. Or, the assistance of 2 or more helpers is required for the patient to complete the activity. If activity was not attempted, code reason: 7-Patient Refused. 9-Not Applicable-not attempted and the patient did not perform the activity before the current illness, exacerbation or injury. 10-Not Attempted due to Environmental Limitations-(lack of equipment, weather restraints, etc.). 88-Not Attempted due to Medical Conditions or Safety Concerns. Sit to Stand (QC): 6 (I from raised seat level) Weight Bearing Full Weight Bearing Full Weight Bearing Gait Training Does the Patient Walk?: Yes Distance: 150' x2 Walk 10 feet (QC): 5 Walk 50 ft with 2 Turns(QC): 5 Walk 150 ft (QC): 5 Gait Assistive Device: FWW Pt started amb with SPC, trialed hemiwalker d/t being unstable with SPC. Pt was unable to lift hemiwalker and trialed FWW again. Pt edu on safety with use of different AD. Pt was unstable w SPC and hemiwalker and led to the use of a Cavazos Test to decide which AD was best suit for pt. Balance Picking up an Object (QC): 5 Special Test Comments Required for Cavazos testing and pt required supervision for this activity. Treatments Pt amb and trailed multiple AD's based on support provided. Pt amb to gym and conducted a Cavazos test which scored 26/56.. interpretation needs FWW radio time salesperson. Pt amb back to room with FWW and left in recliner with all needs met, call light in hand. 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 Pt accepts the real possibility that she will fall again and is considering idea of hiring somebody to assist with community outings. PT Short Term Goals Short Term Goals Time Frame: Oct 17, 2019 Roll Left & Right: 6 Sit to lyin Lying to sitting on side of be: 6 Sit to stand: 4 Chair/keg-oy-lfhyb transfer: 4 Walk 10 feet: 4 Walk 50 feet with two turns: 4 Walk 150 feet: 4 PT Prison Goals Prison Goals PT Humanities Division Chair Goals Time Frame: Oct 31, 2019 Roll Left & Right (QC): 6 Sit to Lying (QC): 6 Lying-Sitting on Side/Bed(QC): 6 Sit to Stand (QC): 5 Chair/Rar-hb-Nstgq Xfer(QC): 5 Toilet Transfer (QC): 5 Car Transfer (QC): 5 Does the Patient Walk: Yes Walk 10 feet (QC): 5 Walk 50ft with 2 Turns (QC): 5 Walk 150 ft (QC): 5 Walking 10ft on Uneven Surface: 5 1 Step (curb) (QC): 4 4 Steps (QC): 4 12 Steps (QC): 88 Picking up an Object (QC): 88 Wheel 50 feet with 2 turns (QC: 9 Wheel 150 feet: 9 PT Plan Problem List Problem List: Activity Tolerance, Safety, Gait Treatment/Plan Treatment Plan: Continue Plan of Care Treatment Plan: Education, Functional Activity [place], Functional Strength, Group Therapy, Gait, Safety, Therapeutic Exercise, Transfers Treatment Duration: Oct 31, 2019 Frequency: At least 5 of 7 days/Wk (IRF) Estimated Hrs Per Day: 1.5 hours per day Patient and/or Family Agrees t: Yes Safety Risks/Education Patient Education: Gait Training, Transfer Techniques, Correct Positioning, Safety Issues Teaching Recipient: Patient Teaching Methods: Demonstration, Discussion Response to Teaching: Verbalize Understanding, Return Demonstration, Reinforcement Needed Time/GCodes Time In: 1015 Time Out: 1115 Total Billed Treatment Time: 60 Total Billed Treatment 1, NM x2 (30), GT x2 (30) DARRYL NAM CAPTAIN/CHECK AIRMAN Oct 19, 2019 11:25
--- NOTE | 2019-10-19 13:09 | Physical Therapy Daily Note ---
PT Daily Note-Current Subjective Pt in recliner finishing lunch upon arrival and agrees to Rx. Pt states she will go ahead and use the FWW at home for community outings. Pain Location: No Pain Reported Mental Status Patient Orientation: Person, Place, Time, Situation Transfers SCALE: Activities may be completed with or without assistive devices. 3-Dmbluhzuty-jxfxwto completes the activity by him/herself with no assistance from a helper. 5-Set-up or Clean-up Assistance-helper sets up or cleans up; patient completes activity. [place] assists only prior to or following the activity. 4-Supervision or Touching Assistance-helper provides verbal cues and/or touching/steadying and/or contact guard assistance as patient completes activity. Assistance may be provided throughout the activity or intermittently. 3-Partial/Moderate Assistance-helper does LESS THAN HALF the effort. [place] lifts, holds or supports trunk or limbs, but provides less than half the effort. 2-Substantial/Maximal Assistance-helper does MORE THAN HALF the effort. [place] lifts or holds trunk or limbs and provides more than half the effort. 8-Nqlbijvdp-vydpni does ALL the effort. Patient does none of the effort to complete the activity. Or, the assistance of 2 or more helpers is required for the patient to complete the activity. If activity was not attempted, code reason: 7-Patient Refused. 9-Not Applicable-not attempted and the patient did not perform the activity before the current illness, exacerbation or injury. 10-Not Attempted due to Environmental Limitations-(lack of equipment, weather restraints, etc.). 88-Not Attempted due to Medical Conditions or Safety Concerns. Sit to Stand (QC): 6 Toilet Transfer (QC): 6 Weight Bearing Full Weight Bearing Full Weight Bearing Gait Training Gait Assistive Device: FWW Pt amb with FWW 300' and decided she will use the FWW in community outings. Pt has slightly flexed posture and looks down at feet while amb. Wheelchair Training Does the Pt Use a Wheelchair?: No Stair Training Stair Training: Handrails/: uses walker 1 Step (curb) (QC): 4 Stairs: Pattern: Step to Pt needed assistance lowering FWW off of curb pt has to reach low in vulnerable position. Exercises NuStep Minutes: 12 NuStep Workload: 5 Treatments Pt amb. to gym and ascended/descended curb x3. Pt used NuStep and then preformed leg press x12 on the NuStep. Pt toileted and demonstrated I with clothing and cleaning. Pt left in room with all needs met. Assessment Current Status: Good Progress Pt possibly conceding asking for help for community outings as well as for using FWW time piece repairer. PT Short Term Goals Short Term Goals Time Frame: Oct 17, 2019 Roll Left & Right: 6 Sit to lyin Lying to sitting on side of be: 6 Sit to stand: 4 Chair/fsg-qw-nvdyl transfer: 4 Walk 10 feet: 4 Walk 50 feet with two turns: 4 Walk 150 feet: 4 PT Electrician Journeyman Wireman Goals Skilled Nursing Goals PT Skilled Nursing Goals Time Frame: Oct 31, 2019 Roll Left & Right (QC): 6 Sit to Lying (QC): 6 Lying-Sitting on Side/Bed(QC): 6 Sit to Stand (QC): 5 Chair/Smg-kl-Xkxgo Xfer(QC): 5 Toilet Transfer (QC): 5 Car Transfer (QC): 5 Does the Patient Walk: Yes Walk 10 feet (QC): 5 Walk 50ft with 2 Turns (QC): 5 Walk 150 ft (QC): 5 Walking 10ft on Uneven Surface: 5 1 Step (curb) (QC): 4 4 Steps (QC): 4 12 Steps (QC): 88 Picking up an Object (QC): 88 Wheel 50 feet with 2 turns (QC: 9 Wheel 150 feet: 9 PT Plan Problem List Problem List: Activity Tolerance, Safety, Balance, Gait Treatment/Plan Treatment Plan: Continue Plan of Care Treatment Plan: Education, Functional Activity [place], Functional Strength, Group Therapy, Gait, Safety, Therapeutic Exercise, Transfers Treatment Duration: Oct 31, 2019 Frequency: At least 5 of 7 days/Wk (IRF) Estimated Hrs Per Day: 1.5 hours per day Patient and/or Family Agrees t: Yes Safety Risks/Education Patient Education: Gait Training, Steps, Correct Positioning, Safety Issues Teaching Recipient: Patient Teaching Methods: Discussion Response to Teaching: Verbalize Understanding Time/GCodes Time In: 1230 Time Out: 1300 Total Billed Treatment Time: 30 Total Billed Treatment 1, GT (15m), Ex (15m) DARRYL NAM BOOT MAKER Oct 19, 2019 13:09
[2019-10-19 15:54] VITALS: BP 124/72
[2019-10-19] MEDS: ENOXAPARIN 40 MG/0.4 ML (LOVENOX) SYR SC SCH (18:41)
[2019-10-19] MEDS: AMITRIPTYLINE 25 MG (ELAVIL) TAB PO SCH (20:29)
[2019-10-20 05:42] VITALS: BP 150/73
--- NOTE | 2019-10-20 08:21 | PM&R Progress Note ---
Subjective HPI/CC On Admission Date Seen by Provider: Oct 20, 2019 Time Seen by Provider: 12:15 Subjective/Events-last exam Patient has no complaints. No pain pills taken so will decide of she wants any at DC on Tuesday No falls Declines wheelchair and she is using walker very well DC on Tuesday [facility] hinojosa is her pharmacy Conferred with RN Reviewed therapy notes Checked labs and meds Review of Systems General: Fatigue Neurological: Weakness Objective Exam Vital Signs Vital Signs Date Time Temp Pulse Resp B/P (MAP) Pulse Ox O2 Delivery O2 Flow Rate FiO2 10/20/19 17:57 36.0 73 18 126/71 (89) 97 Room Air Capillary Refill : Less Than 3 Seconds General Appearance: No Apparent Distress, WD/WN, Chronically ill, Thin HEENT: PERRL/EOMI, Normal ENT Inspection, Pharynx Normal Neck: Full Range of Motion, Normal Inspection, Non Tender, Supple, Carotid Bruit, Other (ecchymosis noted chest) Respiratory: Chest Non Tender, Lungs Clear, Normal Breath Sounds, No Accessory Muscle Use, No Respiratory Distress Cardiovascular: Regular Rate, Rhythm, No Edema, No Gallop, No JVD, No Murmur, N ormal Peripheral Pulses Gastrointestinal: Normal Bowel Sounds, No Organomegaly, No Pulsatile Mass, Non Tender, Soft Back: Normal Inspection, No CVA Tenderness, No Vertebral Tenderness Extremity: Normal Capillary Refill, Normal Inspection, Normal Range of Motion, Non Tender, No Calf Tenderness, No Pedal Edema Neurologic/Psychiatric: Alert, Oriented x3, No Motor/Sensory Deficits, Normal Mood/Affect, Abnormal Gait, Motor Weakness (generalized weakness all extremities) Skin: Normal Color, Warm/Dry, Ecchymosis (arms, legs, torso, scalp) Lymphatic: No Adenopathy Results/Procedures Lab Patient resulted labs reviewed. FIM Transfers Therapy Code Descriptions/Definitions Functional [place] Measure: 0=Not Assessed/NA 4=Minimal Assistance 1=Total Assistance 5=Supervision or Setup 2=Maximal Assistance 6=Modified [place] 3=Moderate Assistance 7=Complete IndependenceSCALE: Activities may be completed with or without assistive devices. 7-Wvzddnnsrb-bzrchxx completes the activity by him/herself with no assistance from a helper. 5-Set-up or Clean-up Assistance-helper sets up or cleans up; patient completes a ctivity. [place] assists only prior to or following the activity. 4-Supervision or Touching Assistance-helper provides verbal cues and/or touching/steadying and/or contact guard assistance as patient completes activity. Assistance may be provided throughout the activity or intermittently. 3-Partial/Moderate Assistance-helper does LESS THAN HALF the effort. [place] lifts, holds or supports trunk or limbs, but provides less than half the effort. 2-Substantial/Maximal Assistance-helper does MORE THAN HALF the effort. [place] lifts or holds trunk or limbs and provides more than half the effort. 6-Srobwkywx-nfgyok does ALL the effort. Patient does none of the effort to complete the activity. Or, the assistance of 2 or more helpers is required for the patient to complete the activity. If activity was not attempted, code reason: 7-Patient Refused. 9-Not Applicable-not attempted and the patient did not perform the activity before the current illness, exacerbation or injury. 10-Not Attempted due to Environmental Limitations-(lack of equipment, weather restraints, etc.). 88-Not Attempted due to Medical Conditions or Safety Concerns. Roll Left to Right (QC): 6 Sit to Lying (QC): 4 Sit to Stand (QC): 6 Chair/Ikr-fa-Detsb Xfer(QC): 5 Car Transfer (QC): 5 Gait Training Does the Patient Walk?: Yes Distance: 150' x2 Walk 10 feet (QC): 5 Walk 50 ft with 2 Turns(QC): 5 Walk 150 ft (QC): 5 Walking 10ft/uneven surface-QC: 4 Gait Persons Needed: 1 Gait Assistive Device: FWW Wheelchair Training Does the Pt Use a Wheelchair?: No Wheel 50 ft with 2 turns (QC): 9 Wheel 150 ft (QC): 9 Stair Training Stair Training: Handrails/: uses walker #of Steps: 3 1 Step (curb) (QC): 4 4 Steps (QC): 4 12 Steps (QC): 88 Stairs: Pattern: Step to Balance Picking up an Object (QC): 5 ADL-Treatment Eating (QC): 6 Oral Hygiene (QC): 6 Bathing Location: L Arm, R Arm, L Upper Leg, R Upper Leg, L Lower Leg (including foot), R Lower Leg (including foot), Chest, Abdomen, Buttocks, Perineal Area Shower/Bathe Self (QC): 5 (Pt able to wash all parts after set up. Pt stood safely at [facility] in order to wash periarea and buttocks.) Upper Body Dressing (QC): 6 (Pt gathered clothes from closet and set them up for after her shower. She doffed hospital gown and donned button up shirt.) Lower Body Dressing (QC): 6 (Pt gathered clothes from closet and set them up for after her shower. She doffed underwear and donned underwear/pants standing at FWW) On/Off Footwear (QC): 6 (Pt gathered socks from closet and set them up for after her shower. 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 but does not wish to have work-up or treatment CAD with stents in place PVD with stents in place Lives alone CHF UTI's recurrent in type Elevated LFT's hx Neuropathy Plan: Tramadol for pain but does not effective for her so added Hydrocodone Inpatient rehab protocol Ambulation with walker for fall prevention Regain independence with ADLs Biotene for dry mouth Voltaren gel Potassium good Discharge Tuesday (1) Fall on same level (2) Congestive heart failure (3) B12 deficiency (4) Recurrent UTI (5) Hyperlipemia (6) PVD (peripheral vascular disease) (7) CAD (coronary artery disease) (8) Coronary arteriosclerosis (9) Clavicle fracture (10) Hypertension (11) Lung mass (12) Peripheral vascular disease (1) Fall on same level Status: Acute (2) Congestive heart failure Status: Acute (3) B12 deficiency (4) Recurrent UTI (5) Hyperlipemia (6) PVD (peripheral vascular disease) (7) CAD (coronary artery disease) (8) Hypertension Status: Acute (9) Lung mass (10) Dizziness Status: Acute (11) Scalp hematoma Status: Acute (12) Scalp abrasion Status: Acute (13) Frequent falls Status: Acute COLLEEN OVIEDO DO Oct 20, 2019 08:21
[2019-10-20] MEDS: meTOproloL SUCCINATE 50 MG (TOPROL XL) TAB PO SCH ×2 (08:49→20:42)
[2019-10-20] MEDS: MULTIVIT W/MINERALS TAB (THERAGRAN M) PO SCH (08:49)
[2019-10-20] MEDS: polyethylene glycoL POWDER 17 GM (MIRALAX) PACK PO SCH ×2 (08:49→20:47)
[2019-10-20] MEDS: FUROSEMIDE 20 MG (LASIX) TAB PO SCH (08:50)
[2019-10-20] MEDS: SPIRONOLACTONE 25 MG (ALDACTONE) TAB PO SCH (08:50)
[2019-10-20] MEDS: CYANOCOBALAMIN 1,000 MCG (VITAMIN B-12) TABLET PO SCH (08:50)
[2019-10-20] MEDS: SENNA W/DOCUSATE (SENOKOT S) TABLET PO SCH ×2 (08:51→20:47)
[2019-10-20] MEDS: DOCUSATE SODIUM 100 MG (COLACE) CAP PO SCH ×2 (08:51→20:47)
[2019-10-20] MEDS: ASPIRIN 81 MG CHEW (CHILDREN'S ASA) PO SCH (08:51)
[2019-10-20] MEDS: SACUBITRIL/VALSARTAN 24/26 MG (ENTRESTO) TABLET PO SCH ×2 (08:51→20:42)
--- NOTE | 2019-10-20 12:32 | Physical Therapy Daily Note ---
PT Daily Note-Current Subjective Pt agreeable. "They have convinced me I must use my walker. I don't like it but I am using the walker." Pt declined use of SPC today. Pt denied pain. Mental Status Patient Orientation: Person, Place, Situation Transfers SCALE: Activities may be completed with or without assistive devices. 8-Javqmmjdhb-kasbavi completes the activity by him/herself with no assistance from a helper. 5-Set-up or Clean-up Assistance-helper sets up or cleans up; patient completes activity. [place] assists only prior to or following the activity. 4-Supervision or Touching Assistance-helper provides verbal cues and/or touching/steadying and/or contact guard assistance as patient completes activity. Assistance may be provided throughout the activity or intermittently. 3-Partial/Moderate Assistance-helper does LESS THAN HALF the effort. [place] lifts, holds or supports trunk or limbs, but provides less than half the effort. 2-Substantial/Maximal Assistance-helper does MORE THAN HALF the effort. [place] lifts or holds trunk or limbs and provides more than half the effort. 4-Nlpvgohwj-hbzwde does ALL the effort. Patient does none of the effort to complete the activity. Or, the assistance of 2 or more helpers is required for the patient to complete the activity. If activity was not attempted, code reason: 7-Patient Refused. 9-Not Applicable-not attempted and the patient did not perform the activity before the current illness, exacerbation or injury. 10-Not Attempted due to Environmental Limitations-(lack of equipment, weather restraints, etc.). 88-Not Attempted due to Medical Conditions or Safety Concerns. Weight Bearing Full Weight Bearing Full Weight Bearing Gait Training Gait Assistive Device: FWW Pt amb with FWW x 250' with CGA Treatments Pt practiced stairs x 4 steps up/down x 1, CGA with use of (R) hand rail only as she does at home. Pt practiced in/out of car (I). Pt back to recliner with call light in reach and all needs met. Assessment Current Status: Excellent Progress Pt showing good mobility and good speed of movement. Safe mobility throughout, pt CGA and no LOB. Pt naun well and progressing appropriately. PT Short Term Goals Short Term Goals Time Frame: Oct 17, 2019 Roll Left & Right: 6 Sit to lyin Lying to sitting on side of be: 6 Sit to stand: 4 Chair/gfv-oj-snbtw transfer: 4 Walk 10 feet: 4 Walk 50 feet with two turns: 4 Walk 150 feet: 4 PT Senior Living Goals Senior Living Goals PT Blind Escort Goals Time Frame: Oct 31, 2019 Roll Left & Right (QC): 6 Sit to Lying (QC): 6 Lying-Sitting on Side/Bed(QC): 6 Sit to Stand (QC): 5 Chair/Gkv-tl-Nshwh Xfer(QC): 5 Toilet Transfer (QC): 5 Car Transfer (QC): 5 Does the Patient Walk: Yes Walk 10 feet (QC): 5 Walk 50ft with 2 Turns (QC): 5 Walk 150 ft (QC): 5 Walking 10ft on Uneven Surface: 5 1 Step (curb) (QC): 4 4 Steps (QC): 4 12 Steps (QC): 88 Picking up an Object (QC): 88 Wheel 50 feet with 2 turns (QC: 9 Wheel 150 feet: 9 PT Plan Treatment/Plan Treatment Plan: Continue Plan of Care Treatment Plan: Education, Functional Activity [place], Functional Strength, Group Therapy, Gait, Safety, Therapeutic Exercise, Transfers Treatment Duration: Oct 31, 2019 Frequency: At least 5 of 7 days/Wk (IRF) Estimated Hrs Per Day: 1.5 hours per day Patient and/or Family Agrees t: Yes Time/GCodes Time In: 948 Time Out: 1009 Total Billed Treatment Time: 21 Total Billed Treatment 1, rick x 21' AMINATA GUZMAN CPTA Oct 20, 2019 12:32
--- NOTE | 2019-10-20 14:28 | NUR ---
Pam is a 89 yo female who is currently present on the inpatient rehab unit after sustaining a fall which resulted in a subdural hematoma. Patient has progressed very well throughout her stay. She is currently A&O X4 and has denied pain. She is currently continent of bowel and bladder. She is up AD SHAWN in the room with her rolling walker. It was noted she had an "area of concern" to her upper back but this nurse assess and no area noted. Allevyn dressing removed and now open to air. Current plan is for patient to discharge home on Tuesday with home health. No concerns/barriers noted by this nurse. I will continue to assess/assist as needed throughout shift.
[2019-10-20 17:57] VITALS: BP 126/71
[2019-10-20] MEDS: ENOXAPARIN 40 MG/0.4 ML (LOVENOX) SYR SC SCH (18:13)
[2019-10-20] MEDS: AMITRIPTYLINE 25 MG (ELAVIL) TAB PO SCH (20:42)
--- NOTE | 2019-10-20 21:48 | Cardiology Progress Note ---
Cardiology SOAP Progress Note Subjective: Denies any cardiac complaints. Objective: I&O/Vital Signs 10/21/19 10/21/19 10/21/19 05:05 08:16 08:27 Temp 36.0 Pulse 82 82 Resp 18 18 B/P (MAP) 147/72 (97) 119/68 (85) Pulse Ox 96 98 O2 Delivery Room Air Room Air Room Air 10/21/19 00:00 Intake Total 1260 ml Balance 1260 ml Weight (Pounds): 144 Weight (Ounces): 9.9 Weight (Calculated Kilograms): 65.000123 Constitutional: AAO x 3, well-developed, well-nourished Respiratory: No accessory muscle use, No respiratory distress; chest expansion is symmetric, chest is bilaterally symmetric, lungs clear to auscultation Cardiovascular: regular rate-rhythm; No JVD; S1 and S2 Gastrointestional: No tender; soft, round, audible bowel sounds Extremities: no lower extremity edema bilateral Neurologic/Psychiatric: grossly intact Skin: No rash on exposed areas, No ulcerations on exposed areas; other (diffuse ecchymosis to back of head, neck, shoulders and upper back extending around to shoulders and ACW) A/P: Assessment/Dx: Non-syncopal fall Sinus tachycardia H/O CAD- reported history of stent placement in the past (greater than 5 years ago). Follows with Dr. Marrero as outpatient. Chronic systolic AND diastolic CHF - clinically compensated Echo done November [address] Diallo showed LVEF 35-40%. Grade 1 diastolic dysfunction. Mild MR and TR. 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 Rounded mass-like density in the left base seen on CT of the chest of 10-09-2019 History of frequent falls at home Plan: * Continue current regimen of BB, Entresto, diuretic * Add supple K * Monitor labs Thank you for your consultation. Please call me if you have any questions. Wally Gresham MD, FACP, FACC, FSCAI, FHRS, CCDS Interventional Cardiology Cardiac Electrophysiology Vascular Medicine and Endovascular Interventions Shakeel GRESHAM MD Oct 20, 2019 21:48
[2019-10-21 05:05] VITALS: BP 147/72
[2019-10-21] MEDS: FUROSEMIDE 20 MG (LASIX) TAB PO SCH (08:12)
[2019-10-21] MEDS: MULTIVIT W/MINERALS TAB (THERAGRAN M) PO SCH (08:13)
[2019-10-21] MEDS: ASPIRIN 81 MG CHEW (CHILDREN'S ASA) PO SCH (08:13)
[2019-10-21] MEDS: SPIRONOLACTONE 25 MG (ALDACTONE) TAB PO SCH (08:13)
[2019-10-21] MEDS: CYANOCOBALAMIN 1,000 MCG (VITAMIN B-12) TABLET PO SCH (08:13)
[2019-10-21] MEDS: DOCUSATE SODIUM 100 MG (COLACE) CAP PO SCH ×2 (08:13→21:29)
[2019-10-21] MEDS: SACUBITRIL/VALSARTAN 24/26 MG (ENTRESTO) TABLET PO SCH ×2 (08:13→21:25)
[2019-10-21] MEDS: meTOproloL SUCCINATE 50 MG (TOPROL XL) TAB PO SCH ×2 (08:13→21:25)
[2019-10-21] MEDS: polyethylene glycoL POWDER 17 GM (MIRALAX) PACK PO SCH ×2 (08:14→21:29)
[2019-10-21] MEDS: SENNA W/DOCUSATE (SENOKOT S) TABLET PO SCH ×2 (08:14→21:29)
[2019-10-21 08:16] VITALS: BP 119/68
--- NOTE | 2019-10-21 10:36 | PM&R Progress Note ---
Subjective HPI/CC On Admission Date Seen by Provider: Oct 21, 2019 Time Seen by Provider: 12:30 Subjective/Events-last exam Patient has no complaints. No pain pills needed No falls Declines wheelchair and she is using walker very well and she is now willing to use the walker all the time DC on Tuesday Jacquelin hinojosa is her pharmacy Conferred with RN Reviewed therapy notes Checked labs and meds Review of Systems General: Fatigue Neurological: Weakness Objective Exam Vital Signs Vital Signs Date Time Temp Pulse Resp B/P (MAP) Pulse Ox O2 Delivery O2 Flow Rate FiO2 10/21/19 17:46 36.0 79 18 134/51 (78) 98 Room Air Capillary Refill : Less Than 3 Seconds General Appearance: No Apparent Distress, WD/WN, Chronically ill, Thin HEENT: PERRL/EOMI, Normal ENT Inspection, Pharynx Normal Neck: Full Range of Motion, Normal Inspection, Non Tender, Supple, Carotid Bruit, Other (ecchymosis noted chest) Respiratory: Chest Non Tender, Lungs Clear, Normal Breath Sounds, No Accessory Muscle Use, No Respiratory Distress Cardiovascular: Regular Rate, Rhythm, No Edema, No Gallop, No JVD, No Murmur, Normal Peripheral Pulses Gastrointestinal: Normal Bowel Sounds, No Organomegaly, No Pulsatile Mass, Non Tender, Soft Back: Normal Inspection, No CVA Tenderness, No Vertebral Tenderness Extremity: Normal Capillary Refill, Normal Inspection, Normal Range of Motion, Non Tender, No Calf Tenderness, No Pedal Edema Neurologic/Psychiatric: Alert, Oriented x3, No Motor/Sensory Deficits, Normal Mood/Affect, Abnormal Gait, Motor Weakness (generalized weakness all extremities) Skin: Normal Color, Warm/Dry, Ecchymosis (arms, legs, torso, scalp) Lymphatic: No Adenopathy Results/Procedures Lab Patient resulted labs reviewed. FIM Transfers Therapy Code Descriptions/Definitions Functional [place] Measure: 0=Not Assessed/NA 4=Minimal Assistance 1=Total Assistance 5=Supervision or Setup 2=Maximal Assistance 6=Modified [place] 3=Moderate Assistance 7=Complete IndependenceSCALE: Activities may be completed with or without assistive devices. 6-Ouvjuvfyfc-ztbbnhh completes the activity by him/herself with no assistance from a helper. 5-Set-up or Clean-up Assistance-helper sets up or cleans up; patient completes activity. [place] assists only prior to or following the activity. 4-Supervision or Touching Assistance-helper provides verbal cues and/or touching/steadying and/or contact guard assistance as patient completes activity. Assistance may be provided throughout the activity or intermittently. 3-Partial/Moderate Assistance-helper does LESS THAN HALF the effort. [place] lifts, holds or supports trunk or limbs, but provides less than half the effort. 2-Substantial/Maximal Assistance-helper does MORE THAN HALF the effort. [place] lifts or holds trunk or limbs and provides more than half the effort. 6-Fmorvounf-yqzfcu does ALL the effort. Patient does none of the effort to complete the activity. Or, the assistance of 2 or more helpers is required for the patient to complete the activity. If activity was not attempted, code reason: 7-Patient Refused. 9-Not Applicable-not attempted and the patient did not perform the activity before the current illness, exacerbation or injury. 10-Not Attempted due to Environmental Limitations-(lack of equipment, weather restraints, etc.). 88-Not Attempted due to Medical Conditions or Safety Concerns. Roll Left to Right (QC): 6 Sit to Lying (QC): 4 Sit to Stand (QC): 6 Chair/Ots-qp-Joxcm Xfer(QC): 5 Car Transfer (QC): 5 Gait Training Does the Patient Walk?: Yes Distance: 150' x2 Walk 10 feet (QC): 5 Walk 50 ft with 2 Turns(QC): 5 Walk 150 ft (QC): 5 Walking 10ft/uneven surface-QC: 4 Gait Persons Needed: 1 Gait Assistive Device: FWW Wheelchair Training Does the Pt Use a Wheelchair?: No Wheel 50 ft with 2 turns (QC): 9 Wheel 150 ft (QC): 9 Stair Training Stair Training: Handrails/: uses walker #of Steps: 3 1 Step (curb) (QC): 4 4 Steps (QC): 4 12 Steps (QC): 88 Stairs: Pattern: Step to Balance Picking up an Object (QC): 5 ADL-Treatment Eating (QC): 6 Oral Hygiene (QC): 6 Bathing Location: L Arm, R Arm, L Upper Leg, R Upper Leg, L Lower Leg (including foot), R Lower Leg (including foot), Chest, Abdomen, Buttocks, Perineal Area Shower/Bathe Self (QC): 5 (Pt able to wash all parts after set up. Pt stood safely at [facility] in order to wash periarea and buttocks.) Upper Body Dressing (QC): 6 (Pt gathered clothes from closet and set them up for after her shower. She doffed hospital gown and donned button up shirt.) Lower Body Dressing (QC): 6 (Pt gathered clothes from closet and set them up for after her shower. She doffed underwear and donned underwear/pants standing at FWW) On/Off Footwear (QC): 6 (Pt gathered socks from closet and set them up for after her shower. 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 but does not wish to have work-up or treatment CAD with stents in place PVD with stents in place Lives alone CHF UTI's recurrent in type Elevated LFT's hx Neuropathy Plan: Tramadol for pain but does not effective for her so added Hydrocodone Inpatient rehab protocol Ambulation with walker for fall prevention Regain independence with ADLs Biotene for dry mouth Voltaren gel Potassium good Discharge tomorrow (1) Fall on same level (2) Congestive heart failure (3) B12 deficiency (4) Recurrent UTI (5) Hyperlipemia (6) PVD (peripheral vascular disease) (7) CAD (coronary artery disease) (8) Coronary arteriosclerosis (9) Clavicle fracture (10) Hypertension (11) Lung mass (12) Peripheral vascular disease (1) Fall on same level Status: Acute (2) Congestive heart failure Status: Acute (3) B12 deficiency (4) Recurrent UTI (5) Hyperlipemia (6) PVD (peripheral vascular disease) (7) CAD (coronary artery disease) (8) Hypertension Status: Acute (9) Lung mass (10) Dizziness Status: Acute (11) Scalp hematoma Status: Acute (12) Scalp abrasion Status: Acute (13) Frequent falls Status: Acute COLLEEN OVIEDO DO Oct 21, 2019 10:36
--- NOTE | 2019-10-21 16:53 | Cardiology Progress Note ---
Cardiology SOAP Progress Note Subjective: No cardiac complaints. Objective: I&O/Vital Signs 10/21/19 10/21/19 10/21/19 05:05 08:16 08:27 Temp 36.0 Pulse 82 82 Resp 18 18 B/P (MAP) 147/72 (97) 119/68 (85) Pulse Ox 96 98 O2 Delivery Room Air Room Air Room Air 10/21/19 00:00 Intake Total 1260 ml Balance 1260 ml Weight (Pounds): 144 Weight (Ounces): 9.9 Weight (Calculated Kilograms): 65.861840 Constitutional: AAO x 3, well-developed, well-nourished Respiratory: No accessory muscle use, No respiratory distress; chest expansion is symmetric, chest is bilaterally symmetric, lungs clear to auscultation Cardiovascular: regular rate-rhythm; No JVD; S1 and S2 Gastrointestional: No tender; soft, round, audible bowel sounds Extremities: no lower extremity edema bilateral Neurologic/Psychiatric: grossly intact Skin: No rash on exposed areas, No ulcerations on exposed areas; other (diffuse ecchymosis to back of head, neck, shoulders and upper back extending around to shoulders and ACW) A/P: Assessment/Dx: Non-syncopal fall Sinus tachycardia H/O CAD- reported history of stent placement in the past (greater than 5 years ago). Follows with Dr. Marrero as outpatient. Chronic systolic AND diastolic CHF - clinically compensated Echo done November [address] Diallo showed LVEF 35-40%. Grade 1 diastolic dysfunction. Mild MR and TR. 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 Rounded mass-like density in the left base seen on CT of the chest of 10-09-2019 History of frequent falls at home Plan: * Continue current regimen of BB, Entresto, diuretic * Add supple K * Monitor labs Thank you for your consultation. Please call me if you have any questions. Wally Gresham MD, FACP, FACC, FSCAI, FHRS, CCDS Interventional Cardiology Cardiac Electrophysiology Vascular Medicine and Endovascular Interventions Shakeel GRESHAM MD Oct 21, 2019 16:53
[2019-10-21] MEDS: ENOXAPARIN 40 MG/0.4 ML (LOVENOX) SYR SC SCH (17:41)
[2019-10-21 17:46] VITALS: BP 134/51
[2019-10-21] MEDS ORDERED: FURO20TA4 PO (18:18)
[2019-10-21] MEDS ORDERED: METO50TA7 PO (18:18)
--- NOTE | 2019-10-21 18:19 | D/C HH Face to Face Order ---
D/C Face to Face Orders Reconcile Patient Problems Problems Reviewed?: Yes Instructions for Patient Via [facility], Patient Instructions/FollowUp: Dr Dobbins in 1 week Physician to follow Patient: Shilpi Discharge Diet for Home: No Restrictions Patient Problems: Falls Scalp hematoma CAD PVD Goals for Patient: [place] Patient Data-Allergies,Ht & Wt Patient Allergies: Coded Allergies: atenolol (Verified Allergy, Unknown, 05/05/18) codeine (Verified Adverse Reaction, Mild, NAUSEA, 05/05/18) HEADACHE diltiazem (Verified Adverse Reaction, Mild, DOESN'T WANT, 05/05/18) indomethacin (Verified Adverse Reaction, Mild, DOESN'T WANT, 05/05/18) propranolol (Verified Adverse Reaction, Mild, DOESN'T WANT, 05/05/18) morphine (Verified Adverse Reaction, Unknown, 05/05/18) reports hearing things-reports she does not want to ever take. haS TOLERATED HYDROCODONE Uncoded Allergies: NITROPATCH (Adverse Reaction, Mild, DOESN'T WANT, 03/29/07) Height (Feet): 5 Height (Inches): 7.00 Weight (Pounds): 144 Weight (Ounces): 9.9 Home Health Need/Face to Face Date of Face to Face: Oct 21, 2019 Clinical Findings: Generalized weakness and fatigue, Instability, Muscle weakness, Unsteady gait I have seen Pt gbks-zf-jctw: Yes Discharged To: Home Diagnosis/Conditions: Falls Scalp hematoma CAD PVD Patient is Homebound due to: Nicole fall risk due to instabilty, Muscle weakness Homebound Status Due to the above stated illness, injury or surgical procedure (medical condit ion or diagnosis) and associated clinical findings, the patient is homebound because of his/her inability to leave home except with aid of a supportive device and/or person AND leaving the home requires a considerable and taxing effort or is medically contraindicated. Pt req the following assistanc: Walker Home Health Nursing Orders Home Health Services Order: Nursing Services, Graduation Coach-Evaluate & Treat, Physical Therapy-Evaluate & Treat Certify Stmt I certify that this patient is under my care and that I, a nurse practitioner or a physician; a volunteer assistant working with me, had a face to face encounter that - meets the physician face to face encounter requirements with this patient as dated. COLLEEN OVIEDO DO Oct 21, 2019 18:19
[2019-10-21] MEDS: AMITRIPTYLINE 25 MG (ELAVIL) TAB PO SCH (21:25)
[2019-10-22] MEDS: ACETAMINOPHEN 325 MG TABLET PO PRN (04:39)
[2019-10-22 05:07] VITALS: BP 122/70
[2019-10-22 05:44] LABS: BASOPHILS # (AUTO) 0.1 10^3/uL (0.0-0.1); BASOPHILS % (AUTO) 2 % (0-10); EOSINOPHILS # (AUTO) 0.4 10^3/uL (0.0-0.3); EOSINOPHILS % (AUTO) 8 % (0-10); HEMATOCRIT 35 % (35-52); HEMOGLOBIN 10.9 G/DL (11.5-16.0); LYMPHOCYTES # (AUTO) 0.5 X 10^3 (1.0-4.0); LYMPHOCYTES % (AUTO) 10 % (12-44); MEAN CORPUSCULAR HEMOGLOBIN 30 PG (25-34); MEAN CORPUSCULAR HGB CONC 32 G/DL (32-36); MEAN CORPUSCULAR VOLUME 96 FL (80-99); MEAN PLATELET VOLUME 10.2 FL (7.4-10.4); MONOCYTES # (AUTO) 0.6 X 10^3 (0.0-1.0); MONOCYTES % (AUTO) 11 % (0-12); NEUTROPHILS # (AUTO) 3.5 X 10^3 (1.8-7.8); NEUTROPHILS % (AUTO) 69 % (42-75); PLATELET COUNT 305 10^3/uL (130-400); RED CELL DISTRIBUTION WIDTH 13.7 % (10.0-14.5); WHITE BLOOD COUNT 5.1 10^3/uL (4.3-11.0)
[2019-10-22 06:06] LABS: ALBUMIN 3.6 GM/DL (3.2-4.5); POTASSIUM 4.1 MMOL/L (3.6-5.0)
[2019-10-22 06:10] LABS: BILIRUBIN,TOTAL 0.3 MG/DL (0.1-1.0)
[2019-10-22 06:12] LABS: CREATININE SERUM 1.02 MG/DL (0.60-1.30)
--- NOTE | 2019-10-22 09:05 | Occupational Ther Daily Note ---
OT Current Status-Daily Note Subjective Pt seated in recliner, agreeable to OT Tx. Pt reports she did not sleep well last night. Mental Status/Objective Patient Orientation: Person, Place, Time, Situation, Normal For Age ADL-Treatment Therapy Code Descriptions/Definitions Functional [place] Measure: 0=Not Assessed/NA 4=Minimal Assistance 1=Total Assistance 5=Supervision or Setup 2=Maximal Assistance 6=Modified [place] 3=Moderate Assistance 7=Complete IndependenceSCALE: Activities may be completed with or without assistive devices. 6-Rwzjstkcgm-fdwanka completes the activity by him/herself with no assistance from a helper. 5-Set-up or Clean-up Assistance-helper sets up or cleans up; patient completes activity. [place] assists only prior to or following the activity. 4-Supervision or Touching Assistance-helper provides verbal cues and/or touching/steadying and/or contact guard assistance as patient completes activity. Assistance may be provided throughout the activity or intermittently. 3-Partial/Moderate Assistance-helper does LESS THAN HALF the effort. [place] lif ts, holds or supports trunk or limbs, but provides less than half the effort. 2-Substantial/Maximal Assistance-helper does MORE THAN HALF the effort. [place] lifts or holds trunk or limbs and provides more than half the effort. 7-Qxzkzjpmg-lizlof does ALL the effort. Patient does none of the effort to complete the activity. Or, the assistance of 2 or more helpers is required for the patient to complete the activity. If activity was not attempted, code reason: 7-Patient Refused. 9-Not Applicable-not attempted and the patient did not perform the activity before the current illness, exacerbation or injury. 10-Not Attempted due to Environmental Limitations-(lack of equipment, weather restraints, etc.). 88-Not Attempted due to Medical Conditions or Safety Concerns. Eating (QC): 6 Oral Hygiene (QC): 6 (standing at sink with FWW) Bathing Location: L Arm, R Arm, L Upper Leg, R Upper Leg, L Lower Leg (including foot), R Lower Leg (including foot), Chest, Abdomen, Buttocks, Perineal Area Shower/Bathe Self (QC): 5 (Pt seated on SC in order to perform task, standing at GBs in order to wash/dry buttocks and periarea. Pt required set up/clean up assist with task.) Upper Body Dressing (QC): 6 (Pt gathered clothes from closet setting them up on tray table. She was able to complete donning/doffing of bra and button up shirt.) Lower Body Dressing (QC): 6 (Pt gathered clothes from closet and set them up on her tray table. Pt completed donning/doffing of underwear and pants, using FWW during stance for pant hike.) On/Off Footwear: 6 (Pt able to don/doff socks and shoes.) Toileting Hygiene (QC): 6 Toilet Transfer (QC): 6 Other Treatment Pt seated in recliner. Pt able to operate lift chair in order to transfer sit to stand IND. She then used FWW for functional mobility in order to gather clothes from closet and set them up on tray table. Pt then went into the restroom where she completed toileting, stood at sink to brush her teeth, then transferred to the [place] to take off clothes and complete showering. After shower, pt returned to the recliner where she completed dressing. Pt noticed she forgot her sock aide on the counter during task, she was able to use FWW in order to retrieve sock aide. She returned to the recliner where she continued to complete dressing. OT and pt discussed safety aspects of completing ADLs at home, pt reports having all AE needed at home as well as non-slip mats outside of her shower. No further AE recommended at this time. Post OT tx, pt seated in recliner, call light in reach and all needs met. Education OT Patient Education: Correct positioning, Energy conservation, Modified ADL techniques, Progress toward Goal/Update tx plan, Purpose of tx/functional activities, Safety issues Teaching Recipient: Patient Teaching Methods: Discussion Response to Teaching: Verbalize Understanding OT Operational Intelligence Officer Goals Half-Way Goals Time Frame: Oct 31, 2019 Eating (QC): 6 (met) Oral Hygiene (QC): 6 (met) Toileting Hygiene (QC): 6 (mtt) Shower/Bathe Self (QC): 6 (not met, set up) Upper Body Dressing (QC): 6 (met) Lower Body Dressing (QC): 6 (met) On/Off Footwear (QC): 6 (met) Additional Goals: 1-Demonstrate ADL Tasks, 2-Verbalize Understanding, 3- ImproveStrength/[place]esean 1=Demonstrate adherence to instructed precautions during ADL tasks. 2=Patient will verbalize/demonstrate understanding of assistive devices/modifications for ADL. 3=Patient will improve strength/tolerance for activity to enable patient to perform ADL's. OT Education/Plan Problem List/Assessment Assessment: Decreased Activ Tolerance, Decreased UE Strength, Impaired I ADL's, Restricted Funct UE ROM Discharge Recommendations Plan/Recommendations: Continue POC Treatment Plan/Plan of Care Patient would benefit from OT for education, treatment and training to promote independence in ADL's, mobility, safety and/or upper extremity function for ADL's. Plan of Care: ADL Retraining, Functional Mobility, Group Exercise/Act as Ind, UE Funct Exercise/Act Treatment Duration: Oct 31, 2019 Frequency: At least 5 of 7 days/Wk (IRF) Estimated Hrs Per Day: 1.5 hours per day Rehab Potential: Fair Time/GCodes Start Time: 08:05 Stop Time: 09:20 Total Time Billed (hr/min): 75 Billed Treatment Time 1, ADL 5 (75') RENATA TY OT Oct 22, 2019 09:05
[2019-10-22] MEDS: MULTIVIT W/MINERALS TAB (THERAGRAN M) PO SCH (09:15)
[2019-10-22] MEDS: ASPIRIN 81 MG CHEW (CHILDREN'S ASA) PO SCH (09:15)
[2019-10-22] MEDS: meTOproloL SUCCINATE 50 MG (TOPROL XL) TAB PO SCH (09:15)
[2019-10-22] MEDS: FUROSEMIDE 20 MG (LASIX) TAB PO SCH (09:15)
[2019-10-22] MEDS: SACUBITRIL/VALSARTAN 24/26 MG (ENTRESTO) TABLET PO SCH (09:16)
[2019-10-22] MEDS: SPIRONOLACTONE 25 MG (ALDACTONE) TAB PO SCH (09:16)
[2019-10-22] MEDS: DOCUSATE SODIUM 100 MG (COLACE) CAP PO SCH (09:18)
[2019-10-22] MEDS: polyethylene glycoL POWDER 17 GM (MIRALAX) PACK PO SCH (09:18)
[2019-10-22] MEDS: SENNA W/DOCUSATE (SENOKOT S) TABLET PO SCH (09:19)
[2019-10-22] MEDS: CYANOCOBALAMIN 1,000 MCG (VITAMIN B-12) TABLET PO SCH (09:19)
--- NOTE | 2019-10-22 10:13 | NUR ---
CM/SS DISCHARGE Patient discharged home as planned. IMM2 presented, signed, charted. HHC: Finalized with [facility] this a.m. Initial referral was made last week, agency is prepared to provide timely services. Patient has self-directed her transportation by way of her Senior Care Manager, Rev. Yosef Ring. Unit RN aware of discharge.
--- NOTE | 2019-10-22 10:14 | Discharge Summary ---
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 but does not wish to have work-up or treatment CAD with stents in place PVD with stents in place Lives alone CHF UTI's recurrent in type Elevated LFT's hx Neuropathy Plan: Tramadol for pain but does not effective for her so added Hydrocodone Inpatient rehab protocol Ambulation with walker for fall prevention Regain independence with ADLs Biotene for dry mouth Voltaren gel Potassium good Discharge tomorrow (1) Fall on same level (2) Congestive heart failure (3) B12 deficiency (4) Recurrent UTI (5) Hyperlipemia (6) PVD (peripheral vascular disease) (7) CAD (coronary artery disease) (8) Coronary arteriosclerosis (9) Clavicle fracture (10) Hypertension (11) Lung mass (12) Peripheral vascular disease (1) Fall on same level Status: Acute (2) Congestive heart failure Status: Acute (3) B12 deficiency (4) Recurrent UTI (5) Hyperlipemia (6) PVD (peripheral vascular disease) (7) CAD (coronary artery disease) (8) Hypertension Status: Acute (9) Lung mass (10) Dizziness Status: Acute (11) Scalp hematoma Status: Acute (12) Scalp abrasion Status: Acute (13) Frequent falls Status: Acute Discharge Summary Discharge Physical Examination Allergies: Coded Allergies: atenolol (Verified Allergy, Unknown, 05/05/18) codeine (Verified Adverse Reaction, Mild, NAUSEA, 05/05/18) HEADACHE diltiazem (Verified Adverse Reaction, Mild, DOESN'T WANT, 05/05/18) indomethacin (Verified Adverse Reaction, Mild, DOESN'T WANT, 05/05/18) propranolol (Verified Adverse Reaction, Mild, DOESN'T WANT, 05/05/18) morphine (Verified Adverse Reaction, Unknown, 05/05/18) reports hearing things-reports she does not want to ever take. haS TOLERATED HYDROCODONE Uncoded Allergies: NITROPATCH (Adverse Reaction, Mild, DOESN'T WANT, 03/29/07) Vitals & I&Os Vital Signs Date Time Temp Pulse Resp B/P (MAP) Pulse Ox O2 Delivery O2 Flow Rate FiO2 10/22/19 14:24 36.8 77 18 122/70 96 Room Air General Appearance: Oriented X3, Cooperative Respiratory: Clear to Auscultation Cardiovascular: Regular Rate Neuro: Normal Gait, Normal Speech, Strength at 5/5 X4 Ext Hospital Course Was the Problem List Reviewed?: Yes Hospital Course: PT had an uneventful 12 day hospital course where she was admitted after a fall, a scalp hematoma, and multiple other soft tissue hematomas. She participated in all therapies, and was able to use a walker. She is committed to using a walker for decreased fall risk and pt did have a Dr. Cortes consult and he adjusted a few of her medications, potassium was supplemented and was normal at time of DC and pt was ready for discharge home with home health. Labs (last 24 hrs) Laboratory Tests 10/11/19 04:37: White Blood Count 7.7, Red Blood Count 4.25L, Hemoglobin 12.6, Hematocrit 39, Mean Corpuscular Volume 93, Mean Corpuscular Hemoglobin 30, Mean Corpuscular Hemoglobin Concent 32, Red Cell Distribution Width 12.9, Platelet Count 206, Mean Platelet Volume 11.6H, Neutrophils (%) (Auto) 76H, Lymphocytes (%) (Auto) 7L, Monocytes (%) (Auto) 9, Eosinophils (%) (Auto) 8, Basophils (%) (Auto) 1, Neutrophils # (Auto) 5.9, Lymphocytes # (Auto) 0.5L, Monocytes # (Auto) 0.7, Eosinophils # (Auto) 0.6H, Basophils # (Auto) 0.1, Sodium Level 140, Potassium Level 3.6, Chloride Level 106, Carbon Dioxide Level 22, Anion Gap 12, Blood Urea Nitrogen 20H, Creatinine 0.80, Estimat Glomerular Filtration Rate > 60, BUN/Creatinine Ratio 25, Glucose Level 95, Calcium Level 9.2, Corrected Calcium 9.4, Total Bilirubin 0.5, Aspartate Amino Transf (AST/SGOT) 15, Alanine Aminotransferase (ALT/SGPT) 17, Alkaline Phosphatase 83, Total Protein 6.4, Albumin 3.8 10/12/19 06:47: White Blood Count 5.9, Red Blood Count 3.84L, Hemoglobin 11.6, Hematocrit 36, Mean Corpuscular Volume 93, Mean Corpuscular Hemoglobin 30, Mean Corpuscular Hemoglobin Concent 32, Red Cell Distribution Width 12.9, Platelet Count 195, Mean Platelet Volume 11.0H, Sodium Level 137, Potassium Level 3.4L, Chloride Level 104, Carbon Dioxide Level 24, Anion Gap 9, Blood Urea Nitrogen 23H, Creatinine 0.80, Estimat Glomerular Filtration Rate > 60, BUN/Creatinine Ratio 29, Glucose Level 120H, Calcium Level 8.8, Corrected Calcium 9.1, Total Bilirubin 0.5, Aspartate Amino Transf (AST/SGOT) 16, Alanine Aminotransferase (ALT/SGPT) 20, Alkaline Phosphatase 85, Total Protein 5.9L, Albumin 3.6, Magnesium Level 1.6, Thyroid Stimulating Hormone (TSH) 3.40 10/15/19 05:12: Sodium Level 139, Potassium Level 4.1, Chloride Level 103, Carbon Dioxide Level 27, Anion Gap 9, Blood Urea Nitrogen 33H, Creatinine 0.99, Estimat Glomerular Filtration Rate 53, BUN/Creatinine Ratio 33, Glucose Level 91, Calcium Level 9.0 , Magnesium Level 2.2 10/19/19 05:00: White Blood Count 5.8, Red Blood Count 3.78L, Hemoglobin 11.5, Hematocrit 37, Mean Corpuscular Volume 98, Mean Corpuscular Hemoglobin 30, Mean Corpuscular Hemoglobin Concent 31L, Red Cell Distribution Width 13.6, Platelet Count 259, Mean Platelet Volume 10.9H, Creatinine 0.96 10/22/19 05:20: White Blood Count 5.1, Red Blood Count 3.58L, Hemoglobin 10.9L, Hematocrit 35, Mean Corpuscular Volume 96, Mean Corpuscular Hemoglobin 30, Mean Corpuscular Hemoglobin Concent 32, Red Cell Distribution Width 13.7, Platelet Count 305, Mean Platelet Volume 10.2, Neutrophils (%) (Auto) 69, Lymphocytes (%) (Auto) 10L , Monocytes (%) (Auto) 11, Eosinophils (%) (Auto) 8, Basophils (%) (Auto) 2, Neutrophils # (Auto) 3.5, Lymphocytes # (Auto) 0.5L, Monocytes # (Auto) 0.6, Eosinophils # (Auto) 0.4H, Basophils # (Auto) 0.1, Sodium Level 140, Potassium Level 4.1, Chloride Level 106, Carbon Dioxide Level 23, Anion Gap 11, Blood Urea Nitrogen 40H, Creatinine 1.02, Estimat Glomerular Filtration Rate 51, BUN/Creatinine Ratio 39, Glucose Level 88, Calcium Level 9.0, Corrected Calcium 9.3, Total Bilirubin 0.3, Aspartate Amino Transf (AST/SGOT) 11, Alanine Aminotransferase (ALT/SGPT) 19, Alkaline Phosphatase 96, Total Protein 6.0L, Albumin 3.6 Pending Labs Laboratory Tests 10/11/19 04:37: White Blood Count 7.7, Red Blood Count 4.25, Hemoglobin 12.6, Hematocrit 39, Mean Corpuscular Volume 93, Mean Corpuscular Hemoglobin 30, Mean Corpuscular Hemoglobin Concent 32, Red Cell Distribution Width 12.9, Platelet Count 206, Mean Platelet Volume 11.6, Neutrophils (%) (Auto) 76, Lymphocytes (%) (Auto) 7, Monocytes (%) (Auto) 9, Eosinophils (%) (Auto) 8, Basophils (%) (Auto) 1, Neutrophils # (Auto) 5.9, Lymphocytes # (Auto) 0.5, Monocytes # (Auto) 0.7, Eosinophils # (Auto) 0.6, Basophils # (Auto) 0.1, Sodium Level 140, Potassium Level 3.6, Chloride Level 106, Carbon Dioxide Level 22, Anion Gap 12, Blood Urea Nitrogen 20, Creatinine 0.80, Estimat Glomerular Filtration Rate > 60, BUN /Creatinine Ratio 25, Glucose Level 95, Calcium Level 9.2, Corrected Calcium 9.4, Total Bilirubin 0.5, Aspartate Amino Transf (AST/SGOT) 15, Alanine Aminotransferase (ALT/SGPT) 17, Alkaline Phosphatase 83, Total Protein 6.4, Albumin 3.8 10/12/19 06:47: White Blood Count 5.9, Red Blood Count 3.84, Hemoglobin 11.6, Hematocrit 36, Mean Corpuscular Volume 93, Mean Corpuscular Hemoglobin 30, Mean Corpuscular Hemoglobin Concent 32, Red Cell Distribution Width 12.9, Platelet Count 195, Mean Platelet Volume 11.0, Sodium Level 137, Potassium Level 3.4, Chloride Level 104, Carbon Dioxide Level 24, Anion Gap 9, Blood Urea Nitrogen 23, Creatinine 0.80, Estimat Glomerular Filtration Rate > 60, BUN/Creatinine Ratio 29, Glucose Level 120, Calcium Level 8.8, Corrected Calcium 9.1, Total Bilirubin 0.5, Aspartate Amino Transf (AST/SGOT) 16, Alanine Aminotransferase (ALT/SGPT) 20, Alkaline Phosphatase 85, Total Protein 5.9, Albumin 3.6, Magnesium Level 1.6, Thyroid Stimulating Hormone (TSH) 3.40 10/15/19 05:12: Sodium Level 139, Potassium Level 4.1, Chloride Level 103, Carbon Dioxide Level 27, Anion Gap 9, Blood Urea Nitrogen 33, Creatinine 0.99, Estimat Glomerular Filtration Rate 53, BUN/Creatinine Ratio 33, Glucose Level 91, Calcium Level 9.0, Magnesium Level 2.2 10/19/19 05:00: White Blood Count 5.8, Red Blood Count 3.78, Hemoglobin 11.5, Hematocrit 37, Mean Corpuscular Volume 98, Mean Corpuscular Hemoglobin 30, Mean Corpuscular Hemoglobin Concent 31, Red Cell Distribution Width 13.6, Platelet Count 259, Mean Platelet Volume 10.9, Creatinine 0.96 10/22/19 05:20: White Blood Count 5.1, Red Blood Count 3.58, Hemoglobin 10.9, Hematocrit 35, Mean Corpuscular Volume 96, Mean Corpuscular Hemoglobin 30, Mean Corpuscular Hemoglobin Concent 32, Red Cell Distribution Width 13.7, Platelet Count 305, Mean Platelet Volume 10.2, Neutrophils (%) (Auto) 69, Lymphocytes (%) (Auto) 10, Monocytes (%) (Auto) 11, Eosinophils (%) (Auto) 8, Basophils (%) (Auto) 2, Neut rophils # (Auto) 3.5, Lymphocytes # (Auto) 0.5, Monocytes # (Auto) 0.6, Eosinophils # (Auto) 0.4, Basophils # (Auto) 0.1, Sodium Level 140, Potassium Level 4.1, Chloride Level 106, Carbon Dioxide Level 23, Anion Gap 11, Blood Urea Nitrogen 40, Creatinine 1.02, Estimat Glomerular Filtration Rate 51, BUN/Creatinine Ratio 39, Glucose Level 88, Calcium Level 9.0, Corrected Calcium 9.3, Total Bilirubin 0.3, Aspartate Amino Transf (AST/SGOT) 11, Alanine Aminotransferase (ALT/SGPT) 19, Alkaline Phosphatase 96, Total Protein 6.0, Albumin 3.6 Discharge Home Medications: Active Scripts Active Furosemide 20 Mg Tablet 20 Mg PO DAILY Metoprolol Succinate 50 Mg Tab.er.24h 50 Mg PO BID Spironolactone 25 Mg Tablet 12.5 Mg PO DAILY 30 Days Reported B-12 (Cyanocobalamin (Vitamin B-12)) 1,000 Mcg Tablet 1,000 Mcg PO DAILY PRN Aspirin 81 Mg Tab.chew 81 Mg PO DAILY Entresto 24 mg-26 mg Tablet (Sacubitril/Valsartan) 1 Each Tablet 1 Tab PO BID Miralax (Polyethylene Glycol 3350) 17 Gm Powd.pack 17 Gm PO DAILY PRN Move Free Joint Health Tablet (Glucosam/Chond/Hyalu/Cf Borate) 1 Each Tablet 1 Tab PO DAILY Multivitamins (Multivitamin) 1 Each Tablet 1 Tab PO DAILY Lutein 40 Mg Capsule 40 Mg PO DAILY Amitriptyline HCl 25 Mg Tablet 25 Mg PO HS Instructions to patient/family Please see electronic discharge instructions given to patient. Diagnosis/Problems Diagnosis/Problems (1) Fall on same level Status: Acute (2) Congestive heart failure Status: Acute (3) B12 deficiency (4) Recurrent UTI (5) Hyperlipemia (6) PVD (peripheral vascular disease) (7) CAD (coronary artery disease) (8) Hypertension Status: Acute (9) Lung mass (10) Dizziness Status: Acute (11) Scalp hematoma Status: Acute (12) Scalp abrasion Status: Acute (13) Frequent falls Status: Acute Clinical Quality Measures DVT/VTE Risk/Contraindication: Risk Factor Score Per Nursin RFS Level Per Nursing on Admit: 4+=Very High COLLEEN OVIEDO DO Oct 22, 2019 10:14
--- NOTE | 2019-10-22 12:46 | Physical Therapy Daily Note ---
PT Daily Note-Current Subjective Patient in recliner pre tx, agrees to PT, has no complaints of pain. Patient is leaving today, need to test QC. Appearance Patient in recliner post tx with nurse call, phone, tray, all needs met. Mental Status Patient Orientation: Person, Place, Situation Transfers SCALE: Activities may be completed with or without assistive devices. 7-Gfzapqguhy-tyazmvm completes the activity by him/herself with no assistance from a helper. 5-Set-up or Clean-up Assistance-helper sets up or cleans up; patient completes activity. Reform assists only prior to or following the activity. 4-Supervision or Touching Assistance-helper provides verbal cues and/or touching/steadying and/or contact guard assistance as patient completes activity. Assistance may be provided throughout the activity or intermittently. 3-Partial/Moderate Assistance-helper does LESS THAN HALF the effort. Reform lifts, holds or supports trunk or limbs, but provides less than half the effort. 2-Substantial/Maximal Assistance-helper does MORE THAN HALF the effort. Reform lifts or holds trunk or limbs and provides more than half the effort. 3-Dhamcfyvd-nniicp does ALL the effort. Patient does none of the effort to complete the activity. Or, the assistance of 2 or more helpers is required for the patient to complete the activity. If activity was not attempted, code reason: 7-Patient Refused. 9-Not Applicable-not attempted and the patient did not perform the activity before the current illness, exacerbation or injury. 10-Not Attempted due to Environmental Limitations-(lack of equipment, weather restraints, etc.). 88-Not Attempted due to Medical Conditions or Safety Concerns. Roll Left & Right (QC): 7 Sit to Lying (QC): 7 Lying to Sitting/Side of Bed(Q: 7 Sit to Stand (QC): 6 Chair/Ncq-gr-Uxmuj Xfer(QC): 6 Toilet Transfer (QC): 6 Car Transfer (QC): 6 Patient performs transfers and car transfer with independence. Patient refuses to perform bed mobility and supine <-> sit,she says she never does it at home and wont do it now. Patient needs to use the restroom and does so without assist. Weight Bearing Full Weight Bearing Full Weight Bearing Gait Training Distance: 300', 150' Walk 10 feet (QC): 6 Walk 50 ft with 2 Turns(QC): 6 Walk 150 ft (QC): 6 Walking 10ft/uneven surface-QC: 6 Gait Assistive Device: FWW Patient can ambulate 300' with a rolling walker with independence (including 50' with at least 2 turns of 90 degrees and 10' over an uneven surface). Patient ambulates slowly and safely. Wheelchair Training Does the Pt Use a Wheelchair?: No Stair Training Stair Training: Handrails/: 1 handrail #of Steps: 4 1 Step (curb) (QC): 4 4 Steps (QC): 4 12 Steps (QC): 88 Stairs: Pattern: Step to Patient can go up and down 4 steps using 1 handrail with SBA. Patient goes up and down sideways with both hands on one rail. Balance Picking up an Object (QC): 4 Treatments transfers, ambulation, stair training Assessment Current Status: Fair Progress independent with transfers, patient is discharging from this facility today PT Short Term Goals Short Term Goals Time Frame: Oct 17, 2019 Roll Left & Right: 6 Sit to lyin Lying to sitting on side of be: 6 Sit to stand: 4 Chair/tuw-us-hngyv transfer: 4 Walk 10 feet: 4 Walk 50 feet with two turns: 4 Walk 150 feet: 4 PT Manager Of It Goals Correction Goals PT Manager Of It Goals Time Frame: Oct 31, 2019 Roll Left & Right (QC): 6 Sit to Lying (QC): 6 Lying-Sitting on Side/Bed(QC): 6 Sit to Stand (QC): 5 Chair/Aig-xy-Ehibo Xfer(QC): 5 Toilet Transfer (QC): 5 Car Transfer (QC): 5 Does the Patient Walk: Yes Walk 10 feet (QC): 5 Walk 50ft with 2 Turns (QC): 5 Walk 150 ft (QC): 5 Walking 10ft on Uneven Surface: 5 1 Step (curb) (QC): 4 4 Steps (QC): 4 12 Steps (QC): 88 Picking up an Object (QC): 88 Wheel 50 feet with 2 turns (QC: 9 Wheel 150 feet: 9 PT Plan Problem List Problem List: Activity Tolerance, Functional Strength, Safety, Balance, Gait, Transfer Treatment/Plan Treatment Plan: Discontinue PT Treatment Plan: Education, Functional Activity Desean, Functional Strength, Group Therapy, Gait, Safety, Therapeutic Exercise, Transfers Treatment Duration: Oct 31, 2019 Frequency: At least 5 of 7 days/Wk (IRF) Estimated Hrs Per Day: 1.5 hours per day Patient and/or Family Agrees t: Yes Safety Risks/Education Patient Education: Gait Training, Transfer Techniques, Steps, Correct Positioning, Safety Issues Teaching Recipient: Patient Teaching Methods: Demonstration, Discussion Response to Teaching: Reinforcement Needed Discharge Recommendations Plan DC Time/GCodes Time In: 1105 Time Out: 1120 Total Billed Treatment Time: 15 Total Billed Treatment 1 visit FA Derik' DIONNE MONTE PT Oct 22, 2019 12:46
--- NOTE | 2019-10-22 12:51 | Therapy Team Discharge Summary ---
Therapy Discharge Summary Discharge Recommendations Date of Discharge Physical Therapy Patient came to rehab following a fall. Upon evaluation patient performed bed mobility with SBA, supine <-> sit SBA, sit <-> stand min assist, transfers CGA, car transfer mod assist, ambulated 100' with a rolling walker with CGA (including 50' with at least 2 turns of 90 degrees and 10' over an uneven surface), and went up and down 1 step using a rolling walker with CGA. Patient has been performing bed mobility and transfer training, balance and endurance training, functional strengthening, stair training, gait training, and education. Patient has made fair progress and has met all of her fpc goals except for bed mobility (which she refuses to perform). Now, patient performs transfers and car transfer with independence, ambulates 300' with a rolling walker with independence (including 50' with at least 2 turns of 90 degrees and 10' over an uneven surface), can go up and down 4 steps using 1 handrail with SBA, and can bulk picker an object from the floor with SBA. Patient is discharging from this facility today and will be discharged from PT at this time. Occupational Therapy Decreased Activ Tolerance, Decreased UE Strength, Impaired I ADL's, Restricted Funct UE ROM PT Greens Planter Goals Greens Planter Goals PT Greens Planter Goals Time Frame: Oct 31, 2019 Roll Left to Right (QC): 6 Sit to Lying (QC): 6 Lying-Sitting on Side/Bed(QC): 6 Sit to Stand (QC): 5 Chair/Jch-dm-Dwyfd Xfer(QC): 5 Car Transfer (QC): 5 Does the Patient Walk: Yes Walk 10 feet (QC): 5 Walk 10ft-Uneven Surface(QC): 5 Walk 50ft with 2 Turns (QC): 5 Walk 150 ft (QC): 5 Wheel 50 feet with 2 turns (QC: 9 1 Step (curb) (QC): 4 4 Steps (QC): 4 12 Steps (QC): 88 Picking up an Object (QC): 88 OT Jail Goals Greens Planter Goals Time Frame: Oct 31, 2019 Eating (QC): 6 (met) Oral Hygiene (QC): 6 (met) Shower/Bathe Self (QC): 6 (not met, set up) Upper Body Dressing (QC): 6 (met) Lower Body Dressing (QC): 6 (met) On/Off Footwear (QC): 6 (met) Toileting Hygiene (QC): 6 (mtt) Toilet/Commode Transfer (QC): 5 Additional Goals: 1-Demonstrate ADL Tasks, 2-Verbalize Understanding, 3- ImproveStrength/Desean 1=Demonstrate adherence to instructed precautions during ADL tasks. 2=Patient will verbalize/demonstrate understanding of assistive devices/modifications for ADL. 3=Patient will improve strength/tolerance for activity to enable patient to perform ADL's. DIONNE MONTE PT Oct 22, 2019 12:51
[2019-10-22 14:24] VITALS: BP 122/70
--- NOTE | 2019-10-23 11:36 | Therapy Team Discharge Summary ---
Therapy Discharge Summary Discharge Recommendations Date of Discharge Oct 22, 2019 at 13:20 Occupational Therapy Pt admitted to [facility] s/p fall at home. At [facility], pt was independent with all ADLs, using walker for functional mobility. She has a amusement park ride mechanic every 2 weeks and meals delivered 4 days a week. At admission, pt required set up for eating, SBA oral hygiene, min A showering, set up upper body dressing, min A lower body dressing, min A footwear, min A toileting. OT txs focused on increasing safety and independence with ADLs and functional tasks, increasing BUE strength and functional endurance, and increasing fine motor strength. At discharge, pt was independent with all ADLs except showering where she required set up assistance. Pt reports having all AE needed at home, thus no further AE recommended at this time. Pt discharged from facility at this time, thus d/c from OT at this time. Decreased Activ Tolerance, Decreased UE Strength, Impaired I ADL's, Restricted Funct UE ROM PT Elevators Inspector Goals Shelter Goals PT Elevators Inspector Goals Time Frame: Oct 31, 2019 Roll Left to Right (QC): 6 Sit to Lying (QC): 6 Lying-Sitting on Side/Bed(QC): 6 Sit to Stand (QC): 5 Chair/Vyu-kv-Dldua Xfer(QC): 5 Car Transfer (QC): 5 Does the Patient Walk: Yes Walk 10 feet (QC): 5 Walk 10ft-Uneven Surface(QC): 5 Walk 50ft with 2 Turns (QC): 5 Walk 150 ft (QC): 5 Wheel 50 feet with 2 turns (QC: 9 1 Step (curb) (QC): 4 4 Steps (QC): 4 12 Steps (QC): 88 Picking up an Object (QC): 88 OT Elevators Inspector Goals Shelter Goals Time Frame: Oct 31, 2019 Eating (QC): 6 (met) Oral Hygiene (QC): 6 (met) Shower/Bathe Self (QC): 6 (not met, set up) Upper Body Dressing (QC): 6 (met) Lower Body Dressing (QC): 6 (met) On/Off Footwear (QC): 6 (met) Toileting Hygiene (QC): 6 (mtt) Toilet/Commode Transfer (QC): 5 Additional Goals: 1-Demonstrate ADL Tasks, 2-Verbalize Understanding, 3- ImproveStrength/Desean 1=Demonstrate adherence to instructed precautions during ADL tasks. 2=Patient will verbalize/demonstrate understanding of assistive devices/modifications for ADL. 3=Patient will improve strength/tolerance for activity to enable patient to perform ADL's. RENATA TY OT Oct 23, 2019 11:36
--- NOTE | 2019-10-23 14:32 | NUR ---
DC Quality Codes discussed with nursing staff. Nursing reports patient was up ad ju in room and was independent with bed mobility, including rolling left and right, sit to lying and lying to sitting. Discharge QC for these items should be 6.
== END 2019-10-22 13:20 | disposition home health service (06) | DRG 556 ==
PROVIDERS: ADMIT Internal Medicine; ATTEND Internal Medicine
DX: M62.81 Muscle weakness (generalized) (principal); I50.42 Chronic combined systolic (congestive) and diastolic (congestive) heart failure; R26.81 Unsteadiness on feet; Z91.81 History of falling; R53.83 Other fatigue; I11.0 Hypertensive heart disease with heart failure; I25.10 Atherosclerotic heart disease of native coronary artery without angina pectoris; I25.5 Ischemic cardiomyopathy; S00.03XD Contusion of scalp, subsequent encounter; G62.9 Polyneuropathy, unspecified; I08.1 Rheumatic disorders of both mitral and tricuspid valves; R00.0 Tachycardia, unspecified; I87.8 Other specified disorders of veins; R91.8 Other nonspecific abnormal finding of lung field; E78.5 Hyperlipidemia, unspecified; I73.9 Peripheral vascular disease, unspecified; K21.9 Gastro-esophageal reflux disease without esophagitis; M19.91 Primary osteoarthritis, unspecified site; M54.9 Dorsalgia, unspecified; E53.8 Deficiency of other specified B group vitamins; Z95.5 Presence of coronary angioplasty implant and graft; Z95.820 Peripheral vascular angioplasty status with implants and grafts; Z90.49 Acquired absence of other specified parts of digestive tract; Z90.89 Acquired absence of other organs; W19.XXXD Unspecified fall, subsequent encounter
CPT/HCPCS: 36415; 80048; 80053; 82565; 83735; 84443; 85025; 85027; 94664

== ENCOUNTER → 2019-11-01 | Outpatient (CLI) | payer MEDICARE ==
[~2019-11-01] MED LIST changes: +FURO20TA4 PO; +FURO40TA4 PO
== END ==
LOC: WOUNDCARE 09:03
PROVIDERS: ATTEND Surgery
DX: S01.01XA Laceration without foreign body of scalp, initial encounter (principal); S00.03XA Contusion of scalp, initial encounter; L98.493 Non-pressure chronic ulcer of skin of other sites with necrosis of muscle; W18.30XA Fall on same level, unspecified, initial encounter
CPT/HCPCS: 11042; G0463

== ENCOUNTER → 2019-11-08 | Outpatient (CLI) | payer MEDICARE | LOC: WOUNDCARE 09:51 | PROVIDERS: ATTEND Surgery | DX: I96 Gangrene, not elsewhere classified (principal); S00.03XA Contusion of scalp, initial encounter; L98.493 Non-pressure chronic ulcer of skin of other sites with necrosis of muscle; W18.30XA Fall on same level, unspecified, initial encounter | CPT/HCPCS: 11043 ==

== ENCOUNTER → 2019-11-15 | Outpatient (CLI) | payer MEDICARE | LOC: WOUNDCARE 09:59 | PROVIDERS: ATTEND Orthopaedic Surgery Hand Surgery | DX: S01.01XA Laceration without foreign body of scalp, initial encounter (principal); S00.03XA Contusion of scalp, initial encounter; L98.493 Non-pressure chronic ulcer of skin of other sites with necrosis of muscle; I96 Gangrene, not elsewhere classified; W18.30XA Fall on same level, unspecified, initial encounter | CPT/HCPCS: 11043; G0463 ==